=== PATIENT | male | born 1985 | race African-American/Black ===

== ENCOUNTER 2020-05-06 19:12 | Emergency (ER) | payer MEDICARE, MEDICAID, SELFPAY ==
[2020-05-06 19:13] VITALS: BP 156/103; PULSE 133; RESP 18; TEMP 36.6; O2SAT 98; BMI 23.3
--- NOTE | 2020-05-06 20:52 | ED.DCSUM_ITS ---
History of Present Illness Chief Complaint: Dental Informant: Patient Onset: Days Context: Gradual Onset Current Severity: Moderate Maximum Severity: Moderate Narrative: Presents with right-sided facial swelling for the past couple of days. States he had a mild tooth ache but nothing too severe. He then noted his face swelling. He does not believe he had a fever or chills. - Past Medical History (1) Diabetes Status: Chronic (2) Bipolar disorder Status: Chronic Past Medical History - Allergies and Home Meds Allergies/Adverse Reactions: Allergies No Known Allergies Allergy (Verified 05/06/20 20:18) Primary Care Physician: Care Physician,No Primary [Primary Care Provider] - Surgical History: no surgical history Smoking Status: Current every day smoker Review of Systems General: Denies: Chills, Fever Eyes: Denies: Visual changes - bilaterally ENT: Reports: - - Facial swelling. Denies: Bilateral ear pain Cardiovascular: Denies: Chest pain Respiratory: Denies: Dyspnea, Cough Gastrointestinal: Denies: Abdominal pain, Nausea, Vomiting, Diarrhea Musculoskeletal: Denies: Extremity Pain Neurological: Denies: Headache Hematologic: Denies: Easy bruising, Easy bleeding Allergy: Denies: Uticaria Physical Exam Vital Signs/Narrative: Vital Signs Temp Pulse Resp BP Pulse Ox 05/06/20 19:13 98 F 133 H 18 156/103 H 98 Inital Vital Signs reviewed: Yes General: Well nourished, Well developed Head: Normocephalic ENT: Moist mucous membranes, - - Facial swelling. No erythema. Right maxillary second molar is tender with a broken portion. Mild gum edema. No trismus. Normal posterior pharynx. Cardiovascular: Regular rate, Regular rhythm Respiratory: No distress, CTA bilaterally Abdomen: Soft, Nontender Skin: Normal color Neurological: Alert, Oriented x3 Psychological: Normal affect Diagnostic/Tx/Re-eval - Medical Decision Making Patient has a dentist in [place] that he will follow-up with. He will be treated with Pen-Vee K and a few [place] for breakthrough pain. He will continue ibuprofen at home. ED Disposition - Plan for ED Patient: Disposition: Home or Assisted Living Diagnosis: Dental abscess Instructions: ED ABSCESS DENTAL Prescriptions: Hydrocodone Bitart/Apap 5-325 [[place] 5MG-325MG] 1 tablet PO Q6H PRN PRN 3 Days #10 tablet PRN Reason: Pain Transmission Status: Sent to [id number] Penicillin V Potassium 500 mg PO 4X/DAY #40 tab Transmission Status: Pending to [id number] Additional Instructions: Follow-up with your dentist as soon as possible.
[2020-05-06] MEDS: HYDROcodone Bitartrate/Apap 5/325 Tablet PO (21:00)
[2020-05-06] MEDS: Penicillin Vk 250 MG Tablet 500 MG PO (21:00)
[2020-05-06 21:02] VITALS: BP 144/89; PULSE 88; RESP 17; O2SAT 98
== END 2020-05-06 21:03 | disposition home or self-care (01) ==
LOC: ED 20:58
PROVIDERS: Emergency Provider Emergency Medicine
DX: K04.7 Periapical abscess without sinus (principal); E11.9 Type 2 diabetes mellitus without complications; F31.9 Bipolar disorder, unspecified; F17.200 Nicotine dependence, unspecified, uncomplicated; Z79.84 Long term (current) use of oral hypoglycemic drugs; Z79.899 Other long term (current) drug therapy
CPT/HCPCS: 99283

== ENCOUNTER 2021-02-28 05:49 | Emergency (ER) | payer MEDICARE, MEDICAID, SELFPAY ==
[2021-02-28] VITALS (14 sets, daily range): BP systolic 120–155; BP diastolic 71–95; PULSE 77–104; RESP 12–18; TEMP 36.6–37.4; O2SAT 98–100; BMI 24.2
--- NOTE | 2021-02-28 05:51 | EKG12_ITS ---
Test Reason : DYSRHYTHMIA Blood Pressure : / mmHG Vent. Rate : 099 BPM Atrial Rate : 099 BPM P-R Int : 148 ms QRS Dur : 066 ms QT Int : 310 ms P-R-T Axes : 076 012 044 degrees QTc Int : 397 ms Normal sinus rhythm Septal [place], age undetermined, cannot be excluded Confirmed by BEN IVERSON, CARLOS ([id number]), editor index JOSEPH SINGH ([id number]) on 03/05/2021 8:26:31 AM Referred By: MOOSE Confirmed By:CARLOS CONTRERAS MD
--- NOTE | 2021-02-28 05:52 | ED.VIS.GEN ---
History of Present Illness Chief Complaint: Suicidal Informant: Patient Narrative: 35-year-old male with past medical history of bipolar disorder presents with concern for suicidal ideations worsening over the past 3 days. States that he lost his insurance and did not have any money for his medications. States is been intermittently over the past month or so. States that he has been having thoughts of killing himself with a knife. States he did have a knife one-point was going to cut his throat or his wrists. Denies any medication ingestion or attempts today. States he is a current smoker but denies any drug or alcohol abuse. Denies any other physical complaints at this time. Past Medical History - Allergies and Home Meds Allergies/Adverse Reactions: Allergies No Known Allergies Allergy (Verified 02/28/21 05:50) Primary Care Physician: Care Physician,No Primary [Primary Care Provider] - Prior records reviewed: Yes Past Medical History: - - bipolar disorder Surgical History: no surgical history Lives: Alone Smoking Status: Current every day smoker Alcohol: None Drugs: None Review of Systems General: Denies: Chills, Fever, Sweats Eyes: Denies: Visual changes - bilaterally, Diplopia ENT: Denies: Rhinorrhea, Sore throat Cardiovascular: Denies: Chest pain, Palpitations Respiratory: Denies: Dyspnea, Cough, Dyspnea on exertion Gastrointestinal: Denies: Abdominal pain, Nausea, Vomiting, Diarrhea, Melena, Hematochezia Genitourinary: Denies: Dysuria, Hematuria, Frequency Musculoskeletal: Denies: Back pain, Extremity Pain Skin: Denies: Rash, Wounds Neurological: Denies: Headache, Weakness, Numbness Psych: Reports: Suicidal thoughts, Suicidal ideations Physical Exam Inital Vital Signs reviewed: Yes General: Well nourished, Well developed, No Acute Distress Head: Normocephalic, Atraumatic Eyes: Perrl, EOMI ENT: Moist mucous membranes, No rhinorrhea Neck: Supple, Nontender Cardiovascular: Regular rate, Regular rhythm, No murmurs Respiratory: No distress, CTA bilaterally, Chest nontender Abdomen: Soft, Nontender, Nondistended, Normal bowel sounds Back: Nontender, Normal Inspection Extremities: Nontender, No edema Skin: Normal color, No rash Neurological: Alert, Oriented x3, Cranial nerves II-XII grossly intact, Normal Strength, Normal Sensation Psychological: Normal affect, Tearful Diagnostic/Tx/Re-eval Laboratory Data 02/28/21 02/28/21 02/28/21 05:53 06:00 06:00 WBC 10.1 RBC 4.99 Hgb 14.4 Hct 43.7 MCV 87.6 MCH 28.9 MCHC 33.0 RDW Std Deviation 39.6 RDW Coeff of [place] 12.3 Plt Count 388 MPV 9.4 Immature Gran % (Auto) 0.600 Neut % (Auto) 54.8 Lymph % (Auto) 33.9 [place] % (Auto) 8.3 Eos % (Auto) 1.7 Baso % (Auto) 0.7 Absolute Neuts (auto) 5.5 Absolute Lymphs (auto) 3.42 Nucleated RBC % 0 Sodium 127 L Potassium 4.1 Chloride 92 L Carbon Dioxide 27.0 Anion Gap 8 BUN 25 H Creatinine 1.45 H Estim Creat Clear Calc 64.17 Est GFR (MDRD) Af Amer 71 Est GFR (MDRD) Non-Af 59 L BUN/Creatinine Ratio 17.2 Glucose 551 H* Calcium 9.3 Urine Color Urine Clarity Urine pH Ur Specific [place] Urine Protein Urine Glucose (UA) Urine Ketones Urine Occult Blood Urine Nitrite Urine Bilirubin Urine Urobilinogen Ur Leukocyte Esterase Urine RBC Urine WBC Ur Squamous Epith Cells Urine Bacteria Urine Mucus Urine Opiates Screen Urine Methadone Screen Ur Barbiturates Screen Ur Phencyclidine Scrn Ur Amphetamines Screen U Methamphetamin-MDMA U Benzodiazepines Scrn Urine Cocaine Screen U Cannabinoids Screen Ur Drug Screen Comment Ethyl Alcohol POC Glucose > 500 H* 02/28/21 02/28/21 02/28/21 06:00 06:10 06:10 WBC RBC Hgb Hct MCV MCH MCHC RDW Std Deviation RDW Coeff of [place] Plt Count MPV Immature Gran % (Auto) Neut % (Auto) Lymph % (Auto) [place] % (Auto) Eos % (Auto) Baso % (Auto) Absolute Neuts (auto) Absolute Lymphs (auto) Nucleated RBC % Sodium Potassium Chloride Carbon Dioxide Anion Gap BUN Creatinine Estim Creat Clear Calc Est GFR (MDRD) Af Amer Est GFR (MDRD) Non-Af BUN/Creatinine Ratio Glucose Calcium Urine Color Yellow Urine Clarity Clear Urine pH 6.0 Ur Specific [place] 1.010 Urine Protein 15 H Urine Glucose (UA) 1000 H Urine Ketones 5 H Urine Occult Blood Negative Urine Nitrite Positive H Urine Bilirubin Negative Urine Urobilinogen Normal Ur Leukocyte Esterase Negative Urine RBC 0 SEEN Urine WBC 0 SEEN Ur Squamous Epith Cells 0 SEEN Urine Bacteria 0 SEEN Urine Mucus 0 SEEN Urine Opiates Screen NEGATIVE Urine Methadone Screen NEGATIVE Ur Barbiturates Screen NEGATIVE Ur Phencyclidine Scrn NEGATIVE Ur Amphetamines Screen POSITIVE H U Methamphetamin-MDMA NEGATIVE U Benzodiazepines Scrn NEGATIVE Urine Cocaine Screen NEGATIVE U Cannabinoids Screen NEGATIVE Ur Drug Screen Comment Ethyl Alcohol < 3.0 POC Glucose - Rhythm Strip Rhythm Strip: Sinus Rhythm Rate: 99 Ectopy: None - EKG Initial EKG Interpretation: Sinus Rhythm - Minute. FL interval of 148 ms. QTC of 397 ms. No evidence of ST elevation or depression at this time. - Medical Decision Making Patient appears well and nontoxic. Mild tachycardia upon arrival which is resolved on my exam. Normotensive. Physical exam benign. Patient is found to have significant hyperglycemia without DKA. Patient was previously on Metformin but cannot remember when. Patient's urine is positive for nitrites. Will be treated with Rocephin and 2 L of normal saline. Patient also found to have an acute renal insufficiency. Discussed this case with the hospitalist, Dr. Kern, who advised fluid resuscitation and rechecking the labs. If back to normal can be admitted safely to the psychiatric facility. Patient signed out to oncoming physician, Dr. Beach, at 0730. Stable at time of handoff. Impression: 1. Hyperglycemia 2. Acute renal insufficiency 3. UTI 4. Suicidal ideation ED Disposition - Plan for ED Patient: Disposition: Acute Care Hospital [facility] Referrals: Care Physician,No Primary [Primary Care Provider] -
[2021-02-28 05:55] LABS: Bedside Glucose > 500 mg/dL (70-110)
[2021-02-28 06:04] LABS: Absolute Lymphocyte Count 3.42 X10^3/uL (0.83-4.51); Absolute Neutrophil Count 5.5 X10^3/uL (2.0-7.7); Basophil# 0.07 X10^3/uL; Basophil% 0.7 % (0-1); Eosinophil# 0.17 X10^3/uL; Eosinophils% 1.7 % (0-5); Hematocrit 43.7 % (40-54); Hemoglobin 14.4 g/dL (13.0-16.5); Lymphocyte # 3.42 X10^3/ul (0.83-4.51); Lymphocyte % 33.9 % (19-41); Mean Corpuscular Hgb 28.9 pg (27.0-32.0); Mean Corpuscular Volume 87.6 fL (80-94); Mean Platelet Vol. 9.4 fl (6.2-12.0); Monocyte# 0.84 X10^3/uL; Monocyte% 8.3 % (0-10); NRBC Flagged by Analyzer 0 % (0-5); Neutrophil # 5.54 X10^3/uL (2.7-7.7); Neutrophil % 54.8 % (47-70); Platelet Count 388 K/mm3 (150-450); RBC Distribution Width CV 12.3 % (11.6-14.6); RBC Distribution Width SD 39.6 fl (35.1-43.9); Red Blood Count 4.99 M/mm3 (4.6-6.2); White Blood Count 10.1 K/mm3 (4.4-11.0)
[2021-02-28 06:15] LABS: Bacteria 0 SEEN /hpf (None Seen); Mucous, Urine 0 SEEN /hpf (<or=2+); Red Blood Cells-Urine 0 SEEN /hpf (0-5); Squamous Epithelial Cells - UA 0 SEEN /hpf (0-5); White Blood Cells 0 SEEN /hpf (0-5)
[2021-02-28] MEDS: 0.9% Normal Saline 1,000 ML 999 ML IV ×2 (06:15→06:48)
[2021-02-28 06:17] LABS: Color, Urine Yellow (Yellow); Glucose, Dipstick 1000 mg/dl (Normal); Ketone-Dipstick 5 mg/dl (Negative); Leukocyte Esterase-Dipstick Negative /ul (Negative); Nitrite-Dipstick Positive (Negative); Occult Blood-Urine Negative /ul (Negative); Protein-Dipstick 15 mg/dl (Negative); Urine Bilirubin Dipstick Negative (Negative); Urine Clarity Clear (Clear); Urine Urobilinogen Normal (Normal)
[2021-02-28 06:22] LABS: Alcohol, Blood (Medical)-Serum < 3.0 mg/dL; Anion Gap 8 (5-15); BUN 25 mg/dL (7-18); BUN/Creat Ratio 17.2 RATIO (10-20); Calcium,Total 9.3 mg/dL (8.5-10.1); Chloride 92 mmol/L (98-107); Creatinine, Serum 1.45 mg/dL (0.70-1.30); EST Glomerular Filtration Rate 59 mL/min (>60); Est Glom Filt Rate - Afr Amer 71 mL/min (>60); Estimated Creatinine Clearance 64.17 ml/min; Glucose 551 mg/dL (74-106); Potassium 4.1 mmol/L (3.5-5.1); Sodium Level 127 mmol/L (136-145)
[2021-02-28 06:29] LABS: Amphetamine Urine VISTA POSITIVE (<1000 ng/mL); Barbiturate Urine VISTA NEGATIVE (< 200 ng/mL); Benzodiazepine Urine VISTA NEGATIVE (< 200 ng/mL); Cocaine Urine VISTA NEGATIVE (< 300 ng/mL); Ecstacy Urine VISTA NEGATIVE (< 500 ng/mL); Methadone Urine VISTA NEGATIVE (< 300 ng/mL); PCP Urine VISTA NEGATIVE (< 25 ng/mL); THC Urine VISTA NEGATIVE (< 50 ng/mL); Vista UDS pH Range 5
[2021-02-28] MEDS: Ceftriaxone 1 GM/50 ML BAG IV (06:48)
[2021-02-28] MEDS: Insulin Lispro 100 UNIT/ML INSULN.PEN 10 UNIT SC ×3 (07:15→18:10)
[2021-02-28 08:27] LABS: Bedside Glucose 319 mg/dL (70-110)
[2021-02-28] MEDS: 0.9% Normal Saline 1,000 ML 150 ML IV (09:00)
[2021-02-28 09:54] LABS: Anion Gap 5 (5-15); BUN 20 mg/dL (7-18); BUN/Creat Ratio 20.8 RATIO (10-20); Calcium,Total 8.1 mg/dL (8.5-10.1); Chloride 104 mmol/L (98-107); Creatinine, Serum 0.96 mg/dL (0.70-1.30); EST Glomerular Filtration Rate 94 mL/min (>60); Est Glom Filt Rate - Afr Amer 114 mL/min (>60); Estimated Creatinine Clearance 96.92 ml/min; Glucose 288 mg/dL (74-106); Potassium 3.5 mmol/L (3.5-5.1); Sodium Level 136 mmol/L (136-145)
--- NOTE | 2021-02-28 11:03 | ED.RN ---
CALLED AND NOTIFIED CRISIS THAT THE PT IS MEDICALLY CLEARED
[2021-02-28 11:06] LABS: Bedside Glucose 293 mg/dL (70-110)
--- NOTE | 2021-02-28 11:07 | ED.RN ---
FAXED DEMOGRAPHIC TO [facility]
--- NOTE | 2021-02-28 11:28 | ED.RN ---
FAXED CHART TO [facility]IS[facility]
[2021-02-28 13:46] LABS: Bedside Glucose 405 mg/dL (70-110)
--- NOTE | 2021-02-28 13:48 | ED.RN ---
[facility]ISIS AT BEDSIDE
[2021-02-28 17:36] LABS: Bedside Glucose 297 mg/dL (70-110)
--- NOTE | 2021-02-28 19:38 | ED.RN ---
PENDING [facility]
--- NOTE | 2021-02-28 20:14 | ED.RN ---
PENDING AT [facility]
--- NOTE | 2021-02-28 23:07 | ED.RN ---
We monica till not doing the maintenance fluids IV at this time
[2021-03-01] VITALS (11 sets, daily range): BP systolic 131–146; BP diastolic 78–98; PULSE 71–94; RESP 13–84; TEMP 36.6–36.9; O2SAT 97–100
--- NOTE | 2021-03-01 05:02 | ED.RN ---
PENDING AT [facility]
[2021-03-01 05:03] LABS: CPK Total, Creatine Kinase 102 U/L (39-308)
[2021-03-01 06:45] LABS: Bedside Glucose 206 mg/dL (70-110)
--- NOTE | 2021-03-01 07:11 | ED.RN ---
states he has not taken any medications in months but had been on abilify and metformin, as added to current med list. States he took a little ortiz pill too but no sure of the name
[2021-03-01] MEDS: metFORMIN HCl 500 MG Tablet PO (08:05)
--- NOTE | 2021-03-01 08:43 | ED.RN ---
FAXED COVID SCREENING FORM AND NEGATIVE COVID TEST RESULT TO [facility]
--- NOTE | 2021-03-01 09:29 | ED.RN ---
FAXED PINK SLIP TO [facility]
--- NOTE | 2021-03-01 10:26 | CM.ED ---
SOCIAL WORK Received call from Kandace with Crisis. Patient accepted to [facility] by Dr. Zambrano to the Dual Dx Unit. Nurse to call report to [phone]. Squaring Machine Operator to call report. Plan: [facility] Zeke Rehman, JUNIOR BUSINESS ANALYST, AIR EXPORT OPERATIONS AGENT
== END 2021-03-01 11:43 ==
PROVIDERS: Emergency Medicine; Emergency Provider Emergency Medicine
DX: F31.9 Bipolar disorder, unspecified (principal); R45.851 Suicidal ideations; N39.0 Urinary tract infection, site not specified; Z20.822 Contact with and (suspected) exposure to COVID-19; R73.9 Hyperglycemia, unspecified; N28.9 Disorder of kidney and ureter, unspecified; F17.200 Nicotine dependence, unspecified, uncomplicated; Z79.84 Long term (current) use of oral hypoglycemic drugs; Z79.899 Other long term (current) drug therapy
CPT/HCPCS: 36415; 80048; 80307; 81001; 82077; 82550; 82962; 85025; 87086; 87426; 93005; 96361; 96374; 99285; J7030; A4216

== ENCOUNTER 2024-01-25 18:51 | Emergency (ER) | payer MEDICARE, MEDICAID, SELFPAY ==
[2024-01-25] VITALS (10 sets, daily range): BP systolic 165–202; BP diastolic 90–125; PULSE 85–109; RESP 12–20; TEMP 35.9–36.7; O2SAT 93–100; BMI 22.5
[2024-01-25 20:12] LABS: Absolute Lymphocyte Count 2.82 X10^3/uL (0.83-4.51); Absolute Neutrophil Count 9.3 X10^3/uL (2.0-7.7); Basophil# 0.06 X10^3/uL; Basophil% 0.5 % (0-1); Eosinophil# 0.05 X10^3/uL; Eosinophils% 0.4 % (0-5); Hematocrit 44.7 % (40-54); Lymphocyte # 2.82 X10^3/ul (0.83-4.51); Lymphocyte % 21.7 % (19-41); Mean Corp Hgb Conc 33.6 g/dL (32-36); Mean Corpuscular Hgb 28.5 pg (27.0-32.0); Mean Corpuscular Volume 84.8 fL (80-94); Mean Platelet Vol. 9.7 fl (6.2-12.0); Monocyte# 0.69 X10^3/uL; Monocyte% 5.3 % (0-10); NRBC Flagged by Analyzer 0 % (0-5); Neutrophil % 71.6 % (47-70); Platelet Count 365 K/mm3 (150-450); RBC Distribution Width CV 12.9 % (11.6-14.6); RBC Distribution Width SD 39.9 fl (35.1-43.9); Red Blood Count 5.27 M/mm3 (4.6-6.2)
--- NOTE | 2024-01-25 20:21 | ED.VIS.GI ---
HPI HPI - GI History of Present Illness Chief Complaint: Abd Pain Detail of Chief Complaint: Abdominal pain with nausea and vomiting x 15 Informant: patient and spouse/S.O. Abdominal Pain/Flank Pain Onset: Yesterday Context: Sudden Onset Timing: Continuous Quality: Aching and Dull Location: RUQ and RLQ Current Severity: Moderate Maximum Severity: Severe Worsened by: Car ride and Movement Relieved by: Nothing Nausea/Vomiting/Emesis GI Symptom: Positive for Nausea and Vomiting (Per 15 times since midnight) Diarrhea/Melena/Hematochezia GI Symptom: Negative for Diarrhea, Melena or Hematochezia Associated Symptoms Associated Symptoms: Negative for Dysuria, Frequency, Hematuria or Urgency Narrative Narrative: Patient is a 38-year-old male with past medical history of type 2 diabetes and bipolar affective disorder who presents with abdominal pain that started upper abdomen and now also complains of right lower quadrant abdominal pain. Has had nausea vomiting x 10-15 per . He has no appetite. He cannot find a position of comfort. He denies flank pain. He denies history of renal or ureterolithiasis. He denies dysuria, frequency, urgency or hematuria. He says movement causes him pain. The car right also caused him pain. He denied fever or chills. Denies headache, visual, ocular auditory symptoms. He denies cardiac or respiratory symptoms. He denies myalgias or arthralgias. He had no ill contacts. He has not noted skin lesions. He denies trauma. Prior similar symptoms: No Recent Illness/Hospitalization: No PFSH PFS Medical History (Updated 01/25/24 @ 23:[address] Ryan Mccracken MD) Bipolar 1 disorder Diabetes mellitus Schizo-affective schizophrenia Home Medications glipizide 10 mg tablet, extended release 24 hr 10 mg PO DAILY 01/25/24 [History Last Taken Unknown] lisinopril 10 mg tablet 10 mg PO DAILY #30 tabs 01/25/24 [Rx Last Taken Unknown] Allergy/AdvReac Type Severity Reaction Status Date / Time No Known Allergies Allergy Verified 02/28/21 05:50 Social History (Updated 01/25/24 @ 21:[address] Ryan Mccracken MD) household members: spouse Smoking Status: Current every day smoker tobacco type: cigarettes ROS ROS ED Constitutional Constitutional ED: Reports chills and sweats; Denies fever(s) or subjective ENT ENT ED: Denies ear pain, rhinorrhea or sore throat Cardiovascular Cardiovascular: Denies chest pain, orthopnea, palpitations, paroxysmal nocturnal dyspnea or racing heartbeat Respiratory/Chest Respiratory/Chest: Denies cough, dyspnea, dyspnea on exertion, orthopnea, paroxysmal nocturnal dyspnea or sputum Gastrointestinal Gastrointestinal: Reports abdominal pain and nausea; Denies constipation, diarrhea or melena Genitourinary Genitourinary ED: Denies dysuria, hematuria or urinary frequency Musculoskeletal Musculoskeletal: Denies arthralgias, back pain, myalgias or neck pain Integumentary Denies rash Neurologic Neurologic: Denies headache(s), paresthesias or weakness Psychiatric Psychiatric: Denies anxiety or depression Endocrine Endocrinology: Denies polydipsia, polyphagia or polyuria Hematologic/Lymphatic Hematologic/Lymphatic: Denies easy bleeding or easy bruising EXAM Physical Exam Const Vital Signs: 01/25/24 18:51 01/25/24 19:55 01/25/24 20:55 Temperature 96.6 F L Temperature Source Temporal Pulse Rate 102 H 102 H 109 H Respiratory Rate 20 H 20 H 18 Blood Pressure 195/125 H 165/90 H 190/102 H Blood Pressure Mean 148 115 131 Pulse Ox 100 99 100 Oxygen Delivery Method Room Air Room Air Room Air 01/25/24 21:00 01/25/24 21:12 01/25/24 21:56 Temperature 97.5 F L Temperature Source Oral Pulse Rate 94 93 99 Respiratory Rate 12 16 18 Blood Pressure 202/117 H 186/111 H 182/96 H Blood Pressure Mean 145 136 124 Pulse Ox 99 93 100 Oxygen Delivery Method Room Air Room Air Room Air 01/25/24 22:19 Temperature 97.5 F L Temperature Source Pulse Rate 89 Respiratory Rate 20 H Blood Pressure 178/108 H Blood Pressure Mean 131 Pulse Ox 99 Oxygen Delivery Method Patient's had multiple elevated blood pressure readings. This may be due to pain. He is not any hypertensive meds. Since he is tachycardic we will give low-dose of labetalol. Positive well nourished and well developed Constitutional Narrative: Patient appears uncomfortable and ill. General Appearance ED: well developed; Negative for NAD or pallor HEENT Reports TM's clear and dry mucous membranes normocephalic and atraumatic Tympanic Membrane ED: Yes TM's clear Mouth ED: Yes dry mucous membranes Mouth: dry mucous membranes Eyes PERRL and EOMs intact bilaterally General Eye ED: Negative for pale conjunctiva or scleral icterus Resp normal respiratory effort and clear to auscultation bilaterally Cardio regular rhythm, S1 normal heart sound and S2 normal heart sound Rate: tachycardic GI no masses; Negative for non-tender or non-distended GI Narrative: Wrist template upper abdomen more so than lower. Inspection: abdominal distention Auscultation: hypoactive bowel sounds Palpation: tender RLQ (Tenderness is greater right lower quadrant and in the proximity of McBurney's point.) and RUQ and guarding RLQ; Negative for rigid, hepatomegaly, splenomegaly, hernia, mass or pulsatile mass Back/Spine no CVA tenderness Back/Spine Narrative: Inspection of the back is normal. Extremity full ROM General Extremety ED: Negative for edema or tenderness General Extremity: Negative for edema Neuro CN's II-XII intact bilaterally and moves all extremities Sensorium / Orientation: alert Psych mental status grossly normal and thought process normal Skin no wounds General Skin Exam: Negative for jaundice or pallor Lesions: no lesions Rashes: no rashes MDM MDM MDM Narrative Medical decision making narrative: Differential diagnosis is gastritis, abdominal pain unknown etiology, atypical presentation for cholelithiasis with colic, appendicitis, ureterolithiasis. Will obtain CBC, hepatic profile, lipase and electrolyte panel. Patient has been medicated with opiate analgesic as well as Zofran for his nausea and vomiting. Lab Data Attestation: I reviewed the patient's lab results. Lab results narrative: Count is elevated with shift. There is no bandemia. Hepatic profile is unremarkable. Lipase is normal. Labs: Laboratory Results - last 24 hr 01/25/24 01/25/24 01/25/24 19:50 19:50 19:50 WBC 13.0 H RBC 5.27 Hgb 15.0 Hct 44.7 MCV 84.8 MCH 28.5 MCHC 33.6 RDW Std Deviation 39.9 RDW Coeff of [place] 12.9 Plt Count 365 MPV 9.7 Immature Gran % (Auto) 0.500 Neut % (Auto) 71.6 H Lymph % (Auto) 21.7 [place] % (Auto) 5.3 Eos % (Auto) 0.4 Baso % (Auto) 0.5 Absolute Neuts (auto) 9.3 H Absolute Lymphs (auto) 2.82 Nucleated RBC % 0 Sodium 136 Potassium 3.8 Chloride 101 Carbon Dioxide 21.0 Anion Gap 14 BUN 19 H Creatinine 1.05 Estim Creat Clear Calc 85.54 Est GFR (MDRD) Af Amer 102 Est GFR (MDRD) Non-Af 84 BUN/Creatinine Ratio 18.1 Glucose 278 H Calcium 9.6 Total Bilirubin 0.50 0.50 Direct Bilirubin 0.06 AST 31 31 ALT 18 Alkaline Phosphatase Total Protein Albumin Globulin Albumin/Globulin Ratio Lipase Urine Color Urine Clarity Urine pH Ur Specific [place] Urine Protein Urine Glucose (UA) Urine Ketones Urine Occult Blood Urine Nitrite Urine Bilirubin Urine Urobilinogen Ur Leukocyte Esterase Urine RBC Urine WBC Ur Squamous Epith Cells Urine Bacteria Urine Mucus 01/25/24 01/25/24 01/25/24 19:50 19:50 19:50 WBC RBC Hgb Hct MCV MCH MCHC RDW Std Deviation RDW Coeff of [place] Plt Count MPV Immature Gran % (Auto) Neut % (Auto) Lymph % (Auto) [place] % (Auto) Eos % (Auto) Baso % (Auto) Absolute Neuts (auto) Absolute Lymphs (auto) Nucleated RBC % Sodium Potassium Chloride Carbon Dioxide Anion Gap BUN Creatinine Estim Creat Clear Calc Est GFR (MDRD) Af Amer Est GFR (MDRD) Non-Af BUN/Creatinine Ratio Glucose Calcium Total Bilirubin Direct Bilirubin AST ALT 18 Alkaline Phosphatase 89 92 Total Protein 9.2 H 9.2 H Albumin 4.2 Globulin Albumin/Globulin Ratio Lipase Urine Color Urine Clarity Urine pH Ur Specific [place] Urine Protein Urine Glucose (UA) Urine Ketones Urine Occult Blood Urine Nitrite Urine Bilirubin Urine Urobilinogen Ur Leukocyte Esterase Urine RBC Urine WBC Ur Squamous Epith Cells Urine Bacteria Urine Mucus 01/25/24 01/25/24 01/25/24 19:50 19:50 22:00 WBC RBC Hgb Hct MCV MCH MCHC RDW Std Deviation RDW Coeff of [place] Plt Count MPV Immature Gran % (Auto) Neut % (Auto) Lymph % (Auto) [place] % (Auto) Eos % (Auto) Baso % (Auto) Absolute Neuts (auto) Absolute Lymphs (auto) Nucleated RBC % Sodium Potassium Chloride Carbon Dioxide Anion Gap BUN Creatinine Estim Creat Clear Calc Est GFR (MDRD) Af Amer Est GFR (MDRD) Non-Af BUN/Creatinine Ratio Glucose Calcium Total Bilirubin Direct Bilirubin AST ALT Alkaline Phosphatase Total Protein Albumin 4.2 Globulin 5.0 H 5.0 H Albumin/Globulin Ratio 0.8 L Lipase 37 Urine Color Yellow Urine Clarity Clear Urine pH 7.0 Ur Specific [place] 1.010 Urine Protein 30 H Urine Glucose (UA) 1000 H Urine Ketones 150 A* Urine Occult Blood 25 H Urine Nitrite Negative Urine Bilirubin Negative Urine Urobilinogen Normal Ur Leukocyte Esterase Negative Urine RBC 0-5 SEEN Urine WBC 0 SEEN Ur Squamous Epith Cells 0 SEEN Urine Bacteria 0 SEEN Urine Mucus 0 SEEN Radiography Diagnostic Testing: Clinical Impression(s) from Imaging Studies Abdomen/Pelvis CT 01/25/24 21:25 IMPRESSION: 1. Urinary bladder distention may be transient/physiologic. Correlate clinically. 2. Mildly prominent bilateral inguinal lymph nodes, perhaps reactive. Electronically Signed: Gurdeep Osuna DO at 22:04 EDT , Management Discussion w/another healthcare provider: Hospitalist (Dr. Hollins was made aware for admission to [facility] and Display Artist (Case discussed with Dr. Argueta. Is made aware of patient's findings, abdominal exam, white count and CT findings. Recommend admission with IV antibiotics and he will see him in consultation.) Treatment and Re-Evaluation :: With greatest area of discomfort right lower quadrant with elevated white count normal liver enzymes will obtain CT of the abdomen and pelvis with IV contrast to assess for appendicitis versus mesenteric adenitis versus regional colitis Comments:: Patient and were informed of results. He was asked regarding cannabis use. He does use cannabis regularly. I informed him that this may be due to the cannabis. He does not have history hypertension. Patient had numerous elevated blood pressure readings even though he is no longer having symptoms. Will start on low-dose of lisinopril. Discharge Plan Triage Chief Complaint: Abd Pain ED Provider: Ryan Mccracken Dx/Rx/DC Orders Clinical Impression: Cannabis hyperemesis syndrome concurrent with and due to cannabis abuse, Acute dehydration, Type 2 diabetes mellitus with hyperglycemia, Acute prerenal azotemia, Ketosis, Hypertension, Abdominal pain, acute, generalized Instructions: Cannabinoid Hyperemesis Syndrome, ED Dehydration (Adult), ED Hypertension New Begin Treatment Prescriptions: New lisinopril 10 mg tablet 10 mg PO DAILY Qty: 30 0RF No Action glipizide 10 mg tablet extended release 24hr 10 mg PO DAILY Primary Care Provider: Heena Barbosa Referrals: Heena Barbosa, GEOSPATIAL DEVELOPER-C [Primary Care Provider] - 1-2 Weeks Disposition Disposition: Home, Self Care
[2024-01-25 20:55] LABS: ALB/GLOB Ratio 0.8 RATIO (0.9-2.4); AST(SGOT) 31 U/L (15-37); Alanine Aminotransfer ALT/SGPT 18 U/L (16-61); Albumin, Serum 4.2 g/dL (3.2-5.0); Alkaline Phosphatase 89 U/L (45-117); Anion Gap 14 (5-15); BUN 19 mg/dL (7-18); BUN/Creat Ratio 18.1 RATIO (10-20); Calcium,Total 9.6 mg/dL (8.5-10.1); Chloride 101 mmol/L (98-107); Creatinine, Serum 1.05 mg/dL (0.70-1.30); EST Glomerular Filtration Rate 84 mL/min (>60); Est Glom Filt Rate - Afr Amer 102 mL/min (>60); Estimated Creatinine Clearance 85.54 ml/min; Glucose 278 mg/dL (74-106); Potassium 3.8 mmol/L (3.5-5.1); Protein, Total 9.2 g/dL (6.4-8.2); Sodium Level 136 mmol/L (136-145)
[2024-01-25] MEDS: Morphine 4 MG/ML Syringe IV ×2 (20:57→22:29)
[2024-01-25] MEDS: Ondansetron 4 MG/2 ML Vial IV (20:57)
[2024-01-25] MEDS: 0.9% Normal Saline (1000mL) 1,000 ML 1000 ML IV (20:57)
[2024-01-25 21:09] LABS: AST(SGOT) 31 U/L (15-37); Alanine Aminotransfer ALT/SGPT 18 U/L (16-61); Albumin, Serum 4.2 g/dL (3.2-5.0); Alkaline Phosphatase 92 U/L (45-117); Bilirubin, Direct 0.06 mg/dL (0.00-0.30); Lipase 37 U/L (13-75); Protein, Total 9.2 g/dL (6.4-8.2)
--- NOTE | 2024-01-25 21:25 | CT_ITS ---
EXAM: CT ABDOMEN AND PELVIS WITH INTRAVENOUS CONTRAST CLINICAL INDICATION: Leukocytosis and right lower quadrant abdominal pa TECHNIQUE: Helically acquired images were obtained of the abdomen and pelvis with intravenous contrast. This CT exam was performed using one or more of the following dose reduction techniques: automated exposure control, adjustment of the mA and/or kV according to patient size, and/or use of iterative reconstruction technique. CONTRAST: IV 100mL Isovue-300 COMPARISON: CT abdomen and pelvis, 01/29/2015. FINDINGS: LOWER THORAX: No significant abnormality. Lung bases are clear. No cardiomegaly. No significant pericardial effusion. ABDOMEN: LIVER: No significant abnormality. Homogeneous. No focal mass. GALLBLADDER AND BILE DUCTS: No significant abnormality. No calcified gallstones. No gallbladder distention or wall edema. No intra- or extrahepatic biliary ductal dilation. PANCREAS: No significant abnormality. No focal cystic or solid mass. SPLEEN: No significant abnormality. Normal size without focal cystic or solid mass. ADRENALS: No significant abnormality. No nodules. KIDNEYS AND URETERS: No significant abnormality. Normal renal size and position. No hydronephrosis. STOMACH AND BOWEL: No significant abnormality. No stomach or bowel distention. No focal inflammatory change. PELVIS: APPENDIX: Normal appendix in the right lower quadrant. BLADDER: Urinary bladder distention may be transient/physiologic. REPRODUCTIVE: Normal as visualized. No mass. ABDOMEN and PELVIS: INTRAPERITONEAL SPACE: No significant abnormality. No ascites or other fluid collection. No free air. BONES/JOINTS: No significant abnormality. No suspicious lytic or blastic abnormality. SOFT TISSUES: No significant abnormality. No discrete abdominal or pelvic wall hernia. VASCULATURE: No significant abnormality. Abdominal aorta is non-dilated. LYMPH NODES: Mildly prominent bilateral inguinal lymph nodes, perhaps reactive. CT/Abdomen/Pelvis W IV Cont ONLY IMPRESSION: 1. Urinary bladder distention may be transient/physiologic. Correlate clinically. 2. Mildly prominent bilateral inguinal lymph nodes, perhaps reactive. Electronically Signed: Gurdeep Osuna DO at 22:04 EDT ,
[2024-01-25] MEDS: Labetalol (Prefilled) 20 MG/4 ML 10 MG IV (21:54)
[2024-01-25 22:04] LABS: Bacteria 0 SEEN /hpf (None Seen); Mucous, Urine 0 SEEN /hpf (<or=2+); Squamous Epithelial Cells - UA 0 SEEN /hpf (0-5); White Blood Cells 0 SEEN /hpf (0-5)
[2024-01-25 22:06] LABS: Color, Urine Yellow (Yellow); Glucose, Dipstick 1000 mg/dl (Normal); Leukocyte Esterase-Dipstick Negative /ul (Negative); Nitrite-Dipstick Negative (Negative); Occult Blood-Urine 25 /ul (Negative); Protein-Dipstick 30 mg/dl (Negative); Urine Bilirubin Dipstick Negative (Negative); Urine Clarity Clear (Clear); Urine Urobilinogen Normal (Normal)
[2024-01-25 22:10] LABS: Ketone-Dipstick 150 mg/dl (Negative)
[2024-01-25 22:11] LABS: Red Blood Cells-Urine 0-5 SEEN /hpf (0-5)
[2024-01-25] MEDS: Lisinopril 10 MG Tablet PO (23:20)
== END 2024-01-25 23:42 | disposition home or self-care (01) ==
PROVIDERS: Emergency Provider Emergency Medicine; PCP Nurse Practitioner Family; Visit Provider Emergency Medicine
DX: R11.2 Nausea with vomiting, unspecified (principal); F25.9 Schizoaffective disorder, unspecified; F31.9 Bipolar disorder, unspecified; E11.65 Type 2 diabetes mellitus with hyperglycemia; E88.89 Other specified metabolic disorders; R10.84 Generalized abdominal pain; F12.10 Cannabis abuse, uncomplicated; I10 Essential (primary) hypertension; E86.0 Dehydration; F17.210 Nicotine dependence, cigarettes, uncomplicated
CPT/HCPCS: 96361; 96374; 96375; 96376; 99285; 74177; 80053; 80076; 81001; 83690; 85025; J7030; J7040; Q9967; J2405

== ENCOUNTER 2024-01-27 11:29 | Inpatient (IN) | payer MEDICARE, MEDICAID, SELFPAY ==
[2024-01-27] VITALS (12 sets, daily range): BP systolic 132–192; BP diastolic 87–108; PULSE 78–133; RESP 15–31; TEMP 36.6–37.2; O2SAT 96–100; BMI 22.1; BMI 22.3
--- NOTE | 2024-01-27 11:48 | US_ITS ---
STUDY: ABDOMINAL ULTRASOUND - RIGHT UPPER QUADRANT REASON FOR VISIT: Male, 38 years old right upper quadrant pain. TECHNIQUE: Ultrasound evaluation of the right upper quadrant was performed with real-time and static ortiz-scale imaging. TECHNICAL QUALITY: Adequate. COMPARISON: Comparison is made with prior CT scan of the abdomen the January 25, 2024. FINDINGS: Liver: The liver measures 15 cm. There is normal echogenicity of the liver. The bile ducts are within normal limits. There is hepatic color flow. The direction of portal flow is hepatopetal. There is no demonstrated mass lesion. Gallbladder: Normal distended gallbladder. The gallbladder wall measures 4 mm. There is a negative sonographic Mata''s sign. There is no pericholecystic fluid. There are no gallstones. Common Bile Duct (C.B.D.): The common bile duct measures 2 mm. Pancreas: Normal size of the head, body and tail of the pancreas. There is normal echogenicity of the pancreas. There is no demonstrated pancreatic mass or cyst. Right Kidney: Normal size of the right kidney. The right kidney measures 11.1 cm x 5.8 cm x 5.8 cm. Normal renal cortex. The right cortex measures 1.5 cm. There is no demonstrated renal mass or cyst. There is no right hydronephrosis. US/Gallbladder IMPRESSION: Normal right upper quadrant ultrasound examination. Electronically Signed: Nicola Her MD at 13:10 EDT ,
--- NOTE | 2024-01-27 12:02 | EDS_ITS ---
HPI <RIGOBERTO Ward - Last Filed: 01/27/24 15:29> HPI - GI History of Present Illness Chief Complaint: Abd Pain Narrative Narrative: Patient presenting today due to right upper quadrant abdominal pain that he has had over the past 4 days. He also reports nausea and vomiting. He reports that he was here on 01/25/2024 and had a workup done and was told that this was likely due to his cannabis use, however he has never had symptoms like this before and reports that he has not used cannabis in a week. He then went to [place] [facility] yesterday where they performed another CT scan, fabricio blood, and gave him IV fluids and nausea medication. He did not feel as bad yesterday and was able to tolerate fluids and was discharged home. Today he saw his PCP who encouraged him to come back into the ER. He has had very little to eat/drink over the past few days due to his pain and nausea. He denies any history of abdominal surgeries, fevers, chills, hematemesis, and diarrhea. PFSH <RIGOBERTO Ward - Last Filed: 01/27/24 15:29> [facility] Medical History Bipolar 1 disorder Diabetes mellitus Schizo-affective schizophrenia Home Medications glipizide 10 mg tablet, extended release 24 hr 10 mg PO DAILY BLOOD SUGARS [History Last Taken 01/25/24] lisinopril 10 mg tablet 10 mg PO DAILY BLOOD PRESSURE #30 tabs 01/25/24 [Rx Last Taken Unknown] pioglitazone 15 mg tablet 15 mg PO DAILY BLOOD SUGARS 01/27/24 [History Last Taken 01/25/24] Allergy/AdvReac Type Severity Reaction Status Date / Time No Known Allergies Allergy Verified 01/27/24 11:30 Family History unable to obtain Social History household members: spouse Smoking Status: Current some day smoker tobacco type: cigarettes ROS <RIGOBERTO Ward - Last Filed: 01/27/24 15:29> ROS ED Constitutional Constitutional ED: Denies chills or fever(s) Cardiovascular Cardiovascular: Denies chest pain Respiratory/Chest Respiratory/Chest: Denies cough or dyspnea Gastrointestinal Gastrointestinal: Reports abdominal pain, nausea and vomiting; Denies constipation, diarrhea or melena Genitourinary Genitourinary ED: Denies dysuria, hematuria or urinary urgency Musculoskeletal Musculoskeletal: Denies arthralgias or myalgias Integumentary Denies rash Neurologic Neurologic: Denies weakness EXAM <RIGOBERTO Ward - Last Filed: 01/27/24 15:29> Physical Exam Const Vital Signs: 01/27/24 11:30 01/27/24 12:18 01/27/24 13:42 Temperature 99 F 98.0 F Temperature Source Temporal Oral Pulse Rate 133 H 120 H 92 Respiratory Rate 26 H 31 H 15 Blood Pressure 174/106 H 192/108 H 181/102 H Blood Pressure Mean 128 136 128 Pulse Ox 100 100 99 Oxygen Delivery Method Room Air Room Air Room Air 01/27/24 13:58 01/27/24 14:01 01/27/24 15:00 Temperature 97.8 F Temperature Source Axillary Pulse Rate 85 88 102 H Respiratory Rate 17 16 Blood Pressure 168/98 H 132/95 H 183/108 H Blood Pressure Mean 121 107 133 Pulse Ox 98 98 Oxygen Delivery Method Room Air Room Air Positive well nourished, well developed and no apparent distress General Appearance ED: well developed HEENT Reports normocephalic and head/scalp atraumatic Mouth ED: Yes moist mucous membranes normal Eyes PERRL and EOMs intact bilaterally Neck full ROM and supple Chest Wall inspection of chest normal Resp normal respiratory effort and clear to auscultation bilaterally Cardio regular rate and regular rhythm GI soft to palpation, non-distended and no masses GI Narrative: Tenderness to the right upper quadrant, no rigidity, guarding, or peritoneal signs. Negative Mata sign. Back/Spine normal ROM and normal to inspection Extremity normal to inspection and full ROM Neuro oriented x3, CN's II-XII intact bilaterally, moves all extremities, no focal motor deficits and no sensory deficits noted Sensorium / Orientation: awake and alert Psych mental status grossly normal and thought process normal Skin no rashes or lesions noted and no wounds <Dr. Connie Hermosillo MD - Last Filed: 01/27/24 15:19> Physical Exam Const Vital Signs: 01/27/24 11:30 01/27/24 12:18 01/27/24 13:42 Temperature 99 F 98.0 F Temperature Source Temporal Oral Pulse Rate 133 H 120 H 92 Respiratory Rate 26 H 31 H 15 Blood Pressure 174/106 H 192/108 H 181/102 H Blood Pressure Mean 128 136 128 Pulse Ox 100 100 99 Oxygen Delivery Method Room Air Room Air Room Air 01/27/24 13:58 01/27/24 14:01 01/27/24 15:00 Temperature 97.8 F Temperature Source Axillary Pulse Rate 85 88 102 H Respiratory Rate 17 16 Blood Pressure 168/98 H 132/95 H 183/108 H Blood Pressure Mean 121 107 133 Pulse Ox 98 98 Oxygen Delivery Method Room Air Room Air [facility] <RIGOBERTO Ward - Last Filed: 01/27/24 15:29> [facility] Narrative Medical decision making narrative: Patient presenting with right upper quadrant abdominal pain he has had over the past 4 days. Increased nausea and vomiting, is concerned for dehydration as she is having a hard time getting him to eat/drink. This is his third visit now in a emergency department. The last time he was here on 01/24 the note did mention that the ED physician had spoke to GI as well as the hospitalist and that he was going to be admitted, however he was discharged home, patient does not know why he was discharged home. He does appear uncomfortable, he is tachycardic and hypertensive. He will be given IV fluids, Zofran, morphine, and Toradol. Labs will be obtained as well as a right upper quadrant ultrasound. Labs showed a WBC of 12.9, sodium 132, BUN 22, glucose 322. When patient was here on 01/24 the attending did speak with Dr. Argueta who recommended starting ciprofloxacin and Flagyl, this will be given today. Gallbladder ultrasound unremarkable. On examination patient is comfortably sleeping and looks much improved. Blood pressure was elevated, I did order labetalol to give but blood pressure did improve and this was put on hold. Given this is his third ER visit in the past 3 days I do think he would benefit from admission to the hospital. Will speak with the hospitalist to have patient admitted in stable condition. Lab Data Attestation: I reviewed the patient's lab results. Labs: Laboratory Results - last 24 hr 01/27/24 12:15 WBC 12.9 H RBC 5.32 Hgb 14.9 Hct 44.8 MCV 84.2 MCH 28.0 MCHC 33.3 RDW Std Deviation 40.4 RDW Coeff of [place] 13.2 Plt Count 375 MPV 9.8 Immature Gran % (Auto) 0.400 Neut % (Auto) 65.5 Lymph % (Auto) 26.1 Hale % (Auto) 7.0 Eos % (Auto) 0.5 Baso % (Auto) 0.5 Absolute Neuts (auto) 8.4 H Absolute Lymphs (auto) 3.36 Nucleated RBC % 0 Sodium 132 L Potassium 4.0 Chloride 100 Carbon Dioxide 17.0 L Anion Gap 15 BUN 22 H Creatinine 1.15 Estim Creat Clear Calc 76.75 Est GFR (MDRD) Af Amer 91 Est GFR (MDRD) Non-Af 76 BUN/Creatinine Ratio 19.1 Glucose 322 H Calcium 9.6 Total Bilirubin 0.70 AST 17 ALT 15 L Alkaline Phosphatase 91 Total Protein 9.2 H Albumin 4.2 Globulin 5.0 H Albumin/Globulin Ratio 0.8 L Lipase 47 Urine Color Yellow Urine Clarity Clear Urine pH 5.0 Ur Specific [place] 1.025 Urine Protein 30 H Urine Glucose (UA) 1000 H Urine Ketones 150 A* Urine Occult Blood 50 H Urine Nitrite Negative Urine Bilirubin Negative Urine Urobilinogen Normal Ur Leukocyte Esterase Negative Urine RBC 5-10 SEEN Urine WBC 0 SEEN Ur Squamous Epith Cells 0 SEEN Urine Bacteria 0 SEEN Urine Mucus 0 SEEN <Dr. Connie Hermosillo MD - Last Filed: 01/27/24 15:19> [facility] Lab Data Labs: Laboratory Results - last 24 hr 01/27/24 12:15 WBC 12.9 H RBC 5.32 Hgb 14.9 Hct 44.8 MCV 84.2 MCH 28.0 MCHC 33.3 RDW Std Deviation 40.4 RDW Coeff of [place] 13.2 Plt Count 375 MPV 9.8 Immature Gran % (Auto) 0.400 Neut % (Auto) 65.5 Lymph % (Auto) 26.1 Hale % (Auto) 7.0 Eos % (Auto) 0.5 Baso % (Auto) 0.5 Absolute Neuts (auto) 8.4 H Absolute Lymphs (auto) 3.36 Nucleated RBC % 0 Sodium 132 L Potassium 4.0 Chloride 100 Carbon Dioxide 17.0 L Anion Gap 15 BUN 22 H Creatinine 1.15 Estim Creat Clear Calc 76.75 Est GFR (MDRD) Af Amer 91 Est GFR (MDRD) Non-Af 76 BUN/Creatinine Ratio 19.1 Glucose 322 H Calcium 9.6 Total Bilirubin 0.70 AST 17 ALT 15 L Alkaline Phosphatase 91 Total Protein 9.2 H Albumin 4.2 Globulin 5.0 H Albumin/Globulin Ratio 0.8 L Lipase 47 Urine Color Yellow Urine Clarity Clear Urine pH 5.0 Ur Specific [place] 1.025 Urine Protein 30 H Urine Glucose (UA) 1000 H Urine Ketones 150 A* Urine Occult Blood 50 H Urine Nitrite Negative Urine Bilirubin Negative Urine Urobilinogen Normal Ur Leukocyte Esterase Negative Urine RBC 5-10 SEEN Urine WBC 0 SEEN Ur Squamous Epith Cells 0 SEEN Urine Bacteria 0 SEEN Urine Mucus 0 SEEN Treatment and Re-Evaluation :: Patient seen and evaluated with TITA. I personally interviewed and examined the patient. I was involved in all aspects of patient's orders, interpretation of results, and treatment. Patient returns to the ER secondary to continued abdominal pain with nausea and vomiting. He was seen in the ER 2 days ago. Plan had been to admit him with IV antibiotics given some lymphadenopathy in his pelvis, however he was inadvertently discharged. Patient went to [place] ER yesterday where he got IV fluids and insulin. He presented to PCPs office this morning with continued vomiting and was sent back for admission. Patient complains of right upper q uadrant abdominal pain. Patient lying in bed in obvious discomfort. Head and neck examination unremarkable. Heart is tachycardic and regular. Lung sounds are grossly clear. Abdomen is soft with tenderness to the right upper quadrant. No palpable masses. He has no guarding or rebound at the time of my exam. He has mild tenderness in the suprapubic region. There was concern a couple days ago about possible urinary retention. I asked nursing staff to get a bladder scan but they stated it was not reading. They placed a Anderson catheter only got about 200 cc of urine out. Lab work reveals continued white count of 12.9, consistent with prior value. Differential is unremarkable. Chemistry studies significant for a sodium of 132, bicarb of 17, BUN 22, creatinine 1.15. Glucose is 322. Urinalysis reveals 1000 glucose and 150 ketones. No sign of infection. Patient CT scan from [place] 2 days ago as well as [place] yesterday is reviewed. Right upper quadrant ultrasound obtained today and reveals no acute gallbladder abnormalities. Patient was to be on Cipro and Flagyl and that is ordered for him again. Will speak with hospitalist regarding admission and GI consult as it had been the plan on the . Discharge Plan Triage Chief Complaint: Abd Pain ED Midlevel Provider: Krystina Clifton ED Provider: Connie Hermosillo Dx/Rx/DC Orders Clinical Impression: Acute dehydration, Type 2 diabetes mellitus with hyperglycemia, Nausea & vomiting, Hypertension, Abdominal pain, acute, generalized Prescriptions: No Action glipizide 10 mg tablet extended release 24hr 10 mg PO DAILY lisinopril 10 mg tablet 10 mg PO DAILY Qty: 30 0RF Patient Comments: THIS IS A NEWLY PRESCRIBED MEDICATION THAT THE PT HAS NOT YET STARTED/PICKED UP FROM THE PHARMACY ( OF 01/27/24) pioglitazone 15 mg tablet 15 mg PO DAILY Primary Care Provider: Heena Barbosa Referrals: Heena Barbosa, SK[facility]-C [Primary Care Provider] - Disposition Disposition: Acute Care Hospital [facility]
[2024-01-27] MEDS: Ondansetron 4 MG/2 ML Vial IV ×2 (12:06→19:34)
[2024-01-27] MEDS: Morphine 4 MG/ML Syringe IV (12:06)
[2024-01-27] MEDS: 0.9% Normal Saline (1000mL) 1,000 ML 1000 ML IV (12:07)
[2024-01-27 12:24] LABS: Absolute Lymphocyte Count 3.36 X10^3/uL (0.83-4.51); Absolute Neutrophil Count 8.4 X10^3/uL (2.0-7.7); Bacteria 0 SEEN /hpf (None Seen); Basophil# 0.06 X10^3/uL; Basophil% 0.5 % (0-1); Eosinophil# 0.06 X10^3/uL; Eosinophils% 0.5 % (0-5); Hematocrit 44.8 % (40-54); Hemoglobin 14.9 g/dL (13.0-16.5); Lymphocyte # 3.36 X10^3/ul (0.83-4.51); Lymphocyte % 26.1 % (19-41); Mean Corp Hgb Conc 33.3 g/dL (32-36); Mean Corpuscular Volume 84.2 fL (80-94); Mean Platelet Vol. 9.8 fl (6.2-12.0); Mucous, Urine 0 SEEN /hpf (<or=2+); NRBC Flagged by Analyzer 0 % (0-5); Neutrophil # 8.43 X10^3/uL (2.7-7.7); Neutrophil % 65.5 % (47-70); Platelet Count 375 K/mm3 (150-450); RBC Distribution Width CV 13.2 % (11.6-14.6); RBC Distribution Width SD 40.4 fl (35.1-43.9); Red Blood Count 5.32 M/mm3 (4.6-6.2); Squamous Epithelial Cells - UA 0 SEEN /hpf (0-5); White Blood Cells 0 SEEN /hpf (0-5); White Blood Count 12.9 K/mm3 (4.4-11.0)
[2024-01-27 12:31] LABS: Color, Urine Yellow (Yellow); Glucose, Dipstick 1000 mg/dl (Normal); Leukocyte Esterase-Dipstick Negative /ul (Negative); Nitrite-Dipstick Negative (Negative); Occult Blood-Urine 50 /ul (Negative); Protein-Dipstick 30 mg/dl (Negative); Specific Gravity, Urine 1.025 (1.002-1.030); Urine Bilirubin Dipstick Negative (Negative); Urine Clarity Clear (Clear); Urine Urobilinogen Normal (Normal)
[2024-01-27 12:37] LABS: Ketone-Dipstick 150 mg/dl (Negative)
[2024-01-27 12:38] LABS: Red Blood Cells-Urine 5-10 SEEN /hpf (0-5)
[2024-01-27 12:46] LABS: ALB/GLOB Ratio 0.8 RATIO (0.9-2.4); AST(SGOT) 17 U/L (15-37); Alanine Aminotransfer ALT/SGPT 15 U/L (16-61); Albumin, Serum 4.2 g/dL (3.2-5.0); Alkaline Phosphatase 91 U/L (45-117); Anion Gap 15 (5-15); BUN 22 mg/dL (7-18); BUN/Creat Ratio 19.1 RATIO (10-20); Calcium,Total 9.6 mg/dL (8.5-10.1); Chloride 100 mmol/L (98-107); Creatinine, Serum 1.15 mg/dL (0.70-1.30); EST Glomerular Filtration Rate 76 mL/min (>60); Est Glom Filt Rate - Afr Amer 91 mL/min (>60); Estimated Creatinine Clearance 76.75 ml/min; Glucose 322 mg/dL (74-106); Lipase 47 U/L (13-75); Protein, Total 9.2 g/dL (6.4-8.2); Sodium Level 132 mmol/L (136-145)
[2024-01-27] MEDS: Ketorolac 15 MG/ML Vial IV (13:11)
[2024-01-27] MEDS: Ciprofloxacin 400 MG/200 ML BAG 200 MG IV (13:55)
[2024-01-27] MEDS: 0.9% Normal Saline (1000mL) 1,000 ML 999 ML IV (13:55)
--- NOTE | 2024-01-27 15:03 | PCM.HP.STD ---
HPI - General General Date of Admission: 01/27/24 Date of Service: 01/27/24 Chief Complaint: Intractable nausea and vomiting HPI Narrative DILSHAD PULIDO, is a 38 M who presented to [facility] ED on 01/27/2024 with intractable nausea and vomiting. Patient seen at bedside in the ED. Patient sitting up fairly comfortably in bed, conversing normally, no acute distress. Patient is very pleasant and provides a good history. Patient states that his nausea and vomiting started somewhat abruptly about 4 days ago. He then began to have pain in the right upper quadrant or right lower quadrant of his abdomen. He came to the ED on 01/[address] abdomen pelvis was done at that time and was essentially normal. Labs are notable for a mild leukocytosis, hyperglycemia with blood glucose 278, UA that showed 1000 glucose, 150 urine ketones but acid-base status was normal and findings were otherwise fairly benign. He had borderline sinus tachycardia and was quite hypertensive at that time as well. He had some improvement in his symptoms with IV fluids, Zofran and morphine. He was started on low-dose lisinopril and discharged at that time. Over the last few days, patient has continued to have some episodes of nausea/vomiting and abdominal pain. He essentially has not eaten anything over the past 3 to 4 days. States he has very minimal appetite. Because his symptoms did not improve, he came to the ED today for further evaluation. Vitals were again notable for fairly significant hypertension and mild tachycardia. Labs again showed hyperglycemia with blood glucose 322 and similar UA findings, but bicarb was 17 and he had a mild anion gap. He was given 2 L of IV fluids in the ED as well as Zofran and morphine with some improvement in symptoms. He currently denies any abdominal pain or discomfort. Denies any fevers or chills. Denies any significant change in bowel movements. Denies any lightheadedness or dizziness. No other acute concerns at this time. Due to his intractable nausea/vomiting and abdominal pain and mild DKA, hospitalist is contacted for admission. On further review, patient was diagnosed with diabetes back in 2014 in his late 20s. His A1c was 13.9% at that time. He remembers having some polyuria and polydipsia at that time but otherwise did not have significant symptoms. He was slightly heavier at that time but BMI was still likely less than 30. He has intermittently been on oral medications for his diabetes since then. Diabetes has been managed by his PCP he states. He was on metformin for a while, but recently this was discontinued because he reported worsening nausea and vomiting over the past 1 to 2 months to his PCP. His regimen since then has been glipizide 10 mg daily and Actos 15 mg daily. In general, patient states that his vision has steadily been getting worse over the past few years with some blurry vision. He has noticed increasing episodes of numbness/tingling and electric type shocks in his feet, worse on the right foot. He is also noticed that his stomach does not seem to be emptying as quickly as normal and he has had less of an appetite because of this. Patient does smoke marijuana on a daily basis but has been doing this since age 13. Does not smoke cigarettes. Denies any alcohol use. Denies any other drug use. [facility] Medical History Bipolar 1 disorder Diabetes mellitus Schizo-affective schizophrenia Home Medications glipizide 10 mg tablet, extended release 24 hr 10 mg PO DAILY BLOOD SUGARS 01/25/24 [History Last Taken 01/25/24] lisinopril 10 mg tablet 10 mg PO DAILY BLOOD PRESSURE #30 tabs 01/25/24 [Rx Last Taken Unknown] pioglitazone 15 mg tablet 15 mg PO DAILY BLOOD SUGARS 01/27/24 [History Last Taken 01/25/24] Allergy/AdvReac Type Severity Reaction Status Date / Time No Known Allergies Allergy Verified 01/27/24 11:30 Family History unable to obtain Social History household members: spouse Smoking Status: Current some day smoker tobacco type: cigarettes ROS Constitutional Constitutional: Reports fatigue; Denies chills, fever(s) or weakness Eyes Eyes: Reports blurry vision and change in vision Cardiovascular Cardiovascular: Denies chest pain, dyspnea on exertion, edema, lightheadedness or palpitations Respiratory/Chest Respiratory/Chest: Denies cough, shortness of breath at rest, shortness of breath with exertion or wheezing Gastrointestinal Gastrointestinal: Reports abdominal pain, dyspepsia, nausea and vomiting; Denies constipation or diarrhea Genitourinary Genitourinary: Denies dysuria Musculoskeletal Musculoskeletal: Denies arthralgias, back pain or myalgias Neurologic Neurologic: Reports numbness, paresthesias and tingling; Denies abnormal gait, disequilibrium, dizziness, focal weakness, headache(s) or tremor(s) Endocrine Endocrinology: Denies polydipsia or polyuria Vital Signs Vital Signs Vital Signs: 01/27/24 11:30 01/27/24 12:18 01/27/24 13:42 Temperature 99 F 98.0 F Temperature Source Temporal Oral Pulse Rate 133 H 120 H 92 Respiratory Rate 26 H 31 H 15 Blood Pressure 174/106 H 192/108 H 181/102 H Blood Pressure Mean 128 136 128 Pulse Ox 100 100 99 Oxygen Delivery Method Room Air Room Air Room Air 01/27/24 13:58 01/27/24 14:01 Temperature Temperature Source Pulse Rate 85 88 Respiratory Rate 17 Blood Pressure 168/98 H 132/95 H Blood Pressure Mean 121 107 Pulse Ox 98 Oxygen Delivery Method Room Air Weight Weight: 62.3 kg Body Mass Index (BMI) 22.1 Physical Exam Const alert, oriented x3, no apparent distress and average body habitus Constitutional Narrative: Pleasant younger male, sitting up comfortably in bed, conversing normally, in no acute distress. General Appearance: cooperative and comfortable HEENT normocephalic, head/scalp atraumatic, hearing grossly normal bilaterally and nasal mucous membranes and turbinates normal Eyes PERRL, EOMs intact bilaterally and conjunctivae normal Neck full ROM Chest inspection of chest normal Resp normal respiratory effort, normal air movement, no use of accessory muscles and clear to auscultation bilaterally Cardio no murmurs and peripheral pulses 2+ throughout Cardio Narrative: Tachycardic, regular rhythm. GI GI Narrative: Mildly tender to palpation diffusely. Otherwise soft and nondistended. Back/Spine normal ROM Extremity normal to inspection, full ROM and no pedal edema Skin no rashes or lesions noted Neuro moves all extremities and no focal motor deficits Neuro Narrative: Decreased sensation noted in the right foot. Speech: speech normal Psych mental status grossly normal Results Lab / Micro Data 01/27/24 12:15 01/27/24 12:15 Labs: Laboratory Results - last 24 hr 01/27/24 12:15: WBC 12.9 H, RBC 5.32, Hgb 14.9, Hct 44.8, MCV 84.2, MCH 28.0, MCHC 33.3, RDW Std Deviation 40.4, RDW Coeff of [place] 13.2, Plt Count 375, MPV 9.8, Immature Gran % (Auto) 0.400, Neut % (Auto) 65.5, Lymph % (Auto) 26.1, [place] % (Auto) 7.0, Eos % (Auto) 0.5, Baso % (Auto) 0.5, Absolute Neuts (auto) 8.4 H, Absolute Lymphs (auto) 3.36, Nucleated RBC % 0, Sodium 132 L, Potassium 4.0, Chloride 100, Carbon Dioxide 17.0 L, Anion Gap 15, BUN 22 H, Creatinine 1.15, Estim Creat Clear Calc 76.75, Est GFR (MDRD) Af Amer 91, Est GFR (MDRD) Non-Af 76, BUN/Creatinine Ratio 19.1, Glucose 322 H, Calcium 9.6, Total Bilirubin 0.70, AST 17, ALT 15 L, Alkaline Phosphatase 91, Total Protein 9.2 H, Albumin 4.2, Globulin 5.0 H, Albumin/Globulin Ratio 0.8 L, Lipase 47, Urine Color Yellow, Urine Clarity Clear, Urine pH 5.0, Ur Specific [place] 1.025, Urine Protein 30 H, Urine Glucose (UA) 1000 H, Urine Ketones 150 A*, Urine Occult Blood 50 H, Urine Nitrite Negative, Urine Bilirubin Negative, Urine Urobilinogen Normal, Ur Leukocyte Esterase Negative, Urine RBC 5-10 SEEN, Urine WBC 0 SEEN, Ur Squamous Epith Cells 0 SEEN, Urine Bacteria 0 SEEN, Urine Mucus 0 SEEN Assessment & Plan Assessment/Plan (1) DKA (diabetic ketoacidoses): (2) Type 2 diabetes mellitus with hyperglycemia: (3) Hypertension: PLAN: Plan Patient is a 38-year-old male who presented to [facility] ED on 01/27/2024 with intractable nausea and vomiting and abdominal pain. 1. Mild DKA, poorly controlled diabetes mellitus with hyperglycemia, suspected diabetic neuropathy and concern for gastroparesis ? Mild DKA on admit as evidenced by glucose 322, sodium 132, bicarb 17, anion gap 15, urine ketones 150, nausea/vomiting and poor appetite on admit. ? Diagnosed with diabetes in 2014, A1c 13.9% at that time. Has been treated like type 2 diabetes but patient was in late 20s and had fairly thin body habitus at that time. No A1c's recorded in our system after that. Was on metformin for a time, current medications now glipizide 10 mg daily and pioglitazone 15 mg daily. Patient reports good compliance with these meds. ? Have high concern that patient has had uncontrolled diabetes for many years that has now led to complications including diabetic neuropathy, diabetic retinopathy, proteinuria, and possible gastroparesis. ? A1c 11.1% on admit. Patient was given 2 L of IV normal saline in the ED, as well as Humalog 10 units x 1 dose. ? Admit under inpatient status to [facility]. Will start Lantus 15 units at night and sliding-scale insulin with meals for now, adjust as needed. Follow-up BMP tonight and again tomorrow morning. Will hold on further IV fluids for now, encouraged p.o. intake. Will start gabapentin 100 mg 3 times daily for neuropathy. 4-hour gastric emptying study ordered. Nutrition and bistro server consulted. Depending on gastric emptying study results, can consider GI consult. 2. Hypertension ? Patient was found to be very hypertensive in the ED on 01/24, has remained hypertensive on this ED visit. Denies any previous diagnosis of hypertension but does report having a strong family history of hypertension. ? Suspect patient has essential hypertension given his BP readings have remained high despite him appearing very comfortable on exam. ? Will start lisinopril 5 mg daily and amlodipine 5 mg daily now. IV hydralazine every 4 hours as needed ordered as well. Monitor BP closely, adjust regimen as needed. 3. Mild leukocytosis ? WBC count 12.9 on admit. Suspect reactive in setting of mild DKA, low concern for active infection. Was given doses of ciprofloxacin and Flagyl in the ED for concern for gastroenteritis, will hold on further antibiotics for now. Follow-up a.m. CBC. 4. Proteinuria ? Presumed secondary to poorly controlled diabetes as well as possibly uncontrolled hypertension. Creatinine 1.15 on admit, estimated GFR 91. Urine protein elevated at 46, urine protein to creatinine ratio elevated at 487. Treating diabetes and hypertension as noted above. Outpatient follow-up. 5. Cannabis use ? Reports smoking marijuana daily. Encouraged cessation. DVT prophylaxis: Lovenox CODE STATUS: Full code, verified Expected disposition: Home, 2 to 3 days Total clinical time spent by myself addressing the patient's medical issues, reviewing all the data, and collaborating with patient's care team: 55 minutes. Charges/Coding Visit Charges Inpatient E&M: 26591 Init Hosp L2
[2024-01-27] MEDS: metroNIDAZOLE 500 MG/100 ML BAG 100 MG IV (15:19)
[2024-01-27] MEDS: Insulin Lispro 100 UNIT/ML INSULN.PEN 10 UNIT SC (15:20)
[2024-01-27 15:44] LABS: Alcohol, Blood (Medical)-Serum < 3.0 mg/dL; Hemoglobin A1c 11.1 % (3.8-5.6)
[2024-01-27 15:46] LABS: Amphetamine Urine VISTA NEGATIVE (<1000 ng/mL); Barbiturate Urine VISTA NEGATIVE (< 200 ng/mL); Benzodiazepine Urine VISTA NEGATIVE (< 200 ng/mL); Cocaine Urine VISTA NEGATIVE (< 300 ng/mL); Ecstacy Urine VISTA NEGATIVE (< 500 ng/mL); Methadone Urine VISTA NEGATIVE (< 300 ng/mL); PCP Urine VISTA NEGATIVE (< 25 ng/mL); THC Urine VISTA POSITIVE (< 50 ng/mL); Vista UDS pH Range 6
[2024-01-27 15:47] LABS: Protein:Creat Ratio 487 mg/g CRE (0-200); Urine Sodium 82 mmol/L (Not Establ.)
[2024-01-27] MEDS: Morphine 2 MG/ML Syringe IV (15:52)
[2024-01-27] MEDS: Labetalol (Prefilled) 20 MG/4 ML 10 MG IV (15:54)
[2024-01-27 17:14] LABS: Thyroid Stim Hormone (TSH) 2.59 uIU/mL (0.358-3.74)
[2024-01-27 17:25] LABS: Bedside Glucose 106 mg/dL (74-106)
[2024-01-27] MEDS: Lisinopril 5 MG Tablet PO (17:28)
[2024-01-27] MEDS: proCHLORPERazine 10 MG/2 ML Vial IV (20:18)
[2024-01-27] MEDS: hydrALAZINE 20 MG/ML Vial 10 MG IV (20:18)
[2024-01-27] MEDS: Gabapentin 100 MG Capsule PO (21:52)
[2024-01-27] MEDS: Acetaminophen 325 MG Tablet 650 MG PO (21:54)
[2024-01-27 22:17] LABS: Bedside Glucose 96 mg/dL (74-106)
[2024-01-28] VITALS (14 sets, daily range): BP systolic 76–164; BP diastolic 49–100; PULSE 82–103; RESP 15–16; TEMP 36–37; O2SAT 96–100
--- NOTE | 2024-01-28 | GASB_PTH ---
PATIENT: DILSHAD PULIDO LOC: MS3 U#:[id number] AGE/SX: 38/M ROOM: [facility] [place] RE01/27/[address]: Dr. Shantell Alcaraz MD : 1985 BED: 1 DIS: 01/29/2024 SPEC #: [id number] RECD: 01/28/24 16:39 STATUS: SILVANO REQ #: [id number] FAHAD: 01/28/24 00:[address]: Jaycob Argueta DEPT: SURGICAL PATHOLOGY RECD BY: Keo Smith ENTERED: 01/31/24 08:53 SP TYPE: Gastric Bx OTHR DR: DO Dr. Shantell Celaya MD Danielle Knoble, MOLDED GOODS OPERATOR-C Tissues: Gastric mucous membrane Procedures: Surgery Specimen Level IV Comments: @ Ordering doctor for SUIV edited from to @ by MEL at 01/31/24916 @ Submitting doctor edited from to @ by MEL at 01/31/24 0917 HEADER OPERATION: EGD biopsy PRE-OP DIAGNOSIS: Diabetic ketoacidosis, Type 2 diabetes mellitus with hyperglycemia, Hypertension TISSUE SUBMITTED: Gastric ulcer biopsy MICROSCOPIC DIAGNOSIS Gastric ulcer, biopsy; Moderate chronic active gastritis. Focal intestinal metaplasia (goblet cell metaplasia). See comment. RAMIREZ/ 02/01/2024 COMMENT Alcian blue/PAS stain with matched control is used in the evaluation of the specimen. The results of immunohistochemistry for Helicobacter pylori will be reported separately ([id number]). MICROSCOPIC DESCRIPTION Slides are reviewed. GROSS DESCRIPTION Received in fixative is one container labeled with the patient's name and designated Gastric ulcer biopsy. The specimen consists of multiple irregular fragments of light de la vega soft tissue that in aggregate measure 0.6 x 0.3 x 0.1 cm. The specimen is totally submitted in one cassette. Ramirez/ 01/31/2024 TC:2 CPT: 83297,69085
[2024-01-28 06:55] LABS: Bedside Glucose 119 mg/dL (74-106)
[2024-01-28 08:03] LABS: Hematocrit 38.6 % (40-54); Hemoglobin 12.6 g/dL (13.0-16.5); Mean Corp Hgb Conc 32.6 g/dL (32-36); Mean Corpuscular Hgb 27.9 pg (27.0-32.0); Mean Corpuscular Volume 85.6 fL (80-94); Mean Platelet Vol. 10.1 fl (6.2-12.0); Platelet Count 336 K/mm3 (150-450); RBC Distribution Width CV 13.4 % (11.6-14.6); RBC Distribution Width SD 41.7 fl (35.1-43.9); Red Blood Count 4.51 M/mm3 (4.6-6.2); White Blood Count 12.3 K/mm3 (4.4-11.0)
[2024-01-28 08:35] LABS: Anion Gap 8 (5-15); BUN 17 mg/dL (7-18); BUN/Creat Ratio 19.6 RATIO (10-20); Calcium,Total 8.4 mg/dL (8.5-10.1); Chloride 109 mmol/L (98-107); Creatinine, Serum 0.87 mg/dL (0.70-1.30); EST Glomerular Filtration Rate 104 mL/min (>60); Est Glom Filt Rate - Afr Amer 126 mL/min (>60); Glucose 127 mg/dL (74-106); Potassium 3.5 mmol/L (3.5-5.1); Sodium Level 137 mmol/L (136-145)
[2024-01-28] MEDS: Morphine 2 MG/ML Syringe 1 MG IV ×3 (09:11→23:11)
--- NOTE | 2024-01-28 09:30 | CASEMGMT ---
RN?CM?SUPERVISOR CD AREA?CM?to room to meet with patient for initial transition planning/care coordination?assessment.?RN?CM?introduced self and role at [facility].? Pt voices understanding and consents to?assessment?at this time.? Pt resting in bed and states having abdominal pain/discomfort.?RNLupe, was in room w/pt when YULIA AVILA entered. at bedside. Pt is A/O at this time and answered some of the questions, but kept his eyes closed for most of the time YULIA AVILA in room. provided most of the following information. ?? Care providers, pharmacy, and demographics verified/updated at this time. PCP: Pt currently sees BEE PRODUCER Heena Barbosa, but states they are interested in pt going to different PCP. She would like a list of PCP's in-network w/his insurance. Jeannette, discharge logistics and planning manager, made aware and will get one prepared. Specialists: none. interested in seeing Dr Hernandez and would like contact info. Preferred Pharmacy: [facility] Prescription Benefit:?yes Living Will/HPOA:?Pt does not currently have LW/HCPOA and would like to complete. Annie, MS3 YULIA AVILA, made aware and will notify SW. Pt and made aware if SW unable to complete this w/him while a patient @ [facility], that he can contact SW as an out-pt and make appt in the future. LNOK: , Ximena Living Arrangements: Lives w/. Independent w/ADL's. states he mostly manages his own medications, but she does assist him. Transportation:?Pt does not drive. provides transportation. DME: ?Has the following DME:?functioning glucometer w/supplies. states BEE PRODUCER ordered a CGM for pt, but since he is not on insulin, insurance will not cover the cost of a CGM. Pt has sufficient supply of PO medications he takes @ home. Is not currently on insulin, but has been in the past. interested in [facility] info. states no need for further DME at this time.? HHC/SNF: No hx of either. Discussed discharge planning. Pt and wish for pt to return home and states has no further concerns/needs at this time. CM?to follow for any further discharge planning/needs.? Advised them to ask for?CM?if any further questions/concerns/needs arise.? They voice understanding. PLAN:??Home w/spousal support. CM to follow. interested in PCP list, Dr Hernandez's contact info, [facility] Clinic info. Annie, MS3 RN CM, made aware. Miky BSN?RN?CM
[2024-01-28] MEDS: Enoxaparin 40 MG/0.4 ML Syringe SC (09:53)
[2024-01-28] MEDS: Lisinopril 5 MG Tablet PO (09:54)
[2024-01-28] MEDS: amLODIPine 5 MG Tablet PO (09:54)
[2024-01-28] MEDS: 0.9% Saline Lock 10 ML Syringe IV (09:54)
[2024-01-28] MEDS: Pantoprazole Sodium 40 MG in 0.9% Normal Saline (100mL MB+) 100 ML 330 MG IV ×2 (09:57→21:42)
[2024-01-28] MEDS: Gabapentin 100 MG Capsule PO ×3 (09:57→21:46)
--- NOTE | 2024-01-28 10:39 | CASEMGMT ---
Addendum entered by Annie Wilson 01/28/24 11:03: Also provided pt healthcare provider list created by dc plastic surgery assistant. Original Note: RN CM into pt room, provided pt with a local healthcare directory pamphlet, information for endocrinology as well as card for the diabetic clinic. Pt states pt is vomiting and she would like some answers to his problems. Updated pt nurse on this request/pt status. Pt and deny further needs at this time.
--- NOTE | 2024-01-28 10:54 | CASEMGMT ---
Discharge Planning A list of?primary care?providers including quality and resource use data and consistent with the patient's preferred geographic region, medical needs, and insurance network was printed from [facility]'s website.? This list was provided to the RN CM. Jeannette Nix, Discharge Planning Asst.
[2024-01-28] MEDS: HYDROmorphone 1 MG/ML Syringe IV (11:33)
[2024-01-28] MEDS: Lactated Ringers 1,000 ML 15 ML IV (12:21)
[2024-01-28 12:43] LABS: Bedside Glucose 182 mg/dL (74-106)
--- NOTE | 2024-01-28 12:45 | IMM_PTH ---
PATIENT: DILSHAD PULIDO LOC: MS3 U#:[id number] AGE/SX: 38/M ROOM: [facility] RE01/27/[address]: Dr. Shantell Alcaraz MD : 1985 BED: 1 DIS: 01/29/2024 SPEC #: [id number] RECD: 01/31/24 09:17 STATUS: SOUT REQ #: [id number] FAHAD: 01/28/24 12:[address]: Jaycob Argueta DEPT: IMMUNOHISTOCHEMISTRY RECD BY: Souleymane Lyons ENTERED: 01/31/24 09:18 SP TYPE: IMMUNO OTHR DR: Dr. Troy Wagoner, MD Heena Kang Dr., DIVINITY PROFESSOR-C Tissues: Stomach, NOS Procedures: H Pylori (initial) Comments: @ Ordering doctor for H.PYLORI edited from to @ by MEL at 01/31/24917 @ Submitting doctor edited from to @ by MEL at 01/31/24917 PHYSICIAN & [place] [id number] SPECIMEN INFORMATION: Tissue Source: Gastric ulcer biopsy Clinical Info: Diabetic ketoacidosis, Type 2 diabetes mellitus with hyperglycemia, Hypertension Specimen Number: [id number] CPT code: 14325 METHODOLOGY: Deparaffinized sections of prefer/formalin-fixed tissue or PAP/DQ stained slides are incubated with monoclonal/polyclonal antibodies/oligonucleotide probes. Localization is made via biotin free immunoperoxidase method. Appropriate controls are performed and reacted as expected. Results on target cell population are indicated in the following table: RESULTS: ANTIBODY / CLONE RESULT H Pylori (polyclonal) positive These tests were developed and their performance characteristics determined by [facility]. They may not have been cleared or approved by the U.S. Food and Drug Administration. The FDA has determined that such clearance or approval is not necessary. The above immunohistochemical/dualISH markers are ordered and reviewed by the Pathologist. INTERPRETATION: Gastric ulcer, biopsy: Positive for Helicobacter pylori organisms. SAMM:kirti 02/01/2024
--- NOTE | 2024-01-28 13:20 | PN_ITS ---
Subjective Subjective Patient seen and examined. He was lying in bed moaning because of abdominal pain. He denied any nausea or vomiting, fever or chills or shortness of breath. Review of systems otherwise negative. Objective Data Objective Data Vital Signs: Vital Signs Temp Pulse Resp BP Pulse Ox O2 Del Method 98.1 F 101 H 16 105/66 100 Room Air 01/28/24 07:29 01/28/24 07:29 01/28/24 07:29 01/28/24 07:29 01/28/24 07:29 01/28/24 07:29 Oxygen Delivery Method Room Air Weight: 138 lb 3.677 oz Body Mass Index (BMI) 22.3 Intake & Output: Intake and Output for Last 24 Hours 01/26/24 01/27/24 01/28/24 23:59 23:59 23:59 Intake Total 2540 / 2540 810 / 810 Output Total 450 / 450 900 / 900 Balance 0 / 2089 -90 / -90 Lab / Micro Data 01/28/24 06:55 01/28/24 06:55 Labs: Laboratory Results - last 24 hr 01/27/24 12:15: TSH 2.59 01/27/24 15:15: Hemoglobin A1c 11.1 H, Ethyl Alcohol < 3.0 01/27/24 15:30: U Random Total Protein 46.0 H, Ur Random Sodium 82, Urine Creatinine 94.50, Protein/Creatinin Ratio 487 H, Urine Opiates Screen POSITIVE H , Urine Methadone Screen NEGATIVE, Ur Barbiturates Screen NEGATIVE, Ur Phencyclidine Scrn NEGATIVE, Ur Amphetamines Screen NEGATIVE, MDMA (Ecstasy) Screen NEGATIVE, U Benzodiazepines Scrn NEGATIVE, Urine Cocaine Screen NEGATIVE, U Cannabinoids Screen POSITIVE H, Ur Drug Screen Comment 01/27/24 16:53: POC Glucose 106 01/27/24 21:50: POC Glucose 96 01/28/24 06:32: POC Glucose 119 H 01/28/24 06:55: WBC 12.3 H, RBC 4.51 L, Hgb 12.6 L, Hct 38.6 L, MCV 85.6, MCH 27.9, MCHC 32.6, RDW Std Deviation 41.7, RDW Coeff of [place] 13.4, Plt Count 336, MPV 10.1, Sodium 137, Potassium 3.5, Chloride 109 H, Carbon Dioxide 20.0 L, Anion Gap 8, BUN 17, Creatinine 0.87, Estim Creat Clear Calc 102.10, Est GFR (MDRD) Af Amer 126, Est GFR (MDRD) Non-Af 104, BUN/Creatinine Ratio 19.6, Glucose 127 H, Calcium 8.4 L 01/28/24 12:23: POC Glucose 182 H Radiography Diagnostic Testing: Radiology Impression Gallbladder Ultrasound 01/27/24 11:48 IMPRESSION: Normal right upper quadrant ultrasound examination. Electronically Signed: Nicola Her MD at 13:10 EDT , Physical Exam Const alert and oriented x3 Constitutional Narrative: In moderate distress due to pain General Appearance: cooperative HEENT normocephalic, head/scalp atraumatic and moist oral mucous membranes Eyes PERRL and EOMs intact bilaterally Neck no lymphadenopathy and supple Lymph Lymphatic: no lymphadenopathy noted and no lymphedema noted Resp normal respiratory effort, normal air movement and clear to auscultation bilaterally Cardio regular rate, regular rhythm, S1 normal heart sound, S2 normal heart sound and no murmurs GI normal to inspection, nondistended, normoactive bowel sounds and non-distended GI Narrative: Moderate epigastric tenderness with no guarding or rebound tenderness Extremity normal capillary refill, no clubbing, cyanosis or edema and no calf tenderness General Extremity: no tenderness to palpation of joints or extremities Skin General Skin Exam: no breakdown Neuro CN's II-XII intact bilaterally, no focal motor deficits, no sensory deficits noted and deep tendon reflexes 2+ bilaterally Motor Exam: strength 5/5 throughout and general weakness Psych thought process normal and cooperative Appearance: appropriate Assessment & Plan Assessment/Plan (1) DKA (diabetic ketoacidoses): (2) Nausea & vomiting: (3) Abdominal pain, acute, generalized: PLAN: Plan #MIld DKA in a known diabetic * Bicarb is up to 20 today. Anion gap is 8. DKA has resolved. * Being hydrated with IV fluids. On subcu Lantus 15 units daily * Says he is to be on pioglitazone and glipizide. States he was on metformin but this was stopped. His A1c is 11 * Will need follow-up with endocrinology on outpatient basis. * #Intractable abdominal pain * Patient has been writhing and moaning in pain. He has mild epigastric tenderness. * CT of the abdomen and pelvis showed no evidence of pancreatitis or any acute intra-abdominal pathology. * Started on IV pantoprazole 40 mg twice daily for any probable gastritis. * Patient also smokes marijuana and this could be the cause of his symptoms. Patient however states he has been smoking marijuana since he was 13 so does not think that it could be related to this. * Gastroenterology consulted. Await recs. * Keep n.p.o. and continue hydration with IV fluids. * #Hypertension: * Has a strong family history of hypertension. Blood pressure was elevated on admission. * Started on lisinopril 5 mg and amlodipine 5 mg. IV hydralazine as needed. * Adjust medications as needed. * #Proteinuria: Urine protein creatinine ratio was elevated at 487. Will benefit from follow-up with nephrology on outpatient basis. Creatinine level was normal. DVT prophylaxis: Lovenox Charges/Coding Visit Charges Inpatient E&M: 52942 Subs Hosp L2
--- NOTE | 2024-01-28 13:52 | OP.EGD_ITS ---
Patient Name: Weston Gamez Procedure Date: 01/28/2024 1:21 PM Date of : 1985 Age: 38 Procedure: Upper GI endoscopy Indications: Epigastric abdominal pain Providers: Jaycob Argueta DO Medicines: Monitored Anesthesia Care Patient Profile: This is a 38 year old male. Refer to note in patient chart for documentation of history and physical. Patient has symptoms of acute epigastric abdominal pain. Complications: No immediate complications. Procedure: Pre-Anesthesia Assessment: - Prior to the procedure, a History and Physical was performed, and patient medications and allergies were reviewed. The patient is competent. The risks and benefits of the procedure and the sedation options and risks were discussed with the patient. All questions were answered and informed consent was obtained. Patient identification and proposed procedure were verified by the physician in the pre-procedure area. Mental Status Examination: alert and oriented. Airway Examination: normal oropharyngeal airway and neck mobility. Respiratory Examination: clear to auscultation. CV Examination: normal. Prophylactic Antibiotics: The patient does not require prophylactic antibiotics. Prior Anticoagulants: The patient has taken no anticoagulant or antiplatelet agents. ASA Grade Assessment: II - A patient with mild systemic disease. After reviewing the risks and benefits, the patient was deemed in satisfactory condition to undergo the procedure. The anesthesia plan was to use monitored anesthesia care (MAC). Immediately prior to administration of medications, the patient was re-assessed for adequacy to receive sedatives. The heart rate, respiratory rate, oxygen saturations, blood pressure, adequacy of pulmonary ventilation, and response to care were monitored throughout the procedure. The physical status of the patient was re-assessed after the procedure. After obtaining informed consent, the endoscope was passed under direct vision. Throughout the procedure, the patient's blood pressure, pulse, and oxygen saturations were monitored continuously. The Endoscope was introduced through the mouth, and advanced to the second part of duodenum. The upper GI endoscopy was accomplished without difficulty. The patient tolerated the procedure well. Findings: LA Grade C (one or more mucosal breaks continuous between tops of 2 or more mucosal folds, less than 75% circumference) esophagitis with no bleeding was found 37 to 40 cm from the incisors. Bilious fluid was found in the entire examined stomach. Fluid aspiration was performed. Few non-bleeding cratered gastric ulcers with no stigmata of bleeding were found in the gastric antrum. The largest lesion was 6 mm in largest dimension. Biopsies were taken with a cold forceps for histology. Verification of patient identification for the specimen was done. Biopsies were taken with a cold forceps for Helicobacter pylori testing. Verification of patient identification for the specimen was done. Estimated blood loss was minimal. A benign-appearing, intrinsic severe stenosis was found at the pylorus. This was traversed. A TTS dilator was passed through the scope. Dilation with a 15 mm pyloric balloon dilator was performed. The dilation site was examined and showed moderate improvement in luminal narrowing. Many non-bleeding linear duodenal ulcers with no stigmata of bleeding were found in the duodenal bulb. The largest lesion was 6 mm in largest dimension. Impression: - LA Grade C erosive esophagitis with no bleeding. - Bilious gastric fluid. Fluid aspiration performed. - Non-bleeding gastric ulcers with no stigmata of bleeding. Biopsied. 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 Dilated. - Non-bleeding duodenal ulcers with no stigmata of bleeding. - Severe gastroparesis along with pyloric stenosis secondary to poorly controlled diabetes mellitus Recommendation: - [facility]. - Use Reglan (metoclopramide) 5 mg IV QID. - Use Protonix (pantoprazole) 40 mg PO BID for 3 months. - Strict glucose control - Avoid marijuana - Continue present medications. Procedure Code(s): --- Professional --- 66534, Esophagogastroduodenoscopy, flexible, transoral; with dilation of gastric/duodenal stricture(s) (eg, balloon, bougie) 86460, 59,51, Esophagogastroduodenoscopy, flexible, transoral; with biopsy, single or multiple CPT copyright 2021 [employer]. All rights reserved. The codes documented in this report are preliminary and upon hospital coder review may be revised to meet current compliance requirements. Jaycob Argueta DO 01/28/2024 1:51:57 PM This report has been signed electronically. Number of Addenda: 0 Note Initiated On: 01/28/2024 1:21 PM
--- NOTE | 2024-01-28 13:52 | OP.CCLET_ITS ---
01/28/2024 Earlene Geller Re : Upper GI endoscopy procedure for Weston Gamez Noemyr Chelsey This procedure was performed on Sunday, January 28, 2024. My impressions and recommendations are as follows: Impressions : - LA Grade C erosive esophagitis with no bleeding. - Bilious gastric fluid. Fluid aspiration performed. - Non-bleeding gastric ulcers with no stigmata of bleeding. Biopsied. 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 Dilated. - Non-bleeding duodenal ulcers with no stigmata of bleeding. - Severe gastroparesis along with pyloric stenosis secondary to poorly controlled diabetes mellitus Recommendations : - [facility]. - Use Reglan (metoclopramide) 5 mg IV QID. - Use Protonix (pantoprazole) 40 mg PO BID for 3 months. - Strict glucose control - Avoid marijuana - Continue present medications. My findings are described in the full procedure note, which is enclosed. If I can be of further assistance, please feel free to contact me at . Sincerely, Jaycob Argueta, 01/28/2024 1:51:57 PM This report has been signed electronically.
[2024-01-28 14:14] LABS: Bedside Glucose 213 mg/dL (74-106)
--- NOTE | 2024-01-28 14:21 | CHAPLAIN ---
Type of Pastoral Visit ___ Initial Visit ___ Follow-up Visit ___ On-call Visit ___ General Patient Visit ___ Spiritual Assessment ___ Family Conference ___ Bereavement ___ Rapid Response ___ Code Blue ___ Other (describe below) Pastoral Care Referral From ___ Patient ___ Family ___ Nurse ___ Physician ___ Otc Clerk ___ Brim Buster ___ Other (describe below) Sacrament/Intervention ___ Active listening ___ Anointing ___ Christian ___ Bereavement ___ Communion ___ Asha exploration ___ ___ Life review ___ Prayer ___ Reconciliation ___ Sacrament of Sick ___ Supportive presence ___ Wedding ___ Other (describe below) Pastoral Comments patient and bed are not in the room; left a calling card
--- NOTE | 2024-01-28 15:39 | CASEMGMT ---
Social Work SW received referral from RNCM for advance directives SW met with pt and introduced self and role of SW. Pt confirms desire to complete Advance directives. SW explained and assisted pt in completing a living will and health care POA naming his Ximena Gamez. Originals given to pt and copy placed on pt chart. AMELIA Barraza
[2024-01-28] MEDS: Insulin Lispro 100 UNIT/ML INSULN.PEN SC ×2 (16:23→21:50)
[2024-01-28 16:37] LABS: Bedside Glucose 190 mg/dL (74-106)
[2024-01-28] MEDS: Ondansetron 4 MG/2 ML Vial IV (19:40)
[2024-01-28] MEDS: Insulin Glargine-YFGN 100 UNIT/ML Pen 15 UNIT SC (21:52)
[2024-01-29 00:56] LABS: Bedside Glucose 170 mg/dL (74-106)
[2024-01-29] MEDS: MELATONIN 3 MG TABLET PO (01:34)
[2024-01-29 03:00] VITALS: BP 114/71; PULSE 99; RESP 15; TEMP 37.2; O2SAT 98
[2024-01-29] MEDS: Morphine 2 MG/ML Syringe 1 MG IV ×2 (05:55→09:31)
[2024-01-29 06:24] LABS: Absolute Neutrophil Count 4.3 X10^3/uL (2.0-7.7); Basophil# 0.06 X10^3/uL; Basophil% 0.6 % (0-1); Eosinophil# 0.17 X10^3/uL; Eosinophils% 1.7 % (0-5); Hematocrit 38.5 % (40-54); Lymphocyte % 41.8 % (19-41); Mean Corp Hgb Conc 33.8 g/dL (32-36); Mean Corpuscular Hgb 28.3 pg (27.0-32.0); Mean Corpuscular Volume 83.7 fL (80-94); Mean Platelet Vol. 9.2 fl (6.2-12.0); Monocyte# 1.16 X10^3/uL; Monocyte% 11.8 % (0-10); NRBC Flagged by Analyzer 0 % (0-5); Neutrophil # 4.28 X10^3/uL (2.7-7.7); Neutrophil % 43.8 % (47-70); Platelet Count 341 K/mm3 (150-450); RBC Distribution Width CV 13.2 % (11.6-14.6); RBC Distribution Width SD 40.7 fl (35.1-43.9); White Blood Count 9.8 K/mm3 (4.4-11.0)
[2024-01-29 06:48] LABS: Anion Gap 8 (5-15); BUN 15 mg/dL (7-18); BUN/Creat Ratio 20.2 RATIO (10-20); Calcium,Total 8.5 mg/dL (8.5-10.1); Chloride 107 mmol/L (98-107); Creatinine, Serum 0.74 mg/dL (0.70-1.30); EST Glomerular Filtration Rate 125 mL/min (>60); Est Glom Filt Rate - Afr Amer 151 mL/min (>60); Estimated Creatinine Clearance 120.03 ml/min; Glucose 124 mg/dL (74-106); Potassium 3.4 mmol/L (3.5-5.1); Sodium Level 136 mmol/L (136-145)
[2024-01-29] MEDS: Gabapentin 100 MG Capsule PO (06:56)
[2024-01-29 07:19] LABS: Bedside Glucose 127 mg/dL (74-106)
[2024-01-29 07:54] VITALS: BP 180/115; PULSE 94
[2024-01-29] MEDS: Metoclopramide 5 MG TABLET PO ×2 (07:54→11:16)
[2024-01-29] MEDS: 0.9% Saline Lock 10 ML Syringe IV ×2 (07:54→09:31)
[2024-01-29] MEDS: Enoxaparin 40 MG/0.4 ML Syringe SC (07:54)
[2024-01-29] MEDS: hydrALAZINE 20 MG/ML Vial 10 MG IV (07:54)
[2024-01-29] MEDS: Acetaminophen 325 MG Tablet 650 MG PO (07:55)
[2024-01-29] MEDS: Lisinopril 5 MG Tablet PO (07:55)
[2024-01-29] MEDS: amLODIPine 5 MG Tablet PO (07:55)
[2024-01-29 08:00] VITALS: BP 180/115; PULSE 94; RESP 14; TEMP 36.4; O2SAT 100
[2024-01-29] MEDS: Pantoprazole Sodium 40 MG Tablet PO (09:31)
[2024-01-29 09:41] VITALS: BP 158/91
[2024-01-29] MEDS: Insulin Lispro 100 UNIT/ML INSULN.PEN SC (11:16)
[2024-01-29 11:37] LABS: Bedside Glucose 151 mg/dL (74-106)
--- NOTE | 2024-01-29 13:46 | PCM.DC ---
Discharge Instructions Diet Discharge Diet: Low fat / Low cholesterol and 1800 Calorie Control Diet Activity Discharge Activity: Return to Normal Activity Weight Bearing Status: Weight bearing as tolerated Dressing / Incision Call your doctor if you observe: Fever of 101 or Higher, Shortness of breath, Dizziness, Swelling in the ankles and Chest pain Follow Up Care Test Results: Test results from this visit will be discussed in further detail at your follow-up appointment, if applicable. Discharge Plan Admission Admit Date/Time: 01/27/24 15:09 Primary Reason for Your Visit: DKA, gastroparesis Attending Provider: Shantell Alcaraz Primary Care Provider: Heena Barbosa Consulting Providers: Troy Wagoner Instructions Patient Instructions: Ketoacidosis Ch, Diabetic Gastroparesis Discharge Orders/Prescriptions Prescriptions: New insulin glargine-yfgn 100 unit/mL (3 mL) Insulin Pen 15 unit subcut QHS Qty: 15 2RF lisinopril 20 mg tablet 20 mg PO DAILY Qty: 30 2RF metoclopramide HCl 5 mg tablet 5 mg PO Q6H Qty: 120 1RF pantoprazole 40 mg tablet,delayed release (DR/EC) 40 mg PO BID Qty: 60 2RF (DME) pen needle, diabetic [BD Ultra-Fine Lizzeth Pen Needle] 32 gauge x 5/32 needle See Rx Instructions .Route Qty: 1200 1RF Rx Instructions: As directed Discontinued glipizide 10 mg tablet extended release 24hr 10 mg PO DAILY lisinopril 10 mg tablet 10 mg PO DAILY Qty: 30 0RF Patient Comments: THIS IS A NEWLY PRESCRIBED MEDICATION THAT THE PT HAS NOT YET STARTED/PICKED UP FROM THE PHARMACY ( OF 01/27/24) pioglitazone 15 mg tablet 15 mg PO DAILY Referrals / Follow Up: Mushtaq Hernandez MD [Med Staff - Courtesy Staff] - Within 2 Weeks (see to establish care for diabetes) Heena Barbosa, PASSENGER SERVICE MANAGER-C [Primary Care Provider] - Within 2 Weeks Disposition Disposition (needs filled in before D/C Order can be placed): Home, Self Care
--- NOTE | 2024-01-29 13:53 | DS.PCM_ITS ---
Providers Date of Admission: 01/27/24 Date of Discharge: 01/29/24 Primary Care Physician: Heena Barbosa, ELECTRIC ACCOUNTING MACHINE OPERATOR-C Consultations 01/28/24 08:55 Consult: Gastroenterology Routine Consulting Provider: Suzanne Gastroenterology Reason for Consult: abdominal pain; gastritis v gastroparesis EMERGENT Consult: No MD Notified: Yes Date Notified: 01/28/24 Time Notified: 08:55 Method of Notification: Text Reason For Visit: INTRACTABLE ABDOMINAL PAIN, POORLY CONTROLLED DIAB Diagnosis Discharge Diagnosis (1) DKA (diabetic ketoacidoses): Status: Acute Code(s): E11.10 - Type 2 diabetes mellitus with ketoacidosis without coma (2) Nausea & vomiting: Status: Acute Code(s): R11.2 - Nausea with vomiting, unspecified (3) Abdominal pain, acute, generalized: Status: Acute Code(s): R10.84 - Generalized abdominal pain Plan #MIld DKA in a known diabetic * Bicarb is up to 20 today. Anion gap is 8. DKA has resolved. * Being hydrated with IV fluids. On subcu Lantus 15 units daily * Says he is to be on pioglitazone and glipizide. States he was on metformin but this was stopped. His A1c is 11 * Will need follow-up with endocrinology on outpatient basis. * #Intractable abdominal pain * Patient has been writhing and moaning in pain. He has mild epigastric tenderness. * CT of the abdomen and pelvis showed no evidence of pancreatitis or any acute intra-abdominal pathology. * Started on IV pantoprazole 40 mg twice daily for any probable gastritis. * Patient also smokes marijuana and this could be the cause of his symptoms. Patient however states he has been smoking marijuana since he was 13 so does not think that it could be related to this. * Gastroenterology consulted. Await recs. * Keep n.p.o. and continue hydration with IV fluids. * #Hypertension: * Has a strong family history of hypertension. Blood pressure was elevated on admission. * Started on lisinopril 5 mg and amlodipine 5 mg. IV hydralazine as needed. * Adjust medications as needed. * #Proteinuria: Urine protein creatinine ratio was elevated at 487. Will benefit from follow-up with nephrology on outpatient basis. Creatinine level was normal. DVT prophylaxis: Lovenox Medications at Discharge Home Medications insulin glargine-yfgn 100 unit/mL (3 mL) subcutaneous pen 15 unit (0.15 mL) subcut QHS #15 mL 01/29/24 lisinopril 20 mg tablet 20 mg PO DAILY #30 tabs 01/29/24 metoclopramide HCl 5 mg tablet 5 mg PO Q6H #120 tabs 01/29/24 pantoprazole 40 mg tablet,delayed release 40 mg PO BID #60 tabs 01/29/24 pen needle, diabetic 32 gauge x 5/32 (BD Ultra-Fine Lizzeth Pen Needle) #1,200 ea 01/29/24 Hospital Course Operations None Procedures EGD Summary of Care Provided Minutes Spent on Discharge: 45 Hospital Course: Patient is a 38-year-old male with a past medical history as outlined was admitted through the ED on 01/27/2024 with a complaint of intractable nausea and vomiting. Patient was a known diabetic and was diagnosed back in 2014. His A1c was 13.9 at that time. He was placed on metformin but could not tolerated due to worsening nausea and vomiting. He had then been placed on glipizide and Actos. He said his vision had also been getting steadily worse as he had blurr ed vision and also numbness and tingling in his lower extremities. He had come to the ED on 01/25/2024 for similar complaints as he presented on the day of admission and a CAT scan of the abdomen and pelvis was done and was essentially normal so he was discharged home. However his symptoms persisted so he came into the ED. He had not been able to eat or drink well. Labs showed hyperglycemia with blood glucose of 322. Bicarb was 17 and he had a mild anion gap. He was admitted and managed for mild DKA and an known diabetic. He was hydrated with fluids. There was concern for gastroparesis so gastroenterology was consulted. Patient was started on subcu Lantus. A1c checked was 11.1. Gas troenterology saw patient and he had EGD which showed evidence of gastroparesis with severe pyloric stenosis as well as gastritis. Patient also admitted to smoking marijuana daily and said he had done so since he was 13 years. Patient was placed on Reglan and counseled that he needed to stop smoking marijuana as well. His symptoms improved and he felt better. He was placed on Lantus as stated and he was given a prescription for Lantus at time of discharge. He was referred to endocrinology on outpatient basis to establish care for his diabetes. Glipizide and pioglitazone was stopped as he had been placed on Lantus. He is follow-up with his primary care doctor within 1 to 2 weeks and al so to follow-up with gastroenterology. He was also given a prescription for Reglan. Patient seen and examined prior to discharge. He felt better and had no active complaints. Review of systems otherwise negative. Labs and vitals reviewed. Home medication reviewed and reconciled. Physical Exam Const alert, oriented x3, no apparent distress and average body habitus Constitutional Narrative: In moderate distress due to pain General Appearance: cooperative, comfortable and well kempt Orientation / Consciousness: awake Exam Limitations: no limitations HEENT normocephalic, head/scalp atraumatic, hearing grossly normal bilaterally, nasal mucous membranes and turbinates normal and moist oral mucous membranes Mouth: oral and palatal mucosa normal and dry mucous membranes Eyes PERRL, EOMs intact bilaterally and conjunctivae normal Neck full ROM, no lymphadenopathy and supple Lymph Lymphatic: no lymphadenopathy noted and no lymphedema noted Chest inspection of chest normal Resp normal respiratory effort, normal air movement, no use of accessory muscles and clear to auscultation bilaterally Cardio regular rate, regular rhythm, S1 normal heart sound, S2 normal heart sound, no murmurs and peripheral pulses 2+ throughout Cardio Narrative: Tachycardic, regular rhythm. GI normal to inspection, nondistended, normoactive bowel sounds, soft to palpation, non-tender and non-distended Back/Spine normal ROM Extremity normal to inspection, full ROM, normal capillary refill, no clubbing, cyanosis or edema, no calf tenderness and no pedal edema General Extremity: no tenderness to palpation of joints or extremities Skin no rashes or lesions noted General Skin Exam: no breakdown Neuro oriented x3, CN's II-XII intact bilaterally, moves all extremities, no focal mo tor deficits, no sensory deficits noted and deep tendon reflexes 2+ bilaterally Speech: speech normal Motor Exam: strength 5/5 throughout and general weakness Psych mental status grossly normal, thought process normal and cooperative Appearance: appropriate Weight / BMI Weight Weight: 138 lb 3.677 oz Body Mass Index (BMI) 22.3 ABG / Lab / Microbiology Data 01/29/24 06:03 01/29/24 06:03 Laboratory: Laboratory Results - last 24 hr 01/28/24 11:32: POC Glucose 213 H 01/28/24 16:16: POC Glucose 190 H 01/28/24 21:48: POC Glucose 170 H 01/29/24 06:03: WBC 9.8, RBC 4.60, Hgb 13.0, Hct 38.5 L, MCV 83.7, MCH 28.3, MCHC 33.8, RDW Std Deviation 40.7, RDW Coeff of [place] 13.2, Plt Count 341, MPV 9.2, Immature Gran % (Auto) 0.300, Neut % (Auto) 43.8 L, Lymph % (Auto) 41.8 H, [place] % (Auto) 11.8 H, Eos % (Auto) 1.7, Baso % (Auto) 0.6, Absolute Neuts (auto) 4.3, Absolute Lymphs (auto) 4.10, Nucleated RBC % 0, Sodium 136, Potassium 3.4 L , Chloride 107, Carbon Dioxide 21.0, Anion Gap 8, BUN 15, Creatinine 0.74, Estim Creat Clear Calc 120.03, Est GFR (MDRD) Af Amer 151, Est GFR (MDRD) Non-Af 125, BUN/Creatinine Ratio 20.2 H, Glucose 124 H, Calcium 8.5 01/29/24 06:59: POC Glucose 127 H 01/29/24 11:14: POC Glucose 151 H D/C Instructions Discharge Diet: Low fat / Low cholesterol and 1800 Calorie Control Diet Weight Bearing Status: Weight bearing as tolerated Call your doctor if you observe: Fever of 101 or Higher, Shortness of breath, Dizziness, Swelling in the ankles and Chest pain Meaningful Use Info Meaningful Use Diagnoses (Choose all that apply): None applicable Discharge Plan Admission Admit Date/Time: 01/27/24 15:09 Primary Reason for Your Visit: DKA, gastroparesis Attending Provider: Shantell Alcaraz Primary Care Provider: Heena Barbosa Consulting Providers: Troy Wagoner Instructions Patient Instructions: Ketoacidosis Ch, Diabetic Gastroparesis Discharge Orders/Prescriptions Prescriptions: New insulin glargine-yfgn 100 unit/mL (3 mL) Insulin Pen 15 unit subcut QHS Qty: 15 2RF lisinopril 20 mg tablet 20 mg PO DAILY Qty: 30 2RF metoclopramide HCl 5 mg tablet 5 mg PO Q6H Qty: 120 1RF pantoprazole 40 mg tablet,delayed release (DR/EC) 40 mg PO BID Qty: 60 2RF (DME) pen needle, diabetic [BD Ultra-Fine Lizzeth Pen Needle] 32 gauge x 5/32 needle See Rx Instructions .Route Qty: 1200 1RF Rx Instructions: As directed Discontinued glipizide 10 mg tablet extended release 24hr 10 mg PO DAILY lisinopril 10 mg tablet 10 mg PO DAILY Qty: 30 0RF Patient Comments: THIS IS A NEWLY PRESCRIBED MEDICATION THAT THE PT HAS NOT YET STARTED/PICKED UP FROM THE PHARMACY ( OF 01/27/24) pioglitazone 15 mg tablet 15 mg PO DAILY Referrals / Follow Up: Mushtaq Hernandez MD [Med Staff - Courtesy Staff] - Within 2 Weeks (see to establish care for diabetes) Heena Barbosa NP-C [Primary Care Provider] - Within 2 Weeks Disposition Disposition (needs filled in before D/C Order can be placed): Home, Self Care Charges/Coding Visit Charges Inpatient E&M: 35130 Disch Hosp >30min
== END 2024-01-29 14:32 | disposition home or self-care (01) | DRG 638 ==
LOC: ED 15:29 → MS3 15:39
PROVIDERS: Internal Medicine Gastroenterology; Physician Assistant; Admitting Provider Hospitalist; Emergency Provider Emergency Medicine; PCP Nurse Practitioner Family; Visit Provider Student in an Organized Health Care Education/Training Program
PROC: 0DJ08ZZ Inspection of Upper Intestinal Tract, Via Natural or Artificial Opening Endoscopic (ICD-10-PCS; CPT 43235; principal; 2024-01-28 12:40)
DX: E11.10 Type 2 diabetes mellitus with ketoacidosis without coma (principal); K31.1 Adult hypertrophic pyloric stenosis; K22.10 Ulcer of esophagus without bleeding; K26.9 Duodenal ulcer, unspecified as acute or chronic, without hemorrhage or perforation; E11.43 Type 2 diabetes mellitus with diabetic autonomic (poly)neuropathy; I10 Essential (primary) hypertension; K31.84 Gastroparesis; E11.65 Type 2 diabetes mellitus with hyperglycemia; E86.0 Dehydration; K29.70 Gastritis, unspecified, without bleeding; F17.210 Nicotine dependence, cigarettes, uncomplicated; R80.9 Proteinuria, unspecified; K25.9 Gastric ulcer, unspecified as acute or chronic, without hemorrhage or perforation; Z79.84 Long term (current) use of oral hypoglycemic drugs; Z79.899 Other long term (current) drug therapy
CPT/HCPCS: 36415; 51702; 74177; 76705; 80048; 80053; 80076; 80307; 81001; 82077; 82570; 82962; 83036; 83690; 84156; 84300; 84443; 85025; 85027; 88305; 88342; 96361; 96374; 96375; 96376; 97802; 97803; 99283; 99285; J7030; J7040; J7050; J7120; Q9967; A4216; J0744; J2405

== ENCOUNTER 2024-04-04 13:58 | Day surgery (SDC) | payer MEDICARE, MEDICAID, SELFPAY ==
--- NOTE | 2024-04-04 | IMM_PTH ---
PATIENT: DILSHAD PULIDO LOC: EN U#:[id number] AGE/SX: 38/M ROOM: RE04/04/[address]: Dr. Jaycob Argueta DO : 1985 BED: DIS: 04/04/2024 SPEC #: [id number] RECD: 04/06/24 11:08 STATUS: SILVANO RESonia #: [id number] FAHAD: 04/04/24 00:[address]: Jaycob Argueta DEPT: IMMUNOHISTOCHEMISTRY RECD BY: Souleymane Lyons ENTERED: 04/06/24 11:08 SP TYPE: IMMUNO OTHR DR: Heena Barbosa, MEDIA JOB TITLES-C Tissues: Esophagus, NOS Procedures: P53 (initial) KI-67 (add) PHYSICIAN & INSTITUTION [place] [id number] SPECIMEN INFORMATION: Tissue Source: Distal esophagus biopsy Clinical Info: Nausea/vomiting Specimen Number: [id number] CPT code: 12490,98424 METHODOLOGY: Deparaffinized sections of prefer/formalin-fixed tissue or PAP/DQ stained slides are incubated with monoclonal/polyclonal antibodies/oligonucleotide probes. Localization is made via biotin free immunoperoxidase method. Appropriate controls are performed and reacted as expected. Results on target cell population are indicated in the following table: RESULTS: ANTIBODY / CLONE RESULT P53 (DO-7) negative, null pattern Ki-67 (30-9) positive, low These tests were developed and their performance characteristics determined by [facility]. They may not have been cleared or approved by the U.S. Food and Drug Administration. The FDA has determined that such clearance or approval is not necessary. The above immunohistochemical/dualISH markers are ordered and reviewed by the Pathologist. INTERPRETATION: Distal esophagus, biopsy: No evidence of dysplasia. REX/ 04/07/2024
--- NOTE | 2024-04-04 14:07 | PCM.HP.BLA ---
History and Physical Date of Admission: 04/04/24 DILSHAD PULIDO, is a 38 M who presented to [facility] ED on 01/27/2024 with intractable nausea and vomiting. Patient seen at bedside in the ED. Patient sitting up fairly comfortably in bed, conversing normally, no acute distress. Patient is very pleasant and provides a good history. Patient states that his nausea and vomiting started somewhat abruptly about 4 days ago. He then began to have pain in the right upper quadrant or right lower quadrant of his abdomen. He came to the ED on 01/[address] abdomen pelvis was done at that time and was essentially normal. Labs are notable for a mild leukocytosis, hyperglycemia with blood glucose 278, UA that showed 1000 glucose, 150 urine ketones but acid-base status was normal and findings were otherwise fairly benign. He had borderline sinus tachycardia and was quite hypertensive at that time as well. He had some improvement in his symptoms with IV fluids, Zofran and morphine. He was started on low-dose lisinopril and discharged at that time. Over the last few days, patient has continued to have some episodes of nausea/vomiting and abdominal pain. He essentially has not eaten anything over the past 3 to 4 days. States he has very minimal appetite. Because his symptoms did not improve, he came to the ED today for further evaluation. Vitals were again notable for fairly significant hypertension and mild tachycardia. Labs again showed hyperglycemia with blood glucose 322 and similar UA findings, but bicarb was 17 and he had a mild anion gap. He was given 2 L of IV fluids in the ED as well as Zofran and morphine with some improvement in symptoms. He currently denies any abdominal pain or discomfort. Denies any fevers or chills. Denies any significant change in bowel movements. Denies any lightheadedness or dizziness. No other acute concerns at this time. Due to his intractable nausea/vomiting and abdominal pain and mild DKA, hospitalist is contacted for admission. On further review, patient was diagnosed with diabetes back in 2014 in his late 20s. His A1c was 13.9% at that time. He remembers having some polyuria and polydipsia at that time but otherwise did not have significant symptoms. He was slightly heavier at that time but BMI was still likely less than 30. He has intermittently been on oral medications for his diabetes since then. Diabetes has been managed by his PCP he states. He was on metformin for a while, but recently this was discontinued because he reported worsening nausea and vomiting over the past 1 to 2 months to his PCP. His regimen since then has been glipizide 10 mg daily and Actos 15 mg daily. In general, patient states that his vision has steadily been getting worse over the past few years with some blurry vision. He has noticed increasing episodes of numbness/tingling and electric type shocks in his feet, worse on the right foot. He is also noticed that his stomach does not seem to be emptying as quickly as normal and he has had less of an appetite because of this. Patient does smoke marijuana on a daily basis but has been doing this since age 13. Does not smoke cigarettes. Denies any alcohol use. Denies any other drug use. [facility] Medical History Bipolar 1 disorder Diabetes mellitus Schizo-affective schizophrenia Home Medications glipizide 10 mg tablet, extended release 24 hr 10 mg PO DAILY BLOOD SUGARS 01/25/24 [History Last Taken 01/25/24] lisinopril 10 mg tablet 10 mg PO DAILY BLOOD PRESSURE #30 tabs 01/25/24 [Rx Last Taken Unknown] pioglitazone 15 mg tablet 15 mg PO DAILY BLOOD SUGARS 01/27/24 [History Last Taken 01/25/24] Allergy/AdvReac Type Severity Reaction Status Date / Time No Known Allergies Allergy Verified 01/27/24 11:30 Family History unable to obtain Social History household members: spouse Smoking Status: Current some day smoker tobacco type: cigarettes ROS Constitutional Constitutional: Reports fatigue; Denies chills, fever(s) or weakness Eyes Eyes: Reports blurry vision and change in vision Cardiovascular Cardiovascular: Denies chest pain, dyspnea on exertion, edema, lightheadedness or palpitations Respiratory/Chest Respiratory/Chest: Denies cough, shortness of breath at rest, shortness of breath with exertion or wheezing Gastrointestinal Gastrointestinal: Reports abdominal pain, dyspepsia, nausea and vomiting; Denies constipation or diarrhea Genitourinary Genitourinary: Denies dysuria Musculoskeletal Musculoskeletal: Denies arthralgias, back pain or myalgias Neurologic Neurologic: Reports numbness, paresthesias and tingling; Denies abnormal gait, disequilibrium, dizziness, focal weakness, headache(s) or tremor(s) Endocrine Endocrinology: Denies polydipsia or polyuria Vital Signs Vital Signs Vital Signs: 01/26/2411:30 01/27/2412:18 01/26/2413:42 Temperature 99 F 98.0 F Temperature Source Temporal Oral Pulse Rate 133 H 120 H 92 Respiratory Rate 26 H 31 H 15 Blood Pressure 174/106 H 192/108 H 181/102 H Blood Pressure Mean 128 136 128 Pulse Ox 100 100 99 Oxygen Delivery Method Room Air Room Air Room Air 01/26/2413:58 01/26/2414:01 Temperature Temperature Source Pulse Rate 85 88 Respiratory Rate 17 Blood Pressure 168/98 H 132/95 H Blood Pressure Mean 121 107 Pulse Ox 98 Oxygen Delivery Method Room Air Weight Weight: 62.3 kg Body Mass Index (BMI) 22.1 Physical Exam Const alert, oriented x3, no apparent distress and average body habitus Constitutional Narrative: Pleasant younger male, sitting up comfortably in bed, conversing normally, in no acute distress. General Appearance: cooperative and comfortable HEENT normocephalic, head/scalp atraumatic, hearing grossly normal bilaterally and nasal mucous membranes and turbinates normal Eyes PERRL, EOMs intact bilaterally and conjunctivae normal Neck full ROM Chest inspection of chest normal Resp normal respiratory effort, normal air movement, no use of accessory muscles and clear to auscultation bilaterally Cardio no murmurs and peripheral pulses 2+ throughout Cardio Narrative: Tachycardic, regular rhythm. GI GI Narrative: Mildly tender to palpation diffusely. Otherwise soft and nondistended. Back/Spine normal ROM Extremity normal to inspection, full ROM and no pedal edema Skin no rashes or lesions noted Neuro moves all extremities and no focal motor deficits Neuro Narrative: Decreased sensation noted in the right foot. Speech: speech normal Psych mental status grossly normal Results Lab / Micro Data 01/27/24 12:15 01/27/24 12:15 Labs: Laboratory Results - last 24 hr 01/27/24 12:15: WBC 12.9 H, RBC 5.32, Hgb 14.9, Hct 44.8, MCV 84.2, MCH 28.0, MCHC 33.3, RDW Std Deviation 40.4, RDW Coeff of [place] 13.2, Plt Count 375, MPV 9.8, Immature Gran % (Auto) 0.400, Neut % (Auto) 65.5, Lymph % (Auto) 26.1, [place] % (Auto) 7.0, Eos % (Auto) 0.5, Baso % (Auto) 0.5, Absolute Neuts (auto) 8.4 H, Absolute Lymphs (auto) 3.36, Nucleated RBC % 0, Sodium 132 L, Potassium 4.0, Chloride 100, Carbon Dioxide 17.0 L, Anion Gap 15, BUN 22 H, Creatinine 1.15, Estim Creat Clear Calc 76.75, Est GFR (MDRD) Af Amer 91, Est GFR (MDRD) Non-Af 76, BUN/Creatinine Ratio 19.1, Glucose 322 H, Calcium 9.6, Total Bilirubin 0.70, AST 17, ALT 15 L, Alkaline Phosphatase 91, Total Protein 9.2 H, Albumin 4.2, Globulin 5.0 H, Albumin/Globulin Ratio 0.8 L, Lipase 47, Urine Color Yellow, Urine Clarity Clear, Urine pH 5.0, Ur Specific [place] 1.025, Urine Protein 30 H, Urine Glucose (UA) 1000 H, Urine Ketones 150 A*, Urine Occult Blood 50 H, Urine Nitrite Negative, Urine Bilirubin Negative, Urine Urobilinogen Normal, Ur Leukocyte Esterase Negative, Urine RBC 5-10 SEEN, Urine WBC 0 SEEN, Ur Squamous Epith Cells 0 SEEN, Urine Bacteria 0 SEEN, Urine Mucus 0 SEEN Assessment & Plan Assessment/Plan (1) DKA (diabetic ketoacidoses): (2) Type 2 diabetes mellitus with hyperglycemia: (3) Hypertension: PLAN: Plan Patient is a 38-year-old male who presented to [facility] ED on 01/27/2024 with intractable nausea and vomiting and abdominal pain. 1. Mild DKA, poorly controlled diabetes mellitus with hyperglycemia, suspected diabetic neuropathy and concern for gastroparesis ? Mild DKA on admit as evidenced by glucose 322, sodium 132, bicarb 17, anion gap 15, urine ketones 150, nausea/vomiting and poor appetite on admit. ? Diagnosed with diabetes in 2014, A1c 13.9% at that time. Has been treated like type 2 diabetes but patient was in late 20s and had fairly thin body habitus at that time. No A1c's recorded in our system after that. Was on metformin for a time, current medications now glipizide 10 mg daily and pioglitazone 15 mg daily. Patient reports good compliance with these meds. ? Have high concern that patient has had uncontrolled diabetes for many years that has now led to complications including diabetic neuropathy, diabetic retinopathy, proteinuria, and possible gastroparesis. ? A1c 11.1% on admit. Patient was given 2 L of IV normal saline in the ED, as well as Humalog 10 units x 1 dose. ? He underwent an upper endoscopy previously was discovered to have severe gastric ulcers likely secondary to gastroparesis. We will perform a repeat upper endoscopy today to evaluate his upper GI tract. Reviewed. There are no clinical changes since date of exam.
[2024-04-04 14:12] VITALS: BP 166/100; PULSE 90; RESP 16; TEMP 36.6; O2SAT 100; BMI 24.1
[2024-04-04] MEDS: Lactated Ringers 1,000 ML 15 ML IV (14:20)
[2024-04-04 14:35] LABS: Bedside Glucose 118 mg/dL (74-106)
--- NOTE | 2024-04-04 15:00 | EGD_PTH ---
PATIENT: DILSHAD PULIDO LOC: EN U#:[id number] AGE/SX: 38/M ROOM: RE04/04/[address]: Dr. Jaycob Argueta DO : 1985 BED: DIS: 04/04/2024 SPEC #: [id number] RECD: 04/04/24 18:35 STATUS: SILVANO WILFRED #: [id number] FAHAD: 04/04/24 15:[address]: Jaycob Argueta DEPT: SURGICAL PATHOLOGY RECD BY: Jeanne Fuentes ENTERED: 04/05/24 09:26 SP TYPE: EGD BIOPSY SAVAGE DR: Heena Barbosa, COMMERCIAL REAL ESTATE AGENT-C Tissues: Esophagus, NOS Procedures: Special Stain Group I Surgery Specimen Level IV Alcian Blue/PAS (control) HEADER OPERATION: EGD biopsy PRE-OP DIAGNOSIS: Nausea/vomiting TISSUE SUBMITTED: Distal esophagus biopsy MICROSCOPIC DIAGNOSIS Distal esophagus, biopsy: Gastroesophageal junctional mucosa with mild chronic inflammation. 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 No evidence of dysplasia. See comment. AM/mr 04/06/2024 COMMENT Alcian blue/PAS stain with matched control supports the above diagnosis. Immunohistochemistry ([id number]) for P53 and Ki-67 will be performed and results will be reported separately. MICROSCOPIC DESCRIPTION Slides are reviewed. GROSS DESCRIPTION Received in fixative is one container labeled with the patient's name and designated Distal esophagus biopsy. The specimen consists of two irregular fragments of [place] soft tissue that in aggregate measure 0.6 x 0.6 x 0.1 cm. The specimen is totally submitted in one cassette. AM/mr 04/05/2024 TC:3 CPT:05774
--- NOTE | 2024-04-04 15:48 | OP.EGD_ITS ---
Patient Name: Weston Gamez Procedure Date: 04/04/2024 3:34 PM Date of : 1985 Age: 38 Procedure: Upper GI endoscopy Indications: Epigastric abdominal pain, Peptic ulcer Providers: Jaycob Argueta DO Referring MD: Earlene Geller Medicines: Monitored Anesthesia Care Patient Profile: This is a 38 year old male. Refer to note in patient chart for documentation of history and physical. Patient has symptoms of chronic abdominal cramping, chronic abdominal distention and chronic epigastric abdominal pain. Complications: No immediate complications. Procedure: Pre-Anesthesia Assessment: - Prior to the procedure, a History and Physical was performed, and patient medications and allergies were reviewed. The risks and benefits of the procedure and the sedation options and risks were discussed with the patient. All questions were answered and informed consent was obtained. Patient identification and proposed procedure were verified by the physician. Mental Status Examination: normal. Prophylactic Antibiotics: The patient does not require prophylactic antibiotics. Prior Anticoagulants: The patient has taken no anticoagulant or antiplatelet agents. ASA Grade Assessment: III - A patient with severe systemic disease. After reviewing the risks and benefits, the patient was deemed in satisfactory condition to undergo the procedure. The anesthesia plan was to use monitored anesthesia care (MAC). Immediately prior to administration of medications, the patient was re-assessed for adequacy to receive sedatives. The heart rate, respiratory rate, oxygen saturations, blood pressure, adequacy of pulmonary ventilation, and response to care were monitored throughout the procedure. The physical status of the patient was re-assessed after the procedure. After obtaining informed consent, the endoscope was passed under direct vision. Throughout the procedure, the patient's blood pressure, pulse, and oxygen saturations were monitored continuously. The Endoscope was introduced through the mouth, and advanced to the second part of duodenum. The upper GI endoscopy was accomplished without difficulty. The patient tolerated the procedure well. Scope In: 3:41:30 PM Scope Out: 3:43:48 PM Total Procedure Duration Time 0 hours 2 minutes 18 seconds Findings: There were esophageal mucosal changes suggestive of Blakely's esophagus present in the lower third of the esophagus. The maximum longitudinal extent of these mucosal changes was 2 cm in length. Mucosa was biopsied with a cold forceps for histology in a targeted manner at intervals of 1 cm in the lower third of the esophagus. One specimen bottle was sent to pathology. Verification of patient identification for the specimen was done. Estimated blood loss was minimal. A small hiatal hernia was present. A medium amount of food (residue) was found in the gastric body. Food (residue) was found in the duodenal bulb. 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 Biopsied. - Small hiatal hernia. - A medium amount of food (residue) in the stomach. - Retained food in the duodenum. Recommendation: - Discharge patient to home. - Resume previous diet. - Continue present medications. - Await pathology results. Procedure Code(s): --- Professional --- 19620, Esophagogastroduodenoscopy, flexible, transoral; with biopsy, single or multiple CPT copyright 2021 [employer]. All rights reserved. The codes documented in this report are preliminary and upon manager welding review may be revised to meet current compliance requirements. Jaycob Argueta DO 04/04/2024 3:48:22 PM This report has been signed electronically. Number of Addenda: 0 Note Initiated On: 04/04/2024 3:34 PM
--- NOTE | 2024-04-04 15:48 | OP.CCLET_ITS ---
04/04/2024 Earlene Geller Re : Upper GI endoscopy procedure for Weston Gamez Noemyr Chelsey This procedure was performed on Thursday, April 04, 2024. 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 Biopsied. - Small hiatal hernia. - A medium amount of food (residue) in the stomach. - Retained food in the duodenum. Recommendations : - Discharge patient to home. - Resume previous diet. - Continue present medications. - Await pathology results. My findings are described in the full procedure note, which is enclosed. If I can be of further assistance, please feel free to contact me at . Sincerely, Jaycob Argueta, 04/04/2024 3:48:22 PM This report has been signed electronically.
[2024-04-04 15:51] VITALS: BP 127/79; BP 166/100; PULSE 16; RESP 86; TEMP 36.3; O2SAT 96
[2024-04-04 15:56] VITALS: BP 109/90; BP 166/100; PULSE 86; RESP 18; O2SAT 97
[2024-04-04 16:00] VITALS: BP 109/76; BP 166/100; PULSE 89; RESP 16; TEMP 36.3; O2SAT 95
[2024-04-04 16:16] VITALS: BP 166/100
== END 2024-04-04 16:27 | disposition home or self-care (01) ==
LOC: EN 13:59 → AC 14:00
PROVIDERS: PCP Nurse Practitioner Family; Referring Provider Nurse Practitioner Family; Visit Provider Internal Medicine Gastroenterology
PROC: 0DJ08ZZ Inspection of Upper Intestinal Tract, Via Natural or Artificial Opening Endoscopic (ICD-10-PCS; CPT 43235; principal; 2024-04-04 14:55)
DX: R10.13 Epigastric pain (principal); F25.9 Schizoaffective disorder, unspecified; F31.9 Bipolar disorder, unspecified; E11.10 Type 2 diabetes mellitus with ketoacidosis without coma; E11.65 Type 2 diabetes mellitus with hyperglycemia; Z79.4 Long term (current) use of insulin; F17.210 Nicotine dependence, cigarettes, uncomplicated; I10 Essential (primary) hypertension; K44.9 Diaphragmatic hernia without obstruction or gangrene; K22.70 Barrett's esophagus without dysplasia; Z79.899 Other long term (current) drug therapy
CPT/HCPCS: 43239; 82962; 88305; 88312; 88341; 88342; J7120; J2405

== ENCOUNTER 2024-05-14 14:49 | Emergency (ER) | payer MEDICARE, MEDICAID, SELFPAY ==
[2024-05-14 14:50] VITALS: BP 121/102; PULSE 103; RESP 20; TEMP 36.4; O2SAT 100; BMI 23.0
--- NOTE | 2024-05-14 15:20 | ED.VIS.GI ---
HPI HPI - GI History of Present Illness Chief Complaint: Abd Pain Abdominal Pain/Flank Pain Onset: Weeks (1) Context: Gradual Onset Timing: Continuous Quality: Aching, Burning, Cramping, Dull and Sharp Location: RLQ Worsened by: Nothing Relieved by: Nothing Nausea/Vomiting/Emesis GI Symptom: Positive for Nausea and Vomiting Quality: Positive for Nonbilious; Negative for Blood streaks, Coffee ground or Hematemesis Diarrhea/Melena/Hematochezia GI Symptom: Negative for Diarrhea, Melena or Hematochezia Associated Symptoms Associated Symptoms: Negative for Dysuria, Frequency or Hematuria Narrative Narrative: Patient presents with abdominal pain that has been constant for the past week. Patient states he was seen in the emergency department in [place] a week ago. Patient states he was discharged from the emergency department. Patient states he was able to go to [place] for a week and came back. Patient states he has been having the abdominal pain while he was in [place]. Patient states it has been waxing and waning. Patient states that his mainly in the right lower abdomen. Patient states it has been constant. Patient states it is sharp, aching, cramping, burning, and dull. Patient states nothing makes it better and nothing makes it worse. Patient admits to some nausea and vomiting. Patient denies any hematemesis or coffee-ground emesis. Patient denies any diarrhea, melena, or hematochezia. Patient admits to some subjective chills. Patient denies any fevers. Patient denies any urinary complaints. Patient states he has a history of diabetes and gastroparesis. Patient states he also uses medical marijuana. [facility] Medical History Hypertension Substance abuse Schizophrenia Anxiety Depression Smoker Migraines Type 2 diabetes mellitus with hyperglycemia Schizo-affective schizophrenia Bipolar 1 disorder Diabetes mellitus Home Medications ?Medication ?Instructions ?Recorded ?Last Taken ?Type insulin glargine-yfgn 100 unit/mL 15 unit (0.15 mL) subcut QHS #15 mL 01/29/24 Unknown Rx (3 mL) subcutaneous pen gabapentin 100 mg capsule 100 mg PO TID 02/17/24 Unknown History pen needle, diabetic 32 gauge x #100 ea 03/29/24 Unknown Rx (BD Ultra-Fine Lizzeth Pen Needle) insulin lispro 100 unit/mL 5 unit subcut TID 03/30/24 Unknown History subcutaneous pen (Humalog KwikPen (U-100) Insulin) blood-glucose sensor (Dexcom G7 #3 ea 04/06/24 Unknown Rx Sensor device) lisinopril 20 mg tablet 20 mg PO DAILY #30 tabs 05/01/24 Unknown Rx metoclopramide HCl 5 mg tablet 5 mg PO Q6H #120 tabs 05/01/24 Unknown Rx pantoprazole 40 mg tablet,delayed 40 mg PO BID #60 tabs 05/01/24 Unknown Rx release blood-glucose meter,continuous #1 ea 05/04/24 Unknown Rx (Dexcom G7 Facilities Supervisor) Allergy/AdvReac Type Severity Reaction Status Date / Time No Known Allergies Allergy Verified 05/14/24 14:52 Family History Mother Diabetes Sister Diabetes Father CVA (cerebral vascular accident) Myocardial infarction Surgical History no surgical history no surgical history Social History household members: spouse Smoking Status: Current some day smoker tobacco type: cigarettes Tobacco: How many years used: 10 Electronic Cigarette Use: without nicotine second hand exposure: No alcohol intake: former substance use type: marijuana ROS ROS ED Constitutional Constitutional ED: Reports chills and subjective; Denies fever(s) Eyes Eyes: Denies blurry vision or change in vision ENT ENT ED: Denies rhinorrhea or sore throat Cardiovascular Cardiovascular: Denies chest pain or palpitations Respiratory/Chest Respiratory/Chest: Denies cough or dyspnea Gastrointestinal Gastrointestinal: Reports abdominal pain, nausea and vomiting Genitourinary Genitourinary ED: Denies dysuria or hematuria Musculoskeletal Musculoskeletal: Denies back pain or neck pain Integumentary Denies abscess or rash Neurologic Neurologic: Denies headache(s) or weakness Allergic/Immunologic Allergic/Immunologic ED: Denies mouth swelling or urticaria EXAM Physical Exam Const Vital Signs: 05/14/24 14:50 05/14/24 18:00 Temperature 97.6 F L Temperature Source Temporal Pulse Rate 103 H 94 Respiratory Rate 20 H 16 Blood Pressure 121/102 H 134/80 H Blood Pressure Mean 108 98 Pulse Ox 100 99 Oxygen Delivery Method Room Air Positive well nourished and well developed General Appearance ED: well developed and NAD HEENT Reports moist mucous membranes Neck supple and no JVD Resp normal respiratory effort and clear to auscultation bilaterally Cardio regular rhythm Rate: tachycardic GI non-distended Palpation: soft and tender RLQ; Negative for guarding or rebound tenderness present Extremity full ROM Neuro CN's II-XII intact bilaterally, moves all extremities and no sensory deficits noted Sensorium / Orientation: alert Motor Exam: strength 5/5 throughout Psych mental status grossly normal MDM MDM MDM Narrative Medical decision making narrative: Differential diagnosis includes gastroparesis, DKA, appendicitis, ureteral calculus, pyelonephritis, diverticulitis, pancreatitis, bowel obstruction, perforation, and urinary tract infection. CBC will be obtained to assess for leukocytosis and anemia. Comprehensive metabolic profile will be obtained to assess for electrolyte abnormality and renal function. Lipase will be obtained to assess for pancreatitis. Urinalysis will be obtained to assess for urinary tract infection and hematuria. CT scan of the abdomen pelvis will be obtained to assess for appendicitis, pyelonephritis, ureteral calculus, bowel obstruction, and perforation. Lab Data Attestation: I reviewed the patient's lab results. Lab results narrative: CBC was reviewed and was within normal limits. Comprehensive metabolic profile was reviewed. Glucose was elevated at 241. Anion gap was normal. BUN was slightly elevated at 30. Creatinine was normal at 1.21. The remainder was essentially within normal limits. Lipase was reviewed and was normal at 39. Urinalysis was reviewed there is glucosuria over 1000. There is no evidence of urinary tract infection or hematuria. Labs: Laboratory Results - last 24 hr 05/14/24 05/14/24 15:27 17:25 WBC 10.5 RBC 4.62 Hgb 13.3 Hct 39.7 L MCV 85.9 MCH 28.8 MCHC 33.5 RDW Std Deviation 39.5 RDW Coeff of [place] 12.6 Plt Count 379 MPV 10.0 Immature Gran % (Auto) 0.200 Neut % (Auto) 67.8 Lymph % (Auto) 22.3 [place] % (Auto) 8.1 Eos % (Auto) 0.9 Baso % (Auto) 0.7 Absolute Neuts (auto) 7.1 Absolute Lymphs (auto) 2.33 Nucleated RBC % 0 Sodium 134 L Potassium 3.8 Chloride 102 Carbon Dioxide 24.0 Anion Gap 8 BUN 30 H Creatinine 1.21 Estim Creat Clear Calc 74.70 Est GFR (MDRD) Af Amer 86 Est GFR (MDRD) Non-Af 71 BUN/Creatinine Ratio 24.8 H Glucose 241 H Calcium 9.5 Total Bilirubin 0.40 AST 18 ALT 12 L Alkaline Phosphatase 80 Total Protein 8.3 H Albumin 4.0 Globulin 4.3 H Albumin/Globulin Ratio 0.9 Lipase 39 Urine Color Yellow Urine Clarity Clear Urine pH 6.0 Ur Specific [place] 1.020 Urine Protein 30 H Urine Glucose (UA) 1000 H Urine Ketones 50 H Urine Occult Blood 50 H Urine Nitrite Negative Urine Bilirubin Negative Urine Urobilinogen 4 H Ur Leukocyte Esterase 25 H Urine RBC 0 SEEN Urine WBC 0-5 SEEN Ur Squamous Epith Cells 0-5 SEEN Urine Bacteria 0 SEEN Urine Mucus 1+ Radiography Diagnostic Testing: Clinical Impression(s) from Imaging Studies Abdomen/Pelvis CT 05/14/24 15:27 IMPRESSION: No acute abdominal or pelvic abnormality. Electronically Signed: Weston Fowler MD at 16:30 EDT Reading Location ID and State: [facility] / [place] Tel , Service support , CT scan of the abdomen pelvis was obtained. There is no acute abnormality noted. There is no free air or free fluid noted. This was interpreted by the radiologist was also independently reviewed by myself. Treatment and Re-Evaluation :: Smoking cessation was discussed. Patient was given IV fluids. Patient was given morphine and Zofran. Patient was feeling better on reevaluation. Patient was advised of his findings. Patient was instructed to start with a bland diet and advance as tolerated. Patient was instructed to follow-up with his primary care physician in 5 to 7 days for further evaluation. Patient understood and was agreeable with the plan. All questions were answered. Discharge Plan Triage Chief Complaint: Abd Pain ED Provider: Marco Solano Dx/Rx/DC Orders Clinical Impression: Abdominal pain, Diabetes Instructions: ED Abdominal Pain Unkn Cause Male... Prescriptions: No Action gabapentin 100 mg capsule 100 mg PO TID (DME) Dexcom G7 Sensor Device See Rx Instructions .Route Qty: 3 5RF Rx Instructions: 1 sensor q 10 days insulin lispro [Humalog KwikPen Insulin] 100 unit/mL insulin pen 5 unit subcut TID Patient Comments: PT STATES HE TAKES BEFORE MEALS insulin glargine-yfgn 100 unit/mL (3 mL) Insulin Pen 15 unit subcut QHS Qty: 15 2RF (DME) pen needle, diabetic [BD Ultra-Fine Lizzeth Pen Needle] 32 gauge x 5/32 needle See Rx Instructions .Route Qty: 100 5RF Rx Instructions: 4x/day lisinopril 20 mg tablet 20 mg PO DAILY Qty: 30 6RF metoclopramide HCl 5 mg tablet 5 mg PO Q6H Qty: 120 1RF pantoprazole 40 mg tablet,delayed release (DR/EC) 40 mg PO BID Qty: 60 2RF (DME) Dexcom G7 Facilities Supervisor Misc See Rx Instructions .Route Qty: 1 0RF Rx Instructions: As directed Primary Care Provider: Heena Barbosa Referrals: Heena Barbosa, [facility] [employer] [Primary Care Provider] - 5-7 Days Print Language: Yakut Disposition Disposition: Home, Self Care
--- NOTE | 2024-05-14 15:27 | CT_ITS ---
EXAM: CT ABDOMEN AND PELVIS WITH INTRAVENOUS CONTRAST CLINICAL INDICATION: Abdominal pain TECHNIQUE: Helically acquired images were obtained of the abdomen and pelvis with intravenous contrast. This CT exam was performed using one or more of the following dose reduction techniques: automated exposure control, adjustment of the mA and/or kV according to patient size, and/or use of iterative reconstruction technique. CONTRAST: IV 80mL [id number] COMPARISON: CT Abdomen Pelvis dated 01/29/2015 FINDINGS: LOWER THORAX: Normal. Lung bases are clear. No cardiomegaly. No pericardial effusion. ABDOMEN: LIVER: Normal. Homogeneous. No focal mass. GALLBLADDER AND BILE DUCTS: Normal. No calcified gallstones. No gallbladder distention or wall edema. No intra- or extrahepatic biliary ductal dilation. PANCREAS: Normal. No focal cystic or solid mass. SPLEEN: Normal. Normal size without focal cystic or solid mass. ADRENALS: Normal. No nodules. KIDNEYS AND URETERS: Normal. Normal renal size and position. No hydronephrosis. STOMACH AND BOWEL: Normal. No bowel distention. No focal inflammatory change. PELVIS: APPENDIX: Appendix is visualized and normal in appearance. BLADDER: Normal. REPRODUCTIVE: Unremarkable as visualized. No mass. ABDOMEN and PELVIS: INTRAPERITONEAL SPACE: Normal. No ascites or other fluid collection. No free air. BONES/JOINTS: No suspicious lytic or blastic abnormality. SOFT TISSUES: Normal. No discrete abdominal or pelvic wall hernia. VASCULATURE: Normal. Abdominal aorta is non-dilated. LYMPH NODES: Normal. No enlarged lymph nodes. CT/Abdomen/Pelvis W IV Cont ONLY IMPRESSION: No acute abdominal or pelvic abnormality. Electronically Signed: Weston Fowler MD at 16:30 EDT ,
[2024-05-14] MEDS: Ondansetron 4 MG/2 ML Vial IV (15:35)
[2024-05-14] MEDS: 0.9% Normal Saline (1000mL) 1,000 ML 999 ML IV (15:35)
[2024-05-14] MEDS: Morphine 4 MG/ML Syringe IV (15:35)
[2024-05-14 15:46] LABS: Absolute Lymphocyte Count 2.33 X10^3/uL (0.83-4.51); Absolute Neutrophil Count 7.1 X10^3/uL (2.0-7.7); Basophil# 0.07 X10^3/uL; Basophil% 0.7 % (0-1); Eosinophil# 0.09 X10^3/uL; Eosinophils% 0.9 % (0-5); Hematocrit 39.7 % (40-54); Hemoglobin 13.3 g/dL (13.0-16.5); Lymphocyte # 2.33 X10^3/ul (0.83-4.51); Lymphocyte % 22.3 % (19-41); Mean Corp Hgb Conc 33.5 g/dL (32-36); Mean Corpuscular Hgb 28.8 pg (27.0-32.0); Mean Corpuscular Volume 85.9 fL (80-94); Monocyte# 0.85 X10^3/uL; Monocyte% 8.1 % (0-10); NRBC Flagged by Analyzer 0 % (0-5); Neutrophil # 7.11 X10^3/uL (2.7-7.7); Neutrophil % 67.8 % (47-70); Platelet Count 379 K/mm3 (150-450); RBC Distribution Width CV 12.6 % (11.6-14.6); RBC Distribution Width SD 39.5 fl (35.1-43.9); Red Blood Count 4.62 M/mm3 (4.6-6.2); White Blood Count 10.5 K/mm3 (4.4-11.0)
[2024-05-14 15:58] LABS: ALB/GLOB Ratio 0.9 RATIO (0.9-2.4); AST(SGOT) 18 U/L (15-37); Alanine Aminotransfer ALT/SGPT 12 U/L (16-61); Alkaline Phosphatase 80 U/L (45-117); Anion Gap 8 (5-15); BUN 30 mg/dL (7-18); BUN/Creat Ratio 24.8 RATIO (10-20); Calcium,Total 9.5 mg/dL (8.5-10.1); Chloride 102 mmol/L (98-107); Creatinine, Serum 1.21 mg/dL (0.70-1.30); EST Glomerular Filtration Rate 71 mL/min (>60); Est Glom Filt Rate - Afr Amer 86 mL/min (>60); Globulin 4.3 g/dL (2.2-4.2); Glucose 241 mg/dL (74-106); Lipase 39 U/L (13-75); Potassium 3.8 mmol/L (3.5-5.1); Protein, Total 8.3 g/dL (6.4-8.2); Sodium Level 134 mmol/L (136-145)
[2024-05-14 17:28] LABS: Bacteria 0 SEEN /hpf (None Seen); Red Blood Cells-Urine 0 SEEN /hpf (0-5)
[2024-05-14 17:31] LABS: Color, Urine Yellow (Yellow); Glucose, Dipstick 1000 mg/dl (Normal); Ketone-Dipstick 50 mg/dl (Negative); Leukocyte Esterase-Dipstick 25 /ul (Negative); Nitrite-Dipstick Negative (Negative); Occult Blood-Urine 50 /ul (Negative); Protein-Dipstick 30 mg/dl (Negative); Urine Bilirubin Dipstick Negative (Negative); Urine Clarity Clear (Clear); Urine Urobilinogen 4 mg/dl (Normal)
[2024-05-14 17:40] LABS: Squamous Epithelial Cells - UA 0-5 SEEN /hpf (0-5)
[2024-05-14 17:41] LABS: White Blood Cells 0-5 SEEN /hpf (0-5)
[2024-05-14 17:42] LABS: Mucous, Urine 1+ /hpf (<or=2+)
[2024-05-14 18:00] VITALS: BP 134/80; PULSE 94; RESP 16; O2SAT 99
[2024-05-14 18:16] VITALS: BP 132/78; PULSE 61; RESP 15; TEMP 36.4; O2SAT 98
== END 2024-05-14 18:18 | disposition home or self-care (01) ==
PROVIDERS: Emergency Provider Emergency Medicine; PCP Nurse Practitioner Family; Visit Provider Emergency Medicine
DX: R10.31 Right lower quadrant pain (principal); F20.9 Schizophrenia, unspecified; F31.9 Bipolar disorder, unspecified; E11.65 Type 2 diabetes mellitus with hyperglycemia; Z79.4 Long term (current) use of insulin; R11.2 Nausea with vomiting, unspecified; I10 Essential (primary) hypertension; F17.210 Nicotine dependence, cigarettes, uncomplicated; Z79.899 Other long term (current) drug therapy
CPT/HCPCS: 74177; 80053; 81001; 83690; 85025; 96361; 96374; 96375; 99283; J7030; Q9967; A4216; J2405

== ENCOUNTER 2024-07-28 22:15 | Emergency (ER) | payer MEDICARE, MEDICAID, SELFPAY ==
[2024-07-28 22:15] VITALS: BP 187/104; PULSE 95; RESP 20; TEMP 36.4; O2SAT 100; BMI 24.0
--- NOTE | 2024-07-28 22:19 | EDS_ITS ---
HPI History of Present Illness Chief Complaint: Abd Pain [facility] Medical History Hypertension Substance abuse Schizophrenia Anxiety Depression Smoker Migraines Type 2 diabetes mellitus with hyperglycemia Schizo-affective schizophrenia Bipolar 1 disorder Diabetes mellitus Home Medications ?Medication ?Instructions ?Recorded ?Last Taken ?Type insulin glargine-yfgn 100 unit/mL 15 unit (0.15 mL) subcut QHS #15 mL 01/29/24 Unknown Rx (3 mL) subcutaneous pen pen needle, diabetic 32 gauge x #100 ea 03/29/24 Unknown Rx /32 (BD Ultra-Fine Lizzeth Pen Needle) insulin lispro 100 unit/mL 5 unit subcut TID 03/30/24 Unknown History subcutaneous pen (Humalog KwikPen (U-100) Insulin) lisinopril 20 mg tablet 20 mg PO DAILY #30 tabs 05/01/24 Unknown Rx pantoprazole 40 mg tablet,delayed 40 mg PO BID #60 tabs 05/01/24 Unknown Rx release blood-glucose meter,continuous #1 ea 05/04/24 Unknown Rx (Dexcom G7 It Desktop Support Specialist) gabapentin 100 mg capsule 200 mg PO TID 06/06/24 Unknown History insulin pump cart,automated,BT #10 ea 07/05/24 Unknown Rx (Omnipod 5 G6 Pods (Gen 5) subcutaneous cartridge) insulin pump cartridge,automated #1 ea 07/05/24 Unknown Rx dose,BT with controller subcutaneous (Omnipod 5 G6 Intro Kit (Gen 5) subcutaneous cartridge with controller) blood-glucose sensor (Dexcom G6 #3 ea 07/27/24 Unknown Rx Sensor device) blood-glucose transmitter (Dexcom #1 ea 07/27/24 Unknown Rx G6 Transmitter device) dicyclomine 10 mg capsule 10 mg PO TID #90 caps 07/28/24 Unknown Rx prochlorperazine maleate 10 mg 10 mg PO TID PRN nausea and 07/28/24 Unknown Rx tablet vomiting #30 tabs scopolamine base 1 mg over 3 days 1 patch transdermal Q3D #4 ea 07/28/24 Unknown Rx transdermal patch metoclopramide HCl 5 mg tablet 5 mg PO Q8H PRN PRN nausea and 07/29/24 Unknown Rx (Reglan) vomiting 7 days #21 tabs Allergy/AdvReac Type Severity Reaction Status Date / Time No Known Allergies Allergy Verified 07/28/24 22:16 Family History Mother Diabetes Sister Diabetes Father CVA (cerebral vascular accident) Myocardial infarction Social History household members: spouse Smoking Status: Current some day smoker tobacco type: cigarettes Tobacco: How many years used: 10 Electronic Cigarette Use: without nicotine second hand exposure: No alcohol intake: former substance use type: marijuana EXAM Physical Exam Const Vital Signs: 07/28/24 22:15 07/28/24 23:46 07/29/24 00:15 Temperature 97.6 F L 97.7 F L Temperature Source Temporal Pulse Rate 95 72 70 Respiratory Rate 20 H 17 17 Blood Pressure 187/104 H 137/57 H 151/90 H Blood Pressure Mean 131 83 110 Pulse Ox 100 99 97 Oxygen Delivery Method Room Air MDM MDM MDM Narrative Medical decision making narrative: HISTORY OF PRESENT ILLNESS: 38-year-old male history of hypertension, schizophrenia, depression, type 2 diabetes, schizoaffective disorder, bipolar disorder presents abdominal pain. Per triage note the patient states history of gastroparesis. He further states he has had 2 days of diffuse abdominal pain intractable nausea and vomiting. His last bowel movement was this morning. It was not dark or bloody. He denies any bilious nature to his vomitus. He denies any hematemesis. Denies history of abdominal surgeries. REVIEW OF SYSTEMS: Pertinent positives: Abdominal pain Pertinent negatives: Melena, hematochezia, dysuria, chest pain PHYSICAL EXAM: Nursing triage notes reviewed, Vital signs reviewed Constitutional: please see mdm HENT: MMM Eyes: Pupils equal round and reactive to light, Extraocular muscles intact Neck: No stridor, no JVD, full neck ROM Lungs: Clear to auscultation, No wheezing or rales. No increased work of breathing, no conversational dyspnea, no accessory muscle use, no nasal flaring. No respiratory distress noted Heart: Regular rate and rhythm, No murmurs, No rubs and No gallops, 2+ distal pulses (radial, femoral, posterior tibial) in all extremities Abdomen: Soft, diffuse TTP but no rigidity, rebound or guarding, no obvious peritoneal signs, no palpable pulsatile abdominal masses, no auscultated abdominal bruit : No CVAT Extremities: No edema Neuro: No focal neurological deficits, cranial nerves II through XII intact, 5/5 strength in all extremities. Intact sensation to light touch in all extremities, 2+ reflexes bilateral patella tendons. Normal gait. No ataxia. Skin: No rash or lesions noted MEDICAL DECISION MAKING: Chief Complaint: Abdominal pain External records reviewed: Reviewed prior imaging: CT scan of the abdomen pelvis from May 2024 shows no acute abdominal pelvic abnormality Factors affecting care: As per HPI Social determinants of health: History of health disorder History obtained from others: none Consults: none [facility] Narrative: The patient was initially hypertensive with a blood pressure 187/104 otherwise afebrile and nontoxic-appearing. Abdominal exam with diffuse tenderness but without rebound or guarding. I considered the following differential diagnosis: AAA, small bowel obstruction, abdominal perforation, appendicitis, pancreatitis, hepatobiliary pathology (acute cholecystitis), mesenteric ischemia, pathology (ie nephrolithiasis, pyelonephritis). I obtained a broad lab and imaging workup to further elucidate the etiology of patient complaints. I treat the patient symptomatically with 1 L IV fluid, 10 mg milligrams of IV Reglan, 20 mg Pepcid, 20 mg IM Bentyl, 50 mg of IV Toradol. ALL IMAGES (IF OBTAINED) HAVE BEEN PERSONALLY REVIEWED AND INTERPRETED BY MYSELF. CBC with leukocytosis suggestive of systemic inflammation, similar to prior studies, mild anemia, no thrombocytopenia BMP with mild hyponatremia consistent with nausea vomiting, no evidence of other significant electrolyte maladies, there is evidence of metabolic acidosis or endorgan hypoperfusion with normal anion gap andof DKA, there is no DONNA LFTs without evidence hepatobiliary obstruction Lipase is wnl indicating no pancreatic inflammation. CT scan abdomen pelvis shows evidence of gastritis otherwise no signs of obstruction or perforation or other surgical emergency. Upon reevaluation the patient's abdominal exam remained benign. Blood pressure improved to 137/57. He was able to tolerate small aliquots of p.o. fluid. Patient was prescribed Reglan for home-going and discharged stable condition. Recommended prompt and close GI follow-up with Dr. Argueta. The patient and/or family, caregivers express understanding. The patient and/or family, caregivers agrees with the plan. Shared decision making: I will have a discussion with the patient and or visitors regarding risk/benefits of further testing or admission. They will be made aware of of the risk/benefits inherent in this decision they will be given the opportunity to voice understanding. Total critical care time today provided was at least 0 minutes. This excludes separately billable procedures. Critical care time (if documented) is secondary to the patient having high probability of clinically significant/life threatening deterioration in the patient's condition which required my urgent intervention. Impression: 1. Abdominal pain 2. History of gastroparesis 3. Nausea and vomiting Dispo: Discharge home This note was generated with [employer] dictation software. It may contain incorrect words, spelling, and punctuation that were not noted in review of the chart prior to signing. Lab Data Labs: Laboratory Results - last 24 hr 07/28/24 22:35 WBC 12.3 H RBC 4.52 L Hgb 12.9 L Hct 38.9 L MCV 86.1 MCH 28.5 MCHC 33.2 RDW Std Deviation 39.4 RDW Coeff of [place] 12.5 Plt Count 385 MPV 9.7 Immature Gran % (Auto) 0.300 Neut % (Auto) 77.6 H Lymph % (Auto) 14.8 L Bowie % (Auto) 6.4 Eos % (Auto) 0.2 Baso % (Auto) 0.7 Absolute Neuts (auto) 9.5 H Absolute Lymphs (auto) 1.82 Nucleated RBC % 0 Sodium 133 L Potassium 3.7 Chloride 100 Carbon Dioxide 21.0 Anion Gap 12 BUN 18 Creatinine 1.03 Estim Creat Clear Calc 87.75 Est GFR (MDRD) Af Amer 104 Est GFR (MDRD) Non-Af 86 BUN/Creatinine Ratio 17.5 Glucose 259 H Calcium 9.3 Total Bilirubin 0.40 AST 41 H ALT 28 Alkaline Phosphatase 110 Total Protein 8.7 H Albumin 4.1 Globulin 4.6 H Albumin/Globulin Ratio 0.9 Lipase 20 Radiography Diagnostic Testing: Clinical Impression(s) from Imaging Studies Abdomen/Pelvis CT 07/28/24 22:27 IMPRESSION: Thickening of the gastric wall and folds which is a nonspecific finding but may represent gastritis if correlated clinically. No other evidence of an acute intra-abdominal abnormality. Electronically Signed: Lupillo Mejia DO at 23:40 EDT , Discharge Plan Triage Chief Complaint: Abd Pain ED Provider: Jose R Osorio Dx/Rx/DC Orders Clinical Impression: Gastroparesis Instructions: Gastroparesis Prescriptions: New metoclopramide HCl [Reglan] 5 mg tablet 5 mg PO Q8H PRN PRN (Reason: nausea and vomiting) 7 Days Qty: 21 0RF No Action gabapentin 100 mg capsule 200 mg PO TID (DME) Omnipod 5 G6 Intro Kit (Gen 5) Cartridge See Rx Instructions .Route Qty: 1 0RF Rx Instructions: As directed (DME) Omnipod 5 G6 Pods (Gen 5) Cartridge See Rx Instructions .Route Qty: 10 5RF Rx Instructions: 1 pod q 3 days Please make sure that pods are G7 compatible insulin lispro [Humalog KwikPen Insulin] 100 unit/mL insulin pen 5 unit subcut TID Patient Comments: PT STATES HE TAKES BEFORE MEALS insulin glargine-yfgn 100 unit/mL (3 mL) Insulin Pen 15 unit subcut QHS Qty: 15 2RF (DME) pen needle, diabetic [BD Ultra-Fine Lizzeth Pen Needle] 32 gauge x 5/32 needle See Rx Instructions .Route Qty: 100 5RF Rx Instructions: 4x/day lisinopril 20 mg tablet 20 mg PO DAILY Qty: 30 6RF pantoprazole 40 mg tablet,delayed release (DR/EC) 40 mg PO BID Qty: 60 2RF (DME) Dexcom G7 It Desktop Support Specialist Misc See Rx Instructions .Route Qty: 1 0RF Rx Instructions: As directed (DME) Dexcom G6 Sensor Device See Rx Instructions .Route Qty: 3 5RF Rx Instructions: 1 sensor q 10 days (DME) Dexcom G6 Transmitter Device See Rx Instructions .Route Qty: 1 1RF Rx Instructions: 1 transmitter q 90 days scopolamine base 1 mg over 3 days patch 3 day 1 patch transdermal Q3D Qty: 4 0RF prochlorperazine maleate 10 mg tablet 10 mg PO TID PRN (Reason: nausea and vomiting) Qty: 30 3RF dicyclomine 10 mg capsule 10 mg PO TID Qty: 90 1RF Stand Alone Forms: ED Work / School Excuse Primary Care Provider: Heena Barbosa Referrals: Friend,Jaycob, DO [Med Staff - Active Staff] - Activity Restrictions/Additional Instructions: Thank you for trusting us with your care today! You are likely suffering from a flare of your known gastroparesis Please take Reglan instead of Compazine for Nausea vomiting relief. Please continue taking pantoprazole as already prescribed. Please take Tylenol (2 pills, 650 mg), ibuprofen (2 pills, 400 mg) every 6 hours as needed for pain and fever control. Please return to the emergency department if your symptoms change or worsen. Please follow with your Cloth Dye Range Operator (Dr. Argueta) for further outpatient evaluation and management. Print Language: [place] Disposition Disposition: Home, Self Care
--- NOTE | 2024-07-28 22:27 | CT_ITS ---
INDICATION: abdominal pain EXAMINATION: CT Abdomen And Pelvis W/ Contrast Injection TECHNIQUE: Helically acquired images were obtained of the abdomen and pelvis with sagittal and coronal reconstructed images. Individualized dose optimization techniques were used for this CT. IV contrast dosage and agent: 100 mL of Isovue-370. Oral contrast: None. COMPARISON: 05/14/2024 CT. FINDINGS: VESSELS: No abdominal aortic aneurysm or dissection. LIVER: No evidence of a mass. No intrahepatic or extrahepatic biliary duct dilation. GALLBLADDER: No calcified stones. No evidence of cholecystitis. PANCREAS: No focal solid or cystic mass. No evidence of pancreatitis. SPLEEN: Normal. ADRENAL GLANDS: Normal. KIDNEYS AND URETERS: No urinary tract stone. No hydronephrosis or hydroureter. No significant asymmetric perinephric stranding. URINARY BLADDER: Unremarkable. BOWEL: No evidence of diverticulosis or diverticulitis. Appendix appears normal. No evidence of bowel obstruction. Thickening of the gastric wall and folds. REPRODUCTIVE ORGANS: No evidence of a pelvic mass. PERITONEUM: No intraabdominal free fluid or free air. LYMPH NODES: No pathologically enlarged mesenteric or retroperitoneal lymph nodes. ABDOMINAL WALL: No abdominal or pelvic wall hernia. BONES: No acute abnormality. LOWER CHEST: Visualized lung bases are unremarkable. CT/Abdomen/Pelvis W IV Cont ONLY IMPRESSION: Thickening of the gastric wall and folds which is a nonspecific finding but may represent gastritis if correlated clinically. No other evidence of an acute intra-abdominal abnormality. Electronically Signed: Lupillo Mejia DO at 23:40 EDT ,
[2024-07-28] MEDS: Metoclopramide 10 MG/2 ML Vial IV (22:46)
[2024-07-28] MEDS: Ketorolac 15 MG/ML Vial IV (22:46)
[2024-07-28] MEDS: Dicyclomine 20 MG/2 ML Vial IM (22:46)
[2024-07-28] MEDS: 0.9% Normal Saline (1000mL) 1,000 ML 999 ML IV (22:46)
[2024-07-28] MEDS: Famotidine 200 MG/20 ML MDV 20 MG in 0.9% Normal Saline (Pres. free 8 ML 300 MG IV (22:47)
[2024-07-28 22:56] LABS: Absolute Lymphocyte Count 1.82 X10^3/uL (0.83-4.51); Absolute Neutrophil Count 9.5 X10^3/uL (2.0-7.7); Basophil# 0.08 X10^3/uL; Basophil% 0.7 % (0-1); Eosinophil# 0.02 X10^3/uL; Eosinophils% 0.2 % (0-5); Hematocrit 38.9 % (40-54); Hemoglobin 12.9 g/dL (13.0-16.5); Lymphocyte # 1.82 X10^3/ul (0.83-4.51); Lymphocyte % 14.8 % (19-41); Mean Corp Hgb Conc 33.2 g/dL (32-36); Mean Corpuscular Hgb 28.5 pg (27.0-32.0); Mean Corpuscular Volume 86.1 fL (80-94); Mean Platelet Vol. 9.7 fl (6.2-12.0); Monocyte# 0.79 X10^3/uL; Monocyte% 6.4 % (0-10); NRBC Flagged by Analyzer 0 % (0-5); Neutrophil # 9.54 X10^3/uL (2.7-7.7); Neutrophil % 77.6 % (47-70); Platelet Count 385 K/mm3 (150-450); RBC Distribution Width CV 12.5 % (11.6-14.6); RBC Distribution Width SD 39.4 fl (35.1-43.9); Red Blood Count 4.52 M/mm3 (4.6-6.2); White Blood Count 12.3 K/mm3 (4.4-11.0)
[2024-07-28 23:14] LABS: ALB/GLOB Ratio 0.9 RATIO (0.9-2.4); AST(SGOT) 41 U/L (15-37); Alanine Aminotransfer ALT/SGPT 28 U/L (16-61); Albumin, Serum 4.1 g/dL (3.2-5.0); Alkaline Phosphatase 110 U/L (45-117); Anion Gap 12 (5-15); BUN 18 mg/dL (7-18); BUN/Creat Ratio 17.5 RATIO (10-20); Calcium,Total 9.3 mg/dL (8.5-10.1); Chloride 100 mmol/L (98-107); Creatinine, Serum 1.03 mg/dL (0.70-1.30); EST Glomerular Filtration Rate 86 mL/min (>60); Est Glom Filt Rate - Afr Amer 104 mL/min (>60); Estimated Creatinine Clearance 87.75 ml/min; Globulin 4.6 g/dL (2.2-4.2); Glucose 259 mg/dL (74-106); Lipase 20 U/L (13-75); Potassium 3.7 mmol/L (3.5-5.1); Protein, Total 8.7 g/dL (6.4-8.2); Sodium Level 133 mmol/L (136-145)
[2024-07-28 23:46] VITALS: BP 137/57; PULSE 72; RESP 17; TEMP 36.5; O2SAT 99
[2024-07-29 00:15] VITALS: BP 151/90; PULSE 70; RESP 17; O2SAT 97
== END 2024-07-29 00:48 | disposition home or self-care (01) ==
PROVIDERS: Emergency Provider Emergency Medicine; PCP Nurse Practitioner Family; Visit Provider Emergency Medicine
DX: R10.9 Unspecified abdominal pain (principal); E11.43 Type 2 diabetes mellitus with diabetic autonomic (poly)neuropathy; Z79.4 Long term (current) use of insulin; R11.2 Nausea with vomiting, unspecified; K31.84 Gastroparesis; I10 Essential (primary) hypertension; E87.1 Hypo-osmolality and hyponatremia; K29.70 Gastritis, unspecified, without bleeding; F17.210 Nicotine dependence, cigarettes, uncomplicated; Z79.899 Other long term (current) drug therapy
CPT/HCPCS: 74177; 80053; 83690; 85025; 96361; 96374; 96375; 99282; Q9967; J3490

== ENCOUNTER 2024-07-29 22:06 | Observation (INO) | payer MEDICARE, MEDICAID, SELFPAY ==
[2024-07-29 22:07] VITALS: BP 132/81; PULSE 117; RESP 18; TEMP 36.9; O2SAT 98; BMI 23.8
--- NOTE | 2024-07-29 22:20 | RAD_ITS ---
STUDY: X-RAY CHEST REASON FOR EXAM: Male, 38 years old. abd pain, n/v w/ hematemesis, r/o perf TECHNIQUE: Single AP portable view of the chest. COMPARISON: 10/08/2014 FINDINGS: The lungs are clear and expanded. There is no demonstrated pleural abnormality. Normal size heart. Normal mediastinum and asael. Normal visualized pulmonary arteries. Normal visualized aortic arch and descending thoracic aorta. Normal visualized thoracic spine. Normal visualized ribs, clavicles, and shoulders. There is no demonstrated abnormality of the visualized soft tissue structures of the upper abdomen. RAD/Chest 1 View (Portable) IMPRESSION: Normal x-ray examination of the chest. Electronically Signed: Yang Roland MD at 23:46 EDT ,
--- NOTE | 2024-07-29 22:25 | EDS_ITS ---
HPI HPI - GI History of Present Illness Chief Complaint: Nausea/Vomiting Informant: patient and spouse/S.O. Narrative Narrative: 38-year-old diabetic insulin-dependent with history of gastroparesis has been having recurrent periumbilical/diffuse abdominal pain and intractable vomiting all day for over 11 hours, here yesterday for same symptoms. He was good overnight after leaving the ER but then in the morning started having it all ov er again and has been vomiting to the point of vomiting up streaks of blood as well. The pain is similar in quality and location that it was yesterday. The only symptom that is new is the blood. He was prescribed medication he is not able to keep down. [facility] Medical History Hypertension Substance abuse Schizophrenia Anxiety Depression Smoker Migraines Type 2 diabetes mellitus with hyperglycemia Schizo-affective schizophrenia Bipolar 1 disorder Diabetes mellitus Home Medications ?Medication ?Instructions ?Recorded ?Last Taken ?Type pen needle, diabetic 32 gauge x #100 ea 03/29/24 Unknown Rx (BD Ultra-Fine Lizzeth Pen Needle) insulin lispro 100 unit/mL 6 unit subcut TID 03/30/24 Unknown History subcutaneous pen (Humalog KwikPen (U-100) Insulin) lisinopril 20 mg tablet 20 mg PO DAILY #30 tabs 05/01/24 Unknown Rx pantoprazole 40 mg tablet,delayed 40 mg PO BID #60 tabs 05/01/24 Unknown Rx release blood-glucose meter,continuous #1 ea 05/04/24 Unknown Rx (Dexcom G7 Sack Sewer Machine) gabapentin 100 mg capsule 200 mg PO TID 06/06/24 Unknown History insulin pump cart,automated,BT #10 ea 07/05/24 Unknown Rx (Omnipod 5 G6 Pods (Gen 5) subcutaneous cartridge) insulin pump cartridge,automated #1 ea 07/05/24 Unknown Rx dose,BT with controller subcutaneous (Omnipod 5 G6 Intro Kit (Gen 5) subcutaneous cartridge with controller) blood-glucose sensor (Dexcom G6 #3 ea 07/27/24 Unknown Rx Sensor device) blood-glucose transmitter (Dexcom #1 ea 07/27/24 Unknown Rx G6 Transmitter device) dicyclomine 10 mg capsule 10 mg PO TID #90 caps 07/28/24 Unknown Rx prochlorperazine maleate 10 mg 10 mg PO TID PRN nausea and 07/28/24 Unknown Rx tablet vomiting #30 tabs scopolamine base 1 mg over 3 days 1 patch transdermal Q3D #4 ea 07/28/24 Unknown Rx transdermal patch insulin glargine-yfgn 100 unit/mL 12 unit subcut QHS 07/29/24 Unknown History (3 mL) subcutaneous pen metoclopramide HCl 5 mg tablet 5 mg PO Q8H PRN PRN nausea and 07/29/24 Unknown Rx (Reglan) vomiting 7 days #21 tabs Allergy/AdvReac Type Severity Reaction Status Date / Time No Known Allergies Allergy Verified 07/29/24 22:07 Family History Mother Diabetes Sister Diabetes Father CVA (cerebral vascular accident) Myocardial infarction Social History household members: spouse Smoking Status: Current some day smoker tobacco type: cigarettes Tobacco: How many years used: 10 Electronic Cigarette Use: without nicotine second hand exposure: No alcohol intake: former substance use type: marijuana ROS ROS ED Constitutional Constitutional ED: Reports fatigue; Denies chills or fever(s) Eyes Eyes: Denies change in vision or diplopia ENT ENT ED: Denies rhinorrhea or sore throat Cardiovascular Cardiovascular: Denies chest pain or palpitations Respiratory/Chest Respiratory/Chest: Denies cough or dyspnea Gastrointestinal Gastrointestinal: Reports abdominal pain, hematemesis, nausea and vomiting; Denies diarrhea, hematochezia or melena Genitourinary Genitourinary ED: Denies dysuria or hematuria Musculoskeletal Musculoskeletal: Denies back pain or neck pain Integumentary Denies abscess or rash Neurologic Neurologic: Denies headache(s), paresthesias or weakness Psychiatric Psychiatric: Denies suicidal thoughts EXAM Physical Exam Const Vital Signs: 07/29/24 22:07 07/29/24 23:27 Temperature 98.4 F Temperature Source Temporal Pulse Rate 117 H 94 Respiratory Rate 18 18 Blood Pressure 132/81 H 155/87 H Blood Pressure Mean 98 109 Pulse Ox 98 99 Oxygen Delivery Method Room Air Room Air Positive well nourished and well developed Constitutional Narrative: Uncomfortable and ill-appearing holding his abdomen General Appearance ED: well developed HEENT Reports dry mucous membranes normocephalic and atraumatic Mouth ED: Yes dry mucous membranes Mouth: dry mucous membranes Eyes PERRL and EOMs intact bilaterally Neck full ROM and supple Resp normal respiratory effort and clear to auscultation bilaterally Cardio regular rate, regular rhythm and no murmurs Rate: tachycardic GI non-distended GI Narrative: Diffusely tender worse in the epigastrium. No guarding or rebound. Auscultation: normoactive bowel sounds Palpation: soft Back/Spine no CVA tenderness General Back: other FROM Extremity normal to inspection General Extremety ED: Negative for edema, pulses abnormal or tenderness General Extremity: Negative for edema or pulses abnormal Neuro oriented x3, CN's II-XII intact bilaterally and no sensory deficits noted Sensorium / Orientation: awake and alert Motor Exam: strength 5/5 throughout Psych Mood & Affect: anxious Skin no rashes or lesions noted and no wounds MDM MDM MDM Narrative Medical decision making narrative: Reviewed the patient's visit from yesterday. He had a CT scan that showed some gastric wall thickening consistent with gastritis no evidence of a perforation or free air or any other acute process. Given how much pain he is in right now and all tender areas, I think reasonable to rule out perforation especially since he has hematemesis now, so I obtained a 1 view stat portable chest x-ray on my interpretation there is no free air or evidence of any other acute process. Radiology was in agreement. We ruled out DKA, and other than prerenal azotemia as labs are unremarkable. His glucose is 244. Repeated his lipase that is normal I do not think we need to repeat his liver enzymes. In the meantime he was given a liter of fluid, Reglan, IV pantoprazole, morphine, and Ativan. He is doing much better on reevaluation still having some pain but nausea is better. We have him a p.o. fluid challenge. After several ounces of apple juice he is keeping it down but still feeling really nauseated and afraid that if he goes home he is going at the same issue with recurrent vomiting. His hematemesis could be a result of the gastritis seen on CT or more likely [place] tears. He is not having continuing bleeding and is not anticoa gulated. After IV fluids his heart rate is improved And his blood pressure has remained stable. Dr. Argueta his GI doctor is not available for consultation this weekend, but they still would be amenable to staying in the hospital. Discussed with hospitalist for inpatient observation. History & Record Review Discussion w/independent historian: Patient and Significant other Additional record(s) reviewed:: Prior ED visit Lab Data Attestation: I reviewed the patient's lab results. Labs: Laboratory Results - last 24 hr 07/29/24 23:15 WBC 11.2 H RBC 4.50 L Hgb 12.9 L Hct 38.9 L MCV 86.4 MCH 28.7 MCHC 33.2 RDW Std Deviation 40.7 RDW Coeff of [place] 12.9 Plt Count 387 MPV 9.2 Immature Gran % (Auto) 0.400 Neut % (Auto) 75.6 H Lymph % (Auto) 17.7 L [place] % (Auto) 5.9 Eos % (Auto) 0.1 Baso % (Auto) 0.3 Absolute Neuts (auto) 8.4 H Absolute Lymphs (auto) 1.98 Nucleated RBC % 0 Sodium 132 L Potassium 4.7 Chloride 99 Carbon Dioxide 23.0 Anion Gap 10 BUN 25 H Creatinine 1.26 Estim Creat Clear Calc 71.73 Est GFR (MDRD) Af Amer 82 Est GFR (MDRD) Non-Af 68 BUN/Creatinine Ratio 19.8 Glucose 244 H Calcium 9.6 Lipase 35 Acetone Level NEGATIVE ABG Data ABG results: ABG 07/29/24 23:23 Specimen Type JODIE Sample Site Not entered O2 % 21.0 VBG pH 7.38 VBG pO2 35 VBG HCO3 22 VBG Total CO2 23 VBG O2 Sat (Calc) 66 VBG Base Excess -3 L POC Mix VBG pCO2 Pt Tmp 37.2 L O2 Delivery Device Room Air Radiography Diagnostic Testing: Clinical Impression(s) from Imaging Studies Chest X-Ray 07/29/24 22:20 IMPRESSION: Normal x-ray examination of the chest. Electronically Signed: Yang Roland MD at 23:46 EDT , Rhythm Strip Rhythm Strip: Sinus Tach Rate: 115 Ectopy: None Management Discussion w/another healthcare provider: Hospitalist Discharge Plan Triage Chief Complaint: Nausea/Vomiting ED Provider: Luis Alberto Walker Dx/Rx/DC Orders Clinical Impression: Intractable vomiting with nausea, Gastroparesis, Hematemesis, Acute dehydration, Diffuse abdominal pain Prescriptions: No Action gabapentin 100 mg capsule 200 mg PO TID (DME) Omnipod 5 G6 Intro Kit (Gen 5) Cartridge See Rx Instructions .Route Qty: 1 0RF Rx Instructions: As directed (DME) Omnipod 5 G6 Pods (Gen 5) Cartridge See Rx Instructions .Route Qty: 10 5RF Rx Instructions: 1 pod q 3 days Please make sure that pods are G7 compatible insulin lispro [Humalog KwikPen Insulin] 100 unit/mL insulin pen 6 unit subcut TID Patient Comments: PT STATES HE TAKES BEFORE MEALS metoclopramide HCl [Reglan] 5 mg tablet 5 mg PO Q8H PRN PRN (Reason: nausea and vomiting) 7 Days Qty: 21 0RF insulin glargine-yfgn 100 unit/mL (3 mL) Insulin Pen 12 unit subcut QHS (DME) pen needle, diabetic [BD Ultra-Fine Lizzeth Pen Needle] 32 gauge x 5/32 needle See Rx Instructions .Route Qty: 100 5RF Rx Instructions: 4x/day lisinopril 20 mg tablet 20 mg PO DAILY Qty: 30 6RF pantoprazole 40 mg tablet,delayed release (DR/EC) 40 mg PO BID Qty: 60 2RF (DME) Dexcom G7 Sack Sewer Machine Misc See Rx Instructions .Route Qty: 1 0RF Rx Instructions: As directed (DME) Dexcom G6 Sensor Device See Rx Instructions .Route Qty: 3 5RF Rx Instructions: 1 sensor q 10 days (DME) Dexcom G6 Transmitter Device See Rx Instructions .Route Qty: 1 1RF Rx Instructions: 1 transmitter q 90 days scopolamine base 1 mg over 3 days patch 3 day 1 patch transdermal Q3D Qty: 4 0RF prochlorperazine maleate 10 mg tablet 10 mg PO TID PRN (Reason: nausea and vomiting) Qty: 30 3RF dicyclomine 10 mg capsule 10 mg PO TID Qty: 90 1RF Primary Care Provider: Heena Barbosa Referrals: Heena Barbosa, LOG [facility]UL [facility] [Primary Care Provider] - Print Language: Hungarian Disposition Disposition: Acute Care Hospital [facility]
[2024-07-29] MEDS: Morphine 4 MG/ML Syringe IV (23:20)
[2024-07-29] MEDS: 0.9% Normal Saline (1000mL) 1,000 ML 999 ML IV (23:20)
[2024-07-29] MEDS: Metoclopramide 10 MG/2 ML Vial 5 MG IV (23:21)
[2024-07-29] MEDS: LORazepam 2 MG/ML Syringe 0.5 MG IV (23:21)
[2024-07-29 23:24] LABS: Absolute Lymphocyte Count 1.98 X10^3/uL (0.83-4.51); Absolute Neutrophil Count 8.4 X10^3/uL (2.0-7.7); Basophil# 0.03 X10^3/uL; Basophil% 0.3 % (0-1); Eosinophil# 0.01 X10^3/uL; Eosinophils% 0.1 % (0-5); Hematocrit 38.9 % (40-54); Hemoglobin 12.9 g/dL (13.0-16.5); Lymphocyte # 1.98 X10^3/ul (0.83-4.51); Lymphocyte % 17.7 % (19-41); Mean Corp Hgb Conc 33.2 g/dL (32-36); Mean Corpuscular Hgb 28.7 pg (27.0-32.0); Mean Corpuscular Volume 86.4 fL (80-94); Mean Platelet Vol. 9.2 fl (6.2-12.0); Monocyte# 0.66 X10^3/uL; Monocyte% 5.9 % (0-10); NRBC Flagged by Analyzer 0 % (0-5); Neutrophil # 8.44 X10^3/uL (2.7-7.7); Neutrophil % 75.6 % (47-70); Platelet Count 387 K/mm3 (150-450); RBC Distribution Width CV 12.9 % (11.6-14.6); RBC Distribution Width SD 40.7 fl (35.1-43.9); White Blood Count 11.2 K/mm3 (4.4-11.0)
[2024-07-29 23:26] LABS: Blood Gas Specimen Type VEN; O2 Delivery Device Room Air; SITE Not entered; VBG BASE EXCESS -3 mmol/L (-1.0-3.5); VBG Bicarbonate 22 mmol/L (22-26); VBG PO2 35 mmHg (25-40); VBG SO2 66 % (50-70); VBG TCO2 23 mmol/L (23-33); VBG pCO2 37.2 mmHg (41-51); VBG pH 7.38 (7.32-7.42)
[2024-07-29 23:27] VITALS: BP 155/87; PULSE 94; RESP 18; O2SAT 99
[2024-07-29 23:41] LABS: Anion Gap 10 (5-15); BUN 25 mg/dL (7-18); BUN/Creat Ratio 19.8 RATIO (10-20); Calcium,Total 9.6 mg/dL (8.5-10.1); Chloride 99 mmol/L (98-107); Creatinine, Serum 1.26 mg/dL (0.70-1.30); EST Glomerular Filtration Rate 68 mL/min (>60); Est Glom Filt Rate - Afr Amer 82 mL/min (>60); Estimated Creatinine Clearance 71.73 ml/min; Glucose 244 mg/dL (74-106); Lipase 35 U/L (13-75); Potassium 4.7 mmol/L (3.5-5.1); Sodium Level 132 mmol/L (136-145)
[2024-07-30 00:44] VITALS: BP 154/83; PULSE 91; RESP 18; TEMP 37; O2SAT 100
--- NOTE | 2024-07-30 00:49 | PCM.HP.STD ---
HPI - General General Date of Admission: 07/30/24 Date of Service: 07/30/24 Chief Complaint: Intractable N/V, abdominal discomfort, recent gastritis dx, blood streaks in emesis. HPI Narrative The patient is a 38 y/o M w/ PMHx: Chronic cannabis use, Anxiety and Depression/Schizo-affective schizophrenia, Chronic migraines, IDDM with chronic neuropathy and chronic gastroparesis, Former Tobacco use, GERD, HTN, recent ED evaluation 07/28/24 secondary to abdominal pain with history of gastroparesis with noted 2 days of diffuse discomfort with nausea and emesis with last bowel movement at that time of ED evaluation in the morning not noted to be bloody or dark and emesis noted to be bilious in appearance with CT abdomen and pelvis with evidence of gastritis with no acute concerning findings and CBC with mild leukocytosis with no marked electrolyte disturbances discharged to home with recommended continued Reglan to usage with follow-up with gastroenterology outpatient who now represents to the [facility] ED on 07/28/24 secondary to recurrent epigastric as well as periumbilical abdominal discomfort with intractable nausea and emesis ongoing for the last 12 hours initially feeling good when he left the ED the day prior but had recurrent similar symptoms now noting that his emesis has streaks of blood with inability to keep any of his medications down prompting ED reevaluation. Patient rates his discomfort 7 out of 10 in severity and reports it is more cramping and aching with occasional sharp stabbing especially worsened by palpation. Workup in the ED included T98.4, heart rate 117, BP 132/81, respiratory rate 18, 98% on room air with most recent repeat vitals heart rate 94, BP 155/87, respiratory rate 18, 9% on room air, CBC with WC 11.2, human 12.9, MCV 86.4, platelet 387 with left shift, VBG with POC mixed VBG pCO2 37.2 otherwise not marked appearing, BMP with sodium 132, BUN/creatinine 25/1.26, GFR 68, glucose 244, lipase 35, acetone negative, chest x-ray with no acute cardiopulmonary findings. In the ED patient administered 1 L normal saline, Protonix 40 mg IV x 1, morphine 4 mg IV x 1, Reglan 5 mg IV x 1 as well as Ativan 0.5 mg IV x 1. [facility] Medical History (Updated 09/22/24 @ 01:[address] Brenda Hollins MD) Former tobacco use Cannabis use disorder Hypertension Schizophrenia Anxiety Depression Migraines Type 2 diabetes mellitus with hyperglycemia Schizo-affective schizophrenia Bipolar 1 disorder Diabetes mellitus Home Medications ?Medication ?Instructions ?Recorded ?Last Taken ?Type pen needle, diabetic 32 gauge x #100 ea 03/29/24 Unknown Rx 5/32 (BD Ultra-Fine Lizzeth Pen Needle) insulin lispro 100 unit/mL 6 unit subcut TID 03/30/24 Unknown History subcutaneous pen (Humalog KwikPen (U-100) Insulin) lisinopril 20 mg tablet 20 mg PO DAILY #30 tabs 05/01/24 Unknown Rx pantoprazole 40 mg tablet,delayed 40 mg PO BID #60 tabs 05/01/24 Unknown Rx release blood-glucose meter,continuous #1 ea 05/04/24 Unknown Rx (Dexcom G7 Insurance Follow Up Specialist) gabapentin 100 mg capsule 200 mg PO TID 06/06/24 Unknown History insulin pump cart,automated,BT #10 ea 07/05/24 Unknown Rx (Omnipod 5 G6 Pods (Gen 5) subcutaneous cartridge) insulin pump cartridge,automated #1 ea 07/05/24 Unknown Rx dose,BT with controller subcutaneous (Omnipod 5 G6 Intro Kit (Gen 5) subcutaneous cartridge with controller) blood-glucose sensor (Dexcom G6 #3 ea 07/27/24 Unknown Rx Sensor device) blood-glucose transmitter (Dexcom #1 ea 07/27/24 Unknown Rx G6 Transmitter device) dicyclomine 10 mg capsule 10 mg PO TID #90 caps 07/28/24 Unknown Rx prochlorperazine maleate 10 mg 10 mg PO TID PRN nausea and 07/28/24 Unknown Rx tablet vomiting #30 tabs scopolamine base 1 mg over 3 days 1 patch transdermal Q3D #4 ea 07/28/24 Unknown Rx transdermal patch insulin glargine-yfgn 100 unit/mL 12 unit subcut QHS 07/29/24 Unknown History (3 mL) subcutaneous pen metoclopramide HCl 5 mg tablet 5 mg PO Q8H PRN PRN nausea and 07/29/24 Unknown Rx (Reglan) vomiting 7 days #21 tabs Allergy/AdvReac Type Severity Reaction Status Date / Time No Known Allergies Allergy Verified 07/29/24 22:07 Family History Mother Diabetes Sister Diabetes Father CVA (cerebral vascular accident) Myocardial infarction Surgical History (Updated 07/30/24 @ 01:[address] Brenda Hollins MD) No history of previous surgery Social History (Updated 07/30/24 @ 01:[address] Brenda Hollins MD) household members: spouse Smoking Status: Former smoker pack-years: 10 how long ago did patient quit smoking: Quit 05/2024, prior smoked ~ 1/2 ppd. second hand exposure: No alcohol intake: former substance use type: marijuana ROS ROS Narrative Admission Review of Systems: CONSTITUTIONAL: No weight loss, fever, chills, weakness or fatigue. HEENT: Eyes: No visual loss, blurred vision, double vision or yellow sclerae. Ears, Nose, Throat: No hearing loss, sneezing, congestion, runny nose or sore throat. SKIN: No rash or itching, lesions, wounds. CARDIOVASCULAR: No chest pain, chest pressure or chest discomfort, palpitations, edema, orthopnea, syncopal events. RESPIRATORY: No shortness of breath, cough or sputum, wheezing, hemoptysis. GASTROINTESTINAL: + Anorexia, nausea, emesis, abdominal pain, hematemesis. No diarrhea, melena, BRBPR. GENITOURINARY: No dysuria, frequency, urgency or retention. NEUROLOGICAL: No headache, dizziness, syncope, paralysis, ataxia, numbness or tingling in the extremities, focal weakness, change in bowel or bladder control, seizure. MUSCULOSKELETAL: No muscle, back pain, joint pain or stiffness. HEMATOLOGIC: No anemia, bleeding or bruising. LYMPHATICS: No enlarged nodes. No history of splenectomy. PSYCHIATRIC: + History of anxiety and depression/schizoaffective schizophrenia. ENDOCRINOLOGIC: No reports of sweating, cold or heat intolerance. No polyuria or polydipsia. ALLERGIES: No history of asthma, hives, eczema or rhinitis. Vital Signs Vital Signs Vital Signs: 07/29/24 22:07 07/29/24 23:27 07/30/24 00:44 Temperature 98.4 F 98.6 F Temperature Source Temporal Pulse Rate 117 H 94 91 Respiratory Rate 18 18 18 Blood Pressure 132/81 H 155/87 H 154/83 H Blood Pressure Mean 98 109 106 Pulse Ox 98 99 100 Oxygen Delivery Method Room Air Room Air Weight Weight: 147 lb 12.8 oz Body Mass Index (BMI) 23.8 Physical Exam Narrative Physical Examination: General: Awake, alert, oriented x 3 and cooperative, seated upright in the ED bed, fatigued and uncomfortable appearing. Skin: Normal color, normal turgor, no icterus, no cyanosis. HEENT: AT/NC, EOMI, PERRLA, dry MM, no carotid bruits or JVD noted. Lungs: CTA bilaterally, moderate effort, mild decrease BL bases, no rales, ronchi or wheezing. Heart: Mildly tachycardic with regular rhythm; no gallop, rub audible. Abdomen: Soft, generalized discomfort including epigastric and primarily periumbilical but some to the outer quadrants with voluntary guarding, no rebound, hyperactive BS, no appreciated HSM but difficult given pain with deep palpation. Extremities: No cyanosis, clubbing, or edema. Neurological: Patient awake, alert, oriented as noted, cognitive function intact; pupils equally reactive to light and accommodation, cranial nerves gross normal, moving all 4 extremities, no focal deficits, strength moderately globally decreased secondary to acute presentation complaints. Psychiatric: Affect appears fatigued, uncomfortable no acute evidence of depressive or anxiety feelings but does have underlying psychiatric history. Results Lab / Micro Data 07/29/24 23:15 07/29/24 23:15 Labs: Laboratory Results - last 24 hr 07/29/24 23:15: WBC 11.2 H, RBC 4.50 L, Hgb 12.9 L, Hct 38.9 L, MCV 86.4, MCH 28.7, MCHC 33.2, RDW Std Deviation 40.7, RDW Coeff of [place] 12.9, Plt Count 387, MPV 9.2, Immature Gran % (Auto) 0.400, Neut % (Auto) 75.6 H, Lymph % (Auto) 17.7 L, [place] % (Auto) 5.9, Eos % (Auto) 0.1, Baso % (Auto) 0.3, Absolute Neuts (auto) 8.4 H, Absolute Lymphs (auto) 1.98, Nucleated RBC % 0, Sodium 132 L, Potassium 4.7, Chloride 99, Carbon Dioxide 23.0, Anion Gap 10, BUN 25 H, Creatinine 1.26, Estim Creat Clear Calc 71.73, Est GFR (MDRD) Af Amer 82, Est GFR (MDRD) Non-Af 68, BUN/Creatinine Ratio 19.8, Glucose 244 H, Calcium 9.6, Lipase 35, Acetone Level NEGATIVE ABG Data ABG results: ABG 07/29/24 23:23 Specimen Type JODIE Sample Site Not entered O2 % 21.0 VBG pH 7.38 VBG pO2 35 VBG HCO3 22 VBG Total CO2 23 VBG O2 Sat (Calc) 66 VBG Base Excess -3 L POC Mix VBG pCO2 Pt Tmp 37.2 L O2 Delivery Device Room Air Rhythm Strip Rhythm Strip: Sinus Tach Rate: 115 Ectopy: None Imaging Radiology Impression Chest X-Ray 07/29/24 22:20 IMPRESSION: Normal x-ray examination of the chest. Electronically Signed: Yang Roland MD at 23:46 EDT , Assessment & Plan Assessment/Plan (1) Intractable vomiting with nausea: (2) Hematemesis: PLAN: Plan The patient is a 38 y/o M w/ PMHx: Chronic cannabis use, Anxiety and Depression/Schizo-affective schizophrenia, Chronic migraines, IDDM with chronic neuropathy and chronic gastroparesis, Tobacco use, GERD, HTN, recent ED evaluation 07/28/24 secondary to abdominal pain with history of gastroparesis with noted 2 days of diffuse discomfort with nausea and emesis with last bowel movement at that time of ED evaluation in the morning not noted to be bloody or dark and emesis noted to be bilious in appearance with CT abdomen and pelvis with evidence of gastritis with no acute concerning findings and CBC with mild leukocytosis with no marked electrolyte disturbances discharged to home with recommended continued Reglan to usage with follow-up with gastroenterology outpatient who now represents to the [facility] ED on 07/28/24 secondary to recurrent periumbilical/diffuse abdominal discomfort with intractable nausea and emesis ongoing for the last 12 hours initially feeling good when he left the ED the day prior but had recurrent similar symptoms now noting that his emesis has streaks of blood with inability to keep any of his medications down. #1. Intractable nausea and emesis with known gastritis with hematemesis suspected result of this or potentially a Alba-[place] tear secondary to severity of ongoing persistent emesis bouts: Will admit to medical surgical floor, will maintain on IV fluids, given intractable nausea and emesis will allow clears only, will transition to IV Protonix and hold oral regimen, will trend CBC and CMP as well as lipase, will maintain on IV scheduled Reglan to assist with intractable symptoms, if ongoing persistent nausea and emesis not effectively treated with Zofran or Reglan low threshold to trial IV Haldol if necessary and intractable. Gastroenterology not available 07/31/24 but if ongoing issues may require consultation on Wednesday. #2. IDDM with chronic neuropathy, gastroparesis: Given current presentation with intractable nausea and emesis we will hold any short acting insulin, continue long-acting however low threshold to decrease by half dose if necessary pending trending, will maintain on every 6 hours Accu-Cheks with insulin sliding scale's and as noted will allow clears only at this time, also as noted above will maintain on IV Reglan. #3. Hypertension: Will temporally hold patient home lisinopril and will maintain on IV as needed hydralazine in the interim. #4. Anxiety and Depression/Schizo-affective schizophrenia: Holding all oral regimen given intolerance for oral intake at this time but per current list not on any regimen, encourage continued outpatient follow-up and counseling as well as medications of appropriate. #5. Chronic cannabis use: Urine drug screen requested to be cautious and given that cannabis frequently used can cause cyclic emesis syndrome. Patient does have gastritis but certainly cannabis could be contributing. Encourage cessation. #6. Former Tobacco Abuse: Quit ~ 2 months prior, encouraged continued cessation. #7. GERD: Will maintain as noted above on IV Protonix. #8. DVT prophylaxis: SCDs, defer any chemoprophylaxis given hematemesis as noted above. Charges/Coding Visit Charges Inpatient E&M: 22893 Init Hosp L3
[2024-07-30 01:26] LABS: Magnesium 1.7 mg/dL (1.6-2.6); Phosphorus 2.4 mg/dL (2.5-4.9)
[2024-07-30 02:02] VITALS: BMI 23.1
[2024-07-30 02:07] VITALS: BP 149/87; PULSE 94; RESP 17; TEMP 36.8; O2SAT 100
[2024-07-30] MEDS: 0.9% Normal Saline (1000mL) 1,000 ML 100 ML IV ×2 (02:13→12:34)
[2024-07-30] MEDS: Insulin Lispro 100 UNIT/ML INSULN.PEN SC ×4 (02:16→16:32)
[2024-07-30] MEDS: 0.9% Normal Saline (250mL Bag) 250 ML 15 ML IV (02:32)
[2024-07-30] MEDS: Pantoprazole Sodium 80 MG in 0.9% Normal Saline (100mL Bag) 80 ML 10 MG CONT INF ×2 (02:32→14:01)
[2024-07-30] MEDS: 0.9% Saline Lock 10 ML Syringe IV ×3 (02:32→22:33)
[2024-07-30] MEDS: Scopolamine 1mg/72hr Patch 1 PATCH TD (02:53)
[2024-07-30] MEDS: Dicyclomine 10 MG Capsule PO ×3 (06:15→22:31)
[2024-07-30] MEDS: Gabapentin 100 MG Capsule 200 MG PO ×3 (06:15→22:29)
[2024-07-30] MEDS: Metoclopramide 10 MG/2 ML Vial 5 MG IV ×3 (06:16→22:32)
[2024-07-30 06:47] LABS: Bedside Glucose 197 mg/dL (74-106)
--- NOTE | 2024-07-30 06:56 | NURSING ---
Pt [place] 171 and accucheck from 197
[2024-07-30 07:19] VITALS: O2SAT 97
[2024-07-30 07:51] LABS: Absolute Lymphocyte Count 3.12 X10^3/uL (0.83-4.51); Absolute Neutrophil Count 5.6 X10^3/uL (2.0-7.7); Basophil# 0.04 X10^3/uL; Basophil% 0.4 % (0-1); Eosinophil# 0.07 X10^3/uL; Eosinophils% 0.7 % (0-5); Hematocrit 34.8 % (40-54); Hemoglobin 11.4 g/dL (13.0-16.5); Lymphocyte # 3.12 X10^3/ul (0.83-4.51); Lymphocyte % 31.8 % (19-41); Mean Corp Hgb Conc 32.8 g/dL (32-36); Mean Corpuscular Hgb 28.6 pg (27.0-32.0); Mean Corpuscular Volume 87.4 fL (80-94); Mean Platelet Vol. 9.8 fl (6.2-12.0); Monocyte# 0.98 X10^3/uL; NRBC Flagged by Analyzer 0 % (0-5); Neutrophil # 5.58 X10^3/uL (2.7-7.7); Neutrophil % 56.9 % (47-70); Platelet Count 349 K/mm3 (150-450); RBC Distribution Width CV 12.9 % (11.6-14.6); RBC Distribution Width SD 41.4 fl (35.1-43.9); Red Blood Count 3.98 M/mm3 (4.6-6.2); White Blood Count 9.8 K/mm3 (4.4-11.0)
[2024-07-30 08:11] VITALS: BP 112/73; PULSE 85; RESP 15; TEMP 36.5; O2SAT 98
[2024-07-30 08:12] LABS: ALB/GLOB Ratio 0.9 RATIO (0.9-2.4); AST(SGOT) 27 U/L (15-37); Alanine Aminotransfer ALT/SGPT 18 U/L (16-61); Albumin, Serum 3.3 g/dL (3.2-5.0); Alkaline Phosphatase 82 U/L (45-117); Anion Gap 7 (5-15); BUN 16 mg/dL (7-18); BUN/Creat Ratio 17.4 RATIO (10-20); Calcium,Total 8.5 mg/dL (8.5-10.1); Chloride 107 mmol/L (98-107); Creatinine, Serum 0.92 mg/dL (0.70-1.30); EST Glomerular Filtration Rate 98 mL/min (>60); Est Glom Filt Rate - Afr Amer 118 mL/min (>60); Estimated Creatinine Clearance 98.24 ml/min; Globulin 3.7 g/dL (2.2-4.2); Glucose 182 mg/dL (74-106); Lipase 31 U/L (13-75); Sodium Level 136 mmol/L (136-145)
[2024-07-30] MEDS: Acetaminophen 325 MG Tablet 650 MG PO ×2 (10:13→22:32)
[2024-07-30] MEDS: oxyCODONE 5 MG Tablet PO (10:14)
--- NOTE | 2024-07-30 10:45 | CON.PCM.GI_ITS ---
HPI Consult Data Date of Consult: 07/30/24 HPI Narrative Reason for Consultation: Abdominal pain with nausea vomiting HPI Narrative: DILSHAD PULIDO, is a 38 M who presented to [facility] ED on 07/29/2024 with intractable nausea and vomiting. Patient is very pleasant and provides a good history. Patient states that his nausea and vomiting started somewhat abruptly about 4 days ago. He then began to have pain in the right upper quadrant or right lower quadrant of his abdomen. Previous for similar presentation back in December CT abdomen pelvis was done at that time and was essentially normal. Labs are notable for a mild leukocytosis, hyperglycemia with blood glucose 278, UA that showed 1000 glucose, 150 urine ketones but acid- base status was normal and findings were otherwise fairly benign. He had borderline sinus tachycardia and was quite hypertensive at that time as well. He had some improvement in his symptoms with IV fluids, Zofran and morphine. Over the last few days, patient has continued to have some episodes of nausea/vomiting and abdominal pain. He essentially has not eaten anything over the past 3 to 4 days. States he has very minimal appetite. Because his symptoms did not improve, he came to the ED today for further evaluation. Vitals were again notable for fairly significant hypertension and mild tachycardia. Labs again showed hyperglycemia with blood glucose 322 and similar UA findings, but bicarb was 17 and he had a mild anion gap. He was given 2 L of IV fluids in the ED as well as Zofran and morphine with some improvement in symptoms. He currently denies any abdominal pain or discomfort. Denies any fevers or chills. Denies any significant change in bowel movements. Denies any lightheadedness or dizziness. No other acute concerns at this time. Due to his intractable nausea/vomiting and abdominal pain and mild DKA, hospitalist is contacted for admission. From the office I see and diagnosed him with severe vomiting syndrome versus marijuana hyperemesis. He said he has not been smoking cigarettes or marijuana for the last couple months and he was actually doing a lot better. What prompted him to come into the ED this time due to his hematemesis seen by his daughter. Currently still has abdominal pain. Some cramping. Still some nausea. [facility] Medical History Former tobacco use Cannabis use disorder Hypertension Schizophrenia Anxiety Depression Migraines Type 2 diabetes mellitus with hyperglycemia Schizo-affective schizophrenia Bipolar 1 disorder Diabetes mellitus Home Medications ?Medication ?Instructions ?Recorded ?Last Taken ?Type pen needle, diabetic 32 gauge x #100 ea 03/29/24 Unknown Rx (BD Ultra-Fine Lizzeth Pen Needle) insulin lispro 100 unit/mL 6 unit subcut TID dm 03/30/24 Unknown History subcutaneous pen (Humalog KwikPen (U-100) Insulin) lisinopril 20 mg tablet 20 mg PO DAILY bp #30 tabs 05/01/24 Unknown Rx pantoprazole 40 mg tablet,delayed 40 mg PO BID gerd #60 tabs 05/01/24 Unknown Rx release blood-glucose meter,continuous #1 ea 05/04/24 Unknown Rx (Dexcom G7 Client Hr Manager) gabapentin 100 mg capsule 200 mg PO TID pain 06/06/24 Unknown History insulin pump cart,automated,BT #10 ea 07/05/24 Unknown Rx (Omnipod 5 G6 Pods (Gen 5) subcutaneous cartridge) insulin pump cartridge,automated #1 ea 07/05/24 Unknown Rx dose,BT with controller subcutaneous (Omnipod 5 G6 Intro Kit (Gen 5) subcutaneous cartridge with controller) blood-glucose sensor (Dexcom G6 #3 ea 07/27/24 Unknown Rx Sensor device) blood-glucose transmitter (Dexcom #1 ea 07/27/24 Unknown Rx G6 Transmitter device) dicyclomine 10 mg capsule 10 mg PO TID abd pain #90 caps 07/28/24 Unknown Rx prochlorperazine maleate 10 mg 10 mg PO TID PRN nausea and 07/28/24 Unknown Rx tablet vomiting #30 tabs scopolamine base 1 mg over 3 days 1 patch transdermal Q3D nausea #4 07/28/24 Unknown Rx transdermal patch ea insulin glargine-yfgn 100 unit/mL 12 unit subcut QHS dm 07/29/24 Unknown History (3 mL) subcutaneous pen metoclopramide HCl 5 mg tablet 5 mg PO Q8H PRN PRN nausea and 07/29/24 Unknown Rx (Reglan) vomiting 7 days #21 tabs Allergy/AdvReac Type Severity Reaction Status Date / Time No Known Allergies Allergy Verified 07/29/24 22:07 Family History Mother Diabetes Sister Diabetes Father CVA (cerebral vascular accident) Myocardial infarction Surgical History No history of previous surgery Social History (Updated 07/30/24 @ 01:[address] Brenda Hollins MD) household members: spouse Smoking Status: Former smoker pack-years: 10 how long ago did patient quit smoking: Quit 05/2024, prior smoked ~ 1/2 ppd. second hand exposure: No alcohol intake: former substance use type: marijuana ROS ROS Narrative Admission Review of Systems: CONSTITUTIONAL: No weight loss, fever, chills, weakness or fatigue. HEENT: Eyes: No visual loss, blurred vision, double vision or yellow sclerae. Ears, Nose, Throat: No hearing loss, sneezing, congestion, runny nose or sore throat. SKIN: No rash or itching, lesions, wounds. CARDIOVASCULAR: No chest pain, chest pressure or chest discomfort, palpitations, edema, orthopnea, syncopal events. RESPIRATORY: No shortness of breath, cough or sputum, wheezing, hemoptysis. GASTROINTESTINAL: + Anorexia, nausea, emesis, abdominal pain, hematemesis. No diarrhea, melena, BRBPR. GENITOURINARY: No dysuria, frequency, urgency or retention. NEUROLOGICAL: No headache, dizziness, syncope, paralysis, ataxia, numbness or tingling in the extremities, focal weakness, change in bowel or bladder control, seizure. MUSCULOSKELETAL: No muscle, back pain, joint pain or stiffness. HEMATOLOGIC: No anemia, bleeding or bruising. LYMPHATICS: No enlarged nodes. No history of splenectomy. PSYCHIATRIC: + History of anxiety and depression/schizoaffective schizophrenia. ENDOCRINOLOGIC: No reports of sweating, cold or heat intolerance. No polyuria or polydipsia. ALLERGIES: No history of asthma, hives, eczema or rhinitis. Physical Exam Narrative Physical Examination: General: Awake, alert, oriented x 3 and cooperative, seated upright in the ED bed, fatigued and uncomfortable appearing. Skin: Normal color, normal turgor, no icterus, no cyanosis. HEENT: AT/NC, EOMI, PERRLA, dry MM, no carotid bruits or JVD noted. Lungs: CTA bilaterally, moderate effort, mild decrease BL bases, no rales, ronchi or wheezing. Heart: Mildly tachycardic with regular rhythm; no gallop, rub audible. Abdomen: Soft, generalized discomfort including epigastric and primarily periumbilical but some to the outer quadrants with voluntary guarding, no rebound, hyperactive BS, no appreciated HSM but difficult given pain with deep palpation. Extremities: No cyanosis, clubbing, or edema. Neurological: Patient awake, alert, oriented as noted, cognitive function intact; pupils equally reactive to light and accommodation, cranial nerves gross normal, moving all 4 extremities, no focal deficits, strength moderately globally decreased secondary to acute presentation complaints. Psychiatric: Affect appears fatigued, uncomfortable no acute evidence of depressive or anxiety feelings but does have underlying psychiatric history. Lab / Micro Data 07/30/24 06:00 07/30/24 06:00 Labs: Laboratory Results - last 24 hr 07/29/24 23:15: WBC 11.2 H, RBC 4.50 L, Hgb 12.9 L, Hct 38.9 L, MCV 86.4, MCH 28.7, MCHC 33.2, RDW Std Deviation 40.7, RDW Coeff of [place] 12.9, Plt Count 387, MPV 9.2, Immature Gran % (Auto) 0.400, Neut % (Auto) 75.6 H, Lymph % (Auto) 17.7 L, [place] % (Auto) 5.9, Eos % (Auto) 0.1, Baso % (Auto) 0.3, Absolute Neuts (auto) 8.4 H, Absolute Lymphs (auto) 1.98, Nucleated RBC % 0, Sodium 132 L, Potassium 4.7, Chloride 99, Carbon Dioxide 23.0, Anion Gap 10, BUN 25 H, Creatinine 1.26, Estim Creat Clear Calc 71.73, Est GFR (MDRD) Af Amer 82, Est GFR (MDRD) Non-Af 68, BUN/Creatinine Ratio 19.8, Glucose 244 H, Calcium 9.6, Phosphorus 2.4 L, Magnesium 1.7, Lipase 35, Acetone Level NEGATIVE 07/30/24 06:00: WBC 9.8, RBC 3.98 L, Hgb 11.4 L, Hct 34.8 L, MCV 87.4, MCH 28.6, MCHC 32.8, RDW Std Deviation 41.4, RDW Coeff of [place] 12.9, Plt Count 349, MPV 9.8, Immature Gran % (Auto) 0.200, Neut % (Auto) 56.9, Lymph % (Auto) 31.8, [place] % (Auto) 10.0, Eos % (Auto) 0.7, Baso % (Auto) 0.4, Absolute Neuts (auto) 5.6, Absolute Lymphs (auto) 3.12, Nucleated RBC % 0, Sodium 136, Potassium 4.0, Chloride 107, Carbon Dioxide 22.0, Anion Gap 7, BUN 16, Creatinine 0.92, Estim Creat Clear Calc 98.24, Est GFR (MDRD) Af Amer 118, Est GFR (MDRD) Non-Af 98, BUN/Creatinine Ratio 17.4, Glucose 182 H, Calcium 8.5, Total Bilirubin 0.60, AST 27, ALT 18, Alkaline Phosphatase 82, Total Protein 7.0, Albumin 3.3, Globulin 3.7, Albumin/Globulin Ratio 0.9, Lipase 31 07/30/24 06:26: POC Glucose 197 H ABG Data ABG results: ABG 07/29/24 23:23 Specimen Type JODIE Sample Site Not entered O2 % 21.0 VBG pH 7.38 VBG pO2 35 VBG HCO3 22 VBG Total CO2 23 VBG O2 Sat (Calc) 66 VBG Base Excess -3 L POC Mix VBG pCO2 Pt Tmp 37.2 L O2 Delivery Device Room Air Rhythm Strip Rhythm Strip: Sinus Tach Rate: 115 Ectopy: None Imaging Radiology Impression Chest X-Ray 07/29/24 22:20 IMPRESSION: Normal x-ray examination of the chest. Electronically Signed: Yang Roland MD at 23:46 EDT , Assessment & Plan Assessment/Plan (1) Diffuse abdominal pain: (2) Hematemesis: (3) Intractable vomiting with nausea: (4) Gastroparesis: PLAN: Plan Patient is a 38-year-old male who presented to [facility] ED on 07/29/2024 with intractable nausea and vomiting and abdominal pain. And previously diagnosed with gastroparesis. On he also likely has cyclic vomiting syndrome in the setting of bipolar disorder which complicates the situation has been using marijuana as a ability to control his mood. He currently has pain with nausea vomiting likely secondary to intestinal resulting in worsening of diabetic gastroparesis and hematemesis. Recommending continue IV fluids. Continue scopolamine, goal of PPI if as previously ordered and he will need an upper endoscopy to evaluate his upper GI tract. Diagnosis does include last year, peptic ulcer disease or GERD and H. pylori gastritis or peptic ulcer disease. Charges/Coding Visit Charges Inpatient E&M: 88106 Init Hosp L3
--- NOTE | 2024-07-30 11:10 | PN.HOSP_ITS ---
Hospitalist Note Patient admitted earlier this morning for intractable nausea and vomiting with abdominal discomfort and blood streaks in emesis. Has known history of gastroparesis in setting of his diabetes. Follows with Dr. Argueta and last EGD on 04/04/2024 showed esophageal mucosal changes suggestive of Blakely's esophagus with gastritis and H. pylori infection. Last saw Dr. Argueta in the office on 06/06. Was treated for H. pylori and repeat was negative and patient noted that he had been doing fairly well at that point. Plan was for repeat gastric em ptying study but it does not appear patient has had this done yet. I saw patient at the bedside later this morning. He appeared to be mildly uncomfortable due to ongoing pain and discomfort in his epigastric area. He denied any further vomiting episode since arriving up to the floor but had not been able to get down much in the way of clear liquids. Denied any fevers or chills. Tentatively planning for EGD with Dr. Argueta tomorrow for further evaluation. Full progress note to follow tomorrow.
[2024-07-30 12:00] LABS: Bedside Glucose 212 mg/dL (74-106)
[2024-07-30] MEDS: Ondansetron 4 MG/2 ML Vial IV (12:34)
[2024-07-30] MEDS: Morphine 2 MG/ML Syringe IV (12:35)
[2024-07-30 14:39] VITALS: BP 127/97; PULSE 94; RESP 18; TEMP 36.6; O2SAT 99
[2024-07-30 17:02] LABS: Bedside Glucose 212 mg/dL (74-106)
[2024-07-30 22:14] VITALS: BP 130/85; PULSE 91; RESP 20; TEMP 37.3; O2SAT 98
[2024-07-30] MEDS: Pantoprazole Sodium 40 MG in 0.9% Normal Saline (100mL MB+) 100 ML 330 MG IV (22:28)
[2024-07-30] MEDS: Temazepam 15 MG Capsule PO ×2 (22:29→22:41)
[2024-07-30 23:22] LABS: Bedside Glucose 142 mg/dL (74-106)
[2024-07-31] VITALS (14 sets, daily range): BP systolic 106–142; BP diastolic 56–94; PULSE 72–98; RESP 16–18; TEMP 36.3–37.2; O2SAT 95–100; BMI 22.7
[2024-07-31] MEDS: Insulin Glargine-YFGN 100 UNIT/ML Pen 12 UNIT SC ×2 (00:54→21:52)
[2024-07-31 01:16] LABS: Bedside Glucose 114 mg/dL (74-106)
[2024-07-31 06:22] LABS: Hematocrit 36.7 % (40-54); Hemoglobin 11.7 g/dL (13.0-16.5); Mean Corp Hgb Conc 31.9 g/dL (32-36); Mean Corpuscular Hgb 28.4 pg (27.0-32.0); Mean Corpuscular Volume 89.1 fL (80-94); Mean Platelet Vol. 9.2 fl (6.2-12.0); Platelet Count 356 K/mm3 (150-450); RBC Distribution Width SD 42.5 fl (35.1-43.9); Red Blood Count 4.12 M/mm3 (4.6-6.2); White Blood Count 9.9 K/mm3 (4.4-11.0)
[2024-07-31] MEDS: Metoclopramide 10 MG/2 ML Vial 5 MG IV (06:30)
[2024-07-31] MEDS: Dicyclomine 10 MG Capsule PO ×3 (06:38→21:51)
[2024-07-31] MEDS: Gabapentin 100 MG Capsule 200 MG PO ×3 (06:38→21:51)
[2024-07-31 06:54] LABS: Bedside Glucose 102 mg/dL (74-106)
[2024-07-31] MEDS: Pantoprazole Sodium 40 MG in 0.9% Normal Saline (100mL MB+) 100 ML 330 MG IV (09:31)
[2024-07-31 11:44] LABS: Bedside Glucose 87 mg/dL (74-106)
[2024-07-31] MEDS: Lactated Ringers 1,000 ML 15 ML IV (12:23)
--- NOTE | 2024-07-31 13:00 | EGD_PTH ---
PATIENT: DILSHAD PULIDO LOC: MS3 U#:[id number] AGE/SX: 38/M ROOM: [facility] RE07/30/[address]: Dr. Victoria Davey DO : 1985 BED: 1 DIS: 08/01/2024 SPEC #: [id number] RECD: 08/01/24 08:52 STATUS: SILVANO RESonia #: [id number] FAHAD: 07/31/24 13:[address]: Jaycob Argueta DEPT: SURGICAL PATHOLOGY RECD BY: Vicente Reynoso ENTERED: 08/01/24 10:25 SP TYPE: EGD BIOPSY [facility] DR: DO Dr. Brenda Celaya MD Dr. Kathryn Lee, DO Danielle Knoble, METALLURGIST PROCESS-C Tissues: A - Gastric mucous membrane B - COLON BIOPSY C - Duodenum, NOS Procedures: Special Stain Group I Surgery Specimen Level IV Alcian Blue/PAS (control) HEADER OPERATION: EGD with biopsies PRE-OP DIAGNOSIS: Intractable vomiting with nausea, hematemesis TISSUE SUBMITTED: A- Gastric cardia, B- Pyloric sphincter, C- Duodenum MICROSCOPIC DIAGNOSIS A. Gastric cardia, biopsy: Moderate chronic active gastritis. See comment. B. Pyloric sphincter, biopsy: Moderate gastritis. See microscopic description and comment. C. Duodenum, biopsy: Fragments of duodenal mucosa with focal mild non-specific chronic inflammation. 08/02/2024 COMMENT A. The results of immunohistochemistry for Helicobacter pylori will be reported separately ([id number]). B. Alcian blue/PAS stain with matched control is used in the evaluation of the specimen. MICROSCOPIC DESCRIPTION Slides are reviewed. B. The specimen shows fragments of gastric mucosa with chronic inflammatory cell infiltrates in the lamina propria consisting of lymphocytes and plasma cells, consistent with moderate chronic gastritis. Focal intestinal metaplasia (goblet cell metaplasia) is also noted. GROSS DESCRIPTION A. Received in fixative is one container labeled with the patient's name and designated Gastric cardia biopsy. The specimen consists of multiple irregular fragments of [place] soft tissue that in aggregate measure 0.8 x 0.2 x 0.1 cm. The specimen is totally submitted in one cassette. B. Received in fixative is one container labeled with the patient's name and designated Pyloric sphincter biopsy. The specimen consists of multiple irregular fragments of [place] soft tissue that in aggregate measure 0.6 x 0.5 x 0.1 cm. The specimen is totally submitted in one cassette. C. Received in fixative is one container labeled with the patient's name and designated Duodenum biopsy. The specimen consists of multiple irregular fragments of [place] soft tissue that in aggregate measure 0.6 x 0.5 x 0.1 cm. The specimen is totally submitted in one cassette. SJ.mr 08/01/2024 TC:2 CPT:26753h7,69390
--- NOTE | 2024-07-31 13:00 | IMM_PTH ---
PATIENT: DILSHAD PULIDO LOC: MS3 U#:[id number] AGE/SX: 38/M ROOM: [facility] RE07/30/[address]: Dr. Victoria Davey DO : 1985 BED: 1 DIS: 08/01/2024 SPEC #: [id number] RECD: 08/01/24 10:38 STATUS: SILVANO REQ #: [id number] FAHAD: 07/31/24 13:[address]: Jaycob Argueta DEPT: IMMUNOHISTOCHEMISTRY RECD BY: Souleymane Lyons ENTERED: 08/01/24 10:38 SP TYPE: IMMUNO OTHR DR: DO Dr. Brenda Celaya MD Dr. Kathryn Lee, DO Danielle Knoble, SENIOR MAINTENANCE TECHNICIAN-C Tissues: A - Gastric mucous membrane Procedures: H Pylori (initial) PHYSICIAN & INSTITUTION [place] [id number] SPECIMEN INFORMATION: Tissue Source: A- Gastric cardia Clinical Info: Intractable vomiting with nausea, hematemesis Specimen Number: [id number] CPT code: 89149 METHODOLOGY: Deparaffinized sections of prefer/formalin-fixed tissue or PAP/DQ stained slides are incubated with monoclonal/polyclonal antibodies/oligonucleotide probes. Localization is made via biotin free immunoperoxidase method. Appropriate controls are performed and reacted as expected. Results on target cell population are indicated in the following table: RESULTS: ANTIBODY / CLONE RESULT Block A H Pylori (polyclonal) positive These tests were developed and their performance characteristics determined by [facility]. They may not have been cleared or approved by the U.[place]. Food and Drug Administration. The FDA has determined that such clearance or approval is not necessary. The above immunohistochemical/dualISH markers are ordered and reviewed by the Pathologist. INTERPRETATION: A. Gastric cardia, biopsy: Positive for Helicobacter pylori organisms. 08/02/2024
--- NOTE | 2024-07-31 13:03 | PCM.PRE.AN2 ---
ASA Classification* ASA Classification ASA Classification: 2 Assessment & Plan Anesthesia* Anesthesia Assessment Anesthesia Assessment: Discussed sedation and/or anesthesia options, risks, benefits, and alternatives with patient/parents/legal guardian/POA. Questions invited. The patient/parents/legal guardian/POA seems to understand and agrees to proceed with anesthesia plan. Reviewed the physical assessment, medical history, allergy history and patient home medications list prior to surgery/procedure/anesthetic and documented any changes. Performed airway and anesthesia risk assessments. Anesthesia Type Anesthesia Type: MAC History Source History Obtained from:: Patient and Chart Anesthesia Focused Assessment* Temperature: 98.2 F Pulse Rate: 86 Blood Pressure: 113/71 Respiratory Rate: 16 Pulse Ox: 95 Oxygen Delivery Method: Room Air Airway Assessment Mouth opens: >3 cm Mallampati Score: II Teeth Condition: Chipped/Broken (Few chipped.) and Missing (Patient is missing a couple teeth) Neck Range of motion (ROM): Limited ROM (Slight decrease in extension) Focused Labs Anesthesia Preop lab: CBC WBC 9.9 K/mm3 (4.4-11.0) 07/31/24 05:54 RBC 4.12 M/mm3 (4.6-6.2) L 07/31/24 05:54 Hgb 11.7 g/dL (13.0-16.5) L 07/31/24 05:54 Hct 36.7 % (40-54) L 07/31/24 05:54 Plt Count 356 K/mm3 (150-450) 07/31/24 05:54 CHEMISTRY Potassium 4.0 mmol/L (3.5-5.1) 07/30/24 06:00 Sodium 136 mmol/L (136-145) 07/30/24 06:00 Magnesium 1.7 mg/dL (1.6-2.6) 07/29/24 23:15 Phosphorus 2.4 mg/dL (2.5-4.9) L 07/29/24 23:15 BUN 16 mg/dL (7-18) 07/30/24 06:00 Creatinine 0.92 mg/dL (0.70-1.30) 07/30/24 06:00 Glucose 182 mg/dL (74-106) H 07/30/24 06:00 POC Glucose 87 mg/dL (74-106) 07/31/24 10:49 TSH 2.59 uIU/mL (0.358-3.74) 01/27/24 12:15 COAG Pre-Assessment Diagnosis/Proposed Procedure Planned Operative Procedure(s): EGD Anesthesia History Anesthesia History - grievance and appeals coordinator: Anesthesia History - grievance and appeals coordinator Hx Hospitalization Yes 03/30/24 15:03 Any Problems With Anesthesia No 07/30/24 20:33 Cholinesterase deficiency No 07/30/24 20:33 You/Your Family Experience No 07/30/24 20:33 fever (hyperthermia) with Relationship Recent Exposure to Contagious No 07/30/24 20:33 Disease Does patient have nerve No 07/30/24 20:33 stimulator Patient instructed to have device shut off --Does patient have Pacemaker or ICD? When Was Last Pacemaker Check QUESTION #4 FULL TEXT: You/Your Family Experience fever (hyperthermia) with Anesthesia Last Oral Intake Last Oral intake: Last Oral Intake NPO since Meds taken in AM with sips of water? Meds patient instructed to take am of surgery Any additional information?: Yes NPO since: 00:00 PONV PONV - grievance and appeals coordinator: PONV - grievance and appeals coordinator Female HX of Motion Sickness HX of N/V After Surgery Non-Smoker Duration of Surgery greater than 60 minutes Number of Risk Factors PONV Score Height & Weight Height & Weight: Anesthesia: Height & Weight Height 5 ft 6 in 07/30/24 02:02 Weight: 64.1 kg 07/31/24 06:00 Body Mass Index (BMI) 22.7 07/31/24 06:00 Respiratory Assessment Respiratory Assessment - grievance and appeals coordinator: Respiratory Tract Infection Hx - grievance and appeals coordinator Hx Respiratory Tract Infection No 07/30/24 20:33 STOP Sleep Apnea STOP Sleep Apnea - grievance and appeals coordinator: STOP Sleep Apnea - grievance and appeals coordinator Hx Hypertension Yes 07/30/24 02:03 Hx Sleep Apnea No 07/30/24 02:03 CPAP No 07/30/24 02:03 BIPAP Do you snore loudly (louder Yes 07/30/24 02:03 than talking or can be heard Do you often feel tired/ No 07/30/24 02:03 fatigued/ sleepy during daytime? Has anyone observed you stop No 07/30/24 02:03 breathing during sleep? STOP Results Positive 07/30/24 02:03 QUESTION #5 FULL TEXT : Do you snore loudly (louder than talking or can be heard through closed doors)? 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 Specify any problems Hx of Preganancy in last 3 N/A 07/30/24 02:03 Months Nurse Filling Out Transfusion DREDICK 07/30/24 02:03 & Questions: Date: 07/30/24 07/30/24 02:03 Time: 02:04 07/30/24 02:03 Patient unable to answer at this time (ie. confused, unrespo /Reproduction History /Reproductive History - grievance and appeals coordinator: /Reproductive Hx- grievance and appeals coordinator Hx Now Gestational Age (in weeks): EDC: Hx Hx Para Hx Section SAB Active Medications Active Medications: Current Medications Generic Name Dose Route Start Last Admin Trade Name Freq PRN Reason Stop Dose Admin Acetaminophen 650 mg 07/30/24 01:54 Acetaminophen 650 Mg Suppository RC Q4H PRN PRN Fever/pain 1-10,poor oral/NPO Acetaminophen 650 mg 07/30/24 01:54 07/30/24 22:32 Acetaminophen 325 Mg Tablet PO 650 mg Q4H PRN PRN Administration Fever, pain 1-10/10 Al Hydrox/Mg Hydrox/Simethicone 30 ml 07/30/24 01:54 Mag /Aluminum/Simeth Wch Udc 30 Ml Oral.Susp PO Q6H PRN PRN Gastric Burning Albuterol Sulfate 2.5 mg 07/30/24 01:54 Albuterol 2.5 Mg/3 Ml Vial.Neb. INHALATION Q2H PRN PRN Dyspnea, wheezing Dicyclomine HCl 10 mg 07/30/24 06:00 07/31/24 06:38 Dicyclomine 10 Mg Capsule PO 10 mg TID XOCHILT Administration Gabapentin 200 mg 07/30/24 06:00 07/31/24 06:38 Gabapentin 100 Mg Capsule PO 200 mg TID XOCHILT Administration Glucagon 1 mg 07/30/24 01:54 Glucagon 1 Mg/Ml Syringe IM X1 PRN HYPOGLYCEMIA Protocol Guaifenesin 20 ml 07/30/24 01:54 Guaifenesin 10 Ml Udc (200mg/10ml) PO Q4H PRN PRN COUGH Hydralazine HCl 10 mg 07/30/24 01:54 Hydralazine 20 Mg/Ml Vial IV Q4H PRN PRN SBP > 160 Protocol Dextrose 250 mls @ 0 mls/hr 07/30/24 01:54 Dextrose 10%-Water IV .Q0M PRN HYPOGLYCEMIA Protocol As Directed Sodium Chloride 250 mls @ 15 mls/hr 07/30/24 01:55 07/30/24 03:55 IV 0 mls/hr .[id number] PRN Infusion Additional IVPB Infusion Sodium Chloride 250 mls @ 15 mls/hr 07/30/24 01:55 IV .[id number] PRN Saline Flush Pantoprazole Sodium 40 mg/ 110 mls @ 330 mls/hr 07/30/24 22:00 07/31/24 09:55 Sodium Chloride IV Infused Q12 XOCHILT Infusion Lactated Ringer's 1,000 mls @ 15 mls/hr 07/31/24 12:15 07/31/24 12:23 IV 15 mls/hr .Q48H XOCHILT Administration Insulin Glargine 12 unit 07/30/24 22:00 07/31/24 00:54 Insulin Glargine-Yfgn 100 Unit/Ml Pen SC 12 unit QHS XOCHILT Administration Insulin Human Lispro 0 unit 07/30/24 01:54 07/31/24 11:33 Insulin Lispro 100 Unit/Ml Insuln.Pen SC Not Given ACHS XOCHILT Protocol Metoclopramide HCl 5 mg 07/30/24 06:00 07/31/24 06:30 Metoclopramide 10 Mg/2 Ml Vial IV 5 mg Q8 XOCHILT Administration Morphine Sulfate 2 mg 07/30/24 01:54 07/30/24 12:35 Morphine 2 Mg/Ml Syringe IV 2 mg Q3H PRN PRN Administration Pain Score 6-10 Ondansetron HCl 4 mg 07/30/24 01:54 07/30/24 12:34 Ondansetron 4 Mg/2 Ml Vial IV 4 mg Q8H PRN PRN Administration NAUSEA/VOMITING Oxycodone HCl 5 mg 07/30/24 01:54 07/30/24 10:14 Oxycodone 5 Mg Tablet PO 5 mg Q4H PRN PRN Administration Pain Score 4-10 Scopolamine HBr 1 patch 07/30/24 01:54 07/30/24 02:53 Scopolamine 1mg/72hr Patch TD 1 applic Q3D XOCHILT Administration Senna/Docusate Sodium 2 tablet 07/30/24 01:54 Senna/Docusate Sodium 1 Tablet PO BID PRN PRN Constipation Sodium Chloride 10 - 40 ml 07/30/24 01:55 07/30/24 22:33 0.9% Saline Lock 10 Ml Syringe IV 10 ml UD PRN Administration SALINE FLUSH Temazepam 15 mg 07/30/24 01:54 07/30/24 22:41 Temazepam 15 Mg Capsule PO 15 mg QHS PRN PRN Administration INSOMNIA PFSH Medical History Former tobacco use Cannabis use disorder Hypertension Schizophrenia Anxiety Depression Migraines Type 2 diabetes mellitus with hyperglycemia Schizo-affective schizophrenia Bipolar 1 disorder Diabetes mellitus Home Medications ?Medication ?Instructions ?Recorded ?Last Taken ?Type pen needle, diabetic 32 gauge x #100 ea 03/29/24 Unknown Rx (BD Ultra-Fine Lizzeth Pen Needle) insulin lispro 100 unit/mL 6 unit subcut TID dm 03/30/24 Unknown History subcutaneous pen (Humalog KwikPen (U-100) Insulin) lisinopril 20 mg tablet 20 mg PO DAILY bp #30 tabs 05/01/24 Unknown Rx pantoprazole 40 mg tablet,delayed 40 mg PO BID gerd #60 tabs 05/01/24 Unknown Rx release blood-glucose meter,continuous #1 ea 05/04/24 Unknown Rx (Dexcom G7 Coater Smoking Pipe) gabapentin 100 mg capsule 200 mg PO TID pain 06/06/24 Unknown History insulin pump cart,automated,BT #10 ea 07/05/24 Unknown Rx (Omnipod 5 G6 Pods (Gen 5) subcutaneous cartridge) insulin pump cartridge,automated #1 ea 07/05/24 Unknown Rx dose,BT with controller subcutaneous (Omnipod 5 G6 Intro Kit (Gen 5) subcutaneous cartridge with controller) blood-glucose sensor (Dexcom G6 #3 ea 07/27/24 Unknown Rx Sensor device) blood-glucose transmitter (Dexcom #1 ea 07/27/24 Unknown Rx G6 Transmitter device) dicyclomine 10 mg capsule 10 mg PO TID abd pain #90 caps 07/28/24 Unknown Rx prochlorperazine maleate 10 mg 10 mg PO TID PRN nausea and 07/28/24 Unknown Rx tablet vomiting #30 tabs scopolamine base 1 mg over 3 days 1 patch transdermal Q3D nausea #4 07/28/24 Unknown Rx transdermal patch ea insulin glargine-yfgn 100 unit/mL 12 unit subcut QHS dm 07/29/24 Unknown History (3 mL) subcutaneous pen metoclopramide HCl 5 mg tablet 5 mg PO Q8H PRN PRN nausea and 07/29/24 Unknown Rx (Reglan) vomiting 7 days #21 tabs insulin lispro 100 unit/mL 50 unit (0.5 mL) continuous 07/31/24 Unknown Rx subcutaneous solution (Humalog subcutaneous infusion .continuous U-100 Insulin) #45 mL Allergy/AdvReac Type Severity Reaction Status Date / Time No Known Allergies Allergy Verified 07/29/24 22:07 Family History Mother Diabetes Sister Diabetes Father CVA (cerebral vascular accident) Myocardial infarction Surgical History (Updated 07/31/24 @ 13:[address] Codey Queen MD) H/O esophagogastroduodenoscopy No history of previous surgery Social History household members: spouse Smoking Status: Former smoker pack-years: 10 how long ago did patient quit smoking: Quit 05/2024, prior smoked ~ 1/2 ppd. second hand exposure: No alcohol intake: former substance use type: marijuana Review of Systems (Anesthesia) ROS Narrative System reviewed and no additional complaints, except as documented.
--- NOTE | 2024-07-31 13:06 | PCM.PRE.AN2 ---
ASA Classification* ASA Classification ASA Classification: 2 Assessment & Plan Anesthesia* Anesthesia Assessment Anesthesia Assessment: Discussed sedation and/or anesthesia options, risks, benefits, and alternatives with patient/parents/legal guardian/POA. Questions invited. The patient/parents/legal guardian/POA seems to understand and agrees to proceed with anesthesia plan. Reviewed the physical assessment, medical history, allergy history and patient home medications list prior to surgery/procedure/anesthetic and documented any changes. Performed airway and anesthesia risk assessments. Anesthesia Type Anesthesia Type: MAC History Source History Obtained from:: Patient and Chart Anesthesia Focused Assessment* Temperature: 98.2 F Pulse Rate: 86 Blood Pressure: 113/71 Respiratory Rate: 16 Pulse Ox: 95 Airway Assessment Mouth opens: >3 cm Mallampati Score: II Teeth Condition: Intact Neck Range of motion (ROM): Full ROM Focused Labs Anesthesia Preop lab: CBC WBC 9.9 K/mm3 (4.4-11.0) 07/31/24 05:54 RBC 4.12 M/mm3 (4.6-6.2) L 07/31/24 05:54 Hgb 11.7 g/dL (13.0-16.5) L 07/31/24 05:54 Hct 36.7 % (40-54) L 07/31/24 05:54 Plt Count 356 K/mm3 (150-450) 07/31/24 05:54 CHEMISTRY Potassium 4.0 mmol/L (3.5-5.1) 07/30/24 06:00 Sodium 136 mmol/L (136-145) 07/30/24 06:00 Magnesium 1.7 mg/dL (1.6-2.6) 07/29/24 23:15 Phosphorus 2.4 mg/dL (2.5-4.9) L 07/29/24 23:15 BUN 16 mg/dL (7-18) 07/30/24 06:00 Creatinine 0.92 mg/dL (0.70-1.30) 07/30/24 06:00 Glucose 182 mg/dL (74-106) H 07/30/24 06:00 POC Glucose 87 mg/dL (74-106) 07/31/24 10:49 TSH 2.59 uIU/mL (0.358-3.74) 01/27/24 12:15 COAG Pre-Assessment Diagnosis/Proposed Procedure Planned Operative Procedure(s): EGD Anesthesia History 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 When Was Last Pacemaker Check QUESTION #4 FULL TEXT: You/Your Family Experience fever (hyperthermia) with Anesthesia Last Oral Intake Last Oral intake: Last Oral Intake NPO since Meds taken in AM with sips of water? 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 Female HX of Motion Sickness HX of N/V After Surgery Non-Smoker Duration of Surgery greater than 60 minutes Number of Risk Factors PONV Score Height & Weight Height & Weight: Anesthesia: Height & Weight Height 5 ft 6 in 07/30/24 02:02 Weight: 64.1 kg 07/31/24 06:00 Body Mass Index (BMI) 22.7 07/31/24 06:00 Respiratory Assessment Respiratory Assessment - airline stewardess: Respiratory Tract Infection Hx - airline stewardess Hx Respiratory Tract Infection No 07/30/24 20:33 STOP Sleep Apnea STOP Sleep Apnea - airline stewardess: STOP Sleep Apnea - airline stewardess Hx Hypertension Yes 07/30/24 02:03 Hx Sleep Apnea No 07/30/24 02:03 CPAP No 07/30/24 02:03 BIPAP Do you snore loudly (louder Yes 07/30/24 02:03 than talking or can be heard Do you often feel tired/ No 07/30/24 02:03 fatigued/ sleepy during daytime? Has anyone observed you stop No 07/30/24 02:03 breathing during sleep? STOP Results Positive 07/30/24 02:03 QUESTION #5 FULL TEXT : Do you snore loudly (louder than talking or can be heard through closed doors)? 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 Specify any problems Hx of Preganancy in last 3 N/A 07/30/24 02:03 Months Nurse Filling Out Transfusion DREDICK 07/30/24 02:03 & Questions: Date: 07/30/24 07/30/24 02:03 Time: 02:04 07/30/24 02:03 Patient unable to answer at this time (ie. confused, unrespo /Reproduction History /Reproductive History - airline stewardess: /Reproductive Hx- airline stewardess Hx Now Gestational Age (in weeks): EDC: Hx Hx Para Hx Section SAB Active Medications Active Medications: Current Medications Generic Name Dose Route Start Last Admin Trade Name Freq PRN Reason Stop Dose Admin Acetaminophen 650 mg 07/30/24 01:54 Acetaminophen 650 Mg Suppository RC Q4H PRN PRN Fever/pain 1-10,poor oral/NPO Acetaminophen 650 mg 07/30/24 01:54 07/30/24 22:32 Acetaminophen 325 Mg Tablet PO 650 mg Q4H PRN PRN Administration Fever, pain 1-10/10 Al Hydrox/Mg Hydrox/Simethicone 30 ml 07/30/24 01:54 Mag /Aluminum/Simeth Wch Udc 30 Ml Oral.Susp PO Q6H PRN PRN Gastric Burning Albuterol Sulfate 2.5 mg 07/30/24 01:54 Albuterol 2.5 Mg/3 Ml Vial.Neb. INHALATION Q2H PRN PRN Dyspnea, wheezing Dicyclomine HCl 10 mg 07/30/24 06:00 07/31/24 06:38 Dicyclomine 10 Mg Capsule PO 10 mg TID XOCHILT Administration Gabapentin 200 mg 07/30/24 06:00 07/31/24 06:38 Gabapentin 100 Mg Capsule PO 200 mg TID XOCHILT Administration Glucagon 1 mg 07/30/24 01:54 Glucagon 1 Mg/Ml Syringe IM X1 PRN HYPOGLYCEMIA Protocol Guaifenesin 20 ml 07/30/24 01:54 Guaifenesin 10 Ml Udc (200mg/10ml) PO Q4H PRN PRN COUGH Hydralazine HCl 10 mg 07/30/24 01:54 Hydralazine 20 Mg/Ml Vial IV Q4H PRN PRN SBP > 160 Protocol Dextrose 250 mls @ 0 mls/hr 07/30/24 01:54 Dextrose 10%-Water IV .Q0M PRN HYPOGLYCEMIA Protocol As Directed Sodium Chloride 250 mls @ 15 mls/hr 07/30/24 01:55 07/30/24 03:55 IV 0 mls/hr .[id number] PRN Infusion Additional IVPB Infusion Sodium Chloride 250 mls @ 15 mls/hr 07/30/24 01:55 IV .[id number] PRN Saline Flush Pantoprazole Sodium 40 mg/ 110 mls @ 330 mls/hr 07/30/24 22:00 07/31/24 09:55 Sodium Chloride IV Infused Q12 XOCHILT Infusion Lactated Ringer's 1,000 mls @ 15 mls/hr 07/31/24 12:15 07/31/24 12:23 IV 15 mls/hr .Q48H XOCHILT Administration Insulin Glargine 12 unit 07/30/24 22:00 07/31/24 00:54 Insulin Glargine-Yfgn 100 Unit/Ml Pen SC 12 unit QHS XOCHILT Administration Insulin Human Lispro 0 unit 07/30/24 01:54 07/31/24 11:33 Insulin Lispro 100 Unit/Ml Insuln.Pen SC Not Given ACHS [facility] Protocol Metoclopramide HCl 5 mg 07/30/24 06:00 07/31/24 06:30 Metoclopramide 10 Mg/2 Ml Vial IV 5 mg Q8 XOCHILT Administration Morphine Sulfate 2 mg 07/30/24 01:54 07/30/24 12:35 Morphine 2 Mg/Ml Syringe IV 2 mg Q3H PRN PRN Administration Pain Score 6-10 Ondansetron HCl 4 mg 09/22/24 01:54 07/30/24 12:34 Ondansetron 4 Mg/2 Ml Vial IV 4 mg Q8H PRN PRN Administration NAUSEA/VOMITING Oxycodone HCl 5 mg 07/30/24 01:54 07/30/24 10:14 Oxycodone 5 Mg Tablet PO 5 mg Q4H PRN PRN Administration Pain Score 4-10 Scopolamine HBr 1 patch 07/30/24 01:54 07/30/24 02:53 Scopolamine 1mg/72hr Patch TD 1 applic Q3D XOCHILT Administration Senna/Docusate Sodium 2 tablet 07/30/24 01:54 Senna/Docusate Sodium 1 Tablet PO BID PRN PRN Constipation Sodium Chloride 10 - 40 ml 07/30/24 01:55 07/30/24 22:33 0.9% Saline Lock 10 Ml Syringe IV 10 ml UD PRN Administration SALINE FLUSH Temazepam 15 mg 07/30/24 01:54 07/30/24 22:41 Temazepam 15 Mg Capsule PO 15 mg QHS PRN PRN Administration INSOMNIA PFSH Medical History Former tobacco use Cannabis use disorder Hypertension Schizophrenia Anxiety Depression Migraines Type 2 diabetes mellitus with hyperglycemia Schizo-affective schizophrenia Bipolar 1 disorder Diabetes mellitus Home Medications ?Medication ?Instructions ?Recorded ?Last Taken ?Type pen needle, diabetic 32 gauge x #100 ea 03/29/24 Unknown Rx (BD Ultra-Fine Lizzeth Pen Needle) insulin lispro 100 unit/mL 6 unit subcut TID dm 03/30/24 Unknown History subcutaneous pen (Humalog KwikPen (U-100) Insulin) lisinopril 20 mg tablet 20 mg PO DAILY bp #30 tabs 05/01/24 Unknown Rx pantoprazole 40 mg tablet,delayed 40 mg PO BID gerd #60 tabs 05/01/24 Unknown Rx release blood-glucose meter,continuous #1 ea 05/04/24 Unknown Rx (Dexcom G7 Mapping Engineer) gabapentin 100 mg capsule 200 mg PO TID pain 06/06/24 Unknown History insulin pump cart,automated,BT #10 ea 07/05/24 Unknown Rx (Omnipod 5 G6 Pods (Gen 5) subcutaneous cartridge) insulin pump cartridge,automated #1 ea 07/05/24 Unknown Rx dose,BT with controller subcutaneous (Omnipod 5 G6 Intro Kit (Gen 5) subcutaneous cartridge with controller) blood-glucose sensor (Dexcom G6 #3 ea 07/27/24 Unknown Rx Sensor device) blood-glucose transmitter (Dexcom #1 ea 07/27/24 Unknown Rx G6 Transmitter device) dicyclomine 10 mg capsule 10 mg PO TID abd pain #90 caps 07/28/24 Unknown Rx prochlorperazine maleate 10 mg 10 mg PO TID PRN nausea and 07/28/24 Unknown Rx tablet vomiting #30 tabs scopolamine base 1 mg over 3 days 1 patch transdermal Q3D nausea #4 07/28/24 Unknown Rx transdermal patch ea insulin glargine-yfgn 100 unit/mL 12 unit subcut QHS dm 07/29/24 Unknown History (3 mL) subcutaneous pen metoclopramide HCl 5 mg tablet 5 mg PO Q8H PRN PRN nausea and 07/29/24 Unknown Rx (Reglan) vomiting 7 days #21 tabs insulin lispro 100 unit/mL 50 unit (0.5 mL) continuous 07/31/24 Unknown Rx subcutaneous solution (Humalog subcutaneous infusion .continuous U-100 Insulin) #45 mL Allergy/AdvReac Type Severity Reaction Status Date / Time No Known Allergies Allergy Verified 07/29/24 22:07 Family History Mother Diabetes Sister Diabetes Father CVA (cerebral vascular accident) Myocardial infarction Surgical History No history of previous surgery Social History household members: spouse Smoking Status: Former smoker pack-years: 10 how long ago did patient quit smoking: Quit 05/2024, prior smoked ~ 1/2 ppd. second hand exposure: No alcohol intake: former substance use type: marijuana Review of Systems (Anesthesia) ROS Narrative System reviewed and no additional complaints, except as documented.
--- NOTE | 2024-07-31 13:30 | PCM.POST.ANE ---
Anesthesia: Postop Eval I Current Vital Signs Temperature: 97.3 F Pulse Rate: 76 Blood Pressure: 122/82 Respiratory Rate: 16 Pulse Ox: 98 Oxygen Delivery Method: Room Air Assessment Airway patent: Yes Spontaneous unlabored respirations: Yes Mental status: Asleep nausea: No Vomiting: No Anesthesia Complication: No Fluid Hydration Crystalloid volume administer (ml): 400 Total IV fluid infused: 400 Progress Note Anesthesia document: Postop Eval 1 completed: Yes
--- NOTE | 2024-07-31 13:35 | OP.EGD_ITS ---
Patient Name: Weston Gamez Procedure Date: 07/31/2024 1:01 PM Date of : 1985 Age: 38 Procedure: Upper GI endoscopy Indications: Epigastric abdominal pain, Functional Dyspepsia, Hematemesis Providers: Jaycob Argueta DO Medicines: Monitored Anesthesia Care Patient Profile: This is a 38 year old male. Refer to note in patient chart for documentation of history and physical. Patient has symptoms of acute epigastric abdominal pain and acute vomiting. Complications: No immediate complications. Procedure: Pre-Anesthesia Assessment: - Prior to the procedure, a History and Physical was performed, and patient medications and allergies were reviewed. The patient is competent. The risks and benefits of the procedure and the sedation options and risks were discussed with the patient. All questions were answered and informed consent was obtained. Patient identification and proposed procedure were verified by the physician in the pre-procedure area. Mental Status Examination: alert and oriented. Airway Examination: normal oropharyngeal airway and neck mobility. Respiratory Examination: clear to auscultation. CV Examination: normal. Prophylactic Antibiotics: The patient does not require prophylactic antibiotics. Prior Anticoagulants: The patient has taken no anticoagulant or antiplatelet agents except for NSAID medication. ASA Grade Assessment: II - A patient with mild systemic disease. After reviewing the risks and benefits, the patient was deemed in satisfactory condition to undergo the procedure. The anesthesia plan was to use monitored anesthesia care (MAC). Immediately prior to administration of medications, the patient was re-assessed for adequacy to receive sedatives. The heart rate, respiratory rate, oxygen saturations, blood pressure, adequacy of pulmonary ventilation, and response to care were monitored throughout the procedure. The physical status of the patient was re-assessed after the procedure. After obtaining informed consent, the endoscope was passed under direct vision. Throughout the procedure, the patient's blood pressure, pulse, and oxygen saturations were monitored continuously. The Endoscope was introduced through the mouth, and advanced to the second part of duodenum. The upper GI endoscopy was accomplished without difficulty. The patient tolerated the procedure well. Scope In: Scope Out: 1:24:10 PM Findings: Non-severe esophagitis with no bleeding was found 37 to 39 cm from the incisors. Two oozing linear gastric ulcers with no stigmata of bleeding were found in the cardia and at the pylorus. The largest lesion was 6 mm in largest dimension. Biopsies were taken with a cold forceps for histology. Verification of patient identification for the specimen was done. Estimated blood loss was minimal. Biopsies were taken with a cold forceps for Helicobacter pylori testing. Verification of patient identification for the specimen was done. Estimated blood loss was minimal. Patchy mild inflammation characterized by erosions and granularity was found in the duodenal bulb. Biopsies were taken with a cold forceps for histology. Verification of patient identification for the specimen was done. Estimated blood loss was minimal. Impression: - Cyclic vomiting syndrome causing : - non-severe reflux esophagitis with no bleeding. - Oozing gastric ulcers with no stigmata of bleeding. Biopsied. - Chronic duodenitis. Biopsied. Recommendation: - Discharge patient to home. - Resume previous diet. - Continue present medications. - Await pathology results. - Protonix 40 mg p.o. twice daily - Amitriptyline 25 mg at night - Documentation was given on cyclic vomiting syndrome and psychiatric disorders Procedure Code(s): --- Professional --- 63792, Esophagogastroduodenoscopy, flexible, transoral; with biopsy, single or multiple CPT copyright 2021 [employer]. All rights reserved. The codes documented in this report are preliminary and upon medical biller coder review may be revised to meet current compliance requirements. Jaycob Argueta DO 07/31/2024 1:35:10 PM This report has been signed electronically. Number of Addenda: 0 Note Initiated On: 07/31/2024 1:01 PM
--- NOTE | 2024-07-31 13:36 | OP.CCLET_ITS ---
07/31/2024 Earlene Geller Re : Upper GI endoscopy procedure for Weston Gamez Noemyr Chelsey This procedure was performed on Wednesday, July 31, 2024. My impressions and recommendations are as follows: Impressions : - Cyclic vomiting syndrome causing : - non-severe reflux esophagitis with no bleeding. - Oozing gastric ulcers with no stigmata of bleeding. Biopsied. - Chronic duodenitis. Biopsied. Recommendations : - Discharge patient to home. - Resume previous diet. - Continue present medications. - Await pathology results. - Protonix 40 mg p.o. twice daily - Amitriptyline 25 mg at night - Documentation was given on cyclic vomiting syndrome and psychiatric disorders My findings are described in the full procedure note, which is enclosed. If I can be of further assistance, please feel free to contact me at . Sincerely, Jaycob Argueta, 07/31/2024 1:35:10 PM This report has been signed electronically.
--- NOTE | 2024-07-31 15:59 | PCM.POSTANE2 ---
Anesthesia Postop Eval I Sum Postop Eval Completion status Anesthesia document: Postop Eval 1 completed: Yes Anesthesia Postop Eval I Summary Anesthesia Postop Eval I Summary: Anesthesia Postop Eval I: Assessment Summary Airway patent Yes 07/31/24 13:32 [email or web address] Spontaneous unlabored Yes 07/31/24 13:32 [email or web address] respirations Mental status Asleep 07/31/24 13:32 [email or web address] nausea No 07/31/24 13:32 [email or web address] Vomiting No 07/31/24 13:32 [email or web address] Anesthesia Postop Eval I: Fluid Summary Crystalloid volume administer 400 07/31/24 13:32 [email or web address] (ml) Colloids volume administered ( ml) Blood Product volume administered (ml) Total IV fluid infused 400 07/31/24 13:32 [email or web address] Anesthesia Postop Eval I: Summary Notes Anesthesia Complication No 07/31/24 13:32 [email or web address] Anesthesia Complication Comment: Post-operative progress note Anesthesia: Postop Eval II Evaluation Mental status: Awake and Calm Pain Level: 0 nausea: No Vomiting: No Progress Note Post-operative progress note: Nausea better Complications Anesthesia Complication: No
--- NOTE | 2024-07-31 16:41 | CASEMGMT ---
Met with patient to complete CHRIS form. CHRIS form explained to patient who voiced understanding and signed form. Original form placed in pt?s chart and copy provided to patient. Jeannette Nix, Discharge Planning Asst
[2024-07-31] MEDS: Sucralfate 1 GM Tablet PO ×2 (16:53→21:51)
[2024-07-31] MEDS: Insulin Lispro 100 UNIT/ML INSULN.PEN SC ×2 (16:53→21:52)
[2024-07-31 16:54] LABS: Bedside Glucose 169 mg/dL (74-106)
--- NOTE | 2024-07-31 20:15 | PN.HOSP_ITS ---
Reason for Visit Reason for Visit: Intractable nausea and vomiting Subjective Subjective Patient is a 38-year-old -Serbian male with a history of schizoaffective disorder, diabetes, and gastroparesis with cyclic vomiting syndrome due to previous TSH use who presented to the emergency department at [facility] on 07/1012/28/2023 with a chief complaint of intractable nausea vomiting and abdominal pain. Has been ongoing for about 2 days prior to presentation and abdominal discomfort was diffuse and associated with nausea and emesis. He has been having regular bowel movements and passing flatus. Vital signs on presentation showed mild tachycardia but were otherwise unremarkable. CBC was overall unremarkable. VBG was performed and showed normal pH. BMP showed mild dehydration with a sodium of 132, BUN of 25 and serum creatinine 1.26. Glucose was 244. Lipase was normal at 35 and acetone was negative. Chest x-ray was unremarkable. He did have a recent CT of his abdomen pelvis on 07/28/2024 that showed thickening of the gastric wall and folds that was nonspecific and no other acute intra-abdominal abnormality. He is well-known to Dr. Argueta. He was admitted to the medical floor and placed on IV fluids, antiemetics, clear liquid diet and transition to IV Protonix twice daily. GI evaluated the patient on 07/30/2020 for and took him for endoscopy on 07/31/2024. This revealed nonsevere esophagitis with no bleeding, 2 oozing linear gastric ulcers with no stigmata of bleeding and biopsies were taken, mild patchy inflammation and erosions with granularity at the duodenal bulb where biopsies were taken. Hemostasis was achieved at the ulcer sites and it was recommended that he continue Protonix 40 mg p.o. twice daily and start amitriptyline 25 mg at at bedtime. It is felt that he is predominantly a victim of cyclic vomiting syndrome related to previous marijuana use and history of schizophrenia but there also is concerned about H. pylori infection because he had previous infection. Patient states that he is feeling okay right now. He is just returned from the endoscopy suite he was placed on a full liquid diet. We discussed that would see how he does tonight after starting new medications and follow-up tomorrow to assess for possible discharge and outpatient follow-up. Objective Data Objective Data Vital Signs: Vital Signs Temp Pulse Resp BP Pulse Ox O2 Del Method 98.8 F 76 16 141/93 H 100 Room Air 07/31/24 14:58 07/31/24 14:58 07/31/24 14:58 07/31/24 14:58 07/31/24 14:58 07/31/24 14:58 Oxygen Delivery Method Room Air Weight: 64.1 kg Body Mass Index (BMI) 22.7 Intake & Output: Intake and Output for Last 24 Hours 07/29/24 07/30/24 07/31/24 23:59 23:59 23:59 Intake Total 3140.58 / 3390.58 560 / 560 Balance 3140.58 / 3390.58 560 / 560 Lab / Micro Data 07/31/24 05:54 07/30/24 06:00 Labs: Laboratory Results - last 24 hr 07/30/24 22:26: POC Glucose 142 H 07/31/24 00:53: POC Glucose 114 H 07/31/24 05:54: WBC 9.9, RBC 4.12 L, Hgb 11.7 L, Hct 36.7 L, MCV 89.1, MCH 28.4, MCHC 31.9 L, RDW Std Deviation 42.5, RDW Coeff of [place] 13.0, Plt Count 356, MPV 9.2 07/31/24 06:27: POC Glucose 102 07/31/24 10:49: POC Glucose 87 07/31/24 16:31: POC Glucose 169 H Rhythm Strip Rhythm Strip: Sinus Tach Rate: 115 Ectopy: None Physical Exam Const alert, oriented x3, no apparent distress, average body habitus and healthy appearing Constitutional Narrative: Middle-aged, -Serbian gentleman, sitting up in bed, appears comfortable, nontoxic HEENT head/scalp atraumatic and moist oral mucous membranes Head and Scalp: normocephalic Resp normal respiratory effort, no retractions, no use of accessory muscles and clear to auscultation bilaterally Auscultation: Negative for rales, rhonchi or wheezes Cardio regular rate, regular rhythm, S1 normal heart sound, S2 normal heart sound, no murmurs, no rub, no gallops and no clicks GI normal to inspection, nondistended, normoactive bowel sounds, soft to palpation and non-tender Extremity no clubbing, cyanosis or edema Extremity Narrative: Pedal pulses are 2+ Neuro oriented x3, moves all extremities and no focal motor deficits Speech: speech normal Psych Psych Narrative: Affect is strange, seems slightly flat, makes good eye contact and answers questions appropriately Assessment & Plan Assessment/Plan (1) Diffuse abdominal pain: (2) Intractable vomiting with nausea: (3) Gastric ulcer: PLAN: Plan Intractable nausea vomiting -Suspect multifactorial with gastroparesis/previous cyclic vomiting syndrome with THC use/possible H. pylori infection -Protonix 40 mg p.o. twice daily -Start amitriptyline 25 mg at at bedtime per discussion with gastroenterology -Full liquid diet to be advanced as tolerated -Discontinue Reglan -Continue scopolamine patch -Continue as needed Zofran -Patient denies any cannabis use in last 2 months -GI following-appreciate input Oozing gastric ulcers/GERD/esophagitis -Treated and biopsied -H. pylori testing pending -Continue Protonix 40 mg but transition to oral -Start Carafate 4 times daily -Await biopsies to see if we need to treat for H. pylori -Full liquid diet per GI -Hemoglobin is stable DM-1 -Continue basal insulin 12 units at at bedtime -If tolerates p.o. diet well restart prandial insulin 6 units 3 times daily -Continue SSI -When diet advances will need to be on carb controlled diet Hypertension -Continue home lisinopril Diabetic neuropathy -Continue home gabapentin Anxiety/depression/schizoaffective disorder -Patient is not on any home medications or psychiatric issues -Recommend outpatient follow-up History of cannabis use -Denies any use in the last 2 months and confirms -Encourage ongoing cessation History of tobacco abuse -Quit 2 months ago -Encourage ongoing cessation DVT prophylaxis -SCDs for now -Hold chemoprophylaxis but okay to initiate if needs to be here after tomorrow Charges/Coding Visit Charges Inpatient E&M: 58144 Subs Hosp L2
[2024-07-31] MEDS: Pantoprazole Sodium 40 MG Tablet PO (21:51)
[2024-07-31] MEDS: Amitriptyline 25 MG Tablet PO (21:51)
[2024-07-31] MEDS: MELATONIN 3 MG TABLET 6 MG PO (23:32)
[2024-08-01 00:10] LABS: Bedside Glucose 348 mg/dL (74-106)
[2024-08-01 01:29] VITALS: BMI 22.7
[2024-08-01 03:45] VITALS: BP 111/74; PULSE 73; RESP 16; TEMP 36.6; O2SAT 100
[2024-08-01] MEDS: Insulin Lispro 100 UNIT/ML INSULN.PEN SC ×2 (06:47→11:44)
[2024-08-01] MEDS: Dicyclomine 10 MG Capsule PO ×2 (06:47→14:01)
[2024-08-01] MEDS: Gabapentin 100 MG Capsule 200 MG PO ×2 (06:47→13:58)
[2024-08-01] MEDS: Sucralfate 1 GM Tablet PO ×2 (06:47→11:44)
[2024-08-01 07:20] LABS: Bedside Glucose 210 mg/dL (74-106)
[2024-08-01 07:39] LABS: Anion Gap 6 (5-15); BUN 14 mg/dL (7-18); BUN/Creat Ratio 15.4 RATIO (10-20); Calcium,Total 8.9 mg/dL (8.5-10.1); Chloride 107 mmol/L (98-107); Creatinine, Serum 0.91 mg/dL (0.70-1.30); EST Glomerular Filtration Rate 99 mL/min (>60); Est Glom Filt Rate - Afr Amer 120 mL/min (>60); Estimated Creatinine Clearance 99.32 ml/min; Glucose 199 mg/dL (74-106); Potassium 3.7 mmol/L (3.5-5.1); Sodium Level 137 mmol/L (136-145)
[2024-08-01 07:43] LABS: Hemoglobin 11.2 g/dL (13.0-16.5); Mean Corp Hgb Conc 32.9 g/dL (32-36); Mean Corpuscular Hgb 28.6 pg (27.0-32.0); Mean Corpuscular Volume 86.7 fL (80-94); Mean Platelet Vol. 9.8 fl (6.2-12.0); Platelet Count 361 K/mm3 (150-450); RBC Distribution Width CV 12.7 % (11.6-14.6); Red Blood Count 3.92 M/mm3 (4.6-6.2); White Blood Count 12.1 K/mm3 (4.4-11.0)
[2024-08-01 07:59] VITALS: O2SAT 95
[2024-08-01 08:40] VITALS: BP 123/80; PULSE 94; RESP 16; TEMP 36.2; O2SAT 94
[2024-08-01] MEDS: Pantoprazole Sodium 40 MG Tablet PO (08:43)
[2024-08-01] MEDS: Insulin Lispro 100 UNIT/ML INSULN.PEN 6 UNIT SC (11:45)
[2024-08-01 12:03] LABS: Bedside Glucose 225 mg/dL (74-106)
--- NOTE | 2024-08-01 13:52 | DS.PCM_ITS ---
Providers Date of Admission: 07/30/24 Date of Discharge: 08/01/24 Primary Care Physician: Heena Barbosa, OBSTETRICS NURSE-C Reason For Visit: INTRACTABLE N/V GASTRITIS HEMATEMESIS Diagnosis Discharge Diagnosis (1) Diffuse abdominal pain: Status: Acute Code(s): R10.84 - Generalized abdominal pain (2) Intractable vomiting with nausea: Status: Acute Code(s): R11.2 - Nausea with vomiting, unspecified (3) Gastric ulcer: Status: Acute Code(s): K25.9 - Gastric ulcer, unspecified as acute or chronic, without hemorrhage or perforation Medications at Discharge Home Medications pen needle, diabetic 32 gauge x 5/32 (BD Ultra-Fine Lizzeth Pen Needle) #100 ea 03/29/24 insulin lispro 100 unit/mL subcutaneous pen (Humalog KwikPen (U-100) Insulin) 6 unit subcut TID dm 03/30/24 lisinopril 20 mg tablet 20 mg PO DAILY bp #30 tabs 05/01/24 blood-glucose meter,continuous (Dexcom G7 Retail Advertising Account Executive) #1 ea 05/04/24 gabapentin 100 mg capsule 200 mg PO TID pain 06/06/24 insulin pump cart,automated,BT (Omnipod 5 G6 Pods (Gen 5) subcutaneous cartridge) #10 ea 07/05/24 insulin pump cartridge,automated dose,BT with controller subcutaneous (Omnipod 5 G6 Intro Kit (Gen 5) subcutaneous cartridge with controller) #1 ea 07/05/24 blood-glucose sensor (Dexcom G6 Sensor device) #3 ea 07/27/24 blood-glucose transmitter (Dexcom G6 Transmitter device) #1 ea 07/27/24 dicyclomine 10 mg capsule 10 mg PO TID abd pain #90 caps 07/28/24 prochlorperazine maleate 10 mg tablet 10 mg PO TID PRN nausea and vomiting #30 tabs 07/28/24 scopolamine base 1 mg over 3 days transdermal patch 1 patch transdermal Q3D nausea #4 ea 07/28/24 insulin glargine-yfgn 100 unit/mL (3 mL) subcutaneous pen 12 unit subcut QHS dm 07/29/24 metoclopramide HCl 5 mg tablet (Reglan) 5 mg PO Q8H PRN PRN nausea and vomiting 7 days #21 tabs 07/29/24 amitriptyline 25 mg tablet 25 mg PO QHS #30 tabs 08/01/24 insulin glargine-yfgn 100 unit/mL (3 mL) subcutaneous pen 16 unit (0.16 mL) subcut QHS #0 mL 08/01/24 insulin lispro 100 unit/mL subcutaneous solution (Humalog U-100 Insulin) 50 unit (0.5 mL) continuous subcutaneous infusion .continuous #45 mL 08/01/24 pantoprazole 40 mg tablet,delayed release 40 mg PO BID #60 tabs 08/01/24 sucralfate 1 gram tablet 1 g PO Q6H #120 tabs 08/01/24 Hospital Course Summary of Care Provided Minutes Spent on Discharge: 38 Hospital Course: Mr. Gamez is a 38-year-old -[place] male with a history of schizoaffective disorder, diabetes, and gastroparesis with cyclic vomiting syndrome due to previous TSH use who presented to the emergency department at [facility] on 07/1012/28/2023 with a chief complaint of intractable nausea vomiting and abdominal pain. Has been ongoing for about 2 days prior to presentation and abdominal discomfort was diffuse and associated with nausea and emesis. He has been having regular bowel movements and passing flatus. Vital signs on presentation showed mild tachycardia but were otherwise unremarkable. CBC was overall unremarkable. VBG was performed and showed normal pH. BMP showed mild dehydration with a sodium of 132, BUN of 25 and serum creatinine 1.26. Glucose was 244. Lipase was normal at 35 and acetone was negative. Chest x-ray was unremarkable. He did have a recent CT of his abdomen pelvis on 07/28/2024 that showed thickening of the gastric wall and folds that was nonspecific and no other acute intra-abdominal abnormality. He is well-known to Dr. Argueta. He was admitted to the medical floor and placed on IV fluids, antiemetics, clear liquid diet and transition to IV Protonix twice daily. GI evaluated the patient on 07/30/2020 for and took him for endoscopy on 07/31/2024. This revealed nonsevere esophagitis with no bleeding, 2 oozing linear gastric ulcers with no stigmata of bleeding and biopsies were taken, mild patchy inflammation and erosions with granularity at the duodenal bulb where biopsies were taken. Hemostasis was achieved at the ulcer sites and it was recommended that he continue Protonix 40 mg p.o. twice daily and start amitriptyline 25 mg at at bedtime. It is felt that he is predominantly a victim of cyclic vomiting syndrome related to previous marijuana use and history of schizophrenia but there also is concerned about H. pylori infection because he had previous infection. After his EGD he was placed on a full liquid diet and tolerated this extremely well. He had no further recurrence of his nausea and vomiting. We did trial him on a regular diet prior to discharge on 08/01/2024 and he did well with this as well. We did write prescriptions for his Protonix 40 mg twice daily with instructions to stop his daily dose and this will be ongoing for a total of 12 weeks, Carafate 4 times daily for total of 8 weeks, and his amitriptyline 25 mg nightly at the instruction of gastroenterology. His fasting blood sugars were still elevated so we did increase his Lantus slightly from 12 units to 16 units at at bedtime and continued his prandial insulin at 6 units 3 times daily. Patient did report that he is to be getting an insulin pump soon but this has yet to be filled. We scheduled a follow-up appointment for him to be seen with Dr. Argueta on 08/15/2024 and opacities follow-up with his primary care physician within the next 1 to 2 weeks. Patient was discharged home in stable condition on 08/01/2024. Biopsies and H. pylori testing were pending at the time of discharge. Discharge diagnoses: Intractable nausea and vomiting-resolved Oozing gastric ulcers Esophagitis GERD DM-1 Hypertension Diabetic neuropathy Anxiety Depression Schizoaffective disorder History of cannabis use History of tobacco abuse Physical Exam Const alert, oriented x3, no apparent distress, average body habitus and healthy appearing Constitutional Narrative: Middle-aged, -[place] gentleman, sitting up in bed, appears comfortable, nontoxic, at bedside General Appearance: cooperative, comfortable, well kempt and well developed Orientation / Consciousness: awake, oriented to person, oriented to place and oriented to time Exam Limitations: no limitations HEENT normocephalic, head/scalp atraumatic, hearing grossly normal bilaterally and moist oral mucous membranes HEENT Narrative: Mallampati 2, no thrush Eyes Eyes Narrative: No scleral icterus Neck no lymphadenopathy and supple Neck Narrative: Trachea midline, no thyroid enlargement Resp normal respiratory effort, no retractions, no use of accessory muscles and clear to auscultation bilaterally Auscultation: Negative for rales, rhonchi or wheezes Cardio regular rate, regular rhythm, S1 normal heart sound, S2 normal heart sound, no murmurs, no rub, no gallops and no clicks GI normal to inspection, nondistended, normoactive bowel sounds, soft to palpation and non-tender Extremity no clubbing, cyanosis or edema Extremity Narrative: Pedal pulses are 2+ Skin no rashes or lesions noted, no wounds, skin turgor normal and no jaundice Neuro oriented x3, moves all extremities and no focal motor deficits Speech: speech normal Psych affect normal Psych Narrative: Pleasant, interacts appropriately, eye contact is good Weight / BMI Weight Weight: 64.1 kg Body Mass Index (BMI) 22.7 ABG / Lab / Microbiology Data 08/01/24 06:37 08/01/24 06:37 Laboratory: Laboratory Results - last 24 hr 07/31/24 16:31: POC Glucose 169 H 07/31/24 21:48: POC Glucose 348 H 08/01/24 06:35: POC Glucose 210 H 08/01/24 06:37: WBC 12.1 H, RBC 3.92 L, Hgb 11.2 L, Hct 34.0 L, MCV 86.7, MCH 28.6, MCHC 32.9, RDW Std Deviation 40.0, RDW Coeff of [place] 12.7, Plt Count 361, MPV 9.8, Sodium 137, Potassium 3.7, Chloride 107, Carbon Dioxide 24.0, Anion Gap 6, BUN 14, Creatinine 0.91, Estim Creat Clear Calc 99.32, Est GFR (MDRD) Af Amer 120, Est GFR (MDRD) Non-Af 99, BUN/Creatinine Ratio 15.4, Glucose 199 H, Calcium 8.9 08/01/24 11:43: POC Glucose 225 H D/C Instructions Discharge Diet: Light diet - advance as tolerated (Start bland) Discharge Activity: Return to Normal Activity Meaningful Use Info Meaningful Use Meaningful Use Diagnoses (Choose all that apply): None applicable Ischemic Stroke Statin Dosing Therapy Reference: STATIN DOSE THERAPY REFERENCE: * Patients > 75 years receive moderate or high dose statin therapy. * Patients 75 years or YOUNGER should receive HIGH intensity statin dose unless contraindicated. You will be required to document reason for non-treatment if statin daily dose does not meet guidelines. HIGH DOSE STATIN THERAPY DAILY Atorvastatin > than or = to 40 mg Rosuvastatin > than or = to 20 mg Amlodipine + Atorvastatin > than or = to 2.5/40 mg Ezetimibe + Simvastatin 10/80 mg Simvastatin 80mg Discharge Plan Admission Admit Date/Time: 07/30/24 00:50 Primary Reason for Your Visit: Intractable nausea/vomiting/abdominal pain Attending Provider: Victoria Davey Primary Care Provider: Heena Barbosa Consulting Providers: Brenda Hollins; Troy Wagoner Discharge Orders/Prescriptions Prescriptions: New amitriptyline 25 mg Tablet 25 mg PO QHS Qty: 30 2RF insulin glargine-yfgn 100 unit/mL (3 mL) Insulin Pen 16 unit subcut QHS Qty: 0 0RF pantoprazole 40 mg Tablet,Delayed Release (Dr/Ec) 40 mg PO BID Qty: 60 2RF sucralfate 1 gram Tablet 1 g PO Q6H Qty: 120 1RF Continued gabapentin 100 mg capsule 200 mg PO TID (DME) Omnipod 5 G6 Intro Kit (Gen 5) Cartridge See Rx Instructions .Route Qty: 1 0RF Rx Instructions: As directed (DME) Omnipod 5 G6 Pods (Gen 5) Cartridge See Rx Instructions .Route Qty: 10 5RF Rx Instructions: 1 pod q 3 days Please make sure that pods are G7 compatible insulin lispro [Humalog KwikPen Insulin] 100 unit/mL insulin pen 6 unit subcut TID Patient Comments: PT STATES HE TAKES BEFORE MEALS, 3 units with snacks metoclopramide HCl [Reglan] 5 mg tablet 5 mg PO Q8H PRN PRN (Reason: nausea and vomiting) 7 Days Qty: 21 0RF insulin glargine-yfgn 100 unit/mL (3 mL) Insulin Pen 12 unit subcut QHS insulin lispro [Humalog U-100 Insulin] 100 unit/mL solution 50 unit continuous subcutaneous infusion .continuous Qty: 45 1RF Rx Instructions: Use subcutaneous insulin as you had been previously less otherwise instructed (DME) pen needle, diabetic [BD Ultra-Fine Lizzeth Pen Needle] 32 gauge x 5/32 needle See Rx Instructions .Route Qty: 100 5RF Rx Instructions: 4x/day lisinopril 20 mg tablet 20 mg PO DAILY Qty: 30 6RF (DME) Dexcom G7 Retail Advertising Account Executive Misc See Rx Instructions .Route Qty: 1 0RF Rx Instructions: As directed (DME) Dexcom G6 Sensor Device See Rx Instructions .Route Qty: 3 5RF Rx Instructions: 1 sensor q 10 days (DME) Dexcom G6 Transmitter Device See Rx Instructions .Route Qty: 1 1RF Rx Instructions: 1 transmitter q 90 days scopolamine base 1 mg over 3 days patch 3 day 1 patch transdermal Q3D Qty: 4 0RF prochlorperazine maleate 10 mg tablet 10 mg PO TID PRN (Reason: nausea and vomiting) Qty: 30 3RF dicyclomine 10 mg capsule 10 mg PO TID Qty: 90 1RF Discontinued pantoprazole 40 mg tablet,delayed release (DR/EC) 40 mg PO BID Qty: 60 2RF Referrals / Follow Up: Jaycob Argueta DO [Med Staff - Active Staff] - 08/15/24 2:00 pm (This appointment will be with Susi DIAS) Heena Barbosa NP-C [Primary Care Provider] - 08/07/24 9:20 am Disposition Disposition (needs filled in before D/C Order can be placed): Home, Self Care Charges/Coding Visit Charges Inpatient E&M: 63748 Disch Hosp >30min
[2024-08-01 14:03] VITALS: BP 146/83; PULSE 75; RESP 16; TEMP 36.8; O2SAT 95
--- NOTE | 2024-08-01 17:27 | EX.PCM.PN.GI ---
Subjective Subjective Patient is abdominal pain is a lot better today. He is tolerating a regular diet with current medication regimen. Objective Data Objective Data Vital Signs: Vital Signs Temp Pulse Resp BP Pulse Ox O2 Del Method 98.3 F 75 16 146/83 H 95 Room Air 08/01/24 14:03 08/01/24 14:03 08/01/24 14:03 08/01/24 14:03 08/01/24 14:03 08/01/24 14:03 Oxygen Delivery Method Room Air Weight: 141 lb 5.061 oz Body Mass Index (BMI) 22.7 Intake & Output: Intake and Output for Last 24 Hours 07/30/24 07/31/24 08/01/24 23:59 23:59 23:59 Intake Total 3140.58 / 3390.58 560 / 560 0 / 0 Balance 3140.58 / 3390.58 560 / 560 0 / 0 Lab / Micro Data 08/01/24 06:37 08/01/24 06:37 Labs: Laboratory Results - last 24 hr 07/31/24 21:48: POC Glucose 348 H 08/01/24 06:35: POC Glucose 210 H 08/01/24 06:37: WBC 12.1 H, RBC 3.92 L, Hgb 11.2 L, Hct 34.0 L, MCV 86.7, MCH 28.6, MCHC 32.9, RDW Std Deviation 40.0, RDW Coeff of [place] 12.7, Plt Count 361, MPV 9.8, Sodium 137, Potassium 3.7, Chloride 107, Carbon Dioxide 24.0, Anion Gap 6, BUN 14, Creatinine 0.91, Estim Creat Clear Calc 99.32, Est GFR (MDRD) Af Amer 120, Est GFR (MDRD) Non-Af 99, BUN/Creatinine Ratio 15.4, Glucose 199 H, Calcium 8.9 08/01/24 11:43: POC Glucose 225 H Rhythm Strip Rhythm Strip: Sinus Tach Rate: 115 Ectopy: None Physical Exam Const alert, oriented x3, no apparent distress, average body habitus and healthy appearing Constitutional Narrative: \ General Appearance: cooperative, comfortable, well kempt and well developed Orientation / Consciousness: awake, oriented to person, oriented to place and oriented to time Exam Limitations: no limitations HEENT normocephalic, head/scalp atraumatic, hearing grossly normal bilaterally and moist oral mucous membranes HEENT Narrative: Mallampati 2, no thrush Eyes Eyes Narrative: No scleral icterus Neck no lymphadenopathy and supple Neck Narrative: Trachea midline, no thyroid enlargement Resp normal respiratory effort, no retractions, no use of accessory muscles and clear to auscultation bilaterally Auscultation: Negative for rales, rhonchi or wheezes Cardio regular rate, regular rhythm, S1 normal heart sound, S2 normal heart sound, no murmurs, no rub, no gallops and no clicks GI normal to inspection, nondistended, normoactive bowel sounds, soft to palpation and non-tender Extremity no clubbing, cyanosis or edema Extremity Narrative: Pedal pulses are 2+ Skin no rashes or lesions noted, no wounds, skin turgor normal and no jaundice Neuro oriented x3, moves all extremities and no focal motor deficits Speech: speech normal Psych affect normal Psych Narrative: Pleasant, interacts appropriately, eye contact is good Assessment & Plan Assessment/Plan (1) Diffuse abdominal pain: (2) Intractable vomiting with nausea: (3) Gastric ulcer: PLAN: Plan Intractable nausea vomiting -Suspect multifactorial with gastroparesis/previous cyclic vomiting syndrome with THC use/possible H. pylori infection -Protonix 40 mg p.o. twice daily -Start amitriptyline 25 mg at at bedtime -Full liquid diet to be advanced as tolerated -Discontinue Reglan -Continue scopolamine patch -Continue as needed Zofran -Patient denies any cannabis use in last 2 months - Oozing gastric ulcers/GERD/esophagitis -Treated and biopsied -H. pylori testing pending -Continue Protonix 40 mg but transition to oral -Start Carafate 4 times daily -Await biopsies to see if we need to treat for H. pylori -Full liquid diet -Hemoglobin is stable Charges/Coding Visit Charges Inpatient E&M: 37748 Subs Hosp L3
== END 2024-08-01 15:00 | disposition home or self-care (01) ==
LOC: ED 07-30 00:25 → MS3 07-30 01:35
PROVIDERS: Hospitalist; Internal Medicine Gastroenterology; Admitting Provider Family Medicine; Emergency Provider Emergency Medicine; PCP Nurse Practitioner Family; Visit Provider Internal Medicine
PROC: 0DJ08ZZ Inspection of Upper Intestinal Tract, Via Natural or Artificial Opening Endoscopic (ICD-10-PCS; CPT 43235; principal; 2024-07-31 12:55)
DX: R11.15 Cyclical vomiting syndrome unrelated to migraine (principal); E10.43 Type 1 diabetes mellitus with diabetic autonomic (poly)neuropathy; E10.65 Type 1 diabetes mellitus with hyperglycemia; Z79.4 Long term (current) use of insulin; E10.40 Type 1 diabetes mellitus with diabetic neuropathy, unspecified; E86.0 Dehydration; I10 Essential (primary) hypertension; K25.0 Acute gastric ulcer with hemorrhage; K21.00 Gastro-esophageal reflux disease with esophagitis, without bleeding; R10.84 Generalized abdominal pain; Z96.41 Presence of insulin pump (external) (internal); K29.80 Duodenitis without bleeding; K92.0 Hematemesis; B96.81 Helicobacter pylori [H. pylori] as the cause of diseases classified elsewhere; K29.50 Unspecified chronic gastritis without bleeding; Z79.899 Other long term (current) drug therapy; E87.1 Hypo-osmolality and hyponatremia; K29.70 Gastritis, unspecified, without bleeding; F17.210 Nicotine dependence, cigarettes, uncomplicated
CPT/HCPCS: 43239; 36415; 71045; 74177; 80048; 80053; 82009; 82803; 82962; 83690; 83735; 84100; 85025; 85027; 88305; 88312; 88342; 94668; 96361; 96365; 96366; 96374; 96375; 96376; 99221; 99282; 99284; Q9967; A4216; G0378; J2405

== ENCOUNTER 2024-10-28 13:40 | Emergency (ER) | payer MEDICARE, MEDICAID, SELFPAY ==
[2024-10-28 13:41] VITALS: BP 159/102; PULSE 112; RESP 26; TEMP 36.2; O2SAT 95; BMI 23.8
--- NOTE | 2024-10-28 14:11 | EKG12_ITS ---
Test Reason : LOW BS Blood Pressure : */* mmHG Vent. Rate : 109 BPM Atrial Rate : 109 BPM P-R Int : 142 ms QRS Dur : 68 ms QT Int : 326 ms P-R-T Axes : 76 -42 43 degrees QTcB Int : 439 ms Sinus tachycardia Left axis deviation Nonspecific ST abnormality Abnormal ECG Confirmed by TRAE IVERSON, SERVANDO ([id number]), film editor supervisor JOSEPH SINGH ([id number]) on 10/30/2024 7:05:56 AM Referred By: Confirmed By: SERVANDO LARKIN MD
--- NOTE | 2024-10-28 14:11 | ED.VIS.GI ---
HPI HPI - GI History of Present Illness Chief Complaint: Abd Pain Narrative Narrative: 39-year-old male past medical history of bipolar disorder, GERD, gastroparesis, biliary gastritis, sees Dr. Argueta for gastroenterology presents with nausea and vomiting since yesterday evening. His states he tried to eat a sandwich. The last time his gastroparesis acted up on him was 2 weeks ago when he was seen at [facility]. They state that the last time he was here, he had a small tear that had to be fixed by Dr. Argueta from the nausea and vomiting. Patient complains of diffuse abdominal pain since last evening as well as multiple episodes of nausea and vomiting without blood in his emesis. No exacerbating or alleviating factors. [facility] Medical History Gastroparesis Former tobacco use Cannabis use disorder Hypertension Schizophrenia Anxiety Depression Migraines Type 2 diabetes mellitus with hyperglycemia Schizo-affective schizophrenia Bipolar 1 disorder Diabetes mellitus Home Medications ?Medication ?Instructions ?Recorded ?Last Taken ?Type pen needle, diabetic 32 gauge x #100 ea 03/29/24 Unknown Rx (BD Ultra-Fine Lizzeth Pen Needle) insulin lispro 100 unit/mL 6 unit subcut TID dm 03/30/24 Unknown History subcutaneous pen (Humalog KwikPen (U-100) Insulin) lisinopril 20 mg tablet 20 mg PO DAILY bp #30 tabs 05/01/24 Unknown Rx blood-glucose meter,continuous #1 ea 05/04/24 Unknown Rx (Dexcom G7 Banking Analyst) gabapentin 100 mg capsule 200 mg PO TID pain 06/06/24 Unknown History insulin pump cart,automated,BT #10 ea 07/05/24 Unknown Rx (Omnipod 5 G6 Pods (Gen 5) subcutaneous cartridge) insulin pump cartridge,automated #1 ea 07/05/24 Unknown Rx dose,BT with controller subcutaneous (Omnipod 5 G6 Intro Kit (Gen 5) subcutaneous cartridge with controller) insulin glargine-yfgn 100 unit/mL 12 unit subcut QHS dm 07/29/24 Unknown History (3 mL) subcutaneous pen metoclopramide HCl 5 mg tablet 5 mg PO Q8H PRN PRN nausea and 07/29/24 Unknown Rx (Reglan) vomiting 7 days #21 tabs amitriptyline 25 mg tablet 25 mg PO QHS #30 tabs 08/01/24 Unknown Rx insulin glargine-yfgn 100 unit/mL 16 unit (0.16 mL) subcut QHS #0 mL 08/01/24 Unknown Rx (3 mL) subcutaneous pen insulin lispro 100 unit/mL 50 unit (0.5 mL) continuous 08/01/24 Unknown Rx subcutaneous solution (Humalog subcutaneous infusion .continuous U-100 Insulin) #45 mL sucralfate 1 gram tablet 1 g PO Q6H #120 tabs 08/01/24 Unknown Rx blood-glucose sensor (Dexcom G6 #9 ea 08/03/24 Unknown Rx Sensor device) pantoprazole 40 mg tablet,delayed 40 mg PO BID #60 tabs 08/15/24 Unknown Rx release blood-glucose transmitter (Dexcom #1 ea 10/23/24 Unknown Rx G6 Transmitter device) dicyclomine 10 mg capsule 10 mg PO TID abd pain #90 caps 10/24/24 Unknown Rx Allergy/AdvReac Type Severity Reaction Status Date / Time No Known Allergies Allergy Verified 10/28/24 13:41 Family History Mother Diabetes Sister Diabetes Father CVA (cerebral vascular accident) Myocardial infarction Surgical History H/O esophagogastroduodenoscopy No history of previous surgery Social History household members: spouse Smoking Status: Former smoker pack-years: 10 how long ago did patient quit smoking: Quit 05/2024, prior smoked ~ 1/2 ppd. second hand exposure: No alcohol intake: former substance use type: marijuana ROS ROS ED ROS Narrative Limited secondary to patient condition. Also obtained from . Constitutional: No fever, no chills. HEENT: No sore throat. No neck pain. No loss of vision. No rhinorrhea. Cardiovascular: No chest pain. No palpitations. No pedal edema. Respiratory: No cough, no shortness of breath. Abdominal: Positive diffuse abdominal pain. Multiple episodes of nausea and vomiting since last evening. No gross hematemesis. Genitourinary: No dysuria. No hematuria. Musculoskeletal: No myalgias. No arthralgias. Neurologic: No headaches. No dizziness. No lightheadedness. Skin: No rash. No change in color. Psychiatric: No depression. No anxiety. EXAM Physical Exam Narrative Exam Narrative: Afebrile. Vital signs noted. Nontoxic-appearing. Appears mildly uncomfortable, writhing on bed. Cardiovascular examination reveals a mild tachycardia at 112 bpm. Lungs are clear to auscultation bilaterally. Abdomen is soft with minimal diffuse tenderness to palpation, no rebound or guarding, no point tenderness. Hypoactive bowel sounds. Neurological examination shows him to be awake, alert, with a nonfocal neurological examination. Const Vital Signs: 10/28/24 13:41 10/28/24 15:41 10/28/24 16:39 Temperature 97.2 F L Temperature Source Temporal Pulse Rate 112 H 102 H 102 H Respiratory Rate 26 H 18 18 Blood Pressure 159/102 H 161/129 H 126/102 H Blood Pressure Mean 121 139 110 Pulse Ox 95 99 98 Oxygen Delivery Method Room Air Room Air Room Air MDM MDM MDM Narrative Medical decision making narrative: I reviewed the patient's prior records. He has been treated with Reglan in the past with Reglan for home use, as well as Ativan, morphine, Bentyl, and Toradol. Today, I do feel he probably needs IV fluids for his hyperglycemia as his glucose monitor was reading over 300. Differential diagnosis includes but not limited to gastroenteritis versus gastroparesis versus bowel obstruction versus diabetic ketoacidosis. EKG was obtained and interpreted by myself independently as sinus tachycardia at 109 bpm with ectopy or acute ST changes. No STEMI. Patient was bolused IV fluids. I reviewed his laboratory work and he has slight elevation of his white count at 13.6 which I think is nonspecific with hemoglobin 14.9 and hematocrit 45.6, platelet count elevated at 466 mature may be more of an acute phase reactant. In review of his CMP, the initial portion was hemolyzed. BMP was added instead and his sodium is low at 129 with potassium 4.4 and chloride 100. He will be bolused IV fluids CO2 low at 18 which may be secondary to hyperventilation as well normal anion gap of 11 and BUN elevated at 29 with creatinine of 1.3. This is consistent with mild dehydration. After Reglan, Ativan, and pantoprazole, he is resting comfortably. His abdomen remains soft. I do not feel he requires CT imaging. I feel he probably is having a bout of his gastroparesis. We will check his UA but I feel that diabetic ketoacidosis has been ruled out because he has negative ketones in his blood as well, and he has a normal anion gap. His blood sugar has come down into the 200s. As long as his urinalysis looks okay and he does not require antibiotics as an outpatient, he will be discharged to follow-up with his manager costing, Dr. Argueta. However, on review of his urinalysis he has 50-100 microscopic RBCs, but no evidence of infection. I do not feel antibiotics are indicated. He denies any flank pain, so I do not feel CT imaging is indicated. Repeat examination shows him resting comfortably and he feels improved. He has Reglan at home. He feels well enough to go home and follow-up with Dr. Argueta his manager costing as an outpatient. Patient and are agreeable to the plan. Return instructions reviewed. Disposition is discharged home in stable condition. History & Record Review Discussion w/independent historian: Patient and Family Lab Data Attestation: I reviewed the patient's lab results. Labs: Laboratory Results - last 24 hr 10/28/24 10/28/24 10/28/24 14:25 14:25 14:25 WBC 13.6 H RBC 5.19 Hgb 14.9 Hct 45.6 MCV 87.9 MCH 28.7 MCHC 32.7 RDW Std Deviation 43.4 RDW Coeff of [place] 13.5 Plt Count 466 H MPV 9.5 Immature Gran % (Auto) 0.500 Neut % (Auto) 71.9 H Lymph % (Auto) 19.1 [place] % (Auto) 7.7 Eos % (Auto) 0.3 Baso % (Auto) 0.5 Absolute Neuts (auto) 9.8 H Absolute Lymphs (auto) 2.59 Nucleated RBC % 0 Sodium 129 L Cancelled Potassium 4.4 Cancelled Chloride 100 Carbon Dioxide Anion Gap BUN Creatinine Estim Creat Clear Calc Est GFR (MDRD) Af Amer Est GFR (MDRD) Non-Af BUN/Creatinine Ratio Glucose Calcium Total Bilirubin AST ALT Alkaline Phosphatase Total Protein Albumin Globulin Albumin/Globulin Ratio Lipase Urine Color Urine Clarity Urine pH Ur Specific [place] Urine Protein Urine Glucose (UA) Urine Ketones Urine Occult Blood Urine Nitrite Urine Bilirubin Urine Urobilinogen Ur Leukocyte Esterase Urine RBC Urine WBC Ur Squamous Epith Cells Urine Bacteria Hyaline Casts Fine Granular Casts Urine Mucus Acetone Level POC Glucose 10/28/24 10/28/24 10/28/24 14:25 14:25 14:25 WBC RBC Hgb Hct MCV MCH MCHC RDW Std Deviation RDW Coeff of [place] Plt Count MPV Immature Gran % (Auto) Neut % (Auto) Lymph % (Auto) [place] % (Auto) Eos % (Auto) Baso % (Auto) Absolute Neuts (auto) Absolute Lymphs (auto) Nucleated RBC % Sodium Potassium Chloride Cancelled Carbon Dioxide 18.0 L Cancelled Anion Gap 11 Cancelled BUN 29 H Creatinine Estim Creat Clear Calc Est GFR (MDRD) Af Amer Est GFR (MDRD) Non-Af BUN/Creatinine Ratio Glucose Calcium Total Bilirubin AST ALT Alkaline Phosphatase Total Protein Albumin Globulin Albumin/Globulin Ratio Lipase Urine Color Urine Clarity Urine pH Ur Specific [place] Urine Protein Urine Glucose (UA) Urine Ketones Urine Occult Blood Urine Nitrite Urine Bilirubin Urine Urobilinogen Ur Leukocyte Esterase Urine RBC Urine WBC Ur Squamous Epith Cells Urine Bacteria Hyaline Casts Fine Granular Casts Urine Mucus Acetone Level POC Glucose 10/28/24 10/28/24 10/28/24 14:25 14:25 14:25 WBC RBC Hgb Hct MCV MCH MCHC RDW Std Deviation RDW Coeff of [place] Plt Count MPV Immature Gran % (Auto) Neut % (Auto) Lymph % (Auto) [place] % (Auto) Eos % (Auto) Baso % (Auto) Absolute Neuts (auto) Absolute Lymphs (auto) Nucleated RBC % Sodium Potassium Chloride Carbon Dioxide Anion Gap BUN Cancelled Creatinine 1.32 H Cancelled Estim Creat Clear Calc 67.80 Cancelled Est GFR (MDRD) Af Amer 78 Est GFR (MDRD) Non-Af BUN/Creatinine Ratio Glucose Calcium Total Bilirubin AST ALT Alkaline Phosphatase Total Protein Albumin Globulin Albumin/Globulin Ratio Lipase Urine Color Urine Clarity Urine pH Ur Specific [place] Urine Protein Urine Glucose (UA) Urine Ketones Urine Occult Blood Urine Nitrite Urine Bilirubin Urine Urobilinogen Ur Leukocyte Esterase Urine RBC Urine WBC Ur Squamous Epith Cells Urine Bacteria Hyaline Casts Fine Granular Casts Urine Mucus Acetone Level POC Glucose 10/28/24 10/28/24 10/28/24 14:25 14:25 14:25 WBC RBC Hgb Hct MCV MCH MCHC RDW Std Deviation RDW Coeff of [place] Plt Count MPV Immature Gran % (Auto) Neut % (Auto) Lymph % (Auto) [place] % (Auto) Eos % (Auto) Baso % (Auto) Absolute Neuts (auto) Absolute Lymphs (auto) Nucleated RBC % Sodium Potassium Chloride Carbon Dioxide Anion Gap BUN Creatinine Estim Creat Clear Calc Est GFR (MDRD) Af Amer Cancelled Est GFR (MDRD) Non-Af 64 Cancelled BUN/Creatinine Ratio 22.0 H Cancelled Glucose 282 H Calcium Total Bilirubin AST ALT Alkaline Phosphatase Total Protein Albumin Globulin Albumin/Globulin Ratio Lipase Urine Color Urine Clarity Urine pH Ur Specific [place] Urine Protein Urine Glucose (UA) Urine Ketones Urine Occult Blood Urine Nitrite Urine Bilirubin Urine Urobilinogen Ur Leukocyte Esterase Urine RBC Urine WBC Ur Squamous Epith Cells Urine Bacteria Hyaline Casts Fine Granular Casts Urine Mucus Acetone Level POC Glucose 10/28/24 10/28/24 10/28/24 14:25 14:25 14:25 WBC RBC Hgb Hct MCV MCH MCHC RDW Std Deviation RDW Coeff of [place] Plt Count MPV Immature Gran % (Auto) Neut % (Auto) Lymph % (Auto) [place] % (Auto) Eos % (Auto) Baso % (Auto) Absolute Neuts (auto) Absolute Lymphs (auto) Nucleated RBC % Sodium Potassium Chloride Carbon Dioxide Anion Gap BUN Creatinine Estim Creat Clear Calc Est GFR (MDRD) Af Amer Est GFR (MDRD) Non-Af BUN/Creatinine Ratio Glucose Cancelled Calcium 9.6 Cancelled Total Bilirubin 0.60 AST 68 H ALT 50 Alkaline Phosphatase 138 H Total Protein 9.3 H Albumin 4.1 Globulin 5.2 H Albumin/Globulin Ratio 0.8 L Lipase 25 Cancelled Urine Color Urine Clarity Urine pH Ur Specific [place] Urine Protein Urine Glucose (UA) Urine Ketones Urine Occult Blood Urine Nitrite Urine Bilirubin Urine Urobilinogen Ur Leukocyte Esterase Urine RBC Urine WBC Ur Squamous Epith Cells Urine Bacteria Hyaline Casts Fine Granular Casts Urine Mucus Acetone Level NEGATIVE POC Glucose 10/28/24 10/28/24 10/28/24 15:25 15:36 16:45 WBC RBC Hgb Hct MCV MCH MCHC RDW Std Deviation RDW Coeff of [place] Plt Count MPV Immature Gran % (Auto) Neut % (Auto) Lymph % (Auto) [place] % (Auto) Eos % (Auto) Baso % (Auto) Absolute Neuts (auto) Absolute Lymphs (auto) Nucleated RBC % Sodium Potassium Cancelled Chloride Carbon Dioxide Anion Gap BUN Creatinine Estim Creat Clear Calc Est GFR (MDRD) Af Amer Est GFR (MDRD) Non-Af BUN/Creatinine Ratio Glucose Calcium Total Bilirubin AST ALT Alkaline Phosphatase Total Protein Albumin Globulin Albumin/Globulin Ratio Lipase Urine Color Yellow Urine Clarity Sl. Cloudy Urine pH 5.0 Ur Specific [place] 1.025 Urine Protein 100 H Urine Glucose (UA) 1000 H Urine Ketones 150 A* Urine Occult Blood 50 H Urine Nitrite Negative Urine Bilirubin Negative Urine Urobilinogen Normal Ur Leukocyte Esterase Negative Urine RBC 50-100 SEEN Urine WBC 0 SEEN Ur Squamous Epith Cells 5-10 SEEN Urine Bacteria 1+ Hyaline Casts 10-25 SEEN Fine Granular Casts 0-5 SEEN Urine Mucus 3+ Acetone Level POC Glucose 274 H Discharge Plan Triage Chief Complaint: Abd Pain ED Provider: Ludin Sandesron Dx/Rx/DC Orders Clinical Impression: Gastroparesis, Nausea and vomiting, Microscopic hematuria Instructions: Gastroparesis, ED Hematuria, ED Vomiting (Adult) Prescriptions: No Action gabapentin 100 mg capsule 200 mg PO TID (DME) Omnipod 5 G6 Intro Kit (Gen 5) Cartridge See Rx Instructions .Route Qty: 1 0RF Rx Instructions: As directed (DME) Omnipod 5 G6 Pods (Gen 5) Cartridge See Rx Instructions .Route Qty: 10 5RF Rx Instructions: 1 pod q 3 days Please make sure that pods are G7 compatible pantoprazole 40 mg tablet,delayed release (DR/EC) 40 mg PO BID Qty: 60 2RF insulin lispro [Humalog KwikPen Insulin] 100 unit/mL insulin pen 6 unit subcut TID Patient Comments: PT STATES HE TAKES BEFORE MEALS, 3 units with snacks metoclopramide HCl [Reglan] 5 mg tablet 5 mg PO Q8H PRN PRN (Reason: nausea and vomiting) 7 Days Qty: 21 0RF insulin glargine-yfgn 100 unit/mL (3 mL) Insulin Pen 12 unit subcut QHS amitriptyline 25 mg Tablet 25 mg PO QHS Qty: 30 2RF insulin glargine-yfgn 100 unit/mL (3 mL) Insulin Pen 16 unit subcut QHS Qty: 0 0RF sucralfate 1 gram Tablet 1 g PO Q6H Qty: 120 1RF insulin lispro [Humalog U-100 Insulin] 100 unit/mL solution 50 unit continuous subcutaneous infusion .continuous Qty: 45 1RF Rx Instructions: Use subcutaneous insulin as you had been previously less otherwise instructed ([facility] [place] [place]) pen needle, diabetic [BD Ultra-Fine Lizzeth Pen Needle] 32 gauge x 5/32 needle See Rx Instructions .Route Qty: 100 5RF Rx Instructions: 4x/day lisinopril 20 mg tablet 20 mg PO DAILY Qty: 30 6RF ([facility] [place] [place]) Dexcom G7 Banking Analyst Misc See Rx Instructions .Route Qty: 1 0RF Rx Instructions: As directed ([facility] [place] [place]) Dexcom G6 Sensor Device See Rx Instructions .Route Qty: 9 1RF Rx Instructions: 1 sensor q 10 days ([facility] [place] [place]) Dexcom G6 Transmitter Device See Rx Instructions .Route Qty: 1 1RF Rx Instructions: 1 transmitter q 90 days dicyclomine 10 mg capsule 10 mg PO TID Qty: 90 0RF Primary Care Provider: Heena Barbosa Referrals: Jaycob Argueta DO [Med Staff - Active Staff] - 3-5 Days if not improving Heena Barbosa, INFORMATION ASSURANCE SPECIALIST-C [Primary Care Provider] - 1 Week Activity Restrictions/Additional Instructions: Follow-up with your primary care provider regarding your microscopic hematuria (blood in your urine). Continue your Reglan that you have at home. Follow-up with Dr. Argueta with gastroenterology as soon as possible. Return with new or worsening symptoms. Print Language: Kinyarwanda Disposition Disposition: Home, Self Care
[2024-10-28 14:39] LABS: Absolute Lymphocyte Count 2.59 X10^3/uL (0.83-4.51); Absolute Neutrophil Count 9.8 X10^3/uL (2.0-7.7); Basophil# 0.07 X10^3/uL; Basophil% 0.5 % (0-1); Eosinophil# 0.04 X10^3/uL; Eosinophils% 0.3 % (0-5); Hematocrit 45.6 % (40-54); Hemoglobin 14.9 g/dL (13.0-16.5); Lymphocyte # 2.59 X10^3/ul (0.83-4.51); Lymphocyte % 19.1 % (19-41); Mean Corp Hgb Conc 32.7 g/dL (32-36); Mean Corpuscular Hgb 28.7 pg (27.0-32.0); Mean Corpuscular Volume 87.9 fL (80-94); Mean Platelet Vol. 9.5 fl (6.2-12.0); Monocyte# 1.04 X10^3/uL; Monocyte% 7.7 % (0-10); NRBC Flagged by Analyzer 0 % (0-5); Neutrophil # 9.77 X10^3/uL (2.7-7.7); Neutrophil % 71.9 % (47-70); Platelet Count 466 K/mm3 (150-450); RBC Distribution Width CV 13.5 % (11.6-14.6); RBC Distribution Width SD 43.4 fl (35.1-43.9); Red Blood Count 5.19 M/mm3 (4.6-6.2); White Blood Count 13.6 K/mm3 (4.4-11.0)
[2024-10-28] MEDS: LORazepam 2 MG/ML Syringe 1 MG IV (15:35)
[2024-10-28] MEDS: Pantoprazole Sodium 40 MG in 0.9% Normal Saline (100mL MB+) 100 ML 330 MG IV (15:35)
[2024-10-28] MEDS: Metoclopramide 10 MG/2 ML Vial IV (15:35)
[2024-10-28] MEDS: 0.9% Normal Saline (1000mL) 1,000 ML 999 ML IV (15:36)
[2024-10-28 15:40] LABS: ALB/GLOB Ratio 0.8 RATIO (0.9-2.4); AST(SGOT) 68 U/L (15-37); Alanine Aminotransfer ALT/SGPT 50 U/L (16-61); Albumin, Serum 4.1 g/dL (3.2-5.0); Alkaline Phosphatase 138 U/L (45-117); Anion Gap 11 (5-15); BUN 29 mg/dL (7-18); Calcium,Total 9.6 mg/dL (8.5-10.1); Chloride 100 mmol/L (98-107); Creatinine, Serum 1.32 mg/dL (0.70-1.30); EST Glomerular Filtration Rate 64 mL/min (>60); Est Glom Filt Rate - Afr Amer 78 mL/min (>60); Globulin 5.2 g/dL (2.2-4.2); Glucose 282 mg/dL (74-106); Lipase 25 U/L (13-75); Potassium 4.4 mmol/L (3.5-5.1); Protein, Total 9.3 g/dL (6.4-8.2); Sodium Level 129 mmol/L (136-145)
[2024-10-28 15:41] VITALS: BP 161/129; PULSE 102; RESP 18; O2SAT 99
[2024-10-28 15:56] LABS: Bedside Glucose 274 mg/dL (74-106)
[2024-10-28 16:39] VITALS: BP 126/102; PULSE 102; RESP 18; O2SAT 98
[2024-10-28 16:54] LABS: White Blood Cells 0 SEEN /hpf (0-5)
[2024-10-28 16:55] LABS: Color, Urine Yellow (Yellow); Glucose, Dipstick 1000 mg/dl (Normal); Leukocyte Esterase-Dipstick Negative /ul (Negative); Nitrite-Dipstick Negative (Negative); Occult Blood-Urine 50 /ul (Negative); Protein-Dipstick 100 mg/dl (Negative); Specific Gravity, Urine 1.025 (1.002-1.030); Urine Bilirubin Dipstick Negative (Negative); Urine Clarity Sl. Cloudy (Clear); Urine Urobilinogen Normal (Normal)
[2024-10-28 17:02] LABS: Ketone-Dipstick 150 mg/dl (Negative)
[2024-10-28 17:04] LABS: Bacteria 1+ /hpf (None Seen); Fine Granular Cast- Urine 0-5 SEEN /lpf (0-5); Hyaline Cast 10-25 SEEN /lpf (0-5); Mucous, Urine 3+ /hpf (<or=2+); Red Blood Cells-Urine 50-100 SEEN /hpf (0-5); Squamous Epithelial Cells - UA 5-10 SEEN /hpf (0-5)
[2024-10-28] MEDS: Lisinopril 20 MG Tablet PO (17:34)
[2024-10-28 17:40] VITALS: BP 140/101; PULSE 102; RESP 18; TEMP 36.7; O2SAT 100
== END 2024-10-28 17:41 | disposition home or self-care (01) ==
PROVIDERS: Emergency Provider Emergency Medicine; PCP Nurse Practitioner Family; Visit Provider Emergency Medicine
DX: E11.43 Type 2 diabetes mellitus with diabetic autonomic (poly)neuropathy (principal); Z79.4 Long term (current) use of insulin; I10 Essential (primary) hypertension; R31.29 Other microscopic hematuria; Z87.891 Personal history of nicotine dependence; K31.84 Gastroparesis; K21.9 Gastro-esophageal reflux disease without esophagitis; Z79.899 Other long term (current) drug therapy; R94.31 Abnormal electrocardiogram [ECG] [EKG]
CPT/HCPCS: 80053; 81001; 82009; 82962; 83690; 85025; 93005; 96361; 96365; 96375; 99283; A4216

== ENCOUNTER 2025-02-06 17:09 | Emergency (ER) | payer MEDICARE, MEDICAID, SELFPAY ==
[2025-02-06 17:10] VITALS: BP 167/99; PULSE 94; RESP 16; TEMP 36.8; O2SAT 100; BMI 28.1
--- NOTE | 2025-02-06 18:19 | EX.ED.DYSGE1 ---
HPI History of Present Illness Chief Complaint: Other, Pain/Inj Narrative Narrative: 39-year-old male past medical history of diabetes presents with left-sided cheek/facial swelling and left-sided jaw pain that he has had for the last 2 days. He states that he has been to the dentist previously and they were supposed to extract 2 of his teeth in his left lower jaw but have not done so. He tried to call them wanting antibiotics for the swelling that he noticed 2 days ago, but no one has called him back. He might of felt feverish a few days ago, but complains of swelling of his left cheek and pain in his left lower jaw. No difficulty breathing, no difficulty swallowing currently. This is never happened to him before/previously. He quit smoking cigarettes about a month ago. [facility] Medical History Gastroparesis Former tobacco use Cannabis use disorder Hypertension Schizophrenia Anxiety Depression Migraines Type 2 diabetes mellitus with hyperglycemia Schizo-affective schizophrenia Bipolar 1 disorder Diabetes mellitus Home Medications ?Medication ?Instructions ?Recorded ?Last Taken ?Type pen needle, diabetic 32 gauge x #100 ea 03/29/24 Unknown Rx (BD Ultra-Fine Lizzeth Pen Needle) lisinopril 20 mg tablet 20 mg PO DAILY bp #30 tabs 05/01/24 Unknown Rx gabapentin 100 mg capsule 200 mg PO TID pain 06/06/24 Unknown History insulin pump cartridge,automated #1 ea 07/05/24 Unknown Rx dose,BT with controller subcutaneous (Omnipod 5 G6 Intro Kit (Gen 5) subcutaneous cartridge with controller) pantoprazole 40 mg tablet,delayed 40 mg PO BID #60 tabs 08/15/24 Unknown Rx release blood-glucose sensor (Dexcom G7 #3 ea 11/22/24 Unknown Rx Sensor device) insulin lispro 100 unit/mL 50 unit (0.5 mL) continuous 11/22/24 Unknown Rx subcutaneous solution (Humalog subcutaneous infusion .continuous U-100 Insulin) #45 mL metoclopramide HCl 5 mg tablet 5 mg PO Q8H PRN PRN nausea and 12/06/24 Unknown Rx (Reglan) vomiting #90 tabs amitriptyline 25 mg tablet 25 mg PO QHS #30 tabs 01/17/25 Unknown Rx insulin pump cart,auto,BT,G6/7 #10 ea 01/17/25 Unknown Rx (Omnipod 5 G6-G7 Pods (Gen 5) subcutaneous cartridge) buspirone 10 mg tablet 10 mg PO BID 01/18/25 Unknown History dextroamphetamine-amphetamine 5 mg 1 tab PO BID 01/18/25 Unknown History tablet rosuvastatin 5 mg tablet 5 mg PO QHS 01/18/25 Unknown History ziprasidone HCl 40 mg capsule 40 mg PO BID 01/18/25 Unknown History sucralfate 1 gram tablet 1 g PO Q6 #120 TABLETS 01/31/25 Unknown Rx dicyclomine 10 mg capsule 10 mg PO TID for abdominal pain 02/02/25 Unknown Rx #90 caps clindamycin HCl 300 mg capsule 300 mg PO Q6H #40 CAPSULES 02/06/25 Unknown Rx (Cleocin HCl) Allergy/AdvReac Type Severity Reaction Status Date / Time No Known Allergies Allergy Verified 02/06/25 17:11 Family History Mother Diabetes Sister Diabetes Father CVA (cerebral vascular accident) Myocardial infarction Surgical History H/O esophagogastroduodenoscopy No history of previous surgery Social History household members: spouse Smoking Status: Former smoker pack-years: 10 how long ago did patient quit smoking: Quit 05/2024, prior smoked ~ 1/2 ppd. second hand exposure: No alcohol intake: former substance use type: marijuana ROS ROS ED ROS Narrative Review of systems positive for subjective fever 2 days ago, left cheek swelling/facial swelling, and left jaw pain secondary to dental caries. No difficulty swallowing, no difficulty breathing. No exacerbating or alleviating factors. EXAM Physical Exam Narrative Exam Narrative: Afebrile. Vital signs noted. Nontoxic-appearing. Cardiovascular examination reveals a regular rate and rhythm. Lungs are clear to auscultation bilaterally. Abdomen soft and nontender. Dental inspection does show dental caries eroded down to the gumline of the bottom left first and second molars. No drooling or trismus. No angioedema of the tongue. No Wilbert angina. Airway is patent. No drooling or trismus. There is induration of the left cheek more in the lower jaw portion, but no noted fluctuance. Const Vital Signs: 02/06/25 17:10 Temperature 98.3 F Temperature Source Oral Pulse Rate 94 Respiratory Rate 16 Blood Pressure 167/99 H Blood Pressure Mean 121 Pulse Ox 100 Oxygen Delivery Method Room Air MDM MDM MDM Narrative Medical decision making narrative: Differential diagnosis includes but not limited to dental abscess with facial cellulitis and swelling versus Wilbert angina versus retropharyngeal abscess. I have very low suspicion for the latter 2 diagnoses based on his clinical examination. I do not feel laboratory work or imaging is indicated currently. Pulse ox is 100% on room air without evidence of hypoxia and there is no stridor on examination so I do not feel that there is any airway compromise. Continuation of smoking cessation was discussed. He was given his first dose of clindamycin here in the emergency department and prescription written for 300 mg to take 4 times a day for the next 10 days. He will follow-up with a dentist. He will continue [id number] analgesics. Return instructions to the emergency department were reviewed. Disposition is discharged home in stable condition. Discharge Plan Triage Chief Complaint: Other, Pain/Inj ED Provider: Ludin Sanderson Dx/Rx/DC Orders Clinical Impression: Dental abscess, Left facial swelling Instructions: ED Dental Abscess, ED Dental Abscess Facial Cellulitis Prescriptions: New clindamycin HCl [Cleocin HCl] 300 mg capsule 300 mg PO Q6H Qty: 40 0RF No Action gabapentin 100 mg capsule 200 mg PO TID (DME) Omnipod 5 G6 Intro Kit (Gen 5) Cartridge See Rx Instructions .Route Qty: 1 0RF Rx Instructions: As directed insulin lispro [Humalog U-100 Insulin] 100 unit/mL solution 50 unit continuous subcutaneous infusion .continuous Qty: 45 1RF Rx Instructions: Use subcutaneous insulin as you had been previously less otherwise instructed (DME) Dexcom G7 Sensor Device See Rx Instructions .Route Qty: 3 5RF Rx Instructions: 1 sensor q 10 days pantoprazole 40 mg tablet,delayed release (DR/EC) 40 mg PO BID Qty: 60 2RF buspirone 10 mg tablet 10 mg PO BID ziprasidone HCl 40 mg capsule 40 mg PO BID dextroamphetamine-amphetamine 5 mg tablet 1 tab PO BID rosuvastatin 5 mg tablet 5 mg PO QHS (DME) pen needle, diabetic [BD Ultra-Fine Lizzeth Pen Needle] 32 gauge x 5/32 needle See Rx Instructions .Route Qty: 100 5RF Rx Instructions: 4x/day lisinopril 20 mg tablet 20 mg PO DAILY Qty: 30 6RF metoclopramide HCl [Reglan] 5 mg tablet 5 mg PO Q8H PRN PRN (Reason: nausea and vomiting) Qty: 90 2RF (DME) Omnipod 5 G6-G7 Pods (Gen 5) Cartridge See Rx Instructions .Route Qty: 10 5RF Rx Instructions: 1 pod q 3 days amitriptyline 25 mg tablet 25 mg PO QHS Qty: 30 2RF sucralfate 1 gram tablet 1 g PO Q6 Qty: 120 0RF dicyclomine 10 mg capsule 10 mg PO TID Qty: 90 0RF Primary Care Provider: Heena Barbosa Referrals: Heena Barbosa, BELL ATTENDANT-C [Primary Care Provider] - Activity Restrictions/Additional Instructions: Continue to not smoke cigarettes. Follow-up with a dentist as soon as possible. Take the antibiotics as directed. Return with difficulty swallowing or breathing, sustained high fever, new or worsening symptoms. Print Language: Amharic Disposition Disposition: Home, Self Care
[2025-02-06] MEDS: Clindamycin HCl 150 MG Capsule 300 MG PO (18:37)
== END 2025-02-06 18:42 | disposition home or self-care (01) ==
LOC: ED 18:32
PROVIDERS: Emergency Provider Emergency Medicine; PCP Nurse Practitioner Family; Visit Provider Emergency Medicine
DX: K04.7 Periapical abscess without sinus (principal); E11.43 Type 2 diabetes mellitus with diabetic autonomic (poly)neuropathy; Z79.4 Long term (current) use of insulin; K02.9 Dental caries, unspecified; R68.84 Jaw pain; K31.84 Gastroparesis; I10 Essential (primary) hypertension; Z79.899 Other long term (current) drug therapy; Z87.891 Personal history of nicotine dependence
CPT/HCPCS: 99283

== ENCOUNTER 2025-06-12 20:17 | Emergency (ER) | payer MEDICARE, MEDICAID, SELFPAY ==
[2025-06-12 20:18] VITALS: BP 167/115; PULSE 109; RESP 22; TEMP 36.1; O2SAT 100; BMI 26.6
--- NOTE | 2025-06-12 20:49 | CT_ITS ---
PROCEDURE: ABDOMEN/PELVIS W IV CONT ONLY 06/12/2025 REASON FOR EXAM: ABDOMINAL PAIN TECHNIQUE: ABDOMEN/PELVIS W IV CONT ONLY Coronal and Sagittal reconstruction series were provided. CONTRAST: Isovue 370 VOLUME: 99 mL One or more dose reduction techniques were used (e.g., Automated exposure control, adjustment of the mA and/or kV according to patient size, use of iterative reconstruction technique. RADIATION DOSE SUMMARY: CTDlvol: 22 mGy DLP: 572 mGycm COMPARISON: 07/28/24 FINDINGS: Clear lung bases. Normal heart size. Unremarkable gallbladder. Upper abdominal solid organs show no acute findings. No hydronephrosis or ureteral stone. Possible bladder wall hypertrophy. Normal prostate. No retroperitoneal or pelvic adenopathy. No free air. Nonobstructed bowel. Normal appendix. No acute large bowel findings. No acute abdominal wall findings. CT/Abdomen/Pelvis W IV Cont ONLY IMPRESSION: No acute findings Reading Location: [place] [id number]
[2025-06-12] MEDS: 0.9% Normal Saline (1000mL) 1,000 ML 999 ML IV (20:56)
--- NOTE | 2025-06-12 20:57 | EDS_ITS ---
HPI History of Present Illness Chief Complaint: Abd Pain Narrative Narrative: Chief complaint and HPI: 39-year-old female with DM, paraparesis, GERD, bipolar disorder presents for evaluation of abdominal pain with nausea and vomiting. Patient follows with Dr. Argueta. Patient states that he developed abdominal pain today. Associated symptoms are nausea and vomiting. He denies any fever, chills, shortness of breath, chest pain, diarrhea, constipation, dysuria. States it feels different than his gastroparesis pain. Last smoked marijuana 4 days ago. Review of systems: See HPI Medications: As listed on the chart Allergies: As listed on the chart PFSH: Per chart Vital signs: As listed on the chart. Reviewed. Physical exam: Gen: A&O x3 Head: Normocephalic, atraumatic Eyes: No sclera icterus, conjunctiva clear ENT: Moist mucous membranes Neck: Trachea midline, No JVD CV: Tachycardic, regular rhythm, no murmurs, no peripheral edema Resp: Lungs CTA BL, no w/r/c GI: Abd soft, non-distended, mildly tender to palpation diffusely, no r/r/g : No CVA tenderness Musc: Full ROM, no deformity Skin: Warm, dry Neuro: Alert, oriented, grossly intact, sensation intact Psych: Cooperative, appropriate mood and affect [facility] Medical History Gastroparesis Former tobacco use Cannabis use disorder Hypertension Schizophrenia Anxiety Depression Migraines Type 2 diabetes mellitus with hyperglycemia Schizo-affective schizophrenia Bipolar 1 disorder Diabetes mellitus Home Medications ?Medication ?Instructions ?Recorded ?Last Taken ?Type pen needle, diabetic 32 gauge x #100 ea 03/29/24 Unkno wn Rx (BD Ultra-Fine Lizzeth Pen Needle) lisinopril 20 mg tablet 20 mg PO DAILY bp #30 tabs 0 05/01/24 Unknown Rx gabapentin 100 mg capsule 200 mg PO TID pain 06/06/24 Unknown History insulin pump cartridge,automated #1 ea 07/05/24 Unknow n Rx dose,BT with controller subcutaneous (Omnipod 5 G6 Intro Kit (Gen 5) subcutaneous cartridge with controller) pantoprazole 40 mg tablet,delayed 40 mg PO BID #60 tab s 08/15/24 Unknown Rx release insulin lispro 100 unit/mL 50 unit (0.5 mL) continuous 11/22/24 Unknown Rx subcutaneous solution (Humalog subcutaneous infusion . continuous U-100 Insulin) #45 mL buspirone 10 mg tablet 10 mg PO BID 01/18/25 Unknow n History rosuvastatin 5 mg tablet 5 mg PO QHS 01/18/25 Unknown History metoclopramide HCl 5 mg tablet 5 mg PO Q8H PRN PRN kevyn sea and 02/22/25 Unknown Rx (Reglan) vomiting #90 tabs amitriptyline 50 mg tablet 50 mg PO QHS 04/19/25 Unkno wn History blood-glucose sensor (Dexcom G7 #3 ea 04/19/25 Unknown Rx Sensor device) dextroamphetamine-amphetamine 10 1 tab PO BID 04/19/25 Unknown History mg tablet insulin pump cart,auto,BT,G6/7 #10 ea 04/19/25 Unknown Rx (Omnipod 5 G6-G7 Pods (Gen 5) subcutaneous cartridge) ziprasidone HCl 20 mg capsule 20 mg PO BID 04/19/25 Un known History sucralfate 1 gram tablet 1 g PO Q6H #120 TABLETS 05/08 05/02 Unknown Rx dicyclomine 10 mg capsule 10 mg PO TID for abdominal p ain 06/01/25 Unknown Rx #90 caps Allergy/AdvReac Type Severity Reaction Status Date / Time No Known Allergies Allergy Verified 06/12/25 20:18 Family History Mother Diabetes Sister Diabetes Father CVA (cerebral vascular accident) Myocardial infarction Surgical History H/O esophagogastroduodenoscopy No history of previous surgery Social History household members: spouse Smoking Status: Current some day smoker tobacco type: cigarettes how long ago did patient quit smoking: Quit 05/2024, prior smoked ~ 1/2 ppd. second hand exposure: No alcohol intake: former substance use type: marijuana EXAM Physical Exam Const Vital Signs: 06/12/25 20:18 06/12/25 22:14 06/12/25 22:16 Temperature 96.9 F L 97.8 F Temperature Source Temporal Oral Pulse Rate 109 H 109 H 109 H Respiratory Rate 22 H 18 Blood Pressure 167/115 H 161/89 H 161/89 H Blood Pressure Mean 132 113 113 Pulse Ox 100 100 100 Oxygen Delivery Method Room Air Room Air Nasal Cannula MDM MDM MDM Narrative Medical decision making narrative: 39-year-old female with DM, paraparesis, GERD, bipolar disorder presents for evaluation of abdominal pain with nausea and vomiting. Patient follows with Dr. Argueta. Patient states that he developed abdominal pain today. Associated symptoms are nausea and vomiting. States this feels different than his gastroparesis. Differential diagnosis includes but is not limited to gastroparesis, gastritis, colitis, appendicitis, biliary disease, DKA, UTI, electrolyte abnormality, cyclic vomiting from marijuana abuse. NS bolus, morphine, Zofran ordered. Laboratory workup ordered including CT abdomen and pelvis. VBG without acidosis. CBC with mild leukocytosis of 15.9. No anemia. Platelets unremarkable. CMP shows dehydration without ODNNA. Patient has an anion gap of 17. I do think that the anion gap is secondary to dehydration than his diabetes. His glucose is 284. Lactic 2.9. Another NS bolus ordered for total of 2 L and will repeat BMP and lactic acid. No hyperbilirubinemia. AST mildly elevated at 40 however this has been seen on previous labs. ALT unremarkable. Lipase unremarkable. Hydroxybutyrate mildly elevated at 0.6. UA positive for glucose and mild ketones. Negative for UTI. Again I do think that patient's laboratory findings are secondary to dehydration. Urine drug screen positive for opiates but patient did receive morphine. Cannabis. CT abdomen pelvis shows no acute intra-abdominal pathology. On reevaluation patient states his pain is gone. Suspect his abdominal pain was secondary to his nausea and vomiting from his gastroparesis. Patient still receiving his fluids. Will repeat lactic and BMP after his fluids. If patient has improvement in his labs, plan will be to discharge home and follow-up with primary care physician. Continue his own antiemetics. Patient signed out to oncoming physician who will await repeat labs. Impression: 1. Nausea and vomiting with history of gastroparesis 2. Abdominal pain, resolved 3. Dehydration 4. Hyperglycemia with history of diabetes Lab Data Labs: Laboratory Results - last 24 hr 06/12/25 06/12/25 20:30 22:00 WBC 15.9 H RBC 4.80 Hgb 13.9 Hct 41.6 MCV 86.7 MCH 29.0 MCHC 33.4 RDW Std Deviation 41.5 RDW Coeff of [place] 13.2 Plt Count 321 MPV 11.1 Immature Gran % (Auto) 0.600 Neut % (Auto) 82.2 H Lymph % (Auto) 11.8 L [place] % (Auto) 4.6 Eos % (Auto) 0.3 Baso % (Auto) 0.5 Absolute Neuts (auto) 13.1 H Absolute Lymphs (auto) 1.87 Nucleated RBC % 0 Sodium 132 L Potassium 5.0 Chloride 95 L Carbon Dioxide 20.6 L Anion Gap 17 H BUN 26 H Creatinine 1.10 Estim Creat Clear Calc 81.36 Est GFR (MDRD) Non-Af 88 BUN/Creatinine Ratio 23.2 H Glucose 284 H Lactic Acid 2.9 H* Calcium 10.2 Total Bilirubin 0.30 Direct Bilirubin < 0.08 AST 40 H ALT 18 Alkaline Phosphatase 149 H Total Protein 9.4 H Albumin 4.7 Globulin 4.6 H Lipase 23 b-Hydroxybutyric mmol/L 0.6 H Urine Color Straw Urine Clarity Clear Urine pH 7.0 Ur Specific [place] 1.010 Urine Protein 100 H Urine Glucose (UA) 1000 H Urine Ketones 50 H Urine Occult Blood 150 H Urine Nitrite Negative Urine Bilirubin Negative Urine Urobilinogen Normal Ur Leukocyte Esterase Negative Urine RBC 0-5 SEEN Urine WBC 0-5 SEEN Ur Squamous Epith Cells 0 SEEN Urine Bacteria 0 SEEN Hyaline Casts 0-5 SEEN Urine Mucus 0 SEEN Urine Opiates Screen PRESUMPTIVE POSITIVE U Buprenorphine Qual NEGATIVE Ur Oxycodone Screen NEGATIVE Urine Methadone Screen NEGATIVE Urine Fentanyl Screen NEGATIVE Ur Barbiturates Screen NEGATIVE Ur Phencyclidine Scrn NEGATIVE Ur Amphetamines Screen NEGATIVE U Benzodiazepines Scrn NEGATIVE Urine Cocaine Screen NEGATIVE U Cannabinoids Screen PRESUMPTIVE POSITIVE ABG Data ABG results: ABG 06/12/25 21:12 Specimen Type JODIE Sample Site Not entered VBG pH 7.56 H VBG pO2 39 VBG HCO3 23 VBG Total CO2 24 VBG O2 Sat (Calc) 82 H VBG Base Excess 1 POC Mix VBG pCO2 Pt Tmp 26.0 L O2 Delivery Device Room Air Radiography Diagnostic Testing: Clinical Impression(s) from Imaging Studies Abdomen/Pelvis CT 06/12/25 20:49 IMPRESSION: No acute findings Reading Location: [place] [id number] Discharge Plan Triage Chief Complaint: Abd Pain ED Provider: August Carroll Dx/Rx/DC Orders Prescriptions: No Action gabapentin 100 mg capsule 200 mg PO TID (DME) Omnipod 5 G6 Intro Kit (Gen 5) Cartridge See Rx Instructions .Route Qty: 1 0RF Rx Instructions: As directed insulin lispro [Humalog U-100 Insulin] 100 unit/mL solution 50 unit continuous subcutaneous infusion .continuous Qty: 45 1RF Rx Instructions: Use subcutaneous insulin as you had been previously less otherwise instructed pantoprazole 40 mg tablet,delayed release (DR/EC) 40 mg PO BID Qty: 60 2RF buspirone 10 mg tablet 10 mg PO BID rosuvastatin 5 mg tablet 5 mg PO QHS dextroamphetamine-amphetamine 10 mg tablet 1 tab PO BID amitriptyline 50 mg tablet 50 mg PO QHS ziprasidone HCl 20 mg capsule 20 mg PO BID (DME) Omnipod 5 G6-G7 Pods (Gen 5) Cartridge See Rx Instructions .Route Qty: 10 5RF Rx Instructions: 1 pod q 72 hours (DME) Dexcom G7 Sensor Device See Rx Instructions .Route Qty: 3 5RF Rx Instructions: 1 sensor q 10 days (DME) pen needle, diabetic [BD Ultra-Fine Lizzeth Pen Needle] 32 gauge x 5/32 needle See Rx Instructions .Route Qty: 100 5RF Rx Instructions: 4x/day lisinopril 20 mg tablet 20 mg PO DAILY Qty: 30 6RF metoclopramide HCl [Reglan] 5 mg tablet 5 mg PO Q8H PRN PRN (Reason: nausea and vomiting) Qty: 90 2RF sucralfate 1 gram tablet 1 g PO Q6H Qty: 120 3RF dicyclomine 10 mg capsule 10 mg PO TID Qty: 90 0RF Primary Care Provider: Heena Barbosa Referrals: Heena Barbosa, [facility] [Primary Care Provider] - Print Language: Lao
--- OUTSIDE RECORDS SUMMARY | 2025-06-12 21:04 | XMS RPT_ITS | CCD ---
Author Organization [facility] Care Team Providers Care Senior Systems Architect Name Role Phone Chelsey MEDICATION AIDE.[place] PULIDO Primary Care Provider PHYSICIAN, NONE Primary Care Physician Unavailab marianne Camarena CARBURETOR REBUILDER-C [place] Primary Care Provider Dr. Connie Hermosillo Emergency Provider Dr. Troy Wagoner Admit Provider Dr. Troy Wagoner Other Provider Dr. Shantell Alcaraz Attending Provider Dr. Shantell Alcaraz Other Provider Ellie, Dr. Devries Attending Provider [phone] Chelsey MEDICATION AIDE.[place] PULIDO Primary Care Provider SARAVANAN SANCHEZ MD Attending Unavailable PHYSICIAN, NONE Primary Care Unavailable JESSICA KILLIAN DO Attending Unavailable PHYSICIAN, NONE Primary Care Unavailable PHYSICIAN, NONE Primary Care Unavailable SARAVANAN SANCHEZ MD Attending Unavailable BROOKLYN BOSTON DO Attending Unavailable PHYSICIAN, NONE Primary Care Unavailable Chelsey CARBURETOR REBUILDER-C, [place] Primary Care Provider Ludin Sanderson MD Attending Provider Ludin Sanderson MD Emergency Provider Christian DIAS-Queenie Marshall Attending Provider Chelsey CARBURETOR REBUILDER-CAustin Referring Provider Chelsey CARBURETOR REBUILDER-C, [place] Primary Care Provider Chelsey CARBURETOR REBUILDER-C, [place] Referring Provider Christian DIAS-Queenie Marshall Attending Provider Ludin Sanderson MD Attending Provider Ludin Sanderson MD Emergency Provider [phone] Mushtaq Hernandez MD Attending Provider [phone] Friend DODr. Devries Attending Provider KNOBLE, [place] Attending Unavailable KNOBLE, [place] Primary Care Unavailable KNOBLE, [place] Attending Unavailable KNOBLE, [place] Primary Care Unavailable KNOBLE, [place] Primary Care Unavailable PRAKASH FONTANA Attending Unavailable KNOBLE, [place] Primary Care Unavailable KNOBLE, [place] Attending Unavailable KNOBLE, [place] Primary Care Unavailable KNOBLE, [place] Attending Unavailable KNOBLE, [place] Primary Care Unavailable KNOBLE, [place] Attending Unavailable KNOBLE, [place] Primary Care Unavailable KNOBLE, [place] Referring Unavailable KNOBLE, [place] Primary Care Unavailable PRAKASH FONTANA Attending Unavailable KNOBLE, [place] Primary Care Unavailable KNOBLE, [place] Primary Care Unavailable KNOBLE, [place] Attending Unavailable KNOBLE, [place] Primary Care Unavailable KNOBLE, [place] Referring Unavailable KNOBLE, [place] Primary Care Unavailable KNOBLE, [place] Referring Unavailable KNOBLE, [place] Primary Care Unavailable Knoble CARBURETOR REBUILDER-C, [place] Primary Care Provider [phone] Chelsey CARBURETOR REBUILDER-C, [place] Referring Provider [phone] Christian CARBURETOR REBUILDER-CQueenie Attending Provider Mushtaq Hernandez Attending Unavailable Knoble, [place] Referring Unavailable Knoble, [place] Primary Care Unavailable Knoble, [place] Referring Unavailable Jaycob Argueta Attending Unavailable Knoble, [place] Primary Care Unavailable Knoble, [place] Referring Unavailable Queenie Gonzales Attending Unavailable Petar, Victoria Referring Unavailable Knoble, [place] Primary Care Unavailable White, Brenda L Consulting Unavailable White Brenda L Admitting Unavailable Jaycob Argueta Attending Unavailable Troy Wagoner Consulting Unavailable Petar, Victoria Consulting Unavailable Knoble, [place] Primary Care Unavailable Knoble, [place] Referring Unavailable Queenie Gonzales Attending Unavailable Knoble, [place] Referring Unavailable Knoble, [place] Primary Care Unavailable Queenie Gonzales Attending Unavailable Knoble, [place] Primary Care Unavailable White, Brenda L Referring Unavailable Jaycob Argueta Attending Unavailable Knoble, [place] Primary Care Unavailable FriendJaycob Attending Unavailable Knoble, [place] Primary Care Unavailable White, Brenda L Attending Unavailable Petar, Victoria Attending Unavailable Mushtaq Hernandez Attending Unavailable Knoble, [place] Referring Unavailable Knoble, [place] Primary Care Unavailable Susi Wilhelm Attending Unavailable Knoble, [place] Referring Unavailable Knoble, [place] Primary Care Unavailable Knoble, [place] Referring Unavailable Knoble, [place] Primary Care Unavailable Queenie Gonzales Attending Unavailable Knoble, [place] Referring Unavailable Knoble, [place] Primary Care Unavailable Jaycob Argueta Attending Unavailable Ludin Sanderson Attending Unavailable Knoble, [place] Primary Care Unavailable Knoble, [place] Primary Care Unavailable Jose R Osorio Attending Unavailable Ludin Sanderson Attending Unavailable Knoble, [place] Primary Care Unavailable Victoria Davey Attending Unavailable Nicoletteoble, [place] Primary Care Unavailable Brenda Hollins Consulting Unavailable Brenda Hollins Admitting Unavailable Troy Wagoner Consulting Unavailable Medications Current Medications Medication Drug Class(es) Dates Sig (Normalized) Sig (Original) amitriptyline hydrochloride 50 mg oral tablet (20 sources) Tricyclic Antidepressant Start: 04-19-2025 take 1 tablet by mouth at bedtime Amitriptyline 50 mg tablet Active 50 mg PO AT BEDTIME April 19, 2025 12:00am Start: 08-01-2024 End: 04-19-2025 take 1 tablet by mouth at bedtime Amitriptyline 25 mg tablet Discontinued 25 mg PO AT BEDTIME 30 2 April 09, 2025 9:42am April 19, 2025 1:19pm amoxicillin 875 mg oral tablet (2 sources) Penicillin-class Antibacterial Start: 04-30-2025 End: 05-05-2025 take 1 tablet by mouth twice daily amoxicillin (AMOXIL) 875 mg tablet Indications: Dental infection Take 1 tablet by mouth two times a day for 5 days. 10 tablet 04/30/2025 05/05/2025 Active amphetamine aspartate 2.5 mg / amphetamine sulfate 2.5 mg / dextroamphetamine saccharate 2.5 mg / dextroamphetamine sulfate 2.5 mg oral tablet (19 sources) Central Nervous System Stimulant Start: 04-19-2025 Dextroamphetamin e-Amphetamine 10 mg tablet Active 1 {tbl} PO TWICE A DAY 0 April 19, 2025 12:00am Start: 01-18-2025 End: 04-19-2025 Dextroamphetamine-Amphetamin e 5 mg tablet Discontinued 1 {tbl} PO TWICE A DAY 0 January 18, 2025 12:00am April 19, 2025 1:19pm take 1 tablet by moises th twice daily dextroamphetamine-amphetamine (ADDERALL) 10 mg tablet Take 10 mg by mouth two times a day. 0 Active benztropine mesylate 1 mg oral tablet (2 sources) Anticholinergic, Antihistamine Start: 02-05-2018 Cogentin Dose : 1 mg = 1 tab(s), Oral, BID, 0 Refill(s) Start Date: 02/05/18 Status: Ordered Blood Glucose Control, Normal soln (1 source) Start: 10-22-2023 End: 10-23-2023 Blood Glucose Control, Normal soln Indications: Type 2 diabetes mellitus without complication, without long-term current use of insulin (HCC) Use weekly 1 Each 0 10/22/2023 10/23/2023 Active Comment on above: Use weekly Blood-Glucose Meter (1 source) Start: 10-22-2023 End: 10-23-2023 Blood-Glucose Meter Indications: Type 2 diabetes mellitus without complication, without long-term current use of insulin (HCC) Test One time a day. Insulin Dep? No E11.9 DM 2 1 Each 0 10/22/2023 10/23/2023 Active Comment on above: Test One time a day. Insulin Dep? 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 1 Each 01/26/2025 01/27/2025 Active Blood-Glucose Meter,Continuous (DEXCOM G7 RESERVES CLERK) misc (1 source) Start: 10-22-2023 End: 10-22-2023 Blood-Glucose Meter,Continuous (DEXCOM G7 RESERVES CLERK) misc 1 Each one time only for 1 dose. 1 Each 5 10/22/2023 10/22/2023 Active Comment on above: 1 Each one time only for 1 dose. Blood-Glucose Sensor (DEXCOM G7 SENSOR) gilmar (1 source) Start: 10-22-2023 End: 10-22-2023 Blood-Glucose Sensor (DEXCOM G7 SENSOR) gilmar 1 Each one time only for 1 dose. 5 Each 2 10/22/2023 10/22/2023 Active Comment on above: 1 Each one time only for 1 dose. Blood-Glucose Sensor (Dexcom G7 Sensor) device (20 sources) Start: 04-19-2025 Blood-Glucose Sensor (Dexcom G7 Sensor) device Active 0 .Route 3 April 19, 2025 1:31pm Type 1 diabetes mellitus Type 1 diabetes mellitus without complications 1 sensor q 10 days Start: 04-19-2025 Blood-Glucose Sensor (Dexcom G7 Sensor) device Active 0 .Route April 19, 2025 1:31pm 1 sensor q 10 days Start: 11-22-2024 End: 04-19-2025 Blood-Glucose Sensor (Dexcom G7 Sensor) device Discontinued 0 .Route 3 November 22, 2024 1:00am April 19, 2025 1:31pm Type 1 diabetes mellitus Type 1 diabetes mellitus without complications 1 sensor q 10 days Start: 11-22-2024 End: 04-19-2025 Blood-Glucose Sensor (Dexcom G7 Sensor) device Discontinued 0 .Route November 22, 2024 1:00am April 19, 2025 1:31pm 1 sensor q 10 days Start: 11-22-2024 Blood-Glucose Sensor (Dexcom G7 Sensor) device Active 0 .Route November 22, 2024 1:00am 1 sensor q 10 days Start: 07-16-2024 End: 07-27-2024 Blood-Glucose Sensor (Dexcom G7 Sensor) device Discontinued 0 .Route 3 July 16, 2024 6:23pm July 27, 2024 8:04am Diabetes mellitus Type 1 diabetes mellitus with hyperglycemia 1 sensor q 10 days Start: 07-16-2024 End: 07-27-2024 Blood-Glucose Sensor (Dexcom G7 Sensor) device Discontinued 0 .Route July 16, 2024 6:23pm July 27, 2024 8:04am 1 sensor q 10 days Start: 04-06-2024 End: 07-16-2024 Blood-Glucose Sensor (Dexcom G7 Sensor) device Discontinued 0 .Route 3 April 06, 2024 12:00am July 16, 2024 6:23pm Diabetes mellitus Type 1 diabetes mellitus with hyperglycemia 1 sensor q 10 days Start: 04-06-2024 End: 07-16-2024 Blood-Glucose Sensor (Dexcom G7 Sensor) device Discontinued 0 .Route 3 April 06, 2024 12:00am July 16, 2024 6:23pm 1 sensor q 10 days busPIRone hydrochloride 10 mg oral tablet (14 sources) Start: 01-18-2025 take 1 tablet by mouth twice daily Buspirone 10 mg tablet Active 10 mg PO TWICE A DAY January 18, 2025 12:00am take 1 tablet by mouth three gus es daily busPIRone (BUSPAR) 10 mg tablet Take 10 mg by mouth three times a day. Active dicyclomine hydrochloride 10 mg oral capsule (20 sources) Anticholinergic Start: 02-02-2025 End: 06-01-2025 take 1 capsule by mouth three times daily for pain Dicyclomine 10 mg capsule Active 10 mg PO THREE TIMES A DAY 90 0 June 01, 2025 7:41am for abdominal pain Start: 01-31-2025 End: 02-02-2025 take 1 capsule by mouth three times daily for pain Dicyclomine 10 mg capsule Discontinued 10 mg PO THREE TIMES A DAY 90 0 January 31, 2025 6:53am February 02, 2025 6:30am for abdominal pain Start: 07-28-2024 End: 01-31-2025 take 1 capsule by mouth three times daily Dicyclomine 10 mg capsule Discontinued 10 mg PO THREE TIMES A DAY 90 2 January 17, 2025 12:46pm January 31, 2025 6:53am abd pain escitalopram 10 mg oral tablet (2 sources) Serotonin Reuptake Inhibitor Start: 02-05-2018 Lexapro 10 mg oral tablet Dose : 10 mg = 1 tab(s), Oral, qDay, 0 Refill(s) Start Date: 02/05/18 Status: Ordered gabapentin 100 mg oral capsule (20 sources) Anti-epileptic Agent Start: 05-16-2024 End: 07-29-2025 take 2 capsules by mouth three times daily Gabapentin 100 mg capsule Active 200 mg PO THREE TIMES A DAY June 06, 2024 10:50am pain Start: 02-03-2024 End: 06-06-2024 take 1 capsule by mouth three times daily Gabapentin 100 mg capsule Discontinued 100 mg PO THREE TIMES A DAY February 17, 2024 12:00am June 06, 2024 10:50am Start: 09-21-2015 End: 10-15-2023 take 1 capsule by mouth four times daily gabapentin (NEURONTIN) 100 mg capsule Take 1 capsule by mouth four times daily. 40 capsule 0 09/21/2015 10/15/2023 Discontinued Comment on above: Take 1 capsule by mo [facility] four times daily. Take 1 capsule by mo [facility] three times a day for 90 days. Insulin Glargine-Yfgn (1 source) Start: 01-29-2024 Insulin Glargine-Yfgn Active 15 UNIT SC AT BEDTIME January 29, 2024 12:00am Insulin Pump Cart,Auto,Bt,G6/7 (Omnipod 5 G6-G7 Pods (Gen 5)) cartridge (16 sources) Start: 04-19-2025 Insulin Pump Cart,Auto,Bt,G6/7 (Omnipod 5 G6-G7 Pods (Gen 5)) cartridge Active 0 .Route 10 April 19, 2025 1:27pm Type 1 diabetes mellitus Type 1 diabetes mellitus without complications 1 pod q 72 hours Start: 04-19-2025 Insulin Pump C art,Auto,Bt,G6/7 (Omnipod 5 G6-G7 Pods (Gen 5)) cartridge Active 0 .Route 10 April 19, 2025 1:27pm 1 pod q 72 hours Start: 03-15-2025 End: 04-19-2025 Insulin Pump Cart,Auto,Bt,G6 /7 (Omnipod 5 G6-G7 Pods (Gen 5)) cartridge Discontinued 0 .Route 5 March 15, 2025 12:00am April 19, 2025 1:29pm Type 1 diabetes mellitus Type 1 diabetes mellitus without complications 1 pod q 72 hours Start: 03-15-2025 End: 04-19-2025 Insulin Pump Cart,Auto,Bt,G6 /7 (Omnipod 5 G6-G7 Pods (Gen 5)) cartridge Discontinued 0 .Route March 15, 2025 12:00am April 19, 2025 1:29pm 1 pod q 72 hours Start: 01-17-2025 End: 04-19-2025 Insulin Pump Cart,Auto,Bt,G6 /7 (Omnipod 5 G6-G7 Pods (Gen 5)) cartridge Discontinued 0 .Route 10 January 17, 2025 12:00am April 19, 2025 1:27pm Type 1 diabetes mellitus Type 1 diabetes mellitus without complications 1 pod q 3 days Start: 01-17-2025 End: 04-19-2025 Insulin Pump Cart,Auto,Bt,G6 /7 (Omnipod 5 G6-G7 Pods (Gen 5)) cartridge Discontinued 0 .Route January 17, 2025 12:00am April 19, 2025 1:27pm 1 pod q 3 days Start: 01-17-2025 Insulin Pump C art,Auto,Bt,G6/7 (Omnipod 5 G6-G7 Pods (Gen 5)) cartridge Active 0 .Route January 17, 2025 12:00am 1 pod q 3 days Insulin Pump Cart,Auto,Bt-Cn tr (Omnipod 5 G6 Intro Kit (Gen 5)) cartridge (6 sources) Start: 07-05-2024 Insulin Pump C art,Auto,Bt-Cntr (Omnipod 5 G6 Intro Kit (Gen 5)) cartridge Active 0 .Route 1 July 05, 2024 12:00am Diabetes mellitus Type 1 diabetes mellitus with hyperglycemia As directed Start: 07-05-2024 Insulin Pump C art,Auto,Bt-Cntr (Omnipod 5 G6 Intro Kit (Gen 5)) cartridge Active 0 .Route 1 July 05, 2024 12:00am As directed lisinopril 20 mg oral tablet (20 sources) Angiotensin Converting Enzyme Inhibitor Start: 01-29-2024 End: 03-06-2025 take 1 tablet by mouth once daily Lisinopril 20 mg tablet Active 20 mg PO DAILY 30 May 01, 2024 7:29am bp Start: 01-25-2024 End: 01-29-2024 take 1 tablet by mouth once daily Lisinopril 10 mg tablet Discontinued 10 mg PO DAILY 30 January 25, 2024 12:00am January 29, 2024 12:37pm BLOOD PRESSURE 24 hr nicotine 0.875 mg/hr transdermal system (9 sources) Cholinergic Nicotinic Agonist Start: 10-22-2023 apply 1 dose transdermal route every twenty-four hours nicotine (NICODERM) 21 mg/24 hr Indications: Encounter for smoking cessation counseling Apply 1 Patch as directed every 24 hours. 28 Patch 1 10/22/2023 Active Start: 02-05-2018 apply 1 dose transde rmal route every twenty-four hours Nicoderm CQ patch 21-14-7mg TAPER (Disch Rx) Transdermal, q24h, 0 Refill(s) Start Date: 02/05/18 Status: Ordered Comment on above: Apply 1 Patch as dir ected every 24 hours. ondansetron 4 mg oral tablet (1 source) Serotonin-3 Receptor Antagonist Start: 05-05-20 End: 05-06-20 Zofran 4 mg oral tablet Dose : 4 mg = 1 tab(s), Oral, q6h, PRN Nausea/Vomiting, # 20 tab(s), 0 Refill(s), 05/06/24 3:25:00 PM EDT Start Date: 05/05/24 Stop Date: 05/06/24 Status: Ordered perphenazine 4 mg oral tablet (2 sources) Phenothiazine Start: 02-06-20 perphenazine 4 mg oral tablet Dose : 4 mg = 1 tab(s), Oral, TID, 0 Refill(s) Start Date: 02/05/18 Status: Ordered rosuvastatin calcium 5 mg oral tablet (20 sources) HMG-CoA Reductase Inhibitor Start: 01-09-20 take 1 tablet by mouth at bedtime Rosuvastatin 5 mg tablet Active 5 mg PO AT BEDTIME January 18, 2025 12:00am Start: 05-16-2024 End: 01-05-2025 take 1 tablet by mouth once daily at bedtime rosuvastatin (CRESTOR) 5 mg tablet Indications: Elevated LDL cholesterol level Take 1 tablet by mouth daily at bedtime. 90 tablet 1 05/16/2024 01/05/2025 Discontinued traZODone hydrochloride 50 mg oral tablet (2 sources) Serotonin Reuptake Inhibitor Start: 02-05-2018 traZODone 50 mg oral tablet Dose : 50 mg = 1 tab(s), Oral, qHS, PRN Sleep / Insomnia, 0 Refill(s) Start Date: 02/05/18 Status: Ordered ziprasidone 20 mg oral capsule (11 sources) Atypical Antipsychotic Start: 04-19-2025 take 1 capsule by mouth twice daily Ziprasidone Hcl 20 mg capsule Active 20 mg PO TWICE A DAY April 19, 2025 12:00am Start: 01-18-2025 End: 04-19-2025 take 1 capsule by mouth twice daily Ziprasidone Hcl 40 mg capsule Discontinued 40 mg PO TWICE A DAY January 18, 2025 12:00am April 19, 2025 1:19pm Completed/Discontinued Medications Medication Drug Class(es) Dates Sig (Normalized) Sig (Original) acetaminophen 325 mg / HYDROcodone bitartrate 5 mg oral tablet (9 sources) Opioid Agonist Start: 05-06-2020 End: 05-09-2020 Hydrocodone-Acetami nophen 1 TABLET tablet Discontinued 1 {tbl} PO EVERY 6 HOURS NEEDED as needed for Pain 10 3 0 May 06, 2020 May 08, 2020 12:00am May 09, 2020 12:02am Dental abscess Periapical abscess without sinus Start: 05-06-2020 End: 05-09-2020 take 1 tablet by mouth every six hours as needed Hydrocodone-Acetaminophen Discontinued 1 TABLET PO EVERY 6 HOURS NEEDED 10 3 May 06, 2020 May 09, 2020 12:02am ARIPiprazole 5 mg oral tablet (9 sources) Atypical Antipsychotic Start: 03-01-2021 End: 01-25-2024 Aripiprazole 5 MG tablet Discontinued 5 NMA TWICE A DAY March 01, 2021 12:00am January 25, 2024 10:23pm atomoxetine 40 mg oral capsule (9 sources) Norepinephrine Reuptake Inhibitor Start: 12-11-2024 End: 01-25-2025 take 1 capsule by mouth once daily atomoxetine (STRATTERA) 40 mg capsule Indications: ADHD (attention deficit hyperactivity disorder), predominantly hyperactive impulsive type Take 1 capsule by mouth once daily. 14 capsule 12/11/2024 01/25/2025 Discontinued Start: 11-27-2024 End: 12-11-2024 take 1 capsule by mouth once daily atomoxetine (STRATTERA) 10 mg capsule Indications: ADHD (attention deficit hyperactivity disorder), predominantly hyperactive impulsive type Take 1 capsule by mouth once daily. 14 capsule 11/27/2024 12/11/2024 Discontinued baclofen 10 mg oral tablet (1 source) gamma-Aminobutyric Acid-ergic Agonist Start: 09-21-2015 End: 10-15-2023 take 1 tablet by mouth every eight hours as needed baclofen (LIORESAL) 10 mg tablet Take 1 tablet by mouth three times daily as needed (muscle spasms). 30 tablet 0 09/21/2015 10/15/2023 Discontinued Comment on above: Take 1 tablet by moises th three times daily as needed (muscle spasms). bismuth subsalicylate 262 mg oral tablet (6 sources) Bismuth Start: 08-15-2024 End: 08-29-2024 take 1 tablet by mouth every twenty-four hours Bismuth Subsalicylate 262 mg tablet,chewable Discontinued 2 {tbl} PO .QID 112 14 0 August 15, 2024 12:00am August 28, 2024 12:00am August 29, 2024 12:08am diarrhea do not exceed 16 tabs per 24 hrs Blood-Glucose Meter,Continuous (Dexcom G7 Medical Geneticist) misc (1 source) Start: 05-04-2024 End: 11-22-2024 Blood-Glucose Meter,Continuous (Dexcom G7 Medical Geneticist) misc Discontinued 0 .Route 1 May 04, 2024 12:00am November 22, 2024 2:21pm As directed Blood-Glucose Sensor (Dexcom G6 Sensor) device (12 sources) Start: 08-03-2024 End: 11-22-2024 Blood-Glucose Sensor (Dexcom G6 Sensor) device Discontinued 0 .Route 9 August 03, 2024 12:55pm November 22, 2024 2:21pm Diabetes mellitus Type 1 diabetes mellitus with hyperglycemia 1 sensor q 10 days Start: 08-03-2024 End: 11-22-2024 Blood-Glucose Sensor (Dexcom G6 Sensor) device Discontinued 0 .Route August 03, 2024 12:55pm November 22, 2024 2:21pm 1 sensor q 10 days Start: 07-27-2024 End: 08-03-2024 Blood-Glucose Sensor (Dexcom G6 Sensor) device Discontinued 0 .Route 3 July 27, 2024 12:00am August 03, 2024 12:55pm Diabetes mellitus Type 1 diabetes mellitus with hyperglycemia 1 sensor q 10 days Start: 07-27-2024 End: 08-03-2024 Blood-Glucose Sensor (Dexcom G6 Sensor) device Discontinued 0 .Route 3 July 27, 2024 12:00am August 03, 2024 12:55pm 1 sensor q 10 days Blood-Glucose Sensor (Freest yle Alicia 3 Sensor) device (6 sources) Start: 02-17-2024 End: 04-06-2024 Blood-Glucose Sensor (Freest yle Alicia 3 Sensor) device Discontinued 0 .Route 2 February 17, 2024 12:00am April 06, 2024 10:36am Diabetes mellitus Type 2 diabetes mellitus without complications 1 sensor q 14 days Start: 02-17-2024 End: 04-06-2024 Blood-Glucose Sensor (Freest yle Alicia 3 Sensor) device Discontinued 0 .Route 2 February 17, 2024 12:00am April 06, 2024 10:36am 1 sensor q 14 days Blood-Glucose Transmitter (Dexcom G6 Transmitter) device (12 sources) Start: 10-23-2024 End: 11-22-2024 Blood-Glucose Transmitter (Dexcom G6 Transmitter) device Discontinued 0 .Route 1 October 23, 2024 8:53am November 22, 2024 2:21pm Diabetes mellitus Type 1 diabetes mellitus with hyperglycemia 1 transmitter q 90 days Start: 10-23-2024 End: 11-22-2024 Blood-Glucose Transmitter (D excom G6 Transmitter) device Discontinued 0 .Route 1 October 23, 2024 8:53am November 22, 2024 2:21pm 1 transmitter q 90 days Start: 07-27-2024 End: 10-23-2024 Blood-Glucose Transmitter (D excom G6 Transmitter) device Discontinued 0 .Route 1 July 27, 2024 12:00am October 23, 2024 8:54am Diabetes mellitus Type 1 diabetes mellitus with hyperglycemia 1 transmitter q 90 days Start: 07-27-2024 End: 10-23-2024 Blood-Glucose Transmitter (D excom G6 Transmitter) device Discontinued 0 .Route 1 July 27, 2024 12:00am October 23, 2024 8:54am 1 transmitter q 90 days Blood-Glucose,Medical Geneticist,Cont (Dexcom G7 Medical Geneticist) misc (5 sources) Start: 05-04-2024 End: 11-22-2024 Blood-Glucose,Medical Geneticist,Cont (Dexcom G7 Medical Geneticist) misc Discontinued 0 .Route 1 May 04, 2024 12:00am November 22, 2024 2:21pm Diabetes mellitus Type 1 diabetes mellitus with hyperglycemia As directed Start: 05-04-2024 End: 11-22-2024 Blood-Glucose,Medical Geneticist,Cont (Dexcom G7 Medical Geneticist) misc Discontinued 0 .Route 1 May 04, 2024 12:00am November 22, 2024 2:21pm As directed clindamycin 300 mg oral capsule (6 sources) Lincosamide Antibacterial Start: 02-06-2025 End: 04-19-2025 take 1 capsule by mouth every six hours Clindamycin Hcl (Cleocin Hcl) 300 mg capsule Discontinued 300 mg PO EVERY 6 HOURS 40 0 February 06, 2025 12:00am April 19, 2025 1:19pm Ergocalciferol (14 sources) Provitamin D2 Compound Start: 04-19-2025 End: 05-17-2025 Ergocalciferol (Vitamin D2) 1,250 mcg (50,000 unit) capsule Discontinued 1250 ug PO EVERY WEEK April 19, 2025 12:00am May 17, 2025 2:58pm Start: 04-19-2025 Ergocalciferol (Vitamin D2) 1,250 mcg (50,000 unit) capsule Active 1250 ug PO EVERY WEEK April 19, 2025 12:00am Start: 01-08-2025 take 1 capsule by mo ut every week ergocalciferol 50,000 unit capsule (VITAMIN D2, DRISDOL) Indications: Vitamin D deficiency Take 1 capsule by mouth one time a week. Use as directed. 12 capsule 01/08/2025 Active FLUoxetine 10 mg oral capsule (1 source) Serotonin Reuptake Inhibitor End: 10-15-2023 take 1 capsule by mouth once daily FLUoxetine (PROZAC) 10 mg capsule Take 10 mg by mouth once daily. 0 10/15/2023 Discontinued Comment on above: Take 10 mg by mouth once daily. glipiZIDE er 10 mg 24 hr extended release oral tablet (16 sources) Sulfonylurea Start: 12-28-2023 End: 01-29-2024 take 1 tablet by mouth once daily Glipizide 10 mg tablet extended release 24hr Discontinued 10 mg PO DAILY January 25, 2024 12:00am January 29, 2024 12:36pm BLOOD SUGARS Start: 10-22-2023 End: 12-28-2023 take 1 tablet by mouth once daily glipiZIDE (GLUCOTROL) 5 mg tablet Indications: Type 2 diabetes mellitus without complication, without long-term current use of insulin (HCC) Take 1 tablet by mouth once daily 30 tablet 0 12/23/2023 12/28/2023 Discontinued Comment on above: Take 1 tablet (5 mg) by mouth once daily. Take 1 tablet by moises th once daily Take 1 tablet by moises th once daily. 3 ml insulin glargine 100 unt/ml pen injector (19 sources) Insulin Analog Start: 08-07-2024 End: 01-25-2025 LANTUS SOLOSTAR U-100 INSULIN 100 unit/mL (3 mL) Indications: Type 2 diabetes mellitus with peripheral neuropathy (HCC) Inject 12 Units subcutaneously daily at bedtime. 08/07/2024 01/25/2025 Discontinued Start: 01-29-2024 End: 08-07-2024 LANTUS SOLOSTAR U-100 INSULI N 100 unit/mL (3 mL) Indications: Type 2 diabetes mellitus with peripheral neuropathy (HCC) Inject 15 Units subcutaneously daily at bedtime. 01/29/2024 08/07/2024 Discontinued (Adjust Sig - Block E-Cancel) Comment on above: Inject 15 Units subc utaneously daily at bedtime. Insulin Glargine-Yfgn 100 unit/mL (3 mL) Insulin Pen (18 sources) Start: 08-01-2024 End: 11-22-2024 Insulin Glargine-Yfgn 100 unit/mL (3 mL) Insulin Pen Discontinued 16 U SC AT BEDTIME 0 August 01, 2024 12:00am November 22, 2024 12:48pm Start: 08-01-2024 End: 11-22-2024 Insulin Glargine-Yfgn 100 un it/mL (3 mL) Insulin Pen Discontinued 16 U SC AT BEDTIME 0 August 01, 2024 12:00am November 22, 2024 12:48pm Start: 07-29-2024 End: 11-22-2024 Insulin Glargine-Yfgn 100 un it/mL (3 mL) Insulin Pen Discontinued 12 U SC AT BEDTIME July 29, 2024 12:00am November 22, 2024 12:48pm dm Start: 07-29-2024 End: 11-22-2024 Insulin Glargine-Yfgn 100 un it/mL (3 mL) Insulin Pen Discontinued 12 U SC AT BEDTIME July 29, 2024 12:00am November 22, 2024 12:48pm Start: 01-29-2024 End: 07-29-2024 Insulin Glargine-Yfgn 100 un it/mL (3 mL) Insulin Pen Discontinued 15 U SC AT BEDTIME 15 January 29, 2024 12:00am July 29, 2024 10:22pm Start: 01-29-2024 End: 07-29-2024 Insulin Glargine-Yfgn 100 un it/mL (3 mL) Insulin Pen Discontinued 15 U SC AT BEDTIME January 29, 2024 12:00am July 29, 2024 10:22pm insulin lispro 100 unt/ml injectable solution (20 sources) Insulin Analog Start: 07-31-2024 End: 01-25-2025 insulin lispro 100 unit/mL injection Inject 6 Units subcutaneously three times a day before meals. 3 units with snacks 07/31/2024 01/25/2025 Discontinued Start: 07-31-2024 End: 11-22-2024 Insulin Lispro (Humalog U-10 0 Insulin) 100 unit/mL solution Discontinued 50 U continuous subcutaneous infusion .continuous 45 August 01, 2024 1:59pm November 22, 2024 1:55pm Diabetes mellitus Type 1 diabetes mellitus with hyperglycemia Use subcutaneous insulin as you had been previously less otherwise instructed Start: 03-30-2024 End: 11-22-2024 Insulin Lispro (Humalog Kwik pen Insulin) 100 unit/mL insulin pen Discontinued 6 U SC THREE TIMES A DAY March 30, 2024 12:00am November 22, 2024 12:48pm dm Start: 02-17-2024 End: 03-30-2024 Insulin Lispro (Humalog Kwik pen Insulin) 100 unit/mL insulin pen Discontinued 20 U SC THREE TIMES A DAY 18 February 17, 2024 12:00am March 30, 2024 3:01pm Diabetes mellitus Type 2 diabetes mellitus without complications Insulin Pump Cart,Automated, Bt (Omnipod 5 G6 Pods (Gen 5)) cartridge (20 sources) Start: 07-05-2024 End: 01-17-2025 Insulin Pump Cart,Automated, Bt (Omnipod 5 G6 Pods (Gen 5)) cartridge Discontinued 0 .Route 10 July 05, 2024 4:45pm January 17, 2025 8:41am Diabetes mellitus Type 1 diabetes mellitus with hyperglycemia 1 pod q 3 days Please make sure that pods are G7 compatible Start: 07-05-2024 End: 01-17-2025 Insulin Pump Cart,Automated, Bt (Omnipod 5 G6 Pods (Gen 5)) cartridge Discontinued 0 .Route July 05, 2024 4:45pm January 17, 2025 8:41am 1 pod q 3 days Please make sure that pods are G7 compatible Start: 07-05-2024 End: 07-05-2024 Insulin Pump Cart,Automated, Bt (Omnipod 5 G6 Pods (Gen 5)) cartridge Discontinued 0 .Route 10 July 05, 2024 10:44am July 05, 2024 4:45pm Diabetes mellitus Type 1 diabetes mellitus with hyperglycemia 1 pod q 3 days Please make sure that pods are G7 compatible Start: 07-05-2024 End: 07-05-2024 Insulin Pump Cart,Automated, Bt (Omnipod 5 G6 Pods (Gen 5)) cartridge Discontinued 0 .Route July 05, 2024 10:44am July 05, 2024 4:45pm 1 pod q 3 days Please make sure that pods are G7 compatible Start: 07-05-2024 End: 07-05-2024 Insulin Pump Cart,Automated, Bt (Omnipod 5 G6 Pods (Gen 5)) cartridge Discontinued 0 .Route 10 July 05, 2024 10:43am July 05, 2024 10:44am Diabetes mellitus Type 1 diabetes mellitus with hyperglycemia 1 pod q 3 days Please make sure that pods are G7 compatible Start: 07-05-2024 End: 07-05-2024 Insulin Pump Cart,Automated, Bt (Omnipod 5 G6 Pods (Gen 5)) cartridge Discontinued 0 .Route July 05, 2024 10:43am July 05, 2024 10:44am 1 pod q 3 days Please make sure that pods are G7 compatible Start: 07-05-2024 End: 07-05-2024 Insulin Pump Cart,Automated, Bt (Omnipod 5 G6 Pods (Gen 5)) cartridge Discontinued 0 .Route 10 0 July 05, 2024 12:00am July 05, 2024 10:44am Diabetes mellitus Type 1 diabetes mellitus with hyperglycemia 1 pod q 3 days Start: 07-05-2024 End: 07-05-2024 Insulin Pump Cart,Automated, Bt (Omnipod 5 G6 Pods (Gen 5)) cartridge Discontinued 0 .Route July 05, 2024 12:00am July 05, 2024 10:44am 1 pod q 3 days 24 hr metFORMIN hydrochloride 500 mg extended release oral tablet (16 sources) Biguanide Start: 03-01-2021 End: 01-25-2024 take 1 tablet by mouth twice daily Metformin 500 MG tablet extended release 24 hr Discontinued 500 mg PO TWICE A DAY March 01, 2021 12:00am January 25, 2024 10:23pm Start: 02-05-2018 End: 10-15-2023 metFORMIN 500 mg oral tablet , extended release Dose : 1,000 mg = 2 tab(s), Oral, BID, # 360 tab(s), 1 Refill(s), Pharmacy: [facility], DM2, uncontrolled. A1c 14.9% Start Date: 02/05/18 Status: Ordered Comment on above: Take 500 mg by mouth twice daily with meals. Take 1 tablet by moises th two times a day with meals. take 1 tablet by moises th twice daily with meals metoclopramide 5 mg oral tablet (20 sources) Dopamine-2 Receptor Antagonist Start: 07-29-20 End: 02-23-20 take 1 tablet by mouth every eight hours as needed for nausea and vomiting Metoclopramide Hcl (Reglan) 5 mg tablet Discontinued 5 mg PO EVERY 8 HOURS NEEDED as needed for nausea and vomiting 90 2 December 06, 2024 9:11am February 22, 2025 10:14am Start: 01-29-2024 End: 05-01-2024 take 1 tablet by mouth four times daily metoclopramide HCl (REGLAN) 5 mg tablet Take 1 tablet by mouth four times daily. 120 tablet 5 05/01/2024 Active Start: 01-29-2024 End: 07-28-2024 take 1 tablet by mouth every six hours Metoclopramide Hcl 5 mg tablet Discontinued 5 mg PO EVERY 6 HOURS 120 1 July 28, 2024 4:41pm July 28, 2024 5:02pm metroNIDAZOLE 250 mg oral tablet (6 sources) Nitroimidazole Antimicrobial Start: 08-15-2024 End: 08-29-2024 take 1 tablet by mouth four times daily Metronidazole 250 mg tablet Discontinued 250 mg PO .QID 60 14 0 August 15, 2024 12:00am August 28, 2024 12:00am August 29, 2024 12:08am pantoprazole 40 mg delayed release oral tablet (20 sources) Proton Pump Inhibitor Start: 01-29-2024 End: 08-15-2024 take 1 tablet by mouth twice daily Pantoprazole 40 mg tablet,delayed release (DR/EC) Discontinued 40 mg PO TWICE A DAY 60 2 May 01, 2024 2:35pm August 01, 2024 1:58pm gerd phenylephrine hydrochloride 25 mg/ml ophthalmic solution (2 sources) alpha-1 Adrenergic Agonist Start: 10-27-2024 End: 10-27-2024 PHENYLephrine 2.5 % 1 Drop (AK-DILATE, GAYLE-SYNEPHRINE) Start: 10-27-2024 End: 10-27-2024 1 Drop, BOTH EYES, ONCE, 1 d ose, On Wed10/27/24 at 1030, FOR OPHTHALMIC USE ONLY PROTECT FROM LIGHT pioglitazone 15 mg oral tablet (11 sources) Peroxisome Proliferator Receptor alpha Agonist, Peroxisome Proliferator Receptor gamma Agonist, Thiazolidinedione Start: 12-28-2023 End: 01-29-2024 take 1 tablet by mouth once daily Pioglitazone 15 mg tablet Discontinued 15 mg PO DAILY January 27, 2024 12:00am January 29, 2024 12:36pm BLOOD SUGARS Comment on above: Take 1 tablet by moises once daily. prochlorperazine 10 mg oral tablet (6 sources) Phenothiazine Start: 07-28-2024 End: 08-15-2024 take 1 tablet by mouth three times daily as needed for nausea and vomiting Prochlorperazine Maleate 10 mg tablet Discontinued 10 mg PO THREE TIMES A DAY as needed for nausea and vomiting 30 3 July 28, 2024 12:00am August 15, 2024 1:46pm proparacaine hydrochloride 5 mg/ml ophthalmic solution (2 sources) Local Anesthetic Start: 10-27-2024 End: 10-27-2024 proparacaine 0.5 % 1 Drop (ALCAINE) Start: 10-27-2024 End: 10-27-2024 1 Drop, BOTH EYES, ONCE, 1 d ose, On Wed10/27/24 at 1030, FOR THE EYE 72 hr scopolamine 0.0139 mg/hr transdermal system (20 sources) Anticholinergic Start: 07-28-2024 End: 08-15-2024 Scopolamine Base 1 mg over 3 days patch 3 day Discontinued 1 NMA TD Every 3 Days 4 0 July 28, 2024 12:00am August 15, 2024 1:46pm nausea sucralfate 1000 mg oral tablet (20 sources) Aluminum Complex Start: 02-27-2025 End: 05-23-2025 take 1 tablet by mouth every six hours Sucralfate 1 gram tablet Discontinued 1 g PO EVERY 6 HOURS 120 0 April 24, 2025 1:27pm May 23, 2025 8:34am Start: 01-31-2025 End: 02-27-2025 take 1 tablet by mouth every six hours Sucralfate 1 gram tablet Discontinued 1 g PO EVERY 6 HOURS 120 0 January 31, 2025 6:53am February 27, 2025 7:20am Start: 01-31-2025 End: 02-27-2025 take 1 tablet by mouth every six hours Sucralfate 1 gram tablet Discontinued 1 g PO EVERY 6 HOURS 120 January 31, 2025 6:53am February 27, 2025 7:20am Start: 01-31-2025 take 1 tablet by moises th every six hours Sucralfate 1 gram tablet Active 1 g PO EVERY 6 HOURS 120 January 31, 2025 6:53am Start: 08-01-2024 take 1 tablet by moises th four times daily sucralfate (CARAFATE) 1 gram tablet Take 1 g by mouth four times daily. 08/01/2024 Active Start: 08-01-2024 End: 01-31-2025 take 1 tablet by mouth every six hours Sucralfate 1 gram tablet Discontinued 1 g PO EVERY 6 HOURS 120 1 November 29, 2024 4:12pm January 31, 2025 6:53am tetracycline hydrochloride 500 mg oral capsule (6 sources) Tetracycline-class Antimicrobial Start: 08-15-2024 End: 08-29-2024 take 1 capsule by mouth four times daily Tetracycline 500 mg capsule Discontinued 500 mg PO .QID 56 14 0 August 15, 2024 12:00am August 28, 2024 12:00am August 29, 2024 12:08am tropicamide 10 mg/ml ophthalmic solution (2 sources) Anticholinergic Start: 10-27-2024 End: 10-27-2024 tropicamide 1 % 1 Drop (MYDRIACYL) Start: 10-27-2024 End: 10-27-2024 1 Drop, BOTH EYES, ONCE, 1 d ose, On Wed10/27/24 at 1030, FOR THE EYE varenicline 1 mg oral tablet (14 sources) Partial Cholinergic Nicotinic Agonist Start: 01-27-2024 End: 03-27-2024 Varenicline Tartrate 1 mg tablet Discontinued 1 mg PO January 27, 2024 12:00am January 27, 2024 3:10pm SMOKING Start: 12-28-2023 End: 01-27-2024 take 0.5 tablet by mouth once daily, then take 0.5 tablet by mouth twice daily, then take 1 tablet by mouth twice daily varenicline (CHANTIX) 1 mg tablet Indications: Encounter for smoking cessation counseling Take 0.5 tablets by mouth once daily for 3 days, THEN 0.5 tablets two times a day for 4 days, THEN 1 tablet two times a day for 23 days. 52 tablet 0 12/28/2023 Active Comment on above: Take 0.5 tablets by mouth once daily for 3 days, THEN 0.5 tablets two times a day for 4 days, THEN 1 tablet two times a day for 23 days. Take 1 tablet by moises th two times a day. Patient should start on January 27, 2024. Problems Active Problems Problem Classification Problem Date Documented Date Episodic/Chronic Acute and unspecified renal failure (9 sources) Prerenal azotemia; Translations: [Unspecified kidney failure] 01-25-2024 Chronic Attention-deficit, conduct, and disruptive behavior disorders (4 sources) Attention deficit hyperactivity disorder, predominantly hyperactive impulsive type; Translations: [Attention-deficit hyperactivity disorder, predominantly hyperactive type] 11-27-2024 Chronic Attention-deficit, conduct, and disruptive behavior disorders (1 source) Attention-deficit hyperactivity disorder, predominantly hyperactive type; Translations: [ADHD (attention deficit hyperactivity disorder), predominantly hyperactive impulsive type] Onset: 12-28-2024 Chronic Blindness and vision defects (2 sources) Bilateral myopia of eyes; Translations: [Myopia, bilateral] 10-27-2024 Episodic Cataract (2 sources) Nuclear sclerosis; Translations: [Age-related nuclear cataract, bilateral] 10-27-2024 Chronic Diabetes mellitus with complications (20 sources) Hyperglycemia due to type 2 diabetes mellitus; Translations: [Type 2 diabetes mellitus with hyperglycemia] Onset: 08-07-2024 01-25-2024 Chronic Diabetes mellitus without complication (20 sources) Latent autoimmune diabetes mellitus in adult; Translations: [Other specified diabetes mellitus without complications] Onset: 06-09-2021 10-15-2023 Chronic Diabetes mellitus without complication (19 sources) Hyperglycemia; Translations: [Hyperglycemia, unspecified] Onset: 01-26-2024 Episodic Disorders of lipid metabolism (19 sources) Raised low density lipoprotein cholesterol; Translations: [Pure hypercholesterolemia, unspecified] Onset: 04-30-2025 05-16-2024 Chronic Disorders of teeth and jaw (17 sources) Dental abscess; Translations: [Periapical abscess without sinus] Onset: 04-30-2025 05-07-2020 Episodic Esophageal disorders (9 sources) Gastroesophageal reflux disease; Translations: [Gastro-esophageal reflux disease without esophagitis] Onset: 10-31-2024 06-06-2024 Chronic Essential hypertension (20 sources) Hypertensive disorder; Translations: [Essential (primary) hypertension] Onset: 01-26-2024 01-25-2024 Chronic Fluid and electrolyte disorders (19 sources) Dehydration; Translations: [Dehydration] Onset: 01-26-2024 01-25-2024 Episodic Gastroduodenal ulcer (except hemorrhage) (7 sources) Gastric ulcer; Translations: [Gastric ulcer, unspecified as acute or chronic, without hemorrhage or perforation] Onset: 08-16-2024 07-31-2024 Chronic Genitourinary symptoms and ill-defined conditions (7 sources) Proteinuria; Translations: [Proteinuria, unspecified] Onset: 01-26-2024 Episodic Mood disorders (13 sources) Bipolar disorder; Translations: [Bipolar disorder, unspecified] 10-15-2023 Chronic Nutritional deficiencies (2 sources) Vitamin D deficiency; Translations: [Vitamin D deficiency, unspecified] Onset: 05-03-2025 01-08-2025 Chronic Other aftercare (1 source) Other [place] [facility] (current) drug therapy; Translations: [Medication management] Onset: 04-30-2025 Episodic Other circulatory disease (1 source) Abnormal peripheral pulse; Translations: [Other specified symptoms and signs involving the circulatory and respiratory systems] 02-08-2024 Episodic Other congenital anomalies (1 source) Porokeratosis; Translations: [Other specified congenital malformations of skin] 02-08-2024 Chronic Other disorders of stomach and duodenum (14 sources) Gastroparesis syndrome; Translations: [Gastroparesis] 08-06-2024 Episodic Other liver diseases (11 sources) Alkaline phosphatase raised; Translations: [Abnormal levels of other serum enzymes] 01-18-2025 Episodic Other liver diseases (11 sources) Aspartate aminotransferase serum level raised; Translations: [High aspartate aminotransferase level] 01-18-2025 Episodic Other lower respiratory disease (2 sources) Chronic cough; Translations: [Chronic cough] 10-15-2023 Episodic Other nutritional; endocrine; and metabolic disorders (9 sources) Ketosis; Translations: [Other specified metabolic disorders] 01-25-2024 Chronic Other skin disorders (1 source) Foot callus; Translations: [Corns and callosities] 10-15-2023 Episodic Other skin disorders (6 sources) Facial swelling ; Translations: [Localized swelling, mass and lump, head] 02-06-2025 Episodic Residual codes; unclassified (1 source) Procedure not done; Translations: [Procedure and treatment not carried out, unspecified reason] 10-18-2024 Episodic Residual codes; unclassified (6 sources) Normal body mass index; Translations: [Other specified conditions influencing health status] 04-06-2024 Episodic Screening and history of mental health and substance abuse codes (2 sources) Encounter for screening for depression; Translations: [Encounter for screening examination for other mental health and behavioral disorders] Onset: 04-30-2025 Episodic Sprains and strains (9 sources) Lumbosacral strain; Translations: [Strain of muscle, fascia and tendon of lower back, initial encounter] 08-21-2015 Episodic Substance-related disorders (9 sources) Cannabis hyperemesis syndrome co-occurrent and due to cannabis abuse; Translations: [Cannabis abuse with other cannabis-induced disorder] 01-25-2024 Chronic Unclassified (9 sources) No history of clinical finding in subject; Translations: [No significant past medical history] 05-06-2020 Urinary tract infections (9 sources) Urethritis; Translations: [Other urethritis] 02-22-2015 Episodic Past or Other Problems Problem Classification Problem Date Documented Da te Episodic/Chronic Abdominal pain (20 sources) Acute abdominal pain; Translations: [Generalized abdominal pain] Onset: 01-26-2024 01-25-2024 Episodic Gastroduodenal ulcer (except hemorrhage) (2 sources) Acute gastric ulcer without hemorrhage AND without perforation; Translations: [Acute gastric ulcer without hemorrhage or perforation] Onset: 08-07-2024 08-07-2024 Episodic Gastrointestinal hemorrhage (9 sources) Hematemesis; Translations: [Hematemesis] Onset: 08-07-2024 08-07-2024 Episodic Immunizations and screening for infectious disease (14 sources) Patient encounter status; Translations: [Encounter for immunization] Onset: 08-07-2024 10-15-2023 Episodic Intestinal infection (9 sources) Infection caused by Helicobacter pylori; Translations: [Other specified bacterial intestinal infections] Onset: 10-31-2024 03-22-2024 Episodic Nausea and vomiting (20 sources) Vomiting; Translations: [Vomiting, unspecified] Onset: 01-26-2024 Episodic Other disorders of stomach and duodenum (1 source) Gastroparesis; Translations: [Gastroparesis] Onset: 08-21-2024 Episodic Other screening for suspected conditions (not mental disorders or infectious disease) (1 source) Encounter for screening for other digestive system disorders; Translations: [Encounter for screening for other digestive system disorders] Onset: 01-05-2025 Episodic Other skin disorders (1 source) Localized swelling, mass and lump, head; Translations: [Localized swelling, mass and lump, head] Onset: 02-12-2025 Episodic Unclassified (9 sources) Paronychia of third finger of right hand; Translations: [Paronychia of third finger of right hand] 05-06-2020 Results Test Name Value Interpretation Reference Range Facility Gastroenterology Visit Repor ton 05-17-2025 Gastroenterology Visit Report [facility] [address] [address] OFFICE VISIT Date of Service: 05/17/25 MR#: [id number] Acct: [id number] Name: WESTON GAMEZ Rep #: [id number] : 1985 Provider: Jaycob Argueta DO Age/Sex: 39/M Location: [facility] Status: Signed Intake Vital Signs 02/06/25 17:10 05/03/25 08:45 Height 5 ft 6 in 5 ft 6 in Intake Visit Reasons: 6 M FU Allergies No Known Allergies Allergy (Verified 05/17/25 14:59) Medications ???Medication ???Instructions ???Recorded ???Confirmed ???Type pen needle, diabetic 32 gauge x #100 ea 03/29/24 05/17/25 Rx 5/32 (BD Ultra-Fine Lizzeth Pen Needle) lisinopril 20 mg tablet 20 mg PO DAILY bp #30 tabs 05/01/2 4 05/17/25 Rx gabapentin 100 mg capsule 200 mg PO TID pain 06/06/24 History insulin pump cartridge,automated #1 ea 07/05/24 05/17/25 Rx dose,BT with controller subcutaneous (Omnipod 5 G6 Intro Kit (Gen 5) subcutaneous cartridge with controller) pantoprazole 40 mg tablet,delayed 40 mg PO BID #60 tabs 08/15/24 Rx release insulin lispro 100 unit/mL 50 unit (0.5 mL) continuous 05/17/25 Rx subcutaneous solution (Humalog subcutaneous infusion .continuous U-100 Insulin) #45 mL buspirone 10 mg tablet 10 mg PO BID 01/18/25 05/17/25 His tory rosuvastatin 5 mg tablet 5 mg PO QHS 01/18/25 05/17/25 Hist ory dicyclomine 10 mg capsule 10 mg PO TID for abdominal pain 05/17/25 Rx #90 caps metoclopramide HCl 5 mg tablet 5 mg PO Q8H PRN PRN nausea and 05/17/25 Rx (Reglan) vomiting #90 tabs amitriptyline 50 mg tablet 50 mg PO QHS 04/19/25 05/17/25 His tory blood-glucose sensor (Dexcom G7 #3 ea 04/19/25 05/17/25 Rx Sensor device) dextroamphetamine-amphetam ine 10 1 tab PO BID 04/19/25 05/17/25 His tory mg tablet insulin pump cart,auto,BT,G6/7 #10 ea 04/19/25 05/17/25 Rx (Omnipod 5 G6-G7 Pods (Gen 5) subcutaneous cartridge) ziprasidone HCl 20 mg capsule 20 mg PO BID 04/19/25 05/17/25 His tory sucralfate 1 gram tablet 1 g PO Q6 #120 TABLETS 04/24/25 Rx Nurse's Note: Bowels have been changing back and forth between constipation and diarrhea. Nausea prevents him from eating the way he should. [facility] Medical History (Updated 05/17/25 @ 15:[address] Devries Friend, DO) Gastroparesis Former tobacco use Cannabis use disorder Hypertension Schizophrenia Anxiety Depression Migraines Type 2 diabetes mellitus with hyperglycemia Schizo-affective schizophrenia Bipolar 1 disorder Diabetes mellitus Surgical History H/O esophagogastroduodenoscopy No history of previous surgery Family History Mother Diabetes Sister Diabetes Father CVA (cerebral vascular accident) Myocardial infarction Social History household members: spouse Smoking Status: Former smoker pack-years: 10 how long ago did patient quit smoking: Quit 05/2024, prior smoked 1/2 ppd. second hand exposure: No alcohol intake: former substance use type: marijuana HPI HPI Details: WESTON GAMEZ, is a 38 M who presents to the office today for follow up. [facility] ED 01.25.24 abd pain with N/V x15 abd/pelvis CT 01.25.24 1. Urinary bladder distention may be transient/physiologic. Correlate clinically. 2. Mildly prominent bilateral inguinal lymph nodes, perhaps reactive. [facility] ED 3 - 3 abd pain N/V EGD 01.28.24 LA Grade C erosive esophagitis with no bleeding. Bilious gastric fluid. Fluid aspiration performed. Non-bleeding gastric ulcers with no stigmata of bleeding. Biopsied. Gastric stenosis was found at the pylorus. Dilated. Non-bleeding duodenal ulcers with no stigmata of bleeding. Severe gastroparesis along with pyloric stenosis secondary to poorly controlled diabetes mellitus EGD 5.28.24 Esophageal mucosal changes suggestive of Blakely's esophagus. Biopsied. Small hiatal hernia. A medium amount of food (residue) in the stomach. Retained food in the duodenum. [facility] ED 7 abd pain abd/pelvis CT .05.31 No acute abdominal or pelvic abnormality. *[facility] established 06.06.24 pt reports symptoms began about 3 weeks ago. Pt reports symptoms of occasional RLQ stabbing pain, nausea with occasional vomiting, constipation, and heartburn. Pt reports a soft BM every 3-4 days; denies blood in the stool. Pt reports that his gabapentin was increased from 300mg daily to 600mg daily around the same time that the symptoms began. Pt continues with pantoprazole 40mg BID. [facility] hospitalization 07.30.24-08.01.24 for intractable n/v with hematemesis. Underwent EGD. Biopsy positive for H.Pylori EGD 07.31.24; - Cyclic vomiting synd (more content not included)... Normal [facility] Endocrinology Visit Reporton 05-03-2025 Endocrinology Visit Report [facility] [address] [place] [address] OFFICE VISIT Date of Service: 05/03/25 MR#: [id number] Acct: [id number] Name: WESTON GAMEZ Rep #: [id number] : 1985 Provider: Karin Sharpe Age/Sex: 39/M Location: [facility] Status: Signed Intake Vital Signs 04/19/25 13:13 05/03/25 08:45 Height 5 ft 6 in 5 ft 6 in Weight: 160 lb 164 lb 2 oz BMI 25.8 26.4 BP 115/75 130/76 H Blood Pressure Location Lt brachial Rt brachial Position Sitting Sitting Pulse 105 H 93 Pulse Source Monitor Monitor Pulse Oximetry (%) 97 98 Oxygen Delivery Method room air room air Intake Visit Reasons: 2 Wk FU Chief Complaint: f/u diabetes Is patient in pain?: No Allergies No Known Allergies Allergy (Verified 05/03/25 08:48) Medications ???Medication ???Instructions ???Recorded ???Confirmed ???Type pen needle, diabetic 32 gauge x #100 ea 03/29/24 05/03/25 Rx (BD Ultra-Fine Lizzeth Pen Needle) lisinopril 20 mg tablet 20 mg PO DAILY bp #30 tabs 05/01/2 4 05/03/25 Rx gabapentin 100 mg capsule 200 mg PO TID pain 06/06/24 History insulin pump cartridge,automated #1 ea 07/05/24 05/03/25 Rx dose,BT with controller subcutaneous (Omnipod 5 G6 Intro Kit (Gen 5) subcutaneous cartridge with controller) pantoprazole 40 mg tablet,delayed 40 mg PO BID #60 tabs 08/15/24 Rx release insulin lispro 100 unit/mL 50 unit (0.5 mL) continuous 05/03/25 Rx subcutaneous solution (Humalog subcutaneous infusion .continuous U-100 Insulin) #45 mL buspirone 10 mg tablet 10 mg PO BID 01/18/25 05/03/25 His tory rosuvastatin 5 mg tablet 5 mg PO QHS 01/18/25 05/03/25 Hist ory dicyclomine 10 mg capsule 10 mg PO TID for abdominal pain 05/03/25 Rx #90 caps metoclopramide HCl 5 mg tablet 5 mg PO Q8H PRN PRN nausea and 05/03/25 Rx (Reglan) vomiting #90 tabs amitriptyline 50 mg tablet 50 mg PO QHS 04/19/25 05/03/25 His tory blood-glucose sensor (Dexcom G7 #3 ea 04/19/25 05/03/25 Rx Sensor device) dextroamphetamine-amphetam ine 10 1 tab PO BID 04/19/25 05/03/25 His tory mg tablet ergocalciferol (vitamin D2) 1,250 1,250 mcg PO QWEEK 04/19/2505/03 History mcg (50,000 unit) capsule insulin pump cart,auto,BT,G6/7 #10 ea 04/19/25 05/03/25 Rx (Omnipod 5 G6-G7 Pods (Gen 5) subcutaneous cartridge) ziprasidone HCl 20 mg capsule 20 mg PO BID 04/19/25 05/03/25 His tory sucralfate 1 gram tablet 1 g PO Q6 #120 TABLETS 06/17/25 06 /26/25 Rx PFSH Medical History Gastroparesis Former tobacco use Cannabis use disorder Hypertension Schizophrenia Anxiety Depression Migraines Type 2 diabetes mellitus with hyperglycemia Schizo-affective schizophrenia Bipolar 1 disorder Diabetes mellitus Surgical History H/O esophagogastroduodenoscopy No history of previous surgery Family History Mother Diabetes Sister Diabetes Father CVA (cerebral vascular accident) Myocardial infarction Social History household members: spouse Smoking Status: Former smoker pack-years: 10 how long ago did patient quit smoking: Quit 05/2024, prior smoked 1/2 ppd. second hand exposure: No alcohol intake: former substance use type: marijuana HPI HPI Chief Complaint: f/u diabetes Details: WESTON GAMEZ, is a 39 M who presents to the office today for follow up. A1C is 11.3% He is using Omnipod insulin pump with Dexcom CGM and automated mode. Upload shows he isn't reporting carb very often. He isn't staying in automated mode. He has mental illness as barrier to improved control. His uncle committed suicide and he is feeling guilty that he didn't prevent it. ROS Const Constitutional: No fatigue or weight change ENT ENT: No dizziness/vertigo Cardio Cardiology: Positive for shortness of breath; No chest pain at rest, chest pain with exertion or palpitations Skin Skin: No wounds Endo Endocrine: No fatigue or weight change Exam Const General: cooperative, healthy appearing, comfortable, no acute distress, well developed and not cushingoid Nutritional Appearance: well nourished Orientation: alert, awake and oriented x3 HENMT Head: normal to inspection Ears: hearing grossly normal bilaterally Nose: external nose normal Mouth: oral mucosae normal Eyes General: appearance normal, both eyes and all related structures Alignment and Position: alignment normal Periorbital: periorbital findings normal Eyelids: eyelids normal Conjunctivae: conjun (more content not included)... Normal [facility] ALBUMIN/CREATININE RATIO, UR INEon 05-01-2025 Albumin DL <= 20 mg/L (U) [Mass/Vol] 28.7 mg/L Normal [facility] Comment on above: Order Comment: Speci men Type: URINE SPECIMENOrdering Facility: [facility] Address: [address] [place] [address] Performed By: #### U ACR ####[facility] LABIA [id number] [place] [id number] [place] Albumin/Creatinine (U) [Mass ratio] 13 mg/g Normal <30 [facility] Comment on above: Order Comment: Speci men Type: URINE SPECIMENOrdering Facility: [facility] Address: [address] [place] [address] Result Comment: Adul t Male and Female Nephrotic Criteria: <30 mg/g is considered normal to mildly increased 30-300 mg/g is considered moderately increased >300 mg/g is considered severely increased KDIGO. (2013). KDIGO 2012 Clinical Practice Guideline for the Evaluation and Management of Chronic Kidney Disease. Official Journal of the International Society of Nephrology, 3(1), 1-150. Performed By: #### U ACR ####[facility] LABIA [id number] [place] [id number] [place] Creatinine (U) [Mass/Vol] 221.4 mg/dL Normal 20.0-300.0 [facility] Comment on above: Order Comment: Speci men Type: URINE SPECIMENOrdering Facility: [facility] Address: [address] [place] [address] Performed By: #### U ACR ####[facility] LABIA [id number] [place] [id number] [place] CNOVon 04-30-2025 CNOV Office Visit (FAMPWS ) -- WESTON GAMEZ ([id number]) 1985 M T Date Time Provider Department 04/30/25 2:40 PM AUSTIN CAMARENA During your visit today, we recorded the following information about you: Pulse Blood pressure Weight 109/minute 115/79 72 kg Austin Camarena APRN.SHIPPING ASSOCIATE 04/30/2025 2:44 PM Signed Chief Complaint Patient presents with: Follow Up HPI Weston Gamez is a 39 year old male who presents here today for Above Complaints. Past medical history, appointments, medications, allergies reviewed. Previous Medical History PAST MEDICAL HISTORY Diagnosis Date ADHD (attention deficit hyperactivity disorder) Bipolar 1 disorder (HCC) DM (diabetes mellitus), type 2 (HCC) Gastroparesis 02/2024 Previous Surgical History PAST SURGICAL HISTORY Procedure Laterality Date NONE Family History FAMILY HISTORY Problem Relation Age of Onset Hypertension Father Heart Father Hypertension Mother Diabetes Mother No Ocular Disease No Family History Patient Allergies ALLERGIES No Known Allergies Current Medications Current Outpatient Medications on File Prior to Visit Medication Sig blood sugar diagnostic (BLOOD GLUCOSE TEST) test strip Test blood sugar(s) 1 times daily. Dx: Type 2 DM - Uncontrolled E11.65 Insulin: No lisinopril (ZESTRIL) 20 mg tablet Take 1 tablet by mouth once daily. busPIRone (BUSPAR) 10 mg tablet Take 10 mg by mouth three times a day. dextroamphetamine-amphetam ine (ADDERALL) 10 mg tablet Take 10 mg by mouth two times a day. rosuvastatin (CRESTOR) 5 mg tablet Take 1 tablet by mouth daily at bedtime. gabapentin (NEURONTIN) 100 mg capsule Take 2 capsules by mouth three times a day for 90 days. ergocalciferol 50,000 unit capsule (VITAMIN D2, DRISDOL) Take 1 capsule by mouth one time a week. Use as directed. pantoprazole DR (PROTONIX) 40 mg tablet Take 40 mg by mouth two times a day. amitriptyline (ELAVIL) 25 mg tablet Take 25 mg by mouth daily at bedtime. scopolamine (TRANSDERM-SCOP) patch 1.5 mg/72 hr (delivers 1 mg over 3 days) Apply 1 Patch as directed every 72 hours. sucralfate (CARAFATE) 1 gram tablet Take 1 g by mouth four times daily. metoclopramide HCl (REGLAN) 5 mg tablet Take 1 tablet by mouth four times daily. insulin needles, DISPOSABLE, (PEN NEEDLE) 31 gauge x 5/16 Use as Directed for Insulin injection Lancets Test blood sugar(s) 1 times daily. Dx: Type 2 DM - Uncontrolled E11.65 Insulin: No No current facility-administered medications on file prior to visit. Social History Social History Tobacco Use Smoking status: Former Current packs/day: 0.00 Average packs/day: 1.5 packs/day for 25.0 years (37.5 ttl pk-yrs) Types: Cigarettes Start date: 02/04/1999 Quit date: 02/05/2024 Years since quittin.2 Vaping Use Vaping status: Never Used Substance Use Topics Alcohol use: Not Currently Drug use: Not Currently Frequency: 3.0 times per week Types: Marijuana Comment: smokes and uses edibles Review of Symptoms REVIEW OF SYSTEMS SEE HPI EXAM: BP 115/79 Pulse 109 Wt 72 kg (158 lb 11.7 oz) General Appearance: Well appearing, alert, in no acute distress, well-hydrated, well nourished. Lungs: Lungs clear to auscultation. No wheezing, rhonchi, rales.. Heart: RRR without murmur, gallop, or rubs. No ectopy. Health Maintenance List Depression Screening Never done Anxiety Screening Never done Pneumococcal Vaccine(1 of 2 - PCV) Never done Urine Albumin:Creatinine Ratio due on 10/15/2024 Medicare Advantage Annual Wellness Visit Never done Diabetic Foot Exam due on 02/07/2025 HbA1C due on 04/04/2025 Influenza Vaccine(Season Ended) due on 07/09/2025 Dilated Retinal Exam due on 10/27/2025 LDL Cholesterol due on 11/20/2025 Annual PCP Team Chronic Disease Visit due on 01/25/2026 DTaP,Tdap,Td Vaccine(2 - Td or Tdap) due on 10/15/2033 Hepatitis C Screening Completed HIV Screening Completed Covid-19 Vaccine Completed Hepatitis B Vaccine Discontinued ASSESSMENT/PLAN: 1. Dental infection - ICD9: 522.4, ICD10: K04.7 (primary diagnosis) - AMOXICILLIN 875 MG TABLET 2. Screening for depression - ICD9: V79.0, ICD10: Z13.31 - DEPRESSION SCREENING 3. Encounter for screening examination for other mental health and behavioral disorders - ICD9: V79.8, ICD10: Z13.39 - ANXIETY SCREENING 4. Medication management - ICD9: V58.69, ICD10: Z79.899 - COMPREHENSIVE METABOLIC PANEL 5. Elevated LDL cholesterol level - ICD9: 272.0, ICD10: E78.00 - LIPID PANEL, NONFASTING 6. Diabetes 1.5, managed as type 2 (HCC) - ICD9: 250.00, ICD10: E13.9 - Uncontrolled -Follow up with Dr. Hernandez in 2 weeks as scheduled - ALBUMIN/CREATININE RATIO, URINE Austin Camarena APRN.SHIPPING ASSOCIATE Allergies As of Date: 04/30/2025 (No Known Allergies) Date Reviewed: 04/30/2025 Reviewed by: Lisseth Morel MA - Fully Assessed Reason for (more content not included)... Normal [facility] metabolic 2000 panelon 04-30-2025 Albumin [Mass/Vol] 4.4 g/dL 3.9 - 4.9 g/dL [facility] ALP [Catalytic activity/Vol] 157 U/L High 38 - 113 U/L [facility] ALT [Catalytic activity/Vol] 18 U/L 10 - 54 U/L [facility] Anion gap [Moles/Vol] 15 mmol/L 8 - 15 mmol/L [facility] AST [Catalytic activity/Vol] 32 U/L 14 - 40 U/L [facility] Bilirubin [Mass/Vol] 0.2 mg/dL 0.2 - 1 .3 mg/dL [facility] Calcium [Mass/Vol] 10.5 mg/dL High 8.5 - 10. 2 mg/dL [facility] Chloride [Moles/Vol] 98 mmol/L 98 - 10 7 mmol/L [facility] CO2 [Moles/Vol] 21 mmol/L Low 22 - 30 mmol/L [facility] Creatinine [Mass/Vol] 1.32 mg/dL High 0.73 - 1.22 mg/dL [facility] GFR/1.73 sq M.predicted among non-blacks MDRD (S/P/Bld) [Vol rate/Area] 70 mL/min/{1.73_m2} - PINF [facility] Comment on above: Estimated Glomerular Filtration Rate (eGFR) is calculated using the 2020 CKD-EPI creatinine equation. This equation utilizes serum creatinine, sex, and age as parameters. The creatinine assay has traceable calibration to isotope dilution-mass spectrometry. Refer to KDIGO guidelines for clinical interpretation. In patients with unstable renal function, e.g. those with acute kidney injury, the eGFR may not accurately reflect actual GFR. Glucose [Mass/Vol] 368 mg/dL High 74 - 99 mg/dL [facility] Comment on above: The [place] Diabete s Association (ADA) provides guidance for cutoff values for fasting glucose and random glucose. The ADA defines fasting as no caloric intake for at least 8 hours. Fasting plasma glucose results between 100 to 125 mg/dL indicate increased risk for diabetes (prediabetes). Fasting plasma glucose results greater than or equal to 126 mg/dL meet the criteria for diagnosis of diabetes. In the absence of unequivocal hyperglycemia, results should be confirmed by repeat testing. In a patient with classic symptoms of hyperglycemia or hyperglycemic crisis, random plasma glucose results greater than or equal to 200 mg/dL meet the criteria for diagnosis of diabetes. Reference: Standards of Medical Care in Diabetes 2016, [place] Diabetes Association. Diabetes Care. 2016.39(Suppl 1). Potassium [Moles/Vol] 5.6 mmol/L High 3.7 - 5.1 mmol/L [facility] Protein [Mass/Vol] 8.4 g/dL High 6.3 - 8.0 g/dL [facility] Sodium [Moles/Vol] 134 mmol/L Low 136 - 144 mmol/L [facility] Urea nitrogen [Mass/Vol] 33 mg/dL High 9 - 24 mg/dL [facility] Albumin [Mass/Vol] 4.4 g/dL Normal 3.9-4.9 [facility] Comment on above: Order Comment: Speci men Type: BLOOD SPECIMENOrdering Facility: [facility] Address: [address] [place] [address] Performed By: #### 2 4323-8, LIPNF ####[facility] LABCLIA [id number] [place] [address] [place] ALP [Catalytic activity/Vol] 157 U/L High 38-113 [facility] Comment on above: Order Comment: Ruthi men Type: BLOOD SPECIMENOrdering Facility: [facility] Address: [address] [place] [address] Performed By: #### 2 4323-8, LIPNF ####[facility] LABCLIA [id number] [facility] [address] [place] [address] [place] ALT [Catalytic activity/Vol] 18 U/L Normal 10-54 [facility] Comment on above: Order Comment: Speci men Type: BLOOD SPECIMENOrdering Facility: [facility] Address: [address] [place] [address] Performed By: #### 2 4323-8, LIPNF ####[facility] LABCLIA [id number] [facility] [place] [id number] [place] Anion gap [Moles/Vol] 15 mmol/L Normal 8-15 [facility] Comment on above: Order Comment: Speci men Type: BLOOD SPECIMENOrdering Facility: [facility] Address: [address] [place] [address] Performed By: #### 2 4323-8, LIPNF ####[facility] LABCLIA [id number] [place] [address] [place] AST [Catalytic activity/Vol] 32 U/L Normal 14-40 [facility] Comment on above: Order Comment: Speci men Type: BLOOD SPECIMENOrdering Facility: [facility] Address: [address] [place] [address] Performed By: #### 2 4323-8, LIPNF ####[facility] LABCLIA [id number] [place] [address] [place] Bilirubin [Mass/Vol] 0.2 mg/dL Normal 0.2-1.3 [facility] Comment on above: Order Comment: Speci men Type: BLOOD SPECIMENOrdering Facility: [facility] Address: [address] [place] [address] Performed By: #### 2 4323-8, LIPNF ####[facility] LABCLIA [id number] [place] [id number] [place] Calcium [Mass/Vol] 10.5 mg/dL High 8.5-10.2 [facility] Comment on above: Order Comment: Speci men Type: BLOOD SPECIMENOrdering Facility: [facility] Address: [address] [place], [place] [address] Performed By: #### 2 4323-8, LIPNF ####[facility] LABCLIA [id number] [facility] [id number] [address] [place] Chloride [Moles/Vol] 98 mmol/L Normal 98-107 [facility] Comment on above: Order Comment: Speci men Type: BLOOD SPECIMENOrdering Facility: [facility] Address: [address] [place], [place] [address] Performed By: #### 2 4323-8, LIPNF ####[facility] LABCLIA [id number] [facility] [address], [facility] [place] CO2 [Moles/Vol] 21 mmol/L Low 22-30 [facility] Comment on above: Order Comment: Speci men Type: BLOOD SPECIMENOrdering Facility: [facility] Address: [address] [place], [place] [address] Performed By: #### 2 4323-8, LIPNF ####[facility] LABCLIA [id number] [place] [id number] [place] Creatinine [Mass/Vol] 1.32 mg/dL High 0.73-1.22 [facility] Comment on above: Order Comment: Speci men Type: BLOOD SPECIMENOrdering Facility: [facility] Address: [address] [place], [place] [address] Performed By: #### 2 4323-8, LIPNF ####[facility] LABCLIA [id number] [facility] [place] [id number] [place] Creatinine and Glomerular filtration rate.predicted panel (S/P/Bld) 70 mL/min/1.73m??? Normal >=60 [facility] Comment on above: Order Comment: Speci men Type: BLOOD SPECIMENOrdering Facility: [facility] Address: [address] [place] [address] Result Comment: Beverly mated Glomerular Filtration Rate (eGFR) is calculated using the 2020 CKD-EPI creatinine equation. This equation utilizes serum creatinine, sex, and age as parameters. The creatinine assay has traceable calibration to isotope dilution-mass spectrometry. Refer to KDIGO guidelines for clinical interpretation. In patients with unstable renal function, e.g. those with acute kidney injury, the eGFR may not accurately reflect actual GFR. Performed By: #### 2 4323-8, LIPNF ####[facility] LABCLIA [id number] [place] [address] [place] Glucose [Mass/Vol] 368 mg/dL High 74-99 [facility] Comment on above: Order Comment: Specsebastian mendoza Type: BLOOD SPECIMENOrdering Facility: [facility] Address: [address] [place] [address] Result Comment: The [place] Diabetes Association (ADA) provides guidance for cutoff values for fasting glucose and random glucose. The ADA defines fasting as no caloric intake for at least 8 hours. Fasting plasma glucose results between 100 to 125 mg/dL indicate increased risk for diabetes (prediabetes). Fasting plasma glucose results greater than or equal to 126 mg/dL meet the criteria for diagnosis of diabetes. In the absence of unequivocal hyperglycemia, results should be confirmed by repeat testing. In a patient with classic symptoms of hyperglycemia or hyperglycemic crisis, random plasma glucose results greater than or equal to 200 mg/dL meet the criteria for diagnosis of diabetes. Reference: Standards of Medical Care in Diabetes 2016, [place] Diabetes Association. Diabetes Care. 2016.39(Suppl 1). Performed By: #### 2 4323-8, LIPNF ####[facility] LABCLIA [id number] [place] [id number] [place] Potassium [Moles/Vol] 5.6 mmol/L High 3.7-5.1 [facility] Comment on above: Order Comment: Se mendoza Type: BLOOD SPECIMENOrdering Facility: [facility] Address: [address] [place] [address] Performed By: #### 2 4323-8, LIPNF ####[facility] LABCLIA [id number] [address] [address] [place] Protein [Mass/Vol] 8.4 g/dL High 6.3-8.0 [facility] Comment on above: Order Comment: Speci men Type: BLOOD SPECIMENOrdering Facility: [facility] Address: [address] [place] [address] Performed By: #### 2 4323-8, LIPNF ####[facility] LABCLIA [id number] [place] [address] [place] Sodium [Moles/Vol] 134 mmol/L Low 136-144 [facility] Comment on above: Order Comment: Speci men Type: BLOOD SPECIMENOrdering Facility: [facility] Address: [address] [place] [address] Performed By: #### 2 4323-8, LIPNF ####[facility] LABCLIA [id number] [place] [address] [place] Urea nitrogen [Mass/Vol] 33 mg/dL High 9-24 [facility] Comment on above: Order Comment: Speci men Type: BLOOD SPECIMENOrdering Facility: [facility] Address: [address] [place] [address] Performed By: #### 2 4323-8, LIPNF ####[facility] LABCLIA [id number] [place] [address] [place] LIPID PANEL, NONFASTINGon Cholesterol [Mass/Vol] 227 mg/dL High NINF - 200 mg/dL [facility] Comment on above: <200 mg/dL, Desirabl e 200-239 mg/dL, Borderline high >239 mg/dL, High HDL Cholesterol, Nonfasting 39 mg/dL Low 39 - PINF mg/dL [facility] Comment on above: 40-59 mg/dL, Accepta ble >59 mg/dL, High: Negative risk factor for coronary heart disease <40 mg/dL, Low: Positive risk factor for coronary heart disease LDL Cholesterol Calculated, Nonfasting 139 mg/dL High NINF - 100 mg/dL [facility] Comment on above: <100 mg/dL, Optimal 100-129 mg/dL, Near optimal/above optimal 130-159 mg/dL, Borderline high 160-189 mg/dL, High >189 mg/dL, Very high Secondary prevention optimal LDL Cholesterol levels are recommended to be <70 mg/dL LDL cholesterol is calculated using the Castro-NIH equation. LDL/HDL Ratio, Nonfasting 3.56 mg/dL High NINF - 2.54 mg/dL [facility] Comment on above: Reference: 1. National Cholesterol Education Program ATP III Guideline At-A-Glance Quick Desk Reference: National Heart, Lung, and Blood [place]. National Institutes of Health. 2001: NIH Publication No. 01-3305. 2. An International Atherosclerosis Society position paper: global recommendations for the management of dyslipidemia: executive summary, Atherosclerosis. 2014: 232(2):410-413. Non HDL Cholesterol, Nonfasting 188 mg/dL High NINF - 130 mg/dL [facility] Comment on above: <130 mg/dL, Optimal 130-159 mg/dL, Near optimal/above optimal 160-189 mg/dL, Borderline high 190-219 mg/dL, High >219 mg/dL, Very high Secondary prevention optimal non HDL Cholesterol levels are recommended to be <100 mg/dL Total Chol/HDL Ratio, Nonfasting 5.82 mg/dL High NINF - 5.10 mg/dL [facility] Triglycerides, Nonfasting 269 mg/dL High NINF - 150 mg/dL [facility] Comment on above: <150 mg/dL, Normal 150-199 mg/dL, Borderline high 200-499 mg/dL, High >499 mg/dL, Very high VLDL Cholesterol, Nonfasting 49 mg/dL High NINF - 30 mg/dL [facility] Cholesterol [Mass/Vol] 227 mg/dL High <200 [facility] Comment on above: Order Comment: Speci men Type: BLOOD SPECIMENOrdering Facility: [facility] Address: [address] [place] [address] Result Comment: <200 mg/dL, Desirable 200-239 mg/dL, Borderline high >239 mg/dL, High Performed By: #### 2 4323-8, LIPNF ####[facility] LABCLIA [id number] [address] HDL CHOLESTEROL, NF 39 mg/dL Low >39 [facility] Comment on above: Order Comment: Se reji Type: BLOOD SPECIMENOrdering Facility: [facility] Address: [address] [place] [address] Result Comment: 40-5 9 mg/dL, Acceptable >59 mg/dL, High: Negative risk factor for coronary heart disease <40 mg/dL, Low: Positive risk factor for coronary heart disease Performed By: #### 2 4323-8, LIPNF ####[facility] LABCLIA [id number] [address] LDL CHOLESTEROL CALCULATED, NF 139 mg/dL High <100 [facility] Comment on above: Order Comment: Se reji Type: BLOOD SPECIMENOrdering Facility: [facility] Address: [address] [place] [address] Result Comment: <100 mg/dL, Optimal 100-129 mg/dL, Near optimal/above optimal 130-159 mg/dL, Borderline high 160-189 mg/dL, High >189 mg/dL, Very high Secondary prevention optimal LDL Cholesterol levels are recommended to be <70 mg/dL LDL cholesterol is calculated using the Castro-NIH equation. Performed By: #### 2 4323-8, LIPNF ####[facility] LABCLIA [id number] [address] LDL/HDL RATIO, NF 3.56 mg/dL High <2.54 [facility] Comment on above: Order Comment: Ruthsebastian mendoza Type: BLOOD SPECIMENOrdering Facility: [facility] Address: [address] [place] [address] Result Comment: Roxy larson: 1. National Cholesterol Education Program ATP III Guideline At-A-Glance Quick Desk Reference: National Heart, Lung, and Blood [place]. National Institutes of Health. 2001: NIH Publication No. 01-3305. 2. An International Atherosclerosis Society position paper: global recommendations for the management of dyslipidemia: executive summary, Atherosclerosis. 2014: 232(2):410-413. Performed By: #### 2 4323-8, LIPNF ####[facility] LABCLIA [id number] [place] [address] [place] NON HDL CHOL, NF 188 mg/dL High <130 [facility] Comment on above: Order Comment: Speci men Type: BLOOD SPECIMENOrdering Facility: [facility] Address: [address] [place] [address] Result Comment: <130 mg/dL, Optimal 130-159 mg/dL, Near optimal/above optimal 160-189 mg/dL, Borderline high 190-219 mg/dL, High >219 mg/dL, Very high Secondary prevention optimal non HDL Cholesterol levels are recommended to be <100 mg/dL Performed By: #### 2 4323-8, LIPNF ####[facility] LABCLIA [id number] [place] [address] [place] T CHOL/HDL RATIO NF 5.82 mg/dL High <5.10 [facility] Comment on above: Order Comment: Speci men Type: BLOOD SPECIMENOrdering Facility: [facility] Address: [address] [place] [address] Performed By: #### 2 4323-8, LIPNF ####[facility] LABCLIA [id number] [place] [address] [place] TRIGLYCERIDES, NF 269 mg/dL High <150 [facility] Comment on above: Order Comment: Speci men Type: BLOOD SPECIMENOrdering Facility: [facility] Address: [address] [place] [address] Result Comment: <150 mg/dL, Normal 150-199 mg/dL, Borderline high 200-499 mg/dL, High >499 mg/dL, Very high Performed By: #### 2 4323-8, LIPNF ####[facility] LABCLIA [id number] [place] [id number] [place] VLDL CHOLESTEROL, NF 49 mg/dL High <30 [facility] Comment on above: Order Comment: Speci men Type: BLOOD SPECIMENOrdering Facility: [facility] Address: [address] [place] [address] Performed By: #### 2 4323-8, LIPNF ####[facility] LABCLIA [id number] [place] [address] [place] No Panel Informationon 04-30 Interpretation and review of laboratory results Abnormal [facility] Endocrinology Visit Reporton 04-19-2025 Endocrinology Visit Report [facility] [address] [place], [place] [address] OFFICE VISIT Date of Service: 04/19/25 MR#: [id number] Acct: [id number] Name: WESTON GAMEZ Rep #: [id number] : 1985 Provider: JIE phelan Age/Sex: 39/M [facility] Status: Signed Intake Vital Signs 01/18/25 13:03 02/06/25 17:10 04/19/25 13:13 Height 5 ft 6 in 5 ft 6 in 5 ft 6 in Weight: 166 lb 8 oz 174 lb 8 oz 160 lb BMI 26.9 28.1 25.8 BP 106/68 167/99 H 115/75 Blood Pressure Location Rt brachial Lt brachial Position Sitting Sitting Respiration 16 Pulse 112 H 94 105 H Pulse Source Monitor Monitor Temp 98.3 F Temp Source Oral Pulse Oximetry (%) 96 100 97 Oxygen Delivery Method room air room air Intake Visit Reasons: 3 M FU Chief Complaint: f/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 Accompanied by: Self Is patient in pain?: No Allergies No Known Allergies Allergy (Verified 04/19/25 13:18) Medications ???Medication ???Instructions ???Recorded ???Confirmed ???Type pen needle, diabetic 32 gauge x #100 ea 03/29/24 04/19/25 Rx 5/32 (BD Ultra-Fine Lizzeth Pen Needle) lisinopril 20 mg tablet 20 mg PO DAILY bp #30 tabs 05/01/2 4 04/19/25 Rx gabapentin 100 mg capsule 200 mg PO TID pain 06/06/24 History insulin pump cartridge,automated #1 ea 07/05/24 04/19/25 Rx dose,BT with controller subcutaneous (Omnipod 5 G6 Intro Kit (Gen 5) subcutaneous cartridge with controller) pantoprazole 40 mg tablet,delayed 40 mg PO BID #60 tabs 08/15/24 Rx release insulin lispro 100 unit/mL 50 unit (0.5 mL) continuous 04/19/25 Rx subcutaneous solution (Humalog subcutaneous infusion .continuous U-100 Insulin) #45 mL buspirone 10 mg tablet 10 mg PO BID 01/18/25 04/19/25 His tory rosuvastatin 5 mg tablet 5 mg PO QHS 01/18/25 04/19/25 Hist ory dicyclomine 10 mg capsule 10 mg PO TID for abdominal pain 04/19/25 Rx #90 caps metoclopramide HCl 5 mg tablet 5 mg PO Q8H PRN PRN nausea and 04/19/25 Rx (Reglan) vomiting #90 tabs sucralfate 1 gram tablet 1 g PO Q6 #120 TABLETS 03/27/25 Rx amitriptyline 50 mg tablet 50 mg PO QHS 04/19/25 04/19/25 His tory blood-glucose sensor (Dexcom G7 #3 ea 04/19/25 04/19/25 Rx Sensor device) dextroamphetamine-amphetam ine 10 1 tab PO BID 04/19/25 04/19/25 His tory mg tablet ergocalciferol (vitamin D2) 1,250 1,250 mcg PO QWEEK 04/19/2504/19 History mcg (50,000 unit) capsule insulin pump cart,auto,BT,G6/7 #10 ea 04/19/25 04/19/25 Rx (Omnipod 5 G6-G7 Pods (Gen 5) subcutaneous cartridge) ziprasidone HCl 20 mg capsule 20 mg PO BID 04/19/25 04/19/25 His tory PFSH Medical History Gastroparesis Former tobacco use Cannabis use disorder Hypertension Schizophrenia Anxiety Depression Migraines Type 2 diabetes mellitus with hyperglycemia Schizo-affective schizophrenia Bipolar 1 disorder Diabetes mellitus Surgical History H/O esophagogastroduodenoscopy No history of previous surgery Family History Mother Diabetes Sister Diabetes Father CVA (cerebral vascular accident) Myocardial infarction Social History household members: spouse Smoking Status: Former smoker pack-years: 10 how long ago did patient quit smoking: Quit 05/2024, prior smoked 1/2 ppd. second hand exposure: No alcohol intake: former substance use type: marijuana HPI HPI Chief Complaint: f/u diabetes Details: WESTON GAMEZ, is a 39 M who presents to the office today for evaluation and management of diabetes. A1C today is 11.3%, increased from 11/22/24 at 10.6%. He has lost 6 lbs since his last appt here on 01/18/25. He is using Omnipod 5 with Dexcom G7. He has not had a pod on for the last couple of days. He states that he was only getting one box/month. My understanding was that he needed a refill on his pods before his shipment from [facility] would arrive. He states that he is no longer receiving pods from [facility]. Noemy report downloaded and reviewed- he is rarely entering carbohydrates, he is not bolusing for elevated blood sugars. He is getting kicked out of automated mode d/t sustained elevations. He denies any significant episode of hypoglycemia that has required assistance from others. He reports financial stressors at home, they are currently down to 1 vehicle. He has to take his brother to work following his appointment. He was instructed to get labs at his lat appt here in January, he has not done so. ROS Const Con (more content not included)... Normal [facility] Laboratory - Hematology and Cell countsOrdered By: Queenie Gonzales on 04-19-2025 HbA1c (Bld) [Mass fraction] 11.3 % High 4.2-6.3 [facility] Emergency Department Summary on 02-06-2025 Emergency Department Summary [facility] Medical Records Department [address] [place] [address] Emergency Department Summary 02/06/25 MR#: [id number] Acct: [id number] Name: WESTON GAMEZ Rep #: [id number] : 1985 39 From: Ludin Sanderson MD PCP: JIE Geller Status:PRE ER Location: ED HPI History of Present Illness Chief Complaint: Other, Pain/Inj Narrative Narrative: 39-year-old male past medical history of diabetes presents with left-sided cheek/facial swelling and left-sided jaw pain that he has had for the last 2 days. He states that he has been to the dentist previously and they were supposed to extract 2 of his teeth in his left lower jaw but have not done so. He tried to call them wanting antibiotics for the swelling that he noticed 2 days ago, but no one has called him back. He might of felt feverish a few days ago, but complains of swelling of his left cheek and pain in his left lower jaw. No difficulty breathing, no difficulty swallowing currently. This is never happened to him before/previously. He quit smoking cigarettes about a month ago. [facility] Medical History Gastroparesis Former tobacco use Cannabis use disorder Hypertension Schizophrenia Anxiety Depression Migraines Type 2 diabetes mellitus with hyperglycemia Schizo-affective schizophrenia Bipolar 1 disorder Diabetes mellitus Home Medications ???Medication ???Instructions ???Recorded ???Last Taken ???Type pen needle, diabetic 32 gauge x #100 ea 03/29/24 Unknown Rx (BD Ultra-Fine Lizzeth Pen Needle) lisinopril 20 mg tablet 20 mg PO DAILY bp #30 tabs 05/01/ 4 Unknown Rx gabapentin 100 mg capsule 200 mg PO TID pain 06/06/24 Unknow n History insulin pump cartridge,automated #1 ea 07/05/24 Unknown Rx dose,BT with controller subcutaneous (Omnipod 5 G6 Intro Kit (Gen 5) subcutaneous cartridge with controller) pantoprazole 40 mg tablet,delayed 40 mg PO BID #60 tabs 08/15/24 Un known Rx release blood-glucose sensor (Dexcom G7 #3 ea 11/22/24 Unknown Rx Sensor device) insulin lispro 100 unit/mL 50 unit (0.5 mL) continuous Unknown Rx subcutaneous solution (Humalog subcutaneous infusion .continuous U-100 Insulin) #45 mL metoclopramide HCl 5 mg tablet 5 mg PO Q8H PRN PRN nausea and Unknown Rx (Reglan) vomiting #90 tabs amitriptyline 25 mg tablet 25 mg PO QHS #30 tabs 01/17/25 Unk nown Rx insulin pump cart,auto,BT,G6/7 #10 ea 01/17/25 Unknown Rx (Omnipod 5 G6-G7 Pods (Gen 5) subcutaneous cartridge) buspirone 10 mg tablet 10 mg PO BID 01/18/25 Unknown Hist ory dextroamphetamine-amphetam ine 5 mg 1 tab PO BID 01/18/25 Unknown Hi story tablet rosuvastatin 5 mg tablet 5 mg PO QHS 01/18/25 Unknown Histo ry ziprasidone HCl 40 mg capsule 40 mg PO BID 01/18/25 Unknown Hist ory sucralfate 1 gram tablet 1 g PO Q6 #120 TABLETS 01/31/25 Un known Rx dicyclomine 10 mg capsule 10 mg PO TID for abdominal pain Unknown Rx #90 caps clindamycin HCl 300 mg capsule 300 mg PO Q6H #40 CAPSULES 5 Unknown Rx (Cleocin HCl) Allergy/AdvReac Type Severity Reaction Status Date / Time No Known Allergies Allergy Verified 02/06/25 17:11 Family History Mother Diabetes Sister Diabetes Father CVA (cerebral vascular accident) Myocardial infarction Surgical History H/O esophagogastroduodenoscopy No history of previous surgery Social History household members: spouse Smoking Status: Former smoker pack-years: 10 how long ago did patient quit smoking: Quit 05/2024, prior smoked 1/2 ppd. second hand exposure: No alcohol intake: former substance use type: marijuana ROS ROS ED ROS Narrative Review of systems positive for subjective fever 2 days ago, left cheek swelling/facial swelling, and left jaw pain secondary to dental caries. No difficulty swallowing, no difficulty breathing. No exacerbating or alleviating factors. EXAM Physical Exam Narrative Exam Narrative: Afebrile. Vital signs noted. Nontoxic-appearing. Cardiovascular examination reveals a regular rate and rhythm. Lungs are clear to auscultation bilaterally. Abdomen soft and nontender. Dental inspection does show dental caries eroded down to the gumline of the bottom left first and second molars. No drooling or trismus. No angioedema of the tongue. No Wilbert angina. Airway is patent. No drooling or trismus. There is induration of the left cheek more in the lower jaw portion, but no noted fluctuance. Const Vital Signs: 02/06/25 17:10 Temperature 98.3 F Temperature Source Oral Pulse Rate 94 (more content not included)... Normal [facility] CNOVon 01-25-2025 [facility] Office Visit (FAMPWS ) -- WESTON GAMEZ ([id number]) 1985 [facility] Date Time Provider Department 01/25/25 4:00 PM [facility] CAMARENA During your visit today, we recorded the following information about you: Pulse Respiration Blood pressure Weight 108/minute 12/minute 124/78 75.9 kg Austin Camarena APRN.[facility] 01/25/2025 3:59 PM Signed Chief Complaint Patient presents with: Medication Follow-up [facility] Weston Gamez is a 39 year old male who presents here today for Above Complaints.. Patient presents for medication follow up. Patient reports he stopped strattera and is seeing psych who placed him on buspar, adderall. Patient seeing psych in [facility]. Past medical history, appointments, medications, allergies reviewed. Previous Medical History PAST MEDICAL HISTORY Diagnosis Date ADHD (attention deficit hyperactivity disorder) Bipolar 1 disorder (HCC) DM (diabetes mellitus), type 2 (HCC) Gastroparesis 02/2024 Previous Surgical History PAST SURGICAL HISTORY Procedure Laterality Date NONE Family History FAMILY HISTORY Problem Relation Age of Onset Hypertension Father Heart Father Hypertension Mother Diabetes Mother No Ocular Disease No Family History Patient Allergies ALLERGIES No Known Allergies Current Medications Current Outpatient Medications on File Prior to Visit Medication Sig rosuvastatin (CRESTOR) 5 mg tablet Take 1 tablet by mouth daily at bedtime. gabapentin (NEURONTIN) 100 mg capsule Take 2 capsules by mouth three times a day for 90 days. ergocalciferol 50,000 unit capsule (VITAMIN D2, DRISDOL) Take 1 capsule by mouth one time a week. Use as directed. atomoxetine (STRATTERA) 40 mg capsule Take 1 capsule by mouth once daily. lisinopril (ZESTRIL) 20 mg tablet Take 1 tablet by mouth once daily. pantoprazole DR (PROTONIX) 40 mg tablet Take 40 mg by mouth two times a day. amitriptyline (ELAVIL) 25 mg tablet Take 25 mg by mouth daily at bedtime. scopolamine (TRANSDERM-SCOP) patch 1.5 mg/72 hr (delivers 1 mg over 3 days) Apply 1 Patch as directed every 72 hours. sucralfate (CARAFATE) 1 gram tablet Take 1 g by mouth four times daily. LANTUS SOLOSTAR U-100 INSULIN 100 unit/mL (3 mL) Inject 12 Units subcutaneously daily at bedtime. insulin lispro 100 unit/mL injection Inject 6 Units subcutaneously three times a day before meals. 3 units with snacks metoclopramide HCl (REGLAN) 5 mg tablet Take 1 tablet by mouth four times daily. insulin needles, DISPOSABLE, (PEN NEEDLE) 31 gauge x 5/16 Use as Directed for Insulin injection blood sugar diagnostic (BLOOD GLUCOSE TEST) test strip Test blood sugar(s) 1 times daily. Dx: Type 2 DM - Uncontrolled E11.65 Insulin: No Lancets Test blood sugar(s) 1 times daily. Dx: Type 2 DM - Uncontrolled E11.65 Insulin: No No current facility-administered medications on file prior to visit. Social History Social History Tobacco Use Smoking status: Former Current packs/day: 0.00 Average packs/day: 1.5 packs/day for 25.0 years (37.5 ttl pk-yrs) Types: Cigarettes Start date: 02/04/1999 Quit date: 02/05/2024 Years since quittin.9 Vaping Use Vaping status: Never Used Substance Use Topics Alcohol use: Not Currently Drug use: Not Currently Frequency: 3.0 times per week Types: Marijuana Comment: smokes and uses edibles Review of Symptoms REVIEW OF SYSTEMS SEE HPI EXAM: BP 124/78 Pulse 108 Resp 12 Wt 75.9 kg (167 lb 5.3 oz) General Appearance: Well appearing, alert, in no acute distress, well-hydrated, well nourished. Health Maintenance List Depression Screening Never done Anxiety Screening Never done Pneumococcal Vaccine(1 of 2 - PCV) Never done Urine Albumin:Creatinine Ratio due on 10/15/2024 Diabetic Foot Exam due on 02/07/2025 Influenza Vaccine(1) due on 05/07/2025 HbA1C due on 04/04/2025 Dilated Retinal Exam due on 10/27/2025 LDL Cholesterol due on 11/20/2025 Annual PCP Team Chronic Disease Visit due on 12/28/2025 DTaP,Tdap,Td Vaccine(2 - Td or Tdap) due on 10/15/2033 Hepatitis C Screening Completed HIV Screening Completed Covid-19 Vaccine Completed Hepatitis B Vaccine Discontinued ASSESSMENT/PLAN: 1. ADHD (attention deficit hyperactivity disorder), predominantly hyperactive impulsive type - ICD9: 314.01, ICD10: F90.1 -Patient now being seen by psych for medication management. Follow up in April for routine follow up for other chronic conditions. Austin Camarena, MEDICATION AIDE.SHIPPING ASSOCIATE Allergies As of Date: 01/25/2025 (No Known Allergies) Date Reviewed: 01/25/2025 Reviewed by: Litzy Casillas LPN - Fully Assessed Reason for Visit: Medication Follow-up [270] Primary Visit Diagnosis:ADHD (attention deficit hyperactivity disorder), predominantly hyperactive impulsive type [F90.1] Prescriptions as of 01/25/2025 - busPIRone (BUSPAR) 10 mg tablet Take 10 mg (more content not included)... Normal [facility] Endocrinology Visit Reporton 01-18-2025 Endocrinology Visit Report [facility] [address] [place], [place] [address] OFFICE VISIT Date of Service: 01/18/25 MR#: [id number] Acct: [id number] Name: WESTON GAMEZ Rep #: [id number] : 1985 Provider: JIE phelan Age/Sex: 39/M Location: [facility] Status: Signed Intake Vital Signs 11/22/24 11:44 01/18/25 13:03 Height 5 ft 6 in 5 ft 6 in Weight: 155 lb 166 lb 8 oz BMI 25.0 26.9 BP 124/80 H 106/68 Blood Pressure Location Lt brachial Rt brachial Position Sitting Sitting Pulse 100 112 H Pulse Source Monitor Monitor Pulse Oximetry (%) 97 96 Oxygen Delivery Method room air room air Intake Visit Reasons: 2 M FU Chief Complaint: f/u diabetes Is patient in pain?: No Allergies No Known Allergies Allergy (Verified 01/18/25 13:05) Medications ???Medication ???Instructions ???Recorded ???Confirmed ???Type pen needle, diabetic 32 gauge x #100 ea 03/29/24 11/22/24 Rx 5/32 (BD Ultra-Fine Lizzeth Pen Needle) lisinopril 20 mg tablet 20 mg PO DAILY bp #30 tabs 05/01/2 4 01/18/25 Rx gabapentin 100 mg capsule 200 mg PO TID pain 06/06/24 History insulin pump cartridge,automated #1 ea 07/05/24 11/22/24 Rx dose,BT with controller subcutaneous (Omnipod 5 G6 Intro Kit (Gen 5) subcutaneous cartridge with controller) pantoprazole 40 mg tablet,delayed 40 mg PO BID #60 tabs 08/15/24 Rx release blood-glucose sensor (Dexcom G7 #3 ea 11/22/24 11/22/24 Rx Sensor device) insulin lispro 100 unit/mL 50 unit (0.5 mL) continuous 01/18/25 Rx subcutaneous solution (Humalog subcutaneous infusion .continuous U-100 Insulin) #45 mL sucralfate 1 gram tablet 1 g PO Q6H #120 tabs 11/29/24 0301/30 Rx metoclopramide HCl 5 mg tablet 5 mg PO Q8H PRN PRN nausea and 01/18/25 Rx (Reglan) vomiting #90 tabs amitriptyline 25 mg tablet 25 mg PO QHS #30 tabs 01/17/25 Rx dicyclomine 10 mg capsule 10 mg PO TID abd pain #90 caps 11/0101/18/25 Rx insulin pump cart,auto,BT,G6/7 #10 ea 01/17/25 Rx (Omnipod 5 G6-G7 Pods (Gen 5) subcutaneous cartridge) buspirone 10 mg tablet 10 mg PO BID 01/18/25 01/18/25 His tory dextroamphetamine-amphetam ine 5 mg 1 tab PO BID 01/18/25 01/18/25 H istory tablet rosuvastatin 5 mg tablet 5 mg PO QHS 01/18/25 01/18/25 Hist ory ziprasidone HCl 40 mg capsule 40 mg PO BID 01/18/25 01/18/25 His tory PFSH Medical History Gastroparesis Former tobacco use Cannabis use disorder Hypertension Schizophrenia Anxiety Depression Migraines Type 2 diabetes mellitus with hyperglycemia Schizo-affective schizophrenia Bipolar 1 disorder Diabetes mellitus Surgical History H/O esophagogastroduodenoscopy No history of previous surgery Family History Mother Diabetes Sister Diabetes Father CVA (cerebral vascular accident) Myocardial infarction Social History household members: spouse Smoking Status: Former smoker pack-years: 10 how long ago did patient quit smoking: Quit 05/2024, prior smoked 1/2 ppd. second hand exposure: No alcohol intake: former substance use type: marijuana HPI HPI Chief Complaint: f/u diabetes Details: WESTON GAMEZ, is a 39 M who presents to the office today for evaluation and management of diabetes. A1C on 11/22/24 was 10.6%, GMI improved today at 8.1%. He has gained 11 lbs since that time. Glooko report downloaded and reviewed- he continues to under reporting carbs, he is working to improve this. He is frequently getting kicked out of automated mode resulting in prolonged elevation of blood sugars. He has been going to the gym at least once daily. He is on a statin and ACEI. He is due for labs. Denies any acute concerns. ROS Const Constitutional: Positive for weight change (gain ); No fatigue ENT ENT: No dizziness/vertigo Cardio Cardiology: No chest pain at rest, chest pain with exertion, shortness of breath or palpitations Skin Skin: No wounds Endo Endocrine: Positive for weight change (gain ); No fatigue Exam Const General: cooperative, healthy appearing, comfortable and no acute distress Nutritional Appearance: average body habitus Orientation: alert, awake and oriented x3 HENMT Head: normal to inspection Ears: hearing grossly normal bilaterally Nose: external nose normal Face and sinus: normal facial exam Eyes General: appearance normal, both eyes and all related structures Alignment and Position: alignment normal Sclera: sclerae normal Neck Neck: nor (more content not included)... Normal [facility] 25(OH)D3 [facility] 2024 25-hydroxyvitamin D3 [Mass/Vol] 11.8 ng/mL Low 31.0-80.0 [facility] Comment on above: Order Comment: Se mendoza Type: URINE SPECIMEN Ordering Facility: [facility] Address: [address] [place] [address] Result Comment: Clas sification of 25 [place] Vitamin D status: Deficiency/Insufficiency: < or = 30 ng/ml. Sufficiency/Optimal Levels: 31-80 ng/mL Toxicity: > 100 ng/mL. Test performed by chemiluminescent immunoassay. Performed By: #### L [id number] #### [facility] CLIA [id number] [address] [place] [address] [place] Bilirub Conj [facility] Bilirubin.conjugated [Mass/Vol] 0.1 mg/dL Normal <0.3 [facility] Comment on above: Order Comment: Se mendoza Type: BLOOD SPECIMENOrdering Facility: [facility] Address: [address] [place] [address] Performed By: #### 1 5152-2, 74690-6 ####[facility] LABORATORYCLIA [id number] [place] [address] [place] CBC W Auto Differential pane l (Bld)on 01-05-2025 Basophils (Bld) [#/Vol] 0.07 10*3/uL Normal <0.11 [facility] Comment on above: Order Comment: Se mendoza Type: BLOOD SPECIMENOrdering Facility: [facility] Address: [address] [place] [address] Performed By: #### 5 7021-8 ####[facility] MILLTOWNCLIA [id number] [place] [address] [place] Basophils/100 WBC (Bld) 0.7 % Normal [facility] Comment on above: Order Comment: Speci men Type: BLOOD SPECIMENOrdering Facility: [facility] Address: [address] [place] [address] Performed By: #### 5 7021-8 ####[facility] [id number] [place] [address] [place] Differential cell count method Nom (Bld) Auto Normal [facility] Comment on above: Order Comment: Speci men Type: BLOOD SPECIMENOrdering Facility: [facility] Address: [address] [place] [address] Performed By: #### 5 7021-8 ####[facility] [id number] [place] [address] [place] Eosinophils (Bld) [#/Vol] 0.26 10*3/uL Normal <0.46 [facility] Comment on above: Order Comment: Speci men Type: BLOOD SPECIMENOrdering Facility: [facility] Address: [address] [place] [address] Performed By: #### 5 7021-8 ####[facility] [id number] [place] [address] [place] Eosinophils/100 WBC (Bld) 2.7 % Normal [facility] Comment on above: Order Comment: Speci men Type: BLOOD SPECIMENOrdering Facility: [facility] Address: [address] [place] [address] Performed By: #### 5 7021-8 ####[facility] [id number] [place] [address] [place] Erythrocyte distribution width (RBC) [Ratio] 13.7 % Normal 11.5-15.0 [facility] Comment on above: Order Comment: Speci men Type: BLOOD SPECIMENOrdering Facility: [facility] Address: [address] [place] [address] Performed By: #### 5 7021-8 ####[facility] HOSPITALNCNOLANA [id number] [place] [address] [place] Hematocrit (Bld) [Volume fraction] 39.5 % Normal 39.0-51.0 [facility] Comment on above: Order Comment: Speci men Type: BLOOD SPECIMENOrdering Facility: [facility] Address: [address] [place] [address] Performed By: #### 5 7021-8 ####[facility] HOSPITALNCNOLANA [id number] [place] [address] [place] Hemoglobin (Bld) [Mass/Vol] 12.7 g/dL Low 13.0-17.0 [facility] Comment on above: Order Comment: Speci men Type: BLOOD SPECIMENOrdering Facility: [facility] Address: [address] [place] [address] Performed By: #### 5 7021-8 ####[facility] HOSPITALNCLIA [id number] [place] [address] [place] Immature granulocytes (Bld) [#/Vol] 10*3/uL Normal <0.10 [facility] Comment on above: Order Comment: Speci men Type: BLOOD SPECIMENOrdering Facility: [facility] Address: [address] [place] [address] Performed By: #### 5 7021-8 ####[facility] HOSPITALNCLIA [id number] [place] [address] [place] Immature granulocytes/100 WBC (Bld) 0.2 % Normal [facility] Comment on above: Order Comment: Speci men Type: BLOOD SPECIMENOrdering Facility: [facility] Address: [address] [place] [address] Performed By: #### 5 7021-8 ####[facility] HOSPITALNCLIA [id number] [place] [address] [place] Lymphocytes (Bld) [#/Vol] 2.72 10*3/uL Normal 1.00-4.00 [facility] Comment on above: Order Comment: Speci men Type: BLOOD SPECIMENOrdering Facility: [facility] Address: [address] [place] [address] Performed By: #### 5 7021-8 ####[facility] HOSPITALNCNOLAN [id number] [place] [address] [place] Lymphocytes/100 WBC (Bld) 27.7 % Normal [facility] Comment on above: Order Comment: Speci men Type: BLOOD SPECIMENOrdering Facility: [facility] Address: [address] [place] [address] Performed By: #### 5 7021-8 ####[facility] HOSPITALNCLIA [id number] [place] [address] [place] MCH (RBC) [Entitic mass] 28.8 pg Normal 26.0-34.0 [facility] Comment on above: Order Comment: Speci men Type: BLOOD SPECIMENOrdering Facility: [facility] Address: [address] [place] [address] Performed By: #### 5 7021-8 ####[facility] HOSPITALNCLIA [id number] [place] [address] [place] MCHC (RBC) [Mass/Vol] 32.2 g/dL Normal 30.5-36.0 [facility] Comment on above: Order Comment: Speci men Type: BLOOD SPECIMENOrdering Facility: [facility] Address: [address] [place] [address] Performed By: #### 5 7021-8 ####[facility] HOSPITALNCLIA [id number] [place] [address] [place] MCV (RBC) [Entitic vol] 89.6 fL Normal 80.0-100.0 [facility] Comment on above: Order Comment: Speci men Type: BLOOD SPECIMENOrdering Facility: [facility] Address: [address] [place] [address] Performed By: #### 5 7021-8 ####[facility] HOSPITALNCLIA [id number] [place] [address] [place] Monocytes (Bld) [#/Vol] 0.84 10*3/uL Normal <0.87 [facility] Comment on above: Order Comment: Speci men Type: BLOOD SPECIMENOrdering Facility: [facility] Address: [address] [place] [address] Performed By: #### 5 7021-8 ####[facility] HOSPITALNCLIA [id number] [place] [address] [place] Monocytes/100 WBC (Bld) 8.6 % Normal [facility] Comment on above: Order Comment: Speci men Type: BLOOD SPECIMENOrdering Facility: [facility] Address: [address] [place] [address] Performed By: #### 5 7021-8 ####[facility] HOSPITALNCLIA [id number] [place] [address] [place] Neutrophils (Bld) [#/Vol] 5.90 10*3/uL Normal 1.45-7.50 [facility] Comment on above: Order Comment: Speci men Type: BLOOD SPECIMENOrdering Facility: [facility] Address: [address] [place] [address] Performed By: #### 5 7021-8 ####[facility]OMENTOWNCLIA [id number] [place] [address] [place] Neutrophils/100 WBC (Bld) 60.1 % Normal [facility] Comment on above: Order Comment: Speci men Type: BLOOD SPECIMENOrdering Facility: [facility] Address: [address] [place] [address] Performed By: #### 5 7021-8 ####[facility]ALAWSTEPHANELIA [id number] [place] [address] [place] Nucleated RBC (Bld) [#/Vol] 10*3/uL Normal <0.01 [facility] Comment on above: Order Comment: Speci men Type: BLOOD SPECIMENOrdering Facility: [facility] Address: [address] [place] [address] Performed By: #### 5 7021-8 ####[facility] HOSPITALSTEPHANEA [id number] [place] [address] [place] Nucleated RBC/100 WBC (Bld) [Ratio] 0.0 /100 WBC Normal [facility] Comment on above: Order Comment: Speci men Type: BLOOD SPECIMENOrdering Facility: [facility] Address: [address] [place] [address] Performed By: #### 5 7021-8 ####[facility] HOSPITALSTEPHANELIA [id number] [place] [address] [place] Platelet mean volume (Bld) [Entitic vol] 10.3 fL Normal 9.0-12.7 [facility] Comment on above: Order Comment: Speci men Type: BLOOD SPECIMENOrdering Facility: [facility] Address: [address] [place] [address] Performed By: #### 5 7021-8 ####[facility] HOSPITALNCLIA [id number] [place] [address] [place] Platelets (Bld) [#/Vol] 336 10*3/uL Normal 150-400 [facility] Comment on above: Order Comment: Speci men Type: BLOOD SPECIMENOrdering Facility: [facility] Address: [address] [place] [address] Performed By: #### 5 7021-8 ####[facility] HOSPITALNCLIA [id number] [place] [address] [place] RBC (Bld) [#/Vol] 4.41 10*6/uL Normal 4.20-6.00 [facility] Comment on above: Order Comment: Speci men Type: BLOOD SPECIMENOrdering Facility: [facility] Address: [address] [place] [address] Performed By: #### 5 7021-8 ####[facility] HOSPITALLIA [id number] [place] [address] [place] WBC (Bld) [#/Vol] 9.81 10*3/uL Normal 3.70-11.00 [facility] Comment on above: Order Comment: Speci men Type: BLOOD SPECIMENOrdering Facility: [facility] Address: [address] [place] [address] Performed By: #### 5 7021-8 ####[facility] UR[facility] HOSPITALLIA [id number] [place] [address] [place] Comprehensive metabolic 2000 panelon 01-05-2025 Albumin [Mass/Vol] 4.3 g/dL Normal 3.9-4.9 [facility] Comment on above: Order Comment: Speci men Type: BLOOD SPECIMENOrdering Facility: [facility] Address: [address] [place] [address] Performed By: #### 1 5152-2, 80365-5 ####[facility] LABORATORYCLIA [id number] [place] [address] [place] ALP [Catalytic activity/Vol] 125 U/L High 38-113 [facility] Comment on above: Order Comment: Speci men Type: BLOOD SPECIMENOrdering Facility: [facility] Address: [address] [place] [address] Performed By: #### 1 5152-2, ####[facility]ORATORYCLIA [id number] [place] [address] [place] ALT With P-5'-P [Catalytic activity/Vol] 50 U/L Normal 10-54 [facility] Comment on above: Order Comment: Speci men Type: BLOOD SPECIMENOrdering Facility: [facility] Address: [address] [place] [address] Performed By: #### 1 5152-2, ####[facility]ORATORYCLIA [id number] [place] [address] [place] Anion gap [Moles/Vol] 12 mmol/L Normal 8-15 [facility] Comment on above: Order Comment: Speci men Type: BLOOD SPECIMENOrdering Facility: [facility] Address: [address] [place] [address] Performed By: #### 1 5152-2, ####[facility]ORATORYCLIA [id number] [place] [address] [place] AST With P-5'-P [Catalytic activity/Vol] 68 U/L High 14-40 [facility] Comment on above: Order Comment: Speci men Type: BLOOD SPECIMENOrdering Facility: [facility] Address: [address] [place] [address] Performed By: #### 1 5152-2, ####[facility]ORATORYCLIA [id number] [place] [address] [place] Bilirubin [Mass/Vol] 0.2 mg/dL Normal 0.2-1.3 [facility] Comment on above: Order Comment: Speci men Type: BLOOD SPECIMENOrdering Facility: [facility] Address: [address] [place] [address] Performed By: #### 1 5152-2, ####[facility]ORATORYCLIA [id number] [place] [address] [place] Calcium [Mass/Vol] 10.1 mg/dL Normal 8.5-10.2 [facility] Comment on above: Order Comment: Speci men Type: BLOOD SPECIMENOrdering Facility: [facility] Address: [address] [place] [address] Performed By: #### 1 515-2, ####[facility]ORATORYCLIA [id number] [place] [address] [place] Chloride [Moles/Vol] 103 mmol/L Normal 98-107 [facility] Comment on above: Order Comment: Speci men Type: BLOOD SPECIMENOrdering Facility: [facility] Address: [address] [place] [address] Performed By: #### 1 5152, ####[facility] LABORATORYCLIA [id number] [place] [address] [place] CO2 [Moles/Vol] 25 mmol/L Normal 22-30 [facility] Comment on above: Order Comment: Speci men Type: BLOOD SPECIMENOrdering Facility: [facility] Address: [address] [place] [address] Performed By: #### 1 5152-2, ####[facility]ORATORYCLIA [id number] [place] [address] [place] Creatinine [Mass/Vol] 0.89 mg/dL Normal 0.73-1.22 [facility] Comment on above: Order Comment: Speci men Type: BLOOD SPECIMENOrdering Facility: [facility] Address: [address] [place] [address] Performed By: #### 1 5152-2, ####[facility]ORATORYCLIA [id number] [place] [address] [place] Creatinine and Glomerular filtration rate.predicted panel (S/P/Bld) 112 mL/min/1.73m??? Normal >=60 [facility] Comment on above: Order Comment: Se mendoza Type: BLOOD SPECIMENOrdering Facility: [facility] Address: [address] [place] [address] Result Comment: Beverly mated Glomerular Filtration Rate (eGFR) is calculated using the 2020 CKD-EPI creatinine equation. This equation utilizes serum creatinine, sex, and age as parameters. The creatinine assay has traceable calibration to isotope dilution-mass spectrometry. Refer to KDIGO guidelines for clinical interpretation. In patients with unstable renal function, e.g. those with acute kidney injury, the eGFR may not accurately reflect actual GFR. Performed By: #### 1 5152-2, 71971-5 ####[facility] HOSPITALCLIA [id number] [place] [address] [place] Glucose [Mass/Vol] 190 mg/dL High 74-99 [facility] Comment on above: Order Comment: Se mendoza Type: BLOOD SPECIMENOrdering Facility: [facility] Address: [address] [place] [address] Result Comment: The [place] Diabetes Association (ADA) provides guidance for cutoff values for fasting glucose and random glucose. The ADA defines fasting as no caloric intake for at least 8 hours. Fasting plasma glucose results between 100 to 125 mg/dL indicate increased risk for diabetes (prediabetes). Fasting plasma glucose results greater than or equal to 126 mg/dL meet the criteria for diagnosis of diabetes. In the absence of unequivocal hyperglycemia, results should be confirmed by repeat testing. In a patient with classic symptoms of hyperglycemia or hyperglycemic crisis, random plasma glucose results greater than or equal to 200 mg/dL meet the criteria for diagnosis of diabetes. Reference: Standards of Medical Care in Diabetes 2016, [place] Diabetes Association. Diabetes Care. 2016.39(Suppl 1). Performed By: #### 1 5152-2, 24580-8 ####[facility] LABORATORYCLIA [id number] [place] [id number] [place] Potassium [Moles/Vol] 4.3 mmol/L Normal 3.7-5.1 [facility] Comment on above: Order Comment: Speci men Type: BLOOD SPECIMENOrdering Facility: [facility] Address: [address] [facility] [place] [address] Performed By: #### 1 5152-2, 42002-5 ####[facility] LABORATORYCLIA [id number] [address] [place] Protein [Mass/Vol] 7.5 g/dL Normal 6.3-8.0 [facility] Comment on above: Order Comment: Speci men Type: BLOOD SPECIMENOrdering Facility: [facility] Address: [address] [place] [address] Performed By: #### 1 5152-2, 16987-6 ####[facility] LABORATORYCLIA [id number] [place] [address] [place] Sodium [Moles/Vol] 140 mmol/L Normal 136-144 [facility] Comment on above: Order Comment: Speci men Type: BLOOD SPECIMENOrdering Facility: [facility] Address: [address] [place] [address] Performed By: #### 1 5152-2, 48470-6 ####[facility] LABORATORYCLIA [id number] [place] [address] [place] Urea nitrogen [Mass/Vol] 20 mg/dL Normal 9-24 [facility] Comment on above: Order Comment: Speci men Type: BLOOD SPECIMENOrdering Facility: [facility] Address: [address] [place] [address] Performed By: #### 1 5152-2, 21365-0 ####[employer] [facility] LABORATORYCLIA [id number] [place] [address] [place] HAV IgM Ser Qlon 01-05-2025 HAV IgM Ql (S) Negative Normal Negative [facility] Comment on above: Order Comment: Speci men Type: BLOOD SPECIMENOrdering Facility: [facility] Address: [address] [place] [address] Result Comment: No e vidence of recent infection with Hepatitis A virus. Performed By: #### 3 1201-7, 5195-3, 41689-7, 41135-9, 41084-7 ####[facility] LABCLIA [id number] [address] [place] [address] [place] HBV core IgM Ser Qlon 2024 HBV core IgM Ql (S) Negative Normal Negative [facility] Comment on above: Order Comment: Speci men Type: BLOOD SPECIMENOrdering Facility: [facility] Address: [address] [place] [address], [place] [address] Result Comment: No e vidence of recent infection with Hepatitis B virus. Should recent infection be suspected, repeat testing may be considered 3-4 weeks after this draw. Performed By: #### 3 1201-7, 5195-3, 12488-7, 04651-8, 69189-7 ####[facility] LABCLIA [id number] [address] [address] [place] HBV surface Ag Ser Qlon 12-10 HBV surface Ag Ql (S) Negative Normal Negative [facility] Comment on above: Order Comment: Speci men Type: BLOOD SPECIMENOrdering Facility: [facility] Address: [address] [place] [address], [place] [address] Performed By: #### 3 1201-7, 5195-3, 83688-6, 09976-7, 14638-2 ####[facility] LABCLIA [id number] [address] [place] [address] [place] HCV Ab Ser Qlon 01-05-2025 HCV Ab Ql (S) Negative Normal Negative [facility] Comment on above: Order Comment: Speci men Type: BLOOD SPECIMENOrdering Facility: [facility] Address: [address] [place] [address], [place] [address] Result Comment: The result suggests no evidence of active infection with Hepatitis C virus. Should recent infection be suspected, repeat testing may be considered 4-6 weeks after this draw. Performed By: #### 1 6128-1 ####[facility] LABCLIA [id number] [address] [address] [place] HIV 1+2 Ab IA Qlon 5 HIV 1 and 2 Ab IA.rapid Nom (S/P/Bld) Normal [facility] Comment on above: Order Comment: Speci men Type: BLOOD SPECIMENOrdering Facility: [facility] Address: [address] [place] [address] Result Comment: Test not indicated. Performed By: #### 3 1201-7, 5195-3, 41689-2, 27677-6, 23436-3 ####[facility] LABIA [id number] [place] [address] [place] HIV 1+2 Ab+HIV1 p24 Ag IA Ql Non-Reactive Normal Nonreactive [facility] Comment on above: Order Comment: Speci men Type: BLOOD SPECIMENOrdering Facility: [facility] Address: [address] [place] [address] Performed By: #### 3 1201-7, 5195-3, 11945-2, 77099-7, 70950-2 ####[facility] [id number] [place] [address] [place] HIV immunoassay testing algorithm interpretation (S/P/Bld) [Interp] Normal [facility] Comment on above: Order Comment: Speci men Type: BLOOD SPECIMENOrdering Facility: [facility] Address: [address] [place] [address] Result Comment: No e vidence of HIV-1 or HIV-2 infection. Should recent infection be suspected, repeat testing may be considered 2-3 weeks after this draw. [place] Rev. Code 3701.243(E): This information has been disclosed to you from confidential records protected from disclosure by state law. ???You shall make no further disclosure of this information without the specific, written, and informed release of the individual to whom it pertains or as otherwise permitted by state law. A general authorization for the release of medical or other information is not sufficient for the purpose of the release of HIV test results or diagnoses. Performed By: #### 3 1201-7, 5195-3, 48523-9, 12527-1, 76030-6 ####[facility] LABCLIA [id number] [place] [address] [place] HbA1c (Bld)on 01-05-2025 Average glucose Estimated from glycated hemoglobin (Bld) [Mass/Vol] 220 mg/dL Normal [facility] Comment on above: Order Comment: Speci men Type: BLOOD SPECIMEN [facility]ing [facility] Address: [address] [place] [address] Result Comment: eAG: (Estimated average glucose) is a calculated value from HgbA1c and is ocean import representative of the average blood glucose level in the last 2-3 month period. Performed By: #### 5 5454-3 #### [facility] CLIA [id number] [address] [place] [address] [place] HbA1c (Bld) [Mass fraction] 9.3 % High 4.3-5.6 [facility] Comment on above: Order Comment: Speci [facility] Type: BLOOD SPECIMEN [facility]ing [facility] Address: [address] [place] [address] Result Comment: [place] Diabetes Association guidelines indicate that patients with HgbA1c in the range 5.7-6.4% are at increased risk for development of diabetes, and intervention by lifestyle modification may be beneficial. HgbA1c greater or equal to 6.5% is considered diagnostic of diabetes. Performed By: #### 5 5454-3 #### [facility] CLIA [id number] [address] [place] [id number] [place] Reagin and Treponema pallidu m IgG and IgM [Interp]on 01-05-2025 T. pallidum IgG+IgM IA Ql (S) Non-Reactive Normal Nonreactive [facility] Comment on above: Order Comment: Ruthi [facility] Type: BLOOD SPECIMENOrdering Facility: [facility] Address: [address] [place] [address] Performed By: #### 3 1201-7, 5195-3, 40875-0, 42652-7, 17483-5 ####[facility] LABCLIA [id number] [place] [address] [place] Reagin+T pallidum IgG+IgM Se rPl-Impon 01-05-2025 Reagin and Treponema pallidum IgG and IgM [Interp] Cannot exclude recent Treponemal infection if specimen collected within 7-10 days after appearance of suspect lesions or 2-3 weeks after an exposure. Clinical correlation is required. Normal [facility] Comment on above: Order Comment: Speci men Type: BLOOD SPECIMENOrdering Facility: [facility] Address: [address] [place] [address], [place] [address] Performed By: #### 3 1201-7, 5195-3, 86968-3, 77089-9, 17545-3 ####[facility] LABCLIA [id number] [place] [address] [place] T3 SerPl-mCncon 01-05-2025 T3 [Mass/Vol] 140 ng/dL Normal 79-165 [facility] Comment on above: Order Comment: Speci men Type: URINE SPECIMEN [facility]ing Facility: [facility] Address: [address] [place] [address] Performed By: #### L [id number] #### [facility] CLIA [id number] [address] [place] [address] [place] T3Free SerPl-mCncon 01-05-20 25 Free T3 [Mass/Vol] 3.4 pg/mL Normal 2.3-4.1 [facility] Comment on above: Order Comment: Speci men Type: URINE SPECIMEN Ordering Facility: [facility] Address: [address] [place] [address] Performed By: #### L [id number] #### [facility] CLIA [id number] [address] [place] [address] [place] T4 Free SerPl-mCncon 025 Free T4 [Mass/Vol] 1.1 ng/dL Normal 0.9-1.7 [facility] Comment on above: Order Comment: Speci men Type: URINE SPECIMEN Ordering Facility: [facility] Address: [address] [place] [address] Performed By: #### L [id number] #### [facility] CLIA [id number] [address] [place] [address] [place] T4 SerPl-mCncon 01-05-2025 T4 [Mass/Vol] 7.7 ug/dL Normal 5.5-10.2 [facility] Comment on above: Order Comment: Speci men Type: URINE SPECIMEN Ordering Facility: [facility] Address: [address] [place] [address] Performed By: #### L [id number] #### [facility] CLIA [id number] [address] [place] [address] [place] TSH SerPl-aCncon 01-05-2025 TSH Qn 1.020 m[IU]/L Normal 0.270-4.200 [facility] Comment on above: Order Comment: Speci men Type: URINE SPECIMEN Ordering Facility: [facility] Address: [address] [place] [address] Performed By: #### L [id number] #### [facility] CLIA [id number] [address] [place] [address] [place] CNOVon 12-28-2024 CNOV Office Visit (MADHAV ) -- WESTON GAMEZ ([id number]) 1985 M T Date Time Provider Department 12/28/24 10:20 AM KNOBLE, AUSTIN FAMPWS During your visit today, we recorded the following information about you: Pulse Blood pressure Weight 94/minute 128/84 69.4 kg Austin Camarena APRN.TESS 12/28/2024 12:05 PM Signed Chief Complaint No chief complaint on file. HPI Weston Gamez is a 39 year old male who presents here today for Above Complaints.. Patient presents for follow up for ADHD. Reports no improvement in symptoms from Str[place]. Would like to discuss stimulant options. Past medical history, appointments, medications, allergies reviewed. Previous Medical History PAST MEDICAL HISTORY Diagnosis Date ADHD (attention deficit hyperactivity disorder) Bipolar 1 disorder (HCC) DM (diabetes mellitus), type 2 (HCC) Gastroparesis 02/2024 NEGATIVE MEDICAL HISTORY Previous Surgical History PAST SURGICAL HISTORY Procedure Laterality Date NONE Family History FAMILY HISTORY Problem Relation Age of Onset Hypertension Father Heart Father Hypertension Mother Diabetes Mother No Ocular Disease No Family History Patient Allergies ALLERGIES No Known Allergies Current Medications Current Outpatient Medications on File Prior to Visit Medication Sig atomoxetine (STRATTERA) 40 mg capsule Take 1 capsule by mouth once daily. lisinopril (ZESTRIL) 20 mg tablet Take 1 tablet by mouth once daily. pantoprazole DR (PROTONIX) 40 mg tablet Take 40 mg by mouth two times a day. amitriptyline (ELAVIL) 25 mg tablet Take 25 mg by mouth daily at bedtime. scopolamine (TRANSDERM-SCOP) patch 1.5 mg/72 hr (delivers 1 mg over 3 days) Apply 1 Patch as directed every 72 hours. sucralfate (CARAFATE) 1 gram tablet Take 1 g by mouth four times daily. LANTUS SOLOSTAR U-100 INSULIN 100 unit/mL (3 mL) Inject 12 Units subcutaneously daily at bedtime. insulin lispro 100 unit/mL injection Inject 6 Units subcutaneously three times a day before meals. 3 units with snacks gabapentin (NEURONTIN) 100 mg capsule Take 2 capsules by mouth three times a day for 90 days. rosuvastatin (CRESTOR) 5 mg tablet Take 1 tablet by mouth daily at bedtime. metoclopramide HCl (REGLAN) 5 mg tablet Take 1 tablet by mouth four times daily. insulin needles, DISPOSABLE, (PEN NEEDLE) 31 gauge x 5/16 Use as Directed for Insulin injection blood sugar diagnostic (BLOOD GLUCOSE TEST) test strip Test blood sugar(s) 1 times daily. Dx: Type 2 DM - Uncontrolled E11.65 Insulin: No Lancets Test blood sugar(s) 1 times daily. Dx: Type 2 DM - Uncontrolled E11.65 Insulin: No No current facility-administered medications on file prior to visit. Social History Social History Tobacco Use Smoking status: Former Current packs/day: 0.00 Average packs/day: 1.5 packs/day for 25.0 years (37.5 ttl pk-yrs) Types: Cigarettes Start date: 02/04/1999 Quit date: 02/05/2024 Years since quittin.8 Vaping Use Vaping status: Never Used Substance Use Topics Alcohol use: Not Currently Drug use: Not Currently Frequency: 3.0 times per week Types: Marijuana Comment: smokes and uses edibles Review of Symptoms REVIEW OF SYSTEMS SEE HPI EXAM: BP 145/84 Pulse 94 Wt 69.4 kg (153 lb) General Appearance: Well appearing, alert, in no acute distress, well-hydrated, well nourished. Lungs: Lungs clear to auscultation. No wheezing, rhonchi, rales.. Heart: RRR without murmur, gallop, or rubs. No ectopy. Health Maintenance List Depression Screening Never done Anxiety Screening Never done Pneumococcal Vaccine(1 of 2 - PCV) Never done Urine Albumin:Creatinine Ratio due on 10/15/2024 Influenza Vaccine(1) due on 05/07/2025 Diabetic Foot Exam due on 02/07/2025 HbA1C due on 02/18/2025 Dilated Retinal Exam due on 10/27/2025 LDL Cholesterol due on 11/20/2025 Annual PCP Team Chronic Disease Visit due on 12/11/2025 DTaP,Tdap,Td Vaccine(2 - Td or Tdap) due on 10/15/2033 Hepatitis C Screening Completed HIV Screening Completed Covid-19 Vaccine Completed Hepatitis B Vaccine Discontinued ASSESSMENT/PLAN: 1. Medication management - ICD9: V58.69, ICD10: Z79.899 (primary diagnosis) - TOXICOLOGY SCREEN, ROUTINE URINE - QUANTITATIVE TOXICOLOGY PANEL, URINE 2. ADHD (attention deficit hyperactivity disorder), predominantly hyperactive impulsive type - ICD9: 314.01, ICD10: F90.1 -Stop Strattera - Start Adderall 10mg XR daily once tox screen results. Austin Camarena APRN.SHIPPING ASSOCIATE Allergies As of Date: 12/28/2024 (No Known Allergies) Date Reviewed: 12/28/2024 Reviewed by: Lisseth Morel MA - Fully Assessed Reason for Visit: Follow Up [171] Primary Visit Diagnosis:Medication management [Z79.899] Other Visit Diagnosis:ADHD (attention deficit hyperactivity disorder), predominantly hyperactive impulsive type [F90.1] Order(s):TOXICOLO (more content not included)... Normal [facility] QUANT TOX PANELon 12-28-2024 8-Izoegyucsp-6,5-Dime thyl-3,3-Diphenylpyrr olidine (EDDP) Confirm (U) [Mass/Vol] <25 Normal <25 [facility] Comment on above: Order Comment: Speci men Type: URINE SPECIMEN Ordering Facility: [facility] Address: [address] [place] [address] Result Comment: 5-Cmvlzzztxh-8,8-binefazo-7,3-diphenylpyrrolidine (EDDP) is a metabolite of methadone. Performed By: #### L [id number] #### [facility] CLIA [id number] [address] [place] [address] [place] 6-Monoacetylmorphine (6-BAL) (U) [Mass/Vol] <5 Normal <5 [facility] Comment on above: Order Comment: Speci men Type: URINE SPECIMEN Ordering Facility: [facility] Address: [address] [place] [address] Result Comment: 6-Mo noacetylmorphine is a metabolite of heroin. Performed By: #### L [id number] #### [facility] CLIA [id number] [address] [place] [address] [place] Amphetamine Confirm (U) [Mass/Vol] <25 Normal <25 [facility] Comment on above: Order Comment: Speci men Type: URINE SPECIMEN Ordering Facility: [facility] Address: [address] [place] [address] Result Comment: Meth ylphenidate does not contain or metabolize to amphetamine. Performed By: #### L [id number] #### [facility] CLIA [id number] [address] [place] [address] [place] Benzoylecgonine Confirm (U) [Mass/Vol] <25 Normal <25 [facility] Comment on above: Order Comment: Speci men Type: URINE SPECIMEN Ordering Facility: [facility] Address: [address] [place] [address] Result Comment: Igor oylecgonine is a metabolite of cocaine. Performed By: #### L [id number] #### [facility] IA [id number] [address] [place] [address] [place] Buprenorphine (U) [Mass/Vol] <5 Normal <5 [facility] Comment on above: Order Comment: Speci men Type: URINE SPECIMEN Ordering Facility: [facility] Address: [address] [place] [address] Result Comment: Bertha ents using transdermal formulations of buprenorphine may yield undetectable buprenorphine and norbuprenorphine urine concentrations. Performed By: #### L [id number] #### [facility] IA [id number] [address] [place] [address] [place] Carboxy tetrahydrocannabinol (U) [Mass/Vol] 75 ng/mL High <10 [facility] Comment on above: Order Comment: Speci men Type: URINE SPECIMEN Ordering Facility: [facility] Address: [address] [place] [address] Result Comment: 11-N dw-7-vfwluyq-tetrahydrocannabinol (ussnf-0-cbtphum-THC) is a metabolite of ayjov-1-pgopcvlbxwdwqabeedsc (THC). Presence of hnsfz-5-moovemr-THC is consistent with use of a THC-containing drug. This test does not differentiate between delta-8 or delta-9 carboxy-THC. Performed By: #### L [id number] #### [facility] CLIA [id number] [address] [place] [address] [place] Codeine Confirm (U) [Mass/Vol] <25 Normal <25 [facility] Comment on above: Order Comment: Speci men Type: URINE SPECIMEN Ordering Facility: [facility] Address: [address] [place] [address] Performed By: #### L [id number] #### [facility] CLIA [id number] [address] [place] [address] [place] fentaNYL Confirm (U) [Mass/Vol] <1 Normal <1 [facility] Comment on above: Order Comment: Speci men Type: URINE SPECIMEN Ordering Facility: [facility] Address: [address] [place] [address] Performed By: #### L [id number] #### [facility] CLIA [id number] [address] [place] [address] [place] HYDROcodone Confirm (U) [Mass/Vol] <25 Normal <25 [facility] Comment on above: Order Comment: Speci men Type: URINE SPECIMEN Ordering Facility: [facility] Address: [address] [place] [address] Performed By: #### L [id number] #### [facility] CLIA [id number] [address] [place] [address] [place] HYDROmorphone Confirm (U) [Mass/Vol] <25 Normal <25 [facility] Comment on above: Order Comment: Speci men Type: URINE SPECIMEN Ordering Facility: [facility] Address: [address] [place] [address] Performed By: #### L [id number] #### [facility] CLIA [id number] [address] [place] [address] [place] MDA, UR <25 Normal <25 [facility] Comment on above: Order Comment: Speci men Type: URINE SPECIMEN Ordering Facility: [facility] Address: [address] [place] [address] Result Comment: 3,4 Methylenedioxyamphetamine is also known as MDA. Performed By: #### L [id number] #### [facility] CLIA [id number] [address] [place] [address] [place] MDEA, UR <25 Normal <25 [facility] Comment on above: Order Comment: Speci men Type: URINE SPECIMEN Ordering Facility: [facility] Address: [address] [place] [address] Result Comment: 3,4 Eiifemndtifmkw-X-tvphxrvkmllnsqap is also known as MDEA. Performed By: #### L [id number] #### [facility] CLIA [id number] [address] [place] [address] [place] MDMA, UR <25 Normal <25 [facility] Comment on above: Order Comment: Speci men Type: URINE SPECIMEN Ordering Facility: [facility] Address: [address] [place] [address] Result Comment: 3,4- Methylenedioxymethamphetamine is also known as MDMA. Performed By: #### L [id number] #### [facility] CLIA [id number] [address] [place] [address] [place] Methadone Confirm (U) [Mass/Vol] <25 Normal <25 [facility] Comment on above: Order Comment: Speci men Type: URINE SPECIMEN Ordering Facility: [facility] Address: [address] [place] [address] Performed By: #### L [id number] #### [facility] CLIA [id number] [address] [place] [address] [place] Methamphetamine Confirm (U) [Mass/Vol] <25 Normal <25 [facility] Comment on above: Order Comment: Speci men Type: URINE SPECIMEN Ordering Facility: [facility] Address: [address] [place] [address] Performed By: #### L [id number] #### [facility] CLIA [id number] [address] [place] [address] [place] Morphine Confirm (U) [Mass/Vol] <25 Normal <25 [facility] Comment on above: Order Comment: Speci men Type: URINE SPECIMEN Ordering Facility: [facility] Address: [address] [place] [address] Performed By: #### L [id number] #### [facility] CLIA [id number] [address] [place] [address] [place] Norbuprenorphine (U) [Mass/Vol] <10 Normal <10 [facility] Comment on above: Order Comment: Speci men Type: URINE SPECIMEN Ordering Facility: [facility] Address: [address] [place] [address] Result Comment: Norb uprenorphine is a metabolite of buprenorphine. Patients using transdermal formulations of buprenorphine may yield undetectable buprenorphine and norbuprenorphine urine concentrations. Performed By: #### L [id number] #### [facility] CLIA [id number] [address] [place] [address] [place] Norfentanyl Confirm (U) [Mass/Vol] <1 Normal <1 [facility] Comment on above: Order Comment: Speci men Type: URINE SPECIMEN Ordering Facility: [facility] Address: [address] [place] [address] Result Comment: Norf entanyl is a metabolite of fentanyl. Performed By: #### L [id number] #### [facility] CLIA [id number] [address] [place] [address] [place] NORHYDROCODONE, UR <25 Normal <25 [facility] Comment on above: Order Comment: Speci men Type: URINE SPECIMEN Ordering Facility: [facility] Address: [address] [place], [place] [id number] Result Comment: Norh ydrocodone is a metabolite of hydrocodone. Performed By: #### L [id number] #### [facility] CLIA [id number] [address] [place], [place] [address] [place] NOROXYCODONE, UR <25 Normal <25 [facility] Comment on above: Order Comment: Speci men Type: URINE SPECIMEN Ordering Facility: [facility] Address: [address] [place] [address] Result Comment: Noro xycodone is a metabolite of oxycodone. Performed By: #### L [id number] #### [facility] CLIA [id number] [address] [place] [address] [place] NOROXYMORPHONE, UR <25 Normal <25 [facility] Comment on above: Order Comment: Speci men Type: URINE SPECIMEN Ordering Facility: [facility] Address: [address] [place] [address] Result Comment: Noro xymorphone is a metabolite of oxymorphone and oxycodone and a minor metabolite of naltrexone and naloxone. Performed By: #### L [id number] #### [facility] CLIA [id number] [address] [place] [address] [place] Nortramadol (U) [Mass/Vol] <25 Normal <25 [facility] Comment on above: Order Comment: Speci men Type: URINE SPECIMEN Ordering Facility: [facility] Address: [address] [place] [address] Result Comment: O-de smethyltramadol is a metabolite of tramadol. Performed By: #### L [id number] #### [facility] CLIA [id number] [address] [place] [address] [place] NOTE, UR TOXICOLOGY PANEL Normal [facility] Comment on above: Order Comment: Speci men Type: URINE SPECIMEN Ordering Facility: [facility] Address: [address] [place] [address] Result Comment: For medical purposes only. Not valid for legal or forensic purposes. This test was developed, and its performance characteristics determined by the [facility] Department of Pathology and Laboratory Medicine. It has not been cleared or approved by the FDA. The [facility] Department of Pathology and Laboratory Medicine is regulated under CLIA as qualified to perform high-complexity testing. This test is used for clinical purposes. It should not be regarded as investigational or for research. Performed By: #### L [id number] #### [facility] CLIA [id number] [address] [place], [place] [address] [place] oxyCODONE Confirm (U) [Mass/Vol] <25 Normal <25 [facility] Comment on above: Order Comment: Speci men Type: URINE SPECIMEN Ordering Facility: [facility] Address: [address] [place] [address] Performed By: #### L [id number] #### [facility] CLIA [id number] [address] [place] [address] [place] oxyMORphone Confirm (U) [Mass/Vol] <25 Normal <25 [facility] Comment on above: Order Comment: Speci men Type: URINE SPECIMEN Ordering Facility: [facility] Address: [address] [place] [address] Performed By: #### L [id number] #### [facility] CLIA [id number] [address] [place] [address] [place] Phencyclidine Confirm (U) [Mass/Vol] <10 Normal <10 [facility] Comment on above: Order Comment: Speci men Type: URINE SPECIMEN Ordering Facility: [facility] Address: [address] [place] [address] Result Comment: Phen cyclidine is also known as PCP. Performed By: #### L [id number] #### [facility] CLIA [id number] [address] [place] [address] [place] PHENTERMINE, UR <25 Normal <25 [facility] Comment on above: Order Comment: Speci men Type: URINE SPECIMEN Ordering Facility: [facility] Address: [address] [place] [address] Performed By: #### L [id number] #### [facility] CLIA [id number] [address] [place], [place] [address] [place] traMADol Confirm (U) [Mass/Vol] <25 Normal <25 [facility] Comment on above: Order Comment: Speci men Type: URINE SPECIMEN Ordering Facility: [facility] Address: [address] [place], [place] [id number] Performed By: #### L [id number] #### [facility] CLIA [id number] [address] [place], [place] [address] [place] SPECIMEN VALIDITY, URINEon 0 2- CREATININE,URINE 288.8 mg/dL Normal 20.0-300.0 [facility] Comment on above: Order Comment: Speci men Type: URINE SPECIMEN Ordering Facility: [facility] Address: [address] [place] [address] Performed By: #### L [id number] #### [facility] CLIA [id number] [address] [place], [place] [address] [place] NITRITES,URINE 52 mg/L Normal <500 [facility] Comment on above: Order Comment: Speci men Type: URINE SPECIMEN Ordering Facility: [facility] Address: [address] [place] [address] Performed By: #### L [id number] #### [facility] CLIA [id number] [address] [place] [address] [place] OXIDANTS,URINE <38 Normal <200 [facility] Comment on above: Order Comment: Speci men Type: URINE SPECIMEN Ordering Facility: [facility] Address: [address] [place] [address] Performed By: #### L [id number] #### [facility] CLIA [id number] [address] [place], [place] [address] [place] pH (U) 5.7 [pH] Normal 4.5-8.0 [facility] Comment on above: Order Comment: Speci men Type: URINE SPECIMEN Ordering Facility: [facility] Address: [address] [place], [place] [address] Performed By: #### L [id number] #### [facility] CLIA [id number] [address] [place], [place] [address] [place] SPEC GRAVITY,UR 1.024 Normal 1.003-1.035 [facility] Comment on above: Order Comment: Speci men Type: URINE SPECIMEN Ordering Facility: [facility] Address: [address] [place] [address] Performed By: #### L [id number] #### [facility] CLIA [id number] [address] [place] [address] [place] SPECIMEN VALIDITY QUALITY Specimen quality results within acceptable limits Normal [facility] Comment on above: Order Comment: Speci men Type: URINE SPECIMEN Ordering Facility: [facility] Address: [address] [place] [address] Performed By: #### L [id number] #### [facility] CLIA [id number] [address] [place] [address] [place] TOXICOLOGY SCREEN, ROUTINE U RINEon 12-28-2024 Amphetamines Confirm (U) [Mass/Vol] Negative Normal Negative [facility] Comment on above: Order Comment: Speci men Type: URINE SPECIMENOrdering Facility: [facility] Address: [address] [place] [address] Result Comment: Cuto ff threshold at 1000 ng/mL. Performed By: #### U TOX2 ####[facility] [id number] [place] [address] [place] BARBITURATES, URINE Negative Normal Negative [facility] Comment on above: Order Comment: Speci men Type: URINE SPECIMENOrdering Facility: [facility] Address: [address] [place] [address] Result Comment: Cuto ff threshold at 200 ng/mL. Performed By: #### U TOX2 ####[facility] [id number] [place] [address] [place] BENZODIAZEPINES, UR Negative Normal Negative [facility] Comment on above: Order Comment: Speci men Type: URINE SPECIMENOrdering Facility: [facility] Address: [address] [place] [address] Result Comment: Cuto ff threshold at 200 ng/mL. Performed By: #### U TOX2 ####[facility] [id number] [place] [address] [place] Cannabinoids Screen Ql (U) Positive Abnormal Negative [facility] Comment on above: Order Comment: Speci men Type: URINE SPECIMENOrdering Facility: [facility] Address: [address] [place] [address] Result Comment: Cuto ff threshold at 50 ng/mL. Performed By: #### U TOX2 ####[facility] [id number] [place] [address] [place] Cocaine Ql (U) Negative Normal Negative [facility] Comment on above: Order Comment: Speci men Type: URINE SPECIMENOrdering Facility: [facility] Address: [address] [place] [address] Result Comment: Cuto ff threshold at 300 ng/mL. Performed By: #### U TOX2 ####[facility] [id number] [place] [address] [place] Ethanol (U) [Mass/Vol] <11 Normal <11 [facility] Comment on above: Order Comment: Speci men Type: URINE SPECIMENOrdering Facility: [facility] Address: [address] [place] [address] Performed By: #### U TOX2 ####[facility] [id number] [place] [address] [place] Opiates Screen Ql (U) Negative Normal Negative [facility] Comment on above: Order Comment: Speci men Type: URINE SPECIMENOrdering Facility: [facility] Address: [address] [place] [address] Result Comment: Cuto ff threshold at 300 ng/mL. Performed By: #### U TOX2 ####[facility] [id number] [address] [place] oxyCODONE cutoff Screen (U) [Mass/Vol] Negative Normal Negative [facility] Comment on above: Order Comment: Speci men Type: URINE SPECIMENOrdering Facility: [facility] Address: [address] [place] [address] Result Comment: Cuto ff threshold at 100 ng/mL. Performed By: #### U TOX2 ####[facility] [id number] [address] [place] Phencyclidine Ql (U) Negative Normal Negative [facility] Comment on above: Order Comment: Speci men Type: URINE SPECIMENOrdering Facility: [facility] Address: [address] [place] [address] Result Comment: Cuto ff threshold at 25 ng/mL. Performed By: #### U TOX2 ####[facility] [id number] [address] [place] CNOVon 12-11-2024 CNOV Office Visit ([facility]BERLYWS ) -- WESTON GAMEZ ([id number]) 1985 [facility] Date Time Provider Department 12/11/24 9:20 AM [facility] During your visit today, we recorded the following information about you: Pulse Respiration Blood pressure Weight 89/minute 14/minute 124/88 70.8 kg Austin Camarena APRN.SHIPPING ASSOCIATE 12/11/2024 9:21 AM Signed Chief Complaint Patient presents with: Follow Up HPI Weston Ann Franco is a 39 year old male who presents here today for Above Complaints.. Patient presents for medication follow up. Started Strattera 2 weeks ago and reports no improvement. Past medical history, appointments, medications, allergies reviewed. Previous Medical History PAST MEDICAL HISTORY Diagnosis Date ADHD (attention deficit hyperactivity disorder) Bipolar 1 disorder (HCC) DM (diabetes mellitus), type 2 (HCC) Gastroparesis 02/2024 NEGATIVE MEDICAL HISTORY Previous Surgical History PAST SURGICAL HISTORY Procedure Laterality Date NONE Family History FAMILY HISTORY Problem Relation Age of Onset Hypertension Father Heart Father Hypertension Mother Diabetes Mother No Ocular Disease No Family History Patient Allergies ALLERGIES No Known Allergies Current Medications Current Outpatient Medications on File Prior to Visit Medication Sig atomoxetine (STRATTERA) 10 mg capsule Take 1 capsule by mouth once daily. pantoprazole DR (PROTONIX) 40 mg tablet Take 40 mg by mouth two times a day. amitriptyline (ELAVIL) 25 mg tablet Take 25 mg by mouth daily at bedtime. scopolamine (TRANSDERM-SCOP) patch 1.5 mg/72 hr (delivers 1 mg over 3 days) Apply 1 Patch as directed every 72 hours. sucralfate (CARAFATE) 1 gram tablet Take 1 g by mouth four times daily. LANTUS SOLOSTAR U-100 INSULIN 100 unit/mL (3 mL) Inject 12 Units subcutaneously daily at bedtime. insulin lispro 100 unit/mL injection Inject 6 Units subcutaneously three times a day before meals. 3 units with snacks gabapentin (NEURONTIN) 100 mg capsule Take 2 capsules by mouth three times a day for 90 days. rosuvastatin (CRESTOR) 5 mg tablet Take 1 tablet by mouth daily at bedtime. metoclopramide HCl (REGLAN) 5 mg tablet Take 1 tablet by mouth four times daily. insulin needles, DISPOSABLE, (PEN NEEDLE) 31 gauge x 5/16 Use as Directed for Insulin injection lisinopril (ZESTRIL) 20 mg tablet blood sugar diagnostic (BLOOD GLUCOSE TEST) test strip Test blood sugar(s) 1 times daily. Dx: Type 2 DM - Uncontrolled E11.65 Insulin: No Lancets Test blood sugar(s) 1 times daily. Dx: Type 2 DM - Uncontrolled E11.65 Insulin: No No current facility-administered medications on file prior to visit. Social History Social History Tobacco Use Smoking status: Former Current packs/day: 0.00 Average packs/day: 1.5 packs/day for 25.0 years (37.5 ttl pk-yrs) Types: Cigarettes Start date: 02/04/1999 Quit date: 02/05/2024 Years since quittin.8 Vaping Use Vaping status: Never Used Substance Use Topics Alcohol use: Not Currently Drug use: Not Currently Frequency: 3.0 times per week Types: Marijuana Comment: smokes and uses edibles Review of Symptoms REVIEW OF SYSTEMS SEE HPI EXAM: BP 124/88 Pulse 89 Resp 14 Wt 70.8 kg (156 lb) General Appearance: Well appearing, alert, in no acute distress, well-hydrated, well nourished.. Health Maintenance List Depression Screening Never done Anxiety Screening Never done Pneumococcal Vaccine(1 of 2 - PCV) Never done Urine Albumin:Creatinine Ratio due on 10/15/2024 Influenza Vaccine(1) due on 05/07/2025 Diabetic Foot Exam due on 02/07/2025 HbA1C due on 02/18/2025 Dilated Retinal Exam due on 10/27/2025 LDL Cholesterol due on 11/20/2025 Annual PCP Team Chronic Disease Visit due on 11/27/2025 DTaP,Tdap,Td Vaccine(2 - Td or Tdap) due on 10/15/2033 Hepatitis C Screening Completed HIV Screening Completed Covid-19 Vaccine Completed HPV Vaccine Aged Out Hepatitis B Vaccine Discontinued ASSESSMENT/PLAN: 1. ADHD (attention deficit hyperactivity disorder), predominantly hyperactive impulsive type - ICD9: 314.01, ICD10: F90.1 (primary diagnosis) - ATOMOXETINE 40 MG CAPSULE 2. Primary hypertension - ICD9: 401.9, ICD10: I10 - Controlled - Recommend home blood pressure monitoring, to bring results to next visit - Encouraged sodium restriction, DASH or Mediterranean diet - Recommend regular aerobic exercise - LISINOPRIL 20 MG TABLET Austin Camarena APRN.SHIPPING ASSOCIATE Allergies As of Date: 12/11/2024 (No Known Allergies) Date Reviewed: 12/11/2024 Reviewed by: Lisseth Morel MA - Fully Assessed Reason for Visit: Follow Up [171] Primary Visit Diagnosis:ADHD (attention deficit hyperactivity disorder), predominantly hyperactive impulsive type [F90.1] Other Visit Diagnosis:Primary hypertension [I10] Order(s):atomoxetine (STRATTERA) 40 mg capsuleTake 1 capsule by (more content not included)... Normal [facility] CNOVon 11-27-2024 CNOV Office Visit (FAMPWS ) -- WESTON GAMEZ ([id number]) 1985 [facility] Date Time Provider Department 11/27/24 4:00 PM AUSTIN CAMARENA During your visit today, we recorded the following information about you: Pulse Respiration Blood pressure Weight 92/minute 14/minute 135/85 70.8 kg Austin Camarena, MEDICATION AIDE.SHIPPING ASSOCIATE 11/27/2024 3:58 PM Signed Chief Complaint Patient presents with: F/U 6 months HPI Weston Gamez is a 39 year old male who presents here today for Above Complaints.. Patient presents for routine follow up. Would like to get on medication for his ADHD, was on ritalin in childhood. Patient reports he has difficulty with focusing on task completion. Past medical history, appointments, medications, allergies reviewed. Previous Medical History PAST MEDICAL HISTORY Diagnosis Date Bipolar 1 disorder (HCC) DM (diabetes mellitus), type 2 (HCC) Gastroparesis 02/2024 NEGATIVE MEDICAL HISTORY Previous Surgical History PAST SURGICAL HISTORY Procedure Laterality Date NONE Family History FAMILY HISTORY Problem Relation Age of Onset Hypertension Father Heart Father Hypertension Mother Diabetes Mother No Ocular Disease No Family History Patient Allergies ALLERGIES No Known Allergies Current Medications Current Outpatient Medications on File Prior to Visit Medication Sig pantoprazole DR (PROTONIX) 40 mg tablet Take 40 mg by mouth two times a day. amitriptyline (ELAVIL) 25 mg tablet Take 25 mg by mouth daily at bedtime. scopolamine (TRANSDERM-SCOP) patch 1.5 mg/72 hr (delivers 1 mg over 3 days) Apply 1 Patch as directed every 72 hours. sucralfate (CARAFATE) 1 gram tablet Take 1 g by mouth four times daily. LANTUS SOLOSTAR U-100 INSULIN 100 unit/mL (3 mL) Inject 12 Units subcutaneously daily at bedtime. insulin lispro 100 unit/mL injection Inject 6 Units subcutaneously three times a day before meals. 3 units with snacks gabapentin (NEURONTIN) 100 mg capsule Take 2 capsules by mouth three times a day for 90 days. rosuvastatin (CRESTOR) 5 mg tablet Take 1 tablet by mouth daily at bedtime. metoclopramide HCl (REGLAN) 5 mg tablet Take 1 tablet by mouth four times daily. insulin needles, DISPOSABLE, (PEN NEEDLE) 31 gauge x 5/16 Use as Directed for Insulin injection lisinopril (ZESTRIL) 20 mg tablet blood sugar diagnostic (BLOOD GLUCOSE TEST) test strip Test blood sugar(s) 1 times daily. Dx: Type 2 DM - Uncontrolled E11.65 Insulin: No Lancets Test blood sugar(s) 1 times daily. Dx: Type 2 DM - Uncontrolled E11.65 Insulin: No No current facility-administered medications on file prior to visit. Social History Social History Tobacco Use Smoking status: Former Current packs/day: 0.00 Average packs/day: 1.5 packs/day for 25.0 years (37.5 ttl pk-yrs) Types: Cigarettes Start date: 02/04/1999 Quit date: 02/05/2024 Years since quittin.8 Vaping Use Vaping status: Never Used Substance Use Topics Alcohol use: Not Currently Drug use: Not Currently Frequency: 3.0 times per week Types: Marijuana Comment: smokes and uses edibles Review of Symptoms REVIEW OF SYSTEMS SEE HPI EXAM: BP 135/85 Pulse 92 Resp 14 Wt 70.8 kg (156 lb) General Appearance: Well appearing, alert, in no acute distress, well-hydrated, well nourished.. Health Maintenance List Depression Screening Never done Anxiety Screening Never done Pneumococcal Vaccine(1 of 2 - PCV) Never done Urine Albumin:Creatinine Ratio due on 10/15/2024 Influenza Vaccine(1) due on 05/07/2025 Diabetic Foot Exam due on 02/07/2025 HbA1C due on 02/18/2025 Annual PCP Team Chronic Disease Visit due on 08/07/2025 Dilated Retinal Exam due on 10/27/2025 LDL Cholesterol due on 11/20/2025 DTaP,Tdap,Td Vaccine(2 - Td or Tdap) due on 10/15/2033 Hepatitis C Screening Completed HIV Screening Completed Covid-19 Vaccine Completed HPV Vaccine Aged Out Hepatitis B Vaccine Discontinued ASSESSMENT/PLAN: 1. ADHD (attention deficit hyperactivity disorder), predominantly hyperactive impulsive type - ICD9: 314.01, ICD10: F90.1 -Follow up in 14 days for re-eval. - ATOMOXETINE 10 MG CAPSULE Austin Camarena APRN.Austin Martinez APRN.SHIPPING ASSOCIATE 11/27/2024 3:46 PM Signed [place] [facility] [address] [place] [address] [facility] [address] [place] [address] [email or web address] [address] [address] [facility] [address], [address] [place] [address] [facility]eb[facility] [address] [place] [address] [employer] [address] [address] [facility] [address] [place] [address] 3 (more content not included)... Normal [facility] 11-24-2024 BIBI Telephone (MADHAV) -- WESTON GAMEZ ([id number]) 1985 [facility] Date Time Provider Department 11/24/24 [facility] During your visit today, we recorded the following information about you: Austin Camarena APRN.SHIPPING ASSOCIATE 11/24/2024 10:52 AM Signed Please let patient know his hgba1c is 10.6. Patient should follow up with endocrinology. His other labs are stable. Lisseth Morel MA 11/24/2024 3:13 PM Signed Pt notified and verbalized understanding Lisseth Morel MA Allergies As of Date: 11/24/2024 (No Known Allergies) Date Reviewed: 10/27/2024 Reviewed by: Prakash Fontana, OD - Fully Assessed Reason for Visit: Results [95] Prescriptions as of 11/24/2024 - pantoprazole DR (PROTONIX) 40 mg tablet Take 40 mg by mouth two times a day. - amitriptyline (ELAVIL) 25 mg tablet Take 25 mg by mouth daily at bedtime. - scopolamine (TRANSDERM-SCOP) patch 1.5 mg/72 hr (delivers 1 mg over 3 days) Apply 1 Patch as directed every 72 hours. - sucralfate (CARAFATE) 1 gram tablet Take 1 g by mouth four times daily. - LANTUS SOLOSTAR U-100 INSULIN 100 unit/mL (3 mL) Inject 12 Units subcutaneously daily at bedtime. - insulin lispro 100 unit/mL injection Inject 6 Units subcutaneously three times a day before meals. 3 units with snacks - gabapentin (NEURONTIN) 100 mg capsule Take 2 capsules by mouth three times a day for 90 days. - rosuvastatin (CRESTOR) 5 mg tablet Take 1 tablet by mouth daily at bedtime. - metoclopramide HCl (REGLAN) 5 mg tablet Take 1 tablet by mouth four times daily. - insulin needles, DISPOSABLE, (PEN NEEDLE) 31 gauge x 5/16 Use as Directed for Insulin injection - lisinopril (ZESTRIL) 20 mg tablet - blood sugar diagnostic (BLOOD GLUCOSE TEST) test strip Test blood sugar(s) 1 times daily. Dx: Type 2 DM - Uncontrolled E11.65 Insulin: No - Lancets Test blood sugar(s) 1 times daily. 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 [place] [address] OFFICE VISIT Date of Service: 11/22/24 MR#: [id number] Acct: [id number] Name: WESTON GAMEZ Rep #: [id number] : 1985 Provider: JIE phelan Age/Sex: 39/M Location: [facility] Status: Signed Intake Vital Signs 07/05/24 10:09 07/30/24 02:02 10/28/24 13:41 11/22/24 11:44 Height 5 ft 6 in 5 ft 6 in 5 ft 6 in 5 ft 6 in Weight: 155 lb BMI 25.0 BP 124/80 H Blood Pressure Location Lt brachial Position Sitting Pulse 100 Pulse Source Monitor Pulse Oximetry (%) 97 Oxygen Delivery Method room air Intake Visit Reasons: 3 M FU R/S 10/04 Chief Complaint: f/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 Accompanied by: Is patient in pain?: No Allergies No Known Allergies Allergy (Verified 11/22/24 11:44) Medications ???Medication ???Instructions ???Recorded ???Confirmed ???Type pen needle, diabetic 32 gauge x #100 ea 03/29/24 11/22/24 Rx 5/32 (BD Ultra-Fine Lizzeth Pen Needle) lisinopril 20 mg tablet 20 mg PO DAILY bp #30 tabs 05/01/24 11/22/24 Rx gabapentin 100 mg capsule 200 mg PO TID pain 06/06/24 11/22/24 History insulin pump cart,automated,BT #10 ea 07/05/24 11/22/24 Rx (Omnipod 5 G6 Pods (Gen 5) subcutaneous cartridge) insulin pump cartridge,automated #1 ea 07/05/24 11/22/24 Rx dose,BT with controller subcutaneous (Omnipod 5 G6 Intro Kit (Gen 5) subcutaneous cartridge with controller) metoclopramide HCl 5 mg tablet 5 mg PO Q8H PRN PRN nausea and 07/29/24 11/22/24 Rx (Reglan) vomiting 7 days #21 tabs amitriptyline 25 mg tablet 25 mg PO QHS #30 tabs 08/01/24 11/22/24 Rx sucralfate 1 gram tablet 1 g PO Q6H #120 tabs 08/01/24 11/22/24 Rx pantoprazole 40 mg tablet,delayed 40 mg PO BID #60 tabs 08/15/24 11/22/24 Rx release dicyclomine 10 mg capsule 10 mg PO TID abd pain #90 caps 10/24/24 11/22/24 Rx blood-glucose sensor (Dexcom G7 #3 ea 11/22/24 11/22/24 Rx Sensor device) insulin lispro 100 unit/mL 50 unit (0.5 mL) continuous 11/22/24 11/22/24 Rx subcutaneous solution (Humalog subcutaneous infusion .continuous U-100 Insulin) #45 mL [facility] Medical History Gastroparesis Former tobacco use Cannabis use disorder Hypertension Schizophrenia Anxiety Depression Migraines Type 2 diabetes mellitus with hyperglycemia Schizo-affective schizophrenia Bipolar 1 disorder Diabetes mellitus Surgical History H/O esophagogastroduodenoscopy No history of previous surgery Family History Mother Diabetes Sister Diabetes Father CVA (cerebral vascular accident) Myocardial infarction Social History household members: spouse Smoking Status: Former smoker pack-years: 10 how long ago did patient quit smoking: Quit 05/2024, prior smoked 1/2 ppd. second hand exposure: No alcohol intake: former substance use type: marijuana HPI HPI Chief Complaint: f/u diabetes Details: WESTON GAMEZ, is a 39 M who presents to the office today for evaluation and management of diabetes. A1C with PCP this past week was 10.6%, increased from 07/05/24 at 8.8%. He has gained 3 lbs since that time. Since his last appt here he started using Omnipod 5. Unfortunately, there was a miscommunication with his insurance provider and he was not able to have his follow up appointments. This has since been resolved. He has been without pods and has not been taking his insulin for several months now. He received pods again and started using yesterday. He appears to have a poor understanding of carbohydrates. He drinks Davon-Aid. BP controlled. Currently taking lisinopril 20 mg once daily. Labs are up to date, elevated liver enzyme and alkaline phosphatase during ER visit d/t complications of gastroparesis. Denies any acute concerns. ROS Const Constitutional: No fatigue, weakness or weight change Cardio Cardiology: No chest pain at rest, chest pain with exertion or shortness of breath Musc Musculoskeletal: No numbness Neuro Neurology: No weakness or numbness Skin Skin: No wounds Endo Endocrine: No fatigue or weight change Exam Const General: cooperative, healthy appearing, comfortable and no acute distress Nutritional Appearance: average body habitus Orientation: alert, awake and oriented x3 HENMT Head: normal to inspection Ears: hearing grossly normal bilaterally Nose: external nose normal Face and sinus: normal facial exam Eyes General: appearance normal, both eyes and all related structures Alignment and Position: alignment nor (more content not included)... Normal [facility] Basic metabolic 2000 panelon 11-20-2024 Anion gap [Moles/Vol] 8 mmol/L Normal 8-15 [facility] Comment on above: Order Comment: Speci men Type: BLOOD SPECIMENOrdering Facility: [facility] Address: [address] [place] [address] Performed By: #### 2 4321-2 ####[facility] [id number] [place] [address] [place] Calcium [Mass/Vol] 9.4 mg/dL Normal 8.5-10.2 [facility] Comment on above: Order Comment: Speci men Type: BLOOD SPECIMENOrdering Facility: [facility] Address: [address] [place] [address] Performed By: #### 2 4321-2 ####[facility] [id number] [place] [address] [place] Chloride [Moles/Vol] 100 mmol/L Normal 98-107 [facility] Comment on above: Order Comment: Speci men Type: BLOOD SPECIMENOrdering Facility: [facility] Address: [address] [place] [address] Performed By: #### 2 4321-2 ####[facility] [id number] [place] [address] [place] CO2 [Moles/Vol] 26 mmol/L Normal 22-30 [facility] Comment on above: Order Comment: Speci men Type: BLOOD SPECIMENOrdering Facility: [facility] Address: [address] [place] [address] Performed By: #### 2 4321-2 ####[facility] [id number] [place] [address] [place] Creatinine [Mass/Vol] 0.93 mg/dL Normal 0.73-1.22 [facility] Comment on above: Order Comment: Se mendoza Type: BLOOD SPECIMENOrdering Facility: [facility] Address: [address] [place] [address] Performed By: #### 2 4321-2 ####[facility] [id number] [place] [address] [place] Creatinine and Glomerular filtration rate.predicted panel (S/P/Bld) 107 mL/min/1.73m??? Normal >=60 [facility] Comment on above: Order Comment: Se mendoza Type: BLOOD SPECIMENOrdering Facility: [facility] Address: [address] [place] [address] Result Comment: Beverly mated Glomerular Filtration Rate (eGFR) is calculated using the 2020 CKD-EPI creatinine equation. This equation utilizes serum creatinine, sex, and age as parameters. The creatinine assay has traceable calibration to isotope dilution-mass spectrometry. Refer to KDIGO guidelines for clinical interpretation. In patients with unstable renal function, e.g. those with acute kidney injury, the eGFR may not accurately reflect actual GFR. Performed By: #### 2 4321-2 ####[facility] [id number] [place] [address] [place] Glucose [Mass/Vol] 268 mg/dL High 74-99 [facility] Comment on above: Order Comment: Se mendoza Type: BLOOD SPECIMENOrdering Facility: [facility] Address: [address] [place] [address] Result Comment: The [place] Diabetes Association (ADA) provides guidance for cutoff values for fasting glucose and random glucose. The ADA defines fasting as no caloric intake for at least 8 hours. Fasting plasma glucose results between 100 to 125 mg/dL indicate increased risk for diabetes (prediabetes). Fasting plasma glucose results greater than or equal to 126 mg/dL meet the criteria for diagnosis of diabetes. In the absence of unequivocal hyperglycemia, results should be confirmed by repeat testing. In a patient with classic symptoms of hyperglycemia or hyperglycemic crisis, random plasma glucose results greater than or equal to 200 mg/dL meet the criteria for diagnosis of diabetes. Reference: Standards of Medical Care in Diabetes 2016, [place] Diabetes Association. Diabetes Care. 2016.39(Suppl 1). Performed By: #### 2 4321-2 ####[facility] MILLWNVLIA [id number] [place] [address] [place] Potassium [Moles/Vol] 4.3 mmol/L Normal 3.7-5.1 [facility] Comment on above: Order Comment: Se mendoza Type: BLOOD SPECIMENOrdering Facility: [facility] Address: [address] [place] [address] Performed By: #### 2 4321-2 ####[facility] [id number] [place] [address] [place] Sodium [Moles/Vol] 134 mmol/L Low 136-144 [facility] Comment on above: Order Comment: Se mendoza Type: BLOOD SPECIMENOrdering Facility: [facility] Address: [address] [place] [address] Performed By: #### 2 4321-2 ####[facility] [id number] [place] [address] [place] Urea nitrogen [Mass/Vol] 20 mg/dL Normal 9-24 [facility] Comment on above: Order Comment: Se mendoza Type: BLOOD SPECIMENOrdering Facility: [facility] Address: [address] [place] [address] Performed By: #### 2 4321-2 ####[facility] [id number] [place] [address] [place] HbA1c (Bld)on 11-20-2024 Average glucose Estimated from glycated hemoglobin (Bld) [Mass/Vol] 258 mg/dL Normal [facility] Comment on above: Order Comment: Speci men Type: URINE SPECIMEN Ordering Facility: [facility] Address: [address] [place] [address] Result Comment: eAG: (Estimated average glucose) is a calculated value from HgbA1c and is ocean import representative of the average blood glucose level in the last 2-3 month period. Performed By: #### L [id number] #### [facility] CLIA [id number] [address] [place] [address] [place] HbA1c (Bld) [Mass fraction] 10.6 % High 4.3-5.6 [facility] Comment on above: Order Comment: Ruthi men Type: URINE SPECIMEN Ordering Facility: [facility] Address: [address] [place] [address] Result Comment: [place] Diabetes Association guidelines indicate that patients with HgbA1c in the range 5.7-6.4% are at increased risk for development of diabetes, and intervention by lifestyle modification may be beneficial. HgbA1c greater or equal to 6.5% is considered diagnostic of diabetes. Performed By: #### L [id number] #### [facility] CLIA [id number] [address] [place] [address] [place] Lipid 1996 panelon 5 Cholesterol [Mass/Vol] 129 mg/dL Normal <200 [facility] Comment on above: Order Comment: Speci men Type: BLOOD SPECIMENOrdering Facility: [facility] Address: [address] [place] [address] Result Comment: <200 mg/dL, Desirable 200-239 mg/dL, Borderline high >239 mg/dL, High Performed By: #### 2 4331-1 ####[facility] [id number] [place] [address] [place] [facility] [id number] [place] [address] [place] Cholesterol in HDL [Mass/Vol] 34 mg/dL Low >39 [facility] Comment on above: Order Comment: Se mendoza Type: BLOOD SPECIMENOrdering Facility: [facility] Address: [address] [place] [address] Result Comment: 40-5 9 mg/dL, Acceptable >59 mg/dL, High: Negative risk factor for coronary heart disease <40 mg/dL, Low: Positive risk factor for coronary heart disease Performed By: #### 2 4331-1 ####[facility] [id number] [address] [id number] [address] Cholesterol in LDL [Mass/Vol] 57 mg/dL Normal <100 [facility] Comment on above: Order Comment: Se mendoza Type: BLOOD SPECIMENOrdering Facility: [facility] Address: [address] [place] [address] Result Comment: <100 mg/dL, Optimal 100-129 mg/dL, Near optimal/above optimal 130-159 mg/dL, Borderline high 160-189 mg/dL, High >189 mg/dL, Very high Secondary prevention optimal LDL Cholesterol levels are recommended to be < 70 mg/dL Performed By: #### 2 4331-1 ####[facility] [id number] [address] [id number] [address] [place] Cholesterol in LDL/Cholesterol in HDL [Mass ratio] 1.68 {ratio} Normal <2.54 [facility] Comment on above: Order Comment: Se men Type: BLOOD SPECIMENOrdering Facility: [facility] Address: [address] [place] [address] Result Comment: Refe fabice: 1. National Cholesterol Education Program ATP III Guideline At-A-Glance Quick Desk Reference: National Heart, Lung, and Blood [place]. National Institutes of Health. 2001: NIH Publication No. 01-3305. 2. An International Atherosclerosis Society position paper: global recommendations for the management of dyslipidemia: executive summary, Atherosclerosis. 2014: 232(2):410-413. Performed By: #### 2 4331-1 ####[facility] LABCLIA [id number] [address] [id number] [place] [address] [place] Cholesterol in VLDL [Mass/Vol] 38 mg/dL High <30 [facility] Comment on above: Order Comment: Speci men Type: BLOOD SPECIMENOrdering Facility: [facility] Address: [address] [place] [address] Performed By: #### 2 4331-1 ####[facility] LABCLIA [id number] [address] [id number] [place] [address] [place] Cholesterol non HDL [Mass/Vol] 95 mg/dL Normal <130 [facility] Comment on above: Order Comment: Se mendoza Type: BLOOD SPECIMENOrdering Facility: [facility] Address: [address] [place] [address] Result Comment: <130 mg/dL, Optimal 130-159 mg/dL, Near optimal/above optimal 160-189 mg/dL, Borderline high 190-219 mg/dL, High >219 mg/dL, Very high Secondary prevention optimal non HDL Cholesterol levels are recommended to be <100 mg/dL Performed By: #### 2 4331-1 ####[facility] LABCLIA [id number] [address] [id number] [place] [address] [place] Cholesterol.total/Cho lesterol in HDL [Mass ratio] 3.79 {ratio} Normal <5.10 [facility] Comment on above: Order Comment: Speci men Type: BLOOD SPECIMENOrdering Facility: [facility] Address: [address] [place] [address] Performed By: #### 2 4331-1 ####[facility] LABCLIA [id number] [address] [id number] [address] STATES [facility] FASTING TIME 10 hrs Normal [facility] Comment on above: Order Comment: Speci men Type: BLOOD SPECIMENOrdering Facility: [facility] Address: [address] [place] [address] Performed By: #### 2 4331-1 ####[facility] LABCLIA [id number] [address] [id number] [place] [address] [place] Triglyceride [Mass/Vol] 188 mg/dL High <150 [facility] Comment on above: Order Comment: Speci men Type: BLOOD SPECIMENOrdering Facility: [facility] Address: [address] [place] [address] Result Comment: <150 mg/dL, Normal 150-199 mg/dL, Borderline high 200-499 mg/dL, High >499 mg/dL, Very high Performed By: #### 2 4331-1 ####[facility] LABCLIA [id number] [address] [id number] [place] [address] [place] 12 Lead EKGon 10-28-2024 12 Lead EKG [facility] Services [address] [place] [address] 12 Lead EKG 10/28/24 1428 MR#: [id number] Acct: [id number] Name: WESTON GAMEZ Rep #: [id number] : 1985 39 From: Galindo Crawley MD Attending Dr: Status: DEP ER Ordering Dr: Ludin Sanderson MD Date: 10/28/24 Location: ED Sex: M AA Admitted: Test Reason : LOW BS Blood Pressure : */* mmHG Vent. Rate : 109 BPM Atrial Rate : 109 BPM P-R Int : 142 ms QRS Dur : 68 ms QT Int : 326 ms P-R-T Axes : 76 -42 43 degrees QTcB Int : 439 ms Sinus tachycardia Left axis deviation Nonspecific ST abnormality Abnormal ECG Confirmed by TRAE IVERSON, GALINDO ([id number]), editor greeting card [employer]UM[employer] SINGH ([id number]) on 10/30/2024 7:05:56 AM Referred By: Confirmed By: GALINDO CRAWLEY MD 10/30/24704 Date Galindo Crawley MD CC: CARBURETOR REBUILDER-C Austin Camarena; Dr. Ludin Sanderson MD Signed Normal [facility] Absolute neutrophil countOrd ered By: Ludin Sanderson on 10-28-2024 Neutrophils (Bld) [#/Vol] 9.8 10*3/uL High 2.0-7.7 [facility] Acetone Serumon 10-28-2024 ACETONE SERUM Negative Normal NEG [facility] Comment on above: Performed By: #### L 500.2500 #### [facility] Laboratory [address] [place] [address], [id number] Acetone [Mass/Vol]Ordered By : Ludin Sanderson on 10-28-2024 Acetone Level Negative NEG [facility] Albumin to globulin ratioOrd ered By: Ludin Sanderson on 10-28-2024 Albumin/Globulin [Mass ratio] 0.8 {ratio} Low 0.9-2.4 [facility] Basic Metabolic Profile (BMP )on 10-28-2024 BUN Normal 7-18 [facility] Comment on above: Result Comment: DUP PER YULIA WALTON Performed By: #### L 500.2500 #### [facility] Laboratory [address] [place], [address] BUN/CRE Normal 10-20 [facility] Comment on above: Result Comment: DUP PER RN LORILI Performed By: #### L 500.2500 #### [facility] Laboratory [address] [place], [address] CA,Total Normal 8.5-10.1 [facility] Comment on above: Result Comment: DUP PER RN LORILI Performed By: #### L 500.2500 #### [facility] Laboratory [address] [place], [address] CL Normal 98-107 [facility] Comment on above: Result Comment: DUP PER RN LORILI Performed By: #### L 500.2500 #### [facility] Laboratory [address] [place], [address] CO2 Normal 21.0-32.0 [facility] Comment on above: Result Comment: DUP PER RN LORILI Performed By: #### L 500.2500 #### [facility] Laboratory [address] [place], [address] CREAT,SERUM Normal 0.70-1.30 [facility] Comment on above: Result Comment: DUP PER RN LORILI Performed By: #### L 500.2500 #### [facility] Laboratory [address] [place], [address] EST GFR Normal >60 [facility] Comment on above: Result Comment: DUP PER RN LORILI Performed By: #### L 500.2500 #### [facility] Laboratory [address] [place], [address] EST GFR - AA Normal >60 [facility] Comment on above: Result Comment: DUP PER RN LORILI Performed By: #### L 500.2500 #### [facility] Laboratory [address] [place], [address] GAP Normal 5-15 [facility] Comment on above: Result Comment: DUP PER RN LORILI Performed By: #### L 500.2500 #### [facility] Laboratory [address] [place], [address] GLU Normal 74-106 [facility] Comment on above: Result Comment: DUP PER RN LORILI Performed By: #### L 500.2500 #### [facility] Laboratory [address] [place], [address] Potassium Normal 3.5-5.1 [facility] Comment on above: Result Comment: DUP PER RN LORILI Performed By: #### L 500.2500 #### [facility] Laboratory [address] [place], [address] Basic Metabolic Profile (BMP) Normal 136-145 [facility] Comment on above: Result Comment: DUP PER RN LORILI Performed By: #### L 500.2500 #### [facility] Laboratory [address] [place], [address] BUN Normal 7-18 [facility] Comment on above: Result Comment: LIPA SE ADDED TO ORDER NUMBER [id number], BMP IS A DUP TO A CMP Performed By: #### L 500.2500 ####[facility] [address] [place], [address] BUN/CRE Normal 10-20 [facility] Comment on above: Result Comment: LIPA SE ADDED TO ORDER NUMBER [id number], BMP IS A DUP TO A CMP Performed By: #### L 500.2500 ####[facility] [address] [place], [address] CA,Total Normal 8.5-10.1 [facility] Comment on above: Result Comment: LIPA SE ADDED TO ORDER NUMBER [id number], BMP IS A DUP TO A CMP Performed By: #### L 500.2500 ####[facility] [address] [place], [address] CL Normal 98-107 [facility] Comment on above: Result Comment: LIPA SE ADDED TO ORDER NUMBER [id number], BMP IS A DUP TO A CMP Performed By: #### L 500.2500 ####[facility] [address] [place], [address] CO2 Normal 21.0-32.0 [facility] Comment on above: Result Comment: LIPA SE ADDED TO ORDER NUMBER [id number], BMP IS A DUP TO A CMP Performed By: #### L 500.2500 ####[facility] [address] [place], [address] CREAT,SERUM Normal 0.70-1.30 [facility] Comment on above: Result Comment: LIPA SE ADDED TO ORDER NUMBER [id number], BMP IS A DUP TO A CMP Performed By: #### L 500.2500 ####[facility] [address] [place], [address] EST GFR Normal >60 [facility] Comment on above: Result Comment: LIPA SE ADDED TO ORDER NUMBER [id number], BMP IS A DUP TO A CMP Performed By: #### L 500.2500 ####[facility] [address] [place], [address] EST GFR - AA Normal >60 [facility] Comment on above: Result Comment: LIPA SE ADDED TO ORDER NUMBER [id number], BMP IS A DUP TO A CMP Performed By: #### L 500.2500 ####[facility] [address] [place], [address] GAP Normal 5-15 [facility] Comment on above: Result Comment: LIPA SE ADDED TO ORDER NUMBER [id number], BMP IS A DUP TO A CMP Performed By: #### L 500.2500 ####[facility] [address] [place], [address] GLU Normal 74-106 [facility] Comment on above: Result Comment: LIPA SE ADDED TO ORDER NUMBER [id number], BMP IS A DUP TO A CMP Performed By: #### L 500.2500 ####[facility] [address] [place], [address] Potassium Normal 3.5-5.1 [facility] Comment on above: Result Comment: LIPA SE ADDED TO ORDER NUMBER [id number], BMP IS A DUP TO A CMP Performed By: #### L 500.2500 ####[facility] [address] [place], [address] Basic Metabolic Profile (BMP) Normal 136-145 [facility] Comment on above: Result Comment: LIPA SE ADDED TO ORDER NUMBER [id number], BMP IS A DUP TO A CMP Performed By: #### L 500.2500 ####[facility] [address] [place], [address] Basophil percentageOrdered B y: Ludin Sanderson on 10-28-2024 Basophils/100 WBC (Bld) 0.5 % 0-1 [facility] Bedside Glucoseon 10-28-2024 FINGERSTICK GLU 274 mg/dL High 74-106 [facility] Comment on above: Result Comment: CORINNA VELEZ OF PATIENT CARE PER NURSING PROTOCOL Performed By: #### L 500.2500 #### [facility] Laboratory [address] [place], [place], [address] Bilirubin Test strip Ql (U)O rdered By: Ludin Sanderson on 10-28-2024 Bilirubin Ql (U) Negative Negative [facility] Bilirubin, totalOrdered By: Ludin Sanderson on 10-28-2024 Bilirubin [Mass/Vol] 0.60 mg/dL 0.20-1.00 [facility] Comment on above: For patients on eltr ombopag therapy, use of Dimension [place] TBIL is not recommended. Blood urea nitrogen (BUN)/cr eatinine ratioOrdered By: Ludin Sanderson on 10-28-2024 Urea nitrogen/Creatinine [Mass ratio] 22.0 mg/mg High 10-20 [facility] CBC W/Diff, Automatedon 12-2 Absolute Lymph 2.59 X10 3/uL Normal 0.83-4.51 [facility] Comment on above: Performed By: #### L 100.0100 ####[facility] [address] [place], [address] Absolute Neut 9.8 X10 3/uL High 2.0-7.7 [facility] Comment on above: Performed By: #### L 100.0100 ####[facility] [address] [place], [address] Basophils/100 WBC (Bld) 0.5 % Normal 0-1 [facility] Comment on above: Performed By: #### L 100.0100 ####[facility] [address] [place], [address] Eosinophils/100 WBC (Bld) 0.3 % Normal 0-5 [facility] Comment on above: Performed By: #### L 100.0100 ####[facility] [address] [place], [address] Erythrocyte distribution width (RBC) [Ratio] 13.5 % Normal 11.6-14.6 [facility] Comment on above: Performed By: #### L 100.0100 ####[facility] [address] [place], [address] Hematocrit (Bld) [Volume fraction] 45.6 % Normal 40-54 [facility] Comment on above: Performed By: #### L 100.0100 ####[facility] [address] [place], [address] Hemoglobin (Bld) [Mass/Vol] 14.9 g/dL Normal 13.0-16.5 [facility] Comment on above: Performed By: #### L 100.0100 ####[facility] [address] [place], [address] IG% 0.500 Normal 0.0-0.9 [facility] Comment on above: Result Comment: IG% - Immature Granulocytes (promyelocytes, myelocytes and metamyelocytes) > 1% indicates that a LEFT SHIFT is Present. Performed By: #### L 100.0100 ####[facility] [address] [place], [address] Lymphocytes/100 WBC (Bld) 19.1 % Normal 19-41 [facility] Comment on above: Performed By: #### L 100.0100 ####[facility] [address] [place], [address] MCH (RBC) [Entitic mass] 28.7 pg Normal 27.0-32.0 [facility] Comment on above: Performed By: #### L 100.0100 ####[facility] [address] [place], [address] MCHC (RBC) [Mass/Vol] 32.7 g/dL Normal 32-36 [facility] Comment on above: Performed By: #### L 100.0100 ####[facility] [address] [place], [address] MCV (RBC) [Entitic vol] 87.9 fL Normal 80-94 [facility] Comment on above: Performed By: #### L 100.0100 ####[facility] [address] [place], [address] Monocytes/100 WBC (Bld) 7.7 % Normal 0-10 [facility] Comment on above: Performed By: #### L 100.0100 ####[facility] [address] [place], [address] Neutrophils/100 WBC (Bld) 71.9 % High 47-70 [facility] Comment on above: Performed By: #### L 100.0100 ####[facility] [address] [place], [address] Nucleated RBC (Bld) [#/Vol] 0 10*3/uL Normal 0-5 [facility] Comment on above: Performed By: #### L 100.0100 ####[facility] [address] [place], [address] Platelet mean volume (Bld) [Entitic vol] 9.5 fL Normal 6.2-12.0 [facility] Comment on above: Performed By: #### L 100.0100 ####[facility] [address] [place], [address] Platelets (Bld) [#/Vol] 466 10*3/uL High 150-450 [facility] Comment on above: Performed By: #### L 100.0100 ####[facility] [address] [place], [address] RBC (Bld) [#/Vol] 5.19 10*6/uL Normal 4.6-6.2 [facility] Comment on above: Performed By: #### L 100.0100 ####[facility] [address] [place], [address] RDW SD 43.4 fl Normal 35.1-43.9 [facility] Comment on above: Performed By: #### L 100.0100 ####[facility] [address] [place], [address] WBC (Bld) [#/Vol] 13.6 10*3/uL High 4.4-11.0 [facility] Comment on above: Performed By: #### L 100.0100 ####[facility] [address] [place], [address] Carbon dioxide measurementOr dered By: Ludin Sanderson on 10-28-2024 CO2 [Moles/Vol] 18.0 mmol/L Low 21.0-32.0 [facility] Chloride measurementOrdered By: Ludin Sanderson on 10-28-2024 Chloride [Moles/Vol] 100 mmol/L 98-107 [facility] Comprehensive Metabolic Prof ilon 10-28-2024 Albumin [Mass/Vol] 4.1 g/dL Normal 3.2-5.0 [facility] Comment on above: Performed By: #### L 500.2500 #### [facility] Laboratory [address] [place], [address] Albumin/Globulin [Mass ratio] 0.8 {ratio} Low 0.9-2.4 [facility] Comment on above: Performed By: #### L 500.2500 #### [facility] Laboratory [address] [place], [address] ALK P 138 U/L High 45-117 [facility] Comment on above: Performed By: #### L 500.2500 #### [facility] Laboratory [address] [place], [address] ALT [Catalytic activity/Vol] 50 U/L Normal 16-61 [facility] Comment on above: Performed By: #### L 500.2500 #### [facility] Laboratory [address] [place], [address] AST [Catalytic activity/Vol] 68 U/L High 15-37 [facility] Comment on above: Result Comment: Mode rate Hemolysis, Result may be falsely increased. Performed By: #### L 500.2500 #### [facility] Laboratory [address] [place], [address] Bilirubin [Mass/Vol] 0.60 mg/dL Normal 0.20-1.00 [facility] Comment on above: Result Comment: For patients on eltrombopag therapy, use of Dimension [place] TBIL is not recommended. Performed By: #### L 500.2500 #### [facility] Laboratory [address] [place], [address] BUN/CRE 22.0 RATIO High 10-20 [facility] Comment on above: Performed By: #### L 500.2500 #### [facility] Laboratory [address] [place], [address] CA,Total 9.6 mg/dL Normal 8.5-10.1 [facility] Comment on above: Performed By: #### L 500.2500 #### [facility] Laboratory [address] [place], [address] Chloride [Moles/Vol] 100 mmol/L Normal 98-107 [facility] Comment on above: Performed By: #### L 500.2500 #### [facility] Laboratory [address] [place], [address] CO2 [Moles/Vol] 18.0 mmol/L Low 21.0-32.0 [facility] Comment on above: Performed By: #### L 500.2500 #### [facility] Laboratory [address] [place], [address] Creatinine [Mass/Vol] 1.32 mg/dL High 0.70-1.30 [facility] Comment on above: Result Comment: The validity of the calculated GFR GFRAA in patients over 70 years has not been determined. Clinical correlation is essential. Performed By: #### L 500.2500 #### [facility] Laboratory [address] [place], [address] ECRCL 67.80 ml/min Normal [facility] Comment on above: Performed By: #### L 500.2500 #### [facility] Laboratory [address] [place], [address] EST GFR - AA 78 mL/min Normal >60 [facility] Comment on above: Result Comment: Afri can Eritrean GFR Calc Performed By: #### L 500.2500 #### [facility] Laboratory [address] [place], [address] GAP 11 Normal 5-15 [facility] Comment on above: Performed By: #### L 500.2500 #### [facility] Laboratory [address] [place], [address] GFR/1.73 sq M.predicted among non-blacks MDRD (S/P/Bld) [Vol rate/Area] 64 mL/min/{1.73_m2} Normal >60 [facility] Comment on above: Result Comment: Non- GFR Calc Performed By: #### L 500.2500 #### [facility] Laboratory [address] [place], [address] Globulin (S) [Mass/Vol] 5.2 g/dL High 2.2-4.2 [facility] Comment on above: Performed By: #### L 500.2500 #### [facility] Laboratory [address] [place], [address] Glucose [Mass/Vol] 282 mg/dL High 74-106 [facility] Comment on above: Result Comment: Gluc ose result greater than or equal to 200 mg/dL suggests DIABETES MELLITUS per A.D.A. criteria. Performed By: #### L 500.2500 #### [facility] Laboratory [address] [place], [address] Potassium [Moles/Vol] 4.4 mmol/L Normal 3.5-5.1 [facility] Comment on above: Result Comment: Mode rate Hemolysis, Result may be falsely increased. Performed By: #### L 500.2500 #### [facility] Laboratory [address] [place], [address] Sodium [Moles/Vol] 129 mmol/L Low 136-145 [facility] Comment on above: Performed By: #### L 500.2500 #### [facility] Laboratory [address] [place], [address] T PROT 9.3 g/dL High 6.4-8.2 [facility] Comment on above: Performed By: #### L 500.2500 #### [facility] Laboratory [address] [place], [address] Urea nitrogen [Mass/Vol] 29 mg/dL High 7-18 [facility] Comment on above: Performed By: #### L 500.2500 #### [facility] Laboratory [address] [place], [address] Emergency Department Summary on 10-28-2024 Emergency Department Summary [facility] Medical Records Department [address] [place] [address] Emergency Department Summary 10/28/24 MR#: [id number] Acct: [id number] Name: WESTON GAMEZ Rep #: [id number] : 1985 39 From: Ludin Sanderson MD PCP: Austin Camarena, CARBURETOR REBUILDER-C Status:REG ER Location: ED HPI HPI - GI History of Present Illness Chief Complaint: Abd Pain Narrative Narrative: 39-year-old male past medical history of bipolar disorder, GERD, gastroparesis, biliary gastritis, sees Dr. Argueta for gastroenterology presents with nausea and vomiting since yesterday evening. His states he tried to eat a sandwich. The last time his gastroparesis acted up on him was 2 weeks ago when he was seen at [facility]. They state that the last time he was here, he had a small tear that had to be fixed by Dr. Argueta from the nausea and vomiting. Patient complains of diffuse abdominal pain since last evening as well as multiple episodes of nausea and vomiting without blood in his emesis. No exacerbating or alleviating factors. [facility] Medical History Gastroparesis Former tobacco use Cannabis use disorder Hypertension Schizophrenia Anxiety Depression Migraines Type 2 diabetes mellitus with hyperglycemia Schizo-affective schizophrenia Bipolar 1 disorder Diabetes mellitus Home Medications ???Medication ???Instructions ???Recorded ???Last Taken ???Type pen needle, diabetic 32 gauge x #100 ea 03/29/24 Unknown Rx (BD Ultra-Fine Lizzeth Pen Needle) insulin lispro 100 unit/mL 6 unit subcut TID dm 03/30/24 Unknown History subcutaneous pen (Humalog KwikPen (U-100) Insulin) lisinopril 20 mg tablet 20 mg PO DAILY bp #30 tabs 05/01/24 Unknown Rx blood-glucose meter,continuous #1 ea 05/04/24 Unknown Rx (Dexcom G7 Medical Geneticist) gabapentin 100 mg capsule 200 mg PO TID pain 06/06/24 Unknown History insulin pump cart,automated,BT #10 ea 07/05/24 Unknown Rx (Omnipod 5 G6 Pods (Gen 5) subcutaneous cartridge) insulin pump cartridge,automated #1 ea 07/05/24 Unknown Rx dose,BT with controller subcutaneous (Omnipod 5 G6 Intro Kit (Gen 5) subcutaneous cartridge with controller) insulin glargine-yfgn 100 unit/mL 12 unit subcut QHS dm 07/29/24 Unknown History (3 mL) subcutaneous pen metoclopramide HCl 5 mg tablet 5 mg PO Q8H PRN PRN nausea and 07/29/24 Unknown Rx (Reglan) vomiting 7 days #21 tabs amitriptyline 25 mg tablet 25 mg PO QHS #30 tabs 08/01/24 Unknown Rx insulin glargine-yfgn 100 unit/mL 16 unit (0.16 mL) subcut QHS #0 mL 08/01/24 Unknown Rx (3 mL) subcutaneous pen insulin lispro 100 unit/mL 50 unit (0.5 mL) continuous 08/01/24 Unknown Rx subcutaneous solution (Humalog subcutaneous infusion .continuous U-100 Insulin) #45 mL sucralfate 1 gram tablet 1 g PO Q6H #120 tabs 08/01/24 Unknown Rx blood-glucose sensor (Dexcom G6 #9 ea 08/03/24 Unknown Rx Sensor device) pantoprazole 40 mg tablet,delayed 40 mg PO BID #60 tabs 08/15/24 Unknown Rx release blood-glucose transmitter (Dexcom #1 ea 10/23/24 Unknown Rx G6 Transmitter device) dicyclomine 10 mg capsule 10 mg PO TID abd pain #90 caps 10/24/24 Unknown Rx Allergy/AdvReac Type Severity Reaction Status Date / Time No Known Allergies Allergy Verified 10/28/24 13:41 Family History Mother Diabetes Sister Diabetes Father CVA (cerebral vascular accident) Myocardial infarction Surgical History H/O esophagogastroduodenoscopy No history of previous surgery Social History household members: spouse Smoking Status: Former smoker pack-years: 10 how long ago did patient quit smoking: Quit 05/2024, prior smoked 1/2 ppd. second hand exposure: No alcohol intake: former substance use type: marijuana ROS ROS ED ROS Narrative Limited secondary to patient condition. Also obtained from . Constitutional: No fever, no chills. HEENT: No sore throat. No neck pain. No loss of vision. No rhinorrhea. Cardiovascular: No chest pain. No palpitations. No pedal edema. Respiratory: No cough, no shortness of breath. Abdominal: Positive diffuse abdominal pain. Multiple episodes of nausea and vomiting since last evening. No gross hematemesis. Genitourinary: No dysuria. No hematuria. Musculoskeletal: No myalgias. No arthralgias. Neurologic: No headaches. No dizziness. No lightheadedness. Skin: No rash. No change in color. Psychiatric: No depression. No anxiety. EXAM Physical Exam Narrative Exam Narrative: Afebrile. Vital signs noted. Nontoxic-appearing. Appears mildly uncomfortable, writhing on bed. Cardiovascular examination reveals a mild tachycardia at (more content not included)... Normal [facility] Eosinophil percentageOrdered By: Ludin Sanderson on 10-28-2024 Eosinophils/100 WBC (Bld) 0.3 % 0-5 [facility] Epithelial cells.squamous LM Ql (Urine sed)Ordered By: Ludin Sanderson on 10-28-2024 Epithelial cells.squamous LM.HPF (Urine sed) [#/Area] 5 /[HPF] 0-5 [facility] Erythrocyte distribution wid th ratioOrdered By: Ludin Sanderson on 10-28-2024 Erythrocyte distribution width (RBC) [Ratio] 13.5 % 11.6-14.6 [facility] Erythrocyte distribution wid th standard deviationOrdered By: Ludin Sanderson on 10-28-2024 Erythrocyte distribution width (RBC) [Entitic vol] 43.4 fL 35.1-43.9 [facility] Estimated glomerular filtrat ion rate (GFR) AmericanOrdered By: Ludin Sanderson on 10-28-2024 Estimated GFR (MDRD) Amer 78 mL/min >60 [facility] Comment on above: GFR Calc Estimation of creatinine devi aranceOrdered By: Ludin Sanderson on 10-28-2024 Estimated Creatinine Clearance Calc 67.80 ml/min [facility] Fine Granular Casts LM.LPF ( Urine sed) [#/Area]Ordered By: Ludin Sanderson on 10-28-2024 Urine Fine Granular Casts 0-5 SEEN /lpf 0-5 [facility] Glomerular filtration rate ( GFR) estimationOrdered By: Ludin Sanderson on 10-28-2024 Estimated GFR (MDRD) Non-Af Amer 64 mL/min >60 [facility] Comment on above: Non- GFR Calc Glucose Ql (U)Ordered By: Kamlesh Sanderson on 10-28-2024 Glucose (U) [Mass/Vol] 1000 mg/dL High Normal [facility] Glucose measurementOrdered B y: Ludin Sanderson on 10-28-2024 Glucose [Mass/Vol] 282 mg/dL High 74-106 [facility] Comment on above: Glucose result great er than or equal to 200 mg/dLsuggests DIABETES MELLITUS per A.D.A. criteria. [facility] deOrdered By: Ludin Sanderson on 10-28-2024 Bedside Glucose (Misc Panel) 274 mg/dL High 74-106 [facility] Comment on above: MANAGEMENT OF PATIEN T CARE PER NURSING PROTOCOL Hematocrit Auto (Bld) [Volum e fraction]Ordered By: Ludin Sanderson on 10-28-2024 Hematocrit (Bld) [Volume fraction] 45.6 % 40-54 [facility] Hemoglobin measurementOrdere d By: Ludin Sanderson on 10-28-2024 Hemoglobin (Bld) [Mass/Vol] 14.9 g/dL 13.0-16.5 [facility] Hyaline casts LM.LPF (Urine sed) [#/Area]Ordered By: Ludin Sanderson on 10-28-2024 Hyaline casts LM Ql (Urine sed) 10-25 SEEN /lpf 0-5 [facility] Immature granulocytes/100 WB C Auto (Bld)Ordered By: Ludin Sanderson on 10-28-2024 Immature granulocytes/100 WBC (Bld) 0.500 % 0.0-0.9 [facility] Comment on above: IG% - Immature Granu locytes (promyelocytes, myelocytes and metamyelocytes) > 1% indicates that a LEFT SHIFT is Present. Ketones Test strip Ql (U)Ord ered By: Ludin Sanderson on 10-28-2024 Ketones Ql (U) 150 mg/dl Abnormal Negative [facility] Comment on above: CRITICAL VALUE *HCRI TICAL VALUE CALLED TO YULIA WHEELER10/28/24 1701 Orlin Perez.RESULTS READ BACK BY SAME. Laboratory - Chemistry and C hemistry - challengeOrdered By: Ludin Sanderson on 10-28-2024 AST [Catalytic activity/Vol] 68 U/L High 15-37 [facility] Comment on above: Moderate Hemolysis, Result may be falsely increased. Lipaseon 10-28-2024 Lipase [Catalytic activity/Vol] 25 U/L Normal 13-75 [facility] Comment on above: Result Comment: Lacey melendez note: LIPASE revised reference range effective 23. New Lipase methodology. Expected to produce lower values than the previous assay method. NEW Reference Range: 13 - 75 U/L Performed By: #### L 500.2500 #### [facility] Laboratory [address] [place], [address] Lipase measurementOrdered By : Ludin Sanderson on 10-28-2024 Lipase [Catalytic activity/Vol] 25 U/L 13-75 [facility] Comment on above: Please note:LIPASE r evised reference range effective 23. New Lipase methodology. Expected to produce lower values than the previous assay method. NEW Reference Range: 13 - 75 U/L Lymphocytes Auto (Unsp spec) [#/Vol]Ordered By: Ludin Sanderson on 10-28-2024 Lymphocytes (Bld) [#/Vol] 2.59 10*3/uL 0.83-4.51 [facility] Lymphocytes/100 WBC Auto (Un sp spec)Ordered By: Ludin Sanderson on 10-28-2024 Lymphocytes/100 WBC (Bld) 19.1 % 19-41 [facility] MCV (mean corpuscular volume ) determinationOrdered By: Ludin Sanderson on 10-28-2024 MCV (RBC) [Entitic vol] 87.9 fL 80-94 [facility] Mean corpuscular hemoglobin (MCH) determinationOrdered By: Ludin Sanderson on 10-28-2024 MCH (RBC) [Entitic mass] 28.7 pg 27.0-32.0 [facility] Mean corpuscular hemoglobin concentration (MCHC) determinationOrdered By: Ludin Sanderson on 10-28-2024 MCHC (RBC) [Mass/Vol] 32.7 g/dL 32-36 [facility] Mean platelet volume determi nationOrdered By: Ludin Sanderson on 10-28-2024 Platelet mean volume (Bld) [Entitic vol] 9.5 fL 6.2-12.0 [facility] Microscopic analysis of urin e for red blood cells (RBC)Ordered By: Ludin Sanderson on 10-28-2024 Urine RBC 50-100 SEEN /hpf 0-5 [facility] Monocyte percentageOrdered B y: Ludin Sanderson on 10-28-2024 Monocytes/100 WBC (Bld) 7.7 % 0-10 [facility] Mucus LM Ql (Urine sed)Order ed By: Ludin Sanderson on 10-28-2024 Mucus Ql (Urine sed) 3+ /hpf [facility] Neutrophil percentageOrdered By: Ludin Sanderson on 10-28-2024 Neutrophils/100 WBC (Bld) 71.9 % High 47-70 [facility] Nitrite Test strip Ql (U)Ord ered By: Ludin Sanderson on 10-28-2024 Nitrite Ql (U) Negative Negative [facility] Nucleated red blood cell per centageOrdered By: Ludin Sanderson on 10-28-2024 Nucleated RBC/100 WBC (Bld) [Ratio] 0 % 0-5 [facility] Platelet countOrdered By: Kamlesh Sanderson on 10-28-2024 Platelets (Bld) [#/Vol] 466 10*3/uL High 150-450 [facility] Potassium measurementOrdered By: Ludin Sanderson on 10-28-2024 Potassium [Moles/Vol] 4.4 mmol/L 3.5-5.1 [facility] Comment on above: Moderate Hemolysis, Result may be falsely increased. Protein Test strip Ql (U)Ord ered By: Ludin Sanderson on 10-28-2024 Protein Ql (U) 100 mg/dl High Negative [facility] RBC Auto (Bld) [#/Vol]Ordere d By: Ludin Sanderson on 10-28-2024 RBC (Bld) [#/Vol] 5.19 10*6/uL 4.6-6.2 [facility] Serum anion gap measurementO rdered By: Ludin Sanderson on 10-28-2024 Anion gap [Moles/Vol] 11 mmol/L 5-15 [facility] Serum globulin measurementOr dered By: Ludin Sanderson on 10-28-2024 Globulin (S) [Mass/Vol] 5.2 g/dL High 2.2-4.2 [facility] Serum or plasma alanine escamilla otransferase (ALT) measurementOrdered By: Ludin Sanderson on 10-28-2024 ALT [Catalytic activity/Vol] 50 U/L 16-61 [facility] Serum or plasma albumin luis carlos urement (mass/volume)Ordered By: Ludin Sanderson on 10-28-2024 Albumin [Mass/Vol] 4.1 g/dL 3.2-5.0 [facility] Serum or plasma alkaline tessy sphatase measurementOrdered By: Ludin Sanderson on 10-28-2024 ALP [Catalytic activity/Vol] 138 U/L High 45-117 [facility] Serum or plasma calcium luis carlos urement (mass/volume)Ordered By: Ludin Sanderson on 10-28-2024 Calcium [Mass/Vol] 9.6 mg/dL 8.5-10.1 [facility] Serum or plasma creatinine m easurement (mass/volume)Ordered By: Ludin Sanderson on 10-28-2024 Creatinine [Mass/Vol] 1.32 mg/dL High 0.70-1.30 [facility] Comment on above: The validity of the calculated GFR & GFRAA in patients over 70 years has not been determined. Clinical correlation is essential. Serum or plasma urea nitroge n measurement (mass/volume)Ordered By: Ludin Sanderson on 10-28-2024 Urea nitrogen [Mass/Vol] 29 mg/dL High 7-18 [facility] Sodium levelOrdered By: Ludin Sanderson on 10-28-2024 Sodium [Moles/Vol] 129 mmol/L Low 136-145 [facility] Total proteinOrdered By: Catina Sanderson on 10-28-2024 Protein [Mass/Vol] 9.3 g/dL High 6.4-8.2 [facility] Urinalysis, Completeon 10-28 BACTERIA 1+ /hpf Normal None Seen [facility] Comment on above: Order Comment: COLLE CTOR TO SPECIFY Performed By: #### L 500.2500 #### [facility] Laboratory [address] [place], [address] CAST,FINE GRAN 0-5 SEEN Normal [address] [place] [address] Comment on above: Order Comment: COLLE CTOR TO SPECIFY Performed By: #### L 500.2500 #### [facility] Laboratory [address] [place], [address] CAST,HYALINE 10-25 SEEN Normal [address] [place] [address] Comment on above: Order Comment: KATHRYN CTOR TO SPECIFY Performed By: #### L 500.2500 #### [facility] Laboratory [address] [place], [address] EPI,SQUAMOUS 5-10 SEEN Normal [address] Comment on above: Order Comment: KATHRYN CTOR TO SPECIFY Performed By: #### L 500.2500 #### [facility] Laboratory [address] [place], [address] Mucus Ql (Urine sed) 3+ /hpf Normal [facility] Comment on above: Order Comment: KATHRYN CTOR TO SPECIFY Performed By: #### L 500.2500 #### [facility] Laboratory [address] [place], [address] RBC 50-100 SEEN Normal [address] Comment on above: Order Comment: KATHRYN CTOR TO SPECIFY Performed By: #### L 500.2500 #### [facility] Laboratory [address] [place], [address] KETONE UR 150 mg/dl Abnormal Negative [facility] Comment on above: Order Comment: COLLE CTOR TO SPECIFY Result Comment: CRIT ICAL VALUE *H CRITICAL VALUE CALLED TO YULIA WHEELER 10/28/24 [address]. RESULTS READ BACK BY SAME. Performed By: #### L 500.2500 #### [facility] Laboratory [address] [place], [address] BILIRUBIN URINE Negative Normal Negative [facility] Comment on above: Order Comment: COLLE CTOR TO SPECIFY Performed By: #### L 500.2500 #### [facility] Laboratory [address] [place], [address] Clarity (U) Sl. Cloudy Normal Clear [facility] Comment on above: Order Comment: COLLE CTOR TO SPECIFY Performed By: #### L 500.2500 #### [facility] Laboratory [address] [place], [address] Color (U) Yellow Normal Yellow [facility] Comment on above: Order Comment: COLLE CTOR TO SPECIFY Performed By: #### L 500.2500 #### [facility] Laboratory [address] [place], [address] GLUCOSE, UR 1000 mg/dl Abnormal Normal [facility] Comment on above: Order Comment: COLLE CTOR TO SPECIFY Performed By: #### L 500.2500 #### [facility] Laboratory [address] [place], [address] LEUK ESTERASE Negative Normal Negative [facility] Comment on above: Order Comment: COLLE CTOR TO SPECIFY Performed By: #### L 500.2500 #### [facility] Laboratory [address] [place], [address] Nitrite Ql (U) Negative Normal Negative [facility] Comment on above: Order Comment: COLLE CTOR TO SPECIFY Performed By: #### L 500.2500 #### [facility] Laboratory [address] [place], [address] OCCULT BLOOD-UR 50 /ul Abnormal Negative [facility] Comment on above: Order Comment: COLLE CTOR TO SPECIFY Performed By: #### L 500.2500 #### [facility] Laboratory [address] [place], [address] pH UR 5.0 Normal 5.0 - 8.0 [facility] Comment on above: Order Comment: KATHRYN CTOR TO SPECIFY Performed By: #### L 500.2500 #### [facility] Laboratory [address] [place], [address] PROT DIPSTX 100 mg/dl Abnormal Negative [facility] Comment on above: Order Comment: KATHRYN CTOR TO SPECIFY Performed By: #### L 500.2500 #### [facility] Laboratory [address] [place], [address] SP.GR. DIPSTX 1.025 Normal 1.002-1.030 [facility] Comment on above: Order Comment: KATHRYN CTOR TO SPECIFY Performed By: #### L 500.2500 #### [facility] Laboratory [address] [place], [address] UROBILI Normal Normal Normal [facility] Comment on above: Order Comment: KATHRYN CTOR TO SPECIFY Performed By: #### L 500.2500 #### [facility] Laboratory [address] [place], [address] WBC 0 SEEN Normal 0-5 [facility] Comment on above: Order Comment: KATHRYN CTOR TO SPECIFY Performed By: #### L 500.2500 #### [facility] Laboratory [address] [place], [address] Urine blood detectionOrdered By: Ludin Sanderson on 10-28-2024 Urine Occult Blood 50 /ul High Negative [facility] Urine clarityOrdered By: Catina Sanderson on 10-28-2024 Clarity (U) Sl. Cloudy Clear [facility] Urine color determinationOrd ered By: Ludin Sanderson on 10-28-2024 Color (U) Yellow Yellow [facility] Urine leukocyte esterase det ection by dipstickOrdered By: Ludin Sanderson on 10-28-2024 Leukocyte esterase Test strip Ql (U) Negative Negative [facility] Urine pHOrdered By: Ludin krueger on 10-28-2024 pH (U) 5.0 [pH] 5.0 - 8.0 [facility] Urine sediment bacteria coun t by microscopy (number/high power field)Ordered By: Ludin Maria E on 10-28-2024 Bacteria LM.HPF (Urine sed) [#/Area] 1 /[HPF] None Seen [facility] Urine specific gravity measu rementOrdered By: Ludin Velasquezaissatou on 10-28-2024 Specific gravity (U) [Rel density] 1.025 1.002-1.030 [facility] Urobilinogen Ql (U)Ordered B y: Ludin Evaaissatou on 10-28-2024 Urine Urobilinogen Normal mg/dl Normal [facility] White blood cell (WBC) count Ordered By: Ludin Sanderson on 10-28-2024 WBC (Bld) [#/Vol] 13.6 10*3/uL High 4.4-11.0 [facility] White blood cell countOrdere d By: Ludin Sanderson on 10-28-2024 Urine WBC 0 SEEN /hpf 0-5 [facility] .Auto Diffon 10-18-2024 Basophil, Absolute 0.1 10 3/mcL Normal 0.0-0.2 [facility] Comment on above: Performed By: #### G FR, CBC, LIPTRISTEN ADIFF, MDW, CMP #### [address] [address] Basophils/100 WBC (Bld) 0.7 % Normal 0.0-2.5 [facility] Comment on above: Performed By: #### G FR, CBC, LIPTRISTEN ADIFF, MDW, CMP #### [address] [address] Eosinophil, Absolute 0.2 10 3/mcL Normal 0.0-0.7 [facility] Comment on above: Performed By: #### G FR, CBC, LIPTRISTEN ADIFF, MDW, CMP #### [address] [address] Eosinophils/100 WBC (Bld) 1.2 % Normal 0.0-7.0 [facility] Comment on above: Performed By: #### G FR, CBC, LIP, ANEU, ADIFF, MDW, CMP #### [address] [address] Lymphocyte, Absolute 2.1 10 3/mcL Normal 0.9-4.3 [facility] Comment on above: Performed By: #### G FR, CBC, LIP, ANEU, ADIFF, MDW, CMP #### [address] [address] Lymphocytes/100 WBC (Bld) 12.9 % Low 20.0-40.0 [facility] Comment on above: Performed By: #### G FR, CBC, LIP, ANEU, ADIFF, MDW, CMP #### [address] [address] Monocyte, Absolute 1.2 10 3/mcL Normal 0.1-1.4 [facility] Comment on above: Performed By: #### G FR, CBC, LIP, ANEU, ADIFF, MDW, CMP #### [address] [address] Monocytes/100 WBC (Bld) 7.7 % Normal 2.0-13.0 [facility] Comment on above: Performed By: #### G FR, CBC, LIP, ANEU, ADIFF, MDW, CMP #### [address] [address] Neutrophils/100 WBC (Bld) 77.5 % High 50.0-75.0 [facility] Comment on above: Performed By: #### G FR, CBC, LIP, ANEU, ADIFF, MDW, CMP #### [address] [address] .GFRon 10-18-2024 GFR 99 ml/min/1.73sqm Normal [facility] Comment on above: Result Comment: GFR Population mean for , Non- Americans Ages 20-29 = 116 mL/min/1.73 sq.m. Ages 30-39 = 107 mL/min/1.73 sq.m. Ages 40-49 = 99 mL/min/1.73 sq.m. Ages 50-59 = 93 mL/min/1.73 sq.m. Ages 60-69 = 85 mL/min/1.73 sq.m. Ages 70+ = 75 mL/min/1.73 sq.m. Chronic Kidney Disease: Less than 60 mL/min/1.73 square meters End Stage Renal Disease: Less than 15 mL/min/1.73 square meters Performed By: #### G FR, CBC, LIP, ANEUMATTY MDW, CMP #### [address] [address] GFR Non- 81 ml/min/1.73sqm Normal [facility] Comment on above: Result Comment: GFR Population mean for , Non- Americans Ages 20-29 = 116 mL/min/1.73 sq.m. Ages 30-39 = 107 mL/min/1.73 sq.m. Ages 40-49 = 99 mL/min/1.73 sq.m. Ages 50-59 = 93 mL/min/1.73 sq.m. Ages 60-69 = 85 mL/min/1.73 sq.m. Ages 70+ = 75 mL/min/1.73 sq.m. Chronic Kidney Disease: Less than 60 mL/min/1.73 square meters End Stage Renal Disease: Less than 15 mL/min/1.73 square meters Performed By: #### G FR, CBC, LIP, ANEU, MATTY, CARITO, CMP #### [address] [address] .MDWon 10-18-2024 Monocyte Distribution Width 18.17 Normal 0.00-20.00 [facility] Comment on above: Result Comment: For ED adult patients suspected of sepsis, MDW<=20.0 does not rule out sepsis or risk of sepsis Performed By: #### G FR, CBC, LIP, ANEUMATTY MDW, CMP #### [address] [address] .NEUABSon 10-18-2024 Neutrophil, Absolute 12.4 10 3/mcL High 2.3-8.1 [facility] Comment on above: Performed By: #### G FR, CBC, LIP, ANEU, MATTY, W, CMP #### [address] [address] .Urinalysis Microscopic (AO) on 10-18-2024 UA Hyal Cast 0-5 Abnormal [facility] Comment on above: Performed By: #### G FR, CBC, LIP, ANEU, ADMIKAYLA, MDW, CMP #### [place] [address] UA RBC 10-15 Abnormal None Seen [facility] Comment on above: Performed By: #### G FR, CBC, LIP, ANEU, ADMIKAYLA, W, CMP #### [place] [address] UA Squam Epithelial 0-5 Abnormal None Seen [facility] Comment on above: Performed By: #### G FR, CBC, LIP, ANEU, MATTY, W, CMP #### [place] [address] UA WBC 0-5 Abnormal None Seen [facility] Comment on above: Performed By: #### G FR, CBC, LIP, ANEU, MATTY, CARITO, CMP #### [place] [address] CBCon 10-18-2024 Erythrocyte distribution width (RBC) [Ratio] 14.4 % Normal 11.5-15.5 [facility] Comment on above: Performed By: #### G FR, CBC, LIP, ANEU, CARITO STARR, CMP #### [place] [address] Hematocrit (Bld) [Volume fraction] 44.4 % Normal 40.0-52.0 [facility] Comment on above: Performed By: #### G FR, CBC, LIP, ANEUMATTY MDW, CMP #### [place] [address] Hgb 14.9 G/dL Normal 13.0-17.5 [facility] Comment on above: Performed By: #### G FR, CBC, LIP, ANEU, CARITO STARR, CMP #### [address] [address] MCH (RBC) [Entitic mass] 29.5 pg Normal 27.0-33.0 [facility] Comment on above: Performed By: #### G FR, CBC, LIP, ANEU, ADMIKAYLA, W, CMP #### [address] [address] MCHC 33.5 G/dL Normal 32.0-36.0 [facility] Comment on above: Performed By: #### G FR, CBC, LIP, ANEU, MATTY, W, CMP #### [address] [address] MCV (RBC) [Entitic vol] 88.1 fL Normal 81.0-100.0 [facility] Comment on above: Performed By: #### G FR, CBC, LIP, ANEU, MD MATTYW, CMP #### [address] [address] Platelet 363 10 3/mcL Normal 150-450 [facility] Comment on above: Performed By: #### G FR, CBC, LIP, ANEUMATTY MDW, CMP #### [address] [address] Platelet mean volume (Bld) [Entitic vol] 7.7 fL Normal 6.4-10.5 [facility] Comment on above: Performed By: #### G FR, CBC, LIP, ANEU, ADIFF, W, CMP #### [address] [address] RBC 5.04 10 6/mcL Normal 4.50-6.00 [facility] Comment on above: Performed By: #### G FR, CBC, LIP, ANEU, ADMIKAYLA, W, CMP #### [address] [address] WBC 16.1 10 3/mcL High 4.5-10.8 [facility] Comment on above: Performed By: #### G FR, CBC, LIP, ANEU, ADIFF, CARITO, CMP #### [address] [address] CMPon 10-18-2024 Bili Total 0.3 mg/dL Normal 0.2-1.0 [facility] Comment on above: Result Comment: Use of this assay is not recommended for patients undergoing treatment with eltrombopag due to the potential for falsely elevated results. Performed By: #### G FR, CBC, LIP, ANEU, MATTY, CARITO, CMP #### [address] [address] Albumin Level 4.6 G/dL Normal 3.5-5.0 [facility] Comment on above: Performed By: #### G FR, CBC, LIP, ANEU, MATTY, W, CMP #### [address] [address] Albumin/Globulin [Mass ratio] 1.1 {ratio} Normal 1.1-2.5 [facility] Comment on above: Performed By: #### G FR, CBC, LIP, ANEU, ADMIKAYLA, W, CMP #### [address] [address] ALP [Catalytic activity/Vol] 159 U/L High 40-135 [facility] Comment on above: Performed By: #### G FR, CBC, LIP, ANEU, ADMIKAYLA, MDW, CMP #### [address] [address] ALT [Catalytic activity/Vol] 81 U/L High 16-63 [facility] Comment on above: Performed By: #### G FR, CBC, LIP, ANEU, ADMIKAYLA, W, CMP #### [address] [address] AST [Catalytic activity/Vol] 76 U/L High 10-40 [facility] Comment on above: Performed By: #### G FR, CBC, LIP, ANEU, ADIFF, MDW, CMP #### [address] [address] BUN/Creatinine Ratio 22 ratio Normal 7-27 [facility] Comment on above: Performed By: #### G FR, CBC, LIP, ANEU, CARITO STARR, CMP #### [address] [address] Calcium [Mass/Vol] 10.1 mg/dL Normal 8.4-10.2 [facility] Comment on above: Performed By: #### G FR, CBC, LIP, ANEU, CARITO STARR, CMP #### [address] [address] Chloride [Moles/Vol] 101 mmol/L Normal 98-107 [facility] Comment on above: Performed By: #### G FR, CBC, LIP, ANEU, CARITO STARR, CMP #### [address] [address] CO2 [Moles/Vol] 22 mmol/L Normal 22-29 [facility] Comment on above: Performed By: #### G FR, CBC, LIP, ANEU, CARITO STARR, CMP #### [address] [address] Creatinine [Mass/Vol] 1.02 mg/dL Normal 0.70-1.30 [facility] Comment on above: Result Comment: Test ing performed on Siemens Dimension EXL analyzer using a modified kinetic Ifeanyi technique. Performed By: #### G FR, CBC, LIP, ANEU, ADCARITO DEGROOT, CMP #### [address] [address] Electrolyte Balance 15.0 mEq/L Normal 4.0-15.0 [facility] Comment on above: Performed By: #### G FR, CBC, LIP, ANEU, CARITO STARR, CMP #### [address] [address] Globulin 4.3 G/dL Normal [facility] Comment on above: Performed By: #### G FR, CBC, LIP, ANEU, ADMIKAYLA, CARITO, CMP #### [address] [address] Glucose [Mass/Vol] 211 mg/dL High 70-105 [facility] Comment on above: Performed By: #### G FR, CBC, LIP, MATTY RAMON MDW, CMP #### [address] [address] Potassium [Moles/Vol] 4.2 mmol/L Normal 3.5-5.1 [facility] Comment on above: Performed By: #### G FR, CBC, LIP, MATTY RAMON MDW, CMP #### [address] [place], [place] [address] Sodium [Moles/Vol] 138 mmol/L Normal 136-145 [facility] Comment on above: Performed By: #### G FR, CBC, LIP, MATTY RAMON, CARITO, CMP #### [address] [address] Total Protein 8.9 G/dL High 6.4-8.2 [facility] Comment on above: Performed By: #### G FR, CBC, LIP, MATTY RAMON MDW, CMP #### [address] [address] Urea nitrogen [Mass/Vol] 22 mg/dL High 7-18 [facility] Comment on above: Performed By: #### G FR, CBC, LIP, TRISTEN, MATTY, CARITO, CMP #### [address] [place], [place] [address] CNOVon 10-18-2024 CNOV Office Visit (UCTR ) -- WESTON GAMEZ ([id number]) 1985 [facility] Date Time Provider Department 10/18/24 2:00 PM MARY LONGORIA [facility] During your visit today, we recorded the following information about you: Mary Longoria APRN.SHIPPING ASSOCIATE 10/18/2024 1:27 PM Signed Weston Gamez is a 39 year old male who presents to [facility] for abdominal pain, vomiting, fever. Person with him states he has had fever of 102 degrees F and can't quit vomiting. He is crying in the triage room. He is directed to the ED for further evaluation and treatment. [facility] will [facility]. Mary Longoria APRN.SHIPPING ASSOCIATE Allergies As of Date: 10/18/2024 (No Known Allergies) Date Reviewed: 08/07/2024 Reviewed by: Lisseth Morel MA - Fully Assessed Primary Visit Diagnosis:Procedure not carried out [Z53.9] Prescriptions as of 10/18/2024 - pantoprazole DR (PROTONIX) 40 mg tablet Take 40 mg by mouth two times a day. - amitriptyline (ELAVIL) 25 mg tablet Take 25 mg by mouth daily at bedtime. - scopolamine (TRANSDERM-SCOP) patch 1.5 mg/72 hr (delivers 1 mg over 3 days) Apply 1 Patch as directed every 72 hours. - sucralfate (CARAFATE) 1 gram tablet Take 1 g by mouth four times daily. - LANTUS SOLOSTAR U-100 INSULIN 100 unit/mL (3 mL) Inject 12 Units subcutaneously daily at bedtime. - insulin lispro 100 unit/mL injection Inject 6 Units subcutaneously three times a day before meals. 3 units with snacks - gabapentin (NEURONTIN) 100 mg capsule Take 2 capsules by mouth three times a day for 90 days. - rosuvastatin (CRESTOR) 5 mg tablet Take 1 tablet by mouth daily at bedtime. - metoclopramide HCl (REGLAN) 5 mg tablet Take 1 tablet by mouth four times daily. - insulin needles, DISPOSABLE, (PEN NEEDLE) 31 gauge x 5/16 Use as Directed for Insulin injection - lisinopril (ZESTRIL) 20 mg tablet - blood sugar diagnostic (BLOOD GLUCOSE TEST) test strip Test blood sugar(s) 1 times daily. Dx: Type 2 DM - Uncontrolled E11.65 Insulin: No - Lancets Test blood sugar(s) 1 times daily. 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] 06/09/2021 Diagnosed: 10/15/2023 Encounter Status:Closed by MARY LONGORIA on 10/18/24 Normal [facility] CVFLURVon 10-18-2024 FLU A PCR Negative Normal Negative [facility] Comment on above: Performed By: #### C VFLURV #### [address] [place] [address] FLU B PCR Negative Normal Negative [facility] Comment on above: Performed By: #### C VFLURV #### [address] [place] [address] RSV PCR Negative Normal Negative [facility] Comment on above: Performed By: #### C VFLURV #### [address] [place] [address] SARS-CoV-2 (COVID-19) RNA LOIS+probe Ql (Unsp spec) Negative Normal Negative [facility] Comment on above: Result Comment: Resu lts from the Xpert Xpress CoV-2/Flu/RSV plus test should be correlated with the clinical history, epidemiological data, and other data available to the clinical evaluating the patient. Performance of the Xpert Xpress CoV-2/Flu/RSV plus test has only been established in nasopharyngeal swab specimen. Erroneous test results might occur from improper specimen collection, failure to follow the recommended sample collection, handling and storage procedures, technical error, or sample mix-up. False negative results may occur if a virus is present at a level below the analytical limit of detection. Viral nucleic acid may persist in vivo, independent of virus viability. Detection of analyte target(s) does not imply that the corresponding virus(es) are infectious or are the causative agents for clinical symptoms. Recent patient exposure to FluMist or other live attenuated influenza vaccines may cause inaccurate positive results. Performed By: #### C VFLURV #### [address] [address] LIPon 10-18-2024 Lipase Level 28 U/L Normal 16-77 [facility] Comment on above: Performed By: #### G FR, CBC, LIP, ANEU, ADIFF, MDW, CMP #### [place] [address] UAon 10-18-2024 Color (U) Yellow Normal [facility] Comment on above: Performed By: #### U A, UAMICAO #### [place] [address] Glucose (U) [Mass/Vol] 500 mg/dL Abnormal Negative [facility] Comment on above: Performed By: #### U A, UAMICAO #### [address] [place] [address] Ketones Ql (U) >=160 Abnormal Negative [facility] Comment on above: Performed By: #### U A, UAMICAO #### [place] [address] UA Appear Clear Normal Clear [facility] Comment on above: Performed By: #### U A, UAMICAO #### [place] [address] UA Blood Moderate Abnormal Negative [facility] Comment on above: Performed By: #### U A, UAMICAO #### [place] [address] UA Leuk Est Negative Normal Negative [facility] Comment on above: Performed By: #### U A, UAMICAO #### [place] [address] UA Nitrite Negative Normal Negative [facility] Comment on above: Performed By: #### U A, UAMICAO #### [place] [address] UA pH 6.0 Normal 5.0 - 8.0 [facility] Comment on above: Performed By: #### U A, UAMICAO #### [place] [address] UA Protein 100 mg/dL Abnormal Negative [facility] Comment on above: Performed By: #### U A, UAMICAO #### [address] [address] UA Spec Grav 1.025 Normal 1.015-1.025 [facility] Comment on above: Performed By: #### U A UAMICAO #### [address] [place], [place] [address] UA Specimen Type Clean Catch Normal [facility] Comment on above: Performed By: #### U A UAMICAO #### [address] [address] UA Urobilinogen 0.2 E.U./dL Normal 0.2-1.0 [facility] Comment on above: Performed By: #### U A UAMICAO #### [address] [address] Urobilinogen (U) [Mass/Vol] Negative Normal Negative [facility] Comment on above: Performed By: #### U A UAMICAO #### [address] [address] XR CHEST 1 VIEWon 10-18-2024 XR CHEST 1 VIEW ORIGINAL EXAMINATION: ONE XRAY VIEW OF THE CHEST10/18/2024 2:58 pm CHEST ONE VIEW AP/PA COMPARISON: None available time of interpretation. HISTORY: ORDERING SYSTEM PROVIDED HISTORY: Reason for Exam: cough FINDINGS: Heart size and vascularity are within normal limits. The lungs are clear of focal consolidation. No effusion, pneumothorax, or acute osseous abnormality. IMPRESSION: No radiographic evidence of acute cardiopulmonary process. Interpreted by: Vel Pacheco MD Preliminary Report By: Vel Pacheco MD Electronically signed By Vel Pacheco MD Dictated Date: 10/18/2024 3:29:17 PM Prelim Date: 10/18/2024 3:29:30 PM Sign Date: 10/18/2024 3:29:30 PM Ordering Provider: BROOKLYN BOSTON [facility] Gastroenterology Visit Repor ton 10-03-2024 Gastroenterology Visit Report [facility] Gastroenterology [address] [place] [address] OFFICE VISIT Date of Service: 10/03/24 MR#: [id number] Acct: [id number] Name: WESTON GAMEZ Rep #: [id number] : 1985 Provider: Jaycob Argueta DO Age/Sex: 38/M Location: [facility].BGI Status: Signed Intake Vital Signs 05/14/24 14:50 07/30/24 02:02 Height 5 ft 6 in 5 ft 6 in Intake Visit Reasons: 4 M FU Chief Complaint: hospital f/u 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: No Accompanied by: Is patient in pain?: No Allergies No Known Allergies Allergy (Verified 10/03/24 11:06) Medications ???Medication ???Instructions ???Recorded ???Confirmed ???Type pen needle, diabetic 32 gauge x #100 ea 03/29/24 07/30/24 Rx /32 (BD Ultra-Fine Lizzeth Pen Needle) insulin lispro 100 unit/mL 6 unit subcut TID dm 03/30/24 10/03/24 History subcutaneous pen (Humalog KwikPen (U-100) Insulin) lisinopril 20 mg tablet 20 mg PO DAILY bp #30 tabs 05/01/24 10/03/24 Rx blood-glucose meter,continuous #1 ea 05/04/24 07/30/24 Rx (Dexcom G7 Medical Geneticist) gabapentin 100 mg capsule 200 mg PO TID pain 06/06/24 10/03/24 History insulin pump cart,automated,BT #10 ea 07/05/24 07/30/24 Rx (Omnipod 5 G6 Pods (Gen 5) subcutaneous cartridge) insulin pump cartridge,automated #1 ea 07/05/24 07/30/24 Rx dose,BT with controller subcutaneous (Omnipod 5 G6 Intro Kit (Gen 5) subcutaneous cartridge with controller) blood-glucose transmitter (Dexcom #1 ea 07/27/24 07/30/24 Rx G6 Transmitter device) dicyclomine 10 mg capsule 10 mg PO TID abd pain #90 caps 07/28/24 10/03/24 Rx insulin glargine-yfgn 100 unit/mL 12 unit subcut QHS dm 07/29/24 10/03/24 History (3 mL) subcutaneous pen metoclopramide HCl 5 mg tablet 5 mg PO Q8H PRN PRN nausea and 07/29/24 10/03/24 Rx (Reglan) vomiting 7 days #21 tabs amitriptyline 25 mg tablet 25 mg PO QHS #30 tabs 08/01/24 10/03/24 Rx insulin glargine-yfgn 100 unit/mL 16 unit (0.16 mL) subcut QHS #0 mL 08/01/24 10/03/24 Rx (3 mL) subcutaneous pen insulin lispro 100 unit/mL 50 unit (0.5 mL) continuous 08/01/24 10/03/24 Rx subcutaneous solution (Humalog subcutaneous infusion .continuous U-100 Insulin) #45 mL sucralfate 1 gram tablet 1 g PO Q6H #120 tabs 08/01/24 10/03/24 Rx blood-glucose sensor (Dexcom G6 #9 ea 08/03/24 Rx Sensor device) pantoprazole 40 mg tablet,delayed 40 mg PO BID #60 tabs 08/15/24 10/03/24 Rx release PFSH Medical History (Updated 08/06/24 @ 00:01 by Tawanda Wilson) Gastroparesis Former tobacco use Cannabis use disorder Hypertension Schizophrenia Anxiety Depression Migraines Type 2 diabetes mellitus with hyperglycemia Schizo-affective schizophrenia Bipolar 1 disorder Diabetes mellitus Surgical History (Updated 07/31/24 @ 13:[address] Codey Queen MD) H/O esophagogastroduodenoscopy No history of previous surgery Family History Mother Diabetes Sister Diabetes Father CVA (cerebral vascular accident) Myocardial infarction Social History household members: spouse Smoking Status: Former smoker pack-years: 10 how long ago did patient quit smoking: Quit 05/2024, prior smoked 1/2 ppd. second hand exposure: No alcohol intake: former substance use type: marijuana HPI HPI Chief Complaint: hospital f/u Details: WESTON GAMEZ, is a 38 M who presents to the office today for follow up. [facility] ED 01.25.24 abd pain with N/V x15 abd/pelvis CT 01.25.24 1. Urinary bladder distention may be transient/physiologic. Correlate clinically. 2. Mildly prominent bilateral inguinal lymph nodes, perhaps reactive. [facility] ED 3 - 01.29.24 abd pain N/V EGD 01.28.24 LA Grade C erosive esophagitis with no bleeding. Bilious gastric fluid. Fluid aspiration performed. Non-bleeding gastric ulcers with no stigmata of bleeding. Biopsied. Gastric stenosis was found at the pylorus. Dilated. Non-bleeding duodenal ulcers with no stigmata of bleeding. Severe gastroparesis along with pyloric stenosis secondary to poorly controlled diabetes mellitus EGD 04.04.24 Esophageal mucosal changes suggestive of Blakely's esophagus. Biopsied. Small hiatal hernia. A medium amount of food (residue) in the stomach. Retained food in the duodenum. [facility] ED 7 abd pain abd/pelvis CT 05.14.24 No acute abdominal or pelvic abnormality. *BGI established 06.06.24 pt reports symptoms began about 3 weeks ago. Pt reports symptoms of occasional RLQ stabbing pain, nausea with occasional vomiting, constipation, and heartburn. Pt reports a soft BM every 3-4 days; denies blood in the stool. Pt reports that his gabapentin was increased from 300mg daily to 600mg daily around the same time that the symptoms began. Pt continues with pa (more content not included)... Normal [facility] Gastroenterology Visit Repor ton 08-15-2024 Gastroenterology Visit Report [facility] Gastroenterology [address] [place] [address] OFFICE VISIT Date of Service: 08/15/24 MR#: [id number] Acct: [id number] Name: WESTON GAMEZ Rep #: [id number] : 1985 Provider: RIGOBERTO Mathis Age/Sex: 38/M Location: [facility]I Status: Signed Intake Vital Signs 07/30/24 02:02 Height 5 ft 6 in Intake Visit Reasons: Hospital FU Chief Complaint: hospital f/u 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: No Is patient in pain?: No Allergies No Known Allergies Allergy (Verified 07/29/24 22:07) Medications ???Medication ???Instructions ???Recorded ???Confirmed ???Type pen needle, diabetic 32 gauge x #100 ea 03/29/24 07/30/24 Rx (BD Ultra-Fine Lizzeth Pen Needle) insulin lispro 100 unit/mL 6 unit subcut TID dm 03/30/24 08/15/24 History subcutaneous pen (Humalog KwikPen (U-100) Insulin) lisinopril 20 mg tablet 20 mg PO DAILY bp #30 tabs 05/01/24 08/15/24 Rx blood-glucose meter,continuous #1 ea 05/04/24 07/30/24 Rx (Dexcom G7 Medical Geneticist) gabapentin 100 mg capsule 200 mg PO TID pain 06/06/24 08/15/24 History insulin pump cart,automated,BT #10 ea 07/05/24 07/30/24 Rx (Omnipod 5 G6 Pods (Gen 5) subcutaneous cartridge) insulin pump cartridge,automated #1 ea 07/05/24 07/30/24 Rx dose,BT with controller subcutaneous (Omnipod 5 G6 Intro Kit (Gen 5) subcutaneous cartridge with controller) blood-glucose transmitter (Dexcom #1 ea 07/27/24 07/30/24 Rx G6 Transmitter device) dicyclomine 10 mg capsule 10 mg PO TID abd pain #90 caps 07/28/24 08/15/24 Rx insulin glargine-yfgn 100 unit/mL 12 unit subcut QHS dm 07/29/24 08/15/24 History (3 mL) subcutaneous pen metoclopramide HCl 5 mg tablet 5 mg PO Q8H PRN PRN nausea and 07/29/24 08/15/24 Rx (Reglan) vomiting 7 days #21 tabs amitriptyline 25 mg tablet 25 mg PO QHS #30 tabs 08/01/24 08/15/24 Rx insulin glargine-yfgn 100 unit/mL 16 unit (0.16 mL) subcut QHS #0 mL 08/01/24 08/15/24 Rx (3 mL) subcutaneous pen insulin lispro 100 unit/mL 50 unit (0.5 mL) continuous 08/01/24 Rx subcutaneous solution (Humalog subcutaneous infusion .continuous U-100 Insulin) #45 mL sucralfate 1 gram tablet 1 g PO Q6H #120 tabs 08/01/24 08/15/24 Rx blood-glucose sensor (Dexcom G6 #9 ea 08/03/24 Rx Sensor device) bismuth subsalicylate 262 mg 2 tab PO .QID diarrhea 2 weeks 08/15/24 08/15/24 Rx chewable tablet #112 tabs metronidazole 250 mg tablet 250 mg PO .QID 2 weeks #60 tabs 08/15/24 08/15/24 Rx pantoprazole 40 mg tablet,delayed 40 mg PO BID #60 tabs 08/15/24 08/15/24 Rx release tetracycline 500 mg capsule 500 mg PO .QID 2 weeks #56 caps 08/15/24 08/15/24 Rx Have you fallen in the past year?: No [facility] Medical History (Updated 08/06/24 @ 00:01 by Tawanda Wilson) Gastroparesis Former tobacco use Cannabis use disorder Hypertension Schizophrenia Anxiety Depression Migraines Type 2 diabetes mellitus with hyperglycemia Schizo-affective schizophrenia Bipolar 1 disorder Diabetes mellitus Surgical History (Updated 07/31/24 @ 13:[address] Codey Queen MD) H/O esophagogastroduodenoscopy No history of previous surgery Family History Mother Diabetes Sister Diabetes Father CVA (cerebral vascular accident) Myocardial infarction Social History household members: spouse Smoking Status: Former smoker pack-years: 10 how long ago did patient quit smoking: Quit 05/2024, prior smoked 1/2 ppd. second hand exposure: No alcohol intake: former substance use type: marijuana HPI HPI Chief Complaint: hospital f/u Details: WESTON GAMEZ, is a 38 M who presents to the office today for hospital f/u. [facility] ED 01.25.24 abd pain with N/V x15 abd/pelvis CT 01.25.24 1. Urinary bladder distention may be transient/physiologic. Correlate clinically. 2. Mildly prominent bilateral inguinal lymph nodes, perhaps reactive. [facility] ED 01.27.24 - 01.29.24 abd pain N/V EGD 01.28.24 LA Grade C erosive esophagitis with no bleeding. Bilious gastric fluid. Fluid aspiration performed. Non-bleeding gastric ulcers with no stigmata of bleeding. Biopsied. Gastric stenosis was found at the pylorus. Dilated. Non-bleeding duodenal ulcers with no stigmata of bleeding. Severe gastroparesis along with pyloric stenosis secondary to poorly controlled diabetes mellitus EGD 04.04.24 Esophageal mucosal changes suggestive of Blakely's esophagus. Biopsied. Small hiatal hernia. A medium amount of food (residue) in the stomach. Retained food in the duodenum. [facility] ED 7 abd pain abd/pelvis CT 05.14.24 No acute abdominal or pelvic abnormality. *BGI established 730 pt reports symptoms began about 3 weeks ago. Pt reports symptoms of occasional RLQ stabbing pain (more content not included)... Normal [facility] CNOVon 08-07-2024 CNOV Office Visit (FAMPWS ) -- WESTON GAMEZ ([id number]) 1985 [facility] Date Time Provider Department 08/07/24 9:20 AM AUSTIN CAMARENA During your visit today, we recorded the following information about you: Pulse Respiration Blood pressure Weight 97/minute 14/minute 132/85 71.2 kg Austin Camarena, MEDICATION AIDE.[facility] 08/07/2024 9:18 AM Signed Chief Complaint Patient presents with: Hospital F/U HPI Weston Gamez is a 38 year old male who presents here today for Above Complaints.. Patient presents for Hospital follow up for hematemesis and cyclical N/V. Endoscopy showed multiple bleeding ulcers which were biopsied. Patient was sent home on protonix twice daily and carafate 4 times daily. Has follow up with Dr. Argueta 08/15. Past medical history, appointments, medications, allergies reviewed. Previous Medical History PAST MEDICAL HISTORY Diagnosis Date Bipolar 1 disorder (HCC) DM (diabetes mellitus), type 2 (HCC) NEGATIVE MEDICAL HISTORY Previous Surgical History PAST SURGICAL HISTORY Procedure Laterality Date NONE Family History FAMILY HISTORY Problem Relation Age of Onset Hypertension Father Heart Father Hypertension Mother Diabetes Mother No Ocular Disease No Family History Patient Allergies ALLERGIES No Known Allergies Current Medications Current Outpatient Medications on File Prior to Visit Medication Sig rosuvastatin (CRESTOR) 5 mg tablet Take 1 tablet by mouth daily at bedtime. gabapentin (NEURONTIN) 100 mg capsule Take 2 capsules by mouth three times a day for [address] (PROTONIX) 40 mg tablet Take 1 tablet by mouth two times a day. Take on empty stomach, 1/2 hr before meal. metoclopramide HCl (REGLAN) 5 mg tablet Take 1 tablet by mouth four times daily. insulin needles, DISPOSABLE, (PEN NEEDLE) 31 gauge x 5/16 Use as Directed for Insulin injection lisinopril (ZESTRIL) 20 mg tablet LANTUS SOLOSTAR U-100 INSULIN 100 unit/mL (3 mL) Inject 15 Units subcutaneously daily at bedtime. blood sugar diagnostic (BLOOD GLUCOSE TEST) test strip Test blood sugar(s) 1 times daily. Dx: Type 2 DM - Uncontrolled E11.65 Insulin: No Lancets Test blood sugar(s) 1 times daily. Dx: Type 2 DM - Uncontrolled E11.65 Insulin: No No current facility-administered medications on file prior to visit. Social History Social History Tobacco Use Smoking status: Former Current packs/day: 0.00 Average packs/day: 1.5 packs/day for 25.0 years (37.5 ttl pk-yrs) Types: Cigarettes Start date: 02/04/1999 Quit date: 02/05/2024 Years since quittin.5 Vaping Use Vaping status: Never Used Substance Use Topics Alcohol use: Not Currently Drug use: Not Currently Frequency: 3.0 times per week Types: Marijuana Comment: smokes and uses edibles Review of Symptoms REVIEW OF SYSTEMS SEE HPI EXAM: BP 132/85 Pulse 97 Resp 14 Wt 71.2 kg (157 lb) General Appearance: Well appearing, alert, in no acute distress, well-hydrated, well nourished.. Lungs: Lungs clear to auscultation. No wheezing, rhonchi, rales.. Heart: RRR without murmur, gallop, or rubs. No ectopy. Abdomen: Normal abdominal exam, Abdomen soft, non-tender. Bowel sounds normal. No masses, organomegaly. Health Maintenance List Pneumococcal Vaccine(1 of 2 - PCV) Never done Depression Screening Never done Anxiety Screening Never done Covid-19 Vaccine( season) due on 07/09/2024 Influenza Vaccine(1) due on 07/09/2024 HbA1C due on 10/05/2024 Urine Albumin:Creatinine Ratio due on 10/15/2024 LDL Cholesterol due on 10/15/2024 Dilated Retinal Exam due on 10/26/2024 Diabetic Foot Exam due on 02/07/2025 Annual PCP Team Chronic Disease Visit due on 05/16/2025 DTaP,Tdap,Td Vaccine(2 - Td or Tdap) due on 10/15/2033 Hepatitis C Screening Completed HIV Screening Completed HPV Vaccine Aged Out Hepatitis B Vaccine Discontinued ASSESSMENT/PLAN: 1. Nausea and vomiting, unspecified vomiting type - ICD9: 787.01, ICD10: R11.2 (primary diagnosis) -Continue reglan 2. Type 2 diabetes mellitus with peripheral neuropathy (HCC) - ICD9: 250.60, 357.2, ICD10: E11.42 - Controlled - Continue current medications - Counseled on healthy diet and regular exercise - LANTUS SOLOSTAR U-100 INSULIN 100 UNIT/ML (3 ML) SUBCUTANEOUS PEN - GABAPENTIN 100 MG CAPSULE 3. Encounter for immunization - ICD9: V03.89, ICD10: Z23 - PFIZER-BIONTKnock Knock COVID-19 VACCINE AGE 12+ YR (COMIRNATY) 4. Hematemesis with nausea - ICD9: 578.0, 787.02, ICD10: K92.0 -Resolved, follow up with Dr. Argueta as scheduled 5. Acute gastric ulcer without hemorrhage or perforation - ICD9: 531.30, ICD10: K25.3 -Resolved, follow up with Dr. Argueta as scheduled Austin Camarena APRN.SHIPPING ASSOCIATE Allergies As of Date: 08/07/2024 (No Known Allergies) Date Reviewed: 08/07/2024 Reviewed by: Lisseth Morel MA - Fully Assessed Reason f (more content not included)... Normal [facility] Basic Metabolic Profile (BMP )on 08-01-2024 BUN/CRE 15.4 RATIO Normal 10-20 [facility] Comment on above: Performed By: #### L 100.0500, L500.2500 #### [facility] [facility] [address] [place], [address] CA,Total 8.9 mg/dL Normal 8.5-10.1 [facility] Comment on above: Performed By: #### L 100.0500, L500.2500 #### [facility] [address] [place], [address] Chloride [Moles/Vol] 107 mmol/L Normal 98-107 [facility] Comment on above: Performed By: #### L 100.0500, L500.2500 #### [facility] [address] [place], [address] CO2 [Moles/Vol] 24.0 mmol/L Normal 21.0-32.0 [facility] Comment on above: Performed By: #### L 100.0500, L500.2500 #### [facility] [address] [place], [address] Creatinine [Mass/Vol] 0.91 mg/dL Normal 0.70-1.30 [facility] Comment on above: Result Comment: The validity of the calculated GFR GFRAA in patients over 70 years has not been determined. Clinical correlation is essential. Performed By: #### L 100.0500, L500.2500 #### [facility] [address] [place], [address] ECRCL 99.32 ml/min Normal [facility] Comment on above: Performed By: #### L 100.0500, L500.2500 #### [facility] [address] [place], [address] EST GFR - AA 120 mL/min Normal >60 [facility] Comment on above: Result Comment: Afri can Eritrean GFR Calc Performed By: #### L 100.0500, L500.2500 #### [facility] [address] [place], [address] GAP 6 Normal 5-15 [facility] Comment on above: Performed By: #### L 100.0500, L500.2500 #### [facility] [address] [place], [address] GFR/1.73 sq M.predicted among non-blacks MDRD (S/P/Bld) [Vol rate/Area] 99 mL/min/{1.73_m2} Normal >60 [facility] Comment on above: Result Comment: Non- GFR Calc Performed By: #### L 100.0500, L500.2500 #### [facility] [address] [place], [address] Glucose [Mass/Vol] 199 mg/dL High 74-106 [facility] Comment on above: Result Comment: Fast ing Glucose result greater than or equal to 126 mg/dL suggests DIABETES MELLITUS per A.D.A. criteria. Performed By: #### L 100.0500, L500.2500 #### [facility] [address] [place], [address] Potassium [Moles/Vol] 3.7 mmol/L Normal 3.5-5.1 [facility] Comment on above: Performed By: #### L 100.0500, L500.2500 #### [facility] [address] [place], [address] Sodium [Moles/Vol] 137 mmol/L Normal 136-145 [facility] Comment on above: Performed By: #### L 100.0500, L500.2500 #### [facility] [address] [place], [address] Urea nitrogen [Mass/Vol] 14 mg/dL Normal 7-18 [facility] Comment on above: Performed By: #### L 100.0500, L500.2500 #### [facility] [address] [place], [address] Bedside Glucoseon 08-01-2024 FINGERSTICK GLU 225 mg/dL High -106 [facility] Comment on above: Result Comment: CORINNA GEMENT OF PATIENT CARE PER NURSING PROTOCOL Performed By: #### L 500.2500 #### [facility] [address] [place], [address] FINGERSTICK GLU 210 mg/dL High [address] [place] [address] Comment on above: Result Comment: CORINNA GEMENT OF PATIENT CARE PER NURSING PROTOCOL Performed By: #### L 501.080 #### [facility] [address] [place], [address] FINGERSTICK GLU 348 mg/dL High 74-106 [facility] Comment on above: Result Comment: CORINNA VELEZ OF PATIENT CARE PER NURSING PROTOCOL Performed By: #### L 100.0500, L500.2500 #### [facility] [address] [place], [address] CBC-Complete Blood Cnt No Di ffon 08-01-2024 Erythrocyte distribution width (RBC) [Ratio] 12.7 % Normal 11.6-14.6 [facility] Comment on above: Performed By: #### L 100.0500, L500.2500 #### [facility] [address] [place], [address] Hematocrit (Bld) [Volume fraction] 34.0 % Low 40-54 [facility] Comment on above: Performed By: #### L 100.0500, L500.2500 #### [facility] [address] [place], [address] Hemoglobin (Bld) [Mass/Vol] 11.2 g/dL Low 13.0-16.5 [facility] Comment on above: Performed By: #### L 100.0500, L500.2500 #### [facility] [address] [place], [address] MCH (RBC) [Entitic mass] 28.6 pg Normal 27.0-32.0 [facility] Comment on above: Performed By: #### L 100.0500, L500.2500 #### [facility] [address] [place], [address] MCHC (RBC) [Mass/Vol] 32.9 g/dL Normal 32-36 [facility] Comment on above: Performed By: #### L 100.0500, L500.2500 #### [facility] [address] [place], [address] MCV (RBC) [Entitic vol] 86.7 fL Normal 80-94 [facility] Comment on above: Performed By: #### L 100.0500, L500.2500 #### [facility] [address] [place], [address] Platelet mean volume (Bld) [Entitic vol] 9.8 fL Normal 6.2-12.0 [facility] Comment on above: Performed By: #### L 100.0500, L500.2500 #### [facility] [address] [place], [address] Platelets (Bld) [#/Vol] 361 10*3/uL Normal 150-450 [facility] Comment on above: Performed By: #### L 100.0500, L500.2500 #### [facility] [address] [place], [address] RBC (Bld) [#/Vol] 3.92 10*6/uL Low 4.6-6.2 [facility] Comment on above: Performed By: #### L 100.0500, L500.2500 #### [facility] [address] [place], [address] RDW SD 40.0 fl Normal 35.1-43.9 [facility] Comment on above: Performed By: #### L 100.0500, L500.2500 #### [facility] [address] [place], [address] WBC (Bld) [#/Vol] 12.1 10*3/uL High 4.4-11.0 [facility] Comment on above: Performed By: #### L 100.0500, L500.2500 #### [facility] [address] [place], [address] MR/PNMary 08-01-2024 MR/PNBABITA [facility] Medical Records Department [address] [place] [address] Progress Note - GI 08/01/24 1727 MR#: [id number] Acct: [id number] Name: WESTON GAMEZ Rep #: [id number] : 1985 38 From: Jaycob Friend DO PCP: Austin Camarena, CARBURETOR REBUILDER-C Status:DIS KINSEY Location: MS3 [id number] Subjective Subjective Patient is abdominal pain is a lot better today. He is tolerating a regular diet with current medication regimen. Objective Data Objective Data Vital Signs: Vital Signs Temp Pulse Resp BP Pulse Ox O2 Del Method 98.3 F 75 16 146/83 H 95 Room Air 08/01/24 14:03 08/01/24 14:03 08/01/24 14:03 08/01/24 14:03 08/01/24 14:03 08/01/24 14:03 Oxygen Delivery Method Room Air Weight: 141 lb 5.061 oz Body Mass Index (BMI) 22.7 Intake Output: Intake and Output for Last 24 Hours 07/30/24 07/31/24 08/01/24 23:59 23:59 23:59 Intake Total 3140.58 / 3390.58 560 / 560 0 / 0 Balance 3140.58 / 3390.58 560 / 560 0 / 0 Lab / Micro Data 08/01/24 06:37 08/01/24 06:37 Labs: Laboratory Results - last 24 hr 07/31/24 21:48: POC Glucose 348 H 08/01/24 06:35: POC Glucose 210 H 08/01/24 06:37: WBC 12.1 H, RBC 3.92 L, Hgb 11.2 L, Hct 34.0 L, MCV 86.7, MCH 28.6, MCHC 32.9, RDW Std Deviation 40.0, RDW Coeff of [place] 12.7, Plt Count 361, MPV 9.8, Sodium 137, Potassium 3.7, Chloride 107, Carbon Dioxide 24.0, Anion Gap 6, BUN 14, Creatinine 0.91, Estim Creat Clear Calc 99.32, Est GFR (MDRD) Af Amer 120, Est GFR (MDRD) Non-Af 99, BUN/Creatinine Ratio 15.4, Glucose 199 H, Calcium 8.9 08/01/24 11:43: POC Glucose 225 H Rhythm Strip Rhythm Strip: Sinus Tach Rate: 115 Ectopy: None Physical Exam Const alert, oriented x3, no apparent distress, average body habitus and healthy appearing Constitutional Narrative: General Appearance: cooperative, comfortable, well kempt and well developed Orientation / Consciousness: awake, oriented to person, oriented to place and oriented to time Exam Limitations: no limitations HEENT normocephalic, head/scalp atraumatic, hearing grossly normal bilaterally and moist oral mucous membranes HEENT Narrative: Mallampati 2, no thrush Eyes Eyes Narrative: No scleral icterus Neck no lymphadenopathy and supple Neck Narrative: Trachea midline, no thyroid enlargement Resp normal respiratory effort, no retractions, no use of accessory muscles and clear to auscultation bilaterally Auscultation: Negative for rales, rhonchi or wheezes Cardio regular rate, regular rhythm, S1 normal heart sound, S2 normal heart sound, no murmurs, no rub, no gallops and no clicks GI normal to inspection, nondistended, normoactive bowel sounds, soft to palpation and non-tender Extremity no clubbing, cyanosis or edema Extremity Narrative: Pedal pulses are 2+ Skin no rashes or lesions noted, no wounds, skin turgor normal and no jaundice Neuro oriented x3, moves all extremities and no focal motor deficits Speech: speech normal Psych affect normal Psych Narrative: Pleasant, interacts appropriately, eye contact is good Assessment Plan Assessment/Plan (1) Diffuse abdominal pain: (2) Intractable vomiting with nausea: (3) Gastric ulcer: PLAN: Plan Intractable nausea vomiting -Suspect multifactorial with gastroparesis/previous cyclic vomiting syndrome with THC use/possible H. pylori infection -Protonix 40 mg p.o. twice daily -Start amitriptyline 25 mg at at bedtime -Full liquid diet to be advanced as tolerated -Discontinue Reglan -Continue scopolamine patch -Continue as needed Zofran -Patient denies any cannabis use in last 2 months - Oozing gastric ulcers/GERD/esophagitis -Treated and biopsied -H. pylori testing pending -Continue Protonix 40 mg but transition to oral -Start Carafate 4 times daily -Await biopsies to see if we need to treat for H. pylori -Full liquid diet -Hemoglobin is stable Charges/Coding Visit Charges Inpatient E M: 01220 Subs Hosp L3 08/01/24 1729 Cosigner Signature (if applicable): CC: Signed Normal [facility] Basic Metabolic Profile (BMP )on 07-31-2024 BUN Normal 7-18 [facility] Comment on above: Result Comment: Canc elled via OM: MD Ordered Performed By: #### L 100.0500, L500.2500 #### [facility] [address] [place], [address] BUN/CRE Normal 10-20 [facility] Comment on above: Result Comment: Canc elled via OM: MD Ordered Performed By: #### L 100.0500, L500.2500 #### [facility] [address] [place], [address] CA,Total Normal 8.5-10.1 [facility] Comment on above: Result Comment: Canc elled via OM: MD Ordered Performed By: #### L 100.0500, L500.2500 #### [facility] [address] [place], [address] CL Normal 98-107 [facility] Comment on above: Result Comment: Canc elled via OM: MD Ordered Performed By: #### L 100.0500, L500.2500 #### [facility] [address] [place], [address] CO2 Normal 21.0-32.0 [facility] Comment on above: Result Comment: Canc elled via OM: MD Ordered Performed By: #### L 100.0500, L500.2500 #### [facility] [address] [place], [address] CREAT,SERUM Normal 0.70-1.30 [facility] Comment on above: Result Comment: Canc elled via OM: MD Ordered Performed By: #### L 100.0500, L500.2500 #### [facility] [address] [place], [address] EST GFR Normal >60 [facility] Comment on above: Result Comment: Canc elled via OM: MD Ordered Performed By: #### L 100.0500, L500.2500 #### [facility] [address] [place], [address] EST GFR - AA Normal >60 [facility] Comment on above: Result Comment: Canc elled via OM: MD Ordered Performed By: #### L 100.0500, L500.2500 #### [facility] [address] [place], [address] GAP Normal 5-15 [facility] Comment on above: Result Comment: Canc elled via OM: MD Ordered Performed By: #### L 100.0500, L500.2500 #### [facility] [address] [place], [address] GLU Normal 74-106 [facility] Comment on above: Result Comment: Canc elled via OM: MD Ordered Performed By: #### L 100.0500, L500.2500 #### [facility] [address] [place], [address] Potassium Normal 3.5-5.1 [facility] Comment on above: Result Comment: Canc elled via OM: MD Ordered Performed By: #### L 100.0500, L500.2500 #### [facility] [address] [place], [address] Basic Metabolic Profile (BMP) Normal 136-145 [facility] Comment on above: Result Comment: Canc elled via OM: MD Ordered Performed By: #### L 100.0500, L500.2500 #### [facility] [address] [place], [address] Bedside Glucoseon 07-31-2024 FINGERSTICK GLU 169 mg/dL High 74-106 [facility] Comment on above: Result Comment: CORINNA VELEZ OF PATIENT CARE PER NURSING PROTOCOL Performed By: #### L 100.0500, L500.2500 #### [facility] [address] [place], [address] FINGERSTICK GLU 87 mg/dL Normal 74-106 [facility] Comment on above: Result Comment: CORINNA GEMENT OF PATIENT CARE PER NURSING PROTOCOL Performed By: #### L 100.0500, L500.2500 #### [facility] [address] [place], [address] FINGERSTICK GLU 102 mg/dL Normal 74-106 [facility] Comment on above: Result Comment: CORINNA GEMENT OF PATIENT CARE PER NURSING PROTOCOL Performed By: #### L 100.0500, L500.2500 #### [facility] [address] [place], [address] FINGERSTICK GLU 114 mg/dL High 74-106 [facility] Comment on above: Result Comment: CORINNA GEMENT OF PATIENT CARE PER NURSING PROTOCOL Performed By: #### L 100.0500, L500.2500 #### [facility] [address] [place], [address] CBC-Complete Blood Cnt No Di ffon 07-31-2024 Erythrocyte distribution width (RBC) [Ratio] 13.0 % Normal 11.6-14.6 [facility] Comment on above: Performed By: #### L 100.0500, L500.2500 #### [facility] [address] [place], [address] Hematocrit (Bld) [Volume fraction] 36.7 % Low 40-54 [facility] Comment on above: Performed By: #### L 100.0500, L500.2500 #### [facility] [address] [place], [address] Hemoglobin (Bld) [Mass/Vol] 11.7 g/dL Low 13.0-16.5 [facility] Comment on above: Performed By: #### L 100.0500, L500.2500 #### [facility] [address] [place], [address] MCH (RBC) [Entitic mass] 28.4 pg Normal 27.0-32.0 [facility] Comment on above: Performed By: #### L 100.0500, L500.2500 #### [facility] [address] [place], [address] MCHC (RBC) [Mass/Vol] 31.9 g/dL Low 32-36 [facility] Comment on above: Performed By: #### L 100.0500, L500.2500 #### [facility] [address] [place], [address] MCV (RBC) [Entitic vol] 89.1 fL Normal 80-94 [facility] Comment on above: Performed By: #### L 100.0500, L500.2500 #### [facility] [address] [place], [address] Platelet mean volume (Bld) [Entitic vol] 9.2 fL Normal 6.2-12.0 [facility] Comment on above: Performed By: #### L 100.0500, L500.2500 #### [facility] [address] [place], [address] Platelets (Bld) [#/Vol] 356 10*3/uL Normal 150-450 [facility] Comment on above: Performed By: #### L 100.0500, L500.2500 #### [facility] [address] [place], [address] RBC (Bld) [#/Vol] 4.12 10*6/uL Low 4.6-6.2 [facility] Comment on above: Performed By: #### L 100.0500, L500.2500 #### [facility] [address] [place], [address] RDW SD 42.5 fl Normal 35.1-43.9 [facility] Comment on above: Performed By: #### L 100.0500, L500.2500 #### [facility] [address] [place], [address] WBC (Bld) [#/Vol] 9.9 10*3/uL Normal 4.4-11.0 [facility] Comment on above: Performed By: #### L 100.0500, L500.2500 #### [facility] [address] [place], [address] EGD Reporton 07-31-2024 EGD Report [facility] Medical Records Department [address] [place] [address] EGD Report MR#: [id number] Acct: [id number] Name: WESTON GAMEZ Rep #: [id number] : 1985 38 From: Jaycob Argueta DO PCP: ONEL GellerC Status:ADM KINSEY Patient Name: Weston Gamez Procedure Date: 07/31/2024 1:01 PM Date of : 1985 Age: 38 Procedure: Upper GI endoscopy Indications: Epigastric abdominal pain, Functional Dyspepsia, Hematemesis Providers: Jaycob Argueta DO Medicines: Monitored Anesthesia Care Patient Profile: This is a 38 year old male. Refer to note in patient chart for documentation of history and physical. Patient has symptoms of acute epigastric abdominal pain and acute vomiting. Complications: No immediate complications. Procedure: Pre-Anesthesia Assessment: - Prior to the procedure, a History and Physical was performed, and patient medications and allergies were reviewed. The patient is competent. The risks and benefits of the procedure and the sedation options and risks were discussed with the patient. All questions were answered and informed consent was obtained. Patient identification and proposed procedure were verified by the physician in the pre-procedure area. Mental Status Examination: alert and oriented. Airway Examination: normal oropharyngeal airway and neck mobility. Respiratory Examination: clear to auscultation. CV Examination: normal. Prophylactic Antibiotics: The patient does not require prophylactic antibiotics. Prior Anticoagulants: The patient has taken no anticoagulant or antiplatelet agents except for NSAID medication. ASA Grade Assessment: II - A patient with mild systemic disease. After reviewing the risks and benefits, the patient was deemed in satisfactory condition to undergo the procedure. The anesthesia plan was to use monitored anesthesia care (MAC). Immediately prior to administration of medications, the patient was re-assessed for adequacy to receive sedatives. The heart rate, respiratory rate, oxygen saturations, blood pressure, adequacy of pulmonary ventilation, and response to care were monitored throughout the procedure. The physical status of the patient was re-assessed after the procedure. After obtaining informed consent, the endoscope was passed under direct vision. Throughout the procedure, the patient's blood pressure, pulse, and oxygen saturations were monitored continuously. The Endoscope was introduced through the mouth, and advanced to the second part of duodenum. The upper GI endoscopy was accomplished without difficulty. The patient tolerated the procedure well. Scope In: Scope Out: 1:24:10 PM Findings: Non-severe esophagitis with no bleeding was found 37 to 39 cm from the incisors. Two oozing linear gastric ulcers with no stigmata of bleeding were found in the cardia and at the pylorus. The largest lesion was 6 mm in largest dimension. Biopsies were taken with a cold forceps for histology. Verification of patient identification for the specimen was done. Estimated blood loss was minimal. Biopsies were taken with a cold forceps for Helicobacter pylori testing. Verification of patient identification for the specimen was done. Estimated blood loss was minimal. Patchy mild inflammation characterized by erosions and granularity was found in the duodenal bulb. Biopsies were taken with a cold forceps for histology. Verification of patient identification for the specimen was done. Estimated blood loss was minimal. Impression: - Cyclic vomiting syndrome causing : - non-severe reflux esophagitis with no bleeding. - Oozing gastric ulcers with no stigmata of bleeding. Biopsied. - Chronic duodenitis. Biopsied. Recommendation: - Discharge patient to home. - Resume previous diet. - Continue present medications. - Await pathology results. - Protonix 40 mg p.o. twice daily - Amitriptyline 25 mg at night - Documentation was given on cyclic vomiting syndrome and psychiatric disorders Procedure Code(s): --- Professional --- 03815, Esophagogastroduodenoscopy , flexible, transoral; with biopsy, single or multiple CPT copyright 2021 [employer]. All rights reserved. The codes documented in this report are preliminary and upon call center specialist review may be revised to meet current compliance requirements. Jaycob Argueta DO 07/31/2024 1:35:10 PM This report has been signed electronically. Number of Addenda: 0 Note Initiated On: 07/31/2024 1:01 PM 07/31/24 1335 Date Jaycoblobo Argueta DO Cosigner Signature: Date (if indicated) CC: CARBURETOR REBUILDER-C Austin Camarena; Jaycob Argueta, Date Dictated: 07/31/24 1301 Date Transcribed: Ultrasound Applications Specialist: KAROLYN Signed Normal [facility] H Pylori (initial)on 024 H Pylori (initial) ------ Patient Age/Sex Location Account Attending Physician WESTON GAMEZ 38/M MS3 [id number] Dr. Victoria Davey, DO Specimen: [id number] Received: 08/01/24-1038 Status: SILVANO Almeida Num: [id number] Spec Type: IMMUNO Subm Dr: Jaycob Argueta, PHYSICIAN INSTITUTION [place] [address] SPECIMEN INFORMATION: Tissue Source: A- Gastric cardia Clinical Info: Intractable vomiting with nausea, hematemesis Specimen Number: [id number] CPT code: 18902 METHODOLOGY: Deparaffinized sections of prefer/formalin-fixed tissue or PAP/DQ stained slides are incubated with monoclonal/polyclonal antibodies/oligonucleotide probes. Localization is made via biotin free immunoperoxidase method. Appropriate controls are performed and reacted as expected. Results on target cell population are indicated in the following table: RESULTS: ANTIBODY / CLONE RESULT Block A H Pylori (polyclonal) positive These tests were developed and their performance characteristics determined by [facility]. They may not have been cleared or approved by the U.[place]. Food and Drug Administration. The FDA has determined that such clearance or approval is not necessary. The above immunohistochemical/dualIS H markers are ordered and reviewed by the Pathologist. INTERPRETATION: A. Gastric cardia, biopsy: Positive for Helicobacter pylori organisms. 08/02/2024 Signed (signature on file) Dr. Gian Pham MD 08/02/24 1402 Normal [facility] Comment on above: Performed By: #### P H.PYLORI ####[facility] [id number] [place], [place], [id number] MR/POSTOPMissy 07-31-2024 MR[facility]POSTOP.[facility] Medical Records Department [address] [place] [address] Anesthesia Postop Eval I 07/31/24 1330 MR#: [id number] Acct: [id number] Name: WESTON GAMEZ Rep #: [id number] : 1985 38 From: Jez Burnett PCP: Austin Camarena CARBURETOR REBUILDER-C Status:ADM KINSEY Y Race: AA Location: [place] [address] Anesthesia: Postop Eval I Current Vital Signs Temperature: 97.3 F Pulse Rate: 76 Blood Pressure: 122/82 Respiratory Rate: 16 Pulse Ox: 98 Oxygen Delivery Method: Room Air Assessment Airway patent: Yes Spontaneous unlabored respirations: Yes Mental status: Asleep nausea: No Vomiting: No Anesthesia Complication: No Fluid Hydration Crystalloid volume administer (ml): 400 Total IV fluid infused: 400 Progress Note Anesthesia document: Postop Eval 1 completed: Yes 07/31/24 133 Date Jez Garcia Signature: Date CC: Signed Normal [facility] MR/[id number] 07-31-2024 [facility] Medical Records Department [address] [place] [address] Anesthesia Postop Eval II 07/31/24 1559 MR#: [id number] Acct: [id number] Name: WESTON GAMEZ Rep #: [id number] : 1985 38 From: Codey Queen MD PCP: ONEL GellerC Status:ADM KINSEY Y Race: AA Location: [place] [address] Anesthesia Postop Eval I Sum Postop Eval Completion status Anesthesia document: Postop Eval 1 completed: Yes Anesthesia Postop Eval I Summary Anesthesia Postop Eval I Summary: Anesthesia Postop Eval I: Assessment Summary Airway patent Yes 07/31/24 13:32 [email or web address] Spontaneous unlabored Yes 07/31/24 13:32 [email or web address] respirations Mental status Asleep 07/31/24 13:32 [email or web address] nausea No 07/31/24 13:32 [email or web address] Vomiting No 07/31/24 13:32 [email or web address] Anesthesia Postop Eval I: Fluid Summary Crystalloid volume administer 400 07/31/24 13:32 [email or web address] (ml) Colloids volume administered ( ml) Blood Product volume administered (ml) Total IV fluid infused 400 07/31/24 13:32 [email or web address] Anesthesia Postop Eval I: Summary Notes Anesthesia Complication No 07/31/24 13:32 [email or web address] Anesthesia Complication Comment: Post-operative progress note Anesthesia: Postop Eval II Evaluation Mental status: Awake and Calm Pain Level: 0 nausea: No Vomiting: No Progress Note Post-operative progress note: Nausea better Complications Anesthesia Complication: No 07/31/24 1600 Date Codey Garcia Signature: Date CC: Signed Normal [facility] Special Stain Group Ion - Special Stain Group I -------- Patient Age/Sex Location Account Attending Physician WESTON GAMEZ 38/M MS3 [id number] Dr. Victoria Davey DO Specimen: [id number] Received: 08/01/24 Status: SILVANO Almeida Num: [id number] Spec Type: EGD BIOPSY Subm Dr: DO ZEV Garner OPERATION: EGD with biopsies PRE-OP DIAGNOSIS: Intractable vomiting with nausea, hematemesis TISSUE SUBMITTED: A- Gastric cardia, B- Pyloric sphincter, C- Duodenum MICROSCOPIC DIAGNOSIS A. Gastric cardia, biopsy: Moderate chronic active gastritis. See comment. B. Pyloric sphincter, biopsy: Moderate gastritis. See microscopic description and comment. C. Duodenum, biopsy: Fragments of duodenal mucosa with focal mild non-specific chronic inflammation. . 08/02/2024 COMMENT A. The results of immunohistochemistry for Helicobacter pylori will be reported separately ([id number]). B. Alcian blue/PAS stain with matched control is used in the evaluation of the specimen. MICROSCOPIC DESCRIPTION Slides are reviewed. B. The specimen shows fragments of gastric mucosa with chronic inflammatory cell infiltrates in the lamina propria consisting of lymphocytes and plasma cells, consistent with moderate chronic gastritis. Focal intestinal metaplasia (goblet cell metaplasia) is also noted. GROSS DESCRIPTION A. Received in fixative is one container labeled with the patient's name and designated Gastric cardia biopsy. The specimen consists of multiple irregular fragments of [place] soft tissue that in aggregate measure 0.8 x 0.2 x 0.1 cm. The specimen is totally submitted in one cassette. B. Received in fixative is one container labeled with the patient's name and designated Pyloric sphincter biopsy. The specimen consists of multiple irregular fragments of [place] soft tissue that in aggregate measure 0.6 x 0.5 x 0.1 cm. The specimen is totally submitted in one cassette. C. Received in fixative is one container labeled with the patient's name and designated Duodenum biopsy. The specimen consists of multiple irregular fragments of light de [place] soft tissue that in aggregate measure 0.6 x 0.5 x 0.1 cm. The specimen is totally submitted in Patient Age/Sex Location Account Attending Physician WESTON GAMEZ 38/M MS3 [id number] Dr. Victoria Davey, DO one cassette. 08/01/2024 TC:2 CPT:45117t9,19438 Patient Age/Sex Location Account Attending Physician WESTON GAMEZ 38/M MS3 [id number] Dr. Victoria Davey, DO Signed (signature on file) Dr. Gian Pham MD 08/02/24 1403 Normal [facility] Comment on above: Performed By: #### P SSI ####[facility] [address] [place], [place], [address] Bedside Glucoseon 07-30-2024 FINGERSTICK GLU 142 mg/dL High 74-106 [facility] Comment on above: Result Comment: CORINNA GEMENT OF PATIENT CARE PER NURSING PROTOCOL Performed By: #### L 100.0500, L500.2500 #### [facility] Laboratory [address] [place], [address] FINGERSTICK GLU 212 mg/dL High 74-106 [facility] Comment on above: Result Comment: CORINNA GEMENT OF PATIENT CARE PER NURSING PROTOCOL Performed By: #### L 501.080 ####[facility] [address] [place], [address] FINGERSTICK GLU 197 mg/dL High 74-106 [facility] Comment on above: Result Comment: CORINNA GEMENT OF PATIENT CARE PER NURSING PROTOCOL Performed By: #### L 500.2500 #### [facility] Laboratory [address] [place], [address] CBC W/Diff, Automatedon 07-10 Absolute Lymph 3.12 X10 3/uL Normal 0.83-4.51 [facility] Comment on above: Performed By: #### L 500.4050, L100.0100, L501.2450 ####[facility] [address] [place], [address] Absolute Neut 5.6 X10 3/uL Normal 2.0-7.7 [facility] Comment on above: Performed By: #### L 500.4050, L100.0100, L501.2450 ####[facility] [address] [place], [address] Basophils/100 WBC (Bld) 0.4 % Normal 0-1 [facility] Comment on above: Performed By: #### L 500.4050, L100.0100, L501.2450 ####[facility] [address] [place], [address] Eosinophils/100 WBC (Bld) 0.7 % Normal 0-5 [facility] Comment on above: Performed By: #### L 500.4050, L100.0100, L501.2450 ####[facility] [address] [place], [address] Erythrocyte distribution width (RBC) [Ratio] 12.9 % Normal 11.6-14.6 [facility] Comment on above: Performed By: #### L 500.4050, L100.0100, L501.2450 ####[facility] [address] [place], [address] Hematocrit (Bld) [Volume fraction] 34.8 % Low 40-54 [facility] Comment on above: Performed By: #### L 500.4050, L100.0100, L501.2450 ####[facility] [address] [place], [address] Hemoglobin (Bld) [Mass/Vol] 11.4 g/dL Low 13.0-16.5 [facility] Comment on above: Performed By: #### L 500.4050, L100.0100, L501.2450 ####[facility] [address] [place], [address] IG% 0.200 Normal 0.0-0.9 [facility] Comment on above: Result Comment: IG% - Immature Granulocytes (promyelocytes, myelocytes and metamyelocytes) > 1% indicates that a LEFT SHIFT is Present. Performed By: #### L 500.4050, L100.0100, L501.2450 ####[facility] [address] [place], [address] Lymphocytes/100 WBC (Bld) 31.8 % Normal 19-41 [facility] Comment on above: Performed By: #### L 500.4050, L100.0100, L501.2450 ####[facility] [address] [place], [address] MCH (RBC) [Entitic mass] 28.6 pg Normal 27.0-32.0 [facility] Comment on above: Performed By: #### L 500.4050, L100.0100, L501.2450 ####[facility] [address] [place], [address] MCHC (RBC) [Mass/Vol] 32.8 g/dL Normal 32-36 [facility] Comment on above: Performed By: #### L 500.4050, L100.0100, L501.2450 ####[facility] [address] [place], [address] MCV (RBC) [Entitic vol] 87.4 fL Normal 80-94 [facility] Comment on above: Performed By: #### L 500.4050, L100.0100, L501.2450 ####[facility] [address] [place], [address] Monocytes/100 WBC (Bld) 10.0 % Normal 0-10 [facility] Comment on above: Performed By: #### L 500.4050, L100.0100, L501.2450 ####[facility] [address] [place], [address] Neutrophils/100 WBC (Bld) 56.9 % Normal 47-70 [facility] Comment on above: Performed By: #### L 500.4050, L100.0100, L501.2450 ####[facility] [address] [place], [address] Nucleated RBC (Bld) [#/Vol] 0 10*3/uL Normal 0-5 [facility] Comment on above: Performed By: #### L 500.4050, L100.0100, L501.2450 ####[facility] [address] [place], [address] Platelet mean volume (Bld) [Entitic vol] 9.8 fL Normal 6.2-12.0 [facility] Comment on above: Performed By: #### L 500.4050, L100.0100, L501.2450 ####[facility] [address] [place], [address] Platelets (Bld) [#/Vol] 349 10*3/uL Normal 150-450 [facility] Comment on above: Performed By: #### L 500.4050, L100.0100, L501.2450 ####[facility] [address] [place], [address] RBC (Bld) [#/Vol] 3.98 10*6/uL Low 4.6-6.2 [facility] Comment on above: Performed By: #### L 500.4050, L100.0100, L501.2450 ####[facility] [address] [place], [address] RDW SD 41.4 fl Normal 35.1-43.9 [facility] Comment on above: Performed By: #### L 500.4050, L100.0100, L501.2450 ####[facility] [address] [place], [address] WBC (Bld) [#/Vol] 9.8 10*3/uL Normal 4.4-11.0 [facility] Comment on above: Performed By: #### L 500.4050, L100.0100, L501.2450 ####[facility] [address] [place], [address] Comprehensive Metabolic Prof ilon 07-30-2024 Albumin [Mass/Vol] 3.3 g/dL Normal 3.2-5.0 [facility] Comment on above: Performed By: #### L 500.2500 #### [facility] Laboratory [address] [place], [address] Albumin/Globulin [Mass ratio] 0.9 {ratio} Normal 0.9-2.4 [facility] Comment on above: Performed By: #### L 500.2500 #### [facility] Laboratory [address] [place], [address] ALK P 82 U/L Normal 45-117 [facility] Comment on above: Performed By: #### L 500.2500 #### [facility] Laboratory [address] [place], [address] ALT [Catalytic activity/Vol] 18 U/L Normal 16-61 [facility] Comment on above: Performed By: #### L 500.2500 #### [facility] Laboratory [address] [place], [address] AST [Catalytic activity/Vol] 27 U/L Normal 15-37 [facility] Comment on above: Performed By: #### L 500.2500 #### [facility] Laboratory [address] [place], [address] Bilirubin [Mass/Vol] 0.60 mg/dL Normal 0.20-1.00 [facility] Comment on above: Result Comment: For patients on eltrombopag therapy, use of Dimension [place] TBIL is not recommended. Performed By: #### L 500.2500 #### [facility] Laboratory [address] [place], [address] BUN/CRE 17.4 RATIO Normal 10-20 [facility] Comment on above: Performed By: #### L 500.2500 #### [facility] Laboratory [address] [place], [address] CA,Total 8.5 mg/dL Normal 8.5-10.1 [facility] Comment on above: Performed By: #### L 500.2500 #### [facility] Laboratory [address] [place], [address] Chloride [Moles/Vol] 107 mmol/L Normal 98-107 [facility] Comment on above: Performed By: #### L 500.2500 #### [facility] Laboratory [address] [place], [address] CO2 [Moles/Vol] 22.0 mmol/L Normal 21.0-32.0 [facility] Comment on above: Performed By: #### L 500.2500 #### [facility] Laboratory [address] [place], [address] Creatinine [Mass/Vol] 0.92 mg/dL Normal 0.70-1.30 [facility] Comment on above: Result Comment: The validity of the calculated GFR GFRAA in patients over 70 years has not been determined. Clinical correlation is essential. Performed By: #### L 500.2500 #### [facility] Laboratory [address] [place], [address] ECRCL 98.24 ml/min Normal [facility] Comment on above: Performed By: #### L 500.2500 #### [facility] Laboratory [address] [place], [address] EST GFR - AA 118 mL/min Normal >60 [facility] Comment on above: Result Comment: Afri can Eritrean GFR Calc Performed By: #### L 500.2500 #### [facility] Laboratory [address] [place], [address] GAP 7 Normal 5-15 [facility] Comment on above: Performed By: #### L 500.2500 #### [facility] Laboratory [address] [place], [address] GFR/1.73 sq M.predicted among non-blacks MDRD (S/P/Bld) [Vol rate/Area] 98 mL/min/{1.73_m2} Normal >60 [facility] Comment on above: Result Comment: Non- GFR Calc Performed By: #### L 500.2500 #### [facility] Laboratory [address] [place], [address] Globulin (S) [Mass/Vol] 3.7 g/dL Normal 2.2-4.2 [facility] Comment on above: Performed By: #### L 500.2500 #### [facility] Laboratory [address] [place], [address] Glucose [Mass/Vol] 182 mg/dL High 74-106 [facility] Comment on above: Result Comment: Fast ing Glucose result greater than or equal to 126 mg/dL suggests DIABETES MELLITUS per A.D.A. criteria. Performed By: #### L 500.2500 #### [facility] Laboratory [address] [place], [address] Potassium [Moles/Vol] 4.0 mmol/L Normal 3.5-5.1 [facility] Comment on above: Performed By: #### L 500.2500 #### [facility] Laboratory [address] [place], [address] Sodium [Moles/Vol] 136 mmol/L Normal 136-145 [facility] Comment on above: Performed By: #### L 500.2500 #### [facility] Laboratory [address] [place], [address] T PROT 7.0 g/dL Normal 6.4-8.2 [facility] Comment on above: Performed By: #### L 500.2500 #### [facility] Laboratory [address] [place], [address] Urea nitrogen [Mass/Vol] 16 mg/dL Normal 7-18 [facility] Comment on above: Performed By: #### L 500.2500 #### [facility] Laboratory [address] [place], [address] H AND P Exam - Hospitaliston 07-30-2024 H&P Exam - Hospitalist [facility] Medical Records Department [address] [place] [address] H P Exam - Hospitalist 07/30/24 0049 MR#: [id number] Acct: [id number] Name: WESTON GAMEZ Rep #: [id number] : 1985 38 From: Brenda Hollins MD PCP: Austin Camarena, CARBURETOR REBUILDER-C Status:REG ER Location: ED HPI - General General Date of Admission: 07/30/24 Date of Service: 07/30/24 Chief Complaint: Intractable N/V, abdominal discomfort, recent gastritis dx, blood streaks in emesis. HPI Narrative The patient is a 38 y/o M w/ PMHx: Chronic cannabis use, Anxiety and Depression/Schizo-affectiv e schizophrenia, Chronic migraines, IDDM with chronic neuropathy and chronic gastroparesis, Former Tobacco use, GERD, HTN, recent ED evaluation 07/28/24 secondary to abdominal pain with history of gastroparesis with noted 2 days of diffuse discomfort with nausea and emesis with last bowel movement at that time of ED evaluation in the morning not noted to be bloody or dark and emesis noted to be bilious in appearance with CT abdomen and pelvis with evidence of gastritis with no acute concerning findings and CBC with mild leukocytosis with no marked electrolyte disturbances discharged to home with recommended continued Reglan to usage with follow-up with gastroenterology outpatient who now represents to [facility] ED on 07/28/24 secondary to recurrent epigastric as well as periumbilical abdominal discomfort with intractable nausea and emesis ongoing for the last 12 hours initially feeling good when he left the ED the day prior but had recurrent similar symptoms now noting that his emesis has streaks of blood with inability to keep any of his medications down prompting ED reevaluation. Patient rates his discomfort 7 out of 10 in severity and reports it is more cramping and aching with occasional sharp stabbing especially worsened by palpation. Workup in the ED included T98.4, heart rate 117, BP 132/81, respiratory rate 18, 98% on room air with most recent repeat vitals heart rate 94, BP 155/87, respiratory rate 18, 9% on room air, CBC with WC 11.2, human 12.9, MCV 86.4, platelet 387 with left shift, VBG with POC mixed VBG pCO2 37.2 otherwise not marked appearing, BMP with sodium 132, BUN/creatinine 25/1.26, GFR 68, glucose 244, lipase 35, acetone negative, chest x-ray with no acute cardiopulmonary findings. In the ED patient administered 1 L normal saline, Protonix 40 mg IV x 1, morphine 4 mg IV x 1, Reglan 5 mg IV x 1 as well as Ativan 0.5 mg IV x 1. [facility] Medical History (Updated 07/30/24 @ 01:[address] Brenda Hollins MD) Former tobacco use Cannabis use disorder Hypertension Schizophrenia Anxiety Depression Migraines Type 2 diabetes mellitus with hyperglycemia Schizo-affective schizophrenia Bipolar 1 disorder Diabetes mellitus Home Medications ???Medication ???Instructions ???Recorded ???Last Taken ???Type pen needle, diabetic 32 gauge x #100 ea 03/29/24 Unknown Rx (BD Ultra-Fine Lizzeth Pen Needle) insulin lispro 100 unit/mL 6 unit subcut TID 03/30/24 Unknown History subcutaneous pen (Humalog KwikPen (U-100) Insulin) lisinopril 20 mg tablet 20 mg PO DAILY #30 tabs 05/01/24 Unknown Rx pantoprazole 40 mg tablet,delayed 40 mg PO BID #60 tabs 05/01/24 Unknown Rx release blood-glucose meter,continuous #1 ea 05/04/24 Unknown Rx (Dexcom G7 Medical Geneticist) gabapentin 100 mg capsule 200 mg PO TID 06/06/24 Unknown History insulin pump cart,automated,BT #10 ea 07/05/24 Unknown Rx (Omnipod 5 G6 Pods (Gen 5) subcutaneous cartridge) insulin pump cartridge,automated #1 ea 07/05/24 Unknown Rx dose,BT with controller subcutaneous (Omnipod 5 G6 Intro Kit (Gen 5) subcutaneous cartridge with controller) blood-glucose sensor (Dexcom G6 #3 ea 07/27/24 Unknown Rx Sensor device) blood-glucose transmitter (Dexcom #1 ea 07/27/24 Unknown Rx G6 Transmitter device) dicyclomine 10 mg capsule 10 mg PO TID #90 caps 07/28/24 Unknown Rx prochlorperazine maleate 10 mg 10 mg PO TID PRN nausea and 07/28/24 Unknown Rx tablet vomiting #30 tabs scopolamine base 1 mg over 3 days 1 patch transdermal Q3D #4 ea 07/28/24 Unknown Rx transdermal patch insulin glargine-yfgn 100 unit/mL 12 unit subcut QHS 07/29/24 Unknown History (3 mL) subcutaneous pen metoclopramide HCl 5 mg tablet 5 mg PO Q8H PRN PRN nausea and 07/29/24 Unknown Rx (Reglan) vomiting 7 days #21 tabs Allergy/AdvReac Type Severity Reaction Status Date / Time No Known Allergies Allergy Verified 07/29/24 22:07 Family History Mother Diabetes Sister Diabetes Father CVA (cerebral vascular accident) Myocardial infarction Surgical History (Updated 07/30/24 @ 01:[address] Brenda Hollins MD) No history of previous surgery Social History (Updated 07/30 (more content not included)... Normal [facility] Lipaseon 07-30-2024 Lipase [Catalytic activity/Vol] 31 U/L Normal 13-75 [facility] Comment on above: Result Comment: Lacey emlendez note: LIPASE revised reference range effective 23. New Lipase methodology. Expected to produce lower values than the previous assay method. NEW Reference Range: 13 - 75 U/L Performed By: #### L 500.2500 #### [facility] Laboratory [address] [place], [address] MR/CON.PCM.GIon 07-30-2024 MR/CON.PCM.GI [facility] Medical Records Department [address] [facility] [facility] [place] [address] Consultation - GI 07/30/24 1045 MR#: [id number] Acct: [id number] Name: WESTON GAMEZ Rep #: [id number] : 1985 38 From: Jaycob Friend PCP: Austin Camarena NP-C Status:ADM KINSEY Location: [place] [address] HPI Consult Data Date of Consult: 07/30/24 HPI Narrative Reason for Consultation: Abdominal pain with nausea vomiting HPI Narrative: WESTON GAMEZ, is a 38 M who presented to [facility] ED on 07/29/2024 with intractable nausea and vomiting. Patient is very pleasant and provides a good history. Patient states that his nausea and vomiting started somewhat abruptly about 4 days ago. He then began to have pain in the right upper quadrant or right lower quadrant of his abdomen. Previous for similar presentation back in December CT abdomen pelvis was done at that time and was essentially normal. Labs are notable for a mild leukocytosis, hyperglycemia with blood glucose 278, UA that showed 1000 glucose, 150 urine ketones but acid-base status was normal and findings were otherwise fairly benign. He had borderline sinus tachycardia and was quite hypertensive at that time as well. He had some improvement in his symptoms with IV fluids, Zofran and morphine. Over the last few days, patient has continued to have some episodes of nausea/vomiting and abdominal pain. He essentially has not eaten anything over the past 3 to 4 days. States he has very minimal appetite. Because his symptoms did not improve, he came to the ED today for further evaluation. Vitals were again notable for fairly significant hypertension and mild tachycardia. Labs again showed hyperglycemia with blood glucose 322 and similar UA findings, but bicarb was 17 and he had a mild anion gap. He was given 2 L of IV fluids in the ED as well as Zofran and morphine with some improvement in symptoms. He currently denies any abdominal pain or discomfort. Denies any fevers or chills. Denies any significant change in bowel movements. Denies any lightheadedness or dizziness. No other acute concerns at this time. Due to his intractable nausea/vomiting and abdominal pain and mild DKA, hospitalist is contacted for admission. From the office I see and diagnosed him with severe vomiting syndrome versus marijuana hyperemesis. He said he has not been smoking cigarettes or marijuana for the last couple months and he was actually doing a lot better. What prompted him to come into the ED this time due to his hematemesis seen by his daughter. Currently still has abdominal pain. Some cramping. Still some nausea. [facility] Medical History Former tobacco use Cannabis use disorder Hypertension Schizophrenia Anxiety Depression Migraines Type 2 diabetes mellitus with hyperglycemia Schizo-affective schizophrenia Bipolar 1 disorder Diabetes mellitus Home Medications ???Medication ???Instructions ???Recorded ???Last Taken ???Type pen needle, diabetic 32 gauge x #100 ea 03/29/24 Unknown Rx (BD Ultra-Fine Lizzeth Pen Needle) insulin lispro 100 unit/mL 6 unit subcut TID dm 03/30/24 Unknown History subcutaneous pen (Humalog KwikPen (U-100) Insulin) lisinopril 20 mg tablet 20 mg PO DAILY bp #30 tabs 05/01/24 Unknown Rx pantoprazole 40 mg tablet,delayed 40 mg PO BID gerd #60 tabs 05/01/24 Unknown Rx release blood-glucose meter,continuous #1 ea 05/04/24 Unknown Rx (Dexcom G7 Medical Geneticist) gabapentin 100 mg capsule 200 mg PO TID pain 06/06/24 Unknown History insulin pump cart,automated,BT #10 ea 07/05/24 Unknown Rx (Omnipod 5 G6 Pods (Gen 5) subcutaneous cartridge) insulin pump cartridge,automated #1 ea 07/05/24 Unknown Rx dose,BT with controller subcutaneous (Omnipod 5 G6 Intro Kit (Gen 5) subcutaneous cartridge with controller) blood-glucose sensor (Dexcom G6 #3 ea 07/27/24 Unknown Rx Sensor device) blood-glucose transmitter (Dexcom #1 ea 07/27/24 Unknown Rx G6 Transmitter device) dicyclomine 10 mg capsule 10 mg PO TID abd pain #90 caps 07/28/24 Unknown Rx prochlorperazine maleate 10 mg 10 mg PO TID PRN nausea and 07/28/24 Unknown Rx tablet vomiting #30 tabs scopolamine base 1 mg over 3 days 1 patch transdermal Q3D nausea #4 07/28/24 Unknown Rx transdermal patch ea insulin glargine-yfgn 100 unit/mL 12 unit subcut QHS dm 07/29/24 Unknown History (3 mL) subcutaneous pen metoclopramide HCl 5 mg tablet 5 mg PO Q8H PRN PRN nausea and 07/29/24 Unknown Rx (Reglan) vomiting 7 days #21 tabs Allergy/AdvReac Type Severity Reaction Status Date / Time No Known Allergies Allergy Verified 07/29/24 22:07 Family History Mother Diabetes Sister Diabetes Father CVA (cerebral vascular acci (more content not included)... Normal [facility] Magnesiumon 07-30-2024 Magnesium [Mass/Vol] 1.7 mg/dL Normal 1.6-2.6 [facility] Comment on above: Order Comment: Comme nts: May add to ED labsComments: may add to ED labs Result Comment: Mode rate Hemolysis, Result may be falsely increased. Performed By: #### L 501.2300, L501.5200 ####[facility] [address] [place], [address] Phosphoruson 07-30-2024 Phosphate [Mass/Vol] 2.4 mg/dL Low 2.5-4.9 [facility] Comment on above: Order Comment: Comme nts: May add to ED labsComments: may add to ED labs Performed By: #### L 501.2300, L501.5200 ####[facility] [address] [place], [address] Acetone Serumon 07-29-2024 ACETONE SERUM Negative Normal NEG [facility] Comment on above: Performed By: #### L 501.6900 ####[facility] [address] [place], [address] Basic Metabolic Profile (BMP )on 07-29-2024 BUN/CRE 19.8 RATIO Normal 10-20 [facility] Comment on above: Performed By: #### L 100.0500, L500.2500 #### [facility] Laboratory [address] [place], [address] CA,Total 9.6 mg/dL Normal 8.5-10.1 [facility] Comment on above: Performed By: #### L 100.0500, L500.2500 #### [facility] Laboratory [address] [place], [address] Chloride [Moles/Vol] 99 mmol/L Normal 98-107 [facility] Comment on above: Performed By: #### L 100.0500, L500.2500 #### [facility] Laboratory [address] [place], [address] CO2 [Moles/Vol] 23.0 mmol/L Normal 21.0-32.0 [facility] Comment on above: Performed By: #### L 100.0500, L500.2500 #### [facility] Laboratory [address] [place], [address] Creatinine [Mass/Vol] 1.26 mg/dL Normal 0.70-1.30 [facility] Comment on above: Result Comment: The validity of the calculated GFR GFRAA in patients over 70 years has not been determined. Clinical correlation is essential. Performed By: #### L 100.0500, L500.2500 #### [facility] Laboratory [address] [place], [address] ECRCL 71.73 ml/min Normal [facility] Comment on above: Performed By: #### L 100.0500, L500.2500 #### [facility] Laboratory [address] [place], [address] EST GFR - AA 82 mL/min Normal >60 [facility] Comment on above: Result Comment: Afri can Eritrean GFR Calc Performed By: #### L 100.0500, L500.2500 #### [facility] Laboratory [address] [place], [address] GAP 10 Normal 5-15 [facility] Comment on above: Performed By: #### L 100.0500, L500.2500 #### [facility] Laboratory [address] [place], [address] GFR/1.73 sq M.predicted among non-blacks MDRD (S/P/Bld) [Vol rate/Area] 68 mL/min/{1.73_m2} Normal >60 [facility] Comment on above: Result Comment: Non- GFR Calc Performed By: #### L 100.0500, L500.2500 #### [facility] Laboratory [address] [place], [address] Glucose [Mass/Vol] 244 mg/dL High 74-106 [facility] Comment on above: Result Comment: Gluc ose result greater than or equal to 200 mg/dL suggests DIABETES MELLITUS per A.D.A. criteria. Performed By: #### L 100.0500, L500.2500 #### [facility] Laboratory [address] [place], [address] Potassium [Moles/Vol] 4.7 mmol/L Normal 3.5-5.1 [facility] Comment on above: Result Comment: Mode rate Hemolysis, Result may be falsely increased. Performed By: #### L 100.0500, L500.2500 #### [facility] Laboratory [address] [place], [address] Sodium [Moles/Vol] 132 mmol/L Low 136-145 [facility] Comment on above: Performed By: #### L 100.0500, L500.2500 #### [facility] Laboratory [address] [place], [address] Urea nitrogen [Mass/Vol] 25 mg/dL High 7-18 [facility] Comment on above: Performed By: #### L 100.0500, L500.2500 #### [facility] Laboratory [address] [place], [address] CBC W/Diff, Automatedon 07-10 Absolute Lymph 1.98 X10 3/uL Normal 0.83-4.51 [facility] Comment on above: Performed By: #### L 100.0100 ####[facility] [address] [place], [address] Absolute Neut 8.4 X10 3/uL High 2.0-7.7 [facility] Comment on above: Performed By: #### L 100.0100 ####[facility] [address] [place], [address] Basophils/100 WBC (Bld) 0.3 % Normal 0-1 [facility] Comment on above: Performed By: #### L 100.0100 ####[facility] [address] [place], [address] Eosinophils/100 WBC (Bld) 0.1 % Normal 0-5 [facility] Comment on above: Performed By: #### L 100.0100 ####[facility] [address] [place], [address] Erythrocyte distribution width (RBC) [Ratio] 12.9 % Normal 11.6-14.6 [facility] Comment on above: Performed By: #### L 100.0100 ####[facility] [address] [place], [address] Hematocrit (Bld) [Volume fraction] 38.9 % Low 40-54 [facility] Comment on above: Performed By: #### L 100.0100 ####[facility] [address] [place], [address] Hemoglobin (Bld) [Mass/Vol] 12.9 g/dL Low 13.0-16.5 [facility] Comment on above: Performed By: #### L 100.0100 ####[facility] [address] [place], [address] IG% 0.400 Normal 0.0-0.9 [facility] Comment on above: Result Comment: IG% - Immature Granulocytes (promyelocytes, myelocytes and metamyelocytes) > 1% indicates that a LEFT SHIFT is Present. Performed By: #### L 100.0100 ####[facility] [address] [place], [address] Lymphocytes/100 WBC (Bld) 17.7 % Low 19-41 [facility] Comment on above: Performed By: #### L 100.0100 ####[facility] [address] [place], [address] MCH (RBC) [Entitic mass] 28.7 pg Normal 27.0-32.0 [facility] Comment on above: Performed By: #### L 100.0100 ####[facility] [address] [place], [address] MCHC (RBC) [Mass/Vol] 33.2 g/dL Normal 32-36 [facility] Comment on above: Performed By: #### L 100.0100 ####[facility] [address] [place], [address] MCV (RBC) [Entitic vol] 86.4 fL Normal 80-94 [facility] Comment on above: Performed By: #### L 100.0100 ####[facility] [address] [place], [address] Monocytes/100 WBC (Bld) 5.9 % Normal 0-10 [facility] Comment on above: Performed By: #### L 100.0100 ####[facility] [address] [place], [address] Neutrophils/100 WBC (Bld) 75.6 % High 47-70 [facility] Comment on above: Performed By: #### L 100.0100 ####[facility] [address] [place], [address] Nucleated RBC (Bld) [#/Vol] 0 10*3/uL Normal 0-5 [facility] Comment on above: Performed By: #### L 100.0100 ####[facility] [address] [place], [address] Platelet mean volume (Bld) [Entitic vol] 9.2 fL Normal 6.2-12.0 [facility] Comment on above: Performed By: #### L 100.0100 ####[facility] [address] [place], [address] Platelets (Bld) [#/Vol] 387 10*3/uL Normal 150-450 [facility] Comment on above: Performed By: #### L 100.0100 ####[facility] [address] [place], [address] RBC (Bld) [#/Vol] 4.50 10*6/uL Low 4.6-6.2 [facility] Comment on above: Performed By: #### L 100.0100 ####[facility] [address] [place], [address] RDW SD 40.7 fl Normal 35.1-43.9 [facility] Comment on above: Performed By: #### L 100.0100 ####[facility] [address] [place], [address] WBC (Bld) [#/Vol] 11.2 10*3/uL High 4.4-11.0 [facility] Comment on above: Performed By: #### L 100.0100 ####[facility] [address] [place], [address] Chest 1 View (Portable)on Chest 1 View (Portable) [facility] Imaging Services [address] [place] [address] Chest 1 View (Portable) MR#: [id number] Acct: [id number] Name: WESTON GAMEZ Rep #: [id number] : 1985 M 38 From: Yang [place] MD PCP: Austin Camarena CARBURETOR REBUILDER-C Status: [facility] Study: Chest 1 View (Portable) Date of Exam: 07/29/24 Exam# [id number] Ordering Dr: Luis Alberto Walker MD [id number] STUDY: X-RAY CHEST REASON FOR EXAM: Male, 38 years old. abd pain, n/v w/ hematemesis, r/o perf TECHNIQUE: Single AP portable view of the chest. COMPARISON: 10/08/2014 FINDINGS: The lungs are clear and expanded. There is no demonstrated pleural abnormality. Normal size heart. Normal mediastinum and asael. Normal visualized pulmonary arteries. Normal visualized aortic arch and descending thoracic aorta. Normal visualized thoracic spine. Normal visualized ribs, clavicles, and shoulders. There is no demonstrated abnormality of the visualized soft tissue structures of the upper abdomen. RAD/Chest 1 View (Portable) IMPRESSION: Normal x-ray examination of the chest. Electronically Signed: Yang [place] MD at 23:46 EDT , CC: CARBURETOR REBUILDER-C Austin Camarena; Dr. Luis Alberto Walker MD Ultrasound Applications Specialist: Signed Normal [facility] Emergency Department Summary on 07-29-2024 Emergency Department Summary [facility] Medical Records Department [address] [place] [address] Emergency Department Summary 07/29/24 MR#: [id number] Acct: [id number] Name: WESTON GAMEZ Rep #: [id number] : 1985 38 From: Luis Alberto Walker MD PCP: Austin Camarena CARBURETOR REBUILDER-C Status:[facility] Location: [place] [id number] HPI HPI - GI History of Present Illness Chief Complaint: Nausea/Vomiting Informant: patient and spouse/S.O. Narrative Narrative: 38-year-old diabetic insulin-dependent with history of gastroparesis has been having recurrent periumbilical/diffuse abdominal pain and intractable vomiting all day for over 11 hours, here yesterday for same symptoms. He was good overnight after leaving the ER but then in the morning started having it all over again and has been vomiting to the point of vomiting up streaks of blood as well. The pain is similar in quality and location that it was yesterday. The only symptom that is new is the blood. He was prescribed medication he is not able to keep down. [facility] Medical History Hypertension Substance abuse Schizophrenia Anxiety Depression Smoker Migraines Type 2 diabetes mellitus with hyperglycemia Schizo-affective schizophrenia Bipolar 1 disorder Diabetes mellitus Home Medications ???Medication ???Instructions ???Recorded ???Last Taken ???Type pen needle, diabetic 32 gauge x #100 ea 03/29/24 Unknown Rx (BD Ultra-Fine Lizzeth Pen Needle) insulin lispro 100 unit/mL 6 unit subcut TID 03/30/24 Unknown History subcutaneous pen (Humalog KwikPen (U-100) Insulin) lisinopril 20 mg tablet 20 mg PO DAILY #30 tabs 05/01/24 Unknown Rx pantoprazole 40 mg tablet,delayed 40 mg PO BID #60 tabs 05/01/24 Unknown Rx release blood-glucose meter,continuous #1 ea 05/04/24 Unknown Rx (Dexcom G7 Medical Geneticist) gabapentin 100 mg capsule 200 mg PO TID 06/06/24 Unknown History insulin pump cart,automated,BT #10 ea 07/05/24 Unknown Rx (Omnipod 5 G6 Pods (Gen 5) subcutaneous cartridge) insulin pump cartridge,automated #1 ea 07/05/24 Unknown Rx dose,BT with controller subcutaneous (Omnipod 5 G6 Intro Kit (Gen 5) subcutaneous cartridge with controller) blood-glucose sensor (Dexcom G6 #3 ea 07/27/24 Unknown Rx Sensor device) blood-glucose transmitter (Dexcom #1 ea 07/27/24 Unknown Rx G6 Transmitter device) dicyclomine 10 mg capsule 10 mg PO TID #90 caps 07/28/24 Unknown Rx prochlorperazine maleate 10 mg 10 mg PO TID PRN nausea and 07/28/24 Unknown Rx tablet vomiting #30 tabs scopolamine base 1 mg over 3 days 1 patch transdermal Q3D #4 ea 07/28/24 Unknown Rx transdermal patch insulin glargine-yfgn 100 unit/mL 12 unit subcut QHS 07/29/24 Unknown History (3 mL) subcutaneous pen metoclopramide HCl 5 mg tablet 5 mg PO Q8H PRN PRN nausea and 07/29/24 Unknown Rx (Reglan) vomiting 7 days #21 tabs Allergy/AdvReac Type Severity Reaction Status Date / Time No Known Allergies Allergy Verified 07/29/24 22:07 Family History Mother Diabetes Sister Diabetes Father CVA (cerebral vascular accident) Myocardial infarction Social History household members: spouse Smoking Status: Current some day smoker tobacco type: cigarettes Tobacco: How many years used: 10 Electronic Cigarette Use: without nicotine second hand exposure: No alcohol intake: former substance use type: marijuana ROS ROS ED Constitutional Constitutional ED: Reports fatigue; Denies chills or fever(s) Eyes Eyes: Denies change in vision or diplopia ENT ENT ED: Denies rhinorrhea or sore throat Cardiovascular Cardiovascular: Denies chest pain or palpitations Respiratory/Chest Respiratory/Chest: Denies cough or dyspnea Gastrointestinal Gastrointestinal: Reports abdominal pain, hematemesis, nausea and vomiting; Denies diarrhea, hematochezia or melena Genitourinary Genitourinary ED: Denies dysuria or hematuria Musculoskeletal Musculoskeletal: Denies back pain or neck pain Integumentary Denies abscess or rash Neurologic Neurologic: Denies headache(s), paresthesias or weakness Psychiatric Psychiatric: Denies suicidal thoughts EXAM Physical Exam Const Vital Signs: 07/29/24 22:07 07/29/24 23:27 Temperature 98.4 F Temperature Source Temporal Pulse Rate 117 H 94 Respiratory Rate 18 18 Blood Pressure 132/81 H 155/87 H Blood Pressure Mean 98 109 Pulse Ox 98 99 Oxygen Delivery Method Room Air Room Air Positive well nourished and well developed Constitutional Narrative: Uncomfortable and ill-appearing holding his abdomen General Appearance ED: well developed HEENT Reports dry mucous membranes (more content not included)... Normal [facility] Lipaseon 07-29-2024 Lipase [Catalytic activity/Vol] 35 U/L Normal 13-75 [facility] Comment on above: Result Comment: Lacey melendez note: LIPASE revised reference range effective 23. New Lipase methodology. Expected to produce lower values than the previous assay method. NEW Reference Range: 13 - 75 U/L Performed By: #### L 100.0500, L500.2500 #### [facility] Laboratory [address] [place], [place], [address] Venous Blood Gason 4 Blood Gas Type TERA Normal [facility] Comment on above: Performed By: #### L 500.2500 #### [facility] Laboratory [address] [place], [place], [address] CO2 [Moles/Vol] 23 mmol/L Normal 23-33 [facility] Comment on above: Performed By: #### L 500.2500 #### [facility] Laboratory [address] [place], [address] FI02 21.0 Normal [facility] Comment on above: Performed By: #### L 500.2500 #### [facility] Laboratory [address] [place], [address] HCO3 (Bld) [Moles/Vol] 22 mmol/L Normal 22-26 [facility] Comment on above: Performed By: #### L 500.2500 #### [facility] Laboratory [address] [place], [address] O2 Delivery Dev Room Air Normal [facility] Comment on above: Performed By: #### L 500.2500 #### [facility] Laboratory [address] [place], [address] SITE Not entered Normal [facility] Comment on above: Performed By: #### L 500.2500 #### [facility] Laboratory [address] [place], [address] VBG BE -3 mmol/L Low -1.0-3.5 [facility] Comment on above: Performed By: #### L 500.2500 #### [facility] Laboratory [address] [place], [address] VBG pCO2 37.2 mmHg Low 41-51 [facility] Comment on above: Performed By: #### L 500.2500 #### [facility] Laboratory [address] [place], [address] VBG pH 7.38 Normal 7.32-7.42 [facility] Comment on above: Performed By: #### L 500.2500 #### [facility] Laboratory [address] [place], [address] VBG PO2 35 mmHg Normal 25-40 [facility] Comment on above: Performed By: #### L 500.2500 #### [facility] Laboratory [address] [place], [address] VBG SO2 66 Normal 50-70 [facility] Comment on above: Performed By: #### L 500.2500 #### [facility] Laboratory [address] [place], [address] Abdomen/Pelvis W IV Cont ONL Yon 07-28-2024 Abdomen/Pelvis W IV Cont ONLY [facility] Imaging Services [address] [address] Abdomen/Pelvis W IV Cont ONLY MR#: [id number] Acct: [id number] Name: WESTON GAMEZ Rep #: [id number] : 1985 M 38 From: Lupillo Mejia MD PCP: JIE Geller Status: REG ER Study: Abdomen/Pelvis W IV Cont ONLY Date of Exam: Exam# [id number] Ordering Dr: Jose R Osorio DO [id number] INDICATION: abdominal pain EXAMINATION: CT Abdomen And Pelvis W/ Contrast Injection TECHNIQUE: Helically acquired images were obtained of the abdomen and pelvis with sagittal and coronal reconstructed images. Individualized dose optimization techniques were used for this CT. IV contrast dosage and agent: 100 mL of Isovue-370. Oral contrast: None. COMPARISON: 05/14/2024 CT. FINDINGS: VESSELS: No abdominal aortic aneurysm or dissection. LIVER: No evidence of a mass. No intrahepatic or extrahepatic biliary duct dilation. GALLBLADDER: No calcified stones. No evidence of cholecystitis. PANCREAS: No focal solid or cystic mass. No evidence of pancreatitis. SPLEEN: Normal. ADRENAL GLANDS: Normal. KIDNEYS AND URETERS: No urinary tract stone. No hydronephrosis or hydroureter. No significant asymmetric perinephric stranding. URINARY BLADDER: Unremarkable. BOWEL: No evidence of diverticulosis or diverticulitis. Appendix appears normal. No evidence of bowel obstruction. Thickening of the gastric wall and folds. REPRODUCTIVE ORGANS: No evidence of a pelvic mass. PERITONEUM: No intraabdominal free fluid or free air. LYMPH NODES: No pathologically enlarged mesenteric or retroperitoneal lymph nodes. ABDOMINAL WALL: No abdominal or pelvic wall hernia. BONES: No acute abnormality. LOWER CHEST: Visualized lung bases are unremarkable. CT/Abdomen/Pelvis W IV Cont ONLY IMPRESSION: Thickening of the gastric wall and folds which is a nonspecific finding but may represent gastritis if correlated clinically. No other evidence of an acute intra-abdominal abnormality. Electronically Signed: Lupillo Mejia DO at 23:40 EDT , CC: JIE Camarena; Dr. Jose R Osorio DO Ultrasound Applications Specialist: Signed Normal [facility] CBC W/Diff, Automatedon 07-10 0-2023 Absolute Lymph 1.82 X10 3/uL Normal 0.83-4.51 [facility] Comment on above: Performed By: #### L 500.4050, L100.0100, L501.2450 #### [facility] Laboratory [address] [place], [address] Absolute Neut 9.5 X10 3/uL High 2.0-7.7 [facility] Comment on above: Performed By: #### L 500.4050, L100.0100, L501.2450 #### [facility] Laboratory [address] [place], [address] Basophils/100 WBC (Bld) 0.7 % Normal 0-1 [facility] Comment on above: Performed By: #### L 500.4050, L100.0100, L501.2450 #### [facility] Laboratory [address] [place], [address] Eosinophils/100 WBC (Bld) 0.2 % Normal 0-5 [facility] Comment on above: Performed By: #### L 500.4050, L100.0100, L501.2450 #### [facility] Laboratory [address] [place], [address] Erythrocyte distribution width (RBC) [Ratio] 12.5 % Normal 11.6-14.6 [facility] Comment on above: Performed By: #### L 500.4050, L100.0100, L501.2450 #### [facility] Laboratory [address] [place], [address] Hematocrit (Bld) [Volume fraction] 38.9 % Low 40-54 [facility] Comment on above: Performed By: #### L 500.4050, L100.0100, L501.2450 #### [facility] Laboratory [address] [place], [address] Hemoglobin (Bld) [Mass/Vol] 12.9 g/dL Low 13.0-16.5 [facility] Comment on above: Performed By: #### L 500.4050, L100.0100, L501.2450 #### [facility] Laboratory [address] [place], [address] IG% 0.300 Normal 0.0-0.9 [facility] Comment on above: Result Comment: IG% - Immature Granulocytes (promyelocytes, myelocytes and metamyelocytes) > 1% indicates that a LEFT SHIFT is Present. Performed By: #### L 500.4050, L100.0100, L501.2450 #### [facility] [address] [place], [address] Lymphocytes/100 WBC (Bld) 14.8 % Low 19-41 [facility] Comment on above: Performed By: #### L 500.4050, L100.0100, L501.2450 #### [facility] [address] [place], [address] MCH (RBC) [Entitic mass] 28.5 pg Normal 27.0-32.0 [facility] Comment on above: Performed By: #### L 500.4050, L100.0100, L501.2450 #### [facility] [address] [place], [address] MCHC (RBC) [Mass/Vol] 33.2 g/dL Normal 32-36 [facility] Comment on above: Performed By: #### L 500.4050, L100.0100, L501.2450 #### [facility] [address] [place], [address] MCV (RBC) [Entitic vol] 86.1 fL Normal 80-94 [facility] Comment on above: Performed By: #### L 500.4050, L100.0100, L501.2450 #### [facility] [address] [place], [address] Monocytes/100 WBC (Bld) 6.4 % Normal 0-10 [facility] Comment on above: Performed By: #### L 500.4050, L100.0100, L501.2450 #### [facility] [address] [place], [address] Neutrophils/100 WBC (Bld) 77.6 % High 47-70 [facility] Comment on above: Performed By: #### L 500.4050, L100.0100, L501.2450 #### [facility] [address] [place], [address] Nucleated RBC (Bld) [#/Vol] 0 10*3/uL Normal 0-5 [facility] Comment on above: Performed By: #### L 500.4050, L100.0100, L501.2450 #### [facility] [address] [place], [address] Platelet mean volume (Bld) [Entitic vol] 9.7 fL Normal 6.2-12.0 [facility] Comment on above: Performed By: #### L 500.4050, L100.0100, L501.2450 #### [facility] [address] [place], [address] Platelets (Bld) [#/Vol] 385 10*3/uL Normal 150-450 [facility] Comment on above: Performed By: #### L 500.4050, L100.0100, L501.2450 #### [facility] [address] [place], [address] RBC (Bld) [#/Vol] 4.52 10*6/uL Low 4.6-6.2 [facility] Comment on above: Performed By: #### L 500.4050, L100.0100, L501.2450 #### [facility] [address] [place], [address] RDW SD 39.4 fl Normal 35.1-43.9 [facility] Comment on above: Performed By: #### L 500.4050, L100.0100, L501.2450 #### [facility] [address] [place], [address] WBC (Bld) [#/Vol] 12.3 10*3/uL High 4.4-11.0 [facility] Comment on above: Performed By: #### L 500.4050, L100.0100, L501.2450 #### [facility] [address] [place], [address] Comprehensive Metabolic Prof ilon 07-28-2024 Albumin [Mass/Vol] 4.1 g/dL Normal 3.2-5.0 [facility] Comment on above: Performed By: #### L 500.4050, L100.0100, L501.2450 #### [facility] [address] [place], [address] Albumin/Globulin [Mass ratio] 0.9 {ratio} Normal 0.9-2.4 [facility] Comment on above: Performed By: #### L 500.4050, L100.0100, L501.2450 #### [facility] [address] [place], [address] ALK P 110 U/L Normal 45-117 [facility] Comment on above: Performed By: #### L 500.4050, L100.0100, L501.2450 #### [facility] [address] [place], [address] ALT [Catalytic activity/Vol] 28 U/L Normal 16-61 [facility] Comment on above: Performed By: #### L 500.4050, L100.0100, L501.2450 #### [facility] [address] [place], [address] AST [Catalytic activity/Vol] 41 U/L High 15-37 [facility] Comment on above: Performed By: #### L 500.4050, L100.0100, L501.2450 #### [facility] [address] [place], [address] Bilirubin [Mass/Vol] 0.40 mg/dL Normal 0.20-1.00 [facility] Comment on above: Result Comment: For patients on eltrombopag therapy, use of Dimension [place] TBIL is not recommended. Performed By: #### L 500.4050, L100.0100, L501.2450 #### [facility] [address] [place], [address] BUN/CRE 17.5 RATIO Normal 10-20 [facility] Comment on above: Performed By: #### L 500.4050, L100.0100, L501.2450 #### [facility] [address] [place], [address] CA,Total 9.3 mg/dL Normal 8.5-10.1 [facility] Comment on above: Performed By: #### L 500.4050, L100.0100, L501.2450 #### [facility] [address] [place], [address] Chloride [Moles/Vol] 100 mmol/L Normal 98-107 [facility] Comment on above: Performed By: #### L 500.4050, L100.0100, L501.2450 #### [facility] [address] [place], [address] CO2 [Moles/Vol] 21.0 mmol/L Normal 21.0-32.0 [facility] Comment on above: Performed By: #### L 500.4050, L100.0100, L501.2450 #### [facility] [address] [place], [address] Creatinine [Mass/Vol] 1.03 mg/dL Normal 0.70-1.30 [facility] Comment on above: Result Comment: The validity of the calculated GFR GFRAA in patients over 70 years has not been determined. Clinical correlation is essential. Performed By: #### L 500.4050, L100.0100, L501.2450 #### [facility] [address] [place], [address] ECRCL 87.75 ml/min Normal [facility] Comment on above: Performed By: #### L 500.4050, L100.0100, L501.2450 #### [facility] [address] [place], [address] EST GFR - AA 104 mL/min Normal >60 [facility] Comment on above: Result Comment: Afri can Eritrean GFR Calc Performed By: #### L 500.4050, L100.0100, L501.2450 #### [facility] [address] [place], [address] GAP 12 Normal 5-15 [facility] Comment on above: Performed By: #### L 500.4050, L100.0100, L501.2450 #### [facility] [address] [place], [address] GFR/1.73 sq M.predicted among non-blacks MDRD (S/P/Bld) [Vol rate/Area] 86 mL/min/{1.73_m2} Normal >60 [facility] Comment on above: Result Comment: Non- GFR Calc Performed By: #### L 500.4050, L100.0100, L501.2450 #### [facility] [address] [place], [address] Globulin (S) [Mass/Vol] 4.6 g/dL High 2.2-4.2 [facility] Comment on above: Performed By: #### L 500.4050, L100.0100, L501.2450 #### [facility] [address] [place], [address] Glucose [Mass/Vol] 259 mg/dL High 74-106 [facility] Comment on above: Result Comment: Gluc ose result greater than or equal to 200 mg/dL suggests DIABETES MELLITUS per A.D.A. criteria. Performed By: #### L 500.4050, L100.0100, L501.2450 #### [facility] [address] [place], [address] Potassium [Moles/Vol] 3.7 mmol/L Normal 3.5-5.1 [facility] Comment on above: Performed By: #### L 500.4050, L100.0100, L501.2450 #### [facility] [address] [place], [address] Sodium [Moles/Vol] 133 mmol/L Low 136-145 [facility] Comment on above: Performed By: #### L 500.4050, L100.0100, L501.2450 #### [facility] [address] [place], [address] T PROT 8.7 g/dL High 6.4-8.2 [facility] Comment on above: Performed By: #### L 500.4050, L100.0100, L501.2450 #### [facility] [address] [place], [address] Urea nitrogen [Mass/Vol] 18 mg/dL Normal 7-18 [facility] Comment on above: Performed By: #### L 500.4050, L100.0100, L501.2450 #### [facility] [address] [place], [address] Emergency Department Summary on 07-28-2024 Emergency Department Summary [facility] Medical Records Department [address] [place] [address] Emergency Department Summary 07/28/24 MR#: [id number] Acct: [id number] Name: WESTON GAMEZ Rep #: [id number] : 1985 38 From: Jose R Osorio DO PCP: Austin Camarena NP-C Status:REG ER Location: ED HPI History of Present Illness Chief Complaint: Abd Pain PFSH [facility] Medical History Hypertension Substance abuse Schizophrenia Anxiety Depression Smoker Migraines Type 2 diabetes mellitus with hyperglycemia Schizo-affective schizophrenia Bipolar 1 disorder Diabetes mellitus Home Medications ???Medication ???Instructions ???Recorded ???Last Taken ???Type insulin glargine-yfgn 100 unit/mL 15 unit (0.15 mL) subcut QHS #15 mL 01/29/24 Unknown Rx (3 mL) subcutaneous pen pen needle, diabetic 32 gauge x #100 ea 03/29/24 Unknown Rx 5/32 (BD Ultra-Fine Lizzeth Pen Needle) insulin lispro 100 unit/mL 5 unit subcut TID 03/30/24 Unknown History subcutaneous pen (Humalog KwikPen (U-100) Insulin) lisinopril 20 mg tablet 20 mg PO DAILY #30 tabs 05/01/24 Unknown Rx pantoprazole 40 mg tablet,delayed 40 mg PO BID #60 tabs 05/01/24 Unknown Rx release blood-glucose meter,continuous #1 ea 05/04/24 Unknown Rx (Dexcom G7 Medical Geneticist) gabapentin 100 mg capsule 200 mg PO TID 06/06/24 Unknown History insulin pump cart,automated,BT #10 ea 07/05/24 Unknown Rx (Omnipod 5 G6 Pods (Gen 5) subcutaneous cartridge) insulin pump cartridge,automated #1 ea 07/05/24 Unknown Rx dose,BT with controller subcutaneous (Omnipod 5 G6 Intro Kit (Gen 5) subcutaneous cartridge with controller) blood-glucose sensor (Dexcom G6 #3 ea 07/27/24 Unknown Rx Sensor device) blood-glucose transmitter (Dexcom #1 ea 07/27/24 Unknown Rx G6 Transmitter device) dicyclomine 10 mg capsule 10 mg PO TID #90 caps 07/28/24 Unknown Rx prochlorperazine maleate 10 mg 10 mg PO TID PRN nausea and 07/28/24 Unknown Rx tablet vomiting #30 tabs scopolamine base 1 mg over 3 days 1 patch transdermal Q3D #4 ea 07/28/24 Unknown Rx transdermal patch metoclopramide HCl 5 mg tablet 5 mg PO Q8H PRN PRN nausea and 07/29/24 Unknown Rx (Reglan) vomiting 7 days #21 tabs Allergy/AdvReac Type Severity Reaction Status Date / Time No Known Allergies Allergy Verified 07/28/24 22:16 Family History Mother Diabetes Sister Diabetes Father CVA (cerebral vascular accident) Myocardial infarction Social History household members: spouse Smoking Status: Current some day smoker tobacco type: cigarettes Tobacco: How many years used: 10 Electronic Cigarette Use: without nicotine second hand exposure: No alcohol intake: former substance use type: marijuana EXAM Physical Exam Const Vital Signs: 07/28/24 22:15 07/28/24 23:46 07/29/24 00:15 Temperature 97.6 F L 97.7 F L Temperature Source Temporal Pulse Rate 95 72 70 Respiratory Rate 20 H 17 17 Blood Pressure 187/104 H 137/57 H 151/90 H Blood Pressure Mean 131 83 110 Pulse Ox 100 99 97 Oxygen Delivery Method Room Air [facility] Narrative Medical decision making narrative: HISTORY OF PRESENT ILLNESS: 38-year-old male history of hypertension, schizophrenia, depression, type 2 diabetes, schizoaffective disorder, bipolar disorder presents abdominal pain. Per triage note the patient states history of gastroparesis. He further states he has had 2 days of diffuse abdominal pain intractable nausea and vomiting. His last bowel movement was this morning. It was not dark or bloody. He denies any bilious nature to his vomitus. He denies any hematemesis. Denies history of abdominal surgeries. REVIEW OF SYSTEMS: Pertinent positives: Abdominal pain Pertinent negatives: Melena, hematochezia, dysuria, chest pain PHYSICAL EXAM: Nursing triage notes reviewed, Vital signs reviewed Constitutional: please see [facility] HENT: MMM Eyes: Pupils equal round and reactive to light, Extraocular muscles intact Neck: No stridor, no JVD, full neck ROM Lungs: Clear to auscultation, No wheezing or rales. No increased work of breathing, no conversational dyspnea, no accessory muscle use, no nasal flaring. No respiratory distress noted Heart: Regular rate and rhythm, No murmurs, No rubs and No gallops, 2+ distal pulses (radial, femoral, posterior tibial) in all extremities Abdomen: Soft, diffuse TTP but no rigidity, rebound or guarding, no obvious peritoneal signs, no palpable pulsatile abdominal masses, no auscultated abdominal bruit : No CVAT Extremities: No edema Neuro: No focal neurological deficits, cranial nerves II through XII intact, 5/5 (more content not included)... Normal [facility] Lipaseon 07-28-2024 Lipase [Catalytic activity/Vol] 20 U/L Normal 13-75 [facility] Comment on above: Result Comment: Lacey melendez note: LIPASE revised reference range effective 23. New Lipase methodology. Expected to produce lower values than the previous assay method. NEW Reference Range: 13 - 75 U/L Performed By: #### L 500.4050, L100.0100, L501.2450 #### [facility] [address] [place], [address] Endocrinology Visit Reporton 07-05-2024 Endocrinology Visit Report [facility] [address] [place] [address] OFFICE VISIT Date of Service: 07/05/24 MR#: [id number] Acct: [id number] Name: WESTON GAMEZ Rep #: [id number] : 1985 Provider: JIE phelan Age/Sex: 38/M Location: [facility] Status: Signed Intake Vital Signs 04/06/24 09:51 05/14/24 14:50 07/05/24 10:09 Height 5 ft 6 in 5 ft 6 in 5 ft 6 in Weight: 142 lb 8 oz 152 lb BMI 23.0 24.5 BP 121/102 H 94/62 Blood Pressure Location Lt brachial Respiration 20 H Pulse 103 H 101 H Pulse Source Monitor Temp 97.6 F L Temp Source Temporal Pulse Oximetry (%) 100 97 Oxygen Delivery Method room air Intake Visit Reasons: 3 M FU Chief Complaint: f/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 Accompanied by: Self Is patient in pain?: No Allergies No Known Allergies Allergy (Verified 07/05/24 10:14) Medications ???Medication ???Instructions ???Recorded ???Confirmed ???Type insulin glargine-yfgn 100 unit/mL 15 unit (0.15 mL) subcut QHS #15 mL 01/29/24 07/05/24 Rx (3 mL) subcutaneous pen pen needle, diabetic 32 gauge x #100 ea 03/29/24 07/05/24 Rx (BD Ultra-Fine Lizzeth Pen Needle) insulin lispro 100 unit/mL 5 unit subcut TID 03/30/24 07/05/24 History subcutaneous pen (Humalog KwikPen (U-100) Insulin) blood-glucose sensor (Picturelife G7 #3 ea 04/06/24 07/05/24 Rx Sensor device) lisinopril 20 mg tablet 20 mg PO DAILY #30 tabs 05/01/24 07/05/24 Rx metoclopramide HCl 5 mg tablet 5 mg PO Q6H #120 tabs 05/01/24 07/05/24 Rx pantoprazole 40 mg tablet,delayed 40 mg PO BID #60 tabs 05/01/24 07/05/24 Rx release blood-glucose meter,continuous #1 ea 05/04/24 07/05/24 Rx (Dexcom G7 Medical Geneticist) gabapentin 100 mg capsule 200 mg PO TID 06/06/24 07/05/24 History insulin pump cart,automated,BT #10 ea 07/05/24 07/05/24 Rx (Omnipod 5 G6 Pods (Gen 5) subcutaneous cartridge) insulin pump cartridge,automated #1 ea 07/05/24 07/05/24 Rx dose,BT with controller subcutaneous (Omnipod 5 G6 Intro Kit (Gen 5) subcutaneous cartridge with controller) PFSH Medical History Hypertension Substance abuse Schizophrenia Anxiety Depression Smoker Migraines Type 2 diabetes mellitus with hyperglycemia Schizo-affective schizophrenia Bipolar 1 disorder Diabetes mellitus Family History Mother Diabetes Sister Diabetes Father CVA (cerebral vascular accident) Myocardial infarction Social History household members: spouse Smoking Status: Current some day smoker tobacco type: cigarettes Tobacco: How many years used: 10 Electronic Cigarette Use: without nicotine second hand exposure: No alcohol intake: former substance use type: marijuana HPI HPI Chief Complaint: f/u diabetes Details: WESTON GAMEZ, is a 38 M who presents to the office today for evaluation and management of diabetes. A1C today is 8.8%, increased from 04/06/24 at 7.7%. This elevation is surprising to him. His Dexcom has recently been losing signal; however, TIR over the last 90 days is 77%- this does not correlate with 8%+ A1C. Currently taking Lantus 12 u once daily and Humalog 6 u TIDCM, 3 u with snacks, +SSI. Denies any significant episode of hypoglycemia that has required assistance from others. BP controlled. Currently taking lisinopril 20 mg once daily. Reports compliance with medication. Tolerating well. Labs are up to date. He has URI symptoms, he has been taking Sudafed for symptom relief. This is likely contributing to mild tachycardia. ROS ENT ENT: Positive for nasal congestion and nasal discharge Musc Musculoskeletal: Positive for numbness and tingling Neuro Neurology: Positive for numbness and tingling Exam Const General: cooperative, healthy appearing, comfortable and no acute distress Nutritional Appearance: average body habitus Orientation: alert, awake and oriented x3 HENMT Head: normal to inspection Ears: hearing grossly normal bilaterally Nose: external nose normal Face and sinus: normal facial exam Eyes General: appearance normal, both eyes and all related structures Alignment and Position: alignment normal Sclera: sclerae normal Neck Neck: normal visual inspection Carotids: normal carotid upstroke Chest Chest palpation inspection: normal inspection of the chest Resp Effort Inspection: normal respiratory effort, able to speak in complete sentences, symmetric chest movement, normal respiratory pattern, no audible wheezes and no cough Auscultation: Bilateral: Clear to Auscultation Cardio Rate: tachycardic Rhythm: regular rhythm Heart Sounds (more content not included)... Normal [facility] .Auto Diffon 05-05-2024 Basophil, Absolute 0.1 10 3/mcL Normal 0.0-0.2 [facility] ([place]) Comment on above: Performed By: #### C TRISTEN NINO MDW, GFR, MG, CBC, ADIFF #### [address] [address] Basophils/100 WBC (Bld) 0.5 % Normal 0.0-2.5 [facility] ([place]) Comment on above: Performed By: #### C TRISTEN NINO MDW, GFR, MG, CBC, ADIFF #### [address] [address] Eosinophil, Absolute 0.0 10 3/mcL Normal 0.0-0.4 [facility] ([place]) Comment on above: Performed By: #### C TRISTEN NINO MDW, GFR, MG, CBC, ADIFF #### [address] [address] Eosinophils/100 WBC (Bld) 0.4 % Normal 0.0-7.0 [facility] ([place]) Comment on above: Performed By: #### C MP, ANEU, MDW, GFR, MG, CBC, ADIFF #### [address] [address] Lymphocyte, Absolute 3.2 10 3/mcL Normal 0.8-3.9 [facility] ([place]) Comment on above: Performed By: #### C MICA, TRISTEN, MDW, GFR, MG, CBC, ADIFF #### [address] [address] Lymphocytes/100 WBC (Bld) 26.3 % Normal 10.0-50.0 [facility] ([place]) Comment on above: Performed By: #### C MICA, TRISTEN, MDW, GFR, MG, CBC, ADIFF #### [address] [address] Monocyte, Absolute 1.1 10 3/mcL High 0.2-1.0 [facility] ([place]) Comment on above: Performed By: #### C MICA, TRISTEN, W, GFR, MG, CBC, ADIFF #### [address] [address] Monocytes/100 WBC (Bld) 8.9 % Normal 1.7-13.0 [facility] ([place]) Comment on above: Performed By: #### C TRSITEN NINO MDW, GFR, MG, CBC, ADIFF #### [address] [address] Neutrophils/100 WBC (Bld) 63.9 % Normal 37.0-80.0 [facility] ([place]) Comment on above: Performed By: #### C TRISTEN NINO MDW, GFR, MG, CBC, ADIFF #### [address] [address] .GFRon 05-05-2024 GFR Non- 39 ml/min/1.73sqm Normal [facility] ([place]) Comment on above: Result Comment: GFR Population mean for , Non- Americans Ages 20-29 = 116 mL/min/1.73 sq.m. Ages 30-39 = 107 mL/min/1.73 sq.m. Ages 40-49 = 99 mL/min/1.73 sq.m. Ages 50-59 = 93 mL/min/1.73 sq.m. Ages 60-69 = 85 mL/min/1.73 sq.m. Ages 70+ = 75 mL/min/1.73 sq.m. Chronic Kidney Disease: Less than 60 mL/min/1.73 square meters End Stage Renal Disease: Less than 15 mL/min/1.73 square meters Performed By: #### C MP, ANEU, MDW, GFR, MG, CBC, ADIFF #### [address] [address] GFR 48 ml/min/1.73sqm Normal [facility] ([place]) Comment on above: Result Comment: GFR Population mean for , Non- Americans Ages 20-29 = 116 mL/min/1.73 sq.m. Ages 30-39 = 107 mL/min/1.73 sq.m. Ages 40-49 = 99 mL/min/1.73 sq.m. Ages 50-59 = 93 mL/min/1.73 sq.m. Ages 60-69 = 85 mL/min/1.73 sq.m. Ages 70+ = 75 mL/min/1.73 sq.m. Chronic Kidney Disease: Less than 60 mL/min/1.73 square meters End Stage Renal Disease: Less than 15 mL/min/1.73 square meters Performed By: #### C MP, ANEU, MDW, GFR, MG, CBC, ADIFF #### [address] [address] .MDWon 05-05-2024 Monocyte Distribution Width 14.94 Normal 0.00-20.00 [facility] ([place]) Comment on above: Result Comment: For ED adult patients suspected of sepsis, MDW<=20.0 does not rule out sepsis or risk of sepsis Performed By: #### C MP, ANEU, MDW, GFR, MG, CBC, ADIFF #### [address] [address] .NEUABSon 05-05-2024 Neutrophil, Absolute 7.9 10 3/mcL High 2.9-6.2 [facility] ([place]) Comment on above: Performed By: #### C MP, ANEU, MDW, GFR, MG, CBC, ADIFF #### [address] [address] CBCon 05-05-2024 Erythrocyte distribution width (RBC) [Ratio] 14.2 % Normal 11.5-14.5 [facility] ([place]) Comment on above: Performed By: #### C MP, ANEU, MDW, GFR, MG, CBC, ADIFF #### [place] [address] Hematocrit (Bld) [Volume fraction] 42.4 % Normal 42.0-52.0 [facility] ([place]) Comment on above: Performed By: #### C MP, ANEU, MDW, GFR, MG, CBC, ADIFF #### [place] [address] Hgb 14.3 G/dL Normal 14.0-18.0 [facility] ([place]) Comment on above: Performed By: #### C MP, ANEU, MDW, GFR, MG, CBC, ADIFF #### [address] [address] MCH (RBC) [Entitic mass] 29.8 pg Normal 27.0-31.2 [facility] ([place]) Comment on above: Performed By: #### C MP, ANEU, MDW, GFR, MG, CBC, ADIFF #### [place] [address] MCHC 33.7 G/dL Normal 31.8-35.4 [facility] ([place]) Comment on above: Performed By: #### C MP, ANEU, MDW, GFR, MG, CBC, ADIFF #### [place] [id number] MCV (RBC) [Entitic vol] 88.5 fL Normal 80.0-94.0 [facility] ([place]) Comment on above: Performed By: #### C MP, ANEU, MDW, GFR, MG, CBC, ADIFF #### [place] [address] Platelet 404 10 3/mcL High 130-400 [facility] ([place]) Comment on above: Performed By: #### C MICA, TRISTEN, MDW, GFR, MG, CBC, ADIFF #### [address] [address] Platelet mean volume (Bld) [Entitic vol] 7.4 fL Normal 7.4-10.4 [facility] ([place]) Comment on above: Performed By: #### C MICA, TRISTEN, MDW, GFR, MG, CBC, ADIFF #### [address] [address] RBC 4.78 10 6/mcL Normal 4.04-6.13 [facility] ([place]) Comment on above: Performed By: #### C MIAC, TRISTEN, MDW, GFR, MG, CBC, ADIFF #### [address] [address] WBC 12.3 10 3/mcL High 4.6-10.8 [facility] ([place]) Comment on above: Performed By: #### C MICA, TRISTEN, MDW, GFR, MG, CBC, ADIFF #### [address] [address] CMPon 05-05-2024 Albumin Level 4.3 G/dL Normal 3.5-5.0 [facility]) Comment on above: Performed By: #### C MICA, TRISTEN, MDW, GFR, MG, CBC, ADIFF #### [address] [address] Albumin/Globulin [Mass ratio] 1.0 {ratio} Low 1.1-2.5 [facility]) Comment on above: Performed By: #### C MICA, TRISTEN, MDW, GFR, MG, CBC, ADIFF #### [address] [address] ALP [Catalytic activity/Vol] 98 U/L Normal 40-135 [facility] ([place]) Comment on above: Performed By: #### C MICA, TRISTEN, MDW, GFR, MG, CBC, ADIFF #### [address] [address] ALT [Catalytic activity/Vol] 16 U/L Normal 16-63 [facility] ([place]) Comment on above: Performed By: #### C MICA, MD TRISTENW, GFR, MG, CBC, ADIFF #### [address] [address] AST [Catalytic activity/Vol] 22 U/L Normal 10-40 [facility] ([place]) Comment on above: Performed By: #### C MICA, MD TRISTENW, GFR, MG, CBC, ADIFF #### [address] [address] Bili Total 0.5 mg/dL Normal 0.2-1.0 [facility] ([place]) Comment on above: Result Comment: Use of this assay is not recommended for patients undergoing treatment with eltrombopag due to the potential for falsely elevated results. Performed By: #### C MICA, CARITO RAMON, GFR, MG, CBC, ADIFF #### [address] [address] BUN/Creatinine Ratio 21 ratio Normal 7-27 [facility] ([place]) Comment on above: Performed By: #### C TRISTEN NINO MDW, GFR, MG, CBC, ADIFF #### [address] [address] Calcium [Mass/Vol] 9.4 mg/dL Normal 8.4-10.2 Pending sale to [facility] ([place]) Comment on above: Performed By: #### C TRISTEN NINO MDW, GFR, MG, CBC, ADIFF #### [address] [address] Chloride [Moles/Vol] 96 mmol/L Low 98-107 [facility] ([place]) Comment on above: Performed By: #### C MICA, TRISTEN MDW, GFR, MG, CBC, ADIFF #### [address] [address] CO2 [Moles/Vol] 22 mmol/L Normal 22-29 [facility] ([place]) Comment on above: Performed By: #### C MP, ANEU, MDW, GFR, MG, CBC, ADIFF #### [address] [address] Creatinine [Mass/Vol] 1.92 mg/dL High 0.70-1.30 [facility] ([place]) Comment on above: Performed By: #### C MP, ANEU, MDW, GFR, MG, CBC, ADIFF #### [address] [address] Electrolyte Balance 14.0 mEq/L Normal 4.0-15.0 [facility] [place] Comment on above: Performed By: #### C MP, ANEU, MDW, GFR, MG, CBC, ADIFF #### [address] [address] Globulin 4.3 G/dL Normal [facility] ([place]) Comment on above: Performed By: #### C MP, ANEU, MDW, GFR, MG, CBC, ADIFF #### [address] [address] Glucose [Mass/Vol] 212 mg/dL High 70-105 Pending sale to [facility] ([place]) Comment on above: Performed By: #### C MP, ANEU, MDW, GFR, MG, CBC, ADIFF #### [address] [address] Potassium [Moles/Vol] 4.1 mmol/L Normal 3.5-5.1 [facility] ([place]) Comment on above: Performed By: #### C MP, ANEU, MDW, GFR, MG, CBC, ADIFF #### [address] [address] Sodium [Moles/Vol] 132 mmol/L Low 136-145 Pending sale to [facility] ([place]) Comment on above: Performed By: #### C MP, ANEU, MDW, GFR, MG, CBC, ADIFF #### [address] [address] Total Protein 8.6 G/dL High 6.4-8.2 [facility] ([place]) Comment on above: Performed By: #### C TRISTEN NINO MDW, GFR, MG, CBC, ADIFF #### [id number] [place], [place] [address] Urea nitrogen [Mass/Vol] 41 mg/dL High 7-18 [facility] ([place]) Comment on above: Performed By: #### C TRISTEN NINO MDW, GFR, MG, CBC, ADIFF #### [address] [place], [place] [address] LABORATORYOrdered By: SYSTEM SYSTEM on 05-05-2024 Albumin BCP dye [Mass/Vol] 4.3 G/dL Normal 3.5 - 5.0 G/dL AO ADM SS Albumin/Globulin [Mass ratio] 1.0 {ratio} Low 1.1 - 2.5 ratio AO ADM SS ALP [Catalytic activity/Vol] 98 U/L Normal 40 - 135 U/L AO ADM SS ALT With P-5'-P [Catalytic activity/Vol] 16 U/L Normal 16 - 63 U/L AO ADM SS AST With P-5'-P [Catalytic activity/Vol] 22 U/L Normal 10 - 40 U/L AO ADM SS Basophil, Absolute 0.1 103/mcL Normal 0.0 - 0.2 10^3/mcL AO Workflow SS Basophils/100 WBC (Bld) 0.5 % Normal 0.0 - 2.5 % AO Workflow SS Bilirubin [Mass/Vol] 0.5 mg/dL Normal 0.2 - 1 .0 mg/dL AO ADM SS Comment on above: Interpretive Data: U se of this assay is not recommended for patients undergoing treatment with eltrombopag due to the potential for falsely elevated results. Calcium [Mass/Vol] 9.4 mg/dL Normal 8.4 - 10. 2 mg/dL AO ADM SS Chloride [Moles/Vol] 96 mmol/L Low 98 - 10 7 mmol/L AO ADM SS CO2 [Moles/Vol] 22 mmol/L Normal 22 - 29 mmol/L AO ADM SS Creatinine [Mass/Vol] 1.92 mg/dL High 0.70 - 1.30 mg/dL AO ADM SS Electrolyte Balance 14.0 mEq/L Normal 4.0 - 15 .0 mEq/L AO ADM SS Eosinophil, Absolute 0.0 103/mcL Normal 0.0 - 0 .4 10^3/mcL AO Workflow SS Eosinophils/100 WBC (Bld) 0.4 % Normal 0.0 - 7.0 % AO Workflow SS Erythrocyte distribution width (RBC) [Ratio] 14.2 % Normal 11.5 - 14.5 % AO Workflow SS GFR/1.73 sq M.predicted among blacks MDRD (S/P/Bld) [Vol rate/Area] 48 ml/min/1.73sqm Invalid Interpretation Code AO Chemistry S Comment on above: Interpretive Data: GFR Population mean for , Non- Americans Ages 20-29 = 116 mL/min/1.73 sq.m. Ages 30-39 = 107 mL/min/1.73 sq.m. Ages 40-49 = 99 mL/min/1.73 sq.m. Ages 50-59 = 93 mL/min/1.73 sq.m. Ages 60-69 = 85 mL/min/1.73 sq.m. Ages 70+ = 75 mL/min/1.73 sq.m. Chronic Kidney Disease: Less than 60 mL/min/1.73 square meters End Stage Renal Disease: Less than 15 mL/min/1.73 square meters GFR/1.73 sq M.predicted among non-blacks MDRD (S/P/Bld) [Vol rate/Area] 39 ml/min/1.73sqm Invalid Interpretation Code AO Chemistry S Comment on above: Interpretive Data: GFR Population mean for , Non- Americans Ages 20-29 = 116 mL/min/1.73 sq.m. Ages 30-39 = 107 mL/min/1.73 sq.m. Ages 40-49 = 99 mL/min/1.73 sq.m. Ages 50-59 = 93 mL/min/1.73 sq.m. Ages 60-69 = 85 mL/min/1.73 sq.m. Ages 70+ = 75 mL/min/1.73 sq.m. Chronic Kidney Disease: Less than 60 mL/min/1.73 square meters End Stage Renal Disease: Less than 15 mL/min/1.73 square meters Globulin 4.3 G/dL Invalid Interpretation Code AO ADM SS Glucose [Mass/Vol] 212 mg/dL High 70 - 105 mg/dL AO ADM SS Hematocrit (Bld) [Volume fraction] 42.4 % Normal 42.0 - 52.0 % AO Workflow SS Hemoglobin (Bld) [Mass/Vol] 14.3 G/dL Normal 14.0 - 18.0 G/dL AO Workflow SS Lipase [Catalytic activity/Vol] 36 U/L Normal 16 - 77 U/L AO ADM SS Lymphocyte, Absolute 3.2 103/mcL Normal 0.8 - 3 .9 10^3/mcL AO Workflow SS Lymphocytes/100 WBC (Bld) 26.3 % Normal 10.0 - 50.0 % AO Workflow SS MCH (RBC) [Entitic mass] 29.8 pg Normal 27.0 - 31.2 pg AO Workflow SS MCHC 33.7 G/dL Normal 31.8 - 35.4 G/dL AO Workflow SS MCV (RBC) [Entitic vol] 88.5 fL Normal 80.0 - 94.0 fL AO Workflow SS Monocyte distribution width Auto (Bld) [Entitic vol] 14.94 1 Normal 0.00 - 20.00 AO Workflow SS Comment on above: Result Comment: For ED adult patients suspected of sepsis, MDW<=20.0 does not rule out sepsis or risk of sepsis Monocyte, Absolute 1.1 103/mcL High 0.2 - 1.0 10^3/mcL AO Workflow SS Monocytes/100 WBC (Bld) 8.9 % Normal 1.7 - 13.0 % AO Workflow SS Neutrophil, Absolute 7.9 103/mcL High 2.9 - 6 .2 10^3/mcL AO Workflow SS Neutrophils/100 WBC (Bld) 63.9 % Normal 37.0 - 80.0 % AO Workflow SS Platelet mean volume (Bld) [Entitic vol] 7.4 fL Normal 7.4 - 10.4 fL AO Workflow SS Platelets (Bld) [#/Vol] 404 103/mcL High 130 - 400 10^3/mcL AO Workflow SS Potassium [Moles/Vol] 4.1 mmol/L Normal 3.5 - 5.1 mmol/L AO ADM SS Protein [Mass/Vol] 8.6 G/dL High 6.4 - 8.2 G/dL AO ADM SS RBC (Bld) [#/Vol] 4.78 106/mcL Normal 4.04 - 6.1 3 10^6/mcL AO Workflow SS Sodium [Moles/Vol] 132 mmol/L Low 136 - 145 mmol/L AO ADM SS Urea nitrogen [Mass/Vol] 41 mg/dL High 7 - 18 mg/dL AO ADM SS Urea nitrogen/Creatinine [Mass ratio] 21 ratio Normal 7 - 27 ratio AO ADM SS WBC (Bld) [#/Vol] 12.3 103/mcL High 4.6 - 10.8 10^3/mcL AO Workflow SS LABORATORYOrdered By: Jose Colon on 05-05-2024 BE Venous -4.6 mmol/L Low -3.0 - 3.0 mmol/L AO Rapid Comm SS CO2 [Moles/Vol] 19.4 mmol/L Low 22.0 - 32.0 mmol/L AO Rapid Comm SS HCO3 (Bld) [Moles/Vol] 18.5 mmol/L Low 21.0 - 30.0 mmol/L AO Rapid Comm SS pCO2 Tera 29.9 mm[Hg] Low 41.0 - 51.0 mm Hg AO Rapid Comm SS pH (Bld) 7.410 [pH] Normal 7.380 - 7.460 AO Rapid Comm SS pO2 Tera 45.6 mm[Hg] High 35.0 - 40.0 mm Hg AO Rapid Comm SS LIPon 05-05-2024 Lipase Level 36 U/L Normal 16-77 [facility] ([place]) Comment on above: Performed By: #### C TRISTEN NINO MDW, GFR, MG, CBC, ADIFF #### [address] [address] VBGon 05-05-2024 BE Venous -4.6 mmol/L Low -3.0-3.0 [facility] ([place]) Comment on above: Performed By: #### C TRISTEN NINO MDW, GFR, MG, CBC, ADIFF #### [address] [address] CO2 [Moles/Vol] 19.4 mmol/L Low 22.0-32.0 [facility] ([place]) Comment on above: Performed By: #### C TRISTEN NINO MDW, GFR, MG, CBC, ADIFF #### [address] [place], [place] [address] HCO3 (Bld) [Moles/Vol] 18.5 mmol/L Low 21.0-30.0 [facility] ([place]) Comment on above: Performed By: #### C MICA, CARITO RAMON, GFR, MG, CBC, ADIFF #### [address] [address] Oxygen saturation in Blood 82.0 % High 70.0-75.0 [facility] ([place]) Comment on above: Performed By: #### C MICA, CARITO RAMON, GFR, MG, CBC, ADIFF #### [address] [address] pCO2 Tera 29.9 mmHg Low 41.0-51.0 [facility] ([place]) Comment on above: Performed By: #### C MICA, CARTIO RAMON, GFR, MG, CBC, ADIFF #### [address] [address] pH Venous 7.410 Normal 7.380-7.460 [facility] ([place]) Comment on above: Performed By: #### C MICA, CARITO RAMON, GFR, MG, CBC, ADIFF #### [address] [address] pO2 Tera 45.6 mmHg High 35.0-40.0 [facility] ([place]) Comment on above: Performed By: #### C MICA, MD TRISTENW, GFR, MG, CBC, ADIFF #### [address] [address] Absolute lymphocyte countOrd ered By: Shantell Alcaraz on 01-29-2024 Lymphocytes Auto (Unsp spec) [#/Vol] 4.10 10*3/uL 0.83-4.51 [facility] Automated lymphocyte count a s percentage of total leukocytesOrdered By: Shantell Alcaraz on 01-29-2024 Lymphocytes/100 WBC Auto (Unsp spec) 41.8 % 19-41 [facility] Basophil percentageOrdered B y: Shantell Alcaraz on 01-29-2024 Basophils/100 WBC (Bld) 0.6 % 0-1 [facility] Chloride [Moles/Vol] 107 mmol/L 98-107 [facility] Eosinophils/100 WBC (Bld) 1.7 % 0-5 [facility] Glucose [Mass/Vol] 124 mg/dL 74-106 [facility] Comment on above: Fasting Glucose resu lt from 100 to 125 mg/dL suggests IMPAIRED HOMEOSTASIS per A.D.A. criteria. Hemoglobin (Bld) [Mass/Vol] 13.0 g/dL 13.0-16.5 [facility] Monocytes/100 WBC (Bld) 11.8 % 0-10 [facility] Neutrophils (Bld) [#/Vol] 4.3 10*3/uL 2.0-7.7 [facility] Neutrophils/100 WBC (Bld) 43.8 % 47-70 [facility] Potassium [Moles/Vol] 3.4 mmol/L 3.5-5.1 [facility] Sodium [Moles/Vol] 136 mmol/L 136-145 [facility] WBC (Bld) [#/Vol] 9.8 10*3/uL 4.4-11.0 [facility] Determination of erythrocyte mean corpuscular volume (MCV)Ordered By: Shantellteresa Alcaraz on 01-29-2024 MCV (RBC) [Entitic vol] 83.7 fL 80-94 [facility] Erythrocyte distribution wid th ratioOrdered By: [facility] on 01-29-2024 Erythrocyte distribution width (RBC) [Ratio] 13.2 % 11.6-14.6 [facility] Erythrocyte distribution wid th standard deviationOrdered By: [facility] on 01-29-2024 Erythrocyte distribution width (RBC) [Entitic vol] 40.7 fL 35.1-43.9 [facility] Hematocrit Auto (Bld) [Volum e fraction]Or[facility]-29[facility]24 Hematocrit (Bld) [Volume fraction] 38.5 % 40-54 [facility] Immature granulocytes/100 WB C Auto (Bld)Ordered By: [facility] on 01-29-2024 Immature granulocytes/100 WBC (Bld) 0.300 % 0.0-0.9 [facility] Comment on above: IG% - Immature Granu locytes (promyelocytes, myelocytes and metamyelocytes) > 1% indicates that a LEFT SHIFT is Present. Laboratory - Chemistry and C hemistry - challengeOrdered By: Shantell Alcaraz on 01-29-2024 CO2 [Moles/Vol] 21.0 mmol/L 21.0-32.0 [facility] Urea nitrogen/Creatinine [Mass ratio] 20.2 mg/mg 10-20 [facility] Laboratory - Hematology and Cell countsOrdered By: Shantell Alcaraz on 01-29-2024 MCH (RBC) [Entitic mass] 28.3 pg 27.0-32.0 [facility] MCHC (RBC) [Mass/Vol] 33.8 g/dL 32-36 [facility] Nucleated RBC/100 WBC (Bld) [Ratio] 0 % 0-5 [facility] Platelet mean volume (Bld) [Entitic vol] 9.2 fL 6.2-12.0 [facility] Platelets (Bld) [#/Vol] 341 10*3/uL 150-450 [facility] No Panel InformationOrdered By: Shantell Alcaraz on 01-29-2024 Estimated Creatinine Clearance Calc 120.03 ml/min [facility] Estimated GFR (MDRD) Amer 151 mL/min >60 [facility] Comment on above: GFR Calc Estimated GFR (MDRD) Non-Af Amer 125 mL/min >60 [facility] Comment on above: Non- GFR Calc RBC Auto (Bld) [#/Vol]Ordere d By: Shantell Alcaraz on 01-29-2024 RBC (Bld) [#/Vol] 4.60 10*6/uL 4.6-6.2 [facility] Serum or plasma calcium luis carlos urement (mass/volume)Ordered By: Shantell Alcaraz on 01-29-2024 Calcium [Mass/Vol] 8.5 mg/dL 8.5-10.1 [facility] Serum or plasma creatinine m easurement (mass/volume)Ordered By: Shantell Alcaraz on 01-29-2024 Creatinine [Mass/Vol] 0.74 mg/dL 0.70-1.30 [facility] Comment on above: The validity of the calculated GFR & GFRAA in patients over 70 years has not been determined. Clinical correlation is essential. Serum or plasma urea nitroge n measurement (mass/volume)Ordered By: Shantell Alcaraz on 01-29-2024 Urea nitrogen [Mass/Vol] 15 mg/dL 7-18 [facility] Thin prep Papanicolaou smear with manual screeningOrdered By: Shantell Alcaraz on 01-29-2024 Thin prep Papanicolaou smear with manual screening 151 mg/dL 74-106 [facility] Comment on above: MANAGEMENT OF PATIEN T CARE PER NURSING PROTOCOL Thin prep Papanicolaou smear with manual screening 8 5-15 [facility] Absolute lymphocyte countOrd ered By: Krystina Clifton on 01-27-2024 Lymphocytes Auto (Unsp spec) [#/Vol] 3.36 10*3/uL 0.83-4.51 [facility] Automated lymphocyte count a s percentage of total leukocytesOrdered By: Krystina Clifton on 01-27-2024 Lymphocytes/100 WBC Auto (Unsp spec) 26.1 % 19-41 [facility] Basophil percentageOrdered B y: Krystina Clifton on 01-27-2024 Basophil percentage 0 SEEN /hpf 0-5 [facility] Basophils/100 WBC (Bld) 0.5 % 0-1 [facility] Bilirubin [Mass/Vol] 0.70 mg/dL 0.20-1.00 [facility] Comment on above: For patients on eltr ombopag therapy, use of Dimension [place] TBIL is not recommended. Chloride [Moles/Vol] 100 mmol/L 98-107 [facility] Eosinophils/100 WBC (Bld) 0.5 % 0-5 [facility] Glucose [Mass/Vol] 322 mg/dL 74-106 [facility] Comment on above: Glucose result great er than or equal to 200 mg/dLsuggests DIABETES MELLITUS per A.D.A. criteria. Hemoglobin (Bld) [Mass/Vol] 14.9 g/dL 13.0-16.5 [facility] Monocytes/100 WBC (Bld) 7.0 % 0-10 [facility] Neutrophils (Bld) [#/Vol] 8.4 10*3/uL 2.0-7.7 [facility] Neutrophils/100 WBC (Bld) 65.5 % 47-70 [facility] Potassium [Moles/Vol] 4.0 mmol/L 3.5-5.1 [facility] Protein [Mass/Vol] 9.2 g/dL 6.4-8.2 [facility] Sodium [Moles/Vol] 132 mmol/L 136-145 [facility] WBC (Bld) [#/Vol] 12.9 10*3/uL 4.4-11.0 [facility] Bilirubin Test strip Ql (U)O rdered By: Krystina Clifton on 01-27-2024 Bilirubin Ql (U) Negative Negative [facility] Determination of erythrocyte mean corpuscular volume (MCV)Ordered By: Krystina Clifton on 01-27-2024 MCV (RBC) [Entitic vol] 84.2 fL 80-94 [facility] Erythrocyte distribution wid th ratioOrdered By: Krystina Clifton on 01-27-2024 Erythrocyte distribution width (RBC) [Ratio] 13.2 % 11.6-14.6 [facility] Erythrocyte distribution wid th standard deviationOrdered By: Krystina Clifton on 01-27-2024 Erythrocyte distribution width (RBC) [Entitic vol] 40.4 fL 35.1-43.9 [facility] Hematocrit Auto (Bld) [Volum e fraction]Ordered By: Krystina Clifton on 01-27-2024 Hematocrit (Bld) [Volume fraction] 44.8 % 40-54 [facility] Immature granulocytes/100 WB C Auto (Bld)Ordered By: Krystina Clifton on 01-27-2024 Immature granulocytes/100 WBC (Bld) 0.400 % 0.0-0.9 [facility] Comment on above: IG% - Immature Granu locytes (promyelocytes, myelocytes and metamyelocytes) > 1% indicates that a LEFT SHIFT is Present. Ketones Test strip Ql (U)Ord ered By: Krystina Clifton on 01-27-2024 Ketones Ql (U) 150 mg/dl Negative [facility] Comment on above: CRITICAL VALUE *HCRI TICAL VALUE VERIFIED. CALLED TO LINA OROZCO01/27/24 1236 Luly Rollins.RESULTS READ BACK BY SAME . Laboratory - Chemistry and C hemistry - challengeOrdered By: Troy Wagoner on 01-27-2024 Sodium (U) [Moles/Vol] 82 mmol/L Not Establ. [facility] Laboratory - Chemistry and C hemistry - challengeOrdered By: Krystina Clifton on 01-27-2024 Albumin/Globulin [Mass ratio] 0.8 {ratio} 0.9-2.4 [facility] ALP [Catalytic activity/Vol] 91 U/L 45-117 [facility] ALT [Catalytic activity/Vol] 15 U/L 16-61 [facility] CO2 [Moles/Vol] 17.0 mmol/L 21.0-32.0 [facility] Globulin (S) [Mass/Vol] 5.0 g/dL 2.2-4.2 [facility] Lipase [Catalytic activity/Vol] 47 U/L 13-75 [facility] Comment on above: Please note:LIPASE r evised reference range effective 23. New Lipase methodology. Expected to produce lower values than the previous assay method. NEW Reference Range: 13 - 75 U/L Urea nitrogen/Creatinine [Mass ratio] 19.1 mg/mg 10-20 [facility] Laboratory - Drug toxicology Ordered By: Troy Wagoner on 01-27-2024 Amphetamines Ql (U) Negative <1000 ng/mL [facility] Benzodiazepines Ql (U) Negative < 200 ng/mL [facility] Cannabinoids Screen Ql (U) Positive < 50 ng/mL [facility] Cocaine Ql (U) Negative < 300 ng/mL [facility] Opiates Ql (U) Positive < 300 ng/mL [facility] Laboratory - Hematology and Cell countsOrdered By: Krystina Clifton on 01-27-2024 MCH (RBC) [Entitic mass] 28.0 pg 27.0-32.0 [facility] MCHC (RBC) [Mass/Vol] 33.3 g/dL 32-36 [facility] Nucleated RBC/100 WBC (Bld) [Ratio] 0 % 0-5 [facility] Platelet mean volume (Bld) [Entitic vol] 9.8 fL 6.2-12.0 [facility] Platelets (Bld) [#/Vol] 375 10*3/uL 150-450 [facility] Mucus LM Ql (Urine sed)Order ed By: Krystina Clifton on 01-27-2024 Mucus Ql (Urine sed) 0 SEEN /hpf [facility] Nitrite Test strip Ql (U)Ord ered By: Krystina Clifton on 01-27-2024 Nitrite Ql (U) Negative Negative [facility] No Panel InformationOrdered By: Troy Wagoner on 01-27-2024 MDMA (Ecstasy) Screen Negative < 500 ng/mL [facility] Urine Barbiturates Screen Negative < 200 ng/mL [facility] Urine Drug Screen Comment [facility] Comment on above: CONFIRMATORY TESTING FOR ALL POSITIVE URINE DRUG SCREENRESULTS WILL ONLY BE SENT OUT UPON PHYSICIAN ORDER. VISTA Urine Drug Screen methods provide only preliminaryanalytical test results. A more specific alternate chemicalmethod must be used in order to obtain a confirmedanalytical result. Gas chromatography/mass spectrometery(GC/MS) is the preferred confirmatory method. Clinicalconsideration and professional judgement should be appliedto any drug of abuse test result, particularly whenpreliminary positive results are used. URINE TCA TESTING MUST BE ORDERED SEPARATELY. USE TESTMNEMONIC: [facility] Urine Methadone Screen Negative < 300 ng/mL [facility] Ethyl Alcohol Level < 3.0 mg/dL [facility] Comment on above: The serum:whole bloo d ethanol ratio is approximately 1.14and varies slightly with hematocrit. Medical Alcohol reference interval and critical value innon-tolerant individuals; 50 - 100 Impairment 100 Intoxication 100 - 250 Severe Poisoning 250 - 400 Deep/possible fatal coma No Panel InformationOrdered By: Krystina Clifton on 01-27-2024 Estimated Creatinine Clearance Calc 76.75 ml/min [facility] Estimated GFR (MDRD) Amer 91 mL/min >60 [facility] Comment on above: GFR Calc Estimated GFR (MDRD) Non-Af Amer 76 mL/min >60 [facility] Comment on above: Non- GFR Calc Urine RBC 5-10 SEEN /hpf 0-5 [facility] Protein Test strip Ql (U)Ord ered By: Krystina Clifton on 01-27-2024 Protein Ql (U) 30 mg/dl Negative [facility] RBC Auto (Bld) [#/Vol]Ordere d By: Krystina Clifton on 01-27-2024 RBC (Bld) [#/Vol] 5.32 10*6/uL 4.6-6.2 [facility] Serum or plasma calcium luis carlos urement (mass/volume)Ordered By: Krystina Clifton on 01-27-2024 Calcium [Mass/Vol] 9.6 mg/dL 8.5-10.1 [facility] Serum or plasma creatinine m easurement (mass/volume)Ordered By: Krystina Clifton on 01-27-2024 Creatinine [Mass/Vol] 1.15 mg/dL 0.70-1.30 [facility] Comment on above: The validity of the calculated GFR & GFRAA in patients over 70 years has not been determined. Clinical correlation is essential. Serum or plasma thyroid stim ulating hormone (TSH) measurement (units/volume)Ordered By: Troy Wagoner on 01-27-2024 TSH Qn 2.59 uIU/mL 0.358-3.74 [facility] Serum or plasma urea nitroge n measurement (mass/volume)Ordered By: Krystina Clifton on 01-27-2024 Urea nitrogen [Mass/Vol] 22 mg/dL 7-18 [facility] Squamous epithelial cells de tection in urine sediment by light microscopyOrdered By: Krystina Clifton on 01-27-2024 Epithelial cells.squamous LM Ql (Urine sed) 0 SEEN /hpf 0-5 [facility] Thin prep Papanicolaou smear with manual screeningOrdered By: Troy Wagoner on 01-27-2024 Protein (U) [Mass/Vol] 46.0 mg/dL 0.0-11.8 [facility] Thin prep Papanicolaou smear with manual screeningOrdered By: Krystina Clifton on 01-27-2024 Thin prep Papanicolaou smear with manual screening 4.2 g/dL 3.2-5.0 [facility] Thin prep Papanicolaou smear with manual screening 17 U/L 15-37 [facility] Thin prep Papanicolaou smear with manual screening 15 5-15 [facility] Urine blood detectionOrdered By: Krystina Clifton on 01-27-2024 RBC Ql (U) 50 /ul Negative [facility] Urine clarityOrdered By: Lito Clifton on 01-27-2024 Clarity (U) Clear Clear [facility] Urine color determinationOrd ered By: Krystina Clifton on 01-27-2024 Color (U) Yellow Yellow [facility] Urine creatinine measurement (mass/volume)Ordered By: Troy Wagoner on 01-27-2024 Creatinine (U) [Mass/Vol] 94.50 mg/dL NO RANGE EST. [facility] Urine glucose detectionOrder ed By: Krystina Clifton on 01-27-2024 Glucose Ql (U) 1000 mg/dl Normal [facility] Urine leukocyte esterase det ection by dipstickOrdered By: Krystina Clifton on 01-27-2024 Leukocyte esterase Test strip Ql (U) Negative Negative [facility] Urine pHOrdered By: Bertha Clifton on 01-27-2024 pH (U) 5.0 [pH] 5.0 - 8.0 [facility] Urine phencyclidine (PCP) de tectionOrdered By: Troy Wagoner on 01-27-2024 Phencyclidine Ql (U) Negative < 25 ng/mL [facility] Urine protein/creatinine mas s ratioOrdered By: Troy Wagoner on 01-27-2024 Protein/Creatinine (U) [Mass ratio] 487 mg/g CRE 0-200 [facility] Urine sediment bacteria coun t by microscopy (number/high power field)Ordered By: Krystina Clifton on 01-27-2024 Bacteria LM.HPF (Urine sed) [#/Area] 0 /[HPF] None Seen [facility] Urine specific gravity measu rementOrdered By: Krystina Clifton on 01-27-2024 Specific gravity (U) [Rel density] 1.025 1.002-1.030 [facility] Urine urobilinogen measureme ntOrdered By: Krystina Clifton on 01-27-2024 Urobilinogen Ql (U) Normal mg/dl Normal [facility] Whole blood hemoglobin A1c/t otal hemoglobin ratio (mass fraction)Ordered By: Troy Wagoner on 01-27-2024 HbA1c (Bld) [Mass fraction] 11.1 % 3.8-5.6 [facility] Comment on above: Normal < 5.7 % Predi abetic 5.7 - 6.4 % Diabetic >or= 6.5 % Please note range changes. .Auto Diffon 01-26-2024 Basophil, Absolute 0.1 10 3/mcL Normal 0.0-0.2 [facility] ([place]) Comment on above: Performed By: #### C MICA, MD TRISTENW, GFR, MG, CBC, ADIFF #### [address] [address] Basophils/100 WBC (Bld) 0.7 % Normal 0.0-2.5 [facility] ([place]) Comment on above: Performed By: #### C MICA, TRISTEN, W, GFR, MG, CBC, ADIFF #### [address] [address] Eosinophil, Absolute 0.1 10 3/mcL Normal 0.0-0.4 [facility] ([place]) Comment on above: Performed By: #### C MICA, MD TRISTENW, GFR, MG, CBC, ADIFF #### [address] [address] Eosinophils/100 WBC (Bld) 0.4 % Normal 0.0-7.0 [facility] ([place]) Comment on above: Performed By: #### C TRISTEN NINO MDW, GFR, MG, CBC, ADIFF #### [address] [address] Lymphocyte, Absolute 3.0 10 3/mcL Normal 0.8-3.9 [facility] ([place]) Comment on above: Performed By: #### C TRISTEN NINO MDW, GFR, MG, CBC, ADIFF #### [address] [address] Lymphocytes/100 WBC (Bld) 21.5 % Normal 10.0-50.0 [facility] ([place]) Comment on above: Performed By: #### C TRISTEN NINO MDW, GFR, MG, CBC, ADIFF #### [address] [address] Monocyte, Absolute 0.9 10 3/mcL Normal 0.2-1.0 [facility] ([place]) Comment on above: Performed By: #### C MP, ANEU, MDW, GFR, MG, CBC, ADIFF #### [address] [address] Monocytes/100 WBC (Bld) 6.7 % Normal 1.7-13.0 [facility] ([place]) Comment on above: Performed By: #### C MP, ANEU, MDW, GFR, MG, CBC, ADIFF #### [address] [address] Neutrophils/100 WBC (Bld) 70.7 % Normal 37.0-80.0 [facility] ([place]) Comment on above: Performed By: #### C MP, ANEU, MDW, GFR, MG, CBC, ADIFF #### [address] [address] .GFRon 01-26-2024 GFR Non- 105 ml/min/1.73sqm Normal [facility] ([place]) Comment on above: Result Comment: GFR Population mean for , Non- Americans Ages 20-29 = 116 mL/min/1.73 sq.m. Ages 30-39 = 107 mL/min/1.73 sq.m. Ages 40-49 = 99 mL/min/1.73 sq.m. Ages 50-59 = 93 mL/min/1.73 sq.m. Ages 60-69 = 85 mL/min/1.73 sq.m. Ages 70+ = 75 mL/min/1.73 sq.m. Chronic Kidney Disease: Less than 60 mL/min/1.73 square meters End Stage Renal Disease: Less than 15 mL/min/1.73 square meters Performed By: #### C MP, ANEU, MDW, GFR, MG, CBC, ADIFF #### [address] [address] GFR 127 ml/min/1.73sqm Normal [facility] ([place]) Comment on above: Result Comment: GFR Population mean for , Non- Americans Ages 20-29 = 116 mL/min/1.73 sq.m. Ages 30-39 = 107 mL/min/1.73 sq.m. Ages 40-49 = 99 mL/min/1.73 sq.m. Ages 50-59 = 93 mL/min/1.73 sq.m. Ages 60-69 = 85 mL/min/1.73 sq.m. Ages 70+ = 75 mL/min/1.73 sq.m. Chronic Kidney Disease: Less than 60 mL/min/1.73 square meters End Stage Renal Disease: Less than 15 mL/min/1.73 square meters Performed By: #### C MP, ANEU, MDW, GFR, MG, CBC, ADIFF #### [place] [address] .MDWon 01-26-2024 Monocyte Distribution Width 15.52 Normal 0.00-20.00 [facility] ([place]) Comment on above: Result Comment: For ED adult patients suspected of sepsis, MDW<=20.0 does not rule out sepsis or risk of sepsis Performed By: #### C MP, ANEU, MDW, GFR, MG, CBC, ADIFF #### [place] [address] .NEUABSon 01-26-2024 Neutrophil, Absolute 9.8 10 3/mcL High 2.9-6.2 [facility] ([place]) Comment on above: Performed By: #### C MICA, ANEU, MDW, GFR, MG, CBC, ADIFF #### [place] [address] .Urinalysis Microscopic (AO) on 01-26-2024 UA RBC 0-5 Abnormal None Seen [facility] ([place]) Comment on above: Performed By: #### U A, UAMICAO #### [place] [address] UA Squam Epithelial 0-5 Abnormal None [facility]en [facility] ([place]) Comment on above: Performed By: #### U A, UAMICAO #### [place] [address] UA WBC 0-5 Abnormal None Seen [facility] ([place]) Comment on above: Performed By: #### U A, UAMICAO #### [place] [id number] CBCon 01-26-2024 Erythrocyte distribution width (RBC) [Ratio] 14.2 % Normal 11.5-14.5 [facility] ([place]) Comment on above: Performed By: #### C TRISTEN NINO, MDW, GFR, MG, CBC, ADIFF #### [place] [address] Hematocrit (Bld) [Volume fraction] 45.5 % Normal 42.0-52.0 [facility] ([place]) Comment on above: Performed By: #### C MICA, TRISTEN, MDW, GFR, MG, CBC, ADIFF #### [place] [address] Hgb 15.5 G/dL Normal 14.0-18.0 [facility] ([place] Comment on above: Performed By: #### C MICA, TRISTEN, MDW, GFR, MG, CBC, ADIFF #### [place] [address] MCH (RBC) [Entitic mass] 29.0 pg Normal 27.0-31.2 [facility] ([place]) Comment on above: Performed By: #### C TRISTEN NINO MDW, GFR, MG, CBC, ADIFF #### [place] [address] MCHC 34.1 G/dL Normal 31.8-35.4 [facility] ([place]) Comment on above: Performed By: #### C TRISTEN NINO MDW, GFR, MG, CBC, ADIFF #### [address] [address] MCV (RBC) [Entitic vol] 85.1 fL Normal 80.0-94.0 [facility] ([place]) Comment on above: Performed By: #### C TRISTEN NINO, MDW, GFR, MG, CBC, ADIFF #### [place] [address] Platelet 384 10 3/mcL Normal 130-400 [facility] ([place]) Comment on above: Performed By: #### C MP, ANEU, MDW, GFR, MG, CBC, ADIFF #### [address] [address] Platelet mean volume (Bld) [Entitic vol] 7.6 fL Normal 7.4-10.4 [facility] ([place]) Comment on above: Performed By: #### C MP, ANEU, MDW, GFR, MG, CBC, ADIFF #### [address] [address] RBC 5.35 10 6/mcL Normal 4.04-6.13 [facility] ([place]) Comment on above: Performed By: #### C MP, ANEU, MDW, GFR, MG, CBC, ADIFF #### [address] [address] WBC 13.9 10 3/mcL High 4.6-10.8 [facility] ([place]) Comment on above: Performed By: #### C MP, ANEU, MDW, GFR, MG, CBC, ADIFF #### [address] [address] CMPon 01-26-2024 Albumin Level 4.5 G/dL Normal 3.5-5.0 [facility] ([place]) Comment on above: Performed By: #### C MICA, ANEU, MDW, GFR, MG, CBC, ADIFF #### [address] [address] Albumin/Globulin [Mass ratio] 0.9 {ratio} Low 1.1-2.5 [facility] ([place]) Comment on above: Performed By: #### C MP, ANEU, MDW, GFR, MG, CBC, ADIFF #### [address] [address] ALP [Catalytic activity/Vol] 104 U/L Normal 40-135 [facility] ([place]) Comment on above: Performed By: #### C MP, ANEU, MDW, GFR, MG, CBC, ADIFF #### [address] [address] ALT [Catalytic activity/Vol] 18 U/L Normal 16-63 [facility] ([place]) Comment on above: Performed By: #### C MP, ANEU, MDW, GFR, MG, CBC, ADIFF #### [address] [address] AST [Catalytic activity/Vol] 35 U/L Normal 10-40 [facility] ([place]) Comment on above: Performed By: #### C MP, ANEU, MDW, GFR, MG, CBC, ADIFF #### [address] [address] Bili Total 0.7 mg/dL Normal 0.2-1.0 [facility] ([place]) Comment on above: Result Comment: Use of this assay is not recommended for patients undergoing treatment with eltrombopag due to the potential for falsely elevated results. Performed By: #### C MP, ANEU, MDW, GFR, MG, CBC, ADIFF #### [address] [address] BUN/Creatinine Ratio 24 ratio Normal 7-27 [facility] ([place]) Comment on above: Performed By: #### C MP, ANEU, MDW, GFR, MG, CBC, ADIFF #### [address] [address] Calcium [Mass/Vol] 9.4 mg/dL Normal 8.4-10.2 Pending [facility] to [facility] ([place]) Comment on above: Performed By: #### C MP, ANEU, MDW, GFR, MG, CBC, ADIFF #### [address] [address] Chloride [Moles/Vol] 95 mmol/L Low 98-107 [facility] ([place]) Comment on above: Performed By: #### C MP, ANEU, MDW, GFR, MG, CBC, ADIFF #### [address] [address] CO2 [Moles/Vol] 18 mmol/L Low 22-29 [facility] ([place]) Comment on above: Performed By: #### C MP, ANEU, MDW, GFR, MG, CBC, ADIFF #### [address] [address] Creatinine [Mass/Vol] 0.82 mg/dL Normal 0.70-1.30 [facility] ([place]) Comment on above: Performed By: #### C MP, ANEU, MDW, GFR, MG, CBC, ADIFF #### [address] [address] Electrolyte Balance 19.0 mEq/L High 4.0-15.0 [facility] ([place] Comment on above: Performed By: #### C MP, ANEU, MDW, GFR, MG, CBC, ADIFF #### [address] [address] Globulin 5.1 G/dL Normal [facility] ([place]) Comment on above: Performed By: #### C MP, ANEU, MDW, GFR, MG, CBC, ADIFF #### [address] [address] Glucose [Mass/Vol] 275 mg/dL High 70-105 P[facility] to [facility] ([place]) Comment on above: Performed By: #### C MP, ANEU, MDW, GFR, MG, CBC, ADIFF #### [address] [address] Potassium [Moles/Vol] 5.3 mmol/L High 3.5-5.1 [facility] ([place]) Comment on above: Performed By: #### C MP, ANEU, MDW, GFR, MG, CBC, ADIFF #### [address] [address] Sodium [Moles/Vol] 132 mmol/L Low 136-145 Pending [facility] to [facility] ([place]) Comment on above: Performed By: #### C MP, ANEU, MDW, GFR, MG, CBC, ADIFF #### [address] [address] Total Protein 9.6 G/dL High 6.4-8.2 [facility] ([place]) Comment on above: Performed By: #### C MP, ANEU, MDW, GFR, MG, CBC, ADIFF #### [place] [address] [place], [place] [address] Urea nitrogen [Mass/Vol] 20 mg/dL High 7-18 [facility] ([place]) Comment on above: Performed By: #### C MP, TRISTEN, W, GFR, MG, CBC, ADIFF #### [place] [address] [place], [place] [address] CT ABD/PELVIS W/ IV CONTRAST ONLYon 01-26-2024 CT ABD/PELVIS W/ IV CONTRAST ONLY ORIGINAL EXAMINATION: CT OF THE ABDOMEN AND PELVIS WITH CONTRAST 01/26/2024 1:08 pm TECHNIQUE: CT of the abdomen and pelvis was performed with the administration of intravenous contrast. Multiplanar reformatted images are provided for review. Automated exposure control, iterative reconstruction, and/or weight based adjustment of the mA/kV was utilized to reduce the radiation dose to as low as reasonably achievable. COMPARISON: None. HISTORY: ORDERING SYSTEM PROVIDED HISTORY: Reason for Exam: pain FINDINGS: No osseous abnormality identified. The lung bases are unremarkable. Minor fatty infiltration of the liver is evident adjacent to the falciform ligament fissure. No other focal liver lesions seen. Spleen, adrenal glands and pancreas are unremarkable. No renal abnormality seen. No adenopathy, free air or free fluid seen. The urinary bladder is grossly normal. No GI tract abnormality is visible. No additional contributory finding. IMPRESSION: No acute process. Interpreted by: Vel Patel MD Preliminary Report By: Vel Patel MD Electronically signed By Vel Patel MD Dictated Date: 01/26/2024 1:09:14 PM Prelim Date: 01/26/2024 1:11:46 PM Sign Date: 01/26/2024 1:11:46 PM Ordering Provider: SARAVANAN SANCHEZ Normal [facility] ([place]) LABORATORYOrdered By: Elyse Durand on 01-26-2024 Glucose [Mass/Vol] 224 mg/dL High 70 - 110 mg/dL [facility] Work Phone: Glucose [Mass/Vol] 275 mg/dL High 70 - 110 mg/dL [facility] Work Phone: LABORATORYOrdered By: SYSTEM SYSTEM on 01-26-2024 Albumin BCP dye [Mass/Vol] 4.5 G/dL Normal 3.5 - 5.0 G/dL AO ADM SS Albumin/Globulin [Mass ratio] 0.9 {ratio} Low 1.1 - 2.5 ratio AO ADM SS ALP [Catalytic activity/Vol] 104 U/L Normal 40 - 135 U/L AO ADM SS ALT With P-5'-P [Catalytic activity/Vol] 18 U/L Normal 16 - 63 U/L AO ADM SS AST With P-5'-P [Catalytic activity/Vol] 35 U/L Normal 10 - 40 U/L AO ADM SS Basophil, Absolute 0.1 103/mcL Normal 0.0 - 0.2 10^3/mcL AO Workflow SS Basophils/100 WBC (Bld) 0.7 % Normal 0.0 - 2.5 % AO Workflow SS Bilirubin [Mass/Vol] 0.7 mg/dL Normal 0.2 - 1 .0 mg/dL AO ADM SS Comment on above: Interpretive Data: U se of this assay is not recommended for patients undergoing treatment with eltrombopag due to the potential for falsely elevated results. Calcium [Mass/Vol] 9.4 mg/dL Normal 8.4 - 10. 2 mg/dL AO ADM SS Chloride [Moles/Vol] 95 mmol/L Low 98 - 10 7 mmol/L AO ADM SS CO2 [Moles/Vol] 18 mmol/L Low 22 - 29 mmol/L AO ADM SS Creatinine [Mass/Vol] 0.82 mg/dL Normal 0.70 - 1.30 mg/dL AO ADM SS Electrolyte Balance 19.0 mEq/L High 4.0 - 15 .0 mEq/L AO ADM SS Eosinophil, Absolute 0.1 103/mcL Normal 0.0 - 0 .4 10^3/mcL AO Workflow SS Eosinophils/100 WBC (Bld) 0.4 % Normal 0.0 - 7.0 % AO Workflow SS Erythrocyte distribution width (RBC) [Ratio] 14.2 % Normal 11.5 - 14.5 % AO Workflow SS GFR/1.73 sq M.predicted among blacks MDRD (S/P/Bld) [Vol rate/Area] 127 ml/min/1.73sqm Invalid Interpretation Code AO Chemistry S Comment on above: Interpretive Data: GFR Population mean for , Non- Americans Ages 20-29 = 116 mL/min/1.73 sq.m. Ages 30-39 = 107 mL/min/1.73 sq.m. Ages 40-49 = 99 mL/min/1.73 sq.m. Ages 50-59 = 93 mL/min/1.73 sq.m. Ages 60-69 = 85 mL/min/1.73 sq.m. Ages 70+ = 75 mL/min/1.73 sq.m. Chronic Kidney Disease: Less than 60 mL/min/1.73 square meters End Stage Renal Disease: Less than 15 mL/min/1.73 square meters GFR/1.73 sq M.predicted among non-blacks MDRD (S/P/Bld) [Vol rate/Area] 105 ml/min/1.73sqm Invalid Interpretation Code AO Chemistry S Comment on above: Interpretive Data: GFR Population mean for , Non- Americans Ages 20-29 = 116 mL/min/1.73 sq.m. Ages 30-39 = 107 mL/min/1.73 sq.m. Ages 40-49 = 99 mL/min/1.73 sq.m. Ages 50-59 = 93 mL/min/1.73 sq.m. Ages 60-69 = 85 mL/min/1.73 sq.m. Ages 70+ = 75 mL/min/1.73 sq.m. Chronic Kidney Disease: Less than 60 mL/min/1.73 square meters End Stage Renal Disease: Less than 15 mL/min/1.73 square meters Globulin 5.1 G/dL Invalid Interpretation Code AO ADM SS Glucose [Mass/Vol] 275 mg/dL High 70 - 105 mg/dL AO ADM SS Hematocrit (Bld) [Volume fraction] 45.5 % Normal 42.0 - 52.0 % AO Workflow SS Hemoglobin (Bld) [Mass/Vol] 15.5 G/dL Normal 14.0 - 18.0 G/dL AO Workflow SS Lipase [Catalytic activity/Vol] 48 U/L Normal 16 - 77 U/L AO ADM SS Lymphocyte, Absolute 3.0 103/mcL Normal 0.8 - 3 .9 10^3/mcL AO Workflow SS Lymphocytes/100 WBC (Bld) 21.5 % Normal 10.0 - 50.0 % AO Workflow SS Magnesium [Mass/Vol] 1.8 mg/dL Normal 1.8 - 2 .4 mg/dL AO ADM SS MCH (RBC) [Entitic mass] 29.0 pg Normal 27.0 - 31.2 pg AO Workflow SS MCHC 34.1 G/dL Normal 31.8 - 35.4 G/dL AO Workflow SS MCV (RBC) [Entitic vol] 85.1 fL Normal 80.0 - 94.0 fL AO Workflow SS Monocyte distribution width Auto (Bld) [Entitic vol] 15.52 1 Normal 0.00 - 20.00 AO Workflow SS Comment on above: Result Comment: For ED adult patients suspected of sepsis, MDW<=20.0 does not rule out sepsis or risk of sepsis Monocyte, Absolute 0.9 103/mcL Normal 0.2 - 1.0 10^3/mcL AO Workflow SS Monocytes/100 WBC (Bld) 6.7 % Normal 1.7 - 13.0 % AO Workflow SS Neutrophil, Absolute 9.8 103/mcL High 2.9 - 6 .2 10^3/mcL AO Workflow SS Neutrophils/100 WBC (Bld) 70.7 % Normal 37.0 - 80.0 % AO Workflow SS Platelet mean volume (Bld) [Entitic vol] 7.6 fL Normal 7.4 - 10.4 fL AO Workflow SS Platelets (Bld) [#/Vol] 384 103/mcL Normal 130 - 400 10^3/mcL AO Workflow SS Potassium [Moles/Vol] 5.3 mmol/L High 3.5 - 5.1 mmol/L AO ADM SS Protein [Mass/Vol] 9.6 G/dL High 6.4 - 8.2 G/dL AO ADM SS RBC (Bld) [#/Vol] 5.35 106/mcL Normal 4.04 - 6.1 3 10^6/mcL AO Workflow SS Sodium [Moles/Vol] 132 mmol/L Low 136 - 145 mmol/L AO ADM SS Urea nitrogen [Mass/Vol] 20 mg/dL High 7 - 18 mg/dL AO ADM SS Urea nitrogen/Creatinine [Mass ratio] 24 ratio Normal 7 - 27 ratio AO ADM SS WBC (Bld) [#/Vol] 13.9 103/mcL High 4.6 - 10.8 10^3/mcL AO Workflow SS LABORATORYOrdered By: Ron chi on 01-26-2024 Appearance (U) Clear (01/26/24 12:19 PM) Normal Clear AO Auto Urine SS Bilirubin Ql (U) Negative (01/26/24 12:19 PM) Normal Negative AO Auto Urine SS Color (U) Yellow (01/26/24 12:19 PM) Normal AO Auto Urine SS Glucose Test strip (U) [Mass/Vol] 500 mg/dL Invalid Interpretation Code Negative AO Auto Urine SS Hemoglobin Auto test strip (U) [Mass/Vol] Moderate *ABN* (01/26/24 12:19 PM) Invalid Interpretation Code Negative AO Auto Urine SS Ketones Ql (U) >=160 mg/dL Invalid Interpretation Code Negative AO Auto Urine SS UA Leuk Est Negative (01/26/24 12:19 PM) Normal Negative AO Auto Urine SS UA Nitrite Negative (01/26/24 12:19 PM) Normal Negative AO Auto Urine SS UA pH 5.5 (01/26/24 12:19 PM) Normal 5.0 - 8.0 AO Auto Urine SS UA Protein 100 mg/dL Invalid Interpretation Code Negative AO Auto Urine SS UA RBC 0-5 /HPF Invalid Interpretation Code None Seen AO Auto Urine SS UA Spec Grav >=1.030 *ABN* (01/26/24 12:19 PM) Invalid Interpretation Code 1.015-1.025 AO Auto Urine SS UA Specimen Type Clean Catch (01/26/24 12:19 PM) Normal AO Auto Urine SS UA Squam Epithelial 0-5 /HPF Invalid Interpretation Code None Seen AO Auto Urine SS UA Urobilinogen 0.2 E.U./dL Normal 0.2-1.0 AO Auto Urine SS WBC LM.HPF (Urine sed) [#/Area] 0-5 /HPF Invalid Interpretation Code None Seen AO Auto Urine SS LIPon 01-26-2024 Lipase Level 48 U/L Normal 16-77 [facility] ([place]) Comment on above: Performed By: #### C TRISTEN NINO MDW, GFR, MG, CBC, ADIFF #### [address] [place], [place] [address] MGon 01-26-2024 Magnesium [Mass/Vol] 1.8 mg/dL Normal 1.8-2.4 [facility] ([place]) Comment on above: Performed By: #### C TRISTEN NINO MDW, GFR, MG, CBC, ADIFF #### [place] [address] UAon 01-26-2024 Color (U) Yellow Normal [facility] ([place]) Comment on above: Performed By: #### U A, UAMICAO #### [place] [id number] Glucose (U) [Mass/Vol] 500 mg/dL Abnormal Negative [facility] ([place]) Comment on above: Performed By: #### U A, UAMICAO #### [place] [address] Ketones Ql (U) >=160 Abnormal Negative [facility] ([place]) Comment on above: Performed By: #### U A, UAMICAO #### [place] [address] UA Appear Clear Normal Clear [facility] ([place]) Comment on above: Performed By: #### U A, UAMICAO #### [place] [address] UA Blood Moderate Abnormal Negative [facility] ([place]) Comment on above: Performed By: #### U A, UAMICAO #### [place] [address] UA Leuk Est Negative Normal Negative [facility] ([place]) Comment on above: Performed By: #### U A, UAMICAO #### [place] [address] UA Nitrite Negative Normal Negative [facility] ([place]) Comment on above: Performed By: #### U A, UAMICAO #### [place] [address] UA pH 5.5 Normal 5.0 - 8.0 [facility] ([place]) Comment on above: Performed By: #### U A, UAMICAO #### [place] [address] UA Protein 100 mg/dL Abnormal Negative [facility] ([place]) Comment on above: Performed By: #### U A, UAMICAO #### [place] [address] UA Spec Grav >=1.030 Abnormal 1.015-1.025 [facility] ([place]) Comment on above: Performed By: #### U A, UAMICAO #### [place] [address] [place], [place] [address] UA Specimen Type Clean Catch Normal [facility] ([place]) Comment on above: Performed By: #### U A, UAMICAO #### [place] [id number] UA Urobilinogen 0.2 E.U./dL Normal 0.2-1.0 [facility] ([place]) Comment on above: Performed By: #### U A, UAMICAO #### [place] [address] Urobilinogen (U) [Mass/Vol] Negative Normal Negative [facility] ([place]) Comment on above: Performed By: #### U A, UAMICAO #### [place] [address] Absolute lymphocyte countOrd ered By: ED PROVIDER on 01-25-2024 Lymphocytes Auto (Unsp spec) [#/Vol] 2.82 10*3/uL 0.83-4.51 [facility] Automated lymphocyte count a s percentage of total leukocytesOrdered By: ED PROVIDER on 01-25-2024 Lymphocytes/100 WBC Auto (Unsp spec) 21.7 % 19-41 [facility] Basophil percentageOrdered B y: Ryan Mccracken on 01-25-2024 Basophil percentage 0 SEEN /hpf 0-5 [facility] Bilirubin [Mass/Vol] 0.50 mg/dL 0.20-1.00 [facility] Comment on above: For patients on eltr ombopag therapy, use of Dimension [place] TBIL is not recommended. Chloride [Moles/Vol] 101 mmol/L 98-107 [facility] Glucose [Mass/Vol] 278 mg/dL 74-106 [facility] Comment on above: Glucose result great er than or equal to 200 mg/dLsuggests DIABETES MELLITUS per A.D.A. criteria. Potassium [Moles/Vol] 3.8 mmol/L 3.5-5.1 [facility] Comment on above: Moderate Hemolysis, Result may be falsely increased. Protein [Mass/Vol] 9.2 g/dL 6.4-8.2 [facility] Sodium [Moles/Vol] 136 mmol/L 136-145 [facility] Basophil percentageOrdered B y: ED PROVIDER on 01-25-2024 Basophils/100 WBC (Bld) 0.5 % 0-1 [facility] Eosinophils/100 WBC (Bld) 0.4 % 0-5 [facility] Hemoglobin (Bld) [Mass/Vol] 15.0 g/dL 13.0-16.5 [facility] Monocytes/100 WBC (Bld) 5.3 % 0-10 [facility] Neutrophils (Bld) [#/Vol] 9.3 10*3/uL 2.0-7.7 [facility] Neutrophils/100 WBC (Bld) 71.6 % 47-70 [facility] WBC (Bld) [#/Vol] 13.0 10*3/uL 4.4-11.0 [facility] Bilirubin Test strip Ql (U)O rdered By: Ryan Mccracken on 01-25-2024 Bilirubin Ql (U) Negative Negative [facility] Determination of erythrocyte mean corpuscular volume (MCV)Ordered By: ED PROVIDER on 01-25-2024 MCV (RBC) [Entitic vol] 84.8 fL 80-94 [facility] Direct bilirubinOrdered By: Ryan Mccracken on 01-25-2024 Bilirubin.direct [Mass/Vol] 0.06 mg/dL 0.00-0.30 [facility] Erythrocyte distribution wid th ratioOrdered By: ED PROVIDER on 01-25-2024 Erythrocyte distribution width (RBC) [Ratio] 12.9 % 11.6-14.6 [facility] Erythrocyte distribution wid th standard deviationOrdered By: ED PROVIDER on 01-25-2024 Erythrocyte distribution width (RBC) [Entitic vol] 39.9 fL 35.1-43.9 [facility] Hematocrit Auto (Bld) [Volum e fraction]Ordered By: ED PROVIDER on 01-25-2024 Hematocrit (Bld) [Volume fraction] 44.7 % 40-54 [facility] Immature granulocytes/100 WB C Auto (Bld)Ordered By: ED PROVIDER on 01-25-2024 Immature granulocytes/100 WBC (Bld) 0.500 % 0.0-0.9 [facility] Comment on above: IG% - Immature Granu locytes (promyelocytes, myelocytes and metamyelocytes) > 1% indicates that a LEFT SHIFT is Present. Ketones Test strip Ql (U)Ord ered By: Ryan Mccracken on 01-25-2024 Ketones Ql (U) 150 mg/dl Negative [facility] Comment on above: CRITICAL VALUE *HCRI TICAL VALUE VERIFIED. CALLED TO ETEAL01/25/24 2210 Liv Morel.RESULTS READ BACK BY SAME . Laboratory - Chemistry and C hemistry - challengeOrdered By: Ryan Mccracken on 01-25-2024 Albumin/Globulin [Mass ratio] 0.8 {ratio} 0.9-2.4 [facility] ALP [Catalytic activity/Vol] 92 U/L 45-117 [facility] ALT [Catalytic activity/Vol] 18 U/L 16-61 [facility] CO2 [Moles/Vol] 21.0 mmol/L 21.0-32.0 [facility] [facility] Globulin (S) [Mass/Vol] 5.0 g/dL 2.2-4.2 [facility] Lipase [Catalytic activity/Vol] 37 U/L 13-75 [facility] Comment on above: Please note:LIPASE r evised reference range effective 23. New Lipase methodology. Expected to produce lower values than the previous assay method. NEW Reference Range: 13 - 75 U/L Urea nitrogen/Creatinine [Mass ratio] 18.1 mg/mg 10-20 [facility] Laboratory - Hematology and Cell countsOrdered By: ED PROVIDER on 01-25-2024 MCH (RBC) [Entitic mass] 28.5 pg 27.0-32.0 [facility] MCHC (RBC) [Mass/Vol] 33.6 g/dL 32-36 [facility] Nucleated RBC/100 WBC (Bld) [Ratio] 0 % 0-5 [facility] Platelet mean volume (Bld) [Entitic vol] 9.7 fL 6.2-12.0 [facility] Platelets (Bld) [#/Vol] 365 10*3/uL 150-450 [facility] Mucus LM Ql (Urine sed)Order ed By: Ryan Mccracken on 01-25-2024 Mucus Ql (Urine sed) 0 SEEN /hpf [facility] Nitrite Test strip Ql (U)Ord ered By: Ryan Mccracken on 01-25-2024 Nitrite Ql (U) Negative Negative [facility] No Panel InformationOrdered By: Ryan Mccracken on 01-25-2024 Urine RBC 0-5 SEEN /hpf 0-5 [facility] Estimated Creatinine Clearance Calc 85.54 ml/min [facility] Estimated GFR (MDRD) Amer 102 mL/min >60 [facility] Comment on above: GFR Calc Estimated GFR (MDRD) Non-Af Amer 84 mL/min >60 [facility] Comment on above: Non- GFR Calc Protein Test strip Ql (U)Ord ered By: Ryan Mccracken on 01-25-2024 Protein Ql (U) 30 mg/dl Negative [facility] RBC Auto (Bld) [#/Vol]Ordere d By: ED PROVIDER on 01-25-2024 RBC (Bld) [#/Vol] 5.27 10*6/uL 4.6-6.2 [facility] Serum or plasma calcium luis carlos urement (mass/volume)Ordered By: Ryan Mccracken on 01-25-2024 Calcium [Mass/Vol] 9.6 mg/dL 8.5-10.1 [facility] Serum or plasma creatinine m easurement (mass/volume)Ordered By: Ryan Mccracken on 01-25-2024 Creatinine [Mass/Vol] 1.05 mg/dL 0.70-1.30 [facility] Comment on above: The validity of the calculated GFR & GFRAA in patients over 70 years has not been determined. Clinical correlation is essential. Serum or plasma urea nitroge n measurement (mass/volume)Ordered By: Ryan Mccracken on 01-25-2024 Urea nitrogen [Mass/Vol] 19 mg/dL 7-18 [facility] Squamous epithelial cells de tection in urine sediment by light microscopyOrdered By: Ryan Mccracken on 01-25-2024 Epithelial cells.squamous LM Ql (Urine sed) 0 SEEN /hpf 0-5 [facility] Thin prep Papanicolaou smear with manual screeningOrdered By: Ryan Mccracken on 01-25-2024 Thin prep Papanicolaou smear with manual screening 4.2 g/dL 3.2-5.0 [facility] Thin prep Papanicolaou smear with manual screening 31 U/L 15-37 [facility] Comment on above: Moderate Hemolysis, Result may be falsely increased. Thin prep Papanicolaou smear with manual screening 14 5-15 [facility] Urine blood detectionOrdered By: Ryan Mccracken on 01-25-2024 RBC Ql (U) 25 /ul Negative [facility] Urine clarityOrdered By: Ryan Mccracken on 01-25-2024 Clarity (U) Clear Clear [facility] Urine color determinationOrd ered By: Ryan Mccracken on 01-25-2024 Color (U) Yellow Yellow [facility] Urine glucose detectionOrder ed By: Ryan Mccracken on 01-25-2024 Glucose Ql (U) 1000 mg/dl Normal [facility] Urine leukocyte esterase det ection by dipstickOrdered By: Ryan Mccracken on 01-25-2024 Leukocyte esterase Test strip Ql (U) Negative Negative [facility] Urine pHOrdered By: Ryan scott on 01-25-2024 pH (U) 7.0 [pH] 5.0 - 8.0 [facility] Urine sediment bacteria coun t by microscopy (number/high power field)Ordered By: Ryan Mccracken on 01-25-2024 Bacteria LM.HPF (Urine sed) [#/Area] 0 /[HPF] None Seen [facility] Urine specific gravity measu rementOrdered By: Ryan Mccracken on 01-25-2024 Specific gravity (U) [Rel density] 1.010 1.002-1.030 [facility] Urine urobilinogen measureme ntOrdered By: Ryan Mccracken on 01-25-2024 Urobilinogen Ql (U) Normal mg/dl Normal [facility] XR CHEST 2V FRONTAL/LATon [facility] XR Chest PA and Lateralon IMPRESSION: No acute radiographic abnormality. Ultrasound Applications Specialist: TREY Transcribe Date/Time: Oct 15 2023 12:50P Dictated by : HYACINTH HAQUE MD This examination was interpreted and the report reviewed and electronically signed by: HYACINTH HAQUE MD on Oct 15 2023 12:51PM [facility] DIVISION OF RADIOLOGY * * *Final Report* * * DATE OF EXAM: Oct 15 2023 12:23PM WOX [id number] - XR CHEST 2V FRONTAL/LAT / PROCEDURE REASON: Chronic cough * * * * Physician Interpretation * * * * EXAMINATION: CHEST RADIOGRAPH (2 VIEW FRONTAL & LATERAL) CLINICAL HISTORY: Chronic cough MQ: XC2_6 EXAM DATE/TIME: 10/15/2023 12:23 PM COMPARISON: No relevant prior studies available. RESULT: Lines, tubes, and devices: None. Lungs and pleura: No consolidation. No lung mass. No pleural effusion. No pneumothorax. Cardiomediastinal silhouette: Normal cardiomediastinal silhouette. Bones and soft tissues: Unremarkable. DIVISION OF RADIOLOGY Provider, [facility] - 10/15/2023 * * *Final Report* * * DATE OF EXAM: Oct 15 2023 12:23PM WOX [id number] - XR CHEST 2V FRONTAL/LAT / PROCEDURE REASON: Chronic cough * * * * Physician Interpretation * * * * EXAMINATION: CHEST RADIOGRAPH (2 VIEW FRONTAL & LATERAL) CLINICAL HISTORY: Chronic cough MQ: XC2_6 EXAM DATE/TIME: 10/15/2023 12:23 PM COMPARISON: No relevant prior studies available. RESULT: Lines, tubes, and devices: None. Lungs and pleura: No consolidation. No lung mass. No pleural effusion. No pneumothorax. Cardiomediastinal silhouette: Normal cardiomediastinal silhouette. Bones and soft tissues: Unremarkable. IMPRESSION IMPRESSION: No acute radiographic abnormality. Ultrasound Applications Specialist: PSCB Transcribe Date/Time: Oct 15 2023 12:50P Dictated by : HYACINTH HAQUE MD This examination was interpreted and the report reviewed and electronically signed by: HYACINTH HAQUE MD on Oct 15 2023 12:51PM [facility] Radiology Study observation (narrative) [facility] XR Chest PA and LateralOrder ed By: Cc Provider on 10-15-2023 [facility] Vital Signs Date Time Vital Sign Value Performing Clinician Facility 06-08-2025 10:47-0400 Body height 167.64 cm Austin Camarena [employer] REBU[employer] Work Phone: 7(735)358-111068 [place] [address] 06-08-2025 10:47-0400 Body mass index (BMI) [Ratio] 27.6 kg/m2 Austin Camarena [employer] Work Phone: 4(966)370-753368 [place] [address] 06-08-2025 10:47-0400 Body weight 77.73 kg Austin Camarena [employer] Work Phone: 0(159)622-373668 [place] [address] 06-08-2025 10:47-0400 Diastolic blood pressure 78 mm[Hg] Austin Camarena [employer] Work Phone: 3(089)090-216268 [place] [address] 06-08-2025 10:47-0400 Heart rate 99 /min Austin Camarena [employer] Work Phone: 4(555)992-905268 [place] [address] 06-08-2025 10:47-0400 SaO2% (BldA) [Mass fraction] 97 % Austin Camarena [employer] Work Phone: 8(152)431-428868 [place] [address] 06-08-2025 10:47-0400 Systolic blood pressure 114 mm[Hg] Austin Camarena [employer] Work Phone: 5(048)636-927768 [place] [address] 05-03-2025 08:45-0400 Body height 167.64 cm Austin Camarena [employer] Work Phone: 7(248)667-089568 [place] [address] 05-03-2025 08:45-0400 Body mass index (BMI) [Ratio] 26.4 kg/m2 Austin Camarena [employer] Work Phone: 2(928)715-722568 [place] [address] 05-03-2025 08:45-0400 Body weight 74.44 kg Austin Camarena [employer] Work Phone: 5(324)526-007068 [place] [address] 05-03-2025 08:45-0400 Diastolic blood pressure 76 mm[Hg] Austin Camarena [employer] Work Phone: 5(341)285-797668 [place] [address] 05-03-2025 08:45-0400 Heart rate 93 /min Austin Camarena [employer] Work Phone: 8(930)262-752568 [place] [address] 05-03-2025 08:45-0400 SaO2% (BldA) [Mass fraction] 98 % Austin Camarena [employer] Work Phone: [facility] 05-03-2025 08:45-0400 Systolic blood pressure 130 mm[Hg] Austin Camarena [employer] Work Phone: [facility] 04-30-2025 14:31-0400 Body weight 72 kg Austin Camarena MEDICATION AIDE.SHIPPING ASSOCIATE Work Phone: [facility] 04-30-2025 14:31-0400 Diastolic blood pressure 79 mm[Hg] Austin Camarena MEDICATION AIDE.SHIPPING ASSOCIATE Work Phone: [facility] 04-30-2025 14:31-0400 Heart rate 109 /min Austin Camarena MEDICATION AIDE.SHIPPING ASSOCIATE Work Phone: [facility] 04-30-2025 14:31-0400 Systolic blood pressure 115 mm[Hg] Austin Camarena MEDICATION AIDE.SHIPPING ASSOCIATE Work Phone: [facility] 04-19-2025 13:13-0400 Body height 167.64 cm Austin Camarena [employer] Work Phone: [facility] 04-19-2025 13:13-0400 Body mass index (BMI) [Ratio] 25.8 kg/m2 Austin Camarena [employer] Work Phone: [facility] 04-19-2025 13:13-0400 Body weight 72.57 kg Austin Camarena [employer] REBUIL[employer] Work Phone: [facility] 04-19-2025 13:13-0400 Diastolic blood pressure 75 mm[Hg] Austin Camarena [employer] REBU[employer] Work Phone: [facility] 04-19-2025 13:13-0400 Heart rate 105 /min Austin Camarena [employer] REBUILDER[employer] Work Phone: [facility] 04-19-2025 13:13-0400 SaO2% (BldA) [Mass fraction] 97 % Austin Camarena [employer] REBU[employer] Work Phone: [facility] 04-19-2025 13:13-0400 Systolic blood pressure 115 mm[Hg] Austin Camarena [employer]BU[employer] Work Phone: 9(980)963-166068 [place] [address] 02-06-2025 17:10-0400 Body height 167.64 cm Austin Camarena [employer] Work Phone: 1(825)043-973168 [place] [address] 02-06-2025 17:10-0400 Body mass index (BMI) [Ratio] 28.1 kg/m2 Austin Camarena [employer] Work Phone: 4(570)709-718368 [place] [address] 02-06-2025 17:10-0400 Body temperature 98.3 [degF] Austin Camarena [employer] Work Phone: 0(245)109-652268 [place] [address] 02-06-2025 17:10-0400 Body weight 79.15 kg Austin Camarena [employer] Work Phone: 1(893)849-402568 [place] [address] 02-06-2025 17:10-0400 Diastolic blood pressure 99 mm[Hg] Austin Camarena [employer]BU[employer] Work Phone: 9(570)599-123368 [place] [address] 02-06-2025 17:10-0400 Heart rate 94 /min Austin Camarena [employer] Work Phone: 9(708)481-089568 [place] [address] 02-06-2025 17:10-0400 Respiratory rate 16 /min Austin Camarena [employer] REBUIL[employer] Work Phone: 7(156)387-914868 [place] [address] 02-06-2025 17:10-0400 SaO2% (BldA) [Mass fraction] 100 % Austin Camarena [employer] REBU[employer] Work Phone: 0(461)316-948368 [place] [address] 02-06-2025 17:10-0400 Systolic blood pressure 167 mm[Hg] Austin Camarena [employer]BU[employer] Work Phone: 4(123)627-552368 [place] [address] 01-25-2025 15:43-0400 Body weight 75.9 kg Austin Camarena MEDICATION AIDE.SHIPPING ASSOCIATE Work Phone: 6(507)[phone] [place] [address] 01-25-2025 15:43-0400 Diastolic blood pressure 78 mm[Hg] Austin Camarena MEDICATION AIDE.SHIPPING ASSOCIATE Work Phone: [facility] 01-25-2025 15:43-0400 Heart rate 108 /min Austin Camarena APRN.SHIPPING ASSOCIATE Work Phone: [facility] 01-25-2025 15:43-0400 Respiratory rate 12 /min Austin Camarena APRN.SHIPPING ASSOCIATE Work Phone: [facility] 01-25-2025 15:43-0400 Systolic blood pressure 124 mm[Hg] Austin Camarena APRN.SHIPPING ASSOCIATE Work Phone: [facility] 01-18-2025 13:03-0400 Body mass index (BMI) [Ratio] 26.9 kg/m2 Austin Camarena [employer] REBU[employer] Work Phone: [facility] 01-18-2025 13:03-0400 Body weight 75.52 kg Austin Camarena [employer]OR REBUILDER[employer]C Work Phone: [facility] 01-18-2025 13:03-0400 Diastolic blood pressure 68 mm[Hg] Austin Camarena [employer]BURETOR REBUILDER-C Work Phone: [facility] 01-18-2025 13:03-0400 Heart rate 112 /min Austin Camarena [employer]BURET[employer] REBUILDER-C Work Phone: [facility] 01-18-2025 13:03-0400 SaO2% (BldA) [Mass fraction] 96 % Austin Camarena [employer]OR REBUILDER-C Work Phone: [facility] 01-18-2025 13:03-0400 Systolic blood pressure 106 mm[Hg] Austin Camarena CARBURETOR REBUILDER-C Work Phone: [facility] 12-28-2024 10:23-0500 Diastolic blood pressure 84 mm[Hg] Austin Camarena APRN.SHIPPING ASSOCIATE Work Phone: [facility] 12-28-2024 10:23-0500 Systolic blood pressure 128 mm[Hg] Austin Camarena APRN.SHIPPING ASSOCIATE Work Phone: [facility] 12-28-2024 10:08-0500 Body weight 69.4 kg Austin Knoble MEDICATION AIDE.SHIPPING ASSOCIATE Work Phone: [facility] 12-28-2024 10:08-0500 Heart rate 94 /min Austin Camarena MEDICATION AIDE.SHIPPING ASSOCIATE Work Phone: [facility] 12-11-2024 09:19-0500 Diastolic blood pressure 88 mm[Hg] Austin Camarena MEDICATION AIDE.SHIPPING ASSOCIATE Work Phone: [facility] 12-11-2024 09:19-0500 Systolic blood pressure 124 mm[Hg] Austin Camarena MEDICATION AIDE.SHIPPING ASSOCIATE Work Phone: [facility] 12-11-2024 09:06-0500 Body weight 70.76 kg Austin Camarena MEDICATION AIDE.SHIPPING ASSOCIATE Work Phone: [facility] 12-11-2024 09:06-0500 Heart rate 89 /min Austin Camarena MEDICATION AIDE.SHIPPING ASSOCIATE Work Phone: [facility] 12-11-2024 09:06-0500 Respiratory rate 14 /min Austin Camarena MEDICATION AIDE.SHIPPING ASSOCIATE Work Phone: [facility] 11-27-2024 15:45-0500 Diastolic blood pressure 85 mm[Hg] Austin Camarena MEDICATION AIDE.SHIPPING ASSOCIATE Work Phone: [facility] 11-27-2024 15:45-0500 Systolic blood pressure 135 mm[Hg] Austin Camarena MEDICATION AIDE.SHIPPING ASSOCIATE Work Phone: [facility] 11-27-2024 15:29-0500 Body weight 70.76 kg Austin Camarena MEDICATION AIDE.SHIPPING ASSOCIATE Work Phone: [facility] 11-27-2024 15:29-0500 Heart rate 92 /min Austin Camarena MEDICATION AIDE.SHIPPING ASSOCIATE Work Phone: [facility] 11-27-2024 15:29-0500 Respiratory rate 14 /min Austin Chelsey MEDICATION AIDE.SHIPPING ASSOCIATE Work Phone: [facility] 11-22-2024 11:44-0500 Body mass index (BMI) [Ratio] 25 kg/m2 Austin Camarena NP-C Work Phone: 7(521)655-248968 [place] [address] 11-22-2024 11:44-0500 Body weight 70.3 kg Austin Camarena [employer] REBUILDER[employer]C Work Phone: 5(197)696-623768 [place] [address] 11-22-2024 11:44-0500 Diastolic blood pressure 80 mm[Hg] Austin Camarena [employer]BURETOR REBUILDER-C Work Phone: 4(032)537-962268 [place] [address] 11-22-2024 11:44-0500 Heart rate 100 /min Austin Camarena CARBURETOR REBUILDER-C Work Phone: 3(965)426-439368 [place] [address] 11-22-2024 11:44-0500 SaO2% (BldA) [Mass fraction] 97 % Austin Camarena [employer]BURETOR REBUILDER-C Work Phone: 4(970)188-958468 [place] [address] 11-22-2024 11:44-0500 Systolic blood pressure 124 mm[Hg] Austin Camarena CARBURETOR REBUILDER-C Work Phone: 1(881)130-844468 [place] [address] 10-28-2024 17:40-0500 Body temperature 98 [degF] Austin Camarena CARBURETOR REBUILDER-C Work Phone: 9(115)698-561568 [place] [address] 10-28-2024 17:40-0500 Diastolic blood pressure 101 mm[Hg] Austin Camarena [employer]BURETOR REBUILDER-C Work Phone: 6(093)458-828168 [place] [address] 10-28-2024 17:40-0500 Heart rate 102 /min Austin Camarena CARBURETOR REBUILDER-C Work Phone: 6(250)105-520668 [place] [address] 10-28-2024 17:40-0500 Respiratory rate 18 /min Austin Camarena CARBURETOR REBUILDER-C Work Phone: 3(339)344-883868 [place] [address] 10-28-2024 17:40-0500 SaO2% (BldA) [Mass fraction] 100 % Austin Camarena CARBURETOR REBUILDER-C Work Phone: 7(913)959-165868 [place] [address] 10-28-2024 17:40-0500 Systolic blood pressure 140 mm[Hg] Austin Camarena [employer]BURETOR REBUILDER-C Work Phone: 3(018)568-838968 [place] [address] 10-28-2024 13:41-0500 Body mass index (BMI) [Ratio] 23.8 kg/m2 Austin Camarena CARBURETOR REBUILDER-C Work Phone: [facility] 10-28-2024 13:41-0500 Body weight 67.1 kg Austin Camarena CARBURETOR REBUILDER-C Work Phone: [facility] 08-07-2024 08:59-0400 Body weight 71.22 kg Austin Camarena MEDICATION AIDE.SHIPPING ASSOCIATE Work Phone: [facility] 08-07-2024 08:59-0400 Diastolic blood pressure 85 mm[Hg] Austin Camarena MEDICATION AIDE.SHIPPING ASSOCIATE Work Phone: [facility] 08-07-2024 08:59-0400 Heart rate 97 /min Austin Camarena MEDICATION AIDE.SHIPPING ASSOCIATE Work Phone: [facility] 08-07-2024 08:59-0400 Respiratory rate 14 /min Austin Camarena MEDICATION AIDE.SHIPPING ASSOCIATE Work Phone: [facility] 08-07-2024 08:59-0400 Systolic blood pressure 132 mm[Hg] Austin Camarena MEDICATION AIDE.SHIPPING ASSOCIATE Work Phone: [facility] 05-16-2024 13:23-0400 Body weight 66.22 kg Austin Camarena MEDICATION AIDE.SHIPPING ASSOCIATE Work Phone: [facility] 05-16-2024 13:23-0400 Diastolic blood pressure 64 mm[Hg] Austin Camarena MEDICATION AIDE.SHIPPING ASSOCIATE Work Phone: [facility] 05-16-2024 13:23-0400 Heart rate 103 /min Austin Camarena MEDICATION AIDE.SHIPPING ASSOCIATE Work Phone: [facility] 05-16-2024 13:23-0400 Respiratory rate 14 /min Austin Camarena MEDICATION AIDE.SHIPPING ASSOCIATE Work Phone: [facility] 05-16-2024 13:23-0400 Systolic blood pressure 101 mm[Hg] Austin Camarena MEDICATION AIDE.SHIPPING ASSOCIATE Work Phone: [facility] 05-05-2024 15:54-0400 Diastolic Blood Pressure Non-Invasive 72 mm[Hg] JESSICA KILLIAN DO [facility] 05-05-2024 15:54-0400 Heart rate 98 /min JESSICA GRACET DO [facility] 05-05-2024 15:54-0400 Respiratory rate 20 /min JESSICA GRACET DO [facility] 05-05-2024 15:54-0400 Systolic Blood Pressure Non-Invasive 127 mm[Hg] JESSICA GRACET DO [facility] 05-05-2024 14:27-0400 Diastolic Blood Pressure Non-Invasive 71 mm[Hg] JESSICA GRACET DO [facility] 05-05-2024 14:27-0400 Heart rate 107 /min JESSICA GRACET [place] [facility] 05-05-2024 14:27-0400 Respiratory rate 16 /min JESSICA GRACET [place] [facility] 05-05-2024 14:27-0400 Systolic Blood Pressure Non-Invasive 140 mm[Hg] JESSICA GRACET DO [facility] 05-05-2024 14:22-0400 SaO2% (BldA) [Mass fraction] 82.0 % JESSICA GRACET DO [facility] 05-05-2024 13:37-0400 Body temperature 97.7 [degF] JESSICA GRACET DO [facility] 05-05-2024 13:37-0400 Body weight 65.3 kg JESSICA GRACET DO [facility] 05-05-2024 13:37-0400 Diastolic Blood Pressure Non-Invasive 68 mm[Hg] JESSICA GRACET [place] [facility] 05-05-2024 13:37-0400 Heart rate 113 /min JESSICA KILLIAN DO [facility] 05-05-2024 13:37-0400 Respiratory rate 20 /min JESSICA KILLIAN DO [facility] 05-05-2024 13:37-0400 Systolic Blood Pressure Non-Invasive 97 mm[Hg] JESSICA KILLIAN DO [facility] 01-29-2024 14:22-0400 Body height 167.64 cm CARBURETOR REBUILDER-C Austin Camarena Work Phone: [facility] 01-29-2024 14:22-0400 Body weight 62.7 kg CARBURETOR REBUILDER-C Austin Camarena Work Phone: [facility] 01-29-2024 09:41-0400 Diastolic blood pressure 91 mm[Hg] CARBURETOR REBUILDER-C Austin Camarena Work Phone: [facility] 01-29-2024 09:41-0400 Systolic blood pressure 158 mm[Hg] CARBURETOR REBUILDER-C Austin Camarena Work Phone: [facility] 01-29-2024 08:00-0400 Body temperature 97.5 [degF] CARBURETOR REBUILDER-C Austin Camarena Work Phone: [facility] 01-29-2024 08:00-0400 Heart rate 94 /min [employer]OR REBUILDER-C Austin Camarena Work Phone: [facility] 01-29-2024 08:00-0400 Respiratory rate 14 /min [employer]BURETOR REBUILDER-C Austin Camarena Work Phone: [facility] 01-29-2024 08:00-0400 SaO2% (BldA) [Mass fraction] 100 % CARBURETOR REBUILDER-C Austin Camarena Work Phone: [facility] 01-27-2024 16:50-0400 Body temperature 98.3 [degF] [facility] 01-27-2024 16:50-0400 Diastolic blood pressure 87 mm[Hg] [facility] 01-27-2024 16:50-0400 Heart rate 89 /min [facility] 01-27-2024 16:50-0400 Respiratory rate 20 /min [facility] 01-27-2024 16:50-0400 SaO2% (BldA) [Mass fraction] 99 % [facility] 01-27-2024 16:50-0400 Systolic blood pressure 139 mm[Hg] [facility] 01-27-2024 16:25-0400 Body height 167.64 cm [facility] 01-27-2024 16:25-0400 Body mass index (BMI) [Ratio] 22.3 kg/m2 [facility] 01-27-2024 16:25-0400 Body weight 62.7 kg [facility] 01-27-2024 11:07-0400 Body weight 63.8 kg Austin Camarena APRN.SHIPPING ASSOCIATE Work Phone: [facility] 01-27-2024 11:07-0400 Diastolic blood pressure 92 mm[Hg] Austin Camarena MEDICATION AIDE.SHIPPING ASSOCIATE Work Phone: [facility] 01-27-2024 11:07-0400 Heart rate 121 /min Austin Camarena APRN.SHIPPING ASSOCIATE Work Phone: [facility] 01-27-2024 11:07-0400 Respiratory rate 16 /min Austin Camarena MEDICATION AIDE.SHIPPING ASSOCIATE Work Phone: [facility] 01-27-2024 11:07-0400 Systolic blood pressure 165 mm[Hg] Austin Camarena MEDICATION AIDE.SHIPPING ASSOCIATE Work Phone: [facility] 01-26-2024 16:41-0400 Blood Pressure Location SARAVANAN SNACHEZ MD [facility] 01-26-2024 16:41-0400 Blood Pressure Method SARAVANAN SANCHEZ MD [facility] 01-26-2024 16:41-0400 Diastolic Blood Pressure Non-Invasive 88 mm[Hg] SARAVANAN SANCHEZ MD [facility] 01-26-2024 16:41-0400 Heart rate 99 /min SARAVANAN SANCHEZ MD [facility] 01-26-2024 16:41-0400 Respiratory rate 18 /min SARAVANAN SANCHEZ MD [facility] 01-26-2024 16:41-0400 Systolic Blood Pressure Non-Invasive 150 mm[Hg] SARAVANAN SANCHEZ MD [facility] 01-26-2024 14:44-0400 Blood Pressure Location SARAVANAN SANCHEZ MD [facility] 01-26-2024 14:44-0400 Blood Pressure Method SARAVANAN SANCHEZ MD [facility] 01-26-2024 14:44-0400 Diastolic Blood Pressure Non-Invasive 91 mm[Hg] SARAVANAN SANCHEZ MD [facility] 01-26-2024 14:44-0400 Heart rate 114 /min SARAVANAN SANCHEZ MD [facility] 01-26-2024 14:44-0400 Respiratory rate 18 /min SARAVANAN SANCHEZ MD [facility] 01-26-2024 14:44-0400 Systolic Blood Pressure Non-Invasive 168 mm[Hg] SARAVANAN SANCHEZ MD [facility] 01-26-2024 11:47-0400 Blood Pressure Location SARAVANAN SANCHEZ MD [facility] 01-26-2024 11:47-0400 Blood Pressure Method SARAVANAN SANCHEZ MD [facility] 01-26-2024 11:47-0400 Body temperature 98.24 [degF] SARAVANAN SANCHEZ MD [facility] 01-26-2024 11:47-0400 Body weight 63.6 kg SARAVANAN SANCHEZ MD [facility] 01-26-2024 11:47-0400 Diastolic Blood Pressure Non-Invasive 95 mm[Hg] SARAVANAN SANCHEZ MD [facility] 01-26-2024 11:47-0400 Heart rate 128 /min SARAVANAN SANCHEZ MD [facility] 01-26-2024 11:47-0400 Respiratory rate 20 /min SARAVANAN SANCHEZ MD [facility] 01-26-2024 11:47-0400 Systolic Blood Pressure Non-Invasive 177 mm[Hg] SARAVANAN SANCHEZ MD [facility] 01-25-2024 23:41-0400 Body temperature 98.1 [degF] [facility] 01-25-2024 23:41-0400 Diastolic blood pressure 111 mm[Hg] [facility] 01-25-2024 23:41-0400 Heart rate 85 /min [facility] 01-25-2024 23:41-0400 Respiratory rate 14 /min [facility] 01-25-2024 23:41-0400 SaO2% (BldA) [Mass fraction] 99 % [facility] 01-25-2024 23:41-0400 Systolic blood pressure 165 mm[Hg] [facility] 01-25-2024 18:51-0400 Body height 167.64 cm [facility] 01-25-2024 18:51-0400 Body mass index (BMI) [Ratio] 22.5 kg/m2 [facility] 01-25-2024 18:51-0400 Body weight 63.4 kg [facility] 12-28-2023 15:23-0500 Body weight 63.96 kg Austin Camarena APRN.CNP Work Phone: [facility] 12-28-2023 15:23-0500 Diastolic blood pressure 78 mm[Hg] Austin Knoble MEDICATION AIDE.SHIPPING ASSOCIATE Work Phone: [facility] 12-28-2023 15:23-0500 Heart rate 96 /min Austin Knoble MEDICATION AIDE.SHIPPING ASSOCIATE Work Phone: [facility] 12-28-2023 15:23-0500 Respiratory rate 12 /min Austin Knoble MEDICATION AIDE.SHIPPING ASSOCIATE Work Phone: [facility] 12-28-2023 15:23-0500 Systolic blood pressure 122 mm[Hg] Austin Knoble MEDICATION AIDE.SHIPPING ASSOCIATE Work Phone: [facility] 10-22-2023 11:00-0500 Body weight 63.5 kg Austin Knoble MEDICATION AIDE.SHIPPING ASSOCIATE Work Phone: [facility] 10-22-2023 11:00-0500 Diastolic blood pressure 79 mm[Hg] Austin Knoble MEDICATION AIDE.SHIPPING ASSOCIATE Work Phone: [facility] 10-22-2023 11:00-0500 Heart rate 92 /min Austin Knoble MEDICATION AIDE.SHIPPING ASSOCIATE Work Phone: [facility] 10-22-2023 11:00-0500 Respiratory rate 14 /min Austin Knoble MEDICATION AIDE.SHIPPING ASSOCIATE Work Phone: [facility] 10-22-2023 11:00-0500 Systolic blood pressure 119 mm[Hg] Austin Knoble MEDICATION AIDE.SHIPPING ASSOCIATE Work Phone: [facility] 10-15-2023 11:10-0500 Body weight 63.05 kg Austin Knoble MEDICATION AIDE.SHIPPING ASSOCIATE Work Phone: [facility] 10-15-2023 11:10-0500 Diastolic blood pressure 78 mm[Hg] Austin Knoble MEDICATION AIDE.SHIPPING ASSOCIATE Work Phone: [facility] 10-15-2023 11:10-0500 Heart rate 90 /min Austin Knoble MEDICATION AIDE.SHIPPING ASSOCIATE Work Phone: [facility] 10-15-2023 11:10-0500 Respiratory rate 16 /min Austin Knoble MEDICATION AIDE.SHIPPING ASSOCIATE Work Phone: [facility] 10-15-2023 11:10-050 Systolic blood pressure 112 mm[Hg] Austin Camarena APRN.SHIPPING ASSOCIATE Work Phone: [facility] Encounters Encounter Date Encounter Type Care Provider Facility Start: 06-08-2025 End: 06-08-2025 ambulatory Austin Camarena CARBURETOR REBUILDER-C Work Phone: [facility] Start: 06-08-2025 End: 06-08-[address] Mushtaq Hernandez MD -[facility] Work Phone: Start: 05-17-2025 End: 05-17-2025 Patient encounter procedure Jaycob Argueta DO -[facility] Work Phone: Start: 05-17-2025 End: 05-17-2025 ambulatory Austin Camarena CARBURETOR REBUILDER-C Work Phone: [facility] Start: 05-15-2025 End: 05-18-2025 ambulatory Austin Camarena MEDICATION AIDE.SHIPPING ASSOCIATE Work Phone: Internal Medicine [place] [id number] Start: 05-03-2025 End: 05-03-[address] Mushtaq Hernandez MD -[facility] Work Phone: Start: 05-03-2025 End: 05-03-2025 ambulatory Austin Camarena CARBURETOR REBUILDER-C Work Phone: [facility] Work Phone: Start: 05-01-2025 End: 05-01-2025 ambulatory AUSTIN CAMARENA Facility:[facility] Start: 05-01-2025 End: 05-01-2025 Follow-up encounter Austin Camarena APRN.SHIPPING ASSOCIATE Work Phone: [facility] Start: 04-30-2025 End: 04-30-2025 Patient encounter procedure Austin Camarena APRN.SHIPPING ASSOCIATE Work Phone: [facility] Comment on above: Dental infection (Pr imary Dx); Screening for depression; Encounter for screening examination for other mental health and behavioral disorders; Medication management; Elevated LDL cholesterol level; Diabetes 1.5, managed as type 2 (HCC) Start: 04-30-2025 End: 04-30-2025 ambulatory AUSTIN CAMARENA Facility:[facility] Start: 04-25-2025 End: 04-25-2025 ambulatory [facility] Work Phone: [facility] Start: 04-25-2025 End: 04-25-2025 Patient encounter procedure R[facility] Work Phone: [facility] Start: 04-19-2025 End: 04-19-2025 Patient encounter procedure Queenie Gonzales CARBURETOR REBUILDER-C -[facility] Work Phone: Start: 04-19-2025 End: 04-19-2025 ambulatory Austin Camarena CARBURETOR REBUILDER-C Work Phone: [facility] Work Phone: Start: 04-16-2025 ambulatory Austin Camarena Facilit y:[facility] Start: 03-26-2025 End: 03-27-2025 Refill Austin Camarena MEDICATION AIDE.SHIPPING ASSOCIATE Work Phone: [facility] Comment on above: Refill Request Start: 03-06-2025 End: 03-06-2025 Refill Austin Camarena MEDICATION AIDE.SHIPPING ASSOCIATE Work Phone: [facility] Comment on above: Refill Request Start: 02-06-2025 End: 02-06-2025 Emergency department patient visit Austin SYKESC Work Phone: -Emergency Department Work Phone: Start: 01-26-2025 End: 01-26-2025 ambulatory Austin Camarena MEDICATION AIDE.SHIPPING ASSOCIATE Work Phone: [facility] Comment on above: Ultra two Start: 01-25-2025 End: 01-25-2025 Patient encounter procedure Austin Camaerna APRN.SHIPPING ASSOCIATE Work Phone: [facility] Comment on above: ADHD (attention defi cit hyperactivity disorder), predominantly hyperactive impulsive type (Primary Dx) Start: 01-25-2025 End: 01-25-2025 ambulatory AUSTIN CAMARENA Facility:[facility] Start: 01-18-2025 End: 01-18-2025 Patient encounter procedure Queenie CERON -[facility] Work Phone: Start: 01-18-2025 End: 01-18-2025 ambulatory Austin Camarena Facility:[facility] Start: 01-08-2025 End: 03-10-2025 Follow-up encounter Austin Camarena APRN.SHIPPING ASSOCIATE Work Phone: [facility] [place] Start: 01-05-2025 End: 01-08-2025 Refill Austin Camarena APRN.SHIPPING ASSOCIATE Work Phone: [facility] Comment on above: Refill Request Start: 12-28-2024 End: 12-28-2024 Patient encounter procedure Prakash Fontana OD Work Phone: Ophthalmology Comment on above: Type 2 diabetes sergio itus without retinopathy (HCC) (Primary Dx); Myopia, bilateral; Nuclear sclerosis of both eyes Start: 12-28-2024 End: 12-28-2024 Patient encounter procedure Austin Camarena APRN.SHIPPING ASSOCIATE Work Phone: [facility] Comment on above: Medication managemen t (Primary Dx); ADHD (attention deficit hyperactivity disorder), predominantly hyperactive impulsive type Start: 12-28-2024 End: 01-02-2025 ambulatory Austin Camarena APRN.SHIPPING ASSOCIATE Work Phone: [facility] Comment on above: Test results Start: 12-11-2024 End: 12-11-2024 Patient encounter procedure Austin Camarena APRN.SHIPPING ASSOCIATE Work Phone: [facility] Comment on above: ADHD (attention defi cit hyperactivity disorder), predominantly hyperactive impulsive type (Primary Dx); Primary hypertension Start: 12-11-2024 End: 12-11-2024 ambulatory AUSTIN CAMARENA Facility:[facility] Start: 11-27-2024 End: 11-27-2024 ambulatory AUSTIN CAMARENA Facility:[facility] Start: 11-27-2024 End: 11-27-2024 Patient encounter procedure Austin Camarena MEDICATION AIDE.SHIPPING ASSOCIATE Work Phone: Family [facility] [place] Comment on above: ADHD (attention defi cit hyperactivity disorder), predominantly hyperactive impulsive type (Primary Dx) Start: 11-24-2024 End: 11-24-2024 Telephone encounter Austin Camarena APRN.SHIPPING ASSOCIATE Work Phone: [facility] Comment on above: Results Start: 11-22-2024 End: 11-22-2024 Patient encounter procedure Queenie Gonzales NP-C -[facility] Work Phone: Start: 11-22-2024 End: 11-22-2024 ambulatory Austin Camarena Facility:[facility] Start: 11-20-2024 End: 11-20-2024 ambulatory AUSTIN CAMARENA Facility:[facility] Start: 11-07-2024 End: 11-10-2024 ambulatory Austin Camarena MEDICATION AIDE.SHIPPING ASSOCIATE Work Phone: Internal Medicine [place] [id number] Start: 10-28-2024 End: 10-28-2024 Emergency department patient visit Dr. Ludin Sanderson MD -Emergency Department Work Phone: Start: 10-27-2024 End: 10-27-2024 ambulatory PRAKASH FONTANA Facility:[facility] Start: 10-27-2024 End: 10-27-2024 Patient encounter procedure Prakash Fontana OD Work Phone: Ophthalmology Comment on above: Type 2 diabetes sergio itus without retinopathy (HCC) (Primary Dx); Myopia, bilateral; Nuclear sclerosis of both eyes Start: 10-18-2024 End: 10-18-2024 Patient encounter procedure Mary Longoria MEDICATION AIDE.SHIPPING ASSOCIATE [facility] Comment on above: Procedure not niall d out (Primary Dx) Start: 10-18-2024 End: 10-18-2024 Emergency department patient visit BROOKLYN BOSTON DO Facility:[facility] Start: 10-18-2024 End: 10-18-2024 ambulatory AUSTIN CAMARENA Facility:[facility] Start: 10-03-2024 End: 10-03-2024 ambulatory Austin Camarena Facility:[facility] Start: 08-15-2024 End: 08-15-2024 ambulatory Susi Wilhelm Facility:[facility] Start: 08-07-2024 End: 08-07-2024 Patient encounter procedure Austin Camarena APRN.CNP Work Phone: [facility] Comment on above: Nausea and vomiting, unspecified vomiting type (Primary Dx); Type 2 diabetes mellitus with peripheral neuropathy (HCC); Encounter for immunization; Hematemesis with nausea; Acute gastric ulcer without hemorrhage or perforation Start: 08-07-2024 End: 08-07-2024 ambulatory AUSTIN CAMARENA Facility:[facility] Start: 07-31-2024 ambulatory Austin Camarena Facilit y:[facility] Start: 07-30-2024 End: 08-01-2024 ambulatory Victoria Petar Facility:[facility] Start: 07-28-2024 End: 07-29-2024 Emergency department patient visit Austin Camarena Facility:[facility] Start: 07-05-2024 End: 07-05-2024 ambulatory Austin Camarena Facility:[facility] Start: 05-16-2024 End: 05-16-2024 Patient encounter procedure Austin Camarena APRN.SHIPPING ASSOCIATE Work Phone: [facility] Comment on above: Type 2 diabetes sergio itus with peripheral neuropathy (HCC) (Primary Dx); Nausea and vomiting, unspecified vomiting type; Diabetes 1.5, managed as type 2 (HCC); Elevated LDL cholesterol level Start: 05-05-2024 End: 05-05-2024 Emergency department patient visit JESSICA LESLYAnca LATIF [facility] Start: 05-01-2024 Get Medical Advice Austin Camarena APRN.CNP Work Phone: [facility] Comment on above: Refills Start: 04-30-2024 Refill Austin wasserman APRN.CNP Work Phone: [facility] Comment on above: Refill Request Start: 03-28-2024 ambulatory Austin wasserman APRN.SHIPPING ASSOCIATE Work Phone: [facility] Comment on above: Insulin pen needles Start: 02-08-2024 End: 02-08-2024 Patient encounter procedure Eder Flahertyeddie Work Phone: Podiatry Comment on above: Porokeratosis (Prima ry Dx); Diabetes 1.5, managed as type 2 (HCC); Diminished pulses in lower extremity Start: 01-29-2024 Non-patient / Non-visit CARBURETOR REBUILDER-Joanna Camarena Work Phone: [facility] Work Phone: Start: 01-28-2024 Non-patient / Non-visit CARBURETOR REBUILDER-Joanna Camarena Work Phone: [facility] Start: 01-27-2024 End: 01-29-2024 Evaluation and management of inpatient [facility] 3 Work Phone: Start: 01-27-2024 End: 01-27-2024 Patient encounter procedure Austin Camarena APRN.SHIPPING ASSOCIATE Work Phone: [facility] Comment on above: Type 2 diabetes sergio itus without complication, without long- term current use of insulin (HCC) (Primary Dx); Nausea and vomiting, unspecified vomiting type Start: 01-26-2024 ambulatory Austin wasserman APRN.CNP Work Phone: [facility] Comment on above: Vomiting Start: 01-26-2024 End: 01-26-2024 Emergency department patient visit SARAVANAN SANCHEZ MD [facility] Start: 01-25-2024 End: 01-25-2024 Emergency department patient visit [facility] Work Phone: Start: 12-28-2023 End: 12-28-2023 Patient encounter procedure Austin Camarena APRN.SHIPPING ASSOCIATE Work Phone: [facility] Comment on above: Type 2 diabetes sergio itus without complication, without long- term current use of insulin (HCC) (Primary Dx); Encounter for smoking cessation counseling Start: 12-21-2023 Refill Austin wasserman APRN.CNP Work Phone: [facility] Comment on above: Refill Request Start: 10-22-2023 End: 10-22-2023 Patient encounter procedure Austin Camarena APRN.CNP Work Phone: [facility] Comment on above: Type 2 diabetes sergio itus without complication, without long- term current use of insulin (HCC) (Primary Dx); Encounter for smoking cessation counseling Start: 10-15-2023 Telephone encounter Austin de leon APRN.CNP Work Phone: [facility] Comment on above: Results Start: 10-15-2023 End: 10-15-2023 Subsequent hospital visit by physician Xr [facility] Work Phone: Radiology Comment on above: Chronic cough [R05.3 ] Start: 10-15-2023 End: 10-15-2023 Patient encounter procedure Austin Camarena APRN.CNP Work Phone: [facility] Comment on above: Screening for diabet es mellitus (Primary Dx); Encounter for lipid screening for cardiovascular disease; Wellness examination; Bipolar affective disorder, remission status unspecified (HCC); Encounter for immunization; Diabetes 1.5, managed as type 2 (HCC); Special screening examination for viral disease; Screening for HIV (human immunodeficiency virus); Chronic cough; Callus of foot Start: 10-15-2023 End: 10-15-2023 Patient encounter status Austin Camarena APRN.SHIPPING ASSOCIATE Work Phone: [facility] Work Phone: Procedures Date Procedure Procedure Detail Performing Clinician Start: 08-07-2024 PFIZER-BIONTECH COVID-19 VACCINE AGE 12+ YR (COMIRNATY) Austin Camarena APRN.CNP Work Phone: Start: 01-28-2024 Esophagogastroduodenoscopy CARBURETOR REBUILDER-C Austin Camarena Work Phone: Start: 01-27-2024 US scan of gallbladder CARBURETOR REBUILDER-C Austin Camarena Work Phone: Start: 01-25-2024 Computed tomography of abdomen and pelvis with intravenous contrast Start: 10-15-2023 Radiologic exam chest 2 views Austin de leon APRN.SHIPPING ASSOCIATE Work Phone: None (qualifier value) AUGUSTINE SANCHEZ MD Plan of Treatment Date Care Activity Detail Author Start: 10-15-2033 Urine microalbumin profile DTaP,Tdap,Td Vaccine (2 - Td or Tdap) [facility] Start: 05-01-2026 Hepatitis B screening Urine Albumin:Creatinine Ratio [facility] Start: 04-30-2026 Annual PCP Team Chronic Disease Visit Annual PCP Team Chronic Disease Visit [facility] Start: 04-30-2026 Hepatitis B surface antibody level LDL Cholesterol [facility] Start: 01-25-2026 Annual PCP Team Chronic Disease Visit Annual PCP Team Chronic Disease Visit [facility] Start: 01-03-2026 End: 01-03-2026 Patient encounter procedure 01/03/2026 9:00 AM EST Office Visit [facility] [address] [place], [place] [id number] Prakash Fontana, OD [address] [place] [place] [id number] 1 year follow up diabetic eye exam Ophthalmology Comment on above: 1 year follow up diabetic eye exam Start: 12-28-2025 Annual PCP Team Chronic Disease Visit Annual PCP Team Chronic Disease Visit [facility] Start: 12-11-2025 Annual PCP Team Chronic Disease Visit Annual PCP Team Chronic Disease Visit [facility] Start: 11-27-2025 Annual PCP Team Chronic Disease Visit Annual PCP Team Chronic Disease Visit [facility] Start: 11-20-2025 Hepatitis B surface antibody level LDL Cholesterol [facility] Start: 10-30-2025 End: 10-30-2025 Patient encounter procedure 10/30/2025 9:20 AM EST Office Visit [facility] [place] [address] [place], [place] [phone] Austin Camarena APRN.SHIPPING ASSOCIATE [address] [place], [place] [id number] 6 month follow up Family Medicine [facility] Comment on above: 6 month follow up Start: 10-27-2025 Glaucoma screening Dilated Retinal Exam [facility] Start: 08-07-2025 Annual PCP Team Chronic Disease Visit Annual PCP Team Chronic Disease Visit [facility] Start: 07-09-2025 Influenza vaccination [facility] Start: 05-18-2025 End: 05-18-2025 ambulatory 05/18/2025 9:00 AM EDT Results Only Be [facility] [address] [facility] [place] [id number] Be [facility] Start: 05-16-2025 Annual PCP Team Chronic Disease Visit Annual PCP Team Chronic Disease Visit [facility] Start: 05-15-2025 End: 08-14-2025 Hemoglobin A1c in Blood HEMOGLOBIN A1C Lab Routine Diabetes 1.5, managed as type 2 (HCC) Expected: 05/15/2025, Expires: 08/14/2025 [facility] Work Phone: Comment on above: Expected: 05/15/2025, Expires: Start: 05-08-2025 End: 08-07-2025 Comprehensive metabolic 2000 panel - Serum or Plasma COMPREHENSIVE METABOLIC PANEL Lab Routine Hyperkalemia Expected: 05/08/2025, Expires: 08/07/2025 [facility] Work Phone: Comment on above: Expected: 05/08/2025, Expires: Start: 05-07-2025 [facility]: Postp[facility] from 07/09/2024 (Declined at t his time) Start: 04-30-2025 End: 04-30-2025 Patient encounter procedure 04/30/2025 2:40 PM EDT Office Visit [facility] [address] [facility] [place] [phone] Austin Camarena APRN.[facility] [address] [facility] [place] [id number] 3 month follow up [facility] Comment on above: 3 month follow up Start: 04-30-2025 End: 07-30-2025 Microalbumin/Creatinine [Mass Ratio] in Urine ALBUMIN/CREATININE RATIO, URINE Lab Routine Diabetes 1.5, managed as type 2 (HCC) Expected: 04/30/2025, Expires: 07/30/2025 [facility] Work Phone: Comment on above: Expected: 04/30/2025, Expires: Start: 04-27-2025 End: 04-27-2025 Patient encounter procedure 04/27/2025 3:00 PM EDT Office Visit Family Medicine [facility] [address] [place], [place] [phone] Austin Camarena APRN.SHIPPING ASSOCIATE [address] [place] [address] 3 month follow up Family Medicine [facility] Comment on above: 3 month follow up Start: 04-04-2025 Hemoglobin A1c measurement HbA1C [facility] Start: 02-18-2025 Hemoglobin A1c measurement HbA1C [facility] Start: 02-07-2025 Diabetic foot examination Diabetic Foot Exam [facility] Start: 02-06-2025 [facility] Start: 02-02-2025 Annual PCP Team Chronic Disease Visit Annual PCP Team Chronic Disease Visit [facility] Start: 01-26-2025 Annual PCP Team Chronic Disease Visit Annual PCP Team Chronic Disease Visit [facility] Start: 01-25-2025 End: 01-25-2025 Patient encounter procedure 01/25/2025 10:40 AM EDT Office Visit [facility] [address] [place], [place] [phone] Austin Camarena APRN.SHIPPING ASSOCIATE [address] [place], [place] [phone] med follow up Family Medicine [facility] Comment on above: med follow up Start: 01-16-2025 End: 04-17-2025 QUANTITATIVE TOXICOLOGY PANEL, URINE QUANTITATIVE TOXICOLOGY PANEL, URINE Lab Routine Medication management Expected: 01/16/2025, Expires: 04/17/2025 [facility] Work Phone: Comment on above: Expected: 01/16/2025, Expires: Start: 01-16-2025 End: 04-17-2025 TOXICOLOGY SCREEN, ROUTINE URINE TOXICOLOGY SCREEN, ROUTINE URINE Lab Routine Medication management Expected: 01/16/2025, Expires: 04/17/2025 [facility] Comment on above: Expected: 01/16/2025, Expires: Start: 12-28-2024 End: 12-28-2024 Patient encounter procedure 12/28/2024 2:45 PM EST Office Visit [facility] [address] [place] [address] Prakash Fontana, OD [address] [place] [address] refraction check Ophthalmology Comment on above: refraction check Start: 12-28-2024 Annual PCP Team Chronic Disease Visit Annual PCP Team Chronic Disease Visit [facility] Start: 12-28-2024 End: 03-29-2025 QUANTITATIVE TOXICOLOGY PANEL, URINE [facility] Comment on above: Expected: 12/28/2024, Expires: Start: 12-28-2024 End: 03-29-2025 TOXICOLOGY SCREEN, ROUTINE URINE [facility] Work Phone: Comment on above: Expected: 12/28/2024, Expires: Start: 12-11-2024 End: 12-11-2024 Patient encounter procedure 12/11/2024 9:20 AM EST Office Visit [facility] [place] [address] [place] [address] Austin Camarena APRN.SHIPPING ASSOCIATE [address] [place] [id number] 2 week follow up [facility] [place] Comment on above: 2 week follow up Start: 11-27-2024 End: 11-27-2024 Patient encounter procedure 11/27/2024 10:20 AM EST Office Visit [facility] [place] [address] [place] [address] Austin Camarena APRN.SHIPPING ASSOCIATE [facility] [place], [place] [id number] 6 month follow up [facility] Comment on above: 6 month follow up Start: 11-23-2024 End: 11-23-2024 Patient encounter procedure 11/23/2024 1:20 PM EST Office Visit [facility] [place] [address] [facility] [place], [place] [address] Austin Camarena APRN.SHIPPING ASSOCIATE [address] [facility] [place], [place] [phone] 6 month follow up [facility] Comment on above: 6 month follow up Start: 11-16-2024 End: 11-16-2024 Patient encounter procedure 11/16/2024 1:20 PM EST Office Visit [facility] [address] [facility] [place], [place] [phone] Austin Camarena APRN.SHIPPING ASSOCIATE [address] [place], [place] [id number] 6 month follow up [facility] Comment on above: 6 month follow up Start: 11-08-2024 Medicare Advantage Annual Wellness Visit Medicare Advantage Annual Wellness Visit [facility] Start: 11-07-2024 End: 02-06-2025 Basic metabolic 2000 panel - Serum or Plasma BASIC METABOLIC PANEL Lab Routine Diabetes 1.5, managed as type 2 (HCC) Expected: 11/07/2024, Expires: 02/06/2025 [facility] Work Phone: Comment on above: Expected: 11/07/2024, Expires: Start: 11-07-2024 End: 02-06-2025 Hemoglobin A1c in Blood HEMOGLOBIN A1C Lab Routine Diabetes 1.5, managed as type 2 (HCC) Expected: 11/07/2024, Expires: 02/06/2025 [facility] Comment on above: Expected: 11/07/2024, Expires: Start: 11-07-2024 End: 02-06-2025 Lipid 1996 panel - Serum or Plasma LIPID PANEL BASIC Lab Routine Diabetes 1.5, managed as type 2 (HCC) Expected: 11/07/2024, Expires: 02/06/2025 [facility] Comment on above: Expected: 11/07/2024, Expires: Start: 10-28-2024 [facility] Start: 10-27-2024 End: 10-27-2024 Patient encounter procedure Ophthalmology Comment on above: eye ecam diabetic eye exam Start: 10-26-2024 Glaucoma screening Dilated Retinal Exam [facility] Start: 10-22-2024 Annual PCP Team Chronic Disease Visit Annual PCP Team Chronic Disease Visit [facility] Start: 10-15-2024 3 comp foot exam completed Diabetic Foot Exam [facility] Start: 10-15-2024 Annual PCP Team Chronic Disease Visit Annual PCP Team Chronic Disease Visit [facility] Start: 10-15-2024 Diabetic foot examination Diabetic Foot Exam [facility] Start: 10-15-2024 Hepatitis B screening Urine Albumin:Creatinine Ratio [facility] Start: 10-15-2024 Hepatitis B surface antibody level LDL Cholesterol [facility] Start: 10-05-2024 Hemoglobin A1c measurement HbA1C [facility] Start: 07-09-2024 Covid-19 Vaccine ( season) Covid-19 Vaccine () [facility] Start: 07-09-2024 Influenza vaccination [facility] Start: 07-08-2024 Hemoglobin A1c measurement HbA1C [facility] Start: 05-16-2024 End: 05-16-2024 Patient encounter procedure 05/16/2024 1:40 PM EDT Office Visit [address] [phone] Austin Camarena, [facility] [address] [place], [place] [phone] follow up [facility] Comment on above: follow up Start: 05-07-2024 Influenza [facility]: Postp[facility] from 07/09/2023 (Declined at t his time) Start: 04-28-2024 Hemoglobin A1c measurement HbA1C [facility] Start: 04-15-2024 Hemoglobin A1c/Hemoglobin.total in Blood HbA1C [facility] Start: 03-27-2024 Hemoglobin A1c measurement HbA1C [facility] Start: 02-05-2024 Blood chemistry [facility] Start: 02-04-2024 Blood chemistry [facility] Start: 02-03-2024 Blood chemistry [facility] Start: 02-02-2024 Blood chemistry [facility] Start: 02-01-2024 Blood chemistry [facility] Start: 01-31-2024 Blood chemistry [facility] Start: 01-30-2024 Blood chemistry [facility] Start: 01-29-2024 Patient discharge [facility] Start: 01-28-2024 Referral to gastroenterology service [facility] Start: 01-28-2024 Blood chemistry [facility] Start: 01-28-2024 Complete blood count [facility] Start: 01-27-2024 [facility] Start: 01-27-2024 Ambulation without limitation [facility] Start: 01-27-2024 Assessment of risk of venous thromboembolism [facility] Start: 01-27-2024 Care regimes management [facility] Start: 01-27-2024 Insertion of catheter into peripheral vein [facility] Start: 01-27-2024 Notification of physician [facility] Start: 01-27-2024 Oxygen therapy [facility] Start: 01-27-2024 Patient referral to dietitian [facility] Start: 01-27-2024 Providing care according to standard [facility] Start: 01-27-2024 Radionuclide gastric emptying study [facility] Start: 01-27-2024 [facility] Start: 01-27-2024 End: 01-27-2024 Following clinical pathway protocol [facility] Start: 01-27-2024 Verification routine [facility] Start: 01-27-2024 Admission procedure [facility] Start: 01-27-2024 Thyroid stimulating hormone measurement [facility] Start: 01-27-2024 US Gallbladder [facility] Start: 01-27-2024 US scan of gallbladder Gallbladder [facility] Start: 01-27-2024 Patient referral to dietitian [facility] Start: 01-25-2024 [facility] Start: 01-14-2024 Hemoglobin A1c measurement HbA1C [facility] Start: 12-28-2023 End: 03-28-2024 Hemoglobin A1c in Blood [facility] Work Phone: Comment on above: Expected: 12/28/2023, Expires: Start: 11-08-2023 Behavioral Health Screening Behavioral Health Screening [facility] Start: 11-08-2023 Depression Assessment Depression Assessment [facility] Start: 10-15-2023 End: 01-14-2024 ALBUMIN/CREAT RATIO RND UR [facility] Work Phone: Comment on above: Expected: 10/15/2023, Expires: Start: 10-15-2023 End: 01-14-2024 CBC W Auto Differential panel - Blood [facility] Work Phone: Comment on above: Expected: 10/15/2023, Expires: Start: 10-15-2023 End: 01-14-2024 Comprehensive metabolic 2000 panel - Serum or Plasma [facility] Work Phone: Comment on above: Expected: 10/15/2023, Expires: Start: 10-15-2023 End: 01-14-2024 Hemoglobin A1c in Blood [facility] Work Phone: Comment on above: Expected: 10/15/2023, Expires: Start: 10-15-2023 End: 01-14-2024 Hepatitis C virus Ab [Presence] in Serum [facility] Work Phone: Comment on above: Expected: 10/15/2023, Expires: Start: 10-15-2023 End: 01-14-2024 HIV 1+2 Ab [Presence] in Serum or Plasma by Immunoassay [facility] Work Phone: Comment on above: Expected: 10/15/2023, Expires: Start: 10-15-2023 End: 01-14-2024 LIPID PANEL, NONFASTING [facility] Work Phone: Comment on above: Expected: 10/15/2023, Expires: Start: 10-15-2023 End: 01-14-2024 Urinalysis complete panel - Urine [facility] Work Phone: Comment on above: Expected: 10/15/2023, Expires: Start: 07-09-2023 Covid-19 Vaccine ( season) Covid-19 Vaccine ( season) [facility] Start: 2004 Pneumococcal vaccination Pneumococcal Vaccine (1 of 2 - PCV) [facility] Start: 2003 Anxiety Screening Anxiety Screening [facility] Start: 2003 Depression Screening Depression Screening [facility] Start: 2003 Hepatitis B surface antibody level LDL Cholesterol [facility] Start: 2003 Hepatitis C Screening Hepatitis C Screening [facility] Start: 2003 HIV Screening HIV Screening [facility] Start: 1995 Glaucoma screening Dilated Retinal Exam [facility] Start: 1995 Hepatitis B screening Urine Albumin:Creatinine Ratio [facility] Start: 1995 Hepatitis C antibody, confirmatory test Dilated Retinal Exam [facility] Start: 1991 Pneumococcal vaccination [facility] Start: 1990 Hemoglobin A1c/Hemoglobin.total in Blood HbA1C [facility] Anion gap measurement [facility] BUN/Creatinine ratio [facility] Calcium [Mass/volume ] in Serum or Plasma [facility] Carbon dioxide, tota l [Moles/volume] in Serum or Plasma [facility] Chloride [Moles/volu me] in Serum or Plasma [facility] Comprehensive metabo lic 2000 panel - Serum or Plasma [facility] Creatinine [Moles/vo lume] in Serum or Plasma [facility] Erythrocyte mean corpuscular volume determination [facility] Erythrocyte mean corpuscular volume determination [facility] Glucose [Mass/volume ] in Serum or Plasma [facility] Hematocrit [Volume Fraction] of Blood [facility] Hematocrit [Volume Fraction] of Blood [facility] Hemoglobin [Mass/vol ume] in Blood [facility] Hemoglobin [Mass/vol ume] in Blood [facility] Leukocytes [#/volume ] in Blood [facility] Leukocytes [#/volume ] in Blood [facility] Lipid 1996 panel - S layne or Plasma [facility] Mean corpuscular hemoglobin concentration determination [facility] Mean corpuscular hemoglobin concentration determination [facility] Mean corpuscular hemoglobin determination [facility] Mean corpuscular hemoglobin determination [facility] Measurement of renal function [facility] Neutrophil count [facility] Neutrophil percent differential count [facility] Work Phone: Patient referral [facility] Work Phone: Platelets [#/volume] in Blood [facility] Platelets [#/volume] in Blood [facility] Potassium [Moles/vol ume] in Serum or Plasma [facility] QUANT TOX PANEL QUANT TOX PANEL Lab Routine Medication management 12/28/2024 10:58 AM EST [facility] Red blood cell count [facility] Red blood cell count [facility] Red cell distributio n width determination [facility] Red cell distributio n width determination [facility] Sodium [Moles/volume ] in Serum or Plasma [facility] SPECIMEN VALIDITY, URINE SPECIME N VALIDITY, URINE Lab Routine Medication management 12/28/2024 10:58 AM EST [facility] Thyroid stimulating hormone measurement [facility] Urea nitrogen [Mass/volume] in Serum or Plasma [facility] Urine microalbumin/creatinine ratio measurement [facility] End: 02-07-2025 US.doppler Extremity arteries - bilateral for physiologic artery study [facility] Lab Routine Diabetes 1.5, managed as type 2 (HCC) Diminished pulses in lower extremity 1 Occurrences starting 02/08/2024 until 02/07/2025 [facility] Work Phone: Comment on above: 1 Occurrences starting 02/08/2024 until 02/07/2025 Vitamin D, 25-hydrox y measurement [facility] Immunizations Immunization Date Immunization Notes Care Provider Delfina staley 08-07-2024 COVID-19 vaccine, ag e 12+ yr ([employer] [facility] [facility] Austin Camarena APRN.SHIPPING ASSOCIATE Work Phone: [facility] 10-15-2023 tetanus toxoid, redu fani diphtheria toxoid, and acellular pertussis vaccine, adsorbed Austin Camarena APRN.SHIPPING ASSOCIATE Work Phone: [facility] Payers Date Payer Category Payer Unknown [id number] 2024 Medicare (Managed Care) [id number]. [id number] 2024 Medicare [id number] 2024 Medicaid [id number] 2024 Self-pay [id number] 2021 Medicaid [id number] 2021 Unknown [id number] 2019 Medicare [id number] 2019 Medicare [id number] 1985 Unknown [id number] 2.16.8 [id number] 1985 Unknown [id number] 2.16.8 40.1.471203.3.579.2.627 1985 Unknown [id number] 2.16.8 40.1.468862.3.579.2.627 1985 Unknown [id number] 2.16.8 40.1.529301.3.579.2.627 Unknown [id number] 2.16.8 40.1.511613.3.579.2.462 Unknown [id number] 2.16.8 40.1.329043.3.579.2.462 Unknown [id number] 2.16.8 40.1.053047.3.579.2.462 Unknown [id number] 2.16.8 40.1.682021.3.579.2.462 Unknown [id number] 2.16.8 40.1.546329.3.579.2.462 Unknown [id number] 2.16.8 40.1.214512.3.579.2.462 Unknown [id number] 2.16.8 40.1.459109.3.579.2.462 Unknown [id number] 2.16.8 40.1.233510.3.579.2.462 Unknown [id number] 2.16.8 40.1.731657.3.579.2.462 Unknown [id number] 2.16.8 40.1.489044.3.579.2.462 Unknown [id number] 2.16.8 40.1.263072.3.579.2.462 Unknown [id number] 2.16.8 40.1.282562.3.579.2.462 Unknown [id number] 2.16.8 40.1.740057.3.579.2.462 Unknown [id number] 2.16.8 40.1.140305.3.579.2.462 Unknown [id number] 2.16.8 40.1.626558.3.579.2.462 Unknown [id number] 2.16.8 40.1.836924.3.579.2.462 Unknown [id number] 2.16.8 40.1.902642.3.579.2.462 Unknown [id number] 2.16.8 40.1.749599.3.579.2.462 Unknown [id number] 2.16.8 40.1.120537.3.579.2.462 Unknown [id number] 2.16.8 40.1.274449.3.579.2.462 Social History Date Type Detail Facility Start: 10-15-2023 Tobacco smoking status ORIS Smokes tobacco daily [facility] Work Phone: Start: 02-04-1999 End: 02-05-2024 History of tobacco use Cigarette Smoker [facility] Work Phone: Start: 10-15-2023 End: 10-22-2023 Cigarettes smoked current (pack per day) - Reported 1.5 [facility] Start: 10-15-2023 End: 12-28-2024 Alcohol intake Ex-drinker (finding) [facility] Start: 03-26-2021 End: 10-15-2023 Social connection and isolation panel [facility] Do you belong to any clubs or organizations such as yarsanism groups, unions, fraternal or athletic groups, or school groups? No [facility] Are you now , , , , never or living with a partner? Living with partner [facility] How often to you hav e a drink containing alcohol? Never [facility] How many standard dr inks containing alcohol do you have on a typical day? Patient refused [facility] How hard is it for y ou to pay for the very basics like food, housing, medical care, and heating Somewhat hard [facility] Do you feel stress - tense, restless, nervous, or anxious, or unable to sleep at night because your mind is troubled all the time - these days [OSQ] Very much [facility] (I/We) worried varsha er (my/our) food would run out before (I/we) got money to buy more. Often true [facility] The food that (I/we) bought just didn't last, and (I/we) didn't have money to get more. Never true [facility] At any time in the p ast 12 months, were you homeless or living in senior care [including now]? Yes [facility] Start: 03-26-2021 Education 11 [facility] Start: 1985 Sex Assigned At Male [facility] Start: 03-25-2021 Gender identity Identifies as male gender (finding) [facility] Start: 06-09-2021 Sexual orientation Heterosexual (finding) [facility] Are you now , , , , never or living with a partner? [facility] Do you feel stress - tense, restless, nervous, or anxious, or unable to sleep at night because your mind is troubled all the time - these days [OSQ] Rather much [facility] Start: 01-25-2024 End: 01-27-2024 Tobacco smoking status ORIS Unknown if ever smoked [facility] Start: 02-28-2021 None [facility] Start: 02-28-2021 Alone [facility] Start: 05-06-2020 Cigarettes [facility] Start: 02-08-2024 End: 02-06-2025 Tobacco smoking status NHIS Ex-smoker [facility] Start: 02-04-1999 End: 02-05-2024 History of tobacco use Current smoker [facility] How hard is it for y ou to pay for the very basics like food, housing, medical care, and heating Not very hard [facility] Start: 02-06-2025 Sex Male (finding) [facility] Medical Equipment Procedure Code Equipment Code Equipment Original Text Equipment Identifier Dates [id number], [id number], [id number] Start: 10-22-2023 End: 03-26-2025 Comment on above: Test blood sugar(s) 1 times daily. Dx: Type 2 DM - Uncontrolled E11.65 Insulin: No Pen Needle, Diabetic (Bd Ultra-Fine Lizzeth Pen Needle) 32 gauge x 5/32 needle Start: 01-29-2024 Pen Needle, Diabetic (Bd Ultra-Fine Lizzeth Pen Needle) 32 gauge x 5/32 needle Start: 03-29-2024 Pen Needle, Diabetic (Bd Ultra-Fine Lizzeth Pen Needle) 32 gauge x 5/32 needle Start: 01-29-2024 End: 03-29-2024 Pen Needle, Diabetic (Bd Ultra-Fine Lizzeth Pen Needle) 32 gauge x 5/32 needle Start: 03-29-2024 Pen Needle, Diabetic (Bd Ultra-Fine Lizzeth Pen Needle) 32 gauge x 5/32 needle Start: 01-29-2024 End: 03-29-2024 Pen Needle, Diabetic (Bd Ultra-Fine Lizzeth Pen Needle) 32 gauge x 5/32 needle Start: 03-29-2024 Pen Needle, Diabetic (Bd Ultra-Fine Lizzeth Pen Needle) 32 gauge x 5/32 needle Start: 01-29-2024 End: 03-29-2024 Pen Needle, Diabetic (Bd Ultra-Fine Lizzeth Pen Needle) 32 gauge x 5/32 needle Start: 03-29-2024 Pen Needle, Diabetic (Bd Ultra-Fine Lizzeth Pen Needle) 32 gauge x 5/32 needle Start: 01-29-2024 End: 03-29-2024 Pen Needle, Diabetic (Bd Ultra-Fine Lizzeth Pen Needle) 32 gauge x 5/32 needle Start: 03-29-2024 Pen Needle, Diabetic (Bd Ultra-Fine Lizzeth Pen Needle) 32 gauge x 5/32 needle Start: 01-29-2024 End: 03-29-2024 Pen Needle, Diabetic (Bd Ultra-Fine Lizzeth Pen Needle) 32 gauge x 5/32 needle Start: 03-29-2024 Pen Needle, Diabetic (Bd Ultra-Fine Lizzeth Pen Needle) 32 gauge x 5/32 needle Start: 01-29-2024 End: 03-29-2024 Goals Date Patient Goal Desired Activity /State Functional Status Date Assessment Result Facility 05-05-2024 Functional Status Independent [facility] 01-29-2024 Functional status [facility] Work Phone: 01-26-2024 Functional Status Independent [facility] 01-26-2024 Functional Status ID band on, Call device within reach, Bed in low position, Wheels locked, Upper/Half-Length side-rails up, Visitor at bedside, Safety level maintained [facility] 06-10-2015 Are you deaf, or do you have serious difficulty hearing No 06/10/2015 4:22 PM Cinthia Reynoso MA No [facility] 06-10-2015 Are you blind, or do you have serious difficulty seeing, even when wearing glasses No 06/10/2015 4:22 PM Cinthia Reynoso MA No [facility] 06-10-2015 Do you have serious difficulty walking or climbing stairs No 06/10/2015 4:22 PM Cinthia Reynoso MA No [facility] 06-10-2015 Do you have difficul ty dressing or bathing No 06/10/2015 4:22 PM Cinthia Reynoso MA No [facility] 06-10-2015 Because of a physica l, mental, or emotional condition, do you have difficulty doing errands alone such as visiting a physician's office or shopping No 06/10/2015 4:22 PM EDT Cinthia Malone MA No [facility] Mental Status Date Assessment Result Facility 02-06-2025 Cognitive function Level Of Cons ciousness Awake;Alert;Appropriate [facility] Work Phone: 05-05-2024 Mental Status Orientation Oriented x 4 [facility] 05-05-2024 Mental [facility] 01-29-2024 Cognitive function Voice/Name [facility] Work Phone: 01-26-2024 Mental Status Orientation Oriented x 4 [facility] 01-26-2024 Mental Status [facility] 06-10-2015 Because of a physica l, mental, or emotional condition, do you have serious difficulty concentrating, remembering, or making decisions No 06/10/2015 4:22 PM EDT Cinthia Malone MA [facility] Clinical Notes 10-15-2023 to 05-15-2025 Telephone Encounter - Lisseth Morel MA - 05/01/2025 2:19 PM EDTTelephone Encounter - Lisseth Morel MA - 05/01/2025 2:19 PM NEGARTAustin Camarena APRN.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 - blood sugar diagnostic (BLOOD GLUCOSE TEST) test strip Test blood sugar(s) 1 times daily. Dx: Type 2 DM - Uncontrolled E11.65 Insulin: No - lisinopril (ZESTRIL) 20 mg tablet Take 1 tablet by mouth once daily. - busPIRone (BUSPAR) 10 mg tablet Take 10 mg by mouth three times a day. - dextroamphetamine-amphetamine (ADDERALL) 10 mg tablet Take 10 mg by mouth two times a day. - rosuvastatin (CRESTOR) 5 mg tablet Take 1 tablet by mouth daily at bedtime. - ergocalciferol 50,000 unit capsule (VITAMIN D2, DRISDOL) Take 1 capsule by mouth one time a week. Use as directed. - pantoprazole DR (PROTONIX) 40 mg tablet Take 40 mg by mouth two times a day. - amitriptyline (ELAVIL) 25 mg tablet Take 25 mg by mouth daily at bedtime. - scopolamine (TRANSDERM-SCOP) patch 1.5 mg/72 hr (delivers 1 mg over 3 days) Apply 1 Patch as directed every 72 hours. - sucralfate (CARAFATE) 1 gram tablet Take 1 g by mouth four times daily. - metoclopramide HCl (REGLAN) 5 mg tablet Take 1 tablet by mouth four times daily. - insulin needles, DISPOSABLE, (PEN NEEDLE) 31 gauge x 5/16 Use as Directed for Insulin injection - Lancets Test blood sugar(s) 1 times daily. 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 Labs faxed Lisseth Morel MA [facility] 05-01-2025 Miscellaneous Notes Formattin g of this note might be different from the original. Pt notified and verbalized understanding. Labs faxed Lisseth Morel MA Please let patient know his metabolic panel shows elevated potassium and BS. I have forwarded his labs to endocrinology for review. Repeat in 1 week, increase PO fluid intake. Please print and fax labs to Dr. Hernandez at [facility] for review. documented in this encounter [facility] 05-01-2025 Telephone encount er Note Please let patient know his metabolic panel shows elevated potassium and BS. I have forwarded his labs to endocrinology for review. Repeat in 1 week, increase PO fluid intake. Please print and fax labs to Dr. Hernandez at [facility] for review. [facility] 04-30-2025 Note HNO ID: [id number] Author: AUSTIN CAMARENA APRN.CNP Service: ? Author Type: Nurse Practitioner Type: Progress Notes Filed: 04/30/2025 14:44 Note Text: Chief Complaint Patient presents with: Follow Up HPI Weston Gamez is a 39 year old male who presents here today for Above Complaints. Past medical history, appointments, medications, allergies reviewed. Previous Medical History PAST MEDICAL HISTORY Diagnosis Date ADHD (attention deficit hyperactivity disorder) Bipolar 1 disorder (HCC) DM (diabetes mellitus), type 2 (HCC) Gastroparesis 02/2024 Previous Surgical History PAST SURGICAL HISTORY Procedure Laterality Date NONE Family History FAMILY HISTORY Problem Relation Age of Onset Hypertension Father Heart Father Hypertension Mother Diabetes Mother No Ocular Disease No Family History Patient Allergies ALLERGIES No Known Allergies Current Medications Current Outpatient Medications on File Prior to Visit Medication Sig blood sugar diagnostic (BLOOD GLUCOSE TEST) test strip Test blood sugar(s) 1 times daily. Dx: Type 2 DM - Uncontrolled E11.65 Insulin: No lisinopril (ZESTRIL) 20 mg tablet Take 1 tablet by mouth once daily. busPIRone (BUSPAR) 10 mg tablet Take 10 mg by mouth three times a day. dextroamphetamine-amphetamine (ADDERALL) 10 mg tablet Take 10 mg by mouth two times a day. rosuvastatin (CRESTOR) 5 mg tablet Take 1 tablet by mouth daily at bedtime. gabapentin (NEURONTIN) 100 mg capsule Take 2 capsules by mouth three times a day for 90 days. ergocalciferol 50,000 unit capsule (VITAMIN D2, DRISDOL) Take 1 capsule by mouth one time a week. Use as directed. pantoprazole DR (PROTONIX) 40 mg tablet Take 40 mg by mouth two times a day. amitriptyline (ELAVIL) 25 mg tablet Take 25 mg by mouth daily at bedtime. scopolamine (TRANSDERM-SCOP) patch 1.5 mg/72 hr (delivers 1 mg over 3 days) Apply 1 Patch as directed every 72 hours. sucralfate (CARAFATE) 1 gram tablet Take 1 g by mouth four times daily. metoclopramide HCl (REGLAN) 5 mg tablet Take 1 tablet by mouth four times daily. insulin needles, DISPOSABLE, (PEN NEEDLE) 31 gauge x 5/16 Use as Directed for Insulin injection Lancets Test blood sugar(s) 1 times daily. Dx: Type 2 DM - Uncontrolled E11.65 Insulin: No No current facility-administered medications on file prior to visit. Social History Social History Tobacco Use Smoking status: Former Current packs/day: 0.00 Average packs/day: 1.5 packs/day for 25.0 years (37.5 ttl pk-yrs) Types: Cigarettes Start date: 02/04/1999 Quit date: 02/05/2024 Years since quittin.2 Vaping Use Vaping status: Never Used Substance Use Topics Alcohol use: Not Currently Drug use: Not Currently Frequency: 3.0 times per week Types: Marijuana Comment: smokes and uses edibles Review of Symptoms REVIEW OF SYSTEMS SEE HPI EXAM: BP 115/79 Pulse 109 Wt 72 kg (158 lb 11.7 oz) General Appearance: Well appearing, alert, in no acute distress, well-hydrated, well nourished. Lungs: Lungs clear to auscultation. No wheezing, rhonchi, rales.. Heart: RRR without murmur, gallop, or rubs. No ectopy. Health Maintenance List Depression Screening Never done Anxiety Screening Never done Pneumococcal Vaccine(1 of 2 - PCV) Never done Urine Albumin:Creatinine Ratio due on 10/15/2024 Medicare Advantage Annual Wellness Visit Never done Diabetic Foot Exam due on 02/07/2025 HbA1C due on 04/04/2025 Influenza Vaccine(Season Ended) due on 07/09/2025 Dilated Retinal Exam due on 10/27/2025 LDL Cholesterol due on 11/20/2025 Annual PCP Team Chronic Disease Visit due on 01/25/2026 DTaP,Tdap,Td Vaccine(2 - Td or Tdap) due on 10/15/2033 Hepatitis C Screening Completed HIV Screening Completed Covid-19 Vaccine Completed Hepatitis B Vaccine Discontinued ASSESSMENT/PLAN: 1. Dental infection - ICD9: 522.4, ICD10: K04.7 (primary diagnosis) - AMOXICILLIN 875 MG TABLET 2. Screening for depression - ICD9: V79.0, ICD10: Z13.31 - DEPRESSION SCREENING 3. Encounter for screening examination for other mental health and behavioral disorders - ICD9: V79.8, ICD10: Z13.39 - ANXIETY SCREENING 4. Medication management - ICD9: V58.69, ICD10: Z79.899 - COMPREHENSIVE METABOLIC PANEL 5. Elevated LDL cholesterol level - ICD9: 272.0, ICD10: E78.00 - LIPID PANEL, NONFASTING 6. Diabetes 1.5, managed as type 2 (HCC) - ICD9: 250.00, ICD10: E13.9 - Uncontrolled -Follow up with Dr. Hernandez in 2 weeks as scheduled - ALBUMIN/CREATININE RATIO, URINE Austin Camarena APRN.[facility] 04-30-2025 History of Presen t illness Narrative Chief Complaint Patient presents with: Follow Up HPI Weston Gamez is a 39 year old male who presents here today for Above Complaints. Past medical history, appointments, medications, allergies reviewed. Previous Medical History PAST MEDICAL HISTORY Diagnosis Date ADHD (attention deficit hyperactivity disorder) Bipolar 1 disorder (HCC) DM (diabetes mellitus), type 2 (HCC) Gastroparesis 02/2024 Previous Surgical History PAST SURGICAL HISTORY Procedure Laterality Date NONE Family History FAMILY HISTORY Problem Relation Age of Onset Hypertension Father Heart Father Hypertension Mother Diabetes Mother No Ocular Disease No Family History Patient Allergies ALLERGIES No Known Allergies Current Medications Current Outpatient Medications on File Prior to Visit Medication Sig blood sugar diagnostic (BLOOD GLUCOSE TEST) test strip Test blood sugar(s) 1 times daily. Dx: Type 2 DM - Uncontrolled E11.65 Insulin: No lisinopril (ZESTRIL) 20 mg tablet Take 1 tablet by mouth once daily. busPIRone (BUSPAR) 10 mg tablet Take 10 mg by mouth three times a day. dextroamphetamine-amphetamine (ADDERALL) 10 mg tablet Take 10 mg by mouth two times a day. rosuvastatin (CRESTOR) 5 mg tablet Take 1 tablet by mouth daily at bedtime. gabapentin (NEURONTIN) 100 mg capsule Take 2 capsules by mouth three times a day for 90 days. ergocalciferol 50,000 unit capsule (VITAMIN D2, DRISDOL) Take 1 capsule by mouth one time a week. Use as directed. pantoprazole DR (PROTONIX) 40 mg tablet Take 40 mg by mouth two times a day. amitriptyline (ELAVIL) 25 mg tablet Take 25 mg by mouth daily at bedtime. scopolamine (TRANSDERM-SCOP) patch 1.5 mg/72 hr (delivers 1 mg over 3 days) Apply 1 Patch as directed every 72 hours. sucralfate (CARAFATE) 1 gram tablet Take 1 g by mouth four times daily. metoclopramide HCl (REGLAN) 5 mg tablet Take 1 tablet by mouth four times daily. insulin needles, DISPOSABLE, (PEN NEEDLE) 31 gauge x 5/16 Use as Directed for Insulin injection Lancets Test blood sugar(s) 1 times daily. Dx: Type 2 DM - Uncontrolled E11.65 Insulin: No No current facility-administered medications on file prior to visit. Social History Social History Tobacco Use Smoking status: Former Current packs/day: 0.00 Average packs/day: 1.5 packs/day for 25.0 years (37.5 ttl pk-yrs) Types: Cigarettes Start date: 02/04/1999 Quit date: 02/05/2024 Years since quittin.2 Vaping Use Vaping status: Never Used Substance Use Topics Alcohol use: Not Currently Drug use: Not Currently Frequency: 3.0 times per week Types: Marijuana Comment: smokes and uses edibles Review of Symptoms REVIEW OF SYSTEMS SEE HPI EXAM: BP 115/79 Pulse 109 Wt 72 kg (158 lb 11.7 oz) General Appearance: Well appearing, alert, in no acute distress, well-hydrated, well nourished. Lungs: Lungs clear to auscultation. No wheezing, rhonchi, rales.. Heart: RRR without murmur, gallop, or rubs. No ectopy. Health Maintenance List Depression Screening Never done Anxiety Screening Never done Pneumococcal Vaccine(1 of 2 - PCV) Never done Urine Albumin:Creatinine Ratio due on 10/15/2024 Medicare Advantage Annual Wellness Visit Never done Diabetic Foot Exam due on 02/07/2025 HbA1C due on 04/04/2025 Influenza Vaccine(Season Ended) due on 07/09/2025 Dilated Retinal Exam due on 10/27/2025 LDL Cholesterol due on 11/20/2025 Annual PCP Team Chronic Disease Visit due on 01/25/2026 DTaP,Tdap,Td Vaccine(2 - Td or Tdap) due on 10/15/2033 Hepatitis C Screening Completed HIV Screening Completed Covid-19 Vaccine Completed Hepatitis B Vaccine Discontinued ASSESSMENT/PLAN: 1. Dental infection - ICD9: 522.4, ICD10: K04.7 (primary diagnosis) - AMOXICILLIN 875 MG TABLET 2. Screening for depression - ICD9: V79.0, ICD10: Z13.31 - DEPRESSION SCREENING 3. Encounter for screening examination for other mental health and behavioral disorders - ICD9: V79.8, ICD10: Z13.39 - ANXIETY SCREENING 4. Medication management - ICD9: V58.69, ICD10: Z79.899 - COMPREHENSIVE METABOLIC PANEL 5. Elevated LDL cholesterol level - ICD9: 272.0, ICD10: E78.00 - LIPID PANEL, NONFASTING 6. Diabetes 1.5, managed as type 2 (HCC) - ICD9: 250.00, ICD10: E13.9 - Uncontrolled -Follow up with Dr. Hernandez in 2 weeks as scheduled - ALBUMIN/CREATININE RATIO, URINE Austin Camarena APRN.[employer] documented in this encounter [facility] 04-25-2025 History of Presen t illness Narrative Primary Care Pharmacy Panel Management This patient has been identified through Specialty Integration/[employer] Diabetes Registry Review by the primary care pharmacy team. After review, determined that the patient is not a candidate for pharmacy referral at this time due to Type 1 or pump patient. (External fill hx indicates he uses Omnipod insulin pump) Rufus Brower RPh documented in this encounter [facility] 04-25-2025 Note HNO ID: [id number] Author: RUFUS BROWER RPh Service: ? Author Type: Pharmacist Type: Progress Notes Filed: 04/25/2025 14:50 Note Text: Primary Care Pharmacy Panel Management This patient has been identified through Specialty Integration/[employer] Diabetes Registry Review by the primary care pharmacy team. After review, determined that the patient is not a candidate for pharmacy referral at this time due to Type 1 or pump patient. (External fill hx indicates he uses Omnipod insulin pump) Rufus Brower RPh [facility] 04-25-2025 Note Patient Outreach (PH MEWO) WESTON GAMEZ ([id number]) 1985 [facility] Date Time Provider Department 04/25/25 RUFUS BROWER MEWO During your visit today, we recorded the following information about you: Rufus Brower RPh 04/25/2025 2:50 PM Signed Primary Care Pharmacy Panel Management This patient has been identified through Specialty Integration/[employer]-Based [employer] Diabetes Registry Review by the primary care pharmacy team. After review, determined that the patient is not a candidate for pharmacy referral at this time due to Type 1 or pump patient. (External fill hx indicates he uses Omnipod insulin pump) Rufus Brower [facility] Allergies As of Date: 04/25/2025 (No Known Allergies) Date Reviewed: 01/25/2025 Reviewed by: Litzy Casillas LPN - Fully Assessed Prescriptions as of 04/25/2025 - blood sugar diagnostic (BLOOD GLUCOSE TEST) test strip Test blood sugar(s) 1 times daily. Dx: Type 2 DM - Uncontrolled E11.65 Insulin: No - lisinopril (ZESTRIL) 20 mg tablet Take 1 tablet by mouth once daily. - busPIRone (BUSPAR) 10 mg tablet Take 10 mg by mouth three times a day. - dextroamphetamine-amphetamine (ADDERALL) 10 mg tablet Take 10 mg by mouth two times a day. - rosuvastatin (CRESTOR) 5 mg tablet Take 1 tablet by mouth daily at bedtime. - gabapentin (NEURONTIN) 100 mg capsule Take 2 capsules by mouth three times a day for 90 days. - ergocalciferol 50,000 unit capsule (VITAMIN D2, DRISDOL) Take 1 capsule by mouth one time a week. Use as directed. - pantoprazole DR (PROTONIX) 40 mg tablet Take 40 mg by mouth two times a day. - amitriptyline (ELAVIL) 25 mg tablet Take 25 mg by mouth daily at bedtime. - scopolamine (TRANSDERM-SCOP) patch 1.5 mg/72 hr (delivers 1 mg over 3 days) Apply 1 Patch as directed every 72 hours. - sucralfate (CARAFATE) 1 gram tablet Take 1 g by mouth four times daily. - metoclopramide HCl (REGLAN) 5 mg tablet Take 1 tablet by mouth four times daily. - insulin needles, DISPOSABLE, (PEN NEEDLE) 31 gauge x 5/16 Use as Directed for Insulin injection - Lancets Test blood sugar(s) 1 times daily. 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] 06/09/2021 Diagnosed: 10/15/2023 Encounter Status:Closed by RUFUS BROWER on 04/25/25 [facility] 04-19-2025 Evaluation note Diagnosis Onset Date Resolution High cholesterol chronic April 1:07pm Hypertension chronic April 19, 2 025 1:07pm Insulin pump titration chronic 2024 1:07pm Presence of insulin pump chronic April 19, 2025 1:07pm Type 1 diabetes chronic April 1:07pm Bipolar disorder chronic April 8:44am Hypertension chronic May 03, 025 8:44am Presence of insulin pump chronic May 03, 2025 8:44am Type 1 diabetes chronic April 8:44am Gastroparesis acute May 17, 2025 2:45pm GERD (gastroesophageal reflux disease) acute May 17, 2025 2:45pm H. pylori infection acute May 17, 2025 2:45pm [facility] Work Phone: 1(171) 335-317405-19-2025 Telephone encounter Note* Telephone Encounter - Sudheer Anna LPN - 03/26/2025 7:09 PM EDT Prescription Refill Information The patient has been identified by name and date of : Yes Caregiver verified no other encounters exist for this prescription request: Yes Caregiver confirmed with patient/requestor that no other refills are due, in the near future, with this provider at this time: Yes The last office visit in the department: 01/25/25 Does the patient have a future office visit with this provider/department: Yes, 04/30/25 Requested Prescriptions Pending Prescriptions Disp Refills blood sugar diagnostic (BLOOD GLUCOSE TEST) test strip 50 strip 11 Sig: Test blood sugar(s) 1 times daily. Dx: Type 2 DM - Uncontrolled E11.65 Insulin: No Sudheer Anna LPN March 26, 2025 7:09 PM [facility]05-19-2025 Miscellaneous Notes* Telephone Encounter - Sudheer Anna LPN - 03/26/2025 7:09 PM EDT Prescription Refill Information The patient has been identified by name and date of : Yes Caregiver verified no other encounters exist for this prescription request: Yes Caregiver confirmed with patient/requestor that no other refills are due, in the near future, with this provider at this time: Yes The last office visit in the department: 01/25/25 Does the patient have a future office visit with this provider/department: Yes, 04/30/25 Requested Prescriptions Pending Prescriptions Disp Refills blood sugar diagnostic (BLOOD GLUCOSE TEST) test strip 50 strip 11 Sig: Test blood sugar(s) 1 times daily. Dx: Type 2 DM - Uncontrolled E11.65 Insulin: No Sudheer Anna LPN March 26, 2025 7:09 PM [facility] Telephone encounter Note * Telephone Encounter - Leticia Greenwood LPN - 03/06/2025 8:18 AM EDT Prescription Refill Information The patient has been identified by name and date of : Yes Caregiver verified no other encounters exist for this prescription request: Yes Caregiver confirmed with patient/requestor that no other refills are due, in the near future, with this provider at this time: Yes The last office visit in the department: 01/25/2025 Does the patient have a future office visit with this provider/department: Yes Requested Prescriptions Pending Prescriptions Disp Refills lisinopril (ZESTRIL) 20 mg tablet 90 tablet 1 Sig: Take 1 tablet by mouth once daily. Refused Prescriptions Disp Refills rosuvastatin (CRESTOR) 5 mg tablet 90 tablet 1 Sig: Take 1 tablet by mouth daily at bedtime. Leticia Greenwood LPN March 06, 2025 8:20 AM [facility]04-29-2025 Miscellaneous Notes* Telephone Encounter - Leticia Greenwood LPN - 03/06/2025 8:18 AM EDT Prescription Refill Information The patient has been identified by name and date of : Yes Caregiver verified no other encounters exist for this prescription request: Yes Caregiver confirmed with patient/requestor that no other refills are due, in the near future, with this provider at this time: Yes The last office visit in the department: 01/25/2025 Does the patient have a future office visit with this provider/department: Yes Requested Prescriptions Pending Prescriptions Disp Refills lisinopril (ZESTRIL) 20 mg tablet 90 tablet 1 Sig: Take 1 tablet by mouth once daily. Refused Prescriptions Disp Refills rosuvastatin (CRESTOR) 5 mg tablet 90 tablet 1 Sig: Take 1 tablet by mouth daily at bedtime. Leticia Greenwood LPN March 06, 2025 8:20 AM [facility] Discharge summary [facility] Medical Records Department [address] [place] [address] Emergency Department Summary 02/06/25 MR#: [id number] Acct: [id number] Name: WESTON GAMEZ Rep #:[id number] : 1985 39 From: Ludin Sanderson MD PCP: Austin Camarena [employer]BURET[employer] REBUILDER-C Status:PRE ER Location: ED HPI History of Present Illness Chief Complaint: Other, Pain/Inj Narrative Narrative: 39-year-old male past medical history of diabetes presents with left-sided cheek/facial swelling and left-sided jaw pain that he has had for the last 2 days. He states that he has been to the dentistpreviously and they were supposed to extract 2 of his teeth in his left lower jaw but have not doneso. He tried to call them wanting antibiotics for the swelling that he noticed 2 days ago, but no one has called him back. He might of felt feverish a few days ago, but complains of swelling of his left cheek and pain in his left lower jaw. No difficulty breathing, no difficulty swallowing currently. This is never happened to him before/previously. He quit smoking cigarettes about a month ago. [facility] Medical History Gastroparesis Former tobacco use Cannabis use disorder Hypertension Schizophrenia Anxiety Depression Migraines Type 2 diabetes mellitus with hyperglycemia Schizo-affective schizophrenia Bipolar 1 disorder Diabetes mellitus Home Medications ?Medication ?Instructions ?Recorded ?Last Taken ?Type pen needle, diabetic 32 gauge x #100 ea 03/29/24 Unkno wn Rx (BD Ultra-Fine Lizzeth Pen Needle) lisinopril 20 mg tablet 20 mg PO DAILY bp #30 tabs 0 05/01/24 Unknown Rx gabapentin 100 mg capsule 200 mg PO TID pain 06/06/24 Unknown History insulin pump cartridge,automated #1 ea 07/05/24 Unknow n Rx dose,BT with controller subcutaneous (Omnipod 5 G6 Intro Kit (Gen 5) subcutaneous cartridge with controller) pantoprazole 40 mg tablet,delayed 40 mg PO BID #60 tab s 08/15/24 Unknown Rx release blood-glucose sensor (Dexcom G7 #3 ea 11/22/24 Unknown Rx Sensor device) insulin lispro 100 unit/mL 50 unit (0.5 mL) continuous 11/22/24 Unknown Rx subcutaneous solution (Humalog subcutaneous infusion . continuous U-100 Insulin) #45 mL metoclopramide HCl 5 mg tablet 5 mg PO Q8H PRN PRN kevyn sea and 12/06/24 Unknown Rx (Reglan) vomiting #90 tabs amitriptyline 25 mg tablet 25 mg PO QHS #30 tabs 01/17 Unknown Rx insulin pump cart,auto,BT,G6/7 #10 ea 01/17/25 Unknown Rx (Omnipod 5 G6-G7 Pods (Gen 5) subcutaneous cartridge) buspirone 10 mg tablet 10 mg PO BID 01/18/25 Unknow n History dextroamphetamine-amphetamine 5 mg 1 tab PO BID Unknown History tablet rosuvastatin 5 mg tablet 5 mg PO QHS 01/18/25 Unknown History ziprasidone HCl 40 mg capsule 40 mg PO BID 01/18/25 Un known History sucralfate 1 gram tablet 1 g PO Q6 #120 TABLETS 01/31 Unknown Rx dicyclomine 10 mg capsule 10 mg PO TID for abdominal p ain 02/02/25 Unknown Rx #90 caps clindamycin HCl 300 mg capsule 300 mg PO Q6H #40 CAPSU LES 02/06/25 Unknown Rx (Cleocin HCl) Allergy/AdvReac Type Severity Reaction Status Date / Time No Known Allergies Allergy Verified 02/06/25 17:11 Family History Mother Diabetes Sister Diabetes Father CVA (cerebral vascular accident) Myocardial infarction Surgical History H/O esophagogastroduodenoscopy No history of previous surgery Social History household members: spouse Smoking Status: Former smoker pack-years: 10 how long ago did patient quit smoking: Quit 05/2024, prior smoked ~ 1/2 ppd. second hand exposure: No alcohol intake: former substance use type: marijuana ROS ROS ED ROS Narrative Review of systems positive for subjective fever 2 days ago, left cheek swelling/facial swelling, and left jaw pain secondary to dental caries. No difficulty swallowing, no difficulty breathing. No exacerbating or alleviating factors. EXAM Physical Exam Narrative Exam Narrative: Afebrile. Vital signs noted. Nontoxic-appearing. Cardiovascular examination reveals a regular rate and rhythm. Lungs are clear to auscultation bilaterally. Abdomen soft and nontender. Dental inspection does show dental caries eroded down to the gumline of the bottom left first and second molars. Nodrooling or trismus. No angioedema of the tongue. No Wilbert angina. Airway is patent. Nodrooling ortrismus. There is induration of the left cheek more in the lower jaw portion, but no noted fluctuance. Const Vital Signs: 02/06/25 17:10 Temperature 98.3 F Temperature Source Oral Pulse Rate 94 Respiratory Rate 16 Blood Pressure 167/99 H Blood Pressure Mean 121 Pulse Ox 100 Oxygen Delivery Method Room Air MDM MDM MDM Narrative Medical decision making narrative: Differential diagnosis includes but not limited to dental abscess with facial cellulitis and swelling versus Wilbert angina versus retropharyngeal abscess. I have very low suspicion for the latter 2 diagnoses based on his clinical examination. I do not feel laboratory work or imaging is indicated currently. Pulse ox is 100% on room air without evidence of hypoxia and there is no stridoron examination so I do not feel that there is any airway compromise. Continuation of smoking cessation was discussed. He was given his first dose ofclindamycin here in the emergency department and prescription written for 300 mgto take 4 times a day for the next 10 days. He will follow-up with a dentist. He will continue [id number] analgesics. Return instructions to the emergency department were reviewed. Disposition is discharged home in stable condition. Discharge Plan Triage Chief Complaint: Other, Pain/Inj ED Provider: Ludin Sanderson Dx/Rx/DC Orders Clinical Impression: Dental abscess, Left facial swelling Instructions: ED Dental Abscess, ED Dental Abscess Facial Cellulitis Prescriptions: New clindamycin HCl [Cleocin HCl] 300 mg capsule 300 mg PO Q6H Qty: 40 0RF No Action gabapentin 100 mg capsule 200 mg PO TID (DME) Omnipod 5 G6 Intro Kit (Gen 5) Cartridge See Rx Instructions .Route Qty: 1 0RF Rx Instructions: As directed insulin lispro [Humalog U-100 Insulin] 100 unit/mL solution 50 unit continuous subcutaneous infusion .continuous Qty: 45 1RF Rx Instructions: Use subcutaneous insulin as you had been previously less otherwise instructed (DME) Dexcom G7 Sensor Device See Rx Instructions .Route Qty: 3 5RF Rx Instructions: 1 sensor q 10 days pantoprazole 40 mg tablet,delayed release (DR/EC) 40 mg PO BID Qty: 60 2RF buspirone 10 mg tablet 10 mg PO BID ziprasidone HCl 40 mg capsule 40 mg PO BID dextroamphetamine-amphetamine 5 mg tablet 1 tab PO BID rosuvastatin 5 mg tablet 5 mg PO QHS (DME) pen needle, diabetic [BD Ultra-Fine Lizzeth Pen Needle] 32 gauge x 5/32 needle See Rx Instructions .Route Qty: 100 5RF Rx Instructions: 4x/day lisinopril 20 mg tablet 20 mg PO DAILY Qty: 30 6RF metoclopramide HCl [Reglan] 5 mg tablet 5 mg PO Q8H PRN PRN (Reason: nausea and vomiting) Qty: 90 2RF (DME) Omnipod 5 G6-G7 Pods (Gen 5) Cartridge See Rx Instructions .Route Qty: 10 5RF Rx Instructions: 1 pod q 3 days amitriptyline 25 mg tablet 25 mg PO QHS Qty: 30 2RF sucralfate 1 gram tablet 1 g PO Q6 Qty: 120 0RF dicyclomine 10 mg capsule 10 mg PO TID Qty: 90 0RF Primary Care Provider: Austin Camarena Referrals: Austin Camarena NP-C [Primary Care Provider] - Activity Restrictions/Additional Instructions: Continue to not smoke cigarettes. Follow-up with a dentist as soon as possible. Take the antibiotics as directed. Return with difficulty swallowing or breathing, sustained high fever, new or worsening symptoms. Print Language: Bangladeshi Disposition Disposition: Home, Self Care What to do if you have Problems For any increased pain, shortness of breath, bleeding, nausea or vomiting, chestpain, or any unexpected problems, contact your Primary Care Provider. Call [facility] ([phone]) or report tothe closest Emergency Room. Call 911 if necessary. 02/06/25 1822 Cosigner Signature (if applicable): CC: CARBURETOR REBUILDER-Joanna Camarena ~ Signed [facility]04-01-2025 Discharge summary Author Ludin Sanderson [facility] Note Date/Time February 06, 2025 6:22 pm [facility] Medical Records Department [address] [place] [address] Emergency Department Summary 02/06/25 MR#: [id number] Acct: [id number] Name: WESTON GAMEZ Rep #:[id number] : 1985 39 From: Ludin Sanderson MD PCP: JIE Geller Status:PRE ER Location: ED HPI History of Present Illness Chief Complaint: Other, Pain/Inj Narrative Narrative: 39-year-old male past medical history of diabetes presents with left-sided cheek/facial swelling and left-sided jaw pain that he has had for the last 2 days. He states that he has been to the dentist previously and they were supposed to extract 2 of his teeth in his left lower jaw but have not done so. He tried to call them wanting antibiotics for the swelling that he noticed 2 days ago, but no one has called him back. He might of felt feverish a few days ago, but complains of swelling of his left cheek and pain in his left lower jaw. No difficulty breathing, no difficulty swallowing currently. This is never happened to him before/previously. He quit smoking cigarettes about a month ago. [facility] Medical History Gastroparesis Former tobacco use Cannabis use disorder Hypertension Schizophrenia Anxiety Depression Migraines Type 2 diabetes mellitus with hyperglycemia Schizo-affective schizophrenia Bipolar 1 disorder Diabetes mellitus Home Medications ?Medication ?Instructions ?Recorded ?Last Taken ?Type pen needle, diabetic 32 gauge x #100 ea 03/29/24 Unkno wn Rx (BD Ultra-Fine Lizzeth Pen Needle) lisinopril 20 mg tablet 20 mg PO DAILY bp #30 tabs 0 05/01/24 Unknown Rx gabapentin 100 mg capsule 200 mg PO TID pain 06/06/24 Unknown History insulin pump cartridge,automated #1 ea 07/05/24 Unknow n Rx dose,BT with controller subcutaneous (Omnipod 5 G6 Intro Kit (Gen 5) subcutaneous cartridge with controller) pantoprazole 40 mg tablet,delayed 40 mg PO BID #60 tab s 08/15/24 Unknown Rx release blood-glucose sensor (Dexcom G7 #3 ea 11/22/24 Unknown Rx Sensor device) insulin lispro 100 unit/mL 50 unit (0.5 mL) continuous 11/22/24 Unknown Rx subcutaneous solution (Humalog subcutaneous infusion . continuous U-100 Insulin) #45 mL metoclopramide HCl 5 mg tablet 5 mg PO Q8H PRN PRN kevyn sea and 12/06/24 Unknown Rx (Reglan) vomiting #90 tabs amitriptyline 25 mg tablet 25 mg PO QHS #30 tabs 01/17 Unknown Rx insulin pump cart,auto,BT,G6/7 #10 ea 01/17/25 Unknown Rx (Omnipod 5 G6-G7 Pods (Gen 5) subcutaneous cartridge) buspirone 10 mg tablet 10 mg PO BID 01/18/25 Unknow n History dextroamphetamine-amphetamine 5 mg 1 tab PO BID Unknown History tablet rosuvastatin 5 mg tablet 5 mg PO QHS 01/18/25 Unknown History ziprasidone HCl 40 mg capsule 40 mg PO BID 01/18/25 Un known History sucralfate 1 gram tablet 1 g PO Q6 #120 TABLETS 01/31 Unknown Rx dicyclomine 10 mg capsule 10 mg PO TID for abdominal p ain 02/02/25 Unknown Rx #90 caps clindamycin HCl 300 mg capsule 300 mg PO Q6H #40 CAPSU LES 02/06/25 Unknown Rx (Cleocin HCl) Allergy/AdvReac Type Severity Reaction Status Date / Time No Known Allergies Allergy Verified 02/06/25 17:11 Family History Mother Diabetes Sister Diabetes Father CVA (cerebral vascular accident) Myocardial infarction Surgical History H/O esophagogastroduodenoscopy No history of previous surgery Social History household members: spouse Smoking Status: Former smoker pack-years: 10 how long ago did patient quit smoking: Quit 05/2024, prior smoked ~ 1/2 ppd. second hand exposure: No alcohol intake: former substance use type: marijuana ROS ROS ED ROS Narrative Review of systems positive for subjective fever 2 days ago, left cheek swelling/facial swelling, and left jaw pain secondary to dental caries. No difficulty swallowing, no difficulty breathing. No exacerbating or alleviating factors. EXAM Physical Exam Narrative Exam Narrative: Afebrile. Vital signs noted. Nontoxic-appearing. Cardiovascular examination reveals a regular rate and rhythm. Lungs are clear to auscultation bilaterally. Abdomen soft and nontender. Dental inspection does show dental caries eroded down to the gumline of the bottom left first and second molars. No drooling or trismus. No angioedema of the tongue. No Wilbert angina. Airway is patent. Nodrooling or trismus. There is induration of the left cheek more in the lower jaw portion, but no noted fluctuance. Const Vital Signs: 02/06/25 17:10 Temperature 98.3 F Temperature Source Oral Pulse Rate 94 Respiratory Rate 16 Blood Pressure 167/99 H Blood Pressure Mean 121 Pulse Ox 100 Oxygen Delivery Method Room Air MDM MDM MDM Narrative Medical decision making narrative: Differential diagnosis includes but not limited to dental abscess with facial cellulitis and swelling versus Wilbert angina versus retropharyngeal abscess. I have very low suspicion for the latter 2 diagnoses based on his clinical examination. I do not feel laboratory work or imaging is indicated currently. Pulse ox is 100% on room air without evidence of hypoxia and there is no stridoron examination so I do not feel that there is any airway compromise. Continuation of smoking cessation was discussed. He was given his first dose ofclindamycin here in the emergency department and prescription written for 300 mgto take 4 times a day for the next 10 days. He will follow-up with a dentist. He will continue [id number] analgesics. Return instructions to the emergency department were reviewed. Disposition is discharged home in stable condition. Discharge Plan Triage Chief Complaint: Other, Pain/Inj ED Provider: Ludin Sanderson Dx/Rx/DC Orders Clinical Impression: Dental abscess, Left facial swelling Instructions: ED Dental Abscess, ED Dental Abscess Facial Cellulitis Prescriptions: New clindamycin HCl [Cleocin HCl] 300 mg capsule 300 mg PO Q6H Qty: 40 0RF No Action gabapentin 100 mg capsule 200 mg PO TID (DME) Omnipod 5 G6 Intro Kit (Gen 5) Cartridge See Rx Instructions .Route Qty: 1 0RF Rx Instructions: As directed insulin lispro [Humalog U-100 Insulin] 100 unit/mL solution 50 unit continuous subcutaneous infusion .continuous Qty: 45 1RF Rx Instructions: Use subcutaneous insulin as you had been previously less otherwise instructed (DME) Dexcom G7 Sensor Device See Rx Instructions .Route Qty: 3 5RF Rx Instructions: 1 sensor q 10 days pantoprazole 40 mg tablet,delayed release (DR/EC) 40 mg PO BID Qty: 60 2RF buspirone 10 mg tablet 10 mg PO BID ziprasidone HCl 40 mg capsule 40 mg PO BID dextroamphetamine-amphetamine 5 mg tablet 1 tab PO BID rosuvastatin 5 mg tablet 5 mg PO QHS (DME) pen needle, diabetic [BD Ultra-Fine Lizzeth Pen Needle] 32 gauge x 5/32 needle See Rx Instructions .Route Qty: 100 5RF Rx Instructions: 4x/day lisinopril 20 mg tablet 20 mg PO DAILY Qty: 30 6RF metoclopramide HCl [Reglan] 5 mg tablet 5 mg PO Q8H PRN PRN (Reason: nausea and vomiting) Qty: 90 2RF (DME) Omnipod 5 G6-G7 Pods (Gen 5) Cartridge See Rx Instructions .Route Qty: 10 5RF Rx Instructions: 1 pod q 3 days amitriptyline 25 mg tablet 25 mg PO QHS Qty: 30 2RF sucralfate 1 gram tablet 1 g PO Q6 Qty: 120 0RF dicyclomine 10 mg capsule 10 mg PO TID Qty: 90 0RF Primary Care Provider: Austin Camarena Referrals: Austin Camarena NP-C [Primary Care Provider] - Activity Restrictions/Additional Instructions: Continue to not smoke cigarettes. Follow-up with a dentist as soon as possible. Take the antibiotics as directed. Return with difficulty swallowing or breathing, sustained high fever, new or worsening symptoms. Print Language: Bangladeshi Disposition Disposition: Home, Self Care What to do if you have Problems For any increased pain, shortness of breath, bleeding, nausea or vomiting, chestpain, or any unexpected problems, contact your Primary Care Provider. Call [facility] ([phone]) or report to the closest Emergency Room. Call 911 if necessary. 02/06/25 1822 <Electronically signed by Ludin Sanderson MD> Cosigner Signature (if applicable): CC: JIE Camarena ~ Signed [facility] Work Phone: 1(870) 360-657103-21-2025 Telephone encounter Note* Telephone Encounter - Elba Darnell MA - 01/26/2025 1:47 PM EDT Please see message from pt. I pended meter kit. Elba Darnell MA [facility]03-21-2025 Miscellaneous Notes* Telephone Encounter - Elba Darnell MA - 01/26/2025 1:47 PM EDT Please see message from pt. I pended meter kit. Elba Darnell MA [facility]25 NoteHNO ID: [id number] Author: AUSTIN CAMARENA APRN.SHIPPING ASSOCIATE Service: ? Author Type: Nurse Practitioner Type: Progress Notes Filed: 01/25/2025 15:59 Note Text: Chief Complaint Patient presents with: Medication Follow-up HPI Weston Gamez is a 39 year old male who presents here today for Above Complaints.. Patient presents for medication follow up. Patient reports he stopped strattera and is seeing psych who placed him on buspar, adderall. Patient seeing psych in [place] at [facility]. Past medical history, appointments, medications, allergies reviewed. Previous Medical History PAST MEDICAL HISTORY Diagnosis Date ADHD (attention deficit hyperactivity disorder) Bipolar 1 disorder (HCC) DM (diabetes mellitus), type 2 (HCC) Gastroparesis 02/2024 Previous Surgical History PAST SURGICAL HISTORY Procedure Laterality Date NONE Family History FAMILY HISTORY Problem Relation Age of Onset Hypertension Father Heart Father Hypertension Mother Diabetes Mother No Ocular Disease No Family History Patient Allergies ALLERGIES No Known Allergies Current Medications Current Outpatient Medications on File Prior to Visit Medication Sig rosuvastatin (CRESTOR) 5 mg tablet Take 1 tablet by mouth daily at bedtime. gabapentin (NEURONTIN) 100 mg capsule Take 2 capsules by mouth three times a day for 90 days. ergocalciferol 50,000 unit capsule (VITAMIN D2, DRISDOL) Take 1 capsule by mouth one time a week. Use as directed. atomoxetine (STRATTERA) 40 mg capsule Take 1 capsule by mouth once daily. lisinopril (ZESTRIL) 20 mg tablet Take 1 tablet by mouth once daily. pantoprazole DR (PROTONIX) 40 mg tablet Take 40 mg by mouth two times a day. amitriptyline (ELAVIL) 25 mg tablet Take 25 mg by mouth daily at bedtime. scopolamine (TRANSDERM-SCOP) patch 1.5 mg/72 hr (delivers 1 mg over 3 days) Apply 1 Patch as directed every 72 hours. sucralfate (CARAFATE) 1 gram tablet Take 1 g by mouth four times daily. LANTUS SOLOSTAR U-100 INSULIN 100 unit/mL (3 mL) Inject 12 Units subcutaneously daily at bedtime. insulin lispro 100 unit/mL injection Inject 6 Units subcutaneously three times a day before meals. 3 units with snacks metoclopramide HCl (REGLAN) 5 mg tablet Take 1 tablet by mouth four times daily. insulin needles, DISPOSABLE, (PEN NEEDLE) 31 gauge x 5/16 Use as Directed for Insulin injection blood sugar diagnostic (BLOOD GLUCOSE TEST) test strip Test blood sugar(s) 1 times daily. Dx: Type 2 DM - Uncontrolled E11.65 Insulin: No Lancets Test blood sugar(s) 1 times daily. Dx: Type 2 DM - Uncontrolled E11.65 Insulin: No No current facility-administered medications on file prior to visit. Social History Social History Tobacco Use Smoking status: Former Current packs/day: 0.00 Average packs/day: 1.5 packs/day for 25.0 years (37.5 ttl pk-yrs) Types: Cigarettes Start date: 02/04/1999 Quit date: 02/05/2024 Years since quittin.9 Vaping Use Vaping status: Never Used Substance Use Topics Alcohol use: Not Currently Drug use: Not Currently Frequency: 3.0 times per week Types: Marijuana Comment: smokes and uses edibles Review of Symptoms REVIEW OF SYSTEMS SEE HPI EXAM: BP 124/78 Pulse 108 Resp 12 Wt 75.9 kg (167 lb 5.3 oz) General Appearance: Well appearing, alert, in no acute distress, well-hydrated, well nourished. Health Maintenance List Depression Screening Never done Anxiety Screening Never done Pneumococcal Vaccine(1 of 2 - PCV) Never done Urine Albumin:Creatinine Ratio due on 10/15/2024 Diabetic Foot Exam due on 02/07/2025 Influenza Vaccine(1) due on 05/07/2025 HbA1C due on 04/04/2025 Dilated Retinal Exam due on 10/27/2025 LDL Cholesterol due on 11/20/2025 Annual PCP Team Chronic Disease Visit due on 12/28/2025 DTaP,Tdap,Td Vaccine(2 - Td or Tdap) due on 10/15/2033 Hepatitis C Screening Completed HIV Screening Completed Covid-19 Vaccine Completed Hepatitis B Vaccine Discontinued ASSESSMENT/PLAN: 1. ADHD (attention deficit hyperactivity disorder), predominantly hyperactive impulsive type - ICD9: 314.01, ICD10: F90.1 -Patient now being seen by psych for medication management. Follow up in April for routine follow up for other chronic conditions. Austin Camarena APRN.[facility]03-20-2025 History of Present illness Narrative* Austin Camarena APRN.SHIPPING ASSOCIATE - 01/25/2025 3:40 PM EDT Chief Complaint Patient presents with: Medication Follow-up HPI Weston Gamez is a 39 year old male who presents here today for Above Complaints.. Patient presents for medication follow up. Patient reports he stopped strattera and is seeing psychwho placed him on buspar, adderall. Patient seeing psych in [place] at [facility]. Past medical history, appointments, medications, allergies reviewed. Previous Medical History PAST MEDICAL HISTORY Diagnosis Date ADHD (attention deficit hyperactivity disorder) Bipolar 1 disorder (HCC) DM (diabetes mellitus), type 2 (HCC) Gastroparesis 02/2024 Previous Surgical History PAST SURGICAL HISTORY Procedure Laterality Date NONE Family History FAMILY HISTORY Problem Relation Age of Onset Hypertension Father Heart Father Hypertension Mother Diabetes Mother No Ocular Disease No Family History Patient Allergies ALLERGIES No Known Allergies Current Medications Current Outpatient Medications on File Prior to Visit Medication Sig rosuvastatin (CRESTOR) 5 mg tablet Take 1 tablet by mouth daily at bedtime. gabapentin (NEURONTIN) 100 mg capsule Take 2 capsules by mouth three times a day for 90 days. ergocalciferol 50,000 unit capsule (VITAMIN D2, DRISDOL) Take 1 capsule by mouth one time a week. Use as directed. atomoxetine (STRATTERA) 40 mg capsule Take 1 capsule by mouth once daily. lisinopril (ZESTRIL) 20 mg tablet Take 1 tablet by mouth once daily. pantoprazole DR (PROTONIX) 40 mg tablet Take 40 mg by mouth two times a day. amitriptyline (ELAVIL) 25 mg tablet Take 25 mg by mouth daily at bedtime. scopolamine (TRANSDERM-SCOP) patch 1.5 mg/72 hr (delivers 1 mg over 3 days) Apply 1 Patch as directed every 72 hours. sucralfate (CARAFATE) 1 gram tablet Take 1 g by mouth four times daily. LANTUS SOLOSTAR U-100 INSULIN 100 unit/mL (3 mL) Inject 12 Units subcutaneously daily at bedtime. insulin lispro 100 unit/mL injection Inject 6 Units subcutaneously three times a day before meals. 3 units with snacks metoclopramide HCl (REGLAN) 5 mg tablet Take 1 tablet by mouth four times daily. insulin needles, DISPOSABLE, (PEN NEEDLE) 31 gauge x 5/16 Use as Directed for Insulin injection blood sugar diagnostic (BLOOD GLUCOSE TEST) test strip Test blood sugar(s) 1 times daily. Dx: Type 2 DM - Uncontrolled E11.65 Insulin: No Lancets Test blood sugar(s) 1 times daily. Dx: Type 2 DM - Uncontrolled E11.65 Insulin: No No current facility-administered medications on file prior to visit. Social History Social History Tobacco Use Smoking status: Former Current packs/day: 0.00 Average packs/day: 1.5 packs/day for 25.0 years (37.5 ttl pk-yrs) Types: Cigarettes Start date: 02/04/1999 Quit date: 02/05/2024 Years since quittin.9 Vaping Use Vaping status: Never Used Substance Use Topics Alcohol use: Not Currently Drug use: Not Currently Frequency: 3.0 times per week Types: Marijuana Comment: smokes and uses edibles Review of Symptoms REVIEW OF SYSTEMS SEE HPI EXAM: BP 124/78 Pulse 108 Resp 12 Wt 75.9 kg (167 lb 5.3 oz) General Appearance: Well appearing, alert, in no acute distress, well-hydrated, well nourished. Health Maintenance List Depression Screening Never done Anxiety Screening Never done Pneumococcal Vaccine(1 of 2 - PCV) Never done Urine Albumin:Creatinine Ratio due on 10/15/2024 Diabetic Foot Exam due on 02/07/2025 Influenza Vaccine(1) due on 05/07/2025 HbA1C due on 04/04/2025 Dilated Retinal Exam due on 10/27/2025 LDL Cholesterol due on 11/20/2025 Annual PCP Team Chronic Disease Visit due on 12/28/2025 DTaP,Tdap,Td Vaccine(2 - Td or Tdap) due on 10/15/2033 Hepatitis C Screening Completed HIV Screening Completed Covid-19 Vaccine Completed Hepatitis B Vaccine Discontinued ASSESSMENT/PLAN: 1. ADHD (attention deficit hyperactivity disorder), predominantly hyperactive impulsive type - ICD9: 314.01, ICD10: F90.1 -Patient now being seen by psych for medication management. Follow up in April for routine follow up for other chronic conditions. Austin Camarena APRN.SHIPPING ASSOCIATE [facility] Evaluation note* Diagnosis Onset Date Resolution Status Admit Date Elevated alkaline phosphatas e level chronic January 18, 2025 1:02pm Elevated AST (SGOT) chronic January 18, 2025 1:02pm High cholesterol chronic January 182024 1:02pm Hypertension chronic January 18, 2025 1:02pm Insulin pump titration chronic [facility] 2024 1:02pm Presence of insulin pump chronic January 18, 2025 1:02pm Type 1 diabetes chronic January 1:02pm [facility] Work Phone: 1(509) 773-830803-13-2025 Evaluation note* Diagnosis Onset Date Resolution Status Admit Date Elevated alkaline phosphatas e level chronic January 18, 2025 1:02pm Elevated AST (SGOT) chronic January 18, 2025 1:02pm High cholesterol chronic January 182024 1:02pm Hypertension chronic January 18, 2025 1:02pm Insulin pump titration chronic [facility] 2024 1:02pm Presence of insulin pump chronic January 18, 2025 1:02pm Type 1 diabetes chronic January 1:02pm High cholesterol chronic April 1:07pm Hypertension chronic April 19, 2 025 1:07pm Insulin pump titration chronic [facility] 2024 1:07pm Presence of insulin pump chronic April 19, 2025 1:07pm Type 1 diabetes chronic April 1:07pm [facility] Work Phone: 1(862) 182-258503-13-2025 Evaluation note* Diagnosis Onset Date Resolution Status Admit Date Elevated alkaline phosphatas e level chronic January 18, 2025 1:02pm Elevated AST (SGOT) chronic January 18, 2025 1:02pm High cholesterol chronic January 182024 1:02pm Hypertension chronic January 18, 2025 1:02pm Insulin pump titration chronic [facility] 2024 1:02pm Presence of insulin pump chronic January 18, 2025 1:02pm Type 1 diabetes chronic January 1:02pm High cholesterol chronic April 1:07pm Hypertension chronic April 19, 2 025 1:07pm Insulin pump titration chronic [facility] 2024 1:07pm Presence of insulin pump chronic April 19, 2025 1:07pm Type 1 diabetes chronic April 1:07pm Bipolar disorder chronic April 8:44am Hypertension chronic May 03, 2 025 8:44am Presence of insulin pump chronic May 03, 2025 8:44am Type 1 diabetes chronic April 8:44am [facility] Work Phone: 1(222) 181-946503-03-2025 Telephone encounter Note* Telephone Encounter - Oksana Naidu LPN - 01/08/2025 12:28 PM EST Prescription Refill Information The patient has been identified by name and date of : Yes Caregiver verified no other encounters exist for this prescription request: Yes Caregiver confirmed with patient/requestor that no other refills are due, in the near future, with this provider at this time: Yes The last office visit in the department: 12/28/24 Does the patient have a future office visit with this provider/department: Yes 01/25/25 Requested Prescriptions Pending Prescriptions Disp Refills rosuvastatin (CRESTOR) 5 mg tablet 90 tablet 1 Sig: Take 1 tablet by mouth daily at bedtime. gabapentin (NEURONTIN) 100 mg capsule 180 capsule 2 Sig: Take 2 capsules by mouth three times a day for 90 days. Oksana Naidu LPN January 08, 2025 12:30 PM [facility]03-03-2025 Miscellaneous Notes* Telephone Encounter - Oksana Naidu LPN - 01/08/2025 12:28 PM EST Prescription Refill Information The patient has been identified by name and date of : Yes Caregiver verified no other encounters exist for this prescription request: Yes Caregiver confirmed with patient/requestor that no other refills are due, in the near future, with this provider at this time: Yes The last office visit in the department: 12/28/24 Does the patient have a future office visit with this provider/department: Yes 01/25/25 Requested Prescriptions Pending Prescriptions Disp Refills rosuvastatin (CRESTOR) 5 mg tablet 90 tablet 1 Sig: Take 1 tablet by mouth daily at bedtime. gabapentin (NEURONTIN) 100 mg capsule 180 capsule 2 Sig: Take 2 capsules by mouth three times a day for 90 days. Oksana Naidu LPN January 08, 2025 12:30 PM documented in [facility] encounter[facility] Progress note* Result Encounter Note - Elba Darnell MA - 01/08/2025 8:49 AM EST Call to pt and notified him of results and recommendations below from Provider. Pt verbalized understanding. Elba Darnell MA [facility]03-03-2025 Miscellaneous Notes* Result Encounter Note - Elba Darnell MA - 01/08/2025 8:49 AM EST Call to pt and notified him of results and recommendations below from Provider. Pt verbalized understanding. Elba Darnell MA * Telephone Encounter - Austin Camarena APRN.CNP - 01/08/2025 8:45 AM EST Please let patient know his vitamin d is low. I have sent a prescription for replacement. documented in this encounterSelect [facility]25 Telephone encounter Note * Telephone Encounter - Austin Camarena APRN.CNP - 01/08/2025 8:45 AM EST Please let patient know his vitamin d is low. I have sent a prescription for replacement. [facility]-20-2025 NoteHNO ID: [id number] Author: PRAKASH FONTANA OD Service: ? Author Type: TABLEAU DEVELOPER Type: Progress Notes Filed: 12/28/2024 15:45 Note Text: (E11.9) Type 2 diabetes mellitus without retinopathy (HCC) (primary encounter diagnosis) (H52.13) Myopia, bilateral (H25.13) Nuclear sclerosis of both eyes No previous retinopathy Stable rx today compared to Prakash Fontana OD December 28, 2024 3:44 [facility]02-20-2025 History of Present illness Narrative* Prakash Fontana, OD - 12/28/2024 3:44 PM EST (E11.9) Type 2 diabetes mellitus without retinopathy (HCC) (primary encounter diagnosis) (H52.13) Myopia, bilateral (H25.13) Nuclear sclerosis of both eyes No previous retinopathy Stable rx today compared to Prakash Fontana OD December 28, 2024 3:44 PM documented in this encounterCleveland [id number] NoteHNO ID: [id number] Author: AUSTIN CAMARENA APRN.SHIPPING ASSOCIATE Service: ? Author Type: Nurse Practitioner Type: Progress Notes Filed: 12/28/2024 12:05 Note Text: Chief Complaint No chief complaint on file. HPI Weston Gamez is a 39 year old male who presents here today for Above Complaints.. Patient presents for follow up for ADHD. Reports no improvement in symptoms from Strattera. Would like to discuss stimulant options. Past medical history, appointments, medications, allergies reviewed. Previous Medical History PAST MEDICAL HISTORY Diagnosis Date ADHD (attention deficit hyperactivity disorder) Bipolar 1 disorder (HCC) DM (diabetes mellitus), type 2 (HCC) Gastroparesis 02/2024 NEGATIVE MEDICAL HISTORY Previous Surgical History PAST SURGICAL HISTORY Procedure Laterality Date NONE Family History FAMILY HISTORY Problem Relation Age of Onset Hypertension Father Heart Father Hypertension Mother Diabetes Mother No Ocular Disease No Family History Patient Allergies ALLERGIES No Known Allergies Current Medications Current Outpatient Medications on File Prior to Visit Medication Sig atomoxetine (STRATTERA) 40 mg capsule Take 1 capsule by mouth once daily. lisinopril (ZESTRIL) 20 mg tablet Take 1 tablet by mouth once daily. pantoprazole DR (PROTONIX) 40 mg tablet Take 40 mg by mouth two times a day. amitriptyline (ELAVIL) 25 mg tablet Take 25 mg by mouth daily at bedtime. scopolamine (TRANSDERM-SCOP) patch 1.5 mg/72 hr (delivers 1 mg over 3 days) Apply 1 Patch as directed every 72 hours. sucralfate (CARAFATE) 1 gram tablet Take 1 g by mouth four times daily. LANTUS SOLOSTAR U-100 INSULIN 100 unit/mL (3 mL) Inject 12 Units subcutaneously daily at bedtime. insulin lispro 100 unit/mL injection Inject 6 Units subcutaneously three times a day before meals. 3 units with snacks gabapentin (NEURONTIN) 100 mg capsule Take 2 capsules by mouth three times a day for 90 days. rosuvastatin (CRESTOR) 5 mg tablet Take 1 tablet by mouth daily at bedtime. metoclopramide HCl (REGLAN) 5 mg tablet Take 1 tablet by mouth four times daily. insulin needles, DISPOSABLE, (PEN NEEDLE) 31 gauge x 5/16 Use as Directed for Insulin injection blood sugar diagnostic (BLOOD GLUCOSE TEST) test strip Test blood sugar(s) 1 times daily. Dx: Type 2 DM - Uncontrolled E11.65 Insulin: No Lancets Test blood sugar(s) 1 times daily. Dx: Type 2 DM - Uncontrolled E11.65 Insulin: No No current facility-administered medications on file prior to visit. Social History Social History Tobacco Use Smoking status: Former Current packs/day: 0.00 Average packs/day: 1.5 packs/day for 25.0 years (37.5 ttl pk-yrs) Types: Cigarettes Start date: 02/04/1999 Quit date: 02/05/2024 Years since quittin.8 Vaping Use Vaping status: Never Used Substance Use Topics Alcohol use: Not Currently Drug use: Not Currently Frequency: 3.0 times per week Types: Marijuana Comment: smokes and uses edibles Review of Symptoms REVIEW OF SYSTEMS SEE HPI EXAM: BP 145/84 Pulse 94 Wt 69.4 kg (153 lb) General Appearance: Well appearing, alert, in no acute distress, well-hydrated, well nourished. Lungs: Lungs clear to auscultation. No wheezing, rhonchi, rales.. Heart: RRR without murmur, gallop, or rubs. No ectopy. Health Maintenance List Depression Screening Never done Anxiety Screening Never done Pneumococcal Vaccine(1 of 2 - PCV) Never done Urine Albumin:Creatinine Ratio due on 10/15/2024 Influenza Vaccine(1) due on 05/07/2025 Diabetic Foot Exam due on 02/07/2025 HbA1C due on 02/18/2025 Dilated Retinal Exam due on 10/27/2025 LDL Cholesterol due on 11/20/2025 Annual PCP Team Chronic Disease Visit due on 12/11/2025 DTaP,Tdap,Td Vaccine(2 - Td or Tdap) due on 10/15/2033 Hepatitis C Screening Completed HIV Screening Completed Covid-19 Vaccine Completed Hepatitis B Vaccine Discontinued ASSESSMENT/PLAN: 1. Medication management - ICD9: V58.69, ICD10: Z79.899 (primary diagnosis) - TOXICOLOGY SCREEN, ROUTINE URINE - QUANTITATIVE TOXICOLOGY PANEL, URINE 2. ADHD (attention deficit hyperactivity disorder), predominantly hyperactive impulsive type - ICD9: 314.01, ICD10: F90.1 -Stop Strattera - Start Adderall 10mg XR daily once tox screen results. Austin [facility]rena [facility]N.[facility] History of Present illness Narrative* Austin Camarena APRN.TESS - 12/28/2024 10:06 AM EST Chief Complaint No chief complaint on file. HPI Weston Gamez is a 39 year old male who presents here today for Above Complaints.. Patient presents for follow up for ADHD. Reports no improvement in symptoms from Strattera. Would like to discuss stimulant options. Past medical history, appointments, medications, allergies reviewed. Previous Medical History PAST MEDICAL HISTORY Diagnosis Date ADHD (attention deficit hyperactivity disorder) Bipolar 1 disorder (HCC) DM (diabetes mellitus), type 2 (HCC) Gastroparesis 02/2024 NEGATIVE MEDICAL HISTORY Previous Surgical History PAST SURGICAL HISTORY Procedure Laterality Date NONE Family History FAMILY HISTORY Problem Relation Age of Onset Hypertension Father Heart Father Hypertension Mother Diabetes Mother No Ocular Disease No Family History Patient Allergies ALLERGIES No Known Allergies Current Medications Current Outpatient Medications on File Prior to Visit Medication Sig atomoxetine (STRATTERA) 40 mg capsule Take 1 capsule by mouth once daily. lisinopril (ZESTRIL) 20 mg tablet Take 1 tablet by mouth once daily. pantoprazole DR (PROTONIX) 40 mg tablet Take 40 mg by mouth two times a day. amitriptyline (ELAVIL) 25 mg tablet Take 25 mg by mouth daily at bedtime. scopolamine (TRANSDERM-SCOP) patch 1.5 mg/72 hr (delivers 1 mg over 3 days) Apply 1 Patch as directed every 72 hours. sucralfate (CARAFATE) 1 gram tablet Take 1 g by mouth four times daily. LANTUS SOLOSTAR U-100 INSULIN 100 unit/mL (3 mL) Inject 12 Units subcutaneously daily at bedtime. insulin lispro 100 unit/mL injection Inject 6 Units subcutaneously three times a day before meals. 3 units with snacks gabapentin (NEURONTIN) 100 mg capsule Take 2 capsules by mouth three times a day for 90 days. rosuvastatin (CRESTOR) 5 mg tablet Take 1 tablet by mouth daily at bedtime. metoclopramide HCl (REGLAN) 5 mg tablet Take 1 tablet by mouth four times daily. insulin needles, DISPOSABLE, (PEN NEEDLE) 31 gauge x 5/16 Use as Directed for Insulin injection blood sugar diagnostic (BLOOD GLUCOSE TEST) test strip Test blood sugar(s) 1 times daily. Dx: Type 2 DM - Uncontrolled E11.65 Insulin: No Lancets Test blood sugar(s) 1 times daily. Dx: Type 2 DM - Uncontrolled E11.65 Insulin: No No current facility-administered medications on file prior to visit. Social History Social History Tobacco Use Smoking status: Former Current packs/day: 0.00 Average packs/day: 1.5 packs/day for 25.0 years (37.5 ttl pk-yrs) Types: Cigarettes Start date: 02/04/1999 Quit date: 02/05/2024 Years since quittin.8 Vaping Use Vaping status: Never Used Substance Use Topics Alcohol use: Not Currently Drug use: Not Currently Frequency: 3.0 times per week Types: Marijuana Comment: smokes and uses edibles Review of Symptoms REVIEW OF SYSTEMS SEE HPI EXAM: BP 145/84 Pulse 94 Wt 69.4 kg (153 lb) General Appearance: Well appearing, alert, in no acute distress, well-hydrated, well nourished. Lungs: Lungs clear to auscultation. No wheezing, rhonchi, rales.. Heart: RRR without murmur, gallop, or rubs. No ectopy. Health Maintenance List Depression Screening Never done Anxiety Screening Never done Pneumococcal Vaccine(1 of 2 - PCV) Never done Urine Albumin:Creatinine Ratio due on 10/15/2024 Influenza Vaccine(1) due on 05/07/2025 Diabetic Foot Exam due on 02/07/2025 HbA1C due on 02/18/2025 Dilated Retinal Exam due on 10/27/2025 LDL Cholesterol due on 11/20/2025 Annual PCP Team Chronic Disease Visit due on 12/11/2025 DTaP,Tdap,Td Vaccine(2 - Td or Tdap) due on 10/15/2033 Hepatitis C Screening Completed HIV Screening Completed Covid-19 Vaccine Completed Hepatitis B Vaccine Discontinued ASSESSMENT/PLAN: 1. Medication management - ICD9: V58.69, ICD10: Z79.899 (primary diagnosis) - TOXICOLOGY SCREEN, ROUTINE URINE - QUANTITATIVE TOXICOLOGY PANEL, URINE 2. ADHD (attention deficit hyperactivity disorder), predominantly hyperactive impulsive type - ICD9: 314.01, ICD10: F90.1 -Stop Strattera - Start Adderall 10mg XR daily once tox screen results. Austin Camarena APRN.SHIPPING ASSOCIATE documented in this encounterSelect [facility]-2025 NoteHNO ID: [id number] Author: AUSTIN CAMARENA APRN.CNP Service: ? Author Type: Nurse Practitioner Type: Progress Notes Filed: 12/11/2024 09:21 Note Text: Chief Complaint Patient presents with: Follow Up HPI Weston Gamez is a 39 year old male who presents here today for Above Complaints.. Patient presents for medication follow up. Started Strattera 2 weeks ago and reports no improvement. Past medical history, appointments, medications, allergies reviewed. Previous Medical History PAST MEDICAL HISTORY Diagnosis Date ADHD (attention deficit hyperactivity disorder) Bipolar 1 disorder (HCC) DM (diabetes mellitus), type 2 (HCC) Gastroparesis 02/2024 NEGATIVE MEDICAL HISTORY Previous Surgical History PAST SURGICAL HISTORY Procedure Laterality Date NONE Family History FAMILY HISTORY Problem Relation Age of Onset Hypertension Father Heart Father Hypertension Mother Diabetes Mother No Ocular Disease No Family History Patient Allergies ALLERGIES No Known Allergies Current Medications Current Outpatient Medications on File Prior to Visit Medication Sig atomoxetine (STRATTERA) 10 mg capsule Take 1 capsule by mouth once daily. pantoprazole DR (PROTONIX) 40 mg tablet Take 40 mg by mouth two times a day. amitriptyline (ELAVIL) 25 mg tablet Take 25 mg by mouth daily at bedtime. scopolamine (TRANSDERM-SCOP) patch 1.5 mg/72 hr (delivers 1 mg over 3 days) Apply 1 Patch as directed every 72 hours. sucralfate (CARAFATE) 1 gram tablet Take 1 g by mouth four times daily. LANTUS SOLOSTAR U-100 INSULIN 100 unit/mL (3 mL) Inject 12 Units subcutaneously daily at bedtime. insulin lispro 100 unit/mL injection Inject 6 Units subcutaneously three times a day before meals. 3 units with snacks gabapentin (NEURONTIN) 100 mg capsule Take 2 capsules by mouth three times a day for 90 days. rosuvastatin (CRESTOR) 5 mg tablet Take 1 tablet by mouth daily at bedtime. metoclopramide HCl (REGLAN) 5 mg tablet Take 1 tablet by mouth four times daily. insulin needles, DISPOSABLE, (PEN NEEDLE) 31 gauge x 5/16 Use as Directed for Insulin injection lisinopril (ZESTRIL) 20 mg tablet blood sugar diagnostic (BLOOD GLUCOSE TEST) test strip Test blood sugar(s) 1 times daily. Dx: Type 2 DM - Uncontrolled E11.65 Insulin: No Lancets Test blood sugar(s) 1 times daily. Dx: Type 2 DM - Uncontrolled E11.65 Insulin: No No current facility-administered medications on file prior to visit. Social History Social History Tobacco Use Smoking status: Former Current packs/day: 0.00 Average packs/day: 1.5 packs/day for 25.0 years (37.5 ttl pk-yrs) Types: Cigarettes Start date: 02/04/1999 Quit date: 02/05/2024 Years since quittin.8 Vaping Use Vaping status: Never Used Substance Use Topics Alcohol use: Not Currently Drug use: Not Currently Frequency: 3.0 times per week Types: Marijuana Comment: smokes and uses edibles Review of Symptoms REVIEW OF SYSTEMS SEE HPI EXAM: BP 124/88 Pulse 89 Resp 14 Wt 70.8 kg (156 lb) General Appearance: Well appearing, alert, in no acute distress, well-hydrated, well nourished.. Health Maintenance List Depression Screening Never done Anxiety Screening Never done Pneumococcal Vaccine(1 of 2 - PCV) Never done Urine Albumin:Creatinine Ratio due on 10/15/2024 Influenza Vaccine(1) due on 05/07/2025 Diabetic Foot Exam due on 02/07/2025 HbA1C due on 02/18/2025 Dilated Retinal Exam due on 10/27/2025 LDL Cholesterol due on 11/20/2025 Annual PCP Team Chronic Disease Visit due on 11/27/2025 DTaP,Tdap,Td Vaccine(2 - Td or Tdap) due on 10/15/2033 Hepatitis C Screening Completed HIV Screening Completed Covid-19 Vaccine Completed HPV Vaccine Aged Out Hepatitis B Vaccine Discontinued ASSESSMENT/PLAN: 1. ADHD (attention deficit hyperactivity disorder), predominantly hyperactive impulsive type - ICD9: 314.01, ICD10: F90.1 (primary diagnosis) - ATOMOXETINE 40 MG CAPSULE 2. Primary hypertension - ICD9: 401.9, ICD10: I10 - Controlled - Recommend home blood pressure monitoring, to bring results to next visit - Encouraged sodium restriction, DASH or Mediterranean diet - Recommend regular aerobic exercise - LISINOPRIL 20 MG TABLET Austin Camarena APRN.[facility]02-03-2025 History of Present illness Narrative* Austin Camarena, CINTHIA.SHIPPING ASSOCIATE - 12/11/2024 9:09 AM EST Chief Complaint Patient presents with: Follow Up HPI Weston Gamez is a 39 year old male who presents here today for Above Complaints.. Patient presents for medication follow up. Started Strattera 2 weeks ago and reports no improvement. Past medical history, appointments, medications, allergies reviewed. Previous Medical History PAST MEDICAL HISTORY Diagnosis Date ADHD (attention deficit hyperactivity disorder) Bipolar 1 disorder (HCC) DM (diabetes mellitus), type 2 (HCC) Gastroparesis 02/2024 NEGATIVE MEDICAL HISTORY Previous Surgical History PAST SURGICAL HISTORY Procedure Laterality Date NONE Family History FAMILY HISTORY Problem Relation Age of Onset Hypertension Father Heart Father Hypertension Mother Diabetes Mother No Ocular Disease No Family History Patient Allergies ALLERGIES No Known Allergies Current Medications Current Outpatient Medications on File Prior to Visit Medication Sig atomoxetine (STRATTERA) 10 mg capsule Take 1 capsule by mouth once daily. pantoprazole DR (PROTONIX) 40 mg tablet Take 40 mg by mouth two times a day. amitriptyline (ELAVIL) 25 mg tablet Take 25 mg by mouth daily at bedtime. scopolamine (TRANSDERM-SCOP) patch 1.5 mg/72 hr (delivers 1 mg over 3 days) Apply 1 Patch as directed every 72 hours. sucralfate (CARAFATE) 1 gram tablet Take 1 g by mouth four times daily. LANTUS SOLOSTAR U-100 INSULIN 100 unit/mL (3 mL) Inject 12 Units subcutaneously daily at bedtime. insulin lispro 100 unit/mL injection Inject 6 Units subcutaneously three times a day before meals. 3 units with snacks gabapentin (NEURONTIN) 100 mg capsule Take 2 capsules by mouth three times a day for 90 days. rosuvastatin (CRESTOR) 5 mg tablet Take 1 tablet by mouth daily at bedtime. metoclopramide HCl (REGLAN) 5 mg tablet Take 1 tablet by mouth four times daily. insulin needles, DISPOSABLE, (PEN NEEDLE) 31 gauge x 5/16 Use as Directed for Insulin injection lisinopril (ZESTRIL) 20 mg tablet blood sugar diagnostic (BLOOD GLUCOSE TEST) test strip Test blood sugar(s) 1 times daily. Dx: Type 2 DM - Uncontrolled E11.65 Insulin: No Lancets Test blood sugar(s) 1 times daily. Dx: Type 2 DM - Uncontrolled E11.65 Insulin: No No current facility-administered medications on file prior to visit. Social History Social History Tobacco Use Smoking status: Former Current packs/day: 0.00 Average packs/day: 1.5 packs/day for 25.0 years (37.5 ttl pk-yrs) Types: Cigarettes Start date: 02/04/1999 Quit date: 02/05/2024 Years since quittin.8 Vaping Use Vaping status: Never Used Substance Use Topics Alcohol use: Not Currently Drug use: Not Currently Frequency: 3.0 times per week Types: Marijuana Comment: smokes and uses edibles Review of Symptoms REVIEW OF SYSTEMS SEE HPI EXAM: BP 124/88 Pulse 89 Resp 14 Wt 70.8 kg (156 lb) General Appearance: Well appearing, alert, in no acute distress, well-hydrated, well nourished.. Health Maintenance List Depression Screening Never done Anxiety Screening Never done Pneumococcal Vaccine(1 of 2 - PCV) Never done Urine Albumin:Creatinine Ratio due on 10/15/2024 Influenza Vaccine(1) due on 05/07/2025 Diabetic Foot Exam due on 02/07/2025 HbA1C due on 02/18/2025 Dilated Retinal Exam due on 10/27/2025 LDL Cholesterol due on 11/20/2025 Annual PCP Team Chronic Disease Visit due on 11/27/2025 DTaP,Tdap,Td Vaccine(2 - Td or Tdap) due on 10/15/2033 Hepatitis C Screening Completed HIV Screening Completed Covid-19 Vaccine Completed HPV Vaccine Aged Out Hepatitis B Vaccine Discontinued ASSESSMENT/PLAN: 1. ADHD (attention deficit hyperactivity disorder), predominantly hyperactive impulsive type - ICD9: 314.01, ICD10: F90.1 (primary diagnosis) - ATOMOXETINE 40 MG CAPSULE 2. Primary hypertension - ICD9: 401.9, ICD10: I10 - Controlled - Recommend home blood pressure monitoring, to bring results to next visit - Encouraged sodium restriction, DASH or Mediterranean diet - Recommend regular aerobic exercise - LISINOPRIL 20 MG TABLET Austin Camarena APRN.CNP documented in this encounterSelect [facility] Instructions* Patient Instructions* Austin Camarena APRN.CNP - 11/27/2024 3:46 PM EST [place] [facility] [address] [place] [address] [facility] [address] [place] [address] [employer] [address] [address] [facility] [address], [address] [place] [address] [facility] [address] [place] [address] [employer] [address] [address] [employer] [address] [place] [address] [facility] [address] [place] [address] documented in this encounterSelect [facility]01-20-2025 NoteHNO ID: [id number] Author: AUSTIN CAMARENA APRN.TESS Service: ? Author Type: Nurse Practitioner Type: Progress Notes Filed: 11/27/2024 15:58 Note Text: Chief Complaint Patient presents with: F/U 6 months HPI Weston Gamez is a 39 year old male who presents here today for Above Complaints.. Patient presents for routine follow up. Would like to get on medication for his ADHD, was on ritalin in childhood. Patient reports he has difficulty with focusing on task completion. Past medical history, appointments, medications, allergies reviewed. Previous Medical History PAST MEDICAL HISTORY Diagnosis Date Bipolar 1 disorder (HCC) DM (diabetes mellitus), type 2 (HCC) Gastroparesis 02/2024 NEGATIVE MEDICAL HISTORY Previous Surgical History PAST SURGICAL HISTORY Procedure Laterality Date NONE Family History FAMILY HISTORY Problem Relation Age of Onset Hypertension Father Heart Father Hypertension Mother Diabetes Mother No Ocular Disease No Family History Patient Allergies ALLERGIES No Known Allergies Current Medications Current Outpatient Medications on File Prior to Visit Medication Sig pantoprazole DR (PROTONIX) 40 mg tablet Take 40 mg by mouth two times a day. amitriptyline (ELAVIL) 25 mg tablet Take 25 mg by mouth daily at bedtime. scopolamine (TRANSDERM-SCOP) patch 1.5 mg/72 hr (delivers 1 mg over 3 days) Apply 1 Patch as directed every 72 hours. sucralfate (CARAFATE) 1 gram tablet Take 1 g by mouth four times daily. LANTUS SOLOSTAR U-100 INSULIN 100 unit/mL (3 mL) Inject 12 Units subcutaneously daily at bedtime. insulin lispro 100 unit/mL injection Inject 6 Units subcutaneously three times a day before meals. 3 units with snacks gabapentin (NEURONTIN) 100 mg capsule Take 2 capsules by mouth three times a day for 90 days. rosuvastatin (CRESTOR) 5 mg tablet Take 1 tablet by mouth daily at bedtime. metoclopramide HCl (REGLAN) 5 mg tablet Take 1 tablet by mouth four times daily. insulin needles, DISPOSABLE, (PEN NEEDLE) 31 gauge x 5/16 Use as Directed for Insulin injection lisinopril (ZESTRIL) 20 mg tablet blood sugar diagnostic (BLOOD GLUCOSE TEST) test strip Test blood sugar(s) 1 times daily. Dx: Type 2 DM - Uncontrolled E11.65 Insulin: No Lancets Test blood sugar(s) 1 times daily. Dx: Type 2 DM - Uncontrolled E11.65 Insulin: No No current facility-administered medications on file prior to visit. Social History Social History Tobacco Use Smoking status: Former Current packs/day: 0.00 Average packs/day: 1.5 packs/day for 25.0 years (37.5 ttl pk-yrs) Types: Cigarettes Start date: 02/04/1999 Quit date: 02/05/2024 Years since quittin.8 Vaping Use Vaping status: Never Used Substance Use Topics Alcohol use: Not Currently Drug use: Not Currently Frequency: 3.0 times per week Types: Marijuana Comment: smokes and uses edibles Review of Symptoms REVIEW OF SYSTEMS SEE HPI EXAM: BP 135/85 Pulse 92 Resp 14 Wt 70.8 kg (156 lb) General Appearance: Well appearing, alert, in no acute distress, well-hydrated, well nourished.. Health Maintenance List Depression Screening Never done Anxiety Screening Never done Pneumococcal Vaccine(1 of 2 - PCV) Never done Urine Albumin:Creatinine Ratio due on 10/15/2024 Influenza Vaccine(1) due on 05/07/2025 Diabetic Foot Exam due on 02/07/2025 HbA1C due on 02/18/2025 Annual PCP Team Chronic Disease Visit due on 08/07/2025 Dilated Retinal Exam due on 10/27/2025 LDL Cholesterol due on 11/20/2025 DTaP,Tdap,Td Vaccine(2 - Td or Tdap) due on 10/15/2033 Hepatitis C Screening Completed HIV Screening Completed Covid-19 Vaccine Completed HPV Vaccine Aged Out Hepatitis B Vaccine Discontinued ASSESSMENT/PLAN: 1. ADHD (attention deficit hyperactivity disorder), predominantly hyperactive impulsive type - ICD9: 314.01, ICD10: F90.1 -Follow up in 14 days for re-eval. - ATOMOXETINE 10 MG CAPSULE Austin Camarena APRN.[facility]01-20-2025 History of Present illness Narrative* Austin Camarena APRN.SHIPPING ASSOCIATE - 11/27/2024 3:37 PM EST Chief Complaint Patient presents with: F/U 6 months HPI Weston Gamez is a 39 year old male who presents here today for Above Complaints.. Patient presents for routine follow up. Would like to get on medication for his ADHD, was on ritalin in childhood. Patient reports he has difficulty with focusing on task completion. Past medical history, appointments, medications, allergies reviewed. Previous Medical History PAST MEDICAL HISTORY Diagnosis Date Bipolar 1 disorder (HCC) DM (diabetes mellitus), type 2 (HCC) Gastroparesis 02/2024 NEGATIVE MEDICAL HISTORY Previous Surgical History PAST SURGICAL HISTORY Procedure Laterality Date NONE Family History FAMILY HISTORY Problem Relation Age of Onset Hypertension Father Heart Father Hypertension Mother Diabetes Mother No Ocular Disease No Family History Patient Allergies ALLERGIES No Known Allergies Current Medications Current Outpatient Medications on File Prior to Visit Medication Sig pantoprazole DR (PROTONIX) 40 mg tablet Take 40 mg by mouth two times a day. amitriptyline (ELAVIL) 25 mg tablet Take 25 mg by mouth daily at bedtime. scopolamine (TRANSDERM-SCOP) patch 1.5 mg/72 hr (delivers 1 mg over 3 days) Apply 1 Patch as directed every 72 hours. sucralfate (CARAFATE) 1 gram tablet Take 1 g by mouth four times daily. LANTUS SOLOSTAR U-100 INSULIN 100 unit/mL (3 mL) Inject 12 Units subcutaneously daily at bedtime. insulin lispro 100 unit/mL injection Inject 6 Units subcutaneously three times a day before meals. 3 units with snacks gabapentin (NEURONTIN) 100 mg capsule Take 2 capsules by mouth three times a day for 90 days. rosuvastatin (CRESTOR) 5 mg tablet Take 1 tablet by mouth daily at bedtime. metoclopramide HCl (REGLAN) 5 mg tablet Take 1 tablet by mouth four times daily. insulin needles, DISPOSABLE, (PEN NEEDLE) 31 gauge x 5/16 Use as Directed for Insulin injection lisinopril (ZESTRIL) 20 mg tablet blood sugar diagnostic (BLOOD GLUCOSE TEST) test strip Test blood sugar(s) 1 times daily. Dx: Type 2 DM - Uncontrolled E11.65 Insulin: No Lancets Test blood sugar(s) 1 times daily. Dx: Type 2 DM - Uncontrolled E11.65 Insulin: No No current facility-administered medications on file prior to visit. Social History Social History Tobacco Use Smoking status: Former Current packs/day: 0.00 Average packs/day: 1.5 packs/day for 25.0 years (37.5 ttl pk-yrs) Types: Cigarettes Start date: 02/04/1999 Quit date: 02/05/2024 Years since quittin.8 Vaping Use Vaping status: Never Used Substance Use Topics Alcohol use: Not Currently Drug use: Not Currently Frequency: 3.0 times per week Types: Marijuana Comment: smokes and uses edibles Review of Symptoms REVIEW OF SYSTEMS SEE HPI EXAM: BP 135/85 Pulse 92 Resp 14 Wt 70.8 kg (156 lb) General Appearance: Well appearing, alert, in no acute distress, well-hydrated, well nourished.. Health Maintenance List Depression Screening Never done Anxiety Screening Never done Pneumococcal Vaccine(1 of 2 - PCV) Never done Urine Albumin:Creatinine Ratio due on 10/15/2024 Influenza Vaccine(1) due on 05/07/2025 Diabetic Foot Exam due on 02/07/2025 HbA1C due on 02/18/2025 Annual PCP Team Chronic Disease Visit due on 08/07/2025 Dilated Retinal Exam due on 10/27/2025 LDL Cholesterol due on 11/20/2025 DTaP,Tdap,Td Vaccine(2 - Td or Tdap) due on 10/15/2033 Hepatitis C Screening Completed HIV Screening Completed Covid-19 Vaccine Completed HPV Vaccine Aged Out Hepatitis B Vaccine Discontinued ASSESSMENT/PLAN: 1. ADHD (attention deficit hyperactivity disorder), predominantly hyperactive impulsive type - ICD9: 314.01, ICD10: F90.1 -Follow up in 14 days for re-eval. - ATOMOXETINE 10 MG CAPSULE Austin Camarena APRN.CNP [facility] Telephone encounter Note * Telephone Encounter - Lisseth Morel MA - 11/24/2024 3:13 PM EST Pt notified and verbalized understanding Lisseth Morel MA [facility]01-17-2025 Miscellaneous Notes* Telephone Encounter - Lisseth Morel MA - 11/24/2024 3:13 PM EST Pt notified and verbalized understanding Lisseth Morel MA * Telephone Encounter - Austin Camarena APRN.CNP - 11/24/2024 10:48 AM EST Please let patient know his hgba1c is 10.6. Patient should follow up with endocrinology. His other labs are stable. documented [facility] Telephone encounter Note * Telephone Encounter - Austin Camarena APRN.CNP - 11/24/2024 10:48 AM EST Please let patient know his hgba1c is 10.6. Patient should follow up with endocrinology. His other labs are stable. [facility] Evaluation note* Diagnosis Onset Date Resolution Status Admit Date Elevated alkaline phosphatas e level chronic November 22 11:43am Elevated AST (SGOT) chronic Rolan ry 2024 11:43am Hypertension chronic November 11:43am Insulin pump titration chronic Alonzo stovallary 2024 11:43am Presence of insulin pump chronic November 22, 2024 11:43am Type 1 diabetes chronic November 082024 11:43am Elevated alkaline phosphatas e level chronic January 18, 2025 1:02pm Elevated AST (SGOT) chronic January 18, 2025 1:02pm High cholesterol chronic January 182024 1:02pm Hypertension chronic January 18, 2025 1:02pm Insulin pump titration chronic [facility] 2024 1:02pm Presence of insulin pump chronic January 18, 2025 1:02pm Type 1 diabetes chronic January 1:02pm [facility] Work Phone: 1(498) 798-748912-31-2024 NotePatient Outreach (INTMMN) WESTON GAMEZ ([id number]) 1985 [facility] Date Time Provider Department 11/07/24 AUSTIN CAMARENA During your visit today, we recorded the following information about you: Allergies As of Date: 11/07/2024 (No Known Allergies) Date Reviewed: 10/27/2024 Reviewed by: Prakash Fontana OD - Fully Assessed Visit Diagnosis:Diabetes 1.5, 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 - amitriptyline (ELAVIL) 25 mg tablet Take 25 mg by mouth daily at bedtime. - scopolamine (TRANSDERM-SCOP) patch 1.5 mg/72 hr (delivers 1 mg over 3 days) Apply 1 Patch as directed every 72 hours. - sucralfate (CARAFATE) 1 gram tablet Take 1 g by mouth four times daily. - LANTUS SOLOSTAR U-100 INSULIN 100 unit/mL (3 mL) Inject 12 Units subcutaneously daily at bedtime. - insulin lispro 100 unit/mL injection Inject 6 Units subcutaneously three times a day before meals. 3 units with snacks - gabapentin (NEURONTIN) 100 mg capsule Take 2 capsules by mouth three times a day for 90 days. - rosuvastatin (CRESTOR) 5 mg tablet Take 1 tablet by mouth daily at bedtime. - metoclopramide HCl (REGLAN) 5 mg tablet Take 1 tablet by mouth four times daily. - insulin needles, DISPOSABLE, (PEN NEEDLE) 31 gauge x 5/16 Use as Directed for Insulin injection - lisinopril (ZESTRIL) 20 mg tablet - blood sugar diagnostic (BLOOD GLUCOSE TEST) test strip Test blood sugar(s) 1 times daily. Dx: Type 2 DM - Uncontrolled E11.65 Insulin: No - Lancets Test blood sugar(s) 1 times daily. 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 Author Type: TABLEAU DEVELOPER Type: Progress Notes Filed: 10/27/2024 11:02 Note Text: 1. Type 2 diabetes mellitus without retinopathy (HCC) Risk of diabetic changes and vision loss can be minimized by tight control of blood sugar, blood pressure, and cholesterol levels. Educated patient to continue care with primary care doctor and/or electrical unit rebuilder to maintain optimum levels as they are important to avoid ocular complications. Encouraged patient to call the office immediately with any changes to vision or visual concerns. Advised to not wait until the next scheduled exam. 2. Myopia, bilateral Recommending continuing with current glasses for now due to BS being under poor control with small myopic shift 3. NS both eyes Circular cataract both eyes- congential vs related to high BS? Will monitor Not interfering with vision Follow-up in 2 months for refraction check Prakash Bynumr, OD October 27, 2024 10:59 [facility]12-20-2024 History of Present illness Narrative* Prakash Fontana, OD - 10/27/2024 10:59 AM EST 1. Type 2 diabetes mellitus without retinopathy (HCC) Risk of diabetic changes and vision loss can be minimized by tight control of blood sugar, blood pressure, and cholesterol levels. Educated patient to continue care with primary care doctor and/or electrical unit rebuilder to maintain optimum levels as they are important to avoid ocular complications. Encouraged patient to call the office immediately with any changes to vision or visual concerns. Advised to not wait until the next scheduled exam. 2. Myopia, bilateral Recommending continuing with current glasses for now due to BS being under poor control with small myopic shift 3. NS both eyes Circular cataract both eyes- congential vs related to high BS? Will monitor Not interfering with vision Follow-up in 2 months for refraction check Prakash Fontana, OD October 27, 2024 10:59 AM documented in this encounterSelect [facility]-2024 NoteHNO ID: [id number] Author: MARY LONGORIA APRN.[facility] Service: ? Author Type: Nurse Practitioner Type: Progress Notes Filed: 10/18/2024 13:27 Note Text: Weston Gamez is a 39 year old male who presents to [facility] for abdominal pain, vomiting, fever. Person with him states he has had fever of 102 degrees F and can't quit vomiting. He is crying in the triage room. He is directed to the ED for further evaluation and treatment. He will go to [facility]. Mary Longoria [facility] History of Present illness Narrative* Mary Longoria APRN.SHIPPING ASSOCIATE - 10/18/2024 1:24 PM EST Weston Gamez is a 39 year old male who presents to [facility] for abdominal pain, vomiting, fever. Person with him states he has had fever of 102 degrees F and can't quit vomiting. He is crying in the triage room. He is directed to the ED for further evaluation and treatment. He will go to [facility]. Mary Longoria APRN.TESS documented in this encounterSelect [facility]-30-2024 NoteHNO ID: [id number] Author: AUSTIN CAMARENA APRN.TESS Service: ? Author Type: Nurse Practitioner Type: Progress Notes Filed: 08/07/2024 09:18 Note Text: Chief Complaint Patient presents with: Hospital F/U HPI Weston Gamez is a 38 year old male who presents here today for Above Complaints.. Patient presents for Hospital follow up for hematemesis and cyclical N/V. Endoscopy showed multiple bleeding ulcers which were biopsied. Patient was sent home on protonix twice daily and carafate 4 times daily. Has follow up with Dr. Argueta 08/15. Past medical history, appointments, medications, allergies reviewed. Previous Medical History PAST MEDICAL HISTORY Diagnosis Date Bipolar 1 disorder (HCC) DM (diabetes mellitus), type 2 (HCC) NEGATIVE MEDICAL HISTORY Previous Surgical History PAST SURGICAL HISTORY Procedure Laterality Date NONE Family History FAMILY HISTORY Problem Relation Age of Onset Hypertension Father Heart Father Hypertension Mother Diabetes Mother No Ocular Disease No Family History Patient Allergies ALLERGIES No Known Allergies Current Medications Current Outpatient Medications on File Prior to Visit Medication Sig rosuvastatin (CRESTOR) 5 mg tablet Take 1 tablet by mouth daily at bedtime. gabapentin (NEURONTIN) 100 mg capsule Take 2 capsules by mouth three times a day for [address] (PROTONIX) 40 mg tablet Take 1 tablet by mouth two times a day. Take on empty stomach, 1/2 hr before meal. metoclopramide HCl (REGLAN) 5 mg tablet Take 1 tablet by mouth four times daily. insulin needles, DISPOSABLE, (PEN NEEDLE) 31 gauge x 5/16 Use as Directed for Insulin injection lisinopril (ZESTRIL) 20 mg tablet LANTUS SOLOSTAR U-100 INSULIN 100 unit/mL (3 mL) Inject 15 Units subcutaneously daily at bedtime. blood sugar diagnostic (BLOOD GLUCOSE TEST) test strip Test blood sugar(s) 1 times daily. Dx: Type 2 DM - Uncontrolled E11.65 Insulin: No Lancets Test blood sugar(s) 1 times daily. Dx: Type 2 DM - Uncontrolled E11.65 Insulin: No No current facility-administered medications on file prior to visit. Social History Social History Tobacco Use Smoking status: Former Current packs/day: 0.00 Average packs/day: 1.5 packs/day for 25.0 years (37.5 ttl pk-yrs) Types: Cigarettes Start date: 02/04/1999 Quit date: 02/05/2024 Years since quittin.5 Vaping Use Vaping status: Never Used Substance Use Topics Alcohol use: Not Currently Drug use: Not Currently Frequency: 3.0 times per week Types: Marijuana Comment: smokes and uses edibles Review of Symptoms REVIEW OF SYSTEMS SEE HPI EXAM: BP 132/85 Pulse 97 Resp 14 Wt 71.2 kg (157 lb) General Appearance: Well appearing, alert, in no acute distress, well-hydrated, well nourished.. Lungs: Lungs clear to auscultation. No wheezing, rhonchi, rales.. Heart: RRR without murmur, gallop, or rubs. No ectopy. Abdomen: Normal abdominal exam, Abdomen soft, non-tender. Bowel sounds normal. No masses, organomegaly. Health Maintenance List Pneumococcal Vaccine(1 of 2 - PCV) Never done Depression Screening Never done Anxiety Screening Never done Covid-19 Vaccine() due on 07/09/2024 Influenza Vaccine(1) due on 07/09/2024 HbA1C due on 10/05/2024 Urine Albumin:Creatinine Ratio due on 10/15/2024 LDL Cholesterol due on 10/15/2024 Dilated Retinal Exam due on 10/26/2024 Diabetic Foot Exam due on 02/07/2025 Annual PCP Team Chronic Disease Visit due on 05/16/2025 DTaP,Tdap,Td Vaccine(2 - Td or Tdap) due on 10/15/2033 Hepatitis C Screening Completed HIV Screening Completed HPV Vaccine Aged Out Hepatitis B Vaccine Discontinued ASSESSMENT/PLAN: 1. Nausea and vomiting, unspecified vomiting type - ICD9: 787.01, ICD10: R11.2 (primary diagnosis) -Continue reglan 2. Type 2 diabetes mellitus with peripheral neuropathy (HCC) - ICD9: 250.60, 357.2, ICD10: E11.42 - Controlled - Continue current medications - Counseled on healthy diet and regular exercise - LANTUS SOLOSTAR U-100 INSULIN 100 UNIT/ML (3 ML) SUBCUTANEOUS PEN - GABAPENTIN 100 MG CAPSULE 3. Encounter for immunization - ICD9: V03.89, ICD10: Z23 - PFIZER-BIONTECH COVID-19 VACCINE AGE 12+ YR (COMIRNATY) 4. Hematemesis with nausea - ICD9: 578.0, 787.02, ICD10: K92.0 -Resolved, follow up with Dr. Argueta as scheduled 5. Acute gastric ulcer without hemorrhage or perforation - ICD9: 531.30, ICD10: K25.3 -Resolved, follow up with Dr. Argueta as scheduled Austin Camarena APRN.[facility]09-30-2024 History of Present illness Narrative* Austin Camarena APRN.[facility] - 08/07/2024 8:57 AM EDT Chief Complaint Patient presents with: Hospital F/U HPI Weston Gamez is a 38 year old male who presents here today for Above Complaints.. Patient presents for Hospital follow up for hematemesis and cyclical N/V. Endoscopy showed multiplebleeding ulcers which were biopsied. Patient was sent home on protonix twice daily and carafate 4 times daily. Has follow up with Dr. Argueta 08/15. Past medical history, appointments, medications, allergies reviewed. Previous Medical History PAST MEDICAL HISTORY Diagnosis Date Bipolar 1 disorder (HCC) DM (diabetes mellitus), type 2 (HCC) NEGATIVE MEDICAL HISTORY Previous Surgical History PAST SURGICAL HISTORY Procedure Laterality Date NONE Family History FAMILY HISTORY Problem Relation Age of Onset Hypertension Father Heart Father Hypertension Mother Diabetes Mother No Ocular Disease No Family History Patient Allergies ALLERGIES No Known Allergies Current Medications Current Outpatient Medications on File Prior to Visit Medication Sig rosuvastatin (CRESTOR) 5 mg tablet Take 1 tablet by mouth daily at bedtime. gabapentin (NEURONTIN) 100 mg capsule Take 2 capsules by mouth three times a day for [address] (PROTONIX) 40 mg tablet Take 1 tablet by mouth two times a day. Take on empty stomach, 1/2 hr before meal. metoclopramide HCl (REGLAN) 5 mg tablet Take 1 tablet by mouth four times daily. insulin needles, DISPOSABLE, (PEN NEEDLE) 31 gauge x 5/16 Use as Directed for Insulin injection lisinopril (ZESTRIL) 20 mg tablet LANTUS SOLOSTAR U-100 INSULIN 100 unit/mL (3 mL) Inject 15 Units subcutaneously daily at bedtime. blood sugar diagnostic (BLOOD GLUCOSE TEST) test strip Test blood sugar(s) 1 times daily. Dx: Type 2 DM - Uncontrolled E11.65 Insulin: No Lancets Test blood sugar(s) 1 times daily. Dx: Type 2 DM - Uncontrolled E11.65 Insulin: No No current facility-administered medications on file prior to visit. Social History Social History Tobacco Use Smoking status: Former Current packs/day: 0.00 Average packs/day: 1.5 packs/day for 25.0 years (37.5 ttl pk-yrs) Types: Cigarettes Start date: 02/04/1999 Quit date: 02/05/2024 Years since quittin.5 Vaping Use Vaping status: Never Used Substance Use Topics Alcohol use: Not Currently Drug use: Not Currently Frequency: 3.0 times per week Types: Marijuana Comment: smokes and uses edibles Review of Symptoms REVIEW OF SYSTEMS SEE HPI EXAM: BP 132/85 Pulse 97 Resp 14 Wt 71.2 kg (157 lb) General Appearance: Well appearing, alert, in no acute distress, well-hydrated, well nourished.. Lungs: Lungs clear to auscultation. No wheezing, rhonchi, rales.. Heart: RRR without murmur, gallop, or rubs. No ectopy. Abdomen: Normal abdominal exam, Abdomen soft, non-tender. Bowel sounds normal. No masses, organomegaly. Health Maintenance List Pneumococcal Vaccine(1 of 2 - PCV) Never done Depression Screening Never done Anxiety Screening Never done Covid-19 Vaccine(3 - 2023- season) due on 07/09/2024 Influenza Vaccine(1) due on 07/09/2024 HbA1C due on 10/05/2024 Urine Albumin:Creatinine Ratio due on 10/15/2024 LDL Cholesterol due on 10/15/2024 Dilated Retinal Exam due on 10/26/2024 Diabetic Foot Exam due on 02/07/2025 Annual PCP Team Chronic Disease Visit due on 05/16/2025 DTaP,Tdap,Td Vaccine(2 - Td or Tdap) due on 10/15/2033 Hepatitis C Screening Completed HIV Screening Completed HPV Vaccine Aged Out Hepatitis B Vaccine Discontinued ASSESSMENT/PLAN: 1. Nausea and vomiting, unspecified vomiting type - ICD9: 787.01, ICD10: R11.2 (primary diagnosis) -Continue reglan 2. Type 2 diabetes mellitus with peripheral neuropathy (HCC) - ICD9: 250.60, 357.2, ICD10: E11.42 - Controlled - Continue current medications - Counseled on healthy diet and regular exercise - LANTUS SOLOSTAR U-100 INSULIN 100 UNIT/ML (3 ML) SUBCUTANEOUS PEN - GABAPENTIN 100 MG CAPSULE 3. Encounter for immunization - ICD9: V03.89, ICD10: Z23 - P[employer]ER[employer]ION[employer] COVID-19 VACCINE AGE 12+ YR (COMIRNATY) 4. Hematemesis with nausea - ICD9: 578.0, 787.02, ICD10: K92.0 -Resolved, follow up with Dr. Argueta as scheduled 5. Acute gastric ulcer without hemorrhage or perforation - ICD9: 531.30, ICD10: K25.3 -Resolved, follow up with Dr. Argutea as scheduled Austin Camarena APRN.SHIPPING ASSOCIATE documented in this encounterSelect [facility]-20[facility] Medical Records Department [address] [place] [id number] Discharge Summary 08/01/24 1352 MR#: [id number] Acct: [id number] Name: WESTON GAMEZ Rep #: [id number] : 1985 38 From: Victoria Davey DO PCP: JIE Geller Status:ADM [place] Location: [place] [id number] Providers Date of Admission: 07/30/24 Date of Discharge: 08/01/24 Primary Care Physician: JIE Geller Reason For Visit: INTRACTABLE N/V GASTRITIS HEMATEMESIS Diagnosis Discharge Diagnosis (1) Diffuse abdominal pain: Status: Acute Code(s): R10.84 - Generalized abdominal pain (2) Intractable vomiting with nausea: Status: Acute Code(s): R11.2 - Nausea with vomiting, unspecified (3) Gastric ulcer: Status: Acute Code(s): K25.9 - Gastric ulcer, unspecified as acute or chronic, without hemorrhage or perforation Medications at Discharge Home Medications pen needle, diabetic 32 gauge x 5/32 (BD Ultra-Fine Lizzeth Pen Needle) #100 ea 03/29/24 insulin lispro 100 unit/mL subcutaneous pen (Humalog KwikPen (U-100) Insulin) 6 unit subcut TID dm 03/30/24 lisinopril 20 mg tablet 20 mg PO DAILY bp #30 tabs 05/01/24 blood-glucose meter,continuous (Dexcom G7 Medical Geneticist) #1 ea 05/04/24 gabapentin 100 mg capsule 200 mg PO TID pain 06/06/24 insulin pump cart,automated,BT (Omnipod 5 G6 Pods (Gen 5) subcutaneous cartridge) #10 ea 07/05/24 insulin pump cartridge,automated dose,BT with controller subcutaneous (Omnipod 5 G6 Intro Kit (Gen 5) subcutaneous cartridge with controller) #1 ea 07/05/24 blood-glucose sensor (Dexcom G6 Sensor device) #3 ea 07/27/24 blood-glucose transmitter (Dexcom G6 Transmitter device) #1 ea 07/27/24 dicyclomine 10 mg capsule 10 mg PO TID abd pain #90 caps 07/28/24 prochlorperazine maleate 10 mg tablet 10 mg PO TID PRN nausea and vomiting #30 tabs 07/28/24 scopolamine base 1 mg over 3 days transdermal patch 1 patch transdermal Q3D nausea #4 ea 07/28/24 insulin glargine-yfgn 100 unit/mL (3 mL) subcutaneous pen 12 unit subcut QHS dm 07/29/24 metoclopramide HCl 5 mg tablet (Reglan) 5 mg PO Q8H PRN PRN nausea and vomiting 7 days #21 tabs 07/29/24 amitriptyline 25 mg tablet 25 mg PO QHS #30 tabs 08/01/24 insulin glargine-yfgn 100 unit/mL (3 mL) subcutaneous pen 16 unit (0.16 mL) subcut QHS #0 mL 08/01/24 insulin lispro 100 unit/mL subcutaneous solution (Humalog U-100 Insulin) 50 unit (0.5 mL) continuous subcutaneous infusion .continuous #45 mL 08/01/24 pantoprazole 40 mg tablet,delayed release 40 mg PO BID #60 tabs 08/01/24 sucralfate 1 gram tablet 1 g PO Q6H #120 tabs 08/01/24 Hospital Course Summary of Care Provided Minutes Spent on Discharge: 38 Hospital Course: Mr. Gamez is a 38-year-old -E[place] male with a history of schizoaffective disorder, diabetes, and gastroparesis with cyclic vomiting syndrome due to previous TSH use who [facility] 07[facility]1012/28/2023 with a chief complaint of intractable nausea vomiting and abdominal pain. Has been ongoing for about 2 days prior to presentation and abdominal discomfort was diffuse and associated with nausea and emesis. He has been having regular bowel movements and passing flatus. Vital signs on presentation showed mild tachycardia but were otherwise unremarkable. CBC was overall unremarkable. VBG was performed and showed normal pH. BMP showed mild dehydration with a sodium of 132, BUN of 25 and serum creatinine 1.26. Glucose was 244. Lipase was normal at 35 and acetone was negative. Chest x-ray was unremarkable. He did have a recent CT of his abdomen pelvis on 07/28/2024 that showed thickening of the gastric wall and folds that was nonspecific and no other acute intra- abdominal abnormality. He is well-known to Dr. Argueta. He was admitted to the medical floor and placed on IV fluids, antiemetics, clear liquid diet and transition to IV Protonix twice daily. GI evaluated the patient on 07/30/2020 for and took him for endoscopy on 07/31/2024. This revealed nonsevere esophagitis with no bleeding, 2 oozing linear gastric ulcers with no stigmata of bleeding and biopsies were taken, mild patchy inflammation and erosions with granularity at the duodenal bulb where biopsies were taken. Hemostasis was achieved at the ulcer sites and it was recommended that he continue Protonix 40 mg p.o. twice daily and start amitriptyline 25 mg at at bedtime. It is felt that he is predominantly a victim of cyclic vomiting syndrome related to previous marijuana use and history of schizophrenia but there also is concerned about H. pylori infection because he had previous infection. After his EGD he was placed on a full liquid diet and tolerated this extremely well. He had no further recurrence of his nausea and vomiting. We did trial him on a regular diet prior to discharge on 08/01/2024 and he did well with this as well. We did wri (more content not included)...[facility]07-09-2024 Note* Addendum Note - Austin Camarena APRN.CNP - 05/16/2024 2:13 PM EDTAddended by: AUSTIN CAMARENA on: 05/16/2024 02:13 PM Modules accepted: Orders [facility]07-09-2024 Miscellaneous Notes* Addendum Note - Austin Camarena APRN.CNP - 05/16/2024 2:13 PM EDTAddended by: AUSTIN CAMARENA on: 05/16/2024 02:13 PM Modules accepted: Orders [facility] [place] History of Present illness Narrative* Austin Camarena APRN.CNP - 05/16/2024 1:45 PM EDT Chief Complaint Patient presents with: ER F/U HPI Weston Gamez is a 38 year old male who presents here today for Above Complaints.. Patient presents for ER follow up. Patient was seen in [place] [facility] and [place] [facility] for continued lower abdominal pain and all tests were negative. Patient has seen Dr. Argueta in the past and has a follow up June 06. Past medical history, appointments, medications, allergies reviewed. Previous Medical History PAST MEDICAL HISTORY Diagnosis Date Bipolar 1 disorder (HCC) DM (diabetes mellitus), type 2 (HCC) NEGATIVE MEDICAL HISTORY Previous Surgical History PAST SURGICAL HISTORY Procedure Laterality Date NONE Family History FAMILY HISTORY Problem Relation Age of Onset Hypertension Father Heart Father Hypertension Mother Diabetes Mother No Ocular Disease No Family History Patient Allergies ALLERGIES No Known Allergies Current Medications Current Outpatient Medications on File Prior to Visit Medication Sig gabapentin (NEURONTIN) 100 mg capsule Take 1 capsule by mouth three times a day for [address] (PROTONIX) 40 mg tablet Take 1 tablet by mouth two times a day. Take on empty stomach, 1/2 hr before meal. metoclopramide HCl (REGLAN) 5 mg tablet Take 1 tablet by mouth four times daily. insulin needles, DISPOSABLE, (PEN NEEDLE) 31 gauge x 5/16 Use as Directed for Insulin injection lisinopril (ZESTRIL) 20 mg tablet LANTUS SOLOSTAR U-100 INSULIN 100 unit/mL (3 mL) Inject 15 Units subcutaneously daily at bedtime. blood sugar diagnostic (BLOOD GLUCOSE TEST) test strip Test blood sugar(s) 1 times daily. Dx: Type 2 DM - Uncontrolled E11.65 Insulin: No Lancets Test blood sugar(s) 1 times daily. Dx: Type 2 DM - Uncontrolled E11.65 Insulin: No No current facility-administered medications on file prior to visit. Social History Social History Tobacco Use Smoking status: Former Packs/day: 1.50 Years: 25.00 Additional pack years: 0.00 Total pack years: 37.50 Types: Cigarettes Quit date: 02/05/2024 Years since quittin.2 Vaping Use Vaping Use: Never used Substance Use Topics Alcohol use: Not Currently Drug use: Not Currently Frequency: 3.0 times per week Types: Marijuana Comment: smokes and uses edibles Review of Symptoms REVIEW OF SYSTEMS SEE HPI EXAM: BP 101/64 Pulse 103 Resp 14 Wt 66.2 kg (146 lb) General Appearance: Well appearing, alert, in no acute distress, well-hydrated, well nourished. Lungs: Lungs clear to auscultation. No wheezing, rhonchi, rales.. Heart: RRR without murmur, gallop, or rubs. No ectopy. Abdomen: Normal abdominal exam, Abdomen soft, non-tender. Bowel sounds normal. No masses, organomegaly. Health Maintenance List Pneumococcal Vaccine(1 of 2 - PCV) Never done Covid-19 Vaccine(3 - 2022-) due on 07/09/2023 Behavioral Health Screening Never done HbA1C due on 04/28/2024 Influenza Vaccine(1) due on 07/09/2024 Urine Albumin:Creatinine Ratio due on 10/15/2024 LDL Cholesterol due on 10/15/2024 Dilated Retinal Exam due on 10/26/2024 Annual PCP Team Chronic Disease Visit due on 02/02/2025 Diabetic Foot Exam due on 02/07/2025 DTaP,Tdap,Td Vaccine(2 - Td or Tdap) due on 10/15/2033 Hepatitis C Screening Completed HIV Screening Completed HPV Vaccine Aged Out Hepatitis B Vaccine Discontinued ASSESSMENT/PLAN: 1. Nausea and vomiting, unspecified vomiting type - ICD9: 787.01, ICD10: R11.2 -Continue reglan -Follow up with Dr. Argueta 06/06 2. Diabetes 1.5, managed as type 2 (HCC) - ICD9: 250.00, ICD10: E13.9 - Uncontrolled - Improving control - Continue current medications - Counseled on healthy diet and regular exercise - Discussed need for and benefit of weight loss. BMI 24.18 kg/(m^2) 3. Elevated LDL cholesterol level - ICD9: 272.0, ICD10: E78.00 - ROSUVASTATIN 5 MG TABLET Austin Camarena APRN.SHIPPING ASSOCIATE documented in [facility] [place] Hospital Discharge instructions Patient Education 05/05/2024 15:24:55 Diet for Vomiting or Diarrhea (Adult) Diet for Vomiting or Diarrhea (Adult) Your symptoms may return or get worse after eating certain foods listed below. If this happens, stop eating these foods until your symptoms ease and you feel better. Once the vomiting stops, follow the steps below. During the first 12 to 24 hours During the first 12 to 24 hours, follow this diet: Drinks. Plain water, sport drinks like electrolyte solutions, soft drinks without caffeine, mineralwater (plain or flavored), clear fruit juices, and decaffeinated tea and coffee. Soups. Clear broth. Desserts. Plain gelatin, popsicles, and fruit juice bars. As you feel better, you may add 6 to 8 ounces of yogurt per day. If you have diarrhea, don't have foods or drinks that contain sugar, high-fructose corn syrup, or sugar alcohols. During the next 24 hours During the next 24 hours you may add the following to the above: Hot cereal, plain toast, bread, rolls, and crackers Plain noodles, rice, mashed potatoes, and chicken noodle or rice soup Unsweetened canned fruit (but not pineapple) and bananas Don't eat more than 15 grams of fat a day. Do this by staying away from margarine, butter, oils, mayonnaise, sauces, gravies, fried foods, peanut butter, meat, poultry, and fish. Don't eat much fiber. Stay away from raw or cooked vegetables, fresh fruits (except bananas), and bran cereals. Limit how much caffeine and chocolate you have. Do not use any spices or seasonings except salt. During the next 24 hours Slowly go back to your normal diet, as you feel better and your symptoms ease. 1165-3472 The [employer]. [address] [place] [address], [place] [address]. All rights reserved. This information is not intended as a substitute for professional medical care. Always follow yourhealthcare professional's instructions. Follow Up Care 05/05/2024 13:23:55 With:[facility] Address: [address] [place] [phone] When:2-4 days [facility] 06-28-2024 Note Discharge Instructions Thank you for allowing [facility] to assist you with your healthcare needs. The following is importantdischarge information regarding your hospital visit. Diagnosis from Today's Visit Nausea What to Do Next Instructions from Your Care Team No qualifying data available. Post Acute Orders No qualifying data available. You Need to Schedule the Following Appointments Follow Up with [facility] When:Within 2-4 days Where:[address] [place] [phone] Allergies NKA Medications Please ask your primary doctor or pharmacist before taking any other medication not listed, including over the counter drugs, herbal medications, vitamins and or supplements as they may interact withyour home medications. What How Much When Why Instructions Last Dose New ondansetron (Zofran 4 mg oral tablet) 1 tab(s) by mouth Every 6 hours as needed for Nausea/Vomiting Printed Prescription Unchanged benztropine (Cogentin) 1 Milligram by mouth Two (2) times a day Unchanged escitalopram (Lexapro 10 mg oral tablet) 1 tab(s) by mouth Once a day Unchanged metFORMIN (metFORMIN 500 mg oral tablet, extended release) 2 tab(s) by mouth Two (2) times a day DM2, uncontrolled. A1c 14.9% Unchanged nicotine (Nicoderm CQ patch 21-14-7mg TAPER (Disch Rx)) Transdermal Every 24 hours Unchanged perphenazine (perphenazine 4 mg oral tablet) 1 tab(s) by mouth Three (3) times a day Unchanged traZODone (traZODone 50 mg oral tablet) 1 tab(s) by mouth Daily at bedtime as needed for Sleep / Insomnia Please take this list to your next doctor s visit. Bring all medications you take, including over the counter medications, herbals and other supplements with you to your doctor s visit. Patients and families are reminded to discard old lists and to update any records with all medication providers or retail pharmacies. Medication Leaflets ondansetron (oral) (on JODIE vivar) What is the most important information I should know about ondansetron? You should not use ondansetron if you are also using apomorphine (Apokyn). What is ondansetron? Ondansetron blocks the actions of chemicals in the body that can trigger nausea and vomiting. Ondansetron is used to prevent nausea and vomiting that may be caused by surgery, cancer chemotherapy, or radiation treatment. Ondansetron may be used for purposes not listed in this medication guide. What should I discuss with my health care provider before taking ondansetron? You should not use ondansetron if: you are also using apomorphine (Apokyn); or you are allergic to ondansetron or similar medicines (dolasetron, granisetron, palonosetron). To make sure ondansetron is safe for you, tell your doctor if you have: liver disease; an electrolyte imbalance (such as low levels of potassium or magnesium in your blood); congestive heart failure, slow heartbeats; a personal or family history of long QT syndrome; or a blockage in your digestive tract (stomach or intestines). Ondansetron is not expected to harm an unborn baby. Tell your doctor if you are . It is not known whether ondansetron passes into breast milk or if it could harm a nursing baby. Tell your doctor if you are breast-feeding a baby. Ondansetron is not approved for use by anyone younger than 4 years old. Ondansetron orally disintegrating tablets may contain phenylalanine. Tell your doctor if you have phenylketonuria (PKU). How should I take ondansetron? Follow all directions on your prescription label. Do not take this medicine in larger or smaller amounts or for longer than recommended. Ondansetron can be taken with or without food. The first dose of ondansetron is usually taken before the start of your surgery, chemotherapy, or radiation treatment. Follow your doctor's dosing instructions very carefully. Take the ondansetron regular tablet with a full glass of water. To take the orally disintegrating tablet (Zofran ODT): Keep the tablet in its blister pack until you are ready to take it. Open the package and peel back the foil. Do not push a tablet through the foil or you may damage the tablet. Use dry hands to remove the tablet and place it in your mouth. Do not swallow the tablet whole. Allow it to dissolve in your mouth without chewing. Swallow several times as the tablet dissolves. To use ondansetron oral soluble film (strip) (Zuplenz): Keep the strip in the foil pouch until you are ready to use the medicine. Using dry hands, remove the strip and place it on your tongue. It will begin to dissolve right away. Do not swallow the strip whole. Allow it to dissolve in your mouth without chewing. Swallow several times after the strip dissolves. If desired, you may drink liquid to help swallow the dissolved strip. Wash your hands after using Zuplenz. Measure liquid medicine with the dosing syringe provided, or with a special dose-measuring spoon ormedicine cup. If you do not have a dose-measuring device, ask your pharmacist for one. Store at room temperature away from moisture, heat, and light. Store liquid medicine in an upright position. What happens if I miss a dose? Take the missed dose as soon as you remember. Skip the missed dose if it is almost time for your next scheduled dose. Do not take extra medicine to make up the missed dose. What happens if I overdose? Seek emergency medical attention or call the Poison Help line at . Overdose symptoms may include sudden loss of vision, severe constipation, feeling light-headed, or fainting. What should I avoid while taking ondansetron? Ondansetron may impair your thinking or reactions. Be careful if you drive or do anything that requires you to be alert. What are the possible side effects of ondansetron? Get emergency medical help if you have signs of an allergic reaction: rash, hives; fever, chills, difficult breathing; swelling of your face, lips, tongue, or throat. Call your doctor at once if you have: severe constipation, stomach pain, or bloating; headache with chest pain and severe dizziness, fainting, fast or pounding heartbeats; fast or pounding heartbeats; jaundice (yellowing of the skin or eyes); blurred vision or temporary vision loss (lasting from only a few minutes to several hours); high levels of serotonin in the body--agitation, hallucinations, fever, fast heart rate, overactivereflexes, nausea, vomiting, diarrhea, loss of coordination, fainting. Common side effects may include: diarrhea or constipation; headache; drowsiness; or tired feeling. This is not a complete list of side effects and others may occur. Call your doctor for medical advice about side effects. You may report side effects to FDA at 3-855-XGB-8449. What other drugs will affect ondansetron? Ondansetron can cause a serious heart problem, especially if you use certain medicines at the same time, including antibiotics, antidepressants, heart rhythm medicine, antipsychotic medicines, and medicines to treat cancer, malaria, HIV or AIDS. Tell your doctor about all medicines you use, and those you start or stop using during your treatment with ondansetron. Taking ondansetron while you are using certain other medicines can cause high levels of serotonin to build up in your body, a condition called 'serotonin syndrome,' which can be fatal. Tell your doctor if you also use: medicine to treat depression; medicine to treat a psychiatric disorder; a narcotic (opioid) medication; or medicine to prevent nausea and vomiting. This list is not complete and many other drugs can interact with ondansetron. This includes prescription and rwir-wob-cshgdfo medicines, vitamins, and herbal products. Give a list of all your medicines to any healthcare provider who treats you. Where can I get more information? Your pharmacist can provide more information about ondansetron. Remember, keep this and all other medicines out of the reach of children, never share your medicines with others, and use this medication only for the indication prescribed. Every effort has been made to ensure that the information provided by [employer]. ('[employer]') is accurate, up-to-date, and complete, but no guarantee is made to that effect. Drug information contained herein may be time sensitive. [employer] information has been compiled for use by healthcare practitioners and consumers in the [place] and therefore [employer] does not warrant that uses outside of the [place] are appropriate, unless specifically indicated otherwise. [employer] drug information does not endorse drugs, diagnose patients or recommend therapy. [employer] drug information isan informational resource designed to assist licensed healthcare practitioners in caring for their p atients and/or to serve consumers viewing this service as a supplement to, and not a substitute for, the expertise, skill, knowledge and judgment of healthcare practitioners. The absence of a warningfor a given drug or drug combination in no way should be construed to indicate that the drug or drug combination is safe, effective or appropriate for any given patient. [employer] does not assume any responsibility for any aspect of healthcare administered with the aid of information [employer] provides. The information contained herein is not intended to cover all possible uses, directions, precautions, warnings, drug interactions, allergic reactions, or adverse effects. If you have questions about the drugs you are taking, check with your doctor, nurse or pharmacist. Copyright 0735-0063 [employer]. Version: 16.. Revision Date: 06/10/2023. Education Materials Diet for Vomiting or Diarrhea (Adult) Your symptoms may return or get worse after eating certain foods listed below. If this happens, stop eating these foods until your symptoms ease and you feel better. Once the vomiting stops, follow the steps below. During the first 12 to 24 hours During the first 12 to 24 hours, follow this diet: Drinks. Plain water, sport drinks like electrolyte solutions, soft drinks without caffeine, mineralwater (plain or flavored), clear fruit juices, and decaffeinated tea and coffee. Soups. Clear broth. Desserts. Plain gelatin, popsicles, and fruit juice bars. As you feel better, you may add 6 to 8 ounces of yogurt per day. If you have diarrhea, don't have foods or drinks that contain sugar, high-fructose corn syrup, or sugar alcohols. During the next 24 hours During the next 24 hours you may add the following to the above: Hot cereal, plain toast, bread, rolls, and crackers Plain noodles, rice, mashed potatoes, and chicken noodle or rice soup Unsweetened canned fruit (but not pineapple) and bananas Don't eat more than 15 grams of fat a day. Do this by staying away from margarine, butter, oils, mayonnaise, sauces, gravies, fried foods, peanut butter, meat, poultry, and fish. Don't eat much fiber. Stay away from raw or cooked vegetables, fresh fruits (except bananas), and bran cereals. Limit how much caffeine and chocolate you have. Do not use any spices or seasonings except salt. During the next 24 hours Slowly go back to your normal diet, as you feel better and your symptoms ease. 7619-8256 The [employer]. [address] [place] [address]. All rights reserved. This information is not intended as a substitute for professional medical care. Always follow yourhealthcare professional's instructions. Additional Information VACCINATE! IT SAVES LIVES! Members of the community who have not yet received the COVID-19 vaccine and would like to receive it can visit one of [facility] vaccine clinics. There are many vaccine clinic locations within the [facility]. For locations and available times, please visit www.[email or web address]/. It is important to note that some COVID mobile vaccine clinics are held outdoors and may be canceled in rainy or stormy conditions. To learn more about pediatric vaccinations (ages 5-11), we invite you to visit the [facility] webpage. [email or web address]/[email or web address] learn more about the COVID-19 vaccine, we invite you to visit the CDC website for a list of frequently asked questions. https://www.cdc.gov/coronavirus/2019-ncov/vaccines/faq.html [facility] Patient Portal Access Instructions: Stay connected with your healthcare team and access your personal medical information anytime with the [facility] Patient Portal. If you would like a full copy of your medical records please contact the [facility] Medical Records Department Wednesday through Wednesday between 8a.m. and 4:30p.m. Please follow the directions below to access the portal: 1.Access the email account you provided upon registration to the [facility].2.Look for an invitation email from [facility].3.Open the email and access the invitation link: Accept Invitation to [facility]4.Fill in the required orona to create your account. Sign into [email or web address] with your username and password that you created in the above steps to stay up to date. You can then view a summary of results, a summary of your visits, and the ability to download your summaries to your computer or send the information securely to a physician. Remember that your healthcare information is confidential, so carefully consider who you will allow to register on the [facility] [employer] Patient Portal for access to your information. You can also access the [facility] Patient Portal on the Music Messenger (MM) tita. Simply click on Health Records under HealthData and then click on the [facility] logo. HOW TO SAFELY DISPOSE OF PRESCRIPTION MEDICATIONS Please use one of the following methods to safely dispose of your unused medications. 1.Use a drug disposal kit: the drug disposal pouch allows you to safely discard your old and unuseddrugs. Ask your nurse to give you one when you are discharged.2.Visit a local take-back location: Many local pharmacies and police departments have programs that collect old and unwanted prescriptiondrugs. Call your local pharmacy or go to http://bit.ly/1X2Zj1h to find one close to you.3.Make use of household items: Use cat litter or old coffee grounds to dispose medications if other options arenot available. Mix your drugs with these household products, seal them in an airtight container andthrow it into the garbage. Call [facility]: [phone] to be sure your drugs can be disposed of in this way. Some medicines may require a different approach.4.Never flush your medications down the toilet. IF YOU HAVE BEEN PRESCRIBED AN OPIOIDS FOR PAIN If you have been prescribed an opioid (such as hydrocodone, oxycodone or morphine), it is critical to understand the possible side effects and risks of opioid pain medications. Even when taken as directed, opioids can have several side effects including: Tolerance, meaning you might need to take more of a medication for the same pain relief. Nausea, vomiting and/or constipation. Sleepiness, dizziness, dry mouth, confusion, depression or itching. Physical dependence, meaning you have withdrawal symptoms when a medication is stopped ? this can develop within a few days. KNOW YOUR RESPONSIBILITIES It is important to know exactly how much and how often to take the opioid pain medications you are prescribed. Never take opioids in higher amounts or more often than prescribed. Do not combine opioids with alcohol or other drugs that cause drowsiness, such as benzodiazepines, also known as benzos,including diazepam and alprazolam, muscle relaxants or sleep aids. Never sell or share prescriptionopioids. This is illegal. Store opioids in a secure place and out of reach of others (including children, family, friends and visitors). The last page(s) of this document has been signed and retained as a CHART COPY Signatures Patient Education Materials Diet for Vomiting or Diarrhea (Adult) Medication Leaflets ondansetron (oral) My discharge plan and instructions have been reviewed and explained to me and I,WESTON GAMEZ understand my current condition and have read and understand these discharge instructions. I have received a written copy of the plan/instructions. If I have questions, I am aware that I should contact my doctor. Patient/Chief Of Police Signature: Date/Time: Relationship to Patient: Witness Name/Signature: Date/Time: [facility]06-28-2024 Note Discharge Instructions Thank you for allowing [facility] to assist you with your healthcare needs. The following is importantdischarge information regarding your hospital visit. Diagnosis from Today's Visit Nausea What to Do Next Instructions from Your Care Team No qualifying data available. Post Acute Orders No qualifying data available. You Need to Schedule the Following Appointments Follow Up with [facility] When:Within 2-4 days Where:[address] [place] [phone] Allergies NKA Medications Please ask your primary doctor or pharmacist before taking any other medication not listed, including over the counter drugs, herbal medications, vitamins and or supplements as they may interact withyour home medications. What How Much When Why Instructions Last Dose New ondansetron (Zofran 4 mg oral tablet) 1 tab(s) by mouth Every 6 hours as needed for Nausea/Vomiting Printed Prescription Unchanged benztropine (Cogentin) 1 Milligram by mouth Two (2) times a day Unchanged escitalopram (Lexapro 10 mg oral tablet) 1 tab(s) by mouth Once a day Unchanged metFORMIN (metFORMIN 500 mg oral tablet, extended release) 2 tab(s) by mouth Two (2) times a day DM2, uncontrolled. A1c 14.9% Unchanged nicotine (Nicoderm CQ patch 21-14-7mg TAPER (Disch Rx)) Transdermal Every 24 hours Unchanged perphenazine (perphenazine 4 mg oral tablet) 1 tab(s) by mouth Three (3) times a day Unchanged traZODone (traZODone 50 mg oral tablet) 1 tab(s) by mouth Daily at bedtime as needed for Sleep / Insomnia Please take this list to your next doctor s visit. Bring all medications you take, including over the counter medications, herbals and other supplements with you to your doctor s visit. Patients and families are reminded to discard old lists and to update any records with all medication providers or retail pharmacies. Medication Leaflets ondansetron (oral) (on JODIE vivar) What is the most important information I should know about ondansetron? You should not use ondansetron if you are also using apomorphine (Apokyn). What is ondansetron? Ondansetron blocks the actions of chemicals in the body that can trigger nausea and vomiting. Ondansetron is used to prevent nausea and vomiting that may be caused by surgery, cancer chemotherapy, or radiation treatment. Ondansetron may be used for purposes not listed in this medication guide. What should I discuss with my health care provider before taking ondansetron? You should not use ondansetron if: you are also using apomorphine (Apokyn); or you are allergic to ondansetron or similar medicines (dolasetron, granisetron, palonosetron). To make sure ondansetron is safe for you, tell your doctor if you have: liver disease; an electrolyte imbalance (such as low levels of potassium or magnesium in your blood); congestive heart failure, slow heartbeats; a personal or family history of long QT syndrome; or a blockage in your digestive tract (stomach or intestines). Ondansetron is not expected to harm an unborn baby. Tell your doctor if you are . It is not known whether ondansetron passes into breast milk or if it could harm a nursing baby. Tell your doctor if you are breast-feeding a baby. Ondansetron is not approved for use by anyone younger than 4 years old. Ondansetron orally disintegrating tablets may contain phenylalanine. Tell your doctor if you have phenylketonuria (PKU). How should I take ondansetron? Follow all directions on your prescription label. Do not take this medicine in larger or smaller amounts or for longer than recommended. Ondansetron can be taken with or without food. The first dose of ondansetron is usually taken before the start of your surgery, chemotherapy, or radiation treatment. Follow your doctor's dosing instructions very carefully. Take the ondansetron regular tablet with a full glass of water. To take the orally disintegrating tablet (Zofran ODT): Keep the tablet in its blister pack until you are ready to take it. Open the package and peel back the foil. Do not push a tablet through the foil or you may damage the tablet. Use dry hands to remove the tablet and place it in your mouth. Do not swallow the tablet whole. Allow it to dissolve in your mouth without chewing. Swallow several times as the tablet dissolves. To use ondansetron oral soluble film (strip) (Zuplenz): Keep the strip in the foil pouch until you are ready to use the medicine. Using dry hands, remove the strip and place it on your tongue. It will begin to dissolve right away. Do not swallow the strip whole. Allow it to dissolve in your mouth without chewing. Swallow several times after the strip dissolves. If desired, you may drink liquid to help swallow the dissolved strip. Wash your hands after using Zuplenz. Measure liquid medicine with the dosing syringe provided, or with a special dose-measuring spoon ormedicine cup. If you do not have a dose-measuring device, ask your pharmacist for one. Store at room temperature away from moisture, heat, and light. Store liquid medicine in an upright position. What happens if I miss a dose? Take the missed dose as soon as you remember. Skip the missed dose if it is almost time for your next scheduled dose. Do not take extra medicine to make up the missed dose. What happens if I overdose? Seek emergency medical attention or call the Poison Help line at . Overdose symptoms may include sudden loss of vision, severe constipation, feeling light-headed, or fainting. What should I avoid while taking ondansetron? Ondansetron may impair your thinking or reactions. Be careful if you drive or do anything that requires you to be alert. What are the possible side effects of ondansetron? Get emergency medical help if you have signs of an allergic reaction: rash, hives; fever, chills, difficult breathing; swelling of your face, lips, tongue, or throat. Call your doctor at once if you have: severe constipation, stomach pain, or bloating; headache with chest pain and severe dizziness, fainting, fast or pounding heartbeats; fast or pounding heartbeats; jaundice (yellowing of the skin or eyes); blurred vision or temporary vision loss (lasting from only a few minutes to several hours); high levels of serotonin in the body--agitation, hallucinations, fever, fast heart rate, overactivereflexes, nausea, vomiting, diarrhea, loss of coordination, fainting. Common side effects may include: diarrhea or constipation; headache; drowsiness; or tired feeling. This is not a complete list of side effects and others may occur. Call your doctor for medical advice about side effects. You may report side effects to FDA at 5-967-HNN-9458. What other drugs will affect ondansetron? Ondansetron can cause a serious heart problem, especially if you use certain medicines at the same time, including antibiotics, antidepressants, heart rhythm medicine, antipsychotic medicines, and medicines to treat cancer, malaria, HIV or AIDS. Tell your doctor about all medicines you use, and those you start or stop using during your treatment with ondansetron. Taking ondansetron while you are using certain other medicines can cause high levels of serotonin to build up in your body, a condition called 'serotonin syndrome,' which can be fatal. Tell your doctor if you also use: medicine to treat depression; medicine to treat a psychiatric disorder; a narcotic (opioid) medication; or medicine to prevent nausea and vomiting. This list is not complete and many other drugs can interact with ondansetron. This includes prescription and [id number] medicines, vitamins, and herbal products. Give a list of all your medicines to any healthcare provider who treats you. Where can I get more information? Your pharmacist can provide more information about ondansetron. Remember, keep this and all other medicines out of the reach of children, never share your medicines with others, and use this medication only for the indication prescribed. Every effort has been made to ensure that the information provided by [employer]. ('[employer]') is accurate, up-to-date, and complete, but no guarantee is made to that effect. Drug information contained herein may be time sensitive. [employer] information has been compiled for use by healthcare practitioners and consumers in the [place] and therefore [employer] does not warrant that uses outside of the [place] are appropriate, unless specifically indicated otherwise. [employer] drug information does not endorse drugs, diagnose patients or recommend therapy. [employer] drug information isan informational resource designed to assist licensed healthcare practitioners in caring for their p atients and/or to serve consumers viewing this service as a supplement to, and not a substitute for, the expertise, skill, knowledge and judgment of healthcare practitioners. The absence of a warningfor a given drug or drug combination in no way should be construed to indicate that the drug or drug combination is safe, effective or appropriate for any given patient. [employer] does not assume any responsibility for any aspect of healthcare administered with the aid of information [employer] provides. The information contained herein is not intended to cover all possible uses, directions, precautions, warnings, drug interactions, allergic reactions, or adverse effects. If you have questions about the drugs you are taking, check with your doctor, nurse or pharmacist. Copyright 6577-4854 [employer]. Version: 16.. Revision Date: 06/10/2023. Education Materials Diet for Vomiting or Diarrhea (Adult) Your symptoms may return or get worse after eating certain foods listed below. If this happens, stop eating these foods until your symptoms ease and you feel better. Once the vomiting stops, follow the steps below. During the first 12 to 24 hours During the first 12 to 24 hours, follow this diet: Drinks. Plain water, sport drinks like electrolyte solutions, soft drinks without caffeine, mineralwater (plain or flavored), clear fruit juices, and decaffeinated tea and coffee. Soups. Clear broth. Desserts. Plain gelatin, popsicles, and fruit juice bars. As you feel better, you may add 6 to 8 ounces of yogurt per day. If you have diarrhea, don't have foods or drinks that contain sugar, high-fructose corn syrup, or sugar alcohols. During the next 24 hours During the next 24 hours you may add the following to the above: Hot cereal, plain toast, bread, rolls, and crackers Plain noodles, rice, mashed potatoes, and chicken noodle or rice soup Unsweetened canned fruit (but not pineapple) and bananas Don't eat more than 15 grams of fat a day. Do this by staying away from margarine, butter, oils, mayonnaise, sauces, gravies, fried foods, peanut butter, meat, poultry, and fish. Don't eat much fiber. Stay away from raw or cooked vegetables, fresh fruits (except bananas), and bran cereals. Limit how much caffeine and chocolate you have. Do not use any spices or seasonings except salt. During the next 24 hours Slowly go back to your normal diet, as you feel better and your symptoms ease. 2898-8808 The [employer]. [address] [place] [address], [place] [address]. All rights reserved. This information is not intended as a substitute for professional medical care. Always follow yourhealthcare professional's instructions. Additional Information VACCINATE! IT SAVES LIVES! Members of the community who have not yet received the COVID-19 vaccine and would like to receive it can visit one of [facility] vaccine clinics. There are many vaccine clinic locations within the [facility]. For locations and available times, please visit [email or web address]/. It is important to note that some COVID mobile vaccine clinics are held outdoors and may be canceled in rainy or stormy conditions. To learn more about pediatric vaccinations (ages 5-11), we invite you to visit the [facility] webpage. [email or web address]/[email or web address] [email or web address] learn more about the COVID-19 vaccine, we invite you to visit the CDC website for a list of frequently asked questions. https://www.cdc.gov/coronavirus/2019-ncov/vaccines/faq.html [facility] Patient Portal Access Instructions: Stay connected with your healthcare team and access your personal medical information anytime with the [facility] Patient Portal. If you would like a full copy of your medical records please contact the [facility] Medical Records Department Wednesday through Wednesday between 8a.m. and 4:30p.m. Please follow the directions below to access the portal: 1.Access the email account you provided upon registration to the hospital.2.Look for an invitation email from [facility].3.Open the email and access the invitation link: Accept Invitation to [facility]4.Fill in the required orona to create your account. Sign into www.[employer] with your username and password that you created in the above steps to stay up to date. You can then view a summary of results, a summary of your visits, and the ability to download your summaries to your computer or send the information securely to a physician. Remember that your healthcare information is confidential, so carefully consider who you will allow to register on the [facility] Patient Portal for access to your information. You can also access the [facility] Patient Portal on the Music Messenger (MM) tita. Simply click on Health Records under [employer] and then click on the [facility] logo. HOW TO SAFELY DISPOSE OF PRESCRIPTION MEDICATIONS Please use one of the following methods to safely dispose of your unused medications. 1.Use a drug disposal kit: the drug disposal pouch allows you to safely discard your old and unuseddrugs. Ask your nurse to give you one when you are discharged.2.Visit a local take-back location: Many local pharmacies and police departments have programs that collect old and unwanted prescriptiondrugs. Call your local pharmacy or go to http://[employer]WizeHive/0M1Ua7d to find one close to you.3.Make use of household items: Use cat litter or old coffee grounds to dispose medications if other options arenot available. Mix your drugs with these household products, seal them in an airtight container andthrow it into the garbage. Call [facility]: [phone] to be sure your drugs can be disposed of in this way. Some medicines may require a different approach.4.Never flush your medications down the toilet. IF YOU HAVE BEEN PRESCRIBED AN OPIOIDS FOR PAIN If you have been prescribed an opioid (such as hydrocodone, oxycodone or morphine), it is critical to understand the possible side effects and risks of opioid pain medications. Even when taken as directed, opioids can have several side effects including: Tolerance, meaning you might need to take more of a medication for the same pain relief. Nausea, vomiting and/or constipation. Sleepiness, dizziness, dry mouth, confusion, depression or itching. Physical dependence, meaning you have withdrawal symptoms when a medication is stopped ? this can develop within a few days. KNOW YOUR RESPONSIBILITIES It is important to know exactly how much and how often to take the opioid pain medications you are prescribed. Never take opioids in higher amounts or more often than prescribed. Do not combine opioids with alcohol or other drugs that cause drowsiness, such as benzodiazepines, also known as benzos,including diazepam and alprazolam, muscle relaxants or sleep aids. Never sell or share prescriptionopioids. This is illegal. Store opioids in a secure place and out of reach of others (including children, family, friends and visitors). The last page(s) of this document has been signed and retained as a CHART COPY Signatures Patient Education Materials Diet for Vomiting or Diarrhea (Adult) Medication Leaflets ondansetron (oral) My discharge plan and instructions have been reviewed and explained to me and I,WESTON GAMEZ understand my current condition and have read and understand these discharge instructions. I have received a written copy of the plan/instructions. If I have questions, I am aware that I should contact my doctor. Patient/Chief Of Police Signature: Date/Time: Relationship to Patient: Witness Name/Signature: Date/Time: [facility]06-25-2024 Telephone encounter Note* Telephone Encounter - Emelia Sanchez - 05/02/2024 12:22 PM EDT Patient has called back and scheduled a follow up with Austin on 05/16/2024+20 minute follow up. Ifthis is to be a yearly physical please advise so we can call back to reschedule to 40 minutes. Patient advised he sees an electrical unit rebuilder across the street at [facility]. [facility]06-25-2024 Miscellaneous Notes* Telephone Encounter - Emelia Sanchez - 05/02/2024 12:22 PM EDT Patient has called back and scheduled a follow up with Austin on 05/16/2024+20 minute follow up. Ifthis is to be a yearly physical please advise so we can call back to reschedule to 40 minutes. Patient advised he sees an electrical unit rebuilder [place] the [place] at [facility]. * Telephone Encounter - Martina Still OCCA - 05/02/2024 8:45 AM EDT TC no answer. Left VM to return call. BO Ny * Telephone Encounter - Lupillo Thayer MD - 05/01/2024 10:10 PM EDT Patient needs routine appt with Austin in May. Also advise him he needs to reschedule his appt with endocrine that he cancelled for the management of his poorly controlled diabetes. The following approved medication requests have been transmitted electronically. Requested Prescriptions Signed Prescriptions Disp Refills gabapentin (NEURONTIN) 100 mg capsule 90 capsule 0 Sig: Take 1 capsule by mouth three times a day for 30 days. Authorizing Provider: LUPILLO THAYER MD * Telephone Encounter - Martina Still OCCA - 05/01/2024 9:33 AM EDT Prescription Refill Information The patient has been identified by name and date of : Yes Caregiver verified no other encounters exist for this prescription request: Yes Caregiver confirmed with patient/requestor that no other refills are due, in the near future, with this provider at this time: Yes The last office visit in the department: 02/03/2024 Does the patient have a future office visit with this provider/department: No Requested Prescriptions Pending Prescriptions Disp Refills gabapentin (NEURONTIN) 100 mg capsule 90 capsule 2 Sig: Take 1 capsule by mouth three times a day for 90 days. BO Ny May 01, 2024 9:33 AM [facility] Telephone encounter Note * Telephone Encounter - Martina Still OCCA - 05/02/2024 8:45 AM EDT TC no answer. Left VM to return call. BO Ny [facility]06-24-2024 Telephone encounter Note* Telephone Encounter - Lupillo Thayer MD - 05/01/2024 10:10 PM EDT Patient needs routine appt with Austin in May. Also advise him he needs to reschedule his appt with endocrine that he cancelled for the management of his poorly controlled diabetes. The following approved medication requests have been transmitted electronically. Requested Prescriptions Signed Prescriptions Disp Refills gabapentin (NEURONTIN) 100 mg capsule 90 capsule 0 Sig: Take 1 capsule by mouth three times a day for 30 days. Authorizing Provider: LUPILLO THAYER MD [facility]06-24-2024 Telephone encounter Note* Telephone Encounter - Lupillo Thayer MD - 05/01/2024 4:40 PM EDT The following approved medication requests have been transmitted electronically. Requested Prescriptions Signed Prescriptions Disp Refills pantoprazole DR (PROTONIX) 40 mg tablet 60 tablet 5 Sig: Take 1 tablet by mouth two times a day. Take on empty stomach, 1/2 hr before meal. metoclopramide HCl (REGLAN) 5 mg tablet 120 tablet 5 Sig: Take 1 tablet by mouth four times daily. Lupillo Thayer MD [facility]06-24-2024 Miscellaneous Notes* Telephone Encounter - Lupillo Thayer MD - 05/01/2024 4:40 PM EDT The following approved medication requests have been transmitted electronically. Requested Prescriptions Signed Prescriptions Disp Refills pantoprazole DR (PROTONIX) 40 mg tablet 60 tablet 5 Sig: Take 1 tablet by mouth two times a day. Take on empty stomach, 1/2 hr before meal. metoclopramide HCl (REGLAN) 5 mg tablet 120 tablet 5 Sig: Take 1 tablet by mouth four times daily. Lupillo Thayer MD * Telephone Encounter - Morelia Daniel MA - 05/01/2024 4:23 PM EDT Sent a my chart message early today to the patient. I did note in the most recent endocrinology record. Metoclopramide 5 mg every 6 hours Protonix 40 mg BID. Morelia Daniel MA * Telephone Encounter - Lupillo Thayer MD - 05/01/2024 4:16 PM EDT Let patient know since we did not proscribe this meds and Austin says to continue them I need thestrength he is on and how often he takes them. * Telephone Encounter - Morelia Daniel MA - 05/01/2024 12:39 PM EDT I reviewed the chart and it looks like patient was put on this medication from an hospital visit from 01/2024. [facility] Telephone encounter Note * Telephone Encounter - Morelia Daniel MA - 05/01/2024 4:23 PM EDT Sent a [place] chart message early today to the patient. I did note in the most recent endocrinology record. Metoclopramide 5 mg every 6 hours Protonix 40 mg BID. Morelia Daniel MA [facility]06-24-2024 Telephone encounter Note* Telephone Encounter - Lupillo Thayer MD - 05/01/2024 4:16 PM EDT Let patient know since we did not proscribe this meds and Austin says to continue them I need thestrength he is on and how often he takes them. [facility]06-24-2024 Telephone encounter Note* Telephone Encounter - Morelia Daniel MA - 05/01/2024 12:39 PM EDT I reviewed the chart and it looks like patient was put on this medication from an hospital visit from 01/2024. [facility]06-24-2024 Telephone encounter Note* Telephone Encounter - Martina Still OCCA - 05/01/2024 9:33 AM EDT Prescription Refill Information The patient has been identified by name and date of : Yes Caregiver verified no other encounters exist for this prescription request: Yes Caregiver confirmed with patient/requestor that no other refills are due, in the near future, with this provider at this time: Yes The last office visit in the department: 02/03/2024 Does the patient have a future office visit with this provider/department: No Requested Prescriptions Pending Prescriptions Disp Refills gabapentin (NEURONTIN) 100 mg capsule 90 capsule 2 Sig: Take 1 capsule by mouth three times a day for 90 days. BO Ny May 01, 2024 9:33 AM [facility]05-22-2024 Miscellaneous Notes* Telephone Encounter - Camila Beckham MA - 03/29/2024 11:18 AM EDT Left message for patient to call back and speak to triange Please verify if patient is doing one or 2 insulin injection? Med list on file shows one but dispense report shows lantus and lispro? Pen needles pended for 4 injections a day Camila Beckham MA documented [facility] Telephone encounter Note * Telephone Encounter - Camila Beckham MA - 03/29/2024 11:18 AM EDT Left message for patient to call back and speak to triange Please verify if patient is doing one or 2 insulin injection? Med list on file shows one but dispense report shows lantus and lispro? Pen needles pended for 4 injections a day Camila Beckham MA [facility]04-02-2024 History of Present illness Narrative* Autumn Pride RN - 02/08/2024 11:[address] Li, Weston was provided with Gel Powerstep Inserts, size 9-10.5Mens, and instructed/educated in its application, wear, and care. All questions were answered, and patient was able to demonstrate competence with the necessary skills to utilize the above equipment. Autumn Pride RN * Eder Li - 02/08/2024 10:42 AM EDT Initial Office Visit Subjective: This 38 year old male presents to clinic for diabetic foot check. Patient has the following complaints: painful callus of b/l feet. Patient presents complaining of callus of b/l feet. Has callus to the plantar aspect of both feet that has been present for nearly 2-3 years. Treats with self debridement. States he has pain with anypressure. Patient admits to being diabetic for 7 years now and states. Patient +B/T/N in feet at this time. Patient -pain in legs when walking. No other pedal complaints at this time. No change in medications or medical history since last visit. PAIN EVALUATION 02/08/2024 1030 Pain Level: 5 Pain Location: Foot-Right Duration Amount of Time: 1 Duration Units: Weeks Frequency: Intermittent Intervention/Comfort measure: Relaxation;Reposition Hemoglobin A1C (%) Date Value 12/28/2023 11.0 10/15/2023 13.2 PCP: Austin Camarena APRN.SHIPPING ASSOCIATE PAST MEDICAL HISTORY Diagnosis Date Bipolar 1 disorder (HCC) DM (diabetes mellitus), type 2 (HCC) NEGATIVE MEDICAL HISTORY Current Outpatient Medications Medication Sig pantoprazole DR (PROTONIX) 40 mg tablet lisinopril (ZESTRIL) 20 mg tablet metoclopramide HCl (REGLAN) 5 mg tablet LANTUS SOLOSTAR U-100 INSULIN 100 unit/mL (3 mL) Inject 15 Units subcutaneously daily at bedtime. blood sugar diagnostic (BLOOD GLUCOSE TEST) test strip Test blood sugar(s) 1 times daily. Dx: Type 2 DM - Uncontrolled E11.65 Insulin: No Lancets Test blood sugar(s) 1 times daily. Dx: Type 2 DM - Uncontrolled E11.65 Insulin: No gabapentin (NEURONTIN) 100 mg capsule Take 1 capsule by mouth three times a day for 90 days. nicotine (NICODERM) 21 mg/24 hr Apply 1 Patch as directed every 24 hours. (Patient not taking: Reported on 02/08/2024) No current facility-administered medications for this visit. ALLERGIES No Known Allergies PAST SURGICAL HISTORY Procedure Laterality Date NONE FAMILY HISTORY Problem Relation Age of Onset Hypertension Father Heart Father Hypertension Mother Diabetes Mother No Ocular Disease No Family History Social History Tobacco Use Smoking status: Former Packs/day: 1.50 Years: 25.00 Additional pack years: 0.00 Total pack years: 37.50 Types: Cigarettes Quit date: 02/05/2024 Vaping Use Vaping Use: Never used Substance Use Topics Alcohol use: Not Currently Drug use: Not Currently Frequency: 3.0 times per week Types: Marijuana Comment: smokes and uses edibles REVIEW OF SYSTEMS GENERAL: Negative for Malaise, significant weight loss, fever RESPIRATORY: Negative for cough, wheezing and shortness of breath CARDIOVASCULAR: Negative for chest pain, leg swelling and palpitations GI: Negative for abdominal discomfort, blood in stools or black stools and change in bowel habits : Negative for dysuria, frequency and incontinence MUSCULOSKELETAL: Negative for joint pain or swelling, back pain, and muscle pain. SKIN: Negative for lesions, rash, and itching. HEMATOLOGY/LYMPHOLOGY Negative for prolonged bleeding, bruising easily, and swollen nodes. ENDOCRINE: Negative for cold or heat intolerance, polyuria, polydipsia and goiter. NEURO: negative The remainder of the review of systems is noncontributory. Objective: Patient presents to clinic ambulating in [facility] Constitutional: Pt is a well developed 38 year old male who is alert, oriented, cooperative and in no apparent distress. Eyes: Following during examination. No redness or drainage. Respiratory: RR normal and nonlabored. Even breathing. No evidence of distress. Psychology: Patient is engaged during conversation. Normal affect and mood. Does not appear depressed or anxious. Vasc: DP faintly palpable. Pt palpable bilateral. CFT is less than 5 seconds bilateral. Skin temperature is warm to warm proximal to distal bilateral. There is no edema or varicosities noted. Hair growth present. Neuro: Protective sensation is intact to the foot and toes when tested with the 5.07 SWM bilateral.Vibratory sensation is intact at the hallux bilateral. No Significant neurological defecits. Derm: Inspection and palpation performed. Nails 1-5 b/l are normal in length and thickness. Skin isof normal turgor and texture. Porokeratosis x 2 to b/l feet. No ulceration noted. NO ulcerations, scars, verruca or other lesions noted. Ortho: Ankle joint DF is full with the knee extended and full with knee flexed. No pain or crepitusnoted. STJ, MTJ ROM are full and free of pain or crepitus. Muscle strength is 5/5 for dorsiflexors,plantarflexors, inverters, everters. Digital deformities include none. 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 Patient was seen and evaluated. 2. Patient was instructed on the continued importance of diabetic foot care along with proper diet and keeping their blood sugar under control to prevent complications. Discussed need for daily foot inspection and also stressed diet and exercise to get his A1c better controlled Instructions given both oral and written. 3. Porokeratosis to 2 to b/l feet was reduced with 15 blade. Small bleed to left foot treated with topical antibiotic and band aide. 4. Will treat with powerstep gel inserts and offloading pad. Discussed tca as an option but with his poor control of sugars and fear of blistering, will hold off on tca application 5. Baseline pvr ordered as he complains of cold feet. Suspect his circulation is adequate Eder Li DPM * Autumn Pride RN - 02/08/2024 10:29 AM EDT AMB ROOMING INTAKE FLOWSHEET DATA Pain Pain Level: 5 Pain Location: Foot-Right Duration Amount of Time: 1 Duration Units: Weeks Frequency: Intermittent Intervention/Comfort measure: Relaxation, Reposition Patient presents with: Left Foot - New, Diabetic Foot Care, Pain, Callous Right Foot - New, Diabetic Foot Care, Pain, Callous Patient presents for diabetic foot check. States that he has calluses to bilateral feet, Right hurts worse than left. States that right foot also develops numbness around the callus. [facility] Instructions* Patient Instructions* Eder Li - 02/08/2024 10:59 AM EDT Diabetes Foot Care Instructions When you have diabetes, proper foot care is very important. Poor foot care may lead to amputation of a foot or leg. As a person with diabetes, you are more vulnerable to foot problems, because diabetes can damage your nerves and reduce blood flow to your feet. Here are some diabetes foot care tips to follow: Wash and Dry Your Feet Daily Use mild soaps Use warm water Pat your skin dry; do not rub. Thoroughly dry your feet. After washing, use lotion on your feet to prevent cracking. Do not put lotion between your toes. Examine Your Feet Each Day Check the tops and bottoms of your feet. Have someone else look at your feet if you cannot see them. Check for dry, cracked skin. Look for blisters, cuts, scratches, or other sores. Check for redness, increased warmth, or tenderness when touching any area of your feet. Check for ingrown toenails, corns, and calluses. If you get a blister or sore from your shoes, do not pop it. Apply a bandage and wear a differentpair of shoes. Take Care of Your Toenails Cut toenails after bathing, when they are soft. Cut toenails straight across and smooth with a nail file. Avoid cutting into the corners of toes. Do not cut cuticles. If you have neuropathy (or decreased sensation in your feet) a market development analyst should always cut your toenails. Be Careful When Exercising Walk and exercise in comfortable shoes. Do not exercise when you have open sores on your feet. Protect Your Feet With Shoes and Socks Never go barefoot. Always protect your feet by wearing shoes or hard-soled slippers or footwear. Avoid shoes with high heels and pointed toes. Avoid shoes that expose your toes or heels (such as open-toed shoes or sandals). These types of shoes increase your risk for injury and potential infections. Try on new footwear with the type of socks you usually wear. Do not wear new shoes for more than an hour at a time. Change your socks daily. Look and feel inside your shoes before putting them on to make sure there are no foreign objects orrough areas. Avoid tight socks. Wear natural-fiber socks (cotton, wool, or a cotton-wool blend). Wear special shoes if your health care provider recommends them. Wear shoes/boots that will protect your feet from various weather conditions (cold, moisture, etc.). Make sure your shoes fit properly. If you have neuropathy (nerve damage), you may not notice that your shoes are too tight. Perform the footwear test described below. Footwear Test Use this simple test to see if your shoes fit correctly: Stand on a piece of paper. (Make sure you are standing and not sitting, because your foot changes shape when you stand.) Trace the outline of your foot. Trace the outline of your shoe. Compare the tracings: Is the shoe too narrow? Is your foot crammed into the shoe? The shoe should be at least 1/2 inch longer than your longest toe and as wide as your foot. Proper Shoe Choices The following types of shoes are best for people with diabetes Closed toes and heels Leather uppers without a seam inside At least 1/2 inch extra space at the end of your longest toe Inside of shoe should be soft with no rough areas Outer sole should be made of stiff material Shoes should be at least as wide as your feet Tips for Foot Care in Diabetes Don't wait to treat a minor foot problem if you have diabetes. Follow your health care provider's guidelines and first aid guidelines. Report foot injuries and infections to your health care provider immediately. Check water temperature with your elbow, not your foot. Do not use a heating pad on your feet. Do not cross your legs. Do not self-treat your corns, calluses, or other foot problems. Go to your health care provider or market development analyst to treat these conditions. Powerstep Original Full length. Can purchase at [facility] Runner and boots,shoes and more here in [place], [employer] in [place] or [place]. Also can find in [place] in [facility]. Powersteps can also be purchased online, starting around $45.00 If you have a metatarsal or dancer pad for your feet apply the pad directly to the insole so you can interchange between your shoes. Find a shoe with a removable insole and take this out and replace with your powerstep insole. Always bring powersteps with you when shopping for shoes so that you can make sure that everything fits well together documented in this [facility] Progress note Author Shantell Alcaraz [facility] January 28, 2024 3:40pm Note Date/Time January 28, 2024 1:2 1pm [facility] Medical Records Department [address] [place] [address] Progress Note 01/28/24 1320 MR#: [id number] Acct: [id number] Name: WESTON GAMEZ Seth Rep #:[id number] : 1985 38 From: Shantell Alcaraz MD PCP: JIE Geller Status:ADM IN Location: RI3 TS251-1 Subjective Subjective Patient seen and examined. He was lying in bed moaning because of abdominal pain. He denied any nausea or vomiting, fever or chills or shortness of breath. Review of systems otherwise negative. Objective Data Objective Data Vital Signs: Vital Signs Temp Pulse Resp BP Pulse Ox O2 Del Method 98.1 F 101 H 16 105/66 100 Room Air 01/28/24 07:29 01/28/24 07:29 01/28/24 07:29 01/28/24 07:29 01/28/24 07:29 01/28/24 07:29 Oxygen Delivery Method Room Air Weight: 138 lb 3.677 oz Body Mass Index (BMI) 22.3 Intake & Output: Intake and Output for Last 24 Hours 01/26/24 01/27/24 01/28/24 23:59 23:59 23:59 Intake Total 2540 / 2540 810 / 810 Output Total 450 / 450 900 / 900 Balance 2089 -90 / -90 Lab / Micro Data 01/28/24 06:55 01/28/24 06:55 Labs: Laboratory Results - last 24 hr 01/27/24 12:15: TSH 2.59 01/27/24 15:15: Hemoglobin A1c 11.1 H, Ethyl Alcohol < 3.0 01/27/24 15:30: U Random Total Protein 46.0 H, Ur Random Sodium 82, Urine Creatinine 94.50, Protein/Creatinin Ratio 487 H, Urine Opiates Screen POSITIVE H, Urine Methadone Screen NEGATIVE, Ur Barbiturates Screen NEGATIVE, Ur Phencyclidine Scrn NEGATIVE, Ur Amphetamines Screen NEGATIVE, MDMA (Ecstasy) Screen NEGATIVE, U Benzodiazepines Scrn NEGATIVE, Urine Cocaine Screen NEGATIVE,U Cannabinoids Screen POSITIVE H, Ur Drug Screen Comment 01/27/24 16:53: POC Glucose 106 01/27/24 21:50: POC Glucose 96 01/28/24 06:32: POC Glucose 119 H 01/28/24 06:55: WBC 12.3 H, RBC 4.51 L, Hgb 12.6 L, Hct 38.6 L, MCV 85.6, MCH 27.9, MCHC 32.6, RDW Std Deviation 41.7, RDW Coeff of [place] 13.4, Plt Count 336, MPV 10.1, Sodium 137, Potassium 3.5, Chloride 109 H, Carbon Dioxide 20.0 L, Anion Gap 8, BUN 17, Creatinine 0.87, Estim Creat Clear Calc 102.10, Est GFR (MDRD) Af Amer 126, Est GFR (MDRD) Non-Af 104, BUN/Creatinine Ratio 19.6, Glucose 127 H, Calcium 8.4 L 01/28/24 12:23: POC Glucose 182 H Radiography Diagnostic Testing: Radiology Impression Gallbladder Ultrasound 01/27/24 11:48 IMPRESSION: Normal right upper quadrant ultrasound examination. Electronically Signed: Nicola Her MD at 13:10 EDT , Physical Exam Const alert and oriented x3 Constitutional Narrative: In moderate distress due to pain General Appearance: cooperative HEENT normocephalic, head/scalp atraumatic and moist oral mucous membranes Eyes PERRL and EOMs intact bilaterally Neck no lymphadenopathy and supple Lymph Lymphatic: no lymphadenopathy noted and no lymphedema noted Resp normal respiratory effort, normal air movement and clear to auscultation bilaterally Cardio regular rate, regular rhythm, S1 normal heart sound, S2 normal heart sound and no murmurs GI normal to inspection, nondistended, normoactive bowel sounds and non-distended GI Narrative: Moderate epigastric tenderness with no guarding or rebound tenderness Extremity normal capillary refill, no clubbing, cyanosis or edema and no calf tenderness General Extremity: no tenderness to palpation of joints or extremities Skin General Skin Exam: no breakdown Neuro CN's II-XII intact bilaterally, no focal motor deficits, no sensory deficits noted and deep tendon reflexes 2+ bilaterally Motor Exam: strength 5/5 throughout and general weakness Psych thought process normal and cooperative Appearance: appropriate Assessment & Plan Assessment/Plan (1) DKA (diabetic ketoacidoses): (2) Nausea & vomiting: (3) Abdominal pain, acute, generalized: PLAN: Plan #MIld DKA in a known diabetic * Bicarb is up to 20 today. Anion gap is 8. DKA has resolved. * Being hydrated with IV fluids. On subcu Lantus 15 units daily * Says he is to be on pioglitazone and glipizide. States he was on metformin but this was stopped. His A1c is 11 * Will need follow-up with endocrinology on outpatient basis. * #Intractable abdominal pain * Patient has been writhing and moaning in pain. He has mild epigastric tenderness. * CT of the abdomen and pelvis showed no evidence of pancreatitis or any acute intra-abdominal pathology. * Started on IV pantoprazole 40 mg twice daily for any probable gastritis. * Patient also smokes marijuana and this could be the cause of his symptoms. Patient however states he has been smoking marijuana since he was 13 so does not think that it could be related to this. * Gastroenterology consulted. Await recs. * Keep n.p.o. and continue hydration with IV fluids. * #Hypertension: * Has a strong family history of hypertension. Blood pressure was elevated on admission. * Started on lisinopril 5 mg and amlodipine 5 mg. IV hydralazine as needed. * Adjust medications as needed. * #Proteinuria: Urine protein creatinine ratio was elevated at 487. Will benefit from follow-up with nephrology on outpatient basis. Creatinine level was normal. DVT prophylaxis: Lovenox Charges/Coding Visit Charges Inpatient E&M: 27824 Subs Hosp L2 01/28/24 1540 <Electronically signed by Shantell Alcaraz MD> Shantell Alcaraz MD Cosigner Signature (if applicable): CC: ~ Signed [facility] Work Phone: 1(831) 230-678803-22-2024 Procedure [facility] 01-28-2024 Procedure [facility]03-22-2024 Discharge summary Author Connie Hermosillo [facility] January 27, 2024 10:49pm Note Date/Time January 27, 2024 12: 06pm [facility] Medical Records Department [address] [place] [address] Emergency Department Summary 01/27/24 MR#: [id number] Acct: [id number] Name: WESTON GAMEZ Rep #:[id number] : 1985 38 From: Connie Hermosillo MD PCP: JIE Geller Status:ADM IN Location: RI3 PW352-2 HPI <RIGOBERTO Ward - Last Filed: 01/27/24 15:29> HPI - GI History of Present Illness Chief Complaint: Abd Pain Narrative Narrative: Patient presenting today due to right upper quadrant abdominal pain that he has had over the past 4 days. He also reports nausea and vomiting. He reports thathe was here on 01/25/2024 and had a workup done and was told that this was likelydue to his cannabis use, however he has never had symptoms like this before and reports that he has not used cannabis in a week. He then went to [facility] yesterday where they performed another CT scan, fabricio blood, and gave him IV fluids and nausea medication. He did not feel as bad yesterday and was able to tolerate fluids and was discharged home. Today he saw his PCP who encouraged him to come back into the ER. He has had very little to eat/drink over the pastfew days due to his pain and nausea. He denies any history of abdominal surgeries, fevers, chills, hematemesis, and diarrhea. [facility] <RIGOBERTO Ward - Last Filed: 01/27/24 15:29> [facility] Medical History Bipolar 1 disorder Diabetes mellitus Schizo-affective schizophrenia Home Medications glipizide 10 mg tablet, extended release 24 hr 10 mg PO DAILY BLOOD SUGARS 01/25/24 [History Last Taken 01/25/24] lisinopril 10 mg tablet 10 mg PO DAILY BLOOD PRESSURE #30 tabs 01/25/24 [Rx Last Taken Unknown] pioglitazone 15 mg tablet 15 mg PO DAILY BLOOD SUGARS 01/27/24 [History Last Taken 01/25/24] Allergy/AdvReac Type Severity Reaction Status Date / Time No Known Allergies Allergy Verified 01/27/24 11:30 Family History unable to obtain Social History household members: spouse Smoking Status: Current some day smoker tobacco type: cigarettes ROS <RIGOBERTO Ward - Last Filed: 01/27/24 15:29> ROS ED Constitutional Constitutional ED: Denies chills or fever(s) Cardiovascular Cardiovascular: Denies chest pain Respiratory/Chest Respiratory/Chest: Denies cough or dyspnea Gastrointestinal Gastrointestinal: Reports abdominal pain, nausea and vomiting; Denies constipation, diarrhea or melena Genitourinary Genitourinary ED: Denies dysuria, hematuria or urinary urgency Musculoskeletal Musculoskeletal: Denies arthralgias or myalgias Integumentary Denies rash Neurologic Neurologic: Denies weakness EXAM <RIGOBERTO Ward - Last Filed: 01/27/24 15:29> Physical Exam Const Vital Signs: 01/27/24 11:30 01/27/24 12:18 01/27/24 13:42 Temperature 99 F 98.0 F Temperature Source Temporal Oral Pulse Rate 133 H 120 H 92 Respiratory Rate 26 H 31 H 15 Blood Pressure 174/106 H 192/108 H 181/102 H Blood Pressure Mean 128 136 128 Pulse Ox 100 100 99 Oxygen Delivery Method Room Air Room Air Room Air 01/27/24 13:58 01/27/24 14:01 01/27/24 15:00 Temperature 97.8 F Temperature Source Axillary Pulse Rate 85 88 102 H Respiratory Rate 17 16 Blood Pressure 168/98 H 132/95 H 183/108 H Blood Pressure Mean 121 107 133 Pulse Ox 98 98 Oxygen Delivery Method Room Air Room Air Positive well nourished, well developed and no apparent distress General Appearance ED: well developed HEENT Reports normocephalic and head/scalp atraumatic Mouth ED: Yes moist mucous membranes normal Eyes PERRL and EOMs intact bilaterally Neck full ROM and supple Chest Wall inspection of chest normal Resp normal respiratory effort and clear to auscultation bilaterally Cardio regular rate and regular rhythm GI soft to palpation, non-distended and no masses GI Narrative: Tenderness to the right upper quadrant, no rigidity, guarding, or peritoneal signs. Negative Mata sign. Back/Spine normal ROM and normal to inspection Extremity normal to inspection and full ROM Neuro oriented x3, CN's II-XII intact bilaterally, moves all extremities, no focal motor deficits and no sensory deficits noted Sensorium / Orientation: awake and alert Psych mental status grossly normal and thought process normal Skin no rashes or lesions noted and no wounds <Dr. Connie Hermosillo MD - Last Filed: 01/27/24 15:19> Physical Exam Const Vital Signs: 01/27/24 11:30 01/27/24 12:18 01/27/24 13:42 Temperature 99 F 98.0 F Temperature Source Temporal Oral Pulse Rate 133 H 120 H 92 Respiratory Rate 26 H 31 H 15 Blood Pressure 174/106 H 192/108 H 181/102 H Blood Pressure Mean 128 136 128 Pulse Ox 100 100 99 Oxygen Delivery Method Room Air Room Air Room Air 01/27/24 13:58 01/27/24 14:01 01/27/24 15:00 Temperature 97.8 F Temperature Source Axillary Pulse Rate 85 88 102 H Respiratory Rate 17 16 Blood Pressure 168/98 H 132/95 H 183/108 H Blood Pressure Mean 121 107 133 Pulse Ox 98 98 Oxygen Delivery Method Room Air Room Air MDM <RIGOBERTO Ward - Last Filed: 01/27/24 15:29> [facility] MDM Narrative Medical decision making narrative: Patient presenting with right upper quadrant abdominal pain he has had over the past 4 days. Increased nausea and vomiting, is concerned for dehydration as she is having a hard time getting him to eat/drink. This is his third visit now in a emergency department. The last time he was here on 01/24 the note did mention that the ED physician had spoke to GI as well as the hospitalist and that he was going to be admitted, however he was discharged home, patient does not know why he was discharged home. He does appear uncomfortable, he is tachycardic and hypertensive. He will be given IV fluids, Zofran, morphine, andToradol. Labs will be obtained as well as a right upper quadrant ultrasound. Labs showed a WBC of 12.9, sodium 132, BUN 22, glucose 322. When patient was here on 01/24 the attending did speak with Dr. Argueta who recommended starting ciprofloxacin and Flagyl, this will be given today. Gallbladder ultrasound unremarkable. On examination patient is comfortably sleeping and looks much improved. Blood pressure was elevated, I did order labetalol to give but blood pressure did improve and this was put on hold. Given this is his third ER visitin the past 3 days I do think he would benefit from admission to the hospital. Will speak with the hospitalist to have patient admitted in stable condition. Lab Data Attestation: I reviewed the patient's lab results. Labs: Laboratory Results - last 24 hr 01/27/24 12:15 WBC 12.9 H RBC 5.32 Hgb 14.9 Hct 44.8 MCV 84.2 MCH 28.0 MCHC 33.3 RDW Std Deviation 40.4 RDW Coeff of [place] 13.2 Plt Count 375 MPV 9.8 Immature Gran % (Auto) 0.400 Neut % (Auto) 65.5 Lymph % (Auto) 26.1 [place] % (Auto) 7.0 Eos % (Auto) 0.5 Baso % (Auto) 0.5 Absolute Neuts (auto) 8.4 H Absolute Lymphs (auto) 3.36 Nucleated RBC % 0 Sodium 132 L Potassium 4.0 Chloride 100 Carbon Dioxide 17.0 L Anion Gap 15 BUN 22 H Creatinine 1.15 Estim Creat Clear Calc 76.75 Est GFR (MDRD) Af Amer 91 Est GFR (MDRD) Non-Af 76 BUN/Creatinine Ratio 19.1 Glucose 322 H Calcium 9.6 Total Bilirubin 0.70 AST 17 ALT 15 L Alkaline Phosphatase 91 Total Protein 9.2 H Albumin 4.2 Globulin 5.0 H Albumin/Globulin Ratio 0.8 L Lipase 47 Urine Color Yellow Urine Clarity Clear Urine pH 5.0 Ur Specific [place] 1.025 Urine Protein 30 H Urine Glucose (UA) 1000 H Urine Ketones 150 A* Urine Occult Blood 50 H Urine Nitrite Negative Urine Bilirubin Negative Urine Urobilinogen Normal Ur Leukocyte Esterase Negative Urine RBC 5-10 SEEN Urine WBC 0 SEEN Ur Squamous Epith Cells 0 SEEN Urine Bacteria 0 SEEN Urine Mucus 0 SEEN <Dr. Connie Hermosillo MD - Last Filed: 01/27/24 15:19> [facility] Lab Data Labs: Laboratory Results - last 24 hr 01/27/24 12:15 WBC 12.9 H RBC 5.32 Hgb 14.9 Hct 44.8 MCV 84.2 MCH 28.0 MCHC 33.3 RDW Std Deviation 40.4 RDW Coeff of [place] 13.2 Plt Count 375 MPV 9.8 Immature Gran % (Auto) 0.400 Neut % (Auto) 65.5 Lymph % (Auto) 26.1 [place] % (Auto) 7.0 Eos % (Auto) 0.5 Baso % (Auto) 0.5 Absolute Neuts (auto) 8.4 H Absolute Lymphs (auto) 3.36 Nucleated RBC % 0 Sodium 132 L Potassium 4.0 Chloride 100 Carbon Dioxide 17.0 L Anion Gap 15 BUN 22 H Creatinine 1.15 Estim Creat Clear Calc 76.75 Est GFR (MDRD) Af Amer 91 Est GFR (MDRD) Non-Af 76 BUN/Creatinine Ratio 19.1 Glucose 322 H Calcium 9.6 Total Bilirubin 0.70 AST 17 ALT 15 L Alkaline Phosphatase 91 Total Protein 9.2 H Albumin 4.2 Globulin 5.0 H Albumin/Globulin Ratio 0.8 L Lipase 47 Urine Color Yellow Urine Clarity Clear Urine pH 5.0 Ur Specific Burnett 1.025 Urine Protein 30 H Urine Glucose (UA) 1000 H Urine Ketones 150 A* Urine Occult Blood 50 H Urine Nitrite Negative Urine Bilirubin Negative Urine Urobilinogen Normal Ur Leukocyte Esterase Negative Urine RBC 5-10 SEEN Urine WBC 0 SEEN Ur Squamous Epith Cells 0 SEEN Urine Bacteria 0 SEEN Urine Mucus 0 SEEN Treatment and Re-Evaluation :: Patient seen and evaluated with TITA. I personally interviewed and examined the patient. I was involved in all aspects of patient's orders, interpretation of results, and treatment. Patient returns to the ER secondary to continued abdominal pain with nausea and vomiting. He was seen in the ER 2 days ago. Plan had been to admit him with IVantibiotics given some lymphadenopathy in his pelvis, however he was inadvertently discharged. Patient went to [facility] yesterday where he got IVfluids and insulin. He presented to PCPs office this morning with continued vomiting and was sent back for admission. Patient complains of right upper quadrant abdominal pain. Patient lying in bed in obvious discomfort. Head and neck examination unremarkable. Heart is tachycardic and regular. Lung sounds are grossly clear. Abdomen is soft with tenderness to the right upper quadrant. No palpable masses. He has no guarding or rebound at the time of my exam. He has mild tenderness in the suprapubic region. There was concern a couple days ago about possible urinary retention. I asked nursing staff to get a bladder scan but they stated it was not reading. They placed a Anderson catheter only got about 200 cc of urine out. Lab work reveals continued white count of 12.9, consistent with prior value. Differential is unremarkable. Chemistry studies significant for a sodium of 132, bicarb of 17, BUN 22, creatinine 1.15. Glucose is 322. Urinalysis reveals 1000 glucose and 150 ketones. No sign of infection. Patient CT scan from [place] 2 days ago as well as [facility] yesterday is reviewed. Right upper quadrant ultrasound obtained today and reveals no acute gallbladder abnormalities. Patient was to be on Cipro and Flagyl and that is ordered for him again. Will speak with hospitalist regarding admission and GI consult as it had been the plan on the . Discharge Plan Triage Chief Complaint: Abd Pain ED Midlevel Provider: Krystina Clifton ED Provider: Connie Hermosillo Dx/Rx/DC Orders Clinical Impression: Acute dehydration, Type 2 diabetes mellitus with hyperglycemia, Nausea & vomiting, Hypertension, Abdominal pain, acute, generalized Prescriptions: No Action glipizide 10 mg tablet extended release 24hr 10 mg PO DAILY lisinopril 10 mg tablet 10 mg PO DAILY Qty: 30 0RF Patient Comments: THIS IS A NEWLY PRESCRIBED MEDICATION THAT THE PT HAS NOT YET STARTED/PICKED UP FROM THE PHARMACY ( OF 01/27/24) pioglitazone 15 mg tablet 15 mg PO DAILY Primary Care Provider: Austin Camarena Referrals: Austin Camarena, CARBURETOR REBUILDER-C [Primary Care Provider] - Disposition Disposition: Acute Care Hospital [facility] What to do if you have Problems For any increased pain, shortness of breath, bleeding, nausea or vomiting, chestpain, or any unexpected problems, contact your Primary Care Provider. Call [facility] ([phone]) or report to the closest Emergency Room. Call 911 if necessary. 01/27/24 2249 <Electronically signed by Connie Hermosillo MD> Cosigner Signature (if applicable): 01/27/24 1529 <Electronically signed by Krystina FRANKLIN> CC: CARBURETOR REBUILDER-C Austin Camarena ~ Signed [facility] Work Phone: 1(576) 891-127703-21-2024 History and physical note Author [facility]The [facility] January 27, 2024 4:13pm Note Date/Time January 27, 2024 3:0 3pm [facility] Medical Records Department [address] [place] [address] H&P Exam - Hospitalist 01/27/24 1503 MR#: [id number] Acct: [id number] Name: WESTON GAMEZ Rep #:[id number] : 1985 38 From: Troy gonsalez DO PCP: JIE Geller Status:ADM IN Location: RI3 [id number] HPI - General General Date of Admission: 01/27/24 Date of Service: 01/27/24 Chief Complaint: Intractable nausea and vomiting HPI Narrative WESTON GAMEZ, is a 38 M who presented to [facility] ED on 01/27/2024 with intractable nausea and vomiting. Patient seen at bedside in the ED. Patient sitting up fairly comfortably in bed, conversing normally, no acutedistress. Patient is very pleasant and provides a good history. Patient statesthat his nausea and vomiting started somewhat abruptly about 4 days ago. He then began to have pain in the right upper quadrant or right lower quadrant of his abdomen. He came to the ED on 01/[address] abdomen pelvis wasdone at that time and was essentially normal. Labs are notable for a mild leukocytosis, hyperglycemia with blood glucose 278, UA that showed 1000 glucose,150 urine ketones but acid-base status was normal and findings were otherwise fairly benign. He had borderline sinus tachycardia and was quite hypertensive at that time as well. He had some improvement in his symptoms with IV fluids, Zofran and morphine. He was started on low-dose lisinopril and discharged at that time. Over the last few days, patient has continued to have some episodes of nausea/vomiting and abdominal pain. He essentially has not eaten anything over the past 3 to 4 days. States he has very minimal appetite. Because his symptoms did not improve, he came to the ED today for further evaluation. Vitals were again notable for fairly significant hypertension and mild tachycardia. Labs again showed hyperglycemia with blood glucose 322 and similarUA findings, but bicarb was 17 and he had a mild anion gap. He was given 2 L ofIV fluids in the ED as well as Zofran and morphine with some improvement in symptoms. He currently denies any abdominal pain or discomfort. Denies any fevers or chills. Denies any significant change in bowel movements. Denies anylightheadedness or dizziness. No other acute concerns at this time. Due to hisintractable nausea/vomiting and abdominal pain and mild DKA, hospitalist is contacted for admission. On further review, patient was diagnosed with diabetes back in 2014 in his late 20s. His A1c was 13.9% at that time. He remembers having some polyuria and polydipsia at that time but otherwise did not have significant symptoms. He wasslightly heavier at that time but BMI was still likely less than 30. He has intermittently been on oral medications for his diabetes since then. Diabetes has been managed by his PCP he states. He was on metformin for a while, but recently this was discontinued because he reported worsening nausea and vomitingover the past 1 to 2 months to his PCP. His regimen since then has been glipizide 10 mg daily and Actos 15 mg daily. In general, patient states that his vision has steadily been getting worse over the past few years with some blurry vision. He has noticed increasing episodes of numbness/tingling and electric type shocks in his feet, worse on the right foot. He is also noticed that his stomach does not seem to be emptying as quickly as normal and he has had less of an appetite because of this. Patient does smoke marijuana on a daily basis but has been doing this since age 13. Does not smoke cigarettes. Denies any alcohol use. Denies any other drug use. [facility] Medical History Bipolar 1 disorder Diabetes mellitus Schizo-affective schizophrenia Home Medications glipizide 10 mg tablet, extended release 24 hr 10 mg PO DAILY BLOOD SUGARS 01/25/24 [History Last Taken 01/25/24] lisinopril 10 mg tablet 10 mg PO DAILY BLOOD PRESSURE #30 tabs 01/25/24 [Rx Last Taken Unknown] pioglitazone 15 mg tablet 15 mg PO DAILY BLOOD SUGARS 01/27/24 [History Last Taken 01/25/24] Allergy/AdvReac Type Severity Reaction Status Date / Time No Known Allergies Allergy Verified 01/27/24 11:30 Family History unable to obtain Social History household members: spouse Smoking Status: Current some day smoker tobacco type: cigarettes ROS Constitutional Constitutional: Reports fatigue; Denies chills, fever(s) or weakness Eyes Eyes: Reports blurry vision and change in vision Cardiovascular Cardiovascular: Denies chest pain, dyspnea on exertion, edema, lightheadedness or palpitations Respiratory/Chest Respiratory/Chest: Denies cough, shortness of breath at rest, shortness of breath with exertion or wheezing Gastrointestinal Gastrointestinal: Reports abdominal pain, dyspepsia, nausea and vomiting; Deniesconstipation or diarrhea Genitourinary Genitourinary: Denies dysuria Musculoskeletal Musculoskeletal: Denies arthralgias, back pain or myalgias Neurologic Neurologic: Reports numbness, paresthesias and tingling; Denies abnormal gait, disequilibrium, dizziness, focal weakness, headache(s) or tremor(s) Endocrine Endocrinology: Denies polydipsia or polyuria Vital Signs Vital Signs Vital Signs: 01/27/24 11:30 01/27/24 12:18 01/27/24 13:42 Temperature 99 F 98.0 F Temperature Source Temporal Oral Pulse Rate 133 H 120 H 92 Respiratory Rate 26 H 31 H 15 Blood Pressure 174/106 H 192/108 H 181/102 H Blood Pressure Mean 128 136 128 Pulse Ox 100 100 99 Oxygen Delivery Method Room Air Room Air Room Air 01/27/24 13:58 01/27/24 14:01 Temperature Temperature Source Pulse Rate 85 88 Respiratory Rate 17 Blood Pressure 168/98 H 132/95 H Blood Pressure Mean 121 107 Pulse Ox 98 Oxygen Delivery Method Room Air Weight Weight: 62.3 kg Body Mass Index (BMI) 22.1 Physical Exam Const alert, oriented x3, no apparent distress and average body habitus Constitutional Narrative: Pleasant younger male, sitting up comfortably in bed, conversing normally, in noacute distress. General Appearance: cooperative and comfortable HEENT normocephalic, head/scalp atraumatic, hearing grossly normal bilaterally and nasal mucous membranes and turbinates normal Eyes PERRL, EOMs intact bilaterally and conjunctivae normal Neck full ROM Chest inspection of chest normal Resp normal respiratory effort, normal air movement, no use of accessory muscles and clear to auscultation bilaterally Cardio no murmurs and peripheral pulses 2+ throughout Cardio Narrative: Tachycardic, regular rhythm. GI GI Narrative: Mildly tender to palpation diffusely. Otherwise soft and nondistended. Back/Spine normal ROM Extremity normal to inspection, full ROM and no pedal edema Skin no rashes or lesions noted Neuro moves all extremities and no focal motor deficits Neuro Narrative: Decreased sensation noted in the right foot. Speech: speech normal Psych mental status grossly normal Results Lab / Micro Data 01/27/24 12:15 01/27/24 12:15 Labs: Laboratory Results - last 24 hr 01/27/24 12:15: WBC 12.9 H, RBC 5.32, Hgb 14.9, Hct 44.8, MCV 84.2, MCH 28.0, MCHC 33.3, RDW Std Deviation 40.4, RDW Coeff of [place] 13.2, Plt Count 375, MPV 9.8, Immature Gran % (Auto) 0.400, Neut % (Auto) 65.5, Lymph % (Auto) 26.1, [place]% (Auto) 7.0, Eos % (Auto) 0.5, Baso % (Auto) 0.5, Absolute Neuts (auto) 8.4 H, Absolute Lymphs (auto) 3.36, Nucleated RBC % 0, Sodium 132 L, Potassium 4.0, Chloride 100, Carbon Dioxide 17.0 L, Anion Gap 15, BUN 22 H, Creatinine 1.15, Estim Creat Clear Calc 76.75, Est GFR (MDRD) Af Amer 91, Est GFR (MDRD) Non-Af 76, BUN/Creatinine Ratio 19.1, Glucose 322 H, Calcium 9.6, Total Bilirubin 0.70,AST 17, ALT 15 L, Alkaline Phosphatase 91, Total Protein 9.2 H, Albumin 4.2, Globulin 5.0 H, Albumin/Globulin Ratio 0.8 L, Lipase 47, Urine Color Yellow, Urine Clarity Clear, Urine pH 5.0, Ur Specific Burnett 1.025, Urine Protein 30 H, Urine Glucose (UA) 1000 H, Urine Ketones 150 A*, Urine Occult Blood 50 H, Urine Nitrite Negative, Urine Bilirubin Negative, Urine Urobilinogen Normal, Ur Leukocyte Esterase Negative, Urine RBC 5-10 SEEN, Urine WBC 0 SEEN, Ur Squamous Epith Cells 0 SEEN, Urine Bacteria 0 SEEN, Urine Mucus 0 SEEN Assessment & Plan Assessment/Plan (1) DKA (diabetic ketoacidoses): (2) Type 2 diabetes mellitus with hyperglycemia: (3) Hypertension: PLAN: Plan Patient is a 38-year-old male who presented to [facility] ED on 01/27/2024 with intractable nausea and vomiting and abdominal pain. 1. Mild DKA, poorly controlled diabetes mellitus with hyperglycemia, suspected diabetic neuropathy and concern for gastroparesis ? Mild DKA on admit as evidenced by glucose 322, sodium 132, bicarb 17, anion gap 15, urine ketones 150, nausea/vomiting and poor appetite on admit. ? Diagnosed with diabetes in 2014, A1c 13.9% at that time. Has been treated like type 2 diabetes but patient was in late 20s and had fairly thin body habitus at that time. No A1c's recorded in our system after that. Was on metformin for a time, current medications now glipizide 10 mg daily and pioglitazone 15 mg daily. Patient reports good compliance with these meds. ? Have high concern that patient has had uncontrolled diabetes for many years that has now led to complications including diabetic neuropathy, diabetic retinopathy, proteinuria, and possible gastroparesis. ? A1c 11.1% on admit. Patient was given 2 L of IV normal saline in the ED, as well as Humalog 10 units x 1 dose. ? Admit under inpatient status to [facility]. Will start Lantus 15 units at night and sliding-scale insulin with meals for now, adjust as needed. Follow-up BMP tonight and again tomorrow morning. Will hold on further IV fluids for now, encouraged p.o. intake. Will start gabapentin 100 mg 3 times daily for neuropathy. 4-hour gastric emptying study ordered. Nutrition and visual educator consulted. Depending on gastric emptying study results, can consider GI consult. 2. Hypertension ? Patient was found to be very hypertensive in the ED on 01/24, has remained hypertensive on this ED visit. Denies any previous diagnosis of hypertension but does report having a strong family history of hypertension. ? Suspect patient has essential hypertension given his BP readings have remainedhigh despite him appearing very comfortable on exam. ? Will start lisinopril 5 mg daily and amlodipine 5 mg daily now. IV hydralazine every 4 hours as needed ordered as well. Monitor BP closely, adjustregimen as needed. 3. Mild leukocytosis ? WBC count 12.9 on admit. Suspect reactive in setting of mild DKA, low concernfor active infection. Was given doses of ciprofloxacin and Flagyl in the ED forconcern for gastroenteritis, will hold on further antibiotics for now. Follow-up a.m. CBC. 4. Proteinuria ? Presumed secondary to poorly controlled diabetes as well as possibly uncontrolled hypertension. Creatinine 1.15 on admit, estimated GFR 91. Urine protein elevated at 46, urine protein to creatinine ratio elevated at 487. Treating diabetes and hypertension as noted above. Outpatient follow-up. 5. Cannabis use ? Reports smoking marijuana daily. Encouraged cessation. DVT prophylaxis: Lovenox CODE STATUS: Full code, verified Expected disposition: Home, 2 to 3 days Total clinical time spent by myself addressing the patient's medical issues, reviewing all the data, and collaborating with patient's care team: 55 minutes. Charges/Coding Visit Charges Inpatient E&M: 89259 Init Hosp L2 01/27/24 1611 <Electronically signed by Troy Wagoner DO> Cosigner Signature (if applicable): CC: JIE Camarena; Dr. rToy Wagoner DO~ Signed [facility] Work Phone: 1(207) 831-346503-21-2024 History of Present illness Narrative* Austin Camarena MEDICATION AIDE.SHIPPING ASSOCIATE - 01/27/2024 11:26 AM EDT Chief Complaint Patient presents with: ER F/U HPI Weston Gamez is a 38 year old male who presents here today for Above Complaints.. Patient presents for ER follow up. Patient seen in [facility] ER 01/24 and [facility] ER 01/25. Patient was noted to have prominent inguinal lymph nodes on CT, glucose and ketones in urine at [facility] as well as bladder distension and HTN. Patient was reported to get admitted in ER note however he was d/c'd home. He nor his were able to explain why he was not admitted. Spoke with Dr. Argueta who was consulted on patient and he was unsure why patient was not admitted. Past medical history, appointments, medications, allergies reviewed. Previous Medical History PAST MEDICAL HISTORY Diagnosis Date Bipolar 1 disorder (HCC) DM (diabetes mellitus), type 2 (HCC) NEGATIVE MEDICAL HISTORY Previous Surgical History PAST SURGICAL HISTORY Procedure Laterality Date NONE Family History FAMILY HISTORY Problem Relation Age of Onset Hypertension Father Heart Father Hypertension Mother Diabetes Mother No Ocular Disease No Family History Patient Allergies ALLERGIES No Known Allergies Current Medications Current Outpatient Medications on File Prior to Visit Medication Sig glipiZIDE (GLUCOTROL XL) 10mg 24 hr tablet Take 1 tablet by mouth once daily. pioglitazone (ACTOS) 15 mg tablet Take 1 tablet by mouth once daily. varenicline (CHANTIX) 1 mg tablet Take 0.5 tablets by mouth once daily for 3 days, THEN 0.5 tabletstwo times a day for 4 days, THEN 1 tablet two times a day for 23 days. varenicline (CHANTIX) 1 mg tablet Take 1 tablet by mouth two times a day. Patient should start on January 27, 2024. Lancets lancets Test blood sugar(s) 1 times daily. Dx: Type 2 DM - Uncontrolled E11.65 Insulin: No blood sugar diagnostic (BLOOD GLUCOSE TEST) test strip Test blood sugar(s) 1 times daily. Dx: Type 2 DM - Uncontrolled E11.65 Insulin: No nicotine (NICODERM) 21 mg/24 hr Apply 1 Patch as directed every 24 hours. No current facility-administered medications on file prior to visit. Social History Social History Tobacco Use Smoking status: Every Day Packs/day: 1.50 Years: 25.00 Additional pack years: 0.00 Total pack years: 37.50 Types: Cigarettes Substance Use Topics Alcohol use: Not Currently Drug use: Yes Frequency: 3.0 times per week Types: Marijuana Comment: smokes and uses edibles Review of Symptoms REVIEW OF SYSTEMS SEE HPI EXAM: BP 165/92 Pulse (!) 121 Resp 16 Wt 63.8 kg (140 lb 10.5 oz) General Appearance: Patient ill appearing and actively vomiting in room. Health Maintenance List Pneumococcal Vaccine(1 of 2 - PCV) Never done Covid-19 Vaccine(3 - season) due on 07/09/2023 Depression Assessment due on 11/08/2023 Influenza Vaccine(1) due on 05/07/2024 HbA1C due on 03/27/2024 Urine Albumin:Creatinine Ratio due on 10/15/2024 LDL Cholesterol due on 10/15/2024 Diabetic Foot Exam due on 10/15/2024 Dilated Retinal Exam due on 10/26/2024 Annual PCP Team Chronic Disease Visit due on 12/28/2024 DTaP,Tdap,Td Vaccine(2 - Td or Tdap) due on 10/15/2033 Hepatitis C Screening Completed HIV Screening Completed HPV Vaccine Aged Out Hepatitis B Vaccine Discontinued ASSESSMENT/PLAN: 1. Type 2 diabetes mellitus without complication, without long-term current use of insulin (HCC) - ICD9: 250.00, ICD10: E11.9 (primary diagnosis) 2. Nausea and vomiting, unspecified vomiting type - ICD9: 787.01, ICD10: R11.2 Due to patient presentation, patient sent to ER. Called [facility] ER and discussed case with Dr. Hermosillo. Austin Camarena APRN.SHIPPING ASSOCIATE [facility] [place] Discharge instructions Patient Education 01/26/2024 15:10:19 Vomiting (Adult) Vomiting (Adult) Vomiting is a common symptom that may be due to different causes. These include gastroenteritis (stomach flu), food poisoning and gastritis. There are other more serious causes of vomiting which may be hard to diagnose early in the illness. Therefore, it is important to watch for the warning signs listed below. The main danger from repeated vomiting is dehydration. This is due to excess loss of water and minerals from the body. When this occurs, your body fluids must be replaced. Home care If symptoms are severe, rest at home for the next 24 hours. Because your symptoms may be from an infection, wash your hands often and well. If soap and water are not available, use alcohol-based res counselor to keep from spreading the infection to others. Wash your hands for at least 20 seconds. Humming the happy birthday song twice while you wash is aneasy way to make sure you've washed for 20 seconds. Wash your hands after using the toilet, before and after preparing food, before eating food, after changing a diaper, cleaning a wound, caring for a sick person, and blowing your nose, coughing, or sneezing. You should also wash your hands after caring for someone who is sick, touching pet food, ortreats, and touching an animal, or animal waste. You may use acetaminophen or NSAID medicines like ibuprofen or naproxen to control fever, unless another medicine was prescribed. If you have chronic liver or kidney disease or ever had a stomach ulcer or gastrointestinal bleeding, talk with your doctor before using these medicines. Aspirin should never be used in anyone under 18 years of age who is ill with a fever. It may cause severe liver damage. Don't use NSAID medicines if you are already taking one for another condition (like arthritis) or are on aspirin (such as for heart disease, or after a stroke) Don't use tobacco and or drink alcohol, which may worsen your symptoms. If medicines for vomiting were prescribed, take as directed. Once vomiting stops, then follow these guidelines: During the first 12 to 24 hours follow the diet below: Fruit juices. Apple, grape juice, clear fruit drinks, and electrolyte replacement drinks. Beverages. Soft drinks without caffeine; mineral water (plain or flavored), decaffeinated tea and coffee. Soups. Clear broth and bouillon Desserts. Plain gelatin, ice pops, and fruit juice bars. As you feel better, you may add 6 to 8 ounces of yogurt per day. During the next 24 hours you may add the following to the above: Hot cereal, plain toast, bread, rolls, crackers Plain noodles, rice, mashed potatoes, chicken noodle or rice soup Unsweetened canned fruit such as applesauce, bananas (avoid pineapple and citrus) Limit caffeine and chocolate. No spices or seasonings except salt. During the next 24 hours: Gradually resume a normal diet, as you feel better and your symptoms lessen. Follow-up care Follow up with your healthcare provider, or as advised. When to seek medical advice Call your healthcare provider right away if any of these occur: Constant right-sided lower belly pain or increasing general belly pain Continued vomiting (unable to keep liquids down) for 24 hours Vomiting blood or coffee grounds Swollen belly Frequent diarrhea (more than 5 times a day); blood (red or black color) or mucus in diarrhea Reduced urine output or extreme thirst Weakness, dizziness or fainting Unusually drowsy or confused Fever of 100.4 F (38 C) oral or higher, or as directed Yellow color of the eyes or skin [id number] The [employer]. [address] [place] [address]. All rights reserved. This information is not intended as a substitute for professional medical care. Always follow yourhealthcare professional's instructions. 01/26/2024 15:10:14 Protein in the Urine (Proteinuria) Protein in the Urine (Proteinuria) The kidney filters waste products and unwanted substances from the blood. These waste products end up in the urine. Protein is an important part of the blood and is not filtered out. Normally, there is no protein in the urine. Proteinuria occurs when some of the normal protein in the bloodstream ends up in the urine. Proteinin the urine will show up on a standard urine test. Protein in the urine can be a sign of serious disease or a harmless temporary condition. For example, heavy exercise or fever can cause temporary proteinuria. This is normal and will go away if the urine test is repeated. If urine tests continue to show protein in the urine, chronic kidney disease may be present. Commoncauses of kidney disease include diabetes, high blood pressure, and conditions that cause inflammation in the kidneys. Protein in the blood helps keep fluids from leaking out of the blood vessels and into the surrounding tissues. Mild or temporary proteinuria doesn't cause any symptoms. However, if too much protein is lost from the body, there may be swelling as fluid leaks from the blood vessels. Swelling may appear in legs, feet, and ankles or elsewhere such as lower back, face and eyelids. If proteinuria persists on repeat urine testing, more tests will be needed to figure out the cause.If the cause is still unclear, you may be told to see a kidney specialist. Home care No special home care is needed until the cause of your proteinuria is known. Follow-up care Follow up with your doctor, or as advised. Call 911 Call 911 if any of the following occur: Severe weakness, dizziness, fainting, drowsiness, or confusion Chest pain or shortness of breath When to seek medical advice Call your healthcare provider right away if any of these occur: Nausea or vomiting Unexpected weight gain or swelling in the legs, ankles, or around the eyes Dark colored urine Decreased or absent urine output [id number] The [employer]. [address] [place] [address], [place] [address]. All rights reserved. This information is not intended as a substitute for professional medical care. Always follow yourhealthcare professional's instructions. 01/26/2024 15:10:11 Hypertension, To Be Confirmed High Blood Pressure, To Be Confirmed, No Treatment Your blood pressure today was higher than normal. Sometimes anxiety or pain can cause a temporary rise in blood pressure. It later returns to normal. Blood pressure that is high only one time doesn tmean that you have high blood pressure (hypertension). High blood pressure is a chronic illness. But you should have your blood pressure measured again within the next few days to find out if it s still high. Blood pressure measurements are given as 2 numbers. Systolic blood pressure is the upper number. This is the pressure when the heart contracts. Diastolic blood pressure is the lower number. This is the pressure when the heart relaxes between beats. You will see your blood pressure readings written together. For example, a person with a systolic pressure of 118 and a diastolic pressure of 78 will have 118/78 written in the medical record. Blood pressure is categorized as normal, elevated, or stage 1 or stage 2 high blood pressure: Normal blood pressure is systolic of less than 120 and diastolic of less than 80 (120/80) Elevated blood pressure is systolic of 120 to 129 and diastolic less than 80 Stage 1 high blood pressure is systolic is 130 to 139 or diastolic between 80 to 89 Stage 2 high blood pressure is when systolic is 140 or higher or the diastolic is 90 or higher Lifestyle changes such as weight loss, exercise, and quitting smoking, can help manage your blood pressure. Have your blood pressure checked regularly to be sure it is under control. Home care To track your blood pressure, your provider may ask you to come into the office at different times and on different days. If your healthcare provider asks you to check your readings at home, ask him or her what times of the day to test and for how many days. Before you leave the office, ask your provider to show you how to take your blood pressure and be sure to ask questions if you don't understand something. Consider buying an automatic blood pressure monitor. Ask your provider for a recommendation as wellas the proper size cuff to fit your arm. You can buy blood pressure monitors at most pharmacies. The [place] [employer] recommends the following guidelines for home blood pressure monitoring: Don't smoke or drink coffee or other caffeinated drinks for 30 minutes before taking your blood pressure. Go to the bathroom before the test. Relax for 5 minutes before taking the measurement. Sit with your back supported (don't sit on a couch or soft chair); keep your feet on the floor uncrossed. Place your arm on a solid flat surface (like a table) with the upper part of the arm at heartlevel. Place the middle of the cuff directly above the bend of the elbow. Check the monitor's instruction manual for an illustration. Take multiple readings. When you measure, take 2 to 3 readings one minute apart and record all of the results. Take your blood pressure at the same time every day, or as your healthcare provider recommends. Record the date, time, and blood pressure reading. Take the record with you to your next medical appointment. If your blood pressure monitor has a built-in memory, simply take the monitor with you to your next appointment. Call your provider if you have several high readings. Don't be frightened by a single high blood pressure reading, but if you get several high readings, check in with your healthcare provider. Note: When blood pressure reaches a systolic (top number) of 180 or higher OR diastolic (bottom number) of 110 or higher, seek emergency medical treatment. Follow-up care Keep all of your follow up appointments. If your blood pressure is more than 120 over 80 on 2 out of 3 days, you will need to follow up with your healthcare provider for more evaluation and treatment. Don t put this off! High blood pressure can be treated. High blood pressure that s not treated raises your risk for heart attack, heart failure, and stroke. When to seek medical advice Call your healthcare provider right away if any of these occur: Blood pressure reaches a systolic (top number) of 180 or higher, OR diastolic (bottom number) of 110 or higher Chest pain or shortness of breath Severe headache Throbbing or rushing sound in the ears Nosebleed Sudden severe pain in your belly (abdomen) Extreme drowsiness, confusion, or fainting Dizziness or dizziness with spinning sensation (vertigo) Weakness of an arm or leg or one side of the face You have problems speaking or seeing [id number] [employer] [place] [address]. All rights reserved. This information is not intended as a substitute for professional medical care. Always follow yourhealthcare professional's instructions. 01/26/2024 15:10:08 High Blood Sugar (Hyperglycemia) High Blood Sugar (Hyperglycemia) Too much sugar (glucose) in your blood is called high blood sugar (hyperglycemia). This can lead toa dangerous condition called ketoacidosis. In severe cases, it can lead to fluid loss (dehydration)and coma. Possible causes of high blood sugar Having a poor treatment plan for diabetes Being sick Being under stress Taking certain medicines, such as steroids Eating too much food, especially carbohydrates Being less active than normal Not taking enough diabetes medicine Symptoms of high blood sugar High blood sugar may not cause symptoms. If you do have symptoms, they may include: Thirst Frequent need to urinate Feeling tired or drowsy Nausea and vomiting Itchy, dry skin Blurry vision Fast breathing and breath that smells fruity Weakness Dizziness Wounds or skin infections that don t heal Unexplained weight loss if hyperglycemia lasts for more than a few days What to do Do the following: Check your blood sugar. Drink plenty of sugar-free, caffeine-free liquids such as water. Don t drink fruit juice. Check your blood sugar again every 4 hours. If you take insulin or diabetes medicines, follow your sick-day plan for taking medicine. Call your healthcare provider if you are not able to eat. Check your blood or urine for ketones as directed. Call your provider if your blood sugar and ketones don't go back to your target range. If the value is high, take your diabetes medicines as prescribed. And check your blood sugar more often. Doses of medicines such as insulin can be increased slightly if blood sugars stay high. But your provider must approve this. Preventing high blood sugar To help keep your blood sugar from getting too high: Control stress. When you're ill, follow your sick-day plan. Follow your meal plan. Eat only the amount of food on your meal plan. Stick to your exercise plan. Take your insulin or diabetes medicines as directed by your healthcare team. Also test your blood sugar as directed. If the plan is not working for you, discuss it with your healthcare provider. Other things to do Carry a medical ID card or a [employer] USB drive. Or wear a medical alert bracelet or necklace. It should say that you have diabetes. It should also say what to do in case you pass out or go into a coma. Make sure family, friends, and coworkers know the signs of high blood sugar. Tell them what to do if your blood sugar gets very high and you can t help yourself. Talk with your healthcare team about other things you can do to prevent high blood sugar. Special note: Drink plenty of sugar-free and caffeine-free liquids when you feel symptoms of hyperglycemia. Call your healthcare provider if you keep having episodes of high blood sugar. [id number] The [employer]. [address] [place] [address]. All rights reserved. This information is not intended as a substitute for professional medical care. Always follow yourhealthcare professional's instructions. 01/26/2024 15:10:05 Dehydration (Adult) Dehydration (Adult) Dehydration occurs when your body loses too much fluid. This may be the result of prolonged vomiting or diarrhea, excessive sweating, or a high fever. It may also happen if you don t drink enough fluid when you re sick or out in the heat. Misuse of diuretics (water pills) can also be a cause. Symptoms include thirst and decreased urine output. You may also feel dizzy, weak, fatigued, or very drowsy. The diet described below is usually enough to treat dehydration. In some cases, you may need medicine. Home care Drink at least 12 8-ounce glasses of fluid every day to resolve the dehydration. Fluid may include water; orange juice; lemonade; apple, grape, or cranberry juice; clear fruit drinks; electrolyte replacement and sports drinks; and teas and coffee without caffeine. Don't drink alcohol. If you have been diagnosed with a kidney disease, ask your doctor how much and what types of fluids you should drink to prevent dehydration. If you have kidney disease, fluid can build up in the body. This can be dangerous to your health. If you have a fever, muscle aches, or a headache as a result of a cold or flu, you may take acetaminophen or ibuprofen, unless another medicine was prescribed. If you have chronic liver or kidney disease, or have ever had a stomach ulcer or gastrointestinal bleeding, talk with your healthcare provider before using these medicines. Don't take aspirin if you are younger than 18 and have a fever. Asp irin raises the chance for severe liver injury. Follow-up care Follow up with your healthcare provider, or as advised. When to seek medical advice Call your healthcare provider right away if any of these occur: Continued vomiting Frequent diarrhea (more than 5 times a day); blood (red or black color) or mucus in diarrhea Blood in vomit or stool Swollen abdomen or increasing abdominal pain Weakness, dizziness, or fainting Unusual drowsiness or confusion Reduced urine output or extreme thirst Fever of 100.4 F (38 C) or higher [id number] The [employer]. [address] [place] [address]. All rights reserved. This information is not intended as a substitute for professional medical care. Always follow yourhealthcare professional's instructions. 01/26/2024 15:10:01 Abdominal Pain Abdominal Pain Abdominal pain is pain in the stomach or belly area. Everyone has this pain from time to time. In many cases it goes away on its own. But abdominal pain can sometimes be due to a serious problem, such as appendicitis. So it s important to know when to get help. Causes of abdominal pain There are many possible causes of abdominal pain. Common causes in adults include: Constipation, diarrhea, or gas Stomach acid flowing back up into the esophagus (acid reflux or heartburn) Severe acid reflux, called GERD (gastroesophageal reflux disease) A sore in the lining of the stomach or small intestine (peptic ulcer) Inflammation of the gallbladder, liver, or pancreas Gallstones or kidney stones Appendicitis Intestinal blockage An internal organ pushing through a muscle or other tissue (hernia) Urinary tract infections In women, menstrual cramps, fibroids, ovarian cysts, pelvic inflammatory disease, or endometriosis Inflammation or infection of the intestines, including Crohn's disease and ulcerative colitis Irritable bowel syndrome Diagnosing the cause of abdominal pain Your healthcare provider will give you a physical exam help find the cause of your pain. If needed,you will have tests. Belly pain has many possible causes. So it can be hard to find the reason for your pain. Giving details about your pain can help. Tell your provider where and when you feel the pain, and what makes it better or worse. Also let your provider know if you have other symptoms such as: Fever Tiredness Upset stomach (nausea) Vomiting Changes in bathroom habits Blood in the stool or black, tarry stool Weight loss that you can't explain (involuntary weight loss?) Also report any family history of stomach or intestinal problems, or cancers. Tell your provider about all your alcohol use and drug use. Tell your provider about all medicines you use, including herbs, vitamins, and supplements. Treating abdominal pain Some causes of pain need emergency medical treatment right away. These include appendicitis or a bowel blockage. Other problems can be treated with rest, fluids, or medicines. Your healthcare provider can give you specific instructions for treatment or self-care based on what is causing your pain. If you have vomiting or diarrhea, sip water or other clear fluids. When you are ready to eat solid foods again, start with small amounts of [id number]-gt-[id number], low- fat foods. These include apple sauce, toast, or crackers. When to get medical care Call 911 or go to the hospital right away if you: Can t pass stool and are vomiting Are vomiting blood or have bloody diarrhea or black, tarry diarrhea Have chest, neck, or shoulder pain Feel like you might pass out Have pain in your shoulder blades with nausea Have sudden, severe belly pain Have new, severe pain unlike any you have felt before Have a belly that is rigid, hard, and hurts to touch Call your healthcare provider if you have: Pain for more than 5 days Bloating for more than 2 days Diarrhea for more than 5 days A fever of 100.4 F (38 C) or higher, or as directed by your healthcare provider Pain that gets worse Weight loss for no reason Continued lack of appetite Blood in your stool How to prevent abdominal pain Here are some tips to help prevent abdominal pain: Eat smaller amounts of food at each meal. Don't eat greasy, fried, or other high-fat foods. Don't eat foods that give you gas. Exercise regularly. Drink plenty of fluids. To help prevent GERD symptoms: Quit smoking. Reduce alcohol and foods that increase stomach acid. Don't use aspirin or tikb-voh-pgagwvp pain and fever medicines, if possible. This includes nonsteroidal anti-inflammatory drugs (NSAIDs). Lose excess weight. Finish eating at least 2 hours before you go to bed or lie down. Raise the head of your bed. [id number] The [employer]. [address] [place] [address]. All rights reserved. This information is not intended as a substitute for professional medical care. Always follow yourhealthcare professional's instructions. Follow Up Care 01/26/2024 11:41:11 With:Your PCP Address:Unknown When:2-4 days Comments:Schedule appointment as soon as possibleReturn to ED if symptoms worsenPedialyte only for 6 hours and if better increase to brat diet then to full dietGo back to Pedialyte for 4 to 6 hours of time when nauseaRecord blood sugar 2 times daily log and take to the office for recheck and medication adjus tment as neededFollow-up for blood pressure, repeat labs, repeat urine dip for protein With:NONE PHYSICIAN Address:Unknown When:2-4 days [facility] 03-20-2024 Note Discharge Instructions Thank you for allowing [facility] to assist you with your healthcare needs. The following is importantdischarge information regarding your hospital visit. Diagnosis from Today's Visit Abdominal pain Abdominal pain Dehydration Hyperglycemia Hypertension Proteinuria Vomiting What to Do Next Instructions from Your Care Team No qualifying data available. Post Acute Orders No qualifying data available. You Need to Schedule the Following Appointments Follow Up with Your PCP When Within 2-4 days Why: Schedule appointment as soon as possible Return to ED if symptoms worsen Pedialyte only for 6 hours and if better increase to brat diet then to full diet Go back to Pedialyte for 4 to 6 hours of time when nausea Record blood sugar 2 times daily log and take to the office for recheck and medication adjustment as needed Follow-up for blood pressure, repeat labs, repeat urine dip for protein Follow Up with NONE PHYSICIAN When Within 2-4 days Allergies NKA Medications Please ask your primary doctor or pharmacist before taking any other medication not listed, including over the counter drugs, herbal medications, vitamins and or supplements as they may interact withyour home medications. What How Much When Why Instructions Last Dose Unchanged benztropine (Cogentin) 1 Milligram by mouth Two (2) times a day Unchanged escitalopram (Lexapro 10 mg oral tablet) 1 tab(s) by mouth Once a day Unchanged metFORMIN (metFORMIN 500 mg oral tablet, extended release) 2 tab(s) by mouth Two (2) times a day DM2, uncontrolled. A1c 14.9% Unchanged nicotine (Nicoderm CQ patch 21-14-7mg TAPER (Disch Rx)) Transdermal Every 24 hours Unchanged perphenazine (perphenazine 4 mg oral tablet) 1 tab(s) by mouth Three (3) times a day Unchanged traZODone (traZODone 50 mg oral tablet) 1 tab(s) by mouth Daily at bedtime as needed for Sleep / Insomnia Please take this list to your next doctor s visit. Bring all medications you take, including over the counter medications, herbals and other supplements with you to your doctor s visit. Patients and families are reminded to discard old lists and to update any records with all medication providers or retail pharmacies. [employer] Vomiting (Adult) Vomiting is a common symptom that may be due to different causes. These include gastroenteritis (stomach flu), food poisoning and gastritis. There are other more serious causes of vomiting which may be hard to diagnose early in the illness. Therefore, it is important to watch for the warning signs listed below. The main danger from repeated vomiting is dehydration. This is due to excess loss of water and minerals from the body. When this occurs, your body fluids must be replaced. Home care If symptoms are severe, rest at home for the next 24 hours. Because your symptoms may be from an infection, wash your hands often and well. If soap and water are not available, use alcohol-based res counselor to keep from spreading the infection to others. Wash your hands for at least 20 seconds. Humming the happy birthday song twice while you wash is aneasy way to make sure you've washed for 20 seconds. Wash your hands after using the toilet, before and after preparing food, before eating food, after changing a diaper, cleaning a wound, caring for a sick person, and blowing your nose, coughing, or sneezing. You should also wash your hands after caring for someone who is sick, touching pet food, ortreats, and touching an animal, or animal waste. You may use acetaminophen or NSAID medicines like ibuprofen or naproxen to control fever, unless another medicine was prescribed. If you have chronic liver or kidney disease or ever had a stomach ulcer or gastrointestinal bleeding, talk with your doctor before using these medicines. Aspirin should never be used in anyone under 18 years of age who is ill with a fever. It may cause severe liver damage. Don't use NSAID medicines if you are already taking one for another condition (like arthritis) or are on aspirin (such as for heart disease, or after a stroke) Don't use tobacco and or drink alcohol, which may worsen your symptoms. If medicines for vomiting were prescribed, take as directed. Once vomiting stops, then follow these guidelines: During the first 12 to 24 hours follow the diet below: Fruit juices. Apple, grape juice, clear fruit drinks, and electrolyte replacement drinks. Beverages. Soft drinks without caffeine; mineral water (plain or flavored), decaffeinated tea and coffee. Soups. Clear broth and bouillon Desserts. Plain gelatin, ice pops, and fruit juice bars. As you feel better, you may add 6 to 8 ounces of yogurt per day. During the next 24 hours you may add the following to the above: Hot cereal, plain toast, bread, rolls, crackers Plain noodles, rice, mashed potatoes, chicken noodle or rice soup Unsweetened canned fruit such as applesauce, bananas (avoid pineapple and citrus) Limit caffeine and chocolate. No spices or seasonings except salt. During the next 24 hours: Gradually resume a normal diet, as you feel better and your symptoms lessen. Follow-up care Follow up with your healthcare provider, or as advised. When to seek medical advice Call your healthcare provider right away if any of these occur: Constant right-sided lower belly pain or increasing general belly pain Continued vomiting (unable to keep liquids down) for 24 hours Vomiting blood or coffee grounds Swollen belly Frequent diarrhea (more than 5 times a day); blood (red or black color) or mucus in diarrhea Reduced urine output or extreme thirst Weakness, dizziness or fainting Unusually drowsy or confused Fever of 100.4 F (38 C) oral or higher, or as directed Yellow color of the eyes or skin The [employer]. [address] [place] [address]. All rights reserved. This information is not intended as a substitute for professional medical care. Always follow yourhealthcare professional's instructions. Protein in the Urine (Proteinuria) The kidney filters waste products and unwanted substances from the blood. These waste products end up in the urine. Protein is an important part of the blood and is not filtered out. Normally, there is no protein in the urine. Proteinuria occurs when some of the normal protein in the bloodstream ends up in the urine. Proteinin the urine will show up on a standard urine test. Protein in the urine can be a sign of serious disease or a harmless temporary condition. For example, heavy exercise or fever can cause temporary proteinuria. This is normal and will go away if the urine test is repeated. If urine tests continue to show protein in the urine, chronic kidney disease may be present. Commoncauses of kidney disease include diabetes, high blood pressure, and conditions that cause inflammation in the kidneys. Protein in the blood helps keep fluids from leaking out of the blood vessels and into the surrounding tissues. Mild or temporary proteinuria doesn't cause any symptoms. However, if too much protein is lost from the body, there may be swelling as fluid leaks from the blood vessels. Swelling may appear in legs, feet, and ankles or elsewhere such as lower back, face and eyelids. If proteinuria persists on repeat urine testing, more tests will be needed to figure out the cause.If the cause is still unclear, you may be told to see a kidney specialist. Home care No special home care is needed until the cause of your proteinuria is known. Follow-up care Follow up with your doctor, or as advised. Call 911 Call 911 if any of the following occur: Severe weakness, dizziness, fainting, drowsiness, or confusion Chest pain or shortness of breath When to seek medical advice Call your healthcare provider right away if any of these occur: Nausea or vomiting Unexpected weight gain or swelling in the legs, ankles, or around the eyes Dark colored urine Decreased or absent urine output [employer]. [address] [place], [place] [id number]. All rights reserved. This information is not intended as a substitute for professional medical care. Always follow yourhealthcare professional's instructions. High Blood Pressure, To Be Confirmed, No Treatment Your blood pressure today was higher than normal. Sometimes anxiety or pain can cause a temporary rise in blood pressure. It later returns to normal. Blood pressure that is high only one time doesn tmean that you have high blood pressure (hypertension). High blood pressure is a chronic illness. But you should have your blood pressure measured again within the next few days to find out if it s still high. Blood pressure measurements are given as 2 numbers. Systolic blood pressure is the upper number. This is the pressure when the heart contracts. Diastolic blood pressure is the lower number. This is the pressure when the heart relaxes between beats. You will see your blood pressure readings written together. For example, a person with a systolic pressure of 118 and a diastolic pressure of 78 will have 118/78 written in the medical record. Blood pressure is categorized as normal, elevated, or stage 1 or stage 2 high blood pressure: Normal blood pressure is systolic of less than 120 and diastolic of less than 80 (120/80) Elevated blood pressure is systolic of 120 to 129 and diastolic less than 80 Stage 1 high blood pressure is systolic is 130 to 139 or diastolic between 80 to 89 Stage 2 high blood pressure is when systolic is 140 or higher or the diastolic is 90 or higher Lifestyle changes such as weight loss, exercise, and quitting smoking, can help manage your blood pressure. Have your blood pressure checked regularly to be sure it is under control. Home care To track your blood pressure, your provider may ask you to come into the office at different times and on different days. If your healthcare provider asks you to check your readings at home, ask him or her what times of the day to test and for how many days. Before you leave the office, ask your provider to show you how to take your blood pressure and be sure to ask questions if you don't understand something. Consider buying an automatic blood pressure monitor. Ask your provider for a recommendation as wellas the proper size cuff to fit your arm. You can buy blood pressure monitors at most pharmacies. The [place] [employer] recommends the following guidelines for home blood pressure monitoring: Don't smoke or drink coffee or other caffeinated drinks for 30 minutes before taking your blood pressure. Go to the bathroom before the test. Relax for 5 minutes before taking the measurement. Sit with your back supported (don't sit on a couch or soft chair); keep your feet on the floor uncrossed. Place your arm on a solid flat surface (like a table) with the upper part of the arm at heartlevel. Place the middle of the cuff directly above the bend of the elbow. Check the monitor's instruction manual for an illustration. Take multiple readings. When you measure, take 2 to 3 readings one minute apart and record all of the results. Take your blood pressure at the same time every day, or as your healthcare provider recommends. Record the date, time, and blood pressure reading. Take the record with you to your next medical appointment. If your blood pressure monitor has a built-in memory, simply take the monitor with you to your next appointment. Call your provider if you have several high readings. Don't be frightened by a single high blood pressure reading, but if you get several high readings, check in with your healthcare provider. Note: When blood pressure reaches a systolic (top number) of 180 or higher OR diastolic (bottom number) of 110 or higher, seek emergency medical treatment. Follow-up care Keep all of your follow up appointments. If your blood pressure is more than 120 over 80 on 2 out of 3 days, you will need to follow up with your healthcare provider for more evaluation and treatment. Don t put this off! High blood pressure can be treated. High blood pressure that s not treated raises your risk for heart attack, heart failure, and stroke. When to seek medical advice Call your healthcare provider right away if any of these occur: Blood pressure reaches a systolic (top number) of 180 or higher, OR diastolic (bottom number) of 110 or higher Chest pain or shortness of breath Severe headache Throbbing or rushing sound in the ears Nosebleed Sudden severe pain in your belly (abdomen) Extreme drowsiness, confusion, or fainting Dizziness or dizziness with spinning sensation (vertigo) Weakness of an arm or leg or one side of the face You have problems speaking or seeing [id number] The [employer]. [address] [place] [address], [place] [address]. All rights reserved. This information is not intended as a substitute for professional medical care. Always follow yourhealthcare professional's instructions. High Blood Sugar (Hyperglycemia) Too much sugar (glucose) in your blood is called high blood sugar (hyperglycemia). This can lead toa dangerous condition called ketoacidosis. In severe cases, it can lead to fluid loss (dehydration)and coma. Possible causes of high blood sugar Having a poor treatment plan for diabetes Being sick Being under stress Taking certain medicines, such as steroids Eating too much food, especially carbohydrates Being less active than normal Not taking enough diabetes medicine Symptoms of high blood sugar High blood sugar may not cause symptoms. If you do have symptoms, they may include: Thirst Frequent need to urinate Feeling tired or drowsy Nausea and vomiting Itchy, dry skin Blurry vision Fast breathing and breath that smells fruity Weakness Dizziness Wounds or skin infections that don t heal Unexplained weight loss if hyperglycemia lasts for more than a few days What to do Do the following: Check your blood sugar. Drink plenty of sugar-free, caffeine-free liquids such as water. Don t drink fruit juice. Check your blood sugar again every 4 hours. If you take insulin or diabetes medicines, follow your sick-day plan for taking medicine. Call your healthcare provider if you are not able to eat. Check your blood or urine for ketones as directed. Call your provider if your blood sugar and ketones don't go back to your target range. If the value is high, take your diabetes medicines as prescribed. And check your blood sugar more often. Doses of medicines such as insulin can be increased slightly if blood sugars stay high. But your provider must approve this. Preventing high blood sugar To help keep your blood sugar from getting too high: Control stress. When you're ill, follow your sick-day plan. Follow your meal plan. Eat only the amount of food on your meal plan. Stick to your exercise plan. Take your insulin or diabetes medicines as directed by your healthcare team. Also test your blood sugar as directed. If the plan is not working for you, discuss it with your healthcare provider. Other things to do Carry a medical ID card or a [employer] drive. Or wear a medical alert bracelet or necklace. It should say that you have diabetes. It should also say what to do in case you pass out or go into a coma. Make sure family, friends, and coworkers know the signs of high blood sugar. Tell them what to do if your blood sugar gets very high and you can t help yourself. Talk with your healthcare team about other things you can do to prevent high blood sugar. Special note: Drink plenty of sugar-free and caffeine-free liquids when you feel symptoms of hyperglycemia. Call your healthcare provider if you keep having episodes of high blood sugar. [phone] The [employer]. [address] [place] [address]. All rights reserved. This information is not intended as a substitute for professional medical care. Always follow yourhealthcare professional's instructions. Dehydration (Adult) Dehydration occurs when your body loses too much fluid. This may be the result of prolonged vomiting or diarrhea, excessive sweating, or a high fever. It may also happen if you don t drink enough fluid when you re sick or out in the heat. Misuse of diuretics (water pills) can also be a cause. Symptoms include thirst and decreased urine output. You may also feel dizzy, weak, fatigued, or very drowsy. The diet described below is usually enough to treat dehydration. In some cases, you may need medicine. Home care Drink at least 12 8-ounce glasses of fluid every day to resolve the dehydration. Fluid may include water; orange juice; lemonade; apple, grape, or cranberry juice; clear fruit drinks; electrolyte replacement and sports drinks; and teas and coffee without caffeine. Don't drink alcohol. If you have been diagnosed with a kidney disease, ask your doctor how much and what types of fluids you should drink to prevent dehydration. If you have kidney disease, fluid can build up in the body. This can be dangerous to your health. If you have a fever, muscle aches, or a headache as a result of a cold or flu, you may take acetaminophen or ibuprofen, unless another medicine was prescribed. If you have chronic liver or kidney disease, or have ever had a stomach ulcer or gastrointestinal bleeding, talk with your healthcare provider before using these medicines. Don't take aspirin if you are younger than 18 and have a fever. Asp irin raises the chance for severe liver injury. Follow-up care Follow up with your healthcare provider, or as advised. When to seek medical advice Call your healthcare provider right away if any of these occur: Continued vomiting Frequent diarrhea (more than 5 times a day); blood (red or black color) or mucus in diarrhea Blood in vomit or stool Swollen abdomen or increasing abdominal pain Weakness, dizziness, or fainting Unusual drowsiness or confusion Reduced urine output or extreme thirst Fever of 100.4 F (38 C) or higher The [employer]. [address] [place] [address]. All rights reserved. This information is not intended as a substitute for professional medical care. Always follow yourhealthcare professional's instructions. Abdominal Pain Abdominal pain is pain in the stomach or belly area. Everyone has this pain from time to time. In many cases it goes away on its own. But abdominal pain can sometimes be due to a serious problem, such as appendicitis. So it s important to know when to get help. Causes of abdominal pain There are many possible causes of abdominal pain. Common causes in adults include: Constipation, diarrhea, or gas Stomach acid flowing back up into the esophagus (acid reflux or heartburn) Severe acid reflux, called GERD (gastroesophageal reflux disease) A sore in the lining of the stomach or small intestine (peptic ulcer) Inflammation of the gallbladder, liver, or pancreas Gallstones or kidney stones Appendicitis Intestinal blockage An internal organ pushing through a muscle or other tissue (hernia) Urinary tract infections In women, menstrual cramps, fibroids, ovarian cysts, pelvic inflammatory disease, or endometriosis Inflammation or infection of the intestines, including Crohn's disease and ulcerative colitis Irritable bowel syndrome Diagnosing the cause of abdominal pain Your healthcare provider will give you a physical exam help find the cause of your pain. If needed,you will have tests. Belly pain has many possible causes. So it can be hard to find the reason for your pain. Giving details about your pain can help. Tell your provider where and when you feel the pain, and what makes it better or worse. Also let your provider know if you have other symptoms such as: Fever Tiredness Upset stomach (nausea) Vomiting Changes in bathroom habits Blood in the stool or black, tarry stool Weight loss that you can't explain (involuntary weight loss?) Also report any family history of stomach or intestinal problems, or cancers. Tell your provider about all your alcohol use and drug use. Tell your provider about all medicines you use, including herbs, vitamins, and supplements. Treating abdominal pain Some causes of pain need emergency medical treatment right away. These include appendicitis or a bowel blockage. Other problems can be treated with rest, fluids, or medicines. Your healthcare provider can give you specific instructions for treatment or self-care based on what is causing your pain. If you have vomiting or diarrhea, sip water or other clear fluids. When you are ready to eat solid foods again, start with small amounts of vcco-bl-bqrtim, low- fat foods. These include apple sauce, toast, or crackers. When to get medical care Call 911 or go to the hospital right away if you: Can t pass stool and are vomiting Are vomiting blood or have bloody diarrhea or black, tarry diarrhea Have chest, neck, or shoulder pain Feel like you might pass out Have pain in your shoulder blades with nausea Have sudden, severe belly pain Have new, severe pain unlike any you have felt before Have a belly that is rigid, hard, and hurts to touch Call your healthcare provider if you have: Pain for more than 5 days Bloating for more than 2 days Diarrhea for more than 5 days A fever of 100.4 F (38 C) or higher, or as directed by your healthcare provider Pain that gets worse Weight loss for no reason Continued lack of appetite Blood in your stool How to prevent abdominal pain Here are some tips to help prevent abdominal pain: Eat smaller amounts of food at each meal. Don't eat greasy, fried, or other high-fat foods. Don't eat foods that give you gas. Exercise regularly. Drink plenty of fluids. To help prevent GERD symptoms: Quit smoking. Reduce alcohol and foods that increase stomach acid. Don't use aspirin or qlnx-ueo-zntpmmr pain and fever medicines, if possible. This includes nonsteroidal anti-inflammatory drugs (NSAIDs). Lose excess weight. Finish eating at least 2 hours before you go to bed or lie down. Raise the head of your bed. [phone] The [employer]. [address] [place] [address]. All rights reserved. This information is not intended as a substitute for professional medical care. Always follow yourhealthcare professional's instructions. Additional Information VACCINATE! IT SAVES LIVES! Members of the community who have not yet received the COVID-19 vaccine and would like to receive it can visit one of [facility] vaccine clinics. There are many vaccine clinic locations within the [facility]. For locations and available times, please visit www.gettheshot.coronavirus.[place].gov/. It is important to note that some COVID mobile vaccine clinics are held outdoors and may be canceled in rainy or stormy conditions. To learn more about pediatric vaccinations (ages 5-11), we invite you to visit the [facility] webpage. https://www.[facility].org/pages/2207-Fgtnb-Mviiaqhhbhc-Mixcbgsisl-Pywiw-Omx stions.htmlTo learn more about the COVID-19 vaccine, we invite you to visit the CDC website for a list of frequently asked questions. https://www.cdc.gov/coronavirus/2019-ncov/vaccines/faq.html [place] [employer] Patient Portal Access Instructions: Stay connected with your healthcare team and access your personal medical information anytime with the [facility] Patient Portal. If you would like a full copy of your medical records please contact the [facility] Medical Records Department Wednesday through Wednesday between 8a.m. and 4:30p.m. Please follow the directions below to access the portal: 1.Access the email account you provided upon registration to the [facility].2.Look for an invitation email from [facility].3.Open the email and access the invitation link: Accept Invitation to [facility].Fill in the required orona to create your account. Sign into www.Vivox with your username and password that you created in the above steps to stay up to date. You can then view a summary of results, a summary of your visits, and the ability to download your summaries to your computer or send the information securely to a physician. Remember that your healthcare information is confidential, so carefully consider who you will allow to register on the [facility] Patient Portal for access to your information. You can also access the [facility] Patient Portal on the Music Messenger (MM) tita. Simply click on Health Records under [employer] and then click on the Friend[employer] logo. HOW TO SAFELY DISPOSE OF PRESCRIPTION MEDICATIONS Please use one of the following methods to safely dispose of your unused medications. 1.Use a drug disposal kit: the drug disposal pouch allows you to safely discard your old and unuseddrugs. Ask your nurse to give you one when you are discharged.2.Visit a local take-back location: Many local pharmacies and police departments have programs that collect old and unwanted prescriptiondrugs. Call your local pharmacy or go to http://bit.WizeHive/8M2Wz2d to find one close to you.3.Make use of household items: Use cat litter or old coffee grounds to dispose medications if other options arenot available. Mix your drugs with these household products, seal them in an airtight container andthrow it into the garbage. Call [facility]: [phone] to be sure your drugs can be disposed of in this way. Some medicines may require a different approach.4.Never flush your medications down the toilet. IF YOU HAVE BEEN PRESCRIBED AN OPIOIDS FOR PAIN If you have been prescribed an opioid (such as hydrocodone, oxycodone or morphine), it is critical to understand the possible side effects and risks of opioid pain medications. Even when taken as directed, opioids can have several side effects including: Tolerance, meaning you might need to take more of a medication for the same pain relief. Nausea, vomiting and/or constipation. Sleepiness, dizziness, dry mouth, confusion, depression or itching. Physical dependence, meaning you have withdrawal symptoms when a medication is stopped ? this can develop within a few days. KNOW YOUR RESPONSIBILITIES It is important to know exactly how much and how often to take the opioid pain medications you are prescribed. Never take opioids in higher amounts or more often than prescribed. Do not combine opioids with alcohol or other drugs that cause drowsiness, such as benzodiazepines, also known as benzos,including diazepam and alprazolam, muscle relaxants or sleep aids. Never sell or share prescriptionopioids. This is illegal. Store opioids in a secure place and out of reach of others (including children, family, friends and visitors). The last page(s) of this document has been signed and retained as a CHART COPY Signatures Patient Education Materials Vomiting (Adult) Protein in the Urine (Proteinuria) Hypertension, To Be Confirmed High Blood Sugar (Hyperglycemia) Dehydration (Adult) Abdominal Pain Medication Leaflets My discharge plan and instructions have been reviewed and explained to me and I,WESTON GAMEZ understand my current condition and have read and understand these discharge instructions. I have received a written copy of the plan/instructions. If I have questions, I am aware that I should contact my doctor. 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 Multiplanar reformatted images are provided for review. Automated exposure control, iterative reconstruction, and/or weight based adjustment of the mA/kV was utilized to reduce the radiation dose to as low as reasonably achievable. COMPARISON: None. HISTORY: ORDERING SYSTEM PROVIDED HISTORY: Reason for Exam: pain FINDINGS: No osseous abnormality identified. The lung bases are unremarkable. Minor fatty infiltration of the liver is evident adjacent to the falciform ligament fissure. No other focal liver lesions seen. Spleen, adrenal glands and pancreas are unremarkable. No renal abnormality seen. No adenopathy, free air or free fluid seen. The urinary bladder is grossly normal. No GI tract abnormality is visible. No additional contributory finding. IMPRESSION: No acute process. Interpreted by: Vel Patel MD Preliminary Report By: Vel Patel MD Electronically signed By Vel Patel MD Dictated Date: 01/26/2024 1:09:14 PM Prelim Date: 01/26/2024 1:11:46 PM Sign Date: 01/26/2024 1:11:46 PM Ordering Provider: [facility]03-20-2024 Miscellaneous Notes* Telephone Encounter - Autumn Boland RN - 01/26/2024 11:15 AM EDT Protocol recommends go to ER now. Pts is going to drive him and is going to bring him to [facility] instead of [facility]. Care plan reviewed with patient. Patient voices understanding. Advised patient that if symptoms get worse to call 911. Reason for Disposition [1] SEVERE vomiting (e.g., 6 or more times/day) AND [2] present > 8 hours (Exception: Patient sounds well, is drinking liquids, does not sound dehydrated, and vomiting has lasted less than 24 hours.) Answer Assessment - Initial Assessment Questions 1. VOMITING SEVERITY: How many times have you vomited in the past 24 hours? - MILD: 1 - 2 times/day - MODERATE: 3 - 5 times/day, decreased oral intake without significant weight loss or symptoms of dehydration - SEVERE: 6 or more times/day, vomits everything or nearly everything, with significant weight loss, symptoms of dehydration Severe, reports since 4 am 10 times. 2. ONSET: The vomiting began 3 days ago. 3. FLUIDS: Pt has not been able to keep any food or fluids down for 2 days. The went to [facility] ER yesterday and he was give 1 bag of IV fluids and he was sent home. 4. ABDOMEN PAIN: Pt is having RLQ abdomen pain, states it is a 9/10 crampy, sharp, constant. 5. DIARRHEA: Denies any diarrhea. 6. CONTACTS: Denies anyone else in the family with the same symptoms. 7. CAUSE: Does not know what is causing his vomiting. He was told at [facility] ER it could be because of his Marijuana smoking, but he would have to stop smoking for 30 days to find out. Pt has not smoked in 3 days. His states he has smoked for 3 years and has gotten the same stuff from the same dispensary. 8. HYDRATION STATUS: Pt has not been able to keep any food or fluids down for 2 days. 9. OTHER SYMPTOMS: Pt has a headache yesterday. Pt reports vertigo, high BP 187/ something (startedon 10 mg of Lisinopril in ER but BP still high is not able to take anything by mouth), high BS, andketones in urine yesterday in ER. Pt denies fever, vomiting blood or coffee grounds, or recent headinjury. 10. : N/A Protocols used: [id number] [facility] [place] Discharge summary Author Ryan Mccracken [facility] January 25, 2024 11:03pm Note Date/Time January 25, 2024 8:2 2pm [facility] Medical Records Department [address] [place] [address] Emergency Department Summary 01/25/24 MR#: [id number] Acct: [id number] Name: WESTON GAMEZ Rep #:[id number] : 1985 38 From: Ryan Mccracken MD PCP: Austin Camarena [employer] Status:REG ER Location: ED HPI HPI - GI History of Present Illness Chief Complaint: Abd Pain Detail of Chief Complaint: Abdominal pain with nausea and vomiting x 15 Informant: patient and spouse/S.O. Abdominal Pain/Flank Pain Onset: Yesterday Context: Sudden Onset Timing: Continuous Quality: Aching and Dull Location: RUQ and RLQ Current Severity: Moderate Maximum Severity: Severe Worsened by: Car ride and Movement Relieved by: Nothing Nausea/Vomiting/Emesis GI Symptom: Positive for Nausea and Vomiting (Per 15 times since midnight) Diarrhea/Melena/Hematochezia GI Symptom: Negative for Diarrhea, Melena or Hematochezia Associated Symptoms Associated Symptoms: Negative for Dysuria, Frequency, Hematuria or Urgency Narrative Narrative: Patient is a 38-year-old male with past medical history of type 2 diabetes and bipolar affective disorder who presents with abdominal pain that started upper abdomen and now also complains of right lower quadrant abdominal pain. Has had nausea vomiting x 10-15 per . He has no appetite. He cannot find a position of comfort. He denies flank pain. He denies history of renal or ureterolithiasis. He denies dysuria, frequency, urgency or hematuria. He says movement causes him pain. The car right also caused him pain. He denied fever or chills. Denies headache, visual, ocular auditory symptoms. He denies cardiac or respiratory symptoms. He denies myalgias or arthralgias. He had no ill contacts. He has not noted skin lesions. He denies trauma. Prior similar symptoms: No Recent Illness/Hospitalization: No PFSH PFS Medical History (Updated 01/25/24 @ 23:[address] Ryan Mccracken MD) Bipolar 1 disorder Diabetes mellitus Schizo-affective schizophrenia Home Medications glipizide 10 mg tablet, extended release 24 hr 10 mg PO DAILY 01/25/24 [History Last Taken Unknown] lisinopril 10 mg tablet 10 mg PO DAILY #30 tabs 01/25/24 [Rx Last Taken Unknown] Allergy/AdvReac Type Severity Reaction Status Date / Time No Known Allergies Allergy Verified 02/28/21 05:50 Social History (Updated 01/25/24 @ 21:[address] Ryan Mccracken MD) household members: spouse Smoking Status: Current every day smoker tobacco type: cigarettes ROS ROS ED Constitutional Constitutional ED: Reports chills and sweats; Denies fever(s) or subjective ENT ENT ED: Denies ear pain, rhinorrhea or sore throat Cardiovascular Cardiovascular: Denies chest pain, orthopnea, palpitations, paroxysmal nocturnaldyspnea or racing heartbeat Respiratory/Chest Respiratory/Chest: Denies cough, dyspnea, dyspnea on exertion, orthopnea, paroxysmal nocturnal dyspnea or sputum Gastrointestinal Gastrointestinal: Reports abdominal pain and nausea; Denies constipation, diarrhea or melena Genitourinary Genitourinary ED: Denies dysuria, hematuria or urinary frequency Musculoskeletal Musculoskeletal: Denies arthralgias, back pain, myalgias or neck pain Integumentary Denies rash Neurologic Neurologic: Denies headache(s), paresthesias or weakness Psychiatric Psychiatric: Denies anxiety or depression Endocrine Endocrinology: Denies polydipsia, polyphagia or polyuria Hematologic/Lymphatic Hematologic/Lymphatic: Denies easy bleeding or easy bruising EXAM Physical Exam Const Vital Signs: 01/25/24 18:51 01/25/24 19:55 01/25/24 20:55 Temperature 96.6 F L Temperature Source Temporal Pulse Rate 102 H 102 H 109 H Respiratory Rate 20 H 20 H 18 Blood Pressure 195/125 H 165/90 H 190/102 H Blood Pressure Mean 148 115 131 Pulse Ox 100 99 100 Oxygen Delivery Method Room Air Room Air Room Air 01/25/24 21:00 01/25/24 21:12 01/25/24 21:56 Temperature 97.5 F L Temperature Source Oral Pulse Rate 94 93 99 Respiratory Rate 12 16 18 Blood Pressure 202/117 H 186/111 H 182/96 H Blood Pressure Mean 145 136 124 Pulse Ox 99 93 100 Oxygen Delivery Method Room Air Room Air Room Air 01/25/24 22:19 Temperature 97.5 F L Temperature Source Pulse Rate 89 Respiratory Rate 20 H Blood Pressure 178/108 H Blood Pressure Mean 131 Pulse Ox 99 Oxygen Delivery Method Patient's had multiple elevated blood pressure readings. This may be due to pain. He is not any hypertensive meds. Since he is tachycardic we will give low-dose of labetalol. Positive well nourished and well developed Constitutional Narrative: Patient appears uncomfortable and ill. General Appearance ED: well developed; Negative for NAD or pallor HEENT Reports TM's clear and dry mucous membranes normocephalic and atraumatic Tympanic Membrane ED: Yes TM's clear Mouth ED: Yes dry mucous membranes Mouth: dry mucous membranes Eyes PERRL and EOMs intact bilaterally General Eye ED: Negative for pale conjunctiva or scleral icterus Resp normal respiratory effort and clear to auscultation bilaterally Cardio regular rhythm, S1 normal heart sound and S2 normal heart sound Rate: tachycardic GI no masses; Negative for non-tender or non-distended GI Narrative: Wrist template upper abdomen more so than lower. Inspection: abdominal distention Auscultation: hypoactive bowel sounds Palpation: tender RLQ (Tenderness is greater right lower quadrant and in the proximity of McBurney's point.) and RUQ and guarding RLQ; Negative for rigid, hepatomegaly, splenomegaly, hernia, mass or pulsatile mass Back/Spine no CVA tenderness Back/Spine Narrative: Inspection of the back is normal. Extremity full ROM General Extremety ED: Negative for edema or tenderness General Extremity: Negative for edema Neuro CN's II-XII intact bilaterally and moves all extremities Sensorium / Orientation: alert Psych mental status grossly normal and thought process normal Skin no wounds General Skin Exam: Negative for jaundice or pallor Lesions: no lesions Rashes: no rashes MDM MDM MDM Narrative Medical decision making narrative: Differential diagnosis is gastritis, abdominal pain unknown etiology, atypical presentation for cholelithiasis with colic, appendicitis, ureterolithiasis. Will obtain CBC, hepatic profile, lipase and electrolyte panel. Patient has been medicated with opiate analgesic as well as Zofran for his nausea and vomiting. Lab Data Attestation: I reviewed the patient's lab results. Lab results narrative: Count is elevated with shift. There is no bandemia. Hepatic profile is unremarkable. Lipase is normal. Labs: Laboratory Results - last 24 hr 01/25/24 01/25/24 01/25/24 19:50 19:50 19:50 WBC 13.0 H RBC 5.27 Hgb 15.0 Hct 44.7 MCV 84.8 MCH 28.5 MCHC 33.6 RDW Std Deviation 39.9 RDW Coeff of [place] 12.9 Plt Count 365 MPV 9.7 Immature Gran % (Auto) 0.500 Neut % (Auto) 71.6 H Lymph % (Auto) 21.7 [place] % (Auto) 5.3 Eos % (Auto) 0.4 Baso % (Auto) 0.5 Absolute Neuts (auto) 9.3 H Absolute Lymphs (auto) 2.82 Nucleated RBC % 0 Sodium 136 Potassium 3.8 Chloride 101 Carbon Dioxide 21.0 Anion Gap 14 BUN 19 H Creatinine 1.05 Estim Creat Clear Calc 85.54 Est GFR (MDRD) Af Amer 102 Est GFR (MDRD) Non-Af 84 BUN/Creatinine Ratio 18.1 Glucose 278 H Calcium 9.6 Total Bilirubin 0.50 0.50 Direct Bilirubin 0.06 AST 31 31 ALT 18 Alkaline Phosphatase Total Protein Albumin Globulin Albumin/Globulin Ratio Lipase Urine Color Urine Clarity Urine pH Ur Specific [place] Urine Protein Urine Glucose (UA) Urine Ketones Urine Occult Blood Urine Nitrite Urine Bilirubin Urine Urobilinogen Ur Leukocyte Esterase Urine RBC Urine WBC Ur Squamous Epith Cells Urine Bacteria Urine Mucus 01/25/24 01/25/24 01/25/24 19:50 19:50 19:50 WBC RBC Hgb Hct MCV MCH MCHC RDW Std Deviation RDW Coeff of [place] Plt Count MPV Immature Gran % (Auto) Neut % (Auto) Lymph % (Auto) [place] % (Auto) Eos % (Auto) Baso % (Auto) Absolute Neuts (auto) Absolute Lymphs (auto) Nucleated RBC % Sodium Potassium Chloride Carbon Dioxide Anion Gap BUN Creatinine Estim Creat Clear Calc Est GFR (MDRD) Af Amer Est GFR (MDRD) Non-Af BUN/Creatinine Ratio Glucose Calcium Total Bilirubin Direct Bilirubin AST ALT 18 Alkaline Phosphatase 89 92 Total Protein 9.2 H 9.2 H Albumin 4.2 Globulin Albumin/Globulin Ratio Lipase Urine Color Urine Clarity Urine pH Ur Specific [place] Urine Protein Urine Glucose (UA) Urine Ketones Urine Occult Blood Urine Nitrite Urine Bilirubin Urine Urobilinogen Ur Leukocyte Esterase Urine RBC Urine WBC Ur Squamous Epith Cells Urine Bacteria Urine Mucus 01/25/24 01/25/24 01/25/24 19:50 19:50 22:00 WBC RBC Hgb Hct MCV MCH MCHC RDW Std Deviation RDW Coeff of [place] Plt Count MPV Immature Gran % (Auto) Neut % (Auto) Lymph % (Auto) [place] % (Auto) Eos % (Auto) Baso % (Auto) Absolute Neuts (auto) Absolute Lymphs (auto) Nucleated RBC % Sodium Potassium Chloride Carbon Dioxide Anion Gap BUN Creatinine Estim Creat Clear Calc Est GFR (MDRD) Af Amer Est GFR (MDRD) Non-Af BUN/Creatinine Ratio Glucose Calcium Total Bilirubin Direct Bilirubin AST ALT Alkaline Phosphatase Total Protein Albumin 4.2 Globulin 5.0 H 5.0 H Albumin/Globulin Ratio 0.8 L Lipase 37 Urine Color Yellow Urine Clarity Clear Urine pH 7.0 Ur Specific [place] 1.010 Urine Protein 30 H Urine Glucose (UA) 1000 H Urine Ketones 150 A* Urine Occult Blood 25 H Urine Nitrite Negative Urine Bilirubin Negative Urine Urobilinogen Normal Ur Leukocyte Esterase Negative Urine RBC 0-5 SEEN Urine WBC 0 SEEN Ur Squamous Epith Cells 0 SEEN Urine Bacteria 0 SEEN Urine Mucus 0 SEEN Radiography Diagnostic Testing: Clinical Impression(s) from Imaging Studies Abdomen/Pelvis CT 01/25/24 21:25 IMPRESSION: 1. Urinary bladder distention may be transient/physiologic. Correlate clinically. 2. Mildly prominent bilateral inguinal lymph nodes, perhaps reactive. Electronically Signed: Gurdeep Osuna DO at 22:04 EDT , Management Discussion w/another healthcare provider: Hospitalist (Dr. Hollins was made aware for admission to [facility] and Helminthologist (Case discussed with Dr. Argueta. Is made aware of patient's findings, abdominal exam, white count and CT findings. Recommend admission with IV antibiotics and he will see him in consultation.) Treatment and Re-Evaluation :: With greatest area of discomfort right lower quadrant with elevated white count normal liver enzymes will obtain CT of the abdomen and pelvis with IV contrast to assess for appendicitis versus mesenteric adenitis versus regional colitis Comments:: Patient and were informed of results. He was asked regarding cannabis use. He does use cannabis regularly. I informed him that this may be due to the cannabis. He does not have history hypertension. Patient had numerous elevated blood pressure readings even though he is no longer having symptoms. Will start on low-dose of lisinopril. Discharge Plan Triage Chief Complaint: Abd Pain ED Provider: Ryan Mccracken Dx/Rx/DC Orders Clinical Impression: Cannabis hyperemesis syndrome concurrent with and due to cannabis abuse, Acute dehydration, Type 2 diabetes mellitus with hyperglycemia, Acute prerenal azotemia, Ketosis, Hypertension, Abdominal pain, acute, generalized Instructions: Cannabinoid Hyperemesis Syndrome, ED Dehydration (Adult), ED Hypertension New Begin Treatment Prescriptions: New lisinopril 10 mg tablet 10 mg PO DAILY Qty: 30 0RF No Action glipizide 10 mg tablet extended release 24hr 10 mg PO DAILY Primary Care Provider: Austin Camarena Referrals: Austin Camarena, JIE [Primary Care Provider] - 1-2 Weeks Disposition Disposition: Home, Self Care What to do if you have Problems For any increased pain, shortness of breath, bleeding, nausea or vomiting, chestpain, or any unexpected problems, contact your Primary Care Provider. Call [facility] ([phone]) or report to the closest Emergency Room. Call 911 if necessary. 01/25/242302 <Electronically signed by Ryan Mccracken MD> Cosigner Signature (if applicable): CC: JIE Camarena ~ Signed [facility] Work Phone: [phone]) 851-626202-20-2024 History of Present illness Narrative* Austin Camarena, MEDICATION AIDE.SHIPPING ASSOCIATE - 12/28/2023 3:24 PM EST Chief Complaint Patient presents with: Follow Up HPI Weston Gamez is a 38 year old male who presents here today for Above Complaints.. Patient presents for diabetes follow up. Patient was seen in October and started on metformin and glipizide. Patient initial hgb A1c 13.2. Patient has since seen visual educator and ophthalmology. Stopped taking metformin about a week ago d/t diarrhea diarrhea present since onset of medication use. Continues glipizide. Met with nutrition and is working on diet changes. Fasting BG 180-200 in morning. Has been 300 in the morning on a couple of occasions. Associated with eating late at night. BG 120s or lower after meals. (200s?) No hypoglycemic events. Needs to reschedule with podiatry. Past medical history, appointments, medications, allergies reviewed. Previous Medical History PAST MEDICAL HISTORY Diagnosis Date Bipolar 1 disorder (HCC) DM (diabetes mellitus), type 2 (HCC) NEGATIVE MEDICAL HISTORY Previous Surgical History PAST SURGICAL HISTORY Procedure Laterality Date NONE Family History FAMILY HISTORY Problem Relation Age of Onset Hypertension Father Heart Father Hypertension Mother Diabetes Mother No Ocular Disease No Family History Patient Allergies ALLERGIES No Known Allergies Current Medications Current Outpatient Medications on File Prior to Visit Medication Sig metFORMIN ER (GLUCOPHAGE XR) 500 mg 24 hr tablet take 1 tablet by mouth twice daily with meals glipiZIDE (GLUCOTROL) 5 mg tablet Take 1 tablet by mouth once daily Lancets lancets Test blood sugar(s) 1 times daily. Dx: Type 2 DM - Uncontrolled E11.65 Insulin: No blood sugar diagnostic (BLOOD GLUCOSE TEST) test strip Test blood sugar(s) 1 times daily. Dx: Type 2 DM - Uncontrolled E11.65 Insulin: No nicotine (NICODERM) 21 mg/24 hr Apply 1 Patch as directed every 24 hours. No current facility-administered medications on file prior to visit. Social History Social History Tobacco Use Smoking status: Every Day Packs/day: 1.50 Years: 25.00 Additional pack years: 0.00 Total pack years: 37.50 Types: Cigarettes Substance Use Topics Alcohol use: Not Currently Drug use: Yes Frequency: 3.0 times per week Types: Marijuana Comment: smokes and uses edibles Review of Symptoms REVIEW OF SYSTEMS SEE HPI EXAM: BP 122/78 Pulse 96 Resp 12 Wt 64 kg (141 lb) General Appearance: Well appearing, alert, in no acute distress, well-hydrated, well nourished.. Lungs: Lungs clear to auscultation. No wheezing, rhonchi, rales.. Heart: RRR without murmur, gallop, or rubs. No ectopy. Neurologic: Gait normal. Reflexes normal and symmetric. Sensation grossly intact.. Health Maintenance List Pneumococcal Vaccine(1 of 2 - PCV) Never done Covid-19 Vaccine(3 - 2022- season) due on 07/09/2023 Depression Assessment due on 11/08/2023 Influenza Vaccine(1) due on 05/07/2024 HbA1C due on 01/14/2024 Urine Albumin:Creatinine Ratio due on 10/15/2024 LDL Cholesterol due on 10/15/2024 Diabetic Foot Exam due on 10/15/2024 Annual PCP Team Chronic Disease Visit due on 10/22/2024 Dilated Retinal Exam due on 10/26/2024 DTaP,Tdap,Td Vaccine(2 - Td or Tdap) due on 10/15/2033 Hepatitis C Screening Completed HIV Screening Completed HPV Vaccine Aged Out Hepatitis B Vaccine Discontinued ASSESSMENT/PLAN: 1. Type 2 diabetes mellitus without complication, without long-term current use of insulin (HCC) - ICD9: 250.00, ICD10: E11.9 - Control undetermined, due for labs - Continue current medications - Start pioglitazone - Blood glucose monitoring on a three times daily schedule - Counseled on healthy diet and regular exercise - Discussed need for and benefit of weight loss. BMI 23.35 kg/(m^2) - HGB A1C - GLIPIZIDE ER 10 MG TABLET, EXTENDED RELEASE 24 HR - PIOGLITAZONE 15 MG TABLET Austin Camarena APRN.CNP [facility] Miscellaneous Notes* Telephone Encounter - Victoria Flannery Ma - 12/21/2023 11:05 AM EST Patient has been identified by name and date of : Yes, Provider Austin Camarena APRN.CNP DateFebruary 2023 Time 11:05 AM Patient phones for refill(s): Requested Prescriptions Pending Prescriptions Disp Refills metFORMIN ER (GLUCOPHAGE XR) 500 mg 24 hr tablet [Pharmacy Med Name: metFORMIN HCl ER 500 MG Oral Tablet Extended Release 24 Hour] 60 tablet 0 Sig: take 1 tablet by mouth twice daily with meals glipiZIDE (GLUCOTROL) 5 mg tablet [Pharmacy Med Name: glipiZIDE 5 MG Oral Tablet] 30 tablet 0 Sig: Take 1 tablet by mouth once daily Date of last office visit in primary care: 10/22/2023 Date of next office visit in primary care: 12/23/2023 Please advise. Thank you. Victoria Flannery Ma. documented [facility] Instructions* Patient Instructions* Austin Camarena APRN.CNP - 10/22/2023 11:17 AM EST -Use glucometer for back up for descom if BS reading less than 80 or greater than 400. documented in this [facility]23 History of Present illness Narrative* Austin Camarena APRN.CNP - 10/22/2023 11:06 AM EST Chief Complaint Patient presents with: Follow Up HPI Weston Gamez is a 38 year old male who presents here today for Above Complaints.. Patient presents to discuss diabetes plan of care. Past medical history, appointments, medications, allergies reviewed. Previous Medical History PAST MEDICAL HISTORY Diagnosis Date Bipolar 1 disorder (HCC) DM (diabetes mellitus), type 2 (HCC) NEGATIVE MEDICAL HISTORY Previous Surgical History PAST SURGICAL HISTORY Procedure Laterality Date NONE Family History FAMILY HISTORY Problem Relation Age of Onset Hypertension Father Hypertension Mother Diabetes Mother Heart Father Patient Allergies ALLERGIES No Known Allergies Current Medications No current outpatient medications on file prior to visit. No current facility-administered medications on file prior to visit. Social History Social History Tobacco Use Smoking status: Every Day Packs/day: 1.50 Years: 25.00 Additional pack years: 0.00 Total pack years: 37.50 Types: Cigarettes Substance Use Topics Alcohol use: Not Currently Drug use: Yes Frequency: 3.0 times per week Types: Marijuana Comment: smokes and uses edibles Review of Symptoms REVIEW OF SYSTEMS SEE HPI EXAM: BP 119/79 Pulse 92 Resp 14 Wt 63.5 kg (140 lb) General Appearance: Well appearing, alert, in no acute distress, well-hydrated, well nourished.. Health Maintenance List Pneumococcal Vaccine(1 of 2 - PCV) Never done Dilated Retinal Exam Never done Covid-19 Vaccine( season) due on 07/09/2023 Influenza Vaccine(1) due on 05/07/2024 HbA1C due on 01/14/2024 Urine Albumin:Creatinine Ratio due on 10/15/2024 LDL Cholesterol due on 10/15/2024 Diabetic Foot Exam due on 10/15/2024 Annual PCP Team Chronic Disease Visit due on 10/15/2024 DTaP,Tdap,Td Vaccine(2 - Td or Tdap) due on 10/15/2033 Depression Assessment Completed Hepatitis C Screening Completed HIV Screening Completed HPV Vaccine Aged Out Hepatitis B Vaccine Discontinued ASSESSMENT/PLAN: 1. Type 2 diabetes mellitus without complication, without long-term current use of insulin (HCC) - ICD9: 250.00, ICD10: E11.9 - Uncontrolled - Start metformin ER and glipizide - METFORMIN ER 500 MG TABLET,EXTENDED RELEASE 24 HR - GLIPIZIDE 5 MG TABLET - CONSULT TO DIABETES EDUCATION DSME/MNT - HOME BLOOD GLUCOSE MONITOR - BLOOD-GLUCOSE METER - BLOOD GLUCOSE CONTROL, NORMAL SOLUTION - LANCETS - BLOOD GLUCOSE TEST STRIPS Austin Camarena APRN.CNP documented in this encounter[facility] Miscellaneous Notes* Telephone Encounter - Lisseth Morel Cma - 10/15/2023 1:59 PM EST Pt active on [employer]- message sent Lisseth Morel Cma * Telephone Encounter - Austin Camarena APRN.CNP - 10/15/2023 1:41 PM EST Please let patient know their xray is normal. documented in this encounterSelect [facility]12[facility]23 History of Present illness Narrative* Jaz Bueno RT(R) - 10/15/2023 12:30 PM EST Radiology Service Progress Note PATIENT NAME: Weston Gamez DATE OF SERVICE: October 15, 2023 TIME: 12:16 PM PATIENT IDENTITY VERIFICATION COMPLETED USING TWO (2) IDENTIFIERS: Name and Date of confirmedby patient verbally. FALL SCREENING: Has the patient had 2 falls in the last year or 1 fall with injury or currently using an Ambulatory Assistive Device (Walker, Cane, Wheelchair, Crutches, etc.)? No PATIENT GENDER DATA: Male PATIENT RELEVANT IMPLANT DATA REVIEWED: Not Applicable RADIOLOGY DEPARTMENT: General X-ray: Exam(s) Completed: Chest X-Ray PERIPHERAL IV DATA: Not applicable SIGNED BY: RT Chelsie(R) October 15, 2023 12:16 PM documented in this encounterSelect [facility]12-[facility]23 History of Present illness Narrative* Austin Camarena APRN.SHIPPING ASSOCIATE - 10/15/2023 11:14 AM EST Images from the original note were not included. Chief Complaint Patient presents with: [facility] Cough: X 1 year HPI Weston Gamez is a 38 year old male who presents here today for Above Complaints.. Patient presents to [facility]. Patient reports cough x1 year and is an active smoker. Past medical history, appointments, medications, allergies reviewed. Previous Medical History PAST MEDICAL HISTORY Diagnosis Date NEGATIVE MEDICAL HISTORY Previous Surgical History PAST SURGICAL HISTORY Procedure Laterality Date NONE Family History FAMILY HISTORY Problem Relation Age of Onset Hypertension Father Hypertension Mother Diabetes Mother Heart Father Patient Allergies ALLERGIES No Known Allergies Current Medications Current Outpatient Medications on File Prior to Visit Medication Sig gabapentin (NEURONTIN) 100 mg capsule Take 1 capsule by mouth four times daily. (Patient not taking: Reported on 10/15/2023) baclofen (LIORESAL) 10 mg tablet Take 1 tablet by mouth three times daily as needed (muscle spasms). (Patient not taking: Reported on 10/15/2023) FLUoxetine (PROZAC) 10 mg capsule Take 10 mg by mouth once daily. metFORMIN (GLUCOPHAGE) 500 mg tablet Take 500 mg by mouth twice daily with meals. (Patient not taking: Reported on 10/15/2023) No current facility-administered medications on file prior to visit. Social History Social History Tobacco Use Smoking status: Every Day Types: Cigarettes Tobacco comments: Smokes 2-3 cigarettes daily Substance Use Topics Alcohol use: Yes Drug use: No Review of Symptoms REVIEW OF SYSTEMS GENERAL: No weight loss, malaise or fevers HEENT: Eyes Positive for recent change in vision worsening NECK: Negative for lumps, goiter, pain and significant neck swelling RESPIRATORY: Cough; dry, Wheezing, Shortness of breath CARDIOVASCULAR: Negative for chest pain, leg swelling, hypertension, CHF or palpitations GI: No nausea, vomiting, or diarrhea : Positive for frequency and incontinence at night, currently untreated for diabetes MUSCULOSKELETAL: back pain SKIN: Negative for lesions, rash, and itching PSYCH: Positive for depression: and sleep disturbance: HEMATOLOGY/LYMPHOLOGY: Negative for prolonged bleeding, bruising easily or swollen nodes ENDOCRINE: Positive for polydipsia: , polyuria: NEURO: No history of headaches, syncope, paralysis, seizures or tremors EXAM: BP 112/78 Pulse 90 Resp 16 Wt 63 kg (139 lb) General Appearance: Well appearing, alert, in no acute distress, well-hydrated, well nourished.. Skin: Skin color, texture, turgor normal, no suspicious rashes or lesions. Neck: Supple, no adenopathy; thyroid symmetric, normal size, no bruits. Lungs: Lungs clear to auscultation. No wheezing, rhonchi, rales.. Heart: RRR without murmur, gallop, or rubs. No ectopy. Abdomen: Normal abdominal exam, Abdomen soft, non-tender. Bowel sounds normal. No masses, organomegaly Musculoskeletal: No joint swelling, deformity, or tenderness. Peripheral Pulses: Normal. Neurologic: Positive findings: sensory deficit see diabetic foot exam. Diabetic Foot Exam: Feet: Shoes and socks removed, normal distal pulses, non-sensitive to microfilament to left big toeand pinkie, and calluses noted bilaterally Skin: dry Vascular Pulses: Normal SEMMES-SHANNAN MONOFILAMENT TESTING Left Foot Right Foot Dorsal Surface Diminished 2/9 sites Dorsal Surface Diminished 1/9 sites Plantar Surface Diminished 3/9 sites Plantar Surface Diminished 1/9 sites Health Maintenance List Hepatitis B Vaccine(1 of 3 - 3-dose series) Never done Covid-19 Vaccine(1) Never done Pneumococcal Vaccine(1 - PCV) Never done Hepatitis C Screening Never done HIV Screening Never done DTaP,Tdap,Td Vaccine(1 - Tdap) Never done Lipid Screening Never done Depression Assessment Never done Influenza Vaccine(1) due on 05/07/2024 HPV Vaccine Aged Out ASSESSMENT/PLAN: 1. Screening for diabetes mellitus - ICD9: V77.1, ICD10: Z13.1 (primary diagnosis) - HGB A1C 2. Encounter for lipid screening for cardiovascular disease - ICD9: V77.91, V81.2, ICD10: Z13.220, Z13.6 - LIPID PANEL, NONFASTING 3. Wellness examination - ICD9: V70.0, ICD10: Z00.00 - Counseled on healthy diet and regular exercise - Discussed need for and benefit of weight loss. BMI 23.02 kg/(m^2) - Smoking cessation encouraged; discussed risks to health and quitting strategies. Patient is not ready to quit - Depression screening tool completed and reviewed with patient. Based on score and interview, patient is already diagnosed with depression and recommended psychiatry referral. - Patient was counseled [id number] by myself (the billing provider) for the following immunizations and vaccine components, including side effects: TdaP. Patient consents for immunization and understands risks and benefits. A VIS sheet on each immunization was given to the patient. - CBC + DIFF - COMP METABOLIC PANEL 4. Bipolar affective disorder, remission status unspecified (HCC) - ICD9: 296.80, ICD10: F31.9 - CONSULT TO PSYCHIATRY 5. Encounter for immunization - ICD9: V03.89, ICD10: Z23 - TDAP VACCINE, AGE 7+ YR (ADACEL, BOOSTRIX) 6. Diabetes 1.5, managed as type 2 (HCC) - ICD9: 250.00, ICD10: E13.9 - Control undetermined, due for labs - Counseled on healthy diet and regular exercise - URINALYSIS, WITH MICROSCOPIC - ALBUMIN/CREAT RATIO RND UR - CONSULT TO OPHTHALMOLOGY - CONSULT TO PODIATRY 7. Special screening examination for viral disease - ICD9: V73.99, ICD10: Z11.59 - HEPATITIS C ANTIBODY IA WITH CONFIRMATION 8. Screening for HIV (human immunodeficiency virus) - ICD9: V73.89, ICD10: Z11.4 - HIV 1 2 COMBO(AG/AB),WITH REFLEX TO DIFFERENTIATION 9. Chronic cough - ICD9: 786.2, ICD10: R05.3 - XR CHEST 2V FRONTAL/LAT 10. Callus of foot - ICD9: 700, ICD10: L84 - CONSULT TO PODIATRY Austin Camarena APRN.SHIPPING ASSOCIATE documented in this encounterGrubbs ClinicDischarge summary Author Shantell Alcaraz [facility] January 29, 2024 1:46pm Note Date/Time January 29, 2024 1:4 7pm [facility] Medical Records Department [address] [place] [address] Instructions for Home/Discharge Instructions 01/29/24 1346 MR#: [id number] Acct: [id number] Name: WESTON GAMEZ Rep #:[id number] : 1985 38 From: Shantell Alcaraz MD PCP: JIE Geller Status:ADM IN Discharge Instructions Diet Discharge Diet: Low fat / Low cholesterol and 1800 Calorie Control Diet Activity Discharge Activity: Return to Normal Activity Weight Bearing Status: Weight bearing as tolerated Dressing / Incision Call your doctor if you observe: Fever of 101 or Higher, Shortness of breath, Dizziness, Swelling in the ankles and Chest pain Follow Up Care Test Results: Test results from this visit will be discussed in further detail at your follow- up appointment, if applicable. Discharge Plan Admission Admit Date/Time: 01/27/24 15:09 Primary Reason for Your Visit: DKA, gastroparesis Attending Provider: Shantell Alcaraz Primary Care Provider: Austin Camarena Consulting Providers: Troy Wagoner Instructions Patient Instructions: Ketoacidosis Ch, Diabetic Gastroparesis Discharge Orders/Prescriptions Prescriptions: New insulin glargine-yfgn 100 unit/mL (3 mL) Insulin Pen 15 unit subcut QHS Qty: 15 2RF lisinopril 20 mg tablet 20 mg PO DAILY Qty: 30 2RF metoclopramide HCl 5 mg tablet 5 mg PO Q6H Qty: 120 1RF pantoprazole 40 mg tablet,delayed release (DR/EC) 40 mg PO BID Qty: 60 2RF (DME) pen needle, diabetic [BD Ultra-Fine Lizzeth Pen Needle] 32 gauge x 5/32 needle See Rx Instructions .Route Qty: 1200 1RF Rx Instructions: As directed Discontinued glipizide 10 mg tablet extended release 24hr 10 mg PO DAILY lisinopril 10 mg tablet 10 mg PO DAILY Qty: 30 0RF Patient Comments: THIS IS A NEWLY PRESCRIBED MEDICATION THAT THE PT HAS NOT YET STARTED/PICKED UP FROM THE PHARMACY ( OF 01/27/24) pioglitazone 15 mg tablet 15 mg PO DAILY Referrals / Follow Up: Mushtaq Hernandez MD [Med Staff - Courtesy Staff] - Within 2 Weeks (see to establish care for diabetes) Austin Camarena NP-C [Primary Care Provider] - Within 2 Weeks Disposition Disposition (needs filled in before D/C Order can be placed): Home, Self Care 01/29/24 0846<Electronically signed by Shantell Alcaraz MD>Shantell Alcaraz MD CC: CARBURETOR REBUILDER-C Austin Camarena; Dr. Troy Wagoner, DO ~ Signed [facility] Work Phone: Discharge summary Author Shantell Kieran [facility] January 29, 2024 3:19pm Note Date/Time January 29, 2024 1:5 3pm [facility] Medical Records Department [address] [place] [address] Discharge Summary 01/29/24 1353 MR#: [id number] Acct: [id number] Name: WESTON GAMEZ Rep #:[id number] : 1985 38 From: Shantell Alcaraz MD PCP: JIE Geller Status:ADM IN Location: [facility] [id number] Providers Date of Admission: 01/27/24 Date of Discharge: 01/29/24 Primary Care Physician: JIE Geller Consultations 01/28/24 08:55 Consult: Gastroenterology Routine Consulting Provider: [facility] Reason for Consult: abdominal pain; gastritis v gastroparesis EMERGENT Consult: No MD Notified: Yes Date Notified: 01/28/24 Time Notified: 08:55 Method of Notification: Text Reason For Visit: INTRACTABLE ABDOMINAL PAIN, POORLY CONTROLLED DIAB Diagnosis Discharge Diagnosis (1) DKA (diabetic ketoacidoses): Status: Acute Code(s): E11.10 - Type 2 diabetes mellitus with ketoacidosis without coma (2) Nausea & vomiting: Status: Acute Code(s): R11.2 - Nausea with vomiting, unspecified (3) Abdominal pain, acute, generalized: Status: Acute Code(s): R10.84 - Generalized abdominal pain Plan #MIld DKA in a known diabetic * Bicarb is up to 20 today. Anion gap is 8. DKA has resolved. * Being hydrated with IV fluids. On subcu Lantus 15 units daily * Says he is to be on pioglitazone and glipizide. States he was on metformin but this was stopped. His A1c is 11 * Will need follow-up with endocrinology on outpatient basis. * #Intractable abdominal pain * Patient has been writhing and moaning in pain. He has mild epigastric tenderness. * CT of the abdomen and pelvis showed no evidence of pancreatitis or any acute intra-abdominal pathology. * Started on IV pantoprazole 40 mg twice daily for any probable gastritis. * Patient also smokes marijuana and this could be the cause of his symptoms. Patient however states he has been smoking marijuana since he was 13 so does not think that it could be related to this. * Gastroenterology consulted. Await recs. * Keep n.p.o. and continue hydration with IV fluids. * #Hypertension: * Has a strong family history of hypertension. Blood pressure was elevated on admission. * Started on lisinopril 5 mg and amlodipine 5 mg. IV hydralazine as needed. * Adjust medications as needed. * #Proteinuria: Urine protein creatinine ratio was elevated at 487. Will benefit from follow-up with nephrology on outpatient basis. Creatinine level was normal. DVT prophylaxis: Lovenox Medications at Discharge Home Medications insulin glargine-yfgn 100 unit/mL (3 mL) subcutaneous pen 15 unit (0.15 mL) subcut QHS #15 mL 01/29/24 lisinopril 20 mg tablet 20 mg PO DAILY #30 tabs 01/29/24 metoclopramide HCl 5 mg tablet 5 mg PO Q6H #120 tabs 01/29/24 pantoprazole 40 mg tablet,delayed release 40 mg PO BID #60 tabs 01/29/24 pen needle, diabetic 32 gauge x 5/32 (BD Ultra-Fine Lizzeth Pen Needle) #1,200 ea 01/29/24 Hospital Course Operations None Procedures EGD Summary of Care Provided Minutes Spent on Discharge: 45 Hospital Course: Patient is a 38-year-old male with a past medical history as outlined was admitted through the ED on 01/27/2024 with a complaint of intractable nausea and vomiting. Patient was a known diabetic and was diagnosed back in 2014. His A1cwas 13.9 at that time. He was placed on metformin but could not tolerated due to worsening nausea and vomiting. He had then been placed on glipizide and Actos. He said his vision had also been getting steadily worse as he had blurred vision and also numbness and tingling in his lower extremities. He had come to the ED on 01/25/2024 for similar complaints as he presented on the day ofadmission and a CAT scan of the abdomen and pelvis was done and was essentially normal so he was discharged home. However his symptoms persisted so he came into the ED. He had not been able to eat or drink well. Labs showed hyperglycemia with blood glucose of 322. Bicarb was 17 and he had a mild anion gap. He was admitted and managed for mild DKA and an known diabetic. He was hydrated with fluids. There was concern for gastroparesis so gastroenterology was consulted. Patient was started on subcu Lantus. A1c checked was 11.1. Gastroenterology saw patient and he had EGD which showed evidence of gastroparesis with severe pyloric stenosis as well as gastritis. Patient also admitted to smoking marijuana daily and said he had done so since he was 13 years. Patient was placed on Reglan and counseled that he needed to stop smoking marijuana as well. His symptoms improved and he felt better. He was placed on Lantus as stated and he was given a prescription for Lantus at time ofdischarge. He was referred to endocrinology on outpatient basis to establish care for his diabetes. Glipizide and pioglitazone was stopped as he had been placed on Lantus. He is follow-up with his primary care doctor within 1 to 2 weeks and also to follow-up with gastroenterology. He was also given a prescription for Reglan. Patient seen and examined prior to discharge. He felt better and had no active complaints. Review of systems otherwise negative. Labs and vitals reviewed. Home medication reviewed and reconciled. Physical Exam Const alert, oriented x3, no apparent distress and average body habitus Constitutional Narrative: In moderate distress due to pain General Appearance: cooperative, comfortable and well kempt Orientation / Consciousness: awake Exam Limitations: no limitations HEENT normocephalic, head/scalp atraumatic, hearing grossly normal bilaterally, nasal mucous membranes and turbinates normal and moist oral mucous membranes Mouth: oral and palatal mucosa normal and dry mucous membranes Eyes PERRL, EOMs intact bilaterally and conjunctivae normal Neck full ROM, no lymphadenopathy and supple Lymph Lymphatic: no lymphadenopathy noted and no lymphedema noted Chest inspection of chest normal Resp normal respiratory effort, normal air movement, no use of accessory muscles and clear to auscultation bilaterally Cardio regular rate, regular rhythm, S1 normal heart sound, S2 normal heart sound, no murmurs and peripheral pulses 2+ throughout Cardio Narrative: Tachycardic, regular rhythm. GI normal to inspection, nondistended, normoactive bowel sounds, soft to palpation,non-tender and non-distended Back/Spine normal ROM Extremity normal to inspection, full ROM, normal capillary refill, no clubbing, cyanosis or edema, no calf tenderness and no pedal edema General Extremity: no tenderness to palpation of joints or extremities Skin no rashes or lesions noted General Skin Exam: no breakdown Neuro oriented x3, CN's II-XII intact bilaterally, moves all extremities, no focal motor deficits, no sensory deficits noted and deep tendon reflexes 2+ bilaterally Speech: speech normal Motor Exam: strength 5/5 throughout and general weakness Psych mental status grossly normal, thought process normal and cooperative Appearance: appropriate Weight / BMI Weight Weight: 138 lb 3.677 oz Body Mass Index (BMI) 22.3 ABG / Lab / Microbiology Data 01/29/24 06:03 01/29/24 06:03 Laboratory: Laboratory Results - last 24 hr 01/28/24 11:32: POC Glucose 213 H 01/28/24 16:16: POC Glucose 190 H 01/28/24 21:48: POC Glucose 170 H 01/29/24 06:03: WBC 9.8, RBC 4.60, Hgb 13.0, Hct 38.5 L, MCV 83.7, MCH 28.3, MCHC 33.8, RDW Std Deviation 40.7, RDW Coeff of [place] 13.2, Plt Count 341, MPV 9.2, Immature Gran % (Auto) 0.300, Neut % (Auto) 43.8 L, Lymph % (Auto) 41.8 H, [place] % (Auto) 11.8 H, Eos % (Auto) 1.7, Baso % (Auto) 0.6, Absolute Neuts (auto)4.3, Absolute Lymphs (auto) 4.10, Nucleated RBC % 0, Sodium 136, Potassium 3.4 L, Chloride 107, Carbon Dioxide 21.0, Anion Gap 8, BUN 15, Creatinine 0.74, EstimCreat Clear Calc 120.03, Est GFR (MDRD) Af Amer 151, Est GFR (MDRD) Non-Af 125, BUN/Creatinine Ratio 20.2 H, Glucose 124 H, Calcium 8.5 01/29/24 06:59: POC Glucose 127 H 01/29/24 11:14: POC Glucose 151 H D/C Instructions Discharge Diet: Low fat / Low cholesterol and 1800 Calorie Control Diet Weight Bearing Status: Weight bearing as tolerated Call your doctor if you observe: Fever of 101 or Higher, Shortness of breath, Dizziness, Swelling in the ankles and Chest pain Meaningful Use Info Meaningful Use Diagnoses (Choose all that apply): None applicable Discharge Plan Admission Admit Date/Time: 01/27/24 15:09 Primary Reason for Your Visit: DKA, gastroparesis Attending Provider: Shantell Alcaraz Primary Care Provider: Austin Camarena Consulting Providers: Troy Wagoner Instructions Patient Instructions: Ketoacidosis Ch, Diabetic Gastroparesis Discharge Orders/Prescriptions Prescriptions: New insulin glargine-yfgn 100 unit/mL (3 mL) Insulin Pen 15 unit subcut QHS Qty: 15 2RF lisinopril 20 mg tablet 20 mg PO DAILY Qty: 30 2RF metoclopramide HCl 5 mg tablet 5 mg PO Q6H Qty: 120 1RF pantoprazole 40 mg tablet,delayed release (DR/EC) 40 mg PO BID Qty: 60 2RF (DME) pen needle, diabetic [BD Ultra-Fine Lizzeth Pen Needle] 32 gauge x 5/32 needle See Rx Instructions .Route Qty: 1200 1RF Rx Instructions: As directed Discontinued glipizide 10 mg tablet extended release 24hr 10 mg PO DAILY lisinopril 10 mg tablet 10 mg PO DAILY Qty: 30 0RF Patient Comments: THIS IS A NEWLY PRESCRIBED MEDICATION THAT THE PT HAS NOT YET STARTED/PICKED UP FROM THE PHARMACY ( OF 01/27/24) pioglitazone 15 mg tablet 15 mg PO DAILY Referrals / Follow Up: Mushtaq Hernandez MD [Med Staff - Courtesy Staff] - Within 2 Weeks (see to establish care for diabetes) Austin Camarena, CARBURETOR REBUILDER-C [Primary Care Provider] - Within 2 Weeks Disposition Disposition (needs filled in before D/C Order can be placed): Home, Self Care Charges/Coding Visit Charges Inpatient E&M: 87073 Disch Hosp >30min 01/29/24 1519 <Electronically signed by Shantell Alcaraz MD> Cosigner Signature (if applicable): CC: CARBURETOR REBUILDEROskar Camarena; Dr. Shantell Alcaraz MD~ Signed [facility] Work Phone: Evaluation + Plan note No data available for this section [facility] Evaluation note* Diagnosis Screening for diabetes mellitus- Primary Encounter for lipid screening for cardiovascular disease Screening for lipoid disorders Wellness examination Bipolar affective disorder, remission status unspecified ([facility]) Encounter for immunization Need for other specified prophylactic vaccination against single bacterial disease Diabetes 1.5, managed as type 2 (HCC) Type II or unspecified type diabetes mellitus without mention of complication, not stated as uncontrolled Special screening examination for viral disease Special screening examination for unspecified viral disease Screening for HIV (human immunodeficiency virus) Special screening examination for other specified viral diseases Chronic cough Cough Callus of foot Corns and callosities documented in this encounter [facility]* Diagnosis Type 2 diabetes mellitus without complication, without long-term current use of insulin ([facility])- Primary Encounter for smoking cessation counseling Counseling on substance use and abuse documented in this encounter [facility] note* Diagnosis Type 2 diabetes mellitus without complication, without long-term current use of insulin ([facility]) [facility] Diagnosis Type 2 diabetes mellitus without complication, without long-term current use of insulin ([facility])- Primary Encounter for smoking cessation counseling Counseling on substance use and abuse [facility] noteNo assessment information availableWSelect Medical [facility] Work Phone: [facility] note* Diagnosis Onset Date Resolution Status Abdominal pain, acute, generalized acute Acute dehydration acute DKA (diabetic ketoacidoses) acute Nausea & vomiting acute Type 2 diabetes mellitus with hyperglycemia acute Hypertension [facility] Work Phone: Evaluation note* Diagnosis Type 2 diabetes mellitus without complication, without long-term current use of insulin ([facility])- Primary Nausea and vomiting, unspecified vomiting type documented in this encounter [facility]* Diagnosis 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, managed as type 2 (HCC) Type II or unspecified type diabetes mellitus without mention of complication, not stated as uncontrolled Diminished pulses in lower extremity Other symptoms involving cardiovascular system documented in this encounter [facility]* Diagnosis Type 2 diabetes mellitus with peripheral neuropathy ([facility])- Primary documented in this encounter [facility] note* Diagnosis Type 2 diabetes mellitus with peripheral neuropathy ([facility]) documented in this encounter [facility] note* Diagnosis Type 2 diabetes mellitus with peripheral neuropathy (HCC)- Primary Nausea and vomiting, unspecified vomiting type Diabetes 1.5, managed as type 2 (HCC) Type II or unspecified type diabetes mellitus without mention of complication, not stated as uncontrolled Elevated LDL cholesterol level Pure hypercholesterolemia documented in this encounter [facility]* Diagnosis Chronic cough Cough documented in this encounter [facility]* Diagnosis Nausea and vomiting, unspecified vomiting type- Primary Type 2 diabetes mellitus with peripheral neuropathy (HCC) Encounter for immunization Need for other specified prophylactic vaccination against single bacterial disease Hematemesis with nausea Acute gastric ulcer without hemorrhage or perforation Acute gastric ulcer without mention of hemorrhage, perforation, or obstruction documented in this encounter [facility]* Diagnosis Procedure not carried out- Primary Procedure not carried out for other reasons documented in this encounter [facility]* Diagnosis Type 2 diabetes mellitus without retinopathy (HCC)- Primary Type II or unspecified type diabetes mellitus without mention of complication, not stated as uncontrolled Myopia, 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 [facility]* Diagnosis Diabetes 1.5, managed as type 2 (HCC) Type II or unspecified type diabetes mellitus without mention of complication, not stated as uncontrolled documented in this encounter [facility]* Diagnosis ADHD (attention deficit hyperactivity disorder), predominantly hyperactive impulsive type- Primary Attention deficit disorder with hyperactivity [facility]* Diagnosis ADHD (attention deficit hyperactivity disorder), predominantly hyperactive impulsive type- Primary Attention deficit disorder with hyperactivity Primary hypertension Unspecified essential hypertension documented in this encounter [facility]* Diagnosis Medication management- Primary Encounter for long-term (current) use of other medications ADHD (attention deficit hyperactivity disorder), predominantly hyperactive impulsive type Attention deficit disorder with hyperactivity documented in this encounter [facility]* Diagnosis Type 2 diabetes mellitus without retinopathy (HCC)- Primary Type II or unspecified type diabetes mellitus without mention of complication, not stated as uncontrolled Myopia, 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 documented in this encounter [facility]* Diagnosis Medication management- Primary Encounter for long-term (current) use of other medications documented in this encounter [facility]* Diagnosis Elevated LDL cholesterol level Pure hypercholesterolemia Type 2 diabetes mellitus with peripheral neuropathy (HCC) documented in this encounter [facility]* Diagnosis ADHD (attention deficit hyperactivity disorder), predominantly hyperactive impulsive type- Primary Attention deficit disorder with hyperactivity documented [facility] this encounter [facility]* Diagnosis Diabetes 1.5, managed as type 2 (HCC)- Primary Type II or unspecified type diabetes mellitus without mention of complication, not stated as uncontrolled documented [facility] this encounter [facility]* Diagnosis Primary hypertension Unspecified essential hypertension Elevated LDL cholesterol level Pure hypercholesterolemia documented in this encounter [facility]* Diagnosis Vitamin D deficiency- Primary Unspecified vitamin D deficiency documented in this encounter [facility]* Diagnosis Type 2 diabetes mellitus with peripheral neuropathy (HCC) documented [facility] this encounter [facility]* Diagnosis Dental infection- Primary Acute apical periodontitis of pulpal origin Screening for depression Encounter for screening examination for other mental health and behavioral disorders Medication management Encounter for long-term (current) use of other medications Elevated LDL cholesterol level Pure hypercholesterolemia Diabetes 1.5, managed as type 2 (HCC) Type II or unspecified type diabetes mellitus without mention of complication, not stated as uncontrolled documented [facility] this encounter [facility]* Diagnosis Hyperkalemia- Primary Hyperpotassemia documented in this encounter [facility]* Diagnosis Diabetes 1.5, managed as type 2 (HCC) Type II or unspecified type diabetes mellitus without mention of complication, not stated as uncontrolled documented in this encounter [facility] and physical note Author Troy Wagoner [facility] January 27, 2024 4:13pm Note Date/Time January 27, 2024 3:0 3pm [facility] Medical Records Department [address] [place] [address] H&P Exam - Hospitalist 01/27/24 1503 MR#: [id number] Acct: [id number] Name: WESTON GAMEZ Rep #:[id number] : 1985 38 From: Troy gonsalez DO PCP: JIE Geller Status:ADM IN Location: MS3 [id number] HPI - General General Date of Admission: 01/27/24 Date of Service: 01/27/24 Chief Complaint: Intractable nausea and vomiting HPI Narrative WESTON GAMEZ, is a 38 M who presented to [facility] ED on 01/27/2024 with intractable nausea and vomiting. Patient seen at bedside in the ED. Patient sitting up fairly comfortably in bed, conversing normally, no acutedistress. Patient is very pleasant and provides a good history. Patient statesthat his nausea and vomiting started somewhat abruptly about 4 days ago. He then began to have pain in the right upper quadrant or right lower quadrant of his abdomen. He came to the ED on 01/[address] abdomen pelvis wasdone at that time and was essentially normal. Labs are notable for a mild leukocytosis, hyperglycemia with blood glucose 278, UA that showed 1000 glucose,150 urine ketones but acid-base status was normal and findings were otherwise fairly benign. He had borderline sinus tachycardia and was quite hypertensive at that time as well. He had some improvement in his symptoms with IV fluids, Zofran and morphine. He was started on low-dose lisinopril and discharged at that time. Over the last few days, patient has continued to have some episodes of nausea/vomiting and abdominal pain. He essentially has not eaten anything over the past 3 to 4 days. States he has very minimal appetite. Because his symptoms did not improve, he came to the ED today for further evaluation. Vitals were again notable for fairly significant hypertension and mild tachycardia. Labs again showed hyperglycemia with blood glucose 322 and similarUA findings, but bicarb was 17 and he had a mild anion gap. He was given 2 L ofIV fluids in the ED as well as Zofran and morphine with some improvement in symptoms. He currently denies any abdominal pain or discomfort. Denies any fevers or chills. Denies any significant change in bowel movements. Denies anylightheadedness or dizziness. No other acute concerns at this time. Due to hisintractable nausea/vomiting and abdominal pain and mild DKA, hospitalist is contacted for admission. On further review, patient was diagnosed with diabetes back in 2014 in his late 20s. His A1c was 13.9% at that time. He remembers having some polyuria and polydipsia at that time but otherwise did not have significant symptoms. He wasslightly heavier at that time but BMI was still likely less than 30. He has intermittently been on oral medications for his diabetes since then. Diabetes has been managed by his PCP he states. He was on metformin for a while, but recently this was discontinued because he reported worsening nausea and vomitingover the past 1 to 2 months to his PCP. His regimen since then has been glipizide 10 mg daily and Actos 15 mg daily. In general, patient states that his vision has steadily been getting worse over the past few years with some blurry vision. He has noticed increasing episodes of numbness/tingling and electric type shocks in his feet, worse on the right foot. He is also noticed that his stomach does not seem to be emptying as quickly as normal and he has had less of an appetite because of this. Patient does smoke marijuana on a daily basis but has been doing this since age 13. Does not smoke cigarettes. Denies any alcohol use. Denies any other drug use. [facility] Medical History Bipolar 1 disorder Diabetes mellitus Schizo-affective schizophrenia Home Medications glipizide 10 mg tablet, extended release 24 hr 10 mg PO DAILY BLOOD SUGARS 01/25/24 [History Last Taken 01/25/24] lisinopril 10 mg tablet 10 mg PO DAILY BLOOD PRESSURE #30 tabs 01/25/24 [Rx Last Taken Unknown] pioglitazone 15 mg tablet 15 mg PO DAILY BLOOD SUGARS 01/27/24 [History Last Taken 01/25/24] Allergy/AdvReac Type Severity Reaction Status Date / Time No Known Allergies Allergy Verified 01/27/24 11:30 Family History unable to obtain Social History household members: spouse Smoking Status: Current some day smoker tobacco type: cigarettes ROS Constitutional Constitutional: Reports fatigue; Denies chills, fever(s) or weakness Eyes Eyes: Reports blurry vision and change in vision Cardiovascular Cardiovascular: Denies chest pain, dyspnea on exertion, edema, lightheadedness or palpitations Respiratory/Chest Respiratory/Chest: Denies cough, shortness of breath at rest, shortness of breath with exertion or wheezing Gastrointestinal Gastrointestinal: Reports abdominal pain, dyspepsia, nausea and vomiting; Deniesconstipation or diarrhea Genitourinary Genitourinary: Denies dysuria Musculoskeletal Musculoskeletal: Denies arthralgias, back pain or myalgias Neurologic Neurologic: Reports numbness, paresthesias and tingling; Denies abnormal gait, disequilibrium, dizziness, focal weakness, headache(s) or tremor(s) Endocrine Endocrinology: Denies polydipsia or polyuria Vital Signs Vital Signs Vital Signs: 01/27/24 11:30 01/27/24 12:18 01/27/24 13:42 Temperature 99 F 98.0 F Temperature Source Temporal Oral Pulse Rate 133 H 120 H 92 Respiratory Rate 26 H 31 H 15 Blood Pressure 174/106 H 192/108 H 181/102 H Blood Pressure Mean 128 136 128 Pulse Ox 100 100 99 Oxygen Delivery Method Room Air Room Air Room Air 01/27/24 13:58 01/27/24 14:01 Temperature Temperature Source Pulse Rate 85 88 Respiratory Rate 17 Blood Pressure 168/98 H 132/95 H Blood Pressure Mean 121 107 Pulse Ox 98 Oxygen Delivery Method Room Air Weight Weight: 62.3 kg Body Mass Index (BMI) 22.1 Physical Exam Const alert, oriented x3, no apparent distress and average body habitus Constitutional Narrative: Pleasant younger male, sitting up comfortably in bed, conversing normally, in noacute distress. General Appearance: cooperative and comfortable HEENT normocephalic, head/scalp atraumatic, hearing grossly normal bilaterally and nasal mucous membranes and turbinates normal Eyes PERRL, EOMs intact bilaterally and conjunctivae normal Neck full ROM Chest inspection of chest normal Resp normal respiratory effort, normal air movement, no use of accessory muscles and clear to auscultation bilaterally Cardio no murmurs and peripheral pulses 2+ throughout Cardio Narrative: Tachycardic, regular rhythm. GI GI Narrative: Mildly tender to palpation diffusely. Otherwise soft and nondistended. Back/Spine normal ROM Extremity normal to inspection, full ROM and no pedal edema Skin no rashes or lesions noted Neuro moves all extremities and no focal motor deficits Neuro Narrative: Decreased sensation noted in the right foot. Speech: speech normal Psych mental status grossly normal Results Lab / Micro Data 01/27/24 12:15 01/27/24 12:15 Labs: Laboratory Results - last 24 hr 01/27/24 12:15: WBC 12.9 H, RBC 5.32, Hgb 14.9, Hct 44.8, MCV 84.2, MCH 28.0, MCHC 33.3, RDW Std Deviation 40.4, RDW Coeff of [place] 13.2, Plt Count 375, MPV 9.8, Immature Gran % (Auto) 0.400, Neut % (Auto) 65.5, Lymph % (Auto) 26.1, [place]% (Auto) 7.0, Eos % (Auto) 0.5, Baso % (Auto) 0.5, Absolute Neuts (auto) 8.4 H, Absolute Lymphs (auto) 3.36, Nucleated RBC % 0, Sodium 132 L, Potassium 4.0, Chloride 100, Carbon Dioxide 17.0 L, Anion Gap 15, BUN 22 H, Creatinine 1.15, Estim Creat Clear Calc 76.75, Est GFR (MDRD) Af Amer 91, Est GFR (MDRD) Non-Af 76, BUN/Creatinine Ratio 19.1, Glucose 322 H, Calcium 9.6, Total Bilirubin 0.70,AST 17, ALT 15 L, Alkaline Phosphatase 91, Total Protein 9.2 H, Albumin 4.2, Globulin 5.0 H, Albumin/Globulin Ratio 0.8 L, Lipase 47, Urine Color Yellow, Urine Clarity Clear, Urine pH 5.0, Ur Specific Burnett 1.025, Urine Protein 30 H, Urine Glucose (UA) 1000 H, Urine Ketones 150 A*, Urine Occult Blood 50 H, Urine Nitrite Negative, Urine Bilirubin Negative, Urine Urobilinogen Normal, Ur Leukocyte Esterase Negative, Urine RBC 5-10 SEEN, Urine WBC 0 SEEN, Ur Squamous Epith Cells 0 SEEN, Urine Bacteria 0 SEEN, Urine Mucus 0 SEEN Assessment & Plan Assessment/Plan (1) DKA (diabetic ketoacidoses): (2) Type 2 diabetes mellitus with hyperglycemia: (3) Hypertension: PLAN: Plan Patient is a 38-year-old male who presented to [facility] ED on 01/27/2024 with intractable nausea and vomiting and abdominal pain. 1. Mild DKA, poorly controlled diabetes mellitus with hyperglycemia, suspected diabetic neuropathy and concern for gastroparesis ? Mild DKA on admit as evidenced by glucose 322, sodium 132, bicarb 17, anion gap 15, urine ketones 150, nausea/vomiting and poor appetite on admit. ? Diagnosed with diabetes in 2014, A1c 13.9% at that time. Has been treated like type 2 diabetes but patient was in late 20s and had fairly thin body habitus at that time. No A1c's recorded in our system after that. Was on metformin for a time, current medications now glipizide 10 mg daily and pioglitazone 15 mg daily. Patient reports good compliance with these meds. ? Have high concern that patient has had uncontrolled diabetes for many years that has now led to complications including diabetic neuropathy, diabetic retinopathy, proteinuria, and possible gastroparesis. ? A1c 11.1% on admit. Patient was given 2 L of IV normal saline in the ED, as well as Humalog 10 units x 1 dose. ? Admit under inpatient [facility] to [facility]. Will start Lantus 15 units at night and sliding-scale insulin with meals for now, adjust as needed. Follow-up BMP tonight and again tomorrow morning. Will hold on further IV fluids for now, encouraged p.o. intake. Will start gabapentin 100 mg 3 times daily for neuropathy. 4-hour gastric emptying study ordered. Nutrition and visual educator consulted. Depending on gastric emptying study results, can consider GI consult. 2. Hypertension ? Patient was found to be very hypertensive in the ED on 01/24, has remained hypertensive on this ED visit. Denies any previous diagnosis of hypertension but does report having a strong family history of hypertension. ? Suspect patient has essential hypertension given his BP readings have remainedhigh despite him appearing very comfortable on exam. ? Will start lisinopril 5 mg daily and amlodipine 5 mg daily now. IV hydralazine every 4 hours as needed ordered as well. Monitor BP closely, adjustregimen as needed. 3. Mild leukocytosis ? WBC count 12.9 on admit. Suspect reactive in setting of mild DKA, low concernfor active infection. Was given doses of ciprofloxacin and Flagyl in the ED forconcern for gastroenteritis, will hold on further antibiotics for now. Follow-up a.m. CBC. 4. Proteinuria ? Presumed secondary to poorly controlled diabetes as well as possibly uncontrolled hypertension. Creatinine 1.15 on admit, estimated GFR 91. Urine protein elevated at 46, urine protein to creatinine ratio elevated at 487. Treating diabetes and hypertension as noted above. Outpatient follow-up. 5. Cannabis use ? Reports smoking marijuana daily. Encouraged cessation. DVT prophylaxis: Lovenox CODE STATUS: Full code, verified Expected disposition: Home, 2 to 3 days Total clinical time spent by myself addressing the patient's medical issues, reviewing all the data, and collaborating with patient's care team: 55 minutes. Charges/Coding Visit Charges Inpatient E&M: 81987 Init Hosp L2 01/27/24 1611 <Electronically signed by Troy Wagoner DO> Cosigner Signature (if applicable): CC: CARBURETOR REBUILDEROskar Camarena; Dr. Troy Wagoner, DO~ Signed [facility] Work Phone: Hospital Discharge instructions Additional Instructions Continue to not smoke cigarettes. Follow-up with a dentist as soon as possible. Take the antibiotics as directed. Return with difficulty swallowing or breathing, sustained high fever, new or worsening symptoms.[facility] Work Phone: Reason for referral (narrative)* Outpatient Procedure (Routine) - Authorized Specialty Diagnoses / Procedures Referred By Contac t Referred To [facility] Diagnoses Diabetes 1.5, managed as type 2 (HCC) Diminished pulses in lower extremity Procedures PVR ANK PRESS NICHOLAS VAS LAB NON-INVAS PHYSIOLOGIC STD EXTREMITY ART 2 LEVEL [facility] [address] [place] [address] [facility] [address] [place] [address] Referral ID Status Reason Start Date Expiration Date Visits Requested Visits Authorized [id number] Authorized Auto-Generat ed Referral 02/08/2024 02/07/2025 1 1 [facility] (narrative)No reason for referral information availableWSelect Medical [facility] Work Phone: Reason for Referral Specialty Diagnoses / Procedures Referred By Contac t Referred To Contact Podiatry Diagnoses Diabetes 1.5, managed as type 2 (HCC) Callus of foot Procedures CONSULT TO PODIATRY OFFICE/OUTPATIENT NEW [facility] 60-74 MINUTES Austin Camarena APRN.SHIPPING ASSOCIATE [address] [place] [address] Referral ID Status Reason Start Date Expiration Date Visits Requested Visits Authorized [id number] Authorized PCP Requested Referral 10/15/2023 10/14/2024 1 1 Specialty Diagnoses / Procedures Referred By Contac t Referred To Contact Ophthalmology Diagnoses Diabetes 1.5, managed as type 2 (HCC) Procedures CONSULT TO OPHTHALMOLOGY OFFICE/OUTPATIENT NEW HIGH MDM 60-74 MINUTES Austin Camarena APRN.SHIPPING ASSOCIATE [address] [place] [address] Referral ID Status Reason Start Date Expiration Date Visits Requested Visits Authorized [id number] Authorized PCP Requested Referral 10/15/2023 10/14/2024 1 1 Specialty Diagnoses / Procedures Referred By Hawk t Referred To Contact Diagnoses Bipolar affective disorder, remission status unspecified (HCC) Procedures CONSULT TO PSYCHIATRY Austin Camarena APRN.SHIPPING ASSOCIATE [address] [place] [address] Raegan, Maria C Centeno [address] [id number] Referral ID Status Reason Start Date Expiration Date Visits Requested Visits Authorized [id number] Ref Not Required PCP Requested Referral 10/15/2023 10/14/2024 1 1 Specialty Diagnoses / Procedures Referred By Hawk t Referred To Contact Diagnoses Type 2 diabetes mellitus without complication, without long-term current use of insulin (HCC) Procedures CONSULT TO DIABETES EDUCATION DSME/MNT MEDICAL NUTRITION ASSMT&IVNTJ INDIV EACH 15 MT MEDICAL NUTRITION ASSMT&IVNTJ INDIV EACH 15 MT MEDICAL NUTRITION ASSMT&IVNTJ INDIV EACH 15 MT MEDICAL NUTRITION ASSMT&IVNTJ INDIV EACH 15 MT Austin Camarena APRN.SHIPPING ASSOCIATE [address] [place] [address] Referral ID Status Reason Start Date Expiration Date Visits Requested Visits Authorized [id number] Authorized PCP Requested Referral 10/21/2024 1 1 Specialty Diagnoses / Procedures Referred By Hawk t Referred To Contact Diagnoses Diabetes 1.5, managed as type 2 (HCC) Elevated LDL cholesterol level Procedures ENDOCRINOLOGY DIETITIAN VISIT (MNT) MEDICAL NUTRITION ASSMT&IVNTJ INDIV EACH 15 MT MEDICAL NUTRITION ASSMT&IVNTJ INDIV EACH 15 MT MEDICAL NUTRITION ASSMT&IVNTJ INDIV EACH 15 MT MEDICAL NUTRITION ASSMT&IVNTJ INDIV EACH 15 MT Austin Camarena APRN.SHIPPING ASSOCIATE [address] [place] [address] Referral ID Status Reason Start Date Expiration Date Visits Requested Visits Authorized [id number] Authorized PCP Requested Referral 05/16/2024 05/16/2025 1 1 Chief Complaint and Reason for Visit Chief Complaint Abd Pain Chief Complaint Abd Pain INTRACTABLE ABDOMINAL PAIN, POORLY CONTROLLED DIAB Reason for Visit Abdominal pain, acut e, generalized Acute dehydration DKA (diabetic ketoacidoses) Nausea & vomiting Type 2 diabetes mellitus with hyperglycemia Hypertension Chief Complaint Abd Pain INTRACTABLE ABDOMINAL PAIN, POORLY CONTROLLED DIAB INTRACTABLE ABDOMINAL PAIN, POORLY CONTROLLED DIAB INTRACTABLE ABDOMINAL PAIN, POORLY CONTROLLED DIAB Reason for Visit Abdominal pain, acut e, generalized Acute dehydration DKA (diabetic ketoacidoses) Nausea & vomiting Type 2 diabetes mellitus with hyperglycemia Hypertension Chief Complaint Admit Date abd pain October 28, 2024 1:40pm 3 M FU R/S 10/04November 22, 2024 1 1:43am 2 M FU January 18, 2025 1:0 2pm FACIAL SWELLING February 06, 2025 5:09 pm Reason for Visit Admit Date Elevated alkaline phosphatase level Louis jimenez 2024 11:43am Elevated AST (SGOT) November 22, 2024 1 1:43am Hypertension November 22, 2024 1 1:43am Insulin pump titration November 22 11:43am Presence of insulin pump November 22, 2 025 11:43am Type 1 diabetes November 22, 2024 1 1:43am Elevated alkaline phosphatase level [facility] 2024 1:02pm Elevated AST (SGOT) January 18, 2025 1:0 2pm High cholesterol January 18, 2025 1:0 2pm Hypertension January 18, 2025 1:0 2pm Insulin pump titration January 18, 2025 1:02pm Presence of insulin pump January 18 1:02pm Type 1 diabetes January 18, 2025 1:0 2pm Chief Complaint Admit Date 2 M FU January 18, 2025 1:0 2pm FACIAL SWELLING February 06, 2025 5:09 pm 3 M FU April 19, 2025 1:07 pm Reason for Visit Admit Date Elevated alkaline phosphatase level [facility] 2024 1:02pm Elevated AST (SGOT) January 18, 2025 1:0 2pm High cholesterol January 18, 2025 1:0 2pm Hypertension January 18, 2025 1:0 2pm Insulin pump titration January 18, 2025 1:02pm Presence of insulin pump January 18 1:02pm Type 1 diabetes January 18, 2025 1:0 2pm Chief Complaint Admit Date 2 M FU January 18, 2025 1:0 2pm FACIAL SWELLING February 06, 2025 5:09 pm 3 M FU April 19, 2025 1:07 pm 2 Wk May 03, 2025 8:44 am Reason for Visit Admit Date Elevated alkaline phosphatase level [facility] 2024 1:02pm Elevated AST (SGOT) January 18, 2025 1:0 2pm High cholesterol January 18, 2025 1:0 2pm Hypertension January 18, 2025 1:0 2pm Insulin pump titration January 18, 2025 1:02pm Presence of insulin pump January 18 1:02pm Type 1 diabetes January 18, 2025 1:0 2pm High cholesterol April 19, 2025 1:07 pm Hypertension April 19, 2025 1:07 pm Insulin pump titration April 19, 2025 1 :07pm Presence of insulin pump April 19, 2025 1:07pm Type 1 diabetes April 19, 2025 1:07 pm Chief Complaint Admit Date 2 M January 18, 2025 1:0 2pm FACIAL SWELLING February 06, 2025 5:09 pm 3 M FU April 19, 2025 1:07 pm 2 Wk May 03, 2025 8:44 am 6 M May 17, 2025 2:45 pm Reason for Visit Admit Date Elevated alkaline phosphatase level [facility] 2024 1:02pm Elevated AST (SGOT) January 18, 2025 1:0 2pm High cholesterol January 18, 2025 1:0 2pm Hypertension January 18, 2025 1:0 2pm Insulin pump titration January 18, 2025 1:02pm Presence of insulin pump January 18 1:02pm Type 1 diabetes January 18, 2025 1:0 2pm High cholesterol April 19, 2025 1:07 pm Hypertension April 19, 2025 1:07 pm Insulin pump titration April 19, 2025 1 :07pm Presence of insulin pump April 19, 2025 1:07pm Type 1 diabetes April 19, 2025 1:07 pm Bipolar disorder May 03, 2025 8:44 am Hypertension May 03, 2025 8:44 am Presence of insulin pump May 03, 2025 8:44am Type 1 diabetes May 03, 2025 8:44 am Chief Complaint Admit Date 3 M FU April 19, 2025 1:07 pm 2 Wk FU May 03, 2025 8:44 am 6 M FU May 17, 2025 2:45 pm 1 M FU June 08, 2025 10: 46am Reason for Visit Admit Date High cholesterol April 19, 2025 1:07 pm Hypertension April 19, 2025 1:07 pm Insulin pump titration April 19, 2025 1 :07pm Presence of insulin pump April 19, 2025 1:07pm Type 1 diabetes April 19, 2025 1:07 pm Bipolar disorder May 03, 2025 8:44 am Hypertension May 03, 2025 8:44 am Presence of insulin pump May 03, 2025 8:44am Type 1 diabetes May 03, 2025 8:44 am Gastroparesis May 17, 2025 2:45 pm GERD (gastroesophageal reflux disease) J jordy 2024 2:45pm H. pylori infection May 17, 2025 2:45 pm Chief Complaint Admit Date 3 M FU April 19, 2025 1:07 pm 2 Wk FU May 03, 2025 8:44 am 6 M FU May 17, 2025 2:45 pm 1 M June 08, 2025 11: 24am Advance Directives No Advanced Directives Records Found Advance Directive Response Recorded Date/ Time Living Will No January 25, 2024 9:05pm Power of Mortgage Loan Officer No January 24 9:05pm Advance Directive Response Recorded Date/ Time Living Will No January 27, 2024 4:25pm Power of Mortgage Loan Officer No January 26 4:25pm Advance Directive Response Recorded Date/ Time Living Will Yes May 14, 2024 3 :37pm Do you have a Healthcare Pow er of Mortgage Loan Officer? Yes May 14, 2024 3:37pm Living Will No October 28, 2 024 3:20pm Do you have a Healthcare Pow er of Mortgage Loan Officer? No October 28, 2024 3:20pm Living Will No February 06, 2025 5:28pm Do you have a Healthcare Pow er of Mortgage Loan Officer? Yes February 06, 2025 5:28pm Name of Medical Power of Mortgage Loan Officer darlene diamond February 06, 2025 5:28pm Advance Directive Response Recorded Date/ Time Living Will No February 06, 2025 5:28pm Do you have a Healthcare Power of Mortgage Loan Officer? Yes February 06, 2025 5:28pm Name of Medical Power of Mortgage Loan Officer darlene diamond February 06, 2025 5:28pm Summary Purpose Family History Relationship Condition Age at Onset Recorded Date/T kwaku mother Diabetes mellitus Unknown sister Diabetes mellitus Unknown father Cerebrovascular accident (CVA) Unknown Myocardial infarction Unknown No Family History Records Found Additional Source Comments Source Comments (unrecognize d section and content) In the event this informatio n is protected by the Federal Confidentiality of Alcohol and Drug Abuse Patient Records regulations: The Federal rules restrict any use of the information to criminally investigate or prosecute any alcohol or drug abuse patient.[facility] the event this information is protected by the Federal Confidentiality of Alcohol and Drug Abuse Patient Records regulations: The Federal rules restrict any use of the information to criminally investigate or prosecute any alcohol or drug abuse patient.[facility] the event this information is protected by the Federal Confidentiality of Alcohol and Drug Abuse Patient Records regulations: The Federal rules restrict any use of the information to criminally investigate or prosecute any alcohol or drug abuse patient.[facility] the event this information is protected by the Federal Confidentiality of Alcohol and Drug Abuse Patient Records regulations: The Federal rules restrict any use of the information to criminally investigate or prosecute any alcohol or drug abuse patient.[facility] the event this information is protected by the Federal Confidentiality of Alcohol and Drug Abuse Patient Records regulations: The Federal rules restrict any use of the information to criminally investigate or prosecute any alcohol or drug abuse patient.[facility] the event this information is protected by the Federal Confidentiality of Alcohol and Drug Abuse Patient Records regulations: The Federal rules restrict any use of the information to criminally investigate or prosecute any alcohol or drug abuse patient.[facility] the event this information is protected by the Federal Confidentiality of Alcohol and Drug Abuse Patient Records regulations: The Federal rules restrict any use of the information to criminally investigate or prosecute any alcohol or drug abuse patient.[facility] the event this information is protected by the Federal Confidentiality of Alcohol and Drug Abuse Patient Records regulations: The Federal rules restrict any use of the information to criminally investigate or prosecute any alcohol or drug abuse patient.[facility] the event this information is protected by the Federal Confidentiality of Alcohol and Drug Abuse Patient Records regulations: The Federal rules restrict any use of the information to criminally investigate or prosecute any alcohol or drug abuse patient.[facility] the event this information is protected by the Federal Confidentiality of Alcohol and Drug Abuse Patient Records regulations: The Federal rules restrict any use of the information to criminally investigate or prosecute any alcohol or drug abuse patient.[facility] the event this information is protected by the Federal Confidentiality of Alcohol and Drug Abuse Patient Records regulations: The Federal rules restrict any use of the information to criminally investigate or prosecute any alcohol or drug abuse patient.[facility] the event this information is protected by the Federal Confidentiality of Alcohol and Drug Abuse Patient Records regulations: The Federal rules restrict any use of the information to criminally investigate or prosecute any alcohol or drug abuse patient.[facility] the event this information is protected by the Federal Confidentiality of Alcohol and Drug Abuse Patient Records regulations: The Federal rules restrict any use of the information to criminally investigate or prosecute any alcohol or drug abuse patient.[facility] the event this information is protected by the Federal Confidentiality of Alcohol and Drug Abuse Patient Records regulations: The Federal rules restrict any use of the information to criminally investigate or prosecute any alcohol or drug abuse patient.[facility]In the event this information is protected by the Federal Confidentiality of Alcohol and Drug Abuse Patient Records regulations: The Federal rules restrict any use of the information to criminally investigate or prosecute any alcohol or drug abuse patient.[facility]hillIn the event this information is protected by the Federal Confidentiality of Alcohol and Drug Abuse Patient Records regulations: The Federal rules restrict any use of the information to criminally investigate or prosecute any alcohol or drug abuse patient.[facility]hillIn the event this information is protected by the Federal Confidentiality of Alcohol and Drug Abuse Patient Records regulations: The Federal rules restrict any use of the information to criminally investigate or prosecute any alcohol or drug abuse patient.[facility]hillIn the event this information is protected by the Federal Confidentiality of Alcohol and Drug Abuse Patient Records regulations: The Federal rules restrict any use of the information to criminally investigate or prosecute any alcohol or drug abuse patient.[facility]hillIn the event this information is protected by the Federal Confidentiality of Alcohol and Drug Abuse Patient Records regulations: The Federal rules restrict any use of the information to criminally investigate or prosecute any alcohol or drug abuse patient.[facility]hillIn the event this information is protected by the Federal Confidentiality of Alcohol and Drug Abuse Patient Records regulations: The Federal rules restrict any use of the information to criminally investigate or prosecute any alcohol or drug abuse patient.[facility]hillIn the event this information is protected by the Federal Confidentiality of Alcohol and Drug Abuse Patient Records regulations: The Federal rules restrict any use of the information to criminally investigate or prosecute any alcohol or drug abuse patient.[facility]hillIn the event this information is protected by the Federal Confidentiality of Alcohol and Drug Abuse Patient Records regulations: The Federal rules restrict any use of the information to criminally investigate or prosecute any alcohol or drug abuse patient.[facility]hillIn the event this information is protected by the Federal Confidentiality of Alcohol and Drug Abuse Patient Records regulations: The Federal rules restrict any use of the information to criminally investigate or prosecute any alcohol or drug abuse patient.[facility]hillIn the event this information is protected by the Federal Confidentiality of Alcohol and Drug Abuse Patient Records regulations: The Federal rules restrict any use of the information to criminally investigate or prosecute any alcohol or drug abuse patient.[facility]hillIn the event this information is protected by the Federal Confidentiality of Alcohol and Drug Abuse Patient Records regulations: The Federal rules restrict any use of the information to criminally investigate or prosecute any alcohol or drug abuse patient.[facility]hillIn the event this information is protected by the Federal Confidentiality of Alcohol and Drug Abuse Patient Records regulations: The Federal rules restrict any use of the information to criminally investigate or prosecute any alcohol or drug abuse patient.[facility]hillIn the event this information is protected by the Federal Confidentiality of Alcohol and Drug Abuse Patient Records regulations: The Federal rules restrict any use of the information to criminally investigate or prosecute any alcohol or drug abuse patient.[facility]hillIn the event this information is protected by the Federal Confidentiality of Alcohol and Drug Abuse Patient Records regulations: The Federal rules restrict any use of the information to criminally investigate or prosecute any alcohol or drug abuse patient.[facility]hillIn the event this information is protected by the Federal Confidentiality of Alcohol and Drug Abuse Patient Records regulations: The Federal rules restrict any use of the information to criminally investigate or prosecute any alcohol or drug abuse patient.[facility]hillIn the event this information is protected by the Federal Confidentiality of Alcohol and Drug Abuse Patient Records regulations: The Federal rules restrict any use of the information to criminally investigate or prosecute any alcohol or drug abuse patient.[facility]hillIn the event this information is protected by the Federal Confidentiality of Alcohol and Drug Abuse Patient Records regulations: The Federal rules restrict any use of the information to criminally investigate or prosecute any alcohol or drug abuse patient.[facility]hillIn the event this information is protected by the Federal Confidentiality of Alcohol and Drug Abuse Patient Records regulations: The Federal rules restrict any use of the information to criminally investigate or prosecute any alcohol or drug abuse patient.[facility]hillIn the event this information is protected by the Federal Confidentiality of Alcohol and Drug Abuse Patient Records regulations: The Federal rules restrict any use of the information to criminally investigate or prosecute any alcohol or drug abuse patient.[facility] [place] Reason for Visit (unrecogniz ed section and content) Reason Comments Establish Care Cough X 1 year Reason Comments Results Reason Comments Follow Up Reason Comments Refill Request Reason Comments Follow Up Reason Comments Vomiting Reason Comments ER F/U Reason Comments New Diabetic Foot Care Pain Callous Specialty Diagnoses / Procedures Referred By Hawk t Referred To Contact Podiatry Diagnoses Diabetes 1.5, managed as type 2 (HCC) Callus of foot Procedures CONSULT TO PODIATRY OFFICE/OUTPATIENT NEW HIGH MDM 60-74 MINUTES Austin Camarena, MEDICATION AIDE.SHIPPING ASSOCIATE [address] [place] [id number] Referral ID Status Reason Start Date Expiration Date V isits Requested Visits Authorized [id number] Closed PCP Requested Referral 10/15/2023 10/14/2024 1 1 Reason Onset Date Comments Refill Request 04/30/2024 Reason Comments ER F/U Reason Comments Hospital F/U Reason Comments Diabetic Eye Exam Type 2 IDDM Reason Comments F/U 6 months Reason Comments Refraction Reason Onset Date Comments Refill Request 01/05/2025 Reason Comments Medication Follow-up Reason Onset Date Comments Refill Request 03/06/2025 Reason Onset Date Comments Refill Request 03/26/2025 Care Teams (unrecognized sec tion and content) Senior Systems Architect Relationship Specialty Start Date End Date Austin Camarena APRN.SHIPPING ASSOCIATE [address] [place] [id number] PCP - General Family Medicine 10/15/23 Senior Systems Architect Relationship Specialty Start Date End Date Austin Camarena, MEDICATION AIDE.SHIPPING ASSOCIATE [address] [place] [address] [id number] PCP - General Family Medicine 10/15/23 Senior Systems Architect Relationship Specialty Start Date End Date Austin Camarena, MEDICATION AIDE.SHIPPING ASSOCIATE [address] [place] [address] [phone] PCP - General Family Medicine 10/15/23 Senior Systems Architect Relationship Specialty Start Date End Date Austin Camarena, MEDICATION AIDE.SHIPPING ASSOCIATE [address] [place] [address] [phone] PCP - General Family Medicine 10/15/23 Senior Systems Architect Relationship Specialty Start Date End Date Austin Camarena, MEDICATION AIDE.SHIPPING ASSOCIATE [address] [place] [address] [phone] PCP - General Family Medicine 10/15/23 Team Status: Active Member Role Status Dates No Primary Care Physician Family Provider Active Austin Camarena , CARBURETOR REBUILDER-C Primary Care Provider Active Team Status: Inactive Member Role Status Dates Austin Camarena , CARBURETOR REBUILDER-C Primary Care Provider Active Dr. Ryan Mccracken MD Emergency Provider Active Team Status: Active Member Role Status Dates Austin Caamrena , CARBURETOR REBUILDER-C Primary Care Provider Active Dr. Connie Hermosillo MD Emergency Provider Active Dr. Troy Wagoner , DO Admit Provider, Attending Provider Active Senior Systems Architect Relationship Specialty Start Date End Date Austin Camarena MEDICATION AIDE.SHIPPING ASSOCIATE [address] [place] [address] [id number] PCP - General Family Medicine 10/15/23 Team Status: Active Member Role Status Dates Austin Caamrena , CARBURETOR REBUILDER-C Primary Care Provider Active Dr. Jaycob Argueta , Attending Provider Active Team Status: Active Member Role Status Dates Austin Camarena CARBURETOR REBUILDER-C Primary Care Provider Active Dr. Connie Hermosillo MD Emergency Provider Active Dr. Troy Wagoner , Admit Provider, Other Pro vider Active Dr. Shantell Alcaraz MD Attending Provider, Other Prov ider Active Team Status: Inactive Member Role Status Dates Austin Camarena CARBURETOR REBUILDER-C Primary Care Provider Active Dr. Connie Hermosillo MD Emergency Provider Active Dr. Troy Wagoner , DO Admit Provider, Other Pro vider Active Dr. Shantell Alcaraz MD Attending Provider Active Senior Systems Architect Relationship Specialty Start Date End Date Austin Camarena, MEDICATION AIDE.SHIPPING ASSOCIATE [address] [place] [address] [id number] PCP - General Family Medicine 10/15/23 Senior Systems Architect Relationship Specialty Start Date End Date Austin Camarena, MEDICATION AIDE.SHIPPING ASSOCIATE [address] [place] [address] [phone] PCP - General Family Medicine 10/15/23 Senior Systems Architect Relationship Specialty Start Date End Date Austin Camarena, MEDICATION AIDE.SHIPPING ASSOCIATE [address] [place] [address] [phone] PCP - General Family Medicine 10/15/23 Senior Systems Architect Relationship Specialty Start Date End Date Austin Camarena APRN.SHIPPING ASSOCIATE [address] [place] [address] [id number] PCP - General Family Medicine 10/15/23 Senior Systems Architect Relationship Specialty Start Date End Date Austin Camarena APRN.SHIPPING ASSOCIATE [address] [place] [address] [phone] PCP - General Family Medicine 10/15/23 Senior Systems Architect Relationship Specialty Start Date End Date Austin Camarena APRN.SHIPPING ASSOCIATE [address] [place] [address] [id number] PCP - General Family Medicine 10/15/23 Senior Systems Architect Relationship Specialty Start Date End Date Austin Camarena MEDICATION AIDE.SHIPPING ASSOCIATE [address] [place] [address] [phone] PCP - General Family Medicine 10/15/23 Senior Systems Architect Relationship Specialty Start Date End Date Austin Camarena, MEDICATION AIDE.SHIPPING ASSOCIATE [address] [place] [address] [phone] PCP - General Family Medicine 10/15/23 Senior Systems Architect Relationship Specialty Start Date End Date Austin Camarena, MEDICATION AIDE.SHIPPING ASSOCIATE [address] [place] [address] [id number] PCP - General Family Medicine 10/15/23 Senior Systems Architect Relationship Specialty Start Date End Date Austin Camarena APRN.SHIPPING ASSOCIATE [address] [place] [address] [id number] PCP - General Family Medicine 12/8/23 Senior Systems Architect Relationship Specialty Start Date End Date Austin Camarena, MEDICATION AIDE.SHIPPING ASSOCIATE [address] [place] [address] [phone] PCP - General Family Medicine 10/15/23 Senior Systems Architect Relationship Specialty Start Date End Date Austin Camarena, MEDICATION AIDE.SHIPPING ASSOCIATE [address] [place] [address] [phone] PCP - General Family Medicine 10/15/23 Senior Systems Architect Relationship Specialty Start Date End Date Austin Camarena, MEDICATION AIDE.SHIPPING ASSOCIATE [address] [place] [address] [phone] PCP - General Family Medicine 10/15/23 Senior Systems Architect Relationship Specialty Start Date End Date Austin Camarena, MEDICATION AIDE.SHIPPING ASSOCIATE [address] [place] [address] [phone] PCP - General Family Medicine 10/15/23 Team Status: Active Member Role Status Dates JIE Geller Primary Care Provider Active Team Status: Inactive Member Role Status Dates JIE Geller Primary Care Provider Active Start: October 28, 2024 End: October 28, 2024 Ludin Sanderson MD Attending Provider Active Star t: October 28, 2024 End: October 28, 2024 Ludin Sanderson MD Emergency Provider Active Star t: October 28, 2024 End: October 28, 2024 Team Status: Inactive Member Role Status Dates JIE Baldwin Attending Provider Active Start: November 22, 2024 End: November 22, 2024 JIE Geller Primary Care Provider Active Start: November 22, 2024 End: November 22, 2024 JIE Geller Referring Provider Active Start: November 22, 2024 End: November 22, 2024 Team Status: Inactive Member Role Status Dates JIE Geller Primary Care Provider Active Start: January 18, 2025 End: January 18, 2025 Austin Knoble , CARBURETOR REBUILDER-C Referring Provider Active Start: January 18, 2025 End: January 18, 2025 JIE Baldwin Attending Provider Active Start: January 18, 2025 End: January 18, 2025 Team Status: Inactive Member Role Status Dates Austin Camarena NP-C Primary Care Provider Active Start: February 06, 2025 End: February 06, 2025 Ludin Sanderson MD Emergency Provider Active Star t: February 06, 2025 End: February 06, 2025 Senior Systems Architect Relationship Specialty Start Date End Date Austin Camarena APRN.SHIPPING ASSOCIATE [address] [place] [address] [phone] PCP - General Family Medicine 10/15/23 Team Status: Inactive Member Role Status Dates uAstin Camarena NP-C Primary Care Provider Active Start: February 06, 2025 End: February 06, 2025 Ludin Sanderson MD Attending Provider Active Star t: February 06, 2025 End: February 06, 2025 Ludin Sanderson MD Emergency Provider Active Star t: February 06, 2025 End: February 06, 2025 Team Status: Inactive Member Role Status Dates Austin Camarena CARBURETOR REBUILDER-C Primary Care Provider Active Start: April 19, 2025 End: April 19, 2025 Austin Camarena NP-C Referring Provider Active Start: April 19, 2025 End: April 19, 2025 JIE Baldwin Attending Provider Active Start: April 19, 2025 End: April 19, 2025 Senior Systems Architect Relationship Specialty Start Date End Date Austin Camarena APRN.SHIPPING ASSOCIATE [address] [place] [address] [id number] PCP - General Family Medicine 10/15/23 Team Status: Inactive Member Role Status Dates Austin Camarena NP-C Primary Care Provider Active Start: May 03, 2025 End: May 03, 2025 Austin Camarena NP-C Referring Provider Active Start: May 03, 2025 End: May 03, 2025 Dr. Mushtaq Hernandez MD Attending Provider Active Sta rt: May 03, 2025 End: May 03, 2025 Team Status: Active Member Role/Relationship Status Dates Austin Camarena , CARBURETOR REBUILDER-C Primary Care Provider Active Team Status: Inactive Member Role/Relationship Status Dates Austin Camarena CARBURETOR REBUILDER-C Primary Care Provider Active Start: January 18, 2025 End: January 18, 2025 Austin Camarena CARBURETOR REBUILDER-C Referring Provider Active Start: January 18, 2025 End: January 18, 2025 Queenie Gonzales CARBURETOR REBUILDER-C Attending Provider Active Start: January 18, 2025 End: January 18, 2025 Team Status: Inactive Member Role/Relationship Status Dates Austin Camarena CARBURETOR REBUILDER-C Primary Care Provider Active Start: February 06, 2025 End: February 06, 2025 Ludin Sanderson MD Attending Provider Active Star t: February 06, 2025 End: February 06, 2025 Ludin Sanderson MD Emergency Provider Active Star t: February 06, 2025 End: February 06, 2025 Team Status: Inactive Member Role/Relationship Status Dates Austin Camarena , CARBURETOR REBUILDER-C Primary Care Provider Active Start: April 19, 2025 End: April 19, 2025 Austin Camarena CARBURETOR REBUILDER-C Referring Provider Active Start: April 19, 2025 End: April 19, 2025 Queenie Gonzales CARBURETOR REBUILDER-C Attending Provider Active Start: April 19, 2025 End: April 19, 2025 Team Status: Inactive Member Role/Relationship Status Dates Austin Camarena CARBURETOR REBUILDER-C Primary Care Provider Active Start: May 03, 2025 End: May 03, 2025 Austin Camarena CARBURETOR REBUILDER-C Referring Provider Active Start: May 03, 2025 End: May 03, 2025 Dr. Mushtaq Hernandez MD Attending Provider Active Sta rt: May 03, 2025 End: May 03, 2025 Team Status: Inactive Member Role/Relationship Status Dates Austin Camarena CARBURETOR REBUILDER-C Primary Care Provider Active Start: May 17, 2025 End: May 17, 2025 Austin Camarena CARBURETOR REBUILDER-C Referring Provider Active Start: May 17, 2025 End: May 17, 2025 Dr. Jaycob Argueta DO Attending Provider Active Start: May 17, 2025 End: May 17, 2025 Team Status: Inactive Member Role/Relationship Status Dates Austin Camarena CARBURETOR REBUILDER-C Primary Care Provider Active Start: April 19, 2025 End: April 19, 2025 Austin Camarena CARBURETOR REBUILDER-C Referring Provider Active Start: April 19, 2025 End: April 19, 2025 ONEL BaldwinC Attending Provider Active Start: April 19, 2025 End: April 19, 2025 Team Status: Inactive Member Role/Relationship Status Dates Austin Camarena NP-C Primary Care Provider Active Start: May 03, 2025 End: May 03, 2025 Austin Camarena CARBURETOR REBUILDER-C Referring Provider Active Start: May 03, 2025 End: May 03, 2025 Dr. Mushtaq Hernandez MD Attending Provider Active Sta rt: May 03, 2025 End: May 03, 2025 Team Status: Inactive Member Role/Relationship Status Dates Austin Camarena NP-C Primary Care Provider Active Start: May 17, 2025 End: May 17, 2025 Austin Camarena NP-C Referring Provider Active Start: May 17, 2025 End: May 17, 2025 Dr. Jaycob Argueta DO Attending Provider Active Start: May 17, 2025 End: May 17, 2025 Team Status: Inactive Member Role/Relationship Status Dates Austin Camarena NP-C Primary Care Provider Active Start: June 08, 2025 End: June 08, 2025 Austin Camarena CARBURETOR REBUILDER-C Referring Provider Active Start: June 08, 2025 End: June 08, 2025 Dr. Mushtaq Hernandez MD Attending Provider Active Sta rt: June 08, 2025 End: June 08, 2025 Goals (unrecognized section and content) Goals may be documented in a n alternate section No data available for this sectionGoals may be documented in an alternate section No data available for this sectionGoals may be documented in an alternate sectionGoals may be documented in an alternate sectionGoals may be documented in an alternate sectionGoals may be documented in an alternate sectionGoals may be documented in an alternate sectionGoals may be documented in an alternate section (unrecognized sect ion and content) No Status Records FoundNo Status Records FoundNo Status Records FoundNo Status Records Found INFORMATION SOURCE (unrecogn ized section and content) DATE CREATED AUTHOR 05/15/2024 [facility] ([place]) DATE CREATED AUTHOR AUTHOR'S ORGANIZ ATION 12/22/2024 [facility] DATE CREATED AUTHOR AUTHOR'S ORGANIZ ATION 05/22/2025 [facility] DATE CREATED AUTHOR AUTHOR'S ORGANIZ ATION 06/10/2025 [facility] FOR RECORDS PERTAINING TO PATIENTS WHO ARE OR HAVE BEEN ENROLLED IN A CHEMICAL DEPENDENCY/SUBSTANCEABUSE PROGRAM, SOME INFORMATION MAY BE OMITTED. This clinical summary was aggregated from multiple sources. Caution should be exercised in using it in the provision of clinical care. This summary normalizes information from multiple sources, and as a consequence, information in this document may materially change the coding, format and clinical context of patient data. In addition, data may be omitted in some cases. CLINICAL DECISIONS SHOULD BE BASED ON THE PRIMARY CLINICAL RECORDS. [facility]. provides no warranty or guarantee of the accuracy or completeness of information in this document.
[2025-06-12 21:11] LABS: Hematocrit 41.6 % (40-54); Hemoglobin 13.9 g/dL (13.0-16.5); Immature Granulocytes Count 0.090 X10^3/uL (0.0-0.0); Mean Corp Hgb Conc 33.4 g/dL (32-36); Mean Corpuscular Volume 86.7 fL (80-94); Mean Platelet Vol. 11.1 fl (6.2-12.0); NRBC Flagged by Analyzer 0 % (0-5); Platelet Count 321 K/mm3 (150-450); RBC Distribution Width CV 13.2 % (11.6-14.6); RBC Distribution Width SD 41.5 fl (35.1-43.9); Red Blood Count 4.80 M/mm3 (4.6-6.2); White Blood Count 15.9 K/mm3 (4.4-11.0)
[2025-06-12 21:15] LABS: SITE Not entered; VBG BASE EXCESS 1 mmol/L (-1.0-3.5); VBG PO2 39 mmHg (25-40); VBG SO2 82 % (50-70); VBG TCO2 24 mmol/L (23-33)
[2025-06-12 21:35] LABS: Lipase 23 U/L (13-75)
[2025-06-12 21:51] LABS: AST(SGOT) 40 U/L (<=37); Alanine Aminotransfer ALT/SGPT 18 U/L (<=46); Albumin, Serum 4.7 g/dL (3.5-5.0); Alkaline Phosphatase 149 U/L (40-129); Anion Gap 17 (5-15); BUN 26 mg/dL (4-19); BUN/Creat Ratio 23.2 RATIO (10-20); Bilirubin, Direct < 0.08 mg/dL (0.00-0.30); Calcium,Total 10.2 mg/dL (7.6-11.0); Carbon Dioxide 20.6 mmol/L (21.0-32.0); Chloride 95 mmol/L (98-108); Estimated Creatinine Clearance 81.36 ml/min (50-250); Globulin 4.6 g/dL (2.2-4.2); Glucose 284 mg/dL (70-99); Potassium 5.0 mmol/L (3.3-5.1)
[2025-06-12 22:05] LABS: Mucous, Urine 0 SEEN /hpf (<or=2+); Squamous Epithelial Cells - UA 0 SEEN /hpf (0-5)
[2025-06-12 22:08] LABS: BETA-HYDROXYBUTYRATE 0.6 mmol/L (0.0-0.3)
[2025-06-12 22:09] LABS: Color, Urine Straw (Yellow); Glucose, Dipstick 1000 mg/dl (Normal); Ketone-Dipstick 50 mg/dl (Negative); Leukocyte Esterase-Dipstick Negative /ul (Negative); Nitrite-Dipstick Negative (Negative); Occult Blood-Urine 150 /ul (Negative); Protein-Dipstick 100 mg/dl (Negative); Specific Gravity, Urine 1.010 (1.002-1.030); Urine Bilirubin Dipstick Negative (Negative)
[2025-06-12 22:14] VITALS: BP 161/89; PULSE 109; RESP 18; TEMP 36.6; O2SAT 100
[2025-06-12 22:16] VITALS: BP 161/89; PULSE 109; O2SAT 100
[2025-06-12] MEDS: 0.9% Normal Saline (1000mL) 1,000 ML 1000 ML IV (22:26)
--- NOTE | 2025-06-12 22:28 | ED.RN ---
Dr Aguilar notified of sepsis alert.
[2025-06-12 22:30] LABS: Barbiturate Urine NEGATIVE (< 200 ng/mL); Benzodiazepine Urine NEGATIVE (< 200 ng/mL); PCP Urine NEGATIVE (< 25 ng/mL); THC Urine PRESUMPTIVE POSITIVE (< 50 ng/mL)
[2025-06-12 22:51] LABS: Red Blood Cells-Urine 0-5 SEEN /hpf (0-5)
[2025-06-12 23:11] VITALS: BP 168/91; PULSE 107; RESP 18; TEMP 36.6; O2SAT 99
[2025-06-13] VITALS: BP 119/59; PULSE 98; RESP 18; TEMP 36.6; O2SAT 98
[2025-06-13 00:13] LABS: Anion Gap 13 (5-15); BUN 24 mg/dL (4-19); BUN/Creat Ratio 25.7 RATIO (10-20); Calcium,Total 8.5 mg/dL (7.6-11.0); Carbon Dioxide 17.9 mmol/L (21.0-32.0); Chloride 100 mmol/L (98-108); Estimated Creatinine Clearance 95.21 ml/min (50-250); Glucose 232 mg/dL (70-99); Potassium 4.6 mmol/L (3.3-5.1)
[2025-06-13 00:23] VITALS: BP 119/59; PULSE 98; RESP 18; TEMP 36.6; O2SAT 98
[2025-06-13 01:00] VITALS: BP 96/53; PULSE 99; RESP 18; TEMP 36.6; O2SAT 100
[2025-06-13 01:06] LABS: Reflex Lactate? Y
[2025-06-13 01:22] LABS: SITE Not entered; VBG BASE EXCESS 0 mmol/L (-1.0-3.5); VBG PO2 55 mmHg (25-40); VBG SO2 89 % (50-70); VBG TCO2 26 mmol/L (23-33)
[2025-06-13 01:53] VITALS: BP 109/76; O2SAT 100
== END 2025-06-13 02:32 | disposition home or self-care (01) ==
PROVIDERS: Emergency Provider Surgery; PCP Nurse Practitioner Family; Visit Provider Surgery
DX: R11.2 Nausea with vomiting, unspecified (principal); F31.9 Bipolar disorder, unspecified; E11.65 Type 2 diabetes mellitus with hyperglycemia; E11.43 Type 2 diabetes mellitus with diabetic autonomic (poly)neuropathy; Z79.4 Long term (current) use of insulin; E86.0 Dehydration; K21.9 Gastro-esophageal reflux disease without esophagitis; I10 Essential (primary) hypertension; F17.210 Nicotine dependence, cigarettes, uncomplicated; Z79.899 Other long term (current) drug therapy
CPT/HCPCS: 74177; 80048; 80076; 80307; 81001; 82010; 82803; 83605; 83690; 85025; 96361; 96374; 96375; 99282; Q9967; A4216; J2405

== ENCOUNTER 2025-06-13 16:24 | Emergency (ER) | payer MEDICARE, MEDICAID, SELFPAY ==
[2025-06-13 16:25] VITALS: BP 157/108; PULSE 103; RESP 29; TEMP 36.6; O2SAT 100; BMI 26.7
[2025-06-13 16:57] LABS: Hematocrit 39.7 % (40-54); Hemoglobin 13.1 g/dL (13.0-16.5); Immature Granulocytes Count 0.030 X10^3/uL (0.0-0.0); Mean Corp Hgb Conc 33.0 g/dL (32-36); Mean Corpuscular Volume 87.3 fL (80-94); Mean Platelet Vol. 9.8 fl (6.2-12.0); NRBC Flagged by Analyzer 0 % (0-5); Platelet Count 414 K/mm3 (150-450); RBC Distribution Width CV 13.5 % (11.6-14.6); RBC Distribution Width SD 43.0 fl (35.1-43.9); Red Blood Count 4.55 M/mm3 (4.6-6.2); White Blood Count 13.0 K/mm3 (4.4-11.0)
[2025-06-13] MEDS: 0.9% Normal Saline (1000mL) 1,000 ML 1000 ML IV (16:59)
[2025-06-13 17:23] LABS: AST(SGOT) 31 U/L (<=37); Alanine Aminotransfer ALT/SGPT 9 U/L (<=46); Albumin, Serum 4.6 g/dL (3.5-5.0); Alkaline Phosphatase 127 U/L (40-129); Anion Gap 14 (5-15); BUN 19 mg/dL (4-19); BUN/Creat Ratio 19.2 RATIO (10-20); Calcium,Total 9.3 mg/dL (7.6-11.0); Carbon Dioxide 21.6 mmol/L (21.0-32.0); Chloride 100 mmol/L (98-108); Estimated Creatinine Clearance 92.27 ml/min (50-250); Globulin 3.8 g/dL (2.2-4.2); Glucose 202 mg/dL (70-99); Lipase 25 U/L (13-75); Potassium 4.3 mmol/L (3.3-5.1)
--- NOTE | 2025-06-13 18:11 | CT_ITS ---
PROCEDURE: ABDOMEN/PELVIS W IV CONT ONLY 06/13/2025 REASON FOR EXAM: ABDOMINAL PAIN TECHNIQUE: ABDOMEN/PELVIS W IV CONT ONLY Coronal and Sagittal reconstruction series were provided. CONTRAST: Isovue 300 VOLUME: 97 mL One or more dose reduction techniques were used (e.g., Automated exposure control, adjustment of the mA and/or kV according to patient size, use of iterative reconstruction technique. RADIATION DOSE SUMMARY: CTDlvol: 12 mGy DLP: 638 mGycm COMPARISON: 06/12/2025. FINDINGS: The lung bases are clear. No acute osseous abnormalities. The aorta is normal in caliber. The liver is unremarkable. Vicariously excreted contrast within the gallbladder. No surrounding inflammation. The pancreas, spleen, and pancreas are unremarkable. Symmetric enhancement of the bilateral kidneys. No hydroureteronephrosis. Concentric wall thickening of the urinary bladder. Normal caliber large and small bowel. No surrounding inflammatory changes. CT/Abdomen/Pelvis W IV Cont ONLY IMPRESSION: Concentric wall thickening of the urinary bladder. In a patient of this age th is may represent cystitis. Correlate with urinalysis. Reading Location: [id number]
[2025-06-13] MEDS: HYDROmorphone 0.5 MG/0.5 ML SYRINGE IV (18:18)
[2025-06-13 18:40] VITALS: BP 185/98; PULSE 86; RESP 15; O2SAT 98
--- NOTE | 2025-06-13 18:51 | EX.ED.DYSGE1 ---
HPI History of Present Illness Chief Complaint: Abd Pain Narrative Narrative: Patient is a 39-year-old male presenting to the emergency department for abdominal pain, nausea and vomiting. Patient has a past medical history of gastroparesis, type 1 diabetes on insulin pump, GERD, H. pylori, bipolar disorder. Patient follows with Dr. Argueta, GI. Patient was just recently here yesterday for the same complaint. States that he was discharged home and had felt better however today the pain started again. States that this pain feels similar to his pain he experiences with gastroparesis. Endorses nausea with 3 episodes of nonbloody nonbilious vomiting. Denies fever or chills. Denies dysuria or hematuria. Denies changes to his bowel movement including diarrhea or constipation. Denies any chest pain or shortness of breath. He did try to take Reglan at home but vomited up shortly after. [facility] Medical History (Updated 06/14/25 @ 00:[address] Brenda Hollins MD) Hyperlipidemia Gastroparesis Former tobacco use Cannabis use disorder Hypertension Schizophrenia Anxiety Depression Migraines Type 2 diabetes mellitus with hyperglycemia Schizo-affective schizophrenia Bipolar 1 disorder Diabetes mellitus Home Medications ?Medication ?Instructions ?Recorded ?Last Taken ?Type pen needle, diabetic 32 gauge x #100 ea 03/29/24 Unknown Rx (BD Ultra-Fine Lizzeth Pen Needle) lisinopril 20 mg tablet 20 mg PO DAILY bp #30 tabs 05/01/24 Unknown Rx gabapentin 100 mg capsule 200 mg PO TID pain 06/06/24 Unknown History insulin pump cartridge,automated #1 ea 07/05/24 Unknown Rx dose,BT with controller subcutaneous (Omnipod 5 G6 Intro Kit (Gen 5) subcutaneous cartridge with controller) pantoprazole 40 mg tablet,delayed 40 mg PO BID #60 tabs 08/15/24 Unknown Rx release insulin lispro 100 unit/mL 50 unit (0.5 mL) continuous 11/22/24 Unknown Rx subcutaneous solution (Humalog subcutaneous infusion .continuous U-100 Insulin) #45 mL buspirone 10 mg tablet 10 mg PO BID 01/18/25 Unknown History rosuvastatin 5 mg tablet 5 mg PO QHS 01/18/25 Unknown History metoclopramide HCl 5 mg tablet 5 mg PO Q8H PRN PRN nausea and 02/22/25 Unknown Rx (Reglan) vomiting #90 tabs amitriptyline 50 mg tablet 50 mg PO QHS 04/19/25 Unknown History blood-glucose sensor (Dexcom G7 #3 ea 04/19/25 Unknown Rx Sensor device) dextroamphetamine-amphetamine 10 1 tab PO BID 04/19/25 Unknown History mg tablet insulin pump cart,auto,BT,G6/7 #10 ea 04/19/25 Unknown Rx (Omnipod 5 G6-G7 Pods (Gen 5) subcutaneous cartridge) ziprasidone HCl 20 mg capsule 20 mg PO BID 04/19/25 Unknown History dicyclomine 10 mg capsule 10 mg PO TID for abdominal pain 06/01/25 Unknown Rx #90 caps sucralfate 1 gram tablet (Carafate) 1 g PO TID 2 weeks #42 tabs 06/13/25 Unknown Rx Allergy/AdvReac Type Severity Reaction Status Date / Time No Known Allergies Allergy Verified 06/13/25 22:32 Family History Mother Diabetes Sister Diabetes Father CVA (cerebral vascular accident) Myocardial infarction Surgical History H/O esophagogastroduodenoscopy No history of previous surgery Social History household members: spouse Smoking Status: Current some day smoker tobacco type: cigarettes how long ago did patient quit smoking: Quit 05/2024, prior smoked ~ 1/2 ppd. second hand exposure: No alcohol intake: former substance use type: marijuana ROS ROS ED ROS Narrative See HPI EXAM Physical Exam Narrative Exam Narrative: Vital signs: Reviewed General: Alert and oriented. Lying in bed moaning in pain. Actively vomiting on evaluation. HEENT: Head is normocephalic and atraumatic, sinuses nontender, pupils equal round and reactive. Nares are patent. Oropharynx and throat exams normal. Neck: Supple without lymphadenopathy nontender Cardiovascular: Mild tachycardia, regular rhythm, no murmurs. No rubs or gallops. Normal S1 and S2 Respiratory: Clear to auscultation bilaterally. No wheezes, rales, rhonchi Abdominal: Soft with generalized abdominal tenderness. Normal bowel sounds. No guarding or rebound. Extremities: No tenderness. No bruising. Normal range of motion. Normal sensation. Skin: No rash or redness. Neurological: Cranial nerves II through XII are grossly intact. Normal strength and sensation. Normal cerebellar function The rest of the physical exam is unremarkable Const Vital Signs: 06/13/25 16:25 06/13/25 18:40 06/13/25 19:00 Temperature 98 F Temperature Source Temporal Pulse Rate 103 H 86 98 Respiratory Rate 29 H 15 16 Blood Pressure 157/108 H 185/98 H 168/88 H Blood Pressure Mean 124 127 114 Pulse Ox 100 98 100 Oxygen Delivery Method Room Air Room Air 06/13/25 19:40 Temperature 98 F Temperature Source Pulse Rate 99 Respiratory Rate 18 Blood Pressure 162/89 H Blood Pressure Mean 113 Pulse Ox 100 Oxygen Delivery Method MDM MDM MDM Narrative Medical decision making narrative: Patient is a 39-year-old male presenting to emergency department for abdominal pain, nausea and vomiting. Patient was seen and examined. Vitals are stable. Patient appears uncomfortable upon evaluation. Moaning in pain, actively vomiting on evaluation. His chart was reviewed from yesterday when they had obtained CT abdomen pelvis with labs. He was given fluids, antiemetic and analgesia and his symptoms improved. Results of CT from yesterday were reviewed by myself today and show no acute intra-abdominal pathology. Patient given morphine, Reglan and fluids. Labs were obtained to evaluate for dehydration or DKA given his history of type 1 DM. Labs with mildly elevated leukocytosis of 13 which appears improved from yesterday, this is likely due to his vomiting. Normal hemoglobin. CMP with elevated glucose of 202 however normal anion gap and bicarb. No evidence of DKA. No evidence of dehydration based off labs. Lipase within normal limits. Hepatic levels within normal limits. Kidney levels within normal limits. Patient was reevaluated and is still in significant pain he reports. For this reason his CT abdomen pelvis was repeated. He was given additional analgesia. CT shows possible cystitis with no other abnormalities. Patient declines any dysuria, hematuria or any urinary symptoms. Do not think it is necessary to obtain urine testing before the patient is discharged given he is pain-free and able to tolerate p.o. at this time. I did speak with the patient's GI doctor, Dr. Argueta, who recommended Carafate 1 g 3 times a day for the next 2 weeks. This was prescribed. Patient was discharged home in stable condition with strict return precautions if he develops any new or worsening symptoms. Patient discharged from the Emergency Department. I do not feel that the patient's evaluation reveals any acute reason for admission at this time. I instructed them to either follow-up with their primary care physician or promptly return to the Emergency Department for reevaluation should symptoms worsen or new symptoms develop. I explained what symptoms would indicate the need to return to the emergency department. Shared decision making was used. The patient voiced understanding of the treatment plan and is agreeable with it. History & Record Review Additional record(s) reviewed:: Prior ED visit Lab Data Attestation: I reviewed the patient's lab results. Labs: Laboratory Results - last 24 hr 06/13/25 16:40 WBC 13.0 H RBC 4.55 L Hgb 13.1 Hct 39.7 L MCV 87.3 MCH 28.8 MCHC 33.0 RDW Std Deviation 43.0 RDW Coeff of [place] 13.5 Plt Count 414 MPV 9.8 Immature Gran % (Auto) 0.200 Neut % (Auto) 67.8 Lymph % (Auto) 21.6 [place] % (Auto) 8.9 Eos % (Auto) 1.2 Baso % (Auto) 0.3 Absolute Neuts (auto) 8.8 H Absolute Lymphs (auto) 2.81 Nucleated RBC % 0 Sodium 135 Potassium 4.3 Chloride 100 Carbon Dioxide 21.6 Anion Gap 14 BUN 19 Creatinine 0.97 Estim Creat Clear Calc 92.27 Est GFR (MDRD) Non-Af 102 BUN/Creatinine Ratio 19.2 Glucose 202 H Calcium 9.3 Total Bilirubin 0.36 AST 31 ALT 9 Alkaline Phosphatase 127 Total Protein 8.4 Albumin 4.6 Globulin 3.8 Albumin/Globulin Ratio 1.2 Lipase 25 Radiography Diagnostic Testing: Clinical Impression(s) from Imaging Studies Abdomen/Pelvis CT 06/13/25 18:11 IMPRESSION: Concentric wall thickening of the urinary bladder. In a patient of this age this may represent cystitis. Correlate with urinalysis. Reading Location: [facility] Discharge Plan Triage Chief Complaint: Abd Pain ED Provider: Garima Antonio Dx/Rx/DC Orders Clinical Impression: Gastroparesis, Abdominal pain, Increased nausea and vomiting Instructions: Abdominal Pain Prescriptions: New sucralfate [Carafate] 1 gram tablet 1 g PO TID 14 Days Qty: 42 0RF No Action gabapentin 100 mg capsule 200 mg PO TID (DME) Omnipod 5 G6 Intro Kit (Gen 5) Cartridge See Rx Instructions .Route Qty: 1 0RF Rx Instructions: As directed insulin lispro [Humalog U-100 Insulin] 100 unit/mL solution 50 unit continuous subcutaneous infusion .continuous Qty: 45 1RF Rx Instructions: Use subcutaneous insulin as you had been previously less otherwise instructed pantoprazole 40 mg tablet,delayed release (DR/EC) 40 mg PO BID Qty: 60 2RF buspirone 10 mg tablet 10 mg PO BID rosuvastatin 5 mg tablet 5 mg PO QHS dextroamphetamine-amphetamine 10 mg tablet 1 tab PO BID amitriptyline 50 mg tablet 50 mg PO QHS ziprasidone HCl 20 mg capsule 20 mg PO BID (DME) Omnipod 5 G6-G7 Pods (Gen 5) Cartridge See Rx Instructions .Route Qty: 10 5RF Rx Instructions: 1 pod q 72 hours (DME) Dexcom G7 Sensor Device See Rx Instructions .Route Qty: 3 5RF Rx Instructions: 1 sensor q 10 days (DME) pen needle, diabetic [BD Ultra-Fine Lizzeth Pen Needle] 32 gauge x 5/32 needle See Rx Instructions .Route Qty: 100 5RF Rx Instructions: 4x/day lisinopril 20 mg tablet 20 mg PO DAILY Qty: 30 6RF metoclopramide HCl [Reglan] 5 mg tablet 5 mg PO Q8H PRN PRN (Reason: nausea and vomiting) Qty: 90 2RF dicyclomine 10 mg capsule 10 mg PO TID Qty: 90 0RF Primary Care Provider: Heena Barbosa Referrals: Jaycob Argueta DO [Med Staff - Active Staff] - 1-2 Days if not improving Heena Barbosa, ENGINEERING SECRETARY-C [Primary Care Provider] - Activity Restrictions/Additional Instructions: Please take the Carafate 1 g 3 times a day for [address] Zaldivar office and follow-up as soon as possible. Return to the ED with any new or worsening symptoms. Your evaluation in the Emergency Department did not reveal any acute reason for admission. However, I want to emphasize that you may be early in the course of a disease process or illness even if it is not present. For this reason you should follow-up within 24 hours for reevaluation with either your primary care physician or if necessary back here in the Emergency Department. You should return to the Emergency Department immediately if your symptoms worsen or new symptoms develop. Print Language: Armenian Disposition Disposition: Home, Self Care Discharge Date/Time: 06/13/25 19:46
[2025-06-13 19:00] VITALS: BP 168/88; PULSE 98; RESP 16; O2SAT 100
[2025-06-13 19:40] VITALS: BP 162/89; PULSE 99; RESP 18; TEMP 36.6; O2SAT 100
== END 2025-06-13 19:46 | disposition home or self-care (01) ==
PROVIDERS: Emergency Provider Student in an Organized Health Care Education/Training Program; PCP Nurse Practitioner Family; Visit Provider Student in an Organized Health Care Education/Training Program
DX: K31.84 Gastroparesis (principal); F20.9 Schizophrenia, unspecified; F31.9 Bipolar disorder, unspecified; E10.43 Type 1 diabetes mellitus with diabetic autonomic (poly)neuropathy; Z79.4 Long term (current) use of insulin; R10.9 Unspecified abdominal pain; E78.5 Hyperlipidemia, unspecified; I10 Essential (primary) hypertension; F17.210 Nicotine dependence, cigarettes, uncomplicated; Z79.899 Other long term (current) drug therapy
CPT/HCPCS: 74177; 80053; 83690; 85025; 96361; 96374; 96375; 99282; Q9967; A4216

== ENCOUNTER 2025-06-13 22:31 | Observation (INO) | payer MEDICARE, MEDICAID, SELFPAY ==
[2025-06-13 22:32] VITALS: BP 182/109; PULSE 103; RESP 24; TEMP 36.8; O2SAT 100; BMI 26.9
--- NOTE | 2025-06-13 23:06 | EX.ED.DYSGE1 ---
HPI History of Present Illness Chief Complaint: Abd Pain Narrative Narrative: Patient is a 39-year-old male presenting to the emergency department for abdominal pain. Patient has a past medical history of gastroparesis, gastric ulcer, H. pylori, GERD, type 1 diabetes. Patient was just here a few hours ago for the same complaint and had an improvement of his symptoms. States that he got home and developed the pain again. States that his similar to his pain prior. Endorses nausea with nonbloody vomiting. Denies fever or chills. Denies chest pain or shortness of breath. [facility] Medical History Gastroparesis Former tobacco use Cannabis use disorder Hypertension Schizophrenia Anxiety Depression Migraines Type 2 diabetes mellitus with hyperglycemia Schizo-affective schizophrenia Bipolar 1 disorder Diabetes mellitus Home Medications ?Medication ?Instructions ?Recorded ?Last Taken ?Type pen needle, diabetic 32 gauge x #100 ea 03/29/24 Unknown Rx /32 (BD Ultra-Fine Lizzeth Pen Needle) lisinopril 20 mg tablet 20 mg PO DAILY bp #30 tabs 05/01/24 Unknown Rx gabapentin 100 mg capsule 200 mg PO TID pain 06/06/24 Unknown History insulin pump cartridge,automated #1 ea 07/05/24 Unknown Rx dose,BT with controller subcutaneous (Omnipod 5 G6 Intro Kit (Gen 5) subcutaneous cartridge with controller) pantoprazole 40 mg tablet,delayed 40 mg PO BID #60 tabs 08/15/24 Unknown Rx release insulin lispro 100 unit/mL 50 unit (0.5 mL) continuous 11/22/24 Unknown Rx subcutaneous solution (Humalog subcutaneous infusion .continuous U-100 Insulin) #45 mL buspirone 10 mg tablet 10 mg PO BID 01/18/25 Unknown History rosuvastatin 5 mg tablet 5 mg PO QHS 01/18/25 Unknown History metoclopramide HCl 5 mg tablet 5 mg PO Q8H PRN PRN nausea and 02/22/25 Unknown Rx (Reglan) vomiting #90 tabs amitriptyline 50 mg tablet 50 mg PO QHS 04/19/25 Unknown History blood-glucose sensor (Dexcom G7 #3 ea 04/19/25 Unknown Rx Sensor device) dextroamphetamine-amphetamine 10 1 tab PO BID 04/19/25 Unknown History mg tablet insulin pump cart,auto,BT,G6/7 #10 ea 04/19/25 Unknown Rx (Omnipod 5 G6-G7 Pods (Gen 5) subcutaneous cartridge) ziprasidone HCl 20 mg capsule 20 mg PO BID 04/19/25 Unknown History dicyclomine 10 mg capsule 10 mg PO TID for abdominal pain 06/01/25 Unknown Rx #90 caps sucralfate 1 gram tablet (Carafate) 1 g PO TID 2 weeks #42 tabs 06/13/25 Unknown Rx Allergy/AdvReac Type Severity Reaction Status Date / Time No Known Allergies Allergy Verified 06/13/25 22:32 Family History Mother Diabetes Sister Diabetes Father CVA (cerebral vascular accident) Myocardial infarction Surgical History H/O esophagogastroduodenoscopy No history of previous surgery Social History household members: spouse Smoking Status: Current some day smoker tobacco type: cigarettes how long ago did patient quit smoking: Quit 05/2024, prior smoked ~ 1/2 ppd. second hand exposure: No alcohol intake: former substance use type: marijuana ROS ROS ED ROS Narrative Gen: Denies fever, weakness, fatigue HEENT: Denies pain, visual disturbances, ear problems, throat problems Cardiovascular: Denies chest pain, arrhythmia, murmur Respiratory: Denies shortness of breath, cough, hemoptysis, dyspnea on exertion GI: Endorses abdominal pain, nausea and vomiting. Denies hematemesis, jaundice, diarrhea, blood in stool Genitourinary: Denies difficult urination, pain with urination, blood in the urine Musculoskeletal: Denies extremity pain, muscular weakness, neck pain, back pain Skin: Denies easy bruising, redness, rash Neurological: Denies headache, dizziness, loss of consciousness Psychiatric: Denies depression, suicidal ideation, hallucination, delusions Endocrine: Denies temperature intolerance, polyuria, polydipsia EXAM Physical Exam Narrative Exam Narrative: Vital signs: Reviewed General: Alert and oriented. No acute distress HEENT: Head is normocephalic and atraumatic, sinuses nontender, pupils equal round and reactive. Nares are patent. Oropharynx and throat exams normal. Neck: Supple without lymphadenopathy nontender Cardiovascular: Regular rate and rhythm, no murmurs. No rubs or gallops. Normal S1 and S2 Respiratory: Clear to auscultation bilaterally. No wheezes, rales, rhonchi Abdominal: Soft and generalized tenderness to palpation. Normal bowel sounds. No guarding or rebound. Nonsurgical abdomen Extremities: No tenderness. No bruising. Normal range of motion. Normal sensation. Skin: No rash or redness. Neurological: Cranial nerves II through XII are grossly intact. Normal strength and sensation. Normal cerebellar function The rest of the physical exam is unremarkable Const Vital Signs: 06/13/25 22:32 06/14/25 00:07 Temperature 98.3 F 98.0 F Temperature Source Oral Oral Pulse Rate 103 H 101 H Respiratory Rate 24 H 16 Blood Pressure 182/109 H 152/93 H Blood Pressure Mean 133 112 Pulse Ox 100 100 Oxygen Delivery Method Room Air Room Air MDM MDM MDM Narrative Medical decision making narrative: Patient is a 39-year-old male presenting to emergency department for abdominal pain. Patient was seen and examined. Patient's mildly tachycardic and hypertensive on arrival likely due to pain. Patient was just here a few hours ago and had a CT abdomen pelvis done that was unremarkable as well as lab work that was unremarkable other than the hyperglycemia of 202. Patient had complete resolution of his symptoms after the medications given at the prior visit. Patient states that the pain is similar, no new symptoms to suggest additional pathology at this time. Patient given IV Pepcid and haldol for his symptoms. I discussed with the patient that given this is his third visit in 2 days he will likely require admission for intractable abdominal pain, nausea and vomiting. He had improvement of his symptoms after haldol. He was agreeable with admission, admitted to hospitalist Dr. Hollins for further management. Suspect gastritis, PUD, possible hyperemesis cannabis History & Record Review Discussion w/independent historian: Patient Additional record(s) reviewed:: Prior ED visit Discharge Plan Triage Chief Complaint: Abd Pain ED Provider: Garima Antonio Dx/Rx/DC Orders Prescriptions: No Action gabapentin 100 mg capsule 200 mg PO TID (DME) Omnipod 5 G6 Intro Kit (Gen 5) Cartridge See Rx Instructions .Route Qty: 1 0RF Rx Instructions: As directed insulin lispro [Humalog U-100 Insulin] 100 unit/mL solution 50 unit continuous subcutaneous infusion .continuous Qty: 45 1RF Rx Instructions: Use subcutaneous insulin as you had been previously less otherwise instructed pantoprazole 40 mg tablet,delayed release (DR/EC) 40 mg PO BID Qty: 60 2RF buspirone 10 mg tablet 10 mg PO BID rosuvastatin 5 mg tablet 5 mg PO QHS dextroamphetamine-amphetamine 10 mg tablet 1 tab PO BID amitriptyline 50 mg tablet 50 mg PO QHS ziprasidone HCl 20 mg capsule 20 mg PO BID (DME) Omnipod 5 G6-G7 Pods (Gen 5) Cartridge See Rx Instructions .Route Qty: 10 5RF Rx Instructions: 1 pod q 72 hours (DME) Dexcom G7 Sensor Device See Rx Instructions .Route Qty: 3 5RF Rx Instructions: 1 sensor q 10 days sucralfate [Carafate] 1 gram tablet 1 g PO TID 14 Days Qty: 42 0RF (DME) pen needle, diabetic [BD Ultra-Fine Lizzeth Pen Needle] 32 gauge x 5/32 needle See Rx Instructions .Route Qty: 100 5RF Rx Instructions: 4x/day lisinopril 20 mg tablet 20 mg PO DAILY Qty: 30 6RF metoclopramide HCl [Reglan] 5 mg tablet 5 mg PO Q8H PRN PRN (Reason: nausea and vomiting) Qty: 90 2RF dicyclomine 10 mg capsule 10 mg PO TID Qty: 90 0RF Primary Care Provider: eHena Barbosa Referrals: Heena Barbosa, COMMUNITY LIAISON-C [Primary Care Provider] - Print Language: Icelandic
--- OUTSIDE RECORDS SUMMARY | 2025-06-13 23:21 | XMS RPT_ITS | CCD ---
Author Organization [facility] Care Team Providers Care Fire Suppression Captain Name Role Phone Chelsey MOTOR ELECTRICIAN.[place] PULIDO Primary Care Provider PHYSICIAN, NONE Primary Care Physician Unavailab marianne Camarena SENIOR INVESTMENT ANALYST-C [place] Primary Care Provider Dr. Connie Hermosillo Emergency Provider Dr. Troy Wagoner Admit Provider Dr. Troy Wagoner Other Provider [phone] Dr. Shantell Alcaraz Attending Provider Dr. Shantell Alcaraz Other Provider [phone] Ellie, Dr. Devries Attending Provider Chelsey MOTOR ELECTRICIAN.[place] PULIDO Primary Care Provider SARAVANAN SANCHEZ MD Attending Unavailable PHYSICIAN, NONE Primary Care Unavailable JESSICA KILLIAN DO Attending Unavailable PHYSICIAN, NONE Primary Care Unavailable PHYSICIAN, NONE Primary Care Unavailable SARAVANAN SANCHEZ MD Attending Unavailable BROOKLYN BOSTON DO Attending Unavailable PHYSICIAN, NONE Primary Care Unavailable Chelsey SENIOR INVESTMENT ANALYST-C, [place] Primary Care Provider Ludin Sanderson MD Attending Provider Ludin Sanderson MD Emergency Provider Christian DIAS-Queenie Marshall Attending Provider Chelsey SENIOR INVESTMENT ANALYST-CAustin Referring Provider Chelsey SENIOR INVESTMENT ANALYST-C, [place] Primary Care Provider Chelsey SENIOR INVESTMENT ANALYST-C, [place] Referring Provider Christian DIAS-Queenie Marshall Attending Provider Ludin Sanderson MD Attending Provider Ludin Sanderson MD Emergency Provider [phone] Mushtaq Hernandez MD Attending Provider [phone] Friend DODr. Devries Attending Provider KNOBLE, [place]UST[place] Attending Unavailable KNOBLE, [place]UST[place] Primary Care Unavailable KNOBLE, [place] Attending Unavailable KNOBLE, [place] Primary Care Unavailable KNOBLE, [place] Primary Care Unavailable PRAKASH FONTANA Attending Unavailable KNOBLE, [place] Primary Care Unavailable KNOBLE, [place] Attending Unavailable KNOBLE, [place] Primary Care Unavailable KNOBLE, [place] Attending Unavailable KNOBLE, [place] Primary Care Unavailable KNOBLE, [place] Attending Unavailable KNOBLE, AUTSIN Primary Care Unavailable KNOBLE, [place]UST[place] Referring Unavailable KNOBLE, [place] Primary Care Unavailable PRAKASH FONTANA Attending Unavailable KNOBLE, [place] Primary Care Unavailable KNOBLE, [place] Primary Care Unavailable KNOBLE, [place] Attending Unavailable KNOBLE, [place] Primary Care Unavailable KNOBLE, [place] Referring Unavailable KNOBLE, [place] Primary Care Unavailable KNOBLE, [place] Referring Unavailable KNOBLE, [place] Primary Care Unavailable Knoble SENIOR INVESTMENT ANALYST-C, [place] Primary Care Provider Chelsey SENIOR INVESTMENT ANALYST-C, [place] Referring Provider [phone] Christian SENIOR INVESTMENT ANALYST-CQueenie Attending Provider Mushtaq Hernandez Attending Unavailable Knoble, [...] Care Unavailable White, Brenda L Attending Unavailable Ptear, Victoria Attending Unavailable Mushtaq Hernandez Attending Unavailable [...] Hollins Admitting Unavailable Troy Wagoner Consulting Unavailable Dr. August Carroll DO Emergency Provider Paco IVERSON, Dr. Painting Emergency Provider Unavailab le Medications Current Medications Medication Drug Class(es) Dates [...] / dextroamphetamine sulfate 2.5 mg oral tablet (20 sources) Central Nervous System Stimulant Start: 04-19-2025 [...] complication, without long-term current use of insulin ([facility]) Use weekly 1 Each 0 10/22/2023 10/23/2023 Active Comment on above: Use weekly Blood-Glucose Meter (1 source) Start: 10-22-2023 End: 10-23-2023 Blood-Glucose Meter Indications: Type 2 diabetes mellitus without complication, without long-term current use of insulin ([facility]) Test One time a day. Insulin Dep? [...] 01/26/2025 01/27/2025 Active Blood-Glucose Meter,Continuous (DEXCOM G7 DIRECTOR OF BILLING) misc (1 source) Start: 10-22-2023 End: 10-22-2023 Blood-Glucose Meter,Continuous (DEXCOM G7 DIRECTOR OF BILLING) misc 1 Each one time only for [...] G7 Sensor) device Discontinued 0 .Route 3 5 April 06, 2024 12:00am July 16, 2024 6:23pm Diabetes mellitus Type 1 diabetes mellitus with hyperglycemia 1 sensor q 10 days Start: 04-06-2024 End: 07-16-2024 Blood-Glucose Sensor (Dexcom G7 Sensor) device Discontinued 0 .Route 3 April 06, 2024 12:00am July 16, 2024 6:23pm 1 sensor q 10 days busPIRone hydrochloride 10 mg oral tablet (16 sources) Start: 01-18-2025 take 1 tablet by [...] on above: Take 1 capsule by mo ut four times daily. Take 1 capsule by mo [facility] three times a day for 90 days. Insulin Glargine-Yfgn (1 source) Start: 01-29-2024 Insulin Glargine-Yfgn Active 15 UNIT SC AT BEDTIME January 29, 2024 12:00am Insulin Pump Cart,Auto,Bt,G6/7 (Omnipod 5 G6-G7 Pods (Gen 5)) cartridge (20 sources) Start: 04-19-2025 Insulin Pump Cart,Auto,Bt,G6/7 (Omnipod [...] Discontinued 0 .Route March 15, 2025 12:00am Deb 12th, 2025 1:29pm 1 pod q 72 hours [...] 5 G6 Intro Kit (Gen 5)) cartridge (8 sources) Start: 07-05-2024 Insulin Pump C art,Auto,Bt-Cntr [...] tablet Discontinued 10 mg PO DAILY 30 0 January 25, 2024 12:00am January 29, 2024 [...] bedtime. 90 tablet 1 05/16/2024 01/05/2025 Discontinued sucralfate 1000 mg oral tablet (20 sources) Aluminum Complex Start: 06-13-2025 take 1 tablet by mouth three times daily Sucralfate (Carafate) 1 gram tablet Active 1 g PO THREE TIMES A DAY 42 14 0 June 13, 2025 12:00am Start: 02-27-2025 End: 05-23-2025 take 1 tablet [...] 29, 2024 4:12pm January 31, 2025 6:53am traZODone hydrochloride 50 mg oral tablet (2 sources) Serotonin Reuptake Inhibitor Start: 02-05-2018 traZODone 50 mg oral tablet Dose : 50 mg = 1 tab(s), Oral, qHS, PRN Sleep / Insomnia, 0 Refill(s) Start Date: 02/05/18 Status: Ordered ziprasidone 20 mg oral capsule (15 sources) Atypical Antipsychotic Start: 04-19-2025 take 1 [...] / HYDROcodone bitartrate 5 mg oral tablet (11 sources) Opioid Agonist Start: 05-06-2020 End: 05-09-2020 [...] 2020 12:02am ARIPiprazole 5 mg oral tablet (11 sources) Atypical Antipsychotic Start: 03-01-2021 End: 01-25-2024 [...] spasms). bismuth subsalicylate 262 mg oral tablet (8 sources) Bismuth Start: 08-15-2024 End: 08-29-2024 take 1 tablet by mouth every twenty-four hours Bismuth Subsalicylate 262 mg tablet,chewable Discontinued 2 {tbl} PO .QID 112 14 0 August 15, 2024 12:00am August 28, 2024 12:00am August 29, 2024 12:08am diarrhea do not exceed 16 tabs per 24 hrs Blood-Glucose Meter,Continuous (Dexcom G7 Upper And Bottom Lacer Hand) misc (1 source) Start: 05-04-2024 End: 11-22-2024 Blood-Glucose Meter,Continuous (Dexcom G7 Upper And Bottom Lacer Hand) misc Discontinued 0 .Route 1 May 04, 2024 12:00am November 22, 2024 2:21pm As directed Blood-Glucose Sensor (Dexcom G6 Sensor) device (16 sources) Start: 08-03-2024 End: 11-22-2024 Blood-Glucose Sensor [...] Sensor (Freest yle Alicia 3 Sensor) device (8 sources) Start: 02-17-2024 End: 04-06-2024 Blood-Glucose Sensor [...] days Blood-Glucose Transmitter (Dexcom G6 Transmitter) device (16 sources) Start: 10-23-2024 End: 11-22-2024 Blood-Glucose Transmitter [...] 2024 8:54am 1 transmitter q 90 days Blood-Glucose,Upper And Bottom Lacer Hand,Cont (Dexcom G7 Upper And Bottom Lacer Hand) misc (7 sources) Start: 05-04-2024 End: 11-22-2024 Blood-Glucose,Upper And Bottom Lacer Hand,Cont (Dexcom G7 Upper And Bottom Lacer Hand) misc Discontinued 0 .Route 1 May 04, 2024 12:00am November 22, 2024 2:21pm Diabetes mellitus Type 1 diabetes mellitus with hyperglycemia As directed Start: 05-04-2024 End: 11-22-2024 Blood-Glucose,Upper And Bottom Lacer Hand,Cont (Dexcom G7 Upper And Bottom Lacer Hand) misc Discontinued 0 .Route 1 May 04, 2024 12:00am November 22, 2024 2:21pm As directed clindamycin 300 mg oral capsule (8 sources) Lincosamide Antibacterial Start: 02-06-2025 End: 04-19-2025 take 1 capsule by mouth every six hours Clindamycin Hcl (Cleocin Hcl) 300 mg capsule Discontinued 300 mg PO EVERY 6 HOURS 40 0 February 06, 2025 12:00am April 19, 2025 1:19pm Ergocalciferol (16 sources) Provitamin D2 Compound Start: 04-19-2025 End: 05-17-2025 Ergocalciferol (Vitamin D2) 1,250 mcg (50,000 unit) capsule Discontinued 1250 ug PO EVERY WEEK April 19, 2025 12:00am May 17, 2025 2:58pm Start: 04-19-2025 Ergocalciferol (Vitamin D2) 1,250 mcg (50,000 unit) capsule Active 1250 ug PO EVERY WEEK April 19, 2025 12:00am Start: 01-08-2025 take 1 capsule by mo [facility] every week ergocalciferol 50,000 unit capsule (VITAMIN [...] mg 24 hr extended release oral tablet (18 sources) Sulfonylurea Start: 12-28-2023 End: 01-29-2024 take [...] Glargine-Yfgn 100 unit/mL (3 mL) Insulin Pen (20 sources) Start: 08-01-2024 End: 11-22-2024 Insulin Glargine-Yfgn 100 unit/mL (3 mL) Insulin Pen Discontinued 16 U SC AT BEDTIME 0 0 August 01, 2024 12:00am November 22, [...] Discontinued 0 .Route 10 July 05, 2024 12:00am July 05, 2024 10:44am Diabetes mellitus Type 1 diabetes mellitus with hyperglycemia 1 pod q 3 days Start: 07-05-2024 End: 07-05-2024 Insulin Pump Cart,Automated, Bt (Omnipod 5 G6 Pods (Gen 5)) cartridge Discontinued 0 .Route July 05, 2024 12:00am July 05, 2024 10:44am 1 pod q 3 days 24 hr metFORMIN hydrochloride 500 mg extended release oral tablet (18 sources) Biguanide Start: 03-01-2021 End: 01-25-2024 take 1 tablet by mouth twice daily Metformin 500 MG tablet extended release 24 hr Discontinued 500 mg PO TWICE A DAY March 01, 2021 12:00am January 25, 2024 10:23pm Start: 02-05-2018 End: 10-15-2023 metFORMIN 500 mg oral tablet , extended release Dose : 1,000 mg = 2 tab(s), Oral, BID, # 360 tab(s), 1 Refill(s), Pharmacy: [facility], DM2, uncontrolled. A1c 14.9% Start Date: [...] 2024 5:02pm metroNIDAZOLE 250 mg oral tablet (8 sources) Nitroimidazole Antimicrobial Start: 08-15-2024 End: 08-29-2024 [...] FROM LIGHT pioglitazone 15 mg oral tablet (13 sources) Peroxisome Proliferator Receptor alpha Agonist, Peroxisome Proliferator Receptor gamma Agonist, Thiazolidinedione Start: 12-28-2023 End: 01-29-2024 take 1 tablet by mouth once daily Pioglitazone 15 mg tablet Discontinued 15 mg PO DAILY January 27, 2024 12:00am January 29, 2024 12:36pm BLOOD SUGARS Comment on above: Take 1 tablet by moises once daily. prochlorperazine 10 mg oral tablet (8 sources) Phenothiazine Start: 07-28-2024 End: 08-15-2024 take [...] 2024 12:00am August 15, 2024 1:46pm nausea tetracycline hydrochloride 500 mg oral capsule (8 sources) Tetracycline-class Antimicrobial Start: 08-15-2024 End: 08-29-2024 [...] THE EYE varenicline 1 mg oral tablet (16 sources) Partial Cholinergic Nicotinic Agonist Start: 01-27-2024 [...] Active Problems Problem Classification Problem Date Documented Da te Episodic/Chronic Abdominal pain (20 sources) Acute abdominal pain; Translations: [Generalized abdominal pain] Onset: 01-25-2024 Episodic Acute and unspecified renal failure (11 sources) Prerenal azotemia; Translations: [Unspecified kidney failure] 01-25-2024 Chronic Attention-deficit, conduct, and disruptive behavior disorders (4 sources) Attention deficit hyperactivity disorder, predominantly hyperactive impulsive type; Translations: [Attention-deficit hyperactivity disorder, predominantly hyperactive type] 11-27-2024 Chronic Attention-deficit, conduct, and disruptive behavior disorders (1 source) Attention-deficit hyperactivity disorder, predominantly hyperactive type; Translations: [ADHD (attention deficit hyperactivity disorder), predominantly hyperactive impulsive type] Onset: Chronic Blindness and vision defects (2 sources) Bilateral myopia of eyes; Translations: [Myopia, bilateral] 10-27-2024 Episodic Cataract (2 sources) Nuclear sclerosis; Translations: [Age-related nuclear cataract, bilateral] 10-27-2024 Chronic Diabetes mellitus with complications (20 sources) Hyperglycemia due to type 2 diabetes mellitus; Translations: [Type 2 diabetes mellitus with hyperglycemia] Onset: 4 01-25-2024 Chronic Diabetes mellitus without complication (20 sources) Latent autoimmune diabetes mellitus in adult; Translations: [Other specified diabetes mellitus without complications] Onset: 1 10-15-2023 Chronic Diabetes mellitus without complication (20 sources) Hyperglycemia; Translations: [Hyperglycemia, unspecified] Onset: Episodic Disorders of lipid metabolism (20 sources) Raised low density lipoprotein cholesterol; Translations: [Pure hypercholesterolemia, unspecified] Onset: 5 05-16-2024 Chronic Disorders of teeth and jaw (20 sources) Dental abscess; Translations: [Periapical abscess without sinus] Onset: 5 05-07-2020 Episodic Esophageal disorders (13 sources) Gastroesophageal reflux disease; Translations: [Gastro-esophageal reflux disease without esophagitis] Onset: 4 06-06-2024 Chronic Essential hypertension (20 sources) Hypertensive disorder; Translations: [Essential (primary) hypertension] Onset: 4 01-25-2024 Chronic Fluid and electrolyte disorders (20 sources) Dehydration; Translations: [Dehydration] Onset: 4 01-25-2024 Episodic Gastroduodenal ulcer (except hemorrhage) (9 sources) Gastric ulcer; Translations: [Gastric ulcer, unspecified as acute or chronic, without hemorrhage or perforation] Onset: 4 07-31-2024 Chronic Gastrointestinal hemorrhage (11 sources) Hematemesis; Translations: [Hematemesis] Onset: 4 08-07-2024 Episodic Genitourinary symptoms and ill-defined conditions (9 sources) Proteinuria; Translations: [Proteinuria, unspecified] Onset: 4 Episodic Intestinal infection (13 sources) Infection caused by Helicobacter pylori; Translations: [Other specified bacterial intestinal infections] Onset: 4 03-22-2024 Episodic Mood disorders (17 sources) Bipolar disorder; Translations: [Bipolar disorder, unspecified] 10-15-2023 Chronic Nausea and vomiting (20 sources) Vomiting; Translations: [Vomiting, unspecified] Onset: 4 Episodic Nutritional deficiencies (2 sources) Vitamin D deficiency; Translations: [Vitamin D deficiency, unspecified] Onset: 5 01-08-2025 Chronic Other aftercare (1 source) Other intermediate manager (current) drug therapy; Translations: [Medication management] Onset: 5 Episodic Other circulatory disease (1 source) Abnormal peripheral pulse; Translations: [Other specified symptoms and signs involving the circulatory and respiratory systems] 02-08-2024 Episodic Other congenital anomalies (1 source) Porokeratosis; Translations: [Other specified congenital malformations of skin] 02-08-2024 Chronic Other disorders of stomach and duodenum (20 sources) Gastroparesis syndrome; Translations: [Gastroparesis] 08-06-2024 Episodic Other liver diseases (13 sources) Alkaline phosphatase raised; Translations: [Abnormal levels of other serum enzymes] 01-18-2025 Episodic Other liver diseases (13 sources) Aspartate aminotransferase serum level raised; Translations: [High aspartate aminotransferase level] 01-18-2025 Episodic Other lower respiratory disease (2 sources) Chronic cough; Translations: [Chronic cough] 10-15-2023 Episodic Other nutritional; endocrine; and metabolic disorders (11 sources) Ketosis; Translations: [Other specified metabolic disorders] 01-25-2024 Chronic Other skin disorders (1 source) Foot callus; Translations: [Corns and callosities] 10-15-2023 Episodic Other skin disorders (8 sources) Facial swelling ; Translations: [Localized swelling, mass and lump, head] 02-06-2025 Episodic Residual codes; unclassified (1 source) Procedure not done; Translations: [Procedure and treatment not carried out, unspecified reason] 10-18-2024 Episodic Residual codes; unclassified (8 sources) Normal body mass index; Translations: [Other specified conditions influencing health status] 04-06-2024 Episodic Screening and history of mental health and substance abuse codes (2 sources) Encounter for screening for depression; Translations: [Encounter for screening examination for other mental health and behavioral disorders] Onset: Episodic Sprains and strains (11 sources) Lumbosacral strain; Translations: [Strain of muscle, fascia and tendon of lower back, initial encounter] 08-21-2015 Episodic Substance-related disorders (11 sources) Cannabis hyperemesis syndrome co-occurrent and due to cannabis abuse; Translations: [Cannabis abuse with other cannabis-induced disorder] 01-25-2024 Chronic Unclassified (11 sources) No history of clinical finding in subject; Translations: [No significant past medical history] 05-06-2020 Urinary tract infections (11 sources) Urethritis; Translations: [Other urethritis] 02-22-2015 Episodic Past or Other Problems Problem Classification Problem Date Documented Da te Episodic/Chronic Gastroduodenal ulcer (except hemorrhage) (2 sources) Acute gastric ulcer without hemorrhage AND without perforation; Translations: [Acute gastric ulcer without hemorrhage or perforation] Onset: 08-07-2024 08-07-2024 Episodic Immunizations and screening for infectious disease (14 sources) Patient encounter status; Translations: [Encounter for immunization] Onset: 08-07-2024 10-15-2023 Episodic Other disorders of stomach and duodenum [...] and lump, head] Onset: 02-12-2025 Episodic Unclassified (11 sources) Paronychia of third finger of right hand; Translations: [Paronychia of third finger of right hand] 05-06-2020 Results Test Name Value Interpretation Reference Range Facility Absolute lymphocyte countOrd ered By: Garima Antonio on 06-13-2025 Lymphocytes Auto (Unsp spec) [#/Vol] 2.81 10*3/uL 0.83-4.51 [facility] Absolute neutrophil countOrd ered By: Garima Antonio on 06-13-2025 Neutrophils (Bld) [#/Vol] 8.8 10*3/uL High 2.0-7.7 [facility] Anion gap in Serum or Plasma Ordered By: Garima Antonio on 06-13-2025 Anion gap [Moles/Vol] 14 mmol/L 5-15 [facility] Automated lymphocyte count a s percentage of total leukocytesOrdered By: Garima Antonio on 06-13-2025 Lymphocytes/100 WBC Auto (Unsp spec) 21.6 % 19-41 [facility] BUN/creatinine ratioOrdered By: Garima Antonio on 06-13-2025 Urea nitrogen/Creatinine [Mass ratio] 19.2 mg/mg 10-20 [facility] Basophil percentageOrdered B y: Garima Antonio on 06-13-2025 Basophils/100 WBC (Bld) 0.3 % 0-1 [facility] Bilirubin, totalOrdered By: Garima Antonio on 06-13-2025 Bilirubin [Mass/Vol] 0.36 mg/dL 0.00-1.[address] [facility] CO2 (BldV) [Moles/Vol]Ordere d By: Auugst Carroll on 06-13-2025 CO2 [Moles/Vol] 26 mmol/L 23-33 [facility] Carbon dioxide, total [Moles /volume] in Central venous bloodOrdered By: Garima Antonio on 06-13-2025 CO2 [Moles/Vol] 21.6 mmol/L 21.0-32.0 [facility] Chloride assayOrdered By: Rudolph Antonio on 06-13-2025 Chloride [Moles/Vol] 100 mmol/L 98-[address] [facility] Eosinophil percentageOrdered By: Garima Antonio on 06-13-2025 Eosinophils/100 WBC (Bld) 1.2 % 0-5 [facility] Erythrocyte distribution wid th ratioOrdered By: Garima Antonio on 06-13-2025 Erythrocyte distribution width (RBC) [Ratio] 13.5 % 11.6-14.6 [facility] Erythrocyte distribution wid th standard deviationOrdered By: Garima Antonio on 06-13-2025 Erythrocyte distribution width (RBC) [Ratio] 43.0 fl 35.1-43.9 [facility] Glomerular filtration rate ( GFR) estimation/1.73 sq m using serum, plasma, or whole bOrdered By: Garima Antonio on 06-13-2025 GFR/1.73 sq M.predicted among non-blacks MDRD (S/P/Bld) [Vol rate/Area] 102 mL/min/{1.73_m2} >60 [facility] Comment on above: mL/min/1.73m2 CKD-EP I Creatinine Equation (2020) Hematocrit Auto (Bld) [Volum e fraction]Ordered By: Garima Antonio on 06-13-2025 Hematocrit (Bld) [Volume fraction] 39.7 % Low 40-54 [facility] Hemoglobin measurementOrdere d By: Garima Antonio on 06-13-2025 Hemoglobin (Bld) [Mass/Vol] 13.1 g/dL 13.0-16.5 [facility] Immature granulocytes/100 WB C Auto (Bld)Ordered By: Garima Antonio on 06-13-2025 Immature granulocytes/100 WBC (Bld) 0.200 % 0.0-0.9 [facility] Comment on above: IG% - Immature Granu locytes (promyelocytes, myelocytes and metamyelocytes) > 1% indicates that a LEFT SHIFT is Present. Laboratory - Chemistry and C hemistry - challengeOrdered By: Garima Antonio on 06-13-2025 AST [Catalytic activity/Vol] 31 U/L <38 [facility] Lipase measurementOrdered By : Garima Antonio on 06-13-2025 Lipase [Catalytic activity/Vol] 25 U/L 13-75 [facility] Comment on above: Please note:LIPASE r evised reference range effective 23. New Lipase methodology. Expected to produce lower values than the previous assay method. NEW Reference Range: 13 - 75 U/L MCV (mean corpuscular volume ) determinationOrdered By: Garima Antonio on 08-06-2025 MCV (RBC) [Entitic vol] 87.3 fL 80-94 [facility] Mean corpuscular hemoglobin (MCH) determinationOrdered By: Garima Antonio on 06-13-2025 MCH (RBC) [Entitic mass] 28.8 pg 27.0-32.0 [facility] Mean corpuscular hemoglobin concentration (MCHC) determinationOrdered By: Garima Antonio on 06-13-2025 MCHC (RBC) [Mass/Vol] 33.0 g/dL 32-36 [facility] Mean platelet volume determi nationOrdered By: Garima Antonio on 06-13-2025 Platelet mean volume (Bld) [Entitic vol] 9.8 fL 6.2-12.0 [facility] Monocyte percentageOrdered B y: Garima Antonio on 06-13-2025 Monocytes/100 WBC (Bld) 8.9 % 0-10 [facility] Neutrophil percentageOrdered By: Garima Antonio on 06-13-2025 Neutrophils/100 WBC (Bld) 67.8 % 47-70 [facility] No Panel InformationOrdered By: August Carroll on 06-13-2025 Blood Gas Sample Site Not entered [facility] Blood Gas Specimen Type TERA [facility] Oxygen Delivery Device Room Air [facility] Nucleated red blood cell per centageOrdered By: Garima Antonio on 06-13-2025 Nucleated RBC/100 WBC (Bld) [Ratio] 0 % 0-5 [facility] Platelet countOrdered By: Rudolph Antonio on 06-13-2025 Platelets (Bld) [#/Vol] 414 10*3/uL 150-450 [facility] Potassium measurement (mass/ volume)Ordered By: Garima Antonio on 06-13-2025 Potassium (Unsp spec) [Mass/Vol] 4.3 mmol/L 3.3-5.1 [facility] RBC Auto (Bld) [#/Vol]Ordere d By: Garima Antonio on 06-13-2025 RBC (Bld) [#/Vol] 4.55 10*6/uL Low 4.6-6.2 [facility] Serum creatinine measurement (mass/volume)Ordered By: Garima Antonio on 06-13-2025 Creatinine [Mass/Vol] 0.97 mg/dL 0.70-1.20 [facility] Serum globulin measurementOr dered By: Garima Antonio on 06-13-2025 Globulin (S) [Mass/Vol] 3.8 g/dL 2.2-4.2 [facility] Serum glucose measurement (m ass/volume)Ordered By: Garima Antonio on 06-13-2025 Glucose [Mass/Vol] 202 mg/dL High 70-99 [facility] Serum or plasma alanine escamilla otransferase (ALT) measurementOrdered By: Garima Antonio on 06-13-2025 ALT [Catalytic activity/Vol] 9 U/L <47 [facility] Serum or plasma albumin luis carlos urement (mass/volume)Ordered By: Garima Antonio on 06-13-2025 Albumin [Mass/Vol] 4.6 g/dL 3.5-5.0 [facility] Serum or plasma albumin/glob ulin mass ratioOrdered By: Garima Antonio on 06-13-2025 Albumin/Globulin [Mass ratio] 1.2 {ratio} 0.9-2.4 [facility] Serum or plasma alkaline tessy sphatase measurementOrdered By: Garima Antonio on 06-13-2025 ALP [Catalytic activity/Vol] 127 U/L 40-129 [facility] Serum or plasma calcium luis carlos urement (mass/volume)Ordered By: Garima Antonio on 06-13-2025 Calcium [Mass/Vol] 9.3 mg/dL 7.6-11.0 [facility] Serum or plasma urea nitroge n measurement (mass/volume)Ordered By: Garima Antonio on 06-13-2025 Urea nitrogen [Mass/Vol] 19 mg/dL 4-19 [facility] Sodium levelOrdered By: Marco a Paco on 06-13-2025 Sodium [Moles/Vol] 135 mmol/L 133-145 [facility] Total proteinOrdered By: Meg Antonio on 06-13-2025 Protein [Mass/Vol] 8.4 g/dL 5.9-8.4 [facility] Venous blood base excess sanjana surementOrdered By: August Carroll on 06-13-2025 Base excess Calc (BldV) [Moles/Vol] 0 mmol/L -1.0-3.5 [facility] Venous blood bicarbonate sanjana surementOrdered By: August Carroll on 06-13-2025 HCO3 (Bld) [Moles/Vol] 25 mmol/L 22-26 [facility] Venous blood oxygen saturati on measurementOrdered By: August Carroll on 06-13-2025 Oxygen saturation in Blood 89 % High 50-70 [facility] Venous blood pH measurementO rdered By: August Carroll on 06-13-2025 pH (BldV) 7.43 [pH] High 7.32-7.42 [facility] Venous blood partial pressur e of carbon dioxide measurementOrdered By: August Carroll on 06-13-2025 CO2 (BldV) [Partial pressure] 37.4 mm[Hg] Low 41-51 [facility] Venous blood partial pressur e of oxygen measurementOrdered By: August Oakley on 06-13-2025 Oxygen (BldV) [Partial pressure] 55 mm[Hg] High 25-40 [facility] White blood cell (WBC) count Ordered By: Garima Antonio on 06-13-2025 WBC (Bld) [#/Vol] 13.0 10*3/uL High 4.4-11.0 [facility] Absolute lymphocyte countOrd ered By: August Carroll on 06-12-2025 Lymphocytes Auto (Unsp spec) [#/Vol] 1.87 10*3/uL 0.83-4.51 [facility] Absolute neutrophil countOrd ered By: August Carroll on 06-12-2025 Neutrophils (Bld) [#/Vol] 13.1 10*3/uL High 2.0-7.7 [facility] Amphetamine detection with 1 000 ng/mL as cutoffOrdered By: August Carroll on 06-12-2025 Amphetamines Screen method >1000 ng/mL Ql (U) Negative < 200 ng/mL [facility] Anion gap in Serum or Plasma Ordered By: August Carroll on 06-12-2025 Anion gap [Moles/Vol] 13 mmol/L 5-15 [facility] Automated lymphocyte count a s percentage of total leukocytesOrdered By: August Carroll on 06-12-2025 Lymphocytes/100 WBC Auto (Unsp spec) 11.8 % Low 19-41 [facility] BUN/creatinine ratioOrdered By: August Carroll on 06-12-2025 Urea nitrogen/Creatinine [Mass ratio] 25.7 mg/mg High 10-20 [facility] Basophil percentageOrdered B y: August Carroll on 06-12-2025 Basophils/100 WBC (Bld) 0.5 % 0-1 [facility] Beta-hydroxybutyrateOrdered By: August Carroll on 06-12-2025 Beta hydroxybutyrate [Mass/Vol] 0.6 mmol/L High 0.0-0.3 [facility] Bilirubin Test strip Ql (U)O rdered By: August Carroll on 06-12-2025 Bilirubin Ql (U) Negative Negative [facility] Bilirubin directOrdered By: August Carroll on 06-12-2025 Bilirubin.direct [Mass/Vol] mg/dL 0.00-0.30 [facility] Comment on above: Hemolysis present, R esults could be affected. Bilirubin, totalOrdered By: August Carroll on 06-12-2025 Bilirubin [Mass/Vol] 0.30 mg/dL 0.00-1.[address] [facility] Carbon dioxide, total [Moles /volume] in Central venous bloodOrdered By: August Carroll on 06-12-2025 CO2 [Moles/Vol] 17.9 mmol/L Low 21.0-32.0 [facility] Chloride assayOrdered By: Miguel Angel Carroll on 06-12-2025 Chloride [Moles/Vol] 100 mmol/L 98-[address] [facility] Eosinophil percentageOrdered By: August Carroll on 06-12-2025 Eosinophils/100 WBC (Bld) 0.3 % 0-5 [facility] Erythrocyte distribution wid th ratioOrdered By: August Carroll on 06-12-2025 Erythrocyte distribution width (RBC) [Ratio] 13.2 % 11.6-14.6 [facility] Erythrocyte distribution wid th standard deviationOrdered By: [place] Armando Oakley on 06-12-2025 Erythrocyte distribution width (RBC) [Ratio] 41.5 fl 35.1-43.9 [facility] Glomerular filtration rate ( GFR) estimation/1.73 sq m using serum, plasma, or whole bOrdered By: Augustjeanette Carroll on 06-12-2025 GFR/1.73 sq M.predicted among non-blacks MDRD (S/P/Bld) [Vol rate/Area] 106 mL/min/{1.73_m2} >60 [facility] Comment on above: mL/min/1.73m2 CKD-EP I Creatinine Equation (2020) Hematocrit Auto (Bld) [Volum e fraction]Ordered By: August Carroll on 06-12-2025 Hematocrit (Bld) [Volume fraction] 41.6 % 40-54 [facility] Hemoglobin measurementOrdere d By: August Carroll on 06-12-2025 Hemoglobin (Bld) [Mass/Vol] 13.9 g/dL 13.0-16.5 [facility] Hyaline casts LM.LPF (Urine sed) [#/Area]Ordered By: August Carroll on 06-12-2025 Hyaline casts (Urine sed) [#/Area] 0 /[LPF] 0-5 [facility] Immature granulocytes/100 WB C Auto (Bld)Ordered By: Augustjeanette Carroll on 06-12-2025 Immature granulocytes/100 WBC (Bld) 0.600 % 0.0-0.9 [facility] Comment on above: IG% - Immature Granu locytes (promyelocytes, myelocytes and metamyelocytes) > 1% indicates that a LEFT SHIFT is Present. Ketones Test strip Ql (U)Ord ered By: August Carroll on 06-12-2025 Ketones Ql (U) 50 mg/dl High Negative [facility] Laboratory - Chemistry and C hemistry - challengeOrdered By: August Carroll on 06-12-2025 AST [Catalytic activity/Vol] 40 U/L High <38 [facility] Comment on above: Hemolysis present, R esults could be affected. Lactic acid measurementOrder ed By: August Carroll on 06-12-2025 Lactate [Moles/Vol] 1.9 mmol/L 0.0-2.0 [facility] Lipase measurementOrdered By : August Carroll on 06-12-2025 Lipase [Catalytic activity/Vol] 23 U/L 13-75 [facility] Comment on above: Please note:LIPASE r evised reference range effective 23. New Lipase methodology. Expected to produce lower values than the previous assay method. NEW Reference Range: 13 - 75 U/L MCV (mean corpuscular volume ) determinationOrdered By: August Carroll on 06-12-2025 MCV (RBC) [Entitic vol] 86.7 fL 80-94 [facility] Mean corpuscular hemoglobin (MCH) determinationOrdered By: August Carroll on 06-12-2025 MCH (RBC) [Entitic mass] 29.0 pg 27.0-32.0 [facility] Mean corpuscular hemoglobin concentration (MCHC) determinationOrdered By: August Carroll on 06-12-2025 MCHC (RBC) [Mass/Vol] 33.4 g/dL 32-36 [facility] Mean platelet volume determi nationOrdered By: August Carroll on 06-12-2025 Platelet mean volume (Bld) [Entitic vol] 11.1 fL 6.2-12.0 [facility] Microscopic analysis of urin e for red blood cells (RBC)Ordered By: August Carroll on 06-12-2025 Microscopic analysis of urine for red blood cells (RBC) 0-5 SEEN /hpf 0-5 [facility] Monocyte percentageOrdered B y: August Carroll on 06-12-2025 Monocytes/100 WBC (Bld) 4.6 % 0-10 [facility] Mucus LM Ql (Urine sed)Order ed By: August Carroll on 06-12-2025 Mucus Ql (Urine sed) 0 SEEN /hpf [facility] Neutrophil percentageOrdered By: August Carroll on 06-12-2025 Neutrophils/100 WBC (Bld) 82.2 % High 47-70 [facility] Nitrite Test strip Ql (U)Ord ered By: August Carroll on 06-12-2025 Nitrite Ql (U) Negative Negative [facility] No Panel InformationOrdered By: August Carroll on 06-12-2025 Urine Buprenorphine Qualitative Negative < 200 ng/mL [facility] Urine Oxycodone Screen Negative < 100 ng/mL [facility] Nucleated red blood cell per centageOrdered By: August Carroll on 06-12-2025 Nucleated RBC/100 WBC (Bld) [Ratio] 0 % 0-5 [facility] Platelet countOrdered By: Miguel Angel Carroll on 06-12-2025 Platelets (Bld) [#/Vol] 321 10*3/uL 150-450 [facility] Potassium measurement (mass/ volume)Ordered By: August Carroll on 06-12-2025 Potassium (Unsp spec) [Mass/Vol] 4.6 mmol/L 3.3-5.1 [facility] Protein Test strip Ql (U)Ord ered By: August Carroll on 06-12-2025 Protein Ql (U) 100 mg/dl High Negative [facility] Quantitative urine opiates m easurementOrdered By: August Carroll on 06-12-2025 Opiates Ql (U) Positive < 300 ng/mL [facility] Comment on above: If confirmation test ing is needed, a separate order will be required to send out testing to the reference laboratory. RBC Auto (Bld) [#/Vol]Ordere d By: August Carroll on 06-12-2025 RBC (Bld) [#/Vol] 4.80 10*6/uL 4.6-6.2 [facility] Screening urine fentanyl sanjana surementOrdered By: August Carroll on 06-12-2025 fentaNYL Screen Ql (U) Negative [facility] Serum creatinine measurement (mass/volume)Ordered By: August Carroll on 06-12-2025 Creatinine [Mass/Vol] 0.94 mg/dL 0.70-1.20 [facility] Serum globulin measurementOr dered By: August Carroll on 06-12-2025 Globulin (S) [Mass/Vol] 4.6 g/dL High 2.2-4.2 [facility] Serum glucose measurement (m ass/volume)Ordered By: August Carroll on 06-12-2025 Glucose [Mass/Vol] 232 mg/dL High 70-99 [facility] Serum or plasma alanine escamilla otransferase (ALT) measurementOrdered By: August Carroll on 06-12-2025 ALT [Catalytic activity/Vol] 18 U/L <47 [facility] Comment on above: Hemolysis present, R esults could be affected. Serum or plasma albumin luis carlos urement (mass/volume)Ordered By: August Oakley on 06-12-2025 Albumin [Mass/Vol] 4.7 g/dL 3.5-5.0 [facility] Serum or plasma alkaline tessy sphatase measurementOrdered By: August Carroll on 06-12-2025 ALP [Catalytic activity/Vol] 149 U/L High 40-129 [facility] Serum or plasma calcium luis carlos urement (mass/volume)Ordered By: August Oakley on 06-12-2025 Calcium [Mass/Vol] 8.5 mg/dL 7.6-11.0 [facility] Serum or plasma urea nitroge n measurement (mass/volume)Ordered By: August Carroll on 06-12-2025 Urea nitrogen [Mass/Vol] 24 mg/dL High 4-19 [facility] Sodium levelOrdered By: Shukri Carroll on 06-12-2025 Sodium [Moles/Vol] 131 mmol/L Low 133-145 [facility] Squamous epithelial cells de tection in urine sediment by light microscopyOrdered By: August Carroll on 06-12-2025 Epithelial cells.squamous LM Ql (Urine sed) 0 SEEN /hpf 0-5 [facility] Total proteinOrdered By: Marino Carroll on 06-12-2025 Protein [Mass/Vol] 9.4 g/dL High 5.9-8.4 [facility] Urine benzodiazepine levelOr dered By: August Carroll on 06-12-2025 Benzodiazepines Ql (U) Negative < 200 ng/mL [facility] Urine clarityOrdered By: Marino Carroll on 06-12-2025 Clarity (U) Clear Clear [facility] Urine cocaine levelOrdered B y: August Carroll on 06-12-2025 Cocaine Ql (U) Negative < 300 ng/mL [facility] Urine color determinationOrd ered By: August Carroll on 06-12-2025 Color (U) Straw Yellow [facility] Urine onekv-0-lactioxhbbepvw abinol (THC) measurementOrdered By: August Oakley on 06-12-2025 Cannabinoids Screen Ql (U) Positive < 50 ng/mL [facility] Comment on above: If confirmation test ing is needed, a separate order will be required to send out testing to the reference laboratory. Urine glucose detectionOrder ed By: August Carroll on 06-12-2025 Glucose Ql (U) 1000 mg/dl High Normal [facility] Urine leukocyte esterase det ection by dipstickOrdered By: August Carroll on 06-12-2025 Leukocyte esterase Test strip Ql (U) Negative Negative [facility] Urine pHOrdered By: August Emmanuel on 06-12-2025 pH (U) 7.0 [pH] 5.0 - 8.0 [facility] Urine phencyclidine (PCP) de tectionOrdered By: August Carroll on 06-12-2025 Phencyclidine Ql (U) Negative < 25 ng/mL [facility] Urine sediment bacteria coun t by microscopy (number/high power field)Ordered By: August Carroll on 06-12-2025 Bacteria LM.HPF (Urine sed) [#/Area] 0 /[HPF] None Seen [facility] Urine specific gravity measu rementOrdered By: [facility] on 06-12-2025 Specific gravity (U) [Rel density] 1.010 1.002-1.030 [facility] Urine urobilinogen measureme ntOrdered By: [facility] on 06-12-2025 Urobilinogen Ql (U) Normal mg/dl Normal [facility] White blood cell (WBC) count Ordered By: [facility] on 06-12-2025 WBC (Bld) [#/Vol] 15.9 10*3/uL High 4.4-11.0 [facility] White blood cell countOrdere d By: August Carroll on 06-12-2025 White blood cell count 0-5 SEEN /hpf 0-5 [facility] Gastroenterology Visit Repor ton 05-17-2025 Gastroenterology Visit Report [facility] [address] [place] [address] OFFICE VISIT Date of Service: 05/17/25 MR#: [id number] Acct: [id number] Name: WESTON GAMEZ Rep #: [id number] : 1985 Provider: Jaycob rAgueta DO Age/Sex: 39/M Location: [facility] Status: Signed Intake Vital Signs 02/06/25 17:10 [...] 20 mg PO DAILY bp #30 tabs 4 05/17/25 Rx gabapentin 100 mg capsule [...] him from eating the way he should. COUNT INCLUDES THE [facility] Medical History (Updated 05/17/25 @ 15:35 by [...] to the office today for follow up. [facility] ED 01.25.24 abd pain with N/V x15 abd/pelvis CT 01.25.24 1. Urinary bladder distention may be transient/physiologic. Correlate clinically. 2. Mildly prominent bilateral inguinal lymph nodes, perhaps reactive. [facility] ED 3 - 01.29.24 abd pain [...] the stomach. Retained food in the duodenum. [facility] ED 05.14.24 abd pain abd/pelvis CT .05.31 No acute [...] began. Pt continues with pantoprazole 40mg BID. [facility] hospitalization 07.30.24-08.01.24 for intractable n/v with hematemesis. Underwent EGD. Biopsy positive for H.Pylori EGD 07.31.24; - Cyclic vomiting synd (more content not included)... Normal [facility] Endocrinology Visit Reporton 05-03-2025 Endocrinology Visit Report [facility] [address] [place] [address] OFFICE VISIT Date of Service: 05/03/25 MR#: [id number] Acct: [id number] Name: WESTON GAMEZ Rep #: [id number] : 1985 Provider: Karin Sharpe Age/Sex: 39/M Location: [facility] Status: Signed Intake Vital Signs 04/19/25 13:13 [...] gauge x #100 ea 03/29/24 05/03/25 Rx 5/32 (BD Ultra-Fine Lizzeth Pen Needle) [...] g PO Q6 #120 TABLETS 04/24/25 Rx PFSH Medical History Gastroparesis Former tobacco [...] Conjunctivae: conjun (more content not included)... Normal [facility] ALBUMIN/CREATININE RATIO, UR INEon 05-01-2025 Albumin DL <= 20 mg/L (U) [Mass/Vol] 28.7 mg/L Normal [facility] Comment on above: Order Comment: Speci men Type: URINE SPECIMENOrdering Facility: [facility] Address: [address] [place] [address] Performed By: #### U ACR ####[facility] LABCLIA [id number] [place] [address] [place] Albumin/Creatinine (U) [Mass ratio] 13 mg/g Normal <30 [facility] Comment on above: Order Comment: Speci men Type: URINE SPECIMENOrdering Facility: [facility] Address: [address] [place] [address] Result Comment: Adul t Male and Female Nephrotic Criteria: <30 mg/g is considered normal to mildly increased 30-300 mg/g is considered moderately increased >300 mg/g is considered severely increased KDIGO. (2013). KDIGO 2012 Clinical Practice Guideline for the Evaluation and Management of Chronic Kidney Disease. Official Journal of the International Society of Nephrology, 3(1), 1-150. Performed By: #### U ACR ####[facility] LABCLIA [id number] [address] STATES OF [facility] Creatinine (U) [Mass/Vol] 221.4 mg/dL Normal 20.0-300.0 [facility] Comment on above: Order Comment: Speci men Type: URINE SPECIMENOrdering Facility: [facility] Address: [address] [place] [address] Performed By: #### U ACR ####[facility] LABCLIA [id number] [address] [facility] CNOVon 04-30-2025 [facility] WESTON GAMEZ ([id number]) 1985 M T Date Time Provider Department 04/30/25 2:40 PM [place] [facility] During your visit today, we recorded the following information about you: Pulse Blood pressure Weight 109/minute 115/79 72 kg Austin Camarena, MOTOR ELECTRICIAN.HYDROELECTRIC SYSTEMS TECHNICIAN 04/30/2025 2:44 PM Signed Chief Complaint Patient [...] scheduled - ALBUMIN/CREATININE RATIO, URINE Austin Camarena APRN.HYDROELECTRIC SYSTEMS TECHNICIAN Allergies As of Date: 04/30/2025 (No Known Allergies) Date Reviewed: 04/30/2025 Reviewed by: Lisseth Morel MA - Fully Assessed Reason for (more content not included)... Normal [facility] Comprehensive metabolic 2000 panelon 04-30-2025 Albumin [Mass/Vol] 4.4 g/dL 3.9 - 4.9 g/dL [facility] ALP [Catalytic activity/Vol] 157 U/L High 38 - 113 U/L [facility] ALT [Catalytic activity/Vol] 18 U/L 10 - 54 U/L [facility] Anion gap [Moles/Vol] 15 mmol/L 8 - 15 mmol/L [facility] AST [Catalytic activity/Vol] 32 U/L 14 - 40 U/L [facility] Bilirubin [Mass/Vol] 0.2 mg/dL 0.2 - 1 .3 mg/dL [facility] Calcium [Mass/Vol] 10.5 mg/dL High 8.5 - 10. 2 mg/dL [facility] Chloride [Moles/Vol] 98 mmol/L 98 - 10 7 mmol/L [facility] CO2 [Moles/Vol] 21 mmol/L Low 22 - 30 mmol/L [facility] Creatinine [Mass/Vol] 1.32 mg/dL High 0.73 - 1.22 mg/dL [facility] GFR/1.73 sq M.predicted among non-blacks MDRD (S/P/Bld) [Vol rate/Area] 70 mL/min/{1.73_m2} - PINF [facility] Comment on above: Estimated Glomerular Filtration Rate [...] 368 mg/dL High 74 - 99 mg/dL [facility] Comment on above: The [place] Diab[employer] s Association (ADA) provides guidance for [...] Standards of Medical Care in Diabetes 2016, [place] [employer]. Diabetes Care. 2016.39(Suppl 1). Potassium [Moles/Vol] 5.6 mmol/L High 3.7 - 5.1 mmol/L [facility] Protein [Mass/Vol] 8.4 g/dL High 6.3 - 8.0 g/dL [facility] Sodium [Moles/Vol] 134 mmol/L Low 136 - 144 mmol/L [facility] Urea nitrogen [Mass/Vol] 33 mg/dL High 9 - 24 mg/dL [facility] Albumin [Mass/Vol] 4.4 g/dL Normal 3.9-4.9 [facility] Comment on above: Order Comment: Speci men Type: BLOOD SPECIMENOrdering Facility: [facility] Address: [address] [place] [address] Performed By: #### 2 4323-8, LIPNF ####[facility] LABCLIA [id number] [place] [address] [place] ALP [Catalytic activity/Vol] 157 U/L High 38-113 [facility] Comment on above: Order Comment: Ruthi reji Type: BLOOD SPECIMENOrdering Facility: [facility] Address: [address] [place] [address] Performed By: #### 2 4323-8, LIPNF ####[facility] LABCLIA [id number] [place] [address] [place] ALT [Catalytic activity/Vol] 18 U/L Normal 10-54 [facility] Comment on above: Order Comment: Speci men Type: BLOOD SPECIMENOrdering Facility: [facility] Address: [address] [place] [address] Performed By: #### 2 4323-8, LIPNF ####[facility] LABCLIA [id number] [place] [address] [place] Anion gap [Moles/Vol] 15 mmol/L Normal 8-15 [facility] Comment on above: Order Comment: Speci men Type: BLOOD SPECIMENOrdering Facility: [facility] Address: [address] [id number] Performed By: #### 2 4323-8, LIPNF ####[facility] LABCLIA [id number] [address] [address] [place] AST [Catalytic activity/Vol] 32 U/L Normal 14-40 [facility] Comment on above: Order Comment: Speci men Type: BLOOD SPECIMENOrdering Facility: [facility] Address: [address] [place], [place] [id number] Performed By: #### 2 4323-8, LIPNF ####[facility] LABCLIA [id number] [place] [address] [place] Bilirubin [Mass/Vol] 0.2 mg/dL Normal 0.2-1.3 [facility] Comment on above: Order Comment: Speci men Type: BLOOD SPECIMENOrdering Facility: [facility] Address: [address] [place], [place] [address] Performed By: #### 2 4323-8, LIPNF ####[facility] LABCLIA [id number] [place] [address] [place] Calcium [Mass/Vol] 10.5 mg/dL High 8.5-10.2 [facility] Comment on above: Order Comment: Speci men Type: BLOOD SPECIMENOrdering Facility: [facility] Address: [address] [id number] Performed By: #### 2 4323-8, LIPNF ####[facility] LABCLIA [id number] [place] [id number] [place] Chloride [Moles/Vol] 98 mmol/L Normal 98-107 [facility] Comment on above: Order Comment: Speci men Type: BLOOD SPECIMENOrdering Facility: [facility] Address: [address] [place] [address] Performed By: #### 2 4323-8, LIPNF ####[facility] LABCLIA [id number] [place] [id number] [place] CO2 [Moles/Vol] 21 mmol/L Low 22-30 [facility] Comment on above: Order Comment: Speci men Type: BLOOD SPECIMENOrdering Facility: [facility] Address: [address] [place] [address] Performed By: #### 2 4323-8, LIPNF ####[facility] LABCLIA [id number] [place] [address] [place] Creatinine [Mass/Vol] 1.32 mg/dL High 0.73-1.22 [facility] Comment on above: Order Comment: Speci men Type: BLOOD SPECIMENOrdering Facility: [facility] Address: [address] [place] [address] Performed By: #### 2 4323-8, LIPNF ####[facility] LABIA [id number] [place] [address] [place] Creatinine and Glomerular filtration rate.predicted panel (S/P/Bld) 70 mL/min/1.73m??? Normal >=60 [facility] Comment on above: Order Comment: Speci men Type: BLOOD SPECIMENOrdering Facility: [facility] Address: [address] [place] [address] Result Comment: Beverly mated Glomerular Filtration Rate [...] GFR. Performed By: #### 2 4323-8, LIPNF ####[facility] LABCLIA [id number] [place] [id number] [place] Glucose [Mass/Vol] 368 mg/dL High 74-99 [facility] Comment on above: Order Comment: Speci men Type: BLOOD SPECIMENOrdering Facility: [facility] Address: [address] [place] [address] Result Comment: The [place] Diabetes Association (ADA) provides guidance for cutoff [...] Standards of Medical Care in Diabetes 2016, [place] Diabetes Association. Diabetes Care. 2016.39(Suppl 1). Performed By: #### 2 4323-8, LIPNF ####[facility] LABCLIA [id number] [place] [address] [place] Potassium [Moles/Vol] 5.6 mmol/L High 3.7-5.1 [facility] Comment on above: Order Comment: Speci men Type: BLOOD SPECIMENOrdering Facility: [facility] Address: [address] [place] [address] Performed By: #### 2 4323-8, LIPNF ####[facility] LABCLIA [id number] [place] [address] [place] Protein [Mass/Vol] 8.4 g/dL High 6.3-8.0 [facility] Comment on above: Order Comment: Speci men Type: BLOOD SPECIMENOrdering Facility: [facility] Address: [address] [place] [address] Performed By: #### 2 4323-8, LIPNF ####[facility] LABCLIA [id number] [place] [address] [place] Sodium [Moles/Vol] 134 mmol/L Low 136-144 [facility] Comment on above: Order Comment: Speci men Type: BLOOD SPECIMENOrdering Facility: [facility] Address: [address] [place] [address] Performed By: #### 2 4323-8, LIPNF ####[facility] LABCLIA [id number] [place] [address] [place] Urea nitrogen [Mass/Vol] 33 mg/dL High 9-24 [facility] Comment on above: Order Comment: Speci men Type: BLOOD SPECIMENOrdering Facility: [facility] Address: [address] [place] [address] Performed By: #### 2 4323-8, LIPNF ####[facility] LABCLIA [id number] [address] [address] [place] LIPID PANEL, NONFASTINGon Cholesterol [Mass/Vol] 227 mg/dL High NINF - 200 mg/dL [facility] Comment on above: <200 mg/dL, Desirabl e 200-239 mg/dL, Borderline high >239 mg/dL, High HDL Cholesterol, Nonfasting 39 mg/dL Low 39 - PINF mg/dL [facility] Comment on above: 40-59 mg/dL, Accepta ble >59 mg/dL, High: Negative risk factor for coronary heart disease <40 mg/dL, Low: Positive risk factor for coronary heart disease LDL Cholesterol Calculated, Nonfasting 139 mg/dL High NINF - 100 mg/dL [facility] Comment on above: <100 mg/dL, Optimal 100-129 mg/dL, Near optimal/above optimal 130-159 mg/dL, Borderline high 160-189 mg/dL, High >189 mg/dL, Very high Secondary prevention optimal LDL Cholesterol levels are recommended to be <70 mg/dL LDL cholesterol is calculated using the Castro-NIH equation. LDL/HDL Ratio, Nonfasting 3.56 mg/dL High NINF - 2.54 mg/dL [facility] Comment on above: Reference: 1. National Cholesterol Education Program ATP III Guideline At-A-Glance Quick Desk Reference: National Heart, Lung, and Blood [place]. National Institutes of Health. 2001: NIH Publication No. 01-3305. 2. An International Atherosclerosis Society position paper: global recommendations for the management of dyslipidemia: executive summary, Atherosclerosis. 2014: 232(2):410-413. Non HDL Cholesterol, Nonfasting 188 mg/dL High NINF - 130 mg/dL [facility] Comment on above: <130 mg/dL, Optimal 130-159 mg/dL, Near optimal/above optimal 160-189 mg/dL, Borderline high 190-219 mg/dL, High >219 mg/dL, Very high Secondary prevention optimal non HDL Cholesterol levels are recommended to be <100 mg/dL Total Chol/HDL Ratio, Nonfasting 5.82 mg/dL High NINF - 5.10 mg/dL [facility] Triglycerides, Nonfasting 269 mg/dL High NINF - 150 mg/dL [facility] Comment on above: <150 mg/dL, Normal 150-199 mg/dL, Borderline high 200-499 mg/dL, High >499 mg/dL, Very high VLDL Cholesterol, Nonfasting 49 mg/dL High NINF - 30 mg/dL [facility] Cholesterol [Mass/Vol] 227 mg/dL High <200 [facility] Comment on above: Order Comment: Speci men Type: BLOOD SPECIMENOrdering Facility: [facility] Address: [address] [place] [address] Result Comment: <200 mg/dL, Desirable 200-239 mg/dL, Borderline high >239 mg/dL, High Performed By: #### 2 4323-8, LIPNF ####[facility] LABCLIA [id number] [place] [address] [place] HDL CHOLESTEROL, NF 39 mg/dL Low >39 [facility] Comment on above: Order Comment: Speci men Type: BLOOD SPECIMENOrdering Facility: [facility] Address: [address] [place] [address] Result Comment: 40-5 9 mg/dL, Acceptable >59 mg/dL, High: Negative risk factor for coronary heart disease <40 mg/dL, Low: Positive risk factor for coronary heart disease Performed By: #### 2 4323-8, LIPNF ####[facility] LABCLIA [id number] LDL CHOLESTEROL CALCULATED, NF 139 mg/dL High <100 [facility] Comment on above: Order Comment: Se reji Type: BLOOD SPECIMENOrdering Facility: [facility] Address: [address] [place] [address] Result Comment: <100 mg/dL, Optimal 100-129 mg/dL, Near optimal/above optimal 130-159 mg/dL, Borderline high 160-189 mg/dL, High >189 mg/dL, Very high Secondary prevention optimal LDL Cholesterol levels are recommended to be <70 mg/dL LDL cholesterol is calculated using the Castro-NIH equation. Performed By: #### 2 4323-8, LIPNF ####[facility] LABIA [id number] [address] LDL/HDL RATIO, NF 3.56 mg/dL High <2.54 [facility] Comment on above: Order Comment: Se reji Type: BLOOD SPECIMENOrdering Facility: [facility] Address: [address] [place] [address] Result Comment: Reflisy larson: 1. National Cholesterol Education Program ATP III Guideline At-A-Glance Quick Desk Reference: National Heart, Lung, and Blood [place]. National Institutes of Health. 2001: NIH Publication No. 01-3305. 2. An International Atherosclerosis Society position paper: global recommendations for the management of dyslipidemia: executive summary, Atherosclerosis. 2014: 232(2):410-413. Performed By: #### 2 4323-8, LIPNF ####[facility] LABIA [id number] [address] STATES OF [facility] NON HDL CHOL, NF 188 mg/dL High <130 [facility] Comment on above: Order Comment: Se reji Type: BLOOD SPECIMENOrdering Facility: [facility] Address: [address] [place] [address] Result Comment: <130 mg/dL, Optimal 130-159 mg/dL, Near optimal/above optimal 160-189 mg/dL, Borderline high 190-219 mg/dL, High >219 mg/dL, Very high Secondary prevention optimal non HDL Cholesterol levels are recommended to be <100 mg/dL Performed By: #### 2 4323-8, LIPNF ####[facility] LABCLIA [id number] [address] [address] [place] T CHOL/HDL RATIO NF 5.82 mg/dL High <5.10 [facility] Comment on above: Order Comment: Speci men Type: BLOOD SPECIMENOrdering Facility: [facility] Address: [address] [place] [address] Performed By: #### 2 4323-8, LIPNF ####[facility] LABCLIA [id number] [place] [address] [place] TRIGLYCERIDES, NF 269 mg/dL High <150 [facility] Comment on above: Order Comment: Speci men Type: BLOOD SPECIMENOrdering Facility: [facility] Address: [address] [place] [address] Result Comment: <150 mg/dL, Normal 150-199 mg/dL, Borderline high 200-499 mg/dL, High >499 mg/dL, Very high Performed By: #### 2 4323-8, LIPNF ####[facility] LABCLIA [id number] [place] [address] [place] VLDL CHOLESTEROL, NF 49 mg/dL High <30 [facility] Comment on above: Order Comment: Speci men Type: BLOOD SPECIMENOrdering Facility: [facility] Address: [address] [place] [address] Performed By: #### 2 4323-8, LIPNF ####[facility] LABCLIA [id number] [place] [address] [place] No Panel Informationon 04-30 Interpretation and review of laboratory results Abnormal [facility] Endocrinology Visit Reporton 04-19-2025 Endocrinology Visit Report [facility] [address] [place], [place] [address] OFFICE VISIT Date of Service: 04/19/25 MR#: [id number] Acct: [id number] Name: WESTON GAMEZ Rep #: [id number] : 1985 Provider: JIE phelan Age/Sex: 39/M Location: [facility] Status: Signed Intake Vital Signs 01/18/25 13:03 [...] 3 M FU Chief Complaint: f/u diabetes Guyline Operator Required: No Accompanied by: Self Is [...] is no longer receiving pods from [employer]. [employer] report downloaded and reviewed- he is rarely [...] Const Con (more content not included)... Normal [facility] Laboratory - Hematology and Cell countsOrdered By: Queenie Gonzales on 04-19-2025 HbA1c (Bld) [Mass fraction] 11.3 % High 4.2-6.3 [facility] Emergency Department Summary on 02-06-2025 Emergency Department Summary [facility] Medical Records Department [address] [place] [address] Emergency Department Summary 02/06/25 MR#: [id number] Acct: [id number] Name: WESTON GAMEZ Rep #: [id number] : 1985 39 From: Ludni Sanderson MD PCP: Austin Camarena NP-Joanna Status:PRE ER Location: ED HPI History of [...] quit smoking cigarettes about a month ago. [facility] Medical History Gastroparesis Former tobacco use Cannabis [...] Rate 94 (more content not included)... Normal [facility] CNOVon 01-25-2025 CNOV Office Visit (FAMPWS ) -- WESTON GAMEZ ([id number]) 1985 M [facility] Date Time Provider Department 01/25/25 4:00 PM [place] CAMARENA During your visit today, we recorded the following information about you: Pulse Respiration Blood pressure Weight 108/minute 12/minute 124/78 75.9 kg Austin Camarena APRN.[facility] 01/25/2025 3:59 PM Signed Chief Complaint Patient presents with: Medication Follow-up HPI Weston Gamez is a 39 year old male who presents here today for Above Complaints.. Patient presents for medication follow up. Patient reports he stopped strattera and is seeing psych who placed him on buspar, adderall. Patient seeing psych in [facility]. Past medical history, appointments, medications, allergies reviewed. [...] up for other chronic conditions. 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 Normal [facility] Endocrinology Visit Reporton 01-18-2025 Endocrinology Visit Report [facility] [address] [place] [address] OFFICE VISIT Date of Service: 01/18/25 MR#: [id number] Acct: [id number] Name: WESTON GAMEZ Rep #: [id number] : 1985 Provider: JIE phelan Age/Sex: 39/M Location[place] [facility] Status: Signed Intake Vital Signs 11/22/24 11:44 [...] gauge x #100 ea 03/29/24 11/22/24 Rx (BD Ultra-Fine Lizzeth Pen Needle) lisinopril [...] tablet 1 g PO Q6H #120 tabs 11/29/2401/06 Rx metoclopramide HCl 5 mg tablet 5 [...] mg PO BID 01/18/25 01/18/25 [facility] Gastroparesis Former tobacco use Cannabis [...] Neck: nor (more content not included)... Normal [facility] 25(OH)D3 [facility] 2024 25-hydroxyvitamin D3 [Mass/Vol] 11.8 ng/mL Low 31.0-80.0 [facility] Comment on above: Order Comment: Speci men Type: URINE SPECIMEN [facility] Address: [address] [place] [address] Result Comment: Clas sification of 25 [place] Vitamin D status: Deficiency/Insufficiency: < or = 30 ng/ml. Sufficiency/Optimal Levels: 31-80 ng/mL Toxicity: > 100 ng/mL. Test performed by chemiluminescent immunoassay. Performed By: #### L [id number] #### [facility] LAB CLIA [id number] [address] [place], [place] [address] [address] [place] Bilirub Conj SerPl-mCncon Bilirubin.conjugated [Mass/Vol] 0.1 mg/dL Normal <0.3 [facility] Comment on above: Order Comment: Speci men Type: BLOOD SPECIMENOrdering Facility: [facility] Address: [address] [place] [address] Performed By: #### 1 5152-2, 91135-4 ####[facility] LABORATORYCLIA [id number] [place] [address] [place] CBC W Auto Differential pane l (Bld)on 01-05-2025 Basophils (Bld) [#/Vol] 0.07 10*3/uL Normal <0.11 [facility] Comment on above: Order Comment: Speci men Type: BLOOD SPECIMENOrdering Facility: [facility] Address: [address] [place] [address] Performed By: #### 5 7021-8 ####[facility] HOSPITALNOLANA [id number] [place] [address] [place] Basophils/100 WBC (Bld) 0.7 % Normal [facility] Comment on above: Order Comment: Speci men Type: BLOOD SPECIMENOrdering Facility: [facility] Address: [address] [place] [address] Performed By: #### 5 7021-8 ####[facility] H[facility]ITALLIA [id number] [place] [address] [place] Differential cell count method Nom (Bld) Auto Normal [facility] Comment on above: Order Comment: Speci men Type: BLOOD SPECIMENOrdering Facility: [facility] Address: [address] [place] [address] Performed By: #### 5 7021-8 ####[facility]LEWNCLIA [id number] [place] [address] [place] Eosinophils (Bld) [#/Vol] 0.26 10*3/uL Normal <0.46 [facility] Comment on above: Order Comment: Speci men Type: BLOOD SPECIMENOrdering Facility: [facility] Address: [address] [place] [address] Performed By: #### 5 7021-8 ####[facility]CL[facility] [id number] [place] [address] [place] Eosinophils/100 WBC (Bld) 2.7 % Normal [facility] Comment on above: Order Comment: Speci men Type: BLOOD SPECIMENOrdering Facility: [facility] Address: [address] [place] [address] Performed By: #### 5 7021-8 ####[facility]CLIA [id number] [place] [address] [place] Erythrocyte distribution width (RBC) [Ratio] 13.7 % Normal 11.5-15.0 [facility] Comment on above: Order Comment: Speci men Type: BLOOD SPECIMENOrdering Facility: [facility] Address: [address] [place] [address] Performed By: #### 5 7021-8 ####[facility]CLIA [id number] [place] [address] [place] Hematocrit (Bld) [Volume fraction] 39.5 % Normal 39.0-51.0 [facility] Comment on above: Order Comment: Speci men Type: BLOOD SPECIMENOrdering Facility: [facility] Address: [address] [place] [address] Performed By: #### 5 7021-8 ####[facility] CENTERSULY [id number] [place] [address] [place] Hemoglobin (Bld) [Mass/Vol] 12.7 g/dL Low 13.0-17.0 [facility] Comment on above: Order Comment: Speci men Type: BLOOD SPECIMENOrdering Facility: [facility] Address: [address] [place] [address] Performed By: #### 5 7021-8 ####[facility] CENTERSTACEY [id number] [place] [address] [place] Immature granulocytes (Bld) [#/Vol] 10*3/uL Normal <0.10 [facility] Comment on above: Order Comment: Speci men Type: BLOOD SPECIMENOrdering Facility: [facility] Address: [address] [place] [address] Performed By: #### 5 7021-8 ####[facility] CENTERSTEPHANELIA [id number] [place] [address] [place] Immature granulocytes/100 WBC (Bld) 0.2 % Normal [facility] Comment on above: Order Comment: Speci men Type: BLOOD SPECIMENOrdering Facility: [facility] Address: [address] [place] [address] Performed By: #### 5 7021-8 ####[facility]IMMEEA [id number] [place] [address] [place] Lymphocytes (Bld) [#/Vol] 2.72 10*3/uL Normal 1.00-4.00 [facility] Comment on above: Order Comment: Speci men Type: BLOOD SPECIMENOrdering Facility: [facility] Address: [address] [place] [address] Performed By: #### 5 7021-8 ####[facility]LEWNCLIA [id number] [place] [address] [place] Lymphocytes/100 WBC (Bld) 27.7 % Normal [facility] Comment on above: Order Comment: Speci men Type: BLOOD SPECIMENOrdering Facility: [facility] Address: [address] [place] [address] Performed By: #### 5 7021-8 ####[facility]ENTERNCLIA [id number] [place] [address] [place] MCH (RBC) [Entitic mass] 28.8 pg Normal 26.0-34.0 [facility] Comment on above: Order Comment: Speci men Type: BLOOD SPECIMENOrdering Facility: [facility] Address: [address] [place] [address] Performed By: #### 5 7021-8 ####[facility] HOSPITALLIA [id number] [place] [address] [place] MCHC (RBC) [Mass/Vol] 32.2 g/dL Normal 30.5-36.0 [facility] Comment on above: Order Comment: Speci men Type: BLOOD SPECIMENOrdering Facility: [facility] Address: [address] [place] [address] Performed By: #### 5 7021-8 ####[facility] HOSPITALLIA [id number] [place] [address] [place] MCV (RBC) [Entitic vol] 89.6 fL Normal 80.0-100.0 [facility] Comment on above: Order Comment: Speci men Type: BLOOD SPECIMENOrdering Facility: [facility] Address: [address] [place] [address] Performed By: #### 5 7021-8 ####[facility] HOSPITALLI [id number] [place] [address] [place] Monocytes (Bld) [#/Vol] 0.84 10*3/uL Normal <0.87 [facility] Comment on above: Order Comment: Speci men Type: BLOOD SPECIMENOrdering Facility: [facility] Address: [address] [place] [address] Performed By: #### 5 7021-8 ####[facility]LEWNCLIA [id number] [place] [address] [place] Monocytes/100 WBC (Bld) 8.6 % Normal [facility] Comment on above: Order Comment: Speci men Type: BLOOD SPECIMENOrdering Facility: [facility] Address: [address] [place] [address] Performed By: #### 5 7021-8 ####[facility]ENTERNCLIA [id number] [place] [address] [place] Neutrophils (Bld) [#/Vol] 5.90 10*3/uL Normal 1.45-7.50 [facility] Comment on above: Order Comment: Speci men Type: BLOOD SPECIMENOrdering Facility: [facility] Address: [address] [place] [address] Performed By: #### 5 7021-8 ####[facility]ENTERNCLIA [id number] [place] [address] [place] Neutrophils/100 WBC (Bld) 60.1 % Normal [facility] Comment on above: Order Comment: Speci men Type: BLOOD SPECIMENOrdering Facility: [facility] Address: [address] [place] [address] Performed By: #### 5 7021-8 ####[facility]LEWNCLIA [id number] [place] [address] [place] Nucleated RBC (Bld) [#/Vol] 10*3/uL Normal <0.01 [facility] Comment on above: Order Comment: Speci men Type: BLOOD SPECIMENOrdering Facility: [facility] Address: [address] [address] Performed By: #### 5 7021-8 ####[facility] CENTERNCLI [id number] [place] [address] [place] Nucleated RBC/100 WBC (Bld) [Ratio] 0.0 /100 WBC Normal [facility] Comment on above: Order Comment: Speci men Type: BLOOD SPECIMENOrdering Facility: [facility] Address: [address] [place] [address] Performed By: #### 5 7021-8 ####[facility]ENTERNCLI [id number] [place] [address] [place] Platelet mean volume (Bld) [Entitic vol] 10.3 fL Normal 9.0-12.7 [facility] Comment on above: Order Comment: Speci men Type: BLOOD SPECIMENOrdering Facility: [facility] Address: [address] [place] [address] Performed By: #### 5 7021-8 ####[facility]ENTERNCLIA [id number] [place] [address] [place] Platelets (Bld) [#/Vol] 336 10*3/uL Normal 150-400 [facility] Comment on above: Order Comment: Speci men Type: BLOOD SPECIMENOrdering Facility: [facility] Address: [address] [place] [address] Performed By: #### 5 7021-8 ####[facility] HOSPITALLIA [id number] [place] [address] [place] RBC (Bld) [#/Vol] 4.41 10*6/uL Normal 4.20-6.00 [facility] Comment on above: Order Comment: Speci men Type: BLOOD SPECIMENOrdering Facility: [facility] Address: [address] [place] [address] Performed By: #### 5 7021-8 ####[facility] HOSPITALLIA [id number] [place] [address] [place] WBC (Bld) [#/Vol] 9.81 10*3/uL Normal 3.70-11.00 [facility] Comment on above: Order Comment: Speci men Type: BLOOD SPECIMENOrdering Facility: [facility] Address: [address] [facility] [place] [address] Performed By: #### 5 7021-8 ####[facility] HOSPITALLIA [id number] [place] [address] [place] Comprehensive metabolic 2000 panelon 01-05-2025 Albumin [Mass/Vol] 4.3 g/dL Normal 3.9-4.9 [facility] Comment on above: Order Comment: Speci men Type: BLOOD SPECIMENOrdering Facility: [facility] Address: [address] [facility] [address] Performed By: #### 1 5152-2, 18692-3 ####[facility]ORATORYCLIA [id number] [place] [address] [place] ALP [Catalytic activity/Vol] 125 U/L High 38-113 [facility] Comment on above: Order Comment: Speci men Type: BLOOD SPECIMENOrdering Facility: [facility] Address: [address] [place] [address] Performed By: #### 1 5152-2, 03113-2 ####[facility]ORATORYCLIA [id number] [place] [address] [place] ALT With P-5'-P [Catalytic activity/Vol] 50 U/L Normal 10-54 [facility] Comment on above: Order Comment: Speci men Type: BLOOD SPECIMENOrdering Facility: [facility] Address: [address] [place] [address] Performed By: #### 1 5152-2, 81107-0 ####[facility]ORATORYCLIA [id number] [place] [address] [place] Anion gap [Moles/Vol] 12 mmol/L Normal 8-15 [facility] Comment on above: Order Comment: Speci men Type: BLOOD SPECIMENOrdering Facility: [facility] Address: [address] [place] [address] Performed By: #### 1 5152-2, 14371-0 ####[facility]ORATORYCLIA [id number] [place] [address] [place] AST With P-5'-P [Catalytic activity/Vol] 68 U/L High 14-40 [facility] Comment on above: Order Comment: Speci men Type: BLOOD SPECIMENOrdering Facility: [facility] Address: [address] [place] [address] Performed By: #### 1 5152-2, 57307-0 ####[facility]ORATORYCLIA [id number] [place] [address] [place] Bilirubin [Mass/Vol] 0.2 mg/dL Normal 0.2-1.3 [facility] Comment on above: Order Comment: Speci men Type: BLOOD SPECIMENOrdering Facility: [facility] Address: [address] [place] [address] Performed By: #### 1 5152-2, 36074-0 ####[facility]ORATORYCLIA [id number] [place] [address] [place] Calcium [Mass/Vol] 10.1 mg/dL Normal 8.5-10.2 [facility] Comment on above: Order Comment: Speci men Type: BLOOD SPECIMENOrdering Facility: [facility] Address: [address] [place] [address] Performed By: #### 1 5152-2, 52231-4 ####[facility]ORATORYCLIA [id number] [place] [address] [place] Chloride [Moles/Vol] 103 mmol/L Normal 98-107 [facility] Comment on above: Order Comment: Speci men Type: BLOOD SPECIMENOrdering Facility: [facility] Address: [address] [place] [address] Performed By: #### 1 5152-2, 46626-1 ####[facility] LABORATORYCLIA [id number] [place] [id number] [place] CO2 [Moles/Vol] 25 mmol/L Normal 22-30 [facility] Comment on above: Order Comment: Speci men Type: BLOOD SPECIMENOrdering Facility: [facility] Address: [address] [place] [address] Performed By: #### 1 5152-2, ####[facility] LABORATORYCLIA [id number] [address] Creatinine [Mass/Vol] 0.89 mg/dL Normal 0.73-1.22 [facility] Comment on above: Order Comment: Speci men Type: BLOOD SPECIMENOrdering Facility: [facility] Address: [address] [place] [address] Performed By: #### 1 5152-2, ####[facility] LABORATORYCLIA [id number] [address] Creatinine and Glomerular filtration rate.predicted panel (S/P/Bld) 112 mL/min/1.73m??? Normal >=60 [facility] Comment on above: Order Comment: Speci men Type: BLOOD SPECIMENOrdering Facility: [facility] Address: [address] [place] [address] Result Comment: Beverly mated Glomerular Filtration Rate [...] actual GFR. Performed By: #### 1 5152-2, 07820-5 ####[employer] [facility] LABORATORYCLIA [id number] [place] [address] [place] Glucose [Mass/Vol] 190 mg/dL High 74-99 [facility] Comment on above: Order Comment: Speci men Type: BLOOD SPECIMENOrdering Facility: [facility] Address: [address] [place] [address] Result Comment: The [place] Diabetes Association (ADA) provides guidance for cutoff [...] Standards of Medical Care in Diabetes 2016, [place] Diabetes Association. Diabetes Care. 2016.39(Suppl 1). Performed By: #### 1 5152-2, 96725-8 ####[employer] - is now [employer] LABORATORYCLIA [id number] [place] [id number] [place] Potassium [Moles/Vol] 4.3 mmol/L Normal 3.7-5.1 [facility] Comment on above: Order Comment: Speci men Type: BLOOD SPECIMENOrdering Facility: [facility] Address: [address] [place] [address] Performed By: #### 1 5152-2, 70319-2 ####[employer] GENER[facility] LABORATORYCLIA [id number] [place] [address] [place] Protein [Mass/Vol] 7.5 g/dL Normal 6.3-8.0 [facility] Comment on above: Order Comment: Speci men Type: BLOOD SPECIMENOrdering Facility: [facility] Address: [address] [place] [address] Performed By: #### 1 5152-2, 31970-7 ####[employer] - [employer] now [employer] LABORATORYCLIA [id number] [place] [address] [place] Sodium [Moles/Vol] 140 mmol/L Normal 136-144 [facility] Comment on above: Order Comment: Speci men Type: BLOOD SPECIMENOrdering Facility: [facility] Address: [address] [place] [address] Performed By: #### 1 5152-2, 46470-5 ####[employer] [facility] LABORATORYCLIA [id number] [place] [address] [place] Urea nitrogen [Mass/Vol] 20 mg/dL Normal 9-24 [facility] Comment on above: Order Comment: Speci men Type: BLOOD SPECIMENOrdering Facility: [facility] Address: [address] [place] [address] Performed By: #### 1 5152-2, 03469-1 ####[facility] LABORATORYCLIA [id number] [place] [address] [place] HAV IgM Ser Qlon 01-05-2025 HAV IgM Ql (S) Negative Normal Negative [facility] Comment on above: Order Comment: Speci men Type: BLOOD SPECIMENOrdering Facility: [facility] Address: [address] [place] [address] Result Comment: No e vidence of recent infection with Hepatitis A virus. Performed By: #### 3 1201-7, 5195-3, 78553-7, 83136-8, 62830-4 ####[facility] LABCLIA [id number] [place] [address] [place] HBV core IgM Ser Qlon 2024 HBV core IgM Ql (S) Negative Normal Negative [facility] Comment on above: Order Comment: Speci men Type: BLOOD SPECIMENOrdering Facility: [facility] Address: [address] [place] [address] Result Comment: No e vidence of recent infection with Hepatitis B virus. Should recent infection be suspected, repeat testing may be considered 3-4 weeks after this draw. Performed By: #### 3 1201-7, 5195-3, 64420-5, 84132-1, 29547-6 ####[facility] LABCLIA [id number] [address] [address] [place] HBV surface Ag Ser Qlon 12-10 HBV surface Ag Ql (S) Negative Normal Negative [facility] Comment on above: Order Comment: Speci men Type: BLOOD SPECIMENOrdering Facility: [facility] Address: [address] [place] [address] Performed By: #### 3 1201-7, 5195-3, 16710-7, 32247-8, 39424-3 ####[facility] LABIA [id number] [place] [address] [place] HCV Ab Ser Qlon 01-05-2025 HCV Ab Ql (S) Negative Normal Negative [facility] Comment on above: Order Comment: Speci men Type: BLOOD SPECIMENOrdering Facility: [facility] Address: [address] [place] [address] Result Comment: The result suggests no evidence of active infection with Hepatitis C virus. Should recent infection be suspected, repeat testing may be considered 4-6 weeks after this draw. Performed By: #### 1 6128-1 ####[facility] LABCLIA [id number] [address] [address] [place] HIV 1+2 Ab IA Qlon HIV 1 and 2 Ab IA.rapid Nom (S/P/Bld) Normal [facility] Comment on above: Order Comment: Speci men Type: BLOOD SPECIMENOrdering Facility: [facility] Address: [address] [place] [address] Result Comment: Test not indicated. Performed By: #### 3 1201-7, 5195-3, 23977-9, 90120-2, 90720-4 ####[facility] LABCLIA [id number] [address] [address] [place] HIV 1+2 Ab+HIV1 p24 Ag IA Ql Non-Reactive Normal Nonreactive [facility] Comment on above: Order Comment: Speci men Type: BLOOD SPECIMENOrdering Facility: [facility] Address: [address] [place] [address] Performed By: #### 3 1201-7, 5195-3, 15291-1, 91717-5, 53859-9 ####[facility] [id number] [place] [address] [facility] [place] HIV immunoassay testing algorithm interpretation (S/P/Bld) [Interp] Normal [facility] Comment on above: Order Comment: Speci men Type: BLOOD SPECIMENOrdering Facility: [facility] Address: [address] [place] [address] Result Comment: No e vidence of HIV-1 or HIV-2 infection. Should recent infection be suspected, repeat testing may be considered 2-3 weeks after this draw. [place] Rev. Code 3701.243(E): This information has been [...] diagnoses. Performed By: #### 3 1201-7, 5195-3, 59129-8, 61523-9, 09150-3 ####[facility] LABIA [id number] [place] [address] [facility] [place] HbA1c (Bld)on 01-05-2025 Average glucose Estimated from glycated hemoglobin (Bld) [Mass/Vol] 220 mg/dL Normal [facility] Comment on above: Order Comment: Speci men Type: BLOOD SPECIMEN [facility] Address: [address] [place] [address] Result Comment: eAG: (Estimated average glucose) is a calculated value from HgbA1c and is jewelry sales representative of the average blood glucose level in the last 2-3 month period. Performed By: #### 5 5454-3 #### [facility] CLIA [id number] [address] [place] [address] [place] HbA1c (Bld) [Mass fraction] 9.3 % High 4.3-5.6 [facility] Comment on above: Order Comment: Speci men Type: BLOOD SPECIMEN [facility] Address: [address] [place] [address], [place] [id number] Result Comment: [place] Diabetes Association guidelines indicate that patients with HgbA1c in the range 5.7-6.4% are at increased risk for development of diabetes, and intervention by lifestyle modification may be beneficial. HgbA1c greater or equal to 6.5% is considered diagnostic of diabetes. Performed By: #### 5 5454-3 #### [facility] CLIA [id number] [address] [place] [address] [place] Reagin and Treponema pallidu m IgG and IgM [Interp]on 01-05-2025 T. pallidum IgG+IgM IA Ql (S) Non-Reactive Normal Nonreactive [facility] Comment on above: Order Comment: Se mendoza Type: BLOOD SPECIMENOrdering Facility: [facility] Address: [address] [place] [address] Performed By: #### 3 1201-7, 5195-3, 99515-5, 46652-6, 35372-4 ####[facility] LABCLIA [id number] [place] [address] [place] Reagin+T pallidum IgG+IgM Se rPl-Impon 01-05-2025 Reagin and Treponema pallidum IgG and IgM [Interp] Cannot exclude recent Treponemal infection if specimen collected within 7-10 days after appearance of suspect lesions or 2-3 weeks after an exposure. Clinical correlation is required. Normal [facility] Comment on above: Order Comment: Se mendoza Type: BLOOD SPECIMENOrdering Facility: [facility] Address: [address] [place] [address] Performed By: #### 3 1201-7, 5195-3, 04593-6, 17406-8, 19053-7 ####[facility] LABCLIA [id number] [place] [address] [place] T3 SerPl-mCncon 01-05-2025 T3 [Mass/Vol] 140 ng/dL Normal 79-165 [facility] Comment on above: Order Comment: Speci men Type: URINE SPECIMEN [facility] Address: [address] [place] [address] Performed By: #### L [id number] #### [facility] CLIA [id number] [address] [place] [address] [place] T3Free SerPl-mCncon 01-05-20 25 Free T3 [Mass/Vol] 3.4 pg/mL Normal 2.3-4.1 [facility] Comment on above: Order Comment: Speci men Type: URINE SPECIMEN Ordering Facility: [facility] Address: [address] [place] [address] Performed By: #### L [id number] #### [facility] CLIA [id number] [address] [place] [address] [place] T4 Free SerPl-mCncon 025 Free T4 [Mass/Vol] 1.1 ng/dL Normal 0.9-1.7 [facility] Comment on above: Order Comment: Speci men Type: URINE SPECIMEN [facility]: [facility] Address: [address] [place] [address] Performed By: #### L [id number] #### [facility] CLIA [id number] [address] [place] [address] [place] T4 SerPl-mCncon 01-05-2025 T4 [Mass/Vol] 7.7 ug/dL Normal 5.5-10.2 [facility] Comment on above: Order Comment: Speci men Type: URINE SPECIMEN [facility]ing [facility]: [facility] Address: [address] [place] [address] Performed By: #### L [id number] #### [facility] CLIA [id number] [address] [place] [address] [place] TSH SerPl-aCncon 01-05-2025 TSH Qn 1.020 m[IU]/L Normal 0.270-4.200 [facility] Comment on above: Order Comment: Speci men Type: URINE SPECIMEN [facility] Address: [address] [place] [address] Performed By: #### L [id number] #### [facility] CLIA [id number] [address] [place] [address] OF [place] CNOVon 12-28-2024 CNOV Office Visit (FAMWS ) -- WESTON GAMEZ ([id number]) 1985 M T Date Time Provider Department 12/28/24 10:20 AM [facility] [facility] During your visit today, we recorded the following information about you: Pulse Blood pressure Weight 94/minute 128/84 69.4 kg Austin Camarena, MOTOR ELECTRICIAN.HYDROELECTRIC SYSTEMS TECHNICIAN 12/28/2024 12:05 PM Signed Chief Complaint No [...] daily once tox screen results. Austin Camarena APRN.HYDROELECTRIC SYSTEMS TECHNICIAN Allergies As of Date: 12/28/2024 (No Known Allergies) Date Reviewed: 12/28/2024 Reviewed by: Lisseth Morel MA - Fully Assessed Reason for Visit: Follow Up [171] Primary Visit Diagnosis:Medication management [Z79.899] Other Visit Diagnosis:ADHD (attention deficit hyperactivity disorder), predominantly hyperactive impulsive type [F90.1] Order(s):TOXICOLO (more content not included)... Normal [facility] QUANT TOX PANELon 12-28-2024 9-Pambyojaqw-8,5-Dime thyl-3,3-Diphenylpyrr olidine (EDDP) Confirm (U) [Mass/Vol] <25 Normal <25 [facility] Comment on above: Order Comment: Speci men Type: URINE SPECIMEN [facility] Address: [address] [place] [address] Result Comment: 2-Kjpdauwqcr-3,2-goagnohu-4,3-diphenylpyrrolidine (EDDP) is a metabolite of methadone. Performed By: #### L [id number] #### [facility] CLIA [id number] [address] [place] [address] [place] 6-Monoacetylmorphine (6-BAL) (U) [Mass/Vol] <5 Normal <5 [facility] Comment on above: Order Comment: Speci men Type: URINE SPECIMEN [facility] Address: [address] [place] [address] Result Comment: 6-Mo noacetylmorphine is a metabolite of heroin. Performed By: #### L [id number] #### [facility] CLIA [id number] [address] [place] [address] [place] Amphetamine Confirm (U) [Mass/Vol] <25 Normal <25 [facility] Comment on above: Order Comment: Speci men Type: URINE SPECIMEN [facility] Address: [address] [place] [address] Result Comment: Meth ylphenidate does not contain or metabolize to amphetamine. Performed By: #### L [id number] #### [facility] CLIA [id number] [address] [place] [address] [place] Benzoylecgonine Confirm (U) [Mass/Vol] <25 Normal <25 [facility] Comment on above: Order Comment: Speci men Type: URINE SPECIMEN [facility] Address: [address] [place] [address] Result Comment: Igor oylecgonine is a metabolite of cocaine. Performed By: #### L [id number] #### [facility] CLIA [id number] [address] [place] [address] [place] Buprenorphine (U) [Mass/Vol] <5 Normal <5 [facility] Comment on above: Order Comment: Speci men Type: URINE SPECIMEN [facility]: [facility] Address: [address] [place] [address] Result Comment: Bertha ents using transdermal formulations of buprenorphine may yield undetectable buprenorphine and norbuprenorphine urine concentrations. Performed By: #### L [id number] #### [facility] CLIA [id number] [address] [place] [address] [place] Carboxy tetrahydrocannabinol (U) [Mass/Vol] 75 ng/mL High <10 [facility] Comment on above: Order Comment: Speci men Type: URINE SPECIMEN [facility] Address: [address] [place] [address] Result Comment: 11-N su-4-ollubgr-tetrahydrocannabinol (guuyy-1-fcrecpw-THC) is a metabolite of fvrlp-9-wypuvafogjypizhobwol (THC). Presence of ubdsb-9-kkygrji-THC is consistent with use of a THC-containing drug. This test does not differentiate between delta-8 or delta-9 carboxy-THC. Performed By: #### L [id number] #### [facility] CLIA [id number] [address] [place] [address] [place] Codeine Confirm (U) [Mass/Vol] <25 Normal <25 [facility] Comment on above: Order Comment: Speci men Type: URINE SPECIMEN [facility]ing Facility: [facility] Address: [address] [place] [address] Performed By: #### L [id number] #### [facility] CLIA [id number] [address] [place] [address] [place] fentaNYL Confirm (U) [Mass/Vol] <1 Normal <1 [facility] Comment on above: Order Comment: Speci men Type: URINE SPECIMEN [facility] Address: [address] [place] [address] Performed By: #### L [id number] #### [facility] CLIA [id number] [address] [place] [address] [place] HYDROcodone Confirm (U) [Mass/Vol] <25 Normal <25 [facility] Comment on above: Order Comment: Speci men Type: URINE SPECIMEN [facility] Address: [address] [place] [address] Performed By: #### L [id number] #### [facility] CLIA [id number] [address] [place] [address] [place] HYDROmorphone Confirm (U) [Mass/Vol] <25 Normal <25 [facility] Comment on above: Order Comment: Speci men Type: URINE SPECIMEN [facility]ing [facility]: [facility] Address: [address] [place] [address] Performed By: #### L [id number] #### [facility] CLIA [id number] [address] [place] [address] [place] MDA, UR <25 Normal <25 [facility] Comment on above: Order Comment: Speci men Type: URINE SPECIMEN Ordering Facility: [facility] Address: [address] [place] [address] Result Comment: 3,4 Methylenedioxyamphetamine is also known as MDA. Performed By: #### L [id number] #### [facility] CLIA [id number] [address] [place] [address] [place] MDEA, UR <25 Normal <25 [facility] Comment on above: Order Comment: Speci men Type: URINE SPECIMEN Ordering Facility: [facility] Address: [address] [place] [address] Result Comment: 3,4 Dzeccxbwhtnqdk-S-fjpwbftedwfckxfd is also known as MDEA. Performed By: #### L [id number] #### [facility] CLIA [id number] [address] [place] [address] [place] MDMA, UR <25 Normal <25 [facility] Comment on above: Order Comment: Speci men Type: URINE SPECIMEN Ordering Facility: [facility] Address: [address] [place] [address] Result Comment: 3,4- Methylenedioxymethamphetamine is also known as MDMA. Performed By: #### L [id number] #### [facility] CLIA [id number] [address] [place] [address] [place] Methadone Confirm (U) [Mass/Vol] <25 Normal <25 [facility] Comment on above: Order Comment: Speci men Type: URINE SPECIMEN [facility] Address: [address] [place] [address] Performed By: #### L [id number] #### [facility] CLIA [id number] [address] [place] [address] [place] Methamphetamine Confirm (U) [Mass/Vol] <25 Normal <25 [facility] Comment on above: Order Comment: Speci men Type: URINE SPECIMEN Ordering Facility: [facility] Address: [address] [place] [address] Performed By: #### L [id number] #### [facility] CLIA [id number] [address] [place] [address] [place] Morphine Confirm (U) [Mass/Vol] <25 Normal <25 [facility] Comment on above: Order Comment: Speci men Type: URINE SPECIMEN Ordering Facility: [facility] Address: [address] [place] [address] Performed By: #### L [id number] #### [facility] CLIA [id number] [address] [place] [address] [place] Norbuprenorphine (U) [Mass/Vol] <10 Normal <10 [facility] Comment on above: Order Comment: Speci men Type: URINE SPECIMEN Ordering Facility: [facility] Address: [address] [place] [address] Result Comment: Norb uprenorphine is a metabolite of buprenorphine. Patients using transdermal formulations of buprenorphine may yield undetectable buprenorphine and norbuprenorphine urine concentrations. Performed By: #### L [id number] #### [facility] CLIA [id number] [address] [place] [address] [place] Norfentanyl Confirm (U) [Mass/Vol] <1 Normal <1 [facility] Comment on above: Order Comment: Speci men Type: URINE SPECIMEN Ordering Facility: [facility] Address: [address] [place] [address] Result Comment: Norf entanyl is a metabolite of fentanyl. Performed By: #### L [id number] #### [facility] CLIA [id number] [address] [place] [address] [place] NORHYDROCODONE, UR <25 Normal <25 [facility] Comment on above: Order Comment: Speci men Type: URINE SPECIMEN Ordering Facility: [facility] Address: [address] [place] [address] Result Comment: Norh ydrocodone is a metabolite of hydrocodone. Performed By: #### L [id number] #### [facility] CLIA [id number] [address] [place] [address] [place] NOROXYCODONE, UR <25 Normal <25 [facility] Comment on above: Order Comment: Speci men Type: URINE SPECIMEN Ordering Facility: [facility] Address: [address] [place] [address] Result Comment: Noro xycodone is a metabolite of oxycodone. Performed By: #### L [id number] #### [facility] CLIA [id number] [address] [place] [address] [place] NOROXYMORPHONE, UR <25 Normal <25 [facility] Comment on above: Order Comment: Speci men Type: URINE SPECIMEN Ordering Facility: [facility] Address: [address] [place] [address] Result Comment: Noro xymorphone is a metabolite of oxymorphone and oxycodone and a minor metabolite of naltrexone and naloxone. Performed By: #### L [id number] #### [facility] CLIA [id number] [address] [place] [address] [place] Nortramadol (U) [Mass/Vol] <25 Normal <25 [facility] Comment on above: Order Comment: Speci men Type: URINE SPECIMEN Ordering Facility: [facility] Address: [address] [place] [address] Result Comment: O-de smethyltramadol is a metabolite of tramadol. Performed By: #### L [id number] #### [facility] CLIA [id number] [address] [place] [address] [place] NOTE, UR TOXICOLOGY PANEL Normal [facility] Comment on above: Order Comment: Speci men Type: URINE SPECIMEN Ordering Facility: [facility] Address: [address] [place] [address] Result Comment: For medical purposes only. Not valid for legal or forensic purposes. This test was developed, and its performance characteristics determined by the [facility] Department of Pathology and Laboratory Medicine. It has not been cleared or approved by the FDA. The [facility] Department of Pathology and Laboratory Medicine is regulated under CLIA as qualified to perform high-complexity testing. This test is used for clinical purposes. It should not be regarded as investigational or for research. Performed By: #### L [id number] #### [facility] CLIA [id number] [address] [place] [address] [place] oxyCODONE Confirm (U) [Mass/Vol] <25 Normal <25 [facility] Comment on above: Order Comment: Speci men Type: URINE SPECIMEN Ordering Facility: [facility] Address: [address] [place] [address] Performed By: #### L [id number] #### [facility] CLIA [id number] [address] [place], [place] [address] [place] oxyMORphone Confirm (U) [Mass/Vol] <25 Normal <25 [facility] Comment on above: Order Comment: Speci men Type: URINE SPECIMEN Ordering Facility: [facility] Address: [address] [place] [address] Performed By: #### L [id number] #### [facility] CLIA [id number] [address] [place] [address] [place] Phencyclidine Confirm (U) [Mass/Vol] <10 Normal <10 [facility] Comment on above: Order Comment: Speci men Type: URINE SPECIMEN Ordering Facility: [facility] Address: [address] [place] [address] Result Comment: Phen cyclidine is also known as PCP. Performed By: #### L [id number] #### [facility] CLIA [id number] [address] [place] [address] [place] PHENTERMINE, UR <25 Normal <25 [facility] Comment on above: Order Comment: Speci men Type: URINE SPECIMEN Ordering Facility: [facility] Address: [address] [place] [address] Performed By: #### L [id number] #### [facility] CLIA [id number] [address] [place] [address] [place] traMADol Confirm (U) [Mass/Vol] <25 Normal <25 [facility] Comment on above: Order Comment: Speci men Type: URINE SPECIMEN Ordering Facility: [facility] Address: [address] [place] [address] Performed By: #### L [id number] #### [facility] CLIA [id number] [address] [place] [address] [place] SPECIMEN VALIDITY, URINEon 0 2- CREATININE,URINE 288.8 mg/dL Normal 20.0-300.0 [facility] Comment on above: Order Comment: Speci men Type: URINE SPECIMEN Ordering Facility: [facility] Address: [address] [place] [address] Performed By: #### L [id number] #### [facility] CLIA [id number] [address] [place] NITRITES,URINE 52 mg/L Normal <500 [facility] Comment on above: Order Comment: Speci men Type: URINE SPECIMEN Ordering Facility: [facility] Address: [address] [place], [place] [address] Performed By: #### L [id number] #### [facility] CLIA [id number] [address] [place], [place] [address] [place] OXIDANTS,URINE <38 Normal <200 [facility] Comment on above: Order Comment: Speci men Type: URINE SPECIMEN Ordering Facility: [facility] Address: [address] [place] [address] Performed By: #### L [id number] #### [facility] CLIA [id number] [address] [place], [place] [address] [place] pH (U) 5.7 [pH] Normal 4.5-8.0 [facility] Comment on above: Order Comment: Speci men Type: URINE SPECIMEN Ordering Facility: [facility] Address: [address] [place] [address] Performed By: #### L [id number] #### [facility] CLIA [id number] [address] [place], [place] [address] [place] SPEC GRAVITY,UR 1.024 Normal 1.003-1.035 [facility] Comment on above: Order Comment: Speci men Type: URINE SPECIMEN Ordering Facility: [facility] Address: [address] [place], [place] [address] Performed By: #### L [id number] #### [facility] CLIA [id number] [address] [place], [place] [address] [place] SPECIMEN VALIDITY QUALITY Specimen quality results within acceptable limits Normal [facility] Comment on above: Order Comment: Speci men Type: URINE SPECIMEN Ordering Facility: [facility] Address: [address] [place] [address] Performed By: #### L [id number] #### [facility] CLIA [id number] [address] [place] [address] [place] TOXICOLOGY SCREEN, ROUTINE U RINEon 12-28-2024 Amphetamines Confirm (U) [Mass/Vol] Negative Normal Negative [facility] Comment on above: Order Comment: Speci men Type: URINE SPECIMENOrdering Facility: [facility] Address: [address] [place] [address] Result Comment: Cuto ff threshold at 1000 ng/mL. Performed By: #### U TOX2 ####[facility] [id number] [place] [address] [place] BARBITURATES, URINE Negative Normal Negative [facility] Comment on above: Order Comment: Speci men Type: URINE SPECIMENOrdering Facility: [facility] Address: [address] [place] [address] Result Comment: Cuto ff threshold at 200 ng/mL. Performed By: #### U TOX2 ####[facility] [id number] [place] [address] [place] BENZODIAZEPINES, UR Negative Normal Negative [facility] Comment on above: Order Comment: Speci men Type: URINE SPECIMENOrdering Facility: [facility] Address: [address] [place] [address] Result Comment: Cuto ff threshold at 200 ng/mL. Performed By: #### U TOX2 ####[facility] [id number] [place] [address] [place] Cannabinoids Screen Ql (U) Positive Abnormal Negative [facility] Comment on above: Order Comment: Speci men Type: URINE SPECIMENOrdering Facility: [facility] Address: [address] [place] [address] Result Comment: Cuto ff threshold at 50 ng/mL. Performed By: #### U TOX2 ####[facility] [id number] [place] [address] [place] Cocaine Ql (U) Negative Normal Negative [facility] Comment on above: Order Comment: Speci men Type: URINE SPECIMENOrdering Facility: [facility] Address: [address] [place] [address] Result Comment: Cuto ff threshold at 300 ng/mL. Performed By: #### U TOX2 ####[facility] [id number] [place] [address] [place] Ethanol (U) [Mass/Vol] <11 Normal <11 [facility] Comment on above: Order Comment: Speci men Type: URINE SPECIMENOrdering Facility: [facility] Address: [address] [place] [address] Performed By: #### U TOX2 ####[facility] [id number] [place] [address] [place] Opiates Screen Ql (U) Negative Normal Negative [facility] Comment on above: Order Comment: Speci men Type: URINE SPECIMENOrdering Facility: [facility] Address: [address] [place] [address] Result Comment: Cuto ff threshold at 300 ng/mL. Performed By: #### U TOX2 ####[facility]IA [id number] [place] [address] [place] oxyCODONE cutoff Screen (U) [Mass/Vol] Negative Normal Negative [facility] Comment on above: Order Comment: Speci men Type: URINE SPECIMENOrdering Facility: [facility] Address: [address] [place] [address] Result Comment: Cuto ff threshold at 100 ng/mL. Performed By: #### U TOX2 ####[facility]IA [id number] [place] [address] [place] Phencyclidine Ql (U) Negative Normal Negative [facility] Comment on above: Order Comment: Speci men Type: URINE SPECIMENOrdering Facility: [facility] Address: [address] [place] [address] Result Comment: Cuto ff threshold at 25 ng/mL. Performed By: #### U TOX2 ####[facility]IA [id number] [address] [place] [address] [facility] [place] CNOVon 12-11-2024 CNOV Office Visit (FAMPWS ) -- WESTON GAMEZ ([id number]) 1985 M [facility] Date Time Provider Department 12/11/24 9:20 AM AUSTIN CAMARENA During your visit today, we recorded the following information about you: Pulse Respiration Blood pressure Weight 89/minute 14/minute 124/88 70.8 kg Austin Camarena APRN.HYDROELECTRIC SYSTEMS TECHNICIAN 12/11/2024 9:21 AM Signed Chief Complaint Patient [...] - LISINOPRIL 20 MG TABLET Austin Camarena APRN.HYDROELECTRIC SYSTEMS TECHNICIAN Allergies As of Date: 12/11/2024 (No Known Allergies) Date Reviewed: 12/11/2024 Reviewed by: Lisseth Morel MA - Fully Assessed Reason for Visit: Follow Up [171] Primary Visit Diagnosis:ADHD (attention deficit hyperactivity disorder), predominantly hyperactive impulsive type [F90.1] Other Visit Diagnosis:Primary hypertension [I10] Order(s):atomoxetine (STRATTERA) 40 mg capsuleTake 1 capsule by (more content not included)... Normal [facility] CNOVon 11-27-2024 CNOV Office Visit (FAMPWS ) -- WESTON GAMEZ ([id number]) 1985 M T Date Time Provider Department 11/27/24 4:00 PM AUSTIN CAMARENA During your visit today, we recorded the following information about you: Pulse Respiration Blood pressure Weight 92/minute 14/minute 135/85 70.8 kg Austin Camarena APRN.HYDROELECTRIC SYSTEMS TECHNICIAN 11/27/2024 3:58 PM Signed Chief Complaint Patient [...] for re-eval. - ATOMOXETINE 10 MG CAPSULE KEN Geller Danielle, APRN.CNP 11/27/2024 3:46 PM Signed [facility] - Insurance Therapy/Counseling [facility] [address] [place] [address] [facility] [address] [place] [address] [employer] [address] [address] [facility] [address], [address] [place] [address] [facility] O[facility] [address] [place] [address] [facility] [address] [place], [place] [address] [employer] [address] [place] [address] 3 (more content not included)... Normal [facility]STON [facility]AME[facility] ([id number]) 1985 M [facility] Date Time Provider Department 11/24/24 [facility] During your visit today, we recorded the following information about you: Austin Camarena APRN.HYDROELECTRIC SYSTEMS TECHNICIAN 11/24/2024 10:52 AM Signed Please let patient know his hgba1c is 10.6. Patient should follow up with endocrinology. His other labs are stable. Lisseth Morel MA 11/24/2024 3:13 PM Signed Pt notified and verbalized understanding Lisseth Morel MA Allergies As of Date: 11/24/2024 (No Known Allergies) Date Reviewed: 10/27/2024 Reviewed by: Prakash Fontana OD - Fully Assessed Reason for Visit: [...] [E13.9] 06/09/2021 Diagnosed: 10/15/2023 Encounter Status:Closed by WORKLISSETH PEREIRA CMA on 11/24/24 Normal [facility] Endocrinology Visit Reporton 11-22-2024 Endocrinology Visit Report [facility] [address] [place] [address] OFFICE VISIT Date of Service: 11/22/24 MR#: [id number] Acct: [id number] Name: WESTON GAMEZ Rep #: [id number] : 1985 Provider: JIE phelan Age/Sex: 39/M [place] [facility] Status: Signed Intake Vital Signs 07/05/24 10:09 [...] FU R/S 10/04 Chief Complaint: f/u diabetes Guyline Operator Required: No Accompanied by: Is patient [...] subcutaneous infusion .continuous U-100 Insulin) #45 mL PFSH Medical History Gastroparesis Former tobacco use [...] alignment nor (more content not included)... Normal [facility] Basic metabolic 2000 panelon 11-20-2024 Anion gap [Moles/Vol] 8 mmol/L Normal 8-15 [facility] Comment on above: Order Comment: Speci men Type: BLOOD SPECIMENOrdering Facility: [facility] Address: [address] [place] [address] Performed By: #### 2 4321-2 ####[facility] MILLTOWNCLIA [id number] [place] [address] [place] Calcium [Mass/Vol] 9.4 mg/dL Normal 8.5-10.2 [facility] Comment on above: Order Comment: Speci men Type: BLOOD SPECIMENOrdering Facility: [facility] Address: [address] [place] [address] Performed By: #### 2 4321-2 ####[facility] MILLTOWNCLIA [id number] [place] [address] [place] Chloride [Moles/Vol] 100 mmol/L Normal 98-107 [facility] Comment on above: Order Comment: Speci men Type: BLOOD SPECIMENOrdering Facility: [facility] Address: [address] [place] [address] Performed By: #### 2 4321-2 ####[facility] [id number] [place] [address] [place] CO2 [Moles/Vol] 26 mmol/L Normal 22-30 [facility] Comment on above: Order Comment: Speci men Type: BLOOD SPECIMENOrdering Facility: [facility] Address: [address] [place] [address] Performed By: #### 2 4321-2 ####[facility] MILLTOWNCLIA [id number] [place] [address] [place] Creatinine [Mass/Vol] 0.93 mg/dL Normal 0.73-1.22 [facility] Comment on above: Order Comment: Speci men Type: BLOOD SPECIMENOrdering Facility: [facility] Address: [address] [place] [address] Performed By: #### 2 4321-2 ####[facility] MILLTOWNCLIA [id number] [place] [address] [place] Creatinine and Glomerular filtration rate.predicted panel (S/P/Bld) 107 mL/min/1.73m??? Normal >=60 [facility] Comment on above: Order Comment: Se mendoza Type: BLOOD SPECIMENOrdering Facility: [facility] Address: [address] [place] [address] Result Comment: Beverly mated Glomerular Filtration Rate [...] actual GFR. Performed By: #### 2 4321-2 ####[facility] [id number] [place] [address] [place] Glucose [Mass/Vol] 268 mg/dL High 74-99 [facility] Comment on above: Order Comment: Se mendoza Type: BLOOD SPECIMENOrdering Facility: [facility] Address: [address] [place] [address] Result Comment: The [place] Diabetes Association (ADA) provides guidance for cutoff [...] Standards of Medical Care in Diabetes 2016, [place] Diabetes Association. Diabetes Care. 2016.39(Suppl 1). Performed By: #### 2 4321-2 ####[facility] [id number] [place] [address] [place] Potassium [Moles/Vol] 4.3 mmol/L Normal 3.7-5.1 [facility] Comment on above: Order Comment: Speci men Type: BLOOD SPECIMENOrdering Facility: [facility] Address: [address] [place] [address] Performed By: #### 2 4321-2 ####[facility] [id number] [place] [address] [place] Sodium [Moles/Vol] 134 mmol/L Low 136-144 [facility] Comment on above: Order Comment: Speci men Type: BLOOD SPECIMENOrdering Facility: [facility] Address: [address] [place] [address] Performed By: #### 2 4321-2 ####[facility] [id number] [place] [address] [place] Urea nitrogen [Mass/Vol] 20 mg/dL Normal 9-24 [facility] Comment on above: Order Comment: Speci men Type: BLOOD SPECIMENOrdering Facility: [facility] Address: [address] [place] [address] Performed By: #### 2 4321-2 ####[facility] [id number] [place] [address] [place] HbA1c (Bld)on 11-20-2024 Average glucose Estimated from glycated hemoglobin (Bld) [Mass/Vol] 258 mg/dL Normal [facility] Comment on above: Order Comment: Speci men Type: URINE SPECIMEN Ordering Facility: [facility] Address: [address] [place] [address] Result Comment: eAG: (Estimated average glucose) is a calculated value from HgbA1c and is jewelry sales representative of the average blood glucose level in the last 2-3 month period. Performed By: #### L [id number] #### [facility] CLIA [id number] [address] [place] [address] [place] HbA1c (Bld) [Mass fraction] 10.6 % High 4.3-5.6 [facility] Comment on above: Order Comment: Speci men Type: URINE SPECIMEN Ordering Facility: [facility] Address: [address] [place] [address] Result Comment: Gabby [place] Diabetes Association guidelines indicate that patients with HgbA1c in the range 5.7-6.4% are at increased risk for development of diabetes, and intervention by lifestyle modification may be beneficial. HgbA1c greater or equal to 6.5% is considered diagnostic of diabetes. Performed By: #### L [id number] #### [facility] CLIA [id number] [address] [place] [address] [place] [facility] Lipid 1996 panelon 5 Cholesterol [Mass/Vol] 129 mg/dL Normal <200 [facility] Comment on above: Order Comment: Speci men Type: BLOOD SPECIMENOrdering Facility: [facility] Address: [address] [place] [address] Result Comment: <200 mg/dL, Desirable 200-239 mg/dL, Borderline high >239 mg/dL, High Performed By: #### 2 4331-1 ####[facility]CLIA [id number] [id number] [place] [address] [place] Cholesterol in HDL [Mass/Vol] 34 mg/dL Low >39 [facility] Comment on above: Order Comment: Speci men Type: BLOOD SPECIMENOrdering Facility: [facility] Address: [address] [place] [address] Result Comment: 40-5 9 mg/dL, Acceptable >59 mg/dL, High: Negative risk factor for coronary heart disease <40 mg/dL, Low: Positive risk factor for coronary heart disease Performed By: #### 2 4331-1 ####[facility] LABCLIA [id number] [address] [id number] [place] [address] [place] Cholesterol in LDL [Mass/Vol] 57 mg/dL Normal <100 [facility] Comment on above: Order Comment: Speci men Type: BLOOD SPECIMENOrdering Facility: [facility] Address: [address] [place] [address] Result Comment: <100 mg/dL, Optimal 100-129 mg/dL, Near optimal/above optimal 130-159 mg/dL, Borderline high 160-189 mg/dL, High >189 mg/dL, Very high Secondary prevention optimal LDL Cholesterol levels are recommended to be < 70 mg/dL Performed By: #### 2 4331-1 ####[facility] LABCLIA [id number] [id number] [place] [address] [place] Cholesterol in LDL/Cholesterol in HDL [Mass ratio] 1.68 {ratio} Normal <2.54 [facility] Comment on above: Order Comment: Speci men Type: BLOOD SPECIMENOrdering Facility: [facility] Address: [address] [place] [address] Result Comment: Roxy larson: 1. National Cholesterol Education Program ATP III Guideline At-A-Glance Quick Desk Reference: National Heart, Lung, and Blood [place]. National Institutes of Health. 2001: NIH Publication No. 01-3305. 2. An International Atherosclerosis Society position paper: global recommendations for the management of dyslipidemia: executive summary, Atherosclerosis. 2014: 232(2):410-413. Performed By: #### 2 4331-1 ####[facility] LABCLIA [id number] [address] [id number] [address] [place] Cholesterol in VLDL [Mass/Vol] 38 mg/dL High <30 [facility] Comment on above: Order Comment: Speci men Type: BLOOD SPECIMENOrdering Facility: [facility] Address: [address] [place] [address] Performed By: #### 2 4331-1 ####[facility] LABCLIA [id number] [address] [id number] [place] [address] [place] Cholesterol non HDL [Mass/Vol] 95 mg/dL Normal <130 [facility] Comment on above: Order Comment: Speci men Type: BLOOD SPECIMENOrdering Facility: [facility] Address: [address] [place] [address] Result Comment: <130 mg/dL, Optimal 130-159 mg/dL, Near optimal/above optimal 160-189 mg/dL, Borderline high 190-219 mg/dL, High >219 mg/dL, Very high Secondary prevention optimal non HDL Cholesterol levels are recommended to be <100 mg/dL Performed By: #### 2 4331-1 ####[facility] LABCLIA [id number] [id number] [place] [address] [place] Cholesterol.total/Cho lesterol in HDL [Mass ratio] 3.79 {ratio} Normal <5.10 [facility] Comment on above: Order Comment: Speci men Type: BLOOD SPECIMENOrdering Facility: [facility] Address: [address] [place] [address] Performed By: #### 2 4331-1 ####[facility] LABCLIA [id number] [address] [id number] [place] [address] [place] FASTING TIME 10 hrs Normal [facility] Comment on above: Order Comment: Speci men Type: BLOOD SPECIMENOrdering Facility: [facility] Address: [facility] [place] [address] Performed By: #### 2 4331-1 ####[facility] LABCLIA [id number] [address] [id number] [place] [address] [place] Triglyceride [Mass/Vol] 188 mg/dL High <150 [facility] Comment on above: Order Comment: Speci men Type: BLOOD SPECIMENOrdering Facility: [facility] Address: [address] [place] [address] Result Comment: <150 mg/dL, Normal 150-199 mg/dL, Borderline high 200-499 mg/dL, High >499 mg/dL, Very high Performed By: #### 2 4331-1 ####[facility] LABCLIA [id number] [address] [id number] [place] [address] [place] 12 Lead EKGon 10-28-2024 12 Lead EKG [facility] [address] [place] [address] 12 Lead EKG 10/28/24 1428 MR#: [id number] Acct: [id number] Name: WESTON GAMEZ Rep #: [id number] : 1985 39 From: Galindo Crawley MD [...] abnormality Abnormal ECG Confirmed by TRAE IVERSON, AGLINDO ([id number]), editor greeting card AUTUMN SINGH ([id number]) on 10/30/2024 7:05:56 AM Referred By: Confirmed By: GALINDO CRAWLEY MD 10/30/2405 Date Galindo Crawley MD CC: SENIOR INVESTMENT ANALYST-C Austin Camarena; Dr. Ludin Sanderson MD Signed Normal [facility] Absolute neutrophil countOrd ered By: Ludin Sanderson on 10-28-2024 Neutrophils (Bld) [#/Vol] 9.8 10*3/uL High 2.0-7.7 [facility] Acetone Serumon 10-28-2024 ACETONE SERUM Negative Normal NEG [facility] Comment on above: Performed By: #### L 500.2500 #### [facility] [address] [place], [address] Acetone [Mass/Vol]Ordered By : Ludin Sanderson on 10-28-2024 Acetone Level Negative NEG [facility] Albumin to globulin ratioOrd ered By: Ludin Sanderson on 10-28-2024 Albumin/Globulin [Mass ratio] 0.8 {ratio} Low 0.9-2.4 [facility] Basic Metabolic Profile (BMP )on 10-28-2024 BUN Normal 7-18 [facility] Comment on above: Result Comment: DUP PER RN LORILI Performed By: #### L 500.2500 #### [facility] [address] [place], [address] BUN/CRE Normal 10-20 [facility] Comment on above: Result Comment: DUP PER RN LORILI Performed By: #### L 500.2500 #### [facility] [address] [place], [address] CA,Total Normal 8.5-10.1 [facility] Comment on above: Result Comment: DUP PER RN LORILI Performed By: #### L 500.2500 #### [facility] [address] [place], [address] CL Normal 98-107 [facility] Comment on above: Result Comment: DUP PER RN LORILI Performed By: #### L 500.2500 #### [facility] [address] [place], [address] CO2 Normal 21.0-32.0 [facility] Comment on above: Result Comment: DUP PER RN LORILI Performed By: #### L 500.2500 #### [facility] [address] [place], [address] CREAT,SERUM Normal 0.70-1.30 [facility] Comment on above: Result Comment: DUP PER RN LORILI Performed By: #### L 500.2500 #### [facility] [address] [place], [address] EST GFR Normal >60 [facility] Comment on above: Result Comment: DUP PER RN LORILI Performed By: #### L 500.2500 #### [facility] [address] [place], [address] EST GFR - AA Normal >60 [facility] Comment on above: Result Comment: DUP PER RN LORILI Performed By: #### L 500.2500 #### [facility] [address] [place], [address] GAP Normal 5-15 [facility] Comment on above: Result Comment: DUP PER RN LORILI Performed By: #### L 500.2500 #### [facility] [address] [place], [address] GLU Normal 74-106 [facility] Comment on above: Result Comment: DUP PER RN LORILI Performed By: #### L 500.2500 #### [facility] [address] [place], [address] Potassium Normal 3.5-5.1 [facility] Comment on above: Result Comment: DUP PER RN LORILI Performed By: #### L 500.2500 #### [facility] [address] [place], [address] Basic Metabolic Profile (BMP) Normal 136-145 [facility] Comment on above: Result Comment: DUP PER RN ANTON Performed By: #### L 500.2500 #### [facility] [address] [place], [address] BUN Normal 7-18 [facility] Comment on above: Result Comment: LIPA SE ADDED TO ORDER NUMBER [id number], BMP IS A DUP TO A CMP Performed By: #### L 500.2500 ####[facility] [address] [place], [address] BUN/CRE Normal 10-20 [facility] Comment on above: Result Comment: LIPA SE ADDED TO ORDER NUMBER [id number], BMP IS A DUP TO A CMP Performed By: #### L 500.2500 ####[facility] [address] [place], [address] CA,Total Normal 8.5-10.1 [facility] Comment on above: Result Comment: LIPA SE ADDED TO ORDER NUMBER [id number], BMP IS A DUP TO A CMP Performed By: #### L 500.2500 ####[facility] [address] [place], [address] CL Normal 98-107 [facility] Comment on above: Result Comment: LIPA SE ADDED TO ORDER NUMBER [id number], BMP IS A DUP TO A CMP Performed By: #### L 500.2500 ####[facility] [address] [place], [address] CO2 Normal 21.0-32.0 [facility] Comment on above: Result Comment: LIPA SE ADDED TO ORDER NUMBER [id number], BMP IS A DUP TO A CMP Performed By: #### L 500.2500 ####[facility] [address] [place], [address] CREAT,SERUM Normal 0.70-1.30 [facility] Comment on above: Result Comment: LIPA SE ADDED TO ORDER NUMBER [id number], BMP IS A DUP TO A CMP Performed By: #### L 500.2500 ####[facility] [address] [place], [address] EST GFR Normal >60 [facility] Comment on above: Result Comment: LIPA SE ADDED TO ORDER NUMBER [id number], BMP IS A DUP TO A CMP Performed By: #### L 500.2500 ####[facility] [address] [place], [address] EST GFR - AA Normal >60 [facility] Comment on above: Result Comment: LIPA SE ADDED TO ORDER NUMBER [id number], BMP IS A DUP TO A CMP Performed By: #### L 500.2500 ####[facility] [address] [place], [address] GAP Normal 5-15 [facility] Comment on above: Result Comment: LIPA SE ADDED TO ORDER NUMBER [id number], BMP IS A DUP TO A CMP Performed By: #### L 500.2500 ####[facility] [address] [place], [address] GLU Normal 74-106 [facility] Comment on above: Result Comment: LIPA SE ADDED TO ORDER NUMBER [id number], BMP IS A DUP TO A CMP Performed By: #### L 500.2500 ####[facility] [address] [place], [address] Potassium Normal 3.5-5.1 [facility] Comment on above: Result Comment: LIPA SE ADDED TO ORDER NUMBER [id number], BMP IS A DUP TO A CMP Performed By: #### L 500.2500 ####[facility] [address] [place], [address] Basic Metabolic Profile (BMP) Normal 136-145 [facility] Comment on above: Result Comment: LIPA SE ADDED TO ORDER NUMBER [id number], BMP IS A DUP TO A CMP Performed By: #### L 500.2500 ####[facility] [address] [place], [address](817) Basophil percentageOrdered B y: Ludin Sanderson on 10-28-2024 Basophils/100 WBC (Bld) 0.5 % 0-1 [facility] Bedside Glucoseon 10-28-2024 FINGERSTICK GLU 274 mg/dL High 74-106 [facility] Comment on above: Result Comment: CORINNA VELEZ OF PATIENT CARE PER NURSING PROTOCOL Performed By: #### L 500.2500 #### [facility] [address] [place], [address] Bilirubin Test strip Ql (U)O rdered By: Ludin Sanderson on 10-28-2024 Bilirubin Ql (U) Negative Negative [facility] Bilirubin, totalOrdered By: Ludin Sanderson on 10-28-2024 Bilirubin [Mass/Vol] 0.60 mg/dL 0.20-1.[address] [facility] Comment on above: For patients on eltr ombopag therapy, use of Dimension Willard TBIL is not recommended. Blood urea nitrogen (BUN)/cr eatinine ratioOrdered By: Ludin Sanderson on 10-28-2024 Urea nitrogen/Creatinine [Mass ratio] 22.0 mg/mg High 10-20 [facility] CBC W/Diff, Automatedon 12- Absolute Lymph 2.59 X10 3/uL Normal 0.83-4.51 [facility] Comment on above: Performed By: #### L 100.0100 ####[facility] [address] [place], [address] Absolute Neut 9.8 X10 3/uL High 2.0-7.7 [facility] Comment on above: Performed By: #### L 100.0100 ####[facility] [address] [place], [address] Basophils/100 WBC (Bld) 0.5 % Normal 0-1 [facility] Comment on above: Performed By: #### L 100.0100 ####[facility] [address] [place], [address] Eosinophils/100 WBC (Bld) 0.3 % Normal 0-5 [facility] Comment on above: Performed By: #### L 100.0100 ####[facility] [address] [place], [address] Erythrocyte distribution width (RBC) [Ratio] 13.5 % Normal 11.6-14.6 [facility] Comment on above: Performed By: #### L 100.0100 ####[facility] [address] [place], [address] Hematocrit (Bld) [Volume fraction] 45.6 % Normal 40-54 [facility] Comment on above: Performed By: #### L 100.0100 ####[facility] [address] [place], [address] Hemoglobin (Bld) [Mass/Vol] 14.9 g/dL Normal 13.0-16.5 [facility] Comment on above: Performed By: #### L 100.0100 ####[facility] [address] [place], [address] IG% 0.500 Normal 0.0-0.9 [facility] Comment on above: Result Comment: IG% - Immature Granulocytes (promyelocytes, myelocytes and metamyelocytes) > 1% indicates that a LEFT SHIFT is Present. Performed By: #### L 100.0100 ####[facility] [address] [place], [address] Lymphocytes/100 WBC (Bld) 19.1 % Normal 19-41 [facility] Comment on above: Performed By: #### L 100.0100 ####[facility] [address] [place], [address] MCH (RBC) [Entitic mass] 28.7 pg Normal 27.0-32.0 [facility] Comment on above: Performed By: #### L 100.0100 ####[facility] [address] [place], [address] MCHC (RBC) [Mass/Vol] 32.7 g/dL Normal 32-36 [facility] Comment on above: Performed By: #### L 100.0100 ####[facility] [address] [place], [address] MCV (RBC) [Entitic vol] 87.9 fL Normal 80-94 [facility] Comment on above: Performed By: #### L 100.0100 ####[facility] [address] [place], [address] Monocytes/100 WBC (Bld) 7.7 % Normal 0-10 [facility] Comment on above: Performed By: #### L 100.0100 ####[facility] [address] [place], [address] Neutrophils/100 WBC (Bld) 71.9 % High 47-70 [facility] Comment on above: Performed By: #### L 100.0100 ####[facility] [address] [place], [address] Nucleated RBC (Bld) [#/Vol] 0 10*3/uL Normal 0-5 [facility] Comment on above: Performed By: #### L 100.0100 ####[facility] [address] [place], [address] Platelet mean volume (Bld) [Entitic vol] 9.5 fL Normal 6.2-12.0 [facility] Comment on above: Performed By: #### L 100.0100 ####[facility] [address] [place], [address] Platelets (Bld) [#/Vol] 466 10*3/uL High 150-450 [facility] Comment on above: Performed By: #### L 100.0100 ####[facility] [address] [place], [address] RBC (Bld) [#/Vol] 5.19 10*6/uL Normal 4.6-6.2 [facility] Comment on above: Performed By: #### L 100.0100 ####[facility] [address] [place], [address] RDW SD 43.4 fl Normal 35.1-43.9 [facility] Comment on above: Performed By: #### L 100.0100 ####[facility] [address] [place], [address] WBC (Bld) [#/Vol] 13.6 10*3/uL High 4.4-11.0 [facility] Comment on above: Performed By: #### L 100.0100 ####[facility] [address] [place], [address] Carbon dioxide measurementOr dered By: Ludin Sanderson on 10-28-2024 CO2 [Moles/Vol] 18.0 mmol/L Low 21.0-32.0 [facility] Chloride measurementOrdered By: Ludin Sanderson on 10-28-2024 Chloride [Moles/Vol] 100 mmol/L 98-[address] [facility] Comprehensive Metabolic Prof ilon 10-28-2024 Albumin [Mass/Vol] 4.1 g/dL Normal 3.2-5.0 [facility] Comment on above: Performed By: #### L 500.2500 #### [facility] [address] [place], [address] Albumin/Globulin [Mass ratio] 0.8 {ratio} Low 0.9-2.4 [facility] Comment on above: Performed By: #### L 500.2500 #### [facility] [address] [place], [address] ALK P 138 U/L High 45-117 [facility] Comment on above: Performed By: #### L 500.2500 #### [facility] [address] [place], [address] ALT [Catalytic activity/Vol] 50 U/L Normal 16-61 [facility] Comment on above: Performed By: #### L 500.2500 #### [facility] [address] [place], [address] AST [Catalytic activity/Vol] 68 U/L High 15-37 [facility] Comment on above: Result Comment: Mode rate Hemolysis, Result may be falsely increased. Performed By: #### L 500.2500 #### [facility] [address] [place], [address] Bilirubin [Mass/Vol] 0.60 mg/dL Normal 0.20-1.[address] [facility] Comment on above: Result Comment: For patients on eltrombopag therapy, use of Dimension Willard TBIL is not recommended. Performed By: #### L 500.2500 #### [facility] [address] [place], [address] BUN/CRE 22.0 RATIO High 10-20 [facility] Comment on above: Performed By: #### L 500.2500 #### [facility] [address] [place], [address] CA,Total 9.6 mg/dL Normal 8.5-10.1 [facility] Comment on above: Performed By: #### L 500.2500 #### [facility] [address] [place], [address] Chloride [Moles/Vol] 100 mmol/L Normal 98-[address] [facility] Comment on above: Performed By: #### L 500.2500 #### [facility] [address] [place], [address] CO2 [Moles/Vol] 18.0 mmol/L Low 21.0-32.0 [facility] Comment on above: Performed By: #### L 500.2500 #### [facility] [address] [place], [address] Creatinine [Mass/Vol] 1.32 mg/dL High 0.70-1.30 [facility] Comment on above: Result Comment: The validity of the calculated GFR GFRAA in patients over 70 years has not been determined. Clinical correlation is essential. Performed By: #### L 500.2500 #### [facility] [address] [place], [address] ECRCL 67.80 ml/min Normal [facility] Comment on above: Performed By: #### L 500.2500 #### [facility] [address] [place], [address] EST GFR - AA 78 mL/min Normal >60 [facility] Comment on above: Result Comment: Afri can Qatari GFR Calc Performed By: #### L 500.2500 #### [facility] [address] [place], [address] GAP 11 Normal 5-15 [facility] Comment on above: Performed By: #### L 500.2500 #### [facility] [address] [place], [address] GFR/1.73 sq M.predicted among non-blacks MDRD (S/P/Bld) [Vol rate/Area] 64 mL/min/{1.73_m2} Normal >60 [facility] Comment on above: Result Comment: Non- GFR Calc Performed By: #### L 500.2500 #### [facility] [address] [place], [address] Globulin (S) [Mass/Vol] 5.2 g/dL High 2.2-4.2 [facility] Comment on above: Performed By: #### L 500.2500 #### [facility] [address] [place], [address] Glucose [Mass/Vol] 282 mg/dL High 74-106 [facility] Comment on above: Result Comment: Gluc ose result greater than or equal to 200 mg/dL suggests DIABETES MELLITUS per A.D.A. criteria. Performed By: #### L 500.2500 #### [facility] [address] [place], [address] Potassium [Moles/Vol] 4.4 mmol/L Normal 3.5-5.1 [facility] Comment on above: Result Comment: Mode rate Hemolysis, Result may be falsely increased. Performed By: #### L 500.2500 #### [facility] [address] [place], [address] Sodium [Moles/Vol] 129 mmol/L Low 136-145 [facility] Comment on above: Performed By: #### L 500.2500 #### [facility] [address] [place], [address] T PROT 9.3 g/dL High 6.4-8.2 [facility] Comment on above: Performed By: #### L 500.2500 #### [facility] [address] [place], [address] Urea nitrogen [Mass/Vol] 29 mg/dL High 7-18 [facility] Comment on above: Performed By: #### L 500.2500 #### [facility] [address] [place], [address] Emergency Department Summary on 10-28-2024 Emergency Department Summary [facility] Medical Records Department [address] [place] [address] Emergency Department Summary 10/28/24 MR#: [id number] Acct: [id number] Name: WESTON GAMEZ Rep #: [id number] : 1985 39 From: Ludin Sanderson MD PCP: Austin Camarena, SENIOR INVESTMENT ANALYST-C Status:REG ER Location: ED HPI HPI - [...] weeks ago when he was seen at [facility]. They state that the last time he was here, he had a small tear that had to be fixed by Dr. Argueta from the nausea and vomiting. Patient complains of diffuse abdominal pain since last evening as well as multiple episodes of nausea and vomiting without blood in his emesis. No exacerbating or alleviating factors. [facility] Medical History Gastroparesis Former tobacco use Cannabis [...] #1 ea 05/04/24 Unknown Rx (Dexcom G7 Upper And Bottom Lacer Hand) gabapentin 100 mg capsule 200 mg PO [...] tachycardia at (more content not included)... Normal [facility] Eosinophil percentageOrdered By: Ludin Sanderson on 10-28-2024 Eosinophils/100 WBC (Bld) 0.3 % 0-5 [facility] Epithelial cells.squamous LM Ql (Urine sed)Ordered By: Ludin Sanderson on 10-28-2024 Epithelial cells.squamous LM.HPF (Urine sed) [#/Area] 5 /[HPF] 0-5 [facility] Erythrocyte distribution wid th ratioOrdered By: Ludin Sanderson on 10-28-2024 Erythrocyte distribution width (RBC) [Ratio] 13.5 % 11.6-14.6 [facility] Erythrocyte distribution wid th standard deviationOrdered By: Ludin Sanderson on 10-28-2024 Erythrocyte distribution width (RBC) [Entitic vol] 43.4 fL 35.1-43.9 [facility] Estimated glomerular filtrat ion rate (GFR) AmericanOrdered By: Ludin Sanderson on 10-28-2024 Estimated GFR (MDRD) Amer 78 mL/min >60 [facility] Comment on above: GFR Calc Estimation of creatinine devi aranceOrdered By: Ludin Sanderson on 10-28-2024 Estimated Creatinine Clearance Calc 67.80 ml/min [facility] Fine Granular Casts LM.LPF ( Urine sed) [#/Area]Ordered By: Ludin Sanderson on 10-28-2024 Urine Fine Granular Casts 0-5 SEEN /lpf 0-5 [facility] Glomerular filtration rate ( GFR) estimationOrdered By: Ludin Sanderson on 10-28-2024 Estimated GFR (MDRD) Non-Af Amer 64 mL/min >60 [facility] Comment on above: Non- GFR Calc Glucose Ql (U)Ordered By: Kamlesh Sanderson on 10-28-2024 Glucose (U) [Mass/Vol] 1000 mg/dL High Normal [facility] Glucose measurementOrdered B y: Ludin Sanderson on 10-28-2024 Glucose [Mass/Vol] 282 mg/dL High 74-106 [facility] Comment on above: Glucose result great er than or equal to 200 mg/dLsuggests DIABETES MELLITUS per A.D.A. criteria. [facility] deOrdered By: Ludin Sanderson on 10-28-2024 Bedside Glucose (Misc Panel) 274 mg/dL High 74-106 [facility] Comment on above: MANAGEMENT OF PATIEN T CARE PER NURSING PROTOCOL Hematocrit Auto (Bld) [Volum e fraction]Ordered By: Ludin Sanderson on 10-28-2024 Hematocrit (Bld) [Volume fraction] 45.6 % 40-54 [facility] Hemoglobin measurementOrdere d By: Ludin Sanderson on 10-28-2024 Hemoglobin (Bld) [Mass/Vol] 14.9 g/dL 13.0-16.5 [facility] Hyaline casts LM.LPF (Urine sed) [#/Area]Ordered By: Ludin Sanderson on 10-28-2024 Hyaline casts LM Ql (Urine sed) 10-25 SEEN /lpf 0-5 [facility] Immature granulocytes/100 WB C Auto (Bld)Ordered By: Ludin Sanderson on 10-28-2024 Immature granulocytes/100 WBC (Bld) 0.500 % 0.0-0.9 [facility] Comment on above: IG% - Immature Granu locytes (promyelocytes, myelocytes and metamyelocytes) > 1% indicates that a LEFT SHIFT is Present. Ketones Test strip Ql (U)Ord ered By: Ludin Sanderson on 10-28-2024 Ketones Ql (U) 150 mg/dl Abnormal Negative [facility] Comment on above: CRITICAL VALUE *HCRI TICAL VALUE CALLED TO YULIA TIJERINA ORR10/28/24 1701 Orlin Perez.RESULTS READ BACK BY SAME. Laboratory - Chemistry and C hemistry - challengeOrdered By: Ludin Sanderson on 10-28-2024 AST [Catalytic activity/Vol] 68 U/L High 15-37 [facility] Comment on above: Moderate Hemolysis, Result may be falsely increased. Lipaseon 10-28-2024 Lipase [Catalytic activity/Vol] 25 U/L Normal 13-75 [facility] Comment on above: Result Comment: Plea se note: LIPASE revised reference range effective 23. New Lipase methodology. Expected to produce lower values than the previous assay method. NEW Reference Range: 13 - 75 U/L Performed By: #### L 500.2500 #### [facility] [place], [address] Lipase measurementOrdered By : Ludin Sanderson on 10-28-2024 Lipase [Catalytic activity/Vol] 25 U/L 13-75 [facility] Comment on above: Please note:LIPASE r evised reference range effective 23. New Lipase methodology. Expected to produce lower values than the previous assay method. NEW Reference Range: 13 - 75 U/L Lymphocytes Auto (Unsp spec) [#/Vol]Ordered By: Ludin Sanderson on 10-28-2024 Lymphocytes (Bld) [#/Vol] 2.59 10*3/uL 0.83-4.51 [facility] Lymphocytes/100 WBC Auto (Un sp spec)Ordered By: Ludin Sanderson on 10-28-2024 Lymphocytes/100 WBC (Bld) 19.1 % 19-41 [facility] MCV (mean corpuscular volume ) determinationOrdered By: Ludin Sanderson on 10-28-2024 MCV (RBC) [Entitic vol] 87.9 fL 80-94 [facility] Mean corpuscular hemoglobin (MCH) determinationOrdered By: Ludin Sanderson on 10-28-2024 MCH (RBC) [Entitic mass] 28.7 pg 27.0-32.0 [facility] Mean corpuscular hemoglobin concentration (MCHC) determinationOrdered By: Luidn Sanderson on 10-28-2024 MCHC (RBC) [Mass/Vol] 32.7 g/dL 32-36 [facility] Mean platelet volume determi nationOrdered By: Ludin Sanderson on 10-28-2024 Platelet mean volume (Bld) [Entitic vol] 9.5 fL 6.2-12.0 [facility] Microscopic analysis of urin e for red blood cells (RBC)Ordered By: Ludin Sanderson on 10-28-2024 Urine RBC 50-100 SEEN /hpf 0-5 [facility] Monocyte percentageOrdered B y: Ludin Sanderson on 10-28-2024 Monocytes/100 WBC (Bld) 7.7 % 0-10 [facility] Mucus LM Ql (Urine sed)Order ed By: Ludin Sanderson on 10-28-2024 Mucus Ql (Urine sed) 3+ /hpf [facility] Neutrophil percentageOrdered By: Ludin Sanderson on 10-28-2024 Neutrophils/100 WBC (Bld) 71.9 % High 47-70 [facility] Nitrite Test strip Ql (U)Ord ered By: Ludin Sanderson on 10-28-2024 Nitrite Ql (U) Negative Negative [facility] Nucleated red blood cell per centageOrdered By: Ludin Sanderson on 10-28-2024 Nucleated RBC/100 WBC (Bld) [Ratio] 0 % 0-5 [facility] Platelet countOrdered By: Kamlesh Sanderson on 10-28-2024 Platelets (Bld) [#/Vol] 466 10*3/uL High 150-450 [facility] Potassium measurementOrdered By: Ludin Sanderson on 10-28-2024 Potassium [Moles/Vol] 4.4 mmol/L 3.5-5.1 [facility] Comment on above: Moderate Hemolysis, Result may be falsely increased. Protein Test strip Ql (U)Ord ered By: Ludin Sanderson on 10-28-2024 Protein Ql (U) 100 mg/dl High Negative [facility] RBC Auto (Bld) [#/Vol]Ordere d By: Ludin Sanderson on 10-28-2024 RBC (Bld) [#/Vol] 5.19 10*6/uL 4.6-6.2 [facility] Serum anion gap measurementO rdered By: Ludin Sanderson on 10-28-2024 Anion gap [Moles/Vol] 11 mmol/L 5-15 [facility] Serum globulin measurementOr dered By: Ludin Sanderson on 10-28-2024 Globulin (S) [Mass/Vol] 5.2 g/dL High 2.2-4.2 [facility] Serum or plasma alanine escamilla otransferase (ALT) measurementOrdered By: Ludin Sanderson on 10-28-2024 ALT [Catalytic activity/Vol] 50 U/L 16-61 [facility] Serum or plasma albumin luis carlos urement (mass/volume)Ordered By: Ludin Sanderson on 10-28-2024 Albumin [Mass/Vol] 4.1 g/dL 3.2-5.0 [facility] Serum or plasma alkaline tessy sphatase measurementOrdered By: Ludin Maria E on 10-28-2024 ALP [Catalytic activity/Vol] 138 U/L High 45-117 [facility] Serum or plasma calcium luis carlos urement (mass/volume)Ordered By: Ludin Sanderson on 10-28-2024 Calcium [Mass/Vol] 9.6 mg/dL 8.5-10.1 [facility] Serum or plasma creatinine m easurement (mass/volume)Ordered By: Ludin Sanderson on 10-28-2024 Creatinine [Mass/Vol] 1.32 mg/dL High 0.70-1.30 [facility] Comment on above: The validity of the calculated GFR & GFRAA in patients over 70 years has not been determined. Clinical correlation is essential. Serum or plasma urea nitroge n measurement (mass/volume)Ordered By: Ludin Sanderson on 10-28-2024 Urea nitrogen [Mass/Vol] 29 mg/dL High 7-18 [facility] [facility] Sodium levelOrdered By: Ludin Sanderson on 10-28-2024 Sodium [Moles/Vol] 129 mmol/L Low 136-145 [facility] [place] Total proteinOrdered By: Catina Sanderson on 10-28-2024 Protein [Mass/Vol] 9.3 g/dL High 6.4-8.2 [facility] [place] Urinalysis, Completeon 10-28 BACTERIA 1+ /hpf Normal None Seen [facility] Comment on above: Order Comment: KATHRYN CTOR TO SPECIFY Performed By: #### L 500.2500 #### [facility] [address] [place], [place], [id number] CAST,FINE GRAN 0-5 SEEN Normal 0-5 [facility] Comment on above: Order Comment: KATHRYN CTOR TO SPECIFY Performed By: #### L 500.2500 #### [facility] [address] [place], [address] CAST,HYALINE 10-25 SEEN Normal 0-5 [facility] Comment on above: Order Comment: KATHRYN CTOR TO SPECIFY Performed By: #### L 500.2500 #### [facility] [address] [place], [address] EPI,SQUAMOUS 5-10 SEEN Normal 0-5 [facility] Comment on above: Order Comment: KATHRYN CTOR TO SPECIFY Performed By: #### L 500.2500 #### [facility] [address] [place], [address] Mucus Ql (Urine sed) 3+ /hpf Normal [facility] Comment on above: Order Comment: KATHRYN CTOR TO SPECIFY Performed By: #### L 500.2500 #### [facility] [address] [place], [address] RBC 50-100 SEEN Normal 0-5 [facility] Comment on above: Order Comment: KATHRYN CTOR TO SPECIFY Performed By: #### L 500.2500 #### [facility] [address] [place], [address] KETONE UR 150 mg/dl Abnormal Negative [facility] Comment on above: Order Comment: KATHRYN CTOR TO SPECIFY Result Comment: CRIT ICAL VALUE *H CRITICAL VALUE CALLED TO YULIA WHEELER 10/28/24 1701 Orlin Perez. RESULTS READ BACK BY SAME. Performed By: #### L 500.2500 #### [facility] [address] [place], [address] BILIRUBIN URINE Negative Normal Negative [facility] Comment on above: Order Comment: KATHRYN CTOR TO SPECIFY Performed By: #### L 500.2500 #### [facility] [address] [place], [address] Clarity (U) Sl. Cloudy Normal Clear [facility] Comment on above: Order Comment: KATHRYN CTOR TO SPECIFY Performed By: #### L 500.2500 #### [facility] [address] [place], [address] Color (U) Yellow Normal Yellow [facility] Comment on above: Order Comment: KATHRYN CTOR TO SPECIFY Performed By: #### L 500.2500 #### [facility] [address] [place], [address] GLUCOSE, UR 1000 mg/dl Abnormal Normal [facility] Comment on above: Order Comment: KATHRYN CTOR TO SPECIFY Performed By: #### L 500.2500 #### [facility] [address] [place], [address] LEUK ESTERASE Negative Normal Negative [facility] Comment on above: Order Comment: KATHRYN CTOR TO SPECIFY Performed By: #### L 500.2500 #### [facility] [address] [place], [address] Nitrite Ql (U) Negative Normal Negative [facility] Comment on above: Order Comment: KATHRYN CTOR TO SPECIFY Performed By: #### L 500.2500 #### [facility] [address] [place], [address] OCCULT BLOOD-UR 50 /ul Abnormal Negative [facility] Comment on above: Order Comment: KATHRYN CTOR TO SPECIFY Performed By: #### L 500.2500 #### [facility] [address] [place], [address] pH UR 5.0 Normal 5.0 - 8.0 [facility] Comment on above: Order Comment: KATHRYN CTOR TO SPECIFY Performed By: #### L 500.2500 #### [facility] [address] [place], [address] PROT DIPSTX 100 mg/dl Abnormal Negative [facility] Comment on above: Order Comment: KATHRYN CTOR TO SPECIFY Performed By: #### L 500.2500 #### [facility] [address] [place], [address] SP.GR. DIPSTX 1.025 Normal 1.002-1.030 [facility] Comment on above: Order Comment: KATHRYN CTOR TO SPECIFY Performed By: #### L 500.2500 #### [facility] [address] [place], [place], [id number] UROBILI Normal Normal Normal [facility] Comment on above: Order Comment: KATHRYN CTOR TO SPECIFY Performed By: #### L 500.2500 #### [facility] [address] [place] [id number] WBC 0 SEEN Normal 0-5 [facility] Comment on above: Order Comment: KATHRYN CTOR TO SPECIFY Performed By: #### L 500.2500 #### [facility] [address] [place], [place], [id number] Urine blood detectionOrdered By: Ludin Sanderson on 10-28-2024 Urine Occult Blood 50 /ul High Negative [facility] [place] Urine clarityOrdered By: Catina Sanderson on 10-28-2024 Clarity (U) Sl. Cloudy Clear [facility] Urine color determinationOrd ered By: Ludin Sanderson on 10-28-2024 Color (U) Yellow Yellow [facility] Urine leukocyte esterase det ection by dipstickOrdered By: Ludin Sanderson on 10-28-2024 Leukocyte esterase Test strip Ql (U) Negative Negative [facility] Urine pHOrdered By: Ludin krueger on 10-28-2024 pH (U) 5.0 [pH] 5.0 - 8.0 [facility] Urine sediment bacteria coun t by microscopy (number/high power field)Ordered By: Ludin Sanderson on 10-28-2024 Bacteria LM.HPF (Urine sed) [#/Area] 1 /[HPF] None Seen [facility] Urine specific gravity measu rementOrdered By: Ludin Sanderson on 10-28-2024 Specific gravity (U) [Rel density] 1.025 1.002-1.030 [facility] Urobilinogen Ql (U)Ordered B y: Ludin Sanderson on 10-28-2024 Urine Urobilinogen Normal mg/dl Normal [facility] White blood cell (WBC) count Ordered By: Ludin Sanderson on 10-28-2024 WBC (Bld) [#/Vol] 13.6 10*3/uL High 4.4-11.0 [facility] White blood cell countOrdere d By: Ludin Maria E on 10-28-2024 Urine WBC 0 SEEN /hpf 0-5 [facility] .Auto Diffon 10-18-2024 Basophil, Absolute 0.1 10 3/mcL Normal 0.0-0.2 [facility] Comment on above: Performed By: #### G FR, CBC, LIP, ANEU, ADIFF, MDW, CMP #### [address] [address] Basophils/100 WBC (Bld) 0.7 % Normal 0.0-2.5 [facility] Comment on above: Performed By: #### G FR, CBC, LIP, ANEU, ADIFF, MDW, CMP #### [address] [address] Eosinophil, Absolute 0.2 10 3/mcL Normal 0.0-0.7 [place] Comment on above: Performed By: #### G FR, CBC, LIP, ANEU, ADMIKAYLA, W, CMP #### [address] [address] Eosinophils/100 WBC (Bld) 1.2 % Normal 0.0-7.0 [facility] Comment on above: Performed By: #### G FR, CBC, LIP, ANEU, ADMIKAYLA, W, CMP #### [address] [address] Lymphocyte, Absolute 2.1 10 3/mcL Normal 0.9-4.3 [facility] Comment on above: Performed By: #### G FR, CBC, LIP, ANEU, ADMIKAYLA, CARITO, CMP #### [address] [address] Lymphocytes/100 WBC (Bld) 12.9 % Low 20.0-40.0 [facility] Comment on above: Performed By: #### G FR, CBC, LIP, ANEU, ADIFF, W, CMP #### [address] [address] Monocyte, Absolute 1.2 10 3/mcL Normal 0.1-1.4 [facility] Comment on above: Performed By: #### G FR, CBC, LIP, ANEU, ADMIKAYLA, CARITO, CMP #### [address] [place], [place] [address] Monocytes/100 WBC (Bld) 7.7 % Normal 2.0-13.0 [facility] Comment on above: Performed By: #### G FR, CBC, LIP, ANEU, ADMIKAYLA, W, CMP #### [address] [address] Neutrophils/100 WBC (Bld) 77.5 % High 50.0-75.0 [facility] Comment on above: Performed By: #### G FR, CBC, LIP, ANEU, ADCARITO DEGROOT, CMP #### [address] [address] .GFRon 10-18-2024 GFR 99 ml/min/1.73sqm Normal [facility] Comment on above: Result Comment: GFR [...] CBC, LIP, ANEU, ADIFF, W, CMP #### [address] [address] GFR Non- 81 ml/min/1.73sqm Normal [facility] Comment on above: Result Comment: GFR [...] meters Performed By: #### G FR, CBC, LIPTRISTEN ADIFF, MDW, CMP #### [address] [address] .MDWon 10-18-2024 Monocyte Distribution Width 18.17 Normal 0.00-20.00 [facility] Comment on above: Result Comment: For ED adult patients suspected of sepsis, MDW<=20.0 does not rule out sepsis or risk of sepsis Performed By: #### G FR, CBC, LIP, MATTY RAMON MDW, CMP #### [address] [address] .NEUABSon 10-18-2024 Neutrophil, Absolute 12.4 10 3/mcL High 2.3-8.1 A [facility] Comment on above: Performed By: #### G FR, CBC, LIP, MATTY RAMON MDW, CMP #### [address] [address] .Urinalysis Microscopic (AO) on 10-18-2024 UA Hyal Cast 0-5 Abnormal [facility] Comment on above: Performed By: #### G FR, CBC, LIP, MATTY RAMON MDW, CMP #### [address] [address] UA RBC 10-15 Abnormal None Seen [facility] Comment on above: Performed By: #### G FR, CBC, LIP, MATTY RAMON MDW, CMP #### [address] [address] UA Squam Epithelial 0-5 Abnormal None Seen [facility] Comment on above: Performed By: #### G FR, CBC, LIP, ANEUMATTY MDW, CMP #### [address] [address] UA WBC 0-5 Abnormal None Seen [facility] Comment on above: Performed By: #### G FR, CBC, LIP, ANEUMATTY MDW, CMP #### [address] [address] CBCon 10-18-2024 Erythrocyte distribution width (RBC) [Ratio] 14.4 % Normal 11.5-15.5 [facility] Comment on above: Performed By: #### G FR, CBC, LIP, ANEUMATTY MDW, CMP #### [address] [address] Hematocrit (Bld) [Volume fraction] 44.4 % Normal 40.0-52.0 [facility] Comment on above: Performed By: #### G FR, CBC, LIP, MATTY RAMON MDW, CMP #### [address] [address] Hgb 14.9 G/dL Normal 13.0-17.5 [facility] Comment on above: Performed By: #### G FR, CBC, LIP, MATTY RAMON MDW, CMP #### [address] [address] MCH (RBC) [Entitic mass] 29.5 pg Normal 27.0-33.0 [facility] Comment on above: Performed By: #### G FR, CBC, LIP, ANEUMATTY MDW, CMP #### [address] [address] MCHC 33.5 G/dL Normal 32.0-36.0 [facility] Comment on above: Performed By: #### G FR, CBC, LIP, ANEUMATTY MDW, CMP #### [address] [address] MCV (RBC) [Entitic vol] 88.1 fL Normal 81.0-100.0 [facility] Comment on above: Performed By: #### G FR, CBC, LIP, ANEU, ADIFF, MDW, CMP #### [address] [address] Platelet 363 10 3/mcL Normal 150-450 [facility] Comment on above: Performed By: #### G FR, CBC, LIP, ANEU, ADIFF, MDW, CMP #### [address] [address] Platelet mean volume (Bld) [Entitic vol] 7.7 fL Normal 6.4-10.5 [facility] Comment on above: Performed By: #### G FR, CBC, LIP, ANEU, ADIFF, MDW, CMP #### [address] [address] RBC 5.04 10 6/mcL Normal 4.50-6.00 [facility] Comment on above: Performed By: #### G FR, CBC, LIP, ANEU, ADMIKAYLA, W, CMP #### [address] [address] WBC 16.1 10 3/mcL High 4.5-10.8 [facility] Comment on above: Performed By: #### G FR, CBC, LIP, ANEU, ADMIKAYLA, W, CMP #### [address] [address] CMPon 10-18-2024 Bili Total 0.3 mg/dL Normal 0.2-1.0 [facility] Comment on above: Result Comment: Use of this assay is not recommended for patients undergoing treatment with eltrombopag due to the potential for falsely elevated results. Performed By: #### G FR, CBC, LIP, ANEU, ADIFF, MDW, CMP #### [address] [address] Albumin Level 4.6 G/dL Normal 3.5-5.0 [facility] Comment on above: Performed By: #### G FR, CBC, LIP, ANEU, MATTY, CARITO, CMP #### [address] [address] Albumin/Globulin [Mass ratio] 1.1 {ratio} Normal 1.1-2.5 [facility] Comment on above: Performed By: #### G FR, CBC, LIP, ANEU, MATTY, CARITO, CMP #### [address] [address] ALP [Catalytic activity/Vol] 159 U/L High 40-135 [facility] Comment on above: Performed By: #### G FR, CBC, LIP, TRISTEN, MATTY, CARITO, CMP #### [address] [address] ALT [Catalytic activity/Vol] 81 U/L High 16-63 [facility] Comment on above: Performed By: #### G FR, CBC, LIP, ANEU, ADMIKAYLA, W, CMP #### [address] [address] AST [Catalytic activity/Vol] 76 U/L High 10-40 [facility] Comment on above: Performed By: #### G FR, CBC, LIP, ANEU, ADMIKAYLA, CARITO, CMP #### [address] [address] BUN/Creatinine Ratio 22 ratio Normal 7-27 [facility] Comment on above: Performed By: #### G FR, CBC, LIP, ANEU, MATTY, CARITO, CMP #### [address] [address] Calcium [Mass/Vol] 10.1 mg/dL Normal 8.4-10.2 [facility] Comment on above: Performed By: #### G FR, CBC, LIP, ANEU, ADMIKAYLA, W, CMP #### [address] [address] Chloride [Moles/Vol] 101 mmol/L Normal 98-107 [facility] Comment on above: Performed By: #### G FR, CBC, LIP, ANEU, ADMIKAYLA, W, CMP #### [address] [address] CO2 [Moles/Vol] 22 mmol/L Normal 22-29 [facility] Comment on above: Performed By: #### G FR, CBC, LIP, ANEU, ADIFF, MDW, CMP #### [address] [address] Creatinine [Mass/Vol] 1.02 mg/dL Normal 0.70-1.30 [facility] Comment on above: Result Comment: Test ing performed on Siemens Dimension EXL analyzer using a modified kinetic Ifeanyi technique. Performed By: #### G FR, CBC, LIP, ANEU, ADMIKAYLA, W, CMP #### [address] [address] Electrolyte Balance 15.0 mEq/L Normal 4.0-15.0 [facility] Comment on above: Performed By: #### G FR, CBC, LIP, ANEU, ADIFF, W, CMP #### [address] [address] Globulin 4.3 G/dL Normal [facility] Comment on above: Performed By: #### G FR, CBC, LIP, ANEU, ADMIKAYLA, W, CMP #### [address] [address] Glucose [Mass/Vol] 211 mg/dL High 70-105 [facility] Comment on above: Performed By: #### G FR, CBC, LIP, ANEU, ADIFF, W, CMP #### [address] [address] Potassium [Moles/Vol] 4.2 mmol/L Normal 3.5-5.1 [facility] Comment on above: Performed By: #### G FR, CBC, LIP, ANEU, ADIFF, MDW, CMP #### [address] [address] Sodium [Moles/Vol] 138 mmol/L Normal 136-145 [facility] Comment on above: Performed By: #### G FR, CBC, LIP, MATTY RAMON MDW, CMP #### [address] [address] Total Protein 8.9 G/dL High 6.4-8.2 [facility] Comment on above: Performed By: #### G FR, CBC, LIP, MATTY RAMON MDW, CMP #### [address] [address] Urea nitrogen [Mass/Vol] 22 mg/dL High 7-18 [facility] Comment on above: Performed By: #### G FR, CBC, LIP, MATTY RAMON MDW, CMP #### [place] [address] [place], [place] [address] CNOVon 10-18-2024 CNOV Office Visit (UCWSTR ) -- WESTON GAMEZ ([id number]) 1985 [facility] Date Time Provider Department 10/18/24 2:00 PM MARY LONGORIA [facility]WSTR During your visit today, we recorded the following information about you: Mary Longoria APRN.CNP 10/18/2024 1:27 PM Signed Weston Seth Gamez is a 39 year old male who presents to [facility] for abdominal pain, vomiting, fever. Person with him states he has had fever of 102 degrees F and can't quit vomiting. He is crying in the triage room. He is directed to the ED for further evaluation and treatment. He will go to [facility]. Mary Longoria APRN.CNP Allergies As of Date: 10/18/2024 (No Known [...] Status:Closed by MARY LONGORIA on 10/18/24 Normal [facility] CVFLURVon 10-18-2024 FLU A PCR Negative Normal Negative [facility] Comment on above: Performed By: #### C VFLURV #### [place] [address] [place], [place] [address] FLU B PCR Negative Normal Negative [facility] Comment on above: Performed By: #### C VFLURV #### Alondra [address] [address] RSV PCR Negative Normal Negative [facility] Comment on above: Performed By: #### C VFLURV #### [address] [address] SARS-CoV-2 (COVID-19) RNA LOIS+probe Ql (Unsp spec) Negative Normal Negative [facility] Comment on above: Result Comment: Resu [...] results. Performed By: #### C VFLURV #### [address] [address] LIPon 10-18-2024 Lipase Level 28 U/L Normal 16-77 [facility] Comment on above: Performed By: #### G FR, CBC, LIP, ANEU, ADMIKAYLA, MDW, CMP #### [address] [address] UAon 10-18-2024 Color (U) Yellow Normal [facility] Comment on above: Performed By: #### U A, UAMICAO #### [address] [address] Glucose (U) [Mass/Vol] 500 mg/dL Abnormal Negative [facility] Comment on above: Performed By: #### U A, UAMICAO #### [address] [address] Ketones Ql (U) >=160 Abnormal Negative [facility] Comment on above: Performed By: #### U A, UAMICAO #### [place] [address] UA Appear Clear Normal Clear [facility] Comment on above: Performed By: #### U A, UAMICAO #### [place] [address] UA Blood Moderate Abnormal Negative [facility] Comment on above: Performed By: #### U A, UAMICAO #### [place] [address] UA Leuk Est Negative Normal Negative [facility] Comment on above: Performed By: #### U A, UAMICAO #### [place] [address] UA Nitrite Negative Normal Negative [facility] Comment on above: Performed By: #### U A, UAMICAO #### [place] [address] UA pH 6.0 Normal 5.0 - 8.0 [facility] Comment on above: Performed By: #### U A, UAMICAO #### [place] [address] UA Protein 100 mg/dL Abnormal Negative [facility] Comment on above: Performed By: #### U A, UAMICAO #### [place] [address] UA Spec Grav 1.025 Normal 1.015-1.025 [facility] Comment on above: Performed By: #### U A, UAMICAO #### [place] [address] UA Specimen Type Clean Catch Normal [facility] Comment on above: Performed By: #### U A, UAMICAO #### [place] [address] UA Urobilinogen 0.2 E.U./dL Normal 0.2-1.0 [facility] Comment on above: Performed By: #### U A, UAMICAO #### [facility] [address] [place], [place] [address] Urobilinogen (U) [Mass/Vol] Negative Normal Negative [facility] Comment on above: Performed By: #### U BRIDGET Chaudhari #### [facility] [address] [place], [place] [address] XR CHEST 1 VIEWon 10-18-2024 XR CHEST [...] Date: 10/18/2024 3:29:30 PM Ordering Provider: BROOKLYN Mosqueda [facility] Gastroenterology Visit Repor ton 10-03-2024 Gastroenterology Visit Report [facility] [address] [facility] [place] [address] OFFICE VISIT Date of Service: 10/03/24 MR#: [id number] Acct: [id number] Name: WESTON GAMEZ Rep #: [id number] : 1985 Provider: Jaycob Argueta DO Age/Sex: 38/M [place] [facility] [facility] [place]: Signed Intake Vital Signs 05/14/24 14:50 07/30/24 02:02 Height 5 ft 6 in 5 ft 6 in Intake Visit Reasons: 4 M FU Chief Complaint: hospital f/u Guyline Operator Required: No Accompanied by: Is patient in pain?: No Allergies No Known Allergies Allergy (Verified 10/03/24 11:06) Medications ???Medication ???Instructions ???Recorded ???Confirmed ???Type pen needle, diabetic 32 gauge x #100 ea 03/29/24 07/30/24 Rx 5/32 (BD Ultra-Fine Lizzeth Pen Needle) insulin lispro 100 unit/mL 6 unit subcut TID dm 03/30/24 10/03/24 History subcutaneous pen (Humalog KwikPen (U-100) Insulin) lisinopril 20 mg tablet 20 mg PO DAILY bp #30 tabs 05/01/24 10/03/24 Rx blood-glucose meter,continuous #1 ea 05/04/24 07/30/24 Rx (Dexcom G7 Upper And Bottom Lacer Hand) gabapentin 100 mg capsule 200 mg PO [...] BID #60 tabs 08/15/24 10/03/24 Rx release COUNT INCLUDES THE [facility] Medical History (Updated 08/06/24 @ 00:01 by [...] to the office today for follow up. [facility] ED 01.25.24 abd pain with N/V x15 abd/pelvis CT 01.25.24 1. Urinary bladder distention may be transient/physiologic. Correlate clinically. 2. Mildly prominent bilateral inguinal lymph nodes, perhaps reactive. [facility] ED 01.27.24 - 01.29.24 abd pain [...] the stomach. Retained food in the duodenum. [facility] ED 7 abd pain abd/pelvis CT [...] with pa (more content not included)... Normal [facility] Gastroenterology Visit Repor ton 08-15-2024 Gastroenterology Visit Report [facility] [address] [place] [address] OFFICE VISIT Date of Service: 08/15/24 MR#: [id number] Acct: [id number] Name: WESTON GAMEZ Rep #: [id number] : 1985 Provider: RIGOBERTO Mathis Age/Sex: 38/M Location: [facility] [place] Status: Signed Intake Vital Signs 07/30/24 02:02 Height 5 ft 6 in Intake Visit Reasons: Hospital FU Chief Complaint: hospital f/u Guyline Operator Required: No Is patient in pain?: [...] #1 ea 05/04/24 07/30/24 Rx (Dexcom G7 Upper And Bottom Lacer Hand) gabapentin 100 mg capsule 200 mg PO [...] you fallen in the past year?: No PFSH Medical History (Updated 08/06/24 @ 00:01 [...] to the office today for hospital f/u. [facility] ED 01.25.24 abd pain with N/V x15 abd/pelvis CT 01.25.24 1. Urinary bladder distention may be transient/physiologic. Correlate clinically. 2. Mildly prominent bilateral inguinal lymph nodes, perhaps reactive. [facility] ED 01.27.24 - 01.29.24 abd pain [...] the stomach. Retained food in the duodenum. [facility] ED 7 abd pain abd/pelvis CT 05.14.24 No acute abdominal or pelvic abnormality. *BGI established 06.06.24 pt reports symptoms began about 3 weeks ago. Pt reports symptoms of occasional RLQ stabbing pain (more content not included)... Normal [facility] CNOVon 08-07-2024 CNOV Office Visit (FAMPWS ) -- WESTON GAMEZ ([id number]) 1985 M [facility] Date Time Provider Department 08/07/24 9:20 AM AUSTIN CAMARENA During your visit today, we recorded the following information about you: Pulse Respiration Blood pressure Weight 97/minute 14/minute 132/85 71.2 kg Austin Camarena APRN.HYDROELECTRIC SYSTEMS TECHNICIAN 08/07/2024 9:18 AM Signed Chief Complaint Patient [...] Anxiety Screening Never done Covid-19 Vaccine(3 - ) due on 07/09/2024 Influenza Vaccine(1) due on [...] immunization - ICD9: V03.89, ICD10: Z23 - [employer] COVID-19 VACCINE AGE 12+ YR (COMIRNATHari) 4. Hematemesis with nausea - ICD9: 578.0, 787.02, ICD10: K92.0 -Resolved, follow up with Dr. Argueta as scheduled 5. Acute gastric ulcer without hemorrhage or perforation - ICD9: 531.30, ICD10: K25.3 -Resolved, follow up with Dr. Argueta as scheduled Austin Camarena APRN.HYDROELECTRIC SYSTEMS TECHNICIAN Allergies As of Date: 08/07/2024 (No Known Allergies) Date Reviewed: 08/07/2024 Reviewed by: Lisseth Morel MA - Fully Assessed Reason f (more content not included)... Normal [facility] Basic Metabolic Profile (BMP )on 08-01-2024 BUN/CRE 15.4 RATIO Normal 10-20 [facility] Comment on above: Performed By: #### L 100.0500, L500.2500 #### [facility] [address] [place], [address] CA,Total 8.9 mg/dL Normal 8.5-10.1 [facility] Comment on above: Performed By: #### L 100.0500, L500.2500 #### [facility] [address] [place], [address] Chloride [Moles/Vol] 107 mmol/L Normal 98-[address] [facility] Comment on above: Performed By: #### L 100.0500, L500.2500 #### [facility] [address] [place], [address] CO2 [Moles/Vol] 24.0 mmol/L Normal 21.0-32.0 [facility] Comment on above: Performed By: #### L 100.0500, L500.2500 #### [facility] [address] [place], [address] Creatinine [Mass/Vol] 0.91 mg/dL Normal 0.70-1.30 [facility] Comment on above: Result Comment: The validity of the calculated GFR GFRAA in patients over 70 years has not been determined. Clinical correlation is essential. Performed By: #### L 100.0500, L500.2500 #### [facility] [address] [place], [address] ECRCL 99.32 ml/min Normal [facility] Comment on above: Performed By: #### L 100.0500, L500.2500 #### [facility] [address] [place], [address] EST GFR - AA 120 mL/min Normal >60 [facility] Comment on above: Result Comment: Afri can [place] GFR Calc Performed By: #### L 100.0500, L500.2500 #### [facility] [address] [place], [address] GAP 6 Normal 5-15 [facility] Comment on above: Performed By: #### L 100.0500, L500.2500 #### [facility] [address] [place], [address] GFR/1.73 sq M.predicted among non-blacks MDRD (S/P/Bld) [Vol rate/Area] 99 mL/min/{1.73_m2} Normal >60 [facility] Comment on above: Result Comment: Non- GFR Calc Performed By: #### L 100.0500, L500.2500 #### [facility] [address] [place], [address] Glucose [Mass/Vol] 199 mg/dL High 74-106 [facility] Comment on above: Result Comment: Fast ing Glucose result greater than or equal to 126 mg/dL suggests DIABETES MELLITUS per A.D.A. criteria. Performed By: #### L 100.0500, L500.2500 #### [facility] [address] [place], [address] Potassium [Moles/Vol] 3.7 mmol/L Normal 3.5-5.1 [facility] Comment on above: Performed By: #### L 100.0500, L500.2500 #### [facility] [address] [place], [address] Sodium [Moles/Vol] 137 mmol/L Normal 136-145 [facility] Comment on above: Performed By: #### L 100.0500, L500.2500 #### [facility] [address] [place], [address] Urea nitrogen [Mass/Vol] 14 mg/dL Normal 7-18 [facility] Comment on above: Performed By: #### L 100.0500, L500.2500 #### [facility] [address] [place], [address] Bedside Glucoseon 08-01-2024 FINGERSTICK GLU 225 mg/dL High 74-106 [facility] Comment on above: Result Comment: CORINNA GEMENT OF PATIENT CARE PER NURSING PROTOCOL Performed By: #### L 500.2500 #### [facility] [address] [place], [address] FINGERSTICK GLU 210 mg/dL High 74-106 [facility] Comment on above: Result Comment: CORINNA GEMENT OF PATIENT CARE PER NURSING PROTOCOL Performed By: #### L 501.080 #### [facility] [address] [place], [address] FINGERSTICK GLU 348 mg/dL High 74-106 [facility] Comment on above: Result Comment: CORINNA GEMENT OF PATIENT CARE PER NURSING PROTOCOL Performed By: #### L 100.0500, L500.2500 #### [facility] [address] [place], [address] CBC-Complete Blood Cnt No Di ffon 08-01-2024 Erythrocyte distribution width (RBC) [Ratio] 12.7 % Normal 11.6-14.6 [facility] Comment on above: Performed By: #### L 100.0500, L500.2500 #### [facility] [address] [place], [address] Hematocrit (Bld) [Volume fraction] 34.0 % Low 40-54 [facility] Comment on above: Performed By: #### L 100.0500, L500.2500 #### [facility] [address] [place], [address] Hemoglobin (Bld) [Mass/Vol] 11.2 g/dL Low 13.0-16.5 [facility] Comment on above: Performed By: #### L 100.0500, L500.2500 #### [facility] [address] [place], [address] MCH (RBC) [Entitic mass] 28.6 pg Normal 27.0-32.0 [facility] Comment on above: Performed By: #### L 100.0500, L500.2500 #### [facility] [address] [place], [address] MCHC (RBC) [Mass/Vol] 32.9 g/dL Normal 32-36 [facility] Comment on above: Performed By: #### L 100.0500, L500.2500 #### [facility] [address] [place], [address] MCV (RBC) [Entitic vol] 86.7 fL Normal 80-94 [facility] Comment on above: Performed By: #### L 100.0500, L500.2500 #### [facility] [address] [place], [address] Platelet mean volume (Bld) [Entitic vol] 9.8 fL Normal 6.2-12.0 [facility] Comment on above: Performed By: #### L 100.0500, L500.2500 #### [facility] [address] [place], [address] Platelets (Bld) [#/Vol] 361 10*3/uL Normal 150-450 [facility] Comment on above: Performed By: #### L 100.0500, L500.2500 #### [facility] [address] [place], [address] RBC (Bld) [#/Vol] 3.92 10*6/uL Low 4.6-6.2 [facility] Comment on above: Performed By: #### L 100.0500, L500.2500 #### [facility] [address] [place], [address] RDW SD 40.0 fl Normal 35.1-43.9 [facility] Comment on above: Performed By: #### L 100.0500, L500.2500 #### [facility] [address] [place], [address] WBC (Bld) [#/Vol] 12.1 10*3/uL High 4.4-11.0 [facility] Comment on above: Performed By: #### L 100.0500, L500.2500 #### [facility] [address] [place], [address] MR/PN.GIon 08-01-2024 MR/PN.GI [facility] Medical Records Department [address] [place] [address] Progress Note - GI 08/01/24 1727 MR#: [id number] Acct: [id number] Name: WESTON GAMEZ Rep #: [id number] : 1985 38 From: Jaycob Friend DO PCP: JIE Geller Status:DIS KINSEY Location: MS3 [id number] Subjective Subjective Patient is abdominal pain is [...] stable Charges/Coding Visit Charges Inpatient E M: 82319 Subs Hosp L3 08/01/24 1729 Cosigner Signature (if applicable): CC: Signed Normal [facility] Basic Metabolic Profile (BMP )on 07-31-2024 BUN Normal - [facility] Comment on above: Result Comment: Canc elled via OM: Ordered Performed By: #### L 100.0500, L500.2500 #### [facility] [address] [place], [place], [address] BUN/CRE Normal - [facility] Comment on above: Result Comment: Rowena yued via OM: Ordered Performed By: #### L 100.0500, L500.2500 #### [facility] [address] [place], [address] CA,Total Normal 8.5-10.1 [facility] Comment on above: Result Comment: Canc elled via OM: MD Ordered Performed By: #### L 100.0500, L500.2500 #### [facility] [address] [place], [address] CL Normal 98-107 [facility] Comment on above: Result Comment: Canc elled via OM: MD Ordered Performed By: #### L 100.0500, L500.2500 #### [facility] [address] [place], [address] CO2 Normal 21.0-32.0 [facility] Comment on above: Result Comment: Canc elled via OM: MD Ordered Performed By: #### L 100.0500, L500.2500 #### [facility] [address] [place], [address] CREAT,SERUM Normal 0.70-1.30 [facility] Comment on above: Result Comment: Canc elled via OM: MD Ordered Performed By: #### L 100.0500, L500.2500 #### [facility] [address] [place], [address] EST GFR Normal >60 [facility] Comment on above: Result Comment: Canc elled via OM: MD Ordered Performed By: #### L 100.0500, L500.2500 #### [facility] [address] [place], [address] EST GFR - AA Normal >60 [facility] Comment on above: Result Comment: Canc elled via OM: MD Ordered Performed By: #### L 100.0500, L500.2500 #### [facility] [address] [place], [address] GAP Normal 5-15 [facility] Comment on above: Result Comment: Canc elled via OM: MD Ordered Performed By: #### L 100.0500, L500.2500 #### [facility] [address] [place], [address] GLU Normal 74-106 [facility] Comment on above: Result Comment: Canc elled via OM: MD Ordered Performed By: #### L 100.0500, L500.2500 #### [facility] [address] [place], [address] Potassium Normal 3.5-5.1 [facility] Comment on above: Result Comment: Canc elled via OM: MD Ordered Performed By: #### L 100.0500, L500.2500 #### [facility] [address] [place], [address] Basic Metabolic Profile (BMP) Normal 136-145 [facility] Comment on above: Result Comment: Canc elled via OM: MD Ordered Performed By: #### L 100.0500, L500.2500 #### [facility] [address] [place], [address] Bedside Glucoseon 07-31-2024 FINGERSTICK GLU 169 mg/dL High 74-106 [facility] Comment on above: Result Comment: CORINNA GEMENT OF PATIENT CARE PER NURSING PROTOCOL Performed By: #### L 100.0500, L500.2500 #### [facility] [address] [place], [address] FINGERSTICK GLU 87 mg/dL Normal 74-106 [facility] Comment on above: Result Comment: CORINNA GEMENT OF PATIENT CARE PER NURSING PROTOCOL Performed By: #### L 100.0500, L500.2500 #### [facility] [address] [place], [address] FINGERSTICK GLU 102 mg/dL Normal 74-106 [facility] Comment on above: Result Comment: CORINNA GEMENT OF PATIENT CARE PER NURSING PROTOCOL Performed By: #### L 100.0500, L500.2500 #### [facility] [address] [place], [address] FINGERSTICK GLU 114 mg/dL High 74-106 [facility] Comment on above: Result Comment: CORINNA VELEZ OF PATIENT CARE PER NURSING PROTOCOL Performed By: #### L 100.0500, L500.2500 #### [facility] [address] [place], [address] CBC-Complete Blood Cnt No Di ffon 07-31-2024 Erythrocyte distribution width (RBC) [Ratio] 13.0 % Normal 11.6-14.6 [facility] Comment on above: Performed By: #### L 100.0500, L500.2500 #### [facility] [address] [place], [address] Hematocrit (Bld) [Volume fraction] 36.7 % Low 40-54 [facility] Comment on above: Performed By: #### L 100.0500, L500.2500 #### [facility] [address] [place], [address] Hemoglobin (Bld) [Mass/Vol] 11.7 g/dL Low 13.0-16.5 [facility] Comment on above: Performed By: #### L 100.0500, L500.2500 #### [facility] [address] [place], [address] MCH (RBC) [Entitic mass] 28.4 pg Normal 27.0-32.0 [facility] Comment on above: Performed By: #### L 100.0500, L500.2500 #### [facility] [address] [place], [address] MCHC (RBC) [Mass/Vol] 31.9 g/dL Low 32-36 [facility] Comment on above: Performed By: #### L 100.0500, L500.2500 #### [facility] [address] [place], [address] MCV (RBC) [Entitic vol] 89.1 fL Normal 80-94 [facility] Comment on above: Performed By: #### L 100.0500, L500.2500 #### [facility] [address] [place], [address] Platelet mean volume (Bld) [Entitic vol] 9.2 fL Normal 6.2-12.0 [facility] Comment on above: Performed By: #### L 100.0500, L500.2500 #### [facility] [address] [place], [address] Platelets (Bld) [#/Vol] 356 10*3/uL Normal 150-450 [facility] Comment on above: Performed By: #### L 100.0500, L500.2500 #### [facility] [address] [place], [address] RBC (Bld) [#/Vol] 4.12 10*6/uL Low 4.6-6.2 [facility] Comment on above: Performed By: #### L 100.0500, L500.2500 #### [facility] [address] [place], [address] RDW SD 42.5 fl Normal 35.1-43.9 [facility] Comment on above: Performed By: #### L 100.0500, L500.2500 #### [facility] [address] [place], [address] WBC (Bld) [#/Vol] 9.9 10*3/uL Normal 4.4-11.0 [facility] Comment on above: Performed By: #### L 100.0500, L500.2500 #### [facility] [address] [place], [address] EGD Reporton 07-31-2024 EGD Report [facility] Medical Records Department [address] [place] [address] EGD Report MR#: [id number] Acct: [id number] Name: WESTON GAMEZ Rep #: [id number] : 1985 38 From: Jaycob Argueta DO PCP: JIE Geller Status:ADM KINSEY Patient Name: Weston Gamez Procedure [...] psychiatric disorders Procedure Code(s): --- Professional --- 87669, Esophagogastroduodenoscopy , flexible, transoral; with biopsy, single or multiple CPT copyright 2021 [employer]. All rights reserved. The codes documented in this report are preliminary and upon tube trailer filler review may be revised to meet current compliance requirements. Jaycob Argueta DO 07/31/2024 1:35:10 PM This report has been signed electronically. Number of Addenda: 0 Note Initiated On: 07/31/2024 1:01 PM 07/31/24 1335 Date Jaycob Baer Signature: Date (if indicated) CC: SENIOR INVESTMENT ANALYST-C Austin Camarena; Jaycob Argueta DO Date Dictated: 07/31/24 1301 Date Transcribed: Director Of Planning: KAROLYN Signed Normal [facility] H Pylori (initial)on 024 H Pylori (initial) ------ Patient Age/Sex Location Account Attending Physician WESTON GAMEZ 38/M MS3 [id number] Dr. Victoria Davey, Specimen: [id number] Received: 08/01/24 Status: SILVANO Elle Num: [id number] Spec Type: IMMUNO Subm Dr: Jaycob Argueta DO PHYSICIAN INSTITUTION [place] [address] SPECIMEN INFORMATION: Tissue Source: A- Gastric cardia Clinical Info: Intractable vomiting with nausea, hematemesis Specimen Number: [id number] CPT code: 52529 METHODOLOGY: Deparaffinized sections of prefer/formalin-fixed tissue or [...] developed and their performance characteristics determined by [facility]. They may not have been cleared or approved by the U.S. Food and Drug Administration. The FDA has determined that such clearance or approval is not necessary. The above immunohistochemical/dualIS H markers are ordered and reviewed by the Pathologist. INTERPRETATION: A. Gastric cardia, biopsy: Positive for Helicobacter pylori organisms. 08/02/2024 Signed (signature on file) Dr. Gian Pham MD 08/02/24 1402 Normal [facility] Comment on above: Performed By: #### P H.PYLORI ####[facility] [address] [facility] [place], [address] MR/POSTOP.Ann 07-31-2024 MR/POSTOP.[facility] Medical Records Department [address] [place] [address] Anesthesia Postop Eval I 07/31/24 1330 MR#: [id number] Acct: [id number] Name: WESTON GAMEZ Rep #: [id number] : 1985 38 From: Jez Burnett PCP: JIE Geller Status:ADM KINSEY Y Race: AA Location: UT3 [id number] Anesthesia: Postop Eval I Current Vital Signs [...] document: Postop Eval 1 completed: Yes 07/31/24 1332 Date Jez Garcia Signature: Date CC: Signed Normal [facility] MR/PILYZKZK3if 07-31-2024 MR/POSTOPAN2 [facility] Medical Records Department [address] [place] [address] Anesthesia Postop Eval II 07/31/24 1559 MR#: [id number] Acct: [id number] Name: WESTON GMAEZ Rep #: [id number] : 1985 38 From: Codey Queen MD PCP: JIE Geller Status:ADM KINSEY Y Race: AA Location: [place] [address] Anesthesia Postop Eval I Sum Postop Eval [...] Codey Garcia Signature: Date CC: Signed Normal [facility] Special Stain Group Ion 07-10 Special Stain Group I -------- Patient Age/Sex Location Account Attending Physician WESTON GAMEZ 38/M MS3 [id number] Dr. Victoria Davey, DO Specimen: [id number] Received: 08/01/24 Status: SILVANO Almeida Num: [id number] Spec Type: EGD BIOPSY Subm Dr: Jaycob Argueta, HEADER OPERATION: EGD with biopsies PRE-OP DIAGNOSIS: Intractable [...] for Helicobacter pylori will be reported separately ([id number]). B. Alcian blue/PAS stain with matched control [...] Account Attending Physician WESTON GAMEZ 38/M MS3 [id number] Dr. Victoria Davey DO one cassette. Oliver 08/01/2024 TC:2 CPT:87794w9,08233 Patient Age/Sex Location Account Attending Physician WESTON GAMEZ 38/M MS[address] [id number] Dr. Victoria Davey, DO Signed (signature on file) Dr. Gian Pham MD 08/02/24 1403 Normal [facility] Comment on above: Performed By: #### P SSI ####[facility] [address] [place], [place], [address] Bedside Glucoseon 07-30-2024 FINGERSTICK GLU 142 mg/dL High -106 [facility] Comment on above: Result Comment: CORINNA GEMENT OF PATIENT CARE PER NURSING PROTOCOL Performed By: #### L 100.0500, L500.2500 #### [facility] [address] [place], [address] FINGERSTICK GLU 212 mg/dL High -106 [facility] Comment on above: Result Comment: CORINNA GEMENT OF PATIENT CARE PER NURSING PROTOCOL Performed By: #### L 501.080 ####[facility] [address] [place], [place], [address](091) FINGERSTICK GLU 197 mg/dL High -106 [facility] Comment on above: Result Comment: CORINNA GEMENT OF PATIENT CARE PER NURSING PROTOCOL Performed By: #### L 500.2500 #### [facility] [address] [place], [address] CBC W/Diff, Automatedon 07-10 Absolute Lymph 3.12 X10 3/uL Normal 0.83-4.51 [facility] Comment on above: Performed By: #### L 500.4050, L100.0100, L501.2450 ####[facility] [address] [place], [address] Absolute Neut 5.6 X10 3/uL Normal 2.0-7.7 [facility] Comment on above: Performed By: #### L 500.4050, L100.0100, L501.2450 ####[facility] [address] [place], [address] Basophils/100 WBC (Bld) 0.4 % Normal 0-1 [facility] Comment on above: Performed By: #### L 500.4050, L100.0100, L501.2450 ####[facility] [address] [place], [address] Eosinophils/100 WBC (Bld) 0.7 % Normal 0-5 [facility] Comment on above: Performed By: #### L 500.4050, L100.0100, L501.2450 ####[facility] [address] [place], [address] Erythrocyte distribution width (RBC) [Ratio] 12.9 % Normal 11.6-14.6 [facility] Comment on above: Performed By: #### L 500.4050, L100.0100, L501.2450 ####[facility] [address] [place], [address] Hematocrit (Bld) [Volume fraction] 34.8 % Low 40-54 [facility] Comment on above: Performed By: #### L 500.4050, L100.0100, L501.2450 ####[facility] [address] [place], [address] Hemoglobin (Bld) [Mass/Vol] 11.4 g/dL Low 13.0-16.5 [facility] Comment on above: Performed By: #### L 500.4050, L100.0100, L501.2450 ####[facility] [address] [place], [address] IG% 0.200 Normal 0.0-0.9 [facility] Comment on above: Result Comment: IG% - Immature Granulocytes (promyelocytes, myelocytes and metamyelocytes) > 1% indicates that a LEFT SHIFT is Present. Performed By: #### L 500.4050, L100.0100, L501.2450 ####[facility] [address] [place], [address] Lymphocytes/100 WBC (Bld) 31.8 % Normal 19-41 [facility] Comment on above: Performed By: #### L 500.4050, L100.0100, L501.2450 ####[facility] [address] [place], [address] MCH (RBC) [Entitic mass] 28.6 pg Normal 27.0-32.0 [facility] Comment on above: Performed By: #### L 500.4050, L100.0100, L501.2450 ####[facility] [address] [place], [address] MCHC (RBC) [Mass/Vol] 32.8 g/dL Normal 32-36 [facility] Comment on above: Performed By: #### L 500.4050, L100.0100, L501.2450 ####[facility] [address] [place], [address] MCV (RBC) [Entitic vol] 87.4 fL Normal 80-94 [facility] Comment on above: Performed By: #### L 500.4050, L100.0100, L501.2450 ####[facility] [address] [place], [address] Monocytes/100 WBC (Bld) 10.0 % Normal 0-10 [facility] Comment on above: Performed By: #### L 500.4050, L100.0100, L501.2450 ####[facility] [address] [place], [address] Neutrophils/100 WBC (Bld) 56.9 % Normal 47-70 [facility] Comment on above: Performed By: #### L 500.4050, L100.0100, L501.2450 ####[facility] [address] [place], [address] Nucleated RBC (Bld) [#/Vol] 0 10*3/uL Normal 0-5 [facility] Comment on above: Performed By: #### L 500.4050, L100.0100, L501.2450 ####[facility] [address] [place], [address] Platelet mean volume (Bld) [Entitic vol] 9.8 fL Normal 6.2-12.0 [facility] Comment on above: Performed By: #### L 500.4050, L100.0100, L501.2450 ####[facility] [address] [place], [address] Platelets (Bld) [#/Vol] 349 10*3/uL Normal 150-450 [facility] Comment on above: Performed By: #### L 500.4050, L100.0100, L501.2450 ####[facility] [address] [place], [address] RBC (Bld) [#/Vol] 3.98 10*6/uL Low 4.6-6.2 [facility] Comment on above: Performed By: #### L 500.4050, L100.0100, L501.2450 ####[facility] [address] [place], [address] RDW SD 41.4 fl Normal 35.1-43.9 [facility] Comment on above: Performed By: #### L 500.4050, L100.0100, L501.2450 ####[facility] [address] [place], [address] WBC (Bld) [#/Vol] 9.8 10*3/uL Normal 4.4-11.0 [facility] Comment on above: Performed By: #### L 500.4050, L100.0100, L501.2450 ####[facility] [address] [place], [address] Comprehensive Metabolic [facility] 07-30-2024 Albumin [Mass/Vol] 3.3 g/dL Normal 3.2-5.0 [facility] Comment on above: Performed By: #### L 500.2500 #### [facility] [address] [place], [address] Albumin/Globulin [Mass ratio] 0.9 {ratio} Normal 0.9-2.4 [facility] Comment on above: Performed By: #### L 500.2500 #### [facility] [address] [place], [address] ALK P 82 U/L Normal 45-117 [facility] Comment on above: Performed By: #### L 500.2500 #### [facility] [address] [place], [address] ALT [Catalytic activity/Vol] 18 U/L Normal 16-61 [facility] Comment on above: Performed By: #### L 500.2500 #### [facility] [address] [place], [address] AST [Catalytic activity/Vol] 27 U/L Normal 15-37 [facility] Comment on above: Performed By: #### L 500.2500 #### [facility] [address] [place], [address] Bilirubin [Mass/Vol] 0.60 mg/dL Normal 0.20-1.[address] [facility] Comment on above: Result Comment: For patients on eltrombopag therapy, use of [facility] TBIL is not recommended. Performed By: #### L 500.2500 #### [facility] [address] [place], [address] BUN/CRE 17.4 RATIO Normal 10-20 [facility] Comment on above: Performed By: #### L 500.2500 #### [facility] [address] [place], [address] CA,Total 8.5 mg/dL Normal 8.5-10.1 [facility] Comment on above: Performed By: #### L 500.2500 #### [facility] [address] [place], [address] Chloride [Moles/Vol] 107 mmol/L Normal 98-[address] [facility] Comment on above: Performed By: #### L 500.2500 #### [facility] [address] [place], [address] CO2 [Moles/Vol] 22.0 mmol/L Normal 21.0-32.0 [facility] Comment on above: Performed By: #### L 500.2500 #### [facility] [address] [place], [address] Creatinine [Mass/Vol] 0.92 mg/dL Normal 0.70-1.30 [facility] Comment on above: Result Comment: The validity of the calculated GFR GFRAA in patients over 70 years has not been determined. Clinical correlation is essential. Performed By: #### L 500.2500 #### [facility] [address] [place], [address] ECRCL 98.24 ml/min Normal [facility] Comment on above: Performed By: #### L 500.2500 #### [facility] [address] [place], [address] EST GFR - AA 118 mL/min Normal >60 [facility] Comment on above: Result Comment: Afri can Qatari GFR Calc Performed By: #### L 500.2500 #### [facility] [address] [place], [address] GAP 7 Normal 5-15 [facility] Comment on above: Performed By: #### L 500.2500 #### [facility] [address] [place], [address] GFR/1.73 sq M.predicted among non-blacks MDRD (S/P/Bld) [Vol rate/Area] 98 mL/min/{1.73_m2} Normal >60 [facility] Comment on above: Result Comment: Non- GFR Calc Performed By: #### L 500.2500 #### [facility] [address] [place], [address] Globulin (S) [Mass/Vol] 3.7 g/dL Normal 2.2-4.2 [facility] Comment on above: Performed By: #### L 500.2500 #### [facility] [address] [place], [address] Glucose [Mass/Vol] 182 mg/dL High 74-106 [facility] Comment on above: Result Comment: Fast ing Glucose result greater than or equal to 126 mg/dL suggests DIABETES MELLITUS per A.D.A. criteria. Performed By: #### L 500.2500 #### [facility] [address] [place], [address] Potassium [Moles/Vol] 4.0 mmol/L Normal 3.5-5.1 [facility] Comment on above: Performed By: #### L 500.2500 #### [facility] [address] [place], [address] Sodium [Moles/Vol] 136 mmol/L Normal 136-145 [facility] Comment on above: Performed By: #### L 500.2500 #### [facility] [address] [place], [address] T PROT 7.0 g/dL Normal 6.4-8.2 [facility] Comment on above: Performed By: #### L 500.2500 #### [facility] [address] [place], [address] Urea nitrogen [Mass/Vol] 16 mg/dL Normal 7-18 [facility] Comment on above: Performed By: #### L 500.2500 #### [facility] [address] [place], [address] H AND P Exam - Hospitaliston 07-30-2024 H&P Exam - Hospitalist [facility] Medical Records Department [address] [place] [address] H P Exam - Hospitalist 07/30/24 0049 MR#: [id number] Acct: [id number] Name: WESTON GAMEZ Rep #: [id number] : 1985 38 From: Brenda Hollins MD PCP: Austin Camarena, SENIOR INVESTMENT ANALYST-C Status:REG ER Location: ED HPI - General [...] gastroenterology outpatient who now represents to the [facility] ED on 07/28/24 secondary to recurrent [...] as Ativan 0.5 mg IV x 1. COUNT INCLUDES THE [facility] Medical History (Updated 07/30/24 @ 01:16 by [...] #1 ea 05/04/24 Unknown Rx (Dexcom G7 Upper And Bottom Lacer Hand) gabapentin 100 mg capsule 200 mg PO [...] (Updated 07/30 (more content not included)... Normal [facility] Lipaseon 07-30-2024 Lipase [Catalytic activity/Vol] 31 U/L Normal 13-75 [facility] Comment on above: Result Comment: Lacey melendez note: LIPASE revised reference range effective 23. New Lipase methodology. Expected to produce lower values than the previous assay method. NEW Reference Range: 13 - 75 U/L Performed By: #### L 500.2500 #### [facility] [address] [place], [address] MR/CON.PCM.GIon 07-30-2024 MR/CON.PCM.GI [facility] Medical Records Department [address] [place] [address] Consultation - GI 07/30/24 1045 MR#: [id number] Acct: [id number] Name: WESTON GAMEZ Rep #: [id number] : 1985 38 From: Jaycob Argueta DO PCP: Austin Camarena NP-C Status:ADM KINSEY Location: [place] [address] HPI Consult Data Date of Consult: 07/30/24 HPI Narrative Reason for Consultation: Abdominal pain with nausea vomiting HPI Narrative: WESTON GAMEZ, is a 38 M who presented to [facility] ED on 07/29/2024 with intractable nausea and [...] abdominal pain. Some cramping. Still some nausea. COUNT INCLUDES THE [facility] Medical History Former tobacco use Cannabis use [...] #1 ea 05/04/24 Unknown Rx (Dexcom G7 Upper And Bottom Lacer Hand) gabapentin 100 mg capsule 200 mg PO [...] vascular acci (more content not included)... Normal [facility] Magnesiumon 07-30-2024 Magnesium [Mass/Vol] 1.7 mg/dL Normal 1.6-2.[address] [facility] Comment on above: Order Comment: Comme nts: May add to ED labsComments: may add to ED labs Result Comment: Mode rate Hemolysis, Result may be falsely increased. Performed By: #### L 501.2300, L501.5200 ####[facility] [address] [place], [address] Phosphoruson 07-30-2024 Phosphate [Mass/Vol] 2.4 mg/dL Low 2.5-4.[address] [facility] Comment on above: Order Comment: Comme nts: May add to ED labsComments: may add to ED labs Performed By: #### L 501.2300, L501.5200 ####[facility] [address] [place], [address] Acetone Serumon 07-29-2024 ACETONE SERUM Negative Normal NEG [facility] Comment on above: Performed By: #### L 501.6900 ####[facility] [address] [place], [address] Basic Metabolic Profile (BMP )on 07-29-2024 BUN/CRE 19.8 RATIO Normal 10-20 [facility] Comment on above: Performed By: #### L 100.0500, L500.2500 #### [facility] [address] [place], [address] CA,Total 9.6 mg/dL Normal 8.5-10.1 [facility] Comment on above: Performed By: #### L 100.0500, L500.2500 #### [facility] [address] [place], [address] Chloride [Moles/Vol] 99 mmol/L Normal 98-[address] [facility] Comment on above: Performed By: #### L 100.0500, L500.2500 #### [facility] [address] [place], [address] CO2 [Moles/Vol] 23.0 mmol/L Normal 21.0-32.0 [facility] Comment on above: Performed By: #### L 100.0500, L500.2500 #### [facility] [address] [place], [address] Creatinine [Mass/Vol] 1.26 mg/dL Normal 0.70-1.30 [facility] Comment on above: Result Comment: The validity of the calculated GFR GFRAA in patients over 70 years has not been determined. Clinical correlation is essential. Performed By: #### L 100.0500, L500.2500 #### [facility] [address] [place], [address] ECRCL 71.73 ml/min Normal [facility] Comment on above: Performed By: #### L 100.0500, L500.2500 #### [facility] [address] [place], [address] EST GFR - AA 82 mL/min Normal >60 [facility] Comment on above: Result Comment: Afri can Qatari GFR Calc Performed By: #### L 100.0500, L500.2500 #### [facility] [address] [place], [address] GAP 10 Normal 5-15 [facility] Comment on above: Performed By: #### L 100.0500, L500.2500 #### [facility] [address] [place], [address] GFR/1.73 sq M.predicted among non-blacks MDRD (S/P/Bld) [Vol rate/Area] 68 mL/min/{1.73_m2} Normal >60 [facility] Comment on above: Result Comment: Non- GFR Calc Performed By: #### L 100.0500, L500.2500 #### [facility] [address] [place], [address] Glucose [Mass/Vol] 244 mg/dL High 74-106 [facility] Comment on above: Result Comment: Gluc ose result greater than or equal to 200 mg/dL suggests DIABETES MELLITUS per A.D.A. criteria. Performed By: #### L 100.0500, L500.2500 #### [facility] [address] [place], [address] Potassium [Moles/Vol] 4.7 mmol/L Normal 3.5-5.1 [facility] Comment on above: Result Comment: Mode rate Hemolysis, Result may be falsely increased. Performed By: #### L 100.0500, L500.2500 #### [facility] [address] [place], [address] Sodium [Moles/Vol] 132 mmol/L Low 136-145 [facility] Comment on above: Performed By: #### L 100.0500, L500.2500 #### [facility] [address] [place], [address] Urea nitrogen [Mass/Vol] 25 mg/dL High 7-18 [facility] Comment on above: Performed By: #### L 100.0500, L500.2500 #### [facility] [address] [place], [address] CBC W/Diff, Automatedon 09-2 -2023 Absolute Lymph 1.98 X10 3/uL Normal 0.83-4.51 [facility] Comment on above: Performed By: #### L 100.0100 ####[facility] [address] [place], [address] Absolute Neut 8.4 X10 3/uL High 2.0-7.7 [facility] Comment on above: Performed By: #### L 100.0100 ####[facility] [address] [place], [address] Basophils/100 WBC (Bld) 0.3 % Normal 0-1 [facility] Comment on above: Performed By: #### L 100.0100 ####[facility] [address] [place], [address] Eosinophils/100 WBC (Bld) 0.1 % Normal 0-5 [facility] Comment on above: Performed By: #### L 100.0100 ####[facility] [address] [place], [address] Erythrocyte distribution width (RBC) [Ratio] 12.9 % Normal 11.6-14.6 [facility] Comment on above: Performed By: #### L 100.0100 ####[facility] [address] [place], [address] Hematocrit (Bld) [Volume fraction] 38.9 % Low 40-54 [facility] Comment on above: Performed By: #### L 100.0100 ####[facility] [address] [place], [address] Hemoglobin (Bld) [Mass/Vol] 12.9 g/dL Low 13.0-16.5 [facility] Comment on above: Performed By: #### L 100.0100 ####[facility] [address] [place], [address] IG% 0.400 Normal 0.0-0.9 [facility] Comment on above: Result Comment: IG% - Immature Granulocytes (promyelocytes, myelocytes and metamyelocytes) > 1% indicates that a LEFT SHIFT is Present. Performed By: #### L 100.0100 ####[facility] [address] [place], [address] Lymphocytes/100 WBC (Bld) 17.7 % Low 19-41 [facility] Comment on above: Performed By: #### L 100.0100 ####[facility] [address] [place], [address] MCH (RBC) [Entitic mass] 28.7 pg Normal 27.0-32.0 [facility] Comment on above: Performed By: #### L 100.0100 ####[facility] [address] [place], [address] MCHC (RBC) [Mass/Vol] 33.2 g/dL Normal 32-36 [facility] Comment on above: Performed By: #### L 100.0100 ####[facility] [address] [place], [address] MCV (RBC) [Entitic vol] 86.4 fL Normal 80-94 [facility] Comment on above: Performed By: #### L 100.0100 ####[facility] [address] [place], [address] Monocytes/100 WBC (Bld) 5.9 % Normal 0-10 [facility] Comment on above: Performed By: #### L 100.0100 ####[facility] [address] [place], [address] Neutrophils/100 WBC (Bld) 75.6 % High 47-70 [facility] Comment on above: Performed By: #### L 100.0100 ####[facility] [address] [place], [address] Nucleated RBC (Bld) [#/Vol] 0 10*3/uL Normal 0-5 [facility] Comment on above: Performed By: #### L 100.0100 ####[facility] [address] [place], [address] Platelet mean volume (Bld) [Entitic vol] 9.2 fL Normal 6.2-12.0 [facility] Comment on above: Performed By: #### L 100.0100 ####[facility] [address] [place], [address] Platelets (Bld) [#/Vol] 387 10*3/uL Normal 150-450 [facility] Comment on above: Performed By: #### L 100.0100 ####[facility] [address] [place], [address] RBC (Bld) [#/Vol] 4.50 10*6/uL Low 4.6-6.2 [facility] Comment on above: Performed By: #### L 100.0100 ####[facility] [address] [place], [address] RDW SD 40.7 fl Normal 35.1-43.9 [facility] Comment on above: Performed By: #### L 100.0100 ####[facility] [address] [place], [address] WBC (Bld) [#/Vol] 11.2 10*3/uL High 4.4-11.0 [facility] Comment on above: Performed By: #### L 100.0100 ####[facility] [address] [place], [address] Chest 1 View (Portable)on Chest 1 View (Portable) [facility] Imaging Services [address] [place] [address] Chest 1 View (Portable) MR#: [id number] Acct: [id number] Name: WESTON GAMEZ Rep #: [id number] : 1985 M 38 From: Yang Roland MD PCP: Austin Camarena, SENIOR INVESTMENT ANALYST-C Status: REG ER Study: Chest 1 View (Portable) Date of Exam: 07/29/24 Exam# [id number] Ordering Dr: Luis Alberto Walker MD [id number] STUDY: X-RAY CHEST REASON FOR EXAM: Male, [...] Roland MD at 23:46 EDT , CC: SENIOR INVESTMENT ANALYST-C Austin Camarena; Dr. Luis Alberto Walker MD Director Of Planning: Signed Normal [facility] Emergency Department Summary on 07-29-2024 Emergency Department Summary [facility] Medical Records Department [address] [place] [address] Emergency Department Summary 07/29/24 MR#: [id number] Acct: [id number] Name: WESTON GAMEZ Rep #: [id number] : 1985 38 From: Luis Alberto Walker MD PCP: Austin Camarena, SENIOR INVESTMENT ANALYST-C Status:ADM KINSEY Location: MS3 [id number] HPI HPI - GI History of Present [...] he is not able to keep down. [facility] Medical History Hypertension Substance abuse Schizophrenia Anxiety [...] #1 ea 05/04/24 Unknown Rx (Dexcom G7 Upper And Bottom Lacer Hand) gabapentin 100 mg capsule 200 mg PO [...] mucous membranes (more content not included)... Normal [facility] Lipaseon 07-29-2024 Lipase [Catalytic activity/Vol] 35 U/L Normal 13-75 [facility] Comment on above: Result Comment: Lacey melendez note: LIPASE revised reference range effective 23. New Lipase methodology. Expected to produce lower values than the previous assay method. NEW Reference Range: 13 - 75 U/L Performed By: #### L 100.0500, L500.2500 #### [facility] [address] [place], [address] Venous Blood Gason 4 Blood Gas Type TERA Normal [facility] Comment on above: Performed By: #### L 500.2500 #### [facility] [address] [place], [address] CO2 [Moles/Vol] 23 mmol/L Normal 23-33 [facility] Comment on above: Performed By: #### L 500.2500 #### [facility] [address] [place], [address] FI02 21.0 Normal [facility] Comment on above: Performed By: #### L 500.2500 #### [facility] [address] [place], [address] HCO3 (Bld) [Moles/Vol] 22 mmol/L Normal 22-26 [facility] Comment on above: Performed By: #### L 500.2500 #### [facility] [address] [place], [address] O2 Delivery Dev Room Air Normal [facility] Comment on above: Performed By: #### L 500.2500 #### [facility] [address] [place], [address] SITE Not entered Normal [facility] Comment on above: Performed By: #### L 500.2500 #### [facility] [address] [place], [address] VBG BE -3 mmol/L Low -1.0-3.5 [facility] Comment on above: Performed By: #### L 500.2500 #### [facility] [address] [place], [address] VBG pCO2 37.2 mmHg Low 41-51 [facility] Comment on above: Performed By: #### L 500.2500 #### [facility] [address] [place], [address] VBG pH 7.38 Normal 7.32-7.42 [facility] Comment on above: Performed By: #### L 500.2500 #### [facility] [address] [place], [address] VBG PO2 35 mmHg Normal 25-40 [facility] Comment on above: Performed By: #### L 500.2500 #### [facility] [address] [place], [address] VBG SO2 66 Normal 50-70 [facility] Comment on above: Performed By: #### L 500.2500 #### [facility] [address] [place], [address] Abdomen/Pelvis W IV Cont ONL Yon 07-28-2024 Abdomen/Pelvis W IV Cont ONLY [facility] Imaging Services [address] [place] [address] Abdomen/Pelvis W IV Cont ONLY MR#: [id number] Acct: [id number] Name: WESTON GAMEZ Rep #: [id number] : 1985 M 38 From: Lupillo Mejia MD PCP: Austin Camarena, SENIOR INVESTMENT ANALYST-C Status: REG ER Study: Abdomen/Pelvis W IV Cont ONLY Date of Exam: Exam# [id number] Ordering Dr: Jose R Osorio DO [id number] INDICATION: abdominal pain EXAMINATION: CT Abdomen And [...] an acute intra-abdominal abnormality. Electronically Signed: Lupillo MejiaDO at 23:40 EDT , CC: JIE Camarena; Dr. Jose R Osorio DO Director Of Planning: Signed Normal [facility] CBC W/Diff, Automatedon 07-10 Absolute Lymph 1.82 X10 3/uL Normal 0.83-4.51 [facility] Comment on above: Performed By: #### L 500.4050, L100.0100, L501.2450 #### [facility] [address] [place], [address] Absolute Neut 9.5 X10 3/uL High 2.0-7.7 [facility] Comment on above: Performed By: #### L 500.4050, L100.0100, L501.2450 #### [facility] [address] [place], [address] Basophils/100 WBC (Bld) 0.7 % Normal 0-1 [facility] Comment on above: Performed By: #### L 500.4050, L100.0100, L501.2450 #### [facility] [address] [place], [address] Eosinophils/100 WBC (Bld) 0.2 % Normal 0-5 [facility] Comment on above: Performed By: #### L 500.4050, L100.0100, L501.2450 #### [facility] [address] [place], [address] Erythrocyte distribution width (RBC) [Ratio] 12.5 % Normal 11.6-14.6 [facility] Comment on above: Performed By: #### L 500.4050, L100.0100, L501.2450 #### [facility] [address] [place], [address] Hematocrit (Bld) [Volume fraction] 38.9 % Low 40-54 [facility] Comment on above: Performed By: #### L 500.4050, L100.0100, L501.2450 #### [facility] [address] [place], [address] Hemoglobin (Bld) [Mass/Vol] 12.9 g/dL Low 13.0-16.5 [facility] Comment on above: Performed By: #### L 500.4050, L100.0100, L501.2450 #### [facility] [address] [place], [address] IG% 0.300 Normal 0.0-0.9 [facility] Comment on above: Result Comment: IG% - Immature Granulocytes (promyelocytes, myelocytes and metamyelocytes) > 1% indicates that a LEFT SHIFT is Present. Performed By: #### L 500.4050, L100.0100, L501.2450 #### [facility] [address] [place], [address] Lymphocytes/100 WBC (Bld) 14.8 % Low 19-41 [facility] Comment on above: Performed By: #### L 500.4050, L100.0100, L501.2450 #### [facility] [address] [place], [address] MCH (RBC) [Entitic mass] 28.5 pg Normal 27.0-32.0 [facility] Comment on above: Performed By: #### L 500.4050, L100.0100, L501.2450 #### [facility] [address] [place], [address] MCHC (RBC) [Mass/Vol] 33.2 g/dL Normal 32-36 [facility] Comment on above: Performed By: #### L 500.4050, L100.0100, L501.2450 #### [facility] [address] [place], [address] MCV (RBC) [Entitic vol] 86.1 fL Normal 80-94 [facility] Comment on above: Performed By: #### L 500.4050, L100.0100, L501.2450 #### [facility] [address] [place], [address] Monocytes/100 WBC (Bld) 6.4 % Normal 0-10 [facility] Comment on above: Performed By: #### L 500.4050, L100.0100, L501.2450 #### [facility] [address] [place], [address] Neutrophils/100 WBC (Bld) 77.6 % High 47-70 [facility] Comment on above: Performed By: #### L 500.4050, L100.0100, L501.2450 #### [facility] [address] [place], [address] Nucleated RBC (Bld) [#/Vol] 0 10*3/uL Normal 0-5 [facility] Comment on above: Performed By: #### L 500.4050, L100.0100, L501.2450 #### [facility] [address] [place], [address] Platelet mean volume (Bld) [Entitic vol] 9.7 fL Normal 6.2-12.0 [facility] Comment on above: Performed By: #### L 500.4050, L100.0100, L501.2450 #### [facility] [address] [place], [address] Platelets (Bld) [#/Vol] 385 10*3/uL Normal 150-450 [facility] Comment on above: Performed By: #### L 500.4050, L100.0100, L501.2450 #### [facility] [address] [place], [address] RBC (Bld) [#/Vol] 4.52 10*6/uL Low 4.6-6.2 [facility] Comment on above: Performed By: #### L 500.4050, L100.0100, L501.2450 #### [facility] [address] [place], [address] RDW SD 39.4 fl Normal 35.1-43.9 [facility] Comment on above: Performed By: #### L 500.4050, L100.0100, L501.2450 #### [facility] [address] [place], [address] WBC (Bld) [#/Vol] 12.3 10*3/uL High 4.4-11.0 [facility] Comment on above: Performed By: #### L 500.4050, L100.0100, L501.2450 #### [facility] [address] [place], [address] Comprehensive Metabolic Prof [facility] 07-28-2024 Albumin [Mass/Vol] 4.1 g/dL Normal 3.2-5.0 [facility] Comment on above: Performed By: #### L 500.4050, L100.0100, L501.2450 #### [facility] [address] [place], [address] Albumin/Globulin [Mass ratio] 0.9 {ratio} Normal 0.9-2.4 [facility] Comment on above: Performed By: #### L 500.4050, L100.0100, L501.2450 #### [facility] [address] [place], [address] ALK P 110 U/L Normal 45-117 [facility] Comment on above: Performed By: #### L 500.4050, L100.0100, L501.2450 #### [facility] [address] [place], [address] ALT [Catalytic activity/Vol] 28 U/L Normal 16-61 [facility] Comment on above: Performed By: #### L 500.4050, L100.0100, L501.2450 #### [facility] [address] [place], [address] AST [Catalytic activity/Vol] 41 U/L High 15-37 [facility] Comment on above: Performed By: #### L 500.4050, L100.0100, L501.2450 #### [facility] [address] [place], [address] Bilirubin [Mass/Vol] 0.40 mg/dL Normal 0.20-1.[address] [facility] Comment on above: Result Comment: For patients on eltrombopag therapy, use of Dimension Willard TBIL is not recommended. Performed By: #### L 500.4050, L100.0100, L501.2450 #### [facility] [address] [place], [address] BUN/CRE 17.5 RATIO Normal 10-20 [facility] Comment on above: Performed By: #### L 500.4050, L100.0100, L501.2450 #### [facility] [address] [place], [address] CA,Total 9.3 mg/dL Normal 8.5-10.1 [facility] Comment on above: Performed By: #### L 500.4050, L100.0100, L501.2450 #### [facility] [address] [place], [address] Chloride [Moles/Vol] 100 mmol/L Normal 98-[address] [facility] Comment on above: Performed By: #### L 500.4050, L100.0100, L501.2450 #### [facility] [address] [place], [address] CO2 [Moles/Vol] 21.0 mmol/L Normal 21.0-32.0 [facility] Comment on above: Performed By: #### L 500.4050, L100.0100, L501.2450 #### [facility] [address] [place], [address] Creatinine [Mass/Vol] 1.03 mg/dL Normal 0.70-1.30 [facility] Comment on above: Result Comment: The validity of the calculated GFR GFRAA in patients over 70 years has not been determined. Clinical correlation is essential. Performed By: #### L 500.4050, L100.0100, L501.2450 #### [facility] [address] [place], [address] ECRCL 87.75 ml/min Normal [facility] Comment on above: Performed By: #### L 500.4050, L100.0100, L501.2450 #### [facility] [address] [place], [address] EST GFR - AA 104 mL/min Normal >60 [facility] Comment on above: Result Comment: Afri can Qatari GFR Calc Performed By: #### L 500.4050, L100.0100, L501.2450 #### [facility] [address] [place], [address] GAP 12 Normal 5-15 [facility] Comment on above: Performed By: #### L 500.4050, L100.0100, L501.2450 #### [facility] [address] [place], [address] GFR/1.73 sq M.predicted among non-blacks MDRD (S/P/Bld) [Vol rate/Area] 86 mL/min/{1.73_m2} Normal >60 [facility] Comment on above: Result Comment: Non- GFR Calc Performed By: #### L 500.4050, L100.0100, L501.2450 #### [facility] [address] [place], [address] Globulin (S) [Mass/Vol] 4.6 g/dL High 2.2-4.2 [facility] Comment on above: Performed By: #### L 500.4050, L100.0100, L501.2450 #### [facility] [address] [place], [address] Glucose [Mass/Vol] 259 mg/dL High 74-106 [facility] Comment on above: Result Comment: Gluc ose result greater than or equal to 200 mg/dL suggests DIABETES MELLITUS per A.D.A. criteria. Performed By: #### L 500.4050, L100.0100, L501.2450 #### [facility] [address] [place], [address] Potassium [Moles/Vol] 3.7 mmol/L Normal 3.5-5.1 [facility] Comment on above: Performed By: #### L 500.4050, L100.0100, L501.2450 #### [facility] [address] [place], [address] Sodium [Moles/Vol] 133 mmol/L Low 136-145 [facility] Comment on above: Performed By: #### L 500.4050, L100.0100, L501.2450 #### [facility] [address] [place], [address] T PROT 8.7 g/dL High 6.4-8.2 [facility] Comment on above: Performed By: #### L 500.4050, L100.0100, L501.2450 #### [facility] [address] [place], [address] Urea nitrogen [Mass/Vol] 18 mg/dL Normal 7-18 [facility] Comment on above: Performed By: #### L 500.4050, L100.0100, L501.2450 #### [facility] [address] [place], [address] Emergency Department Summary on 07-28-2024 Emergency Department Summary [facility] System Medical Records Department [address] [place] [address] Emergency Department Summary 07/28/24 MR#: [id number] Acct: [id number] Name: WESTON GAMEZ Rep #: [id number] : 1985 38 From: Jose R Osorio DO PCP: JIE Geller Status:REG ER Location: ED HPI History of Present Illness [facility] Medical History Hypertension Substance abuse Schizophrenia [...] #1 ea 05/04/24 Unknown Rx (Dexcom G7 Upper And Bottom Lacer Hand) gabapentin 100 mg capsule 200 mg PO [...] 99 97 Oxygen Delivery Method Room Air MDM MDM MDM Narrative Medical decision making narrative: HISTORY OF [...] reviewed, Vital signs reviewed Constitutional: please see mdm HENT: MMM Eyes: Pupils equal round and [...] intact, 5/5 (more content not included)... Normal [facility] Lipaseon 07-28-2024 Lipase [Catalytic activity/Vol] 20 U/L Normal 13-75 [facility] Comment on above: Result Comment: Lacey melendez note: LIPASE revised reference range effective 23. New Lipase methodology. Expected to produce lower values than the previous assay method. NEW Reference Range: 13 - 75 U/L Performed By: #### L 500.4050, L100.0100, L501.2450 #### [facility] [address] [place], [address] Endocrinology Visit Reporton 07-05-2024 Endocrinology Visit Report [facility] [address] [place] [address] OFFICE VISIT Date of Service: 07/05/24 MR#: [id number] Acct: [id number] Name: WESTON GAMEZ Rep #: [id number] : 1985 Provider: JIE phelan Age/Sex: 38/M [place] [facility] Status: Signed Intake Vital Signs 04/06/24 09:51 [...] 3 M FU Chief Complaint: f/u diabetes Guyline Operator Required: No Accompanied by: Self Is patient in pain?: No Allergies No Known Allergies Allergy (Verified 07/05/24 10:14) Medications ???Medication ???Instructions ???Recorded ???Confirmed ???Type insulin glargine-yfgn 100 unit/mL 15 unit (0.15 mL) subcut QHS #15 mL 01/29/24 07/05/24 Rx (3 mL) subcutaneous pen pen needle, diabetic 32 gauge x #100 ea 03/29/24 07/05/24 Rx 5/32 (BD Ultra-Fine Lizzeth Pen Needle) insulin lispro 100 unit/mL 5 unit subcut TID 03/30/24 07/05/24 History subcutaneous pen (Humalog KwikPen (U-100) Insulin) blood-glucose sensor (Dexcom G7 #3 ea 04/06/24 07/05/24 Rx Sensor device) lisinopril 20 mg tablet 20 mg PO DAILY #30 tabs 05/01/24 07/05/24 Rx metoclopramide HCl 5 mg tablet 5 mg PO Q6H #120 tabs 05/01/24 07/05/24 Rx pantoprazole 40 mg tablet,delayed 40 mg PO BID #60 tabs 05/01/24 07/05/24 Rx release blood-glucose meter,continuous #1 ea 05/04/24 07/05/24 Rx (Dexcom G7 Upper And Bottom Lacer Hand) gabapentin 100 mg capsule 200 mg PO TID 06/06/24 07/05/24 History insulin pump cart,automated,BT #10 ea 07/05/24 07/05/24 Rx (Omnipod 5 G6 Pods (Gen 5) subcutaneous cartridge) insulin pump cartridge,automated #1 ea 07/05/24 07/05/24 Rx dose,BT with controller subcutaneous (Omnipod 5 G6 Intro Kit (Gen 5) subcutaneous cartridge with controller) COUNT INCLUDES [facility] Medical History Hypertension Substance abuse Schizophrenia [...] Heart Sounds (more content not included)... Normal [facility] .Auto Diffon 05-05-2024 Basophil, Absolute 0.1 10 3/mcL Normal 0.0-0.2 [facility] Comment on above: Performed By: #### C MICA, TRISTEN, MDW, GFR, MG, CBC, ADIFF #### [address] [address] Basophils/100 WBC (Bld) 0.5 % Normal 0.0-2.5 [facility] ([place]) Comment on above: Performed By: #### C MICA, TRISTEN, MDW, GFR, MG, CBC, ADIFF #### [address] [address] Eosinophil, Absolute 0.0 10 3/mcL Normal 0.0-0.4 [facility] ([place]) Comment on above: Performed By: #### C MICA, TRISTEN, MDW, GFR, MG, CBC, ADIFF #### [address] [address] Eosinophils/100 WBC (Bld) 0.4 % Normal 0.0-7.0 [facility] ([place] Comment on above: Performed By: #### C MICA, TRISTEN, MDW, GFR, MG, CBC, ADIFF #### [address] [address] Lymphocyte, Absolute 3.2 10 3/mcL Normal 0.8-3.9 [facility] ([place] Comment on above: Performed By: #### C MICA, TRISTEN, MDW, GFR, MG, CBC, ADIFF #### [address] [address] Lymphocytes/100 WBC (Bld) 26.3 % Normal 10.0-50.0 [facility] ([place] Comment on above: Performed By: #### C MICA, TRISTEN, MDW, GFR, MG, CBC, ADIFF #### [address] [address] Monocyte, Absolute 1.1 10 3/mcL High 0.2-1.0 [facility] Comment on above: Performed By: #### C MP, ANEU, MDW, GFR, MG, CBC, ADIFF #### [address] [address] Monocytes/100 WBC (Bld) 8.9 % Normal 1.7-13.0 [facility] ([place] Comment on above: Performed By: #### C MP, ANEU, MDW, GFR, MG, CBC, ADIFF #### [address] [address] Neutrophils/100 WBC (Bld) 63.9 % Normal 37.0-80.0 [facility] ([place] Comment on above: Performed By: #### C MP, ANEU, MDW, GFR, MG, CBC, ADIFF #### [address] [address] .GFRon 05-05-2024 GFR Non- 39 ml/min/1.73sqm Normal [facility] ([place] Comment on above: Result Comment: GFR Population [...] ANEU, MDW, GFR, MG, CBC, ADIFF #### [address] [address] GFR 48 ml/min/1.73sqm Normal [facility] ([place] Comment on above: Result Comment: GFR Population [...] mL/min/1.73 square meters Performed By: #### C TRISTEN NINO, MDW, GFR, MG, CBC, ADIFF #### [address] [address] .MDWon 05-05-2024 Monocyte Distribution Width 14.94 Normal 0.00-20.00 [facility] ([place] Comment on above: Result Comment: For ED adult patients suspected of sepsis, MDW<=20.0 does not rule out sepsis or risk of sepsis Performed By: #### C TRISTEN NINO, MDW, GFR, MG, CBC, ADIFF #### [address] [address] .NEUABSon 05-05-2024 Neutrophil, Absolute 7.9 10 3/mcL High 2.9-6.2 [facility] ([place]) Comment on above: Performed By: #### C TRISTEN NINO MDW, GFR, MG, CBC, ADIFF #### [address] [address] CBCon 05-05-2024 Erythrocyte distribution width (RBC) [Ratio] 14.2 % Normal 11.5-14.5 [facility] ([place] Comment on above: Performed By: #### C TRISTEN NINO, MDW, GFR, MG, CBC, ADIFF #### [address] [address] Hematocrit (Bld) [Volume fraction] 42.4 % Normal 42.0-52.0 [facility] ([place] Comment on above: Performed By: #### C MP, ANEU, MDW, GFR, MG, CBC, ADIFF #### [address] [address] Hgb 14.3 G/dL Normal 14.0-18.0 [facility] ([place] Comment on above: Performed By: #### C MP, ANEU, MDW, GFR, MG, CBC, ADIFF #### [place] [address] MCH (RBC) [Entitic mass] 29.8 pg Normal 27.0-31.2 [facility] ([place] Comment on above: Performed By: #### C MP, ANEU, MDW, GFR, MG, CBC, ADIFF #### [place] [address] MCHC 33.7 G/dL Normal 31.8-35.4 [facility] ([place] Comment on above: Performed By: #### C MP, ANEU, MDW, GFR, MG, CBC, ADIFF #### [address] [address] MCV (RBC) [Entitic vol] 88.5 fL Normal 80.0-94.0 [facility] ([place] Comment on above: Performed By: #### C MP, ANEU, MDW, GFR, MG, CBC, ADIFF #### [address] [address] Platelet 404 10 3/mcL High 130-400 [facility] ([place] Comment on above: Performed By: #### C MP, ANEU, MDW, GFR, MG, CBC, ADIFF #### [address] [address] Platelet mean volume (Bld) [Entitic vol] 7.4 fL Normal 7.4-10.4 [facility] ([place] Comment on above: Performed By: #### C MP, ANEU, MDW, GFR, MG, CBC, ADIFF #### [place] [address] RBC 4.78 10 6/mcL Normal 4.04-6.13 [facility] ([place] Comment on above: Performed By: #### C MP, ANEU, MDW, GFR, MG, CBC, ADIFF #### [address] [address] WBC 12.3 10 3/mcL High 4.6-10.8 [facility] ([place] Comment on above: Performed By: #### C MP, ANEU, MDW, GFR, MG, CBC, ADIFF #### [address] [address] CMPon 05-05-2024 Albumin Level 4.3 G/dL Normal 3.5-5.0 [facility] ([place] Comment on above: Performed By: #### C MP, ANEU, MDW, GFR, MG, CBC, ADIFF #### [address] [address] Albumin/Globulin [Mass ratio] 1.0 {ratio} Low 1.1-2.5 [facility] ([place] Comment on above: Performed By: #### C MP, ANEU, MDW, GFR, MG, CBC, ADIFF #### [address] [address] ALP [Catalytic activity/Vol] 98 U/L Normal 40-135 [facility] ([place] Comment on above: Performed By: #### C MP, ANEU, MDW, GFR, MG, CBC, ADIFF #### [address] [address] ALT [Catalytic activity/Vol] 16 U/L Normal 16-63 [facility] ([place] Comment on above: Performed By: #### C MP, ANEU, MDW, GFR, MG, CBC, ADIFF #### [address] [address] AST [Catalytic activity/Vol] 22 U/L Normal 10-40 [facility] ([place] Comment on above: Performed By: #### C MP, ANEU, MDW, GFR, MG, CBC, ADIFF #### [address] [address] Bili Total 0.5 mg/dL Normal 0.2-1.0 [facility] ([place] Comment on above: Result Comment: Use of this assay is not recommended for patients undergoing treatment with eltrombopag due to the potential for falsely elevated results. Performed By: #### C MP, ANEU, MDW, GFR, MG, CBC, ADIFF #### [address] [address] BUN/Creatinine Ratio 21 ratio Normal 7-27 [facility] Comment on above: Performed By: #### C MP, ANEU, MDW, GFR, MG, CBC, ADIFF #### [address] [address] Calcium [Mass/Vol] 9.4 mg/dL Normal 8.4-10.2 Counts include 234 beds at the [facility] ([place]) Comment on above: Performed By: #### C MP, ANEU, MDW, GFR, MG, CBC, ADIFF #### [address] [address] Chloride [Moles/Vol] 96 mmol/L Low 98-107 [facility] Comment on above: Performed By: #### C MP, ANEU, MDW, GFR, MG, CBC, ADIFF #### [address] [address] CO2 [Moles/Vol] 22 mmol/L Normal 22-29 [facility] ([place] Comment on above: Performed By: #### C MP, ANEU, MDW, GFR, MG, CBC, ADIFF #### [address] [address] Creatinine [Mass/Vol] 1.92 mg/dL High 0.70-1.30 [facility] ([place]) Comment on above: Performed By: #### C MP, ANEU, MDW, GFR, MG, CBC, ADIFF #### [address] [address] Electrolyte Balance 14.0 mEq/L Normal 4.0-15.0 [facility] ([place]) Comment on above: Performed By: #### C MP, ANEU, MDW, GFR, MG, CBC, ADIFF #### [address] [address] Globulin 4.3 G/dL Normal [facility] ([place]) Comment on above: Performed By: #### C MP, ANEU, MDW, GFR, MG, CBC, ADIFF #### [address] [address] Glucose [Mass/Vol] 212 mg/dL High 70-105 Counts include 234 beds at the [facility] ([place]) Comment on above: Performed By: #### C MP, ANEU, MDW, GFR, MG, CBC, ADIFF #### [address] [address] Potassium [Moles/Vol] 4.1 mmol/L Normal 3.5-5.1 [facility] ([place]) Comment on above: Performed By: #### C MP, ANEU, MDW, GFR, MG, CBC, ADIFF #### [address] [address] Sodium [Moles/Vol] 132 mmol/L Low 136-145 Counts include 234 beds at the [facility] ([place] Comment on above: Performed By: #### C MP, ANEU, MDW, GFR, MG, CBC, ADIFF #### [address] [address] Total Protein 8.6 G/dL High 6.4-8.2 [facility] ([place] Comment on above: Performed By: #### C MP, ANEU, MDW, GFR, MG, CBC, ADIFF #### [address] [address] Urea nitrogen [Mass/Vol] 41 mg/dL High 7-18 [facility] ([place] Comment on above: Performed By: #### C MP, ANEU, MDW, GFR, MG, CBC, ADIFF #### [address] [address] LABORATORYOrdered By: SYSTEM SYSTEM on 05-05-2024 Albumin [...] 05-05-2024 Lipase Level 36 U/L Normal 16-77 [facility] ([place] Comment on above: Performed By: #### C TRISTEN NINO MDW, GFR, MG, CBC, ADIFF #### [address] [address] VBGon 05-05-2024 BE Venous -4.6 mmol/L Low -3.0-3.0 [facility] ([place] Comment on above: Performed By: #### C TRISTEN NINO MDW, GFR, MG, CBC, ADIFF #### [address] [address] CO2 [Moles/Vol] 19.4 mmol/L Low 22.0-32.0 [facility] ([place] Comment on above: Performed By: #### C TRISTEN NINO MDW, GFR, MG, CBC, ADIFF #### [address] [address] HCO3 (Bld) [Moles/Vol] 18.5 mmol/L Low 21.0-30.0 [facility] ([place] Comment on above: Performed By: #### C TRISTEN NINO MDW, GFR, MG, CBC, ADIFF #### [address] [address] Oxygen saturation in Blood 82.0 % High 70.0-75.0 [facility] ([place] Comment on above: Performed By: #### C TRISTEN NINO MDW, GFR, MG, CBC, ADIFF #### [address] [address] pCO2 Tera 29.9 mmHg Low 41.0-51.0 [facility] ([place] Comment on above: Performed By: #### C TRISTEN NINO MDW, GFR, MG, CBC, ADIFF #### [address] [place] [id number] [place], [place] [address] pH Venous 7.410 Normal 7.380-7.460 [facility] ([place] Comment on above: Performed By: #### C TRISTEN NINO MDW, GFR, MG, CBC, ADIFF #### [address] [place], [place] [address] pO2 Tera 45.6 mmHg High 35.0-40.0 [facility] ([place]) Comment on above: Performed By: #### C TRISTEN NINO MDW, GFR, MG, CBC, ADIFF #### [address] [place] [id number] [place], [place] [address] Absolute lymphocyte countOrd ered By: Shantell Grayrubi on 01-29-2024 Lymphocytes Auto (Unsp spec) [#/Vol] 4.10 10*3/uL 0.83-4.51 [facility] Automated lymphocyte count a s percentage of total leukocytesOrdered By: Shantell Kieran on 01-29-2024 Lymphocytes/100 WBC Auto (Unsp spec) 41.8 % 19-41 [facility] Basophil percentageOrdered B y: Shantell Alcaraz on 01-29-2024 Basophils/100 WBC (Bld) 0.6 % 0-1 [facility] Chloride [Moles/Vol] 107 mmol/L 98-[address] [facility] Eosinophils/100 WBC (Bld) 1.7 % 0-5 [facility] Glucose [Mass/Vol] 124 mg/dL 74-106 [facility] Comment on above: Fasting Glucose resu lt from 100 to 125 mg/dL suggests IMPAIRED HOMEOSTASIS per A.D.A. criteria. Hemoglobin (Bld) [Mass/Vol] 13.0 g/dL 13.0-16.5 [facility] Monocytes/100 WBC (Bld) 11.8 % 0-10 [facility] Neutrophils (Bld) [#/Vol] 4.3 10*3/uL 2.0-7.7 [facility] Neutrophils/100 WBC (Bld) 43.8 % 47-70 [facility] Potassium [Moles/Vol] 3.4 mmol/L 3.5-5.1 [facility] Sodium [Moles/Vol] 136 mmol/L 136-145 [facility] WBC (Bld) [#/Vol] 9.8 10*3/uL 4.4-11.0 [facility] Determination of erythrocyte mean corpuscular volume (MCV)Ordered By: Shantell Alcaraz on 01-29-2024 MCV (RBC) [Entitic vol] 83.7 fL 80-94 [facility] Erythrocyte distribution wid th ratioOrdered By: [facility] Erythrocyte distribution width (RBC) [Ratio] 13.2 % 11.6-14.6 [facility] Erythrocyte distribution wid th standard deviationOrdered By: [facility] on 01-29-2024 Erythrocyte distribution width (RBC) [Entitic vol] 40.7 fL 35.1-43.9 [facility] Hematocrit Auto (Bld) [Volum e fraction]Ordered By: Shantellteresa Alcaraz on 01-29-2024 Hematocrit (Bld) [Volume fraction] 38.5 % 40-54 [facility] Immature granulocytes/100 WB C Auto (Bld)Ordered By: [facility] Kieran on 01-29-2024 Immature granulocytes/100 WBC (Bld) 0.300 % 0.0-0.9 [facility] Comment on above: IG% - Immature Granu locytes (promyelocytes, myelocytes and metamyelocytes) > 1% indicates that a LEFT SHIFT is Present. Laboratory - Chemistry and C hemistry - challengeOrdered By: Shantell Alcaraz on 01-29-2024 CO2 [Moles/Vol] 21.0 mmol/L 21.0-32.0 [facility] Urea nitrogen/Creatinine [Mass ratio] 20.2 mg/mg 10-20 [facility] Laboratory - Hematology and Cell countsOrdered By: Shantell Alcaraz on 01-29-2024 MCH (RBC) [Entitic mass] 28.3 pg 27.0-32.0 [facility] MCHC (RBC) [Mass/Vol] 33.8 g/dL 32-36 [facility] Nucleated RBC/100 WBC (Bld) [Ratio] 0 % 0-5 [facility] Platelet mean volume (Bld) [Entitic vol] 9.2 fL 6.2-12.0 [facility] Platelets (Bld) [#/Vol] 341 10*3/uL 150-450 [facility] No Panel InformationOrdered By: Shantell Alcaraz on 01-29-2024 Estimated Creatinine Clearance Calc 120.03 ml/min [facility] Estimated GFR (MDRD) Amer 151 mL/min >60 [facility] Comment on above: GFR Calc Estimated GFR (MDRD) Non-Af Amer 125 mL/min >60 [facility] Comment on above: Non- GFR Calc RBC Auto (Bld) [#/Vol]Ordere d By: Shantell Alcaraz on 01-29-2024 RBC (Bld) [#/Vol] 4.60 10*6/uL 4.6-6.2 [facility] Serum or plasma calcium luis carlos urement (mass/volume)Ordered By: Shantell Alcaraz on 01-29-2024 Calcium [Mass/Vol] 8.5 mg/dL 8.5-10.1 [facility] Serum or plasma creatinine m easurement (mass/volume)Ordered By: Shantell Alcaraz on 01-29-2024 Creatinine [Mass/Vol] 0.74 mg/dL 0.70-1.30 [facility] Comment on above: The validity of the calculated GFR & GFRAA in patients over 70 years has not been determined. Clinical correlation is essential. Serum or plasma urea nitroge n measurement (mass/volume)Ordered By: Shantell Alcaraz on 01-29-2024 Urea nitrogen [Mass/Vol] 15 mg/dL 7-18 [facility] Thin prep Papanicolaou smear with manual screeningOrdered By: Shantell Alcaraz on 01-29-2024 Thin prep Papanicolaou smear with manual screening 151 mg/dL 74-106 [facility] Comment on above: MANAGEMENT OF PATIEN T CARE PER NURSING PROTOCOL Thin prep Papanicolaou smear with manual screening 8 5-15 [facility] Absolute lymphocyte countOrd ered By: Krystina Clifton on 01-27-2024 Lymphocytes Auto (Unsp spec) [#/Vol] 3.36 10*3/uL 0.83-4.51 [facility] Automated lymphocyte count a s percentage of total leukocytesOrdered By: Krystina Clifton on 01-27-2024 Lymphocytes/100 WBC Auto (Unsp spec) 26.1 % 19-41 [facility] Basophil percentageOrdered B y: Krystina Clifton on 01-27-2024 Basophil percentage 0 SEEN /hpf 0-[address] [facility] Basophils/100 WBC (Bld) 0.5 % 0-1 [facility] Bilirubin [Mass/Vol] 0.70 mg/dL 0.20-1.[address] [facility] Comment on above: For patients on eltr ombopag therapy, use of Dimension [place] TBIL is not recommended. Chloride [Moles/Vol] 100 mmol/L 98-[address] [facility] Eosinophils/100 WBC (Bld) 0.5 % 0-5 [facility] Glucose [Mass/Vol] 322 mg/dL 74-106 [facility] Comment on above: Glucose result great er than or equal to 200 mg/dLsuggests DIABETES MELLITUS per A.D.A. criteria. Hemoglobin (Bld) [Mass/Vol] 14.9 g/dL 13.0-16.5 [facility] Monocytes/100 WBC (Bld) 7.0 % 0-10 [facility] Neutrophils (Bld) [#/Vol] 8.4 10*3/uL 2.0-7.7 [facility] Neutrophils/100 WBC (Bld) 65.5 % 47-70 [facility] Potassium [Moles/Vol] 4.0 mmol/L 3.5-5.1 [facility] Protein [Mass/Vol] 9.2 g/dL 6.4-8.2 [facility] Sodium [Moles/Vol] 132 mmol/L 136-145 [facility] WBC (Bld) [#/Vol] 12.9 10*3/uL 4.4-11.0 [facility] Bilirubin Test strip Ql (U)O rdered By: Krystina Clifton on 01-27-2024 Bilirubin Ql (U) Negative Negative [facility] Determination of erythrocyte mean corpuscular volume (MCV)Ordered By: Krystina Clifton on 01-27-2024 MCV (RBC) [Entitic vol] 84.2 fL 80-94 [facility] Erythrocyte distribution wid th ratioOrdered By: Krystina Clifton on 01-27-2024 Erythrocyte distribution width (RBC) [Ratio] 13.2 % 11.6-14.6 [facility] Erythrocyte distribution wid th standard deviationOrdered By: Krystina Clifton on 01-27-2024 Erythrocyte distribution width (RBC) [Entitic vol] 40.4 fL 35.1-43.9 [facility] Hematocrit Auto (Bld) [Volum e fraction]Ordered By: Krystina Clifton on 01-27-2024 Hematocrit (Bld) [Volume fraction] 44.8 % 40-54 [facility] Immature granulocytes/100 WB C Auto (Bld)Ordered By: Krystina Clifton on 01-27-2024 Immature granulocytes/100 WBC (Bld) 0.400 % 0.0-0.9 [facility] Comment on above: IG% - Immature Granu locytes (promyelocytes, myelocytes and metamyelocytes) > 1% indicates that a LEFT SHIFT is Present. Ketones Test strip Ql (U)Ord ered By: Krystina Clifton on 01-27-2024 Ketones Ql (U) 150 mg/dl Negative [facility] Comment on above: CRITICAL VALUE *HCRI TICAL VALUE VERIFIED. CALLED TO LINA OROZCO01/27/24 [id number] Luly Rollins.RESULTS READ BACK BY SAME . Laboratory - Chemistry and C hemistry - challengeOrdered By: Troy Wagoner on 01-27-2024 Sodium (U) [Moles/Vol] 82 mmol/L Not Establ. [facility] Laboratory - Chemistry and C hemistry - challengeOrdered By: Krystina Clifton on 01-27-2024 Albumin/Globulin [Mass ratio] 0.8 {ratio} 0.9-2.4 [facility] ALP [Catalytic activity/Vol] 91 U/L 45-117 [facility] ALT [Catalytic activity/Vol] 15 U/L 16-61 [facility] CO2 [Moles/Vol] 17.0 mmol/L 21.0-32.0 [facility] Globulin (S) [Mass/Vol] 5.0 g/dL 2.2-4.2 [facility] Lipase [Catalytic activity/Vol] 47 U/L 13-75 [facility] Comment on above: Please note:LIPASE r evised reference range effective 23. New Lipase methodology. Expected to produce lower values than the previous assay method. NEW Reference Range: 13 - 75 U/L Urea nitrogen/Creatinine [Mass ratio] 19.1 mg/mg 10-20 [facility] Laboratory - Drug toxicology Ordered By: Troy Wagoner on 01-27-2024 Amphetamines Ql (U) Negative <1000 ng/mL [facility] Benzodiazepines Ql (U) Negative < 200 ng/mL [facility] Cannabinoids Screen Ql (U) Positive < 50 ng/mL [facility] Cocaine Ql (U) Negative < 300 ng/mL [facility] Opiates Ql (U) Positive < 300 ng/mL [facility] Laboratory - Hematology and Cell countsOrdered By: Krystina Clifton on 01-27-2024 MCH (RBC) [Entitic mass] 28.0 pg 27.0-32.0 [facility] MCHC (RBC) [Mass/Vol] 33.3 g/dL 32-36 [facility] Nucleated RBC/100 WBC (Bld) [Ratio] 0 % 0-5 [facility] Platelet mean volume (Bld) [Entitic vol] 9.8 fL 6.2-12.0 [facility] Platelets (Bld) [#/Vol] 375 10*3/uL 150-450 [facility] Mucus LM Ql (Urine sed)Order ed By: Krystina Clifton on 01-27-2024 Mucus Ql (Urine sed) 0 SEEN /hpf [facility] Nitrite Test strip Ql (U)Ord ered By: Krystina Clifton on 01-27-2024 Nitrite Ql (U) Negative Negative [facility] No Panel InformationOrdered By: Troy Wagoner on 01-27-2024 MDMA (Ecstasy) Screen Negative < 500 ng/mL [facility] Urine Barbiturates Screen Negative < 200 ng/mL [facility] Urine Drug Screen Comment [facility] Comment on above: CONFIRMATORY TESTING FOR ALL [...] Urine Methadone Screen Negative < 300 ng/mL [facility] Ethyl Alcohol Level < 3.0 mg/dL [facility] Comment on above: The serum:whole bloo d ethanol ratio is approximately 1.14and varies slightly with hematocrit. Medical Alcohol reference interval and critical value innon-tolerant individuals; 50 - 100 Impairment 100 Intoxication 100 - 250 Severe Poisoning 250 - 400 Deep/possible fatal coma No Panel InformationOrdered By: Krystina Clifton on 01-27-2024 Estimated Creatinine Clearance Calc 76.75 ml/min [facility] Estimated GFR (MDRD) Amer 91 mL/min >60 [facility] Comment on above: GFR Calc Estimated GFR (MDRD) Non-Af Amer 76 mL/min >60 [facility] Comment on above: Non- GFR Calc Urine RBC 5-10 SEEN /hpf 0-5 [facility] Protein Test strip Ql (U)Ord ered By: Krystina Clifton on 01-27-2024 Protein Ql (U) 30 mg/dl Negative [facility] RBC Auto (Bld) [#/Vol]Ordere d By: Krystina Clifton on 01-27-2024 RBC (Bld) [#/Vol] 5.32 10*6/uL 4.6-6.2 [facility] Serum or plasma calcium luis carlos urement (mass/volume)Ordered By: Krystina Clifton on 01-27-2024 Calcium [Mass/Vol] 9.6 mg/dL 8.5-10.1 [facility] Serum or plasma creatinine m easurement (mass/volume)Ordered By: Krystina Clifton on 01-27-2024 Creatinine [Mass/Vol] 1.15 mg/dL 0.70-1.30 [facility] Comment on above: The validity of the calculated GFR & GFRAA in patients over 70 years has not been determined. Clinical correlation is essential. Serum or plasma thyroid stim ulating hormone (TSH) measurement (units/volume)Ordered By: Troy Wagoner on 01-27-2024 TSH Qn 2.59 uIU/mL 0.358-3.74 [facility] Serum or plasma urea nitroge n measurement (mass/volume)Ordered By: Krystina Clifton on 01-27-2024 Urea nitrogen [Mass/Vol] 22 mg/dL 7-18 [facility] Squamous epithelial cells de tection in urine sediment by light microscopyOrdered By: Krystina Clifton on 01-27-2024 Epithelial cells.squamous LM Ql (Urine sed) 0 SEEN /hpf 0-5 [facility] Thin prep Papanicolaou smear with manual screeningOrdered By: Tory Wagoner on 01-27-2024 Protein (U) [Mass/Vol] 46.0 mg/dL 0.0-11.8 [facility] Thin prep Papanicolaou smear with manual screeningOrdered By: Krystina Clifton on 01-27-2024 Thin prep Papanicolaou smear with manual screening 4.2 g/dL 3.2-5.0 [facility] Thin prep Papanicolaou smear with manual screening 17 U/L 15-37 [facility] Thin prep Papanicolaou smear with manual screening 15 5-15 [facility] Urine blood detectionOrdered By: Krystina Clifton on 01-27-2024 RBC Ql (U) 50 /ul Negative [facility] Urine clarityOrdered By: Lito Clifton on 01-27-2024 Clarity (U) Clear Clear [facility] Urine color determinationOrd ered By: Krystina Clifton on 01-27-2024 Color (U) Yellow Yellow [facility] Urine creatinine measurement (mass/volume)Ordered By: Troy Wagoner on 01-27-2024 Creatinine (U) [Mass/Vol] 94.50 mg/dL NO RANGE EST. [facility] Urine glucose detectionOrder ed By: Krystina Clifton on 01-27-2024 Glucose Ql (U) 1000 mg/dl Normal [facility] Urine leukocyte esterase det ection by dipstickOrdered By: Krystina Clfiton on 01-27-2024 Leukocyte esterase Test strip Ql (U) Negative Negative [facility] Urine pHOrdered By: Bertha Clifton on 01-27-2024 pH (U) 5.0 [pH] 5.0 - 8.0 [facility] Urine phencyclidine (PCP) de tectionOrdered By: Troy Wagoner on 01-27-2024 Phencyclidine Ql (U) Negative < 25 ng/mL [facility] Urine protein/creatinine mas s ratioOrdered By: Troy Wagoner on 01-27-2024 Protein/Creatinine (U) [Mass ratio] 487 mg/g CRE 0-200 [facility] Urine sediment bacteria coun t by microscopy (number/high power field)Ordered By: Krystina Clifton on 01-27-2024 Bacteria LM.HPF (Urine sed) [#/Area] 0 /[HPF] None Seen [facility] Urine specific gravity measu rementOrdered By: Krystina Clifton on 01-27-2024 Specific gravity (U) [Rel density] 1.025 1.002-1.030 [facility] Urine urobilinogen measureme ntOrdered By: Krystina Clifton on 01-27-2024 Urobilinogen Ql (U) Normal mg/dl Normal [facility] Whole blood hemoglobin A1c/t otal hemoglobin ratio (mass fraction)Ordered By: Troy Wagoner on 01-27-2024 HbA1c (Bld) [Mass fraction] 11.1 % 3.8-5.6 [facility] Comment on above: Normal < 5.7 % Predi abetic 5.7 - 6.4 % Diabetic >or= 6.5 % Please note range changes. .Auto Diffon 01-26-2024 Basophil, Absolute 0.1 10 3/mcL Normal 0.0-0.2 [facility] Comment on above: Performed By: #### C TRISTEN NINO MDW, GFR, MG, CBC, ADIFF #### [id number] [place], [place] [address] Basophils/100 WBC (Bld) 0.7 % Normal 0.0-2.5 [facility] ([place] Comment on above: Performed By: #### C TRISTEN NINO MDW, GFR, MG, CBC, ADIFF #### [facility] [address] [place], [place] [address] Eosinophil, Absolute 0.1 10 3/mcL Normal 0.0-0.4 [facility] ([place] Comment on above: Performed By: #### C MP, ANEU, MDW, GFR, MG, CBC, ADIFF #### [address] [address] Eosinophils/100 WBC (Bld) 0.4 % Normal 0.0-7.0 [facility] ([place] Comment on above: Performed By: #### C MP, ANEU, MDW, GFR, MG, CBC, ADIFF #### [address] [address] Lymphocyte, Absolute 3.0 10 3/mcL Normal 0.8-3.9 [facility] ([place] Comment on above: Performed By: #### C MP, ANEU, MDW, GFR, MG, CBC, ADIFF #### [address] [address] Lymphocytes/100 WBC (Bld) 21.5 % Normal 10.0-50.0 [facility] ([place] Comment on above: Performed By: #### C MP, ANEU, MDW, GFR, MG, CBC, ADIFF #### [address] [address] Monocyte, Absolute 0.9 10 3/mcL Normal 0.2-1.0 [facility] Comment on above: Performed By: #### C MP, ANEU, MDW, GFR, MG, CBC, ADIFF #### [address] [address] Monocytes/100 WBC (Bld) 6.7 % Normal 1.7-13.0 [facility] ([place] Comment on above: Performed By: #### C MP, ANEU, MDW, GFR, MG, CBC, ADIFF #### [address] [address] Neutrophils/100 WBC (Bld) 70.7 % Normal 37.0-80.0 [facility] ([place] Comment on above: Performed By: #### C MP, ANEU, MDW, GFR, MG, CBC, ADIFF #### [address] [address] .GFRon 01-26-2024 GFR Non- 105 ml/min/1.73sqm Normal [facility] ([place] Comment on above: Result Comment: GFR Population [...] mL/min/1.73 square meters Performed By: #### C TRISTEN NINO MDW, GFR, MG, CBC, ADIFF #### [address] [address] GFR 127 ml/min/1.73sqm Normal [facility] ([place]) Comment on above: Result [...] mL/min/1.73 square meters Performed By: #### C TRISTEN NINO MDW, GFR, MG, CBC, ADIFF #### [address] [address] .MDWon 01-26-2024 Monocyte Distribution Width 15.52 Normal 0.00-20.00 [facility] ([place] Comment on above: Result Comment: For ED adult patients suspected of sepsis, MDW<=20.0 does not rule out sepsis or risk of sepsis Performed By: #### C MICA, MD TRISTENW, GFR, MG, CBC, ADIFF #### [place] [address] .NEUABSon 01-26-2024 Neutrophil, Absolute 9.8 10 3/mcL High 2.9-6.2 [facility] ([place] Comment on above: Performed By: #### C MICA, TRISTEN, MDW, GFR, MG, CBC, ADIFF #### [place] [address] .Urinalysis Microscopic (AO) on 01-26-2024 UA RBC 0-5 Abnormal None Seen [facility] ([place] Comment on above: Performed By: #### U A, UAMICAO #### [place] [address] UA Squam Epithelial 0-5 Abnormal None Seen [facility] ([place] Comment on above: Performed By: #### U A, UAMICAO #### [place] [address] UA WBC 0-5 Abnormal None Seen [facility] ([place] Comment on above: Performed By: #### U A, UAMICAO #### [place] [address] CBCon 01-26-2024 Erythrocyte distribution width (RBC) [Ratio] 14.2 % Normal 11.5-14.5 [facility] ([place] Comment on above: Performed By: #### C TRISTEN NINO MDW, GFR, MG, CBC, ADIFF #### [place] [address] Hematocrit (Bld) [Volume fraction] 45.5 % Normal 42.0-52.0 [facility] ([place] Comment on above: Performed By: #### C MICA, TRISTEN, W, GFR, MG, CBC, ADIFF #### [address] [place] [address] Hgb 15.5 G/dL Normal 14.0-18.0 [facility] ([place] Comment on above: Performed By: #### C MP, ANEU, MDW, GFR, MG, CBC, ADIFF #### [address] [address] MCH (RBC) [Entitic mass] 29.0 pg Normal 27.0-31.2 [facility] ([place] Comment on above: Performed By: #### C MP, ANEU, MDW, GFR, MG, CBC, ADIFF #### [place] [address] MCHC 34.1 G/dL Normal 31.8-35.4 [facility] ([place] Comment on above: Performed By: #### C MP, ANEU, MDW, GFR, MG, CBC, ADIFF #### [address] [address] MCV (RBC) [Entitic vol] 85.1 fL Normal 80.0-94.0 [facility] ([place] Comment on above: Performed By: #### C MP, ANEU, MDW, GFR, MG, CBC, ADIFF #### [address] [address] Platelet 384 10 3/mcL Normal 130-400 [facility] ([place] Comment on above: Performed By: #### C MP, ANEU, MDW, GFR, MG, CBC, ADIFF #### [address] [address] Platelet mean volume (Bld) [Entitic vol] 7.6 fL Normal 7.4-10.4 [facility] ([place] Comment on above: Performed By: #### C MP, ANEU, MDW, GFR, MG, CBC, ADIFF #### [place] [id number] RBC 5.35 10 6/mcL Normal 4.04-6.13 [facility] ([place] Comment on above: Performed By: #### C MP, ANEU, MDW, GFR, MG, CBC, ADIFF #### [address] [address] WBC 13.9 10 3/mcL High 4.6-10.8 [facility] ([place] Comment on above: Performed By: #### C MICA, TRISTEN, MDW, GFR, MG, CBC, ADIFF #### [address] [address] CMPon 01-26-2024 Albumin Level 4.5 G/dL Normal 3.5-5.0 [facility] ([place] Comment on above: Performed By: #### C MICA, MD TRISTENW, GFR, MG, CBC, ADIFF #### [address] [address] Albumin/Globulin [Mass ratio] 0.9 {ratio} Low 1.1-2.5 [facility] ([place] Comment on above: Performed By: #### C MICA, MD TRISTENW, GFR, MG, CBC, ADIFF #### [address] [address] ALP [Catalytic activity/Vol] 104 U/L Normal 40-135 [facility] ([place] Comment on above: Performed By: #### C MICA, MD TRISTENW, GFR, MG, CBC, ADIFF #### [address] [address] ALT [Catalytic activity/Vol] 18 U/L Normal 16-63 [facility] ([place] Comment on above: Performed By: #### C MICA, MD TRISTENW, GFR, MG, CBC, ADIFF #### [address] [address] AST [Catalytic activity/Vol] 35 U/L Normal 10-40 [facility] ([place] Comment on above: Performed By: #### C TRISTEN NINO MDW, GFR, MG, CBC, ADIFF #### [address] [address] Bili Total 0.7 mg/dL Normal 0.2-1.0 [facility] ([place] Comment on above: Result Comment: Use of this assay is not recommended for patients undergoing treatment with eltrombopag due to the potential for falsely elevated results. Performed By: #### C MP, ANEU, MDW, GFR, MG, CBC, ADIFF #### [address] [address] BUN/Creatinine Ratio 24 ratio Normal 7-27 [facility] Comment on above: Performed By: #### C MP, ANEU, MDW, GFR, MG, CBC, ADIFF #### [address] [address] Calcium [Mass/Vol] 9.4 mg/dL Normal 8.4-10.2 Counts include 234 beds at the [facility] ([place] Comment on above: Performed By: #### C MP, ANEU, MDW, GFR, MG, CBC, ADIFF #### [address] [address] Chloride [Moles/Vol] 95 mmol/L Low 98-107 [facility] Comment on above: Performed By: #### C MP, ANEU, MDW, GFR, MG, CBC, ADIFF #### [address] [address] CO2 [Moles/Vol] 18 mmol/L Low 22-29 [facility] ([place] Comment on above: Performed By: #### C MP, ANEU, MDW, GFR, MG, CBC, ADIFF #### [address] [address] Creatinine [Mass/Vol] 0.82 mg/dL Normal 0.70-1.30 [facility] ([place] Comment on above: Performed By: #### C MP, ANEU, MDW, GFR, MG, CBC, ADIFF #### [address] [address] Electrolyte Balance 19.0 mEq/L High 4.0-15.0 [facility] ([place] Comment on above: Performed By: #### C MP, ANEU, MDW, GFR, MG, CBC, ADIFF #### [address] [address] Globulin 5.1 G/dL Normal [facility] ([place] Comment on above: Performed By: #### C MP, ANEU, MDW, GFR, MG, CBC, ADIFF #### [address] [address] Glucose [Mass/Vol] 275 mg/dL High 70-105 Counts include 234 beds at the [facility] ([place] Comment on above: Performed By: #### C MP, ANEU, MDW, GFR, MG, CBC, ADIFF #### [address] [address] Potassium [Moles/Vol] 5.3 mmol/L High 3.5-5.1 [facility] ([place] Comment on above: Performed By: #### C MP, ANEU, MDW, GFR, MG, CBC, ADIFF #### [address] [address] Sodium [Moles/Vol] 132 mmol/L Low 136-145 Counts include 234 beds at the [facility] ([place] Comment on above: Performed By: #### C MP, ANEU, MDW, GFR, MG, CBC, ADIFF #### [address] [address] Total Protein 9.6 G/dL High 6.4-8.2 [facility] ([place] Comment on above: Performed By: #### C MP, ANEU, MDW, GFR, MG, CBC, ADIFF #### [address] [address] Urea nitrogen [Mass/Vol] 20 mg/dL High 7-18 [facility] ([place] Comment on above: Performed By: #### C MP, ANEU, MDW, GFR, MG, CBC, ADIFF #### [address] [address] [address] ABD/PELVIS W/ IV CONTRAST ONLYon 01-26-2024 [...] 1:11:46 PM Ordering Provider: SARAVANAN SANCHEZ Normal [facility] ([place] LABORATORYOrdered By: Elyse Durand on 01-26-2024 Glucose [Mass/Vol] 224 mg/dL High 70 - 110 mg/dL [facility] Work Phone: Glucose [Mass/Vol] 275 mg/dL High 70 - 110 mg/dL [facility] Work Phone: LABORATORYOrdered By: SYSTEM SYSTEM on [...] 01-26-2024 Lipase Level 48 U/L Normal 16-77 [facility] ([place] Comment on above: Performed By: #### C TRISTEN NINO MDW, GFR, MG, CBC, ADIFF #### [address] [address] MGon 01-26-2024 Magnesium [Mass/Vol] 1.8 mg/dL Normal 1.8-2.4 [facility] Comment on above: Performed By: #### C TRISTEN NINO MDW, GFR, MG, CBC, ADIFF #### [address] [address] UAon 01-26-2024 Color (U) Yellow Normal [facility] ([place] Comment on above: Performed By: #### U A, UAMICAO #### [address] [address] Glucose (U) [Mass/Vol] 500 mg/dL Abnormal Negative [facility] ([place] Comment on above: Performed By: #### U A, UAMICAO #### [address] [address] Ketones Ql (U) >=160 Abnormal Negative [facility] ([place] Comment on above: Performed By: #### U A, UAMICAO #### [address] [address] UA Appear Clear Normal Clear [facility] ([place] Comment on above: Performed By: #### U A, UAMICAO #### [address] [address] UA Blood Moderate Abnormal Negative [facility] ([place] Comment on above: Performed By: #### U A, UAMICAO #### [place] [address] UA Leuk Est Negative Normal Negative [facility] ([place] Comment on above: Performed By: #### U A, UAMICAO #### [place] [address] UA Nitrite Negative Normal Negative [facility] ([place] Comment on above: Performed By: #### U A, UAMICAO #### [place] [address] UA pH 5.5 Normal 5.0 - 8.0 [facility] ([place] Comment on above: Performed By: #### U A, UAMICAO #### [place] [address] UA Protein 100 mg/dL Abnormal Negative [facility] ([place] Comment on above: Performed By: #### U A, UAMICAO #### [place] [address] UA Spec Grav >=1.030 Abnormal 1.015-1.025 [facility] ([place] Comment on above: Performed By: #### U A, UAMICAO #### [address] [address] UA Specimen Type Clean Catch Normal [facility] ([place] Comment on above: Performed By: #### U A, UAMICAO #### [address] [address] UA Urobilinogen 0.2 E.U./dL Normal 0.2-1.0 [facility] ([place] Comment on above: Performed By: #### U A UAMICAO #### [facility] [address] [place], [place] [address] Urobilinogen (U) [Mass/Vol] Negative Normal Negative [facility] ([place] Comment on above: Performed By: #### U A, UAMICAO #### [facility] [place] [address] [place], [place] [address] Absolute lymphocyte countOrd ered By: ED PROVIDER on 01-25-2024 Lymphocytes Auto (Unsp spec) [#/Vol] 2.82 10*3/uL 0.83-4.51 [facility] Automated lymphocyte count a s percentage of total leukocytesOrdered By: ED PROVIDER on 01-25-2024 Lymphocytes/100 WBC Auto (Unsp spec) 21.7 % 19-41 [facility] Basophil percentageOrdered B y: Ryan Mccracken on 01-25-2024 Basophil percentage 0 SEEN /hpf 0-[address] [facility] Bilirubin [Mass/Vol] 0.50 mg/dL 0.20-1.[address] [facility] Comment on above: For patients on eltr ombopag therapy, use of Dimension [place] TBIL is not recommended. Chloride [Moles/Vol] 101 mmol/L 98-[address] [facility] Glucose [Mass/Vol] 278 mg/dL 74-106 [facility] Comment on above: Glucose result great er than or equal to 200 mg/dLsuggests DIABETES MELLITUS per A.D.A. criteria. Potassium [Moles/Vol] 3.8 mmol/L 3.5-5.1 [facility] Comment on above: Moderate Hemolysis, Result may be falsely increased. Protein [Mass/Vol] 9.2 g/dL 6.4-8.2 [facility] Sodium [Moles/Vol] 136 mmol/L 136-145 [facility] Basophil percentageOrdered B y: ED PROVIDER on 01-25-2024 Basophils/100 WBC (Bld) 0.5 % 0-1 [facility] Eosinophils/100 WBC (Bld) 0.4 % 0-5 [facility] Hemoglobin (Bld) [Mass/Vol] 15.0 g/dL 13.0-16.5 [facility] Monocytes/100 WBC (Bld) 5.3 % 0-10 [facility] Neutrophils (Bld) [#/Vol] 9.3 10*3/uL 2.0-7.7 [facility] Neutrophils/100 WBC (Bld) 71.6 % 47-70 [facility] WBC (Bld) [#/Vol] 13.0 10*3/uL 4.4-11.0 [facility] Bilirubin Test strip Ql (U)O rdered By: Ryan Mccracken on 01-25-2024 Bilirubin Ql (U) Negative Negative [facility] Determination of erythrocyte mean corpuscular volume (MCV)Ordered By: ED PROVIDER on 01-25-2024 MCV (RBC) [Entitic vol] 84.8 fL 80-94 [facility] Direct bilirubinOrdered By: Ryan Mccracken on 01-25-2024 Bilirubin.direct [Mass/Vol] 0.06 mg/dL 0.00-0.30 [facility] Erythrocyte distribution wid th ratioOrdered By: ED PROVIDER on 01-25-2024 Erythrocyte distribution width (RBC) [Ratio] 12.9 % 11.6-14.6 [facility] Erythrocyte distribution wid th standard deviationOrdered By: ED PROVIDER on 01-25-2024 Erythrocyte distribution width (RBC) [Entitic vol] 39.9 fL 35.1-43.9 [facility] Hematocrit Auto (Bld) [Volum e fraction]Ordered By: ED PROVIDER on 01-25-2024 Hematocrit (Bld) [Volume fraction] 44.7 % 40-54 [facility] Immature granulocytes/100 WB C Auto (Bld)Ordered By: ED PROVIDER on 01-25-2024 Immature granulocytes/100 WBC (Bld) 0.500 % 0.0-0.9 [facility] Comment on above: IG% - Immature Granu locytes (promyelocytes, myelocytes and metamyelocytes) > 1% indicates that a LEFT SHIFT is Present. Ketones Test strip Ql (U)Ord ered By: Ryan Mccracken on 01-25-2024 Ketones Ql (U) 150 mg/dl Negative [facility] Comment on above: CRITICAL VALUE *HCRI TICAL VALUE VERIFIED. CALLED TO ETEAL01/25/24 6111 Liv Morel.RESULTS READ BACK BY SAME . Laboratory - Chemistry and C hemistry - challengeOrdered By: Ryan Mccracken on 01-25-2024 Albumin/Globulin [Mass ratio] 0.8 {ratio} 0.9-2.4 [facility] ALP [Catalytic activity/Vol] 92 U/L 45-117 [facility] ALT [Catalytic activity/Vol] 18 U/L 16-61 [facility] CO2 [Moles/Vol] 21.0 mmol/L 21.0-32.0 [facility] Globulin (S) [Mass/Vol] 5.0 g/dL 2.2-4.2 [facility] Lipase [Catalytic activity/Vol] 37 U/L 13-75 [facility] Comment on above: Please note:LIPASE r evised reference range effective 23. New Lipase methodology. Expected to produce lower values than the previous assay method. NEW Reference Range: 13 - 75 U/L Urea nitrogen/Creatinine [Mass ratio] 18.1 mg/mg 10-20 [facility] Laboratory - Hematology and Cell countsOrdered By: ED PROVIDER on 01-25-2024 MCH (RBC) [Entitic mass] 28.5 pg 27.0-32.0 [facility] MCHC (RBC) [Mass/Vol] 33.6 g/dL 32-36 [facility] Nucleated RBC/100 WBC (Bld) [Ratio] 0 % 0-5 [facility] Platelet mean volume (Bld) [Entitic vol] 9.7 fL 6.2-12.0 [facility] Platelets (Bld) [#/Vol] 365 10*3/uL 150-450 [facility] Mucus LM Ql (Urine sed)Order ed By: Ryan Mccracken on 01-25-2024 Mucus Ql (Urine sed) 0 SEEN /hpf [facility] Nitrite Test strip Ql (U)Ord ered By: Ryan Mccracken on 01-25-2024 Nitrite Ql (U) Negative Negative [facility] No Panel InformationOrdered By: Ryan Mccracken on 01-25-2024 Urine RBC 0-5 SEEN /hpf 0-5 [facility] Estimated Creatinine Clearance Calc 85.54 ml/min [facility] Estimated GFR (MDRD) Amer 102 mL/min >60 [facility] Comment on above: GFR Calc Estimated GFR (MDRD) Non-Af Amer 84 mL/min >60 [facility] Comment on above: Non- GFR Calc Protein Test strip Ql (U)Ord ered By: Ryan Mccracken on 01-25-2024 Protein Ql (U) 30 mg/dl Negative [facility] RBC Auto (Bld) [#/Vol]Ordere d By: ED PROVIDER on 01-25-2024 RBC (Bld) [#/Vol] 5.27 10*6/uL 4.6-6.2 [facility] Serum or plasma calcium luis carlos urement (mass/volume)Ordered By: Ryan Mccracken on 01-25-2024 Calcium [Mass/Vol] 9.6 mg/dL 8.5-10.1 [facility] Serum or plasma creatinine m easurement (mass/volume)Ordered By: Ryan Mccracken on 01-25-2024 Creatinine [Mass/Vol] 1.05 mg/dL 0.70-1.30 [facility] Comment on above: The validity of the calculated GFR & GFRAA in patients over 70 years has not been determined. Clinical correlation is essential. Serum or plasma urea nitroge n measurement (mass/volume)Ordered By: Ryan Mccracken on 01-25-2024 Urea nitrogen [Mass/Vol] 19 mg/dL 7-18 [facility] Squamous epithelial cells de tection in urine sediment by light microscopyOrdered By: Ryan Mccracken on 01-25-2024 Epithelial cells.squamous LM Ql (Urine sed) 0 SEEN /hpf 0-5 [facility] Thin prep Papanicolaou smear with manual screeningOrdered By: Ryan Mccracken on 01-25-2024 Thin prep Papanicolaou smear with manual screening 4.2 g/dL 3.2-5.0 [facility] Thin prep Papanicolaou smear with manual screening 31 U/L 15-37 [facility] Comment on above: Moderate Hemolysis, Result may be falsely increased. Thin prep Papanicolaou smear with manual screening 14 5-15 [facility] Urine blood detectionOrdered By: Ryan Mccracken on 01-25-2024 RBC Ql (U) 25 /ul Negative [facility] Urine clarityOrdered By: Ryan Mccracken on 01-25-2024 Clarity (U) Clear Clear [facility] Urine color determinationOrd ered By: Ryan Mccracken on 01-25-2024 Color (U) Yellow Yellow [facility] Urine glucose detectionOrder ed By: Ryan Mccracken on 01-25-2024 Glucose Ql (U) 1000 mg/dl Normal [facility] Urine leukocyte esterase det ection by dipstickOrdered By: Ryan Mccracken on 01-25-2024 Leukocyte esterase Test strip Ql (U) Negative Negative [facility] Urine pHOrdered By: Ryan scott on 01-25-2024 pH (U) 7.0 [pH] 5.0 - 8.0 [facility] Urine sediment bacteria coun t by microscopy (number/high power field)Ordered By: Ryan Mccracken on 01-25-2024 Bacteria LM.HPF (Urine sed) [#/Area] 0 /[HPF] None Seen [facility] Urine specific gravity measu rementOrdered By: Ryan Mccracken on 01-25-2024 Specific gravity (U) [Rel density] 1.010 1.002-1.030 [facility] Urine urobilinogen measureme ntOrdered By: Ryan Mccracken on 01-25-2024 Urobilinogen Ql (U) Normal mg/dl Normal [facility] XR CHEST 2V FRONTAL/LATon [facility] XR Chest PA and Lateralon IMPRESSION: No acute radiographic abnormality. Director Of Planning: TREY Transcribe Date/Time: Oct 15 2023 12:50P Dictated by : HYACINTH HAQUE MD This examination was interpreted and the report reviewed and electronically signed by: HYACINTH HAQUE MD on Oct 15 2023 12:51PM [facility] DIVISION OF RADIOLOGY * * [...] soft tissues: Unremarkable. DIVISION OF RADIOLOGY Provider, Coy Ye - 10/15/2023 * * *Final Report* * [...] Unremarkable. IMPRESSION IMPRESSION: No acute radiographic abnormality. Director Of Planning: PSCB Transcribe Date/Time: Oct 15 2023 12:50P Dictated by : HYACINTH HAQUE MD This examination was interpreted and the report reviewed and electronically signed by: HYACINTH HAQUE MD on Oct 15 2023 12:51PM EST [facility] Radiology Study observation (narrative) [facility] XR Chest PA and LateralOrder ed By: [facility] Provider on 10-15-2023 [facility] Vital Signs Date Time Vital Sign Value Performing Clinician Facility 06-13-2025 19:40-0400 Body temperature 98 [degF] Austin Camarena NP-C Work Phone: [facility] 06-13-2025 19:40-0400 Diastolic blood pressure 89 mm[Hg] Austin Camarena SENIOR INVESTMENT ANALYST-C Work Phone: [facility] 06-13-2025 19:40-0400 Heart rate 99 /min Austin Camarena SENIOR INVESTMENT ANALYST-C Work Phone: [facility] 06-13-2025 19:40-0400 Respiratory rate 18 /min Austin Camarena SENIOR INVESTMENT ANALYST-C Work Phone: [facility] 06-13-2025 19:40-0400 SaO2% (BldA) [Mass fraction] 100 % Austin Camarena SENIOR INVESTMENT ANALYST-C Work Phone: 6(374)923-374667 [place] [address] 06-13-2025 19:40-0400 Systolic blood pressure 162 mm[Hg] Austin Camarena SENIOR INVESTMENT ANALYST-C Work Phone: 1(845)100-199467 [place] [address] 06-13-2025 16:25-0400 Body height 167.64 cm Austin Camarena SENIOR INVESTMENT ANALYST-C Work Phone: 6(820)591-687667 [place] [address] 06-13-2025 16:25-0400 Body mass index (BMI) [Ratio] 26.7 kg/m2 Austin Camarena SENIOR INVESTMENT ANALYST-C Work Phone: 4(399)574-130567 [place] [address] 06-13-2025 16:25-0400 Body weight 75.2 kg Austin Camarena SENIOR INVESTMENT ANALYST-C Work Phone: 9(185)842-754067 [place] [address] 06-13-2025 01:53-0400 Diastolic blood pressure 76 mm[Hg] Austin Camarena SENIOR INVESTMENT ANALYST-C Work Phone: 3(313)380-068167 [place] [address] 06-13-2025 01:53-0400 SaO2% (BldA) [Mass fraction] 100 % Austin Camarena SENIOR INVESTMENT ANALYST-C Work Phone: 2(387)077-244267 [place] [address] 06-13-2025 01:53-0400 Systolic blood pressure 109 mm[Hg] Austin Camarena SENIOR INVESTMENT ANALYST-C Work Phone: 0(255)042-023767 [place] [address] 06-13-2025 01:00-0400 Body temperature 97.9 [degF] Austin Camarena SENIOR INVESTMENT ANALYST-C Work Phone: 9(655)270-843467 [place] [address] 06-13-2025 01:00-0400 Heart rate 99 /min Austin Camarena SENIOR INVESTMENT ANALYST-C Work Phone: 0(208)387-086067 [place] [address] 06-13-2025 01:00-0400 Respiratory rate 18 /min Austin Camarena SENIOR INVESTMENT ANALYST-C Work Phone: 3(726)342-770067 [place] [address] 06-12-2025 20:18-0400 Body height 167.64 cm Austin Camarena SENIOR INVESTMENT ANALYST-C Work Phone: 8(135)954-369167 [place] [address] 06-12-2025 20:18-0400 Body mass index (BMI) [Ratio] 26.6 kg/m2 Austin Camarena SENIOR INVESTMENT ANALYST-C Work Phone: 8(679)418-529067 [place] [address] 06-12-2025 20:18-0400 Body weight 74.84 kg Austin Camarena SENIOR INVESTMENT ANALYST-C Work Phone: 4(610)824-916967 [place] [address] 06-08-2025 10:47-0400 Body height 167.64 cm Austin Camarena SENIOR INVESTMENT ANALYST-C Work Phone: 0(109)669-941667 [place] [address] 06-08-2025 10:47-0400 Body mass index (BMI) [Ratio] 27.6 kg/m2 Austin Camarena SENIOR INVESTMENT ANALYST-C Work Phone: 7(032)841-135467 [place] [address] 06-08-2025 10:47-0400 Body weight 77.73 kg Austin Camarena SENIOR INVESTMENT ANALYST-C Work Phone: 9(919)350-119867 [place] [address] 06-08-2025 10:47-0400 Diastolic blood pressure 78 mm[Hg] Austin Camarena SENIOR INVESTMENT ANALYST-C Work Phone: 1(558)495-334067 [place] [address] 06-08-2025 10:47-0400 Heart rate 99 /min Austin Camarena SENIOR INVESTMENT ANALYST-C Work Phone: 7(860)163-560067 [place] [address] 06-08-2025 10:47-0400 SaO2% (BldA) [Mass fraction] 97 % Austin Camarena SENIOR INVESTMENT ANALYST-C Work Phone: 4(677)842-429167 [place] [address] 06-08-2025 10:47-0400 Systolic blood pressure 114 mm[Hg] Austin Camarena SENIOR INVESTMENT ANALYST-C Work Phone: 2(222)310-030667 [place] [address] 05-03-2025 08:45-0400 Body height 167.64 cm Austin Camarena SENIOR INVESTMENT ANALYST-C Work Phone: 0(743)847-461967 [place] [address] 05-03-2025 08:45-0400 Body mass index (BMI) [Ratio] 26.4 kg/m2 Austin Camarena SENIOR INVESTMENT ANALYST-C Work Phone: 8(646)415-230067 [place] [address] 05-03-2025 08:45-0400 Body weight 74.44 kg Austin Camarena SENIOR INVESTMENT ANALYST-C Work Phone: [facility] 05-03-2025 08:45-0400 Diastolic blood pressure 76 mm[Hg] Austin Camarena SENIOR INVESTMENT ANALYST-C Work Phone: [facility] 05-03-2025 08:45-0400 Heart rate 93 /min Austin Camarena SENIOR INVESTMENT ANALYST-C Work Phone: [facility] 05-03-2025 08:45-0400 SaO2% (BldA) [Mass fraction] 98 % Austin Camarena SENIOR INVESTMENT ANALYST-C Work Phone: [facility] 05-03-2025 08:45-0400 Systolic blood pressure 130 mm[Hg] Austin Camarena SENIOR INVESTMENT ANALYST-C Work Phone: [facility] 04-30-2025 14:31-0400 Body weight 72 kg Austin Camarena MOTOR ELECTRICIAN.HYDROELECTRIC SYSTEMS TECHNICIAN Work Phone: [facility] 04-30-2025 14:31-0400 Diastolic blood pressure 79 mm[Hg] Austin Camarena MOTOR ELECTRICIAN.HYDROELECTRIC SYSTEMS TECHNICIAN Work Phone: [facility] 04-30-2025 14:31-0400 Heart rate 109 /min Austin Camarena MOTOR ELECTRICIAN.HYDROELECTRIC SYSTEMS TECHNICIAN Work Phone: [facility] 04-30-2025 14:31-0400 Systolic blood pressure 115 mm[Hg] Austin Camarena MOTOR ELECTRICIAN.HYDROELECTRIC SYSTEMS TECHNICIAN Work Phone: [facility] 04-19-2025 13:13-0400 Body height 167.64 cm Austin Camarena SENIOR INVESTMENT ANALYST-C Work Phone: [facility] 04-19-2025 13:13-0400 Body mass index (BMI) [Ratio] 25.8 kg/m2 Austin Camarena SENIOR INVESTMENT ANALYST-C Work Phone: [facility] 04-19-2025 13:13-0400 Body weight 72.57 kg Austin Camarena SENIOR INVESTMENT ANALYST-C Work Phone: [facility] 04-19-2025 13:13-0400 Diastolic blood pressure 75 mm[Hg] Austin Camarena SENIOR INVESTMENT ANALYST-C Work Phone: 6(445)600-183088 [place] [address] 04-19-2025 13:13-0400 Heart rate 105 /min Austin Camarena SENIOR INVESTMENT ANALYST-C Work Phone: 4(306)828-281467 [place] [address] 04-19-2025 13:13-0400 SaO2% (BldA) [Mass fraction] 97 % Austin Camarena SENIOR INVESTMENT ANALYST-C Work Phone: 1(423)536-482567 [place] [address] 04-19-2025 13:13-0400 Systolic blood pressure 115 mm[Hg] Austin Camarena SENIOR INVESTMENT ANALYST-C Work Phone: 8(029)828-900467 [place] [address] 02-06-2025 17:10-0400 Body height 167.64 cm Austin Camarena SENIOR INVESTMENT ANALYST-C Work Phone: 2(844)806-988167 [place] [address] 02-06-2025 17:10-0400 Body mass index (BMI) [Ratio] 28.1 kg/m2 Austin Camarena SENIOR INVESTMENT ANALYST-C Work Phone: 2(071)690-263567 [place] [address] 02-06-2025 17:10-0400 Body temperature 98.3 [degF] Austin Camarena SENIOR INVESTMENT ANALYST-C Work Phone: 6(475)854-994367 [place] [address] 02-06-2025 17:10-0400 Body weight 79.15 kg Austin Camarena SENIOR INVESTMENT ANALYST-C Work Phone: 3(749)860-328067 [place] [address] 02-06-2025 17:10-0400 Diastolic blood pressure 99 mm[Hg] Austin Camarena SENIOR INVESTMENT ANALYST-C Work Phone: 1(203)313-918767 [place] [address] 02-06-2025 17:10-0400 Heart rate 94 /min Austin Camarena SENIOR INVESTMENT ANALYST-C Work Phone: 0(489)889-158067 [place] [address] 02-06-2025 17:10-0400 Respiratory rate 16 /min Austin Camarena SENIOR INVESTMENT ANALYST-C Work Phone: 4(035)935-805667 [place] [address] 02-06-2025 17:10-0400 SaO2% (BldA) [Mass fraction] 100 % Austin Camarena SENIOR INVESTMENT ANALYST-C Work Phone: 9(916)233-360267 [place] [address] 02-06-2025 17:10-0400 Systolic blood pressure 167 mm[Hg] Austin Camarena SENIOR INVESTMENT ANALYST-C Work Phone: [facility] 01-25-2025 15:43-0400 Body weight 75.9 kg Austin Camarena MOTOR ELECTRICIAN.HYDROELECTRIC SYSTEMS TECHNICIAN Work Phone: [facility] 01-25-2025 15:43-0400 Diastolic blood pressure 78 mm[Hg] Austin Camarena MOTOR ELECTRICIAN.HYDROELECTRIC SYSTEMS TECHNICIAN Work Phone: [facility] 01-25-2025 15:43-0400 Heart rate 108 /min Austin Camarena MOTOR ELECTRICIAN.HYDROELECTRIC SYSTEMS TECHNICIAN Work Phone: [facility] 01-25-2025 15:43-0400 Respiratory rate 12 /min Austin Camarena MOTOR ELECTRICIAN.HYDROELECTRIC SYSTEMS TECHNICIAN Work Phone: [facility] 01-25-2025 15:43-0400 Systolic blood pressure 124 mm[Hg] Austin Camarena MOTOR ELECTRICIAN.HYDROELECTRIC SYSTEMS TECHNICIAN Work Phone: [facility] 01-18-2025 13:03-0400 Body mass index (BMI) [Ratio] 26.9 kg/m2 Austin Camarena SENIOR INVESTMENT ANALYST-C Work Phone: [facility] 01-18-2025 13:03-0400 Body weight 75.52 kg Asutin Camarena SENIOR INVESTMENT ANALYST-C Work Phone: [facility] 01-18-2025 13:03-0400 Diastolic blood pressure 68 mm[Hg] Austin Camarena SENIOR INVESTMENT ANALYST-C Work Phone: [facility] 01-18-2025 13:03-0400 Heart rate 112 /min Austin Camarena SENIOR INVESTMENT ANALYST-C Work Phone: [facility] 01-18-2025 13:03-0400 SaO2% (BldA) [Mass fraction] 96 % Austin Camarena SENIOR INVESTMENT ANALYST-C Work Phone: [facility] 01-18-2025 13:03-0400 Systolic blood pressure 106 mm[Hg] Austin Camarena SENIOR INVESTMENT ANALYST-C Work Phone: [facility] 12-28-2024 10:23-0500 Diastolic blood pressure 84 mm[Hg] Austin Nicoletteoble MOTOR ELECTRICIAN.HYDROELECTRIC SYSTEMS TECHNICIAN Work Phone: [facility] 12-28-2024 10:23-0500 Systolic blood pressure 128 mm[Hg] Austin Nicoletteoble MOTOR ELECTRICIAN.HYDROELECTRIC SYSTEMS TECHNICIAN Work Phone: [facility] 12-28-2024 10:08-0500 Body weight 69.4 kg Austin Nicoletteoble MOTOR ELECTRICIAN.HYDROELECTRIC SYSTEMS TECHNICIAN Work Phone: [facility] 12-28-2024 10:08-0500 Heart rate 94 /min Austin Nicoletteoble MOTOR ELECTRICIAN.HYDROELECTRIC SYSTEMS TECHNICIAN Work Phone: [facility] 12-11-2024 09:19-0500 Diastolic blood pressure 88 mm[Hg] Austin Nicoletteoble MOTOR ELECTRICIAN.HYDROELECTRIC SYSTEMS TECHNICIAN Work Phone: [facility] 12-11-2024 09:19-0500 Systolic blood pressure 124 mm[Hg] Austin Nicoletteoble MOTOR ELECTRICIAN.HYDROELECTRIC SYSTEMS TECHNICIAN Work Phone: [facility] 12-11-2024 09:06-0500 Body weight 70.76 kg Austin Nicoletteoble MOTOR ELECTRICIAN.HYDROELECTRIC SYSTEMS TECHNICIAN Work Phone: [facility] 12-11-2024 09:06-0500 Heart rate 89 /min Austin Nicoletteoble MOTOR ELECTRICIAN.HYDROELECTRIC SYSTEMS TECHNICIAN Work Phone: [facility] 12-11-2024 09:06-0500 Respiratory rate 14 /min Austin Nicoletteoble MOTOR ELECTRICIAN.HYDROELECTRIC SYSTEMS TECHNICIAN Work Phone: [facility] 11-27-2024 15:45-0500 Diastolic blood pressure 85 mm[Hg] Austin Nicoletteoble MOTOR ELECTRICIAN.HYDROELECTRIC SYSTEMS TECHNICIAN Work Phone: [facility] 11-27-2024 15:45-0500 Systolic blood pressure 135 mm[Hg] Austin Nicoletteoble MOTOR ELECTRICIAN.HYDROELECTRIC SYSTEMS TECHNICIAN Work Phone: [facility] 11-27-2024 15:29-0500 Body weight 70.76 kg Austin Nicoletteoble MOTOR ELECTRICIAN.HYDROELECTRIC SYSTEMS TECHNICIAN Work Phone: [facility] 11-27-2024 15:29-0500 Heart rate 92 /min Austin Nicoletteoble MOTOR ELECTRICIAN.HYDROELECTRIC SYSTEMS TECHNICIAN Work Phone: [facility] 11-27-2024 15:29-0500 Respiratory rate 14 /min Austin Camarena MOTOR ELECTRICIAN.HYDROELECTRIC SYSTEMS TECHNICIAN Work Phone: [facility] 11-22-2024 11:44-0500 Body mass index (BMI) [Ratio] 25 kg/m2 Austin Camarena SENIOR INVESTMENT ANALYST-C Work Phone: [facility] 11-22-2024 11:44-0500 Body weight 70.3 kg Austin Camarena SENIOR INVESTMENT ANALYST-C Work Phone: [facility] 11-22-2024 11:44-0500 Diastolic blood pressure 80 mm[Hg] Austin Camarena SENIOR INVESTMENT ANALYST-C Work Phone: [facility] 11-22-2024 11:44-0500 Heart rate 100 /min Austin Camarena SENIOR INVESTMENT ANALYST-C Work Phone: [facility] 11-22-2024 11:44-0500 SaO2% (BldA) [Mass fraction] 97 % Austin Camarena SENIOR INVESTMENT ANALYST-C Work Phone: [facility] 11-22-2024 11:44-0500 Systolic blood pressure 124 mm[Hg] Austin Camarena SENIOR INVESTMENT ANALYST-C Work Phone: [facility] 10-28-2024 17:40-0500 Body temperature 98 [degF] Austin Camarena SENIOR INVESTMENT ANALYST-C Work Phone: [facility] 10-28-2024 17:40-0500 Diastolic blood pressure 101 mm[Hg] Austin Camarena SENIOR INVESTMENT ANALYST-C Work Phone: [facility] 10-28-2024 17:40-0500 Heart rate 102 /min Austin Camarena SENIOR INVESTMENT ANALYST-C Work Phone: [facility] 10-28-2024 17:40-0500 Respiratory rate 18 /min Austin Camarena SENIOR INVESTMENT ANALYST-C Work Phone: [facility] 10-28-2024 17:40-0500 SaO2% (BldA) [Mass fraction] 100 % Austin Camarena SENIOR INVESTMENT ANALYST-C Work Phone: [facility] 10-28-2024 17:40-0500 Systolic blood pressure 140 mm[Hg] Austin Camarena SENIOR INVESTMENT ANALYST-C Work Phone: [facility] 10-28-2024 13:41-0500 Body mass index (BMI) [Ratio] 23.8 kg/m2 Austin Camarena SENIOR INVESTMENT ANALYST-C Work Phone: [facility] 10-28-2024 13:41-0500 Body weight 67.1 kg Austin Camarena SENIOR INVESTMENT ANALYST-C Work Phone: [facility] 08-07-2024 08:59-0400 Body weight 71.22 kg Austin Camarena MOTOR ELECTRICIAN.HYDROELECTRIC SYSTEMS TECHNICIAN Work Phone: [facility] 08-07-2024 08:59-0400 Diastolic blood pressure 85 mm[Hg] Austin Camarena MOTOR ELECTRICIAN.HYDROELECTRIC SYSTEMS TECHNICIAN Work Phone: [facility] 08-07-2024 08:59-0400 Heart rate 97 /min Austin Camarena MOTOR ELECTRICIAN.HYDROELECTRIC SYSTEMS TECHNICIAN Work Phone: [facility] 08-07-2024 08:59-0400 Respiratory rate 14 /min Austin Camarena MOTOR ELECTRICIAN.HYDROELECTRIC SYSTEMS TECHNICIAN Work Phone: [facility] 08-07-2024 08:59-0400 Systolic blood pressure 132 mm[Hg] Austin Camarena MOTOR ELECTRICIAN.HYDROELECTRIC SYSTEMS TECHNICIAN Work Phone: [facility] 05-16-2024 13:23-0400 Body weight 66.22 kg Austin Camarena MOTOR ELECTRICIAN.HYDROELECTRIC SYSTEMS TECHNICIAN Work Phone: [facility] 05-16-2024 13:23-0400 Diastolic blood pressure 64 mm[Hg] Austin Camarena MOTOR ELECTRICIAN.HYDROELECTRIC SYSTEMS TECHNICIAN Work Phone: [facility] 05-16-2024 13:23-0400 Heart rate 103 /min Austin Camarena MOTOR ELECTRICIAN.HYDROELECTRIC SYSTEMS TECHNICIAN Work Phone: [facility] 05-16-2024 13:23-0400 Respiratory rate 14 /min Austin Camarena APRN.HYDROELECTRIC SYSTEMS TECHNICIAN Work Phone: [facility] 05-16-2024 13:23-0400 Systolic blood pressure 101 mm[Hg] Austin Camarena APRN.HYDROELECTRIC SYSTEMS TECHNICIAN Work Phone: [facility] 05-05-2024 15:54-0400 Diastolic Blood Pressure Non-Invasive 72 mm[Hg] JESSICA GRACET DO [facility] 05-05-2024 15:54-0400 Heart rate 98 /min JESSICA GRACET DO [facility] 05-05-2024 15:54-0400 Respiratory rate 20 /min JESSICA GRACET DO [facility] 05-05-2024 15:54-0400 Systolic Blood Pressure Non-Invasive 127 mm[Hg] JESSICA GRACET DO [facility] 05-05-2024 14:27-0400 Diastolic Blood Pressure Non-Invasive 71 mm[Hg] JESSICA GRACET DO [facility] 05-05-2024 14:27-0400 Heart rate 107 /min JESSICA GRACET DO [facility] 05-05-2024 14:27-0400 Respiratory rate 16 /min JESSICA GRACET DO [facility] 05-05-2024 14:27-0400 Systolic Blood Pressure Non-Invasive 140 mm[Hg] JESSICA GRACET DO [facility] 05-05-2024 14:22-0400 SaO2% (BldA) [Mass fraction] 82.0 % JESSICA GRACET DO [facility] 05-05-2024 13:37-0400 Body temperature 97.7 [degF] JESSICA GRACET DO [facility] 05-05-2024 13:37-0400 Body weight 65.3 kg JESSICA FROMMELT DO [facility] 05-05-2024 13:37-0400 Diastolic Blood Pressure Non-Invasive 68 mm[Hg] JESSICA FROMMELT DO [facility] 05-05-2024 13:37-0400 Heart rate 113 /min JESSICA FROMMELT DO [facility] 05-05-2024 13:37-0400 Respiratory rate 20 /min JESSICA FROMMELT DO [facility] 05-05-2024 13:37-0400 Systolic Blood Pressure Non-Invasive 97 mm[Hg] JESSICA FROMMELT DO [facility] 01-29-2024 14:22-0400 Body height 167.64 cm SENIOR INVESTMENT ANALYST-C Austin Camarena Work Phone: [facility] 01-29-2024 14:22-0400 Body weight 62.7 kg SENIOR INVESTMENT ANALYST-C Austin Camarena Work Phone: [facility] 01-29-2024 09:41-0400 Diastolic blood pressure 91 mm[Hg] SENIOR INVESTMENT ANALYST-C Austin Camarena Work Phone: [facility] 01-29-2024 09:41-0400 Systolic blood pressure 158 mm[Hg] SENIOR INVESTMENT ANALYST-C Austin Camarena Work Phone: [facility] 01-29-2024 08:00-0400 Body temperature 97.5 [degF] SENIOR INVESTMENT ANALYST-C Austin Camarena Work Phone: [facility] 01-29-2024 08:00-0400 Heart rate 94 /min SENIOR INVESTMENT ANALYST-C Austin Camarena Work Phone: [facility] 01-29-2024 08:00-0400 Respiratory rate 14 /min SENIOR INVESTMENT ANALYST-C Austin Camarena Work Phone: [facility] 01-29-2024 08:00-0400 SaO2% (BldA) [Mass fraction] 100 % JIE Camarena Work Phone: [facility] 01-27-2024 16:50-0400 Body temperature 98.3 [degF] [facility] 01-27-2024 16:50-0400 Diastolic blood pressure 87 mm[Hg] [facility] 01-27-2024 16:50-0400 Heart rate 89 /min [facility] 01-27-2024 16:50-0400 Respiratory rate 20 /min [facility] 01-27-2024 16:50-0400 SaO2% (BldA) [Mass fraction] 99 % [facility] 01-27-2024 16:50-0400 Systolic blood pressure 139 mm[Hg] [facility] 01-27-2024 16:25-0400 Body height 167.64 cm [facility] 01-27-2024 16:25-0400 Body mass index (BMI) [Ratio] 22.3 kg/m2 [facility] 01-27-2024 16:25-0400 Body weight 62.7 kg [facility] 01-27-2024 11:07-0400 Body weight 63.8 kg Austin Camarena APRN.CNP Work Phone: [facility] 01-27-2024 11:07-0400 Diastolic blood pressure 92 mm[Hg] Austin Camarena APRN.HYDROELECTRIC SYSTEMS TECHNICIAN Work Phone: [facility] 01-27-2024 11:07-0400 Heart rate 121 /min Austin Camarena APRN.HYDROELECTRIC SYSTEMS TECHNICIAN Work Phone: [facility] 01-27-2024 11:07-0400 Respiratory rate 16 /min Austin Camarena APRN.HYDROELECTRIC SYSTEMS TECHNICIAN Work Phone: [facility] 01-27-2024 11:07-0400 Systolic blood pressure 165 mm[Hg] Austin Camarena APRN.HYDROELECTRIC SYSTEMS TECHNICIAN Work Phone: [facility] 01-26-2024 16:41-0400 Blood Pressure Location SARAVANAN SANCHEZ MD [facility] 01-26-2024 16:41-0400 Blood Pressure Method SARAVANAN SANCHEZ MD [facility] 01-26-2024 16:41-0400 Diastolic Blood Pressure Non-Invasive 88 mm[Hg] SARAVANAN SANCHEZ MD [facility] 01-26-2024 16:41-0400 Heart rate 99 /min SARAVANAN SANCHEZ MD [facility] 01-26-2024 16:41-0400 Respiratory rate 18 /min SARAVANAN SANCHEZ MD [facility] 01-26-2024 16:41-0400 Systolic Blood Pressure Non-Invasive 150 mm[Hg] SARAVANAN SANCHEZ MD [facility] 01-26-2024 14:44-0400 Blood Pressure Location SARAVANAN SANCHEZ MD [facility] 01-26-2024 14:44-0400 Blood Pressure Method SARAVANAN SANCHEZ MD [facility] 01-26-2024 14:44-0400 Diastolic Blood Pressure Non-Invasive 91 mm[Hg] SARAVANAN SANCHEZ MD [facility] 01-26-2024 14:44-0400 Heart rate 114 /min SARAVANAN SANCHEZ MD [facility] 01-26-2024 14:44-0400 Respiratory rate 18 /min SARAVANAN SANCHEZ MD [facility] 01-26-2024 14:44-0400 Systolic Blood Pressure Non-Invasive 168 mm[Hg] SARAVANAN SANCHEZ MD [facility] 01-26-2024 11:47-0400 Blood Pressure Location SARAVANAN SANCHEZ MD [facility] 01-26-2024 11:47-0400 Blood Pressure Method SARAVANAN SANCHEZ MD [facility] 01-26-2024 11:47-0400 Body temperature 98.24 [degF] SARAVANAN SANCHEZ MD [facility] 01-26-2024 11:47-0400 Body weight 63.6 kg SARAVANAN SANCHEZ MD [facility] 01-26-2024 11:47-0400 Diastolic Blood Pressure Non-Invasive 95 mm[Hg] SARAVANAN SANCHEZ MD [facility] 01-26-2024 11:47-0400 Heart rate 128 /min SARAVANAN SANCHEZ MD [facility] 01-26-2024 11:47-0400 Respiratory rate 20 /min SARAVANAN SANCHEZ MD [facility] 01-26-2024 11:47-0400 Systolic Blood Pressure Non-Invasive 177 mm[Hg] SARAVANAN SANCHEZ MD [facility] 01-25-2024 23:41-0400 Body temperature 98.1 [degF] [facility] 01-25-2024 23:41-0400 Diastolic blood pressure 111 mm[Hg] [facility] 01-25-2024 23:41-0400 Heart rate 85 /min [facility] 01-25-2024 23:41-0400 Respiratory rate 14 /min [facility] 01-25-2024 23:41-0400 SaO2% (BldA) [Mass fraction] 99 % [facility] 01-25-2024 23:41-0400 Systolic blood pressure 165 mm[Hg] [facility] 01-25-2024 18:51-0400 Body height 167.64 cm [facility] 01-25-2024 18:51-0400 Body mass index (BMI) [Ratio] 22.5 kg/m2 [facility] 01-25-2024 18:51-0400 Body weight 63.4 kg [facility] 12-28-2023 15:23-0500 Body weight 63.96 kg Austin Camarena MOTOR ELECTRICIAN.HYDROELECTRIC SYSTEMS TECHNICIAN Work Phone: [facility] 12-28-2023 15:23-0500 Diastolic blood pressure 78 mm[Hg] Austin Nicoletteoble MOTOR ELECTRICIAN.HYDROELECTRIC SYSTEMS TECHNICIAN Work Phone: [facility] 12-28-2023 15:23-0500 Heart rate 96 /min Austin Nicoletteoble MOTOR ELECTRICIAN.HYDROELECTRIC SYSTEMS TECHNICIAN Work Phone: [facility] 12-28-2023 15:23-0500 Respiratory rate 12 /min Austin Nicoletteoble MOTOR ELECTRICIAN.HYDROELECTRIC SYSTEMS TECHNICIAN Work Phone: [facility] 12-28-2023 15:23-0500 Systolic blood pressure 122 mm[Hg] Austin Nicoletteoble MOTOR ELECTRICIAN.HYDROELECTRIC SYSTEMS TECHNICIAN Work Phone: [facility] 10-22-2023 11:00-0500 Body weight 63.5 kg Austin Camarena MOTOR ELECTRICIAN.HYDROELECTRIC SYSTEMS TECHNICIAN Work Phone: [facility] 10-22-2023 11:00-0500 Diastolic blood pressure 79 mm[Hg] Austin Nicoletteoble MOTOR ELECTRICIAN.HYDROELECTRIC SYSTEMS TECHNICIAN Work Phone: [facility] 10-22-2023 11:00-0500 Heart rate 92 /min Austin Nicoletteoble MOTOR ELECTRICIAN.HYDROELECTRIC SYSTEMS TECHNICIAN Work Phone: [facility] 10-22-2023 11:00-0500 Respiratory rate 14 /min Austin Nicoletteoble MOTOR ELECTRICIAN.HYDROELECTRIC SYSTEMS TECHNICIAN Work Phone: [facility] 10-22-2023 11:00-0500 Systolic blood pressure 119 mm[Hg] Austin Nicoletteoble MOTOR ELECTRICIAN.HYDROELECTRIC SYSTEMS TECHNICIAN Work Phone: [facility] 10-15-2023 11:10-0500 Body weight 63.05 kg Austin Camarena MOTOR ELECTRICIAN.HYDROELECTRIC SYSTEMS TECHNICIAN Work Phone: [facility] 10-15-2023 11:10-0500 Diastolic blood pressure 78 mm[Hg] Austin Camarena MOTOR ELECTRICIAN.HYDROELECTRIC SYSTEMS TECHNICIAN Work Phone: [facility] 10-15-2023 11:10-0500 Heart rate 90 /min Austin Camarena MOTOR ELECTRICIAN.HYDROELECTRIC SYSTEMS TECHNICIAN Work Phone: [facility] 10-15-2023 11:10-0500 Respiratory rate 16 /min Austin Camarena MOTOR ELECTRICIAN.HYDROELECTRIC SYSTEMS TECHNICIAN Work Phone: [facility] 10-15-2023 11:10-0500 Systolic blood pressure 112 mm[Hg] Austin Camarena MOTOR ELECTRICIAN.HYDROELECTRIC SYSTEMS TECHNICIAN Work Phone: [facility] Encounters Encounter Date Encounter Type Care Provider Facility Start: 06-13-2025 End: 06-13-2025 Emergency department patient visit Austin Camarena SENIOR INVESTMENT ANALYST-C Work Phone: -Emergency Department Work Phone: Start: 06-12-2025 End: 06-13-2025 Emergency department patient visit Austin Camarena SENIOR INVESTMENT ANALYST-C Work Phone: -Emergency Department Work Phone: Start: 06-08-2025 End: 06-08-2025 ambulatory Austin Camarena SENIOR INVESTMENT ANALYST-C Work Phone: -[facility] Start: 06-08-2025 End: 06-08-[address] Mushtaq Hernandez MD -[facility] Work Phone: Start: 05-17-2025 End: 05-17-2025 Patient encounter procedure Jaycob Argueta DO -[facility] Work Phone: Start: 05-17-2025 End: 05-17-2025 ambulatory Austin Camarena SENIOR INVESTMENT ANALYST-C Work Phone: -[facility] Start: 05-15-2025 End: 05-18-2025 ambulatory Austin Camarena MOTOR ELECTRICIAN.HYDROELECTRIC SYSTEMS TECHNICIAN Work Phone: Internal Medicine [facility] Start: 05-03-2025 End: 05-03-[address] Mushtaq Hernandez MD -[facility] Work Phone: Start: 05-03-2025 End: 05-03-2025 ambulatory Austin Camarena NP-C Work Phone: [facility] Work Phone: Start: 05-01-2025 End: 05-01-2025 ambulatory AUSTIN CAMARENA Facility:[facility] Start: 05-01-2025 End: 05-01-2025 Follow-up encounter Austin Camarena APRN.HYDROELECTRIC SYSTEMS TECHNICIAN Work Phone: [facility] Start: 04-30-2025 End: 04-30-2025 Patient encounter procedure Austin Camarena APRN.HYDROELECTRIC SYSTEMS TECHNICIAN Work Phone: [facility] Comment on above: Dental infection (Pr imary Dx); Screening for depression; Encounter for screening examination for other mental health and behavioral disorders; Medication management; Elevated LDL cholesterol level; Diabetes 1.5, managed as type 2 (HCC) Start: 04-30-2025 End: 04-30-2025 ambulatory AUSTIN CAMARENA Facility:[facility] Start: 04-25-2025 End: 04-25-2025 ambulatory Rufus Brower [facility] Work Phone: [facility] Start: 04-25-2025 End: 04-25-2025 Patient encounter procedure Rufus Brower [facility] Work Phone: [facility] Start: 04-19-2025 End: 04-19-2025 Patient encounter procedure Queenie SYKESC -[facility] Work Phone: Start: 04-19-2025 End: 04-19-2025 ambulatory Austin Camarena SENIOR INVESTMENT ANALYST-C Work Phone: [facility] Work Phone: Start: 04-16-2025 ambulatory Austin Camarena Facilit y:[facility] Start: 03-26-2025 End: 03-27-2025 Refill Austin Camarena MOTOR ELECTRICIAN.HYDROELECTRIC SYSTEMS TECHNICIAN Work Phone: [facility] Comment on above: Refill Request Start: 03-06-2025 End: 03-06-2025 Refill Austin Camarena APRN.CNP Work Phone: [facility] Comment on above: Refill Request Start: 02-06-2025 End: 02-06-2025 Emergency department patient visit Austin CERON Work Phone: -Emergency Department Work Phone: Start: 01-26-2025 End: 01-26-2025 ambulatory Austin Camarena APRN.CNP Work Phone: [facility] Comment on above: Ultra two Start: 01-25-2025 End: 01-25-2025 Patient encounter procedure Austin Camarena APRN.TESS Work Phone: [facility] Comment on above: ADHD (attention defi cit hyperactivity disorder), predominantly hyperactive impulsive type (Primary Dx) Start: 01-25-2025 End: 01-25-2025 ambulatory AUSTIN CAMARENA Facility:[facility] Start: 01-18-2025 End: 01-18-2025 Patient encounter procedure Queenie CERON -[facility] Work Phone: Start: 01-18-2025 End: 01-18-2025 ambulatory Austin Camarena Facility:[facility] Start: 01-08-2025 End: 03-10-2025 Follow-up encounter Austin Camarena APRN.CNP Work Phone: [facility] Start: 01-05-2025 End: 01-08-2025 Refill Austin Camarena APRN.CNP Work Phone: [facility] Comment on above: Refill Request Start: 12-28-2024 End: 12-28-2024 Patient encounter procedure Prakash Fontana OD Work Phone: Ophthalmology Comment on above: Type 2 diabetes sergio itus without retinopathy (HCC) (Primary Dx); Myopia, bilateral; Nuclear sclerosis of both eyes Start: 12-28-2024 End: 12-28-2024 Patient encounter procedure Austin Camarena APRN.CNP Work Phone: [facility] Comment on above: Medication managemen t (Primary Dx); ADHD (attention deficit hyperactivity disorder), predominantly hyperactive impulsive type Start: 12-28-2024 End: 01-02-2025 ambulatory Austin Camarena APRN.HYDROELECTRIC SYSTEMS TECHNICIAN Work Phone: [facility] Comment on above: Test results Start: 12-11-2024 End: 12-11-2024 Patient encounter procedure Austin Camarena APRN.HYDROELECTRIC SYSTEMS TECHNICIAN Work Phone: [facility] Comment on above: ADHD (attention defi cit hyperactivity disorder), predominantly hyperactive impulsive type (Primary Dx); Primary hypertension Start: 12-11-2024 End: 12-11-2024 ambulatory AUSTIN CAMARENA Facility:[facility] Start: 11-27-2024 End: 11-27-2024 ambulatory AUSTIN CAMARENA Facility:[facility] Start: 11-27-2024 End: 11-27-2024 Patient encounter procedure Austin Camarena APRN.HYDROELECTRIC SYSTEMS TECHNICIAN Work Phone: [facility] Comment on above: ADHD (attention defi cit hyperactivity disorder), predominantly hyperactive impulsive type (Primary Dx) Start: 11-24-2024 End: 11-24-2024 Telephone encounter Austin Camarena APRN.HYDROELECTRIC SYSTEMS TECHNICIAN Work Phone: [facility] Comment on above: Results Start: 11-22-2024 End: 11-22-2024 Patient encounter procedure Queenie Gonzales NP-C -[facility] Work Phone: Start: 11-22-2024 End: 11-22-2024 ambulatory Austinsavita Camarena Facility:[facility] Start: 11-20-2024 End: 11-20-2024 ambulatory AUSTINSAVITA CAMARENA Facility:[facility] Start: 11-07-2024 End: 11-10-2024 ambulatory Austin Chelsey MOTOR ELECTRICIAN.HYDROELECTRIC SYSTEMS TECHNICIAN Work Phone: Internal Medicine [facility] Start: 10-28-2024 End: 10-28-2024 Emergency department patient visit Dr. Ludin Sanderson MD -Emergency Department Work Phone: Start: 10-27-2024 End: 10-27-2024 ambulatory PRAKASH FONTANA Facility:[facility] Start: 10-27-2024 End: 10-27-2024 Patient encounter procedure Prakash Fontana OD Work Phone: Ophthalmology Comment on above: Type 2 diabetes sergio itus without retinopathy (HCC) (Primary Dx); Myopia, bilateral; Nuclear sclerosis of both eyes Start: 10-18-2024 End: 10-18-2024 Patient encounter procedure Mary Longoria APRN.HYDROELECTRIC SYSTEMS TECHNICIAN Work Phone: [facility] Comment on above: Procedure not niall d out (Primary Dx) Start: 10-18-2024 End: 10-18-2024 Emergency department patient visit BROOKLYN BOSTON DO Facility:[facility] Start: 10-18-2024 End: 10-18-2024 ambulatory AUSTIN CAMARENA Facility:[facility] Start: 10-03-2024 End: 10-03-2024 ambulatory Austin Camarena Facility:[facility] Start: 08-15-2024 End: 08-15-2024 ambulatory Susi Wilhelm Facility:[facility] Start: 08-07-2024 End: 08-07-2024 Patient encounter procedure Austin Camarena MOTOR ELECTRICIAN.HYDROELECTRIC SYSTEMS TECHNICIAN Work Phone: [facility] Comment on above: Nausea and vomiting, unspecified vomiting type (Primary Dx); Type 2 diabetes mellitus with peripheral neuropathy (HCC); Encounter for immunization; Hematemesis with nausea; Acute gastric ulcer without hemorrhage or perforation Start: 08-07-2024 End: 08-07-2024 ambulatory AUSTIN CAMARENA Facility:[facility] Start: 07-31-2024 ambulatory Austin Camarena Facilit y:[facility] Start: 07-30-2024 End: 08-01-2024 ambulatory Victoria Davey Facility:[facility] Start: 07-28-2024 End: 07-29-2024 Emergency department patient visit Austin Camarena Facility:[facility] Start: 07-05-2024 End: 07-05-2024 ambulatory Austin Camarena Facility:[facility] Start: 05-16-2024 End: 05-16-2024 Patient encounter procedure Austin Camarena MOTOR ELECTRICIAN.HYDROELECTRIC SYSTEMS TECHNICIAN Work Phone: [facility] Comment on above: Type 2 diabetes sergio itus with peripheral neuropathy (HCC) (Primary Dx); Nausea and vomiting, unspecified vomiting type; Diabetes 1.5, managed as type 2 (HCC); Elevated LDL cholesterol level Start: 05-05-2024 End: 05-05-2024 Emergency department patient visit JESSICA KILLIAN DO [facility] Start: 05-01-2024 Get Medical Advice Austin Camarena APRN.HYDROELECTRIC SYSTEMS TECHNICIAN Work Phone: [facility] Comment on above: Refills Start: 04-30-2024 Refill Austin wasserman APRN.TESS Work Phone: [facility] Comment on above: Refill Request Start: 03-28-2024 ambulatory Austin wasserman APRN.TESS Work Phone: [facility] Comment on above: Insulin pen needles Start: 02-08-2024 End: 02-08-2024 Patient encounter procedure Eder Li Work Phone: Podiatry Comment on above: Porokeratosis (Prima ry Dx); Diabetes 1.5, managed as type 2 (HCC); Diminished pulses in lower extremity Start: 01-29-2024 Non-patient / Non-visit SENIOR INVESTMENT ANALYST-C Brijesh Camarena Work Phone: [facility] Work Phone: Start: 01-28-2024 Non-patient / Non-visit SENIOR INVESTMENT ANALYST-Joanna Camarena Work Phone: [facility] Start: 01-27-2024 End: 01-29-2024 Evaluation and management of inpatient [facility] 3 Work Phone: Start: 01-27-2024 End: 01-27-2024 Patient encounter procedure Austin Camarena APRN.TESS Work Phone: [facility] Comment on above: Type 2 diabetes sergio itus without complication, without long- term current use of insulin (HCC) (Primary Dx); Nausea and vomiting, unspecified vomiting type Start: 01-26-2024 ambulatory Austin wasserman APRN.CNP Work Phone: [facility] Comment on above: Vomiting Start: 01-26-2024 End: 01-26-2024 Emergency department patient visit SARAVANAN SANCHEZ MD [facility] Start: 01-25-2024 End: 01-25-2024 Emergency department patient visit [facility]-Emergency Department Work Phone: Start: 12-28-2023 End: 12-28-2023 Patient encounter procedure Austin Camarena APRN.TESS Work Phone: [facility] Comment on above: Type 2 diabetes sergio itus without complication, without long- term current use of insulin ([facility]) (Primary Dx); Encounter for smoking cessation counseling Start: 12-21-2023 Refill Austin wasserman APRN.CNP Work Phone: [facility] Comment on above: Refill Request Start: 10-22-2023 End: 10-22-2023 Patient encounter procedure Austin Camarena APRN.TESS Work Phone: [facility] Comment on above: Type 2 diabetes sergio itus without complication, without long- term current use of insulin ([facility]) (Primary Dx); Encounter for smoking cessation counseling Start: 10-15-2023 Telephone encounter Austin de leon APRN.CNP Work Phone: [facility] Comment on above: Results Start: 10-15-2023 End: 10-15-2023 Subsequent hospital visit by physician [facility] Work Phone: Radiology Comment on above: Chronic cough [R05.3 ] Start: 10-15-2023 End: 10-15-2023 Patient encounter procedure Austin Camarena APRN.CNP Work Phone: [facility] Comment on above: Screening for diabet es mellitus (Primary Dx); Encounter for lipid screening for cardiovascular disease; Wellness examination; Bipolar affective disorder, remission status unspecified (HCC); Encounter for immunization; Diabetes 1.5, managed as type 2 (HCC); Special screening examination for viral disease; Screening for HIV (human immunodeficiency virus); Chronic cough; Callus of foot Start: 10-15-2023 End: 10-15-2023 Patient encounter status Austin Camarena APRN.HYDROELECTRIC SYSTEMS TECHNICIAN Work Phone: [facility] Work Phone: Procedures Date Procedure Procedure Detail Performing Clinician Start: 06-13-2025 Computed tomography of abdomen and pelvis with intravenous contrast Austin Camarena SENIOR INVESTMENT ANALYST-C Work Phone: Start: 06-13-2025 Estimated creatinine clearance Austin Camarena SENIOR INVESTMENT ANALYST-C Work Phone: Start: 06-12-2025 Estimated creatinine clearance Austin Camarena SENIOR INVESTMENT ANALYST-C Work Phone: Start: 06-12-2025 Methadone measurement, urine Austin cunningham SENIOR INVESTMENT ANALYST-C Work Phone: Start: 06-12-2025 Urnls dip stick/tablet reagent auto microscopy Austin Camarena SENIOR INVESTMENT ANALYST-C Work Phone: Start: 06-12-2025 Computed tomography of abdomen and pelvis with intravenous contrast Austin Camarena SENIOR INVESTMENT ANALYST-C Work Phone: Start: 08-07-2024 Myreks COVID-19 VACCINE AGE 12+ YR (COMIRNATY) Austin Camarena MOTOR ELECTRICIAN.HYDROELECTRIC SYSTEMS TECHNICIAN Work Phone: Start: 01-28-2024 Esophagogastroduodenoscopy SENIOR INVESTMENT ANALYST-C Austin Camarena Work Phone: Start: 01-27-2024 US scan of gallbladder SENIOR INVESTMENT ANALYST-C Austin Camarena Work Phone: Start: 01-25-2024 Computed tomography of abdomen and pelvis with intravenous contrast Start: 10-15-2023 Radiologic exam chest 2 views Austin de leon APRN.HYDROELECTRIC SYSTEMS TECHNICIAN Work Phone: None (qualifier value) AUGUSTINE SANCHEZ MD Plan of Treatment Date Care Activity Detail Author Start: 10-15-2033 Urine microalbumin profile DTaP,Tdap,Td Vaccine (2 - Td or Tdap) [facility] Start: 05-01-2026 Hepatitis B screening Urine Albumin:Creatinine Ratio [facility] Start: 04-30-2026 Annual PCP Team Chronic Disease Visit Annual PCP Team Chronic Disease Visit [facility] Start: 04-30-2026 Hepatitis B surface antibody level LDL Cholesterol [facility] Start: 01-25-2026 Annual PCP Team Chronic Disease Visit Annual PCP Team Chronic Disease Visit [facility] Start: 01-03-2026 End: 01-03-2026 Patient encounter procedure 01/03/2026 9:00 AM EST Office Visit [facility] [address] [place] [address] Prakash Fontana, OD [address] [place] [address] 1 year follow up diabetic eye exam Ophthalmology Comment on above: 1 year follow up diabetic eye exam Start: 12-28-2025 Annual PCP Team Chronic Disease Visit Annual PCP Team Chronic Disease Visit [facility] Start: 12-11-2025 Annual PCP Team Chronic Disease Visit Annual PCP Team Chronic Disease Visit [facility] Start: 11-27-2025 Annual PCP Team Chronic Disease Visit Annual PCP Team Chronic Disease Visit [facility] Start: 11-20-2025 Hepatitis B surface antibody level LDL Cholesterol [facility] Start: 10-30-2025 End: 10-30-2025 Patient encounter procedure 10/30/2025 9:20 AM EST Office Visit [facility] [address] [place], [place] [id number] Austin Camarena APRN.HYDROELECTRIC SYSTEMS TECHNICIAN [address] [place] [address] 6 month follow up [facility] Comment on above: 6 month follow up Start: 10-27-2025 Glaucoma screening Dilated Retinal Exam [facility] Start: 08-07-2025 Annual PCP Team Chronic Disease Visit Annual PCP Team Chronic Disease Visit [facility] Start: 07-09-2025 Influenza vaccination [facility] Start: 06-13-2025 [facility] Start: 06-13-2025 [facility] Start: 05-18-2025 End: 05-18-2025 ambulatory 05/18/2025 9:00 AM EDT Results Only [facility] [address] [facility] [place] [address] [facility] Start: 05-16-2025 Annual PCP Team Chronic Disease Visit Annual PCP Team Chronic Disease Visit [facility] Start: 05-15-2025 End: 08-14-2025 Hemoglobin A1c in Blood HEMOGLOBIN A1C Lab Routine Diabetes 1.5, managed as type 2 (HCC) Expected: 05/15/2025, Expires: 08/14/2025 [facility] Work Phone: Comment on above: Expected: 05/15/2025, Expires: Start: 05-08-2025 End: 08-07-2025 Comprehensive metabolic 2000 panel - Serum or Plasma COMPREHENSIVE METABOLIC PANEL Lab Routine Hyperkalemia Expected: 05/08/2025, Expires: 08/07/2025 [facility] Work Phone: Comment on above: Expected: 05/08/2025, Expires: Start: 05-07-2025 Influenza [facility] Comment on above: Postponed from 07/09/2024 (Declined at t his time) Start: 04-30-2025 End: 04-30-2025 Patient encounter procedure 04/30/2025 2:40 PM EDT Office Visit [facility] [address] [place], [place] [id number] Austin Camarena APRN.[facility] [address] [place] [address] 3 month follow up [facility] Comment on above: 3 month follow up Start: 04-30-2025 End: 07-30-2025 Microalbumin/Creatinine [Mass Ratio] in Urine ALBUMIN/CREATININE RATIO, URINE Lab Routine Diabetes 1.5, managed as type 2 (HCC) Expected: 04/30/2025, Expires: 07/30/2025 [facility] Work Phone: Comment on above: Expected: 04/30/2025, Expires: Start: 04-27-2025 End: 04-27-2025 Patient encounter procedure 04/27/2025 3:00 PM EDT Office Visit [facility] [address] [facility] [place] [id number] Austin Camarena APRN.HYDROELECTRIC SYSTEMS TECHNICIAN [address] [place], [place] [phone] 3 month follow up [facility] Comment on above: 3 month follow up Start: 04-04-2025 Hemoglobin A1c measurement HbA1C [facility] Start: 02-18-2025 Hemoglobin A1c measurement HbA1C [facility] Start: 02-07-2025 Diabetic foot examination Diabetic Foot Exam [facility] Start: 02-06-2025 [facility] Start: 02-02-2025 Annual PCP Team Chronic Disease Visit Annual PCP Team Chronic Disease Visit [facility] Start: 01-26-2025 Annual PCP Team Chronic Disease Visit Annual PCP Team Chronic Disease Visit [facility] Start: 01-25-2025 End: 01-25-2025 Patient encounter procedure 01/25/2025 10:40 AM EDT Office Visit [facility] [address] [place], [place] [phone] Austin Camarena APRN.HYDROELECTRIC SYSTEMS TECHNICIAN [address] [place] [id number] med follow up [facility] Comment on above: med follow up Start: 01-16-2025 End: 04-17-2025 QUANTITATIVE TOXICOLOGY PANEL, URINE QUANTITATIVE TOXICOLOGY PANEL, URINE Lab Routine Medication management Expected: 01/16/2025, Expires: 04/17/2025 [facility] Work Phone: Comment on above: Expected: 01/16/2025, Expires: Start: 01-16-2025 End: 04-17-2025 TOXICOLOGY SCREEN, ROUTINE URINE TOXICOLOGY SCREEN, ROUTINE URINE Lab Routine Medication management Expected: 01/16/2025, Expires: 04/17/2025 [facility] Comment on above: Expected: 01/16/2025, Expires: Start: 12-28-2024 End: 12-28-2024 Patient encounter procedure 12/28/2024 2:45 PM EST Office Visit [facility] [address] [place] [address] Prakash Fontana, OD [address] [place] [address] refraction check Ophthalmology Comment on above: refraction check Start: 12-28-2024 Annual PCP Team Chronic Disease Visit Annual PCP Team Chronic Disease Visit [facility] Start: 12-28-2024 End: 03-29-2025 QUANTITATIVE TOXICOLOGY PANEL, URINE [facility] Comment on above: Expected: 12/28/2024, Expires: Start: 12-28-2024 End: 03-29-2025 TOXICOLOGY SCREEN, ROUTINE URINE [facility] Work Phone: Comment on above: Expected: 12/28/2024, Expires: Start: 12-11-2024 End: 12-11-2024 Patient encounter procedure 12/11/2024 9:20 AM EST Office Visit [facility] [address] [facility] [place] [address] Austin Camarena APRN.HYDROELECTRIC SYSTEMS TECHNICIAN [address] [facility] [place], [place] [id number] 2 week follow up Family [facility] Comment on above: 2 week follow up Start: 11-27-2024 End: 11-27-2024 Patient encounter procedure 11/27/2024 10:20 AM EST Office Visit [facility] [address] [facility] [place] [address] Austin Camarena APRN.HYDROELECTRIC SYSTEMS TECHNICIAN [address] [facility] [place], [place] [id number] 6 month follow up [facility] Comment on above: 6 month follow up Start: 11-23-2024 End: 11-23-2024 Patient encounter procedure 11/23/2024 1:20 PM EST Office Visit [facility] [address] [facility] [place], [place] [phone] Austin Camarena APRN.HYDROELECTRIC SYSTEMS TECHNICIAN [address] [place], [place] [phone] 6 month follow up [facility] Comment on above: 6 month follow up Start: 11-16-2024 End: 11-16-2024 Patient encounter procedure 11/16/2024 1:20 PM EST Office Visit [facility] [address] [place], [place] [phone] Austin Camarena APRN.HYDROELECTRIC SYSTEMS TECHNICIAN [address] [place], [place] [address] [address] [facility] Comment on above: 6 month follow up Start: 11-08-2024 Medicare Advantage Annual Wellness Visit Medicare Advantage Annual Wellness Visit [facility] Start: 11-07-2024 End: 02-06-2025 Basic metabolic 2000 panel - Serum or Plasma BASIC METABOLIC PANEL Lab Routine Diabetes 1.5, managed as type 2 (HCC) Expected: 11/07/2024, Expires: 02/06/2025 [facility] Work Phone: Comment on above: Expected: 11/07/2024, Expires: Start: 11-07-2024 End: 02-06-2025 Hemoglobin A1c in Blood HEMOGLOBIN A1C Lab Routine Diabetes 1.5, managed as type 2 (HCC) Expected: 11/07/2024, Expires: 02/06/2025 [facility] Comment on above: Expected: 11/07/2024, Expires: Start: 11-07-2024 End: 02-06-2025 Lipid 1996 panel - Serum or Plasma LIPID PANEL BASIC Lab Routine Diabetes 1.5, managed as type 2 (HCC) Expected: 11/07/2024, Expires: 02/06/2025 [facility] Comment on above: Expected: 11/07/2024, Expires: Start: 10-28-2024 [facility] Start: 10-27-2024 End: 10-27-2024 Patient encounter procedure Ophthalmology Comment on above: eye ecam diabetic eye exam Start: 10-26-2024 Glaucoma screening Dilated Retinal Exam [facility] Start: 10-22-2024 Annual PCP Team Chronic Disease Visit Annual PCP Team Chronic Disease Visit [facility] Start: 10-15-2024 3 comp foot exam completed Diabetic Foot Exam [facility] Start: 10-15-2024 Annual PCP Team Chronic Disease Visit Annual PCP Team Chronic Disease Visit [facility] Start: 10-15-2024 Diabetic foot examination Diabetic Foot Exam [facility] Start: 10-15-2024 Hepatitis B screening Urine Albumin:Creatinine Ratio [facility] Start: 10-15-2024 Hepatitis B surface antibody level LDL Cholesterol [facility] Start: 10-05-2024 Hemoglobin A1c measurement HbA1C [facility] Start: 07-09-2024 Covid-19 Vaccine () Covid-19 Vaccine () [facility] Start: 07-09-2024 Influenza vaccination [facility] Start: 07-08-2024 Hemoglobin A1c measurement HbA1C [facility] Start: 05-16-2024 End: 05-16-2024 Patient encounter procedure 05/16/2024 1:40 PM EDT Office Visit Family [facility] [address] [place] [phone] Austin Camarena APRN.[facility] [address] [place] [address] follow up Family [facility] Comment on above: follow up Start: 05-07-2024 Influenza vaccination Influenza Vaccine (#1) [facility] Comment on above: Postponed from 07/09/2023 (Declined at t his time) Start: 04-28-2024 Hemoglobin A1c measurement HbA1C [facility] Start: 04-15-2024 Hemoglobin A1c/Hemoglobin.total in Blood HbA1C [facility] Start: 03-27-2024 Hemoglobin A1c measurement HbA1C [facility] Start: 02-05-2024 Blood chemistry [facility] Start: 02-04-2024 Blood chemistry [facility] Start: 02-03-2024 Blood chemistry [facility] Start: 02-02-2024 Blood chemistry [facility] Start: 02-01-2024 Blood chemistry [facility] Start: 01-31-2024 Blood chemistry [facility] Start: 01-30-2024 Blood chemistry [facility] Start: 01-29-2024 Patient discharge [facility] Start: 01-28-2024 Referral to gastroenterology service [facility] Start: 01-28-2024 Blood chemistry [facility] Start: 01-28-2024 Complete blood count [facility] Start: 01-27-2024 [facility] Start: 01-27-2024 Ambulation without limitation [facility] Start: 01-27-2024 Assessment of risk of venous thromboembolism [facility] Start: 01-27-2024 Care regimes management [facility] Start: 01-27-2024 Insertion of catheter into peripheral vein [facility] Start: 01-27-2024 Notification of physician [facility] Start: 01-27-2024 Oxygen therapy [facility] Start: 01-27-2024 Patient referral to dietitian [facility] Start: 01-27-2024 Providing care according to standard [facility] Start: 01-27-2024 Radionuclide gastric emptying study [facility] Start: 01-27-2024 [facility] Start: 01-27-2024 End: 01-27-2024 Following clinical pathway protocol [facility] Start: 01-27-2024 Verification routine [facility] Start: 01-27-2024 Admission procedure [facility] Start: 01-27-2024 Thyroid stimulating hormone measurement [facility] Start: 01-27-2024 US Gallbladder [facility] Start: 01-27-2024 US scan of gallbladder Gallbladder [facility] Start: 01-27-2024 Patient referral to dietitian [facility] Start: 01-25-2024 [facility] Start: 01-14-2024 Hemoglobin A1c measurement HbA1C [facility] Start: 12-28-2023 End: 03-28-2024 Hemoglobin A1c in Blood [facility] Work Phone: Comment on above: Expected: 12/28/2023, Expires: Start: 11-08-2023 Behavioral Health Screening Behavioral Health Screening [facility] Start: 11-08-2023 Depression Assessment Depression Assessment [facility] Start: 10-15-2023 End: 01-14-2024 ALBUMIN/CREAT RATIO RND UR [facility] Work Phone: Comment on above: Expected: 10/15/2023, Expires: Start: 10-15-2023 End: 01-14-2024 CBC W Auto Differential panel - Blood [facility] Work Phone: Comment on above: Expected: 10/15/2023, Expires: Start: 10-15-2023 End: 01-14-2024 Comprehensive metabolic 2000 panel - Serum or Plasma [facility] Work Phone: Comment on above: Expected: 10/15/2023, Expires: Start: 10-15-2023 End: 01-14-2024 Hemoglobin A1c in Blood [facility] Work Phone: Comment on above: Expected: 10/15/2023, Expires: Start: 10-15-2023 End: 01-14-2024 Hepatitis C virus Ab [Presence] in Serum [facility] Work Phone: Comment on above: Expected: 10/15/2023, Expires: Start: 10-15-2023 End: 01-14-2024 HIV 1+2 Ab [Presence] in Serum or Plasma by Immunoassay [facility] Work Phone: Comment on above: Expected: 10/15/2023, Expires: Start: 10-15-2023 End: 01-14-2024 LIPID PANEL, NONFASTING [facility] Work Phone: Comment on above: Expected: 10/15/2023, Expires: Start: 10-15-2023 End: 01-14-2024 Urinalysis complete panel - Urine [facility] Work Phone: Comment on above: Expected: 10/15/2023, Expires: Start: 07-09-2023 Covid-19 Vaccine () Covid-19 Vaccine () [facility] Start: 2004 Pneumococcal vaccination Pneumococcal Vaccine (1 of 2 - PCV) [facility] Start: 2003 Anxiety Screening Anxiety Screening [facility] Start: 2003 Depression Screening Depression Screening [facility] Start: 2003 Hepatitis B surface antibody level LDL Cholesterol [facility] Start: 2003 Hepatitis C Screening Hepatitis C Screening [facility] Start: 2003 HIV Screening HIV Screening [facility] Start: 1995 Glaucoma screening Dilated Retinal Exam [facility] Start: 1995 Hepatitis B screening Urine Albumin:Creatinine Ratio [facility] Start: 1995 Hepatitis C antibody, confirmatory test Dilated Retinal Exam [facility] Start: 1991 Pneumococcal vaccination [facility] Start: 1990 Hemoglobin A1c/Hemoglobin.total in Blood HbA1C [facility] Anion gap measurement [facility] BUN/Creatinine ratio [facility] Calcium [Mass/volume ] in Serum or Plasma [facility] Carbon dioxide, tota l [Moles/volume] in Serum or Plasma [facility] Chloride [Moles/volu me] in Serum or Plasma [facility] Comprehensive metabo lic 2000 panel - Serum or Plasma [facility] Creatinine [Moles/vo lume] in Serum or Plasma [facility] Erythrocyte mean corpuscular volume determination [facility] Erythrocyte mean corpuscular volume determination [facility] Glucose [Mass/volume ] in Serum or Plasma [facility] Hematocrit [Volume Fraction] of Blood [facility] Hematocrit [Volume Fraction] of Blood [facility] Hemoglobin [Mass/vol ume] in Blood [facility] Hemoglobin [Mass/vol ume] in Blood [facility] Leukocytes [#/volume ] in Blood [facility] Leukocytes [#/volume ] in Blood [facility] Lipid 1996 panel - S layne or Plasma [facility] Mean corpuscular hemoglobin concentration determination [facility] Mean corpuscular hemoglobin concentration determination [facility] Mean corpuscular hemoglobin determination [facility] Mean corpuscular hemoglobin determination [facility] Measurement of renal function [facility] Neutrophil count [facility] Neutrophil percent differential count [facility] Patient Education [facility] Work Phone: Patient referral [facility] Work Phone: Platelets [#/volume] in Blood [facility] Platelets [#/volume] in Blood [facility] Potassium [Moles/vol ume] in Serum or Plasma [facility] QUANT TOX PANEL QUANT TOX PANEL Lab Routine Medication management 12/28/2024 10:58 AM EST [facility] Red blood cell count [facility] Red blood cell count [facility] Red cell distributio n width determination [facility] Red cell distributio n width determination [facility] Sodium [Moles/volume ] in Serum or Plasma [facility] SPECIMEN VALIDITY, URINE SPECIME N VALIDITY, URINE Lab Routine Medication management 12/28/2024 10:58 AM EST [facility] Thyroid stimulating hormone measurement [facility] Urea nitrogen [Mass/volume] in Serum or Plasma [facility] Urine microalbumin/creatinine ratio measurement [facility] End: 02-07-2025 US.doppler Extremity arteries - bilateral for physiologic artery study [facility] Lab Routine Diabetes 1.5, managed as type 2 (HCC) Diminished pulses in lower extremity 1 Occurrences starting 02/08/2024 until 02/07/2025 [facility] Work Phone: Comment on above: 1 Occurrences starting 02/08/2024 until 02/07/2025 Vitamin D, 25-hydrox y measurement [facility] Immunizations Immunization Date Immunization Notes Care Provider Delfina staley 08-07-2024 COVID-19 vaccine, ag e 12+ yr (PFIZER-[facility] [facility]) Austin Camarena APRN.HYDROELECTRIC SYSTEMS TECHNICIAN Work Phone: [facility] 10-15-2023 tetanus toxoid, redu fani diphtheria toxoid, and acellular pertussis vaccine, adsorbed Austin Camarena APRN.HYDROELECTRIC SYSTEMS TECHNICIAN Work Phone: [facility] Payers Date Payer Category Payer Unknown [id number] 2024 Medicare (Managed Care) [id number]. [id number] 2024 Medicare [id number] 2024 Medicaid [id number] 2024 Self-pay [id number] 2021 Medicaid [id number] 2021 Unknown [id number] 2019 Medicare [id number] 2019 Medicare [id number] 1985 Unknown [id number] 2.16.8 [id number] 1985 Unknown [id number] 2.16.8 40.1.786703.3.579.2.627 1985 Unknown [id number] 2.16.8 40.1.302331.3.579.2.627 1985 Unknown [id number] 2.16.8 40.1.957271.3.579.2.627 Unknown [id number] 2.16.8 40.1.855189.3.579.2.462 Unknown [id number] 2.16.8 40.1.992290.3.579.2.462 Unknown [id number] 2.16.8 40.1.055213.3.579.2.462 Unknown [id number] 2.16.8 40.1.954025.3.579.2.462 Unknown [id number] 2.16.8 40.1.970854.3.579.2.462 Unknown [id number] 2.16.8 40.1.046320.3.579.2.462 Unknown [id number] 2.16.8 40.1.980649.3.579.2.462 Unknown [id number] 2.16.8 40.1.620254.3.579.2.462 Unknown [id number] 2.16.8 40.1.689332.3.579.2.462 Unknown [id number] 2.16.8 40.1.476076.3.579.2.462 Unknown [id number] 2.16.8 40.1.495484.3.579.2.462 Unknown [id number] 2.16.8 40.1.263608.3.579.2.462 Unknown [id number] 2.16.8 40.1.444086.3.579.2.462 Unknown [id number] 2.16.8 40.1.726270.3.579.2.462 Unknown [id number] 2.16.8 40.1.315578.3.579.2.462 Unknown [id number] 2.16.8 40.1.983277.3.579.2.462 Unknown [id number] 2.16.8 40.1.797770.3.579.2.462 Unknown [id number] 2.16.8 40.1.695355.3.579.2.462 Unknown [id number] 2.16.8 40.1.577284.3.579.2.462 Unknown [id number] 2.16.8 40.1.661144.3.579.2.462 Social History Date Type Detail Facility Start: 10-15-2023 Tobacco smoking status PAIS Smokes tobacco daily [facility] Work Phone: Start: 02-04-1999 End: 02-05-2024 History of tobacco use Cigarette Smoker [facility] Work Phone: Start: 10-15-2023 End: 10-22-2023 Cigarettes smoked current (pack per day) - Reported 1.5 [facility] Start: 10-15-2023 End: 12-28-2024 Alcohol intake Ex-drinker (finding) [facility] Start: 03-26-2021 End: 10-15-2023 Social connection and isolation panel [facility] Do you belong to any clubs or organizations such as gnosticist groups, unions, fraternal or athletic groups, or school groups? No [facility] Are you now , , , , never or living with a partner? Living with partner [facility] How often to you hav e a drink containing alcohol? Never [facility] How many standard dr inks containing alcohol do you have on a typical day? Patient refused [facility] How hard is it for y ou to pay for the very basics like food, housing, medical care, and heating Somewhat hard [facility] Do you feel stress - tense, restless, nervous, or anxious, or unable to sleep at night because your mind is troubled all the time - these days [OSQ] Very much [facility] (I/We) worried varsha er (my/our) food would run out before (I/we) got money to buy more. Often true [facility] The food that (I/we) bought just didn't last, and (I/we) didn't have money to get more. Never true [facility] At any time in the p ast 12 months, were you homeless or living in long-term [including now]? Yes [facility] Start: 03-26-2021 Education 11 [facility] Start: 1985 Sex Assigned At Male [facility] Start: 03-25-2021 Gender identity Identifies as male gender (finding) [facility] Start: 06-09-2021 Sexual orientation Heterosexual (finding) [facility] Are you now , , , , never or living with a partner? [facility] Do you feel stress - tense, restless, nervous, or anxious, or unable to sleep at night because your mind is troubled all the time - these days [OSQ] Rather much [facility] Start: 01-25-2024 End: 01-27-2024 Tobacco smoking status NHIS Unknown if ever smoked [facility] Start: 02-28-2021 None [facility] Start: 02-28-2021 Alone [facility] Start: 05-06-2020 Cigarettes [facility] Start: 02-08-2024 End: 02-06-2025 Tobacco smoking status NHIS Ex-smoker [facility] Start: 02-04-1999 End: 02-05-2024 History of tobacco use Current smoker [facility] How hard is it for y ou to pay for the very basics like food, housing, medical care, and heating Not very hard [facility] Start: 02-06-2025 Sex Male (finding) [facility] Start: 06-12-2025 End: 06-13-2025 Tobacco smoking status PAIS Current some day smoker [facility] Medical Equipment Procedure Code Equipment Code Equipment Original Text Equipment Identifier Dates [id number], [id number], [id number], [id number] Start: 10-22-2023 End: 03-26-2025 Comment on above: [...] Assessment Result Facility 05-05-2024 Functional Status Independent [facility] 01-29-2024 Functional status Bedrest [facility] Work Phone: 01-26-2024 Functional Status Independent [facility] 01-26-2024 Functional Status ID band on, Call device within reach, Bed in low position, Wheels locked, Upper/Half-Length side-rails up, Visitor at bedside, Safety level maintained [facility] 06-10-2015 Are you deaf, or do you have serious difficulty hearing No 06/10/2015 4:22 PM Cinthia Reynoso MA No [facility] 06-10-2015 Are you blind, or do you have serious difficulty seeing, even when wearing glasses No 06/10/2015 4:22 PM Cinthia Reynoso MA No [facility] 06-10-2015 Do you have serious difficulty walking or climbing stairs No 06/10/2015 4:22 PM EDT Cinthia Malone MA No [facility] 06-10-2015 Do you have difficul ty dressing or bathing No 06/10/2015 4:22 PM EDT Cinthia Malone MA No [facility] 06-10-2015 Because of a physica l, mental, or emotional condition, do you have difficulty doing errands alone such as visiting a physician's office or shopping No 06/10/2015 4:22 PM EDT Cinthia Malone MA No [facility] Mental Status Date Assessment Result Facility 02-06-2025 Cognitive function Level Of Cons ciousness Awake;Alert;Appropriate [facility] Work Phone: 05-05-2024 Mental Status Orientation Oriented x 4 [facility] 05-05-2024 Mental Status [facility] 01-29-2024 Cognitive function Voice/Name [facility] Work Phone: 01-26-2024 Mental Status Orientation Oriented x 4 [facility] 01-26-2024 Mental Status [facility] 06-10-2015 Because of a physica l, mental, or emotional condition, do you have serious difficulty concentrating, remembering, or making decisions No 06/10/2015 4:22 PM EDT Cinthia Malone MA No [facility] Clinical Notes 10-15-2023 to 06-13-2025 Note Date & Type Note Facility 06-13-2025 Radiology Diagnostic study note [facility] Imaging Services [address] [place], [place] [address] Abdomen/Pelvis W IV Cont ONLY MR#: [id number] Acct: [id number] Name: WESTON GAMEZ Rep #: [id number] : 1985 M 39 From: Andrea Cai MD PCP: Austin Camarena, SENIOR INVESTMENT ANALYST-C Status: REG ER Study:Abdomen/Pelvis W IV Cont ONLY Date of E xam: 06/13/25 Exam# [id number] Ordering Dr: Rudolph Antonio MD PROCEDURE: ABDOMEN/PELVIS W IV CONT ONLY 06/13/2025 REASON FOR EXAM: ABDOMINAL PAIN TECHNIQUE: ABDOMEN/PELVIS W IV CONT ONLY Coronal and Sagittal reconstruction series were provided. CONTRAST: Isovue 300 VOLUME: 97 mL One or more dose reduction techniques were used (e.g., Automated exposure control, adjustment of the mA and/or kV according to patient size, use of iterative reconstruction technique. RADIATION DOSE SUMMARY: CTDlvol: 12 mGy DLP: 638 mGycm COMPARISON: 06/12/2025. FINDINGS: The lung bases are clear. No acute osseous abnormalities. The aorta is normal in caliber. The liver is unremarkable. Vicariously excreted contrast within the gallbladder. No surrounding inflammation. The pancreas, spleen, and pancreas are unremarkable. Symmetric enhancement of the bilateral kidneys. No hydroureteronephrosis. Concentric wall thickening of the urinary bladder. Normal caliber large and small bowel. No surrounding inflammatory changes. CT/Abdomen/Pelvis W IV Cont ONLY IMPRESSION: Concentric wall thickening of the urinary bladder. In a patient of this age this may represent cystitis. Correlate with urinalysis. Reading Location: [id number] CC: SENIOR INVESTMENT ANALYST-C Austin Camarena; Dr. Garima Antonio MD ~ Director Of Planning: Signed [facility] 06-13-2025 Discharge summary [facility] 06-12-2025 Radiology Diagnostic study note [facility] Imaging Services [address] [place] [id number] Abdomen/Pelvis W IV Cont ONLY MR#: [id number] Acct: [id number] Name: WESTON GAMEZ Rep #: [id number] : 1985 M 39 From: Priyanka Anguiano MD PCP: Austin Camarena, SENIOR INVESTMENT ANALYST-C Status: REG ER Study:Abdomen/Pelvis W IV Cont ONLY Date of E xam: 06/12/25 Exam# [id number] Ordering Dr: August Zimmerman DO PROCEDURE: ABDOMEN/PELVIS W IV CONT ONLY 06/12/2025 REASON FOR EXAM: ABDOMINAL PAIN TECHNIQUE: ABDOMEN/PELVIS W IV CONT ONLY Coronal and Sagittal reconstruction series were provided. CONTRAST: Isovue 370 VOLUME: 99 mL One or more dose reduction techniques were used (e.g., Automated exposure control, adjustment of the mA and/or kV according to patient size, use of iterative reconstruction technique. RADIATION DOSE SUMMARY: CTDlvol: 22 mGy DLP: 572 mGycm COMPARISON: 07/28/24 FINDINGS: Clear lung bases. Normal heart size. Unremarkable gallbladder. Upper abdominal solid organs show no acute findings. No hydronephrosis or ureteral stone. Possible bladder wall hypertrophy. Normal prostate. No retroperitoneal or pelvic adenopathy. No free air. Nonobstructed bowel. Normal appendix. No acute large bowel findings. No acute abdominal wall findings. CT/Abdomen/Pelvis W IV Cont ONLY IMPRESSION: No acute findings Reading Location: [place] [address] CC: JIE Camarena; Dr. August Carroll DO ~ Director Of Planning: Signed [facility] 06-12-2025 Discharge summary Note Date/Time June 13, 2025 2:02am [facility] Medical Records Department [address] [place] [address] Emergency Department Summary 06/12/25 MR#: [id number] Acct: [id number] Name: WESTON GAMEZ Rep #:[id number] : 1985 39 From: August denise DO PCP: JIE Geller Status:REG ER Location: ED ADDENDUM by Avtar Barbosa DO on 06/13/25 at 0202 The patient was signed out to me while awaiting response to IV fluids and medication as well as repeat laboratory studies. After receiving pain and nausea medication as well as IV fluid patient had complete resolution of symptoms. Repeat blood work showed normalization of his lactic acid level. Repeat VBG shows pH and bicarb be within normal range as well. On reevaluation he is resting comfortably and therefore with improvement of symptoms as well as laboratory findings I do not feel the need for further intervention or admissionto the hospital and he is otherwise safe for discharge 06/13/25 0202<Electronically signed by Avtar Barbosa DO> Cosigner Signature (if applicable): cc: SENIOR INVESTMENT ANALYST-Joanna Camarena ~* Signed HPI History of Present Illness Chief Complaint: Abd Pain Narrative Narrative: Chief complaint and HPI: 39-year-old female with DM, paraparesis, GERD, bipolar disorder presents for evaluation of abdominal pain with nausea and vomiting. Patient follows with Dr. Argueta. Patient states that he developed abdominal pain today. Associated symptoms are nausea and vomiting. He denies any fever, chills, shortness of breath, chest pain, diarrhea, constipation, dysuria. States it feels different than his gastroparesis pain. Last smoked marijuana 4days ago. Review of systems: See HPI Medications: As listed on the chart Allergies: As listed on the chart PFSH: Per chart Vital signs: As listed on the chart. Reviewed. Physical exam: Gen: A&O x3 Head: Normocephalic, atraumatic Eyes: No sclera icterus, conjunctiva clear ENT: Moist mucous membranes Neck: Trachea midline, No JVD CV: Tachycardic, regular rhythm, no murmurs, no peripheral edema Resp: Lungs CTA BL, no w/r/c GI: Abd soft, non-distended, mildly tender to palpation diffusely, no r/r/g : No CVA tenderness Musc: Full ROM, no deformity Skin: Warm, dry Neuro: Alert, oriented, grossly intact, sensation intact Psych: Cooperative, appropriate mood and affect [facility] Medical History Gastroparesis Former tobacco use Cannabis [...] #60 tab s 08/15/24 Unknown Rx release insulin lispro 100 unit/mL 50 unit (0.5 mL) continuous 11/22/24 Unknown Rx subcutaneous solution (Humalog subcutaneous infusion . continuous U-100 Insulin) #45 mL buspirone 10 mg tablet 10 mg PO BID 01/18/25 Unknow n History rosuvastatin 5 mg tablet 5 mg PO QHS 01/18/25 Unknown History metoclopramide HCl 5 mg tablet 5 mg PO Q8H PRN PRN kevyn sea and 02/22/25 Unknown Rx (Reglan) vomiting #90 tabs amitriptyline 50 mg tablet 50 mg PO QHS 04/19/25 Unkno wn History blood-glucose sensor (Dexcom G7 #3 ea 04/19/25 Unknown Rx Sensor device) dextroamphetamine-amphetamine 10 1 tab PO BID 04/19/25 Unknown History mg tablet insulin pump cart,auto,BT,G6/7 #10 ea 04/19/25 Unknown Rx (Omnipod 5 G6-G7 Pods (Gen 5) subcutaneous cartridge) ziprasidone HCl 20 mg capsule 20 mg PO BID 04/19/25 Un known History sucralfate 1 gram tablet 1 g PO Q6H #120 TABLETS 05/08 05/02 Unknown Rx dicyclomine 10 mg capsule 10 mg PO TID for abdominal p ain 06/01/25 Unknown Rx #90 caps Allergy/AdvReac Type Severity Reaction Status Date / Time No Known Allergies Allergy Verified 06/12/25 20:18 Family History Mother Diabetes Sister Diabetes Father CVA (cerebral vascular accident) Myocardial infarction Surgical History H/O esophagogastroduodenoscopy No history of previous surgery Social History household members: spouse Smoking Status: Current some day smoker tobacco type: cigarettes how long ago did patient quit smoking: Quit 05/2024, prior smoked ~ 1/2 ppd. second hand exposure: No alcohol intake: former substance use type: marijuana EXAM Physical Exam Const Vital Signs: 06/12/25 20:18 06/12/25 22:14 06/12/25 22:16 Temperature 96.9 F L 97.8 F Temperature Source Temporal Oral Pulse Rate 109 H 109 H 109 H Respiratory Rate 22 H 18 Blood Pressure 167/115 H 161/89 H 161/89 H Blood Pressure Mean 132 113 113 Pulse Ox 100 100 100 Oxygen Delivery Method Room Air Room Air Nasal Cannula MDM MDM MDM Narrative Medical decision making narrative: 39-year-old female with DM, paraparesis, GERD, bipolar disorder presents for evaluation of abdominal pain with nausea and vomiting. Patient follows with . Patient states that he developed abdominal pain today. Associated symptoms are nausea and vomiting. States this feels different than his gastroparesis. Differential diagnosis includes but is not limited to gastroparesis, gastritis, colitis, appendicitis, biliary disease, DKA, UTI, electrolyte abnormality, cyclic vomiting from marijuana abuse. NS bolus, morphine, Zofran ordered. Laboratory workup ordered including CT abdomen and pelvis. VBG without acidosis. CBC with mild leukocytosis of 15.9. No anemia. Platelets unremarkable. CMP shows dehydration without DONNA. Patient has an anion gap of 17. I do think that the anion gap is secondary to dehydration thanhis diabetes. His glucose is 284. Lactic 2.9. Another NS bolus ordered for total of 2 L and will repeat BMP and lactic acid. No hyperbilirubinemia. AST mildly elevated at 40 however this has been seen on previous labs. ALT unremarkable. Lipase unremarkable. Hydroxybutyrate mildly elevated at 0.6. UA positive for glucose and mild ketones. Negative for UTI. Again I do think thatpatient's laboratory findings are secondary to dehydration. Urine drug screen positive for opiates but patient did receive morphine. Cannabis. CT abdomen pelvis shows no acute intra-abdominal pathology. On reevaluation patient stateshis pain is gone. Suspect his abdominal pain was secondary to his nausea and vomiting from his gastroparesis. Patient still receiving his fluids. Will repeat lactic and BMP after his fluids. If patient has improvement in his labs,plan will be to discharge home and follow-up with primary care physician. Continue his own antiemetics. Patient signed out to oncoming physician who willawait repeat labs. Impression: 1. Nausea and vomiting with history of gastroparesis 2. Abdominal pain, resolved 3. Dehydration 4. Hyperglycemia with history of diabetes Lab Data Labs: Laboratory Results - last 24 hr 06/12/25 06/12/25 20:30 22:00 WBC 15.9 H RBC 4.80 Hgb 13.9 Hct 41.6 MCV 86.7 MCH 29.0 MCHC 33.4 RDW Std Deviation 41.5 RDW Coeff of [place] 13.2 Plt Count 321 MPV 11.1 Immature Gran % (Auto) 0.600 Neut % (Auto) 82.2 H Lymph % (Auto) 11.8 L [place] % (Auto) 4.6 Eos % (Auto) 0.3 Baso % (Auto) 0.5 Absolute Neuts (auto) 13.1 H Absolute Lymphs (auto) 1.87 Nucleated RBC % 0 Sodium 132 L Potassium 5.0 Chloride 95 L Carbon Dioxide 20.6 L Anion Gap 17 H BUN 26 H Creatinine 1.10 Estim Creat Clear Calc 81.36 Est GFR (MDRD) Non-Af 88 BUN/Creatinine Ratio 23.2 H Glucose 284 H Lactic Acid 2.9 H* Calcium 10.2 Total Bilirubin 0.30 Direct Bilirubin < 0.08 AST 40 H ALT 18 Alkaline Phosphatase 149 H Total Protein 9.4 H Albumin 4.7 Globulin 4.6 H Lipase 23 b-Hydroxybutyric mmol/L 0.6 H Urine Color Straw Urine Clarity Clear Urine pH 7.0 Ur Specific Pinson 1.010 Urine Protein 100 H Urine Glucose (UA) 1000 H Urine Ketones 50 H Urine Occult Blood 150 H Urine Nitrite Negative Urine Bilirubin Negative Urine Urobilinogen Normal Ur Leukocyte Esterase Negative Urine RBC 0-5 SEEN Urine WBC 0-5 SEEN Ur Squamous Epith Cells 0 SEEN Urine Bacteria 0 SEEN Hyaline Casts 0-5 SEEN Urine Mucus 0 SEEN Urine Opiates Screen PRESUMPTIVE POSITIVE U Buprenorphine Qual NEGATIVE Ur Oxycodone Screen NEGATIVE Urine Methadone Screen NEGATIVE Urine Fentanyl Screen NEGATIVE Ur Barbiturates Screen NEGATIVE Ur Phencyclidine Scrn NEGATIVE Ur Amphetamines Screen NEGATIVE U Benzodiazepines Scrn NEGATIVE Urine Cocaine Screen NEGATIVE U Cannabinoids Screen PRESUMPTIVE POSITIVE ABG Data ABG results: ABG 06/12/25 21:12 Specimen Type TERA Sample Site Not entered VBG pH 7.56 H VBG pO2 39 VBG HCO3 23 VBG Total CO2 24 VBG O2 Sat (Calc) 82 H VBG Base Excess 1 POC Mix VBG pCO2 Pt Tmp 26.0 L O2 Delivery Device Room Air Radiography Diagnostic Testing: Clinical Impression(s) from Imaging Studies Abdomen/Pelvis CT 06/12/25 20:49 IMPRESSION: No acute findings Reading Location: [place] [address] Discharge Plan Triage Chief Complaint: Abd Pain ED Provider: Klusty-Adin,August Dx/Rx/DC Orders Prescriptions: No Action gabapentin 100 mg capsule 200 mg PO TID (DME) Omnipod 5 G6 Intro Kit (Gen 5) Cartridge See Rx Instructions .Route Qty: 1 0RF Rx Instructions: As directed insulin lispro [Humalog U-100 Insulin] 100 unit/mL solution 50 unit continuous subcutaneous infusion .continuous Qty: 45 1RF Rx Instructions: Use subcutaneous insulin as you had been previously less otherwise instructed pantoprazole 40 mg tablet,delayed release (DR/EC) 40 mg PO BID Qty: 60 2RF buspirone 10 mg tablet 10 mg PO BID rosuvastatin 5 mg tablet 5 mg PO QHS dextroamphetamine-amphetamine 10 mg tablet 1 tab PO BID amitriptyline 50 mg tablet 50 mg PO QHS ziprasidone HCl 20 mg capsule 20 mg PO BID (DME) Omnipod 5 G6-G7 Pods (Gen 5) Cartridge See Rx Instructions .Route Qty: 10 5RF Rx Instructions: 1 pod q 72 hours (DME) Dexcom G7 Sensor Device See Rx Instructions .Route Qty: 3 5RF Rx Instructions: 1 sensor q 10 days (DME) pen needle, diabetic [BD Ultra-Fine Lizzeth Pen Needle] 32 gauge x 5/32 needle See Rx Instructions .Route Qty: 100 5RF Rx Instructions: 4x/day lisinopril 20 mg tablet 20 mg PO DAILY Qty: 30 6RF metoclopramide HCl [Reglan] 5 mg tablet 5 mg PO Q8H PRN PRN (Reason: nausea and vomiting) Qty: 90 2RF sucralfate 1 gram tablet 1 g PO Q6H Qty: 120 3RF dicyclomine 10 mg capsule 10 mg PO TID Qty: 90 0RF Primary Care Provider: Austin Camarena Referrals: Austin Camarena NP-C [Primary Care Provider] - Print Language: Senegalese What to do if you have Problems For any increased pain, shortness of breath, bleeding, nausea or vomiting, chestpain, or any unexpected problems, contact your Primary Care Provider. Call [facility] ([phone]) or report to the closest Emergency Room. Call 911 if necessary. 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 Labs faxed Lisseth Morel MA [facility]06-24-2025 Miscellaneous Notes* Telephone Encounter - Lisseth Morel MA - 05/01/2025 2:19 PM EDT Pt notified and verbalized understanding. Labs faxed Lisseth Morel MA * Telephone Encounter - Austin Camarena APRN.CNP - 05/01/2025 9:58 AM EDT Please let patient know his metabolic panel shows elevated potassium and BS. I have forwarded his labs to endocrinology for review. Repeat in 1 week, increase PO fluid intake. Please print and fax labs to Dr. Hernandez at [facility] for review. documented in this encounterWestern [facility]06-[facility]25 Telephone encounter Note * Telephone Encounter - Austin Camarena APRN.CNP - 05/01/2025 9:58 AM EDT Please let patient know his metabolic panel shows elevated potassium and BS. I have forwarded his labs to endocrinology for review. Repeat in 1 week, increase PO fluid intake. Please print and fax labs to Dr. Hernandez at [facility] for review. [facility]06-23-2025 NoteHNO ID: [id number] Author: AUSTIN CAMARENA APRN.CNP Service: ? Author [...] scheduled - ALBUMIN/CREATININE RATIO, URINE Austin Camarena APRN.[facility]06-23-2025 History of Present illness Narrative* Austin Camarena APRN.HYDROELECTRIC SYSTEMS TECHNICIAN - 04/30/2025 2:28 PM EDT Chief Complaint Patient presents with: Follow Up [...] scheduled - ALBUMIN/CREATININE RATIO, URINE Austin Camarena APRN.HYDROELECTRIC SYSTEMS TECHNICIAN documented in this encounterWestern Reserve Hospital06-18-2025 History of Present illness Narrative* Rufus Brower RPh - 04/25/2025 2:49 PM EDT Primary Care Pharmacy Panel Management This patient has been identified through Specialty Integration/Value-Based Operations Diabetes Registry Review by the primary care pharmacy team. After review, determined that the patient is not a candidate for pharmacy referral at this time dueto Type 1 or pump patient. (External fill hx indicates he uses Omnipod insulin pump) Rufus Brower RPh documented in this encounterWestern Reserve Hospital06-18-2025 NoteHNO ID: [id number] Author: RUFUS BROWER RPh Service: ? Author [...] he uses Omnipod insulin pump) Rufus Brower [facility]06-18-2025 NotePatient Outreach (PHMEWO) WESTON GAMEZ ([id number]) 1985 [facility] Date Time Provider Department 04/25/25 RUFUS BROWER During your visit today, we recorded the [...] he uses Omnipod insulin pump) Rufus Brower rajat Allergies As of Date: 04/25/2025 (No Known [...] 10/15/2023 Encounter Status:Closed by RUFUS BROWER on 04/25/25[facility] 04-19-2025 Evaluation note* Diagnosis Onset Date Resolution Status Admit Date High cholesterol chronic April 1:07pm Hypertension chronic April 19 025 1:07pm Insulin pump titration chronic 2024 1:07pm Presence of insulin pump chronic April 19, 2025 1:07pm Type 1 diabetes chronic April 1:07pm Bipolar disorder chronic April 8:44am Hypertension chronic May 03, 025 8:44am Presence of insulin pump chronic May 03, 2025 8:44am Type 1 diabetes chronic April 8:44am Gastroparesis acute May 17, 2025 2:45pm GERD (gastroesophageal reflu x disease) acute May 17, 2025 2:45pm H. pylori infection acute May 17, 2025 2:45pm [facility] Work Phone: 1(828) 637-104805-19-2025 Telephone encounter Note* Telephone Encounter - Sudheer [...] Anna LPN March 26, 2025 7:09 PM [facility]05-19-2025 Miscellaneous Notes* Telephone Encounter - Sudheer Anna [...] 26, 2025 7:09 PM documented in this encounterWestern [facility] Hospital04-29-2025 Telephone encounter Note * Telephone Encounter - [...] Greenwood LPN March 06, 2025 8:20 AM [facility]04-29-2025 Miscellaneous Notes* Telephone Encounter - Leticia Greenwood [...] 06, 2025 8:20 AM documented in this encounterWestern Reserve Hospital04-01-2025 Discharge summary [facility] Medical Records Department [address] [place] [address] Emergency Department Summary 02/06/25 MR#: [id number] Acct: [id number] Name: WESTON GAMEZ Rep #:[id number] : [...] quit smoking cigarettes about a month ago. [facility] Medical History Gastroparesis Former tobacco use Cannabis [...] follow-up with a dentist. He will continue xlhu-mek-xvqfsrq analgesics. Return instructions to the emergency department [...] fever, new or worsening symptoms. Print Language: Senegalese Disposition Disposition: Home, Self Care What to do if you have Problems For any increased pain, shortness of breath, bleeding, nausea or vomiting, chestpain, or any unexpected problems, contact your Primary Care Provider. Call [facility] ([phone]) or report tothe closest Emergency Room. Call 911 if necessary. 02/06/251821 Cosigner Signature (if applicable): CC: JIE Camarena ~ Signed [facility]04-01-2025 Discharge summary Author Ludin Sanderson [facility] Note Date/Time February 06, 2025 6:22 pm [facility] Medical Records Department [address] [facility] [place] [address] Emergency Department Summary 02/06/25 MR#: [id number] Acct: [id number] Name: WESTON GAMEZ Rep #:[id number] : [...] quit smoking cigarettes about a month ago. [facility] Medical History Gastroparesis Former tobacco use Cannabis [...] follow-up with a dentist. He will continue jzkp-xky-mggfdcy analgesics. Return instructions to the emergency department [...] fever, new or worsening symptoms. Print Language: Senegalese Disposition Disposition: Home, Self Care What to do if you have Problems For any increased pain, shortness of breath, bleeding, nausea or vomiting, chestpain, or any unexpected problems, contact your Primary Care Provider. Call [facility] ([phone]) or report to the closest Emergency Room. Call 911 if necessary. 02/06/25 1822 <Electronically signed by Ludin Sanderson MD> Cosigner Signature (if applicable): CC: SENIOR INVESTMENT ANALYSTJose EduardoC Austin Camarena ~ Signed [facility] Work Phone: 1(917) 390-798703-21-2025 Telephone encounter Note* Telephone Encounter - Elba Darnell MA - 01/26/2025 1:47 PM EDT Please see message from pt. I pended meter kit. Elba Darnell MA [facility]03-21-2025 Miscellaneous Notes* Telephone Encounter - Elba Darnell MA - 01/26/2025 1:47 PM EDT Please see message from pt. I pended meter kit. Elba Darnell MA documented in this encounterWestern Reserve Hospital03-20-2025 NoteHNO ID: [id number] Author: AUSTIN CAMARENA APRN.HYDROELECTRIC SYSTEMS TECHNICIAN Service: ? Author Type: Nurse Practitioner Type: Progress Notes Filed: 01/25/2025 15:59 Note Text: Chief Complaint Patient presents with: Medication Follow-up HPI Weston Gamez is a 39 year old male who presents here today for Above Complaints.. Patient presents for medication follow up. Patient reports he stopped strattera and is seeing psych who placed him on buspar, adderall. Patient seeing psych in [facility]. Past medical history, appointments, medications, allergies reviewed. [...] up for other chronic conditions. Austin Camarena APRN.[facility]SC[facility] History of Present illness Narrative* Austin Camarena APRN.TESS - 01/25/2025 3:40 PM EDT Chief Complaint Patient presents with: Medication Follow-up HPI Weston Gamez is a 39 year old male who presents here today for Above Complaints.. Patient presents for medication follow up. Patient reports he stopped strattera and is seeing psychwho placed him on buspar, adderall. [place] [facility]. Past medical history, appointments, medications, allergies reviewed. [...] up for other chronic conditions. Austin Camarena APRN.HYDROELECTRIC SYSTEMS TECHNICIAN documented in this encounterWestern Reserve Hospital03-13-2025 Evaluation note* Diagnosis Onset Date Resolution Status Admit Date Elevated alkaline phosphatas e level chronic January 18, 2025 1:02pm Elevated AST (SGOT) chronic January 18, 2025 1:02pm High cholesterol chronic January 182024 1:02pm Hypertension chronic January 18, 2025 1:02pm Insulin pump titration chronic [facility] 2024 1:02pm Presence of insulin pump chronic January 18, 2025 1:02pm Type 1 diabetes chronic January 1:02pm [facility] Work Phone: 1(386) 441-756503-13-2025 Evaluation note* Diagnosis Onset Date Resolution Status Admit Date Elevated alkaline phosphatas e level chronic January 18, 2025 1:02pm Elevated AST (SGOT) chronic January 18, 2025 1:02pm High cholesterol chronic January 182024 1:02pm Hypertension chronic January 18, 2025 1:02pm Insulin pump titration chronic [facility] 2024 1:02pm Presence of insulin pump chronic January 18, 2025 1:02pm Type 1 diabetes chronic January 1:02pm High cholesterol chronic April 1:07pm Hypertension chronic April 19, 2 025 1:07pm Insulin pump titration chronic 2024 1:07pm Presence of insulin pump chronic April 19, 2025 1:07pm Type 1 diabetes chronic April 1:07pm [facility] Work Phone: 1(825) 874-205503-13-2025 Evaluation note* Diagnosis Onset Date Resolution Status Admit Date Elevated alkaline phosphatas e level chronic January 18, 2025 1:02pm Elevated AST (SGOT) chronic January 18, 2025 1:02pm High cholesterol chronic January 182024 1:02pm Hypertension chronic January 18, 2025 1:02pm Insulin pump titration chronic [facility] 2024 1:02pm Presence of insulin pump chronic January 18, 2025 1:02pm Type 1 diabetes chronic January 1:02pm High cholesterol chronic April 1:07pm Hypertension chronic April 19 025 1:07pm Insulin pump titration chronic Ju 2024 1:07pm Presence of insulin pump chronic April 19, 2025 1:07pm Type 1 diabetes chronic April 1:07pm Bipolar disorder chronic April 8:44am Hypertension chronic May 03 8:44am Presence of insulin pump chronic May 03, 2025 8:44am Type 1 diabetes chronic April 8:44am [facility] Work Phone: 1(846) 356-661703-03-2025 Telephone encounter Note* Telephone Encounter - Oksana [...] Naidu LPN January 08, 2025 12:30 PM [facility] [facility] Miscellaneous Notes* Telephone Encounter - Oksana Naidu [...] 08, 2025 12:30 PM documented in this encounterWestern [facility]03-[facility]25 Progress note* Result Encounter Note - Elba Darnell MA - 01/08/2025 8:49 AM EST Call to pt and notified him of results and recommendations below from Provider. Pt verbalized understanding. Elba Darnell MA [facility]03-03-2025 Miscellaneous Notes* Result Encounter Note - Elba [...] a prescription for replacement. documented in this encounterWestern Reserve Hospital03-03-2025 Telephone encounter Note * Telephone Encounter - Austin Camarena APRN.HYDROELECTRIC SYSTEMS TECHNICIAN - 01/08/2025 8:45 AM EST Please let patient know his vitamin d is low. I have sent a prescription for replacement. [facility]02-20-2025 NoteHNO ID: [id number] Author: PRAKASH FONTANA OD Service: ? Author Type: EMERGENCY DEPARTMENT Type: Progress Notes Filed: 12/28/2024 15:45 Note Text: (E11.9) Type 2 diabetes mellitus without retinopathy (HCC) (primary encounter diagnosis) (H52.13) Myopia, bilateral (H25.13) Nuclear sclerosis of both eyes No previous retinopathy Stable rx today compared to Prakash Fontana OD December 28, 2024 3:44 [facility]02-20-2025 History of Present illness Narrative* Prakash Fontana OD - 12/28/2024 3:44 PM EST (E11.9) Type 2 diabetes mellitus without retinopathy (HCC) (primary encounter diagnosis) (H52.13) Myopia, bilateral (H25.13) Nuclear sclerosis of both eyes No previous retinopathy Stable rx today compared to Prakash Fontana OD December 28, 2024 3:44 PM documented in this encounterWestern Reserve Hospital02-20-2025 NoteHNO ID: [id number] Author: AUSTIN CAMARENA APRN.HYDROELECTRIC SYSTEMS TECHNICIAN Service: ? Author Type: Nurse Practitioner Type: [...] daily once tox screen results. Austin Camarena APRN.[facility]02-20-2025 History of Present illness Narrative* Austin Camarena APRN.[facility] - 12/28/2024 10:06 AM EST Chief Complaint [...] daily once tox screen results. Austin Camarena APRN.HYDROELECTRIC SYSTEMS TECHNICIAN documented in this encounterWestern Reserve Hospital02-03-2025 NoteHNO ID: [id number] Author: AUSTIN CAMARENA APRN.CNP Service: ? Author [...] - LISINOPRIL 20 MG TABLET Austin Camarena [facility] History of Present illness Narrative* Austin Camarena APRN.HYDROELECTRIC SYSTEMS TECHNICIAN - 12/11/2024 9:09 AM EST Chief Complaint [...] - LISINOPRIL 20 MG TABLET Austin Camarena APRN.HYDROELECTRIC SYSTEMS TECHNICIAN documented in this encounterWestern Reserve Hospital01-20-2025 Instructions* Patient Instructions* Austin Camarena APRN.CNP - 11/27/2024 3:46 PM EST Be PCSA - Insurance Therapy/Counseling [facility] [address] [place] [address] [facility] [address] [place] [address] [employer] [address] [address] [facility] [address], [address] [place] [address] [facility] O[facility] [address] [place] [address] [facility] [address] [address] [employer] [address] [place] [address] [place] [address] documented in this encounterWestern Reserve Hospital01-20-2025 NoteHNO ID: [id number] Author: AUSTIN CAMARENA APRN.HYDROELECTRIC SYSTEMS TECHNICIAN Service: ? Author Type: Nurse Practitioner Type: [...] - ATOMOXETINE 10 MG CAPSULE Austin Camarena APRN.[facility]01-[facility]-2025 History of Present illness Narrative* Austin Camarena APRN.TESS - 11/27/2024 3:37 PM EST Chief Complaint [...] - ATOMOXETINE 10 MG CAPSULE Austin Camarena APRN.HYDROELECTRIC SYSTEMS TECHNICIAN documented in this encounterWestern Reserve Hospital01-17-2025 Telephone encounter Note * Telephone Encounter - Lisseth Morel MA - 11/24/2024 3:13 PM EST Pt notified and verbalized understanding Lisseth Morel MA [facility]01-17-2025 Miscellaneous Notes* Telephone Encounter - Lisseth Morel MA - 11/24/2024 3:13 PM EST Pt notified and verbalized understanding Lisseth Morel MA * Telephone Encounter - Austin Camarena APRN.CNP - 11/24/2024 10:48 AM EST Please let patient know his hgba1c is 10.6. Patient should follow up with endocrinology. His other labs are stable. documented in this encounterWestern Reserve Hospital01-17-2025 Telephone encounter Note * Telephone Encounter - Austin Camarena APRN.CNP - 11/24/2024 10:48 AM EST Please let patient know his hgba1c is 10.6. Patient should follow up with endocrinology. His other labs are stable. [facility]01-15-2025 Evaluation note* Diagnosis Onset Date Resolution Status Admit Date Elevated alkaline phosphatas e level chronic November 22 11:43am Elevated AST (SGOT) chronic Janua ry 2024 11:43am Hypertension chronic November 11:43am Insulin pump titration chronic Ja nuary 2024 11:43am Presence of insulin pump chronic November 22, 2024 11:43am Type 1 diabetes chronic November 082024 11:43am Elevated alkaline phosphatas e level chronic January 18, 2025 1:02pm Elevated AST (SGOT) chronic January 18, 2025 1:02pm High cholesterol chronic January 182024 1:02pm Hypertension chronic January 18, 2025 1:02pm Insulin pump titration chronic [facility] 2024 1:02pm Presence of insulin pump chronic January 18, 2025 1:02pm Type 1 diabetes chronic January 1:02pm [facility] Work Phone: 1(302) 674-722212-31-2024 NotePatient Outreach (INTMMN) WESTON GAMEZ ([id number]) 1985 M T Date Time Provider Department 11/07/24 AUSTIN CAMARENA During your visit today, we recorded the following information about you: Allergies As of Date: 11/07/2024 (No Known Allergies) Date Reviewed: 10/27/2024 Reviewed by: Prakash Fontana OD - Fully Assessed Visit Diagnosis:Diabetes 1.5, 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 Author Type: EMERGENCY DEPARTMENT Type: Progress Notes Filed: 10/27/2024 11:02 Note Text: 1. Type 2 diabetes mellitus without retinopathy (HCC) Risk of diabetic changes and vision loss can be minimized by tight control of blood sugar, blood pressure, and cholesterol levels. Educated patient to continue care with primary care doctor and/or production broaching machine operator to maintain optimum levels as they are [...] 2 months for refraction check Prakash Fontana, ZENA October 27, 2024 10:59 [facility]12-20-2024 History of Present illness Narrative* Prakash Fontana, OD - 10/27/2024 10:59 AM EST 1. Type 2 diabetes mellitus without retinopathy (HCC) Risk of diabetic changes and vision loss can be minimized by tight control of blood sugar, blood pressure, and cholesterol levels. Educated patient to continue care with primary care doctor and/or production broaching machine operator to maintain optimum levels as they are [...] 27, 2024 10:59 AM documented in this encounterWestern Reserve Hospital12-11-2024 NoteHNO ID: [id number] Author: MARY LONGORIA APRN.CNP Service: ? Author Type: Nurse Practitioner [...] evaluation and treatment. He will go to [facility]. Mary Longoria APRN.CNPCleveland [facility]12-11-2024 History of Present illness Narrative* Mary Longoria APRN.CNP - 10/18/2024 1:24 PM EST Weston Gamez is a 39 year old male who presents to [facility] for abdominal pain, vomiting, fever. Person with him states he has had fever of 102 degrees F and can't quit vomiting. He is crying in the triage room. He is directed to the ED for further evaluation and treatment. He will go to [facility]. Mary Longoria APRN.CNP documented in this encounterWestern Reserve Hospital09-30-2024 NoteHNO ID: [id number] Author: AUSTIN CAMARENA APRN.CNP Service: ? Author [...] Anxiety Screening Never done Covid-19 Vaccine(3 - season) due on 07/09/2024 Influenza Vaccine(1) due [...] with Dr. Argueta as scheduled Austin Camarena APRN.[facility]09-30-2024 History of Present illness Narrative* Austin Camarena APRN.HYDROELECTRIC SYSTEMS TECHNICIAN - 08/07/2024 8:57 AM EDT Chief Complaint [...] done Anxiety Screening Never done Covid-19 Vaccine( - ) due on 07/09/2024 Influenza Vaccine(1) due on [...] with Dr. Argueta as scheduled Austin Camarena APRN.HYDROELECTRIC SYSTEMS TECHNICIAN documented in this encounterWestern Reserve Hospital09-24-2024 [facility] Medical Records Department [address] [place] [address] Discharge Summary 08/01/24 1352 MR#: [id number] Acct: [id number] Name: WESTON GAMEZ Rep #: [id number] : 1985 38 From: Victoria Davey DO PCP: JIE Geller Status:ADM KINSEY Location: [place] [address] Providers Date of Admission: 07/30/24 Date of [...] #30 tabs 05/01/24 blood-glucose meter,continuous (Dexcom G7 Upper And Bottom Lacer Hand) #1 ea 05/04/24 gabapentin 100 mg capsule [...] Hospital Course: Mr. Gamez is a 38-year-old -Q[place] male with a history of schizoaffective disorder, diabetes, and gastroparesis with cyclic vomiting syndrome due to previous TSH use who presented to the emergency department at [facility] on 07/1012/28/2023 with a chief complaint of [...] well. We did wri (more content not included)...[facility]07-09-2024 Note* Addendum Note - Austin Camarena APRN.CNP - 05/16/2024 2:13 PM EDTAddended by: AUSTIN CAMARENA on: 05/16/2024 02:13 PM Modules accepted: Orders [facility]07-09-2024 Miscellaneous Notes* Addendum Note - Austin Camarena APRN.CNP - 05/16/2024 2:13 PM EDTAddended by: AUSTIN CAMARENA on: 05/16/2024 02:13 PM Modules accepted: Orders documented in this encounterWestern Reserve Hospital07-09-2024 History of Present illness Narrative* Austin Camarena APRN.CNP - 05/16/2024 1:45 PM EDT Chief Complaint Patient presents with: ER F/U HPI Weston Gamez is a 38 year old male who presents here today for Above Complaints.. Patient presents for ER follow up. Patient was seen in [facility] for continued lower abdominal pain and [...] Vaccine(3 - 2022- season) due on 07/09/2023 Behavioral Health Screening Never [...] - ROSUVASTATIN 5 MG TABLET Austin Camarena APRN.HYDROELECTRIC SYSTEMS TECHNICIAN documented in this encounterWestern Reserve Hospital06-28-2024 Hospital Discharge instructions Patient Education 05/05/2024 15:24:55 [...] you feel better and your symptoms ease. 7942-4716 The [employer]. [address] [place] [address], [place] [address]. All rights reserved. This information is not intended as a substitute for professional medical care. Always follow yourhealthcare professional's instructions. Follow Up Care 05/05/2024 13:23:55 With:[facility] Address: [address] [place] [phone] When:2-4 days [facility] Vamsi 06-28-2024 Note Discharge Instructions Thank you for allowing [facility] to assist you with your healthcare needs. The following is importantdischarge information regarding your hospital visit. Diagnosis from Today's Visit Nausea What to Do Next Instructions from Your Care Team No qualifying data available. Post Acute Orders No qualifying data available. You Need to Schedule the Following Appointments Follow Up with [facility] When:Within 2-4 days Where:[address] [place] [phone] Allergies NKA Medications Please ask your primary [...] or retail pharmacies. Medication Leaflets ondansetron (oral) (viraj FELICIANO se ghazala) What is the most important information I [...] may report side effects to FDA at 0-011-QXQ-9274. What other drugs will affect ondansetron? Ondansetron [...] interact with ondansetron. This includes prescription and hpxu-pfd-guxbyqo medicines, vitamins, and herbal products. Give a [...] to ensure that the information provided by crossvertise. ('Multum') is accurate, up-to-date, and complete, but no guarantee is made to that effect. Drug information contained herein may be time sensitive. [employer] and [employer] information has been compiled for use by healthcare practitioners and consumers in the [place] and therefore [employer] does not warrant that uses outside of the [place] are appropriate, unless specifically indicated otherwise. [employer] drug information does not endorse drugs, diagnose patients or recommend therapy. [employer] drug information isan informational resource designed to [...] effective or appropriate for any given patient. [facility] does not assume any responsibility for any aspect of healthcare administered with the aid of information [facility] provides. The information contained herein is not intended to cover all possible uses, directions, precautions, warnings, drug interactions, allergic reactions, or adverse effects. If you have questions about the drugs you are taking, check with your doctor, nurse or pharmacist. Copyright 8949-0137 [facility] CenterWowoExtreme Reach. Version: 16.. Revision Date: 06/10/2023. Education Materials [...] you feel better and your symptoms ease. 7413-1777 The [employer]. [address] [place] [address], [place] [address]. All rights reserved. This information is not intended as a substitute for professional medical care. Always follow yourhealthcare professional's instructions. Additional Information VACCINATE! IT SAVES LIVES! Members of the community who have not yet received the COVID-19 vaccine and would like to receive it can visit one of [facility] vaccine clinics. There are many vaccine clinic locations within the [facility]. For locations and available times, please visit www.gettheshot.coronavirus.[place].gov/. It is important to note that some COVID mobile vaccine clinics are held outdoors and may be canceled in rainy or stormy conditions. To learn more about pediatric vaccinations (ages 5-11), we invite you to visit the [facility] webpage. https://www.akLeap Commerces.org/pages/1063-Pdcac-Pswojbklkrt-Atjktbtqoj-Lpyvl-Hde stions.htmlTo learn more about the COVID-19 vaccine, we invite you to visit the CDC website for a list of frequently asked questions. https://www.cdc.gov/coronavirus/2019-ncov/vaccines/faq.html [facility] Patient Portal Access Instructions: Stay connected with your healthcare team and access your personal medical information anytime with the [facility] Patient Portal. If you would like a full copy of your medical records please contact the [facility] Medical Records Department Wednesday through Wednesday between 8a.m. and 4:30p.m. Please follow the directions below to access the portal: 1.Access the email account you provided upon registration to the hospital.2.Look for an invitation email from [facility].3.Open the email and access the invitation link: Accept Invitation to [facility]4.Fill in the required orona to create your account. Sign into www.Menara Networks with your username and password that you [...] you will allow to register on the [employer] Patient Portal for access to your information. You can also access the [facility] Patient Portal on the [employer] tita. Simply click on Health Records under myWebRoom and then click on the ClearApp logo. HOW TO SAFELY DISPOSE OF PRESCRIPTION [...] Call your local pharmacy or go to http://IDSS [employer].SEM[employer] Engineering/3A6Jk4g to find one close to you.3.Make use of household items: Use cat litter or old coffee grounds to dispose medications if other options arenot available. Mix your drugs with these household products, seal them in an airtight container andthrow it into the garbage. Call [facility]: [phone] to be sure your drugs can be [...] aware that I should contact my doctor. Patient/Securities Adviser Signature: Date/Time: Relationship to Patient: Witness Name/Signature: Date/Time: [facility]06-28-2024 Note Discharge Instructions Thank you for allowing [facility] to assist you with your healthcare needs. The following is importantdischarge information regarding your hospital visit. Diagnosis from Today's Visit Nausea What to Do Next Instructions from Your Care Team No qualifying data available. Post Acute Orders No qualifying data available. You Need to Schedule the Following Appointments [facility] Up with [facility] When:Within 2-4 days Where:[address] [place] [phone] Allergies NKA Medications Please ask your primary [...] pharmacies. Medication Leaflets ondansetron (oral) (on JODIE se ghazala) What is the most important information I [...] may report side effects to FDA at 3-463-HSR-7847. What other drugs will affect ondansetron? Ondansetron [...] interact with ondansetron. This includes prescription and vrim-vjz-akebcjv medicines, vitamins, and herbal products. Give a [...] to ensure that the information provided by crossvertise. ('Multum') is accurate, up-to-date, and complete, but no guarantee is made to that effect. Drug information contained herein may be time sensitive. Stick and Play information has been compiled for use by healthcare practitioners and consumers in the [place] and therefore [employer] and Play does not warrant that uses outside of the [place] are appropriate, unless specifically indicated otherwise. StraighterLines drug information does not endorse drugs, diagnose patients or recommend therapy. Stra[employer]Lines drug information isan informational resource designed to [...] effective or appropriate for any given patient. [employer] does not assume any responsibility for any aspect of healthcare administered with the aid of information [employer] and Play provides. The information contained herein is not intended to cover all possible uses, directions, precautions, warnings, drug interactions, allergic reactions, or adverse effects. If you have questions about the drugs you are taking, check with your doctor, nurse or pharmacist. Copyright 1901-3757 crossvertise. Version: 16.. Revision Date: 06/10/2023. Education Materials [...] you feel better and your symptoms ease. 8258-9400 The [employer]. [address] [place] [address]. All rights reserved. This information is not intended as a substitute for professional medical care. Always follow yourhealthcare professional's instructions. Additional Information VACCINATE! IT SAVES LIVES! Members of the community who have not yet received the COVID-19 vaccine and would like to receive it can visit one of [facility] vaccine clinics. There are many vaccine clinic locations within the [facility]. For locations and available times, please visit www.gettheshot.coronavirus.[place].gov/. It is important to note that some COVID mobile vaccine clinics are held outdoors and may be canceled in rainy or stormy conditions. To learn more about pediatric vaccinations (ages 5-11), we invite you to visit the [facility] webpage. https://www.[facility].org/pages/2536-Hozyc-Aevbdbzusfi-Nmggaxkfum-Ykcgi-Rhi stions.htmlTo learn more about the COVID-19 vaccine, we invite you to visit the CDC website for a list of frequently asked questions. https://www.cdc.gov/coronavirus/2019-ncov/vaccines/faq.html [facility] Access Instructions: Stay connected with your healthcare team and access your personal medical information anytime with the [facility] Patient Portal. If you would like a full copy of your medical records please contact the [facility] Medical Records Department Wednesday through Wednesday between 8a.m. and 4:30p.m. Please follow the directions below to access the portal: 1.Access the email account you provided upon registration to the [facility].2.Look for an invitation email from [facility].3.Open the email and access the invitation link: Accept Invitation to [facility]4.Fill in the required orona to create your account. Sign into www.Menara Networks with your username and password that you [...] you will allow to register on the [facility] Patient Portal for access to your information. You can also access the [facility] Patient Portal on the Zyante. Simply click on Health Records under myWebRoom and then click on the [facility] logo. [...] Call your local pharmacy or go to http://IDSS [employer].SEMCO Engineering/8Y8Iu9k to find one close to you.3.Make use of household items: Use cat litter or old coffee grounds to dispose medications if other options arenot available. Mix your drugs with these household products, seal them in an airtight container andthrow it into the garbage. Call [facility]: [phone] to be sure your drugs can be [...] aware that I should contact my doctor. Patient/Securities Adviser Signature: Date/Time: Relationship to Patient: Witness Name/Signature: Date/Time: [facility]06-25-2024 Telephone encounter Note* Telephone Encounter - Emelia Sanchez - 05/02/2024 12:22 PM EDT Patient has called back and scheduled a follow up with Austin on 05/16/2024+20 minute follow up. Ifthis is to be a yearly physical please advise so we can call back to reschedule to 40 minutes. Patient advised he sees an production broaching machine operator [place] at [facility]. [facility]06-25-2024 Miscellaneous Notes* Telephone Encounter - Emelia Sanchez - 05/02/2024 12:22 PM EDT Patient has called back and scheduled a follow up with Austin on 05/16/2024+20 minute follow up. Ifthis is to be a yearly physical please advise so we can call back to reschedule to 40 minutes. Patient advised he sees an production broaching machine operator [place] at [facility]. * Telephone Encounter - Martina Still OCCA [...] 01, 2024 9:33 AM documented in this encounterWestern Reserve Hospital06-25-2024 Telephone encounter Note * Telephone Encounter - Martina Still OCCA - 05/02/2024 8:45 AM EDT TC no answer. Left VM to return call. BO Ny [facility]06-24-2024 Telephone encounter Note* Telephone Encounter - Lupillo [...] 30 days. Authorizing Provider: LUPILLO THAYER MD [facility]06-24-2024 Telephone encounter Note* Telephone Encounter - Lupillo [...] mouth four times daily. Lupillo Thayer MD [facility]06-24-2024 Miscellaneous Notes* Telephone Encounter - Lupillo Thayer [...] hospital visit from 01/2024. documented in this encounterWestern Reserve Hospital06-24-2024 Telephone encounter Note * Telephone Encounter - Morelia Daniel MA - 05/01/2024 4:23 PM EDT Sent a my chart message early today to the patient. I did note in the most recent endocrinology record. Metoclopramide 5 mg every 6 hours Protonix 40 mg BID. Morelia Daniel MA [facility]06-24-2024 Telephone encounter Note* Telephone Encounter - Lupillo Thayer MD - 05/01/2024 4:16 PM EDT Let patient know since we did not proscribe this meds and Austin says to continue them I need thestrength he is on and how often he takes them. [facility]06-24-2024 Telephone encounter Note* Telephone Encounter - Morelia Daniel MA - 05/01/2024 12:39 PM EDT I reviewed the chart and it looks like patient was put on this medication from an hospital visit from 01/2024. [facility]06-24-[facility] Telephone encounter Note* Telephone Encounter - Martina [...] BO Ny May 01, 2024 9:33 AM [facility]05-22-2024 Miscellaneous Notes* Telephone Encounter - Camila Beckham MA - 03/29/2024 11:18 AM EDT Left message for patient to call back and speak to triange Please verify if patient is doing one or 2 insulin injection? Med list on file shows one but dispense report shows lantus and lispro? Pen needles pended for 4 injections a day Camlia Beckham MA documented in this encounterWestern [facility]05-[facility]24 Telephone encounter Note * Telephone Encounter - Camila Beckham MA - 03/29/2024 11:18 AM EDT Left message for patient to call back and speak to triange Please verify if patient is doing one or 2 insulin injection? Med list on file shows one but dispense report shows lantus and lispro? Pen needles pended for 4 injections a day Camila Beckham MA [facility]04-02-[facility] History of Present illness Narrative* Autumn Pride [...] 12/28/2023 11.0 10/15/2023 13.2 PCP: Austin Camarena APRN.HYDROELECTRIC SYSTEMS TECHNICIAN PAST MEDICAL HISTORY Diagnosis Date Bipolar 1 [...] Objective: Patient presents to clinic ambulating in [facility] Constitutional: Pt is a well developed [...] (E13.9) Diabetes 1.5, managed as type 2 ([facility]) (R09.89) Diminished pulses in lower extremity Plan: [...] numbness around the callus. documented in this encounterWestern Reserve Hospital04-02-2024 Instructions* Patient Instructions* Eder Li - 02/08/2024 [...] (or decreased sensation in your feet) a drophammer operator should always cut your toenails. Be Careful [...] Go to your health care provider or drophammer operator to treat these conditions. Powerstep Original Full length. Can purchase at [facility] and boots,shoes and more here in [place], [employer] in [place] or [place]. Also can find in [employer] in [facility]. Powersteps can also be purchased online, starting around $45.00 If you have a metatarsal or dancer pad for your feet apply the pad directly to the insole so you can interchange between your shoes. Find a shoe with a removable insole and take this out and replace with your powerstep insole. Always bring Cartilixteps with you when shopping for shoes so that you can make sure that everything fits well together documented in this encounterWestern Reserve Hospital03-22-2024 Progress note Author Shantell Alcaraz [facility] January 28, 2024 3:40pm Note Date/Time January 28, 2024 1:2 1pm [facility] Medical Records Department [address] [place] [address] Progress Note 01/28/24 1320 MR#: [id number] Acct: [id number] Name: WESTON GAMEZ Rep #:[id number] : 1985 38 From: Shantell Alcaraz MD PCP: ONEL GellerC Status:ADM IN Location: MS3 EV090-5 Subjective Subjective Patient seen and examined. He [...] / 450 900 / 900 Balance 2089 / 2089 -90 / -90 Lab / Micro [...] Signed: Nicola Her MD at 13:10 EDT Reading Location ID and State: [address] [place] [address] , Service support , Physical Exam Const alert and oriented [...] prophylaxis: Lovenox Charges/Coding Visit Charges Inpatient E&M: 62816 Subs Hosp L2 01/28/24 1218 <Electronically signed by Shantell Alcaraz MD> Shantell Alcaraz MD Cosigner Signature (if applicable): CC: ~ Signed [facility] Work Phone: [phone] Procedure [facility] 01-28-2024 Procedure [facility]03-22-2024 Discharge summary Author Connie Hermosillo [facility] January 27, 2024 10:49pm Note Date/Time January 27, 2024 12: 06pm [facility] Medical Records Department [address] [place] [address] Emergency Department Summary 01/27/24 MR#: [id number] Acct: [id number] Name: WESTON GAMEZ Rep #:[id number] : 1985 38 From: Connie Hermosillo MD PCP: Austin Camarena, SENIOR INVESTMENT ANALYST-C Status:ADM IN Location: UT3 QD508-9 HPI <RIGOBERTO Ward - Last Filed: 01/27/24 [...] in a week. He then went to [place] [facility] yesterday where they performed another CT [...] abdominal surgeries, fevers, chills, hematemesis, and diarrhea. PFSH <RIGOBERTO Ward - Last Filed: 01/27/24 15:29> COUNT INCLUDES THE [facility] Medical History Bipolar 1 disorder Diabetes mellitus [...] Oxygen Delivery Method Room Air Room Air [facility] <RIGOBERTO Ward - Last Filed: 01/27/24 15:29> [facility] Narrative Medical decision making narrative: Patient presenting [...] % (Auto) 65.5 Lymph % (Auto) 26.1 Yuma % (Auto) 7.0 Eos % (Auto) 0.5 [...] Clarity Clear Urine pH 5.0 Ur Specific Pinson 1.025 Urine Protein 30 H Urine Glucose (UA) 1000 H Urine Ketones 150 A* Urine Occult Blood 50 H Urine Nitrite Negative Urine Bilirubin Negative Urine Urobilinogen Normal Ur Leukocyte Esterase Negative Urine RBC 5-10 SEEN Urine WBC 0 SEEN Ur Squamous Epith Cells 0 SEEN Urine Bacteria 0 SEEN Urine Mucus 0 SEEN <Dr. Connie Hermosillo MD - Last Filed: 01/27/24 15:19> [facility] Lab Data Labs: Laboratory Results - last 24 hr 01/27/24 12:15 WBC 12.9 H RBC 5.32 Hgb 14.9 Hct 44.8 MCV 84.2 MCH 28.0 MCHC 33.3 RDW Std Deviation 40.4 RDW Coeff of [place] 13.2 Plt Count 375 MPV 9.8 Immature Gran % (Auto) 0.400 Neut % (Auto) 65.5 Lymph % (Auto) 26.1 Yuma % (Auto) 7.0 Eos % (Auto) 0.5 [...] Clarity Clear Urine pH 5.0 Ur Specific Pinson 1.025 Urine Protein 30 H Urine Glucose [...] he was inadvertently discharged. Patient went to [place] ER yesterday where he got IVfluids and [...] sign of infection. Patient CT scan from [facility] 2 days ago as well as [place] yesterday is reviewed. Right upper quadrant ultrasound [...] Care Provider: Austin Camarena Referrals: Austin Camarena, SENIOR INVESTMENT ANALYST-C [Primary Care Provider] - Disposition Disposition: Acute Care [facility] What to do if you have Problems For any increased pain, shortness of breath, bleeding, nausea or vomiting, chestpain, or any unexpected problems, contact your Primary Care Provider. Call Room [address] [employer] Registry ([phone]) or report to the closest Emergency Room. Call 911 if necessary. 01/27/24 2242 <Electronically signed by Connie Hermosillo MD> Cosigner Signature (if applicable): 01/27/24 1529 <Electronically signed by Krystina FRANKLIN> CC: JIE Camarena ~ Signed [facility] Work Phone: [phone] History and physical note Author [place] Wagoner [facility] January 27, 2024 4:13pm Note Date/Time January 27, 2024 3:0 3pm [facility] Medical Records Department [address] [place] [address] H&P Exam - Hospitalist 01/27/24 1503 MR#: [id number] Acct: [id number] Name: WESTON GAMEZ Rep #:[id number] : 1985 38 From: [place] gonsalez DO PCP: JIE Geller Status:ADM IN Location: [facility] FU070-7 HPI - General General Date of Admission: 01/27/24 Date of Service: 01/27/24 Chief Complaint: Intractable nausea and vomiting HPI Narrative WESTON GAMEZ, is a 38 M who presented to [facility] ED on 01/27/2024 with intractable nausea and [...] alcohol use. Denies any other drug use. COUNT INCLUDES THE [facility] Medical History Bipolar 1 disorder Diabetes mellitus [...] % (Auto) 65.5, Lymph % (Auto) 26.1, Yuma% (Auto) 7.0, Eos % (Auto) 0.5, Baso [...] Clarity Clear, Urine pH 5.0, Ur Specific Pinson 1.025, Urine Protein 30 H, Urine Glucose [...] is a 38-year-old male who presented to [facility] ED on 01/27/2024 with intractable nausea and [...] dose. ? Admit under inpatient status to [facility]. Will start Lantus 15 units at night [...] 55 minutes. Charges/Coding Visit Charges Inpatient E&M: 87070 Init Hosp L2 01/27/24 1613 <Electronically signed by [place] Wagoner DO> Cosigner Signature (if applicable): CC: JIE Camarena; Dr. [place] Wagoner DO~ Signed [facility] Work Phone: 1(804) 838-335403-21-2024 History of Present illness Narrative* Austin Camarena APRN.[facility] - 01/27/2024 11:26 AM EDT Chief Complaint Patient presents with: ER F/U HPI Weston Gamez is a 38 year old male who presents here today for Above Complaints.. Patient presents for ER follow up. Patient seen in [facility] ER 01/24 and [place] [facility] 01/25. Patient was noted to have prominent inguinal lymph nodes on CT, glucose and ketones in urine at [facility] as well as bladder distension and [...] of 2 - PCV) Never done Covid-19 Vaccine( - 2022- season) due on 07/09/2023 Depression [...] patient presentation, patient sent to ER. Called [facility] ER and discussed case with Dr. Hermosillo. Austin Camarena APRN.HYDROELECTRIC SYSTEMS TECHNICIAN documented in this encounterWestern Reserve Hospital03-20-2024 Hospital Discharge instructions Patient Education 01/26/2024 15:10:19 [...] and water are not available, use alcohol-based territory account representative to keep from spreading the infection to [...] color of the eyes or skin The [employer]. [address] [place] [address]. All rights reserved. This information is not [...] urine Decreased or absent urine output [employer]. [address] [place] [address]. All rights reserved. This information is not intended as a substitute for professional medical care. Always follow [facility] medical cent[facility] professional's instructions. 01/26/2024 15:10:11 Hypertension, To Be [...] blood pressure monitors at most pharmacies. The [place] [employer] recommends the following guidelines for [...] face You have problems speaking or seeing 3528-7288 [employer]. [address] [place] [address], [place] [address]. All rights reserved. This information is not intended as a substitute for professional medical care. Always follow [facility]main campus medical centercare professional's instructions. 01/26/2024 15:10:08 High Blood Sugar [...] Carry a medical ID card or a PassKit drive. Or wear a medical alert bracelet [...] keep having episodes of high blood sugar. 7476-6332 The [employer]. [address] [place] [address], [place] [address]. All rights reserved. This information is not [...] of 100.4 F (38 C) or higher 8079-0861 The [employer]. [address] [place] [address]. All rights reserved. This information is not [...] foods again, start with small amounts of vths-lm-yowagi, low- fat foods. These include apple sauce, [...] increase stomach acid. Don't use aspirin or zxxs-qzk-spetbpo pain and fever medicines, if possible. This includes nonsteroidal anti-inflammatory drugs (NSAIDs). Lose excess weight. Finish eating at least 2 hours before you go to bed or lie down. Raise the head of your bed. 1967-9261 [employer]. [address] [place] [address], [place] [address]. All rights reserved. This information is not [...] for protein With:NONE PHYSICIAN Address:Unknown When:2-4 days [facility] Note Discharge Instructions Thank you for allowing [facility] to assist you with your healthcare needs. [...] and water are not available, use alcohol-based territory account representative to keep from spreading the infection to [...] Yellow color of the eyes or skin 7425-0466 [employer]. [address] [place] [address]. All rights reserved. This information is not [...] colored urine Decreased or absent urine output 4261-3326 The [employer]. [address] [place] [address]. All rights reserved. This information is not [...] blood pressure monitors at most pharmacies. The [place] [employer] recommends the following guidelines for [...] face You have problems speaking or seeing 1765-3595 [employer]. [address] [place] [address]. All rights reserved. This information is not [...] Carry a medical ID card or a compact USB drive. Or wear a medical alert [...] keep having episodes of high blood sugar. 2196-8477 The [employer]. [address] [place] [address], [place] [address]. All rights reserved. This information is not [...] of 100.4 F (38 C) or higher 3455-2490 The [employer]. [address] [place] [address]. All rights reserved. This information is not [...] foods again, start with small amounts of ebvd-qn-lklmzg, low- fat foods. These include apple sauce, [...] increase stomach acid. Don't use aspirin or vqga-zbg-nqiziof pain and fever medicines, if possible. This includes nonsteroidal anti-inflammatory drugs (NSAIDs). Lose excess weight. Finish eating at least 2 hours before you go to bed or lie down. Raise the head of your bed. 7587-9500 The [employer]. [address] [place] [address], [place] [address]. All rights reserved. This information is not intended as a substitute for professional medical care. Always follow yourhealthcare professional's instructions. Additional Information VACCINATE! IT SAVES LIVES! Members of the community who have not yet received the COVID-19 vaccine and would like to receive it can visit one of [facility] vaccine clinics. There are many vaccine clinic locations within the [facility]. For locations and available times, please visit www.[email or web address].[email or web address]/. It is important to note that some COVID mobile vaccine clinics are held outdoors and may be canceled in rainy or stormy conditions. To learn more about pediatric vaccinations (ages 5-11), we invite you to visit the [facility] webpage. https://www.[facility].org/pages/4207-Spwls-Hizomstkiot-Znuzykipnr-Bbptx-Ncz stions.htmlTo learn more about the COVID-19 vaccine, we invite you to visit the CDC website for a list of frequently asked questions. https://www.cdc.gov/coronavirus/2019-ncov/vaccines/faq.html [facility] Patient Portal Access Instructions: Stay connected with your healthcare team and access your personal medical information anytime with the [facility] Patient Portal. If you would like a full copy of your medical records please contact the [facility] Medical Records Department Wednesday through Wednesday between 8a.m. and 4:30p.m. Please follow the directions below to access the portal: 1.Access the email account you provided upon registration to the [facility].2.Look for an invitation email from [facility].3.Open the email and access the invitation link: Accept Invitation to [facility]4.Fill in the required orona to create your account. Sign into [email or web address] with your username and password that you [...] you will allow to register on the [facility] Patient Portal for access to your information. You can also access the [facility] Patient Portal on the [employer]. Simply click on Health Records under myWebRoom and then click on the [facility] logo. [...] Call your local pharmacy or go to http://[employer]/3S6Fu1d to find one close to you.3.Make use of household items: Use cat litter or old coffee grounds to dispose medications if other options arenot available. Mix your drugs with these household products, seal them in an airtight container andthrow it into the garbage. Call [facility]: [phone] to be sure your drugs can be [...] aware that I should contact my doctor. Patient/Securities Adviser Signature: Date/Time: Relationship to Patient: Witness Name/Signature: Date/Time: [facility]03-20-2024 Note ORIGINAL EXAMINATION: CT OF THE ABDOMEN [...] Sign Date: 01/26/2024 1:11:46 PM Ordering Provider: [facility]03-20-2024 Miscellaneous Notes* Telephone Encounter - Autumn Boland RN - 01/26/2024 11:15 AM EDT Protocol recommends go to ER now. Pts is going to drive him and is going to bring him to [place] ER instead of [facility]. Care plan reviewed with patient. Patient [...] down for 2 days. The went to [facility] ER yesterday and he was give [...] causing his vomiting. He was told at [facility] ER it could be because of [...] recent headinjury. 10. : N/A Protocols used: Taixrbaw-PUIRY-WR documented in this encounterWestern Reserve Hospital03-19-2024 Discharge summary Author Ryan Mccracken [facility] January 25, 2024 11:03pm Note Date/Time January 25, 2024 8:2 2pm [facility] Medical Records Department [address] [place] [address] Emergency Department Summary 01/25/24 MR#: [id number] Acct: [id number] Name: WESTON GAMEZ Rep #:[id number] : 1985 38 From: Ryan Mccracken MD PCP: JIE Geller Status:REG ER Location: ED HPI HPI - [...] Prior similar symptoms: No [facility] Medical History (Updated 01/25/24 @ 23:01 by [...] (Auto) 71.6 H Lymph % (Auto) 21.7 Yuma % (Auto) 5.3 Eos % (Auto) 0.4 [...] Color Urine Clarity Urine pH Ur Specific Pinson Urine Protein Urine Glucose (UA) Urine Ketones [...] (Auto) Neut % (Auto) Lymph % (Auto) [place] % (Auto) Eos % (Auto) Baso % [...] Color Urine Clarity Urine pH Ur Specific Pinson Urine Protein Urine Glucose (UA) Urine Ketones [...] (Auto) Neut % (Auto) Lymph % (Auto) [place] % (Auto) Eos % (Auto) Baso % [...] Clarity Clear Urine pH 7.0 Ur Specific Pinson 1.010 Urine Protein 30 H Urine Glucose [...] Hollins was made aware for admission to [facility].) 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 Argueta. Is made [...] Care Provider: Austin Camarena Referrals: Austin Camarena, SENIOR INVESTMENT ANALYST-C [Primary Care Provider] - 1-2 Weeks Disposition Disposition: Home, Self Care What to do if you have Problems For any increased pain, shortness of breath, bleeding, nausea or vomiting, chestpain, or any unexpected problems, contact your Primary Care Provider. Call [facility] ([phone]) or report to the closest Emergency Room. Call 911 if necessary. 01/25/24 230 <Electronically signed by Ryan Mccracken MD> Cosigner Signature (if applicable): CC: JIE Camarena ~ Signed [facility] Work Phone: 1(499) 235-561102-20-2024 History of Present illness Narrative* Austin Camarena, MOTOR ELECTRICIAN.HYDROELECTRIC SYSTEMS TECHNICIAN - 12/28/2023 3:24 PM EST Chief Complaint [...] - PIOGLITAZONE 15 MG TABLET Austin Camarena APRN.HYDROELECTRIC SYSTEMS TECHNICIAN documented in this encounterWestern Reserve Hospital02-13-2024 Miscellaneous Notes* Telephone Encounter - Victoria Flannery [...] you. Victoria Flannery Ma. documented in this encounterWestern Reserve Hospital12-15-2023 Instructions* Patient Instructions* Austin Camarena APRN.CNP - 10/22/2023 11:17 AM EST -Use glucometer for back up for descom if BS reading less than 80 or greater than 400. documented in this encounterWestern Reserve Hospital12-15-2023 History of Present illness Narrative* Austin Camarena [...] done Dilated Retinal Exam Never done Covid-19 Vaccine(3 - 2022-) due on 07/09/2023 Influenza Vaccine(1) due on [...] - BLOOD GLUCOSE TEST STRIPS Austin Camarena APRN.HYDROELECTRIC SYSTEMS TECHNICIAN documented in this encounterWestern Reserve Hospital12-08-2023 Miscellaneous Notes* Telephone Encounter - Workman Lisseth Mayo - 10/15/2023 1:59 PM EST Pt active on mychart today- message sent Lisseth Morel Cma * Telephone Encounter - Austin Camarena APRN.CNP - 10/15/2023 1:41 PM EST Please let patient know their xray is normal. documented in this encounterWestern Reserve Hospital12-08-2023 History of Present illness Narrative* Jaz Bueno [...] 15, 2023 12:16 PM documented in this encounterWestern Reserve Hospital12-08-2023 History of Present illness Narrative* Austin Camarena APRN.CNP - 10/15/2023 11:14 AM EST Images from the original note were not included. Chief Complaint Patient presents with: Establish Care Cough: X 1 year HPI Weston Gamez is a 38 year old male who presents here today for Above Complaints.. Patient presents to [facility]. Patient reports cough x1 year and is [...] recommended psychiatry referral. - Patient was counseled xcxz-by-tuob by myself (the billing provider) for the [...] L84 - CONSULT TO PODIATRY Austin Camarena APRN.HYDROELECTRIC SYSTEMS TECHNICIAN documented in this encounterOxford ClinicDischarge summary Author Shantell [facility] January 29, 2024 1:46pm Note Date/Time January 29, 2024 1:4 7pm [facility] Medical Records Department [address] [place] [address] Instructions for Home/Discharge Instructions 01/29/24 1346 MR#: [id number] Acct: [id number] Name: WESTON GAMEZ Rep #:[id number] : 1985 38 From: Shantell Alcaraz MD PCP: ONEL GellerC Status:ADM IN Discharge Instructions Diet Discharge Diet: [...] Provider: Austin Camarena Consulting Providers: [place] Wagoner Patient Instructions: Ketoacidosis Ch, Diabetic Gastroparesis Discharge [...] can be placed): Home, Self Care 01/29/24 1346<Electronically signed by Shantell Alcaraz MD>Shantell Alcaraz MD CC: JIE Camarena; Dr. [place] Wagoner, DO ~ Signed [facility] Work Phone: Discharge summary Author Shantell [facility] January 29, 2024 3:19pm Note Date/Time January 29, 2024 1:5 3pm [facility] Medical Records Department [address] [place] [address] Discharge Summary 01/29/24 1353 MR#: [id number] Acct: [id number] Name: WESTON GAMEZ Rep #:[id number] : 1985 38 From: Shantell Alcaraz MD PCP: JIE Geller Status:ADM IN Location: MS3 DA589-7 Providers Date of Admission: 01/27/24 Date of Discharge: 01/29/24 Primary Care Physician: JIE Geller Consultations 01/28/24 08:55 Consult: Gastroenterology Routine Consulting Provider: Suzanne Gastroenterology Reason for Consult: abdominal pain; gastritis [...] 43.8 L, Lymph % (Auto) 41.8 H, Yuma % (Auto) 11.8 H, Eos % (Auto) [...] Self Care Charges/Coding Visit Charges Inpatient E&M: 63648 Disch Hosp >30min 01/29/24 1519 <Electronically signed by Shantell Alcaraz MD> Cosigner Signature (if applicable): CC: ONELC Austin Camarena; Dr. Shantell Alcaraz MD~ Signed [facility] Work Phone: Evaluation + Plan note No data available for this section [facility] Evaluation note* Diagnosis Screening for diabetes mellitus- Primary Encounter for lipid screening for cardiovascular disease Screening for lipoid disorders Wellness examination Bipolar affective disorder, remission status unspecified (HCC) Encounter for immunization Need for other [...] Corns and callosities documented in this encounter [facility]* Diagnosis Type 2 diabetes mellitus without complication, without long-term current use of insulin (HCC)- Primary Encounter for smoking cessation counseling Counseling on substance use and abuse documented in this encounter [facility] note* Diagnosis Type 2 diabetes mellitus without complication, without long-term current use of insulin (HCC) documented in this encounter [facility] note* Diagnosis Type 2 diabetes mellitus without complication, without long-term current use of insulin (HCC)- Primary Encounter for smoking cessation counseling Counseling on substance use and abuse documented in this encounter [facility] noteNo assessment information availableWMarietta Memorial Hospital Work Phone: evaluation note* Diagnosis Onset Date Resolution Status Abdominal pain, acute, generalized acute Acute dehydration acute DKA (diabetic ketoacidoses) acute Nausea & vomiting acute Type 2 diabetes mellitus with hyperglycemia acute Hypertension 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, managed as type 2 (HCC) Type II or unspecified type diabetes mellitus without mention of complication, not stated as uncontrolled Diminished pulses in lower extremity Other symptoms involving cardiovascular system documented in this encounter [facility] note* Diagnosis Type 2 diabetes mellitus with peripheral neuropathy (HCC)- Primary documented in this encounter [facility] note* Diagnosis Type 2 diabetes mellitus with peripheral neuropathy (HCC) documented in this encounter [facility] note* Diagnosis Type 2 diabetes mellitus with peripheral neuropathy (HCC)- Primary Nausea and vomiting, unspecified vomiting type Diabetes 1.5, managed as type 2 (HCC) Type II or unspecified type diabetes mellitus without mention of complication, not stated as uncontrolled Elevated LDL cholesterol level Pure hypercholesterolemia documented in this encounter [facility] note* Diagnosis Chronic cough Cough documented in this encounter [facility] note* Diagnosis Nausea and vomiting, unspecified vomiting type- Primary Type 2 diabetes mellitus with peripheral neuropathy (HCC) Encounter for immunization Need for other specified prophylactic vaccination against single bacterial disease Hematemesis with nausea Acute gastric ulcer without hemorrhage or perforation Acute gastric ulcer without mention of hemorrhage, perforation, or obstruction documented in this encounter [facility] note* Diagnosis Procedure not carried out- Primary Procedure not carried out for other reasons [facility] Diagnosis Type 2 diabetes mellitus without retinopathy (HCC)- Primary Type II or unspecified type diabetes mellitus without mention of complication, not stated as uncontrolled Myopia, 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 [facility] Diagnosis Diabetes 1.5, managed as type 2 (HCC) Type II or unspecified type diabetes mellitus without mention of complication, not stated as uncontrolled [facility]* Diagnosis ADHD (attention deficit hyperactivity disorder), predominantly hyperactive impulsive type- Primary Attention deficit disorder with hyperactivity [facility]* Diagnosis ADHD (attention deficit hyperactivity disorder), predominantly hyperactive impulsive type- Primary Attention deficit disorder with hyperactivity Primary hypertension Unspecified essential hypertension [facility]* Diagnosis Medication management- Primary Encounter for long-term (current) use of other medications ADHD (attention deficit hyperactivity disorder), predominantly hyperactive impulsive type Attention deficit disorder with hyperactivity [facility]* Diagnosis Type 2 diabetes mellitus without retinopathy (HCC)- Primary Type II or unspecified type diabetes mellitus without mention of complication, not stated as uncontrolled Myopia, 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 [facility]* Diagnosis Medication management- Primary Encounter for long-term (current) use of other medications [facility]* Diagnosis Elevated LDL cholesterol level Pure hypercholesterolemia Type 2 diabetes mellitus with peripheral neuropathy (HCC) [facility]* Diagnosis ADHD (attention deficit hyperactivity disorder), predominantly hyperactive impulsive type- Primary Attention deficit disorder with hyperactivity [facility]* Diagnosis Diabetes 1.5, managed as type 2 (HCC)- Primary Type II or unspecified type diabetes mellitus without mention of complication, not stated as uncontrolled [facility]* Diagnosis Primary hypertension Unspecified essential hypertension Elevated LDL cholesterol level Pure hypercholesterolemia [facility] Diagnosis Vitamin D deficiency- Primary Unspecified vitamin D deficiency [facility] Diagnosis Type 2 diabetes mellitus with peripheral neuropathy (HCC) [facility]* Diagnosis Dental infection- Primary Acute apical [...] stated as uncontrolled [facility] Diagnosis Hyperkalemia- Primary Hyperpotassemia [facility]* Diagnosis Diabetes 1.5, managed as type 2 (HCC) Type II or unspecified type diabetes mellitus without mention of complication, not stated as uncontrolled [facility] Author Troy Wagoner [facility] January 27, 2024 4:13pm Note Date/Time January 27, 2024 3:0 3pm [facility] Medical Records Department [address] [place] [address] H&P Exam - Hospitalist 01/27/24 1503 MR#: [id number] Acct: [id number] Name: WESTON GAMEZ Rep #:[id number] : 1985 38 From: Troy gonsalez DO PCP: Austin Camarena NP-C Status:ADM IN Location: [facility] [place] [id number] HPI - General General Date of Admission: 01/27/24 Date of Service: 01/27/24 Chief Complaint: Intractable nausea and vomiting HPI Narrative WESTON GAMEZ, is a 38 M who presented to [facility] ED on 01/27/2024 with intractable nausea and [...] alcohol use. Denies any other drug use. COUNT INCLUDES THE [facility] Medical History Bipolar 1 disorder Diabetes mellitus [...] % (Auto) 65.5, Lymph % (Auto) 26.1, [place]% (Auto) 7.0, Eos % (Auto) 0.5, Baso [...] Clarity Clear, Urine pH 5.0, Ur Specific Pinson 1.025, Urine Protein 30 H, Urine Glucose [...] is a 38-year-old male who presented to [facility] ED on 01/27/2024 with intractable nausea and [...] dose. ? Admit under inpatient status to [facility]. Will start Lantus 15 units at night [...] 55 minutes. Charges/Coding Visit Charges Inpatient E&M: 70850 Init Hosp L2 01/27/24 1613 <Electronically signed by Troy Wagoner DO> Cosigner Signature (if applicable): CC: JIE Camarena; Dr. Troy Wagoner DO~ Signed [facility] Work Phone: Hospital Discharge instructions Additional Instructions Continue to not smoke cigarettes. Follow-up with a dentist as soon as possible. Take the antibiotics as directed. Return with difficulty swallowing or breathing, sustained high fever, new or worsening symptoms.[facility] Work Phone: Hospital Discharge instructionsAdditional Instructions Please continue all of your home medications as directed by your doctor and return to the ER should you have any further concernsWooMer[facility] Work Phone: Hospital Discharge instructionsAdditional Instructions Please take the Carafate 1 g 3 times a day for [address] Zaldivar office and follow-up as soon as possible. Return to the ED with any new or worsening symptoms. Your evaluation in the Emergency Department did not reveal any acute reason for admission. However, I want to emphasize that you may be early in the course of a disease process or illness even if it is not present. For this reason you should follow-up within 24 hours for reevaluation with either your primary care physician or if necessary back here in the Emergency Department. You should return to the Emergency Department immediately if your symptoms worsen or new symptoms develop.[facility] Work Phone: Reason for referral (narrative)* Outpatient Procedure (Routine) - Authorized Specialty Diagnoses / Procedures Referred By Hawk t Referred To Contact [facility] Diagnoses Diabetes 1.5, managed as type 2 (HCC) Diminished pulses in lower extremity Procedures PVR ANK PRESS [facility]ICH[facility]AS [facility] NON-INVAS PHYSIOLOGIC STD EXTREMITY ART 2 LEVEL [address] [address] [place] [address] [facility] [address] [place] [address] Referral ID Status Reason Start Date Expiration Date Visits Requested Visits Authorized [id number] Authorized Auto-Generat ed Referral 02/08/2024 02/07/2025 1 1 T [facility] for referral (narrative)No reason for referral information availableWooMer[facility] Work Phone: Reason for Referral Specialty Diagnoses / Procedures Referred By Contneelima t Referred To Contact Podiatry Diagnoses Diabetes 1.5, managed as type 2 (HCC) Callus of foot Procedures CONSULT TO PODIATRY OFFICE/OUTPATIENT [facility] 60-74 MINUTES Austin Camarena APRN.[facility] [address] [place] [address] Referral ID Status Reason Start Date Expiration Date Visits Requested Visits Authorized [id number] Authorized PCP Requested Referral 10/15/2023 10/14/2024 1 1 Specialty Diagnoses / Procedures Referred By Contac t Referred To Contact Ophthalmology Diagnoses Diabetes 1.5, managed as type 2 (HCC) Procedures CONSULT TO OPHTHALMOLOGY OFFICE/OUTPATIENT [facility] 60-74 MINUTES Austin Camarena APRN.[employer]DR[employer]IC SYSTEMS TECHNICIAN [address] [place] [address] Referral ID Status Reason Start Date Expiration Date Visits Requested Visits Authorized [id number] Authorized PCP Requested Referral 10/15/2023 10/14/2024 1 1 Specialty Diagnoses / Procedures Referred By Contac t Referred To Contact Diagnoses Bipolar affective disorder, remission status unspecified (HCC) Procedures CONSULT TO PSYCHIATRY Austin Camarena APRN.HYDROELECTRIC SYSTEMS TECHNICIAN [address] [place] [address] Raegan, Maria C Centeno [address] [place] [address] Referral ID Status Reason Start Date Expiration Date Visits Requested Visits Authorized [id number] Ref Not Required PCP Requested Referral 10/15/2023 10/14/2024 1 1 Specialty Diagnoses / Procedures Referred By Contac t Referred To Contact Diagnoses Type 2 diabetes mellitus without complication, without long-term current use of insulin (HCC) Procedures CONSULT TO DIABETES EDUCATION DSME/MNT MEDICAL NUTRITION ASSMT&IVNTJ INDIV EACH 15 AK MEDICAL NUTRITION ASSMT&IVNTJ INDIV EACH 15 [place] MEDICAL NUTRITION ASSMT&IVNTJ INDIV EACH 15 [place] MEDICAL NUTRITION ASSMT&IVNTJ INDIV EACH 15 [place] Austin Camarena APRN.HYDROELECTRIC SYSTEMS TECHNICIAN [address] [place] [address] Referral ID Status Reason Start Date Expiration Date Visits Requested Visits Authorized [id number] Authorized PCP Requested Referral 10/21/2024 1 1 Specialty Diagnoses / Procedures Referred By Contac t Referred To Contact Diagnoses Diabetes 1.5, managed as type 2 (HCC) Elevated LDL cholesterol level Procedures ENDOCRINOLOGY DIETITIAN VISIT (MNT) MEDICAL NUTRITION ASSMT&IVNTJ INDIV EACH 15 [place] MEDICAL NUTRITION ASSMT&IVNTJ INDIV EACH 15 [place] MEDICAL NUTRITION ASSMT&IVNTJ INDIV EACH 15 [place] MEDICAL NUTRITION ASSMT&IVNTJ INDIV EACH 15 [place] Austin Camarena APRN.HYDROELECTRIC SYSTEMS TECHNICIAN [address] [place] [address] Referral ID Status Reason Start Date Expiration Date Visits Requested Visits Authorized [id number] Authorized PCP Requested Referral 05/16/2024 05/16/2025 1 [...] Admit Date Elevated alkaline phosphatase level Louis brucey 2024 11:43am Elevated AST (SGOT) November 22, 2024 1 1:43am Hypertension November 22, 2024 1 1:43am Insulin pump titration November 22 11:43am Presence of insulin pump November 22 11:43am Type 1 diabetes November 22, 2024 1 1:43am Elevated alkaline phosphatase level [facility] 2024 1:02pm Elevated AST (SGOT) January [...] Visit Admit Date Elevated alkaline phosphatase level [facility] 2024 1:02pm Elevated AST (SGOT) January [...] Wk FU May 03, 2025 8:44 am Reason for Visit Admit Date Elevated alkaline phosphatase level [facility] 2024 1:02pm Elevated AST (SGOT) January [...] pm Chief Complaint Admit Date 2 M FU January 18, 2025 1:0 2pm FACIAL SWELLING February 06, 2025 5:09 pm 3 M FU April 19, 2025 1:07 pm 2 Wk FU May 03, 2025 8:44 am 6 M May 17, 2025 2:45 pm Reason for Visit Admit Date Elevated alkaline phosphatase level [facility] 2024 1:02pm Elevated AST (SGOT) January [...] pm 1 M FU June 08, 2025 11: 24am Chief Complaint Admit Date 3 M FU April 19, 2025 1:07 pm 2 Wk FU May 03, 2025 8:44 am 6 M FU May 17, 2025 2:45 pm 1 M FU June 08, 2025 11: 24am abd pain June 12, 2025 8:1 7pm Chief Complaint Admit Date 3 M FU April 19, 2025 1:07 pm 2 Wk FU May 03, 2025 8:44 am 6 M FU May 17, 2025 2:45 pm 1 M FU June 08, 2025 11: 24am abd pain June 12, 2025 8:1 7pm ABD PAIN June 13, 2025 4:2 4pm Advance Directives Advance Directive Response Recorded Date/ Time Living Will No January 25, 2024 9:05pm Power of Patient Relations Coordinator No January 24 9:05pm Advance Directive Response Recorded Date/ Time Living Will No January 27, 2024 4:25pm Power of Patient Relations Coordinator No January 26 4:25pm Advance Directive Response Recorded Date/ Time Living Will Yes May 14, 2024 3 :37pm Do you have a Healthcare Pow er of Patient Relations Coordinator? Yes May 14, 2024 3:37pm Living Will No October 28, 3:20pm Do you have a Healthcare Pow er of Patient Relations Coordinator? No October 28, 2024 3:20pm Living Will No February 06, 2025 5:28pm Do you have a Healthcare Pow er of Patient Relations Coordinator? Yes February 06, 2025 5:28pm Name of Medical Power of Patient Relations Coordinator darlene lund n February 06, 2025 5:28pm Advance Directive Response Recorded Date/ Time Living Will No February 06, 2025 5:28pm Do you have a Healthcare Power of Patient Relations Coordinator? Yes February 06, 2025 5:28pm Name of Medical Power of Patient Relations Coordinator darlene lund n February 06, 2025 5:28pm Advance Directive Response Recorded Date/ Time Do you have a Healthcare Power of Patient Relations Coordinator? Yes June 12, 2025 8:27pm Advance Directive Response Recorded Date/ Time Do you have a Healthcare Power of Patient Relations Coordinator? Yes June 12, 2025 8:27pm Do you have a Healthcare Power of Patient Relations Coordinator? No June 13, 2025 4:50pm Summary Purpose Family History Relationship Condition Age [...] or prosecute any alcohol or drug abuse patient.[facility] the event this information is protected by the Federal Confidentiality of Alcohol and Drug Abuse Patient Records regulations: The Federal rules restrict any use of the information to criminally investigate or prosecute any alcohol or drug abuse patient.[facility] the event this information is protected by the Federal Confidentiality of Alcohol and Drug Abuse Patient Records regulations: The Federal rules restrict any use of the information to criminally investigate or prosecute any alcohol or drug abuse patient.[facility] the event this information is protected by the Federal Confidentiality of Alcohol and Drug Abuse Patient Records regulations: The Federal rules restrict any use of the information to criminally investigate or prosecute any alcohol or drug abuse patient.[facility] the event this information is protected by the Federal Confidentiality of Alcohol and Drug Abuse Patient Records regulations: The Federal rules restrict any use of the information to criminally investigate or prosecute any alcohol or drug abuse patient.[facility] the event this information is protected by the Federal Confidentiality of Alcohol and Drug Abuse Patient Records regulations: The Federal rules restrict any use of the information to criminally investigate or prosecute any alcohol or drug abuse patient.[facility] the event this information is protected by the Federal Confidentiality of Alcohol and Drug Abuse Patient Records regulations: The Federal rules restrict any use of the information to criminally investigate or prosecute any alcohol or drug abuse patient.[facility] the event this information is protected by the Federal Confidentiality of Alcohol and Drug Abuse Patient Records regulations: The Federal rules restrict any use of the information to criminally investigate or prosecute any alcohol or drug abuse patient.[facility]In the event this information is protected by the Federal Confidentiality of Alcohol and Drug Abuse Patient Records regulations: The Federal rules restrict any use of the information to criminally investigate or prosecute any alcohol or drug abuse patient.[facility] the event this information is protected by the Federal Confidentiality of Alcohol and Drug Abuse Patient Records regulations: The Federal rules restrict any use of the information to criminally investigate or prosecute any alcohol or drug abuse patient.[facility] the event this information is protected by the Federal Confidentiality of Alcohol and Drug Abuse Patient Records regulations: The Federal rules restrict any use of the information to criminally investigate or prosecute any alcohol or drug abuse patient.[facility] the event this information is protected by the Federal Confidentiality of Alcohol and Drug Abuse Patient Records regulations: The Federal rules restrict any use of the information to criminally investigate or prosecute any alcohol or drug abuse patient.[facility] the event this information is protected by the Federal Confidentiality of Alcohol and Drug Abuse Patient Records regulations: The Federal rules restrict any use of the information to criminally investigate or prosecute any alcohol or drug abuse patient.[facility] the event this information is protected by the Federal Confidentiality of Alcohol and Drug Abuse Patient Records regulations: The Federal rules restrict any use of the information to criminally investigate or prosecute any alcohol or drug abuse patient.[facility] the event this information is protected by the Federal Confidentiality of Alcohol and Drug Abuse Patient Records regulations: The Federal rules restrict any use of the information to criminally investigate or prosecute any alcohol or drug abuse patient.[facility] the event this information is protected by the Federal Confidentiality of Alcohol and Drug Abuse Patient Records regulations: The Federal rules restrict any use of the information to criminally investigate or prosecute any alcohol or drug abuse patient.[facility] the event this information is protected by the Federal Confidentiality of Alcohol and Drug Abuse Patient Records regulations: The Federal rules restrict any use of the information to criminally investigate or prosecute any alcohol or drug abuse patient.[facility] the event this information is protected by the Federal Confidentiality of Alcohol and Drug Abuse Patient Records regulations: The Federal rules restrict any use of the information to criminally investigate or prosecute any alcohol or drug abuse patient.[facility] the event this information is protected by the Federal Confidentiality of Alcohol and Drug Abuse Patient Records regulations: The Federal rules restrict any use of the information to criminally investigate or prosecute any alcohol or drug abuse patient.[facility] the event this information is protected by the Federal Confidentiality of Alcohol and Drug Abuse Patient Records regulations: The Federal rules restrict any use of the information to criminally investigate or prosecute any alcohol or drug abuse patient.[facility] the event this information is protected by the Federal Confidentiality of Alcohol and Drug Abuse Patient Records regulations: The Federal rules restrict any use of the information to criminally investigate or prosecute any alcohol or drug abuse patient.[facility] the event this information is protected by the Federal Confidentiality of Alcohol and Drug Abuse Patient Records regulations: The Federal rules restrict any use of the information to criminally investigate or prosecute any alcohol or drug abuse patient.[facility] the event this information is protected by the Federal Confidentiality of Alcohol and Drug Abuse Patient Records regulations: The Federal rules restrict any use of the information to criminally investigate or prosecute any alcohol or drug abuse patient.[facility] the event this information is protected by the Federal Confidentiality of Alcohol and Drug Abuse Patient Records regulations: The Federal rules restrict any use of the information to criminally investigate or prosecute any alcohol or drug abuse patient.[facility] the event this information is protected by the Federal Confidentiality of Alcohol and Drug Abuse Patient Records regulations: The Federal rules restrict any use of the information to criminally investigate or prosecute any alcohol or drug abuse patient.[facility] the event this information is protected by the Federal Confidentiality of Alcohol and Drug Abuse Patient Records regulations: The Federal rules restrict any use of the information to criminally investigate or prosecute any alcohol or drug abuse patient.[facility] the event this information is protected by the Federal Confidentiality of Alcohol and Drug Abuse Patient Records regulations: The Federal rules restrict any use of the information to criminally investigate or prosecute any alcohol or drug abuse patient.[facility]In the event this information is protected by the Federal Confidentiality of Alcohol and Drug Abuse Patient Records regulations: The Federal rules restrict any use of the information to criminally investigate or prosecute any alcohol or drug abuse patient.[facility]In the event this information is protected by the Federal Confidentiality of Alcohol and Drug Abuse Patient Records regulations: The Federal rules restrict any use of the information to criminally investigate or prosecute any alcohol or drug abuse patient.[facility]In the event this information is protected by the Federal Confidentiality of Alcohol and Drug Abuse Patient Records regulations: The Federal rules restrict any use of the information to criminally investigate or prosecute any alcohol or drug abuse patient.[facility] HospitalIn the event this information is protected by the Federal Confidentiality of Alcohol and Drug Abuse Patient Records regulations: The Federal rules restrict any use of the information to criminally investigate or prosecute any alcohol or drug abuse patient.[facility]In the event this information is protected by the Federal Confidentiality of Alcohol and Drug Abuse Patient Records regulations: The Federal rules restrict any use of the information to criminally investigate or prosecute any alcohol or drug abuse patient.[facility] HospitalIn the event this information is protected by the Federal Confidentiality of Alcohol and Drug Abuse Patient Records regulations: The Federal rules restrict any use of the information to criminally investigate or prosecute any alcohol or drug abuse patient.[facility] Reason for Visit (unrecogniz ed section and content) Reason Comments Establish Care Cough X 1 year Reason Comments Results Reason Comments Follow Up Reason Comments Refill Request Reason Comments Follow Up Reason Comments Vomiting Reason Comments ER F/U Reason Comments New Diabetic Foot Care Pain Callous Specialty Diagnoses / Procedures Referred By Hawk marinelli Referred To Contact Podiatry Diagnoses Diabetes 1.5, managed as type 2 (HCC) Callus of foot Procedures CONSULT TO PODIATRY OFFICE/OUTPATIENT NEW HIGH MDM 60-74 MINUTES Austin Camarena APRN.CNP [address] [place] [address] Referral ID Status Reason Start Date Expiration Date V isits Requested Visits Authorized [id number] Closed PCP Requested Referral 10/15/2023 10/14/2024 1 [...] Care Teams (unrecognized sec tion and content) Fire Suppression Captain Relationship Specialty Start Date End Date Austin Camarena APRN.CNP [id number] [place], [place] [id number] PCP - General Family Medicine 10/15/23 Fire Suppression Captain Relationship Specialty Start Date End Date Austin Camarena APRN.CNP [address] [place] [id number] PCP - General Family Medicine 10/15/23 Fire Suppression Captain Relationship Specialty Start Date End Date Austin Camarena, MOTOR ELECTRICIAN.HYDROELECTRIC SYSTEMS TECHNICIAN [address] [place] [id number] PCP - [facility] Family Medicine 10/15/23 Fire Suppression Captain Relationship Specialty Start Date End Date Austin Camarena, MOTOR ELECTRICIAN.HYDROELECTRIC SYSTEMS TECHNICIAN [address] [place] [id number] PCP - [facility] Family Medicine 10/15/23 Fire Suppression Captain Relationship Specialty Start Date End Date Austin Camarena, MOTOR ELECTRICIAN.HYDROELECTRIC SYSTEMS TECHNICIAN [address] [place] [id number] PCP - [facility] Family Medicine 10/15/23 Team Status: Active Member Role Status Dates No Primary Care Physician Family Provider Active Austin Camarena SENIOR INVESTMENT ANALYST-C Primary Care Provider Active Team Status: Inactive Member Role Status Dates Austin Camarena NP-C Primary Care Provider Active Dr. Ryan Mccracken MD Emergency Provider Active Team Status: Active Member Role Status Dates Austin Camarena NP-C Primary Care Provider Active Dr. Connie Hermosillo MD Emergency Provider Active Dr. Troy Wagoner DO Admit Provider, Attending Provider Active Fire Suppression Captain Relationship Specialty Start Date End Date Austin Camarena, MOTOR ELECTRICIAN.HYDROELECTRIC SYSTEMS TECHNICIAN [address] [place] [address] [id number] PCP - General Family Medicine 10/15/23 Team Status: Active Member Role Status Dates Austin Camarena SENIOR INVESTMENT ANALYST-C Primary Care Provider Active Dr. Jaycob Argueta DO Attending Provider Active Team Status: Active Member Role Status Dates Austin Camarena SENIOR INVESTMENT ANALYST-C Primary Care Provider Active Dr. Connie Hermosillo MD Emergency Provider Active Dr. Troy Wagoner DO Admit Provider, Other Pro vider Active Dr. Shantell Alcaraz MD Attending Provider, Other Prov ider Active Team Status: Inactive Member Role Status Dates Austin Camarena , SENIOR INVESTMENT ANALYST-C Primary Care Provider Active Dr. Connie Hermosillo MD Emergency Provider Active Dr. Troy Wagoner , DO Admit Provider, Other Pro vider Active Dr. Shantell Alcaraz MD Attending Provider Active Fire Suppression Captain Relationship Specialty Start Date End Date Austin Camarena APRN.HYDROELECTRIC SYSTEMS TECHNICIAN [address] [place] [address] [id number] PCP - General Family Medicine 10/15/23 Fire Suppression Captain Relationship Specialty Start Date End Date Austin Camarena APRN.HYDROELECTRIC SYSTEMS TECHNICIAN [address] [place] [id number] PCP - General Family Medicine 10/15/23 Fire Suppression Captain Relationship Specialty Start Date End Date Austin Camarena, MOTOR ELECTRICIAN.HYDROELECTRIC SYSTEMS TECHNICIAN [address] [place] [address] [id number] PCP - General Family Medicine 10/15/23 Fire Suppression Captain Relationship Specialty Start Date End Date Austin Camarena APRN.HYDROELECTRIC SYSTEMS TECHNICIAN [address] [place] [address] [phone] PCP - General Family Medicine 10/15/23 Fire Suppression Captain Relationship Specialty Start Date End Date Austin Camarena, MOTOR ELECTRICIAN.HYDROELECTRIC SYSTEMS TECHNICIAN [address] [place] [address] [phone] PCP - General Family Medicine 10/15/23 Fire Suppression Captain Relationship Specialty Start Date End Date Austin Camarena APRN.HYDROELECTRIC SYSTEMS TECHNICIAN [address] [place] [address] [id number] PCP - General Family Medicine 10/15/23 Fire Suppression Captain Relationship Specialty Start Date End Date Austin Camarena APRN.HYDROELECTRIC SYSTEMS TECHNICIAN [address] [place] [address] [phone] PCP - General Family Medicine 10/15/23 Fire Suppression Captain Relationship Specialty Start Date End Date Austin Camarena MOTOR ELECTRICIAN.HYDROELECTRIC SYSTEMS TECHNICIAN [address] [place] [address] [id number] PCP - General Family Medicine 10/15/23 Fire Suppression Captain Relationship Specialty Start Date End Date Austin Camarena MOTOR ELECTRICIAN.HYDROELECTRIC SYSTEMS TECHNICIAN [address] [place] [address] [phone] PCP - General Family Medicine 10/15/23 Fire Suppression Captain Relationship Specialty Start Date End Date Austin Camarena, MOTOR ELECTRICIAN.HYDROELECTRIC SYSTEMS TECHNICIAN [address] [place] [address] [phone] PCP - General Family Medicine 10/15/23 Fire Suppression Captain Relationship Specialty Start Date End Date Austin Camarena, MOTOR ELECTRICIAN.HYDROELECTRIC SYSTEMS TECHNICIAN [address] [place] [address] [phone] PCP - General Family Medicine 10/15/23 Fire Suppression Captain Relationship Specialty Start Date End Date Austin Camarena, MOTOR ELECTRICIAN.HYDROELECTRIC SYSTEMS TECHNICIAN [address] [place] [address] [id number] PCP - General Family Medicine 10/15/23 Fire Suppression Captain Relationship Specialty Start Date End Date Austin Camarena, MOTOR ELECTRICIAN.HYDROELECTRIC SYSTEMS TECHNICIAN [address] [place] [address] [id number] PCP - General Family Medicine 10/15/23 Fire Suppression Captain Relationship Specialty Start Date End Date Austin Camarena, MOTOR ELECTRICIAN.HYDROELECTRIC SYSTEMS TECHNICIAN [address] [place] [address] [id number] PCP - General Family Medicine 10/15/23 Team Status: Active Member Role Status Dates Austin Camarena SENIOR INVESTMENT ANALYST-C Primary Care Provider Active Team Status: Inactive Member Role Status Dates Austin Camarena NP-C Primary Care Provider Active Start: October 28, 2024 End: October 28, 2024 Ludin Sanderson MD Attending Provider Active Star t: October 28, 2024 End: October 28, 2024 Ludin Sanderson MD Emergency Provider Active Star t: October 28, 2024 End: October 28, 2024 Team Status: Inactive Member Role Status Dates Queenie Gonzales NP-C Attending Provider Active Start: November 22, 2024 End: November 22, 2024 Austin Camarena NP-C Primary Care Provider Active Start: November 22, 2024 End: November 22, 2024 Austin Camarena SENIOR INVESTMENT ANALYST-C Referring Provider Active Start: November 22, 2024 End: November 22, 2024 Team Status: Inactive Member Role Status Dates Austin Camarena SENIOR INVESTMENT ANALYST-C Primary Care Provider Active Start: January 18, 2025 End: January 18, 2025 Austin Camarena NP-C Referring Provider Active Start: January 18, 2025 End: January 18, 2025 Queenie Gonzales NP-C Attending Provider Active Start: January 18, 2025 End: January 18, 2025 Team Status: Inactive Member Role Status Dates Austin Camarena SENIOR INVESTMENT ANALYST-C Primary Care Provider Active Start: February 06, 2025 End: February 06, 2025 Ludin Sanderson MD Emergency Provider Active Star t: February 06, 2025 End: February 06, 2025 Fire Suppression Captain Relationship Specialty Start Date End Date Austin Camarena APRN.CNP [address] [place] [address] PCP - General Family Medicine 10/15/23 Team Status: Inactive Member Role Status Dates Austin Camarena SENIOR INVESTMENT ANALYST-C Primary Care Provider Active Start: February 06, 2025 End: February 06, 2025 Ludin Sanderson MD Attending Provider Active Star t: February 06, 2025 End: February 06, 2025 Ludin Sanderson MD Emergency Provider Active Star t: February 06, 2025 End: February 06, 2025 Team Status: Inactive Member Role Status Dates Austin Camarena SENIOR INVESTMENT ANALYST-C Primary Care Provider Active Start: April 19, 2025 End: April 19, 2025 Austin Camarena NP-C Referring Provider Active Start: April 19, 2025 End: April 19, 2025 ONEL BaldwinC Attending Provider Active Start: April 19, 2025 End: April 19, 2025 Fire Suppression Captain Relationship Specialty Start Date End Date Austin Camarena APRN.HYDROELECTRIC SYSTEMS TECHNICIAN [address] [place] [address] PCP - General Family Medicine 10/15/23 Team Status: Inactive Member Role Status Dates Austin Camarena SENIOR INVESTMENT ANALYST-C Primary Care Provider Active Start: May 03, 2025 End: May 03, 2025 Austin Camarena SENIOR INVESTMENT ANALYST-C Referring Provider Active Start: May 03, 2025 End: May 03, 2025 Dr. Mushtaq Hernandez MD Attending Provider Active Sta rt: May 03, 2025 End: May 03, 2025 Team Status: Active Member Role/Relationship Status Dates Austin Camarena SENIOR INVESTMENT ANALYST-C Primary Care Provider Active Team Status: Inactive Member Role/Relationship Status Dates Austin Camarena SENIOR INVESTMENT ANALYST-C Primary Care Provider Active Start: January 18, 2025 End: January 18, 2025 Austin Camarena NP-C Referring Provider Active Start: January 18, 2025 End: January 18, 2025 ONEL BaldwinC Attending Provider Active Start: January 18, 2025 End: January 18, 2025 Team Status: Inactive Member Role/Relationship Status Dates Austin Camarena SENIOR INVESTMENT ANALYST-C Primary Care Provider Active Start: February 06, 2025 End: February 06, 2025 Ludin Sanderson MD Attending Provider Active Star t: February 06, 2025 End: February 06, 2025 Ludin Sanderson MD Emergency Provider Active Star t: February 06, 2025 End: February 06, 2025 Team Status: Inactive Member Role/Relationship Status Dates Austin Camarena SENIOR INVESTMENT ANALYST-C Primary Care Provider Active Start: April 19, 2025 End: April 19, 2025 Austin Camarena SENIOR INVESTMENT ANALYST-C Referring Provider Active Start: April 19, 2025 End: April 19, 2025 Queenie Gonzales SENIOR INVESTMENT ANALYST-C Attending Provider Active Start: April 19, 2025 End: April 19, 2025 Team Status: Inactive Member Role/Relationship Status Dates Austin Camarena SENIOR INVESTMENT ANALYST-C Primary Care Provider Active Start: May 03, 2025 End: May 03, 2025 Austin Camarena SENIOR INVESTMENT ANALYST-C Referring Provider Active Start: May 03, 2025 End: May 03, 2025 Dr. Mushtaq Hernandez MD Attending Provider Active Sta rt: May 03, 2025 End: May 03, 2025 Team Status: Inactive Member Role/Relationship Status Dates Austin Camarena SENIOR INVESTMENT ANALYST-C Primary Care Provider Active Start: May 17, 2025 End: May 17, 2025 Austin Camarena SENIOR INVESTMENT ANALYST-C Referring Provider Active Start: May 17, 2025 End: May 17, 2025 Dr. Jaycob Argueta DO Attending Provider Active Start: May 17, 2025 End: May 17, 2025 Team Status: Inactive Member Role/Relationship Status Dates Austin Camarena SENIOR INVESTMENT ANALYST-C Primary Care Provider Active Start: April 19, 2025 End: April 19, 2025 Austin Camarena SENIOR INVESTMENT ANALYST-C Referring Provider Active Start: April 19, 2025 End: April 19, 2025 Queenie Gonzales SENIOR INVESTMENT ANALYST-C Attending Provider Active Start: April 19, 2025 End: April 19, 2025 Team Status: Inactive Member Role/Relationship Status Dates Austin Camarena SENIOR INVESTMENT ANALYST-C Primary Care Provider Active Start: May 03, 2025 End: May 03, 2025 Austin Camarena SENIOR INVESTMENT ANALYST-C Referring Provider Active Start: May 03, 2025 End: May 03, 2025 Dr. Mushtaq Hernandez MD Attending Provider Active Sta rt: May 03, 2025 End: May 03, 2025 Team Status: Inactive Member Role/Relationship Status Dates Austin Camarena SENIOR INVESTMENT ANALYST-C Primary Care Provider Active Start: May 17, 2025 End: May 17, 2025 Austin Camarena SENIOR INVESTMENT ANALYST-C Referring Provider Active Start: May 17, 2025 End: May 17, 2025 Dr. Jaycob Argueta DO Attending Provider Active Start: May 17, 2025 End: May 17, 2025 Team Status: Inactive Member Role/Relationship Status Dates Austin Camarena SENIOR INVESTMENT ANALYST-C Primary Care Provider Active Start: June 08, 2025 End: June 08, 2025 JIE Geller Referring Provider Active Start: June 08, 2025 End: June 08, 2025 Dr. Mushtaq Hernandez MD Attending Provider Active Sta rt: June 08, 2025 End: June 08, 2025 Team Status: Inactive Member Role/Relationship Status Dates JIE Geller Primary Care Provider Active Start: June 12, 2025 End: June 13, 2025 Dr. August Carroll DO Emergency Provider Activ e Start: June 12, 2025 End: June 13, 2025 Team Status: Inactive Member Role/Relationship Status Dates JIE Geller Primary Care Provider Active Start: June 13, 2025 End: June 13, 2025 Dr. Garima Antonio MD Emergency Provider Active S tart: June 13, 2025 End: June 13, 2025 Goals (unrecognized section and content) Goals [...] section and content) DATE CREATED AUTHOR 05/15/2024 [facility] [place] DATE CREATED AUTHOR AUTHOR'S ORGANIZ ATION 12/22/2024 [facility] DATE CREATED AUTHOR AUTHOR'S ORGANIZ ATION 05/22/2025 [facility] DATE CREATED AUTHOR AUTHOR'S ORGANIZ ATION 06/10/2025 [facility] FOR RECORDS PERTAINING TO PATIENTS WHO [...] BE BASED ON THE PRIMARY CLINICAL RECORDS. [facility] [place] [employer] [facility]. provides no warranty or guarantee of the accuracy or completeness of information in this document.
[2025-06-14 00:07] VITALS: BP 152/93; PULSE 101; RESP 16; TEMP 36.7; O2SAT 100
[2025-06-14] MEDS: Lidocaine 2% Viscous15 ML UDC 10 ML PO (00:09)
--- NOTE | 2025-06-14 00:12 | HP.PCM.HOS_ITS ---
HPI - General General Date of Admission: 06/14/25 Date of Service: 06/14/25 Chief Complaint: N/V, abdominal pain. HPI Narrative The patient is a 39 y/o M w/ PMHx: Chronic cannabis use, Anxiety and Depression/Schizo-affective schizophrenia, Chronic migraines, IDDM with chronic neuropathy and chronic gastroparesis, Former Tobacco use, GERD with history of gastric ulcer with H. pylori status at that time, HTN, HLD with serial ED presentation secondary to persistent abdominal pain as well as nausea and emesis who has presented several times over the last 48 hours presenting again most recently 06/14/2025 with complaint of persistent ongoing abdominal discomfort although he improved earlier in the ED following interventions but when he got home he had recurrent discomfort with recurrent nausea and bouts of emesis noted to be nonbloody prompting ED return. Patient notes the abdominal discomfort is generalized and cramping and aching in nature especially with palpation increases. He rates the discomfort ranging from 6-10 out of 10 in severity. He notes because of the nausea and emesis he has not taken any of his medications recently. Current presentation with vital signs T98.3, heart rate 103, BP 182/109, respiratory rate 24, 100% on room air and prior to this earlier in the day workup included CBC with WBC 13, hemoglobin 13.1, MCV 87.3 with mild left shift, VBG with pH 7.43, PO255, O2 saturation 89% on room air, CMP with BUN/canaille 19/0.97, GFR 102, glucose 202, hepatic profile unremarkable, lipase 25, urinalysis the day prior 06/12/2025 with protein 100, glucose thousand, ketone 50, occult blood 150 with no evidence of UTI, UDS also the day prior 06/12/2025 with positive opiate and cannabis, CT imaging earlier in the day 06/13/2025 with concentric wall thickening of the urinary bladder otherwise no acute findings, CT the previous day 06/12/2025 with no acute findings. In the ED upon most recent presentation patient administered famotidine 20 mg IV x 1, Haldol 2 mg IV x 1 and viscous lidocaine. [facility] Medical History (Updated 06/14/25 @ 00:[address] Brenda Hollins MD) Hyperlipidemia Gastroparesis Former tobacco use Cannabis use disorder Hypertension Schizophrenia Anxiety Depression Migraines Type 2 diabetes mellitus with hyperglycemia Schizo-affective schizophrenia Bipolar 1 disorder Diabetes mellitus Home Medications ?Medication ?Instructions ?Recorded ?Last Taken ?Type pen needle, diabetic 32 gauge x #100 ea 03/29/24 Unkno wn Rx (BD Ultra-Fine Lizzeth Pen Needle) lisinopril 20 mg tablet 20 mg PO DAILY bp #30 tabs 0 05/01/24 Unknown Rx gabapentin 100 mg capsule 200 mg PO TID pain 06/06/24 Unknown History insulin pump cartridge,automated #1 ea 07/05/24 Unknow n Rx dose,BT with controller subcutaneous (Omnipod 5 G6 Intro Kit (Gen 5) subcutaneous cartridge with controller) pantoprazole 40 mg tablet,delayed 40 mg PO BID #60 tab s 08/15/24 Unknown Rx release insulin lispro 100 unit/mL 50 unit (0.5 mL) continuous 11/22/24 Unknown Rx subcutaneous solution (Humalog subcutaneous infusion . continuous U-100 Insulin) #45 mL buspirone 10 mg tablet 10 mg PO BID 01/18/25 Unknow n History rosuvastatin 5 mg tablet 5 mg PO QHS 01/18/25 Unknown History metoclopramide HCl 5 mg tablet 5 mg PO Q8H PRN PRN kevyn sea and 02/22/25 Unknown Rx (Reglan) vomiting #90 tabs amitriptyline 50 mg tablet 50 mg PO QHS 04/19/25 Unkno wn History blood-glucose sensor (Dexcom G7 #3 ea 04/19/25 Unknown Rx Sensor device) dextroamphetamine-amphetamine 10 1 tab PO BID 04/19/25 Unknown History mg tablet insulin pump cart,auto,BT,G6/7 #10 ea 04/19/25 Unknown Rx (Omnipod 5 G6-G7 Pods (Gen 5) subcutaneous cartridge) ziprasidone HCl 20 mg capsule 20 mg PO BID 04/19/25 Un known History dicyclomine 10 mg capsule 10 mg PO TID for abdominal p ain 06/01/25 Unknown Rx #90 caps sucralfate 1 gram tablet (Carafate) 1 g PO TID 2 weeks #42 tabs 06/13/25 Unknown Rx Allergy/AdvReac Type Severity Reaction Status Date / Time No Known Allergies Allergy Verified 06/13/25 22:32 Family History Mother Diabetes Sister Diabetes Father CVA (cerebral vascular accident) Myocardial infarction Surgical History H/O esophagogastroduodenoscopy No history of previous surgery Social History household members: spouse Smoking Status: Current some day smoker tobacco type: cigarettes how long ago did patient quit smoking: Quit 05/2024, prior smoked ~ 1/2 ppd. second hand exposure: No alcohol intake: former substance use type: marijuana ROS ROS Narrative Admission Review of Systems: CONSTITUTIONAL: No weight loss, fever, chills, + weakness or fatigue. HEENT: Eyes: No visual loss, blurred vision, double vision or yellow sclerae. Ears, Nose, Throat: No hearing loss, sneezing, congestion, runny nose or sore throat. SKIN: No rash or itching, lesions, wounds. CARDIOVASCULAR: No chest pain, chest pressure or chest discomfort, palpitations, edema, orthopnea, syncopal events. RESPIRATORY: No shortness of breath, cough or sputum, wheezing, hemoptysis. GASTROINTESTINAL: + Anorexia, nausea, emesis, abdominal pain. No diarrhea, melena, hematemesis, BRBPR. GENITOURINARY: No dysuria, frequency, urgency or retention. NEUROLOGICAL: No headache, dizziness, syncope, paralysis, ataxia, numbness or tingling in the extremities, focal weakness, change in bowel or bladder control, seizure. MUSCULOSKELETAL: No muscle, back pain, joint pain or stiffness. HEMATOLOGIC: No anemia, bleeding or bruising. LYMPHATICS: No enlarged nodes. No history of splenectomy. PSYCHIATRIC: + History of anxiety and depression/schizoaffective schizophrenia. ENDOCRINOLOGIC: No reports of sweating, cold or heat intolerance. No polyuria or polydipsia. ALLERGIES: No history of asthma, hives, eczema or rhinitis. Vital Signs Vital Signs Vital Signs: 06/13/25 22:32 06/14/25 00:07 Temperature 98.3 F 98.0 F Temperature Source Oral Oral Pulse Rate 103 H 101 H Respiratory Rate 24 H 16 Blood Pressure 182/109 H 152/93 H Blood Pressure Mean 133 112 Pulse Ox 100 100 Oxygen Delivery Method Room Air Room Air Weight Weight: 166 lb 14.4 oz Body Mass Index (BMI) 26.9 Physical Exam Narrative Physical Examination: General: Awake, alert, oriented x 3 and cooperative, seated upright in the ED bed, fatigued appearing, no acute distress noted. Skin: Normal color, normal turgor, no icterus, no cyanosis. HEENT: AT/NC, EOMI, PERRLA, mildly dry MM, no carotid bruits or JVD noted. Lungs: CTA bilaterally, moderate effort, mild decrease BL bases, no rales, ronchi or wheezing. Heart: Mildly tachycardic with regular rhythm; no gallop, rub audible. Abdomen: Soft, generalized discomfort with voluntary guarding, no rebound, mildly hyperactive BS, no appreciated HSM but difficult given pain with palpation diffusely Extremities: No cyanosis, clubbing, or edema. Neurological: Patient awake, alert, oriented as noted, cognitive function intact; pupils equally reactive to light and accommodation, cranial nerves gross normal, moving all 4 extremities, no focal deficits, strength moderately globally decreased secondary to acute presentation. Psychiatric: Affect appears fatigued, no acute evidence of depressive or anxiety feelings but does have underlying psychiatric history. Assessment & Plan Assessment/Plan (1) Intractable nausea and vomiting: PLAN: Plan The patient is a 39 y/o M w/ PMHx: Chronic cannabis use, Anxiety and Depression/Schizo-affective schizophrenia, Chronic migraines, IDDM with chronic neuropathy and chronic gastroparesis, Former Tobacco use, GERD with history of gastric ulcer with H. pylori status at that time, HTN, HLD with serial ED presentation secondary to persistent abdominal pain as well as nausea and emesis who has presented several times over the last 48 hours presenting again most recently 06/14/2025 with complaint of persistent ongoing abdominal discomfort although he improved earlier in the ED following interventions but when he got home he had recurrent discomfort with recurrent nausea and bouts of emesis noted to be nonbloody prompting ED return. #1. Intractable nausea and emesis with associated abdomina discomfort potentially secondary to gastritis versus cyclic emesis syndrome given positive recent cannabis on UDS versus gastroparesis related: Given ongoing intractable discomfort and nausea and emesis will admit to MS, maintain on IV fluids, will allow clear liquids only until clinically improving, will maintain on IV PPI, will continue to trend CBC, CMP, will place on scheduled Reglan to assist with symptoms in addition to as needed Haldol given intractability. #2. IDDM with chronic neuropathy, gastroparesis, potentially complicated #1: Given current presentation with intractable nausea and emesis will maintain on every 6 hours Accu-Cheks with insulin sliding scale, continue home insulin pending trending with hold if necessary, IV reglan as noted, holding oral home regimen. #3. Hypertension: If able to tolerate will continue home lisinopril regimen, additionally will have as needed IV hydralazine in the interim. #4. Anxiety and Depression/Schizo-affective schizophrenia: If able to tolerate will continue home psychiatric regimen, encourage continued outpatient follow-up and counseling as well as medications of appropriate. #5. Chronic cannabis use: Urine drug screen 06/12/2025 with positive cannabis, certainly could be as noted #1 cyclic emesis syndrome related, encouraged cannab is cessation. #6. Former Tobacco Abuse: Encouraged continued tobacco cessation. #7. GERD: Will maintain as noted above on IV Protonix. #8. Hyperlipidemia: Will continue patient on statin therapy. #9. DVT prophylaxis: SCDs, given ongoing intractable nausea and emesis and previous [place] tear will hold off on chemoprophylaxis. Charges/Coding Visit Charges Inpatient E&M: 05523 Init Hosp L2
--- OUTSIDE RECORDS SUMMARY | 2025-06-14 00:29 | XMS RPT_ITS | CCD ---
Author Organization [facility] Care Team Providers Care Drug Abuse Program Coordinator Name Role Phone Chelsey RN ASSESSMENT.[place] PULIDO Primary Care Provider PHYSICIAN, NONE Primary Care Physician Unavailab marianne Camarena WEATHER STRIP INSTALLER-C [place] Primary Care Provider Dr. Connie Hermosillo Emergency Provider [phone] Dr. Troy Wagoner Admit Provider Dr. Troy Wagoner Other Provider Dr. Shantell Alcaraz Attending Provider Dr. Shantell Alcaraz Other Provider [phone] Ellie, Dr. Devries Attending Provider Chelsey RN ASSESSMENT.[place] PULIDO Primary Care Provider SARAVANAN SANCHEZ MD Attending Unavailable PHYSICIAN, NONE Primary Care Unavailable JESSICA KILLIAN DO Attending Unavailable PHYSICIAN, NONE Primary Care Unavailable PHYSICIAN, NONE Primary Care Unavailable SARAVAANN SANCHEZ MD Attending Unavailable BROOKLYN BOSTON DO Attending Unavailable PHYSICIAN, NONE Primary Care Unavailable Chelsey WEATHER STRIP INSTALLER-C, [place] Primary Care Provider Ludin Sanderson MD Attending Provider Ludin Sanderson MD Emergency Provider Christian IDAS-Queenie Marshall Attending Provider Chelsey WEATHER STRIP INSTALLER-CAustin Referring Provider Chelsey WEATHER STRIP INSTALLER-C, [place] Primary Care Provider Chelsey WEATHER STRIP INSTALLER-C, [place] Referring Provider Christian DIAS-Queenie Marshall Attending Provider Ludin Sanderson MD Attending Provider Ludin Sanderson MD Emergency Provider Dr. Mushtaq Hernandez MD Attending Provider Dr. Jaycob Argueta DO Attending Provider KNOBLE, [place] Attending Unavailable KNOBLE, [place] Primary Care Unavailable KNOBLE, [place] Attending Unavailable KNOBLE, [place] Primary Care Unavailable KNOBLE, [place] Primary Care Unavailable PRAKASH OFNTANA Attending Unavailable KNOBLE, [place] Primary Care Unavailable [...] Unavailable KNOBLE, [place] Primary Care Unavailable Knoble WEATHER STRIP INSTALLER-C, [place] Primary Care Provider [phone] Chelsey WEATHER STRIP INSTALLER-CAustin Referring Provider [phone] subcutaneous solution (Humalog subcutaneous infusion .continuous U-100 [...] mg PO BID 01/18/25 01/18/25 His tory [facility] Medical History Gastroparesis Former tobacco use Cannabis [...] Neck: nor (more content not included)... Normal [facility] 25(OH)D3 [facility] 25-hydroxyvitamin D3 [Mass/Vol] 11.8 ng/mL Low 31.0-80.[address] [facility] Comment on above: Order Comment: Speci men Type: URINE SPECIMEN Ordering Facility: [facility] Address: [address] [place] [address] Result Comment: Clas sification of 25 [place] Vitamin D status: Deficiency/Insufficiency: < or = 30 ng/ml. Sufficiency/Optimal Levels: 31-80 ng/mL Toxicity: > 100 ng/mL. Test performed by chemiluminescent immunoassay. Performed By: #### L PG6013 #### [facility] CLIA [id number] [address] [place] [address] [place] Bilirub [facility] Bilirubin.conjugated [Mass/Vol] 0.1 mg/dL Normal <0.[address] [facility] Comment on above: Order Comment: Speci men Type: BLOOD SPECIMENOrdering Facility: [facility] Address: [address] [place] [address] Performed By: #### 1 5152-2, 33564-3 ####[facility] LABORATORYCLIA [id number] [address] [place] CBC W Auto Differential pane l (Bld)on 01-05-2025 Basophils (Bld) [#/Vol] 0.07 10*3/uL Normal <0.[address] [facility] Comment on above: Order Comment: Speci men Type: BLOOD SPECIMENOrdering Facility: [facility] Address: [address] [place] [address] Performed By: #### 5 7021-8 ####[facility] [id number] [place] [id number] [place] Basophils/100 WBC (Bld) 0.7 % Normal [facility] Comment on above: Order Comment: Speci men Type: BLOOD SPECIMENOrdering Facility: [facility] Address: [address] [place] [address] Performed By: #### 5 7021-8 ####[facility] HOSPITALWNCLIA [id number] [place] [address] [place] Differential cell count method Nom (Bld) Auto Normal [facility] Comment on above: Order Comment: Speci men Type: BLOOD SPECIMENOrdering Facility: [facility] Address: [address] [place] [address] Performed By: #### 5 7021-8 ####[facility]CL[facility] [id number] [place] [address] [place] Eosinophils (Bld) [#/Vol] 0.26 10*3/uL Normal <0.[address] [facility] Comment on above: Order Comment: Speci men Type: BLOOD SPECIMENOrdering Facility: [facility] Address: [address] [place] [address] Performed By: #### 5 7021-8 ####[facility]CL[facility] [id number] [place] [address] [place] Eosinophils/100 WBC (Bld) 2.7 % Normal [facility] Comment on above: Order Comment: Speci men Type: BLOOD SPECIMENOrdering Facility: [facility] Address: [address] [place] [address] Performed By: #### 5 7021-8 ####[facility] [id number] [place] [address] [place] Erythrocyte distribution width (RBC) [Ratio] 13.7 % Normal 11.5-15.[address] [facility] Comment on above: Order Comment: Speci men Type: BLOOD SPECIMENOrdering Facility: [facility] Address: [address] [place] [address] Performed By: #### 5 7021-8 ####[facility] MELODYSULY [id number] [place] [address] [place] Hematocrit (Bld) [Volume fraction] 39.5 % Normal 39.0-51.[address] [facility] Comment on above: Order Comment: Speci men Type: BLOOD SPECIMENOrdering Facility: [facility] Address: [address] [place] [address] Performed By: #### 5 7021-8 ####[facility]ERSUL[facility] [id number] [place] [address] [place] Hemoglobin (Bld) [Mass/Vol] 12.7 g/dL Low 13.0-17.[address] [facility] Comment on above: Order Comment: Speci men Type: BLOOD SPECIMENOrdering Facility: [facility] Address: [address] [place] [address] Performed By: #### 5 7021-8 ####[facility] [id number] [place] [address] [place] Immature granulocytes (Bld) [#/Vol] 10*3/uL Normal <0.[address] [facility] Comment on above: Order Comment: Speci men Type: BLOOD SPECIMENOrdering Facility: [facility] Address: [address] [place] [address] Performed By: #### 5 7021-8 ####[facility] [id number] [place] [address] [place] Immature granulocytes/100 WBC (Bld) 0.2 % Normal [facility] Comment on above: Order Comment: Speci men Type: BLOOD SPECIMENOrdering Facility: [facility] Address: [address] [place] [address] Performed By: #### 5 7021-8 ####[facility] HOSPITALWNCLIA [id number] [place] [address] [place] Lymphocytes (Bld) [#/Vol] 2.72 10*3/uL Normal 1.00-4.[address] [facility] Comment on above: Order Comment: Speci men Type: BLOOD SPECIMENOrdering Facility: [facility] Address: [address] [place] [address] Performed By: #### 5 7021-8 ####[facility]CL[facility] [id number] [place] [address] [place] Lymphocytes/100 WBC (Bld) 27.7 % Normal [facility] Comment on above: Order Comment: Speci men Type: BLOOD SPECIMENOrdering Facility: [facility] Address: [address] [place] [address] Performed By: #### 5 7021-8 ####[facility]ERNCLIA [id number] [place] [address] [place] MCH (RBC) [Entitic mass] 28.8 pg Normal 26.0-34.[address] [facility] Comment on above: Order Comment: Speci men Type: BLOOD SPECIMENOrdering Facility: [facility] Address: [address] [place] [address] Performed By: #### 5 7021-8 ####[facility] [id number] [place] [address] [place] MCHC (RBC) [Mass/Vol] 32.2 g/dL Normal 30.5-36.0 [facility] Comment on above: Order Comment: Speci men Type: BLOOD SPECIMENOrdering Facility: [facility] Address: [address] [place] [address] Performed By: #### 5 7021-8 ####[facility]CLIA [id number] [place] [address] [place] MCV (RBC) [Entitic vol] 89.6 fL Normal 80.0-100.[address] [facility] Comment on above: Order Comment: Speci men Type: BLOOD SPECIMENOrdering Facility: [facility] Address: [address] [place] [address] Performed By: #### 5 7021-8 ####[facility] HOSPITALWSTEPHANELIA [id number] [place] [address] [place] Monocytes (Bld) [#/Vol] 0.84 10*3/uL Normal <0.[address] [facility] Comment on above: Order Comment: Speci men Type: BLOOD SPECIMENOrdering Facility: [facility] Address: [address] [place] [address] Performed By: #### 5 7021-8 ####[facility] [id number] [place] [address] [place] Monocytes/100 WBC (Bld) 8.6 % Normal [facility] Comment on above: Order Comment: Speci men Type: BLOOD SPECIMENOrdering Facility: [facility] Address: [address] [place] [address] Performed By: #### 5 7021-8 ####[facility]ENTERSTEPHANELIA [id number] [place] [address] [place] Neutrophils (Bld) [#/Vol] 5.90 10*3/uL Normal 1.45-7.[address] [facility] Comment on above: Order Comment: Speci men Type: BLOOD SPECIMENOrdering Facility: [facility] Address: [address] [place] [address] Performed By: #### 5 7021-8 ####[facility]ERNCLIA [id number] [place] [address] [place] Neutrophils/100 WBC (Bld) 60.1 % Normal [facility] Comment on above: Order Comment: Speci men Type: BLOOD SPECIMENOrdering Facility: [facility] Address: [address] [place] [address] Performed By: #### 5 7021-8 ####[facility] [id number] [place] [address] [place] Nucleated RBC (Bld) [#/Vol] 10*3/uL Normal <0.[address] [facility] Comment on above: Order Comment: Speci men Type: BLOOD SPECIMENOrdering Facility: [facility] Address: [address] [place] [address] Performed By: #### 5 7021-8 ####[facility] [id number] [place] [address] [place] Nucleated RBC/100 WBC (Bld) [Ratio] 0.0 /100 WBC Normal [facility] Comment on above: Order Comment: Speci men Type: BLOOD SPECIMENOrdering Facility: [facility] Address: [address] [place] [address] Performed By: #### 5 7021-8 ####[facility]ENTERNCLIA [id number] [place] [address] [place] Platelet mean volume (Bld) [Entitic vol] 10.3 fL Normal 9.0-12.[address] [facility] Comment on above: Order Comment: Speci men Type: BLOOD SPECIMENOrdering Facility: [facility] Address: [address] [place] [address] Performed By: #### 5 7021-8 ####[facility] [id number] [place] [address] [place] Platelets (Bld) [#/Vol] 336 10*3/uL Normal 150-[address] [facility] Comment on above: Order Comment: Speci men Type: BLOOD SPECIMENOrdering Facility: [facility] Address: [address] [place] [address] Performed By: #### 5 7021-8 ####[facility] [id number] [place] [address] [place] RBC (Bld) [#/Vol] 4.41 10*6/uL Normal 4.20-6.00 [facility] Comment on above: Order Comment: Speci men Type: BLOOD SPECIMENOrdering Facility: [facility] Address: [address] [place] [address] Performed By: #### 5 7021-8 ####[facility] [id number] [place] [address] [place] WBC (Bld) [#/Vol] 9.81 10*3/uL Normal 3.70-11.00 [facility] Comment on above: Order Comment: Speci men Type: BLOOD SPECIMENOrdering Facility: [facility] Address: [address] [place] [address] Performed By: #### 5 7021-8 ####[facility] [id number] [place] [address] [place] Comprehensive metabolic 2000 panelon 01-05-2025 Albumin [Mass/Vol] 4.3 g/dL Normal 3.9-4.9 [facility] Comment on above: Order Comment: Speci men Type: BLOOD SPECIMENOrdering Facility: [facility] Address: [address] [place] [address] Performed By: #### 1 5152-2, 31654-7 ####[facility] LABORATORYCLIA [id number] [place] [address] [place] ALP [Catalytic activity/Vol] 125 U/L High 38-[address] [facility] Comment on above: Order Comment: Speci men Type: BLOOD SPECIMENOrdering Facility: [facility] Address: [address] [place] [address] Performed By: #### 1 5152-2, 83978-1 ####[facility]ORATORYCLIA [id number] [place] [address] [place] ALT With P-5'-P [Catalytic activity/Vol] 50 U/L Normal 10-[address] [facility] Comment on above: Order Comment: Speci men Type: BLOOD SPECIMENOrdering Facility: [facility] Address: [address] [place] [address] Performed By: #### 1 5152-2, ####[facility]ORATORYCLIA [id number] [place] [address] [place] Anion gap [Moles/Vol] 12 mmol/L Normal 8-15 [facility] Comment on above: Order Comment: Speci men Type: BLOOD SPECIMENOrdering Facility: [facility] Address: [address] [place] [address] Performed By: #### 1 5152-2, ####[facility]ORATORYCLIA [id number] [place] [address] [place] AST With P-5'-P [Catalytic activity/Vol] 68 U/L High 14-[address] [facility] Comment on above: Order Comment: Speci men Type: BLOOD SPECIMENOrdering Facility: [facility] Address: [address] [place] [address] Performed By: #### 1 5152-2, ####[facility]ORATORYCLIA [id number] [place] [address] [place] Bilirubin [Mass/Vol] 0.2 mg/dL Normal 0.2-1.3 [facility] Comment on above: Order Comment: Speci men Type: BLOOD SPECIMENOrdering Facility: [facility] Address: [address] [place] [address] Performed By: #### 1 5152-2, 58533-6 ####[facility]ORATORYCLIA [id number] [place] [address] [place] Calcium [Mass/Vol] 10.1 mg/dL Normal 8.5-10.2 [facility] Comment on above: Order Comment: Speci men Type: BLOOD SPECIMENOrdering Facility: [facility] Address: [address] [place] [address] Performed By: #### 1 5152-2, 53213-9 ####[facility]ORATORYCLIA [id number] [place] [address] [place] Chloride [Moles/Vol] 103 mmol/L Normal 98-107 [facility] Comment on above: Order Comment: Speci men Type: BLOOD SPECIMENOrdering Facility: [facility] Address: [address] [place] [address] Performed By: #### 1 5152-2, 26116-0 ####[facility]ORATORYCLIA [id number] [place] [address] [place] CO2 [Moles/Vol] 25 mmol/L Normal 22-[address] [facility] Comment on above: Order Comment: Speci men Type: BLOOD SPECIMENOrdering Facility: [facility] Address: [address] [place] [address] Performed By: #### 1 5152-2, 13545-8 ####[facility]ORATORYCLIA [id number] [place] [address] [place] Creatinine [Mass/Vol] 0.89 mg/dL Normal 0.73-1.22 [facility] Comment on above: Order Comment: Speci men Type: BLOOD SPECIMENOrdering Facility: [facility] Address: [address] [place] [address] Performed By: #### 1 5152-2, 59668-4 ####[facility] GENERAL LABORATORYCLIA [id number] [place] [address] [place] Creatinine and Glomerular filtration rate.predicted panel (S/P/Bld) 112 mL/min/1.73m??? Normal >=[address] [facility] Comment on above: Order Comment: Speci men Type: BLOOD SPECIMENOrdering Facility: [facility] Address: [address] [place] [address], [place] [address] Result Comment: Beverly mated Glomerular Filtration Rate [...] actual GFR. Performed By: #### 1 5152-2, 90598-5 ####[facility] LABORATORYCLIA [id number] [place] [address] [place] Glucose [Mass/Vol] 190 mg/dL High 74-99 [facility] Comment on above: Order Comment: Speci men Type: BLOOD SPECIMENOrdering Facility: [facility] Address: [address] [place] [address] Result Comment: The [place] Diabetes Association (ADA) provides guidance for cutoff [...] Standards of Medical Care in Diabetes 2016, [place] Diabetes Association. Diabetes Care. 2016.39(Suppl 1). Performed By: #### 1 5152-2, 96450-3 ####[facility] LABORATORYCLIA [id number] [place] [address] [place] Potassium [Moles/Vol] 4.3 mmol/L Normal 3.7-5.1 [facility] Comment on above: Order Comment: Speci men Type: BLOOD SPECIMENOrdering Facility: [facility] Address: [address] [place] [address] Performed By: #### 1 5152-2, 62495-6 ####[facility] LABORATORYCLIA [id number] [address] [place] Protein [Mass/Vol] 7.5 g/dL Normal 6.3-8.0 [facility] Comment on above: Order Comment: Speci men Type: BLOOD SPECIMENOrdering Facility: [facility] Address: [address] [place] [address] Performed By: #### 1 5152-2, 75685-3 ####[facility] LABORATORYCLIA [id number] [place] [address] [place] Sodium [Moles/Vol] 140 mmol/L Normal 136-144 [facility] Comment on above: Order Comment: Speci men Type: BLOOD SPECIMENOrdering Facility: [facility] Address: [address] [place] [address] Performed By: #### 1 5152-2, 49650-8 ####[facility] LABORATORYCLIA [id number] [address] STATES OF [facility] Urea nitrogen [Mass/Vol] 20 mg/dL Normal 9-[address] [facility] Comment on above: Order Comment: Speci men Type: BLOOD SPECIMENOrdering Facility: [facility] Address: [address] [place] [address] Performed By: #### 1 5152-2, 07709-7 ####[facility] LABORATORYCLIA [id number] [address] [place] HAV IgM Ser Qlon 01-05-2025 HAV IgM Ql (S) Negative Normal Negative [facility] Comment on above: Order Comment: Speci men Type: BLOOD SPECIMENOrdering Facility: [facility] Address: [address] [place] [address] Result Comment: No e vidence of recent infection with Hepatitis A virus. Performed By: #### 3 1201-7, 5195-3, 52539-7, 33967-8, 65150-3 ####[facility] LABCLIA [id number] [place] [address] [place] HBV core IgM Ser Qlon 2024 HBV core IgM Ql (S) Negative Normal Negative [facility] Comment on above: Order Comment: Speci men Type: BLOOD SPECIMENOrdering Facility: [facility] Address: [address] [place] [address], [place] [address] Result Comment: No e vidence of recent infection with Hepatitis B virus. Should recent infection be suspected, repeat testing may be considered 3-4 weeks after this draw. Performed By: #### 3 1201-7, 5195-3, 40343-3, 54568-7, 73998-1 ####[facility] LABCLIA [id number] [place] [address] [place] HBV surface Ag Ser Qlon 12-10 HBV surface Ag Ql (S) Negative Normal Negative [facility] Comment on above: Order Comment: Speci men Type: BLOOD SPECIMENOrdering Facility: [facility] Address: [address] [place] [address], [place] [address] Performed By: #### 3 1201-7, 5195-3, 68866-9, 50250-8, 63416-5 ####[facility] LABIA [id number] [address] [place] HCV Ab Ser Qlon 01-05-2025 HCV Ab Ql (S) Negative Normal Negative [facility] Comment on above: Order Comment: Speci men Type: BLOOD SPECIMENOrdering Facility: [facility] Address: [address] [place] [address], [place] [address] Result Comment: The result suggests no evidence of active infection with Hepatitis C virus. Should recent infection be suspected, repeat testing may be considered 4-6 weeks after this draw. Performed By: #### 1 6128-1 ####[facility] LABCLIA [id number] [place] [address] [place] HIV 1+2 Ab IA Qlon HIV 1 and 2 Ab IA.rapid Nom (S/P/Bld) Normal [facility] Comment on above: Order Comment: Speci men Type: BLOOD SPECIMENOrdering Facility: [facility] Address: [address] [place] [address] Result Comment: Test not indicated. Performed By: #### 3 1201-7, 5195-3, 23486-3, 46990-3, 63574-8 ####[facility] LABCLIA [id number] [place] [address] [place] HIV 1+2 Ab+HIV1 p24 Ag IA Ql Non-Reactive Normal Nonreactive [facility] Comment on above: Order Comment: Speci men Type: BLOOD SPECIMENOrdering Facility: [facility] Address: [address] [place] [address], [place] [address] Performed By: #### 3 1201-7, 5195-3, 69748-5, 97997-8, 01471-7 ####[facility] LABCLIA [id number] [address] [place] HIV immunoassay testing algorithm interpretation (S/P/Bld) [Interp] Normal [facility] Comment on above: Order Comment: Speci men Type: BLOOD SPECIMENOrdering Facility: [facility] Address: [address] [place] [address] Result Comment: No e vidence of HIV-1 or HIV-2 infection. Should recent infection be suspected, repeat testing may be considered 2-3 weeks after this draw. [place] Rev. Code 3701.243(E): This information has been [...] diagnoses. Performed By: #### 3 1201-7, 5195-3, 71658-8, 44120-9, 58895-7 ####[facility] LABCLIA [id number] OF [facility] HbA1c (Bld)on 01-05-2025 Average glucose Estimated from glycated hemoglobin (Bld) [Mass/Vol] 220 mg/dL Normal [facility] Comment on above: Order Comment: Ruthi men Type: BLOOD SPECIMEN [facility] Address: [address] [place] [address] Result Comment: eAG: (Estimated average glucose) is a calculated value from HgbA1c and is patient accounting representative of the average blood glucose level in the last 2-3 month period. Performed By: #### 5 5454-3 #### [facility] CLIA [id number] OF [facility] HbA1c (Bld) [Mass fraction] 9.3 % High 4.3-5.[address] [facility] Comment on above: Order Comment: Speci reji Type: BLOOD SPECIMEN [facility] Address: [address] [place] [address] Result Comment: [place] Diabetes Association guidelines indicate that patients with HgbA1c in the range 5.7-6.4% are at increased risk for development of diabetes, and intervention by lifestyle modification may be beneficial. HgbA1c greater or equal to 6.5% is considered diagnostic of diabetes. Performed By: #### 5 5454-3 #### [facility] [facility] CLIA [id number] [address] [place] Reagin and Treponema pallidu m IgG and IgM [Interp]on 01-05-2025 T. pallidum IgG+IgM IA Ql (S) Non-Reactive Normal Nonreactive [facility] Comment on above: Order Comment: Speci men Type: BLOOD SPECIMENOrdering Facility: [facility] Address: [address] [place] [address] Performed By: #### 3 1201-7, 5195-3, 97096-6, 92137-5, 92400-9 ####[facility] [id number] [address] [id number], [place] [address] [place] Reagin+T pallidum IgG+IgM Se rPl-Impon 01-05-2025 Reagin and Treponema pallidum IgG and IgM [Interp] Cannot exclude recent Treponemal infection if specimen collected within 7-10 days after appearance of suspect lesions or 2-3 weeks after an exposure. Clinical correlation is required. Normal [facility] Comment on above: Order Comment: Speci men Type: BLOOD SPECIMENOrdering Facility: [facility] Address: [address] [place] [address] Performed By: #### 3 1201-7, 5195-3, 36547-3, 58138-1, 73873-5 ####[facility] [id number] [place] [address] [place] T3 SerPl-mCncon 01-05-2025 T3 [Mass/Vol] 140 ng/dL Normal 79-[address] [facility] Comment on above: Order Comment: Speci men Type: URINE SPECIMEN [facility]ing Facility: [facility] Address: [address] [place] [address] Performed By: #### L [id number] #### [facility] CLIA [id number] [address] [place] [address] [place] T3Free SerPl-mCncon 01-05-20 25 Free T3 [Mass/Vol] 3.4 pg/mL Normal 2.3-4.1 [facility] Comment on above: Order Comment: Speci men Type: URINE SPECIMEN Ordering Facility: [facility] Address: [address] [place] [address] Performed By: #### L [id number] #### [facility] CLIA [id number] [address] [place] [address] [place] T4 Free SerPl-mCncon 025 Free T4 [Mass/Vol] 1.1 ng/dL Normal 0.9-1.7 [facility] Comment on above: Order Comment: Speci men Type: URINE SPECIMEN Ordering Facility: [facility] Address: [address] [place] [address] Performed By: #### L [id number] #### [facility] CLIA [id number] [address] [place] [address] [place] T4 SerPl-mCncon 01-05-2025 T4 [Mass/Vol] 7.7 ug/dL Normal 5.5-10.[address] [facility] Comment on above: Order Comment: Speci men Type: URINE SPECIMEN Ordering Facility: [facility] Address: [address] [place] [address] Performed By: #### L [id number] #### [facility] CLIA [id number] [address] [place] [address] [place] TSH SerPl-aCncon 01-05-2025 TSH Qn 1.020 m[IU]/L Normal 0.270-4.[address] [facility] Comment on above: Order Comment: Speci men Type: URINE SPECIMEN Ordering Facility: [facility] Address: [address] [place] [address] Performed By: #### L [id number] #### [facility] CLIA [id number] [address] [place] [address] [place] CNOVon 12-28-2024 CNOV Office Visit ([facility] ) -- [place] GAMEZ ([id number]) 1985 M T Date Time Provider Department 12/28/24 10:20 AM AUSTIN CAMARENA During your visit today, we recorded the following information about you: Pulse Blood pressure Weight 94/minute 128/84 69.4 kg Austin Camarena APRN.CAD ADMINISTRATOR 12/28/2024 12:05 PM Signed Chief Complaint No [...] XR daily once tox screen results. Austin Camarena, RN ASSESSMENT.CAD ADMINISTRATOR Allergies As of Date: 12/28/2024 (No Known Allergies) Date Reviewed: 12/28/2024 Reviewed by: Lisseth Morel MA - Fully Assessed Reason for Visit: Follow Up [171] Primary Visit Diagnosis:Medication management [Z79.899] Other Visit Diagnosis:ADHD (attention deficit hyperactivity disorder), predominantly hyperactive impulsive type [F90.1] Order(s):TOXICOLO (more content not included)... Normal [facility] QUANT TOX PANELon 12-28-2024 2-Vomepecwvf-5,5-Dime thyl-3,3-Diphenylpyrr olidine (EDDP) Confirm (U) [Mass/Vol] <25 Normal <[address] [facility] Comment on above: Order Comment: Speci men Type: URINE SPECIMEN [facility]ing Facility: [facility] Address: [address] [place] [address] Result Comment: 2-Pcgpyzcduw-7,5-trebdusj-6,3-diphenylpyrrolidine (EDDP) is a metabolite of methadone. Performed By: #### L [id number] #### [facility] CLIA [id number] [address] [place] [address] [place] 6-Monoacetylmorphine (6-BAL) (U) [Mass/Vol] <5 Normal <[address] [facility] Comment on above: Order Comment: Speci men Type: URINE SPECIMEN Ordering Facility: [facility] Address: [address] [place] [address] Result Comment: 6-Mo noacetylmorphine is a metabolite of heroin. Performed By: #### L [id number] #### [facility] CLIA [id number] [address] [place] [address] [place] Amphetamine Confirm (U) [Mass/Vol] <25 Normal <[address] [facility] Comment on above: Order Comment: Speci men Type: URINE SPECIMEN Ordering Facility: [facility] Address: [address] [place] [address] Result Comment: Meth ylphenidate does not contain or metabolize to amphetamine. Performed By: #### L [id number] #### [facility] CLIA [id number] [address] [place] [address] [place] Benzoylecgonine Confirm (U) [Mass/Vol] <25 Normal <[address] [facility] Comment on above: Order Comment: Speci men Type: URINE SPECIMEN Ordering Facility: [facility] Address: [address] [place] [address] Result Comment: Igor oylecgonine is a metabolite of cocaine. Performed By: #### L [id number] #### [facility] CLIA [id number] [address] [place] [address] [place] Buprenorphine (U) [Mass/Vol] <5 Normal <[address] [facility] Comment on above: Order Comment: Speci men Type: URINE SPECIMEN Ordering Facility: [facility] Address: [address] [place] [address] Result Comment: Bertha ents using transdermal formulations of buprenorphine may yield undetectable buprenorphine and norbuprenorphine urine concentrations. Performed By: #### L [id number] #### [facility] CLIA [id number] [address] [place] [address] [place] Carboxy tetrahydrocannabinol (U) [Mass/Vol] 75 ng/mL High <[address] [facility] Comment on above: Order Comment: Speci men Type: URINE SPECIMEN Ordering Facility: [facility] Address: [address] [place] [address] Result Comment: 11-N gz-7-thtdlwa-tetrahydrocannabinol (sxmro-7-dmtnfiw-THC) is a metabolite of pizef-3-qgpzmwigvafwlmvtfdtu (THC). Presence of lkpms-6-tytfopn-THC is consistent with use of a THC-containing drug. This test does not differentiate between delta-8 or delta-9 carboxy-THC. Performed By: #### L [id number] #### [facility] CLIA [id number] [address] [place] [address] [place] Codeine Confirm (U) [Mass/Vol] <25 Normal <[address] [facility] Comment on above: Order Comment: Speci men Type: URINE SPECIMEN [facility]ing Facility: [facility] Address: [address] [place] [address] Performed By: #### L [id number] #### [facility] CLIA [id number] [address] [place] [address] [place] fentaNYL Confirm (U) [Mass/Vol] <1 Normal <[address] [facility] Comment on above: Order Comment: Speci men Type: URINE SPECIMEN Ordering Facility: [facility] Address: [address] [place] [address] Performed By: #### L [id number] #### [facility] CLIA [id number] [address] [place] [address] [place] HYDROcodone Confirm (U) [Mass/Vol] <25 Normal <[address] [facility] Comment on above: Order Comment: Speci men Type: URINE SPECIMEN Ordering Facility: [facility] Address: [address] [place] [address] Performed By: #### L [id number] #### [facility] CLIA [id number] [address] [place] [address] [place] HYDROmorphone Confirm (U) [Mass/Vol] <25 Normal <[address] [facility] Comment on above: Order Comment: Speci men Type: URINE SPECIMEN Ordering Facility: [facility] Address: [address] [place] [address] Performed By: #### L [id number] #### [facility] CLIA [id number] [address] [place] [address] [place] MDA, UR <25 Normal <[address] [facility] Comment on above: Order Comment: Speci men Type: URINE SPECIMEN Ordering Facility: [facility] Address: [address] [place] [address] Result Comment: 3,4 Methylenedioxyamphetamine is also known as MDA. Performed By: #### L [id number] #### [facility] CLIA [id number] [address] [place] [address] [place] MDEA, UR <25 Normal <[address] [facility] Comment on above: Order Comment: Speci men Type: URINE SPECIMEN Ordering Facility: [facility] Address: [address] [place] [address] Result Comment: 3,4 Akeqdeetfwccig-Z-sutoeymgtwfqypqb is also known as MDEA. Performed By: #### L [id number] #### [facility] CLIA [id number] [address] [place] [address] [place] MDMA, UR <25 Normal <[address] [facility] Comment on above: Order Comment: Speci men Type: URINE SPECIMEN Ordering Facility: [facility] Address: [address] [place] [address] Result Comment: 3,4- Methylenedioxymethamphetamine is also known as MDMA. Performed By: #### L [id number] #### [facility] CLIA [id number] [address] [place] [address] [place] Methadone Confirm (U) [Mass/Vol] <25 Normal <[address] [facility] Comment on above: Order Comment: Speci men Type: URINE SPECIMEN Ordering Facility: [facility] Address: [address] [place] [address] Performed By: #### L [id number] #### [facility] CLIA [id number] [address] [place] [address] [place] Methamphetamine Confirm (U) [Mass/Vol] <25 Normal <[address] [facility] Comment on above: Order Comment: Speci men Type: URINE SPECIMEN Ordering Facility: [facility] Address: [address] [place] [address] Performed By: #### L [id number] #### [facility] CLIA [id number] [address] [place] [address] [place] Morphine Confirm (U) [Mass/Vol] <25 Normal <[address] [facility] Comment on above: Order Comment: Speci men Type: URINE SPECIMEN Ordering Facility: [facility] Address: [address] [place] [address] Performed By: #### L [id number] #### [facility] CLIA [id number] [address] [place] [address] [place] Norbuprenorphine (U) [Mass/Vol] <10 Normal <[address] [facility] Comment on above: Order Comment: Speci men Type: URINE SPECIMEN Ordering Facility: [facility] Address: [address] [place] [address] Result Comment: Norb uprenorphine is a metabolite of buprenorphine. Patients using transdermal formulations of buprenorphine may yield undetectable buprenorphine and norbuprenorphine urine concentrations. Performed By: #### L [id number] #### [facility] CLIA [id number] [address] [place] [address] [place] Norfentanyl Confirm (U) [Mass/Vol] <1 Normal <[address] [facility] Comment on above: Order Comment: Speci men Type: URINE SPECIMEN Ordering Facility: [facility] Address: [address] [place] [address] Result Comment: Norf entanyl is a metabolite of fentanyl. Performed By: #### L [id number] #### [facility] CLIA [id number] [address] [place] [address] [place] NORHYDROCODONE, UR <25 Normal <25 [facility] Comment on above: Order Comment: Speci men Type: URINE SPECIMEN Ordering Facility: [facility] Address: [address] [place] [address] Result Comment: Norh ydrocodone is a metabolite of hydrocodone. Performed By: #### L [id number] #### [facility] CLIA [id number] [address] [place], [place] [address] [place] NOROXYCODONE, UR <25 Normal <25 [facility] Comment on above: Order Comment: Speci men Type: URINE SPECIMEN Ordering Facility: [facility] Address: [address] [place] [address] Result Comment: Noro xycodone is a metabolite of oxycodone. Performed By: #### L [id number] #### [facility] CLIA [id number] [address] [place] [address] [place] NOROXYMORPHONE, UR <25 Normal <25 [facility] Comment on above: Order Comment: Speci men Type: URINE SPECIMEN Ordering Facility: [facility] Address: [address] [place] [address] Result Comment: Noro xymorphone is a metabolite of oxymorphone and oxycodone and a minor metabolite of naltrexone and naloxone. Performed By: #### L [id number] #### [facility] CLIA [id number] [address] [place] [address] [place] Nortramadol (U) [Mass/Vol] <25 Normal <[address] [facility] Comment on above: Order Comment: Speci men Type: URINE SPECIMEN Ordering Facility: [facility] Address: [address] [place] [address] Result Comment: O-de smethyltramadol is a metabolite of tramadol. Performed By: #### L [id number] #### [facility] CLIA [id number] [address] [place] [address] [place] NOTE, UR TOXICOLOGY PANEL Normal [facility] Comment on above: Order Comment: Speci men Type: URINE SPECIMEN Ordering Facility: [facility] Address: [address] [place] [address] Result Comment: For medical purposes only. Not valid for legal or forensic purposes. This test was developed, and its performance characteristics determined by the [facility] Department of Pathology and Laboratory Medicine. It has not been cleared or approved by the FDA. The [facility] Department of Pathology and Laboratory Medicine is regulated under CLIA as qualified to perform high-complexity testing. This test is used for clinical purposes. It should not be regarded as investigational or for research. Performed By: #### L [id number] #### [facility] CLIA [id number] [address] [place], [place] [address] [place] oxyCODONE Confirm (U) [Mass/Vol] <25 Normal <[address] [facility] Comment on above: Order Comment: Speci men Type: URINE SPECIMEN Ordering Facility: [facility] Address: [address] [place] [address] Performed By: #### L [id number] #### [facility] CLIA [id number] [address] [place] [address] [place] oxyMORphone Confirm (U) [Mass/Vol] <25 Normal <[address] [facility] Comment on above: Order Comment: Speci men Type: URINE SPECIMEN Ordering Facility: [facility] Address: [address] [place] [address] Performed By: #### L [id number] #### [facility] CLIA [id number] [address] [place] [address] [place] Phencyclidine Confirm (U) [Mass/Vol] <10 Normal <[address] [facility] Comment on above: Order Comment: Speci men Type: URINE SPECIMEN Ordering Facility: [facility] Address: [address] [place] [address] Result Comment: Phen cyclidine is also known as PCP. Performed By: #### L [id number] #### [facility] CLIA [id number] [address] [place] [address] [place] PHENTERMINE, UR <25 Normal <[address] [facility] Comment on above: Order Comment: Speci men Type: URINE SPECIMEN Ordering Facility: [facility] Address: [address] [place] [address] Performed By: #### L [id number] #### [facility] CLIA [id number] [address] [place] [address] [place] traMADol Confirm (U) [Mass/Vol] <25 Normal <[address] [facility] Comment on above: Order Comment: Speci men Type: URINE SPECIMEN Ordering Facility: [facility] Address: [address] [place] [address] Performed By: #### L [id number] #### [facility] CLIA [id number] [address] [place] [id number] [place] SPECIMEN VALIDITY, URINEon 0 2- CREATININE,URINE 288.8 mg/dL Normal 20.0-300.0 [facility] Comment on above: Order Comment: Speci men Type: URINE SPECIMEN Ordering Facility: [facility] Address: [address] [place] [address] Performed By: #### L [id number] #### [facility] CLIA [id number] [address] [place] [address] [place] NITRITES,URINE 52 mg/L Normal <[address] [facility] Comment on above: Order Comment: Speci men Type: URINE SPECIMEN Ordering Facility: [facility] Address: [address] [place] [address] Performed By: #### L [id number] #### [facility] CLIA [id number] [address] [place] [address] [place] OXIDANTS,URINE <38 Normal <[address] [facility] Comment on above: Order Comment: Speci men Type: URINE SPECIMEN Ordering Facility: [facility] Address: [address] [place] [address] Performed By: #### L [id number] #### [facility] CLIA [id number] [address] [place] [address] [place] pH (U) 5.7 [pH] Normal 4.5-8.[address] [facility] Comment on above: Order Comment: Speci men Type: URINE SPECIMEN Ordering Facility: [facility] Address: [address] [place] [address] Performed By: #### L [id number] #### [facility] CLIA [id number] [address] [place] [address] [place] SPEC GRAVITY,UR 1.024 Normal 1.003-1.035 [facility] Comment on above: Order Comment: Speci men Type: URINE SPECIMEN Ordering Facility: [facility] Address: [address] [place] [address] Performed By: #### L [id number] #### [facility] CLIA [id number] [address] [place] [address] [place] SPECIMEN VALIDITY QUALITY Specimen quality results within acceptable limits Normal [facility] Comment on above: Order Comment: Speci men Type: URINE SPECIMEN Ordering Facility: [facility] Address: [address] [place] [address] Performed By: #### L [id number] #### [facility] CLIA [id number] [address] [place] [address] [place] TOXICOLOGY SCREEN, ROUTINE U RINEon 12-28-2024 Amphetamines Confirm (U) [Mass/Vol] Negative Normal Negative [facility] Comment on above: Order Comment: Speci men Type: URINE SPECIMENOrdering Facility: [facility] Address: [address] [place] [address] Result Comment: Cuto ff threshold at 1000 ng/mL. Performed By: #### U TOX2 ####[facility] [id number] [place] [address] [place] BARBITURATES, URINE Negative Normal Negative [facility] Comment on above: Order Comment: Speci men Type: URINE SPECIMENOrdering Facility: [facility] Address: [address] [place] [address] Result Comment: Cuto ff threshold at 200 ng/mL. Performed By: #### U TOX2 ####[facility] [id number] [place] [address] [place] BENZODIAZEPINES, UR Negative Normal Negative [facility] Comment on above: Order Comment: Speci men Type: URINE SPECIMENOrdering Facility: [facility] Address: [address] [place] [address] Result Comment: Cuto ff threshold at 200 ng/mL. Performed By: #### U TOX2 ####[facility] [id number] [place] [address] [place] Cannabinoids Screen Ql (U) Positive Abnormal Negative [facility] Comment on above: Order Comment: Speci men Type: URINE SPECIMENOrdering Facility: [facility] Address: [address] [place] [address] Result Comment: Cuto ff threshold at 50 ng/mL. Performed By: #### U TOX2 ####[facility] [id number] [place] [address] [place] Cocaine Ql (U) Negative Normal Negative [facility] Comment on above: Order Comment: Speci men Type: URINE SPECIMENOrdering Facility: [facility] Address: [address] [place] [address] Result Comment: Cuto ff threshold at 300 ng/mL. Performed By: #### U TOX2 ####[facility] [id number] [place] [address] [place] Ethanol (U) [Mass/Vol] <11 Normal <[address] [facility] Comment on above: Order Comment: Speci men Type: URINE SPECIMENOrdering Facility: [facility] Address: [address] [place] [address] Performed By: #### U TOX2 ####[facility] [id number] [place] [address] [place] Opiates Screen Ql (U) Negative Normal Negative [facility] Comment on above: Order Comment: Speci men Type: URINE SPECIMENOrdering Facility: [facility] Address: [address] [place] [address] Result Comment: Cuto ff threshold at 300 ng/mL. Performed By: #### U TOX2 ####[facility] [id number] [place] [address] [place] oxyCODONE cutoff Screen (U) [Mass/Vol] Negative Normal Negative [facility] Comment on above: Order Comment: Speci men Type: URINE SPECIMENOrdering Facility: [facility] Address: [address] [place] [address] Result Comment: Cuto ff threshold at 100 ng/mL. Performed By: #### U TOX2 ####[facility] [id number] [address] [place] Phencyclidine Ql (U) Negative Normal Negative [facility] Comment on above: Order Comment: Speci men Type: URINE SPECIMENOrdering Facility: [facility] Address: [address] [place] [address] Result Comment: Cuto ff threshold at 25 ng/mL. Performed By: #### U TOX2 ####[facility] [id number] [address] [place] CNOVon 12-11-2024 [facility] [place] [facility] ([id number]) 1985 [facility] Date Time Provider Department 12/11/24 9:20 AM [facility] During your visit today, we recorded the following information about you: Pulse Respiration Blood pressure Weight 89/minute 14/minute 124/88 70.8 kg Austin Camarena, RN ASSESSMENT.CAD ADMINISTRATOR 12/11/2024 9:21 AM Signed Chief Complaint Patient [...] exercise - LISINOPRIL 20 MG TABLET Austin Camarena, RN ASSESSMENT.CAD ADMINISTRATOR Allergies As of Date: 12/11/2024 (No Known Allergies) Date Reviewed: 12/11/2024 Reviewed by: Lisseth Morel MA - Fully Assessed Reason for Visit: Follow Up [171] Primary Visit Diagnosis:ADHD (attention deficit hyperactivity disorder), predominantly hyperactive impulsive type [F90.1] Other Visit Diagnosis:Primary hypertension [I10] Order(s):atomoxetine (STRATTERA) 40 mg capsuleTake 1 capsule by (more content not included)... Normal [facility] [facility] CNOVon 11-27-2024 CNOV Office Visit (FAMPWS ) -- WESTON GAMEZ ([id number]) 1985 M T Date Time Provider Department 11/27/24 4:00 PM AUSTIN CAMARENA During your visit today, we recorded the following information about you: Pulse Respiration Blood pressure Weight 92/minute 14/minute 135/85 70.8 kg Austin Camarena APRN.CAD ADMINISTRATOR 11/27/2024 3:58 PM Signed Chief Complaint Patient [...] Geller Danielle, APRN.CNP 11/27/2024 3:46 PM Signed [facility] [address] [place] [address] [facility] [address] [place] [address] [employer] [address] [address] [facility] [address], [address] [place] [address] [facility] O[facility] [address] [place] [address] [employer] [address] [address] [employer] [address] [phone] (more content not included)... Normal [facility] WESTON GAME[facility] ([id number]) 1985 [facility] Date Time Provider Department 11/24/24 AUSTIN CAMARENA During your visit today, we recorded the following information about you: Austin Camarena APRN.[facility] 11/24/2024 10:52 AM Signed Please let patient [...] by LISSETH MOREL CMA on 11/24/[address] [facility] Endocrinology Visit Reporton 11-22-2024 Endocrinology Visit Report [facility] [address] [place] [address] OFFICE VISIT Date of Service: 11/22/24 MR#: [id number] Acct: [id number] Name: WESTON GAMEZ Rep #: [id number] : 1985 Provider: JIE phelan Age/Sex: 39/M Location: [facility] Status: Signed Intake Vital Signs 07/05/24 10:09 07/30/24 02:02 10/28/24 13:41 01/15/25 11:44 Height 5 ft 6 in 5 ft 6 in 5 ft 6 in 5 ft 6 in Weight: 155 lb BMI 25.0 BP 124/80 H Blood Pressure Location Lt brachial Position Sitting Pulse 100 Pulse Source Monitor Pulse Oximetry (%) 97 Oxygen Delivery Method room air Intake Visit Reasons: 3 M FU R/S 10/04 Chief Complaint: f/u diabetes 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 Normal [facility] Basic metabolic 2000 panelon 11-20-2024 Anion gap [Moles/Vol] 8 mmol/L Normal 8-15 [facility] Comment on above: Order Comment: Speci men Type: BLOOD SPECIMENOrdering Facility: [facility] Address: [address] [place] [address] Performed By: #### 2 4321-2 ####[facility] MILLTOWNCLIA [id number] [place] [address] [place] Calcium [Mass/Vol] 9.4 mg/dL Normal 8.5-10.2 [facility] Comment on above: Order Comment: Speci men Type: BLOOD SPECIMENOrdering Facility: [facility] Address: [address] [place] [address] Performed By: #### 2 4321-2 ####[facility] MILLWNCLIA [id number] [place] [address] [place] Chloride [Moles/Vol] 100 mmol/L Normal 98-107 [facility] Comment on above: Order Comment: Speci men Type: BLOOD SPECIMENOrdering Facility: [facility] Address: [address] [place] [address] Performed By: #### 2 4321-2 ####[facility] MILLTOWNCLIA [id number] [place] [address] [place] CO2 [Moles/Vol] 26 mmol/L Normal 22-[address] [facility] Comment on above: Order Comment: Speci men Type: BLOOD SPECIMENOrdering Facility: [facility] Address: [address] [place] [address] Performed By: #### 2 4321-2 ####[facility] MILLTOWNCLIA [id number] [place] [address] [place] Creatinine [Mass/Vol] 0.93 mg/dL Normal 0.73-1.22 [facility] Comment on above: Order Comment: Se mendoza Type: BLOOD SPECIMENOrdering Facility: [facility] Address: [address] [place] [address] Performed By: #### 2 4321-2 ####[facility] [id number] [place] [address] [place] Creatinine and Glomerular filtration rate.predicted panel (S/P/Bld) 107 mL/min/1.73m??? Normal >=[address] [facility] Comment on above: Order Comment: Se mendoza Type: BLOOD SPECIMENOrdering Facility: [facility] Address: [address] [place] [address] Result Comment: Beverly mated Glomerular Filtration Rate [...] actual GFR. Performed By: #### 2 4321-2 ####[facility] [id number] [place] [address] [place] Glucose [Mass/Vol] 268 mg/dL High 74-99 [facility] Comment on above: Order Comment: Se mendoza Type: BLOOD SPECIMENOrdering Facility: [facility] Address: [address] [place] [address] Result Comment: The [place] Diabetes Association (ADA) provides guidance for cutoff [...] Standards of Medical Care in Diabetes 2016, [place] Diabetes Association. Diabetes Care. 2016.39(Suppl 1). Performed By: #### 2 4321-2 ####[facility] [id number] [place] [address] [place] Potassium [Moles/Vol] 4.3 mmol/L Normal 3.7-5.1 [facility] Comment on above: Order Comment: Speci men Type: BLOOD SPECIMENOrdering Facility: [facility] Address: [address] [place], [place] [address] Performed By: #### 2 4321-2 ####[facility] [id number] [place] [address] [place] Sodium [Moles/Vol] 134 mmol/L Low 136-144 [facility] Comment on above: Order Comment: Speci men Type: BLOOD SPECIMENOrdering Facility: [facility] Address: [address] [id number] Performed By: #### 2 4321-2 ####[facility] [id number] [place] [address] [place] Urea nitrogen [Mass/Vol] 20 mg/dL Normal 9-[address] [facility] Comment on above: Order Comment: Speci men Type: BLOOD SPECIMENOrdering Facility: [facility] Address: [address] [place] [address] Performed By: #### 2 4321-2 ####[facility] [id number] [place] [address] [place] HbA1c (Bld)on 11-20-2024 Average glucose Estimated from glycated hemoglobin (Bld) [Mass/Vol] 258 mg/dL Normal [facility] Comment on above: Order Comment: Speci men Type: URINE SPECIMEN [facility] Address: [address] [place] [address] Result Comment: eAG: (Estimated average glucose) is a calculated value from HgbA1c and is patient accounting representative of the average blood glucose level in the last 2-3 month period. Performed By: #### L [id number] #### [facility] CLIA [id number] [address] [place] [address] [place] HbA1c (Bld) [Mass fraction] 10.6 % High 4.3-5.[address] [facility] Comment on above: Order Comment: Speci men Type: URINE SPECIMEN [facility] Address: [address] [place] [address] Result Comment: Amer ican Diabetes Association guidelines indicate that patients with HgbA1c in the range 5.7-6.4% are at increased risk for development of diabetes, and intervention by lifestyle modification may be beneficial. HgbA1c greater or equal to 6.5% is considered diagnostic of diabetes. Performed By: #### L [id number] #### [facility] CLIA [id number] [address] [place] [address] [place] Lipid 1996 panelon 5 Cholesterol [Mass/Vol] 129 mg/dL Normal <[address] [facility] Comment on above: Order Comment: eS men Type: BLOOD SPECIMENOrdering Facility: [facility] Address: [address] [place] [address] Result Comment: <200 mg/dL, Desirable 200-239 mg/dL, Borderline high >239 mg/dL, High Performed By: #### 2 4331-1 ####[facility] LABCLIA [id number] [place] [address] [place] [facility] [id number] [place] [address] [place] Cholesterol in HDL [Mass/Vol] 34 mg/dL Low >[address] [facility] Comment on above: Order Comment: Speci men Type: BLOOD SPECIMENOrdering Facility: [facility] Address: [address] [place] [address] Result Comment: 40-5 9 mg/dL, Acceptable >59 mg/dL, High: Negative risk factor for coronary heart disease <40 mg/dL, Low: Positive risk factor for coronary heart disease Performed By: #### 2 4331-1 ####[facility] LABCLIA [id number] [address] [id number] [place] [address] [place] Cholesterol in LDL [Mass/Vol] 57 mg/dL Normal <[address] [facility] Comment on above: Order Comment: Speci men Type: BLOOD SPECIMENOrdering Facility: [facility] Address: [address] [place] [address] Result Comment: <100 mg/dL, Optimal 100-129 mg/dL, Near optimal/above optimal 130-159 mg/dL, Borderline high 160-189 mg/dL, High >189 mg/dL, Very high Secondary prevention optimal LDL Cholesterol levels are recommended to be < 70 mg/dL Performed By: #### 2 4331-1 ####[facility] LABCLIA [id number] [address] [id number] [place] [address] [place] Cholesterol in LDL/Cholesterol in HDL [Mass ratio] 1.68 {ratio} Normal <2.[address] [facility] Comment on above: Order Comment: Speci men Type: BLOOD SPECIMENOrdering Facility: [facility] Address: [address] [place] [address] Result Comment: Roxy larson: 1. National Cholesterol Education Program ATP III Guideline At-A-Glance Quick Desk Reference: National Heart, Lung, and Blood [place]. National Institutes of Health. 2001: NIH Publication No. 01-3305. 2. An International Atherosclerosis Society position paper: global recommendations for the management of dyslipidemia: executive summary, Atherosclerosis. 2014: 232(2):410-413. Performed By: #### 2 4331-1 ####[facility]CLIA [id number] [address] [id number] [place] [address] [place] Cholesterol in VLDL [Mass/Vol] 38 mg/dL High <[address] [facility] Comment on above: Order Comment: Speci men Type: BLOOD SPECIMENOrdering Facility: [facility] Address: [address] [place] [address] Performed By: #### 2 4331-1 ####[facility] LABCLIA [id number] [address] [id number] [place] [address] [place] Cholesterol non HDL [Mass/Vol] 95 mg/dL Normal <[address] [facility] Comment on above: Order Comment: Speci men Type: BLOOD SPECIMENOrdering Facility: [facility] Address: [address] [place] [address] Result Comment: <130 mg/dL, Optimal 130-159 mg/dL, Near optimal/above optimal 160-189 mg/dL, Borderline high 190-219 mg/dL, High >219 mg/dL, Very high Secondary prevention optimal non HDL Cholesterol levels are recommended to be <100 mg/dL Performed By: #### 2 4331-1 ####[facility] LABCLIA [id number] [address] [id number] [place] [address] [place] Cholesterol.total/Cho lesterol in HDL [Mass ratio] 3.79 {ratio} Normal <5.[address] [facility] Comment on above: Order Comment: Speci men Type: BLOOD SPECIMENOrdering Facility: [facility] Address: [address] [place] [address] Performed By: #### 2 4331-1 ####[facility] LABCLIA [id number] [address] [id number] [address] [place] FASTING TIME 10 hrs Normal [facility] Comment on above: Order Comment: Speci men Type: BLOOD SPECIMENOrdering Facility: [facility] Address: [address] [place] [address] Performed By: #### 2 4331-1 ####[facility] LABCLIA [id number] [address] [id number] [address] [place] Triglyceride [Mass/Vol] 188 mg/dL High <[address] [facility] Comment on above: Order Comment: Speci men Type: BLOOD SPECIMENOrdering Facility: [facility] Address: [address] [place] [address] Result Comment: <150 mg/dL, Normal 150-199 mg/dL, Borderline high 200-499 mg/dL, High >499 mg/dL, Very high Performed By: #### 2 4331-1 ####[facility] LABCLIA [id number] [address] [id number] [place] [address] [place] 12 Lead EKGon 10-28-2024 12 Lead EKG [facility] Services [address] [place] [address] 12 Lead EKG 10/28/24 1428 MR#: [id number] Acct: [id number] Name: WESTON GAMEZ Rep #: [id number] : 1985 39 From: Galindo Crawley MD [...] Nonspecific ST abnormality Abnormal ECG Confirmed by GALINDO CRAWLEY MD ([id number]), city editor AUTUMN SINGH ([id number]) on 10/30/2024 7:05:56 AM Referred By: Confirmed By: GALINDO CRAWLEY MD 10/30/24 0705 Date Galindo Crawley MD 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 Ludin Sanderson MD Signed Normal [facility] Absolute neutrophil countOrd ered By: Ludin Sanderson on 10-28-2024 Neutrophils (Bld) [#/Vol] 9.8 10*3/uL High 2.0-7.7 [facility] Acetone Serumon 10-28-2024 ACETONE SERUM Negative Normal NEG [facility] Comment on above: Performed By: #### L 500.2500 #### [facility] [address] [place], [address] Acetone [Mass/Vol]Ordered By : Ludin Sanderson on 10-28-2024 Acetone Level Negative NEG [facility] Albumin to globulin ratioOrd ered By: Ludin Sanderson on 10-28-2024 Albumin/Globulin [Mass ratio] 0.8 {ratio} Low 0.9-2.4 [facility] Basic Metabolic Profile (BMP )on 10-28-2024 BUN Normal 7-18 [facility] Comment on above: Result Comment: DUP PER RN LORILI Performed By: #### L 500.2500 #### [facility] [address] [place], [address] BUN/CRE Normal 10-20 [facility] Comment on above: Result Comment: DUP PER RN LORILI Performed By: #### L 500.2500 #### [facility] [address] [place], [address] CA,Total Normal 8.5-10.1 [facility] Comment on above: Result Comment: DUP PER RN LORILI Performed By: #### L 500.2500 #### [facility] [address] [place], [address] CL Normal 98-107 [facility] Comment on above: Result Comment: DUP PER RN LORILI Performed By: #### L 500.2500 #### [facility] [address] [place], [address] CO2 Normal 21.0-32.0 [facility] Comment on above: Result Comment: DUP PER RN LORILI Performed By: #### L 500.2500 #### [facility] [address] [place], [address] CREAT,SERUM Normal 0.70-1.30 [facility] Comment on above: Result Comment: DUP PER RN LORILI Performed By: #### L 500.2500 #### [facility] [address] [place], [address] EST GFR Normal >60 [facility] Comment on above: Result Comment: DUP PER RN LORILI Performed By: #### L 500.2500 #### [facility] [address] [place], [address] EST GFR - AA Normal >60 [facility] Comment on above: Result Comment: DUP PER RN LORILI Performed By: #### L 500.2500 #### [facility] [address] [place], [address] GAP Normal 5-15 [facility] Comment on above: Result Comment: DUP PER RN LORILI Performed By: #### L 500.2500 #### [facility] [address] [place], [address] GLU Normal 74-106 [facility] Comment on above: Result Comment: DUP PER RN LORILI Performed By: #### L 500.2500 #### [facility] [address] [place], [address] Potassium Normal 3.5-5.1 [facility] Comment on above: Result Comment: DUP PER RN LORILI Performed By: #### L 500.2500 #### [facility] [address] [place], [address] Basic Metabolic Profile (BMP) Normal 136-145 [facility] Comment on above: Result Comment: DUP PER RN LORILI Performed By: #### L 500.2500 #### [facility] [address] [place], [address] BUN Normal 7-18 [facility] Comment on above: Result Comment: LIPA SE ADDED TO ORDER NUMBER [id number], BMP IS A DUP TO A CMP Performed By: #### L 500.2500 ####[facility] [address] [place], [address] BUN/CRE Normal 10-20 [facility] Comment on above: Result Comment: LIPA SE ADDED TO ORDER NUMBER [id number], BMP IS A DUP TO A CMP Performed By: #### L 500.2500 ####[facility] [address] [place], [address] CA,Total Normal 8.5-10.1 [facility] Comment on above: Result Comment: LIPA SE ADDED TO ORDER NUMBER [id number], BMP IS A DUP TO A CMP Performed By: #### L 500.2500 ####[facility] [address] [place], [address] CL Normal 98-107 [facility] Comment on above: Result Comment: LIPA SE ADDED TO ORDER NUMBER [id number], BMP IS A DUP TO A CMP Performed By: #### L 500.2500 ####[facility] [address] [place], [address] CO2 Normal 21.0-32.0 [facility] Comment on above: Result Comment: LIPA SE ADDED TO ORDER NUMBER [id number], BMP IS A DUP TO A CMP Performed By: #### L 500.2500 ####[facility] [address] [place], [address] CREAT,SERUM Normal 0.70-1.30 [facility] Comment on above: Result Comment: LIPA SE ADDED TO ORDER NUMBER [id number], BMP IS A DUP TO A CMP Performed By: #### L 500.2500 ####[facility] [address] [place], [address] EST GFR Normal >60 [facility] Comment on above: Result Comment: LIPA SE ADDED TO ORDER NUMBER [id number], BMP IS A DUP TO A CMP Performed By: #### L 500.2500 ####[facility] [address] [place], [address] EST GFR - AA Normal >60 [facility] Comment on above: Result Comment: LIPA SE ADDED TO ORDER NUMBER [id number], BMP IS A DUP TO A CMP Performed By: #### L 500.2500 ####[facility] [address] [place], [address] GAP Normal 5-15 [facility] Comment on above: Result Comment: LIPA SE ADDED TO ORDER NUMBER [id number], BMP IS A DUP TO A CMP Performed By: #### L 500.2500 ####[facility] [address] [place], [address] GLU Normal 74-106 [facility] Comment on above: Result Comment: LIPA SE ADDED TO ORDER NUMBER [id number], BMP IS A DUP TO A CMP Performed By: #### L 500.2500 ####[facility] [address] [place], [address] Potassium Normal 3.5-5.1 [facility] Comment on above: Result Comment: LIPA SE ADDED TO ORDER NUMBER [id number], BMP IS A DUP TO A CMP Performed By: #### L 500.2500 ####[facility] [address] [place], [place], [address] Basic Metabolic Profile (BMP) Normal 136-145 [facility] Comment on above: Result Comment: LIPA SE ADDED TO ORDER NUMBER [id number], BMP IS A DUP TO A CMP Performed By: #### L 500.2500 ####[facility] [address] [place], [place], [address] Basophil percentageOrdered B y: Ludin Sanderson on 10-28-2024 Basophils/100 WBC (Bld) 0.5 % 0-1 [facility] Bedside Glucoseon 10-28-2024 FINGERSTICK GLU 274 mg/dL High 74-106 [facility] Comment on above: Result Comment: CORINNA VELEZ OF PATIENT CARE PER NURSING PROTOCOL Performed By: #### L 500.2500 #### [facility] [address] [place], [address] Bilirubin Test strip Ql (U)O rdered By: Ludin Sanderson on 10-28-2024 Bilirubin Ql (U) Negative Negative [facility] Bilirubin, totalOrdered By: Ludin Sanderson on 10-28-2024 Bilirubin [Mass/Vol] 0.60 mg/dL 0.20-1.00 [facility] Comment on above: For patients on eltr ombopag therapy, use of Dimension Fannin TBIL is not recommended. Blood urea nitrogen (BUN)/cr eatinine ratioOrdered By: Ludin Sanderson on 10-28-2024 Urea nitrogen/Creatinine [Mass ratio] 22.0 mg/mg High 10-20 [facility] CBC W/Diff, Automatedon -2 Absolute Lymph 2.59 X10 3/uL Normal 0.83-4.51 [facility] Comment on above: Performed By: #### L 100.0100 ####[facility] [address] [place], [place], [address] Absolute Neut 9.8 X10 3/uL High 2.0-7.7 [facility] Comment on above: Performed By: #### L 100.0100 ####[facility] [address] [place], [address] Basophils/100 WBC (Bld) 0.5 % Normal 0-1 [facility] Comment on above: Performed By: #### L 100.0100 ####[facility] [address] [place], [address] Eosinophils/100 WBC (Bld) 0.3 % Normal 0-5 [facility] Comment on above: Performed By: #### L 100.0100 ####[facility] [address] [place], [address] Erythrocyte distribution width (RBC) [Ratio] 13.5 % Normal 11.6-14.6 [facility] Comment on above: Performed By: #### L 100.0100 ####[facility] [address] [place], [address] Hematocrit (Bld) [Volume fraction] 45.6 % Normal 40-54 [facility] Comment on above: Performed By: #### L 100.0100 ####[facility] [address] [place], [address] Hemoglobin (Bld) [Mass/Vol] 14.9 g/dL Normal 13.0-16.5 [facility] Comment on above: Performed By: #### L 100.0100 ####[facility] [address] [place], [address] IG% 0.500 Normal 0.0-0.9 [facility] Comment on above: Result Comment: IG% - Immature Granulocytes (promyelocytes, myelocytes and metamyelocytes) > 1% indicates that a LEFT SHIFT is Present. Performed By: #### L 100.0100 ####[facility] [address] [place], [address] Lymphocytes/100 WBC (Bld) 19.1 % Normal 19-41 [facility] Comment on above: Performed By: #### L 100.0100 ####[facility] [address] [place], [address] MCH (RBC) [Entitic mass] 28.7 pg Normal 27.0-32.0 [facility] Comment on above: Performed By: #### L 100.0100 ####[facility] [address] [place], [address] MCHC (RBC) [Mass/Vol] 32.7 g/dL Normal 32-36 [facility] Comment on above: Performed By: #### L 100.0100 ####[facility] [address] [place], [address] MCV (RBC) [Entitic vol] 87.9 fL Normal 80-94 [facility] Comment on above: Performed By: #### L 100.0100 ####[facility] [address] [place], [address] Monocytes/100 WBC (Bld) 7.7 % Normal 0-10 [facility] Comment on above: Performed By: #### L 100.0100 ####[facility] [address] [place], [address] Neutrophils/100 WBC (Bld) 71.9 % High 47-70 [facility] Comment on above: Performed By: #### L 100.0100 ####[facility] [address] [place], [address] Nucleated RBC (Bld) [#/Vol] 0 10*3/uL Normal 0-5 [facility] Comment on above: Performed By: #### L 100.0100 ####[facility] [address] [place], [id number] Platelet mean volume (Bld) [Entitic vol] 9.5 fL Normal 6.2-12.0 [facility] Comment on above: Performed By: #### L 100.0100 ####[facility] [address] [place], [address] Platelets (Bld) [#/Vol] 466 10*3/uL High 150-450 [facility] Comment on above: Performed By: #### L 100.0100 ####[facility] [address] [place], [address] RBC (Bld) [#/Vol] 5.19 10*6/uL Normal 4.6-6.2 [facility] Comment on above: Performed By: #### L 100.0100 ####[facility] [address] [place], [address] RDW SD 43.4 fl Normal 35.1-43.9 [facility] Comment on above: Performed By: #### L 100.0100 ####[facility] [address] [place], [address] WBC (Bld) [#/Vol] 13.6 10*3/uL High 4.4-11.0 [facility] Comment on above: Performed By: #### L 100.0100 ####[facility] [address] [place], [address] Carbon dioxide measurementOr dered By: Ludin Sanderson on 10-28-2024 CO2 [Moles/Vol] 18.0 mmol/L Low 21.0-32.0 [facility] Chloride measurementOrdered By: Ludin Sanderson on 10-28-2024 Chloride [Moles/Vol] 100 mmol/L 98-107 [facility] Comprehensive Metabolic Prof ilon 10-28-2024 Albumin [Mass/Vol] 4.1 g/dL Normal 3.2-5.0 [facility] Comment on above: Performed By: #### L 500.2500 #### [facility] [address] [place], [address] Albumin/Globulin [Mass ratio] 0.8 {ratio} Low 0.9-2.4 [facility] Comment on above: Performed By: #### L 500.2500 #### [facility] [address] [place], [address] ALK P 138 U/L High 45-117 [facility] Comment on above: Performed By: #### L 500.2500 #### [facility] [address] [place], [address] ALT [Catalytic activity/Vol] 50 U/L Normal 16-61 [facility] Comment on above: Performed By: #### L 500.2500 #### [facility] [address] [place], [address] AST [Catalytic activity/Vol] 68 U/L High 15-37 [facility] Comment on above: Result Comment: Mode rate Hemolysis, Result may be falsely increased. Performed By: #### L 500.2500 #### [facility] [address] [place], [address] Bilirubin [Mass/Vol] 0.60 mg/dL Normal 0.20-1.00 [facility] Comment on above: Result Comment: For patients on eltrombopag therapy, use of Dimension Fannin TBIL is not recommended. Performed By: #### L 500.2500 #### [facility] [address] [place], [address] BUN/CRE 22.0 RATIO High 10-20 [facility] Comment on above: Performed By: #### L 500.2500 #### [facility] [address] [place], [address] CA,Total 9.6 mg/dL Normal 8.5-10.1 [facility] Comment on above: Performed By: #### L 500.2500 #### [facility] [address] [place], [address] Chloride [Moles/Vol] 100 mmol/L Normal 98-107 [facility] Comment on above: Performed By: #### L 500.2500 #### [facility] [address] [place], [address] CO2 [Moles/Vol] 18.0 mmol/L Low 21.0-32.0 [facility] Comment on above: Performed By: #### L 500.2500 #### [facility] [address] [place], [address] Creatinine [Mass/Vol] 1.32 mg/dL High 0.70-1.30 [facility] Comment on above: Result Comment: The validity of the calculated GFR GFRAA in patients over 70 years has not been determined. Clinical correlation is essential. Performed By: #### L 500.2500 #### [facility] [address] [place], [address] ECRCL 67.80 ml/min Normal [facility] Comment on above: Performed By: #### L 500.2500 #### [facility] [address] [place], [address] EST GFR - AA 78 mL/min Normal >60 [facility] Comment on above: Result Comment: Afri can Macanese GFR Calc Performed By: #### L 500.2500 #### [facility] [address] [place], [address] GAP 11 Normal 5-15 [facility] Comment on above: Performed By: #### L 500.2500 #### [facility] [address] [place], [address] GFR/1.73 sq M.predicted among non-blacks MDRD (S/P/Bld) [Vol rate/Area] 64 mL/min/{1.73_m2} Normal >60 [facility] Comment on above: Result Comment: Non- GFR Calc Performed By: #### L 500.2500 #### [facility] [address] [place], [address] Globulin (S) [Mass/Vol] 5.2 g/dL High 2.2-4.2 [facility] Comment on above: Performed By: #### L 500.2500 #### [facility] [address] [place], [address] Glucose [Mass/Vol] 282 mg/dL High 74-106 [facility] Comment on above: Result Comment: Gluc ose result greater than or equal to 200 mg/dL suggests DIABETES MELLITUS per A.D.A. criteria. Performed By: #### L 500.2500 #### [facility] [address] [place], [address] Potassium [Moles/Vol] 4.4 mmol/L Normal 3.5-5.1 [facility] Comment on above: Result Comment: Mode rate Hemolysis, Result may be falsely increased. Performed By: #### L 500.2500 #### [facility] [address] [place], [address] Sodium [Moles/Vol] 129 mmol/L Low 136-145 [facility] Comment on above: Performed By: #### L 500.2500 #### [facility] [address] [place], [address] T PROT 9.3 g/dL High 6.4-8.2 [facility] Comment on above: Performed By: #### L 500.2500 #### [facility] [address] [place], [address] Urea nitrogen [Mass/Vol] 29 mg/dL High 7-18 [facility] Comment on above: Performed By: #### L 500.2500 #### [facility] [address] [place], [address] Emergency Department Summary on 10-28-2024 Emergency Department Summary [facility] Medical Records Department [address] [place] [address] Emergency Department Summary 10/28/24 MR#: [id number] Acct: [id number] Name: WESTON GAMEZ Rep #: [id number] : 1985 39 From: Ludin Sanderson MD PCP: Austin Camarena, [employer] Status:REG ER Location: ED HPI HPI - [...] weeks ago when he was seen at [facility]. They state that the last time he was here, he had a small tear that had to be fixed by Dr. Argueta from the nausea and vomiting. Patient complains of diffuse abdominal pain since last evening as well as multiple episodes of nausea and vomiting without blood in his emesis. No exacerbating or alleviating factors. [facility] Medical History Gastroparesis Former tobacco use Cannabis [...] #1 ea 05/04/24 Unknown Rx ([employer]ex[employer] G7 [employer]) gabapentin 100 mg capsule 200 mg PO [...] tachycardia at (more content not included)... Normal [facility] Eosinophil percentageOrdered By: Ludin Sanderson on 10-28-2024 Eosinophils/100 WBC (Bld) 0.3 % 0-5 [facility] Epithelial cells.squamous LM Ql (Urine sed)Ordered By: Ludin Sanderson on 10-28-2024 Epithelial cells.squamous LM.HPF (Urine sed) [#/Area] 5 /[HPF] 0-5 [facility] Erythrocyte distribution wid th ratioOrdered By: Ludin Sanderson on 10-28-2024 Erythrocyte distribution width (RBC) [Ratio] 13.5 % 11.6-14.6 [facility] Erythrocyte distribution wid th standard deviationOrdered By: Ludin Sanderson on 10-28-2024 Erythrocyte distribution width (RBC) [Entitic vol] 43.4 fL 35.1-43.9 [facility] Estimated glomerular filtrat ion rate (GFR) AmericanOrdered By: Ludin Sanderson on 10-28-2024 Estimated GFR (MDRD) Amer 78 mL/min >60 [facility] Comment on above: GFR Calc Estimation of creatinine devi aranceOrdered By: Ludin Sanderson on 10-28-2024 Estimated Creatinine Clearance Calc 67.80 ml/min [facility] Fine Granular Casts LM.LPF ( Urine sed) [#/Area]Ordered By: Ludin Sanderson on 10-28-2024 Urine Fine Granular Casts 0-5 SEEN /lpf 0-5 [facility] Glomerular filtration rate ( GFR) estimationOrdered By: Ludin Sanderson on 10-28-2024 Estimated GFR (MDRD) Non-Af Amer 64 mL/min >60 [facility] Comment on above: Non- GFR Calc Glucose Ql (U)Ordered By: Kamlesh Sanderson on 10-28-2024 Glucose (U) [Mass/Vol] 1000 mg/dL High Normal [facility] Glucose measurementOrdered B y: Ludin Sanderson on 10-28-2024 Glucose [Mass/Vol] 282 mg/dL High 74-106 [facility] Comment on above: Glucose result great er than or equal to 200 mg/dLsuggests DIABETES MELLITUS per A.D.A. criteria. [facility] deOrdered By: Ludin Sanderson on 10-28-2024 Bedside Glucose (Misc Panel) 274 mg/dL High 74-106 [facility] Comment on above: MANAGEMENT OF PATIEN T CARE PER NURSING PROTOCOL Hematocrit Auto (Bld) [Volum e fraction]Ordered By: Ludin Sanderson on 10-28-2024 Hematocrit (Bld) [Volume fraction] 45.6 % 40-54 [facility] Hemoglobin measurementOrdere d By: Ludin Sanderson on 10-28-2024 Hemoglobin (Bld) [Mass/Vol] 14.9 g/dL 13.0-16.5 [facility] Hyaline casts LM.LPF (Urine sed) [#/Area]Ordered By: Ludin Sanderson on 10-28-2024 Hyaline casts LM Ql (Urine sed) 10-25 SEEN /lpf 0-5 [facility] Immature granulocytes/100 WB C Auto (Bld)Ordered By: Ludin Sanderson on 10-28-2024 Immature granulocytes/100 WBC (Bld) 0.500 % 0.0-0.9 [facility] Comment on above: IG% - Immature Granu locytes (promyelocytes, myelocytes and metamyelocytes) > 1% indicates that a LEFT SHIFT is Present. Ketones Test strip Ql (U)Ord ered By: Ludin Sanderson on 10-28-2024 Ketones Ql (U) 150 mg/dl Abnormal Negative [facility] Comment on above: CRITICAL VALUE *HCRI TICAL VALUE CALLED TO YULIA WHEELER10/28/24 1701 Orlin Perez.RESULTS READ BACK BY SAME. Laboratory - Chemistry and C hemistry - challengeOrdered By: Ludin Sanderson on 10-28-2024 AST [Catalytic activity/Vol] 68 U/L High 15-37 [facility] Comment on above: Moderate Hemolysis, Result may be falsely increased. Lipaseon 10-28-2024 Lipase [Catalytic activity/Vol] 25 U/L Normal 13-75 [facility] Comment on above: Result Comment: Lacey melendez note: LIPASE revised reference range effective 23. New Lipase methodology. Expected to produce lower values than the previous assay method. NEW Reference Range: 13 - 75 U/L Performed By: #### L 500.2500 #### [facility] [address] [place], [address] Lipase measurementOrdered By : Ludin Sanderson on 10-28-2024 Lipase [Catalytic activity/Vol] 25 U/L 13-75 [facility] Comment on above: Please note:LIPASE r evised reference range effective 23. New Lipase methodology. Expected to produce lower values than the previous assay method. NEW Reference Range: 13 - 75 U/L Lymphocytes Auto (Unsp spec) [#/Vol]Ordered By: Ludin Sanderson on 10-28-2024 Lymphocytes (Bld) [#/Vol] 2.59 10*3/uL 0.83-4.51 [facility] Lymphocytes/100 WBC Auto (Un sp spec)Ordered By: Ludin Sanderson on 10-28-2024 Lymphocytes/100 WBC (Bld) 19.1 % 19-41 [facility] MCV (mean corpuscular volume ) determinationOrdered By: Ludin Sanderson on 10-28-2024 MCV (RBC) [Entitic vol] 87.9 fL 80-94 [facility] Mean corpuscular hemoglobin (MCH) determinationOrdered By: Ludin Sanderson on 10-28-2024 MCH (RBC) [Entitic mass] 28.7 pg 27.0-32.0 [facility] Mean corpuscular hemoglobin concentration (MCHC) determinationOrdered By: Ludin Sanderson on 10-28-2024 MCHC (RBC) [Mass/Vol] 32.7 g/dL 32-36 [facility] Mean platelet volume determi nationOrdered By: Ludin Sanderson on 10-28-2024 Platelet mean volume (Bld) [Entitic vol] 9.5 fL 6.2-12.0 [facility] Microscopic analysis of urin e for red blood cells (RBC)Ordered By: Ludin Sanderson on 10-28-2024 Urine RBC 50-100 SEEN /hpf 0-5 [facility] Monocyte percentageOrdered B y: Ludin Sanderson on 10-28-2024 Monocytes/100 WBC (Bld) 7.7 % 0-10 [facility] Mucus LM Ql (Urine sed)Order ed By: Ludin Sanderson on 10-28-2024 Mucus Ql (Urine sed) 3+ /hpf [facility] Neutrophil percentageOrdered By: Ludin Sanderson on 10-28-2024 Neutrophils/100 WBC (Bld) 71.9 % High 47-70 [facility] Nitrite Test strip Ql (U)Ord ered By: Ludin Sanderson on 10-28-2024 Nitrite Ql (U) Negative Negative [facility] Nucleated red blood cell per centageOrdered By: Ludin Sanderson on 10-28-2024 Nucleated RBC/100 WBC (Bld) [Ratio] 0 % 0-5 [facility] Platelet countOrdered By: Kamlesh Sanderson on 10-28-2024 Platelets (Bld) [#/Vol] 466 10*3/uL High 150-450 [facility] Potassium measurementOrdered By: Ludin Sanderson on 10-28-2024 Potassium [Moles/Vol] 4.4 mmol/L 3.5-5.1 [facility] Comment on above: Moderate Hemolysis, Result may be falsely increased. Protein Test strip Ql (U)Ord ered By: Ludin Sanderson on 10-28-2024 Protein Ql (U) 100 mg/dl High Negative [facility] RBC Auto (Bld) [#/Vol]Ordere d By: Ludin Sanderson on 10-28-2024 RBC (Bld) [#/Vol] 5.19 10*6/uL 4.6-6.2 [facility] Serum anion gap measurementO rdered By: Ludin Sanderson on 10-28-2024 Anion gap [Moles/Vol] 11 mmol/L 5-15 [facility] Serum globulin measurementOr dered By: Ludin Sanderson on 10-28-2024 Globulin (S) [Mass/Vol] 5.2 g/dL High 2.2-4.2 [facility] Serum or plasma alanine escamilla otransferase (ALT) measurementOrdered By: Ludin Sanderson on 10-28-2024 ALT [Catalytic activity/Vol] 50 U/L 16-61 [facility] Serum or plasma albumin luis carlos urement (mass/volume)Ordered By: Ludin Sanderson on 10-28-2024 Albumin [Mass/Vol] 4.1 g/dL 3.2-5.0 [facility] Serum or plasma alkaline tessy sphatase measurementOrdered By: Ludin Sanderson on 10-28-2024 ALP [Catalytic activity/Vol] 138 U/L High 45-117 [facility] Serum or plasma calcium luis carlos urement (mass/volume)Ordered By: Ludin Sanderson on 10-28-2024 Calcium [Mass/Vol] 9.6 mg/dL 8.5-10.1 [facility] Serum or plasma creatinine m easurement (mass/volume)Ordered By: Ludin Sanderson on 10-28-2024 Creatinine [Mass/Vol] 1.32 mg/dL High 0.70-1.30 [facility] Comment on above: The validity of the calculated GFR & GFRAA in patients over 70 years has not been determined. Clinical correlation is essential. Serum or plasma urea nitroge n measurement (mass/volume)Ordered By: Ludin Sanderson on 10-28-2024 Urea nitrogen [Mass/Vol] 29 mg/dL High 7-18 [facility] Sodium levelOrdered By: Ludin Sanderson on 10-28-2024 Sodium [Moles/Vol] 129 mmol/L Low 136-145 [facility] Total proteinOrdered By: Catina Sanderson on 10-28-2024 Protein [Mass/Vol] 9.3 g/dL High 6.4-8.2 [facility] Urinalysis, Completeon 10-28 BACTERIA 1+ /hpf Normal None Seen [facility] Comment on above: Order Comment: COLLE CTOR TO SPECIFY Performed By: #### L 500.2500 #### [facility] [address] [place], [address] CAST,FINE GRAN 0-5 SEEN Normal 0-5 [facility] Comment on above: Order Comment: COLLE CTOR TO SPECIFY Performed By: #### L 500.2500 #### [facility] [address] [place] [address] CAST,HYALINE 10-25 SEEN Normal 0-5 [facility] Comment on above: Order Comment: COLLE CTOR TO SPECIFY Performed By: #### L 500.2500 #### [facility] [address] [place], [place], [facility] EPI,SQUAMOUS 5-10 SEEN Normal 0-[address] [place] [address] Comment on above: Order Comment: [facility] CTOR TO SPECIFY Performed By: #### L 500.2500 #### [facility] [place] [address] Mucus Ql (Urine sed) 3+ /hpf Normal [facility] Comment on above: Order Comment: [facility] CTOR TO SPECIFY Performed By: #### L 500.2500 #### [facility] [address] [place] [address] RBC 50-100 SEEN Normal 0-[address] [place] [address] Comment on above: Order Comment: [facility] CTOR TO SPECIFY Performed By: #### L 500.2500 #### [facility] [address] [place] [address] KETONE UR 150 mg/dl Abnormal Negative [facility] Comment on above: Order Comment: COLLE CTOR TO SPECIFY Result Comment: CRIT ICAL VALUE *H CRITICAL VALUE CALLED TO YULIA WHEELER 10/28/24 Kathy Perez. RESULTS READ BACK BY SAME. Performed By: #### L 500.2500 #### [facility] [address] [place] [address] BILIRUBIN URINE Negative Normal Negative [facility] Comment on above: Order Comment: COLLE CTOR TO SPECIFY Performed By: #### L 500.2500 #### [facility] [address] [place], [address] Clarity (U) Sl. Cloudy Normal Clear [facility] Comment on above: Order Comment: COLLE CTOR TO SPECIFY Performed By: #### L 500.2500 #### [facility] [address] [place], [address] Color (U) Yellow Normal Yellow [facility] Comment on above: Order Comment: KATHRYN CTOR TO SPECIFY Performed By: #### L 500.2500 #### [facility] [address] [place], [address] GLUCOSE, UR 1000 mg/dl Abnormal Normal [facility] Comment on above: Order Comment: COLLE CTOR TO SPECIFY Performed By: #### L 500.2500 #### [facility] [address] [place], [address] LEUK ESTERASE Negative Normal Negative [facility] Comment on above: Order Comment: KATHRYN CTOR TO SPECIFY Performed By: #### L 500.2500 #### [facility] [address] [place], [address] Nitrite Ql (U) Negative Normal Negative [facility] Comment on above: Order Comment: COLLE CTOR TO SPECIFY Performed By: #### L 500.2500 #### [facility] [address] [place], [address] OCCULT BLOOD-UR 50 /ul Abnormal Negative [facility] Comment on above: Order Comment: KATHRYN CTOR TO SPECIFY Performed By: #### L 500.2500 #### [facility] [address] [place], [address] pH UR 5.0 Normal 5.0 - 8.0 [facility] Comment on above: Order Comment: COLLE CTOR TO SPECIFY Performed By: #### L 500.2500 #### [facility] [address] [place], [address] PROT DIPSTX 100 mg/dl Abnormal Negative [facility] Comment on above: Order Comment: KATHRYN CTOR TO SPECIFY Performed By: #### L 500.2500 #### [facility] [address] [place], [address] SP.GR. DIPSTX 1.025 Normal 1.002-1.030 [facility] Comment on above: Order Comment: KATHRYN CTOR TO SPECIFY Performed By: #### L 500.2500 #### [facility] [address] [place], [address] UROBILI Normal Normal Normal [facility] Comment on above: Order Comment: KATHRYN CTOR TO SPECIFY Performed By: #### L 500.2500 #### [facility] [address] [place], [address] WBC 0 SEEN Normal 0-5 [facility] Comment on above: Order Comment: KATHRYN CTOR TO SPECIFY Performed By: #### L 500.2500 #### [facility] [address] [place], [address] Urine blood detectionOrdered By: Ludin Sanderson on 10-28-2024 Urine Occult Blood 50 /ul High Negative [facility] Urine clarityOrdered By: Catina Sanderson on 10-28-2024 Clarity (U) Sl. Cloudy Clear [facility] Urine color determinationOrd ered By: Ludin Sanderson on 10-28-2024 Color (U) Yellow Yellow [facility] Urine leukocyte esterase det ection by dipstickOrdered By: Ludin Sanderson on 10-28-2024 Leukocyte esterase Test strip Ql (U) Negative Negative [facility] Urine pHOrdered By: Ludin krueger on 10-28-2024 pH (U) 5.0 [pH] 5.0 - 8.0 [facility] Urine sediment bacteria coun t by microscopy (number/high power field)Ordered By: Ludin Sanderson on 12-21-2024 Bacteria LM.HPF (Urine sed) [#/Area] 1 /[HPF] None Seen [facility] Urine specific gravity measu rementOrdered By: Ludin Sanderson on 10-28-2024 Specific gravity (U) [Rel density] 1.025 1.002-1.030 [facility] Urobilinogen Ql (U)Ordered B y: Ludin Sanderson on 10-28-2024 Urine Urobilinogen Normal mg/dl Normal [facility] White blood cell (WBC) count Ordered By: Ludin Sanderson on 10-28-2024 WBC (Bld) [#/Vol] 13.6 10*3/uL High 4.4-11.0 [facility] White blood cell countOrdere d By: Ludin Sanderson on 10-28-2024 Urine WBC 0 SEEN /hpf 0-5 [facility] .Auto Diffon 10-18-2024 Basophil, Absolute 0.1 10 3/mcL Normal 0.0-0.2 [facility] Comment on above: Performed By: #### G FR, CBC, LIP, ANEU, ADIFF, MDW, CMP #### [address] [address] Basophils/100 WBC (Bld) 0.7 % Normal 0.0-2.5 [facility] Comment on above: Performed By: #### G FR, CBC, LIP, ANEU, ADIFF, MDW, CMP #### [address] [address] Eosinophil, Absolute 0.2 10 3/mcL Normal 0.0-0.7 [facility] Comment on above: Performed By: #### G FR, CBC, LIP, ANEU, ADIFF, MDW, CMP #### [address] [address] Eosinophils/100 WBC (Bld) 1.2 % Normal 0.0-7.0 [facility] Comment on above: Performed By: #### G FR, CBC, LIP, ANEU, ADIFF, MDW, CMP #### [address] [address] Lymphocyte, Absolute 2.1 10 3/mcL Normal 0.9-4.3 [facility] Comment on above: Performed By: #### G FR, CBC, LIP, ANEU, ADIFF, MDW, CMP #### [address] [address] Lymphocytes/100 WBC (Bld) 12.9 % Low 20.0-40.0 [facility] Comment on above: Performed By: #### G FR, CBC, LIP, ANEU, ADIFF, MDW, CMP #### [address] [address] Monocyte, Absolute 1.2 10 3/mcL Normal 0.1-1.4 [facility] Comment on above: Performed By: #### G FR, CBC, LIP, ANEU, ADIFF, MDW, CMP #### [address] [address] Monocytes/100 WBC (Bld) 7.7 % Normal 2.0-13.0 [facility] Comment on above: Performed By: #### G FR, CBC, LIP, ANEU, ADIFF, MDW, CMP #### [address] [address] Neutrophils/100 WBC (Bld) 77.5 % High 50.0-75.0 [facility] Comment on above: Performed By: #### G FR, CBC, LIP, ANEU, ADIFF, MDW, CMP #### [address] [address] .GFRon 10-18-2024 GFR 99 ml/min/1.73sqm Normal [facility] Comment on above: Result Comment: GFR [...] CBC, LIP, ANEU, ADIFF, MDW, CMP #### [address] [address] GFR Non- 81 ml/min/1.73sqm Normal [facility] Comment on above: Result Comment: GFR [...] CBC, LIP, ANEU, ADIFF, MDW, CMP #### [address] [address] .MDWon 10-18-2024 Monocyte Distribution Width 18.17 Normal 0.00-20.00 [facility] Comment on above: Result Comment: For ED adult patients suspected of sepsis, MDW<=20.0 does not rule out sepsis or risk of sepsis Performed By: #### G FR, CBC, LIP, ANEU, ADIFF, MDW, CMP #### [address] [address] .NEUABSon 10-18-2024 Neutrophil, Absolute 12.4 10 3/mcL High 2.3-8.1 [facility] Comment on above: Performed By: #### G FR, CBC, LIP, ANEU, ADIFF, MDW, CMP #### [address] [address] .Urinalysis Microscopic (AO) on 10-18-2024 UA Hyal Cast 0-5 Abnormal [facility] Comment on above: Performed By: #### G FR, CBC, LIP, MATTY RAMON MDW, CMP #### [address] [address] UA RBC 10-15 Abnormal None Seen [facility] Comment on above: Performed By: #### G FR, CBC, LIP, MATTY RAMON MDW, CMP #### [address] [address] UA Squam Epithelial 0-5 Abnormal None Seen [facility] Comment on above: Performed By: #### G FR, CBC, LIP, MATTY RAMON MDW, CMP #### [address] [address] UA WBC 0-5 Abnormal None Seen [facility] Comment on above: Performed By: #### G FR, CBC, LIP, MATTY RAMON MDW, CMP #### [address] [address] CBCon 10-18-2024 Erythrocyte distribution width (RBC) [Ratio] 14.4 % Normal 11.5-15.5 [facility] Comment on above: Performed By: #### G FR, CBC, LIP, MATTY RAMON MDW, CMP #### [address] [address] Hematocrit (Bld) [Volume fraction] 44.4 % Normal 40.0-52.0 [facility] Comment on above: Performed By: #### G FR, CBC, LIP, MATTY RAMON MDW, CMP #### [address] [address] Hgb 14.9 G/dL Normal 13.0-17.5 [facility] Comment on above: Performed By: #### G FR, CBC, LIP, ANEUMATTY MDW, CMP #### [address] [address] MCH (RBC) [Entitic mass] 29.5 pg Normal 27.0-33.0 [facility] Comment on above: Performed By: #### G FR, CBC, LIP, ANEU, ADMIKAYLA, W, CMP #### [address] [address] MCHC 33.5 G/dL Normal 32.0-36.0 [facility] Comment on above: Performed By: #### G FR, CBC, LIP, ANEU, ADIFF, W, CMP #### [address] [address] MCV (RBC) [Entitic vol] 88.1 fL Normal 81.0-100.0 [facility] Comment on above: Performed By: #### G FR, CBC, LIP, ANEU, ADMIKAYLA, W, CMP #### [address] [address] Platelet 363 10 3/mcL Normal 150-450 [facility] Comment on above: Performed By: #### G FR, CBC, LIP, ANEU, ADIFF, MDW, CMP #### [address] [address] Platelet mean volume (Bld) [Entitic vol] 7.7 fL Normal 6.4-10.5 [facility] Comment on above: Performed By: #### G FR, CBC, LIP, ANEU, ADIFF, MDW, CMP #### [address] [address] RBC 5.04 10 6/mcL Normal 4.50-6.00 [facility] Comment on above: Performed By: #### G FR, CBC, LIP, ANEU, ADIFF, MDW, CMP #### [address] [address] WBC 16.1 10 3/mcL High 4.5-10.8 [facility] Comment on above: Performed By: #### G FR, CBC, LIP, ANEU, ADIFF, MDW, CMP #### [address] [address] CMPon 10-18-2024 Bili Total 0.3 mg/dL Normal 0.2-1.0 [facility] Comment on above: Result Comment: Use of this assay is not recommended for patients undergoing treatment with eltrombopag due to the potential for falsely elevated results. Performed By: #### G FR, CBC, LIP, ANEU, CARITO STARR, CMP #### [place] [address] Albumin Level 4.6 G/dL Normal 3.5-5.0 [facility] Comment on above: Performed By: #### G FR, CBC, LIP, ANEU, CARITO STARR, CMP #### [place] [address] Albumin/Globulin [Mass ratio] 1.1 {ratio} Normal 1.1-2.5 [facility] Comment on above: Performed By: #### G FR, CBC, LIP, ANEU, CARITO STARR, CMP #### [place] [address] ALP [Catalytic activity/Vol] 159 U/L High 40-135 [facility] Comment on above: Performed By: #### G FR, CBC, LIP, ANEU, CARITO STARR, CMP #### [place] [address] ALT [Catalytic activity/Vol] 81 U/L High 16-63 [facility] Comment on above: Performed By: #### G FR, CBC, LIP, ANEU, CARITO STARR, CMP #### [place] [id number] AST [Catalytic activity/Vol] 76 U/L High 10-40 [facility] Comment on above: Performed By: #### G FR, CBC, LIP, ANEU, CARITO STARR, CMP #### [place] [address] BUN/Creatinine Ratio 22 ratio Normal 7-27 [facility] Comment on above: Performed By: #### G FR, CBC, LIP, ANEU, CARITO STARR, CMP #### [address] [place] [address] Calcium [Mass/Vol] 10.1 mg/dL Normal 8.4-10.2 [facility] Comment on above: Performed By: #### G FR, CBC, LIP, MATTY RAMON MDW, CMP #### [address] [address] Chloride [Moles/Vol] 101 mmol/L Normal 98-107 [facility] Comment on above: Performed By: #### G FR, CBC, LIP, MATTY RAMON MDW, CMP #### [address] [address] CO2 [Moles/Vol] 22 mmol/L Normal 22-29 [facility] Comment on above: Performed By: #### G FR, CBC, LIP, MATTY RAMON MDW, CMP #### [address] [address] Creatinine [Mass/Vol] 1.02 mg/dL Normal 0.70-1.30 [facility] Comment on above: Result Comment: Test ing performed on Siemens Dimension EXL analyzer using a modified kinetic Ifeanyi technique. Performed By: #### G FR, CBC, CHAVA, MATTY RAMON MDW, CMP #### [address] [address] Electrolyte Balance 15.0 mEq/L Normal 4.0-15.0 [facility] Comment on above: Performed By: #### G FR, CBC, LIP, MATTY RAMON MDW, CMP #### [address] [address] Globulin 4.3 G/dL Normal [facility] Comment on above: Performed By: #### G FR, CBC, LIPTRISTEN ADIFF, MDW, CMP #### [address] [address] Glucose [Mass/Vol] 211 mg/dL High 70-105 [facility] Comment on above: Performed By: #### G FR, CBC, LIP, MATTY RAMON MDW, CMP #### [address] [address] Potassium [Moles/Vol] 4.2 mmol/L Normal 3.5-5.1 [facility] Comment on above: Performed By: #### G FR, CBC, LIP, TRISTEN, CARITO STARR, CMP #### [place] [address] [place], [place] [address] Sodium [Moles/Vol] 138 mmol/L Normal 136-145 [facility] Comment on above: Performed By: #### G FR, CBC, LIP, TRISTEN, CARITO STARR, CMP #### [place] [address] [place], [place] [address] Total Protein 8.9 G/dL High 6.4-8.2 [facility] Comment on above: Performed By: #### G FR, CBC, LIP, TRISTEN, CARITO STARR, CMP #### [address] [address] Urea nitrogen [Mass/Vol] 22 mg/dL High 7-18 [facility] Comment on above: Performed By: #### G FR, CBC, LIP, MATTY RAMON MDW, CMP #### [address] [address] CNOVon 10-18-2024 CNOV Office Visit (UCWSTR ) -- WESTON GAMEZ ([id number]) 1985 [facility] Date Time Provider Department 10/18/24 2:00 PM MARY LONGORIA [facility] During your visit today, we recorded the following information about you: Mary Longoria APRN.CAD ADMINISTRATOR 10/18/2024 1:27 PM Signed Weston Gamez is a 39 year old male who presents to [facility] for abdominal pain, vomiting, fever. Person with him states he has had fever of 102 degrees F and can't quit vomiting. He is crying in the triage room. He is directed to the ED for further evaluation and treatment. [facility] will go to [facility]. Mary Longoria APRN.CAD ADMINISTRATOR Allergies As of Date: 10/18/2024 (No Known [...] Status:Closed by MARY LONGORIA on 10/18/[address] [facility] CVFLURVon 10-18-2024 FLU A PCR Negative Normal Negative [facility] Comment on above: Performed By: #### C VFLURV #### [address] [address] FLU B PCR Negative Normal Negative [facility] Comment on above: Performed By: #### C VFLURV #### [address] [address] RSV PCR Negative Normal Negative [facility] Comment on above: Performed By: #### C VFLURV #### [place] [address] SARS-CoV-2 (COVID-19) RNA LOIS+probe Ql (Unsp spec) Negative Normal Negative [facility] Comment on above: Result Comment: Resu [...] results. Performed By: #### C VFLURV #### [address] [address] LIPon 10-18-2024 Lipase Level 28 U/L Normal 16-77 [facility] Comment on above: Performed By: #### G FR, CBC, LIP, ANEU, ADIFF, MDW, CMP #### [address] [address] UAon 10-18-2024 Color (U) Yellow Normal [facility] Comment on above: Performed By: #### U A, UAMICAO #### [place] [address] Glucose (U) [Mass/Vol] 500 mg/dL Abnormal Negative [facility] Comment on above: Performed By: #### U A, UAMICAO #### [place] [address] Ketones Ql (U) >=160 Abnormal Negative [facility] Comment on above: Performed By: #### U A, UAMICAO #### [place] [address] UA Appear Clear Normal Clear [facility] Comment on above: Performed By: #### U A, UAMICAO #### [place] [address] UA Blood Moderate Abnormal Negative [facility] Comment on above: Performed By: #### U A, UAMICAO #### [place] [address] UA Leuk Est Negative Normal Negative [facility] Comment on above: Performed By: #### U A, UAMICAO #### [place] [address] UA Nitrite Negative Normal Negative [facility] Comment on above: Performed By: #### U A, UAMICAO #### [place] [address] UA pH 6.0 Normal 5.0 - 8.0 [facility] Comment on above: Performed By: #### U A, UAMICAO #### [place] [address] UA Protein 100 mg/dL Abnormal Negative [facility] Comment on above: Performed By: #### U A, UAMICAO #### [place] [address] UA Spec Grav 1.025 Normal 1.015-1.025 [facility] Comment on above: Performed By: #### U A, UAMICAO #### [facility] [address] [place], [place] [address] UA Specimen Type Clean Catch Normal [facility] Comment on above: Performed By: #### U A, UAMICAO #### [facility] [address] [place], [place] [address] UA Urobilinogen 0.2 E.U./dL Normal 0.2-1.0 [facility] Comment on above: Performed By: #### U A, UAMICAO #### [facility] [address] [place], [place] [address] Urobilinogen (U) [Mass/Vol] Negative Normal Negative [facility] Comment on above: Performed By: #### U A, UAMICAO #### [place] [address] [place], [place] [address] XR CHEST 1 VIEWon 10-18-2024 XR CHEST [...] 10/18/2024 3:29:30 PM Ordering Provider: BROOKLYN BOSTON [facility] Gastroenterology Visit Repor ton 10-03-2024 Gastroenterology Visit Report [facility] [address] [place] [address] OFFICE VISIT Date of Service: 10/03/24 MR#: [id number] Acct: [id number] Name: WESTON GAMEZ Rep #: [id number] : 1985 Provider: Jaycob Argueta DO Age/Sex: 38/M [place] [facility] Status: Signed Intake Vital Signs 05/14/24 14:50 07/30/24 02:02 Height 5 ft 6 in 5 ft 6 in Intake Visit Reasons: 4 M FU 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 [facility] ED 01.25.24 abd pain with N/V x15 abd/pelvis CT 01.25.24 1. Urinary bladder distention may be transient/physiologic. Correlate clinically. 2. Mildly prominent bilateral inguinal lymph nodes, perhaps reactive. [facility] ED 01.27.24 - 01.29.24 abd pain N/V [...] the stomach. Retained food in the duodenum. [facility] ED 05.14.24 abd pain abd/pelvis CT 05.14.24 No acute [...] with pa (more content not included)... Normal [facility] Gastroenterology Visit Repor ton 08-15-2024 Gastroenterology Visit Report [facility] Gastroenterology [address] 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 [facility] ED 3 abd pain with N/V x15 abd/pelvis CT 01.25.24 1. Urinary bladder distention may be transient/physiologic. Correlate clinically. 2. Mildly prominent bilateral inguinal lymph nodes, perhaps reactive. [facility] ED 3 - 01.29.24 abd pain N/V [...] the stomach. Retained food in the duodenum. [facility] ED 7 abd pain abd/pelvis CT 7 No acute abdominal or pelvic abnormality. *BGI established 7.24 pt reports symptoms began about 3 weeks ago. Pt reports symptoms of occasional RLQ stabbing pain (more content not included)... Normal [facility] CNOVon 08-07-2024 [facility] Office Visit (FAMPWS ) -- WESTON GAMEZ ([id number]) 1985 [facility] Date Time Provider Department 08/07/24 9:20 AM [facility] During your visit today, we recorded the following information about you: Pulse Respiration Blood pressure Weight 97/minute 14/minute 132/85 71.2 kg Austin Camarena APRN.[facility] 08/07/2024 9:18 AM Signed Chief Complaint [...] Anxiety Screening Never done Covid-19 Vaccine( - season) due on 07/09/2024 Influenza Vaccine(1) [...] with Dr. Argueta as scheduled Austin Camarena APRN.CAD ADMINISTRATOR Allergies As of Date: 08/07/2024 (No Known Allergies) Date Reviewed: 08/07/2024 Reviewed by: Lisseth Morel MA - Fully Assessed Reason f (more content not included)... Normal [facility] Basic Metabolic Profile (BMP )on 08-01-2024 BUN/CRE 15.4 RATIO Normal 10-20 [facility] Comment on above: Performed By: #### L 100.0500, L500.2500 #### [facility] [address] [place], [address] CA,Total 8.9 mg/dL Normal 8.5-10.1 [facility] Comment on above: Performed By: #### L 100.0500, L500.2500 #### [facility] [address] [place], [address] Chloride [Moles/Vol] 107 mmol/L Normal 98-107 [facility] Comment on above: Performed By: #### L 100.0500, L500.2500 #### [facility] [address] [place], [address] CO2 [Moles/Vol] 24.0 mmol/L Normal 21.0-32.0 [facility] Comment on above: Performed By: #### L 100.0500, L500.2500 #### [facility] [address] [place], [address] Creatinine [Mass/Vol] 0.91 mg/dL Normal 0.70-1.30 [facility] Comment on above: Result Comment: The validity of the calculated GFR GFRAA in patients over 70 years has not been determined. Clinical correlation is essential. Performed By: #### L 100.0500, L500.2500 #### [facility] [address] [place], [address] ECRCL 99.32 ml/min Normal [facility] Comment on above: Performed By: #### L 100.0500, L500.2500 #### [facility] [address] [place], [address] EST GFR - AA 120 mL/min Normal >60 [facility] Comment on above: Result Comment: Afri can Macanese GFR Calc Performed By: #### L 100.0500, L500.2500 #### [facility] [address] [place], [address] GAP 6 Normal 5-15 [facility] Comment on above: Performed By: #### L 100.0500, L500.2500 #### [facility] [address] [place], [address] GFR/1.73 sq M.predicted among non-blacks MDRD (S/P/Bld) [Vol rate/Area] 99 mL/min/{1.73_m2} Normal >60 [facility] Comment on above: Result Comment: Non- GFR Calc Performed By: #### L 100.0500, L500.2500 #### [facility] [address] [place], [address] Glucose [Mass/Vol] 199 mg/dL High 74-106 [facility] Comment on above: Result Comment: Fast ing Glucose result greater than or equal to 126 mg/dL suggests DIABETES MELLITUS per A.D.A. criteria. Performed By: #### L 100.0500, L500.2500 #### [facility] [address] [place], [address] Potassium [Moles/Vol] 3.7 mmol/L Normal 3.5-5.1 [facility] Comment on above: Performed By: #### L 100.0500, L500.2500 #### [facility] [address] [place], [address] Sodium [Moles/Vol] 137 mmol/L Normal 136-145 [facility] Comment on above: Performed By: #### L 100.0500, L500.2500 #### [facility] [address] [place], [address] Urea nitrogen [Mass/Vol] 14 mg/dL Normal 7-18 [facility] Comment on above: Performed By: #### L 100.0500, L500.2500 #### [facility] [address] [place], [address] Bedside Glucoseon 08-01-2024 FINGERSTICK GLU 225 mg/dL High [address] [place] [address] Comment on above: Result Comment: CORINNA GEMENT OF PATIENT CARE PER NURSING PROTOCOL Performed By: #### L 500.2500 #### [facility] [address] [place], [address] FINGERSTICK GLU 210 mg/dL High [address] [place] [address] Comment on above: Result Comment: CORINNA GEMENT OF PATIENT CARE PER NURSING PROTOCOL Performed By: #### L 501.080 #### [facility] [address] [place], [address] FINGERSTICK GLU 348 mg/dL High [facility]106 [facility] Comment on above: Result Comment: CORINNA GEMENT OF PATIENT CARE PER NURSING PROTOCOL Performed By: #### L 100.0500, L500.2500 #### [facility] [address] [place], [address] CBC-Complete Blood Cnt No Di ffon 08-01-2024 Erythrocyte distribution width (RBC) [Ratio] 12.7 % Normal 11.6-14.6 [facility] Comment on above: Performed By: #### L 100.0500, L500.2500 #### [facility] [address] [place], [address] Hematocrit (Bld) [Volume fraction] 34.0 % Low 40-54 [facility] Comment on above: Performed By: #### L 100.0500, L500.2500 #### [facility] [address] [place], [address] Hemoglobin (Bld) [Mass/Vol] 11.2 g/dL Low 13.0-16.5 [facility] Comment on above: Performed By: #### L 100.0500, L500.2500 #### [facility] [address] [place], [address] MCH (RBC) [Entitic mass] 28.6 pg Normal 27.0-32.0 [facility] Comment on above: Performed By: #### L 100.0500, L500.2500 #### [facility] [address] [place], [address] MCHC (RBC) [Mass/Vol] 32.9 g/dL Normal 32-36 [facility] Comment on above: Performed By: #### L 100.0500, L500.2500 #### [facility] [address] [place], [address] MCV (RBC) [Entitic vol] 86.7 fL Normal 80-94 [facility] Comment on above: Performed By: #### L 100.0500, L500.2500 #### [facility] [address] [place], [address] Platelet mean volume (Bld) [Entitic vol] 9.8 fL Normal 6.2-12.0 [facility] Comment on above: Performed By: #### L 100.0500, L500.2500 #### [facility] [address] [place], [address] Platelets (Bld) [#/Vol] 361 10*3/uL Normal 150-450 [facility] Comment on above: Performed By: #### L 100.0500, L500.2500 #### [facility] [address] [place], [address] RBC (Bld) [#/Vol] 3.92 10*6/uL Low 4.6-6.2 [facility] Comment on above: Performed By: #### L 100.0500, L500.2500 #### [facility] [address] [place], [address] RDW SD 40.0 fl Normal 35.1-43.9 [facility] Comment on above: Performed By: #### L 100.0500, L500.2500 #### [facility] [address] [place], [address] WBC (Bld) [#/Vol] 12.1 10*3/uL High 4.4-11.0 [facility] Comment on above: Performed By: #### L 100.0500, L500.2500 #### [facility] [address] [place], [address] MR/PN.Deny 08-01-2024 MR/PN.HEBER [facility] Medical Records Department [address] [place] [address] Progress Note - GI 08/01/24 1727 MR#: [id number] Acct: [id number] Name: WESTON GAMEZ Rep #: [id number] : 1985 38 From: Jaycob Friend DO PCP: Austin Camarena, WEATHER STRIP INSTALLER-C Status:DIS KINSEY Location: MS3 [id number] Subjective Subjective Patient is abdominal pain is [...] stable Charges/Coding Visit Charges Inpatient E M: 02822 Subs Hosp L3 08/01/24 6610 Cosigner Signature (if applicable): CC: Signed Normal [facility] Basic Metabolic Profile (BMP )on 07-31-2024 BUN Normal 7-18 [facility] Comment on above: Result Comment: Canc elled via OM: MD Ordered Performed By: #### L 100.0500, L500.2500 #### [facility] [address] [place], [address] BUN/CRE Normal 10-20 [facility] Comment on above: Result Comment: Canc elled via OM: MD Ordered Performed By: #### L 100.0500, L500.2500 #### [facility] [address] [place], [address] CA,Total Normal 8.5-10.1 [facility] Comment on above: Result Comment: Canc elled via OM: MD Ordered Performed By: #### L 100.0500, L500.2500 #### [facility] [address] [place], [address] CL Normal 98-107 [facility] Comment on above: Result Comment: Canc elled via OM: MD Ordered Performed By: #### L 100.0500, L500.2500 #### [facility] [address] [place], [address] CO2 Normal 21.0-32.0 [facility] Comment on above: Result Comment: Canc elled via OM: MD Ordered Performed By: #### L 100.0500, L500.2500 #### [facility] [address] [place], [address] CREAT,SERUM Normal 0.70-1.30 [facility] Comment on above: Result Comment: Canc elled via OM: MD Ordered Performed By: #### L 100.0500, L500.2500 #### [facility] [address] [place], [address] EST GFR Normal >60 [facility] Comment on above: Result Comment: Canc elled via OM: MD Ordered Performed By: #### L 100.0500, L500.2500 #### [facility] [address] [place], [address] EST GFR - AA Normal >60 [facility] Comment on above: Result Comment: Canc elled via OM: MD Ordered Performed By: #### L 100.0500, L500.2500 #### [facility] [address] [place], [address] GAP Normal 5-15 [facility] Comment on above: Result Comment: Canc elled via OM: MD Ordered Performed By: #### L 100.0500, L500.2500 #### [facility] [address] [place], [address] GLU Normal 74-106 [facility] Comment on above: Result Comment: Canc elled via OM: MD Ordered Performed By: #### L 100.0500, L500.2500 #### [facility] [address] [place], [address] Potassium Normal 3.5-5.1 [facility] Comment on above: Result Comment: Canc elled via OM: MD Ordered Performed By: #### L 100.0500, L500.2500 #### [facility] [address] [place], [address] Basic Metabolic Profile (BMP) Normal 136-145 [facility] Comment on above: Result Comment: Canc elled via OM: MD Ordered Performed By: #### L 100.0500, L500.2500 #### [facility] [address] [place], [address] Bedside Glucoseon 07-31-2024 FINGERSTICK GLU 169 mg/dL High 74-106 [facility] Comment on above: Result Comment: CORINNA VELEZ OF PATIENT CARE PER NURSING PROTOCOL Performed By: #### L 100.0500, L500.2500 #### [facility] [address] [place], [address] FINGERSTICK GLU 87 mg/dL Normal 74-106 [facility] Comment on above: Result Comment: CORINNA GEMENT OF PATIENT CARE PER NURSING PROTOCOL Performed By: #### L 100.0500, L500.2500 #### [facility] [address] [place], [address] FINGERSTICK GLU 102 mg/dL Normal 74-106 [facility] Comment on above: Result Comment: CORINNA GEMENT OF PATIENT CARE PER NURSING PROTOCOL Performed By: #### L 100.0500, L500.2500 #### [facility] [address] [place], [address] FINGERSTICK GLU 114 mg/dL High 74-106 [facility] Comment on above: Result Comment: CORINNA GEMENT OF PATIENT CARE PER NURSING PROTOCOL Performed By: #### L 100.0500, L500.2500 #### [facility] [address] [place], [address] CBC-Complete Blood Cnt No [facility] Erythrocyte distribution width (RBC) [Ratio] 13.0 % Normal 11.6-14.6 [facility] Comment on above: Performed By: #### L 100.0500, L500.2500 #### [facility] [address] [place], [address] Hematocrit (Bld) [Volume fraction] 36.7 % Low 40-54 [facility] Comment on above: Performed By: #### L 100.0500, L500.2500 #### [facility] [address] [place], [address] Hemoglobin (Bld) [Mass/Vol] 11.7 g/dL Low 13.0-16.5 [facility] Comment on above: Performed By: #### L 100.0500, L500.2500 #### [facility] [address] [place], [address] MCH (RBC) [Entitic mass] 28.4 pg Normal 27.0-32.0 [facility] Comment on above: Performed By: #### L 100.0500, L500.2500 #### [facility] [address] [place], [address] MCHC (RBC) [Mass/Vol] 31.9 g/dL Low 32-36 [facility] Comment on above: Performed By: #### L 100.0500, L500.2500 #### [facility] [address] [place], [address] MCV (RBC) [Entitic vol] 89.1 fL Normal 80-94 [facility] Comment on above: Performed By: #### L 100.0500, L500.2500 #### [facility] [address] [place], [address] Platelet mean volume (Bld) [Entitic vol] 9.2 fL Normal 6.2-12.0 [facility] Comment on above: Performed By: #### L 100.0500, L500.2500 #### [facility] [address] [place], [address] Platelets (Bld) [#/Vol] 356 10*3/uL Normal 150-450 [facility] Comment on above: Performed By: #### L 100.0500, L500.2500 #### [facility] [address] [place], [address] RBC (Bld) [#/Vol] 4.12 10*6/uL Low 4.6-6.2 [facility] Comment on above: Performed By: #### L 100.0500, L500.2500 #### [facility] [address] [place], [address] RDW SD 42.5 fl Normal 35.1-43.9 [facility] Comment on above: Performed By: #### L 100.0500, L500.2500 #### [facility] [address] [place], [address] WBC (Bld) [#/Vol] 9.9 10*3/uL Normal 4.4-11.0 [facility] Comment on above: Performed By: #### L 100.0500, L500.2500 #### [facility] [address] [place], [address] EGD Reporton 07-31-2024 EGD Report [facility] Medical Records Department [address] [place] [address] EGD Report MR#: [id number] Acct: [id number] Name: WESTON GAMEZ Rep #: [id number] : 1985 38 From: Jaycob Argueta DO [...] psychiatric disorders Procedure Code(s): --- Professional --- 58147, Esophagogastroduodenoscopy , flexible, transoral; with biopsy, single or multiple CPT copyright 2021 [employer]. All rights reserved. The codes documented in this report are preliminary and upon gynecology teacher review may be revised to meet current compliance requirements. Jaycob Argueta DO 07/31/2024 1:35:10 PM This report has been signed electronically. Number of Addenda: 0 Note Initiated On: 07/31/2024 1:01 PM 07/31/24 8305 Date Jaycob Baer Signature: Date (if indicated) CC: WEATHER STRIP INSTALLER-C Austin Camarena; Jaycob Argueta, DO Date Dictated: 07/31/24 1301 Date Transcribed: Drawing Machine Operator: KAROLYN Signed Normal [facility] H Pylori (initial)on 024 H Pylori (initial) ------ Patient Age/Sex Location Account Attending Physician WESTON GAMEZ 38/M MS3 [id number] Dr. Victoria Davey, DO Specimen: [id number] Received: 08/01/24 Status: SILVANO Almeida Num: [id number] Spec Type: IMMUNO Subm Dr: Jaycob Argueta, PHYSICIAN INSTITUTION [address] [address] SPECIMEN INFORMATION: Tissue Source: A- Gastric cardia Clinical Info: Intractable vomiting with nausea, hematemesis Specimen Number: [id number] CPT code: 41199 METHODOLOGY: Deparaffinized sections of prefer/formalin-fixed tissue or [...] developed and their performance characteristics determined by [facility]. They may not have been cleared or approved by the U.S. Food and Drug Administration. The FDA has determined that such clearance or approval is not necessary. The above immunohistochemical/dualIS H markers are ordered and reviewed by the Pathologist. INTERPRETATION: A. Gastric cardia, biopsy: Positive for Helicobacter pylori organisms. 08/02/2024 Signed (signature on file) Dr. Gian Pham MD 08/02/24 1402 Normal [facility] Comment on above: Performed By: #### P H.PYLORI ####[facility] [address] [facility] [place], [address] MR/POSTOP.Ann 07-31-2024 MR/POSTOP.DAMARIS [facility] Medical Records Department [address] [place] [address] Anesthesia Postop Eval I 07/31/24 1330 MR#: [id number] Acct: [id number] Name: WESTON GAMEZ Rep #: [id number] : 1985 38 From: Jez Burnett PCP: ONEL GellerC Status:ADM KINSEY Y Race: AA Location: [place] [id number] Anesthesia: Postop Eval I Current Vital Signs [...] 1 completed: Yes 07/31/24 1332 Date Jez Noelignrudolph Signature: Date CC: Signed Normal [facility] MR/[id number] 07-31-2024 [facility] Medical Records Department [address] [place] [address] Anesthesia Postop Eval II 07/31/24 1559 MR#: [id number] Acct: [id number] Name: WESTON GAMEZ Rep #: [id number] : 1985 38 From: Codey Queen MD PCP: Austin Camarena NP-C Status:ADM KINSEY Y Race: AA Location: [facility] [id number] Anesthesia Postop Eval I Sum Postop Eval [...] Codey Garcia Signature: Date CC: Signed Normal [facility] Special Stain Group Ion - Special Stain Group I -------- Patient Age/Sex Location Account Attending Physician WESTON GAMEZ 38/M MS[address] [id number] Dr. Victoria Davey DO Specimen: [id number] Received: 08/01/24 Status: SILVANO Almeida Num: [id number] Spec Type: EGD BIOPSY Subm Dr: Jaycob Argueta DO HEADER OPERATION: EGD with biopsies PRE-OP DIAGNOSIS: [...] for Helicobacter pylori will be reported separately ([id number]). B. Alcian blue/PAS stain with matched control [...] Account Attending Physician WESTON GAMEZ 38/M MS3 [id number] Dr. Victoria Davey, DO one cassetteBel Oliver 08/01/2024 TC:2 CPT:50211o4,80103 Patient Age/Sex Location Account Attending Physician WESTON GAMEZ 38/M MS3 [id number] Dr. Victoria Davey, DO Signed (signature on file) Dr. Gian Pham MD 08/02/24 1403 Normal [facility] Comment on above: Performed By: #### P SSI ####[facility] [address] [place], [place], [id number] Bedside Glucoseon 07-30-2024 FINGERSTICK GLU 142 mg/dL High 74-106 [facility] Comment on above: Result Comment: CORINNA AGUSTIN OF PATIENT CARE PER NURSING PROTOCOL Performed By: #### L 100.0500, L500.2500 #### [facility] [address] [place], [address] FINGERSTICK GLU 212 mg/dL High 74-106 [facility] Comment on above: Result Comment: CORINNA GEMENT OF PATIENT CARE PER NURSING PROTOCOL Performed By: #### L 501.080 ####[facility] [address] [place], [address] FINGERSTICK GLU 197 mg/dL High 74-106 [facility] Comment on above: Result Comment: CORINNA GEMENT OF PATIENT CARE PER NURSING PROTOCOL Performed By: #### L 500.2500 #### [facility] [address] [place], [address] CBC W/Diff, Automatedon 07-10-2023 Absolute Lymph 3.12 X10 3/uL Normal 0.83-4.51 [facility] Comment on above: Performed By: #### L 500.4050, L100.0100, L501.2450 ####[facility] [address] [place], [address] Absolute Neut 5.6 X10 3/uL Normal 2.0-7.7 [facility] Comment on above: Performed By: #### L 500.4050, L100.0100, L501.2450 ####[facility] [address] [place], [address] Basophils/100 WBC (Bld) 0.4 % Normal 0-1 [facility] Comment on above: Performed By: #### L 500.4050, L100.0100, L501.2450 ####[facility] [address] [place], [address] Eosinophils/100 WBC (Bld) 0.7 % Normal 0-5 [facility] Comment on above: Performed By: #### L 500.4050, L100.0100, L501.2450 ####[facility] [address] [place], [address] Erythrocyte distribution width (RBC) [Ratio] 12.9 % Normal 11.6-14.6 [facility] Comment on above: Performed By: #### L 500.4050, L100.0100, L501.2450 ####[facility] [address] [place], [address] Hematocrit (Bld) [Volume fraction] 34.8 % Low 40-54 [facility] Comment on above: Performed By: #### L 500.4050, L100.0100, L501.2450 ####[facility] [address] [place], [address] Hemoglobin (Bld) [Mass/Vol] 11.4 g/dL Low 13.0-16.5 [facility] Comment on above: Performed By: #### L 500.4050, L100.0100, L501.2450 ####[facility] [address] [place], [address] IG% 0.200 Normal 0.0-0.9 [facility] Comment on above: Result Comment: IG% - Immature Granulocytes (promyelocytes, myelocytes and metamyelocytes) > 1% indicates that a LEFT SHIFT is Present. Performed By: #### L 500.4050, L100.0100, L501.2450 ####[facility] [address] [place], [address] Lymphocytes/100 WBC (Bld) 31.8 % Normal 19-41 [facility] Comment on above: Performed By: #### L 500.4050, L100.0100, L501.2450 ####[facility] [address] [place], [address] MCH (RBC) [Entitic mass] 28.6 pg Normal 27.0-32.0 [facility] Comment on above: Performed By: #### L 500.4050, L100.0100, L501.2450 ####[facility] [address] [place], [address] MCHC (RBC) [Mass/Vol] 32.8 g/dL Normal 32-36 [facility] Comment on above: Performed By: #### L 500.4050, L100.0100, L501.2450 ####[facility] [address] [place], [address] MCV (RBC) [Entitic vol] 87.4 fL Normal 80-94 [facility] Comment on above: Performed By: #### L 500.4050, L100.0100, L501.2450 ####[facility] [address] [place], [address] Monocytes/100 WBC (Bld) 10.0 % Normal 0-10 [facility] Comment on above: Performed By: #### L 500.4050, L100.0100, L501.2450 ####[facility] [address] [place], [address] Neutrophils/100 WBC (Bld) 56.9 % Normal 47-70 [facility] Comment on above: Performed By: #### L 500.4050, L100.0100, L501.2450 ####[facility] [address] [place], [address] Nucleated RBC (Bld) [#/Vol] 0 10*3/uL Normal 0-5 [facility] Comment on above: Performed By: #### L 500.4050, L100.0100, L501.2450 ####[facility] [address] [place], [address] Platelet mean volume (Bld) [Entitic vol] 9.8 fL Normal 6.2-12.0 [facility] Comment on above: Performed By: #### L 500.4050, L100.0100, L501.2450 ####[facility] [address] [place], [address] Platelets (Bld) [#/Vol] 349 10*3/uL Normal 150-450 [facility] Comment on above: Performed By: #### L 500.4050, L100.0100, L501.2450 ####[facility] [address] [place], [address] RBC (Bld) [#/Vol] 3.98 10*6/uL Low 4.6-6.2 [facility] Comment on above: Performed By: #### L 500.4050, L100.0100, L501.2450 ####[facility] [address] [place], [address] RDW SD 41.4 fl Normal 35.1-43.9 [facility] Comment on above: Performed By: #### L 500.4050, L100.0100, L501.2450 ####[facility] [address] [place], [address] WBC (Bld) [#/Vol] 9.8 10*3/uL Normal 4.4-11.0 [facility] Comment on above: Performed By: #### L 500.4050, L100.0100, L501.2450 ####[facility] [address] [place], [address] Comprehensive Metabolic Prof [facility] 07-30-2024 Albumin [Mass/Vol] 3.3 g/dL Normal 3.2-5.0 [facility] Comment on above: Performed By: #### L 500.2500 #### [facility] [address] [place], [address] Albumin/Globulin [Mass ratio] 0.9 {ratio} Normal 0.9-2.4 [facility] Comment on above: Performed By: #### L 500.2500 #### [facility] [address] [place], [address] ALK P 82 U/L Normal 45-117 [facility] Comment on above: Performed By: #### L 500.2500 #### [facility] [address] [place], [address] ALT [Catalytic activity/Vol] 18 U/L Normal 16-61 [facility] Comment on above: Performed By: #### L 500.2500 #### [facility] [address] [place], [address] AST [Catalytic activity/Vol] 27 U/L Normal 15-37 [facility] Comment on above: Performed By: #### L 500.2500 #### [facility] [address] [place], [address] Bilirubin [Mass/Vol] 0.60 mg/dL Normal 0.20-1.00 [facility] Comment on above: Result Comment: For patients on eltrombopag therapy, use of Dimension Fannin TBIL is not recommended. Performed By: #### L 500.2500 #### [facility] [address] [place], [address] BUN/CRE 17.4 RATIO Normal 10-20 [facility] Comment on above: Performed By: #### L 500.2500 #### [facility] [address] [place], [address] CA,Total 8.5 mg/dL Normal 8.5-10.1 [facility] Comment on above: Performed By: #### L 500.2500 #### [facility] [address] [place], [address] Chloride [Moles/Vol] 107 mmol/L Normal 98-107 [facility] Comment on above: Performed By: #### L 500.2500 #### [facility] [address] [place], [address] CO2 [Moles/Vol] 22.0 mmol/L Normal 21.0-32.0 [facility] Comment on above: Performed By: #### L 500.2500 #### [facility] [address] [place], [address] Creatinine [Mass/Vol] 0.92 mg/dL Normal 0.70-1.30 [facility] Comment on above: Result Comment: The validity of the calculated GFR GFRAA in patients over 70 years has not been determined. Clinical correlation is essential. Performed By: #### L 500.2500 #### [facility] [address] [place], [address] ECRCL 98.24 ml/min Normal [facility] Comment on above: Performed By: #### L 500.2500 #### [facility] [address] [place], [address] EST GFR - AA 118 mL/min Normal >60 [facility] Comment on above: Result Comment: Afri can Macanese GFR Calc Performed By: #### L 500.2500 #### [facility] [address] [place], [address] GAP 7 Normal 5-15 [facility] Comment on above: Performed By: #### L 500.2500 #### [facility] [address] [place], [address] GFR/1.73 sq M.predicted among non-blacks MDRD (S/P/Bld) [Vol rate/Area] 98 mL/min/{1.73_m2} Normal >60 [facility] Comment on above: Result Comment: Non- GFR Calc Performed By: #### L 500.2500 #### [facility] [address] [place], [address] Globulin (S) [Mass/Vol] 3.7 g/dL Normal 2.2-4.2 [facility] Comment on above: Performed By: #### L 500.2500 #### [facility] [address] [place], [address] Glucose [Mass/Vol] 182 mg/dL High 74-106 [facility] Comment on above: Result Comment: Fast ing Glucose result greater than or equal to 126 mg/dL suggests DIABETES MELLITUS per A.D.A. criteria. Performed By: #### L 500.2500 #### [facility] [address] [place], [address] Potassium [Moles/Vol] 4.0 mmol/L Normal 3.5-5.1 [facility] Comment on above: Performed By: #### L 500.2500 #### [facility] [address] [place], [address] Sodium [Moles/Vol] 136 mmol/L Normal 136-145 [facility] Comment on above: Performed By: #### L 500.2500 #### [facility] [address] [place], [address] T PROT 7.0 g/dL Normal 6.4-8.2 [facility] Comment on above: Performed By: #### L 500.2500 #### [facility] [address] [place], [address] Urea nitrogen [Mass/Vol] 16 mg/dL Normal 7-18 [facility] Comment on above: Performed By: #### L 500.2500 #### [facility] [address] [place], [address] H AND P Exam - Hospitaliston 07-30-2024 H&P Exam - Hospitalist [facility] Medical Records Department [address] [place] [address] H P Exam - Hospitalist 07/30/24 0049 MR#: [id number] Acct: [id number] Name: WESTON GAMEZ Rep #: [id number] : 1985 38 From: Brenda Hollins MD PCP: Austin Camarena, WEATHER STRIP INSTALLER-C Status:REG ER Location: ED HPI - General [...] gastroenterology outpatient who now represents to the [facility] ED on 07/28/24 secondary to recurrent epigastric [...] as Ativan 0.5 mg IV x 1. [facility] Medical History (Updated 07/30/24 @ 01:[address] Brenda Hollins MD) Former tobacco use Cannabis use disorder Hypertension Schizophrenia Anxiety Depression Migraines Type 2 diabetes mellitus with hyperglycemia Schizo-affective schizophrenia Bipolar 1 disorder Diabetes mellitus Home Medications ???Medication ???Instructions ???Recorded ???Last Taken ???Type pen needle, diabetic 32 gauge x #100 ea 03/29/24 Unknown Rx /32 (BD Ultra-Fine Lizzeth Pen Needle) insulin lispro 100 unit/mL 6 unit subcut TID 03/30/24 Unknown History subcutaneous pen (Humalog KwikPen (U-100) Insulin) lisinopril 20 mg tablet 20 mg PO DAILY #30 tabs 05/01/24 Unknown Rx pantoprazole 40 mg tablet,delayed 40 mg PO BID #60 tabs 05/01/24 Unknown Rx release blood-glucose meter,continuous #1 ea 05/04/24 Unknown Rx (Dexcom G7 Map Colorer) gabapentin 100 mg capsule 200 mg PO [...] (Updated 07/30 (more content not included)... Normal [facility] Lipaseon 07-30-2024 Lipase [Catalytic activity/Vol] 31 U/L Normal 13-75 [facility] Comment on above: Result Comment: Lacey melendez note: LIPASE revised reference range effective 23. New Lipase methodology. Expected to produce lower values than the previous assay method. NEW Reference Range: 13 - 75 U/L Performed By: #### L 500.2500 #### [facility] [address] [facility] [place], [address] MR/CON.PCM.GIon 07-30-2024 MR/CON.PCM.GI [facility] Medical Records Department [address] [place] [address] Consultation - GI 07/30/24 1045 MR#: [id number] Acct: [id number] Name: WESTON GAMEZ Rep #: [id number] : 1985 38 From: Jaycob Friend DO PCP: JIE Geller Status:ADM KINSEY Location: [place] [address] HPI Consult Data Date of Consult: 07/30/24 HPI Narrative Reason for Consultation: Abdominal pain with nausea vomiting HPI Narrative: WESTON GAMEZ, is a 38 M who presented to [facility] ED on 07/29/2024 with intractable nausea [...] abdominal pain. Some cramping. Still some nausea. [facility] Medical History Former tobacco use Cannabis use [...] #1 ea 05/04/24 Unknown Rx (Dexcom G7 Map Colorer) gabapentin 100 mg capsule 200 mg PO [...] vascular acci (more content not included)... Normal [facility] Magnesiumon 07-30-2024 Magnesium [Mass/Vol] 1.7 mg/dL Normal 1.6-2.6 [facility] Comment on above: Order Comment: Comme nts: May add to ED labsComments: may add to ED labs Result Comment: Mode rate Hemolysis, Result may be falsely increased. Performed By: #### L 501.4870, L501.5200 ####[facility] [address] [place], [address] Phosphoruson 07-30-2024 Phosphate [Mass/Vol] 2.4 mg/dL Low 2.5-4.9 [facility] Comment on above: Order Comment: Comme nts: May add to ED labsComments: may add to ED labs Performed By: #### L 501.2300, L501.5200 ####[facility] [address] [place], [address] Acetone Serumon 07-29-2024 ACETONE SERUM Negative Normal NEG [facility] Comment on above: Performed By: #### L 501.6900 ####[facility] [address] [place], [address] Basic Metabolic Profile (BMP )on 07-29-2024 BUN/CRE 19.8 RATIO Normal 10-20 [facility] Comment on above: Performed By: #### L 100.0500, L500.2500 #### [facility] [address] [place], [address] CA,Total 9.6 mg/dL Normal 8.5-10.1 [facility] Comment on above: Performed By: #### L 100.0500, L500.2500 #### [facility] [address] [place], [address] Chloride [Moles/Vol] 99 mmol/L Normal 98-107 [facility] Comment on above: Performed By: #### L 100.0500, L500.2500 #### [facility] [address] [place], [address] CO2 [Moles/Vol] 23.0 mmol/L Normal 21.0-32.0 [facility] Comment on above: Performed By: #### L 100.0500, L500.2500 #### [facility] [address] [place], [address] Creatinine [Mass/Vol] 1.26 mg/dL Normal 0.70-1.30 [facility] Comment on above: Result Comment: The validity of the calculated GFR GFRAA in patients over 70 years has not been determined. Clinical correlation is essential. Performed By: #### L 100.0500, L500.2500 #### [facility] [address] [place], [address] ECRCL 71.73 ml/min Normal [facility] Comment on above: Performed By: #### L 100.0500, L500.2500 #### [facility] [address] [place], [address] EST GFR - AA 82 mL/min Normal >60 [facility] Comment on above: Result Comment: Afri can Macanese GFR Calc Performed By: #### L 100.0500, L500.2500 #### [facility] [address] [place], [address] GAP 10 Normal 5-15 [facility] Comment on above: Performed By: #### L 100.0500, L500.2500 #### [facility] [address] [place], [address] GFR/1.73 sq M.predicted among non-blacks MDRD (S/P/Bld) [Vol rate/Area] 68 mL/min/{1.73_m2} Normal >60 [facility] Comment on above: Result Comment: Non- GFR Calc Performed By: #### L 100.0500, L500.2500 #### [facility] [address] [place], [address] Glucose [Mass/Vol] 244 mg/dL High 74-106 [facility] Comment on above: Result Comment: Gluc ose result greater than or equal to 200 mg/dL suggests DIABETES MELLITUS per A.D.A. criteria. Performed By: #### L 100.0500, L500.2500 #### [facility] [address] [place], [address] Potassium [Moles/Vol] 4.7 mmol/L Normal 3.5-5.1 [facility] Comment on above: Result Comment: Mode rate Hemolysis, Result may be falsely increased. Performed By: #### L 100.0500, L500.2500 #### [facility] [address] [place], [address] Sodium [Moles/Vol] 132 mmol/L Low 136-145 [facility] Comment on above: Performed By: #### L 100.0500, L500.2500 #### [facility] [address] [place], [address] Urea nitrogen [Mass/Vol] 25 mg/dL High 7-18 [facility] Comment on above: Performed By: #### L 100.0500, L500.2500 #### [facility] [address] [place], [address] CBC W/Diff, Automatedon 09-2 -2023 Absolute Lymph 1.98 X10 3/uL Normal 0.83-4.51 [facility] Comment on above: Performed By: #### L 100.0100 ####[facility] [address] [place], [address] Absolute Neut 8.4 X10 3/uL High 2.0-7.7 [facility] Comment on above: Performed By: #### L 100.0100 ####[facility] [address] [place], [address] Basophils/100 WBC (Bld) 0.3 % Normal 0-1 [facility] Comment on above: Performed By: #### L 100.0100 ####[facility] [address] [place], [address] Eosinophils/100 WBC (Bld) 0.1 % Normal 0-5 [facility] Comment on above: Performed By: #### L 100.0100 ####[facility] [address] [place], [address] Erythrocyte distribution width (RBC) [Ratio] 12.9 % Normal 11.6-14.6 [facility] Comment on above: Performed By: #### L 100.0100 ####[facility] [address] [place], [address] Hematocrit (Bld) [Volume fraction] 38.9 % Low 40-54 [facility] Comment on above: Performed By: #### L 100.0100 ####[facility] [address] [place], [address] Hemoglobin (Bld) [Mass/Vol] 12.9 g/dL Low 13.0-16.5 [facility] Comment on above: Performed By: #### L 100.0100 ####[facility] [address] [place], [address] IG% 0.400 Normal 0.0-0.9 [facility] Comment on above: Result Comment: IG% - Immature Granulocytes (promyelocytes, myelocytes and metamyelocytes) > 1% indicates that a LEFT SHIFT is Present. Performed By: #### L 100.0100 ####[facility] [address] [place], [address] Lymphocytes/100 WBC (Bld) 17.7 % Low 19-41 [facility] Comment on above: Performed By: #### L 100.0100 ####[facility] [address] [place], [address] MCH (RBC) [Entitic mass] 28.7 pg Normal 27.0-32.0 [facility] Comment on above: Performed By: #### L 100.0100 ####[facility] [address] [place], [address] MCHC (RBC) [Mass/Vol] 33.2 g/dL Normal 32-36 [facility] Comment on above: Performed By: #### L 100.0100 ####[facility] [address] [place], [address] MCV (RBC) [Entitic vol] 86.4 fL Normal 80-94 [facility] Comment on above: Performed By: #### L 100.0100 ####[facility] [address] [place], [address] Monocytes/100 WBC (Bld) 5.9 % Normal 0-10 [facility] Comment on above: Performed By: #### L 100.0100 ####[facility] [address] [place], [address] Neutrophils/100 WBC (Bld) 75.6 % High 47-70 [facility] Comment on above: Performed By: #### L 100.0100 ####[facility] [address] [place], [address] Nucleated RBC (Bld) [#/Vol] 0 10*3/uL Normal 0-5 [facility] Comment on above: Performed By: #### L 100.0100 ####[facility] [address] [place], [address] Platelet mean volume (Bld) [Entitic vol] 9.2 fL Normal 6.2-12.0 [facility] Comment on above: Performed By: #### L 100.0100 ####[facility] [address] [place], [address] Platelets (Bld) [#/Vol] 387 10*3/uL Normal 150-450 [facility] Comment on above: Performed By: #### L 100.0100 ####[facility] [address] [place], [address] RBC (Bld) [#/Vol] 4.50 10*6/uL Low 4.6-6.2 [facility] Comment on above: Performed By: #### L 100.0100 ####[facility] [address] [place], [address] RDW SD 40.7 fl Normal 35.1-43.9 [facility] Comment on above: Performed By: #### L 100.0100 ####[facility] [address] [place], [address] WBC (Bld) [#/Vol] 11.2 10*3/uL High 4.4-11.0 [facility] Comment on above: Performed By: #### L 100.0100 ####[facility] [address] [place], [address] Chest 1 View (Portable)on Chest 1 View (Portable) [facility] Imaging Services [address] [place], [place] [address] Chest 1 View (Portable) MR#: [id number] Acct: [id number] Name: WESTON GAMEZ Rep #: [id number] : 1985 M 38 From: Yang Roland MD PCP: Austin Camarena, WEATHER STRIP INSTALLER-C Status: [facility] ER Study: Chest 1 View (Portable) Date of Exam: 07/29/24 Exam# [id number] Ordering Dr: Luis Alberto Walker MD [id number] STUDY: X-RAY CHEST REASON FOR EXAM: Male, [...] Roland MD at 23:46 EDT , CC: WEATHER STRIP INSTALLEROskar Camarena; Dr. Luis Alberto Walker MD Drawing Machine Operator: Signed Normal [facility] Emergency Department Summary on 07-29-2024 Emergency Department Summary [facility] Medical Records Department [address] [place] [address] Emergency Department Summary 07/29/24 MR#: [id number] Acct: [id number] Name: WESTON GAMEZ Rep #: [id number] : 1985 38 From: Luis Alberto Walker MD PCP: JIE Geller Status:ADM [place] Location: [place] [id number] HPI HPI - GI History of Present [...] he is not able to keep down. [facility] Medical History Hypertension Substance abuse Schizophrenia Anxiety [...] #1 ea 05/04/24 Unknown Rx (Dexcom G7 Map Colorer) gabapentin 100 mg capsule 200 mg PO [...] mucous membranes (more content not included)... Normal [facility] Lipaseon 07-29-2024 Lipase [Catalytic activity/Vol] 35 U/L Normal 13-75 [facility] Comment on above: Result Comment: Lacey melendez note: LIPASE revised reference range effective 23. New Lipase methodology. Expected to produce lower values than the previous assay method. NEW Reference Range: 13 - 75 U/L Performed By: #### L 100.0500, L500.2500 #### [facility] [address] [place] [id number] Venous Blood Gason 4 Blood Gas Type TERA Normal [facility] Comment on above: Performed By: #### L 500.2500 #### [facility] [address] [facility] [id number] CO2 [Moles/Vol] 23 mmol/L Normal 23-33 [facility] Comment on above: Performed By: #### L 500.2500 #### [facility] [address] [facility] [address] FI02 21.0 Normal [facility] Comment on above: Performed By: #### L 500.2500 #### [facility] [address] [place], [address] HCO3 (Bld) [Moles/Vol] 22 mmol/L Normal 22-26 [facility] Comment on above: Performed By: #### L 500.2500 #### [facility] [address] [place], [address] O2 Delivery Dev Room Air Normal [facility] Comment on above: Performed By: #### L 500.2500 #### [facility] [address] [place], [address] SITE Not entered Normal [facility] Comment on above: Performed By: #### L 500.2500 #### [facility] [address] [place], [address] VBG BE -3 mmol/L Low -1.0-3.5 [facility] Comment on above: Performed By: #### L 500.2500 #### [facility] [address] [place], [address] VBG pCO2 37.2 mmHg Low 41-51 [facility] Comment on above: Performed By: #### L 500.2500 #### [facility] [address] [place], [address] VBG pH 7.38 Normal 7.32-7.42 [facility] Comment on above: Performed By: #### L 500.2500 #### [facility] [address] [place], [address] VBG PO2 35 mmHg Normal 25-40 [facility] Comment on above: Performed By: #### L 500.2500 #### [facility] [address] [place], [address] VBG SO2 66 Normal 50-70 [facility] Comment on above: Performed By: #### L 500.2500 #### [facility] [address] [place], [address] Abdomen/Pelvis W IV Cont ONL Yon 07-28-2024 Abdomen/Pelvis W IV Cont ONLY [facility] Imaging Services [address] [place] [address] Abdomen/Pelvis W IV Cont ONLY MR#: [id number] Acct: [id number] Name: WESTON GAMEZ Rep #: [id number] : 1985 M 38 From: Lupillo Mejia MD PCP: JIE Geller Status: REG ER Study: Abdomen/Pelvis W IV Cont ONLY Date of Exam: Exam# [id number] Ordering Dr: Jose R Osorio DO [id number] INDICATION: abdominal pain EXAMINATION: CT Abdomen And [...] JIE Camarena; Dr. Jose R Osorio DO Drawing Machine Operator: Signed Normal [facility] CBC W/Diff, Automatedon 07-10-2023 Absolute Lymph 1.82 X10 3/uL Normal 0.83-4.51 [facility] Comment on above: Performed By: #### L 500.4050, L100.0100, L501.2450 #### [facility] [address] [place], [address] Absolute Neut 9.5 X10 3/uL High 2.0-7.7 [facility] Comment on above: Performed By: #### L 500.4050, L100.0100, L501.2450 #### [facility] [address] [place], [address] Basophils/100 WBC (Bld) 0.7 % Normal 0-1 [facility] Comment on above: Performed By: #### L 500.4050, L100.0100, L501.2450 #### [facility] [address] [place], [address] Eosinophils/100 WBC (Bld) 0.2 % Normal 0-5 [facility] Comment on above: Performed By: #### L 500.4050, L100.0100, L501.2450 #### [facility] [address] [place], [address] Erythrocyte distribution width (RBC) [Ratio] 12.5 % Normal 11.6-14.6 [facility] Comment on above: Performed By: #### L 500.4050, L100.0100, L501.2450 #### [facility] [address] [place], [address] Hematocrit (Bld) [Volume fraction] 38.9 % Low 40-54 [facility] Comment on above: Performed By: #### L 500.4050, L100.0100, L501.2450 #### [facility] [address] [place], [address] Hemoglobin (Bld) [Mass/Vol] 12.9 g/dL Low 13.0-16.5 [facility] Comment on above: Performed By: #### L 500.4050, L100.0100, L501.2450 #### [facility] [address] [place], [address] IG% 0.300 Normal 0.0-0.9 [facility] Comment on above: Result Comment: IG% - Immature Granulocytes (promyelocytes, myelocytes and metamyelocytes) > 1% indicates that a LEFT SHIFT is Present. Performed By: #### L 500.4050, L100.0100, L501.2450 #### [facility] [address] [place], [address] Lymphocytes/100 WBC (Bld) 14.8 % Low 19-41 [facility] Comment on above: Performed By: #### L 500.4050, L100.0100, L501.2450 #### [facility] [address] [place], [address] MCH (RBC) [Entitic mass] 28.5 pg Normal 27.0-32.0 [facility] Comment on above: Performed By: #### L 500.4050, L100.0100, L501.2450 #### [facility] [address] [place], [address] MCHC (RBC) [Mass/Vol] 33.2 g/dL Normal 32-36 [facility] Comment on above: Performed By: #### L 500.4050, L100.0100, L501.2450 #### [facility] [address] [place], [address] MCV (RBC) [Entitic vol] 86.1 fL Normal 80-94 [facility] Comment on above: Performed By: #### L 500.4050, L100.0100, L501.2450 #### [facility] [address] [place], [address] Monocytes/100 WBC (Bld) 6.4 % Normal 0-10 [facility] Comment on above: Performed By: #### L 500.4050, L100.0100, L501.2450 #### [facility] [address] [place], [address] Neutrophils/100 WBC (Bld) 77.6 % High 47-70 [facility] Comment on above: Performed By: #### L 500.4050, L100.0100, L501.2450 #### [facility] [address] [place], [address] Nucleated RBC (Bld) [#/Vol] 0 10*3/uL Normal 0-5 [facility] Comment on above: Performed By: #### L 500.4050, L100.0100, L501.2450 #### [facility] [address] [place], [address] Platelet mean volume (Bld) [Entitic vol] 9.7 fL Normal 6.2-12.0 [facility] Comment on above: Performed By: #### L 500.4050, L100.0100, L501.2450 #### [facility] [address] [place], [address] Platelets (Bld) [#/Vol] 385 10*3/uL Normal 150-450 [facility] Comment on above: Performed By: #### L 500.4050, L100.0100, L501.2450 #### [facility] [address] [place], [address] RBC (Bld) [#/Vol] 4.52 10*6/uL Low 4.6-6.2 [facility] Comment on above: Performed By: #### L 500.4050, L100.0100, L501.2450 #### [facility] [address] [place], [address] RDW SD 39.4 fl Normal 35.1-43.9 [facility] Comment on above: Performed By: #### L 500.4050, L100.0100, L501.2450 #### [facility] [address] [place], [address] WBC (Bld) [#/Vol] 12.3 10*3/uL High 4.4-11.0 [facility] Comment on above: Performed By: #### L 500.4050, L100.0100, L501.2450 #### [facility] [address] [place], [address] Comprehensive Metabolic Prof ilon 07-28-2024 Albumin [Mass/Vol] 4.1 g/dL Normal 3.2-5.0 [facility] Comment on above: Performed By: #### L 500.4050, L100.0100, L501.2450 #### [facility] [address] [place], [address] Albumin/Globulin [Mass ratio] 0.9 {ratio} Normal 0.9-2.4 [facility] Comment on above: Performed By: #### L 500.4050, L100.0100, L501.2450 #### [facility] [address] [place], [address] ALK P 110 U/L Normal 45-117 [facility] Comment on above: Performed By: #### L 500.4050, L100.0100, L501.2450 #### [facility] [address] [place], [address] ALT [Catalytic activity/Vol] 28 U/L Normal 16-61 [facility] Comment on above: Performed By: #### L 500.4050, L100.0100, L501.2450 #### [facility] [address] [place], [address] AST [Catalytic activity/Vol] 41 U/L High 15-37 [facility] Comment on above: Performed By: #### L 500.4050, L100.0100, L501.2450 #### [facility] [address] [place], [address] Bilirubin [Mass/Vol] 0.40 mg/dL Normal 0.20-1.00 [facility] Comment on above: Result Comment: For patients on eltrombopag therapy, use of Dimension Fannin TBIL is not recommended. Performed By: #### L 500.4050, L100.0100, L501.2450 #### [facility] [address] [place], [address] BUN/CRE 17.5 RATIO Normal 10-20 [facility] Comment on above: Performed By: #### L 500.4050, L100.0100, L501.2450 #### [facility] [address] [place], [address] CA,Total 9.3 mg/dL Normal 8.5-10.1 [facility] Comment on above: Performed By: #### L 500.4050, L100.0100, L501.2450 #### [facility] [address] [place], [address] Chloride [Moles/Vol] 100 mmol/L Normal 98-107 [facility] Comment on above: Performed By: #### L 500.4050, L100.0100, L501.2450 #### [facility] [address] [place], [address] CO2 [Moles/Vol] 21.0 mmol/L Normal 21.0-32.0 [facility] Comment on above: Performed By: #### L 500.4050, L100.0100, L501.2450 #### [facility] [address] [place], [address] Creatinine [Mass/Vol] 1.03 mg/dL Normal 0.70-1.30 [facility] Comment on above: Result Comment: The validity of the calculated GFR GFRAA in patients over 70 years has not been determined. Clinical correlation is essential. Performed By: #### L 500.4050, L100.0100, L501.2450 #### [facility] [address] [place], [address] ECRCL 87.75 ml/min Normal [facility] Comment on above: Performed By: #### L 500.4050, L100.0100, L501.2450 #### [facility] [address] [place], [address] EST GFR - AA 104 mL/min Normal >60 [facility] Comment on above: Result Comment: Afri can Macanese GFR Calc Performed By: #### L 500.4050, L100.0100, L501.2450 #### [facility] [address] [place], [address] GAP 12 Normal 5-15 [facility] Comment on above: Performed By: #### L 500.4050, L100.0100, L501.2450 #### [facility] [address] [place], [address] GFR/1.73 sq M.predicted among non-blacks MDRD (S/P/Bld) [Vol rate/Area] 86 mL/min/{1.73_m2} Normal >60 [facility] Comment on above: Result Comment: Non- GFR Calc Performed By: #### L 500.4050, L100.0100, L501.2450 #### [facility] [address] [place], [address] Globulin (S) [Mass/Vol] 4.6 g/dL High 2.2-4.2 [facility] Comment on above: Performed By: #### L 500.4050, L100.0100, L501.2450 #### [facility] [address] [place], [address] Glucose [Mass/Vol] 259 mg/dL High 74-106 [facility] Comment on above: Result Comment: Gluc ose result greater than or equal to 200 mg/dL suggests DIABETES MELLITUS per A.D.A. criteria. Performed By: #### L 500.4050, L100.0100, L501.2450 #### [facility] [address] [place], [address] Potassium [Moles/Vol] 3.7 mmol/L Normal 3.5-5.1 [facility] Comment on above: Performed By: #### L 500.4050, L100.0100, L501.2450 #### [facility] [address] [place], [address] Sodium [Moles/Vol] 133 mmol/L Low 136-145 [facility] Comment on above: Performed By: #### L 500.4050, L100.0100, L501.2450 #### [facility] [address] [place], [address] T PROT 8.7 g/dL High 6.4-8.2 [facility] Comment on above: Performed By: #### L 500.4050, L100.0100, L501.2450 #### [facility] [address] [place], [address] Urea nitrogen [Mass/Vol] 18 mg/dL Normal 7-18 [facility] Comment on above: Performed By: #### L 500.4050, L100.0100, L501.2450 #### [facility] [address] [place], [address] Emergency Department Summary on 07-28-2024 Emergency Department Summary [facility] Medical Records Department [address] [place] [address] Emergency Department Summary 07/28/24 MR#: [id number] Acct: [id number] Name: WESTON GAMEZ Rep #: [id number] : 1985 38 From: Jose R Osorio DO PCP: JIE Geller Status:REG ER Location: ED HPI History of Present Illness Chief Complaint: Abd Pain PFSH [facility] Medical History Hypertension Substance abuse Schizophrenia Anxiety [...] #1 ea 05/04/24 Unknown Rx (Dexcom G7 Map Colorer) gabapentin 100 mg capsule 200 mg PO [...] 99 97 Oxygen Delivery Method Room Air [facility] Narrative Medical decision making narrative: HISTORY OF [...] intact, 5/5 (more content not included)... Normal [facility] Lipaseon 07-28-2024 Lipase [Catalytic activity/Vol] 20 U/L Normal 13-75 [facility] Comment on above: Result Comment: Lacey melendez note: LIPASE revised reference range effective 23. New Lipase methodology. Expected to produce lower values than the previous assay method. NEW Reference Range: 13 - 75 U/L Performed By: #### L 500.4050, L100.0100, L501.2450 #### [facility] [address] [place], [address] Endocrinology Visit Reporton 07-05-2024 Endocrinology Visit Report [facility] 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 Funerals Required: No Accompanied by: Self Is patient in pain?: No Allergies No Known Allergies Allergy (Verified 07/05/24 10:14) Medications ???Medication ???Instructions ???Recorded ???Confirmed ???Type insulin glargine-yfgn 100 unit/mL 15 unit (0.15 mL) subcut QHS #15 mL 01/29/24 07/05/24 Rx (3 mL) subcutaneous pen pen needle, diabetic 32 gauge x #100 ea 03/29/24 07/05/24 Rx /32 (BD Ultra-Fine Lizzeth Pen Needle) insulin lispro 100 unit/mL 5 unit subcut TID 03/30/24 07/05/24 History subcutaneous pen (Humalog KwikPen (U-100) Insulin) blood-glucose sensor (Dental Kidz G7 #3 ea 04/06/24 07/05/24 Rx Sensor device) lisinopril 20 mg tablet 20 mg PO DAILY #30 tabs 05/01/24 07/05/24 Rx metoclopramide HCl 5 mg tablet 5 mg PO Q6H #120 tabs 05/01/24 07/05/24 Rx pantoprazole 40 mg tablet,delayed 40 mg PO BID #60 tabs 05/01/24 07/05/24 Rx release blood-glucose meter,continuous #1 ea 05/04/24 07/05/24 Rx (Dexcom G7 Map Colorer) gabapentin 100 mg capsule 200 mg PO TID 06/06/24 07/05/24 History insulin pump cart,automated,BT #10 ea 07/05/24 07/05/24 Rx (Omnipod 5 G6 Pods (Gen 5) subcutaneous cartridge) insulin pump cartridge,automated #1 ea 07/05/24 07/05/24 Rx dose,BT with controller subcutaneous (Omnipod 5 G6 Intro Kit (Gen 5) subcutaneous cartridge with controller) [facility] Medical History Hypertension Substance abuse Schizophrenia Anxiety [...] Heart Sounds (more content not included)... Normal [facility] .Auto Diffon 05-05-2024 Basophil, Absolute 0.1 10 3/mcL Normal 0.0-0.2 [facility] ([place]) Comment on above: Performed By: #### C TRISTEN NINO MDW, GFR, MG, CBC, ADIFF #### [address] [address] Basophils/100 WBC (Bld) 0.5 % Normal 0.0-2.5 [facility] ([place]) Comment on above: Performed By: #### C TRISTEN NINO MDW, GFR, MG, CBC, ADIFF #### [address] [address] Eosinophil, Absolute 0.0 10 3/mcL Normal 0.0-0.4 [facility] ([place]) Comment on above: Performed By: #### C TRISTEN NINO MDW, GFR, MG, CBC, ADIFF #### [address] [address] Eosinophils/100 WBC (Bld) 0.4 % Normal 0.0-7.0 [facility] ([place]) Comment on above: Performed By: #### C TRISTEN NINO MDW, GFR, MG, CBC, ADIFF #### [address] [address] Lymphocyte, Absolute 3.2 10 3/mcL Normal 0.8-3.9 [facility] ([place]) Comment on above: Performed By: #### C MICA, TRISTEN, MDW, GFR, MG, CBC, ADIFF #### [address] [address] Lymphocytes/100 WBC (Bld) 26.3 % Normal 10.0-50.0 [facility] ([place]) Comment on above: Performed By: #### C MP, ANEU, MDW, GFR, MG, CBC, ADIFF #### [address] [address] Monocyte, Absolute 1.1 10 3/mcL High 0.2-1.0 [facility] ([place]) Comment on above: Performed By: #### C MP, ANEU, MDW, GFR, MG, CBC, ADIFF #### [address] [address] Monocytes/100 WBC (Bld) 8.9 % Normal 1.7-13.0 [facility] ([place]) Comment on above: Performed By: #### C MP, ANEU, MDW, GFR, MG, CBC, ADIFF #### [address] [address] Neutrophils/100 WBC (Bld) 63.9 % Normal 37.0-80.0 [facility] ([place]) Comment on above: Performed By: #### C MP, ANEU, MDW, GFR, MG, CBC, ADIFF #### [address] [address] .GFRon 05-05-2024 GFR Non- 39 ml/min/1.73sqm Normal [facility] ([place]) Comment on above: Result Comment: GFR Population [...] ANEU, MDW, GFR, MG, CBC, ADIFF #### [address] [address] GFR 48 ml/min/1.73sqm Normal [facility] ([place]) Comment on above: Result Comment: GFR Population [...] ANEU, MDW, GFR, MG, CBC, ADIFF #### [address] [address] .MDWon 05-05-2024 Monocyte Distribution Width 14.94 Normal 0.00-20.00 [facility] ([place]) Comment on above: Result Comment: For ED adult patients suspected of sepsis, MDW<=20.0 does not rule out sepsis or risk of sepsis Performed By: #### C MP, ANEU, MDW, GFR, MG, CBC, ADIFF #### [address] [address] .NEUABSon 05-05-2024 Neutrophil, Absolute 7.9 10 3/mcL High 2.9-6.2 [facility] ([place]) Comment on above: Performed By: #### C MP, ANEU, MDW, GFR, MG, CBC, ADIFF #### [address] [address] CBCon 05-05-2024 Erythrocyte distribution width (RBC) [Ratio] 14.2 % Normal 11.5-14.5 [facility] ([place]) Comment on above: Performed By: #### C MICA, ANEU, MDW, GFR, MG, CBC, ADIFF #### [address] [address] Hematocrit (Bld) [Volume fraction] 42.4 % Normal 42.0-52.0 [facility] ([place]) Comment on above: Performed By: #### C MP, ANEU, MDW, GFR, MG, CBC, ADIFF #### [address] [address] Hgb 14.3 G/dL Normal 14.0-18.0 [facility] ([place]) Comment on above: Performed By: #### C MICA, ANEU, MDW, GFR, MG, CBC, ADIFF #### [address] [address] MCH (RBC) [Entitic mass] 29.8 pg Normal 27.0-31.2 [facility] ([place]) Comment on above: Performed By: #### C MICA, TRISTEN, MDW, GFR, MG, CBC, ADIFF #### [address] [address] MCHC 33.7 G/dL Normal 31.8-35.4 [facility] ([place]) Comment on above: Performed By: #### C MICA, TRISTEN, MDW, GFR, MG, CBC, ADIFF #### [address] [address] MCV (RBC) [Entitic vol] 88.5 fL Normal 80.0-94.0 [facility] ([place]) Comment on above: Performed By: #### C MICA, ANEU, MDW, GFR, MG, CBC, ADIFF #### [address] [address] Platelet 404 10 3/mcL High 130-400 [facility] ([place]) Comment on above: Performed By: #### C MP, ANEU, MDW, GFR, MG, CBC, ADIFF #### [address] [address] Platelet mean volume (Bld) [Entitic vol] 7.4 fL Normal 7.4-10.4 [facility] ([place]) Comment on above: Performed By: #### C MICA, ANEU, MDW, GFR, MG, CBC, ADIFF #### [address] [address] RBC 4.78 10 6/mcL Normal 4.04-6.13 [facility] ([place]) Comment on above: Performed By: #### C MP, ANEU, MDW, GFR, MG, CBC, ADIFF #### [address] [address] WBC 12.3 10 3/mcL High 4.6-10.8 [facility] ([place]) Comment on above: Performed By: #### C MICA, TRISTEN, MDW, GFR, MG, CBC, ADIFF #### [address] [address] CMPon 05-05-2024 Albumin Level 4.3 G/dL Normal 3.5-5.0 [facility] ([place]) Comment on above: Performed By: #### C MICA, TRISTEN, MDW, GFR, MG, CBC, ADIFF #### [address] [address] Albumin/Globulin [Mass ratio] 1.0 {ratio} Low 1.1-2.5 [facility] ([place]) Comment on above: Performed By: #### C MICA, ANEU, MDW, GFR, MG, CBC, ADIFF #### [address] [address] ALP [Catalytic activity/Vol] 98 U/L Normal 40-135 [facility] ([place]) Comment on above: Performed By: #### C MICA, ANEU, MDW, GFR, MG, CBC, ADIFF #### [address] [address] ALT [Catalytic activity/Vol] 16 U/L Normal 16-63 [facility] ([place]) Comment on above: Performed By: #### C MP, ANEU, MDW, GFR, MG, CBC, ADIFF #### [address] [address] AST [Catalytic activity/Vol] 22 U/L Normal 10-40 [facility] ([place]) Comment on above: Performed By: #### C MP, ANEU, MDW, GFR, MG, CBC, ADIFF #### [address] [address] Bili Total 0.5 mg/dL Normal 0.2-1.0 [facility] ([place]) Comment on above: Result Comment: Use of this assay is not recommended for patients undergoing treatment with eltrombopag due to the potential for falsely elevated results. Performed By: #### C MP, ANEU, MDW, GFR, MG, CBC, ADIFF #### [address] [address] BUN/Creatinine Ratio 21 ratio Normal 7-27 [facility]) Comment on above: Performed By: #### C MP, ANEU, MDW, GFR, MG, CBC, ADIFF #### [address] [address] Calcium [Mass/Vol] 9.4 mg/dL Normal 8.4-10.2 [facility] ([place]) Comment on above: Performed By: #### C MP, ANEU, MDW, GFR, MG, CBC, ADIFF #### [address] [address] Chloride [Moles/Vol] 96 mmol/L Low 98-107 [facility] ([place]) Comment on above: Performed By: #### C MP, ANEU, MDW, GFR, MG, CBC, ADIFF #### [address] [address] CO2 [Moles/Vol] 22 mmol/L Normal 22-29 [facility] ([place]) Comment on above: Performed By: #### C MP, ANEU, MDW, GFR, MG, CBC, ADIFF #### [address] [address] Creatinine [Mass/Vol] 1.92 mg/dL High 0.70-1.30 [facility] [place]) Comment on above: Performed By: #### C MP, ANEU, MDW, GFR, MG, CBC, ADIFF #### [address] [address] Electrolyte Balance 14.0 mEq/L Normal 4.0-15.0 [facility] ([place]) Comment on above: Performed By: #### C MP, ANEU, MDW, GFR, MG, CBC, ADIFF #### [address] [address] Globulin 4.3 G/dL Normal [facility] ([place]) Comment on above: Performed By: #### C MP, ANEU, MDW, GFR, MG, CBC, ADIFF #### [address] [address] Glucose [Mass/Vol] 212 mg/dL High 70-105 [facility] ([place]) Comment on above: Performed By: #### C MP, ANEU, MDW, GFR, MG, CBC, ADIFF #### [address] [address] Potassium [Moles/Vol] 4.1 mmol/L Normal 3.5-5.1 [facility] [place]) Comment on above: Performed By: #### C MP, ANEU, MDW, GFR, MG, CBC, ADIFF #### [address] [address] Sodium [Moles/Vol] 132 mmol/L Low 136-145 [facility] ([place]) Comment on above: Performed By: #### C MP, ANEU, MDW, GFR, MG, CBC, ADIFF #### [address] [address] Total Protein 8.6 G/dL High 6.4-8.2 [facility] ([place]) Comment on above: Performed By: #### C MP, ANEU, MDW, GFR, MG, CBC, ADIFF #### [address] [place], [place] [address] Urea nitrogen [Mass/Vol] 41 mg/dL High 7-18 [facility] ([place]) Comment on above: Performed By: #### C MP, ANEU, MDW, GFR, MG, CBC, ADIFF #### [id number] [place], [place] [address] LABORATORYOrdered By: SYSTEM SYSTEM on 05-05-2024 Albumin [...] 05-05-2024 Lipase Level 36 U/L Normal 16-77 [facility] ([place]) Comment on above: Performed By: #### C RTISTEN NINO MDW, GFR, MG, CBC, ADIFF #### [address] [address] VBGon 05-05-2024 BE Venous -4.6 mmol/L Low -3.0-3.0 [facility] ([place]) Comment on above: Performed By: #### C TRISTEN NINO MDW, GFR, MG, CBC, ADIFF #### [address] [address] CO2 [Moles/Vol] 19.4 mmol/L Low 22.0-32.0 [facility] ([place]) Comment on above: Performed By: #### C TRISTEN NINO MDW, GFR, MG, CBC, ADIFF #### [address] [address] HCO3 (Bld) [Moles/Vol] 18.5 mmol/L Low 21.0-30.0 [facility] ([place]) Comment on above: Performed By: #### C TRISTEN NINO MDW, GFR, MG, CBC, ADIFF #### [facility] [address] [place], [place] [address] Oxygen saturation in Blood 82.0 % High 70.0-75.0 [facility] ([place]) Comment on above: Performed By: #### C MICA, CARITO RAMON, GFR, MG, CBC, ADIFF #### [facility] [address] [place], [place] [address] pCO2 Tera 29.9 mmHg Low 41.0-51.0 [facility] ([place]) Comment on above: Performed By: #### C MICA, CARITO RAMON, GFR, MG, CBC, ADIFF #### [address] [place], [place] [address] pH Venous 7.410 Normal 7.380-7.460 [facility] ([place]) Comment on above: Performed By: #### C TRISTEN NINO MDW, GFR, MG, CBC, ADIFF #### [address] [place], [place] [address] pO2 Tera 45.6 mmHg High 35.0-40.0 [facility] ([place]) Comment on above: Performed By: #### C TRISTEN NINO MDW, GFR, MG, CBC, ADIFF #### [id number] [place], [place] [address] Absolute lymphocyte countOrd ered By: Shantell Alcaraz on 01-29-2024 Lymphocytes Auto (Unsp spec) [#/Vol] 4.10 10*3/uL 0.83-4.51 [facility] Automated lymphocyte count a s percentage of total leukocytesOrdered By: Shantell Alcaraz on 01-29-2024 Lymphocytes/100 WBC Auto (Unsp spec) 41.8 % 19-41 [facility] Basophil percentageOrdered B y: Shantell Alcaraz on 01-29-2024 Basophils/100 WBC (Bld) 0.6 % 0-1 [facility] Chloride [Moles/Vol] 107 mmol/L 98-107 [facility] Eosinophils/100 WBC (Bld) 1.7 % 0-5 [facility] Glucose [Mass/Vol] 124 mg/dL 74-106 [facility] Comment on above: Fasting Glucose resu lt from 100 to 125 mg/dL suggests IMPAIRED HOMEOSTASIS per A.D.A. criteria. Hemoglobin (Bld) [Mass/Vol] 13.0 g/dL 13.0-16.5 [facility] Monocytes/100 WBC (Bld) 11.8 % 0-10 [facility] Neutrophils (Bld) [#/Vol] 4.3 10*3/uL 2.0-7.7 [facility] Neutrophils/100 WBC (Bld) 43.8 % 47-70 [facility] Potassium [Moles/Vol] 3.4 mmol/L 3.5-5.1 [facility] Sodium [Moles/Vol] 136 mmol/L 136-145 [facility] WBC (Bld) [#/Vol] 9.8 10*3/uL 4.4-11.0 [facility] Determination of erythrocyte mean corpuscular volume (MCV)Ordered By: Shantell Alcaraz on 01-29-2024 MCV (RBC) [Entitic vol] 83.7 fL 80-94 [facility] Erythrocyte distribution wid th ratioOrdered By: [facility] Erythrocyte distribution width (RBC) [Ratio] 13.2 % 11.6-14.6 [facility] Erythrocyte distribution wid th standard deviationOrdered By: [facility] on 01-29-2024 Erythrocyte distribution width (RBC) [Entitic vol] 40.7 fL 35.1-43.9 [facility] Hematocrit Auto (Bld) [Volum e fraction]Ordered By: Shantellteresa Alcaraz on 01-29-2024 Hematocrit (Bld) [Volume fraction] 38.5 % 40-54 [facility] Immature granulocytes/100 WB C Auto (Bld)Ordered By: Shantellteresa Alcaraz on 01-29-2024 Immature granulocytes/100 WBC (Bld) 0.300 % 0.0-0.9 [facility] Comment on above: IG% - Immature Granu locytes (promyelocytes, myelocytes and metamyelocytes) > 1% indicates that a LEFT SHIFT is Present. Laboratory - Chemistry and C hemistry - challengeOrdered By: Shantell Alcaraz on 01-29-2024 CO2 [Moles/Vol] 21.0 mmol/L 21.0-32.0 [facility] Urea nitrogen/Creatinine [Mass ratio] 20.2 mg/mg 10-20 [facility] Laboratory - Hematology and Cell countsOrdered By: Shantell Alcaraz on 01-29-2024 MCH (RBC) [Entitic mass] 28.3 pg 27.0-32.0 [facility] MCHC (RBC) [Mass/Vol] 33.8 g/dL 32-36 [facility] Nucleated RBC/100 WBC (Bld) [Ratio] 0 % 0-5 [facility] Platelet mean volume (Bld) [Entitic vol] 9.2 fL 6.2-12.0 [facility] Platelets (Bld) [#/Vol] 341 10*3/uL 150-450 [facility] No Panel InformationOrdered By: Shantell Alcaraz on 01-29-2024 Estimated Creatinine Clearance Calc 120.03 ml/min [facility] Estimated GFR (MDRD) Amer 151 mL/min >60 [facility] Comment on above: GFR Calc Estimated GFR (MDRD) Non-Af Amer 125 mL/min >60 [facility] Comment on above: Non- GFR Calc RBC Auto (Bld) [#/Vol]Ordere d By: Shantell Alcaraz on 01-29-2024 RBC (Bld) [#/Vol] 4.60 10*6/uL 4.6-6.2 [facility] Serum or plasma calcium luis carlos urement (mass/volume)Ordered By: Shantell Alcaraz on 01-29-2024 Calcium [Mass/Vol] 8.5 mg/dL 8.5-10.1 [facility] Serum or plasma creatinine m easurement (mass/volume)Ordered By: Shantell Alcaraz on 01-29-2024 Creatinine [Mass/Vol] 0.74 mg/dL 0.70-1.30 [facility] Comment on above: The validity of the calculated GFR & GFRAA in patients over 70 years has not been determined. Clinical correlation is essential. Serum or plasma urea nitroge n measurement (mass/volume)Ordered By: Shantell Alcaraz on 01-29-2024 Urea nitrogen [Mass/Vol] 15 mg/dL 7-18 [facility] Thin prep Papanicolaou smear with manual screeningOrdered By: Shantell Alcaraz on 01-29-2024 Thin prep Papanicolaou smear with manual screening 151 mg/dL 74-106 [facility] Comment on above: MANAGEMENT OF PATIEN T CARE PER NURSING PROTOCOL Thin prep Papanicolaou smear with manual screening 8 5-15 [facility] Absolute lymphocyte countOrd ered By: Krystina Clifton on 01-27-2024 Lymphocytes Auto (Unsp spec) [#/Vol] 3.36 10*3/uL 0.83-4.51 [facility] Automated lymphocyte count a s percentage of total leukocytesOrdered By: Krystina Clifton on 01-27-2024 Lymphocytes/100 WBC Auto (Unsp spec) 26.1 % 19-41 [facility] Basophil percentageOrdered B y: Krystina Clifton on 01-27-2024 Basophil percentage 0 SEEN /hpf 0-5 [facility] Basophils/100 WBC (Bld) 0.5 % 0-1 [facility] Bilirubin [Mass/Vol] 0.70 mg/dL 0.20-1.00 [facility] Comment on above: For patients on eltr ombopag therapy, use of Dimension Fannin TBIL is not recommended. Chloride [Moles/Vol] 100 mmol/L 98-107 [facility] Eosinophils/100 WBC (Bld) 0.5 % 0-5 [facility] Glucose [Mass/Vol] 322 mg/dL 74-106 [facility] Comment on above: Glucose result great er than or equal to 200 mg/dLsuggests DIABETES MELLITUS per A.D.A. criteria. Hemoglobin (Bld) [Mass/Vol] 14.9 g/dL 13.0-16.5 [facility] Monocytes/100 WBC (Bld) 7.0 % 0-10 [facility] Neutrophils (Bld) [#/Vol] 8.4 10*3/uL 2.0-7.7 [facility] Neutrophils/100 WBC (Bld) 65.5 % 47-70 [facility] Potassium [Moles/Vol] 4.0 mmol/L 3.5-5.1 [facility] Protein [Mass/Vol] 9.2 g/dL 6.4-8.2 [facility] Sodium [Moles/Vol] 132 mmol/L 136-145 [facility] WBC (Bld) [#/Vol] 12.9 10*3/uL 4.4-11.0 [facility] Bilirubin Test strip Ql (U)O rdered By: Krystina Clifton on 01-27-2024 Bilirubin Ql (U) Negative Negative [facility] Determination of erythrocyte mean corpuscular volume (MCV)Ordered By: Krystina Clifton on 01-27-2024 MCV (RBC) [Entitic vol] 84.2 fL 80-94 [facility] Erythrocyte distribution wid th ratioOrdered By: Krystina Clifton on 01-27-2024 Erythrocyte distribution width (RBC) [Ratio] 13.2 % 11.6-14.6 [facility] Erythrocyte distribution wid th standard deviationOrdered By: Krystina Clifton on 01-27-2024 Erythrocyte distribution width (RBC) [Entitic vol] 40.4 fL 35.1-43.9 [facility] Hematocrit Auto (Bld) [Volum e fraction]Ordered By: Krystina Clifton on 01-27-2024 Hematocrit (Bld) [Volume fraction] 44.8 % 40-54 [facility] Immature granulocytes/100 WB C Auto (Bld)Ordered By: Krystina Clifton on 01-27-2024 Immature granulocytes/100 WBC (Bld) 0.400 % 0.0-0.9 [facility] Comment on above: IG% - Immature Granu locytes (promyelocytes, myelocytes and metamyelocytes) > 1% indicates that a LEFT SHIFT is Present. Ketones Test strip Ql (U)Ord ered By: Krystina Clifton on 01-27-2024 Ketones Ql (U) 150 mg/dl Negative [facility] Comment on above: CRITICAL VALUE *HCRI TICAL VALUE VERIFIED. CALLED TO LINA OROZCO01/27/24 Efren Rollins.RESULTS READ BACK BY SAME . Laboratory - Chemistry and C hemistry - challengeOrdered By: Troy Wagoner on 01-27-2024 Sodium (U) [Moles/Vol] 82 mmol/L Not Establ. [facility] Laboratory - Chemistry and C hemistry - challengeOrdered By: Krystina Clifton on 01-27-2024 Albumin/Globulin [Mass ratio] 0.8 {ratio} 0.9-2.4 [facility] ALP [Catalytic activity/Vol] 91 U/L 45-117 [facility] ALT [Catalytic activity/Vol] 15 U/L 16-61 [facility] CO2 [Moles/Vol] 17.0 mmol/L 21.0-32.0 [facility] Globulin (S) [Mass/Vol] 5.0 g/dL 2.2-4.2 [facility] Lipase [Catalytic activity/Vol] 47 U/L 13-75 [facility] Comment on above: Please note:LIPASE r evised reference range effective 23. New Lipase methodology. Expected to produce lower values than the previous assay method. NEW Reference Range: 13 - 75 U/L Urea nitrogen/Creatinine [Mass ratio] 19.1 mg/mg 10-20 [facility] Laboratory - Drug toxicology Ordered By: Troy Wagoner on 01-27-2024 Amphetamines Ql (U) Negative <1000 ng/mL [facility] Benzodiazepines Ql (U) Negative < 200 ng/mL [facility] Cannabinoids Screen Ql (U) Positive < 50 ng/mL [facility] Cocaine Ql (U) Negative < 300 ng/mL [facility] Opiates Ql (U) Positive < 300 ng/mL [facility] Laboratory - Hematology and Cell countsOrdered By: Krystina Clifton on 01-27-2024 MCH (RBC) [Entitic mass] 28.0 pg 27.0-32.0 [facility] MCHC (RBC) [Mass/Vol] 33.3 g/dL 32-36 [facility] Nucleated RBC/100 WBC (Bld) [Ratio] 0 % 0-5 [facility] Platelet mean volume (Bld) [Entitic vol] 9.8 fL 6.2-12.0 [facility] Platelets (Bld) [#/Vol] 375 10*3/uL 150-450 [facility] Mucus LM Ql (Urine sed)Order ed By: Krystina Clifton on 01-27-2024 Mucus Ql (Urine sed) 0 SEEN /hpf [facility] Nitrite Test strip Ql (U)Ord ered By: Krystina Clifton on 01-27-2024 Nitrite Ql (U) Negative Negative [facility] No Panel InformationOrdered By: Troy aron on 01-27-2024 MDMA (Ecstasy) Screen Negative < 500 ng/mL [facility] Urine Barbiturates Screen Negative < 200 ng/mL [facility] Urine Drug Screen Comment [facility] Comment on above: CONFIRMATORY TESTING FOR [...] Urine Methadone Screen Negative < 300 ng/mL [facility] Ethyl Alcohol Level < 3.0 mg/dL [facility] Comment on above: The serum:whole bloo d ethanol ratio is approximately 1.14and varies slightly with hematocrit. Medical Alcohol reference interval and critical value innon-tolerant individuals; 50 - 100 Impairment 100 Intoxication 100 - 250 Severe Poisoning 250 - 400 Deep/possible fatal coma No Panel InformationOrdered By: Krystina Clifton on 01-27-2024 Estimated Creatinine Clearance Calc 76.75 ml/min [facility] Estimated GFR (MDRD) Amer 91 mL/min >60 [facility] Comment on above: GFR Calc Estimated GFR (MDRD) Non-Af Amer 76 mL/min >60 [facility] Comment on above: Non- GFR Calc Urine RBC 5-10 SEEN /hpf 0-5 [facility] Protein Test strip Ql (U)Ord ered By: Krystina Clifton on 01-27-2024 Protein Ql (U) 30 mg/dl Negative [facility] RBC Auto (Bld) [#/Vol]Ordere d By: Krystina Clifton on 01-27-2024 RBC (Bld) [#/Vol] 5.32 10*6/uL 4.6-6.2 [facility] Serum or plasma calcium luis carlos urement (mass/volume)Ordered By: Krystina Clifton on 01-27-2024 Calcium [Mass/Vol] 9.6 mg/dL 8.5-10.1 [facility] Serum or plasma creatinine m easurement (mass/volume)Ordered By: Krystina Clifton on 01-27-2024 Creatinine [Mass/Vol] 1.15 mg/dL 0.70-1.30 [facility] Comment on above: The validity of the calculated GFR & GFRAA in patients over 70 years has not been determined. Clinical correlation is essential. Serum or plasma thyroid stim ulating hormone (TSH) measurement (units/volume)Ordered By: Troy Wagoner on 01-27-2024 TSH Qn 2.59 uIU/mL 0.358-3.74 [facility] Serum or plasma urea nitroge n measurement (mass/volume)Ordered By: Krystina Clifton on 01-27-2024 Urea nitrogen [Mass/Vol] 22 mg/dL 7-18 [facility] Squamous epithelial cells de tection in urine sediment by light microscopyOrdered By: Krystina Clifton on 01-27-2024 Epithelial cells.squamous LM Ql (Urine sed) 0 SEEN /hpf 0-5 [facility] Thin prep Papanicolaou smear with manual screeningOrdered By: Troy Wagoner on 01-27-2024 Protein (U) [Mass/Vol] 46.0 mg/dL 0.0-11.8 [facility] Thin prep Papanicolaou smear with manual screeningOrdered By: Krystina Clifton on 01-27-2024 Thin prep Papanicolaou smear with manual screening 4.2 g/dL 3.2-5.0 [facility] Thin prep Papanicolaou smear with manual screening 17 U/L 15-37 [facility] Thin prep Papanicolaou smear with manual screening 15 5-15 [facility] Urine blood detectionOrdered By: Krystina Clifton on 01-27-2024 RBC Ql (U) 50 /ul Negative [facility] Urine clarityOrdered By: Lito Clifton on 01-27-2024 Clarity (U) Clear Clear [facility] Urine color determinationOrd ered By: Krystina Clifton on 01-27-2024 Color (U) Yellow Yellow [facility] Urine creatinine measurement (mass/volume)Ordered By: Troy Wagoner on 01-27-2024 Creatinine (U) [Mass/Vol] 94.50 mg/dL NO RANGE EST. [facility] Urine glucose detectionOrder ed By: Krystina Clifton on 01-27-2024 Glucose Ql (U) 1000 mg/dl Normal [facility] Urine leukocyte esterase det ection by dipstickOrdered By: Krystina Clifton on 01-27-2024 Leukocyte esterase Test strip Ql (U) Negative Negative [facility] Urine pHOrdered By: Bertha Clifton on 01-27-2024 pH (U) 5.0 [pH] 5.0 - 8.0 [facility] Urine phencyclidine (PCP) de tectionOrdered By: Troy Wagoner on 01-27-2024 Phencyclidine Ql (U) Negative < 25 ng/mL [facility] Urine protein/creatinine mas s ratioOrdered By: Troy Wagoner on 01-27-2024 Protein/Creatinine (U) [Mass ratio] 487 mg/g CRE 0-200 [facility] Urine sediment bacteria coun t by microscopy (number/high power field)Ordered By: Krystina Clifton on 01-27-2024 Bacteria LM.HPF (Urine sed) [#/Area] 0 /[HPF] None Seen [facility] Urine specific gravity measu rementOrdered By: Krystina Clifton on 01-27-2024 Specific gravity (U) [Rel density] 1.025 1.002-1.030 [facility] Urine urobilinogen measureme ntOrdered By: Krystina Clifton on 01-27-2024 Urobilinogen Ql (U) Normal mg/dl Normal [facility] Whole blood hemoglobin A1c/t otal hemoglobin ratio (mass fraction)Ordered By: Troy Wagoner on 01-27-2024 HbA1c (Bld) [Mass fraction] 11.1 % 3.8-5.6 [facility] Comment on above: Normal < 5.7 % Predi abetic 5.7 - 6.4 % Diabetic >or= 6.5 % Please note range changes. .Auto Diffon 01-26-2024 Basophil, Absolute 0.1 10 3/mcL Normal 0.0-0.2 [facility] ([place]) Comment on above: Performed By: #### C MP, ANEU, MDW, GFR, MG, CBC, ADIFF #### [address] [address] Basophils/100 WBC (Bld) 0.7 % Normal 0.0-2.5 [facility] ([place]) Comment on above: Performed By: #### C MP, ANEU, MDW, GFR, MG, CBC, ADIFF #### [address] [address] Eosinophil, Absolute 0.1 10 3/mcL Normal 0.0-0.4 [facility] ([place]) Comment on above: Performed By: #### C MP, ANEU, MDW, GFR, MG, CBC, ADIFF #### [address] [address] Eosinophils/100 WBC (Bld) 0.4 % Normal 0.0-7.0 [facility] ([place]) Comment on above: Performed By: #### C MP, ANEU, MDW, GFR, MG, CBC, ADIFF #### [address] [address] Lymphocyte, Absolute 3.0 10 3/mcL Normal 0.8-3.9 [facility] ([place]) Comment on above: Performed By: #### C MP, ANEU, MDW, GFR, MG, CBC, ADIFF #### [address] [address] Lymphocytes/100 WBC (Bld) 21.5 % Normal 10.0-50.0 [facility] ([place]) Comment on above: Performed By: #### C MP, ANEU, MDW, GFR, MG, CBC, ADIFF #### [address] [address] Monocyte, Absolute 0.9 10 3/mcL Normal 0.2-1.0 [facility] ([place] Comment on above: Performed By: #### C MP, ANEU, MDW, GFR, MG, CBC, ADIFF #### [address] [address] Monocytes/100 WBC (Bld) 6.7 % Normal 1.7-13.0 [facility] ([place]) Comment on above: Performed By: #### C TRISTEN NINO MDW, GFR, MG, CBC, ADIFF #### [address] [address] Neutrophils/100 WBC (Bld) 70.7 % Normal 37.0-80.0 [facility] ([place]) Comment on above: Performed By: #### C TRISTEN NINO MDW, GFR, MG, CBC, ADIFF #### [id number] [place], [place] [address] .GFRon 01-26-2024 GFR Non- 105 ml/min/1.73sqm Normal [facility] ([place]) Comment on above: Result Comment: GFR Population [...] NINO MDW, GFR, MG, CBC, ADIFF #### [address] [place], [place] [address] GFR 127 ml/min/1.73sqm Normal [facility] ([place]) Comment on above: Result Comment: GFR Population [...] NINO MDW, GFR, MG, CBC, ADIFF #### [address] [address] .MDWon 01-26-2024 Monocyte Distribution Width 15.52 Normal 0.00-20.00 [facility] ([place]) Comment on above: Result Comment: For ED adult patients suspected of sepsis, MDW<=20.0 does not rule out sepsis or risk of sepsis Performed By: #### C TRISTEN NINO MDW, GFR, MG, CBC, ADIFF #### [place] [address] .NEUABSon 01-26-2024 Neutrophil, Absolute 9.8 10 3/mcL High 2.9-6.2 [facility] ([place]) Comment on above: Performed By: #### C TRISTEN NINO MDW, GFR, MG, CBC, ADIFF #### [place] [address] .Urinalysis Microscopic (AO) on 01-26-2024 UA RBC 0-5 Abnormal None Seen [facility] ([place]) Comment on above: Performed By: #### U A, UAMICAO #### [place] [address] UA Squam Epithelial 0-5 Abnormal None Seen [facility] ([place] Comment on above: Performed By: #### U A, UAMICAO #### [place] [address] UA WBC 0-5 Abnormal None Seen [facility] ([place]) Comment on above: Performed By: #### U A, UAMICAO #### [place] [address] CBCon 01-26-2024 Erythrocyte distribution width (RBC) [Ratio] 14.2 % Normal 11.5-14.5 [facility] ([place]) Comment on above: Performed By: #### C MP, ANEU, MDW, GFR, MG, CBC, ADIFF #### [address] [address] Hematocrit (Bld) [Volume fraction] 45.5 % Normal 42.0-52.0 [facility] ([place]) Comment on above: Performed By: #### C MP, ANEU, MDW, GFR, MG, CBC, ADIFF #### [place] [address] Hgb 15.5 G/dL Normal 14.0-18.0 [facility] ([place]) Comment on above: Performed By: #### C MP, ANEU, MDW, GFR, MG, CBC, ADIFF #### [place] [address] MCH (RBC) [Entitic mass] 29.0 pg Normal 27.0-31.2 [facility] ([place]) Comment on above: Performed By: #### C MP, ANEU, MDW, GFR, MG, CBC, ADIFF #### [place] [address] MCHC 34.1 G/dL Normal 31.8-35.4 [facility] ([place]) Comment on above: Performed By: #### C MP, ANEU, MDW, GFR, MG, CBC, ADIFF #### [address] [address] MCV (RBC) [Entitic vol] 85.1 fL Normal 80.0-94.0 [facility] ([place]) Comment on above: Performed By: #### C MP, ANEU, MDW, GFR, MG, CBC, ADIFF #### [address] [address] Platelet 384 10 3/mcL Normal 130-400 [facility] ([place]) Comment on above: Performed By: #### C MP, ANEU, MDW, GFR, MG, CBC, ADIFF #### [place] [address] Platelet mean volume (Bld) [Entitic vol] 7.6 fL Normal 7.4-10.4 [facility] ([place]) Comment on above: Performed By: #### C MICA, TRISTEN, MDW, GFR, MG, CBC, ADIFF #### [address] [address] RBC 5.35 10 6/mcL Normal 4.04-6.13 [facility] ([place]) Comment on above: Performed By: #### C MP, ANEU, MDW, GFR, MG, CBC, ADIFF #### [address] [address] WBC 13.9 10 3/mcL High 4.6-10.8 [facility] ([place]) Comment on above: Performed By: #### C MP, ANEU, MDW, GFR, MG, CBC, ADIFF #### [address] [address] CMPon 01-26-2024 Albumin Level 4.5 G/dL Normal 3.5-5.0 [facility] ([place]) Comment on above: Performed By: #### C MICA, ANEU, MDW, GFR, MG, CBC, ADIFF #### [address] [address] Albumin/Globulin [Mass ratio] 0.9 {ratio} Low 1.1-2.5 [facility] ([place]) Comment on above: Performed By: #### C MP, ANEU, MDW, GFR, MG, CBC, ADIFF #### [address] [address] ALP [Catalytic activity/Vol] 104 U/L Normal 40-135 [facility] ([place]) Comment on above: Performed By: #### C MP, ANEU, MDW, GFR, MG, CBC, ADIFF #### [address] [address] ALT [Catalytic activity/Vol] 18 U/L Normal 16-63 [facility] ([place]) Comment on above: Performed By: #### C MP, ANEU, MDW, GFR, MG, CBC, ADIFF #### [address] [address] AST [Catalytic activity/Vol] 35 U/L Normal 10-40 [facility] ([place]) Comment on above: Performed By: #### C TRISTEN NINO MDW, GFR, MG, CBC, ADIFF #### [address] [address] Bili Total 0.7 mg/dL Normal 0.2-1.0 [facility] ([place]) Comment on above: Result Comment: Use of this assay is not recommended for patients undergoing treatment with eltrombopag due to the potential for falsely elevated results. Performed By: #### C MICA, CARITO RAMON, GFR, MG, CBC, ADIFF #### [address] [address] BUN/Creatinine Ratio 24 ratio Normal 7-27 [facility] ([place]) Comment on above: Performed By: #### C TRISTEN NINO MDW, GFR, MG, CBC, ADIFF #### [address] [address] Calcium [Mass/Vol] 9.4 mg/dL Normal 8.4-10.2 [facility] ([place]) Comment on above: Performed By: #### C TRISTEN NINO MDW, GFR, MG, CBC, ADIFF #### [address] [address] Chloride [Moles/Vol] 95 mmol/L Low 98-107 [facility] ([place]) Comment on above: Performed By: #### C TRISTEN NINO MDW, GFR, MG, CBC, ADIFF #### [address] [address] CO2 [Moles/Vol] 18 mmol/L Low 22-29 [facility] ([place]) Comment on above: Performed By: #### C TRISTEN NINO MDW, GFR, MG, CBC, ADIFF #### [address] [address] Creatinine [Mass/Vol] 0.82 mg/dL Normal 0.70-1.30 [facility] Comment on above: Performed By: #### C MP, ANEU, MDW, GFR, MG, CBC, ADIFF #### [address] [address] Electrolyte Balance 19.0 mEq/L High 4.0-15.0 [facility] ([place]) Comment on above: Performed By: #### C MP, ANEU, MDW, GFR, MG, CBC, ADIFF #### [address] [address] Globulin 5.1 G/dL Normal [facility] ([place]) Comment on above: Performed By: #### C MP, ANEU, MDW, GFR, MG, CBC, ADIFF #### [address] [address] Glucose [Mass/Vol] 275 mg/dL High 70-105 [facility] ([place]) Comment on above: Performed By: #### C MP, ANEU, MDW, GFR, MG, CBC, ADIFF #### [address] [address] Potassium [Moles/Vol] 5.3 mmol/L High 3.5-5.1 [facility] [place] Comment on above: Performed By: #### C MP, ANEU, MDW, GFR, MG, CBC, ADIFF #### [address] [address] Sodium [Moles/Vol] 132 mmol/L Low 136-145 [facility] ([place]) Comment on above: Performed By: #### C MP, ANEU, MDW, GFR, MG, CBC, ADIFF #### [address] [address] Total Protein 9.6 G/dL High 6.4-8.2 [facility] ([place]) Comment on above: Performed By: #### C MP, ANEU, MDW, GFR, MG, CBC, ADIFF #### [address] [address] Urea nitrogen [Mass/Vol] 20 mg/dL High 7-18 [facility] ([place]) Comment on above: Performed By: #### C MP, ANEU, MDW, GFR, MG, CBC, ADIFF #### [place] [address] [place], [place] [address] CT ABD/PELVIS W/ IV CONTRAST ONLYon 01-26-2024 [...] 1:11:46 PM Ordering Provider: SARAVANAN SANCHEZ Normal [facility] ([place]) LABORATORYOrdered By: Elyse Durand on 01-26-2024 Glucose [Mass/Vol] 224 mg/dL High 70 - 110 mg/dL [facility] Work Phone: Glucose [Mass/Vol] 275 mg/dL High 70 - 110 mg/dL [facility] Work Phone: LABORATORYOrdered By: SYSTEM SYSTEM on [...] 01-26-2024 Lipase Level 48 U/L Normal 16-77 [facility] ([place]) Comment on above: Performed By: #### C TRISTEN NINO MDW, GFR, MG, CBC, ADIFF #### [address] [address] MGon 01-26-2024 Magnesium [Mass/Vol] 1.8 mg/dL Normal 1.8-2.4 [facility] ([place]) Comment on above: Performed By: #### C TRISTEN NINO MDW, GFR, MG, CBC, ADIFF #### [address] [address] UAon 01-26-2024 Color (U) Yellow Normal [facility] ([place]) Comment on above: Performed By: #### U A, UAMICAO #### [address] [address] Glucose (U) [Mass/Vol] 500 mg/dL Abnormal Negative [facility] ([place]) Comment on above: Performed By: #### U A, UAMICAO #### [address] [address] Ketones Ql (U) >=160 Abnormal Negative [facility] ([place]) Comment on above: Performed By: #### U A, UAMICAO #### [address] [address] UA Appear Clear Normal Clear [facility] ([place]) Comment on above: Performed By: #### U A, UAMICAO #### [address] [address] UA Blood Moderate Abnormal Negative [facility] ([place]) Comment on above: Performed By: #### U A, UAMICAO #### [place] [address] UA Leuk Est Negative Normal Negative [facility] ([place]) Comment on above: Performed By: #### U A, UAMICAO #### [address] [address] UA Nitrite Negative Normal Negative [facility] ([place]) Comment on above: Performed By: #### U A, UAMICAO #### [place] [address] UA pH 5.5 Normal 5.0 - 8.0 [facility] ([place]) Comment on above: Performed By: #### U A, UAMICAO #### [address] [address] UA Protein 100 mg/dL Abnormal Negative [facility] ([place]) Comment on above: Performed By: #### U A, UAMICAO #### [address] [address] UA Spec Grav >=1.030 Abnormal 1.015-1.025 [facility] ([place]) Comment on above: Performed By: #### U A, UAMICAO #### [place] [address] [place], [place] [address] UA Specimen Type Clean Catch Normal [facility] ([place]) Comment on above: Performed By: #### U A, UAMICAO #### [place] [address] [place], [place] [address] UA Urobilinogen 0.2 E.U./dL Normal 0.2-1.0 [facility] ([place]) Comment on above: Performed By: #### U A, UAMICAO #### [place] [address] [place], [place] [address] Urobilinogen (U) [Mass/Vol] Negative Normal Negative [facility] ([place]) Comment on above: Performed By: #### U A, UAMICAO #### [address] [address] Absolute lymphocyte countOrd ered By: ED PROVIDER on 01-25-2024 Lymphocytes Auto (Unsp spec) [#/Vol] 2.82 10*3/uL 0.83-4.51 [facility] Automated lymphocyte count a s percentage of total leukocytesOrdered By: ED PROVIDER on 01-25-2024 Lymphocytes/100 WBC Auto (Unsp spec) 21.7 % 19-41 [facility] Basophil percentageOrdered B y: Ryan Mccracken on 01-25-2024 Basophil percentage 0 SEEN /hpf 0-5 [facility] Bilirubin [Mass/Vol] 0.50 mg/dL 0.20-1.00 [facility] Comment on above: For patients on eltr ombopag therapy, use of Dimension Fannin TBIL is not recommended. Chloride [Moles/Vol] 101 mmol/L 98-107 [facility] Glucose [Mass/Vol] 278 mg/dL 74-106 [facility] Comment on above: Glucose result great er than or equal to 200 mg/dLsuggests DIABETES MELLITUS per A.D.A. criteria. Potassium [Moles/Vol] 3.8 mmol/L 3.5-5.1 [facility] Comment on above: Moderate Hemolysis, Result may be falsely increased. Protein [Mass/Vol] 9.2 g/dL 6.4-8.2 [facility] Sodium [Moles/Vol] 136 mmol/L 136-145 [facility] Basophil percentageOrdered B y: ED PROVIDER on 01-25-2024 Basophils/100 WBC (Bld) 0.5 % 0-1 [facility] Eosinophils/100 WBC (Bld) 0.4 % 0-5 [facility] Hemoglobin (Bld) [Mass/Vol] 15.0 g/dL 13.0-16.5 [facility] Monocytes/100 WBC (Bld) 5.3 % 0-10 [facility] Neutrophils (Bld) [#/Vol] 9.3 10*3/uL 2.0-7.7 [facility] Neutrophils/100 WBC (Bld) 71.6 % 47-70 [facility] WBC (Bld) [#/Vol] 13.0 10*3/uL 4.4-11.0 [facility] Bilirubin Test strip Ql (U)O rdered By: Ryan Mccracken on 01-25-2024 Bilirubin Ql (U) Negative Negative [facility] Determination of erythrocyte mean corpuscular volume (MCV)Ordered By: ED PROVIDER on 01-25-2024 MCV (RBC) [Entitic vol] 84.8 fL 80-94 [facility] Direct bilirubinOrdered By: Ryansonia Mccracken on 01-25-2024 Bilirubin.direct [Mass/Vol] 0.06 mg/dL 0.00-0.30 [facility] Erythrocyte distribution wid th ratioOrdered By: ED PROVIDER on 01-25-2024 Erythrocyte distribution width (RBC) [Ratio] 12.9 % 11.6-14.6 [facility] Erythrocyte distribution wid th standard deviationOrdered By: ED PROVIDER on 01-25-2024 Erythrocyte distribution width (RBC) [Entitic vol] 39.9 fL 35.1-43.9 [facility] Hematocrit Auto (Bld) [Volum e fraction]Ordered By: ED PROVIDER on 01-25-2024 Hematocrit (Bld) [Volume fraction] 44.7 % 40-54 [facility] Immature granulocytes/100 WB C Auto (Bld)Ordered By: ED PROVIDER on 01-25-2024 Immature granulocytes/100 WBC (Bld) 0.500 % 0.0-0.9 [facility] Comment on above: IG% - Immature Granu locytes (promyelocytes, myelocytes and metamyelocytes) > 1% indicates that a LEFT SHIFT is Present. Ketones Test strip Ql (U)Ord ered By: Ryan Mccracken on 01-25-2024 Ketones Ql (U) 150 mg/dl Negative [facility] Comment on above: CRITICAL VALUE *HCRI TICAL VALUE VERIFIED. CALLED TO ETEAL01/25/24 2210 Liv Morel.RESULTS READ BACK BY SAME . Laboratory - Chemistry and C hemistry - challengeOrdered By: Ryan Mccracken on 01-25-2024 Albumin/Globulin [Mass ratio] 0.8 {ratio} 0.9-2.4 [facility] ALP [Catalytic activity/Vol] 92 U/L 45-117 [facility] ALT [Catalytic activity/Vol] 18 U/L 16-61 [facility] CO2 [Moles/Vol] 21.0 mmol/L 21.0-32.0 [facility] Globulin (S) [Mass/Vol] 5.0 g/dL 2.2-4.2 [facility] Lipase [Catalytic activity/Vol] 37 U/L 13-75 [facility] Comment on above: Please note:LIPASE r evised reference range effective 23. New Lipase methodology. Expected to produce lower values than the previous assay method. NEW Reference Range: 13 - 75 U/L Urea nitrogen/Creatinine [Mass ratio] 18.1 mg/mg 10-20 [facility] Laboratory - Hematology and Cell countsOrdered By: ED PROVIDER on 01-25-2024 MCH (RBC) [Entitic mass] 28.5 pg 27.0-32.0 [facility] MCHC (RBC) [Mass/Vol] 33.6 g/dL 32-36 [facility] Nucleated RBC/100 WBC (Bld) [Ratio] 0 % 0-5 [facility] Platelet mean volume (Bld) [Entitic vol] 9.7 fL 6.2-12.0 [facility] Platelets (Bld) [#/Vol] 365 10*3/uL 150-450 [facility] Mucus LM Ql (Urine sed)Order ed By: Ryan Mccracken on 01-25-2024 Mucus Ql (Urine sed) 0 SEEN /hpf [facility] Nitrite Test strip Ql (U)Ord ered By: Ryan Mccracken on 01-25-2024 Nitrite Ql (U) Negative Negative [facility] No Panel InformationOrdered By: Ryan Mccracken on 01-25-2024 Urine RBC 0-5 SEEN /hpf 0-5 [facility] Estimated Creatinine Clearance Calc 85.54 ml/min [facility] Estimated GFR (MDRD) Amer 102 mL/min >60 [facility] Comment on above: GFR Calc Estimated GFR (MDRD) Non-Af Amer 84 mL/min >60 [facility] Comment on above: Non- GFR Calc Protein Test strip Ql (U)Ord ered By: Ryan Mccracken on 01-25-2024 Protein Ql (U) 30 mg/dl Negative [facility] RBC Auto (Bld) [#/Vol]Ordere d By: ED PROVIDER on 01-25-2024 RBC (Bld) [#/Vol] 5.27 10*6/uL 4.6-6.2 [facility] Serum or plasma calcium luis carlos urement (mass/volume)Ordered By: Ryan Mccracken on 01-25-2024 Calcium [Mass/Vol] 9.6 mg/dL 8.5-10.1 [facility] Serum or plasma creatinine m easurement (mass/volume)Ordered By: Ryan Mccracken on 01-25-2024 Creatinine [Mass/Vol] 1.05 mg/dL 0.70-1.30 [facility] Comment on above: The validity of the calculated GFR & GFRAA in patients over 70 years has not been determined. Clinical correlation is essential. Serum or plasma urea nitroge n measurement (mass/volume)Ordered By: Ryan Mccracken on 01-25-2024 Urea nitrogen [Mass/Vol] 19 mg/dL 7-18 [facility] Squamous epithelial cells de tection in urine sediment by light microscopyOrdered By: Ryan Mccracken on 01-25-2024 Epithelial cells.squamous LM Ql (Urine sed) 0 SEEN /hpf 0-5 [facility] Thin prep Papanicolaou smear with manual screeningOrdered By: Ryan Mccracken on 01-25-2024 Thin prep Papanicolaou smear with manual screening 4.2 g/dL 3.2-5.0 [facility] Thin prep Papanicolaou smear with manual screening 31 U/L 15-37 [facility] Comment on above: Moderate Hemolysis, Result may be falsely increased. Thin prep Papanicolaou smear with manual screening 14 5-15 [facility] Urine blood detectionOrdered By: Ryan Mccracken on 01-25-2024 RBC Ql (U) 25 /ul Negative [facility] Urine clarityOrdered By: Ryan Mccracken on 01-25-2024 Clarity (U) Clear Clear [facility] Urine color determinationOrd ered By: Ryan Mccracken on 01-25-2024 Color (U) Yellow Yellow [facility] Urine glucose detectionOrder ed By: Ryan Mccracken on 01-25-2024 Glucose Ql (U) 1000 mg/dl Normal [facility] Urine leukocyte esterase det ection by dipstickOrdered By: Ryan Mccracken on 01-25-2024 Leukocyte esterase Test strip Ql (U) Negative Negative [facility] Urine pHOrdered By: Ryan scott on 01-25-2024 pH (U) 7.0 [pH] 5.0 - 8.0 [facility] Urine sediment bacteria coun t by microscopy (number/high power field)Ordered By: Ryan Mccracken on 01-25-2024 Bacteria LM.HPF (Urine sed) [#/Area] 0 /[HPF] None Seen [facility] Urine specific gravity measu rementOrdered By: Ryan Mccracken on 01-25-2024 Specific gravity (U) [Rel density] 1.010 1.002-1.030 [facility] Urine urobilinogen measureme ntOrdered By: Ryan Mccracken on 01-25-2024 Urobilinogen Ql (U) Normal mg/dl Normal [facility] XR CHEST 2V FRONTAL/LATon [facility] XR Chest PA and Lateralon IMPRESSION: No acute radiographic abnormality. Drawing Machine Operator: TREY Transcribe Date/Time: Oct 15 2023 12:50P Dictated by : HYACINTH HAQUE MD This examination was interpreted and the report reviewed and electronically signed by: HYACNITH HAQUE MD on Oct 15 2023 12:51PM EST DIVISION OF RADIOLOGY * * *Final Report* [...] tissues: Unremarkable. DIVISION OF RADIOLOGY Provider, Coy Ramirez [facility] - 10/15/2023 * * *Final Report* * [...] Unremarkable. IMPRESSION IMPRESSION: No acute radiographic abnormality. Drawing Machine Operator: PSCB Transcribe Date/Time: Oct 15 2023 12:50P Dictated by : HYACINTH HAQUE MD This examination was interpreted and the report reviewed and electronically signed by: HYACINTH HAQUE MD on Oct 15 2023 12:51PM EST [facility] Radiology Study observation (narrative) [facility] XR Chest PA and LateralOrder ed By: [facility] Provider on 10-15-2023 [facility] Vital Signs Date Time Vital Sign Value Performing Clinician Facility 06-13-2025 19:40-0400 Body temperature 98 [degF] Austin Camarena [employer] Work Phone: [facility] 06-13-2025 19:40-0400 Diastolic blood pressure 89 mm[Hg] Austin Camarena [employer] Work Phone: 7(330)676-314418 [place] [address] 06-13-2025 19:40-0400 Heart rate 99 /min Austin Camarena [employer] Work Phone: 3(933)216-413118 [place] [address] 06-13-2025 19:40-0400 Respiratory rate 18 /min Austin Camarena [employer] Work Phone: 1(862)670-089118 [place] [address] 06-13-2025 19:40-0400 SaO2% (BldA) [Mass fraction] 100 % Austin Camarena [employer] Work Phone: 0(183)744-517318 [place] [address] 06-13-2025 19:40-0400 Systolic blood pressure 162 mm[Hg] Austin Camarena [employer] Work Phone: 8(683)958-834418 [place] [address] 06-13-2025 16:25-0400 Body height 167.64 cm Austin Camarena [employer] Work Phone: 3(254)244-072318 [place] [address] 06-13-2025 16:25-0400 Body mass index (BMI) [Ratio] 26.7 kg/m2 Austin Camarena [employer] Work Phone: 9(408)990-342818 [place] [address] 06-13-2025 16:25-0400 Body weight 75.2 kg Austin Camarena [employer] Work Phone: 9(478)475-851618 [place] [address] 06-13-2025 01:53-0400 Diastolic blood pressure 76 mm[Hg] Austin Camarena [employer] Work Phone: 1(299)411-019518 [place] [address] 06-13-2025 01:53-0400 SaO2% (BldA) [Mass fraction] 100 % Austin Camarena [employer] Work Phone: 4(588)382-605718 [place] [address] 06-13-2025 01:53-0400 Systolic blood pressure 109 mm[Hg] Austin Camarena [employer] Work Phone: 9(148)556-134818 [place] [address] 06-13-2025 01:00-0400 Body temperature 97.9 [degF] Austin Camarena [employer] Work Phone: 1(711)502-042718 [place] [address] 06-13-2025 01:00-0400 Heart rate 99 /min Austin Camarena [employer] Work Phone: 8(217)976-608218 [place] [address] 06-13-2025 01:00-0400 Respiratory rate 18 /min Austin Camarena [employer] Work Phone: 7(919)491-46[address] [place] [address] 06-12-2025 20:18-0400 Body height 167.64 cm Austin Camarena [employer] Work Phone: 7(855)062-184818 [place] [address] 06-12-2025 20:18-0400 Body mass index (BMI) [Ratio] 26.6 kg/m2 Austin Camarena [employer] Work Phone: 0(218)011-966618 [place] [address] 06-12-2025 20:18-0400 Body weight 74.84 kg Austin Camarena [employer] Work Phone: 9(539)239-611818 [place] [address] 06-08-2025 10:47-0400 Body height 167.64 cm Austin Camarena [employer] Work Phone: 3(839)880-752418 [place] [address] 06-08-2025 10:47-0400 Body mass index (BMI) [Ratio] 27.6 kg/m2 Austin Camarena [employer] Work Phone: 9(591)524-990118 [place] [address] 06-08-2025 10:47-0400 Body weight 77.73 kg Austin Camarena [employer] Work Phone: 4(230)741-088218 [place] [address] 06-08-2025 10:47-0400 Diastolic blood pressure 78 mm[Hg] Austin Camarena [employer] Work Phone: 1(378)509-914218 [place] [address] 06-08-2025 10:47-0400 Heart rate 99 /min Austin Camarena [employer] Work Phone: 6(826)963-408018 [place] [address] 06-08-2025 10:47-0400 SaO2% (BldA) [Mass fraction] 97 % Austin Camarena [employer] Work Phone: 8(014)979-906318 [place] [address] 06-08-2025 10:47-0400 Systolic blood pressure 114 mm[Hg] Austin Camarena [employer] Work Phone: 2(104)361-209767 [place] [address] 05-03-2025 08:45-0400 Body height 167.64 cm Austin Camarena [employer] Work Phone: 2(960)350-158018 [place] [address] 05-03-2025 08:45-0400 Body mass index (BMI) [Ratio] 26.4 kg/m2 Austin Camarena [employer] Work Phone: 8(861)436-698318 [place] [address] 05-03-2025 08:45-0400 Body weight 74.44 kg Austin Camarena [employer] Work Phone: 1(173)961-824518 [place] [address] 05-03-2025 08:45-0400 Diastolic blood pressure 76 mm[Hg] Austin Camarena [employer] Work Phone: 1(028)048-361218 [place] [address] 05-03-2025 08:45-0400 Heart rate 93 /min Austin Camarena [employer] Work Phone: 9(685)846-016618 [place] [address] 05-03-2025 08:45-0400 SaO2% (BldA) [Mass fraction] 98 % Austin Camarena [employer] Work Phone: 0(652)758-193918 [place] [address] 05-03-2025 08:45-0400 Systolic blood pressure 130 mm[Hg] Austin Camarena [employer] Work Phone: 9(253)153-037918 [place] [address] 04-30-2025 14:31-0400 Body weight 72 kg Austin Camarena RN ASSESSMENT.CAD ADMINISTRATOR Work Phone: 3(371)677-593196 [place] [address] 04-30-2025 14:31-0400 Diastolic blood pressure 79 mm[Hg] Austin Camarena RN ASSESSMENT.CAD ADMINISTRATOR Work Phone: 7(379)348-801596 [place] [address] 04-30-2025 14:31-0400 Heart rate 109 /min Austin Camarena RN ASSESSMENT.CAD ADMINISTRATOR Work Phone: 5(148)988-001196 [place] [address] 04-30-2025 14:31-0400 Systolic blood pressure 115 mm[Hg] Austin Camarena RN ASSESSMENT.CAD ADMINISTRATOR Work Phone: 7(434)021-399696 [place] [address] 04-19-2025 13:13-0400 Body height 167.64 cm Austin Camarena [employer] Work Phone: 8(153)984-622218 [place] [address] 04-19-2025 13:13-0400 Body mass index (BMI) [Ratio] 25.8 kg/m2 Austin Camarena [employer] Work Phone: 5(565)376-730918 [place] [address] 04-19-2025 13:13-0400 Body weight 72.57 kg Austin Camarena [employer] Work Phone: 9(652)038-937018 [place] [address] 04-19-2025 13:13-0400 Diastolic blood pressure 75 mm[Hg] Austin Camarena [employer] Work Phone: 7(647)820-571618 [place] [address] 04-19-2025 13:13-0400 Heart rate 105 /min Austin Camarena [employer] Work Phone: 1(026)465-953918 [place] [address] 04-19-2025 13:13-0400 SaO2% (BldA) [Mass fraction] 97 % Austin Camarena [employer] Work Phone: 8(592)292-038418 [place] [address] 04-19-2025 13:13-0400 Systolic blood pressure 115 mm[Hg] Austin Camarena [employer] Work Phone: 8(958)148-537818 [place] [address] 02-06-2025 17:10-0400 Body height 167.64 cm Austin Camarena [employer] Work Phone: 9(565)134-497618 [place] [address] 02-06-2025 17:10-0400 Body mass index (BMI) [Ratio] 28.1 kg/m2 Austin Camarena [employer] Work Phone: 2(256)131-316218 [place] [address] 02-06-2025 17:10-0400 Body temperature 98.3 [degF] Austin Camarena [employer] Work Phone: 3(758)962-838518 [place] [address] 02-06-2025 17:10-0400 Body weight 79.15 kg Austin Camarena [employer] Work Phone: 8(522)801-424018 [place] [address] 02-06-2025 17:10-0400 Diastolic blood pressure 99 mm[Hg] Austin Camarena [employer] Work Phone: 3(152)477-559718 [place] [address] 02-06-2025 17:10-0400 Heart rate 94 /min Austin Camarena [employer] IN[employer]ER[employer]C Work Phone: [facility] 02-06-2025 17:10-0400 Respiratory rate 16 /min Austin Camarena WE[employer] IN[employer]ER[employer]C Work Phone: [facility] 02-06-2025 17:10-0400 SaO2% (BldA) [Mass fraction] 100 % Austin Camarena [employer] IN[employer]ER[employer]C Work Phone: [facility] 02-06-2025 17:10-0400 Systolic blood pressure 167 mm[Hg] Austin Camarena [employer] IN[employer]ER[employer]C Work Phone: [facility] 01-25-2025 15:43-0400 Body weight 75.9 kg Austin Camarena RN ASSESSMENT.CAD ADMINISTRATOR Work Phone: [facility] 01-25-2025 15:43-0400 Diastolic blood pressure 78 mm[Hg] Austin Camarena RN ASSESSMENT.CAD ADMINISTRATOR Work Phone: [facility] 01-25-2025 15:43-0400 Heart rate 108 /min Austin Camarena RN ASSESSMENT.CAD ADMINISTRATOR Work Phone: [facility] [facility] 01-25-2025 15:43-0400 Respiratory rate 12 /min Austin Camarena RN ASSESSMENT.CAD ADMINISTRATOR Work Phone: [facility] 01-25-2025 15:43-0400 Systolic blood pressure 124 mm[Hg] Austin Camarena RN ASSESSMENT.CAD ADMINISTRATOR Work Phone: [facility] 01-18-2025 13:03-0400 Body mass index (BMI) [Ratio] 26.9 kg/m2 Austin Camarena WEATHER STRIP INSTALLER-C Work Phone: [facility] 01-18-2025 13:03-0400 Body weight 75.52 kg Austin Camarena WEATHER STRIP INSTALLER-C Work Phone: [facility] 01-18-2025 13:03-0400 Diastolic blood pressure 68 mm[Hg] Austin Camarena WEATHER STRIP INSTALLER-C Work Phone: [facility] 01-18-2025 13:03-0400 Heart rate 112 /min Austin Camarena WEATHER STRIP INSTALLER-C Work Phone: [facility] 01-18-2025 13:03-0400 SaO2% (BldA) [Mass fraction] 96 % Austin Camarena WEATHER STRIP INSTALLER-C Work Phone: [facility] 01-18-2025 13:03-0400 Systolic blood pressure 106 mm[Hg] Austin Camarena WEATHER STRIP INSTALLER-C Work Phone: [facility] 12-28-2024 10:23-0500 Diastolic blood pressure 84 mm[Hg] Austin Camarena RN ASSESSMENT.CAD ADMINISTRATOR Work Phone: [facility] 12-28-2024 10:23-0500 Systolic blood pressure 128 mm[Hg] Austin Camarena RN ASSESSMENT.CAD ADMINISTRATOR Work Phone: [facility] 12-28-2024 10:08-0500 Body weight 69.4 kg Austin Camarena APRN.CAD ADMINISTRATOR Work Phone: [facility] 12-28-2024 10:08-0500 Heart rate 94 /min Austin Camarena RN ASSESSMENT.CAD ADMINISTRATOR Work Phone: [facility] 12-11-2024 09:19-0500 Diastolic blood pressure 88 mm[Hg] Austin Camarena RN ASSESSMENT.CAD ADMINISTRATOR Work Phone: [facility] 12-11-2024 09:19-0500 Systolic blood pressure 124 mm[Hg] Austin Camarena RN ASSESSMENT.CAD ADMINISTRATOR Work Phone: [facility] 12-11-2024 09:06-0500 Body weight 70.76 kg Austin Camarena APRN.CAD ADMINISTRATOR Work Phone: [facility] 12-11-2024 09:06-0500 Heart rate 89 /min Austin Camarena APRN.CAD ADMINISTRATOR Work Phone: [facility] 12-11-2024 09:06-0500 Respiratory rate 14 /min Austin Camarena APRN.CAD ADMINISTRATOR Work Phone: [facility] 11-27-2024 15:45-0500 Diastolic blood pressure 85 mm[Hg] Austin Camarena RN ASSESSMENT.CAD ADMINISTRATOR Work Phone: [facility] 11-27-2024 15:45-0500 Systolic blood pressure 135 mm[Hg] Austin Camarena RN ASSESSMENT.CAD ADMINISTRATOR Work Phone: [facility] 11-27-2024 15:29-0500 Body weight 70.76 kg Austin Camarena RN ASSESSMENT.CAD ADMINISTRATOR Work Phone: [facility] 11-27-2024 15:29-0500 Heart rate 92 /min Austin Camarena RN ASSESSMENT.CAD ADMINISTRATOR Work Phone: [facility] 11-27-2024 15:29-0500 Respiratory rate 14 /min Austin Camarena RN ASSESSMENT.CAD ADMINISTRATOR Work Phone: [facility] 11-22-2024 11:44-0500 Body mass index (BMI) [Ratio] 25 kg/m2 Austin Camarena WEATHER STRIP INSTALLER-C Work Phone: [facility] 11-22-2024 11:44-0500 Body weight 70.3 kg Austin Camarena WEATHER STRIP INSTALLER-C Work Phone: [facility] 11-22-2024 11:44-0500 Diastolic blood pressure 80 mm[Hg] Austin Camarena WEATHER STRIP INSTALLER-C Work Phone: [facility] 11-22-2024 11:44-0500 Heart rate 100 /min Austin Camarena WEATHER STRIP INSTALLER-C Work Phone: [facility] 11-22-2024 11:44-0500 SaO2% (BldA) [Mass fraction] 97 % Austin Camarena WEATHER STRIP INSTALLER-C Work Phone: [facility] 11-22-2024 11:44-0500 Systolic blood pressure 124 mm[Hg] Austin Camarena WEATHER STRIP INSTALLER-C Work Phone: [facility] 10-28-2024 17:40-0500 Body temperature 98 [degF] Austin Camarena WEATHER STRIP INSTALLER-C Work Phone: [facility] 10-28-2024 17:40-0500 Diastolic blood pressure 101 mm[Hg] Austin Camarena WEATHER STRIP INSTALLER-C Work Phone: [facility] 10-28-2024 17:40-0500 Heart rate 102 /min Austin Camarena WEATHER STRIP INSTALLER-C Work Phone: [facility] 10-28-2024 17:40-0500 Respiratory rate 18 /min Austin Camarena WEATHER STRIP INSTALLER-C Work Phone: [facility] 10-28-2024 17:40-0500 SaO2% (BldA) [Mass fraction] 100 % Austin Camarena WEATHER STRIP INSTALLER-C Work Phone: [facility] 10-28-2024 17:40-0500 Systolic blood pressure 140 mm[Hg] Austin Camarena WEATHER STRIP INSTALLER-C Work Phone: [phone] [place] [address] 10-28-2024 13:41-0500 Body mass index (BMI) [Ratio] 23.8 kg/m2 Austin Camarena WEATHER STRIP INSTALLER-C Work Phone: [facility] 10-28-2024 13:41-0500 Body weight 67.1 kg Austin Camarena WEATHER STRIP INSTALLER-C Work Phone: [facility] 08-07-2024 08:59-0400 Body weight 71.22 kg Austin Camarena APRN.CAD ADMINISTRATOR Work Phone: [facility] 08-07-2024 08:59-0400 Diastolic blood pressure 85 mm[Hg] Austin Camarena APRN.CAD ADMINISTRATOR Work Phone: [facility] 08-07-2024 08:59-0400 Heart rate 97 /min Austin Camarena RN ASSESSMENT.CAD ADMINISTRATOR Work Phone: [facility] 08-07-2024 08:59-0400 Respiratory rate 14 /min Austin Camarena APRN.CAD ADMINISTRATOR Work Phone: [facility] 08-07-2024 08:59-0400 Systolic blood pressure 132 mm[Hg] Austin Camarena APRN.CAD ADMINISTRATOR Work Phone: [facility] 05-16-2024 13:23-0400 Body weight 66.22 kg Austin Camarena APRN.CAD ADMINISTRATOR Work Phone: [facility] 05-16-2024 13:23-0400 Diastolic blood pressure 64 mm[Hg] Austin Camarena RN ASSESSMENT.CAD ADMINISTRATOR Work Phone: [facility] 05-16-2024 13:23-0400 Heart rate 103 /min Austin Camarena RN ASSESSMENT.CAD ADMINISTRATOR Work Phone: [facility] 05-16-2024 13:23-0400 Respiratory rate 14 /min Austin Camarena RN ASSESSMENT.CAD ADMINISTRATOR Work Phone: [facility] 05-16-2024 13:23-0400 Systolic blood pressure 101 mm[Hg] Austin Camarena RN ASSESSMENT.CAD ADMINISTRATOR Work Phone: [facility] 05-05-2024 15:54-0400 Diastolic Blood Pressure Non-Invasive 72 mm[Hg] JESSICA FROMMELT DO [facility] 05-05-2024 15:54-0400 Heart rate 98 /min JESSICA FROMMELT DO [facility] 05-05-2024 15:54-0400 Respiratory rate 20 /min JESSICA FROMMELT DO [facility] 05-05-2024 15:54-0400 Systolic Blood Pressure Non-Invasive 127 mm[Hg] JESSICA FROMMELT DO [facility] 05-05-2024 14:27-0400 Diastolic Blood Pressure Non-Invasive 71 mm[Hg] JESSICA FROMMELT DO [facility] 05-05-2024 14:27-0400 Heart rate 107 /min JESSICA FROMMELT DO [facility] 05-05-2024 14:27-0400 Respiratory rate 16 /min JESSICA FROMMELT DO [facility] 05-05-2024 14:27-0400 Systolic Blood Pressure Non-Invasive 140 mm[Hg] JESSICA FROMMELT DO [facility] 05-05-2024 14:22-0400 SaO2% (BldA) [Mass fraction] 82.0 % JESSICA GRACET DO [facility] 05-05-2024 13:37-0400 Body temperature 97.7 [degF] JESSICA GRACET DO [facility] 05-05-2024 13:37-0400 Body weight 65.3 kg JESSICA KILLIAN DO [facility] 05-05-2024 13:37-0400 Diastolic Blood Pressure Non-Invasive 68 mm[Hg] JESSICA GRACET DO [facility] 05-05-2024 13:37-0400 Heart rate 113 /min JESSICA KILLIAN DO [facility] 05-05-2024 13:37-0400 Respiratory rate 20 /min JESSICA KILLIAN DO [facility] 05-05-2024 13:37-0400 Systolic Blood Pressure Non-Invasive 97 mm[Hg] JESSICA KILLIAN DO [facility] 01-29-2024 14:22-0400 Body height 167.64 cm WEATHER STRIP INSTALLER-C Austin Camarena Work Phone: [facility] 01-29-2024 14:22-0400 Body weight 62.7 kg WEATHER STRIP INSTALLER-C Austin Camarena Work Phone: [facility] 01-29-2024 09:41-0400 Diastolic blood pressure 91 mm[Hg] WEATHER STRIP INSTALLEROskar Camarena Work Phone: [facility] 01-29-2024 09:41-0400 Systolic blood pressure 158 mm[Hg] WEATHER STRIP INSTALLER-Joanna Camarena Work Phone: [facility] 01-29-2024 08:00-0400 Body temperature 97.5 [degF] WEATHER STRIP INSTALLER-C Austin Camarena Work Phone: [facility] 01-29-2024 08:00-0400 Heart rate 94 /min WEATHER STRIP INSTALLER-C Austin Camarena Work Phone: [facility] 01-29-2024 08:00-0400 Respiratory rate 14 /min WEATHER STRIP INSTALLER-C Austin Camarena Work Phone: [facility] 01-29-2024 08:00-0400 SaO2% (BldA) [Mass fraction] 100 % WEATHER STRIP INSTALLER-C Austin Camarena Work Phone: [facility] 01-27-2024 16:50-0400 Body temperature 98.3 [degF] [facility] 01-27-2024 16:50-0400 Diastolic blood pressure 87 mm[Hg] [facility] 01-27-2024 16:50-0400 Heart rate 89 /min [facility] 01-27-2024 16:50-0400 Respiratory rate 20 /min [facility] 01-27-2024 16:50-0400 SaO2% (BldA) [Mass fraction] 99 % [facility] 01-27-2024 16:50-0400 Systolic blood pressure 139 mm[Hg] [facility] 01-27-2024 16:25-0400 Body height 167.64 cm [facility] 01-27-2024 16:25-0400 Body mass index (BMI) [Ratio] 22.3 kg/m2 [facility] 01-27-2024 16:25-0400 Body weight 62.7 kg [facility] 01-27-2024 11:07-0400 Body weight 63.8 kg Austin Camarena APRN.TESS Work Phone: [facility] 01-27-2024 11:07-0400 Diastolic blood pressure 92 mm[Hg] Austin Camarena APRN.TESS Work Phone: [facility] 01-27-2024 11:07-0400 Heart rate 121 /min Austin Camarena RN ASSESSMENT.CAD ADMINISTRATOR Work Phone: [facility] 01-27-2024 11:07-0400 Respiratory rate 16 /min Austin Camarena RN ASSESSMENT.CAD ADMINISTRATOR Work Phone: [facility] 01-27-2024 11:07-0400 Systolic blood pressure 165 mm[Hg] Austin Camarena RN ASSESSMENT.CAD ADMINISTRATOR Work Phone: [facility] 01-26-2024 16:41-0400 Blood Pressure Location SARAVANAN SANCHEZ MD [facility] 01-26-2024 16:41-0400 Blood Pressure Method SARAVANAN SANCHEZ MD [facility] 01-26-2024 16:41-0400 Diastolic Blood Pressure Non-Invasive 88 mm[Hg] SARAVANAN SANCHEZ MD [facility] 01-26-2024 16:41-0400 Heart rate 99 /min SARAVANAN SANCHEZ MD [facility] 01-26-2024 16:41-0400 Respiratory rate 18 /min SARAVANAN SANCHEZ MD [facility] 01-26-2024 16:41-0400 Systolic Blood Pressure Non-Invasive 150 mm[Hg] SARAVANAN SANCHEZ MD [facility] 01-26-2024 14:44-0400 Blood Pressure Location SARAVANAN SANCHEZ MD [facility] 01-26-2024 14:44-0400 Blood Pressure Method SARAVANAN SANCHEZ MD [facility] 01-26-2024 14:44-0400 Diastolic Blood Pressure Non-Invasive 91 mm[Hg] SARAVANAN SANCHEZ MD [facility] 01-26-2024 14:44-0400 Heart rate 114 /min SARAVANAN SANCHEZ MD [facility] 01-26-2024 14:44-0400 Respiratory rate 18 /min SARAVANAN SANCHEZ MD [facility] 01-26-2024 14:44-0400 Systolic Blood Pressure Non-Invasive 168 mm[Hg] SARAVANAN SANCHEZ MD [facility] 01-26-2024 11:47-0400 Blood Pressure Location SARAVANAN SANCHEZ MD [facility] 01-26-2024 11:47-0400 Blood Pressure Method SARAVANAN SANCHEZ MD [facility] 01-26-2024 11:47-0400 Body temperature 98.24 [degF] SARAVANAN SANCHEZ MD [facility] 01-26-2024 11:47-0400 Body weight 63.6 kg SARAVANAN SANCHEZ MD [facility] 01-26-2024 11:47-0400 Diastolic Blood Pressure Non-Invasive 95 mm[Hg] SARAVANAN SANCHEZ MD [facility] 01-26-2024 11:47-0400 Heart rate 128 /min SARAVANAN SANCHEZ MD [facility] 01-26-2024 11:47-0400 Respiratory rate 20 /min SARAVANAN SANCHEZ MD [facility] 01-26-2024 11:47-0400 Systolic Blood Pressure Non-Invasive 177 mm[Hg] SARAVANAN SANCHEZ MD [facility] 01-25-2024 23:41-0400 Body temperature 98.1 [degF] [facility] 01-25-2024 23:41-0400 Diastolic blood pressure 111 mm[Hg] [facility] 01-25-2024 23:41-0400 Heart rate 85 /min [facility] 01-25-2024 23:41-0400 Respiratory rate 14 /min [facility] 01-25-2024 23:41-0400 SaO2% (BldA) [Mass fraction] 99 % [facility] 01-25-2024 23:41-0400 Systolic blood pressure 165 mm[Hg] [facility] 01-25-2024 18:51-0400 Body height 167.64 cm [facility] 01-25-2024 18:51-0400 Body mass index (BMI) [Ratio] 22.5 kg/m2 [facility] 01-25-2024 18:51-0400 Body weight 63.4 kg [facility] 12-28-2023 15:23-0500 Body weight 63.96 kg Austin Camarena APRN.CAD ADMINISTRATOR Work Phone: [facility] 12-28-2023 15:23-0500 Diastolic blood pressure 78 mm[Hg] Austin Camarena RN ASSESSMENT.CAD ADMINISTRATOR Work Phone: [facility] 12-28-2023 15:23-0500 Heart rate 96 /min Austin Camarena RN ASSESSMENT.CAD ADMINISTRATOR Work Phone: [facility] 12-28-2023 15:23-0500 Respiratory rate 12 /min Austin Camarena RN ASSESSMENT.CAD ADMINISTRATOR Work Phone: [facility] 12-28-2023 15:23-0500 Systolic blood pressure 122 mm[Hg] Austin Camarena RN ASSESSMENT.CAD ADMINISTRATOR Work Phone: [facility] 10-22-2023 11:00-0500 Body weight 63.5 kg Austin Camarena RN ASSESSMENT.CAD ADMINISTRATOR Work Phone: [facility] 10-22-2023 11:00-0500 Diastolic blood pressure 79 mm[Hg] Austin Camarena RN ASSESSMENT.CAD ADMINISTRATOR Work Phone: [facility] 10-22-2023 11:00-0500 Heart rate 92 /min Austin Camarena RN ASSESSMENT.CAD ADMINISTRATOR Work Phone: [facility] 10-22-2023 11:00-0500 Respiratory rate 14 /min Austin Nicoletteoble RN ASSESSMENT.CAD ADMINISTRATOR Work Phone: [facility] 10-22-2023 11:00-0500 Systolic blood pressure 119 mm[Hg] Austin Nicoletteoble RN ASSESSMENT.CAD ADMINISTRATOR Work Phone: [facility] 10-15-2023 11:10-0500 Body weight 63.05 kg Austin Nicoletteoble RN ASSESSMENT.CAD ADMINISTRATOR Work Phone: [facility] 10-15-2023 11:10-0500 Diastolic blood pressure 78 mm[Hg] Austin Nicoletteoble RN ASSESSMENT.CAD ADMINISTRATOR Work Phone: [facility] 10-15-2023 11:10-0500 Heart rate 90 /min Austin Nicoletteoble RN ASSESSMENT.CAD ADMINISTRATOR Work Phone: [facility] 10-15-2023 11:10-0500 Respiratory rate 16 /min Austin Nicoletteoble RN ASSESSMENT.CAD ADMINISTRATOR Work Phone: [facility] 10-15-2023 11:10-0500 Systolic blood pressure 112 mm[Hg] Austin Willoble RN ASSESSMENT.CAD ADMINISTRATOR Work Phone: [facility] Encounters Encounter Date Encounter Type Care Provider Facility Start: 06-13-2025 End: 06-13-2025 Emergency department patient visit Austin Camarena WEATHER STRIP INSTALLER-C Work Phone: -Emergency Department Work Phone: Start: 06-12-2025 End: 06-13-2025 Emergency department patient visit Austin Camarena WEATHER STRIP INSTALLER-C Work Phone: -Emergency Department Work Phone: Start: 06-08-2025 End: 06-08-2025 ambulatory Austin Camarena WEATHER STRIP INSTALLER-C Work Phone: -[facility] Start: 06-08-2025 End: 06-08-[address] Mushtaq Hernandez MD -[facility] Work Phone: Start: 05-17-2025 End: 05-17-2025 Patient encounter procedure Jaycob Argueta DO -[facility] Work Phone: Start: 05-17-2025 End: 05-17-2025 ambulatory Austin CERON Work Phone: -[facility] Start: 05-15-2025 End: 05-18-2025 ambulatory Austin Camarena APRN.CNP Work Phone: Internal [facility] Start: 05-03-2025 End: 05-03-[address] Mushtaq Hernandez MD -[facility] Work Phone: Start: 05-03-2025 End: 05-03-2025 ambulatory Austin CERON Work Phone: [facility] Work Phone: Start: 05-01-2025 End: 05-01-2025 ambulatory AUSTIN CAMARENA Facility:[facility] Start: 05-01-2025 End: 05-01-2025 Follow-up encounter Austin Camarena APRN.CNP Work Phone: [facility] [place] Start: 04-30-2025 End: 04-30-2025 Patient encounter procedure Austin Camarena APRN.CAD ADMINISTRATOR Work Phone: [facility] [place] Comment on above: Dental infection (Pr imary Dx); Screening for depression; Encounter for screening examination for other mental health and behavioral disorders; Medication management; Elevated LDL cholesterol level; Diabetes 1.5, managed as type 2 (HCC) Start: 04-30-2025 End: 04-30-2025 ambulatory AUSTIN CAMARENA Facility:[facility] Start: 04-25-2025 End: 04-25-2025 ambulatory Rufus Brower [facility] Work Phone: [facility] Start: 04-25-2025 End: 04-25-2025 Patient encounter procedure Rufus [place] [facility] Work Phone: [facility] Start: 04-19-2025 End: 04-19-2025 Patient encounter procedure Queenie CERON -[facility] Work Phone: Start: 04-19-2025 End: 04-19-2025 ambulatory Austin Camarena WEATHER STRIP INSTALLERJose EduardoC Work Phone: [facility] Work Phone: Start: 04-16-2025 ambulatory Austin Camarena Facilit y:[facility] Start: 03-26-2025 End: 03-27-2025 Refill Austin Camarena RN ASSESSMENT.CAD ADMINISTRATOR Work Phone: [facility] Comment on above: Refill Request Start: 03-06-2025 End: 03-06-2025 Refill Austin Camarena RN ASSESSMENT.CAD ADMINISTRATOR Work Phone: [facility] Comment on above: Refill Request Start: 02-06-2025 End: 02-06-2025 Emergency department patient visit Austin SYKESC Work Phone: -Emergency Department Work Phone: Start: 01-26-2025 End: 01-26-2025 ambulatory Austin Camarena RN ASSESSMENT.CAD ADMINISTRATOR Work Phone: [facility] Comment on above: Ultra two Start: 01-25-2025 End: 01-25-2025 Patient encounter procedure Austin Camarena APRN.CAD ADMINISTRATOR Work Phone: [facility] Comment on above: ADHD (attention defi cit hyperactivity disorder), predominantly hyperactive impulsive type (Primary Dx) Start: 01-25-2025 End: 01-25-2025 ambulatory AUSTIN CAMARENA Facility:[facility] Start: 01-18-2025 End: 01-18-2025 Patient encounter procedure Queenie Gonzales NP-C -[facility] Work Phone: Start: 01-18-2025 End: 01-18-2025 ambulatory Austin Camarena Facility:[facility] Start: 01-08-2025 End: 03-10-2025 Follow-up encounter Austin Camarena APRN.CAD ADMINISTRATOR Work Phone: [facility] [place] Start: 01-05-2025 End: 01-08-2025 Refill Austin Camarena RN ASSESSMENT.CAD ADMINISTRATOR Work Phone: [facility] Comment on above: Refill Request Start: 12-28-2024 End: 12-28-2024 Patient encounter procedure Prakash Fontana OD Work Phone: Ophthalmology Comment on above: Type 2 diabetes sergio itus without retinopathy (HCC) (Primary Dx); Myopia, bilateral; Nuclear sclerosis of both eyes Start: 12-28-2024 End: 12-28-2024 Patient encounter procedure Austin Camarena APRN.CAD ADMINISTRATOR Work Phone: [facility] [place] Comment on above: Medication managemen t (Primary Dx); ADHD (attention deficit hyperactivity disorder), predominantly hyperactive impulsive type Start: 12-28-2024 End: 01-02-2025 ambulatory Austin Camarena RN ASSESSMENT.CAD ADMINISTRATOR Work Phone: [facility] Comment on above: Test results Start: 12-11-2024 End: 12-11-2024 Patient encounter procedure Austin Camarena APRN.CAD ADMINISTRATOR Work Phone: [facility] Comment on above: ADHD (attention defi cit hyperactivity disorder), predominantly hyperactive impulsive type (Primary Dx); Primary hypertension Start: 12-11-2024 End: 12-11-2024 ambulatory AUSTIN CAMARENA Facility:[facility] Start: 11-27-2024 End: 11-27-2024 ambulatory AUSTIN CAMARENA Facility:[facility] Start: 11-27-2024 End: 11-27-2024 Patient encounter procedure Austin Camarena APRN.CAD ADMINISTRATOR Work Phone: [facility] Comment on above: ADHD (attention defi cit hyperactivity disorder), predominantly hyperactive impulsive type (Primary Dx) Start: 11-24-2024 End: 11-24-2024 Telephone encounter Austin Camarena APRN.CAD ADMINISTRATOR Work Phone: [facility] Comment on above: Results Start: 11-22-2024 End: 11-22-2024 Patient encounter procedure Queenie CERON -[facility] Work Phone: Start: 11-22-2024 End: 11-22-2024 ambulatory Austin Camarena Facility:[facility] Start: 11-20-2024 End: 11-20-2024 ambulatory AUSTIN CAMARENA Facility:[facility] Start: 11-07-2024 End: 11-10-2024 ambulatory Austin Camarena RN ASSESSMENT.CAD ADMINISTRATOR Work Phone: Internal [facility] Start: 10-28-2024 End: 10-28-2024 Emergency department patient visit Dr. Ludin Sanderson MD -Emergency Department Work Phone: Start: 10-27-2024 End: 10-27-2024 ambulatory PRAKASH FONTANA Facility:[facility] Start: 10-27-2024 End: 10-27-2024 Patient encounter procedure Prakash Fontana OD Work Phone: Ophthalmology Comment on above: Type 2 diabetes sergio itus without retinopathy (HCC) (Primary Dx); Myopia, bilateral; Nuclear sclerosis of both eyes Start: 10-18-2024 End: 10-18-2024 Patient encounter procedure Mary Longoria RN ASSESSMENT.CAD ADMINISTRATOR Work Phone: [facility] Comment on above: Procedure not niall d out (Primary Dx) Start: 10-18-2024 End: 10-18-2024 Emergency department patient visit BROOKLYN BOSTON DO Facility:[facility] Start: 10-18-2024 End: 10-18-2024 ambulatory AUSTIN CAMARENA Facility:[facility] Start: 10-03-2024 End: 10-03-2024 ambulatory Austin Camarena Facility:[facility] Start: 08-15-2024 End: 08-15-2024 ambulatory Susi Wilhelm Facility:[facility] Start: 08-07-2024 End: 08-07-2024 Patient encounter procedure Austin Camarena RN ASSESSMENT.CAD ADMINISTRATOR Work Phone: [facility] [place] Comment on above: Nausea and vomiting, unspecified vomiting type (Primary Dx); Type 2 diabetes mellitus with peripheral neuropathy (HCC); Encounter for immunization; Hematemesis with nausea; Acute gastric ulcer without hemorrhage or perforation Start: 08-07-2024 End: 08-07-2024 ambulatory AUSTIN CAMARENA Facility:[facility] Start: 07-31-2024 ambulatory Austin Camarena Facilit y:[facility] Start: 07-30-2024 End: 08-01-2024 ambulatory Victoria Davey Facility:[facility] Start: 07-28-2024 End: 07-29-2024 Emergency department patient visit Austin Camarena Facility:[facility] Start: 07-05-2024 End: 07-05-2024 ambulatory Austin Camarena [facility] Start: 05-16-2024 End: 05-16-2024 Patient encounter procedure Austin Camarena RN ASSESSMENT.CAD ADMINISTRATOR Work Phone: [facility] Comment on above: Type 2 diabetes sergio itus with peripheral neuropathy (HCC) (Primary Dx); Nausea and vomiting, unspecified vomiting type; Diabetes 1.5, managed as type 2 (HCC); Elevated LDL cholesterol level Start: 05-05-2024 End: 05-05-2024 Emergency department patient visit JESSICA KILLIAN DO [facility] Start: 05-01-2024 Get Medical Advice Austin Camarena APRN.CAD ADMINISTRATOR Work Phone: [facility] Comment on above: Refills Start: 04-30-2024 Refill Austin wasserman APRN.TESS Work Phone: [facility] Comment on above: Refill Request Start: 03-28-2024 ambulatory Austin wasserman APRN.CAD ADMINISTRATOR Work Phone: [facility] Comment on above: Insulin pen needles Start: 02-08-2024 End: 02-08-2024 Patient encounter procedure Eder Li Work Phone: Podiatry Comment on above: Porokeratosis (Prima ry Dx); Diabetes 1.5, managed as type 2 (HCC); Diminished pulses in lower extremity Start: 01-29-2024 Non-patient / Non-visit WE[employer]ER [employer]IP INSTALLER-C Brijesh Camarena Work Phone: [facility] Work Phone: Start: 01-28-2024 Non-patient / Non-visit WEATHER STRIP INSTALLER-C Brijesh Camarena [facility] Start: 01-27-2024 End: 01-29-2024 Evaluation and management of inpatient [facility] 3 Work Phone: Start: 01-27-2024 End: 01-27-2024 Patient encounter procedure Austin Camarena APRN.CNP Work Phone: [facility] Comment on above: Type 2 diabetes sergio itus without complication, without long- term current use of insulin (HCC) (Primary Dx); Nausea and vomiting, unspecified vomiting type Start: 01-26-2024 ambulatory Austin wasserman APRN.CNP Work Phone: [facility] Comment on above: Vomiting Start: 01-26-2024 End: 01-26-2024 Emergency department patient visit SARAVANAN SANCHEZ MD [facility] Start: 01-25-2024 End: 01-25-2024 Emergency department patient visit [facility] Work Phone: Start: 12-28-2023 End: 12-28-2023 Patient encounter procedure Austin Camarena APRN.CAD ADMINISTRATOR Work Phone: [facility] Comment on above: Type 2 diabetes sergio itus without complication, without long- term current use of insulin (HCC) (Primary Dx); Encounter for smoking cessation counseling Start: 12-21-2023 Refill Austin wasserman APRN.CNP Work Phone: [facility] Comment on above: Refill Request Start: 10-22-2023 End: 10-22-2023 Patient encounter procedure Austin Camarena APRN.CNP Work Phone: [facility] Comment on above: Type 2 diabetes sergio itus without complication, without long- term current use of insulin (HCC) (Primary Dx); Encounter for smoking cessation counseling Start: 10-15-2023 Telephone encounter Austin de leon APRN.CNP Work Phone: [facility] Comment on above: Results Start: 10-15-2023 End: 10-15-2023 Subsequent hospital visit by physician X[facility] Work Phone: Radiology Comment on above: Chronic cough [R05.3 ] Start: 10-15-2023 End: 10-15-2023 Patient encounter procedure Austin Camarena APRN.CNP Work Phone: [facility] Comment on above: Screening for diabet es mellitus (Primary Dx); Encounter for lipid screening for cardiovascular disease; Wellness examination; Bipolar affective disorder, remission status unspecified (HCC); Encounter for immunization; Diabetes 1.5, managed as type 2 (HCC); Special screening examination for viral disease; Screening for HIV (human immunodeficiency virus); Chronic cough; Callus of foot Start: 10-15-2023 End: 10-15-2023 Patient encounter status Austin Camarena APRN.CAD ADMINISTRATOR Work Phone: [facility] Work Phone: Procedures Date Procedure Procedure Detail Performing Clinician Start: 06-13-2025 Computed tomography of abdomen and pelvis with intravenous contrast Austin Camarena WEATHER STRIP INSTALLER-C Work Phone: Start: 06-13-2025 Estimated creatinine clearance Austin Camarena WEATHER STRIP INSTALLER-C Work Phone: Start: 06-12-2025 Estimated creatinine clearance Austin Camarena WEATHER STRIP INSTALLER-C Work Phone: Start: 06-12-2025 Methadone measurement, urine Austin cunningham WEATHER STRIP INSTALLER-C Work Phone: Start: 06-12-2025 Urnls dip stick/tablet reagent auto microscopy Austin Camarena WEATHER STRIP INSTALLER-C Work Phone: Start: 06-12-2025 Computed tomography of abdomen and pelvis with intravenous contrast Austin Camarena WEATHER STRIP INSTALLER-C Work Phone: Start: 08-07-2024 PFIZER-IO [employer] COVID-19 VACCINE AGE 12+ YR (COMIRNATY) Austin Camarena APRN.CAD ADMINISTRATOR Work Phone: Start: 01-28-2024 Esophagogastroduodenoscopy WE[employer]ER STRIP INSTALLER-C Austin Camarena Work Phone: Start: 01-27-2024 US scan of gallbladder [employer]ER [employer] INSTALLER-C Austin Camarena Work Phone: Start: 01-25-2024 Computed tomography of abdomen and pelvis with intravenous contrast Start: 10-15-2023 Radiologic exam chest 2 views Austin de leon APRN.CAD ADMINISTRATOR Work Phone: None (qualifier value) AUGUSTINE SANCHEZ MD Plan of Treatment Date Care Activity Detail Author Start: 10-15-2033 Urine microalbumin profile DTaP,Tdap,Td Vaccine (2 - Td or Tdap) [facility] Start: 05-01-2026 Hepatitis B screening Urine Albumin:Creatinine Ratio [facility] Start: 04-30-2026 Annual PCP Team Chronic Disease Visit Annual PCP Team Chronic Disease Visit [facility] Start: 04-30-2026 Hepatitis B surface antibody level LDL Cholesterol [facility] Start: 01-25-2026 Annual PCP Team Chronic Disease Visit Annual PCP Team Chronic Disease Visit [facility] Start: 01-03-2026 End: 01-03-2026 Patient encounter procedure 01/03/2026 9:00 AM EST Office Visit [facility] [address] [place], [place] [id number] Prakash Fontana, OD [address] [facility] [address] [place], [place] [id number] 1 year follow up diabetic eye exam Ophthalmology Comment on above: 1 year follow up diabetic eye exam Start: 12-28-2025 Annual PCP Team Chronic Disease Visit Annual PCP Team Chronic Disease Visit [facility] Start: 12-11-2025 Annual PCP Team Chronic Disease Visit Annual PCP Team Chronic Disease Visit [facility] Start: 11-27-2025 Annual PCP Team Chronic Disease Visit Annual PCP Team Chronic Disease Visit [facility] Start: 11-20-2025 Hepatitis B surface antibody level LDL Cholesterol [facility] Start: 10-30-2025 End: 10-30-2025 Patient encounter procedure 10/30/2025 9:20 AM EST Office Visit Family Medicine [facility] [address] [place], [place] [id number] Austin Camarena APRN.CAD ADMINISTRATOR [address] [place], [place] [id number] 6 month follow up [facility] Comment on above: 6 month follow up Start: 10-27-2025 Glaucoma screening Dilated Retinal Exam [facility] Start: 08-07-2025 Annual PCP Team Chronic Disease Visit Annual PCP Team Chronic Disease Visit [facility] Start: 07-09-2025 Influenza vaccination [facility] Start: 06-13-2025 [facility] Start: 06-13-2025 [facility] Start: 05-18-2025 End: 05-18-2025 ambulatory 05/18/2025 9:00 AM EDT Results Only [facility] [address] [facility] [place] [id number] [facility] Start: 05-16-2025 Annual PCP Team Chronic Disease Visit Annual PCP Team Chronic Disease Visit [facility] Start: 05-15-2025 End: 08-14-2025 Hemoglobin A1c in Blood HEMOGLOBIN A1C Lab Routine Diabetes 1.5, managed as type 2 (HCC) Expected: 05/15/2025, Expires: 08/14/2025 [facility] Work Phone: Comment on above: Expected: 05/15/2025, Expires: Start: 05-08-2025 End: 08-07-2025 Comprehensive metabolic 2000 panel - Serum or Plasma COMPREHENSIVE METABOLIC PANEL Lab Routine Hyperkalemia Expected: 05/08/2025, Expires: 08/07/2025 [facility] Work Phone: Comment on above: Expected: 05/08/2025, Expires: Start: 05-07-2025 Influenza vaccination Influenza Vaccine (#1) [facility] Comment on above: Postponed from 07/09/2024 (Declined at t his time) Start: 04-30-2025 End: 04-30-2025 Patient encounter procedure 04/30/2025 2:40 PM EDT Office Visit Family [facility] [address] [facility] [place] [id number] Austin Camarena APRN.CAD ADMINISTRATOR [address] [facility] [place] [id number] 3 month follow up Family Medicine [facility] Comment on above: 3 month follow up Start: 04-30-2025 End: 07-30-2025 Microalbumin/Creatinine [Mass Ratio] in Urine ALBUMIN/CREATININE RATIO, URINE Lab Routine Diabetes 1.5, managed as type 2 (HCC) Expected: 04/30/2025, Expires: 07/30/2025 [facility] Work Phone: Comment on above: Expected: 04/30/2025, Expires: Start: 04-27-2025 End: 04-27-2025 Patient encounter procedure 04/27/2025 3:00 PM EDT Office Visit [facility] [address] [place], [place] [id number] Austin Camarena APRN.CAD ADMINISTRATOR [address] [place] [address] 3 month follow up Family [facility] Comment on above: 3 month follow up Start: 04-04-2025 Hemoglobin A1c measurement HbA1C [facility] Start: 02-18-2025 Hemoglobin A1c measurement HbA1C [facility] Start: 02-07-2025 Diabetic foot examination Diabetic Foot Exam [facility] Start: 02-06-2025 [facility] Start: 02-02-2025 Annual PCP Team Chronic Disease Visit Annual PCP Team Chronic Disease Visit [facility] Start: 01-26-2025 Annual PCP Team Chronic Disease Visit Annual PCP Team Chronic Disease Visit [facility] Start: 01-25-2025 End: 01-25-2025 Patient encounter procedure 01/25/2025 10:40 AM EDT Office Visit [facility] [address] [place], [place] [id number] Austin Camarena APRN.CAD ADMINISTRATOR [address] [place] [address] med follow up [facility] Comment on above: med follow up Start: 01-16-2025 End: 04-17-2025 QUANTITATIVE TOXICOLOGY PANEL, URINE QUANTITATIVE TOXICOLOGY PANEL, URINE Lab Routine Medication management Expected: 01/16/2025, Expires: 04/17/2025 [facility] Work Phone: Comment on above: Expected: 01/16/2025, Expires: Start: 01-16-2025 End: 04-17-2025 TOXICOLOGY SCREEN, ROUTINE URINE TOXICOLOGY SCREEN, ROUTINE URINE Lab Routine Medication management Expected: 01/16/2025, Expires: 04/17/2025 [facility] Comment on above: Expected: 01/16/2025, Expires: Start: 12-28-2024 End: 12-28-2024 Patient encounter procedure 12/28/2024 2:45 PM EST Office Visit [facility] [address] [place] [address] Prakash Fontana, OD [address] [place] [address] refraction check Ophthalmology Comment on above: refraction check Start: 12-28-2024 Annual PCP Team Chronic Disease Visit Annual PCP Team Chronic Disease Visit [facility] Start: 12-28-2024 End: 03-29-2025 QUANTITATIVE TOXICOLOGY PANEL, URINE [facility] Comment on above: Expected: 12/28/2024, Expires: Start: 12-28-2024 End: 03-29-2025 TOXICOLOGY SCREEN, ROUTINE URINE [facility] Work Phone: Comment on above: Expected: 12/28/2024, Expires: Start: 12-11-2024 End: 12-11-2024 Patient encounter procedure 12/11/2024 9:20 AM EST Office Visit Family Medicine [facility] [address] [facility] [place] [address] Austin Camarena APRN.CAD ADMINISTRATOR [address] [facility] [place] [address] 2 week follow up Family [facility] Comment on above: 2 week follow up Start: 11-27-2024 End: 11-27-2024 Patient encounter procedure 11/27/2024 10:20 AM EST Office Visit Family Medicine [facility] [address] [facility] [place] [address] Austin Camarena APRN.CAD ADMINISTRATOR [address] [place], [place] [id number] 6 month follow up Family [facility] Comment on above: 6 month follow up Start: 11-23-2024 End: 11-23-2024 Patient encounter procedure 11/23/2024 1:20 PM EST Office Visit [facility] [address] [place], [place] [phone] Austin Camarena APRN.CAD ADMINISTRATOR [address] [place], [place] [address] 6 month follow up Family [facility] Comment on above: 6 month follow up Start: 11-16-2024 End: 11-16-2024 Patient encounter procedure 11/16/2024 1:20 PM EST Office Visit [facility] [address] [place], [place] [address] Austin Camarena APRN.CAD ADMINISTRATOR [address] [place] [address] 6 month follow up [facility] Comment on above: 6 month follow up Start: 11-08-2024 Medicare Advantage Annual Wellness Visit Medicare Advantage Annual Wellness Visit [facility] Start: 11-07-2024 End: 02-06-2025 Basic metabolic 2000 panel - Serum or Plasma BASIC METABOLIC PANEL Lab Routine Diabetes 1.5, managed as type 2 (HCC) Expected: 11/07/2024, Expires: 02/06/2025 [facility] Work Phone: Comment on above: Expected: 11/07/2024, Expires: Start: 11-07-2024 End: 02-06-2025 Hemoglobin A1c in Blood HEMOGLOBIN A1C Lab Routine Diabetes 1.5, managed as type 2 (HCC) Expected: 11/07/2024, Expires: 02/06/2025 [facility] Comment on above: Expected: 11/07/2024, Expires: Start: 11-07-2024 End: 02-06-2025 Lipid 1996 panel - Serum or Plasma LIPID PANEL BASIC Lab Routine Diabetes 1.5, managed as type 2 (HCC) Expected: 11/07/2024, Expires: 02/06/2025 [facility] Comment on above: Expected: 11/07/2024, Expires: Start: 10-28-2024 [facility] Start: 10-27-2024 End: 10-27-2024 Patient encounter procedure Ophthalmology Comment on above: eye ecam diabetic eye exam Start: 10-26-2024 Glaucoma screening Dilated Retinal Exam [facility] Start: 10-22-2024 Annual PCP Team Chronic Disease Visit Annual PCP Team Chronic Disease Visit [facility] Start: 10-15-2024 3 comp foot exam completed Diabetic Foot Exam [facility] Start: 10-15-2024 Annual PCP Team Chronic Disease Visit Annual PCP Team Chronic Disease Visit [facility] Start: 10-15-2024 Diabetic foot examination Diabetic Foot Exam [facility] Start: 10-15-2024 Hepatitis B screening Urine Albumin:Creatinine Ratio [facility] Start: 10-15-2024 Hepatitis B surface antibody level LDL Cholesterol [facility] Start: 10-05-2024 Hemoglobin A1c measurement HbA1C [facility] Start: 07-09-2024 Covid-19 Vaccine ( season) Covid-19 Vaccine () [facility] Start: 07-09-2024 Influenza vaccination [facility] Start: 07-08-2024 Hemoglobin A1c measurement HbA1C [facility] Start: 05-16-2024 End: 05-16-2024 Patient encounter procedure 05/16/2024 1:40 PM EDT Office Visit Family [facility] [place] [address] [place] [id number] Austin Camarena, RN ASSESSMENT.CAD ADMINISTRATOR [address] [place], [place] [phone] follow up Family Medicine [facility] Comment on above: follow up Start: 05-07-2024 Influenza vaccination Influenza Vaccine (#1) [facility] Comment on above: Postponed from 07/09/2023 (Declined at t his time) Start: 04-28-2024 Hemoglobin A1c measurement HbA1C [facility] Start: 04-15-2024 Hemoglobin A1c/Hemoglobin.total in Blood HbA1C [facility] Start: 03-27-2024 Hemoglobin A1c measurement HbA1C [facility] Start: 02-05-2024 Blood chemistry [facility] Start: 02-04-2024 Blood chemistry [facility] Start: 02-03-2024 Blood chemistry [facility] Start: 02-02-2024 Blood chemistry [facility] Start: 02-01-2024 Blood chemistry [facility] Start: 01-31-2024 Blood chemistry [facility] Start: 01-30-2024 Blood chemistry [facility] Start: 01-29-2024 Patient discharge [facility] Start: 01-28-2024 Referral to gastroenterology service [facility] Start: 01-28-2024 Blood chemistry [facility] Start: 01-28-2024 Complete blood count [facility] Start: 01-27-2024 [facility] Start: 01-27-2024 Ambulation without limitation [facility] Start: 01-27-2024 Assessment of risk of venous thromboembolism [facility] Start: 01-27-2024 Care regimes management [facility] Start: 01-27-2024 Insertion of catheter into peripheral vein [facility] Start: 01-27-2024 Notification of physician [facility] Start: 01-27-2024 Oxygen therapy [facility] Start: 01-27-[facility] Start: 01-27-[facility]24 Providing care according to standard [facility] Start: 01-27-2024 Radionuclide gastric emptying study [facility] Start: 01-27-2024 [facility] Start: 01-27-2024 End: 01-27-2024 Following clinical pathway protocol [facility] Start: 01-27-2024 Verification routine [facility] Start: 01-27-2024 Admission procedure [facility] Start: 01-27-2024 Thyroid stimulating hormone measurement [facility] Start: 01-27-2024 US Gallbladder [facility] Start: 01-27-2024 US scan of gallbladder Gallbladder [facility] Start: 01-27-2024 Patient referral to dietitian [facility] Start: 01-25-2024 [facility] Start: 01-14-2024 Hemoglobin A1c measurement HbA1C [facility] Start: 12-28-2023 End: 03-28-2024 Hemoglobin A1c in Blood [facility] Work Phone: Comment on above: Expected: 12/28/2023, Expires: 4 Start: 11-08-2023 Behavioral Health Screening Behavioral Health Screening [facility] Start: 11-08-2023 Depression Assessment Depression Assessment [facility] Start: 10-15-2023 End: 01-14-2024 ALBUMIN/CREAT RATIO RND UR [facility] Work Phone: Comment on above: Expected: 10/15/2023, Expires: Start: 10-15-2023 End: 01-14-2024 CBC W Auto Differential panel - Blood [facility] Work Phone: Comment on above: Expected: 10/15/2023, Expires: Start: 10-15-2023 End: 01-14-2024 Comprehensive metabolic 2000 panel - Serum or Plasma [facility] Work Phone: Comment on above: Expected: 10/15/2023, Expires: Start: 10-15-2023 End: 01-14-2024 Hemoglobin A1c in Blood [facility] Work Phone: Comment on above: Expected: 10/15/2023, Expires: Start: 10-15-2023 End: 01-14-2024 Hepatitis C virus Ab [Presence] in Serum [facility] Work Phone: Comment on above: Expected: 10/15/2023, Expires: 4 Start: 10-15-2023 End: 01-14-2024 HIV 1+2 Ab [Presence] in Serum or Plasma by Immunoassay [facility] Work Phone: Comment on above: Expected: 10/15/2023, Expires: 4 Start: 10-15-2023 End: 01-14-2024 LIPID PANEL, NONFASTING [facility] Work Phone: Comment on above: Expected: 10/15/2023, Expires: 4 Start: 10-15-2023 End: 01-14-2024 Urinalysis complete panel - Urine [facility] Work Phone: Comment on above: Expected: 10/15/2023, Expires: Start: 07-09-2023 Covid-19 Vaccine () Covid-19 Vaccine () [facility] Start: 2004 Pneumococcal vaccination Pneumococcal Vaccine (1 of 2 - PCV) [facility] Start: 2003 Anxiety Screening Anxiety Screening [facility] Start: 2003 Depression Screening Depression Screening [facility] Start: 2003 Hepatitis B surface antibody level LDL Cholesterol [facility] Start: 2003 Hepatitis C Screening Hepatitis C Screening [facility] Start: 2003 HIV Screening HIV Screening [facility] Start: 1995 Glaucoma screening Dilated Retinal Exam [facility] Start: 1995 Hepatitis B screening Urine Albumin:Creatinine Ratio [facility] Start: 1995 Hepatitis C antibody, confirmatory test Dilated Retinal Exam [facility] Start: 1991 Pneumococcal vaccination [facility] Start: 1990 Hemoglobin A1c/Hemoglobin.total in Blood HbA1C [facility] Anion gap measurement [facility] BUN/Creatinine ratio [facility] Calcium [Mass/volume ] in Serum or Plasma [facility] Carbon dioxide, tota l [Moles/volume] in Serum or Plasma [facility] Chloride [Moles/volu me] in Serum or Plasma [facility] Comprehensive metabo lic 2000 panel - Serum or Plasma [facility] Creatinine [Moles/vo lume] in Serum or Plasma [facility] Erythrocyte mean corpuscular volume determination [facility] Erythrocyte mean corpuscular volume determination [facility] Glucose [Mass/volume ] in Serum or Plasma [facility] Hematocrit [Volume Fraction] of Blood [facility] Hematocrit [Volume Fraction] of Blood [facility] Hemoglobin [Mass/vol ume] in Blood [facility] Hemoglobin [Mass/vol ume] in Blood [facility] Leukocytes [#/volume ] in Blood [facility] Leukocytes [#/volume ] in Blood [facility] Lipid 1996 panel - S layne or Plasma [facility] Mean corpuscular hemoglobin concentration determination [facility] Mean corpuscular hemoglobin concentration determination [facility] Mean corpuscular hemoglobin determination [facility] Mean corpuscular hemoglobin determination [facility] Measurement of renal function [facility] Neutrophil count [facility] Neutrophil percent differential count [facility] Patient Education [facility] Work Phone: Patient referral [facility] Work Phone: Platelets [#/volume] in Blood [facility] Platelets [#/volume] in Blood [facility] Potassium [Moles/vol ume] in Serum or Plasma [facility] QUANT TOX PANEL QUANT TOX PANEL Lab Routine Medication management 12/28/2024 10:58 AM EST [facility] Red blood cell count [facility] Red blood cell count [facility] Red cell distributio n width determination [facility] Red cell distributio n width determination [facility] Sodium [Moles/volume ] in Serum or Plasma [facility] SPECIMEN VALIDITY, URINE SPECIME N VALIDITY, URINE Lab Routine Medication management 12/28/2024 10:58 AM EST [facility] Thyroid stimulating hormone measurement [facility] Urea nitrogen [Mass/volume] in Serum or Plasma [facility] Urine microalbumin/creatinine ratio measurement [facility] End: 02-07-2025 US.doppler Extremity arteries - bilateral for physiologic artery study [facility] V[facility] Lab Routine Diabetes 1.5, managed as type 2 (HCC) Diminished pulses in lower extremity 1 Occurrences starting 02/08/2024 until 02/07/2025 [facility] Work Phone: Comment on above: 1 Occurrences starting 02/08/2024 until 02/07/2025 Vitamin D, 25-hydrox y measurement [facility] Immunizations Immunization Date Immunization Notes Care Provider Delfina staley 08-07-2024 COVID-19 vaccine, ag e 12+ yr ([employer] [facility]) Austin Camarena APRN.CAD ADMINISTRATOR Work Phone: [facility] 10-15-2023 tetanus toxoid, redu fani diphtheria toxoid, and acellular pertussis vaccine, adsorbed Austin Camarena APRN.CAD ADMINISTRATOR Work Phone: [facility] Payers Date Payer Category Payer Unknown [id number] 2024 Medicare (Managed Care) [id number] 2024 Medicare [id number] 2024 Medicaid [id number] 2024 Self-pay [id number] 2021 Medicaid [id number] 2021 Unknown [id number] 2019 Medicare [id number] Medicare [id number] 1985 Unknown [id number] 2.16.8 [id number] 1985 Unknown [id number] 2.16.8 [id number] 1985 Unknown [id number] 2.16.8 [id number] 1985 Unknown [id number] 2.16.8 [id number] Unknown [id number] 2.16.8 [id number] Unknown [id number] 2.16.8 [id number] Unknown [id number] 2.16.8 [id number] Unknown [id number] 2.16.8 40.1.400421.3.579.2.462 Unknown [id number] 2.16.8 40.1.347559.3.579.2.462 Unknown [id number] 2.16.8 40.1.155282.3.579.2.462 Unknown [id number] 2.16.8 40.1.951789.3.579.2.462 Unknown [id number] 2.16.8 40.1.581315.3.579.2.462 Unknown [id number] 2.16.8 40.1.089869.3.579.2.462 Unknown [id number] 2.16.8 40.1.588760.3.579.2.462 Unknown [id number] 2.16.8 40.1.008341.3.579.2.462 Unknown [id number] 2.16.8 40.1.910118.3.579.2.462 Unknown [id number] 2.16.8 40.1.260308.3.579.2.462 Unknown [id number] 2.16.8 40.1.780133.3.579.2.462 Unknown [id number] 2.16.8 40.1.786766.3.579.2.462 Unknown [id number] 2.16.8 40.1.105282.3.579.2.462 Unknown [id number] 2.16.8 40.1.171083.3.579.2.462 Unknown [id number] 2.16.8 40.1.968136.3.579.2.462 Unknown [id number] 2.16.8 40.1.720790.3.579.2.462 Unknown [id number] 2.16.8 40.1.637056.3.579.2.462 Social History Date Type Detail Facility Start: 10-15-2023 Tobacco smoking status NHIS Smokes tobacco daily [facility] Work Phone: Start: 02-04-1999 End: 02-05-2024 History of tobacco use Cigarette Smoker [facility] Work Phone: Start: 10-15-2023 End: 10-22-2023 Cigarettes smoked current (pack per day) - Reported 1.5 [facility] Start: 10-15-2023 End: 12-28-2024 Alcohol intake Ex-drinker (finding) [facility] Start: 03-26-2021 End: 10-15-2023 Social connection and isolation panel [facility] Do you belong to any clubs or organizations such as restorationism groups, unions, fraternal or athletic groups, or school groups? No [facility] Are you now , , , , never or living with a partner? Living with partner [facility] How often to you hav e a drink containing alcohol? Never [facility] How many standard dr inks containing alcohol do you have on a typical day? Patient refused [facility] How hard is it for y ou to pay for the very basics like food, housing, medical care, and heating Somewhat hard [facility] Do you feel stress - tense, restless, nervous, or anxious, or unable to sleep at night because your mind is troubled all the time - these days [OSQ] Very much [facility] (I/We) worried whevaleri er (my/our) food would run out before (I/we) got money to buy more. Often true [facility] The food that (I/we) bought just didn't last, and (I/we) didn't have money to get more. Never true [facility] At any time in the p ast 12 months, were you homeless or living in correction [including now]? Yes [facility] Start: 03-26-2021 Education 11 [facility] Start: 1985 Sex Assigned At Male [facility] Start: 03-25-2021 Gender identity Identifies as male gender (finding) [facility] Start: 06-09-2021 Sexual orientation Heterosexual (finding) [facility] Are you now , , , , never or living with a partner? [facility] Do you feel stress - tense, restless, nervous, or anxious, or unable to sleep at night because your mind is troubled all the time - these days [OSQ] Rather much [facility] Start: 01-25-2024 End: 01-27-2024 Tobacco smoking status PRIS Unknown if ever smoked [facility] Start: 02-28-2021 None [facility] Start: 02-28-2021 Alone [facility] Start: 05-06-2020 Cigarettes [facility] Start: 02-08-2024 End: 02-06-2025 Tobacco smoking status NHIS Ex-smoker [facility] Start: 02-04-1999 End: 02-05-2024 History of tobacco use Current smoker [facility] How hard is it for y ou to pay for the very basics like food, housing, medical care, and heating Not very hard [facility] Start: 02-06-2025 Sex Male (finding) [facility] Start: 06-12-2025 End: 06-13-2025 Tobacco smoking status NHIS Current some day smoker [facility] Medical Equipment Procedure Code Equipment Code Equipment Original Text Equipment Identifier Dates [id number], [id number], [id number], [id number] Start: 10-22-2023 End: 03-26-2025 Comment on above: [...] Assessment Result Facility 05-05-2024 Functional Status Independent [facility] 01-29-2024 [facility] Work Phone: 01-26-2024 Functional Status Independent [facility] 01-26-2024 Functional Status ID band on, Call device within reach, Bed in low position, Wheels locked, Upper/Half-Length side-rails up, Visitor at bedside, Safety level maintained [facility] 06-10-2015 Are you deaf, or do you have serious difficulty hearing No 06/10/2015 4:22 PM EDT Cinthia Malone MA No [facility] 06-10-2015 Are you blind, or do you have serious difficulty seeing, even when wearing glasses No 06/10/2015 4:22 PM EDT Cinthia Malone MA No [facility] 06-10-2015 Do you have serious difficulty walking or climbing stairs No 06/10/2015 4:22 PM EDT Cinthia Malone MA No [facility] 06-10-2015 Do you have difficul ty dressing or bathing No 06/10/2015 4:22 PM EDT Cinthia Malone MA No [facility] 06-10-2015 Because of a physica l, mental, or emotional condition, do you have difficulty doing errands alone such as visiting a physician's office or shopping No 06/10/2015 4:22 PM EDT Cinthia Malone MA No [facility] Mental Status Date Assessment Result Facility 02-06-2025 Cognitive function Level Of Cons ciousness Awake;Alert;Appropriate [facility] Work Phone: 05-05-2024 Mental Status Orientation Oriented x 4 [facility] 05-05-2024 Mental Status [facility] 01-29-2024 Cognitive function Voice/Name [facility] Work Phone: 01-26-2024 Mental Status Orientation Oriented x 4 [facility] 01-26-2024 Mental Status [facility] 06-10-2015 Because of a physica l, mental, or emotional condition, do you have serious difficulty concentrating, remembering, or making decisions No 06/10/2015 4:22 PM EDT Cinthia Malone MA [facility] Clinical Notes 10-15-2023 to 06-13-2025 Note Date & Type Note Facility 06-13-2025 Radiology Diagnostic study note [facility] Imaging Services [address] [place] [address] Abdomen/Pelvis W IV Cont ONLY MR#: [id number] Acct: [id number] Name: WESTON GAMEZ Rep #: [id number] : 1985 M 39 From: Andrea Cai MD PCP: Austin Camarena, WEATHER STRIP INSTALLER-C Status: REG ER Study:Abdomen/Pelvis W IV Cont ONLY Date of E xam: 06/13/25 Exam# [id number] Ordering Dr: Rudolph Antonio MD PROCEDURE: ABDOMEN/PELVIS [...] represent cystitis. Correlate with urinalysis. Reading Location: [facility] 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 Garima Antonio MD ~ Drawing Machine Operator: Signed [facility] 06-13-2025 Discharge summary [facility] 06-12-2025 Radiology Diagnostic study note [facility] Imaging Services [address], [place] [id number] Abdomen/Pelvis W IV Cont ONLY MR#: [id number] Acct: [id number] Name: WESTON GAMEZ Rep #: [id number] : 1985 M 39 From: Priyanka Anguiano MD PCP: JIE Geller Status: REG ER Study:Abdomen/Pelvis W IV Cont ONLY Date of E xam: 06/12/25 Exam# [id number] Ordering Dr: August Zimmerman DO PROCEDURE: ABDOMEN/PELVIS [...] ONLY IMPRESSION: No acute findings Reading Location: [place] [address] CC: WEATHER STRIP INSTALLEROskar Camarena; Dr. August Carroll DO ~ Drawing Machine Operator: Signed [facility] 06-12-2025 Discharge summary Note Date/Time June 13, 2025 2:02am [facility] Medical Records Department [address] [place] [address] Emergency Department Summary 06/12/25 MR#: [id number] Acct: [id number] Name: WESTON GAMEZ Rep #:[id number] : [...] Barbosa DO> Cosigner Signature (if applicable): cc: WEATHER STRIP INSTALLEROskar Camarena ~* Signed HPI History of Present [...] intact Psych: Cooperative, appropriate mood and affect [facility] Medical History Gastroparesis Former tobacco use Cannabis [...] 82.2 H Lymph % (Auto) 11.8 L [place] % (Auto) 4.6 Eos % (Auto) 0.3 [...] Clarity Clear Urine pH 7.0 Ur Specific Porter 1.010 Urine Protein 100 H Urine Glucose [...] 20:49 IMPRESSION: No acute findings Reading Location: [place] [address] Discharge Plan Triage Chief Complaint: Abd Pain ED Provider: August Carroll Dx/Rx/DC Orders Prescriptions: No Action gabapentin 100 [...] NP-C [Primary Care Provider] - Print Language: German What to do if you have Problems For any increased pain, shortness of breath, bleeding, nausea or vomiting, chestpain, or any unexpected problems, contact your Primary Care Provider. Call [facility] ([phone]) or report to the closest Emergency Room. Call 911 if necessary. 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 05-01-2025 Telephone encounter Note* Telephone Encounter - Lisseth Morel MA - 05/01/2025 2:19 PM EDT Pt notified and verbalized understanding. Labs faxed Lisseth Morel MA [facility]06-24-2025 Miscellaneous Notes* Telephone Encounter - Lisseth Morel [...] and fax labs to Dr. Hernandez at [facility] for review. documented in this encounterSouth[facility]06-[facility]-2025 Telephone encounter Note * Telephone Encounter - Austin Camarena APRN.TESS - 05/01/2025 9:58 AM EDT Please let patient know his metabolic panel shows elevated potassium and BS. I have forwarded his labs to endocrinology for review. Repeat in 1 week, increase PO fluid intake. Please print and fax labs to Dr. Hernandez at [facility] for review. [facility]06-23-2025 NoteHNO ID: [id number] Author: AUSTIN CAMARENA APRN.CNP Service: ? Author [...] scheduled - ALBUMIN/CREATININE RATIO, URINE Austin Camarena APRN.[facility]ESSMer[facility] History of Present illness Narrative* Austin Camarena APRN.CAD ADMINISTRATOR - 04/30/2025 2:28 PM EDT Chief Complaint [...] scheduled - ALBUMIN/CREATININE RATIO, URINE Austin Camarena APRN.CAD ADMINISTRATOR documented in this encounterSouthwest [facility]06-18-2025 History of Present illness Narrative* Rufus Brower [facility] - 04/25/2025 2:49 PM EDT Primary Care [...] pump) Rufus Brower RPh documented in this encounterSouthwest [facility] Center06-18-2025 NoteHNO ID: [id number] Author: RUFUS BROWER RPh Service: ? Author [...] he uses Omnipod insulin pump) [facility]uf[facility] Brow[facility] NotePatient Outreach (PHMEWO) WESTON GAMEZ ([id number]) 1985 [facility] Date Time Provider Department 04/25/25 RUFUS BROWER ZACHARY During your visit today, we recorded the [...] uses Omnipod insulin pump) Rufus Brower RPh Allergies As of Date: 04/25/2025 (No Known [...] 10/15/2023 Encounter Status:Closed by RUFUS BROWER on 04/25/25[facility] 04-19-2025 Evaluation note* Diagnosis Onset Date [...] infection acute May 17, 2025 2:45pm [facility] Work Phone: [phone]) [phone] Telephone encounter Note* Telephone Encounter - Sudheer [...] Anna LPN March 26, 2025 7:09 PM [facility]05-19-2025 Miscellaneous Notes* Telephone Encounter - Sudheer Anna [...] 26, 2025 7:09 PM documented in this encounterSouthwest [facility] Center04-29-2025 Telephone encounter Note * Telephone Encounter - [...] Greenwood LPN March 06, 2025 8:20 AM [facility]04-29-2025 Miscellaneous Notes* Telephone Encounter - Letiica Greenwood LPN - 03/06/2025 8:18 AM EDT [...] 06, 2025 8:20 AM documented in this encounterSouthwest [facility] Center04-01-2025 Discharge summary [facility] Medical Records Department [address] [place] [address] Emergency Department Summary 02/06/25 MR#: [id number] Acct: [id number] Name: WESTON GAMEZ Rep #:[id number] : 1985 39 From: Ludin Sanderson MD PCP: ONEL GellerC Status:PRE ER Location: ED HPI History of [...] quit smoking cigarettes about a month ago. [facility] Medical History Gastroparesis Former tobacco use Cannabis [...] Unknown History insulin pump cartridge,automated #1 ea 08/28/24 Unknow n Rx dose,BT with controller subcutaneous [...] follow-up with a dentist. He will continue rtxk-xvf-vffdqvz analgesics. Return instructions to the emergency department [...] Care Provider: Austin Camarena Referrals: Austin Camarena WEATHER STRIP INSTALLER-C [Primary Care Provider] - Activity Restrictions/Additional Instructions: Continue to not smoke cigarettes. Follow-up with a dentist as soon as possible. Take the antibiotics as directed. Return with difficulty swallowing or breathing, sustained high fever, new or worsening symptoms. Print Language: German Disposition Disposition: Home, Self Care What to do if you have Problems For any increased pain, shortness of breath, bleeding, nausea or vomiting, chestpain, or any unexpected problems, contact your Primary Care Provider. Call [facility] ([phone]) or report tothe closest Emergency Room. Call 911 if necessary. 02/06/25 1822 Cosigner Signature (if applicable): CC: JIE Camarena ~ Signed [facility]04-01-2025 Discharge summary Author Ludin Sanderson [facility] Note Date/Time February 06, 2025 6:22 pm [facility] Medical Records Department [address] [place] [address] Emergency Department Summary 02/06/25 MR#: [id number] Acct: [id number] Name: WESTON GAMEZ Rep #:[id number] : [...] quit smoking cigarettes about a month ago. [facility] Medical History Gastroparesis Former tobacco use Cannabis [...] follow-up with a dentist. He will continue vvhm-huf-saibkiw analgesics. Return instructions to the emergency department [...] Care Provider: Austin Camarena Referrals: Austin Camarena WEATHER STRIP INSTALLER-C [Primary Care Provider] - Activity Restrictions/Additional Instructions: Continue to not smoke cigarettes. Follow-up with a dentist as soon as possible. Take the antibiotics as directed. Return with difficulty swallowing or breathing, sustained high fever, new or worsening symptoms. Print Language: German Disposition Disposition: Home, Self Care What to do if you have Problems For any increased pain, shortness of breath, bleeding, nausea or vomiting, chestpain, or any unexpected problems, contact your Primary Care Provider. Call [facility] ([phone]) or report to the closest Emergency Room. Call 911 if necessary. 02/06/252 <Electronically signed by Ludin Sanderson MD> Cosigner Signature (if applicable): CC: WEATHER STRIP INSTALLER-C Austin Camarena ~ Signed [facility] Work Phone: 1(437) 297-864603-21-2025 Telephone encounter Note* Telephone Encounter - Elba Darnell MA - 01/26/2025 1:47 PM EDT Please see message from pt. I pended meter kit. Elba Darnell MA [facility]03-21-2025 Miscellaneous Notes* Telephone Encounter - Elba Darnell MA - 01/26/2025 1:47 PM EDT Please see message from pt. I pended meter kit. Elba Darnell MA documented in this encounterSouthwest General Health Center03-20-2025 NoteHNO ID: [id number] Author: AUSTIN CAMARENA APRN.CAD ADMINISTRATOR Service: ? Author Type: Nurse Practitioner Type: Progress Notes Filed: 01/25/2025 15:59 Note Text: Chief Complaint Patient presents with: Medication Follow-up HPI Weston Gamez is a 39 year old male who presents here today for Above Complaints.. Patient presents for medication follow up. Patient reports he stopped strattera and is seeing psych who placed him on buspar, adderall. Patient seeing psych in [facility]. Past medical history, appointments, medications, [...] up for other chronic conditions. Austin Camarena APRN.[facility]03-20-2025 History of Present illness Narrative* Austin Camarena APRN.CAD ADMINISTRATOR - 01/25/2025 3:40 PM EDT Chief Complaint Patient presents with: Medication Follow-up HPI Weston Gamez is a 39 year old male who presents here today for Above Complaints.. Patient presents for medication follow up. Patient reports he stopped strattera and is seeing psychwho placed him on buspar, adderall. Patient seeing psych in [facility]. Past medical history, appointments, medications, [...] up for other chronic conditions. Austin Camarena APRN.CAD ADMINISTRATOR documented in this encounterSouthwest [facility] Health Center03-13-2025 Evaluation note* Diagnosis Onset Date Resolution Status Admit Date Elevated alkaline phosphatas e level chronic January 18, 2025 1:02pm Elevated AST (SGOT) chronic January 18, 2025 1:02pm High cholesterol chronic January 182024 1:02pm Hypertension chronic January 18, 2025 1:02pm Insulin pump titration chronic [facility] 2024 1:02pm Presence of insulin pump chronic January 18, 2025 1:02pm Type 1 diabetes chronic January 1:02pm [facility] Work Phone: [phone]) [phone] Evaluation note* Diagnosis Onset Date Resolution Status Admit Date Elevated alkaline phosphatas e level chronic January 18, 2025 1:02pm Elevated AST (SGOT) chronic January 18, 2025 1:02pm High cholesterol chronic January 182024 1:02pm Hypertension chronic January 18, 2025 1:02pm Insulin pump titration chronic [facility] 2024 1:02pm Presence of insulin pump chronic January 18, 2025 1:02pm Type 1 diabetes chronic January 1:02pm High cholesterol chronic April 1:07pm Hypertension chronic April 19 025 1:07pm Insulin pump titration chronic [facility] 2024 1:07pm Presence of insulin pump chronic April 19, 2025 1:07pm Type 1 diabetes chronic April 1:07pm [facility] Work Phone: 1([phone]) 154-225603-13-2025 Evaluation note* Diagnosis Onset Date Resolution Status Admit Date Elevated alkaline phosphatas e level chronic January 18, 2025 1:02pm Elevated AST (SGOT) chronic January 18, 2025 1:02pm High cholesterol chronic January 182024 1:02pm Hypertension chronic January 18, 2025 1:02pm Insulin pump titration chronic [facility] 2024 1:02pm Presence of insulin pump chronic January 18, 2025 1:02pm Type 1 diabetes chronic January 1:02pm High cholesterol chronic April 1:07pm Hypertension chronic April 19 1:07pm Insulin pump titration chronic [facility] 2024 1:07pm Presence of insulin pump chronic April 19, 2025 1:07pm Type 1 diabetes chronic April 1:07pm Bipolar disorder chronic April 8:44am Hypertension chronic May 03 025 8:44am Presence of insulin pump chronic May 03, 2025 8:44am Type 1 diabetes chronic April 8:44am [facility] Work Phone: 1(643) 226-894803-03-2025 Telephone encounter Note* Telephone Encounter - Oksana [...] Naidu LPN January 08, 2025 12:30 PM [facility]03-03-2025 Miscellaneous Notes* Telephone Encounter - Oksana Naidu [...] 08, 2025 12:30 PM documented in this encounterSouthwest General Health Center03-03-2025 Progress note* Result Encounter Note - Elba Darnell MA - 01/08/2025 8:49 AM EST Call to pt and notified him of results and recommendations below from Provider. Pt verbalized understanding. Elba Darnell MA [facility]03-03-2025 Miscellaneous Notes* Result Encounter Note - Elba [...] a prescription for replacement. documented in this encounterSouthwest General Health Center03-03-2025 Telephone encounter Note * Telephone Encounter - Austin Camarena APRN.CNP - 01/08/2025 8:45 AM EST Please let patient know his vitamin d is low. I have sent a prescription for replacement. [facility]02-20-2025 NoteHNO ID: [id number] Author: PRAKASH FONTANA OD Service: ? Author Type: BREAKFAST HOSTESS Type: Progress Notes Filed: 12/28/2024 15:45 Note Text: (E11.9) Type 2 diabetes mellitus without retinopathy (HCC) (primary encounter diagnosis) (H52.13) Myopia, bilateral (H25.13) Nuclear sclerosis of both eyes No previous retinopathy Stable rx today compared to Prakash Fontana, ZENA December 28, 2024 3:[facility] History of Present illness Narrative* Prakash Fontana, OD - 12/28/2024 3:44 PM EST (E11.9) Type 2 diabetes mellitus without retinopathy (HCC) (primary encounter diagnosis) (H52.13) Myopia, bilateral (H25.13) Nuclear sclerosis of both eyes No previous retinopathy Stable rx today compared to Prakash Fontana, ZENA December 28, 2024 3:44 PM documented in this encounterSouthwest General Health Center02-20-2025 NoteHNO ID: [id number] Author: AUSTIN CAMARENA APRN.CNP Service: ? Author [...] daily once tox screen results. Austin Camarena APRN.[facility]-20-2025 History of Present illness Narrative* Austin Camarena APRN.CAD ADMINISTRATOR - 12/28/2024 10:06 AM EST Chief Complaint [...] daily once tox screen results. Austin Camarena APRN.CAD ADMINISTRATOR documented in this encounterSouthwest General Health Center02-03-2025 NoteHNO ID: [id number] Author: AUSTIN CAMARENA APRN.CAD ADMINISTRATOR Service: ? Author Type: Nurse Practitioner Type: [...] - LISINOPRIL 20 MG TABLET Austin Camarena APRN.[facility]ESSMer[facility]-03-2025 History of Present illness Narrative* Austin Camarena APRN.CAD ADMINISTRATOR - 12/11/2024 9:09 AM EST Chief Complaint [...] TABLET Austin Camarena APRN.CNP documented in this encounterSouthwest General Health Center01-20-2025 Instructions* Patient Instructions* Austin Camarena APRN.CNP - 11/27/2024 3:46 PM EST Be PCSA - Insurance Therapy/Counseling [facility] [address] [place] [address] [facility] [address] [place] [address] [employer] [address] [address] [facility] [address] [place] [address] [facility] [address] [place] [address] [facility], [facility]. [address] [place] [address] [employer] [address] [place] [address] [place] [address] documented in this encounterSouthwest General Health Center01-20-2025 NoteHNO ID: [id number] Author: AUSTIN CAMARENA APRN.CAD ADMINISTRATOR Service: ? Author Type: Nurse Practitioner Type: [...] - ATOMOXETINE 10 MG CAPSULE Austin Camarena APRN.[facility]ESSMer[facility]01-20-2025 History of Present illness Narrative* Austin Camarena APRN.CAD ADMINISTRATOR - 11/27/2024 3:37 PM EST Chief Complaint [...] CAPSULE Austin Camarena APRN.CNP documented in this encounterSouthwest General Health Center01-17-2025 Telephone encounter Note * Telephone Encounter - Lisseth Morel MA - 11/24/2024 3:13 PM EST Pt notified and verbalized understanding Lisseth Morel MA [facility]01-17-2025 Miscellaneous Notes* Telephone Encounter - Lisseth Morel MA - 11/24/2024 3:13 PM EST Pt notified and verbalized understanding Lisseth Morel MA * Telephone Encounter - Austin Camarena APRN.CNP - 11/24/2024 10:48 AM EST Please let patient know his hgba1c is 10.6. Patient should follow up with endocrinology. His other labs are stable. documented in [facility]25 Telephone encounter Note * Telephone Encounter - Austin Camarena APRN.CNP - 11/24/2024 10:48 AM EST Please let patient know his hgba1c is 10.6. Patient should follow up with endocrinology. His other labs are stable. [facility]01-15-[facility] Evaluation note* Diagnosis Onset Date Resolution Status Admit Date Elevated alkaline phosphatas e level chronic November 22 11:43am Elevated AST (SGOT) chronic Janua ry 2024 11:43am Hypertension chronic November 11:43am Insulin pump titration chronic Alonzo viera 2024 11:43am Presence of insulin pump chronic November 22, 2024 11:43am Type 1 diabetes chronic November 082024 11:43am Elevated alkaline phosphatas e level chronic January 18, 2025 1:02pm Elevated AST (SGOT) chronic January 18, 2025 1:02pm High cholesterol chronic January 182024 1:02pm Hypertension chronic January 18, 2025 1:02pm Insulin pump titration chronic [facility] 2024 1:02pm Presence of insulin pump chronic January 18, 2025 1:02pm Type 1 diabetes chronic January 1:02pm [facility] Work Phone: 1(483) 329-888812-31-2024 NotePatient Outreach (INTMMN) WESTON GAMEZ ([id number]) 1985 M T Date Time Provider Department 11/07/24 AUSTIN CAMARENA During your visit today, we recorded the following information about you: Allergies As of Date: 11/07/2024 (No Known Allergies) Date Reviewed: 10/27/2024 Reviewed by: Prakash Fontana OD - Fully Assessed Visit Diagnosis:Diabetes 1.5, 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 10-27-2024 NoteHNO ID: [id number] Author: PRAKASH FONTANA OD Service: ? Author Type: BREAKFAST HOSTESS Type: Progress Notes Filed: 10/27/2024 11:02 Note Text: 1. Type 2 diabetes mellitus without retinopathy (HCC) Risk of diabetic changes and vision loss can be minimized by tight control of blood sugar, blood pressure, and cholesterol levels. Educated patient to continue care with primary care doctor and/or granite setter to maintain optimum levels as they are [...] Prakash Fontana, OD October 27, 2024 10:59 [facility]12-20-2024 History of Present illness Narrative* Addi Prakash Rashmi, OD - 10/27/2024 10:59 AM EST 1. Type 2 diabetes mellitus without retinopathy (HCC) Risk of diabetic changes and vision loss can be minimized by tight control of blood sugar, blood pressure, and cholesterol levels. Educated patient to continue care with primary care doctor and/or granite setter to maintain optimum levels as they are [...] 27, 2024 10:59 AM documented in this encounterSouthwest [facility] Center12-11-2024 NoteHNO ID: [id number] Author: MARY LONGORIA APRN.TESS Service: ? Author Type: Nurse Practitioner [...] evaluation and treatment. He will go to [facility]. Mary Longoria APRN.[facility]12-11-2024 History of Present illness Narrative* Mary Longoria APRN.CAD ADMINISTRATOR - 10/18/2024 1:24 PM EST Weston Gamez is a 39 year old male who presents to [facility] for abdominal pain, vomiting, fever. Person with him states he has had fever of 102 degrees F and can't quit vomiting. He is crying in the triage room. He is directed to the ED for further evaluation and treatment. He will go to [facility]. Mary Longoria APRN.CAD ADMINISTRATOR documented in this encounterSouthwest [facility] Center09-30-2024 NoteHNO ID: [id number] Author: AUSTIN CAMARENA APRN.TESS Service: ? Author [...] with Dr. Argueta as scheduled Austin Camarena APRN.[facility]09-30-2024 History of Present illness Narrative* Austin Camarena APRN.CAD ADMINISTRATOR - 08/07/2024 8:57 AM EDT Chief Complaint [...] with Dr. Argueta as scheduled Austin Camarena APRN.CAD ADMINISTRATOR documented in this encounterSouthwest [facility] Center09-24-2024 [facility] Medical Records Department [address] [place] [id number] Discharge Summary 08/01/24 1352 MR#: [id number] Acct: [id number] Name: WESTON GAMEZ Rep #: [id number] : 1985 38 From: Victoria Davey DO PCP: JIE Geller Status:ADM KINSEY Location: [place] [address] Providers Date of Admission: 07/30/24 Date of [...] #30 tabs 05/01/24 blood-glucose meter,continuous (Dexcom G7 Map Colorer) #1 ea 05/04/24 gabapentin 100 mg capsule [...] Hospital Course: Mr. Gamez is a 38-year-old -Macanese male with a history of schizoaffective disorder, diabetes, and gastroparesis with cyclic vomiting syndrome due to previous TSH use who presented to the emergency department at [facility] on 07/1012/28/2023 with a chief complaint [...] well. We did wri (more content not included)...[facility]07-09-2024 Note* Addendum Note - Austin Camarena APRN.CNP - 05/16/2024 2:13 PM EDTAddended by: AUSTIN CAMARENA on: 05/16/2024 02:13 PM Modules accepted: Orders [facility]07-09-2024 Miscellaneous Notes* Addendum Note - Austin Camarena APRN.CNP - 05/16/2024 2:13 PM EDTAddended by: AUSTIN CAMARENA on: 05/16/2024 02:13 PM Modules accepted: Orders documented in this encounterSouthwest [facility] Health Center07-09-2024 History of Present illness Narrative* Austin Camarena APRN.CNP - 05/16/2024 1:45 PM EDT Chief Complaint Patient presents with: ER F/U HPI Weston Gamez is a 38 year old male who presents here today for Above Complaints.. Patient presents for ER follow up. Patient was seen in [facility] for continued lower abdominal pain and [...] Covid-19 Vaccine(3 - season) due on 07/09/2023 Behavioral Health Screening [...] - ROSUVASTATIN 5 MG TABLET Austin Camarena APRN.CAD ADMINISTRATOR documented in this encounterSouthwest General Health Center06-28-2024 Hospital Discharge instructions Patient Education 05/05/2024 15:24:55 [...] you feel better and your symptoms ease. 1742-1375 [employer] [address] [place] [address], [place] [address]. All rights reserved. This information is not intended as a substitute for professional medical care. Always follow yourhealthcare professional's instructions. Follow Up Care 05/05/2024 13:23:55 With:[facility] Address: [address] [place] [phone] When:2-4 days [facility] 06-28-2024 Note Discharge Instructions Thank you for allowing [facility] to assist you with your healthcare needs. The following is importantdischarge information regarding your hospital visit. Diagnosis from Today's Visit Nausea What to Do Next Instructions from Your Care Team No qualifying data available. Post Acute Orders No qualifying data available. You Need to Schedule the Following Appointments Follow Up with [facility] When:Within 2-4 days Where:[address] [place] [phone] Allergies NKA Medications Please ask your primary doctor or pharmacist before taking any other medication not listed, including over the counter drugs, herbal medications, vitamins and or supplements as they may interact withur home medications. What How Much When Why [...] may report side effects to FDA at 5-594-SVM-7494. What other drugs will affect ondansetron? Ondansetron [...] interact with ondansetron. This includes prescription and ahmz-btp-pogphii medicines, vitamins, and herbal products. Give a [...] to ensure that the information provided by [employer]. ('Multum') is accurate, up-to-date, and complete, but no guarantee is made to that effect. Drug information contained herein may be time sensitive. [employer] information has been compiled for use by healthcare practitioners and consumers in the [place] and therefore [employer] does not warrant that uses outside of the [place] are appropriate, unless specifically indicated otherwise. [employer] drug information does not endorse drugs, diagnose patients or recommend therapy. [employer] drug information isan informational resource designed to [...] effective or appropriate for any given patient. [employer] does not assume any responsibility for any aspect of healthcare administered with the aid of information [employer] provides. The information contained herein is not intended to cover all possible uses, directions, precautions, warnings, drug interactions, allergic reactions, or adverse effects. If you have questions about the drugs you are taking, check with your doctor, nurse or pharmacist. Copyright 3800-4552 [employer]. Version: 16.. Revision Date: 06/10/2023. Education Materials [...] you feel better and your symptoms ease. 9125-5763 [employer] [address] [place] [address], [place] [address]. All rights reserved. This information is not intended as a substitute for professional medical care. Always follow yourhealthcare professional's instructions. Additional Information VACCINATE! IT SAVES LIVES! Members of the community who have not yet received the COVID-19 vaccine and would like to receive it can visit one of [facility] vaccine clinics. There are many vaccine clinic locations within the [facility]. For locations and available times, please visit www.gettheshot.coronavirus.[place].gov/. It is important to note that some COVID mobile vaccine clinics are held outdoors and may be canceled in rainy or stormy conditions. To learn more about pediatric vaccinations (ages 5-11), we invite you to visit the [facility] webpage. https://www.[facility].org/pages/9097-Fabpv-Hzjmzdaalxy-Vrcfjotphh-Yinvv-Fua stions.htmlTo learn more about the COVID-19 vaccine, we invite you to visit the CDC website for a list of frequently asked questions. https://www.cdc.gov/coronavirus/2019-ncov/vaccines/faq.html [facility] [employer] Patient Portal Access Instructions: Stay connected with your healthcare team and access your personal medical information anytime with the [facility] Patient Portal. If you would like a full copy of your medical records please contact the [facility] Medical Records Department Wednesday through Wednesday between 8a.m. and 4:30p.m. Please follow the directions below to access the portal: 1.Access the email account you provided upon registration to the hospital.2.Look for an invitation email from [facility].3.Open the email and access the invitation link: Accept Invitation to [facility] Photos4.Fill in the required orona to create your [...] you will allow to register on the [facility] Patient Portal for access to your information. You can also access the [facility] Patient Portal on the [employer]. Simply click on Health Records under BetterYou and then click on the Alondra logo. [...] Call your local pharmacy or go to http://UniServity.Pick a Student/2N2Qq5c to find one close to you.3.Make use of household items: Use cat litter or old coffee grounds to dispose medications if other options arenot available. Mix your drugs with these household products, seal them in an airtight container andthrow it into the garbage. Call [facility]: [phone] to be sure your drugs can be [...] aware that I should contact my doctor. Patient/Carboy Filler Signature: Date/Time: Relationship to Patient: Witness Name/Signature: Date/Time: [facility]06-28-2024 Note Discharge Instructions Thank you for allowing [facility] to assist you with your healthcare needs. The following is importantdischarge information regarding your hospital visit. Diagnosis from Today's Visit Nausea What to Do Next Instructions from Your Care Team No qualifying data available. Post Acute Orders No qualifying data available. You Need to Schedule the Following Appointments Follow Up with [facility] When:Within 2-4 days Where:[address] [place] [phone] Allergies NKA Medications Please ask your primary [...] may report side effects to FDA at 9-491-KKB-9931. What other drugs will affect ondansetron? Ondansetron [...] interact with ondansetron. This includes prescription and znkt-vyf-xnrftbq medicines, vitamins, and herbal products. Give a [...] to ensure that the information provided by [employer]. ('Mult[employer]') is accurate, up-to-date, and complete, but no guarantee is made to that effect. Drug information contained herein may be time sensitive. [employer] information has been compiled for use by healthcare practitioners and consumers in the [place] and therefore [employer] does not warrant that uses outside of the [place] are appropriate, unless specifically indicated otherwise. [employer] drug information does not endorse drugs, diagnose patients or recommend therapy. G[employer]ias drug information isan informational resource designed to [...] effective or appropriate for any given patient. [employer] does not assume any responsibility for any aspect of healthcare administered with the aid of information B[employer] provides. The information contained herein is not intended to cover all possible uses, directions, precautions, warnings, drug interactions, allergic reactions, or adverse effects. If you have questions about the drugs you are taking, check with your doctor, nurse or pharmacist. Copyright 4966-9911 [employer]. Version: 16.. Revision Date: 06/10/2023. Education Materials [...] you feel better and your symptoms ease. 7094-9348 [employer] [address] [place] [address]. All rights reserved. This information is not intended as a substitute for professional medical care. Always follow yourhealthcare professional's instructions. Additional Information VACCINATE! IT SAVES LIVES! Members of the community who have not yet received the COVID-19 vaccine and would like to receive it can visit one of [facility] vaccine clinics. There are many vaccine clinic locations within the [facility]. For locations and available times, please visit www.gettheshot.coronavirus.[place].gov/. It is important to note that some COVID mobile vaccine clinics are held outdoors and may be canceled in rainy or stormy conditions. To learn more about pediatric vaccinations (ages 5-11), we invite you to visit the [facility] webpage. https://www.[facility].org/pages/8617-Wzrtq-Ehqubyxgtvm-Gvkjgfcyln-Depnq-Dqx stions.htmlTo learn more about the COVID-19 vaccine, we invite you to visit the CDC website for a list of frequently asked questions. https://www.cdc.gov/coronavirus/2019-ncov/vaccines/faq.html [facility] Patient Portal Access Instructions: Stay connected with your healthcare team and access your personal medical information anytime with the [facility] Patient Portal. If you would like a full copy of your medical records please contact the [facility] Medical Records Department Wednesday through Wednesday between 8a.m. and 4:30p.m. Please follow the directions below to access the portal: 1.Access the email account you provided upon registration to the [facility].2.Look for an invitation email from [facility].3.Open the email and access the invitation link: Accept Invitation to [facility] to Photos4.Fill in the required orona to create your account. Sign into www.Tetris Online with your username and password that you [...] you will allow to register on the [facility] Patient Portal for access to your information. You can also access the [facility] Patient Portal on the [employer] Mobile. Simply click on Health Records under Tin Can IndustriesData and then click on the Konoz logo. HOW TO SAFELY DISPOSE OF PRESCRIPTION [...] Call your local pharmacy or go to http://bit.Pick a Student/3R9Jt7s to find one close to you.3.Make use of household items: Use cat litter or old coffee grounds to dispose medications if other options arenot available. Mix your drugs with these household products, seal them in an airtight container andthrow it into the garbage. Call [facility]: [phone] to be sure your drugs can be [...] aware that I should contact my doctor. Patient/Carboy Filler Signature: Date/Time: Relationship to Patient: Witness Name/Signature: Date/Time: [facility]06-25-2024 Telephone encounter Note* Telephone Encounter - Emelia Sanchez - 05/02/2024 12:22 PM EDT Patient has called back and scheduled a follow up with Austin on 05/16/2024+20 minute follow up. Ifthis is to be a yearly physical please advise so we can call back to reschedule to 40 minutes. Patient advised he sees an granite setter across the street at [facility]. [facility] Miscellaneous Notes* Telephone Encounter - Emelia Sanchez - 05/02/2024 12:22 PM EDT Patient has called back and scheduled a follow up with Austin on 05/16/2024+20 minute follow up. Ifthis is to be a yearly physical please advise so we can call back to reschedule to 40 minutes. Patient advised he sees an granite setter across the [facility] at [facility]. * Telephone Encounter - Martina Still [...] 01, 2024 9:33 AM documented in this encounterSouthwest General Health Center06-25-2024 Telephone encounter Note * Telephone Encounter - Martina Still OCCA - 05/02/2024 8:45 AM EDT TC no answer. Left VM to return call. BO Ny [facility]06-24-[facility] Telephone encounter Note* Telephone Encounter - Lupillo [...] 30 days. Authorizing Provider: LUPILLO THAYER MD [facility]06-24-[facility] Telephone encounter Note* Telephone Encounter - Lupillo [...] mouth four times daily. Lupillo Thayer MD [facility]06-24-2024 Miscellaneous Notes* Telephone Encounter - Lupillo Thayer [...] hospital visit from 01/2024. documented in this encounterSouthwest General Health Center06-24-2024 Telephone encounter Note * Telephone Encounter - Morelia Daniel MA - 05/01/2024 4:23 PM EDT Sent a [employer] chart message early today to the patient. I did note in the most recent endocrinology record. Metoclopramide 5 mg every 6 hours Protonix 40 mg BID. Morelia Daniel MA [facility]06-24-2024 Telephone encounter Note* Telephone Encounter - Lupillo Thayer MD - 05/01/2024 4:16 PM EDT Let patient know since we did not proscribe this meds and Austin says to continue them I need thestrength he is on and how often he takes them. [facility]06-24-[facility] Telephone encounter Note* Telephone Encounter - Morelia Daniel MA - 05/01/2024 12:39 PM EDT I reviewed the chart and it looks like patient was put on this medication from an hospital visit from 01/2024. [facility]06-[facility] Telephone encounter Note* Telephone Encounter - Martina [...] BO Ny May 01, 2024 9:33 AM [facility]05-22-2024 Miscellaneous Notes* Telephone Encounter - Camila Beckham MA - 03/29/2024 11:18 AM EDT Left message for patient to call back and speak to triange Please verify if patient is doing one or 2 insulin injection? Med list on file shows one but dispense report shows lantus and lispro? Pen needles pended for 4 injections a day Camila Beckham MA documented in this encounterSouthwest General Health Center05-22-2024 Telephone encounter Note * Telephone Encounter - Camila Beckham MA - 03/29/2024 11:18 AM EDT Left message for patient to call back and speak to triange Please verify if patient is doing one or 2 insulin injection? Med list on file shows one but dispense report shows lantus and lispro? 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 documented in this encounterSouthwest General Health Center04-02-2024 Instructions* Patient Instructions* Eder Li - 02/08/2024 [...] (or decreased sensation in your feet) a irrigation installation specialist should always cut your toenails. Be Careful [...] Go to your health care provider or irrigation installation specialist to treat these conditions. Powerstep Original Full length. Can purchase at [employer] and boots,shoes and more here in [employer], [employer] in [place] or [place]. Also can find in [employer] in [facility]. Powersteps can also be purchased online, starting [...] everything fits well together documented in this encounterSouthwest General Health Center03-22-2024 Progress note Author Shantell Alcaraz [facility] January 28, 2024 3:40pm Note Date/Time January 28, 2024 1:2 1pm [facility] Medical Records Department [address] [place] [address] Progress Note 01/28/24 1320 MR#: [id number] Acct: [id number] Name: WESTON GAMEZ Rep #:[id number] : 1985 38 From: Shantell Alcaraz MD PCP: Austin Camarena WEATHER STRIP INSTALLER-C Status:ADM IN [facility] Subjective Subjective Patient seen and examined. He [...] 450 900 / 900 Balance 2089 / 2090 -90 / -90 Lab / Micro Data [...] prophylaxis: Lovenox Charges/Coding Visit Charges Inpatient E&M: 27180 Subs Hosp L2 01/28/24 1540 <Electronically signed by Shantell Alcaraz MD> Shantell Alcaraz MD Cosigner Signature (if applicable): CC: ~ Signed [facility] Work Phone: 1(839) 729-312303-22-2024 Procedure [facility] 01-28-2024 Procedure [facility]03-22-2024 Discharge summary Author Connie Hermosillo [facility] January 27, 2024 10:49pm Note Date/Time January 27, 2024 12: 06pm [facility] Medical Records Department [address] [place] [address] Emergency Department Summary 01/27/24 MR#: [id number] Acct: [id number] Name: WESTON GAMEZ Rep #:[id number] : 1985 38 From: Connie Hermosillo MD PCP: ONEL GellerC Status:ADM IN Location: [facility] [id number] HPI <RIGOBERTO Ward - Last Filed: 01/27/24 [...] in a week. He then went to [place] [facility] yesterday where they performed another CT [...] <RIGOBERTO Ward - Last Filed: 01/27/24 15:29> [facility] Medical History Bipolar 1 disorder Diabetes mellitus [...] Oxygen Delivery Method Room Air Room Air [facility] <RIGOBERTO Ward - Last Filed: 01/27/24 15:29> [facility] Narrative Medical decision making narrative: Patient presenting [...] % (Auto) 65.5 Lymph % (Auto) 26.1 [place] % (Auto) 7.0 Eos % (Auto) 0.5 [...] Clarity Clear Urine pH 5.0 Ur Specific Porter 1.025 Urine Protein 30 H Urine Glucose (UA) 1000 H Urine Ketones 150 A* Urine Occult Blood 50 H Urine Nitrite Negative Urine Bilirubin Negative Urine Urobilinogen Normal Ur Leukocyte Esterase Negative Urine RBC 5-10 SEEN Urine WBC 0 SEEN Ur Squamous Epith Cells 0 SEEN Urine Bacteria 0 SEEN Urine Mucus 0 SEEN <Dr. Connie Hermosillo MD - Last Filed: 01/27/24 15:19> [facility] Lab Data Labs: Laboratory Results - last 24 hr 01/27/24 12:15 WBC 12.9 H RBC 5.32 Hgb 14.9 Hct 44.8 MCV 84.2 MCH 28.0 MCHC 33.3 RDW Std Deviation 40.4 RDW Coeff of [place] 13.2 Plt Count 375 MPV 9.8 Immature Gran % (Auto) 0.400 Neut % (Auto) 65.5 Lymph % (Auto) 26.1 [place] % (Auto) 7.0 Eos % (Auto) 0.5 [...] Clarity Clear Urine pH 5.0 Ur Specific Porter 1.025 Urine Protein 30 H Urine Glucose [...] he was inadvertently discharged. Patient went to [place] ER yesterday where he got IVfluids and [...] sign of infection. Patient CT scan from [place] 2 days ago as well as [place] yesterday is reviewed. Right upper quadrant ultrasound [...] Care Provider: Austin Camarena Referrals: Austin Camarena, LARISSA-Joanna [Primary Care Provider] - Disposition Disposition: Acute Care Hospital [facility] What to do if you have Problems For any increased pain, shortness of breath, bleeding, nausea or vomiting, chestpain, or any unexpected problems, contact your Primary Care Provider. Call [facility] ([phone]) or report to the closest Emergency Room. Call 911 if necessary. 01/27/24 2249 <Electronically signed by Connie Hermosillo MD> Cosigner Signature (if applicable): 01/27/24 1529 <Electronically signed by Krystina FRANKLIN> CC: WEATHER STRIP INSTALLER-C Austin Camarena ~ Signed [facility] Work Phone: 1(434) 913-195803-21-2024 History and physical note Author Troy Wagoner [facility] January 27, 2024 4:13pm Note Date/Time January 27, 2024 3:0 3pm [facility] Medical Records Department [address] [place] [id number] H&P Exam - Hospitalist 01/27/24 1503 MR#: [id number] Acct: [id number] Name: WESTON GAMEZ Rep #:[id number] : 1985 38 From: Troy gonsalez DO PCP: JIE Geller Status:ADM IN Location: [facility] [id number] HPI - General General Date of Admission: 01/27/24 Date of Service: 01/27/24 Chief Complaint: Intractable nausea and vomiting HPI Narrative WESTON GAMEZ, is a 38 M who presented to [facility] ED on 01/27/2024 with intractable nausea [...] alcohol use. Denies any other drug use. [facility] Medical History Bipolar 1 disorder Diabetes mellitus [...] % (Auto) 65.5, Lymph % (Auto) 26.1, [place]% (Auto) 7.0, Eos % (Auto) 0.5, Baso [...] Clarity Clear, Urine pH 5.0, Ur Specific Porter 1.025, Urine Protein 30 H, Urine Glucose [...] is a 38-year-old male who presented to [facility] ED on 01/27/2024 with intractable nausea [...] dose. ? Admit under inpatient status to [facility]. Will start Lantus 15 units at night and sliding-scale insulin with meals for now, adjust as needed. Follow-up BMP tonight and again tomorrow morning. Will hold on further IV fluids for now, encouraged p.o. intake. Will start gabapentin 100 mg 3 times daily for neuropathy. 4-hour gastric emptying study ordered. Nutrition and geographic information systems director consulted. Depending on gastric emptying study results, [...] 55 minutes. Charges/Coding Visit Charges Inpatient E&M: 54449 Init Hosp L2 01/27/24 1613 <Electronically signed by Troy Wagoner DO> Cosigner Signature (if applicable): CC: JIE Camarena; Dr. Troy Wagoner DO~ Signed [facility] Work Phone: 1(279) 748-981803-21-2024 History of Present illness Narrative* Austin Camarena APRN.CAD ADMINISTRATOR - 01/27/2024 11:26 AM EDT Chief Complaint Patient presents with: ER F/U HPI Weston Gamez is a 38 year old male who presents here today for Above Complaints.. Patient presents for ER follow up. Patient seen in [facility] ER 01/24 and [place] [facility] 01/25. Patient was noted to have prominent inguinal lymph nodes on CT, glucose and ketones in urine at [facility] as well as bladder distension and HTN. [...] patient presentation, patient sent to ER. Called [facility] ER and discussed case with Dr. Hermosillo. Austin Camarena APRN.CAD ADMINISTRATOR documented in this [facility] Hospital Discharge instructions Patient Education 01/26/2024 15:10:19 [...] and water are not available, use alcohol-based blocking machine operator second to keep from spreading the infection to [...] Yellow color of the eyes or skin 7601-[address] [employer] [place] [address]. All rights reserved. This information is not [...] colored urine Decreased or absent urine output 4198-4907 [employer] [address] [place] [address]147. All rights reserved. This information is not [...] blood pressure monitors at most pharmacies. The [place] [employer] recommends the following guidelines for [...] face You have problems speaking or seeing 8365-[address] [employer] [place] [address]. All rights reserved. This information is not [...] keep having episodes of high blood sugar. 2108-2350 [employer] [address] [place] [address]. All rights reserved. This information is not intended as a substitute for professional medical care. Always follow yourcity hospitalcare professional's instructions. 01/26/2024 15:10:05 Dehydration (Adult) Dehydration [...] of 100.4 F (38 C) or higher 6257-3824 [employer] [address] [place] [address]. All rights reserved. This information is not [...] foods again, start with small amounts of rzxj-ok-otkmzj, low- fat foods. These include apple sauce, [...] increase stomach acid. Don't use aspirin or fyfi-nos-bvvedfj pain and fever medicines, if possible. This includes nonsteroidal anti-inflammatory drugs (NSAIDs). Lose excess weight. Finish eating at least 2 hours before you go to bed or lie down. Raise the head of your bed. 3103-0715 [employer] [address] [place] [address], [place] [address]. All rights reserved. This information is not [...] for protein With:NONE PHYSICIAN Address:Unknown When:2-4 days [facility] 03-20-2024 Note Discharge Instructions Thank you for allowing [facility] to assist you with your healthcare needs. [...] and water are not available, use alcohol-based blocking machine operator second to keep from spreading the infection to [...] Yellow color of the eyes or skin 4247-3117 [employer] [address] [place] [address]. All rights reserved. This information is not [...] colored urine Decreased or absent urine output 6040-6253 [employer] [address] [place] [address], [place] [address]. All rights reserved. This information is not [...] blood pressure monitors at most pharmacies. The [place] [employer] recommends the following guidelines for [...] face You have problems speaking or seeing 8270-7635 [employer] [address] [place] [address], [place] [address]. All rights reserved. This information is not [...] keep having episodes of high blood sugar. 4672-2616 [employer] [address] [place] [address], [place] [address]. All rights reserved. This information is not [...] of 100.4 F (38 C) or higher 9347-4219 [employer] [address] [place] [address]. All rights reserved. This information is not [...] foods again, start with small amounts of hnbn-gn-emlotj, low- fat foods. These include apple sauce, [...] increase stomach acid. Don't use aspirin or sjel-vpp-omubalq pain and fever medicines, if possible. This includes nonsteroidal anti-inflammatory drugs (NSAIDs). Lose excess weight. Finish eating at least 2 hours before you go to bed or lie down. Raise the head of your bed. 8773-0931 [employer] [address] [place] [address]. All rights reserved. This information is not intended as a substitute for professional medical care. Always follow yourhealthcare professional's instructions. Additional Information VACCINATE! IT SAVES LIVES! Members of the community who have not yet received the COVID-19 vaccine and would like to receive it can visit one of [facility] vaccine clinics. There are many vaccine clinic locations within the [facility]. For locations and available times, please visit www.gettheshot.coronavirus.[place].gov/. It is important to note that some COVID mobile vaccine clinics are held outdoors and may be canceled in rainy or stormy conditions. To learn more about pediatric vaccinations (ages 5-11), we invite you to visit the [facility] webpage. https://www.[facility].org/pages/4418-Qavoj-Usjzbnkyyhu-Uruwbadogw-Wxadv-Eix stions.htmlTo learn more about the COVID-19 vaccine, we invite you to visit the CDC website for a list of frequently asked questions. https://www.cdc.gov/coronavirus/2019-ncov/vaccines/faq.html [facility] Patient Portal Access Instructions: Stay connected with your healthcare team and access your personal medical information anytime with the [facility] Patient Portal. If you would like a full copy of your medical records please contact the [facility] Medical Records Department Wednesday through Wednesday between 8a.m. and 4:30p.m. Please follow the directions below to access the portal: 1.Access the email account you provided upon registration to the [facility].2.Look for an invitation email from [facility].3.Open the email and access the invitation link: Accept Invitation to [facility].Fill in the required orona to create your account. Sign into www.[employer] with your username and password that you [...] you will allow to register on the [facility] Patient Portal for access to your information. You can also access the [facility] Patient Portal on the [employer] tita. Simply click on Health Records under [employer] and then click on the [employer] logo. [...] Call your local pharmacy or go to http://bit.Pick a Student/1G2Aa5y to find one close to you.3.Make use of household items: Use cat litter or old coffee grounds to dispose medications if other options arenot available. Mix your drugs with these household products, seal them in an airtight container andthrow it into the garbage. Call [facility]: [phone] to be sure your drugs can be [...] aware that I should contact my doctor. Patient/Carboy Filler Signature: Date/Time: Relationship to Patient: Witness Name/Signature: Date/Time: [facility]-20-2024 Note ORIGINAL EXAMINATION: CT OF THE ABDOMEN [...] Date: 01/26/2024 1:11:46 PM [facility]ing Provider[facility] Miscellaneous Notes* Telephone Encounter - Autumn Boland RN - 01/26/2024 11:15 AM EDT Protocol recommends go to ER now. Pts is going to drive him and is going to bring him to [place] ER instead of [facility]. Care plan reviewed with patient. Patient voices [...] down for 2 days. The went to [facility] ER yesterday and he was give 1 [...] causing his vomiting. He was told at [facility] ER it could be because of his [...] recent headinjury. 10. : N/A Protocols used: Ebixkuwl-WYUOZ-NX documented in this encounterSouthwest [facility] Center03-19-2024 Discharge summary Author Ryan Mccracken [facility] January 25, 2024 11:03pm Note Date/Time January 25, 2024 8:2 2pm [facility] Medical Records Department [address] [place] [address] Emergency Department Summary 01/25/24 MR#: [id number] Acct: [id number] Name: WESTON GAMEZ Rep #:[id number] : 1985 38 From: Ryan Mccracken MD [...] (Auto) 71.6 H Lymph % (Auto) 21.7 [place] % (Auto) 5.3 Eos % (Auto) 0.4 [...] Color Urine Clarity Urine pH Ur Specific Porter Urine Protein Urine Glucose (UA) Urine Ketones [...] (Auto) Neut % (Auto) Lymph % (Auto) [place] % (Auto) Eos % (Auto) Baso % [...] Color Urine Clarity Urine pH Ur Specific Porter Urine Protein Urine Glucose (UA) Urine Ketones [...] (Auto) Neut % (Auto) Lymph % (Auto) [place] % (Auto) Eos % (Auto) Baso % [...] Clarity Clear Urine pH 7.0 Ur Specific Porter 1.010 Urine Protein 30 H Urine Glucose [...] Hollins was made aware for admission to [facility].) and Plate Inspector (Case discussed with Dr. Argueta. Is made [...] Austin Camarena NP-C [Primary Care Provider] - 1-2 Weeks Disposition Disposition: Home, Self Care What to do if you have Problems For any increased pain, shortness of breath, bleeding, nausea or vomiting, chestpain, or any unexpected problems, contact your Primary Care Provider. Call [facility] ([phone]) or report to the closest Emergency Room. Call 911 if necessary. 01/25/242302 <Electronically signed by Ryan Mccracken MD> Cosigner Signature (if applicable): CC: JIE Camarena ~ Signed [facility] Work Phone: 1(281) 313-634602-20-2024 History of Present illness Narrative* Austin Camarena APRN.CAD ADMINISTRATOR - 12/28/2023 3:24 PM EST Chief Complaint Patient presents with: Follow Up HPI Weston Gamez is a 38 year old male who presents here today for Above Complaints.. Patient presents for diabetes follow up. Patient was seen in October and started on metformin and glipizide. Patient initial hgb A1c 13.2. Patient has since seen geographic information systems director and ophthalmology. Stopped taking metformin about a [...] TABLET Austin Camarena APRN.CNP documented in this encounterSouthwest [facility] Center02-13-2024 Miscellaneous Notes* Telephone Encounter - Victoria Flannery [...] you. Victoria Flannery Ma. documented in this encounterSouthwest General Health Center12-15-2023 Instructions* Patient Instructions* Austin Camarena APRN.CNP - 10/22/2023 11:17 AM EST -Use glucometer for back up for descom if BS reading less than 80 or greater than 400. documented in this encounterSouthwest General Health Center12-15-2023 History of Present illness Narrative* Austin Camarena [...] Retinal Exam Never done Covid-19 Vaccine(3 - season) due on 07/09/2023 Influenza Vaccine(1) due [...] STRIPS Austin Camarena APRN.CNP documented in this [facility]12-08-2023 Miscellaneous Notes* Telephone Encounter - PatelLisseth johns Cma - 10/15/2023 1:59 PM EST Pt active on [employer]- message sent Lisseth Maria Teresa Maria Esther * Telephone Encounter - Austin Camarena APRN.CNP - 10/15/2023 1:41 PM EST Please let patient know their xray is normal. documented in this [facility]12-08-2023 History of Present illness Narrative* Jaz [...] 15, 2023 12:16 PM documented in this [facility]12-08-2023 History of Present illness Narrative* Austin Camarean APRN.CNP - 10/15/2023 11:14 AM EST Images from the original note were not included. Chief Complaint Patient presents with: [facility] Cough: X 1 year HPI Weston Gamez is a 38 year old male who presents here today for Above Complaints.. Patient [facility] to [facility]. Patient reports cough x1 year and is [...] recommended psychiatry referral. - Patient was counseled srcy-gf-mcld by myself (the marianneing provider) for the following immunizations and vaccine [...] L84 - CONSULT TO PODIATRY Austin Camarena APRN.CAD ADMINISTRATOR documented in this encounterPrattsburgh ClinicDischarge summary Author Shantell Alcaraz [facility] January 29, 2024 1:46pm Note Date/Time January 29, 2024 1:4 7pm [facility] Medical Records Department [address] [place] [address] Instructions for Home/Discharge Instructions 01/29/24 1346 MR#: [id number] Acct: [id number] Name: WESTON GAMEZ Seth Rep #:[id number] : 1985 38 From: Shantell Alcaraz MD PCP: Austin Camarena WEATHER STRIP INSTALLER-C Status:ADM IN Discharge Instructions Diet Discharge Diet: [...] to establish care for diabetes) Austin Camarena, WEATHER STRIP INSTALLER-C [Primary Care Provider] - Within 2 Weeks Disposition Disposition (needs filled in before D/C Order can be placed): Home, Self Care 01/29/24 1346<Electronically signed by Shantell Alcaraz MD>Shantell Alcaraz MD CC: WEATHER STRIP INSTALLEROskar Camarena; Dr. Troy Wagoner, DO ~ Signed [facility] Work Phone: Discharge summary Author Shantell Alcaraz [facility] January 29, 2024 3:19pm Note Date/Time January 29, 2024 1:5 3pm [facility] Medical Records Department [address] [place] [address] Discharge Summary 01/29/24 1353 MR#: [id number] Acct: [id number] Name: WESTON GAMEZ Rep #:[id number] : 1985 38 From: Shantell Alcaraz MD PCP: JIE Geller Status:ADM IN Location: [facility] [id number] Providers Date of Admission: 01/27/24 Date of [...] RDW Std Deviation 40.7, RDW Coeff of Juaan 13.2, Plt Count 341, MPV 9.2, Immature Gran % (Auto) 0.300, Neut % (Auto) 43.8 L, Lymph % (Auto) 41.8 H, [place] % (Auto) 11.8 H, Eos % (Auto) [...] PO DAILY Referrals / Follow Up: Mushtaq Heranndez MD [Med Staff - Courtesy Staff] - Within 2 Weeks (see to establish care for diabetes) Austin Camarena, WEATHER STRIP INSTALLER-C [Primary Care Provider] - Within 2 Weeks Disposition Disposition (needs filled in before D/C Order can be placed): Home, Self Care Charges/Coding Visit Charges Inpatient E&M: 07128 Disch Hosp >30min 01/29/24 1519 <Electronically signed by Shantell Alcaraz MD> Cosigner Signature (if applicable): 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 Shantell Alcaraz MD~ Signed [facility] Work Phone: Evaluation + Plan note No data available for this section [facility] Evaluation note* Diagnosis Screening for diabetes mellitus- [...] Corns and callosities documented in this encounter [facility] note* Diagnosis Type 2 diabetes mellitus without complication, without long-term current use of insulin ([facility])- Primary Encounter for smoking cessation counseling Counseling on substance use and abuse documented in this encounter [facility] note* Diagnosis Type 2 diabetes mellitus without complication, without long-term current use of insulin ([facility]) documented in this encounter [facility] note* Diagnosis Type 2 diabetes mellitus without complication, without long-term current use of insulin ([facility])- Primary Encounter for smoking cessation counseling Counseling on substance use and abuse documented in this encounter [facility] noteNo assessment information availableWMiami Valley Hospital Work Phone: evaluation note* Diagnosis Onset Date Resolution Status Abdominal pain, acute, generalized acute Acute dehydration acute DKA (diabetic ketoacidoses) acute Nausea & vomiting acute Type 2 diabetes mellitus with hyperglycemia acute Hypertension [facility] Work Phone: evaluation note* Diagnosis Type 2 diabetes mellitus without complication, without long-term current use of insulin ([facility])- Primary Nausea and vomiting, unspecified vomiting type documented in this encounter [facility] note* Diagnosis 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, managed as type 2 (HCC) Type II or unspecified type diabetes mellitus without mention of complication, not stated as uncontrolled Diminished pulses in lower extremity Other symptoms involving cardiovascular system documented in this encounter [facility] note* Diagnosis Type 2 diabetes mellitus with peripheral neuropathy (HCC)- Primary documented in this encounter [facility] note* Diagnosis Type 2 diabetes mellitus with peripheral neuropathy (HCC) documented in this encounter [facility] note* Diagnosis Type 2 diabetes mellitus with peripheral neuropathy (HCC)- Primary Nausea and vomiting, unspecified vomiting type Diabetes 1.5, managed as type 2 (HCC) Type II or unspecified type diabetes mellitus without mention of complication, not stated as uncontrolled Elevated LDL cholesterol level Pure hypercholesterolemia documented in this encounter [facility]* Diagnosis Chronic cough Cough documented in this encounter [facility]* Diagnosis Nausea and vomiting, unspecified vomiting type- Primary Type 2 diabetes mellitus with peripheral neuropathy (HCC) Encounter for immunization Need for other specified prophylactic vaccination against single bacterial disease Hematemesis with nausea Acute gastric ulcer without hemorrhage or perforation Acute gastric ulcer without mention of hemorrhage, perforation, or obstruction documented in this encounter [facility] note* Diagnosis Procedure not carried out- Primary Procedure not carried out for other reasons documented in this encounter [facility]* Diagnosis Type 2 diabetes mellitus without retinopathy (HCC)- Primary Type II or unspecified type diabetes mellitus without mention of complication, not stated as uncontrolled Myopia, 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 [facility]* Diagnosis Diabetes 1.5, managed as type 2 (HCC) Type II or unspecified type diabetes mellitus without mention of complication, not stated as uncontrolled documented in this encounter [facility]* Diagnosis ADHD (attention deficit hyperactivity disorder), predominantly hyperactive impulsive type- Primary Attention deficit disorder with hyperactivity documented in this encounter [facility]* Diagnosis ADHD (attention deficit hyperactivity disorder), predominantly hyperactive impulsive type- Primary Attention deficit disorder with hyperactivity Primary hypertension Unspecified essential hypertension documented in this encounter [facility]* Diagnosis Medication management- Primary Encounter for long-term (current) use of other medications ADHD (attention deficit hyperactivity disorder), predominantly hyperactive impulsive type Attention deficit disorder with hyperactivity documented in this encounter [facility]* Diagnosis Type 2 diabetes mellitus without retinopathy (HCC)- Primary Type II or unspecified type diabetes mellitus without mention of complication, not stated as uncontrolled Myopia, 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 [facility]* Diagnosis Medication management- Primary Encounter for long-term (current) use of other medications documented in this encounter [facility]* Diagnosis Elevated LDL cholesterol level Pure hypercholesterolemia Type 2 diabetes mellitus with peripheral neuropathy (HCC) documented in this encounter [facility]* Diagnosis ADHD (attention deficit hyperactivity disorder), predominantly hyperactive impulsive type- Primary Attention deficit disorder with hyperactivity documented in this encounter [facility]* Diagnosis Diabetes 1.5, managed as type 2 (HCC)- Primary Type II or unspecified type diabetes mellitus without mention of complication, not stated as uncontrolled [facility] encounter [facility]* Diagnosis Primary hypertension Unspecified essential hypertension Elevated LDL cholesterol level Pure hypercholesterolemia documented [facility] this encounter [facility]* Diagnosis Vitamin D deficiency- Primary Unspecified vitamin D deficiency documented [facility] encounter [facility]* Diagnosis Type 2 diabetes mellitus with peripheral neuropathy (HCC) [facility] encounter [facility]* Diagnosis Dental infection- Primary Acute apical [...] stated as uncontrolled [facility] encounter [facility]* Diagnosis Hyperkalemia- Primary Hyperpotassemia documented in this encounter [facility] CenterEvaluation note* Diagnosis Diabetes 1.5, managed as type 2 (HCC) Type II or unspecified type diabetes mellitus without mention of complication, not stated as uncontrolled documented in this encounter [facility] ClinicHistory and physical note Author Troy Wagoner [facility] January 27, 2024 4:13pm Note Date/Time January 27, 2024 3:0 3pm [facility] Medical Records Department [address] [place] [id number] H&P Exam - Hospitalist 01/27/24 1503 MR#: [id number] Acct: [id number] Name: WESTON GAMEZ Rep #:[id number] : 1985 38 From: Troy gonsalez DO PCP: JIE Geller Status:ADM IN Location: [facility] [place] [id number] HPI - General General Date of Admission: 01/27/24 Date of Service: 01/27/24 Chief Complaint: Intractable nausea and vomiting HPI Narrative WESTON GAMEZ, is a 38 M who presented to [facility] ED on 01/27/2024 with intractable nausea [...] alcohol use. Denies any other drug use. [facility] Medical History Bipolar 1 disorder Diabetes mellitus [...] % (Auto) 65.5, Lymph % (Auto) 26.1, [place]% (Auto) 7.0, Eos % (Auto) 0.5, Baso [...] Clarity Clear, Urine pH 5.0, Ur Specific Porter 1.025, Urine Protein 30 H, Urine Glucose [...] is a 38-year-old male who presented to [facility] ED on 01/27/2024 with intractable nausea [...] dose. ? Admit under inpatient status to [facility]. Will start Lantus 15 units at night and sliding-scale insulin with meals for now, adjust as needed. Follow-up BMP tonight and again tomorrow morning. Will hold on further IV fluids for now, encouraged p.o. intake. Will start gabapentin 100 mg 3 times daily for neuropathy. 4-hour gastric emptying study ordered. Nutrition and geographic information systems director consulted. Depending on gastric emptying study results, [...] 55 minutes. Charges/Coding Visit Charges Inpatient E&M: 26706 Init Hosp L2 01/27/24 1615 <Electronically signed by Troy Wagoner DO> Cosigner Signature (if applicable): CC: JIE Camarena; Dr. Troy Wagoner DO~ Signed [facility] Work Phone: Hospital Discharge instructions Additional Instructions Continue to not smoke cigarettes. Follow-up with a dentist as soon as possible. Take the antibiotics as directed. Return with difficulty swallowing or breathing, sustained high fever, new or worsening symptoms.[facility] Work Phone: Hospital Discharge instructionsAdditional Instructions Please continue all of your home medications as directed by your doctor and return to the ER should you have any further concernsWMiami Valley Hospital Work Phone: Hospital Discharge instructionsAdditional Instructions [...] if your symptoms worsen or new symptoms develop.[facility] Work Phone: Reason for referral (narrative)* Outpatient Procedure (Routine) - Authorized Specialty Diagnoses / Procedures Referred By Contac t Referred To Contact [facility] Diagnoses Diabetes 1.5, managed as type 2 (HCC) Diminished pulses in lower extremity Procedures PVR ANK PRESS [facility] NON-INVAS PHYSIOLOGIC STD EXTREMITY ART 2 LEVEL Eder [facility] [address] [place] [address] [facility] [address] [place] [address] Referral ID Status Reason Start Date Expiration Date Visits Requested Visits Authorized [id number] Authorized Auto-Generat ed Referral 02/08/2024 02/07/2025 1 1 [facility] for referral (narrative)No reason for referral information availableWMiami Valley Hospital Work Phone: Reason for Referral Specialty Diagnoses / Procedures Referred By Contac t Referred To Contact Podiatry Diagnoses Diabetes 1.5, managed as type 2 (HCC) Callus of foot Procedures CONSULT TO PODIATRY OFFICE/OUTPATIENT NEW HIGH MDM 60-74 MINUTES Austin Camarena, RN ASSESSMENT.CAD ADMINISTRATOR [address] [place] [address] Referral ID Status Reason Start Date Expiration Date Visits Requested Visits Authorized [id number] Authorized PCP Requested Referral 10/15/2023 10/14/2024 1 1 Specialty Diagnoses / Procedures Referred By Contac t Referred To Contact Ophthalmology Diagnoses Diabetes 1.5, managed as type 2 (HCC) Procedures CONSULT TO OPHTHALMOLOGY OFFICE/OUTPATIENT [facility] 60-74 MINUTES Austin Camarena, CINTHIA.CAD ADMINISTRATOR [address] [place] [id number] Referral ID Status Reason Start Date Expiration Date Visits Requested Visits Authorized [id number] Authorized PCP Requested Referral 10/15/2023 10/14/2024 1 1 Specialty Diagnoses / Procedures Referred By Contac t Referred To Contact Diagnoses Bipolar affective disorder, remission status unspecified (HCC) Procedures CONSULT TO PSYCHIATRY Austin Camarena APRN.CAD ADMINISTRATOR [address] [place] [id number] Raegan, Maria C Centeno [address] [place] [address] Referral ID Status Reason Start Date Expiration Date Visits Requested Visits Authorized [id number] Ref Not Required PCP Requested Referral 10/15/2023 10/14/2024 1 1 Specialty Diagnoses / Procedures Referred By Contac t Referred To Contact Diagnoses Type 2 diabetes mellitus without complication, without long-term current use of insulin (HCC) Procedures CONSULT TO DIABETES EDUCATION DSME/MNT MEDICAL NUTRITION ASSMT&IVNTJ INDIV EACH 15 [place] MEDICAL NUTRITION ASSMT&IVNTJ INDIV EACH 15 [place] MEDICAL NUTRITION ASSMT&IVNTJ INDIV EACH 15 [place] MEDICAL NUTRITION ASSMT&IVNTJ INDIV EACH 15 [place] Austin Camarena APRN.CAD ADMINISTRATOR [address] [place] [id number] Referral ID Status Reason Start Date Expiration Date Visits Requested Visits Authorized [id number] Authorized PCP Requested Referral 10/21/2024 1 1 Specialty Diagnoses / Procedures Referred By Contac t Referred To Contact Diagnoses Diabetes 1.5, managed as type 2 (HCC) Elevated LDL cholesterol level Procedures ENDOCRINOLOGY DIETITIAN VISIT (MNT) MEDICAL NUTRITION ASSMT&IVNTJ INDIV EACH 15 [place] MEDICAL NUTRITION ASSMT&IVNTJ INDIV EACH 15 [place] MEDICAL NUTRITION ASSMT&IVNTJ INDIV EACH 15 [place] MEDICAL NUTRITION ASSMT&IVNTJ INDIV EACH 15 [place] Austin Camarena APRN.CAD ADMINISTRATOR [address] [place] [address] Referral ID Status Reason Start Date Expiration Date Visits Requested Visits Authorized [id number] Authorized PCP Requested Referral 05/16/2024 05/16/2025 1 [...] 2024 1 1:43am Elevated alkaline phosphatase level [facility] 2024 1:02pm Elevated AST (SGOT) January 18, [...] Visit Admit Date Elevated alkaline phosphatase level [facility] 2024 1:02pm Elevated AST (SGOT) January [...] Visit Admit Date Elevated alkaline phosphatase level [facility] 2024 1:02pm Elevated AST (SGOT) January [...] Visit Admit Date Elevated alkaline phosphatase level [facility] 2024 1:02pm Elevated AST (SGOT) January [...] Chief Complaint Admit Date 3 M FU Deb 12th, 2025 1:07 pm 2 Wk FU May 03, 2025 8:44 am 6 M FU May 17, 2025 2:45 pm 1 M FU June 08, 2025 11: 24am abd pain June 12, 2025 8:1 7pm ABD PAIN June 13, 2025 4:2 4pm Advance Directives Advance Directive Response Recorded Date/ Time Living Will No January 25, 2024 9:05pm Power of Basketball Assembler No January 24 9:05pm Advance Directive Response Recorded Date/ Time Living Will No January 27, 2024 4:25pm Power of Basketball Assembler No January 26 4:25pm Advance Directive Response Recorded Date/ Time Living Will Yes May 14, 2024 3 :37pm Do you have a Healthcare Pow er of Basketball Assembler? Yes May 14, 2024 3:37pm Living Will No October 28, 3:20pm Do you have a Healthcare Pow er of Basketball Assembler? No October 28, 2024 3:20pm Living Will No February 06, 2025 5:28pm Do you have a Healthcare Pow er of Basketball Assembler? Yes February 06, 2025 5:28pm Name of Medical Power of Basketball Assembler darlene lund n February 06, 2025 5:28pm Advance Directive Response Recorded Date/ Time Living Will No February 06, 2025 5:28pm Do you have a Healthcare Power of Basketball Assembler? Yes February 06, 2025 5:28pm Name of Medical Power of Basketball Assembler darlene lund n February 06, 2025 5:28pm Advance Directive Response Recorded Date/ Time Do you have a Healthcare Power of Basketball Assembler? Yes June 12, 2025 8:27pm Advance Directive Response Recorded Date/ Time Do you have a Healthcare Power of Basketball Assembler? Yes June 12, 2025 8:27pm Do you have a Healthcare Power of Basketball Assembler? No June 13, 2025 4:50pm Summary Purpose [...] or prosecute any alcohol or drug abuse patient.[facility] CenterIn the event this information is protected by the Federal Confidentiality of Alcohol and Drug Abuse Patient Records regulations: The Federal rules restrict any use of the information to criminally investigate or prosecute any alcohol or drug abuse patient.[facility] CenterIn the event this information is protected by the Federal Confidentiality of Alcohol and Drug Abuse Patient Records regulations: The Federal rules restrict any use of the information to criminally investigate or prosecute any alcohol or drug abuse patient.[facility] CenterIn the event this information is protected by the Federal Confidentiality of Alcohol and Drug Abuse Patient Records regulations: The Federal rules restrict any use of the information to criminally investigate or prosecute any alcohol or drug abuse patient.[facility] CenterIn the event this information is protected by the Federal Confidentiality of Alcohol and Drug Abuse Patient Records regulations: The Federal rules restrict any use of the information to criminally investigate or prosecute any alcohol or drug abuse patient.[facility] the event this information is protected by the Federal Confidentiality of Alcohol and Drug Abuse Patient Records regulations: The Federal rules restrict any use of the information to criminally investigate or prosecute any alcohol or drug abuse patient.[facility] CenterIn the event this information is protected by the Federal Confidentiality of Alcohol and Drug Abuse Patient Records regulations: The Federal rules restrict any use of the information to criminally investigate or prosecute any alcohol or drug abuse patient.[facility] CenterIn the event this information is protected by the Federal Confidentiality of Alcohol and Drug Abuse Patient Records regulations: The Federal rules restrict any use of the information to criminally investigate or prosecute any alcohol or drug abuse patient.[facility]In the event this information is protected by the Federal Confidentiality of Alcohol and Drug Abuse Patient Records regulations: The Federal rules restrict any use of the information to criminally investigate or prosecute any alcohol or drug abuse patient.[facility] CenterIn the event this information is protected by the Federal Confidentiality of Alcohol and Drug Abuse Patient Records regulations: The Federal rules restrict any use of the information to criminally investigate or prosecute any alcohol or drug abuse patient.[facility] CenterIn the event this information is protected by the Federal Confidentiality of Alcohol and Drug Abuse Patient Records regulations: The Federal rules restrict any use of the information to criminally investigate or prosecute any alcohol or drug abuse patient.[facility] CenterIn the event this information is protected by the Federal Confidentiality of Alcohol and Drug Abuse Patient Records regulations: The Federal rules restrict any use of the information to criminally investigate or prosecute any alcohol or drug abuse patient.[facility] CenterIn the event this information is protected by the Federal Confidentiality of Alcohol and Drug Abuse Patient Records regulations: The Federal rules restrict any use of the information to criminally investigate or prosecute any alcohol or drug abuse patient.[facility] CenterIn the event this information is protected by the Federal Confidentiality of Alcohol and Drug Abuse Patient Records regulations: The Federal rules restrict any use of the information to criminally investigate or prosecute any alcohol or drug abuse patient.[facility] CenterIn the event this information is protected by the Federal Confidentiality of Alcohol and Drug Abuse Patient Records regulations: The Federal rules restrict any use of the information to criminally investigate or prosecute any alcohol or drug abuse patient.[facility] CenterIn the event this information is protected by the Federal Confidentiality of Alcohol and Drug Abuse Patient Records regulations: The Federal rules restrict any use of the information to criminally investigate or prosecute any alcohol or drug abuse patient.[facility] CenterIn the event this information is protected by the Federal Confidentiality of Alcohol and Drug Abuse Patient Records regulations: The Federal rules restrict any use of the information to criminally investigate or prosecute any alcohol or drug abuse patient.[facility] CenterIn the event this information is protected by the Federal Confidentiality of Alcohol and Drug Abuse Patient Records regulations: The Federal rules restrict any use of the information to criminally investigate or prosecute any alcohol or drug abuse patient.[facility] CenterIn the event this information is protected by the Federal Confidentiality of Alcohol and Drug Abuse Patient Records regulations: The Federal rules restrict any use of the information to criminally investigate or prosecute any alcohol or drug abuse patient.[facility] CenterIn the event this information is protected by the Federal Confidentiality of Alcohol and Drug Abuse Patient Records regulations: The Federal rules restrict any use of the information to criminally investigate or prosecute any alcohol or drug abuse patient.[facility] CenterIn the event this information is protected by the Federal Confidentiality of Alcohol and Drug Abuse Patient Records regulations: The Federal rules restrict any use of the information to criminally investigate or prosecute any alcohol or drug abuse patient.[facility] CenterIn the event this information is protected by the Federal Confidentiality of Alcohol and Drug Abuse Patient Records regulations: The Federal rules restrict any use of the information to criminally investigate or prosecute any alcohol or drug abuse patient.[facility] CenterIn the event this information is protected by the Federal Confidentiality of Alcohol and Drug Abuse Patient Records regulations: The Federal rules restrict any use of the information to criminally investigate or prosecute any alcohol or drug abuse patient.[facility] CenterIn the event this information is protected by the Federal Confidentiality of Alcohol and Drug Abuse Patient Records regulations: The Federal rules restrict any use of the information to criminally investigate or prosecute any alcohol or drug abuse patient.[facility] CenterIn the event this information is protected by the Federal Confidentiality of Alcohol and Drug Abuse Patient Records regulations: The Federal rules restrict any use of the information to criminally investigate or prosecute any alcohol or drug abuse patient.[facility] CenterIn the event this information is protected by the Federal Confidentiality of Alcohol and Drug Abuse Patient Records regulations: The Federal rules restrict any use of the information to criminally investigate or prosecute any alcohol or drug abuse patient.[facility] CenterIn the event this information is protected by the Federal Confidentiality of Alcohol and Drug Abuse Patient Records regulations: The Federal rules restrict any use of the information to criminally investigate or prosecute any alcohol or drug abuse patient.[facility] CenterIn the event this information is protected by the Federal Confidentiality of Alcohol and Drug Abuse Patient Records regulations: The Federal rules restrict any use of the information to criminally investigate or prosecute any alcohol or drug abuse patient.[facility] CenterIn the event this information is protected by the Federal Confidentiality of Alcohol and Drug Abuse Patient Records regulations: The Federal rules restrict any use of the information to criminally investigate or prosecute any alcohol or drug abuse patient.[facility] CenterIn the event this information is protected by the Federal Confidentiality of Alcohol and Drug Abuse Patient Records regulations: The Federal rules restrict any use of the information to criminally investigate or prosecute any alcohol or drug abuse patient.[facility] CenterIn the event this information is protected by the Federal Confidentiality of Alcohol and Drug Abuse Patient Records regulations: The Federal rules restrict any use of the information to criminally investigate or prosecute any alcohol or drug abuse patient.[facility] CenterIn the event this information is protected by the Federal Confidentiality of Alcohol and Drug Abuse Patient Records regulations: The Federal rules restrict any use of the information to criminally investigate or prosecute any alcohol or drug abuse patient.[facility] CenterIn the event this information is protected by the Federal Confidentiality of Alcohol and Drug Abuse Patient Records regulations: The Federal rules restrict any use of the information to criminally investigate or prosecute any alcohol or drug abuse patient.[facility] Reason for Visit (unrecogniz ed section and [...] NEW HIGH MDM 60-74 MINUTES Austin Camarena, RN ASSESSMENT.CAD ADMINISTRATOR [address] [place] [address] Referral ID Status Reason Start Date Expiration Date V isits Requested Visits Authorized [id number] Closed PCP Requested Referral 10/15/2023 10/14/2024 1 [...] Care Teams (unrecognized sec tion and content) Drug Abuse Program Coordinator Relationship Specialty Start Date End Date Austin Camarena APRN.CAD ADMINISTRATOR [address] [place] [phone] PCP - General Family Medicine 10/15/23 Drug Abuse Program Coordinator Relationship Specialty Start Date End Date Austin Camarena APRN.CAD ADMINISTRATOR [address] [place] [phone] PCP - General Family Medicine 10/15/23 Drug Abuse Program Coordinator Relationship Specialty Start Date End Date Austin Camarena APRN.CAD ADMINISTRATOR [address] [place] [address], [place] [address] PCP - General Family Medicine 10/15/23 Drug Abuse Program Coordinator Relationship Specialty Start Date End Date Austin Camarena, RN ASSESSMENT.CAD ADMINISTRATOR [address] [place] [phone] PCP - General Family Medicine 10/15/23 Drug Abuse Program Coordinator Relationship Specialty Start Date End Date Austin Camarena, RN ASSESSMENT.CAD ADMINISTRATOR [address] [place] [phone] PCP - General Family Medicine 10/15/23 Team Status: Active Member Role Status Dates No Primary Care Physician Family Provider Active Austin Camarena WEATHER STRIP INSTALLER-C Primary Care Provider Active Team Status: Inactive Member Role Status Dates Austin Camarena NP-C Primary Care Provider Active Dr. Ryan Mccracken MD Emergency Provider Active Team Status: Active Member Role Status Dates Austin Camarena NP-C Primary Care Provider Active Dr. Connie Hermosillo MD Emergency Provider Active Dr. Troy Wagoner , DO Admit Provider, Attending Provider Active Drug Abuse Program Coordinator Relationship Specialty Start Date End Date Austin Camarena, RN ASSESSMENT.CAD ADMINISTRATOR [address] [place] [address], [place] [address] PCP - General Family Medicine 10/15/23 Team Status: Active Member Role Status Dates Austin Camarena WEATHER STRIP INSTALLER-C Primary Care Provider Active Dr. Jaycob Argueta DO Attending Provider Active Team Status: Active Member Role Status Dates Austin Camarena , WEATHER STRIP INSTALLER-C Primary Care Provider Active Dr. Connie Hermosillo MD Emergency Provider Active Dr. Troy Wagoner , Admit Provider, Other Pro vider Active Dr. Shantell Alcaraz MD Attending Provider, Other Prov ider Active Team Status: Inactive Member Role Status Dates Austin Camarena WEATHER STRIP INSTALLER-C Primary Care Provider Active Dr. Connie Hermosillo MD Emergency Provider Active Dr. Troy Wagoner , Admit Provider, Other Pro vider Active Dr. Shantell Alcaraz MD Attending Provider Active Drug Abuse Program Coordinator Relationship Specialty Start Date End Date Austin Camarena, RN ASSESSMENT.CAD ADMINISTRATOR [address] [place] [id number] PCP - General Family Medicine 10/15/23 Drug Abuse Program Coordinator Relationship Specialty Start Date End Date Austin Camarena APRN.CAD ADMINISTRATOR [address] [place] [phone] PCP - General Family Medicine 10/15/23 Drug Abuse Program Coordinator Relationship Specialty Start Date End Date Austin Camarena APRN.CAD ADMINISTRATOR [address] [place] [phone] PCP - General Family Medicine 10/15/23 Drug Abuse Program Coordinator Relationship Specialty Start Date End Date Austin Camarena RN ASSESSMENT.CAD ADMINISTRATOR [address] [place] [phone] PCP - General Family Medicine 10/15/23 Drug Abuse Program Coordinator Relationship Specialty Start Date End Date Austin Camarena RN ASSESSMENT.CAD ADMINISTRATOR [address] [place] [phone] PCP - General Family Medicine 10/15/23 Drug Abuse Program Coordinator Relationship Specialty Start Date End Date Austin Camarena APRN.CAD ADMINISTRATOR [address] [place] [phone] PCP - General Family Medicine 10/15/23 Drug Abuse Program Coordinator Relationship Specialty Start Date End Date Austin Camarena APRN.CAD ADMINISTRATOR [address] [place] [phone] PCP - General Family Medicine 10/15/23 Drug Abuse Program Coordinator Relationship Specialty Start Date End Date Austin Camarena APRN.CAD ADMINISTRATOR [address] [place] [address] [phone] PCP - General Family Medicine 10/15/23 Drug Abuse Program Coordinator Relationship Specialty Start Date End Date Austin Camarena, RN ASSESSMENT.CAD ADMINISTRATOR [address] [place] [phone] PCP - General Family Medicine 10/15/23 Drug Abuse Program Coordinator Relationship Specialty Start Date End Date Austin Camarena, RN ASSESSMENT.CAD ADMINISTRATOR [address] [place] [phone] PCP - General Family Medicine 10/15/23 Drug Abuse Program Coordinator Relationship Specialty Start Date End Date Austin Camarena, RN ASSESSMENT.CAD ADMINISTRATOR [address] [place] [phone] PCP - General Family Medicine 10/15/23 Drug Abuse Program Coordinator Relationship Specialty Start Date End Date Austin Camarena, RN ASSESSMENT.CAD ADMINISTRATOR [address] [place] [phone] PCP - General Family Medicine 10/15/23 Drug Abuse Program Coordinator Relationship Specialty Start Date End Date Austin Camarena APRN.CAD ADMINISTRATOR [address] [place] [address] [phone] PCP - General Family Medicine 10/15/23 Drug Abuse Program Coordinator Relationship Specialty Start Date End Date Austin Camarena APRN.CAD ADMINISTRATOR [address] [place] [address] [phone] PCP - General Family Medicine 10/15/23 Team Status: Active Member Role Status Dates Austin Camarena WEATHER STRIP INSTALLER-C Primary Care Provider Active Team Status: Inactive Member Role Status Dates Austin Camarena WEATHER STRIP INSTALLER-C Primary Care Provider Active Start: October 28, [...] 2024 End: November 22, 2024 Austin Camarena WEATHER STRIP INSTALLER-C Primary Care Provider Active Start: November 22, 2024 End: November 22, 2024 Austin Camarena WEATHER STRIP INSTALLER-C Referring Provider Active Start: November 22, 2024 End: November 22, 2024 Team Status: Inactive Member Role Status Dates Austin Camarena WEATHER STRIP INSTALLER-C Primary Care Provider Active Start: January 18, [...] February 06, 2025 End: February 06, 2025 Drug Abuse Program Coordinator Relationship Specialty Start Date End Date Austin Camarena APRN.CAD ADMINISTRATOR [address] [place] [address] [id number] PCP - General Family Medicine 10/15/23 Team [...] Inactive Member Role Status Dates Austin Camarena WEATHER STRIP INSTALLER-C Primary Care Provider Active Start: April 19, 2025 End: April 19, 2025 Austin Camarena NP-C Referring Provider Active Start: April 19, 2025 End: April 19, 2025 JIE Baldwin Attending Provider Active Start: April 19, 2025 End: April 19, 2025 Drug Abuse Program Coordinator Relationship Specialty Start Date End Date Austin Camarena APRN.CAD ADMINISTRATOR [address] [place] [address] [id number] [facility] Medicine 10/15/23 Team Status: Inactive Member Role Status Dates Austin Camarena NP-C Primary Care Provider Active Start: May 03, 2025 End: May 03, 2025 Austin Camarena NP-C Referring Provider Active Start: May 03, 2025 End: May 03, 2025 Dr. Mushtaq Hernandez MD Attending Provider Active Sta rt: May 03, 2025 End: May 03, 2025 Team Status: Active Member Role/Relationship Status Dates Austin Camarena WEATHER STRIP INSTALLER-C Primary Care Provider Active Team Status: Inactive Member Role/Relationship Status Dates Austin Camarena WEATHER STRIP INSTALLER-C Primary Care Provider Active Start: January 18, 2025 End: January 18, 2025 Austin Camarena NP-C Referring Provider Active Start: January 18, 2025 End: January 18, 2025 JIE Baldwin Attending Provider Active Start: January 18, 2025 End: January 18, 2025 Team Status: Inactive Member Role/Relationship Status Dates Austin Camarena WEATHER STRIP INSTALLER-C Primary Care Provider Active Start: February 06, 2025 End: February 06, 2025 Ludin Sanderson MD Attending Provider Active Star t: February 06, 2025 End: February 06, 2025 Ludin Sanderson MD Emergency Provider Active Star t: February 06, 2025 End: February 06, 2025 Team Status: Inactive Member Role/Relationship Status Dates Austin Camarena WEATHER STRIP INSTALLER-C Primary Care Provider Active Start: April 19, 2025 End: April 19, 2025 Austin Camarena WEATHER STRIP INSTALLER-C Referring Provider Active Start: April 19, 2025 End: April 19, 2025 Queenie Gonzales WEATHER STRIP INSTALLER-C Attending Provider Active Start: April 19, 2025 End: April 19, 2025 Team Status: Inactive Member Role/Relationship Status Dates Austin Camarena WEATHER STRIP INSTALLER-C Primary Care Provider Active Start: May 03, 2025 End: May 03, 2025 Austin Camarena WEATHER STRIP INSTALLER-C Referring Provider Active Start: May 03, 2025 End: May 03, 2025 Dr. Mushtaq Hernandez MD Attending Provider Active Sta rt: May 03, 2025 End: May 03, 2025 Team Status: Inactive Member Role/Relationship Status Dates Austin Camarena WEATHER STRIP INSTALLER-C Primary Care Provider Active Start: May 17, 2025 End: May 17, 2025 Austin Camarena WEATHER STRIP INSTALLER-C Referring Provider Active Start: May 17, 2025 End: May 17, 2025 Dr. Jaycob Argueta DO Attending Provider Active Start: May 17, 2025 End: May 17, 2025 Team Status: Inactive Member Role/Relationship Status Dates Austin Camarena WEATHER STRIP INSTALLER-C Primary Care Provider Active Start: April 19, 2025 End: April 19, 2025 Austin Camarena WEATHER STRIP INSTALLER-C Referring Provider Active Start: April 19, 2025 End: April 19, 2025 Queenie Gonzales NP-C Attending Provider Active Start: April 19, 2025 End: April 19, 2025 Team Status: Inactive Member Role/Relationship Status Dates Austin Camarena WEATHER STRIP INSTALLER-C Primary Care Provider Active Start: May 03, 2025 End: May 03, 2025 Austin Camarena WEATHER STRIP INSTALLER-C Referring Provider Active Start: May 03, 2025 End: May 03, 2025 Dr. Mushtaq Hernandez MD Attending Provider Active Sta rt: May 03, 2025 End: May 03, 2025 Team Status: Inactive Member Role/Relationship Status Dates Austin Camarena WEATHER STRIP INSTALLER-C Primary Care Provider Active Start: May 17, 2025 End: May 17, 2025 Austin Camarena WEATHER STRIP INSTALLER-C Referring Provider Active Start: May 17, 2025 End: May 17, 2025 Dr. Jaycob Argueta , Attending Provider Active Start: May 17, 2025 End: May 17, 2025 Team Status: Inactive Member Role/Relationship Status Dates Austin Camarena WEATHER STRIP INSTALLER-C Primary Care Provider Active Start: June 08, 2025 End: June 08, 2025 Austin Camarena WEATHER STRIP INSTALLER-C Referring Provider Active Start: June 08, 2025 End: June 08, 2025 Dr. Mushtaq Hernandez MD Attending Provider Active Sta rt: June 08, 2025 End: June 08, 2025 Team Status: Inactive Member Role/Relationship Status Dates Austin Camarena WEATHER STRIP INSTALLER-C Primary Care Provider Active Start: June 12, 2025 End: June 13, 2025 Dr. August Carroll DO Emergency Provider Activ e Start: June 12, 2025 End: June 13, 2025 Team Status: Inactive Member Role/Relationship Status Dates Austin Camaerna , WEATHER STRIP INSTALLER-C Primary Care Provider Active Start: June 13, [...] section and content) DATE CREATED AUTHOR 05/15/2024 [facility] ([place]) DATE CREATED AUTHOR AUTHOR'S ORGANIZ ATION 12/22/2024 [facility] DATE CREATED AUTHOR AUTHOR'S ORGANIZ ATION 05/22/[address] [facility] DATE CREATED AUTHOR AUTHOR'S ORGANIZ ATION 06/10/2025 [facility] FOR RECORDS PERTAINING TO PATIENTS WHO ARE [...] BE BASED ON THE PRIMARY CLINICAL RECORDS. [facility] [employer] [facility]. provides no warranty or guarantee of the accuracy or completeness of information in this document.
[2025-06-14 00:30] VITALS: BP 152/93; PULSE 101; RESP 16; TEMP 36.7; O2SAT 100
[2025-06-14 00:49] LABS: Magnesium 2.1 mg/dL (1.5-2.2)
[2025-06-14 02:01] VITALS: BMI 26.7
[2025-06-14 02:02] VITALS: BP 143/93; PULSE 97; RESP 18; TEMP 36.5; O2SAT 99
[2025-06-14] MEDS: Pantoprazole Sodium 40 MG in 0.9% Normal Saline (100mL MB+) 100 ML 330 MG IV (02:46)
[2025-06-14] MEDS: 0.9% Normal Saline (1000mL) 1,000 ML 100 ML IV (02:46)
[2025-06-14 03:46] VITALS: BMI 26.7
[2025-06-14] MEDS: Sodium Phosphate/Na Biphos 21 MMOL in 0.9% Normal Saline (250mL Bag) 250 ML 84 MMOL IV (05:27)
[2025-06-14 07:17] LABS: Hematocrit 37.4 % (40-54); Hemoglobin 12.3 g/dL (13.0-16.5); Immature Granulocytes Count 0.030 X10^3/uL (0.0-0.0); Mean Corp Hgb Conc 32.9 g/dL (32-36); Mean Corpuscular Volume 87.6 fL (80-94); Mean Platelet Vol. 9.6 fl (6.2-12.0); NRBC Flagged by Analyzer 0 % (0-5); Platelet Count 388 K/mm3 (150-450); RBC Distribution Width CV 13.5 % (11.6-14.6); RBC Distribution Width SD 42.9 fl (35.1-43.9); Red Blood Count 4.27 M/mm3 (4.6-6.2); White Blood Count 10.7 K/mm3 (4.4-11.0)
[2025-06-14 07:47] LABS: AST(SGOT) 28 U/L (<=37); Alanine Aminotransfer ALT/SGPT 10 U/L (<=46); Albumin, Serum 4.0 g/dL (3.5-5.0); Alkaline Phosphatase 108 U/L (40-129); Anion Gap 14 (5-15); BUN 14 mg/dL (4-19); BUN/Creat Ratio 16.6 RATIO (10-20); Calcium,Total 8.8 mg/dL (7.6-11.0); Carbon Dioxide 19.1 mmol/L (21.0-32.0); Chloride 103 mmol/L (98-108); Estimated Creatinine Clearance 106.54 ml/min (50-250); Globulin 3.6 g/dL (2.2-4.2); Glucose 98 mg/dL (70-99); Potassium 3.9 mmol/L (3.3-5.1)
--- NOTE | 2025-06-14 09:04 | NURSING ---
IVAC alarming, charge nurse Nadege BENDER in to room, pt iv infiltrated, ice pack placed. pillows provided to help keep it elevated. pt denies any n/t to fingers/arm.
--- NOTE | 2025-06-14 09:08 | NURSING ---
discussion with pt regarding if he feels iv doesn't feel right to use call light for nurse to come evaluate, pt verbalizes understanding.
[2025-06-14 09:12] VITALS: BP 140/88; PULSE 99; RESP 16; TEMP 36.7; O2SAT 99
[2025-06-14] MEDS: 0.9% Saline Lock 10 ML Syringe IV ×2 (10:13→14:59)
--- NOTE | 2025-06-14 10:15 | NURSING ---
teachback on IV site and normals/abnormals and calling nurse if any changes
[2025-06-14] MEDS: 0.9% Normal Saline (250mL Bag) 250 ML 15 ML IV (14:30)
[2025-06-14 14:56] VITALS: BP 132/61; PULSE 98; RESP 16; TEMP 35.9; O2SAT 100
--- NOTE | 2025-06-14 14:59 | CASEMGMT ---
CHRIS Met with patient to complete CHRIS form. CHRIS form and its content were verbally explained and patient's questions were answered to the best of my ability.? Patient voiced understanding and signed CHRIS form.? Patient provided a copy of signed CHRIS form and original placed in patient's chart.? Patient had no further questions. Jeannette Nix, Discharge Planning Asst
--- NOTE | 2025-06-14 17:49 | DCINST_ITS ---
Discharge Instructions DC O2, CPAP, BIPAP needs Home O2 Discharge instructions: No Dressing / Incision Discharge Activity: Return to Normal Activity Weight Bearing Status: Full weight bearing Follow Up Care Test Results: Test results from this visit will be discussed in further detail at your follow- up appointment, if applicable. Discharge Plan Admission Admit Date/Time: 06/14/25 00:14 Primary Reason for Your Visit: Nausea and vomiting Attending Provider: Ron Lomas Primary Care Provider: Heena Barbosa Consulting Providers: Brenda Hollins Discharge Orders/Prescriptions Prescriptions: Continued gabapentin 100 mg capsule 200 mg PO TID (DME) Omnipod 5 G6 Intro Kit (Gen 5) Cartridge See Rx Instructions .Route Qty: 1 0RF Rx Instructions: As directed insulin lispro [Humalog U-100 Insulin] 100 unit/mL solution 50 unit continuous subcutaneous infusion .continuous Qty: 45 1RF Rx Instructions: Use subcutaneous insulin as you had been previously less otherwise instructed pantoprazole 40 mg tablet,delayed release (DR/EC) 40 mg PO BID Qty: 60 2RF buspirone 10 mg tablet 10 mg PO BID rosuvastatin 5 mg tablet 5 mg PO QHS dextroamphetamine-amphetamine 10 mg tablet 1 tab PO BID amitriptyline 50 mg tablet 50 mg PO QHS ziprasidone HCl 20 mg capsule 20 mg PO BID (DME) Omnipod 5 G6-G7 Pods (Gen 5) Cartridge See Rx Instructions .Route Qty: 10 5RF Rx Instructions: 1 pod q 72 hours (DME) Dexcom G7 Sensor Device See Rx Instructions .Route Qty: 3 5RF Rx Instructions: 1 sensor q 10 days sucralfate [Carafate] 1 gram tablet 1 g PO TID 14 Days Qty: 42 0RF (DME) pen needle, diabetic [BD Ultra-Fine Lizzeth Pen Needle] 32 gauge x 5/32 needle See Rx Instructions .Route Qty: 100 5RF Rx Instructions: 4x/day lisinopril 20 mg tablet 20 mg PO DAILY Qty: 30 6RF metoclopramide HCl [Reglan] 5 mg tablet 5 mg PO Q8H PRN PRN (Reason: nausea and vomiting) Qty: 90 2RF dicyclomine 10 mg capsule 10 mg PO TID Qty: 90 0RF Referrals / Follow Up: Heena Barbosa, LARISSA-C [Primary Care Provider] - Within 2 Weeks Disposition Disposition (needs filled in before D/C Order can be placed): Home, Self Care
--- NOTE | 2025-06-14 17:51 | PCM.DC.SUM ---
Providers Date of Admission: 06/14/25 Date of Discharge: 06/14/25 Primary Care Physician: Heena Barbosa, COMMUNICATIONS SYSTEMS ENGINEER-C Reason For Visit: INTRACTABLE N/V Diagnosis Discharge Diagnosis (1) Intractable nausea and vomiting: Status: Inactive Code(s): R11.2 - Nausea with vomiting, unspecified Plan 1. 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 #3 essential hypertension #4 chronic anxiety and depression #5 hyperlipidemia Medications at Discharge Home Medications pen needle, diabetic 32 gauge x 5/32 (BD Ultra-Fine Lizzeth Pen Needle) #100 ea 03/29/24 lisinopril 20 mg tablet 20 mg PO DAILY bp #30 tabs 05/01/24 gabapentin 100 mg capsule 200 mg PO TID pain 06/06/24 insulin pump cartridge,automated dose,BT with controller subcutaneous (Omnipod 5 G6 Intro Kit (Gen 5) subcutaneous cartridge with controller) #1 ea 07/05/24 pantoprazole 40 mg tablet,delayed release 40 mg PO BID #60 tabs 08/15/24 insulin lispro 100 unit/mL subcutaneous solution (Humalog U-100 Insulin) 50 unit (0.5 mL) continuous subcutaneous infusion .continuous #45 mL 11/22/24 buspirone 10 mg tablet 10 mg PO BID 01/18/25 rosuvastatin 5 mg tablet 5 mg PO QHS 01/18/25 metoclopramide HCl 5 mg tablet (Reglan) 5 mg PO Q8H PRN PRN nausea and vomiting #90 tabs 02/22/25 amitriptyline 50 mg tablet 50 mg PO QHS 04/19/25 blood-glucose sensor (Dexcom G7 Sensor device) #3 ea 04/19/25 dextroamphetamine-amphetamine 10 mg tablet 1 tab PO BID 04/19/25 insulin pump cart,auto,BT,G6/7 (Omnipod 5 G6-G7 Pods (Gen 5) subcutaneous cartridge) #10 ea 04/19/25 ziprasidone HCl 20 mg capsule 20 mg PO BID 04/19/25 dicyclomine 10 mg capsule 10 mg PO TID for abdominal pain #90 caps 06/01/25 sucralfate 1 gram tablet (Carafate) 1 g PO TID 2 weeks #42 tabs 06/13/25 Hospital Course Operations None Procedures None Summary of Care Provided Minutes Spent on Discharge: 45 Hospital Course: This 39-year-old black male was seen in the emergency room at [facility] with a chief complaint of intractable nausea and vomiting. He had been seen in the emergency room earlier in the day and discharged home, CT of the abdomen and pelvis had been done during that first visit in the ER and it was unremarkable. Patient was given IV Pepcid and Haldol for his symptoms with some improvement. Patient was placed under observation status on MedSurg 3 and given IV fluids and antiemetics. Patient's nausea and vomiting resolved, he was given a diet and was able to keep food down. On 06/14/2025, patient was seen and examined: On examination he appeared in good health and spirits. Vital signs as documented. Skin warm and dry and without overt rashes. Neck without JVD, neck was supple, trachea midline, thyroid was normal. Lungs clear bilaterally, normal air movement was noted. Heart exam notable for regular rhythm, normal sounds and absence of murmurs, rubs or gallops. Abdomen unremarkable and without evidence of organomegaly, masses, or abdominal aortic enlargement. Bowel sounds are present, abdomen is not distended. Extremities nonedematous, no cyanosis was noted, no clubbing was noted. Neuro: Cranial nerves II through XII are grossly intact, no focal motor deficits were noted, sensation to light touch and pinprick intact, motor exam 5/5 throughout. Psych: Patient is alert and oriented x3, he does not appear anxious or depressed, he does not appear agitated. Patient appears stable for discharge home on 06/14/2025. Weight / BMI Weight Weight: 75.1 kg Body Mass Index (BMI) 26.7 ABG / Lab / Microbiology Data 06/14/25 06:45 06/14/25 06:45 Laboratory: Laboratory Results - last 24 hr 06/14/25 06:23: POC Glucose 101 06/14/25 06:40: Phosphorus 2.2 L, Magnesium 2.1 06/14/25 06:45: WBC 10.7, RBC 4.27 L, Hgb 12.3 L, Hct 37.4 L, MCV 87.6, MCH 28.8, MCHC 32.9, RDW Std Deviation 42.9, RDW Coeff of [place] 13.5, Plt Count 388, MPV 9.6, Immature Gran % (Auto) 0.300, Neut % (Auto) 51.4, Lymph % (Auto) 35.9, Beckham % (Auto) 9.9, Eos % (Auto) 1.8, Baso % (Auto) 0.7, Absolute Neuts (auto) 5.5, Absolute Lymphs (auto) 3.85, Nucleated RBC % 0, Sodium 136, Potassium 3.9, Chloride 103, Carbon Dioxide 19.1 L, Anion Gap 14, BUN 14, Creatinine 0.84, Estim Creat Clear Calc 106.54, Est GFR (MDRD) Non-Af 114, BUN/Creatinine Ratio 16.6, Glucose 98, Calcium 8.8, Phosphorus 3.2, Total Bilirubin 0.31, AST 28, ALT 10, Alkaline Phosphatase 108, Total Protein 7.6, Albumin 4.0, Globulin 3.6, Albumin/Globulin Ratio 1.1 06/14/25 11:42: POC Glucose 155 H 06/14/25 16:31: POC Glucose 104 D/C Instructions Weight Bearing Status: Full weight bearing DC O2, CPAP, BIPAP Needs Home O2 Discharge instructions: No Meaningful Use Info Meaningful Use Meaningful Use Diagnoses (Choose all that apply): None applicable Discharge Plan Admission Admit Date/Time: 06/14/25 00:14 Primary Reason for Your Visit: Nausea and vomiting Attending Provider: Ron Lomas Primary Care Provider: Heena Barbosa Consulting Providers: Brenda Hollins Discharge Orders/Prescriptions Prescriptions: Continued gabapentin 100 mg capsule 200 mg PO TID (DME) Omnipod 5 G6 Intro Kit (Gen 5) Cartridge See Rx Instructions .Route Qty: 1 0RF Rx Instructions: As directed insulin lispro [Humalog U-100 Insulin] 100 unit/mL solution 50 unit continuous subcutaneous infusion .continuous Qty: 45 1RF Rx Instructions: Use subcutaneous insulin as you had been previously less otherwise instructed pantoprazole 40 mg tablet,delayed release (DR/EC) 40 mg PO BID Qty: 60 2RF buspirone 10 mg tablet 10 mg PO BID rosuvastatin 5 mg tablet 5 mg PO QHS dextroamphetamine-amphetamine 10 mg tablet 1 tab PO BID amitriptyline 50 mg tablet 50 mg PO QHS ziprasidone HCl 20 mg capsule 20 mg PO BID (DME) Omnipod 5 G6-G7 Pods (Gen 5) Cartridge See Rx Instructions .Route Qty: 10 5RF Rx Instructions: 1 pod q 72 hours (DME) Dexcom G7 Sensor Device See Rx Instructions .Route Qty: 3 5RF Rx Instructions: 1 sensor q 10 days sucralfate [Carafate] 1 gram tablet 1 g PO TID 14 Days Qty: 42 0RF (DME) pen needle, diabetic [BD Ultra-Fine Lizzeth Pen Needle] 32 gauge x 5/32 needle See Rx Instructions .Route Qty: 100 5RF Rx Instructions: 4x/day lisinopril 20 mg tablet 20 mg PO DAILY Qty: 30 6RF metoclopramide HCl [Reglan] 5 mg tablet 5 mg PO Q8H PRN PRN (Reason: nausea and vomiting) Qty: 90 2RF dicyclomine 10 mg capsule 10 mg PO TID Qty: 90 0RF Referrals / Follow Up: Heena Barbosa, COMMUNICATIONS SYSTEMS ENGINEER-C [Primary Care Provider] - Within 2 Weeks Disposition Disposition (needs filled in before D/C Order can be placed): Home, Self Care Charges/Coding Visit Charges OBSV E&M: 60402 Observ/hosp same date L1
== END 2025-06-14 18:01 | disposition home or self-care (01) ==
LOC: ED 23:18 → MS3 06-14 00:26
PROVIDERS: Admitting Provider Family Medicine; Emergency Provider Student in an Organized Health Care Education/Training Program; PCP Nurse Practitioner Family; Visit Provider Internal Medicine
DX: R11.2 Nausea with vomiting, unspecified (principal); F25.9 Schizoaffective disorder, unspecified; F31.9 Bipolar disorder, unspecified; Z79.4 Long term (current) use of insulin; E10.43 Type 1 diabetes mellitus with diabetic autonomic (poly)neuropathy; E10.40 Type 1 diabetes mellitus with diabetic neuropathy, unspecified; E10.65 Type 1 diabetes mellitus with hyperglycemia; Z87.891 Personal history of nicotine dependence; Z96.41 Presence of insulin pump (external) (internal); E78.5 Hyperlipidemia, unspecified; I10 Essential (primary) hypertension; R10.9 Unspecified abdominal pain; F41.9 Anxiety disorder, unspecified; Z79.899 Other long term (current) drug therapy; Z83.3 Family history of diabetes mellitus; K21.9 Gastro-esophageal reflux disease without esophagitis; G43.709 Chronic migraine without aura, not intractable, without status migrainosus; F12.90 Cannabis use, unspecified, uncomplicated; K31.84 Gastroparesis
CPT/HCPCS: 36415; 80053; 82962; 83735; 84100; 85025; 94668; 96361; 96365; 96375; 96376; 97802; 99221; 99284; A4216; G0378

== ENCOUNTER 2025-08-21 19:23 | Emergency (ER) | payer MEDICARE, MEDICAID, SELFPAY ==
[2025-08-21 19:23] VITALS: BP 143/84; PULSE 107; RESP 18; TEMP 36.8; O2SAT 99; BMI 28.3
--- NOTE | 2025-08-21 19:36 | ED.VIS.LOWEX ---
HPI History of Present Illness HPI Narrative: 39-year-old diabetic male with no prior trampoline with his son. Says his knee buckled and has had pain in the knee since that time. No prior knee history or surgery. To his right knee. He can walk on it but it is uncomfortable. This occurred around 4:00 today. Denies any pain in his hip or ankle. Denies any other injuries. Chief Complaint: Lower Extremity Injury Informant: patient Occured/Mechanism Mechanism/Context: Yes injury Onset/Context/Timing Onset: Today and Hours Context: Sudden Onset Quality of Pain: Dull and Aching Current Severity: Moderate Maximum Severity: Moderate Narrative Narrative: 39-year-old diabetic male injured his right knee jumping on trampoline today at 4 PM. No prior history or surgery to that knee. Prior similar symptoms: No Recent Illness/Hospitalization: No PFSH PFSH Medical History Presence of insulin pump Type 1 diabetes Intractable nausea and vomiting Increased nausea and vomiting Abdominal pain Dehydration High cholesterol Insulin pump titration Elevated alkaline phosphatase level Elevated AST (SGOT) Gastric ulcer Acute dehydration GERD (gastroesophageal reflux disease) Normal body mass index (BMI) Hyperlipidemia Gastroparesis Former tobacco use Cannabis use disorder Hypertension Schizophrenia Anxiety Depression Migraines Type 2 diabetes mellitus with hyperglycemia Schizo-affective schizophrenia Bipolar 1 disorder Diabetes mellitus Home Medications ?Medication ?Instructions ?Recorded ?Last Taken ?Type pen needle, diabetic 32 gauge x #100 ea 03/29/24 Unknown Rx (BD Ultra-Fine Lizzeth Pen Needle) lisinopril 20 mg tablet 20 mg PO DAILY bp #30 tabs 05/01/24 Unknown Rx gabapentin 100 mg capsule 200 mg PO TID pain 06/06/24 Unknown History insulin lispro 100 unit/mL 50 unit (0.5 mL) continuous 11/22/24 Unknown Rx subcutaneous solution (Humalog subcutaneous infusion .continuous U-100 Insulin) #45 mL buspirone 10 mg tablet 10 mg PO BID 01/18/25 Unknown History rosuvastatin 5 mg tablet 5 mg PO QHS 01/18/25 Unknown History metoclopramide HCl 5 mg tablet 5 mg PO Q8H PRN PRN nausea and 02/22/25 Unknown Rx (Reglan) vomiting #90 tabs amitriptyline 50 mg tablet 50 mg PO QHS 04/19/25 Unknown History dextroamphetamine-amphetamine 10 1 tab PO BID 04/19/25 Unknown History mg tablet ziprasidone HCl 20 mg capsule 20 mg PO BID 04/19/25 Unknown History sucralfate 1 gram tablet (Carafate) 1 g PO TID 2 weeks #42 tabs 06/13/25 Unknown Rx blood-glucose sensor (Dexcom G7 #3 ea 06/25/25 Unknown Rx Sensor device) insulin pump cart,auto,BT,G6/7 #10 ea 06/25/25 Unknown Rx (Omnipod 5 G6-G7 Pods (Gen 5) subcutaneous cartridge) pantoprazole 40 mg tablet,delayed 40 mg PO BID #60 tabs 06/28/25 Unknown Rx release dicyclomine 10 mg capsule 10 mg PO TID for abdominal pain 08/01/25 Unknown Rx #90 caps Allergy/AdvReac Type Severity Reaction Status Date / Time No Known Allergies Allergy Verified 08/21/25 19:25 Family History Mother Diabetes Sister Diabetes Father CVA (cerebral vascular accident) Myocardial infarction Surgical History H/O esophagogastroduodenoscopy No history of previous surgery Social History household members: spouse Smoking Status: Current some day smoker tobacco type: cigarettes how long ago did patient quit smoking: Quit 05/2024, prior smoked ~ 1/2 ppd. second hand exposure: No alcohol intake: former substance use type: marijuana ROS ROS ED ROS Narrative Denies recent illness. Constitutional Constitutional ED: Denies chills or fever(s) Eyes Eyes: Denies blurry vision ENT ENT ED: Denies ear pain Cardiovascular Cardiovascular: Denies chest pain Respiratory/Chest Respiratory/Chest: Denies cough or dyspnea Gastrointestinal Gastrointestinal: Denies abdominal pain Genitourinary Genitourinary ED: Denies dysuria or hematuria Musculoskeletal Musculoskeletal: Denies arthralgias Integumentary Denies abscess Neurologic Neurologic: Denies headache(s) Psychiatric Psychiatric: Denies anxiety or depression Endocrine Endocrinology: Denies polydipsia Hematologic/Lymphatic Hematologic/Lymphatic: Denies easy bleeding, easy bruising or lymphadenopathy Allergic/Immunologic Allergic/Immunologic ED: Denies mouth swelling, tongue swelling or urticaria EXAM Physical Exam Narrative Exam Narrative: Well-appearing 39-year-old male. Vital signs stable afebrile. No acute distress. and son present in the room. H EENT exam pupils round react light. Moist mutes members. Neck nontender. Trachea midline. Back nontender. Lungs clear. Heart regular rhythm rate about 105 no murmur. Chest wall ribs nontender. Abdomen soft nontender. Pelvic girdle intact. Both upper extremities left lower extremity normal regulatory affairs strategy specialist. Normal dorsi plantarflexion. Normal range of motion. Nontender no deformity. Right knee mild tenderness. Limited flexion extension due to pain. No significant swelling. No effusion. ACL and PCL are intact. MCL and LCL appear to be intact. Quadriceps patellar tendons intact. He can lift his leg off the bed. Extension is intact. Limited flexion but able to flex some due to discomfort. No gross bony deformity. Again no significant swelling. Right hip ankle and foot nontender. Neurovascular intact. Palpable DP pulse. Normal dorsi plantarflexion of the ankle. Achilles tendon intact. Able wiggle his toes. Normal touch sensation. Neurologically he is awake alert. He is answering questions following commands. Const Vital Signs: 08/21/25 19:23 Temperature 98.2 F Temperature Source Oral Pulse Rate 107 H Respiratory Rate 18 Blood Pressure 143/84 H Blood Pressure Mean 103 Pulse Ox 99 Oxygen Delivery Method Room Air MDM MDM MDM Narrative Medical decision making narrative: 39-year-old male injured his right knee jumping on a trampoline. Knee sprain versus other etiologies. X-ray will be obtained. Currently there is no significant swelling or effusion. Mobic given Motrin for pain. Repeat exam unchanged. Right foot neurovascularly intact. Normal touch sensation. Normal DP pulse. Able to wiggle his toes. Knee still no significant swelling or effusion. We discussed his x-ray. Crutches. Ice. Motrin Tylenol. If not improving follow-up with orthopedics. History & Record Review Discussion w/independent historian: Patient Additional record(s) reviewed:: Prior inpatient record, Prior outpatient record, Prior ED visit and Prior labs Radiography Diagnostic Testing: Clinical Impression(s) from Imaging Studies Knee X-Ray 08/21/25 19:40 IMPRESSION: No acute fracture or dislocation. Reading Location: [facility] Right knee x-ray, 4 views, interpreted by myself and the radiologist shows no acute abnormality. No fracture. No dislocation. No significant swelling or effusion. I did go over the x-rays with the patient and family. Discharge Plan Triage Chief Complaint: Lower Extremity Injury ED Provider: Scout Ramos Dx/Rx/DC Orders Clinical Impression: Right knee sprain, History of diabetes mellitus Instructions: ED Knee Sprain Prescriptions: No Action gabapentin 100 mg capsule 200 mg PO TID insulin lispro [Humalog U-100 Insulin] 100 unit/mL solution 50 unit continuous subcutaneous infusion .continuous Qty: 45 1RF Rx Instructions: Use subcutaneous insulin as you had been previously less otherwise instructed buspirone 10 mg tablet 10 mg PO BID rosuvastatin 5 mg tablet 5 mg PO QHS dextroamphetamine-amphetamine 10 mg tablet 1 tab PO BID amitriptyline 50 mg tablet 50 mg PO QHS ziprasidone HCl 20 mg capsule 20 mg PO BID sucralfate [Carafate] 1 gram tablet 1 g PO TID 14 Days Qty: 42 0RF (DME) pen needle, diabetic [BD Ultra-Fine Lizzeth Pen Needle] 32 gauge x 5/32 needle See Rx Instructions .Route Qty: 100 5RF Rx Instructions: 4x/day lisinopril 20 mg tablet 20 mg PO DAILY Qty: 30 6RF metoclopramide HCl [Reglan] 5 mg tablet 5 mg PO Q8H PRN PRN (Reason: nausea and vomiting) Qty: 90 2RF (DME) Omnipod 5 G6-G7 Pods (Gen 5) Cartridge See Rx Instructions .Route Qty: 10 5RF Rx Instructions: 1 pod q 72 hours (DME) Dexcom G7 Sensor Device See Rx Instructions .Route Qty: 3 5RF Rx Instructions: 1 sensor q 10 days pantoprazole 40 mg tablet,delayed release (DR/EC) 40 mg PO BID Qty: 60 2RF dicyclomine 10 mg capsule 10 mg PO TID Qty: 90 0RF Primary Care Provider: Heena Barbosa Referrals: Louis Benoit MD [Med Staff - Active Staff, Orthopedics] - 10-14 Days if not better Heena Barbosa, OBSTETRICS AND GYNECOLOGY PROFESSOR-C [Primary Care Provider, Medical] Activity Restrictions/Additional Instructions: Your knee x-rays look good. Ice to your knee to decrease pain and swelling. Motrin for pain and swelling and Tylenol for pain. Slowly increase activity and weightbearing as tolerated. Right now recalling this a knee sprain. The x-rays look good but remember the x-rays did not show injuries to cartilage, ligaments or tendons. If this is not improving in 1 to 2 weeks follow-up with a local orthopedic doctor. Print Language: Serbian Disposition Disposition: Home, Self Care
--- NOTE | 2025-08-21 19:40 | RAD_ITS ---
PROCEDURE: RIGHT KNEE 4 OR MORE VIEWS 08/21/2025 REASON FOR EXAM: INJURY TECHNIQUE: Procedure Code: RADKN Modality: DX Procedure: KNEE 4 OR MORE VIEWS Laterality: Right COMPARISON: None. FINDINGS: No acute fracture or dislocation. Alignment is anatomic. Preserved joint spaces. No joint effusion. No aggressive osseous lesion. No marked soft tissue swelling or radiopaque foreign body. RAD/Knee 4 or More Views IMPRESSION: No acute fracture or dislocation. Reading Location: [id number]
== END 2025-08-21 20:33 | disposition home or self-care (01) ==
PROVIDERS: Emergency Provider Emergency Medicine; PCP Nurse Practitioner Family; Visit Provider Emergency Medicine
DX: S83.91XA Sprain of unspecified site of right knee, initial encounter (principal); E10.9 Type 1 diabetes mellitus without complications; Z79.4 Long term (current) use of insulin; X58.XXXA Exposure to other specified factors, initial encounter; Y93.44 Activity, trampolining; I10 Essential (primary) hypertension; E78.00 Pure hypercholesterolemia, unspecified; F17.210 Nicotine dependence, cigarettes, uncomplicated; Z96.41 Presence of insulin pump (external) (internal); Z79.899 Other long term (current) drug therapy
CPT/HCPCS: 73564; 99283